=== PATIENT | female | born 1970 | race Caucasian/White ===

== ENCOUNTER 2023-06-21 22:02 | Emergency (ER) | payer BC, SELFPAY ==
--- NOTE | ~2023-06-21 | XR_ITS ---
XR chest 2V 06/21/2023 22:21 Indication: Shortness of breath. Procedure: 2 view chest Comparison: No prior studies for comparison. Findings: Bibasilar atelectasis. No focal pneumonia, edema, pleural effusion or pneumothorax. No acut e osseous abnormality. Impression: 1: Bibasilar atelectasis. Reviewed, dictated and finalized at location A. Impression: 1: Bibasilar atelectasis.
--- NOTE | ~2023-06-21 | CT_ITS ---
EXAMINATION: CT abdomen pelvis w con DATE: 06/22/2023 00:48 INDICATION: Diffuse abdominal pain TECHNIQUE: Computed tomography (CT) of the abdomen and pelvis was performed without intravenous contr ast. The dose-length product was 1362.22 mGy-cm. Automated exposure control and iterative reconstruct ion technique were employed. COMPARISON: None. FINDINGS: Lung bases unremarkable. Heart size normal. There is cirrhosis of the liver. There is ascit es. Status post cholecystectomy. There is a small fluid in fat-containing umbilical hernia containing fluid. The pancreas, adrenal glands and right kidney are unremarkable. There is nonobstructing left nephroli thiasis. No hydronephrosis. Mild diffuse subcutaneous edema. Mild retroperitoneal lymphadenopathy, li courtney reactive. There are multiple collateral vessels in the upper abdomen, consistent with portal hyp ertension, there is splenomegaly. IMPRESSION: 1. Cirrhosis with portal hypertension. 2: Large amount of ascites with diffuse subcutaneous edema. Reviewed, dictated and finalized at location A.
--- NOTE | 2023-06-21 22:03 | ECG_ITS ---
Measurements Intervals [place] Rate: 105 P: 53 MI: 186 QRS: -55 QRSD: 104 T: 58 QT: 383 QTc: 507 Interpretive Statements SINUS TACHYCARDIA LEFT ANTERIOR FASCICULAR BLOCK BASELINE WANDER- V6 ABNORMAL ECG NO PREVIOUS ECG AVAILABLE FOR COMPARISON Electronically Signed On 06-22-2023 7:39:42 CDT by Glen Woodruff D.O.
[2023-06-21 22:04] VITALS: BP 141/86; PULSE 118; RESP 22; TEMP 36.9; O2SAT 95
[2023-06-21 22:16] LABS: Basophils Absolute Auto 0.1 K/mm3 (0.0-0.1); Basophils Percent Auto 0.6 % (0.2-1.2); Eosinophils Absolute Auto 0.2 K/mm3 (0-0.3); Eosinophils Percent Auto 1.6 % (0-4.4); Hematocrit 36.3 % (37.0-47.0); Hemoglobin 11.6 g/dL (12.0-15.0); Immature Granulocyte Absolute 0.09 K/mm3 (0.00-0.031); Immature Granulocyte Percent A 0.7 % (0-0.5); Immature Platelet Fraction Pct 3.1 % (0.9-11.2); Lymphocytes Absolute Auto 1.86 K/mm3 (0.9-3.2); Lymphocytes Percent Auto 13.9 % (18.3-44.2); Mean Corpuscular Hemoglobin 35.7 pg (26-34); Mean Corpuscular Volume 111.7 fl (80-100); Mean Platelet Volume 9.8 fl (7.4-10.4); Monocytes Absolute Auto 2.1 K/mm3 (0.1-0.6); Monocytes Percent Auto 15.6 % (2.6-8.5); Neutrophils Percent Auto 67.6 % (45.5-73.1); Platelet Count Result 97 k/mm3 (150-375); Red Blood Count 3.25 M/mm3 (4.2-5.4); Red Cell Distribution Width 16.5 % (11.5-14.5); White Blood Count 13.4 K/mm3 (4.5-10.0)
[2023-06-21 22:25] LABS: Alanine Aminotransferase 38 U/L (6-35); Albumin Level 3.2 g/dL (3.5-5.1); Alkaline Phosphatase 127 U/L (38-126); Anion Gap 5 mmol/L (8-16); Aspartate Amino Transferase 67 U/L (14-36); Blood Urea Nitrogen 16 mg/dL (7-17); Calcium 8.5 mg/dL (8.4-10.2); Carbon Dioxide 29 mmol/L (22-30); Chloride 101 mmol/L (98-107); Estimated CRCL calculation 120 ml/min; Estimated Glomerular Filt Rate > 60; Glucose 126 mg/dL (65-110); Lipase 172 U/L (23-300); Potassium 3.1 mmol/L (3.4-5.0); Sodium 135 mmol/L (137-145)
[2023-06-21 22:32] LABS: Hypochromasia 1+; Platelet Estimate Decreased (Adequate)
[2023-06-21 22:33] LABS: Anisocytosis 1+; Schistocytes None Seen
[2023-06-21 22:50] LABS: Influenza A QL RT-PCR Negative (Negative); Influenza B QL RT-PCR Negative (Negative); RSV RNA, RT-PCR Negative (Negative); SARS-CoV-2 RNA PCR Negative (Negative)
[2023-06-22] MEDS: MORPHINE SULFATE (*CRX) 4 MG/ML INJ IV PUSH ×2 (00:20→02:27)
[2023-06-22] MEDS: ONDANSETRON INJ 4 MG/2 ML VIAL IV PUSH (00:20)
[2023-06-22 02:36] LABS: Appearance Peritoneal Fluid Clear (Clear); Color Peritoneal Fluid Yellow (Colorless); Nucleated Cells Peritoneal Flu 151 /uL (0-500); Source Peritoneal Fluid Peritoneal Fluid
[2023-06-22 02:37] LABS: RBC Peritoneal Fluid < 2000 /uL (0-100000)
--- NOTE | 2023-06-22 02:51 | ED.ABDPAIN ---
HPI - Abdominal Pain General Chief Complaint: Shortness of Breath/Dyspnea Stated Complaint: SOB, abd pain Time Seen by Provider: 06/21/23 23:42 History of Present Illness HPI narrative: This is a 53-year-old female, with history of BACON cirrhosis, who presents to the emergency department complaining of diffuse burning abdominal pain. The patient states has been going on for the past 2 days and is associated with gradual expansion of her abdomen and difficulty taking a deep breath. The patient denies associated fevers, rash or bleeding. Related Data Allergies Allergy/AdvReac Type Severity Reaction Status Date / Time amoxicillin Allergy Hives Verified 06/21/23 22:07 Review of Systems Review of Systems: CONSTITUTIONAL: Denies fever, chills, or sweats. CARDIOVASCULAR: Denies chest pain, palpitations, or edema. RESPIRATORY: Denies cough or dyspnea. GASTROINTESTINAL: Abdominal pain Denies nausea, vomiting, or diarrhea. GENITOURINARY: Denies dysuria or hematuria. SKIN: Denies rash or itching. MUSCULOSKELETAL: Denies back pain, joint pain, or myalgia. NEUROLOGIC: Denies headache, numbness, dizziness, or weakness. PSYCHIATRIC: Denies anxiety or depression. 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 Mildly jaundiced HEAD: Normocephalic, atraumatic. EYES: PERRLA and EOMI. Scleral icterus CHEST: Clear to auscultation. No respiratory distress. No wheezes rales or rhonchi HEART: Regular rate and rhythm. No murmur heard. Normal peripheral pulses. ABDOMEN: Soft, diffuse mild tenderness to palpation, without rebound or guarding, distended with a fluid wave, normal active bowel sounds. EXTREMITIES: Normal range of motion. No edema. SKIN: Warm, dry, no rash. NEURO: Alert and oriented x3. No focal deficit. Moving all 4 limbs spontaneously PSYCH: Normal mood and affect. Procedures Paracentesis Paracentesis #1: Paracentesis Date: 06/22/23 Paracentesis Time: 02:10 Time Out Performed: Yes Local Anesthetic: lidocaine 1% Amount of anesthesia used (mL): 10 Fluid: clear and sent to lab for analysis Post Procedure Exam: awake, alert and normal BP Patient Tolerated Procedure: well and no complications Complications: none Paracentesis Comment: Ultrasound was used to find a suitable pocket of fluid prior to beginning the procedure. Paracentesis #2: Paracentesis Date: 06/22/23 Paracentesis Time: 06:15 Time Out Performed: Yes Local Anesthetic: lidocaine 2% Amount of anesthesia used (mL): 10 Fluid: clear Post Procedure Exam: awake, alert and normal BP Patient Tolerated Procedure: well and no complications Complications: none Paracentesis Comment: Ultrasound was used to find a suitable pocket of fluid prior to beginning the procedure. Course Course Emergency Course: 06:27 - White blood cell count elevated at 13.4. Hemoglobin 11.6 with an unknown baseline. Platelets 97. Chemistries demonstrate mild hypokalemia with potassium of 3.1 and AST/ALT elevation of 67/38 but otherwise unremarkable. Patient tested negative for influenza, RSV and COVID. A diagnostic paracentesis was performed that was converted to a therapeutic paracentesis. Cell count was not concerning for SBP. Approximately 3700 mL of straw-colored peritoneal fluid were drained from the patient's abdomen with improvement of her symptoms. CT abdomen pelvis by STAT Rad interpretation dem
[2023-06-22 02:54] LABS: Lymphocytes Peritoneal Fluid 42 %; Macrophages Peritoneal Fluid 41 %; Mesothelial Cells Peritoneal Fluid 7 %; Neutrophils Peritoneal Fluid 10 % (0-25)
[2023-06-22 02:57] VITALS: BP 136/66; PULSE 95; RESP 16; O2SAT 93
[2023-06-22] MEDS: MORPHINE SULFATE (*CRX) 2 MG/ML INJ IV PUSH (04:50)
[2023-06-22] MEDS: ALBUMIN HUMAN 25% 12.5 GM/50ML 50 ML IVPB (06:38)
[2023-06-22 06:41] VITALS: BP 122/64; PULSE 78; RESP 15; O2SAT 95
[2023-06-22 07:32] VITALS: BP 142/80; PULSE 88; RESP 16; O2SAT 94
[2023-06-27 17:22] LABS: Lipase Peritoneal Fluid 14 U/L (<10)
[2023-06-29 22:43] LABS: Glucose Peritoneal Fluid 127 mg/dL; Total Protein Peritoneal Fluid <3.0 g/dL
== END 2023-06-22 07:33 | disposition home or self-care (01) ==
PROVIDERS: Emergency Provider Preventive Medicine Aerospace Medicine
DX: R18.8 Other ascites (principal); E87.6 Hypokalemia; R10.84 Generalized abdominal pain; Z20.822 Contact with and (suspected) exposure to COVID-19; K74.60 Unspecified cirrhosis of liver; K75.81 Nonalcoholic steatohepatitis (NASH); F17.200 Nicotine dependence, unspecified, uncomplicated
CPT/HCPCS: 36415; 49083; 71046; 74177; 80053; 82945; 83690; 84157; 85025; 85055; 87040; 87070; 87075; 87205; 87637; 89051; 93005; 96365; 96367; 96375; 96376; 99284; J0696; J2270; J2405; P9047; Q9967

== ENCOUNTER 2023-06-24 12:50 | Emergency (ER) | payer BC, SELFPAY ==
--- NOTE | ~2023-06-24 | CT_ITS ---
EXAMINATION: CT abdomen pelvis w con DATE: 06/24/2023 14:51 INDICATION: Constipation TECHNIQUE: Computed tomography (CT) of the abdomen and pelvis was performed with 100 mL Omnipaque-350 intravenous contrast. Automated exposure control and iterative reconstruction technique were employe d. The dose-length product was 1334.91 mGy-cm. COMPARISON: 06/22/2023 FINDINGS: Dependent atelectasis in the bilateral lower lobes. Heart size is normal. No pericardial or pleural e ffusion. Cholecystectomy clips the gallbladder fossa. There is a nodular liver surface consistent wit h cirrhosis. Splenomegaly along with recanalized umbilical vein and gastrosplenic and paraesophageal varices consistent with secondary portal venous hypertension. Moderate to large amount of ascites sca ttered throughout the abdomen and pelvis. Pancreas, bilateral adrenal glands and right kidney are nor mal. 7 mm nonobstructing stone at the upper pole of the left kidney. Bladder is normal. The uterus is not identified and has likely been surgically resected. Bilateral adnexa are unremarkable. No bowel obstruction. Normal gas-filled appendix. There is edematous wall thickening in the proximal colon whi ch could be due to hepatic colopathy or colitis. No bowel obstruction. Mild lumbar dextrocurvature. M oderate lower thoracic and mild to moderate lumbar spondylosis. A few scattered sclerotic bone island s in the pelvis and proximal femurs. IMPRESSION: 1. Cirrhosis moderate to large amount of likely secondary ascites and with splenomegaly and portosyst emic collaterals consistent with secondary portal venous hypertension. 2. Edematous wall thickening in the proximal colon most likely hepatic colopathy although differentia l includes colitis which could be either infectious, inflammatory or less likely ischemic in etiology . 2. Nonobstructing 7 mm left renal stone. Reviewed, dictated and finalized at location A. IMPRESSION: 1. Cirrhosis moderate to large amount of likely secondary ascites and with sple nomegaly and portosystemic collaterals consistent with secondary portal venous hypertension. 2. Edematous wall thickening in the proximal colon most likely hepatic colopath y although differential includes colitis which could be either infectious, infl ammatory or less likely ischemic in etiology. 2. Nonobstructing 7 mm left renal stone.
[2023-06-24 12:52] VITALS: BP 142/64; PULSE 99; RESP 20; TEMP 36.4; O2SAT 94
--- NOTE | 2023-06-24 12:56 | ED.ABDPAIN ---
HPI - Abdominal Pain General Chief Complaint: Abdominal Pain <Sandra Carlisle PA-C - Last Filed: 06/24/23 18:17> Stated Complaint: abd/back pain <Sandra Carlisle PA-C - Last Filed: 06/24/23 18:17> Time Seen by Provider: 06/24/23 12:50 <Sandra Carlisle PA-C - Last Filed: 06/24/23 18:17> Focused HPI: This is a 53-year-old female that presents to the ER for abdominal pain. Reports lower abdominal discomfort which has been going on for several months. Reports she has been having difficulty urinating and having bowel movements. Also reports she has had worsening swelling in her lower extremities. She does take diuretics for this. Denies chest pain or shortness of breath. GENERAL: Well-appearing, well-nourished, and in no acute distress. HEAD: Normocephalic, atraumatic. CHEST: Clear to auscultation. ?No respiratory distress. HEART: Regular rate and rhythm.? NEURO: ?Alert and oriented x3. EXTREMITIES: 1+ pitting edema to the bilateral lower extremities Patient screened in triage and initial orders placed.? ?Additional care and disposition to be based upon?diagnostic testing and treatment. <Sandra Carlisle PA-C - Last Filed: 06/24/23 18:17> History of Present Illness HPI narrative: 53-year-old female presenting emergency department for evaluation of abdominal pain. <Nelson Lowe MD - Last Filed: 06/24/23 19:23> Related Data Allergies/Adverse Reactions: Allergies Allergy/AdvReac Type Severity Reaction Status Date / Time amoxicillin Allergy Hives Verified 06/24/23 15:41 <Sandra Carlisle PA-C - Last Filed: 06/24/23 18:17> Review of Systems Review of Systems: CONSTITUTIONAL: Denies fever CARDIOVASCULAR: Denies chest pain RESPIRATORY: Denies dyspnea. GASTROINTESTINAL: Reports abdominal pain. Denies nausea, vomiting, or diarrhea. GENITOURINARY: Denies dysuria <Sandra Carlisle PA-C - Last Filed: 06/24/23 18:17> All systems reviewed & are unremarkable except as noted in HPI and below <Sandra Carlisle PA-C - Last Filed: 06/24/23 18:17> 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 HEAD: normocephalic, atraumatic. EYES: PERRLA/EOMI, conjunctivae clear. NOSE: Normal no drainage EARS:TMS clear with good light reflex. THROAT: Pharynx clear, no exudate. NECK: Supple. No adenopathy, no masses. RESPIRATORY: Airway patent, respirations nonlabored. Clear to auscultation bilaterally, no rales, rhonchi, wheezing. CARDIOVASCULAR: Regular rate and rhythm without murmurs rubs or gallops. ABDOMINAL: Soft, Ascites, normal bowel sounds, nontender MUSCULOSKELETAL: Moves all extremities. Strength/ROM intact, No edema, No calf tenderness. NEURO: Alert. Cranial nerves II through XII intact. grossly intact SKIN: Warm, dry. Normal Color <Nelson Lowe MD - Last Filed: 06/24/23 19:23> Course Course Emergency Course: patient was discharged home with antibiotics for treatment for colitis. <Nelson Lowe MD - Last Filed: 06/24/23 19:23> Vital Signs Vital signs: Vital Signs Temperature 97.6 F 06/24/23 12:52 Pulse Rate 99 06/24/23 12:52 Respiratory Rate 20 06/24/23 12:52 Blood Pressure 142/64 H 06/24/23 12:52 Pulse Oximetry 94 06/24/23 12:52 Oxyge
[2023-06-24 13:41] LABS: Alanine Aminotransferase 34 U/L (6-35); Albumin Level 3.2 g/dL (3.5-5.1); Alkaline Phosphatase 125 U/L (38-126); Anion Gap 5 mmol/L (4-12); Aspartate Amino Transferase 64 U/L (14-36); Bilirubin,Total 5.7 mg/dL (0.2-1.3); Blood Urea Nitrogen 11 mg/dL (7-17); Calcium 8.4 mg/dL (8.4-10.2); Carbon Dioxide 27 mmol/L (22-30); Chloride 101 mmol/L (98-107); Estimated CRCL calculation 143 ml/min; Estimated Glomerular Filt Rate > 60; Glucose 145 mg/dL (65-110); Lipase 171 U/L (23-300); Potassium 3.3 mmol/L (3.4-5.0); Sodium 133 mmol/L (137-145)
[2023-06-24 13:50] LABS: NT Pro B Type Natriuretic Pept 252 pg/mL (19.9-100)
[2023-06-24 14:03] LABS: Basophils Absolute Auto 0.1 K/mm3 (0.0-0.1); Basophils Percent Auto 0.8 % (0.2-1.2); Eosinophils Absolute Auto 0.2 K/mm3 (0-0.3); Hematocrit 35.9 % (37.0-47.0); Hemoglobin 11.4 g/dL (12.0-15.0); Immature Granulocyte Absolute 0.05 K/mm3 (0.00-0.031); Immature Granulocyte Percent A 0.5 % (0-0.5); Immature Platelet Fraction Pct 5.8 % (0.9-11.2); Lymphocytes Absolute Auto 1.36 K/mm3 (0.9-3.2); Lymphocytes Percent Auto 13.7 % (18.3-44.2); Mean Corpuscular HGB Conc 31.8 g/dl (32-36); Mean Corpuscular Hemoglobin 35.6 pg (26-34); Mean Corpuscular Volume 112.2 fl (80-100); Mean Platelet Volume 9.9 fl (7.4-10.4); Monocytes Absolute Auto 1.3 K/mm3 (0.1-0.6); Monocytes Percent Auto 13.4 % (2.6-8.5); Neutrophils Absolute Auto 6.9 K/mm3 (1.3-6.7); Neutrophils Percent Auto 69.6 % (45.5-73.1); Platelet Count Result 90 k/mm3 (150-375); Red Cell Distribution Width 16.9 % (11.5-14.5); White Blood Count 9.9 K/mm3 (4.5-10.0)
[2023-06-24 14:16] LABS: INR 1.6; Prothrombin Time 20.4 Seconds (11.1-14.7)
[2023-06-24 14:17] LABS: Partial Thromboplastin Time 38.5 Seconds (22.3-36.8)
[2023-06-24 15:17] LABS: Bacteria Urine Rare /hpf; Mucus Urine Present /lpf; Squamous Epithelial Cell Urine Many /hpf (Few); WBC Urine 0-5 /hpf (0-3)
[2023-06-24 15:20] LABS: Appearance Urine Sl Cloudy (Clear); Color Urine Orange (Yellow); pH Urine 5.5 (5.0-9.0)
[2023-06-24 15:21] LABS: Bilirubin Urine 2+ (Negative); Blood Urine 2+ (Negative); Glucose Urine UA Trace mg/dL (Negative); Ketones Urine Trace mg/dL (Negative); Nitrate Urine Positive (Negative); Protein Urine 1+ mg/dL (Negative); Specific Grav Ur 1.025 (1.001-1.035)
[2023-06-24 15:22] LABS: Add Urine Microscopic? YES; Leukocyte Esterase Ur Negative LEU/UL (Negative)
[2023-06-24] MEDS: HYDROmorphone HCL INJ (*CRX) 1 MG/ML SYR 0.5 MG IV PUSH (15:41)
[2023-06-24] MEDS: CIPROFLOXACIN 500 MG TAB PO (15:42)
[2023-06-24] MEDS: metroNIDAZOLE 500 MG TABLET PO (15:42)
[2023-06-24 16:10] VITALS: BP 128/62; PULSE 87; RESP 18; O2SAT 94
== END 2023-06-24 16:13 | disposition home or self-care (01) ==
LOC: ANHED 15:37
PROVIDERS: Physician Assistant; Emergency Provider Emergency Medicine
DX: R18.8 Other ascites (principal); K52.9 Noninfective gastroenteritis and colitis, unspecified; K74.69 Other cirrhosis of liver
CPT/HCPCS: 36415; 74177; 80053; 81001; 83690; 83880; 85025; 85055; 85610; 85730; 96374; 99284; A9270; J1170; Q9967

== ENCOUNTER 2023-06-26 17:52 | Inpatient (IN) | payer BC, SELFPAY ==
--- NOTE | ~2023-06-26 | US_ITS ---
EXAMINATION: US paracentesis abd w/image DATE: 07/02/2023 14:10 INDICATION: Ascites. TECHNIQUE: The procedure and its risks, benefits, and alternatives were discussed with the patient. P otential risks discussed included bleeding and infection. The skin was prepped and draped in sterile fashion. 1% lidocaine was used for local anesthesia. Under ultrasound guidance, a 5 Fr catheter with trochar was advanced into the ascites in the right lower quadrant. Fluid was aspirated. The catheter was removed, and a dressing was applied. There were no immediate complications. FINDINGS: Ultrasound images demonstrate ascites and the catheter within the fluid. IMPRESSION: 1. Successful ultrasound-guided paracentesis yielding 4650 mL of yellow fluid. Reviewed, dictated and finalized at location A.
--- NOTE | ~2023-06-26 | US_ITS ---
EXAMINATION: US paracentesis abd w/image DATE: 06/27/2023 16:50 INDICATION: Ascites. TECHNIQUE: The procedure and its risks, benefits, and alternatives were discussed with the patient. P otential risks discussed included bleeding and infection. The skin was prepped and draped in sterile fashion. 1% lidocaine was used for local anesthesia. Under ultrasound guidance, a 5 Fr catheter with trochar was advanced into the ascites in the right lower quadrant. Fluid was aspirated. The catheter was removed, and a dressing was applied. There were no immediate complications. FINDINGS: Ultrasound images demonstrate ascites and the catheter within the fluid. IMPRESSION: 1. Successful ultrasound-guided paracentesis yielding 3900 mL of yellow fluid. Reviewed, dictated and finalized at location A.
--- NOTE | ~2023-06-26 | CT_ITS ---
EXAMINATION: CT abdomen pelvis w con DATE: 06/26/2023 20:47 INDICATION: abdominal distention, ascites TECHNIQUE: Computed tomography (CT) of the abdomen and pelvis was performed with 100 mL Omnipaque-350 intravenous contrast. Automated exposure control and iterative reconstruction technique were employe d. The dose-length product was 1430.85 mGy-cm. COMPARISON: 06/24/2023. FINDINGS: Lower thorax: Unremarkable Liver: Nodular liver border. Biliary/Gallbladder: Gallbladder is absent. No bile duct dilation. Pancreas: No mass or duct dilation. Spleen: Enlarged. Adrenals:No mass. Kidneys: No suspicious mass, obstructing stone, or hydronephrosis. 7 mm nonobstructing left upper akash e calcification. GI tract: No small or large bowel dilation. Normal appendix. Diverticulosis without diverticulitis. Mesentery/Peritoneum: Moderate volume simple ascitic fluid. Upper abdominal varices. Retroperitoneum: No mass. Pelvis: Empty urinary bladder. Absent uterus. Normal bilateral ovaries.. Soft Tissues: Body wall edema. Bones: No acute osseous finding. IMPRESSION: Cirrhosis with portal hypertension. Moderate ascites. Interval resolution of the proximal colonic wal l edema. No new acute finding detected. Reviewed, dictated and finalized at location K. IMPRESSION: Cirrhosis with portal hypertension. Moderate ascites. Interval resolution of th e proximal colonic wall edema. No new acute finding detected.
--- NOTE | ~2023-06-26 | CT_ITS ---
EXAMINATION: CTA chest PE protocol DATE: 07/11/2023 09:49 INDICATION: Hypoxia. TECHNIQUE: Computed tomography angiography (CTA) of the chest was performed with 200 mL Omnipaque-350 intravenous contrast timed to evaluate the pulmonary arteries. Coronal maximum intensity projection 3D-reconstructions were created by the technologist. Automated exposure control and iterative reconst ruction technique were employed. The dose-length product was 1544.05 mGy-cm. COMPARISON: CT abdomen and pelvis 07/01/2023 FINDINGS: The lungs demonstrate mild atelectasis. There is smooth septal thickening in the inferior l ungs. There are patchy ground glass opacities in the lower lobes, right middle lobe, and lingula. No pleural effusion. The heart size is normal. No pericardial effusion. There is no pulmonary embolus. T here is mild mediastinal lymphadenopathy. There is a 2.0 cm nodule in left thyroid lobe. The liver de monstrates surface nodularity and hypertrophy of left lateral segment, consistent with cirrhosis. The re are changes of cholecystectomy. Paraesophageal varices are noted. There are is a paraumbilical por tacaval shunt. Ascites is noted. There is mild chronic anterior wedging of multiple thoracic vertebra l bodies. There is moderate thoracic spondylosis. IMPRESSION: 1. No pulmonary embolus. 2. Worsened diffuse lung disease, likely moderate pulmonary edema. Pneumonia cannot be excluded. 3. Cirrhosis of the liver with portal venous hypertension. 4. Ascites. 5. Mild mediastinal lymphadenopathy, likely reactive. 6. Thyroid nodule. Consider thyroid ultrasound for risk stratification. Reviewed, dictated and finalized at location A. IMPRESSION: 1. No pulmonary embolus. 2. Worsened diffuse lung disease, likely moderate pulmonary edema. Pneumonia ca nnot be excluded. 3. Cirrhosis of the liver with portal venous hypertension. 4. Ascites. 5. Mild mediastinal lymphadenopathy, likely reactive. 6. Thyroid nodule. Consider thyroid ultrasound for risk stratification.
--- NOTE | ~2023-06-26 | XR_ITS ---
XR chest 2V 07/10/2023 18:26 Indication: Hypoxia Procedure: PA and lateral views of the chest Comparison: Chest dated 07/05/2023 Findings: Cardiomegaly. Mild interstitial edema. Small pleural effusions. No pneumothorax. Impression: 1: Mild interstitial edema with small pleural effusions. Reviewed, dictated and finalized at location A. Impression: 1: Mild interstitial edema with small pleural effusions.
--- NOTE | ~2023-06-26 | US_ITS ---
EXAMINATION: US venous doppler [facility] DATE: 07/06/2023 12:20 INDICATION: swelling . TECHNIQUE: Grayscale images without and with compression and Doppler images of the bilateral lower ex tremity veins were obtained. COMPARISON: None FINDINGS: The right common femoral vein, profunda (deep) femoral vein, femoral vein, popliteal vein, peroneal v ein, posterior tibial veins, gastrocnemius vein, and greater saphenous vein are patent. Patient unable to tolerate transducer pressure over the left profunda (deep) femoral vein and left fe moral vein, no visible thrombus or abnormality on color Doppler in these vessels. The left common fem oral vein, popliteal vein, peroneal vein, posterior tibial veins, gastrocnemius vein, and greater sap henous vein are patent. IMPRESSION: Limited evaluation of the left profunda femoral and femoral veins. Otherwise patent bilateral lower e xtremity veins. Reviewed, dictated and finalized at location K. IMPRESSION: Limited evaluation of the left profunda femoral and femoral veins. Otherwise pa tent bilateral lower extremity veins.
--- NOTE | ~2023-06-26 | CT_ITS ---
EXAMINATION: CT abdomen pelvis w con DATE: 07/01/2023 13:28 INDICATION: Ascites. TECHNIQUE: Computed tomography (CT) of the abdomen and pelvis was performed with 100 mL Omnipaque 350 intravenous contrast. Automated exposure control and iterative reconstruction technique were employe d. The dose-length product was 1350.00 mGy-cm. COMPARISON: CT abdomen pelvis 06/26/2023 FINDINGS: The visualized portions of the lung bases demonstrate mild atelectasis. There is smooth sep jeanine thickening bilaterally, consistent mild pulmonary edema. No pleural effusion. The heart size is n ormal. No pericardial effusion. Paraesophageal varices are noted. The liver demonstrates hypertrophy of left lateral segment and surface nodularity, consistent with cirrhosis. There is a paraumbilical p ortacaval shunt. The spleen is mildly enlarged. There are changes of cholecystectomy. The pancreas, a drenal glands, and right kidney are normal. There is a parenchymal calcification in left kidney with focal cortical thinning. There are no dilated loops of bowel. The appendix is normal. There is a larg e volume of ascites. There is an umbilical hernia containing ascites. There is mild periportal lympha denopathy, likely reactive. Body wall edema is noted. There is moderate thoracic and lumbar spondylos is. IMPRESSION: 1. Cirrhosis of the liver with portal venous hypertension. 2. Large volume of ascites. 3. Mild pulmonary edema. 4. Umbilical hernia containing ascites. 5. Mild periportal lymphadenopathy, likely reactive. Reviewed, dictated and finalized at location A.
--- NOTE | ~2023-06-26 | XR_ITS ---
EXAMINATION: XR chest 1V portable DATE: 07/13/2023 05:29 INDICATION: Pulmonary edema TECHNIQUE: frontal view of the chest was obtained. COMPARISON: Chest radiograph dated 07/10/2023 FINDINGS: Persistent mild increased interstitial pattern and some peribronchial cuffing in the bilateral mid to lower lung zones consistent with mild pulmonary edema. No pleural effusion or pneumothorax. Heart si ze is normal. IMPRESSION: 1. Mild pulmonary edema versus less likely pneumonia in the bilateral mid and lower lung zones. Reviewed, dictated and finalized at location A. IMPRESSION: 1. Mild pulmonary edema versus less likely pneumonia in the bilateral mid and l ower lung zones.
--- NOTE | ~2023-06-26 | XR_ITS ---
EXAMINATION: XR chest 1V portable Exam Date/Time: 07/05/2023 13:35 CDT HISTORY: Cough fever Comparison: 06/22/2023. RESULT: Lines, tubes, and devices: None. Lungs and pleura: Moderate diffuse reticulonodular opacities. Streaky bibasilar scar/atelectasis. Cardiomediastinal silhouette: Stable. Other: No acute osseous or upper abdominal finding. IMPRESSION: Pulmonary opacities may represent moderate interstitial edema or respiratory bronchiolitis. Reviewed, dictated and finalized at location K. IMPRESSION: Pulmonary opacities may represent moderate interstitial edema or respiratory br onchiolitis.
--- NOTE | ~2023-06-26 | US_ITS ---
EXAMINATION: US paracentesis abd w/image DATE: 07/09/2023 11:29 INDICATION: Ascites. TECHNIQUE: The procedure and its risks, benefits, and alternatives were discussed with the patient. P otential risks discussed included bleeding and infection. The skin was prepped and draped in sterile fashion. 1% lidocaine was used for local anesthesia. Under ultrasound guidance, a 5 Fr catheter with trochar was advanced into the ascites in the left lower quadrant. Fluid was aspirated. The catheter w as removed, and a dressing was applied. There were no immediate complications. FINDINGS: Ultrasound images demonstrate ascites and the catheter within the fluid. IMPRESSION: 1. Successful ultrasound-guided paracentesis yielding 3000 mL of yellow fluid. Reviewed, dictated and finalized at location A.
[2023-06-26 17:57] VITALS: BP 115/60; PULSE 108; RESP 20; TEMP 37.7; O2SAT 95
--- NOTE | 2023-06-26 18:08 | ED.ABDPAIN ---
HPI - Abdominal Pain General Chief Complaint: Abdominal Pain <AISHA Holden Last Filed: 06/26/23 18:09> Stated Complaint: need to have my stomach drained <AISHA Holden Last Filed: 06/26/23 18:09> Time Seen by Provider: 06/26/23 20:05 <AISHA Holden Last Filed: 06/26/23 18:09> Focused HPI: 53-year-old female with reported history of cirrhosis and CKD presents to emergency department for abdominal swelling and distention. States she recently had a paracentesis performed at our hospital within the past week. States since then she has had increasing distention in her abdomen is concerned she needs another paracentesis. She was contacted by her primary care provider advised to come to the ER for further evaluation. She reports swelling in her legs at of increased from her baseline as well as mild exertional dyspnea. she is reporting abdominal tightness back pain which she attributes to the fluid pressing into her back. Denies nausea, vomiting. GENERAL: Well-appearing, well-nourished, and in no acute distress. HEAD: Normocephalic, atraumatic. CHEST: Clear to auscultation. ?No respiratory distress. ABD: Distended abdomen with positive fluid wave. No focal tenderness. No CVA tenderness. HEART: Regular rate and rhythm.? NEURO: ?Alert and oriented x3. Patient screened in triage and initial orders placed.? ?Additional care and disposition to be based upon?diagnostic testing and treatment. <AISHA Holden Last Filed: 06/26/23 18:09> Related Data Home Medications: Home Medications Medication Instructions Recorded Confirmed furosemide 20 mg tablet 20 mg PO DAILY 06/27/23 06/27/23 levothyroxine 200 mcg tablet 200 mcg PO DAILY 06/27/23 06/27/23 <AISHA Holden Last Filed: 06/26/23 18:09> Allergies/Adverse Reactions: Allergies Allergy/AdvReac Type Severity Reaction Status Date / Time amoxicillin Allergy Hives Verified 06/26/23 23:02 Penicillins Allergy Hives Verified 06/26/23 23:02 <AISHA Holden Last Filed: 06/26/23 18:09> Review of Systems Review of Systems: All systems as dictated in HPI <Shmuel Flores PA-C - Last Filed: 06/27/23 02:42> [facility] Past Medical History Medical History: Medical History 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 <Jamee Obrien PA-C - Last Filed: 06/26/23 18:09> Surgical History Surgical History: Surgical History No significant past surgical history <Jamee Obrien PA-C - Last Filed: 06/26/23 18:09> Social History Social History: Social History Years smoked: 15 Smoking status: Current every day smoker Tobacco type: cigarettes Alcohol intake: former Substance use: never Do You Feel Safe in your Home?: Yes Lack of Transportation: No Lack of Food: Sometimes True Current Housing: I Have Housing Concerned About Future Housing: No Difficulty Paying Gas/Electric Bills: No Difficulty Paying for Meds: No Currently Unemployed: No Education: High School Diploma/GED Difficulty w/ Childcare or Family Care: No Spiritual care concerns: No <Jamee Obrien PA-C - Last Filed: 06/26/23 18:09> Exam Narrative: GENERAL: Well-appearing, well-nourished, and in no acute distress. HEAD: Normocephalic, atraumatic. EYES: PERRLA and EOMI. Scleral icterus present ENT: Nares clear, no rhinorrhea or epistaxis. Mucous membranes moist. Oropharynx without tonsillar hypertrophy exudate or other lesions. NECK: Supple. No adenopathy or masses. CHEST: No respiratory distress. Clear to auscultation. No wheezes rales or rhonchi HEART: Regular rate and rhythm. No murmur heard. Normal peripheral pulses. ABDOMEN: Marked abdominal distension noted. No rigidity, guarding or tende
[2023-06-26 20:03] LABS: Basophils Absolute Auto 0.1 K/mm3 (0.0-0.1); Basophils Percent Auto 0.8 % (0.2-1.2); Eosinophils Absolute Auto 0.2 K/mm3 (0-0.3); Eosinophils Percent Auto 1.8 % (0-4.4); Hematocrit 36.8 % (37.0-47.0); Immature Granulocyte Absolute 0.03 K/mm3 (0.00-0.031); Immature Granulocyte Percent A 0.3 % (0-0.5); Immature Platelet Fraction Pct 2.9 % (0.9-11.2); Lymphocytes Absolute Auto 1.44 K/mm3 (0.9-3.2); Lymphocytes Percent Auto 14.7 % (18.3-44.2); Mean Corpuscular HGB Conc 32.6 g/dl (32-36); Mean Corpuscular Hemoglobin 36.3 pg (26-34); Mean Corpuscular Volume 111.2 fl (80-100); Monocytes Absolute Auto 1.1 K/mm3 (0.1-0.6); Neutrophils Percent Auto 71.4 % (45.5-73.1); Platelet Count Result 100 k/mm3 (150-375); Red Blood Count 3.31 M/mm3 (4.2-5.4); White Blood Count 9.8 K/mm3 (4.5-10.0)
[2023-06-26 20:18] LABS: Anisocytosis 1+; Macrocytosis 1+ (NORMAL); Platelet Estimate Decreased (Adequate)
[2023-06-26 20:19] LABS: Ovalocytes 1+; Schistocytes None Seen
[2023-06-26 20:21] LABS: Alanine Aminotransferase 33 U/L (6-35); Albumin Level 3.3 g/dL (3.5-5.1); Alkaline Phosphatase 119 U/L (38-126); Anion Gap 6 mmol/L (4-12); Aspartate Amino Transferase 61 U/L (14-36); Bilirubin,Total 5.5 mg/dL (0.2-1.3); Blood Urea Nitrogen 11 mg/dL (7-17); Calcium 8.6 mg/dL (8.4-10.2); Carbon Dioxide 27 mmol/L (22-30); Chloride 103 mmol/L (98-107); Estimated CRCL calculation 120 ml/min; Estimated Glomerular Filt Rate > 60; Glucose 107 mg/dL (65-110); Lipase 197 U/L (23-300); Sodium 136 mmol/L (137-145)
[2023-06-26 21:08] VITALS: BP 130/72; PULSE 95; RESP 18; O2SAT 95
[2023-06-26 21:20] LABS: Appearance Urine Cloudy (Clear); Bacteria Urine None Seen /hpf; Bilirubin Urine 2+ (Negative); Blood Urine 2+ (Negative); Glucose Urine UA Negative (Negative); Ketones Urine Negative (Negative); Leukocyte Esterase Ur 2+ LEU/UL (Negative); Nitrate Urine Positive (Negative); Non Pathogenic Casts 0-2; Protein Urine 1+ mg/dL (Negative); Squamous Epithelial Cell Urine Few /hpf (Few)
[2023-06-26 21:21] LABS: Need Manual Microscopic Reviewed
[2023-06-26 21:23] LABS: Color Urine Amber (Yellow); Specific Grav Ur 1.034 (1.001-1.035)
[2023-06-26 21:43] LABS: Add Urine Microscopic? YES
--- NOTE | 2023-06-26 22:46 | PC.NURSE ---
Patient requesting pain medication. Provider aware.
[2023-06-26] MEDS: KETOROLAC 15 MG/ML VIAL (*BKC) IV PUSH (23:01)
[2023-06-26] MEDS: POTASSIUM CHLORIDE 20 MEQ ER TABLET 40 MEQ PO (23:01)
[2023-06-26 23:53] LABS: INR 1.5; Partial Thromboplastin Time 38.3 Seconds (22.3-36.8); Prothrombin Time 19.1 Seconds (11.1-14.7)
[2023-06-27 00:36] VITALS: BMI 39.8
[2023-06-27 00:41] VITALS: BP 121/67; PULSE 95; RESP 20; TEMP 36.7; O2SAT 96
[2023-06-27 00:42] VITALS: BMI 39.8
--- NOTE | 2023-06-27 00:42 | PC.NURSE ---
This patient, Nasreen Orozco, was admitted to [facility] Room 314-02. Patient/family oriented to hospital policies and general routines including ID bracelet, bed and alarms, visiting hours, pain management, procedures, bathroom and other care routines, personal items, smoking policy, room service/diet, and visiting hours. Information on how to activate the Rapid Response Team has been discussed. Patient/Family are encouraged to report perceived risks to care and to ask questions if they do not understand what they are told or what they should do.
[2023-06-27] MEDS: ACETAMINOPHEN 325 MG TABLET 650 MG PO ×2 (01:13→21:10)
[2023-06-27 04:56] VITALS: BP 109/58; PULSE 90; RESP 18; TEMP 36.7; O2SAT 94
[2023-06-27] MEDS: POTASSIUM CHLORIDE INJ 40 MEQ in SODIUM CHLORIDE 0.9% IV 500 ML 130 MEQ IVPB (11:29)
[2023-06-27 14:00] VITALS: BP 112/63; PULSE 87; RESP 16; TEMP 36.2; O2SAT 93
[2023-06-27] MEDS: HYDROmorphone HCL INJ (*CRX) 1 MG/ML SYR 0.5 MG IV PUSH (14:15)
--- NOTE | 2023-06-27 15:30 | PM.IMHP ---
H&P: HPI History of Present Illness Date/Time: 06/27/23 09:51 Chief Complaint: Patient came to the ER for drainage of worsening ascites Narrative: 53 years old obese female with cirrhosis of liver, portal hypertension and recurrent ascites came to the ER yesterday complaining of abdominal swelling and distention. She recently had paracenteses done in our hospital. She is complaining of swelling in the legs as well as abdominal tightness and back pain which she attributes to the fluid pressing into her back. She contacted her PCP who advised her to come to the ER for evaluation. Workup was done in the ER which showed ascites as well as UTI and hypokalemia. She is being admitted for ultrasound guided paracentesis, IV antibiotics for UTI and potassium replacement. Review of Systems Review of Systems: She denies any palpitations, fever rigor chills, nausea vomiting, dizziness, headaches or loss of conscious All systems reviewed & are unremarkable except as noted in HPI and below PMFSH Past Medical History Medical History (Updated 06/27/23 @ 15:53 by Tex Barnes MD) 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 Nicotine dependence, cigarettes, with other nicotine-induced disorders Surgical History Surgical History No significant past surgical history Social History Social History Years smoked: 15 Smoking status: Current every day smoker Tobacco type: cigarettes Alcohol intake: former Substance use: never Do You Feel Safe in your Home?: Yes Lack of Transportation: No Lack of Food: Sometimes True Current Housing: I Have Housing Concerned About Future Housing: No Difficulty Paying Gas/Electric Bills: No Difficulty Paying for Meds: No Currently Unemployed: No Education: High School Diploma/GED Difficulty w/ Childcare or Family Care: No Spiritual care concerns: No Meds Home Medications and Allergies Home Medications Medication Instructions Recorded Confirmed Type ciprofloxacin HCl 500 mg tablet 500 mg PO Q12H #14 tabs 06/24/23 06/27/23 Rx (Cipro) metronidazole 500 mg tablet 500 mg PO Q12H 7 days #14 tabs 06/24/23 06/27/23 Rx furosemide 20 mg tablet 20 mg PO DAILY 06/27/23 06/27/23 History levothyroxine 200 mcg tablet 200 mcg PO DAILY 06/27/23 06/27/23 History Allergies Allergy/AdvReac Type Severity Reaction Status Date / Time amoxicillin Allergy Hives Verified 06/26/23 23:02 Penicillins Allergy Hives Verified 06/26/23 23:02 Vital Signs Vital Signs - 24 hr 06/26/23 17:57 06/26/23 21:08 06/27/23 00:41 Temperature 37.7 C H 36.7 C Pulse Rate 108 H 95 95 Respiratory Rate 20 18 20 Blood Pressure 115/60 130/72 121/67 Pulse Oximetry 95 95 96 Oxygen Delivery Room Air 06/27/23 02:34 06/27/23 04:56 06/27/23 08:00 Temperature 36.7 C Pulse Rate 90 Respiratory Rate 18 Blood Pressure 109/58 L Pulse Oximetry 94 Oxygen Delivery Room Air Room Air 06/27/23 14:00 Temperature 36.2 C L Pulse Rate 87 Respiratory Rate 16 Blood Pressure 112/63 Pulse Oximetry 93 Oxygen Delivery Exam Narrative: PHYSICAL EXAMINATION: Vital signs: Please see the chart General physical exam: Obese female, lying in bed, uncooperative with exam, awaiting call for paracenteses Head/eyes: Atraumatic, EOMI, PERRLA ENT: Moist mucous membranes, nasal passages clear Neck: Supple, full range of motion, trachea midline CVS: S1 + S2, regular rate and rhythm, no murmurs Respiratory: Bilaterally decreased air entry in both lung stark, mild B/L crackles, symmetric chest expansion, no distress Abdomen: Soft, ++ distended, non-tender, bowel sounds +ve, no organomegaly Extremities: No clubbing, no cyanosis, +1 bilateral pitting edema, no calf tenderness Musculoskeletal: Moves all, adequate range of motion, no muscle spasms Skin: Warm, dry, no jaundice, no cyanosis Neurological: Awake, alert
[2023-06-27 20:53] LABS: Potassium 3.2 mmol/L (3.4-5.0)
[2023-06-27 21:43] VITALS: BP 113/52; PULSE 92; RESP 18; TEMP 36.4; O2SAT 95
[2023-06-28 05:08] VITALS: BP 107/66; PULSE 87; RESP 18; TEMP 36.3; O2SAT 92
[2023-06-28] MEDS: LEVOTHYROXINE SODIUM 100 MCG TABLET 200 MCG PO (05:45)
[2023-06-28 07:10] LABS: Basophils Absolute Auto 0.1 K/mm3 (0.0-0.1); Basophils Percent Auto 1.1 % (0.2-1.2); Eosinophils Absolute Auto 0.3 K/mm3 (0-0.3); Eosinophils Percent Auto 3.7 % (0-4.4); Hematocrit 31.9 % (37.0-47.0); Hemoglobin 10.1 g/dL (12.0-15.0); Immature Granulocyte Absolute 0.04 K/mm3 (0.00-0.031); Immature Granulocyte Percent A 0.5 % (0-0.5); Immature Platelet Fraction Pct 2.4 % (0.9-11.2); Lymphocytes Absolute Auto 1.76 K/mm3 (0.9-3.2); Lymphocytes Percent Auto 21.7 % (18.3-44.2); Mean Corpuscular HGB Conc 31.7 g/dl (32-36); Mean Corpuscular Hemoglobin 35.3 pg (26-34); Mean Corpuscular Volume 111.5 fl (80-100); Mean Platelet Volume 9.9 fl (7.4-10.4); Neutrophils Absolute Auto 4.9 K/mm3 (1.3-6.7); Platelet Count Result 91 k/mm3 (150-375); Red Blood Count 2.86 M/mm3 (4.2-5.4); Red Cell Distribution Width 16.7 % (11.5-14.5); White Blood Count 8.1 K/mm3 (4.5-10.0)
[2023-06-28 07:12] LABS: Anion Gap 2 mmol/L (4-12); Blood Urea Nitrogen 12 mg/dL (7-17); Calcium 7.8 mg/dL (8.4-10.2); Carbon Dioxide 26 mmol/L (22-30); Chloride 104 mmol/L (98-107); Estimated CRCL calculation 142 ml/min; Estimated Glomerular Filt Rate > 60; Glucose 102 mg/dL (65-110); Phosphorus 3.3 mg/dL (2.5-4.5); Potassium 3.1 mmol/L (3.4-5.0); Sodium 132 mmol/L (137-145)
[2023-06-28 08:35] LABS: Anisocytosis 1+; Macrocytosis 1+ (NORMAL); Platelet Estimate Slightly Decreased (Adequate)
[2023-06-28 08:36] LABS: Schistocytes None Seen
[2023-06-28] MEDS: FUROSEMIDE 20 MG TABLET PO (09:53)
[2023-06-28 10:38] VITALS: O2SAT 90
--- NOTE | 2023-06-28 13:56 | PM.IMPN ---
Progress Note: A&P Assessment and Plan (1) Cirrhosis of liver: Code(s): K74.60 - Unspecified cirrhosis of liver Status: Acute Assessment and Plan: Stable, had a paracentesis done. Will start spironolactone Monitor closely (2) Hypokalemia: Code(s): E87.6 - Hypokalemia Status: Inactive Assessment and Plan: Replace and monitor (3) Obesity: Code(s): E66.9 - Obesity, unspecified Status: Acute Assessment and Plan: Diet and exercise instructions given to patient (4) Tobacco abuse counseling: Code(s): Z71.6 - Tobacco abuse counseling Status: Acute Assessment and Plan: Counseling and advised to quit smoking Plan Patient had paracentesis done yesterday. Will monitor closely. Start spironolactone. Replace potassium and monitor closely. Code status full DVT prophylaxis ordered. Subjective Date/time seen: 06/28/23 13:56 Interval history: Patient was seen during the morning rounds today. Patient had paracentesis done. Feeling slightly better. Decreased shortness of breath. , no chest Pain. No abdominal pain, nausea, no vomiting. Mood stable Review of Systems Review of Systems: She denies any palpitations, fever rigor chills, nausea vomiting, dizziness, headaches or loss of conscious All systems reviewed & are unremarkable except as noted in HPI and below Exam Narrative: PHYSICAL EXAMINATION: Vital signs: Please see the chart General physical exam: Obese female, lying in bed, uncooperative with exam, awaiting call for paracenteses Head/eyes: Atraumatic, EOMI, PERRLA ENT: Moist mucous membranes, nasal passages clear Neck: Supple, full range of motion, trachea midline CVS: S1 + S2, regular rate and rhythm, no murmurs Respiratory: Bilaterally decreased air entry in both lung stark, mild B/L crackles, symmetric chest expansion, no distress Abdomen: Soft, ++ distended, non-tender, bowel sounds +ve, no organomegaly Extremities: No clubbing, no cyanosis, +1 bilateral pitting edema, no calf tenderness Musculoskeletal: Moves all, adequate range of motion, no muscle spasms Skin: Warm, dry, no jaundice, no cyanosis Neurological: Awake, alert, oriented x 3, cranial nerves II-XII intact, no focal neurological deficits Psychiatric: Normal mood, non suicidal Objective Data Vital Signs Vital Signs: Vital Signs - 24 hr 06/27/23 14:00 06/27/23 21:43 06/27/23 20:00 Temperature 36.2 C L 36.4 C L Pulse Rate 87 92 Respiratory Rate 16 18 Blood Pressure 112/63 113/52 L Pulse Oximetry 93 95 Oxygen Delivery Room Air 06/28/23 05:08 06/28/23 09:00 06/28/23 10:38 Temperature 36.3 C L Pulse Rate 87 Respiratory Rate 18 Blood Pressure 107/66 Pulse Oximetry 92 90 Oxygen Delivery Room Air Room Air Intake/Output Intake/Output: Intake & Output 06/25/23 06/26/23 06/27/23 06/28/23 23:59 23:59 23:59 23:59 Intake Total 50 2226 880 Output Total 4000 100 Balance 50 -1424 780 Meds/Results Medications: Active Medications Generic Name Dose Route Start Last Admin Trade Name Freq PRN Reason Stop Dose Admin Acetaminophen 650 mg 06/26/23 22:57 06/27/23 21:10 Acetaminophen 325 Mg Tablet PO 650 mg Q4H PRN Administration Mild Pain (1-3) or Fever Al Hydrox/Mg Hydrox/Simethicone 30 ml 06/27/23 15:48 Mag Hydrox/Al Hydrox/Simeth 30 Ml Udc PO QID PRN Dyspepsia Enoxaparin Sodium 40 mg 06/28/23 09:00 06/28/23 09:54 Enoxaparin 40 Mg/0.4 Ml Syringe SUB-Q Not Given DAILY LENNY Ceftriaxone Sodium 1 gm in 50 mls @ 100 mls/hr 06/27/23 16:00 06/27/23 16:45 Rocephin 1 Gm/Ns 50 Ml IVPB 07/02/23 16:29 Infused Q24H LENNY Infusion Levothyroxine Sodium 200 mcg 06/28/23 06:30 06/28/23 05:45 Levothyroxine Sodium 100 Mcg Tablet PO 200 mcg DAILY@0630 LENNY Administration Ondansetron HCl 4 mg 06/26/23 22:57 Ondansetron Inj 4 Mg/2 Ml Vial IV PUSH Q4H PRN Nausea P
[2023-06-28 14:35] VITALS: BP 113/51; PULSE 86; RESP 17; TEMP 36.9; O2SAT 98
[2023-06-28] MEDS: POTASSIUM CHLORIDE 20 MEQ ER TABLET 40 MEQ PO (17:46)
[2023-06-28] MEDS: SPIRONOLACTONE 50 MG TABLET PO (17:47)
[2023-06-28 17:57] VITALS: TEMP 37.1
[2023-06-28 21:18] VITALS: BP 115/60; PULSE 87; RESP 20; TEMP 37.1; O2SAT 95
[2023-06-29] MEDS: LEVOTHYROXINE SODIUM 100 MCG TABLET 200 MCG PO (06:25)
[2023-06-29 06:37] VITALS: BP 124/56; PULSE 85; RESP 20; TEMP 36.4; O2SAT 94
[2023-06-29 07:12] LABS: Basophils Absolute Auto 0.1 K/mm3 (0.0-0.1); Basophils Percent Auto 1.2 % (0.2-1.2); Eosinophils Absolute Auto 0.3 K/mm3 (0-0.3); Eosinophils Percent Auto 3.7 % (0-4.4); Hematocrit 31.3 % (37.0-47.0); Hemoglobin 10.1 g/dL (12.0-15.0); Immature Granulocyte Absolute 0.04 K/mm3 (0.00-0.031); Immature Granulocyte Percent A 0.5 % (0-0.5); Immature Platelet Fraction Pct 2.3 % (0.9-11.2); Lymphocytes Absolute Auto 1.78 K/mm3 (0.9-3.2); Lymphocytes Percent Auto 22.8 % (18.3-44.2); Mean Corpuscular HGB Conc 32.3 g/dl (32-36); Mean Corpuscular Hemoglobin 35.8 pg (26-34); Mean Platelet Volume 10.2 fl (7.4-10.4); Monocytes Absolute Auto 0.9 K/mm3 (0.1-0.6); Monocytes Percent Auto 11.9 % (2.6-8.5); Neutrophils Absolute Auto 4.7 K/mm3 (1.3-6.7); Neutrophils Percent Auto 59.9 % (45.5-73.1); Platelet Count Result 92 k/mm3 (150-375); Red Blood Count 2.82 M/mm3 (4.2-5.4); Red Cell Distribution Width 16.7 % (11.5-14.5); White Blood Count 7.8 K/mm3 (4.5-10.0)
[2023-06-29 07:19] LABS: Alanine Aminotransferase 24 U/L (6-35); Albumin Level 2.4 g/dL (3.5-5.1); Alkaline Phosphatase 104 U/L (38-126); Anion Gap 3 mmol/L (4-12); Aspartate Amino Transferase 44 U/L (14-36); Bilirubin,Total 4.3 mg/dL (0.2-1.3); Blood Urea Nitrogen 9 mg/dL (7-17); Calcium 7.6 mg/dL (8.4-10.2); Carbon Dioxide 24 mmol/L (22-30); Chloride 105 mmol/L (98-107); Estimated CRCL calculation 121 ml/min; Estimated Glomerular Filt Rate > 60; Glucose 89 mg/dL (65-110); Potassium 3.5 mmol/L (3.4-5.0); Sodium 132 mmol/L (137-145)
[2023-06-29 08:40] LABS: Platelet Estimate Slightly Decreased (Adequate); Smudge Cells PRESENT
[2023-06-29 08:44] LABS: Anisocytosis 1+; Schistocytes None Seen
[2023-06-29] MEDS: SPIRONOLACTONE 50 MG TABLET PO (09:14)
--- NOTE | 2023-06-29 12:40 | PM.IMPN ---
Progress Note: A&P Assessment and Plan (1) Cirrhosis of liver: Code(s): K74.60 - Unspecified cirrhosis of liver Status: Acute Assessment and Plan: Stable, had a paracentesis done. Will start spironolactone Monitor closely (2) Hypokalemia: Code(s): E87.6 - Hypokalemia Status: Inactive Assessment and Plan: Resolved. (3) Obesity: Code(s): E66.9 - Obesity, unspecified Status: Acute Assessment and Plan: Diet and exercise instructions given to patient (4) Tobacco abuse counseling: Code(s): Z71.6 - Tobacco abuse counseling Status: Acute Assessment and Plan: Counseling and advised to quit smoking Plan Patient had paracentesis done yesterday. Will monitor closely. Start spironolactone. Replace potassium and monitor closely. Code status full DVT prophylaxis ordered. Subjective Date/time seen: 06/29/23 12:40 Interval history: Patient was seen during the morning rounds today. Patient had paracentesis done. No new overnight events. Feeling slightly better. Decreased shortness of breath. , no chest Pain. No abdominal pain, nausea, no vomiting. Mood stable Review of Systems Review of Systems: She denies any palpitations, fever rigor chills, nausea vomiting, dizziness, headaches or loss of conscious All systems reviewed & are unremarkable except as noted in HPI and below Exam Narrative: PHYSICAL EXAMINATION: Vital signs: Please see the chart General physical exam: Obese female, lying in bed, uncooperative with exam, awaiting call for paracenteses Head/eyes: Atraumatic, EOMI, PERRLA ENT: Moist mucous membranes, nasal passages clear Neck: Supple, full range of motion, trachea midline CVS: S1 + S2, regular rate and rhythm, no murmurs Respiratory: Bilaterally decreased air entry in both lung stark, mild B/L crackles, symmetric chest expansion, no distress Abdomen: Soft, ++ distended, non-tender, bowel sounds +ve, no organomegaly Extremities: No clubbing, no cyanosis, +1 bilateral pitting edema, no calf tenderness Musculoskeletal: Moves all, adequate range of motion, no muscle spasms Skin: Warm, dry, no jaundice, no cyanosis Neurological: Awake, alert, oriented x 3, cranial nerves II-XII intact, no focal neurological deficits Psychiatric: Normal mood, non suicidal Objective Data Vital Signs Vital Signs: Vital Signs - 24 hr 06/28/23 14:35 06/28/23 17:57 06/28/23 20:00 Temperature 36.9 C 37.1 C Pulse Rate 86 Respiratory Rate 17 Blood Pressure 113/51 L Pulse Oximetry 98 Oxygen Delivery Room Air 06/28/23 21:18 06/29/23 06:37 Temperature 37.1 C 36.4 C L Pulse Rate 87 85 Respiratory Rate 20 20 Blood Pressure 115/60 124/56 L Pulse Oximetry 95 94 Oxygen Delivery Intake/Output Intake/Output: Intake & Output 06/26/23 06/27/23 06/28/23 06/29/23 23:59 23:59 23:59 23:59 Intake Total 50 2226 2150 684 Output Total 4000 200 Balance 50 -1774 1950 684 Meds/Results Medications: Active Medications Generic Name Dose Route Start Last Admin Trade Name Freq PRN Reason Stop Dose Admin Acetaminophen 650 mg 06/26/23 22:57 06/27/23 21:10 Acetaminophen 325 Mg Tablet PO 650 mg Q4H PRN Administration Mild Pain (1-3) or Fever Al Hydrox/Mg Hydrox/Simethicone 30 ml 06/27/23 15:48 Mag Hydrox/Al Hydrox/Simeth 30 Ml Udc PO QID PRN Dyspepsia Enoxaparin Sodium 40 mg 06/28/23 09:00 06/29/23 09:19 Enoxaparin 40 Mg/0.4 Ml Syringe SUB-Q Not Given DAILY [facility] Levothyroxine Sodium 200 mcg 06/28/23 06:30 06/29/23 06:25 Levothyroxine Sodium 100 Mcg Tablet PO 200 mcg DAILY@0630 LENNY Administration Ondansetron HCl 4 mg 06/26/23 22:57 Ondansetron Inj 4 Mg/2 Ml Vial IV PUSH Q4H PRN Nausea Spironolactone 50 mg 06/28/23 17:00 06/29/23 09:14 Spironolactone 50 Mg Tablet PO 50 mg BID LENNY Administration Radiology Results: ITS Impressions Ab
[2023-06-29 14:09] VITALS: BP 104/55; PULSE 88; RESP 17; TEMP 36.8; O2SAT 97
[2023-06-29] MEDS: diphenhydrAMINE HCl CAP 25 MG CAPSULE 50 MG PO (14:23)
[2023-06-30] MEDS: traMADol HCL (*CRX) 25 MG TABLET PO (00:44)
[2023-06-30] MEDS: LEVOTHYROXINE SODIUM 100 MCG TABLET 200 MCG PO (06:53)
[2023-06-30 07:25] LABS: Basophils Absolute Auto 0.1 K/mm3 (0.0-0.1); Basophils Percent Auto 1.1 % (0.2-1.2); Eosinophils Absolute Auto 0.3 K/mm3 (0-0.3); Eosinophils Percent Auto 3.9 % (0-4.4); Hematocrit 30.9 % (37.0-47.0); Immature Granulocyte Absolute 0.03 K/mm3 (0.00-0.031); Immature Granulocyte Percent A 0.4 % (0-0.5); Lymphocytes Absolute Auto 2.14 K/mm3 (0.9-3.2); Lymphocytes Percent Auto 26.1 % (18.3-44.2); Mean Corpuscular HGB Conc 32.4 g/dl (32-36); Mean Corpuscular Hemoglobin 35.7 pg (26-34); Mean Corpuscular Volume 110.4 fl (80-100); Mean Platelet Volume 9.8 fl (7.4-10.4); Monocytes Absolute Auto 1.1 K/mm3 (0.1-0.6); Monocytes Percent Auto 13.4 % (2.6-8.5); Neutrophils Absolute Auto 4.5 K/mm3 (1.3-6.7); Neutrophils Percent Auto 55.1 % (45.5-73.1); Platelet Count Result 82 k/mm3 (150-375); Red Cell Distribution Width 16.9 % (11.5-14.5); White Blood Count 8.2 K/mm3 (4.5-10.0)
[2023-06-30 08:00] VITALS: PULSE 88; RESP 17; O2SAT 97
[2023-06-30 08:19] LABS: Anion Gap 3 mmol/L (4-12); Blood Urea Nitrogen 9 mg/dL (7-17); Calcium 7.6 mg/dL (8.4-10.2); Carbon Dioxide 24 mmol/L (22-30); Chloride 104 mmol/L (98-107); Estimated CRCL calculation 142 ml/min; Estimated Glomerular Filt Rate > 60; Glucose 88 mg/dL (65-110); Potassium 3.5 mmol/L (3.4-5.0); Sodium 131 mmol/L (137-145)
--- NOTE | 2023-06-30 11:40 | PM.DS ---
DS: Admitting Diagnosis Discharge Date 06/30/23 Admitting Diagnosis Hypokalemia Obesity Cirrhosis of the liver Tobacco abuse counseling Nicotine dependence DS: Summary Hospital Course Reason for hospitalization: Hypokalemia Obesity Cirrhosis of the liver Tobacco abuse counseling Nicotine dependence Hospital Course: This is a 53-year-old female with a significant past medical history of cirrhosis due to BACON who presented with abdominal swelling and distention. Workup the hospital included abdomen pelvis CT on 06/21 showing cirrhosis with portal hypertension, large amount of ascites with diffuse subcutaneous edema. Chest x-ray showing bibasilar atelectasis. Patient had a paracentesis with 3900 mL of yellow fluid removed. Urine culture was obtained and was negative. Blood cultures were obtained and also negative. Peritoneal fluid was sent down for a robotic and anaerobic culture which were negative. Initial labs shown a white blood cell count of 13.4, hemoglobin 11.6, platelet count 97, sodium 135, potassium 3.1, AST 67, ALT 38, total bili 5.0, albumin 3.2. UA was obtained showing 1+ protein, 2+ urine blood, positive nitrate, 2+ bili, 2+ leukocytes, 3 urine RBCs, 11-20 urine wbc's. Respiratory panel was also obtained and negative for influenza a and B, RSV, COVID. Examination today patient. Patient denies. Patient endorses. Labs today revealed white blood cell count down to 8.2, hemoglobin 10.0, platelet 82, sodium 131, calcium 7. Final diagnosis: Ascites, end-stage cirrhosis of the liver due to BACON, hypokalemia Status at Discharge Cognitive/behavioral status at discharge: Alert and oriented x4 Functional status at discharge: independent ambulation Overall status at discharge: patient is progressing back to baseline Time Spent with Patient Time attestation: Total time spent providing and/or coordinating discharge services: Time spent: Greater than 30 minutes Exam Narrative: General: In no acute distress, well nourished Head: atraumatic, no encephalopathy Eyes: EOMI, PERRLA, slcera clear ENT: moist mucous membranes, nasal passages clear Neck: supple, no JVD, no adenopathy, trachea midline Cardiac: Normal S1 and S2. No murmur, gallops or friction rubs, peripheral pulses intact. Respiratory: Lungs clear to auscultation, no adventitious lung sounds Gastrointestinal: soft, non-distended, non-tender, normoactive bowel sounds. : voiding without difficulty. Extremities: moves all extremities well, no edema, good ROM, strength 5/5 Skin: clean, dry, intact. No wounds or lesions. Neuro: Alert and oriented x4, cranial nerves intact, no neuro deficits. Psych: normal mood, normal affect, interactive DS: Data Data Completed and Pending Completed studies during hospitalization: Paracentesis ultrasound Abdomen/pelvis CT x3 Chest x-ray Pending studies at discharge: None Labs on day of discharge: Labs from last 24 hours 06/30/23 06:34 WBC 8.2 RBC 2.80 L Hgb 10.0 L Hct 30.9 L MCV 110.4 H MCH 35.7 H MCHC 32.4 RDW 16.9 H Plt Count 82 L MPV 9.8 Immature Gran % (Auto) 0.4 Neut % (Auto) 55.1 Lymph % (Auto) 26.1 Hubbard % (Auto) 13.4 H Eos % (Auto) 3.9 Baso % (Auto) 1.1 Lymph # (Auto) 2.14 Hubbard # (Auto) 1.1 H Eos # (Auto) 0.3 Baso # (Auto) 0.1 Abs Immat Gran (auto) 0.03 Absolute Neuts (auto) 4.5 Absolute Nucleated RBC 0.000 Nucleated RBC % 0.0 Sodium 131 L Potassium 3.5 Chloride 104 Carbon Dioxide 24 Anion Gap 3 L BUN 9 Creatinine 0.50 L Estim Creat Clear Calc 142 Estimated GFR > 60 Glucose 88 Calcium 7.6 L Procedures/Treatments: Paracentesis with 3900 ml fluid removal Imaging Radiologist's impression: EXAMINATION: US paracentesis abd w/image DATE: 06/27/2023 16:50 INDICATION: Ascites. TECHNIQUE: The procedure and its risks, benefits, and alternatives were discussed with the patient. Potential risks discussed included bleeding and infection.
[2023-06-30 13:34] VITALS: BP 101/52; PULSE 95; RESP 17; TEMP 36.7; O2SAT 94
--- NOTE | 2023-06-30 14:59 | PM.IMPN ---
Progress Note: A&P Assessment and Plan (1) Cirrhosis of liver: Code(s): K74.60 - Unspecified cirrhosis of liver Status: Acute Assessment and Plan: : Stable, had a paracentesis done. 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 Would appreciate their input. Paracentesis done this admission with 3900 mL fluid removal Culture peritoneal fluid was negative Blood cultures were negative as well May need another paracentesis before discharge Will DC Tylenol and start ibuprofen as needed for pain and/or fever (2) Obesity: Code(s): E66.9 - Obesity, unspecified Status: Acute Assessment and Plan: 06/30/23: Diet and exercise instructions given to patient BMI 39.8, 115.4 kilos (3) Tobacco abuse counseling: Code(s): Z71.6 - Tobacco abuse counseling Status: Acute Assessment and Plan: 06/29/23: Counseling and advised to quit smoking 06/30/23: No change Time Spent With Patient Time with patient: Greater than 35 minutes Subjective Date/time seen: 06/30/23 14:59 Interval history: This is a 53-year-old female with a significant past medical history of cirrhosis due to BACON who presented with abdominal swelling and distention.? Workup the hospital included abdomen pelvis CT on 06/21 showing cirrhosis with portal hypertension, large amount of ascites with diffuse subcutaneous edema.? Chest x-ray showing bibasilar atelectasis.? Patient had a paracentesis with 3900 mL of yellow fluid removed.? Urine culture was obtained and was negative.? Blood cultures were obtained and also negative.? Peritoneal fluid was sent down for a robotic and anaerobic culture which were negative.? Initial labs shown a white blood cell count of 13.4, hemoglobin 11.6, platelet count 97, sodium 135, potassium 3.1, AST 67, ALT 38, total bili 5.0, albumin 3.2.? UA was obtained showing 1+ protein, 2+ urine blood, positive nitrate, 2+ bili, 2+ leukocytes, 3 urine RBCs, 11-20 urine wbc's.? Respiratory panel was also obtained and negative for influenza a and B, RSV, COVID. Examination today patient is alert and oriented x3, lying in the bed.? Patient denies any fever, chills, nausea, vomiting, diarrhea, abdominal pain, chest pain, shortness a breath.? Patient endorses bilateral lower extremity edema, anasarca, ascites.? Patient states that her symptoms started in May of this year and she has had a few paracentesis since then. She states that she has been managed by her primary care physician thus far. We will go ahead and get GI involved at this point for further recommendation of her cirrhosis. Labs today revealed white blood cell count down to 8.2, hemoglobin 10.0, platelet 82, sodium 131, calcium 7.? Review of Systems Review of Systems: All systems reviewed & are unremarkable except as noted in HPI and below Constitutional: Constitutional: Reports as per HPI and Reports no additional constitutional complaints Eyes: Eyes: Reports as per HPI and Reports no additional eye complaints ENT: Reports system reviewed and no additional complaints, except as documented and Reports as per HPI Cardiovascular: Cardiovascular: Reports as per HPI and Reports no additional cardiovascular complaints Respiratory: Respiratory: Reports as per HPI and Reports no additional respiratory complaints Gastrointestinal: Gastrointestinal: Reports as per HPI and Reports no additional gastrointestinal complaints Genitourinary: Genitourinary: Reports no additional female genitourinary complaints and Reports as per HPI Musculoskeletal: Musculoskeletal: Reports no additional musculoskele
[2023-06-30 20:48] VITALS: BP 119/55; PULSE 89; RESP 24; TEMP 36.8; O2SAT 95
[2023-07-01 04:40] VITALS: BP 130/65; PULSE 93; RESP 20; TEMP 36.8; O2SAT 93
[2023-07-01] MEDS: LEVOTHYROXINE SODIUM 100 MCG TABLET 200 MCG PO (06:01)
[2023-07-01 08:00] VITALS: PULSE 87; RESP 16; O2SAT 94
--- NOTE | 2023-07-01 09:18 | PM.IMPN ---
Progress Note: A&P Assessment and Plan (1) Cirrhosis of liver: Code(s): K74.60 - Unspecified cirrhosis of liver Status: Acute Assessment and Plan: : Stable, had a paracentesis done. 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 Would appreciate their input. Paracentesis done this admission with 3900 mL fluid removal Culture peritoneal fluid was negative Blood cultures were negative as well May need another paracentesis before discharge Will DC Tylenol and start ibuprofen as needed for pain and/or fever 07/01/23: Will get CT of the abdomen and pelvis today to assess the ascites May need another paracentesis tomorrow pending these results GI consulted and will see patient today. (2) Obesity: Code(s): E66.9 - Obesity, unspecified Status: Acute Assessment and Plan: 06/30/23: Diet and exercise instructions given to patient BMI 39.8, 115.4 kilos 07/01/23: no change (3) Tobacco abuse counseling: Code(s): Z71.6 - Tobacco abuse counseling Status: Acute Assessment and Plan: 06/29/23: Counseling and advised to quit smoking 06/30/23: No change Time Spent With Patient Time with patient: 25 - 35 minutes Subjective Date/time seen: 07/01/23 09:18 Interval history: 06/30/23: This is a 53-year-old female with a significant past medical history of cirrhosis due to BACON who presented with abdominal swelling and distention.? Workup the hospital included abdomen pelvis CT on 06/21 showing cirrhosis with portal hypertension, large amount of ascites with diffuse subcutaneous edema.? Chest x-ray showing bibasilar atelectasis.? Patient had a paracentesis with 3900 mL of yellow fluid removed.? Urine culture was obtained and was negative.? Blood cultures were obtained and also negative.? Peritoneal fluid was sent down for a robotic and anaerobic culture which were negative.? Initial labs shown a white blood cell count of 13.4, hemoglobin 11.6, platelet count 97, sodium 135, potassium 3.1, AST 67, ALT 38, total bili 5.0, albumin 3.2.? UA was obtained showing 1+ protein, 2+ urine blood, positive nitrate, 2+ bili, 2+ leukocytes, 3 urine RBCs, 11-20 urine wbc's.? Respiratory panel was also obtained and negative for influenza a and B, RSV, COVID. Examination today patient is alert and oriented x3, lying in the bed.? Patient denies any fever, chills, nausea, vomiting, diarrhea, abdominal pain, chest pain, shortness a breath.? Patient endorses bilateral lower extremity edema, anasarca, ascites.? Patient states that her symptoms started in May of this year and she has had a few paracentesis since then. She states that she has been managed by her primary care physician thus far. We will go ahead and get GI involved at this point for further recommendation of her cirrhosis. Labs today revealed white blood cell count down to 8.2, hemoglobin 10.0, platelet 82, sodium 131, calcium 7.? 07/01/23: Patient denies any new complaints today. Labs today reveal hemoglobin of 10.0, sodium 131 calcium 7.6. Will get another CT of the abdomen pelvis today to check her ascites. She may require another paracentesis before she leaves. GI is consulted and following. Review of Systems Review of Systems: She denies any palpitations, fever rigor chills, nausea vomiting, dizziness, headaches or loss of conscious All systems reviewed & are unremarkable except as noted in HPI and below Constitutional: Constitutional: Reports as per HPI and Reports no additional constitutional complaints Eyes: Eyes: Reports as per HPI and Reports no additional eye complaints
[2023-07-01] MEDS: TOLNAFTATE 1% POWDER 45 GM BTL 1 APPLIC TOPICAL (10:47)
[2023-07-01] MEDS: ENOXAPARIN 40 MG/0.4 ML SYRINGE SUB-Q (10:47)
[2023-07-01] MEDS: VITAMIN E 400 UNIT CAPSULE 800 UNIT PO (10:47)
[2023-07-01 14:00] VITALS: BP 110/60; PULSE 87; RESP 16; TEMP 36.8; O2SAT 94
--- NOTE | 2023-07-01 14:40 | WPDGICN ---
Assessment and Plan Assessment and plan (1) Decompensation of cirrhosis of liver: Code(s): K72.90 - Hepatic failure, unspecified without coma; K74.60 - Unspecified cirrhosis of liver Status: Acute Assessment and Plan: with recurrent ascites will complete work of chronic liver conditions ( ? KLINE/etoh)- several members with fatty liver will need 2g na diet, also diuretics (apparently itching after aldactone), will give lasix EGD in am to assess if varices, probably will benefit from TIPS evaluation, also referral to hepatology as outpatient she has end stage liver disease (2) Abdominal ascites: Code(s): R18.8 - Other ascites Status: Acute Assessment and Plan: no sbp may need more paracentesis (3) Alcohol use: Code(s): Z78.9 - Other specified health status Status: Acute Assessment and Plan: she quit about 1 month ago thiamine and nutrition support (4) Elevated liver enzymes: Code(s): R74.8 - Abnormal levels of other serum enzymes Status: Acute Assessment and Plan: from liver disease (5) Thrombocytopenia: Code(s): D69.6 - Thrombocytopenia, unspecified Status: Acute (6) Portal hypertension: Code(s): K76.6 - Portal hypertension Status: Acute GI Consult Note Consult date/time: 07/01/23 14:40 Reason for consult: cirrhosis, ascites HPI: Nasreen Orozco is a 53 year old female with history of kline/alcoholic cirrhosis (she was diagnosed with fatty liver years ago but also was drinking 5-6 shots a week, last month she quit). Diagnosed with cirrhosis May 2023 since had required 3 paracentesis. She is here with more leg edema, she says that when was started on aldactone last time developed some itching. She has had her third paracentesis this hospitalization, fluid negative for SBP. Never had scopes. Denies overt gib. Review of Systems Constitutional: Constitutional: Denies chills Eyes: Eyes: Denies blurry vision ENT: Reports Normal hearing present Cardiovascular: Cardiovascular: Denies chest pain Respiratory: Respiratory: Denies cough Gastrointestinal: Gastrointestinal: Reports bloating Genitourinary: Genitourinary: Denies urinary urgency Musculoskeletal: Musculoskeletal: Denies neck pain Integumentary/Breasts: Skin/Breast: Reports dry skin Neurologic: Denies confusion Psychiatric: Psychiatric: Denies behavioral changes PMFSH Past Medical History Medical History (Updated 07/01/23 @ 14:45 by Uziel Lloyd MD) Alcohol use Decompensation of cirrhosis of liver Elevated liver enzymes Liver cirrhosis secondary to KLINE Nicotine dependence, cigarettes, with other nicotine-induced disorders Portal hypertension Thrombocytopenia Surgical History Surgical History No significant past surgical history Social History Social History Years smoked: 15 Smoking status: Current every day smoker Tobacco type: cigarettes Alcohol intake: former Substance use: never Do You Feel Safe in your Home?: Yes Lack of Transportation: No Lack of Food: Sometimes True Current Housing: I Have Housing Concerned About Future Housing: No Difficulty Paying Gas/Electric Bills: No Difficulty Paying for Meds: No Currently Unemployed: No Education: High School Diploma/GED Difficulty w/ Childcare or Family Care: No Spiritual care concerns: No Meds Home Medications and Allergies Home Medications Medication Instructions Recorded Confirmed Type ciprofloxacin HCl 500 mg tablet 500 mg PO Q12H #14 tabs 06/24/23 06/27/23 Rx (Cipro) metronidazole 500 mg tablet 500 mg PO Q12H 7 days #14 tabs 06/24/23 06/27/23 Rx furosemide 20 mg tablet 20 mg PO DAILY 06/27/23 06/27/23 History levothyroxine 200 mcg tablet 200 mcg PO DAILY 06/27/23 06/27/23 History Allergies Allergy/AdvReac Type Nicole
[2023-07-01 20:01] VITALS: BP 135/69; PULSE 92; RESP 20; TEMP 36.7; O2SAT 98
[2023-07-01] MEDS: MIRTAZAPINE 7.5 MG TABLET PO (20:37)
[2023-07-02] VITALS (7 sets, daily range): BP systolic 88–155; BP diastolic 47–72; PULSE 81–97; RESP 15–22; TEMP 36.3–37.3; O2SAT 95–100
[2023-07-02] MEDS: LEVOTHYROXINE SODIUM 100 MCG TABLET 200 MCG PO (06:39)
[2023-07-02 07:34] LABS: Hepatitis B Surface Antigen Negative (Negative)
[2023-07-02 07:39] LABS: HAV RESULT Negative (Negative); Hepatitis B Core IgM Result Negative (Negative)
[2023-07-02 07:51] LABS: Hepatitis C Virus Antibody Negative (Negative)
[2023-07-02] MEDS: FUROSEMIDE 40 MG TABLET PO (08:42)
[2023-07-02] MEDS: VITAMIN E 400 UNIT CAPSULE 800 UNIT PO (08:42)
[2023-07-02] MEDS: LACTATED RINGERS 1,000 ML 150 ML IV CONT (09:48)
--- NOTE | 2023-07-02 09:55 | WPDANESEPPF ---
Anes - Initial Pre Proc Eval Procedure: Operation Date: 07/02/23 16:30 Proposed Procedures p Esophagogastroduodenoscopy - Uziel Llody MD Date/Time: 07/02/23 09:55 Surgeon: Tex Barnes MD Pre Op Diagnosis: Abdominal Ascites,Cirrhosis Patient Data Age: 53 Gender: F Height: 1.7 m Weight: 117.4 kg Last Vital Signs Temp 98.2 F 07/02/23 09:46 Pulse 93 07/02/23 09:46 Resp 16 07/02/23 09:46 BP 114/62 07/02/23 09:46 Pulse Ox 98 07/02/23 09:46 O2 Del Method Room Air 07/02/23 09:46 Allergies Allergy/AdvReac Type Severity Reaction Status Date / Time spironolactone Allergy Intermediate Hives Verified 06/30/23 15:10 amoxicillin Allergy Hives Verified 06/26/23 23:02 Penicillins Allergy Hives Verified 06/26/23 23:02 Home Medications Medication Instructions Recorded Confirmed Type ciprofloxacin HCl 500 mg tablet 500 mg PO Q12H #14 tabs 06/24/23 06/27/23 Rx (Cipro) metronidazole 500 mg tablet 500 mg PO Q12H 7 days #14 tabs 06/24/23 06/27/23 Rx furosemide 20 mg tablet 20 mg PO DAILY 06/27/23 06/27/23 History levothyroxine 200 mcg tablet 200 mcg PO DAILY 06/27/23 06/27/23 History Laboratory Tests 07/02/23 06:28 Iron Pending TIBC Pending % Saturation Pending Ferritin Pending Alpha-1-AT Phenotype Pending Ceruloplasmin Pending TAB Screen Pending Mitochondria M2 IgG Ab Pending Hepatitis A IgM Ab Negative (Negative) Hep Bs Antigen Negative (Negative) Hep B Core IgM Ab Negative (Negative) Hepatitis C Ab Screen Negative (Negative) Patient hx anesthesia problems: none Family hx anesthesia problems: none Results Review: All pre-operative results and documents have been reviewed as part of the pre-operative evaluation. COUNT INCLUDES [facility] Past Medical History Medical History (Updated 07/01/23 @ 14:45 by Uziel Lloyd MD) Alcohol use Decompensation of cirrhosis of liver Elevated liver enzymes 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 Nicotine dependence, cigarettes, with other nicotine-induced disorders Portal hypertension Thrombocytopenia Surgical History Surgical History No significant past surgical history Social History Social History Years smoked: 15 Smoking status: Current every day smoker Tobacco type: cigarettes Alcohol intake: former Substance use: never Do You Feel Safe in your Home?: Yes Lack of Transportation: No Lack of Food: Sometimes True Current Housing: I Have Housing Concerned About Future Housing: No Difficulty Paying Gas/Electric Bills: No Difficulty Paying for Meds: No Currently Unemployed: No Education: High School Diploma/GED Difficulty w/ Childcare or Family Care: No Spiritual care concerns: No Anes - Eval Final PreProcedure Day of Procedure 07/02/23 09:55 Patient weight: morbidly obese Heart: regular rate and rhythm Lungs: clear to auscultation Airway: Mallampati scale class III Neurological: alert and oriented Last oral intake: >/= 8 hours ASA classification: III Emergent: no Anesthetic plan: proceed Anesthesia type and monitoring: general GIVS and standard monitoring Results Review: All pre-operative results and documents have been reviewed as part of the pre-operative evaluation. Informed Consent: The patient's anesthetic plan and its attendant risks and benefits were discussed with the patient/family/POA. Questions were solicited and answers provided to the satisfaction of the patient/family/POA.
--- NOTE | 2023-07-02 10:32 | PM.IMPN ---
Progress Note: A&P Assessment and Plan (1) Cirrhosis of liver: Code(s): K74.60 - Unspecified cirrhosis of liver Status: Acute Assessment and Plan: : Stable, had a paracentesis done. 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 Would appreciate their input. Paracentesis done this admission with 3900 mL fluid removal Culture peritoneal fluid was negative Blood cultures were negative as well May need another paracentesis before discharge Will DC Tylenol and start ibuprofen as needed for pain and/or fever 07/01/23: Will get CT of the abdomen and pelvis today to assess the ascites May need another paracentesis tomorrow pending these results GI consulted and will see patient today. 07/02/23: Plan for paracentesis today GI following EGD done today showing grade 1 varices and mild esophagitis Will diuresis with Lasix per GI recommendations (2) Obesity: Code(s): E66.9 - Obesity, unspecified Status: Acute Assessment and Plan: 06/30/23: Diet and exercise instructions given to patient BMI 39.8, 115.4 kilos 07/01/23: no change (3) Tobacco abuse counseling: Code(s): Z71.6 - Tobacco abuse counseling Status: Acute Assessment and Plan: 06/29/23: Counseling and advised to quit smoking 06/30/23: No change Time Spent With Patient Time with patient: 25 - 35 minutes Subjective Date/time seen: 07/02/23 10:32 Interval history: 06/30/23: This is a 53-year-old female with a significant past medical history of cirrhosis due to BACON who presented with abdominal swelling and distention.? Workup the hospital included abdomen pelvis CT on 06/21 showing cirrhosis with portal hypertension, large amount of ascites with diffuse subcutaneous edema.? Chest x-ray showing bibasilar atelectasis.? Patient had a paracentesis with 3900 mL of yellow fluid removed.? Urine culture was obtained and was negative.? Blood cultures were obtained and also negative.? Peritoneal fluid was sent down for a robotic and anaerobic culture which were negative.? Initial labs shown a white blood cell count of 13.4, hemoglobin 11.6, platelet count 97, sodium 135, potassium 3.1, AST 67, ALT 38, total bili 5.0, albumin 3.2.? UA was obtained showing 1+ protein, 2+ urine blood, positive nitrate, 2+ bili, 2+ leukocytes, 3 urine RBCs, 11-20 urine wbc's.? Respiratory panel was also obtained and negative for influenza a and B, RSV, COVID. Examination today patient is alert and oriented x3, lying in the bed.? Patient denies any fever, chills, nausea, vomiting, diarrhea, abdominal pain, chest pain, shortness a breath.? Patient endorses bilateral lower extremity edema, anasarca, ascites.? Patient states that her symptoms started in May of this year and she has had a few paracentesis since then. She states that she has been managed by her primary care physician thus far. We will go ahead and get GI involved at this point for further recommendation of her cirrhosis. Labs today revealed white blood cell count down to 8.2, hemoglobin 10.0, platelet 82, sodium 131, calcium 7.? 07/01/23: Patient denies any new complaints today. Labs today reveal hemoglobin of 10.0, sodium 131 calcium 7.6. Will get another CT of the abdomen pelvis today to check her ascites. She may require another paracentesis before she leaves. GI is consulted and following. 07/02/23: Patient denies any complaints today. She had an EGD done today which showed small grade 1 varices that were not actively bleeding and mild gastritis. Plan for paracentesis today. GI following Review of Systems Review of Sys
[2023-07-02 13:04] LABS: Basophils Absolute Auto 0.1 K/mm3 (0.0-0.1); Basophils Percent Auto 1.2 % (0.2-1.2); Eosinophils Absolute Auto 0.3 K/mm3 (0-0.3); Eosinophils Percent Auto 4.8 % (0-4.4); Hematocrit 32.8 % (37.0-47.0); Hemoglobin 10.3 g/dL (12.0-15.0); Immature Granulocyte Absolute 0.03 K/mm3 (0.00-0.031); Immature Granulocyte Percent A 0.5 % (0-0.5); Immature Platelet Fraction Pct 3.2 % (0.9-11.2); Lymphocytes Absolute Auto 1.87 K/mm3 (0.9-3.2); Lymphocytes Percent Auto 28.1 % (18.3-44.2); Mean Corpuscular HGB Conc 31.4 g/dl (32-36); Mean Corpuscular Hemoglobin 35.6 pg (26-34); Mean Corpuscular Volume 113.5 fl (80-100); Mean Platelet Volume 10.5 fl (7.4-10.4); Neutrophils Absolute Auto 3.4 K/mm3 (1.3-6.7); Neutrophils Percent Auto 50.4 % (45.5-73.1); Platelet Count Result 86 k/mm3 (150-375); Red Blood Count 2.89 M/mm3 (4.2-5.4); Red Cell Distribution Width 17.1 % (11.5-14.5); White Blood Count 6.7 K/mm3 (4.5-10.0)
[2023-07-02 13:23] LABS: Alanine Aminotransferase 25 U/L (6-35); Albumin Level 2.4 g/dL (3.5-5.1); Alkaline Phosphatase 103 U/L (38-126); Anion Gap -1 mmol/L (4-12); Aspartate Amino Transferase 59 U/L (14-36); Bilirubin,Total 4.6 mg/dL (0.2-1.3); Blood Urea Nitrogen 8 mg/dL (7-17); Calcium 7.7 mg/dL (8.4-10.2); Carbon Dioxide 26 mmol/L (22-30); Chloride 105 mmol/L (98-107); Estimated CRCL calculation 144 ml/min; Estimated Glomerular Filt Rate > 60; Glucose 86 mg/dL (65-110); Potassium 3.7 mmol/L (3.4-5.0); Sodium 130 mmol/L (137-145)
[2023-07-02 13:34] LABS: Platelet Estimate Decreased (Adequate); Polychromasia 1+
[2023-07-02 13:35] LABS: Anisocytosis 1+; Burr Cells 1+; Schistocytes Rare
[2023-07-02] MEDS: MIRTAZAPINE 7.5 MG TABLET PO (22:02)
[2023-07-03 00:14] LABS: Iron 90 ug/dL (37-170)
[2023-07-03 00:30] LABS: Percent Iron Saturation 36 % (20-50)
[2023-07-03 06:00] VITALS: BP 116/54; PULSE 94; RESP 16; TEMP 36.9; O2SAT 92
[2023-07-03] MEDS: LEVOTHYROXINE SODIUM 100 MCG TABLET 200 MCG PO (06:25)
[2023-07-03 06:36] LABS: Basophils Absolute Auto 0.1 K/mm3 (0.0-0.1); Basophils Percent Auto 0.9 % (0.2-1.2); Eosinophils Absolute Auto 0.2 K/mm3 (0-0.3); Eosinophils Percent Auto 3.4 % (0-4.4); Hematocrit 30.9 % (37.0-47.0); Immature Granulocyte Absolute 0.03 K/mm3 (0.00-0.031); Immature Granulocyte Percent A 0.4 % (0-0.5); Immature Platelet Fraction Pct 1.7 % (0.9-11.2); Lymphocytes Absolute Auto 1.96 K/mm3 (0.9-3.2); Mean Corpuscular HGB Conc 32.4 g/dl (32-36); Mean Corpuscular Hemoglobin 35.8 pg (26-34); Mean Corpuscular Volume 110.8 fl (80-100); Mean Platelet Volume 9.7 fl (7.4-10.4); Monocytes Percent Auto 14.3 % (2.6-8.5); Neutrophils Absolute Auto 3.7 K/mm3 (1.3-6.7); Platelet Count Result 90 k/mm3 (150-375); Red Blood Count 2.79 M/mm3 (4.2-5.4)
[2023-07-03 06:47] LABS: Alanine Aminotransferase 22 U/L (6-35); Albumin Level 2.2 g/dL (3.5-5.1); Alkaline Phosphatase 81 U/L (38-126); Anion Gap 1 mmol/L (4-12); Aspartate Amino Transferase 49 U/L (14-36); Bilirubin,Total 4.1 mg/dL (0.2-1.3); Blood Urea Nitrogen 11 mg/dL (7-17); Calcium 7.6 mg/dL (8.4-10.2); Carbon Dioxide 26 mmol/L (22-30); Chloride 105 mmol/L (98-107); Estimated CRCL calculation 122 ml/min; Estimated Glomerular Filt Rate > 60; Glucose 118 mg/dL (65-110); Potassium 3.4 mmol/L (3.4-5.0); Sodium 132 mmol/L (137-145)
[2023-07-03 07:04] LABS: Anisocytosis 1+; Platelet Estimate Decreased (Adequate); Schistocytes None Seen
--- NOTE | 2023-07-03 08:25 | P.PNAN_ITS ---
Anes - Prog Note Post-Op Date/Time: 07/03/23 08:25 Vital Signs: Last Vital Signs Temp 36.9 C 07/03/23 06:00 Pulse 94 07/03/23 06:00 Resp 16 07/03/23 06:00 BP 116/54 L 07/03/23 06:00 Pulse Ox 92 07/03/23 06:00 O2 Del Method Room Air 07/02/23 10:54 Pain Score (VAS): 0 I/O: Intake & Output 07/02/23 07/03/23 07/03/23 23:59 07:59 15:59 Intake Total 1212 250 Output Total 400 Balance 812 250 Laboratory Tests 07/03/23 06:22 07/03/23 06:22 07/02/23 07/02/23 07/03/23 06:26 06:28 06:22 WBC 6.7 7.0 RBC 2.89 L 2.79 L Hgb 10.3 L 10.0 L Hct 32.8 L 30.9 L MCV 113.5 H 110.8 H MCH 35.6 H 35.8 H MCHC 31.4 L 32.4 RDW 17.1 H 17.0 H Plt Count 86 L 90 L MPV 10.5 H 9.7 Immature Gran % (Auto) 0.5 0.4 Neut % (Auto) 50.4 53.0 Lymph % (Auto) 28.1 28.0 [place] % (Auto) 15.0 H 14.3 H Eos % (Auto) 4.8 H 3.4 Baso % (Auto) 1.2 0.9 Lymph # (Auto) 1.87 1.96 [place] # (Auto) 1.0 H 1.0 H Eos # (Auto) 0.3 0.2 Baso # (Auto) 0.1 0.1 Abs Immat Gran (auto) 0.03 0.03 Absolute Neuts (auto) 3.4 3.7 Absolute Nucleated RBC 0.000 0.000 Nucleated RBC % 0.0 0.0 Platelet Estimate Decreased Decreased % Immature Plt Fraction 3.2 1.7 Polychromasia 1+ Anisocytosis 1+ 1+ [place] Cells 1+ Schistocytes Rare None seen Sodium 130 L 132 L Potassium 3.7 3.4 Chloride 105 105 Carbon Dioxide 26 26 Anion Gap -1 L 1 L BUN 8 11 Creatinine 0.50 L 0.60 L Estim Creat Clear Calc 144 122 Estimated GFR > 60 > 60 Glucose 86 118 H Calcium 7.7 L 7.6 L Iron 90 TIBC 247 L % Saturation 36 Ferritin 34.80 Total Bilirubin 4.6 H 4.1 H AST 59 H 49 H ALT 25 22 Alkaline Phosphatase 103 81 Total Protein 7.0 6.0 L Albumin 2.4 L 2.2 L Patient Feedback: Patient satisfied with anesthetic care.
[2023-07-03] MEDS: VITAMIN E 400 UNIT CAPSULE 800 UNIT PO (09:10)
[2023-07-03] MEDS: FUROSEMIDE 40 MG TABLET PO ×2 (09:10→17:21)
--- NOTE | 2023-07-03 09:10 | PM.IMPN ---
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 Workup the hospital included abdomen pelvis CT on 06/21 showing cirrhosis with portal hypertension, large amount of ascites with diffuse subcutaneous edema.? Chest x-ray showing bibasilar atelectasis.? Patient had a paracentesis with 3900 mL of yellow fluid removed.? Urine culture was obtained and was negative.? Blood cultures were obtained and also negative.? Peritoneal fluid was sent down for aerobic and anaerobic culture which were negative.? Initial labs shown a white blood cell count of 13.4, hemoglobin 11.6, platelet count 97, sodium 135, potassium 3.1, AST 67, ALT 38, total bili 5.0, albumin 3.2.? UA was obtained showing 1+ protein, 2+ urine blood, positive nitrate, 2+ bili, 2+ leukocytes, 3 urine RBCs, 11-20 urine wbc's.? Respiratory panel was also obtained and negative for influenza a and B, RSV, COVID. Patient state that her symptoms started since May of this year and had few paracentesis since then. 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 GI has been consulted. Status post paracentesis x2 this admission 1 on 06/27/2023 and another on 07/02/2023. Status post EGD which showed small grade 1 versus that were not actively bleeding and mild gastritis. Also 1 antitrypsin ceruloplasmin TAB AMA pending. Hepatitis profile negative. On Lasix 40 mg daily. Allergic to spironolactone. Add albumin. Increase Lasix to b.i.d. 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 DVT prophylaxis Lovenox Subjective Date/time seen: 07/03/23 09:10 Interval history: This is a 53-year-old female with a significant past medical history of cirrhosis due to BACON who presented with abdominal swelling and distention.? Workup the hospital included abdomen pelvis CT on 06/21 showing cirrhosis with portal hypertension, large amount of ascites with diffuse subcutaneous edema.? Chest x-ray showing bibasilar atelectasis.? Patient had a paracentesis with 3900 mL of yellow fluid removed.? Urine culture was obtained and was negative.? Blood cultures were obtained and also negative.? Peritoneal fluid was sent down for aerobic and anaerobic culture which were negative.? Initial labs shown a white blood cell count of 13.4, hemoglobin 11.6, platelet count 97, sodium 135, potassium 3.1, AST 67, ALT 38, total bili 5.0, albumin 3.2.? UA was obtained showing 1+ protein, 2+ urine blood, positive nitrate, 2+ bili, 2+ leukocytes, 3 urine RBCs, 11-20 urine wbc's.? Respiratory panel was also obtained and negative for influenza a and B, RSV, COVID. Patient state that her symptoms started since May of this year and had few paracentesis since then. 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 GI has been consulted. Status post paracentesis x2 this admission 1 on 06/27/2023 and another on 07/02/2023. Status post EGD which showed small grade 1 versus that were not actively bleeding and mild gastritis. Also 1 antitrypsin ceruloplasmin TAB AMA pending. Hepatitis profile negative. On Lasix 40 mg daily. Allergic to spironolactone. Add albumin. Increase Lasix to b.i.d. 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 DVT prophylaxis Lovenox Review of Systems Review of Systems: All systems reviewed & are unremarkable except as noted in HPI and below Exam Narrative: General: In no acute distress, well nourished Head: atraumatic, no encephalopathy Eyes: EOMI, PERRLA, sclera jaundi
[2023-07-03] MEDS: ENOXAPARIN 40 MG/0.4 ML SYRINGE SUB-Q (09:11)
[2023-07-03] MEDS: THIAMINE HCL 100 MG TABLET PO (09:11)
[2023-07-03] MEDS: ALBUMIN HUMAN 25% 25 GM/100 ML 100 ML IVPB ×2 (12:04→17:21)
[2023-07-03 14:00] VITALS: BP 108/56; PULSE 89; RESP 16; TEMP 37.3; O2SAT 93
--- NOTE | 2023-07-03 18:12 | WPDGIPROGNO ---
Progress Note: A&P Assessment and Plan (1) Decompensation of cirrhosis of liver: Code(s): K72.90 - Hepatic failure, unspecified without coma; K74.60 - Unspecified cirrhosis of liver Status: Acute Assessment and Plan: will refer to hepatology as outpatient- ? TIPS- requiring paracentesis, also small size EV she has decompensated cirrhosis with ascites, she claims that had allergic response to aldactone, now only on lasix (2) Abdominal ascites: Code(s): R18.8 - Other ascites Status: Acute Assessment and Plan: s/p paracentesis probably will need to set up as outpatient as needed basis 2g na diet (3) Alcohol use: Code(s): Z78.9 - Other specified health status Status: Acute (4) Elevated liver enzymes: Code(s): R74.8 - Abnormal levels of other serum enzymes Status: Acute (5) Thrombocytopenia: Code(s): D69.6 - Thrombocytopenia, unspecified Status: Acute Assessment and Plan: from liver disease (6) Portal hypertension: Code(s): K76.6 - Portal hypertension Status: Acute Subjective Date/time seen: 07/03/23 18:12 Interval history: feeling bloated egd yesterday with changes of portal HTN, small size EV, no signs of bleeding Review of Systems Review of Systems: All systems reviewed & are unremarkable except as noted in HPI and below Exam Const: General: comfortable HENMT: Face/Nose/Sinus: Normal nares present Eyes: Sclera: scleral abnormality (icteric sclerae) Neck: Neck: supple Chest: Other: + spider angioma Resp: Effort & Inspection: normal respiratory effort Cardio: Rate: regular rate GI: Inspection: distended GI Palp: Yes Soft to palpation, No Tenderness to palpation present (GI) and Yes Hernia present umbilical Auscultation: normal bowel sounds Other: + fluid wave Skin: General skin exam: normal color Neuro: Speech: normal speech Motor exam (neuro): 5/5 motor strength present throughout Extrem: General: edema bilateral Psych: Mental Status: mental status grossly normal Objective Data Vital Signs Vital Signs: Vital Signs - 24 hr 07/02/23 22:00 07/03/23 06:00 07/03/23 14:00 Temperature 99.1 F 98.4 F 99.2 F Pulse Rate 97 94 89 Respiratory Rate 22 H 16 16 Blood Pressure 138/72 116/54 L 108/56 L Pulse Oximetry 95 92 93 Intake/Output Intake/Output: Intake & Output 06/30/23 07/01/23 07/02/23 07/03/23 23:59 23:59 23:59 23:59 Intake Total 2192 630 1834.0 944 Output Total 5050 Balance 2192 630 -3216.0 944 Meds/Results Medications: Active Medications Generic Name Dose Route Start Last Admin Trade Name Freq PRN Reason Stop Dose Admin Al Hydrox/Mg Hydrox/Simethicone 30 ml 06/27/23 15:48 Mag Hydrox/Al Hydrox/Simeth 30 Ml Udc PO QID PRN Dyspepsia Diphenhydramine HCl 50 mg 06/29/23 13:48 06/29/23 14:23 Diphenhydramine Hcl Cap 25 Mg Capsule PO 50 mg Q6H PRN Administration Itching Enoxaparin Sodium 40 mg 06/28/23 09:00 07/03/23 09:11 Enoxaparin 40 Mg/0.4 Ml Syringe SUB-Q 40 mg DAILY LENNY Administration Furosemide 40 mg 07/03/23 17:00 07/03/23 17:21 Furosemide 40 Mg Tablet PO 40 mg BID LENNY Administration Albumin Human 100 mls @ 60 mls/hr 07/03/23 12:00 07/03/23 17:21 Albutein IVPB 60 mls/hr Q6HR LENNY Administration Levothyroxine Sodium 200 mcg 06/28/23 06:30 07/03/23 06:25 Levothyroxine Sodium 100 Mcg Tablet PO 200 mcg DAILY@0630 LENNY Administration Mirtazapine 7.5 mg 07/01/23 21:00 07/02/23 22:02 Mirtazapine 7.5 Mg Tablet PO 7.5 mg HS LENNY Administration Ondansetron HCl 4 mg 06/26/23 22:57 Ondansetron Inj 4 Mg/2 Ml Vial IV PUSH Q4H PRN Nausea Thiamine HCl 100 mg 07/03/23 09:00 07/03/23 09:11 Thiamine Hcl 100 Mg Tablet PO 100 mg QAM LENNY Administration Tolnaftate 1 applic 06/29/23 21:00 07/03/23 09:11 Tolnaftate 1% Powder 45 Gm Btl TOPICAL
[2023-07-03 21:15] VITALS: BP 106/54; PULSE 96; RESP 16; TEMP 37.8; O2SAT 94
[2023-07-03 21:30] VITALS: TEMP 37.5
[2023-07-04] MEDS: ALBUMIN HUMAN 25% 25 GM/100 ML 100 ML IVPB ×5 (00:17→23:47)
[2023-07-04 05:08] VITALS: BP 103/46; PULSE 94; RESP 18; TEMP 38.1; O2SAT 97
[2023-07-04 05:46] VITALS: TEMP 38.1
[2023-07-04] MEDS: IBUPROFEN 600 MG TABLET PO (05:46)
[2023-07-04] MEDS: LEVOTHYROXINE SODIUM 100 MCG TABLET 200 MCG PO (05:46)
[2023-07-04 06:00] VITALS: BP 105/46; PULSE 94; RESP 18; TEMP 37.7; O2SAT 98
[2023-07-04 06:46] VITALS: TEMP 37.4
[2023-07-04 07:43] LABS: Basophils Absolute Auto 0.1 K/mm3 (0.0-0.1); Eosinophils Absolute Auto 0.3 K/mm3 (0-0.3); Eosinophils Percent Auto 5.6 % (0-4.4); Hematocrit 29.1 % (37.0-47.0); Hemoglobin 9.2 g/dL (12.0-15.0); Immature Granulocyte Absolute 0.02 K/mm3 (0.00-0.031); Immature Granulocyte Percent A 0.4 % (0-0.5); Immature Platelet Fraction Pct 2.6 % (0.9-11.2); Lymphocytes Absolute Auto 1.48 K/mm3 (0.9-3.2); Lymphocytes Percent Auto 29.8 % (18.3-44.2); Mean Corpuscular HGB Conc 31.6 g/dl (32-36); Mean Corpuscular Hemoglobin 35.4 pg (26-34); Mean Corpuscular Volume 111.9 fl (80-100); Mean Platelet Volume 9.8 fl (7.4-10.4); Monocytes Absolute Auto 0.9 K/mm3 (0.1-0.6); Monocytes Percent Auto 17.5 % (2.6-8.5); Neutrophils Absolute Auto 2.3 K/mm3 (1.3-6.7); Neutrophils Percent Auto 45.7 % (45.5-73.1); Platelet Count Result 84 k/mm3 (150-375)
[2023-07-04 08:15] LABS: Alanine Aminotransferase 18 U/L (6-35); Albumin Level 2.8 g/dL (3.5-5.1); Alkaline Phosphatase 81 U/L (38-126); Aspartate Amino Transferase 41 U/L (14-36); Bilirubin,Total 4.4 mg/dL (0.2-1.3); Blood Urea Nitrogen 12 mg/dL (7-17); Calcium 8.2 mg/dL (8.4-10.2); Carbon Dioxide 24 mmol/L (22-30); Estimated CRCL calculation 122 ml/min; Estimated Glomerular Filt Rate > 60; Glucose 114 mg/dL (65-110)
[2023-07-04 08:30] LABS: Anion Gap 6 mmol/L (4-12); Chloride 105 mmol/L (98-107); Potassium 3.2 mmol/L (3.4-5.0); Sodium 135 mmol/L (137-145)
[2023-07-04] MEDS: VITAMIN E 400 UNIT CAPSULE 800 UNIT PO (09:08)
[2023-07-04] MEDS: THIAMINE HCL 100 MG TABLET PO (09:08)
[2023-07-04] MEDS: FUROSEMIDE 40 MG TABLET PO ×2 (09:08→17:04)
[2023-07-04] MEDS: POTASSIUM CHLORIDE 20 MEQ ER TABLET 40 MEQ PO (09:08)
--- NOTE | 2023-07-04 11:35 | PCNWS ---
Weekly nutritional screen. Patient is tolerating current 2gm Na diet with adequate intake at 75-100%. No weight loss reported. No nutritional recommendations at this time.
--- NOTE | 2023-07-04 12:48 | PM.IMPN ---
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 Workup the hospital included abdomen pelvis CT on 06/21 showing cirrhosis with portal hypertension, large amount of ascites with diffuse subcutaneous edema.? Chest x-ray showing bibasilar atelectasis.? Patient had a paracentesis with 3900 mL of yellow fluid removed.? Urine culture was obtained and was negative.? Blood cultures were obtained and also negative.? Peritoneal fluid was sent down for aerobic and anaerobic culture which were negative.? Initial labs shown a white blood cell count of 13.4, hemoglobin 11.6, platelet count 97, sodium 135, potassium 3.1, AST 67, ALT 38, total bili 5.0, albumin 3.2.? UA was obtained showing 1+ protein, 2+ urine blood, positive nitrate, 2+ bili, 2+ leukocytes, 3 urine RBCs, 11-20 urine wbc's.? Respiratory panel was also obtained and negative for influenza a and B, RSV, COVID. Patient state that her symptoms started since May of this year and had few paracentesis since then. She has not followed up with any clinical trials systems administrator. GI has been consulted. Status post paracentesis x2 this admission 1 on 06/27/2023 and another on 07/02/2023. Status post EGD which showed small grade 1 versus that were not actively bleeding and mild gastritis. Also 1 antitrypsin ceruloplasmin TAB AMA pending. Hepatitis profile negative. On Lasix 40 mg daily. Allergic to spironolactone. Add albumin. Increase Lasix to b.i.d. 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 Continue to monitor off antibiotic Mild chronic anemia Mild thrombocytopenia which is chronic. DVT prophylaxis Lovenox Subjective Date/time seen: 07/04/23 12:48 Interval history: Mild fever overnight. No signs of infection. No cough no urinary symptoms. Review of Systems Review of Systems: All systems reviewed & are unremarkable except as noted in HPI and below Exam Narrative: General: In no acute distress, well nourished Head: atraumatic, no encephalopathy Eyes: EOMI, PERRLA, sclera jaundice ENT: moist mucous membranes, nasal passages clear Neck: supple, no JVD, no adenopathy, trachea midline Cardiac: Normal S1 and S2.? RRR,? No murmur, gallops or friction rubs, peripheral pulses intact. Respiratory: Lungs clear to auscultation, no adventitious lung sounds, currently on room air Gastrointestinal: soft, distended, ascites present, anasarca, non-tender, normoactive bowel sounds. : voiding without difficulty. Extremities: moves all extremities well, 3 to 4+ pitting edema bilateral lower extremities, good ROM Skin:? Clean dry and intact Neuro: Alert and oriented x4, cranial nerves intact, no neuro deficits. Psych: normal mood, normal affect, interactive Objective Data Vital Signs Vital Signs: Vital Signs - 24 hr 07/03/23 14:00 07/03/23 21:15 07/03/23 21:30 Temperature 99.2 F 100.1 F H 99.5 F Pulse Rate 89 96 Respiratory Rate 16 16 Blood Pressure 108/56 L 106/54 L Pulse Oximetry 93 94 Oxygen Delivery 07/04/23 05:08 07/04/23 05:46 07/04/23 06:00 Temperature 100.5 F H 100.5 F H 100 F H Pulse Rate 94 94 Respiratory Rate 18 18 Blood Pressure 103/46 L 105/46 L Pulse Oximetry 97 98 Oxygen Delivery 07/04/23 06:46 07/04/23 09:15 Temperature 99.4 F Pulse Rate Respiratory Rate Blood Pressure Pulse Oximetry Oxygen Delivery Room Air Intake/Output Intake/Output: Intake & Output 07/01/23 07/02/23 07/03/23 07/04/23 23:59 23:59 23:59 23:59 Intake Total 630 1834.0 1
[2023-07-04 14:00] VITALS: BP 115/60; PULSE 93; RESP 18; TEMP 36.8; O2SAT 93
--- NOTE | 2023-07-04 16:48 | WPDGIPROGNO ---
Progress Note: A&P Assessment and Plan (1) Decompensation of cirrhosis of liver: Code(s): K72.90 - Hepatic failure, unspecified without coma; K74.60 - Unspecified cirrhosis of liver Status: Acute Assessment and Plan: hepatology as outpatient- ? TIPS- requiring paracentesis, also small size EV she has decompensated cirrhosis with ascites, she claims that had allergic response to aldactone, now only on lasix (2) Abdominal ascites: Code(s): R18.8 - Other ascites Status: Acute Assessment and Plan: s/p paracentesis probably will need to set up as outpatient as needed basis 2g na diet only lasix, ? allergic to aldactone (3) Alcohol use: Code(s): Z78.9 - Other specified health status Status: Acute (4) Elevated liver enzymes: Code(s): R74.8 - Abnormal levels of other serum enzymes Status: Acute Assessment and Plan: bili stable 4 (5) Thrombocytopenia: Code(s): D69.6 - Thrombocytopenia, unspecified Status: Acute Assessment and Plan: from liver disease (6) Portal hypertension: Code(s): K76.6 - Portal hypertension Status: Acute (7) Colon cancer screening: Code(s): Z12.11 - Encounter for screening for malignant neoplasm of colon Status: Acute Assessment and Plan: never had one she is willing to have one as outpatient, will set up Subjective Date/time seen: 07/04/23 16:48 Interval history: no changes, less abdominal discomfort Review of Systems Review of Systems: All systems reviewed & are unremarkable except as noted in HPI and below Exam Const: General: comfortable HENMT: Face/Nose/Sinus: Normal nares present Eyes: Sclera: scleral abnormality (icteric sclerae) Neck: Neck: supple Chest: Other: + spider angioma Resp: Effort & Inspection: normal respiratory effort Cardio: Rate: regular rate GI: Inspection: distended GI Palp: Yes Soft to palpation, No Tenderness to palpation present (GI) and Yes Hernia present umbilical Auscultation: normal bowel sounds Other: + fluid wave Skin: General skin exam: normal color Neuro: Speech: normal speech Motor exam (neuro): 5/5 motor strength present throughout Extrem: General: edema bilateral Psych: Mental Status: mental status grossly normal Objective Data Vital Signs Vital Signs: Vital Signs - 24 hr 07/03/23 21:15 07/03/23 21:30 07/04/23 05:08 Temperature 100.1 F H 99.5 F 100.5 F H Pulse Rate 96 94 Respiratory Rate 16 18 Blood Pressure 106/54 L 103/46 L Pulse Oximetry 94 97 Oxygen Delivery 07/04/23 05:46 07/04/23 06:00 07/04/23 06:46 Temperature 100.5 F H 100 F H 99.4 F Pulse Rate 94 Respiratory Rate 18 Blood Pressure 105/46 L Pulse Oximetry 98 Oxygen Delivery 07/04/23 09:15 07/04/23 14:00 Temperature 98.3 F Pulse Rate 93 Respiratory Rate 18 Blood Pressure 115/60 Pulse Oximetry 93 Oxygen Delivery Room Air Intake/Output Intake/Output: Intake & Output 07/01/23 07/02/23 07/03/23 07/04/23 23:59 23:59 23:59 23:59 Intake Total 630 1834.0 1284 1202 Output Total 5050 Balance 630 -3216.0 1284 1202 Meds/Results Medications: Active Medications Generic Name Dose Route Start Last Admin Trade Name Freq PRN Reason Stop Dose Admin Al Hydrox/Mg Hydrox/Simethicone 30 ml 06/27/23 15:48 Mag Hydrox/Al Hydrox/Simeth 30 Ml Udc PO QID PRN Dyspepsia Diphenhydramine HCl 50 mg 06/29/23 13:48 06/29/23 14:23 Diphenhydramine Hcl Cap 25 Mg Capsule PO 50 mg Q6H PRN Administration Itching Enoxaparin Sodium 40 mg 06/28/23 09:00 07/04/23 09:06 Enoxaparin 40 Mg/0.4 Ml Syringe SUB-Q Not Given DAILY LENNY Furosemide 40 mg 07/03/23 17:00 07/04/23 09:08 Furosemide 40 Mg Tablet PO 40 mg BID LENNY Administration Albumin Human 100 mls @ 60 mls/hr 07/03/23 12:00 07/04/23 12:49 Albutein IVPB 60 mls/hr Q6HR LENNY Administrati
[2023-07-04] MEDS: TOLNAFTATE 1% POWDER 45 GM BTL 1 APPLIC TOPICAL (20:56)
[2023-07-04] MEDS: MIRTAZAPINE 7.5 MG TABLET PO (20:56)
[2023-07-04 21:08] LABS: Mitochondrial (M2) Ab (IgG) <=20.0 U (<=20.0)
[2023-07-04 21:15] VITALS: BP 127/66; PULSE 94; RESP 18; TEMP 36.8; O2SAT 93
[2023-07-05] MEDS: ALBUMIN HUMAN 25% 25 GM/100 ML 100 ML IVPB ×4 (05:09→23:38)
[2023-07-05] MEDS: LEVOTHYROXINE SODIUM 100 MCG TABLET 200 MCG PO (05:09)
[2023-07-05 05:10] VITALS: BP 110/54; PULSE 99; RESP 20; TEMP 37.9; O2SAT 91
[2023-07-05 05:39] LABS: Basophils Percent Auto 0.6 % (0.2-1.2); Eosinophils Absolute Auto 0.3 K/mm3 (0-0.3); Eosinophils Percent Auto 4.4 % (0-4.4); Hematocrit 30.9 % (37.0-47.0); Hemoglobin 9.7 g/dL (12.0-15.0); Immature Granulocyte Absolute 0.02 K/mm3 (0.00-0.031); Immature Granulocyte Percent A 0.3 % (0-0.5); Immature Platelet Fraction Pct 2.2 % (0.9-11.2); Lymphocytes Percent Auto 29.1 % (18.3-44.2); Mean Corpuscular HGB Conc 31.4 g/dl (32-36); Mean Corpuscular Hemoglobin 35.1 pg (26-34); Mean Platelet Volume 9.9 fl (7.4-10.4); Monocytes Absolute Auto 0.9 K/mm3 (0.1-0.6); Monocytes Percent Auto 14.4 % (2.6-8.5); Neutrophils Absolute Auto 3.2 K/mm3 (1.3-6.7); Neutrophils Percent Auto 51.2 % (45.5-73.1); Platelet Count Result 91 k/mm3 (150-375); Red Blood Count 2.76 M/mm3 (4.2-5.4); White Blood Count 6.2 K/mm3 (4.5-10.0)
[2023-07-05 05:51] LABS: Alanine Aminotransferase 17 U/L (6-35); Albumin Level 3.2 g/dL (3.5-5.1); Alkaline Phosphatase 100 U/L (38-126); Anion Gap 4 mmol/L (4-12); Aspartate Amino Transferase 40 U/L (14-36); Bilirubin,Total 4.2 mg/dL (0.2-1.3); Blood Urea Nitrogen 12 mg/dL (7-17); Calcium 8.4 mg/dL (8.4-10.2); Carbon Dioxide 25 mmol/L (22-30); Chloride 107 mmol/L (98-107); Estimated CRCL calculation 122 ml/min; Estimated Glomerular Filt Rate > 60; Glucose 90 mg/dL (65-110); Magnesium 1.9 mg/dL (1.6-2.3); Potassium 3.8 mmol/L (3.4-5.0); Sodium 136 mmol/L (137-145)
[2023-07-05 08:50] LABS: Ceruloplasmin 18 mg/dL (18-53)
[2023-07-05] MEDS: VITAMIN E 400 UNIT CAPSULE 800 UNIT PO (09:05)
[2023-07-05] MEDS: FUROSEMIDE 40 MG TABLET PO ×2 (09:05→16:09)
[2023-07-05] MEDS: THIAMINE HCL 100 MG TABLET PO (09:05)
--- NOTE | 2023-07-05 12:43 | WPDGIPROGNO ---
Progress Note: A&P Assessment and Plan (1) Decompensation of cirrhosis of liver: Code(s): K72.90 - Hepatic failure, unspecified without coma; K74.60 - Unspecified cirrhosis of liver Status: Acute Assessment and Plan: referred to hepatology as outpatient- ? TIPS- requiring paracentesis, also small size EV she has decompensated cirrhosis with ascites, she claims that had allergic response to aldactone, now only on lasix had low grade fever, normal wbc will get another paracentesis (recent fluid study without sbp) (2) Abdominal ascites: Code(s): R18.8 - Other ascites Status: Acute Assessment and Plan: s/p paracentesis will repeat another one since had low grade fever probably will need to set up as outpatient as needed basis 2g na diet only lasix, ? allergic to aldactone (3) Alcohol use: Code(s): Z78.9 - Other specified health status Status: Acute (4) Elevated liver enzymes: Code(s): R74.8 - Abnormal levels of other serum enzymes Status: Acute Assessment and Plan: bili stable 4 (5) Thrombocytopenia: Code(s): D69.6 - Thrombocytopenia, unspecified Status: Acute Assessment and Plan: from liver disease (6) Portal hypertension: Code(s): K76.6 - Portal hypertension Status: Acute (7) Colon cancer screening: Code(s): Z12.11 - Encounter for screening for malignant neoplasm of colon Status: Acute Assessment and Plan: never had one she is willing to have one as outpatient, will set up Subjective Date/time seen: 07/05/23 12:43 Interval history: no feeling much better, T 100.2 F Review of Systems Review of Systems: All systems reviewed & are unremarkable except as noted in HPI and below Exam Const: General: comfortable HENMT: Face/Nose/Sinus: Normal nares present Eyes: Sclera: scleral abnormality (icteric sclerae) Neck: Neck: supple Chest: Other: + spider angioma Resp: Effort & Inspection: normal respiratory effort Cardio: Rate: regular rate GI: Inspection: distended GI Palp: Yes Soft to palpation, No Tenderness to palpation present (GI) and Yes Hernia present umbilical Auscultation: normal bowel sounds Other: + fluid wave Skin: General skin exam: normal color Neuro: Speech: normal speech Motor exam (neuro): 5/5 motor strength present throughout Extrem: General: edema bilateral Psych: Mental Status: mental status grossly normal Objective Data Vital Signs Vital Signs: Vital Signs - 24 hr 07/04/23 14:00 07/04/23 20:00 07/04/23 21:15 Temperature 98.3 F 98.3 F Pulse Rate 93 94 Respiratory Rate 18 18 Blood Pressure 115/60 127/66 Pulse Oximetry 93 93 Oxygen Delivery Room Air 07/05/23 05:10 07/05/23 09:00 Temperature 100.2 F H Pulse Rate 99 Respiratory Rate 20 Blood Pressure 110/54 L Pulse Oximetry 91 Oxygen Delivery Room Air Intake/Output Intake/Output: Intake & Output 07/02/23 07/03/23 07/04/23 07/05/23 23:59 23:59 23:59 23:59 Intake Total 1834.0 1284 2262 442 Output Total 5050 Balance -3216.0 1284 2262 442 Meds/Results Medications: Active Medications Generic Name Dose Route Start Last Admin Trade Name Freq PRN Reason Stop Dose Admin Acetaminophen 650 mg 07/05/23 09:08 Acetaminophen 325 Mg Tablet PO Q6H PRN Mild Pain (1-3) or Fever Al Hydrox/Mg Hydrox/Simethicone 30 ml 06/27/23 15:48 Mag Hydrox/Al Hydrox/Simeth 30 Ml Udc PO QID PRN Dyspepsia Diphenhydramine HCl 50 mg 06/29/23 13:48 06/29/23 14:23 Diphenhydramine Hcl Cap 25 Mg Capsule PO 50 mg Q6H PRN Administration Itching Enoxaparin Sodium 40 mg 06/28/23 09:00 07/05/23 09:04 Enoxaparin 40 Mg/0.4 Ml Syringe SUB-Q Not Given DAILY LENNY Furosemide 40 mg 07/03/23 17:00 07/05/23 09:05 Furosemide 40 Mg Tablet PO 40 mg BID LENNY Administration Albumin Human 100 mls @ 60 mls/hr 07/03/23 1
--- NOTE | 2023-07-05 13:17 | PM.IMPN ---
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 Workup the hospital included abdomen pelvis CT on 06/21 showing cirrhosis with portal hypertension, large amount of ascites with diffuse subcutaneous edema.? Chest x-ray showing bibasilar atelectasis.? Patient had a paracentesis with 3900 mL of yellow fluid removed.? Urine culture was obtained and was negative.? Blood cultures were obtained and also negative.? Peritoneal fluid was sent down for aerobic and anaerobic culture which were negative.? Initial labs shown a white blood cell count of 13.4, hemoglobin 11.6, platelet count 97, sodium 135, potassium 3.1, AST 67, ALT 38, total bili 5.0, albumin 3.2.? UA was obtained showing 1+ protein, 2+ urine blood, positive nitrate, 2+ bili, 2+ leukocytes, 3 urine RBCs, 11-20 urine wbc's.? Respiratory panel was also obtained and negative for influenza a and B, RSV, COVID. Patient state that her symptoms started since May of this year and had few paracentesis since then. She has not followed up with any park police. GI has been consulted. Status post paracentesis x2 this admission 1 on 06/27/2023 and another on 07/02/2023. Status post EGD which showed small grade 1 versus that were not actively bleeding and mild gastritis. Also 1 antitrypsin ceruloplasmin TAB pending AMA negative. Hepatitis profile negative. On Lasix 40 mg daily. Allergic to spironolactone. Add albumin. Increase Lasix to b.i.d. 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 Continue to monitor off antibiotic. Get cultures done. UA chest x-ray. WBC count within normal limit Mild chronic anemia Mild thrombocytopenia which is chronic. DVT prophylaxis Lovenox Subjective Date/time seen: 07/05/23 13:17 Interval history: Intermittent fever persist. Abdomen feels About the same. Leg swelling may be improving. Review of Systems Review of Systems: All systems reviewed & are unremarkable except as noted in HPI and below Exam Narrative: General: In no acute distress, well nourished Head: atraumatic, no encephalopathy Eyes: EOMI, PERRLA, sclera jaundice ENT: moist mucous membranes, nasal passages clear Neck: supple, no JVD, no adenopathy, trachea midline Cardiac: Normal S1 and S2.? RRR,? No murmur, gallops or friction rubs, peripheral pulses intact. Respiratory: Lungs clear to auscultation, no adventitious lung sounds, currently on room air Gastrointestinal: soft, distended, ascites present, anasarca, non-tender, normoactive bowel sounds. : voiding without difficulty. Extremities: moves all extremities well, 3 to 4+ pitting edema bilateral lower extremities, good ROM Skin:? Clean dry and intact Neuro: Alert and oriented x4, cranial nerves intact, no neuro deficits. Psych: normal mood, normal affect, interactive Objective Data Vital Signs Vital Signs: Vital Signs - 24 hr 07/04/23 14:00 07/04/23 20:00 07/04/23 21:15 Temperature 98.3 F 98.3 F Pulse Rate 93 94 Respiratory Rate 18 18 Blood Pressure 115/60 127/66 Pulse Oximetry 93 93 Oxygen Delivery Room Air 07/05/23 05:10 07/05/23 09:00 Temperature 100.2 F H Pulse Rate 99 Respiratory Rate 20 Blood Pressure 110/54 L Pulse Oximetry 91 Oxygen Delivery Room Air Intake/Output Intake/Output: Intake & Output 07/02/23 07/03/23 07/04/23 07/05/23 23:59 23:59 23:59 23:59 Intake Total 1834.0 1284 2262 442 Output Total 5050 Balance -3216.0 1284 2262 442 Meds/Results Medications: Active Medications Generic Name Dose Route
[2023-07-05 13:50] VITALS: BP 134/65; PULSE 97; RESP 18; TEMP 37.2; O2SAT 95
[2023-07-05] MEDS: DOXYCYCLINE 100 MG/NS 100 ML 100 MG/100 ML BAG IVPB (19:01)
[2023-07-05 19:51] LABS: Appearance Urine Cloudy (Clear); Bacteria Urine 1+ /hpf; Bilirubin Urine 1+ (Negative); Blood Urine 2+ (Negative); Color Urine Dark Yellow (Yellow); Glucose Urine UA Negative (Negative); Ketones Urine Negative (Negative); Leukocyte Esterase Ur Trace LEU/UL (Negative); Nitrate Urine Negative (Negative); Non Pathogenic Casts 0-2; Protein Urine Negative (Negative); Specific Grav Ur 1.025 (1.001-1.035); Squamous Epithelial Cell Urine Moderate /hpf (Few); WBC Urine 0-5 /hpf (0-3); pH Urine 5.5 (5.0-9.0)
[2023-07-05 19:55] LABS: Add Urine Microscopic? YES
[2023-07-05 20:15] VITALS: TEMP 38.2
[2023-07-05] MEDS: MIRTAZAPINE 7.5 MG TABLET PO (20:20)
[2023-07-05] MEDS: traMADol HCL (*CRX) 25 MG TABLET PO (21:02)
[2023-07-05 21:05] VITALS: BP 112/66; PULSE 95; RESP 18; TEMP 38.2; O2SAT 95
[2023-07-06 05:25] VITALS: BP 97/56; PULSE 99; RESP 20; TEMP 36.5; O2SAT 92
[2023-07-06] MEDS: ALBUMIN HUMAN 25% 25 GM/100 ML 100 ML IVPB ×4 (05:25→23:38)
[2023-07-06] MEDS: DOXYCYCLINE 100 MG/NS 100 ML 100 MG/100 ML BAG IVPB ×2 (05:25→17:28)
[2023-07-06] MEDS: LEVOTHYROXINE SODIUM 100 MCG TABLET 200 MCG PO (05:26)
[2023-07-06 06:12] LABS: Basophils Absolute Auto 0.1 K/mm3 (0.0-0.1); Basophils Percent Auto 0.9 % (0.2-1.2); Eosinophils Absolute Auto 0.3 K/mm3 (0-0.3); Eosinophils Percent Auto 4.8 % (0-4.4); Hematocrit 31.6 % (37.0-47.0); Immature Granulocyte Absolute 0.02 K/mm3 (0.00-0.031); Immature Granulocyte Percent A 0.3 % (0-0.5); Immature Platelet Fraction Pct 2.3 % (0.9-11.2); Lymphocytes Absolute Auto 2.07 K/mm3 (0.9-3.2); Lymphocytes Percent Auto 35.8 % (18.3-44.2); Mean Corpuscular HGB Conc 31.6 g/dl (32-36); Mean Corpuscular Hemoglobin 35.7 pg (26-34); Mean Corpuscular Volume 112.9 fl (80-100); Mean Platelet Volume 10.1 fl (7.4-10.4); Monocytes Absolute Auto 0.9 K/mm3 (0.1-0.6); Monocytes Percent Auto 14.7 % (2.6-8.5); Neutrophils Absolute Auto 2.5 K/mm3 (1.3-6.7); Neutrophils Percent Auto 43.5 % (45.5-73.1); Platelet Count Result 92 k/mm3 (150-375); Red Cell Distribution Width 16.8 % (11.5-14.5); White Blood Count 5.8 K/mm3 (4.5-10.0)
[2023-07-06 06:19] LABS: Alanine Aminotransferase 17 U/L (6-35); Albumin Level 3.6 g/dL (3.5-5.1); Alkaline Phosphatase 83 U/L (38-126); Anion Gap 5 mmol/L (4-12); Aspartate Amino Transferase 40 U/L (14-36); Bilirubin,Total 5.3 mg/dL (0.2-1.3); Blood Urea Nitrogen 9 mg/dL (7-17); Calcium 8.7 mg/dL (8.4-10.2); Carbon Dioxide 25 mmol/L (22-30); Chloride 107 mmol/L (98-107); Estimated CRCL calculation 144 ml/min; Estimated Glomerular Filt Rate > 60; Glucose 84 mg/dL (65-110); Potassium 3.6 mmol/L (3.4-5.0); Sodium 137 mmol/L (137-145)
[2023-07-06 06:58] LABS: Anisocytosis 1+; Platelet Estimate Decreased (Adequate); Schistocytes None Seen
[2023-07-06] MEDS: TOLNAFTATE 1% POWDER 45 GM BTL 1 APPLIC TOPICAL ×2 (08:31→20:17)
[2023-07-06] MEDS: THIAMINE HCL 100 MG TABLET PO (08:31)
[2023-07-06] MEDS: VITAMIN E 400 UNIT CAPSULE 800 UNIT PO (08:31)
[2023-07-06] MEDS: FUROSEMIDE 40 MG TABLET PO ×2 (08:31→17:28)
[2023-07-06 14:00] VITALS: BP 133/66; PULSE 91; RESP 22; TEMP 36.9; O2SAT 93
--- NOTE | 2023-07-06 14:27 | PM.IMPN ---
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 Workup the hospital included abdomen pelvis CT on 06/21 showing cirrhosis with portal hypertension, large amount of ascites with diffuse subcutaneous edema.? Chest x-ray showing bibasilar atelectasis.? Patient had a paracentesis with 3900 mL of yellow fluid removed.? Urine culture was obtained and was negative.? Blood cultures were obtained and also negative.? Peritoneal fluid was sent down for aerobic and anaerobic culture which were negative.? Initial labs shown a white blood cell count of 13.4, hemoglobin 11.6, platelet count 97, sodium 135, potassium 3.1, AST 67, ALT 38, total bili 5.0, albumin 3.2.? UA was obtained showing 1+ protein, 2+ urine blood, positive nitrate, 2+ bili, 2+ leukocytes, 3 urine RBCs, 11-20 urine wbc's.? Respiratory panel was also obtained and negative for influenza a and B, RSV, COVID. Patient state that her symptoms started since May of this year and had few paracentesis since then. She has not followed up with any brim presser. GI has been consulted. Status post paracentesis x2 this admission 1 on 06/27/2023 and another on 07/02/2023. Status post EGD which showed small grade 1 versus that were not actively bleeding and mild gastritis. Also 1 antitrypsin ceruloplasmin TAB pending AMA negative. Hepatitis profile negative. On Lasix 40 mg daily. Allergic to spironolactone. Add albumin. Increase Lasix to b.i.d. 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 Continue to monitor off antibiotic. Get cultures done. UA chest x-ray. WBC count within normal limit. Blood culture to date negative chest x-ray had pulmonary opacities started on doxycycline Mild chronic anemia Mild thrombocytopenia which is chronic. DVT prophylaxis Lovenox Subjective Date/time seen: 07/06/23 14:27 Interval history: Patient remains febrile. Complains of diffuse pain. Venous duplex caused her to hurt so much did not wanted to do paracentesis today. Review of Systems Review of Systems: All systems reviewed & are unremarkable except as noted in HPI and below Exam Narrative: General: In no acute distress, well nourished Head: atraumatic, no encephalopathy Eyes: EOMI, PERRLA, sclera jaundice ENT: moist mucous membranes, nasal passages clear Neck: supple, no JVD, no adenopathy, trachea midline Cardiac: Normal S1 and S2.? RRR,? No murmur, gallops or friction rubs, peripheral pulses intact. Respiratory: Lungs clear to auscultation, no adventitious lung sounds, currently on room air Gastrointestinal: soft, distended, ascites present, anasarca, non-tender, normoactive bowel sounds. : voiding without difficulty. Extremities: moves all extremities well, 3 to 4+ pitting edema bilateral lower extremities, good ROM Skin:? Clean dry and intact Neuro: Alert and oriented x4, cranial nerves intact, no neuro deficits. Psych: normal mood, normal affect, interactive Objective Data Vital Signs Vital Signs: Vital Signs - 24 hr 07/05/23 20:00 07/05/23 20:15 07/05/23 21:05 Temperature 100.7 F H 100.7 F H Pulse Rate 95 Respiratory Rate 18 Blood Pressure 112/66 Pulse Oximetry 95 Oxygen Delivery Room Air 07/06/23 05:25 07/06/23 08:31 07/06/23 14:00 Temperature 97.7 F 98.5 F Pulse Rate 99 91 Respiratory Rate 20 22 H Blood Pressure 97/56 L 133/66 Pulse Oximetry 92 93 Oxygen Delivery Room Air Inta
--- NOTE | 2023-07-06 17:32 | WPDGIPROGNO ---
Progress Note: A&P Assessment and Plan (1) Decompensation of cirrhosis of liver: Code(s): K72.90 - Hepatic failure, unspecified without coma; K74.60 - Unspecified cirrhosis of liver Status: Acute Assessment and Plan: referred to hepatology as outpatient- ? TIPS- requiring paracentesis, also small size EV she has decompensated cirrhosis with ascites, she claims that had allergic response to aldactone, now only on lasix had low grade fever, normal wbc will get another paracentesis (recent fluid study without sbp) (2) Abdominal ascites: Code(s): R18.8 - Other ascites Status: Acute Assessment and Plan: s/p paracentesis she did not feel today like having another paracentesis probably tomorrow noted low grade fever, started empirically on doxycycline because atelectasis in lungs, normal wbc 2g na diet only lasix, ? allergic to aldactone (3) Alcohol use: Code(s): Z78.9 - Other specified health status Status: Acute (4) Elevated liver enzymes: Code(s): R74.8 - Abnormal levels of other serum enzymes Status: Acute Assessment and Plan: bili 4-5 (5) Thrombocytopenia: Code(s): D69.6 - Thrombocytopenia, unspecified Status: Acute Assessment and Plan: from liver disease (6) Portal hypertension: Code(s): K76.6 - Portal hypertension Status: Acute (7) Colon cancer screening: Code(s): Z12.11 - Encounter for screening for malignant neoplasm of colon Status: Acute Assessment and Plan: never had one she is willing to have one as outpatient, will set up Subjective Date/time seen: 07/06/23 17:32 Interval history: yesterday low grade fever, normal temperature today no changes, just generalized weakness Review of Systems Review of Systems: All systems reviewed & are unremarkable except as noted in HPI and below Exam Const: General: comfortable HENMT: Face/Nose/Sinus: Normal nares present Eyes: Sclera: scleral abnormality (icteric sclerae) Neck: Neck: supple Chest: Other: + spider angioma Resp: Effort & Inspection: normal respiratory effort Cardio: Rate: regular rate GI: Inspection: distended GI Palp: Yes Soft to palpation, No Tenderness to palpation present (GI) and Yes Hernia present umbilical Auscultation: normal bowel sounds Other: + fluid wave Skin: General skin exam: normal color Neuro: Speech: normal speech Motor exam (neuro): 5/5 motor strength present throughout Extrem: General: edema bilateral Psych: Mental Status: mental status grossly normal Objective Data Vital Signs Vital Signs: Vital Signs - 24 hr 07/05/23 20:00 07/05/23 20:15 07/05/23 21:05 Temperature 100.7 F H 100.7 F H Pulse Rate 95 Respiratory Rate 18 Blood Pressure 112/66 Pulse Oximetry 95 Oxygen Delivery Room Air 07/06/23 05:25 07/06/23 08:31 07/06/23 14:00 Temperature 97.7 F 98.5 F Pulse Rate 99 91 Respiratory Rate 20 22 H Blood Pressure 97/56 L 133/66 Pulse Oximetry 92 93 Oxygen Delivery Room Air Intake/Output Intake/Output: Intake & Output 07/03/23 07/04/23 07/05/23 07/06/23 23:59 23:59 23:59 23:59 Intake Total 1284 2262 1182 1902 Balance 1284 2262 1182 1902 Meds/Results Medications: Active Medications Generic Name Dose Route Start Last Admin Trade Name Freq PRN Reason Stop Dose Admin Acetaminophen 650 mg 07/05/23 09:08 Acetaminophen 325 Mg Tablet PO Q6H PRN Mild Pain (1-3) or Fever Al Hydrox/Mg Hydrox/Simethicone 30 ml 06/27/23 15:48 Mag Hydrox/Al Hydrox/Simeth 30 Ml Udc PO QID PRN Dyspepsia Diphenhydramine HCl 50 mg 06/29/23 13:48 06/29/23 14:23 Diphenhydramine Hcl Cap 25 Mg Capsule PO 50 mg Q6H PRN Administration Itching Enoxaparin Sodium 40 mg 06/28/23 09:00 07/06/23 08:20 Enoxaparin 40 Mg/0.4 Ml Syringe SUB-Q Not Given DAILY LENNY Furosemide 40 mg 07/03/23 17:00 07/06/23
[2023-07-06] MEDS: ACETAMINOPHEN 325 MG TABLET 650 MG PO (18:45)
[2023-07-06] MEDS: MIRTAZAPINE 7.5 MG TABLET PO (20:16)
[2023-07-06 22:00] VITALS: BP 96/39; PULSE 107; RESP 17; TEMP 37.3; O2SAT 90
[2023-07-07] MEDS: ALBUMIN HUMAN 25% 25 GM/100 ML 100 ML IVPB ×3 (05:15→18:12)
[2023-07-07] MEDS: LEVOTHYROXINE SODIUM 100 MCG TABLET 200 MCG PO (05:16)
[2023-07-07] MEDS: DOXYCYCLINE 100 MG/NS 100 ML 100 MG/100 ML BAG IVPB ×2 (05:16→17:08)
[2023-07-07 06:00] VITALS: BP 117/59; PULSE 100; RESP 17; TEMP 36.9; O2SAT 92
[2023-07-07 06:24] LABS: Basophils Absolute Auto 0.1 K/mm3 (0.0-0.1); Basophils Percent Auto 1.2 % (0.2-1.2); Eosinophils Absolute Auto 0.2 K/mm3 (0-0.3); Eosinophils Percent Auto 3.3 % (0-4.4); Hematocrit 29.3 % (37.0-47.0); Hemoglobin 9.4 g/dL (12.0-15.0); Immature Granulocyte Absolute 0.02 K/mm3 (0.00-0.031); Immature Granulocyte Percent A 0.4 % (0-0.5); Immature Platelet Fraction Pct 2.1 % (0.9-11.2); Lymphocytes Absolute Auto 1.41 K/mm3 (0.9-3.2); Lymphocytes Percent Auto 28.9 % (18.3-44.2); Mean Corpuscular HGB Conc 32.1 g/dl (32-36); Mean Corpuscular Hemoglobin 35.6 pg (26-34); Mean Platelet Volume 10.2 fl (7.4-10.4); Monocytes Absolute Auto 0.7 K/mm3 (0.1-0.6); Monocytes Percent Auto 15.2 % (2.6-8.5); Neutrophils Absolute Auto 2.5 K/mm3 (1.3-6.7); Platelet Count Result 76 k/mm3 (150-375); Red Blood Count 2.64 M/mm3 (4.2-5.4); Red Cell Distribution Width 17.1 % (11.5-14.5); White Blood Count 4.9 K/mm3 (4.5-10.0)
[2023-07-07 06:35] LABS: Alanine Aminotransferase 15 U/L (6-35); Albumin Level 3.8 g/dL (3.5-5.1); Alkaline Phosphatase 56 U/L (38-126); Anion Gap 6 mmol/L (4-12); Aspartate Amino Transferase 34 U/L (14-36); Blood Urea Nitrogen 10 mg/dL (7-17); Calcium 9.1 mg/dL (8.4-10.2); Carbon Dioxide 23 mmol/L (22-30); Chloride 107 mmol/L (98-107); Estimated CRCL calculation 122 ml/min; Estimated Glomerular Filt Rate > 60; Glucose 91 mg/dL (65-110); Magnesium 1.9 mg/dL (1.6-2.3); Potassium 3.4 mmol/L (3.4-5.0); Sodium 136 mmol/L (137-145)
[2023-07-07] MEDS: VITAMIN E 400 UNIT CAPSULE 800 UNIT PO (10:31)
[2023-07-07] MEDS: THIAMINE HCL 100 MG TABLET PO (10:31)
[2023-07-07] MEDS: FUROSEMIDE 40 MG TABLET PO ×2 (10:31→16:45)
[2023-07-07 14:00] VITALS: BP 115/46; PULSE 104; RESP 20; TEMP 37.6; O2SAT 90
[2023-07-07] MEDS: HYDROcodone/acetaminophen (*CRX) 5-325 MG TABLET 1 TAB PO (14:19)
--- NOTE | 2023-07-07 14:52 | PM.IMPN ---
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 Workup the hospital included abdomen pelvis CT on 06/21 showing cirrhosis with portal hypertension, large amount of ascites with diffuse subcutaneous edema.? Chest x-ray showing bibasilar atelectasis.? Patient had a paracentesis with 3900 mL of yellow fluid removed.? Urine culture was obtained and was negative.? Blood cultures were obtained and also negative.? Peritoneal fluid was sent down for aerobic and anaerobic culture which were negative.? Initial labs shown a white blood cell count of 13.4, hemoglobin 11.6, platelet count 97, sodium 135, potassium 3.1, AST 67, ALT 38, total bili 5.0, albumin 3.2.? UA was obtained showing 1+ protein, 2+ urine blood, positive nitrate, 2+ bili, 2+ leukocytes, 3 urine RBCs, 11-20 urine wbc's.? Respiratory panel was also obtained and negative for influenza a and B, RSV, COVID. Patient state that her symptoms started since May of this year and had few paracentesis since then. She has not followed up with any field education director. GI has been consulted. Status post paracentesis x2 this admission 1 on 06/27/2023 and another on 07/02/2023. Status post EGD which showed small grade 1 versus that were not actively bleeding and mild gastritis. Also 1 antitrypsin ceruloplasmin TAB pending AMA negative. Hepatitis profile negative. On Lasix 40 mg daily. Allergic to spironolactone. Add albumin. Increase Lasix to b.i.d. 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 Limited evaluation of the left when femoral veins. Otherwise patent bilateral lower extremity veins Fever mild monitor no signs of infection. Continue to monitor off antibiotic. Get cultures done. UA chest x-ray. WBC count within normal limit. Blood culture to date negative chest x-ray had pulmonary opacities started on doxycycline. Discussed getting paracentesis to rule out SBP. Mild chronic anemia Mild thrombocytopenia which is chronic. DVT prophylaxis Lovenox Subjective Date/time seen: 07/07/23 14:52 Interval history: Feels ill. Remained afebrile. She leg pain is improved. Some headache ongoing. Review of Systems Review of Systems: All systems reviewed & are unremarkable except as noted in HPI and below Exam Narrative: General: In no acute distress, well nourished Head: atraumatic, no encephalopathy Eyes: EOMI, PERRLA, sclera jaundice ENT: moist mucous membranes, nasal passages clear Neck: supple, no JVD, no adenopathy, trachea midline Cardiac: Normal S1 and S2.? RRR,? No murmur, gallops or friction rubs, peripheral pulses intact. Respiratory: Lungs clear to auscultation, no adventitious lung sounds, currently on room air Gastrointestinal: soft, distended, ascites present, anasarca, non-tender, normoactive bowel sounds. : voiding without difficulty. Extremities: moves all extremities well, 3 to 4+ pitting edema bilateral lower extremities, good ROM Skin:? Clean dry and intact Neuro: Alert and oriented x4, cranial nerves intact, no neuro deficits. Psych: normal mood, normal affect, interactive Objective Data Vital Signs Vital Signs: Vital Signs - 24 hr 07/06/23 20:00 07/06/23 22:00 07/07/23 06:00 Temperature 99.2 F 98.4 F Pulse Rate 107 H 100 Respiratory Rate 17 17 Blood Pressure 96/39 L 117/59 L Pulse Oximetry 90 92 Oxygen Delivery Room Air 07/07/23 14:00 Temperature 99.7 F H Pulse Rate 104 H Respiratory Rate 20 Blood Pressure 115/46 L Pulse Oximetry 9
[2023-07-07 15:22] VITALS: TEMP 37.6
--- NOTE | 2023-07-07 16:10 | WPDGIPROGNO ---
Progress Note: A&P Assessment and Plan (1) Decompensation of cirrhosis of liver: Code(s): K72.90 - Hepatic failure, unspecified without coma; K74.60 - Unspecified cirrhosis of liver Status: Acute Assessment and Plan: referred to hepatology as outpatient- ? TIPS- requiring paracentesis, also small size EV she has decompensated cirrhosis with ascites, she claims that had allergic response to aldactone, now only on lasix no more fever but started on abx because atelectasis, normal wbc will get another paracentesis (recent fluid study without sbp) (2) Abdominal ascites: Code(s): R18.8 - Other ascites Status: Acute Assessment and Plan: s/p paracentesis on admission, will try to get another one if possible 2g na diet only lasix, ? allergic to aldactone (3) Alcohol use: Code(s): Z78.9 - Other specified health status Status: Acute (4) Elevated liver enzymes: Code(s): R74.8 - Abnormal levels of other serum enzymes Status: Acute (5) Thrombocytopenia: Code(s): D69.6 - Thrombocytopenia, unspecified Status: Acute Assessment and Plan: from liver disease (6) Portal hypertension: Code(s): K76.6 - Portal hypertension Status: Acute (7) Colon cancer screening: Code(s): Z12.11 - Encounter for screening for malignant neoplasm of colon Status: Acute Assessment and Plan: never had one she is willing to have one as outpatient, will set up Subjective Date/time seen: 07/07/23 16:10 Interval history: she has been complaining of headache for last 2-3 days, still generalized weakness. Review of Systems Review of Systems: All systems reviewed & are unremarkable except as noted in HPI and below Exam Const: General: comfortable HENMT: Face/Nose/Sinus: Normal nares present Eyes: Sclera: scleral abnormality (icteric sclerae) Neck: Neck: supple Chest: Other: + spider angioma Resp: Effort & Inspection: normal respiratory effort Cardio: Rate: regular rate GI: Inspection: distended GI Palp: Yes Soft to palpation, No Tenderness to palpation present (GI) and Yes Hernia present umbilical Auscultation: normal bowel sounds Other: + fluid wave Skin: General skin exam: normal color Neuro: Speech: normal speech Motor exam (neuro): 5/5 motor strength present throughout Extrem: General: edema bilateral Psych: Mental Status: mental status grossly normal Objective Data Vital Signs Vital Signs: Vital Signs - 24 hr 07/06/23 20:00 07/06/23 22:00 07/07/23 06:00 Temperature 99.2 F 98.4 F Pulse Rate 107 H 100 Respiratory Rate 17 17 Blood Pressure 96/39 L 117/59 L Pulse Oximetry 90 92 Oxygen Delivery Room Air 07/07/23 14:00 07/07/23 15:22 Temperature 99.7 F H 99.7 F H Pulse Rate 104 H Respiratory Rate 20 Blood Pressure 115/46 L Pulse Oximetry 90 Oxygen Delivery Intake/Output Intake/Output: Intake & Output 07/04/23 07/05/23 07/06/23 07/07/23 23:59 23:59 23:59 23:59 Intake Total 2262 1182 2324 1059 Balance 2262 1182 2324 1059 Meds/Results Medications: Active Medications Generic Name Dose Route Start Last Admin Trade Name Freq PRN Reason Stop Dose Admin Acetaminophen 650 mg 07/05/23 09:08 07/06/23 18:45 Acetaminophen 325 Mg Tablet PO 650 mg Q6H PRN Administration Mild Pain (1-3) or Fever Hydrocodone Bitart/Acetaminophen 1 tab 07/07/23 14:11 07/07/23 14:19 Hydrocodone/Acetaminophen (*Crx) 5-325 Mg Tablet PO 1 tab Q6H PRN Administration Pain Rated 4-6 Al Hydrox/Mg Hydrox/Simethicone 30 ml 06/27/23 15:48 Mag Hydrox/Al Hydrox/Simeth 30 Ml Udc PO QID PRN Dyspepsia Diphenhydramine HCl 50 mg 06/29/23 13:48 06/29/23 14:23 Diphenhydramine Hcl Cap 25 Mg Capsule PO 50 mg Q6H PRN Administration Itching Enoxaparin Sodium 40 mg 06/28/23 09:00 07/07/23 08:16 Enoxaparin 40 Mg/0.4 Ml Syringe SUB-Q Not
[2023-07-07 17:15] VITALS: TEMP 37.9
[2023-07-07] MEDS: ACETAMINOPHEN 325 MG TABLET 650 MG PO (17:15)
[2023-07-07 18:13] VITALS: TEMP 37.6
[2023-07-07 21:10] VITALS: BP 115/61; PULSE 102; RESP 20; TEMP 37; O2SAT 92
[2023-07-07] MEDS: MIRTAZAPINE 7.5 MG TABLET PO (21:11)
[2023-07-08] VITALS (7 sets, daily range): BP systolic 110–141; BP diastolic 57–61; PULSE 90–108; RESP 15–20; TEMP 36.7–37.3; O2SAT 84–95
[2023-07-08] MEDS: ALBUMIN HUMAN 25% 25 GM/100 ML 100 ML IVPB ×3 (01:39→12:47)
[2023-07-08] MEDS: DOXYCYCLINE 100 MG/NS 100 ML 100 MG/100 ML BAG IVPB (04:45)
[2023-07-08] MEDS: LEVOTHYROXINE SODIUM 100 MCG TABLET 200 MCG PO (04:46)
[2023-07-08 06:31] LABS: Basophils Absolute Auto 0.1 K/mm3 (0.0-0.1); Basophils Percent Auto 1.2 % (0.2-1.2); Eosinophils Absolute Auto 0.2 K/mm3 (0-0.3); Hematocrit 29.5 % (37.0-47.0); Hemoglobin 9.2 g/dL (12.0-15.0); Immature Granulocyte Absolute 0.02 K/mm3 (0.00-0.031); Immature Granulocyte Percent A 0.3 % (0-0.5); Lymphocytes Absolute Auto 1.47 K/mm3 (0.9-3.2); Lymphocytes Percent Auto 24.6 % (18.3-44.2); Mean Corpuscular HGB Conc 31.2 g/dl (32-36); Mean Corpuscular Hemoglobin 35.1 pg (26-34); Mean Corpuscular Volume 112.6 fl (80-100); Mean Platelet Volume 10.2 fl (7.4-10.4); Monocytes Percent Auto 16.2 % (2.6-8.5); Neutrophils Absolute Auto 3.3 K/mm3 (1.3-6.7); Neutrophils Percent Auto 54.7 % (45.5-73.1); Platelet Count Result 79 k/mm3 (150-375); Red Blood Count 2.62 M/mm3 (4.2-5.4)
[2023-07-08 06:42] LABS: Alanine Aminotransferase 15 U/L (6-35); Albumin Level 4.3 g/dL (3.5-5.1); Alkaline Phosphatase 52 U/L (38-126); Anion Gap 9 mmol/L (4-12); Aspartate Amino Transferase 34 U/L (14-36); Bilirubin,Total 8.2 mg/dL (0.2-1.3); Blood Urea Nitrogen 11 mg/dL (7-17); Carbon Dioxide 22 mmol/L (22-30); Chloride 106 mmol/L (98-107); Estimated CRCL calculation 144 ml/min; Estimated Glomerular Filt Rate > 60; Glucose 86 mg/dL (65-110); Magnesium 1.9 mg/dL (1.6-2.3); Potassium 3.5 mmol/L (3.4-5.0); Sodium 137 mmol/L (137-145)
[2023-07-08 07:13] LABS: Calcium 9.1 mg/dL (8.4-10.2)
[2023-07-08] MEDS: THIAMINE HCL 100 MG TABLET PO (09:40)
[2023-07-08] MEDS: FUROSEMIDE 40 MG TABLET PO ×2 (09:40→16:25)
[2023-07-08] MEDS: HYDROcodone/acetaminophen (*CRX) 5-325 MG TABLET 1 TAB PO ×2 (09:41→16:25)
[2023-07-08] MEDS: VITAMIN E 400 UNIT CAPSULE 800 UNIT PO ×2 (09:41→12:23)
[2023-07-08 12:10] LABS: ANA Pattern Nuclear, Speckled; Anti Nuclear Antibody Pattern Nuclear, Nucleolar; Anti Nuclear Antibody Titer >=1:1280 (Negative)
--- NOTE | 2023-07-08 14:31 | PM.IMPN ---
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 Workup the hospital included abdomen pelvis CT on 06/21 showing cirrhosis with portal hypertension, large amount of ascites with diffuse subcutaneous edema.? Chest x-ray showing bibasilar atelectasis.? Patient had a paracentesis with 3900 mL of yellow fluid removed.? Urine culture was obtained and was negative.? Blood cultures were obtained and also negative.? Peritoneal fluid was sent down for aerobic and anaerobic culture which were negative.? Initial labs shown a white blood cell count of 13.4, hemoglobin 11.6, platelet count 97, sodium 135, potassium 3.1, AST 67, ALT 38, total bili 5.0, albumin 3.2.? UA was obtained showing 1+ protein, 2+ urine blood, positive nitrate, 2+ bili, 2+ leukocytes, 3 urine RBCs, 11-20 urine wbc's.? Respiratory panel was also obtained and negative for influenza a and B, RSV, COVID. Patient state that her symptoms started since May of this year and had few paracentesis since then. She has not followed up with any concrete stone finisher. GI has been consulted. Status post paracentesis x2 this admission 1 on 06/27/2023 and another on 07/02/2023. Status post EGD which showed small grade 1 versus that were not actively bleeding and mild gastritis. Also 1 antitrypsin ceruloplasmin TAB highly positive will get double-stranded DNA anti Talavera antibody SSA/SSB centromere/ribosomal. She could have autoimmune hepatitis. GI has started her on prednisone do a. AMA negative. Hepatitis profile negative. On Lasix 40 mg daily. Allergic to spironolactone. Add albumin. Increase Lasix to b.i.d. 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 Limited evaluation of the left when femoral veins. Otherwise patent bilateral lower extremity veins Fever mild monitor no signs of infection. Continue to monitor off antibiotic. Get cultures done. UA chest x-ray. WBC count within normal limit. Blood culture to date negative chest x-ray had pulmonary opacities started on doxycycline. Discussed getting paracentesis to rule out SBP. Will order 1 again today Mild chronic anemia Mild thrombocytopenia which is chronic. DVT prophylaxis Lovenox been on hold due to thrombocytopenia Subjective Date/time seen: 07/08/23 14:31 Interval history: Frontal headache feels super tired. Leg swelling about the same. Review of Systems Review of Systems: All systems reviewed & are unremarkable except as noted in HPI and below Exam Narrative: General: In no acute distress, well nourished Head: atraumatic, no encephalopathy Eyes: EOMI, PERRLA, sclera jaundice ENT: moist mucous membranes, nasal passages clear Neck: supple, no JVD, no adenopathy, trachea midline Cardiac: Normal S1 and S2.? RRR,? No murmur, gallops or friction rubs, peripheral pulses intact. Respiratory: Lungs clear to auscultation, no adventitious lung sounds, currently on room air Gastrointestinal: soft, distended, ascites present, anasarca, non-tender, normoactive bowel sounds. : voiding without difficulty. Extremities: moves all extremities well, 2+ pitting edema bilateral lower extremities, good ROM Skin:? Clean dry and intact Neuro: Alert and oriented x4, cranial nerves intact, no neuro deficits. Psych: normal mood, normal affect, interactive Objective Data Vital Signs Vital Signs: Vital Signs - 24 hr 07/07/23 15:22 07/07/23 17:15 07/07/23 18:13 Temperature 99.7 F H 100.2 F H 99.7 F H Pulse Rate Respiratory Rate
--- NOTE | 2023-07-08 15:17 | WPDGIPROGNO ---
Progress Note: A&P Assessment and Plan (1) TAB positive: Code(s): R76.8 - Other specified abnormal immunological findings in serum Status: Acute Assessment and Plan: TAB highly positive wonder if she could have autoimmune hepatitis, AMA negative will check also igg and igm start on prednisone 30 mg daily, also will order TPMT activity (see if she could be a candidate to use imuran later on)- will need follow with hepatology (2) Decompensation of cirrhosis of liver: Code(s): K72.90 - Hepatic failure, unspecified without coma; K74.60 - Unspecified cirrhosis of liver Status: Acute Assessment and Plan: referred to hepatology as outpatient- s/p paracentesis, also small size EV she has decompensated cirrhosis with ascites, she claims that had allergic response to aldactone, now only on lasix (3) Abdominal ascites: Code(s): R18.8 - Other ascites Status: Acute Assessment and Plan: s/p paracentesis on admission 2g na diet only lasix, ? allergic to aldactone (4) Alcohol use: Code(s): Z78.9 - Other specified health status Status: Acute (5) Elevated liver enzymes: Code(s): R74.8 - Abnormal levels of other serum enzymes Status: Acute Assessment and Plan: also noted + TAB ? AIH (6) Thrombocytopenia: Code(s): D69.6 - Thrombocytopenia, unspecified Status: Acute Assessment and Plan: from liver disease (7) Portal hypertension: Code(s): K76.6 - Portal hypertension Status: Acute (8) Colon cancer screening: Code(s): Z12.11 - Encounter for screening for malignant neoplasm of colon Status: Acute Assessment and Plan: never had one she is willing to have one as outpatient, will set up Subjective Date/time seen: 07/08/23 15:17 Interval history: no changes, still generalized weakness Review of Systems Review of Systems: All systems reviewed & are unremarkable except as noted in HPI and below Exam Const: General: comfortable HENMT: Face/Nose/Sinus: Normal nares present Eyes: Sclera: scleral abnormality (icteric sclerae) Neck: Neck: supple Chest: Other: + spider angioma Resp: Effort & Inspection: normal respiratory effort Cardio: Rate: regular rate GI: Inspection: distended GI Palp: Yes Soft to palpation, No Tenderness to palpation present (GI) and Yes Hernia present umbilical Auscultation: normal bowel sounds Other: + fluid wave Skin: General skin exam: normal color Other: similar scaly rash in face Neuro: Speech: normal speech Motor exam (neuro): 5/5 motor strength present throughout Extrem: General: edema bilateral Psych: Mental Status: mental status grossly normal Objective Data Vital Signs Vital Signs: Vital Signs - 24 hr 07/07/23 15:22 07/07/23 17:15 07/07/23 18:13 Temperature 99.7 F H 100.2 F H 99.7 F H Pulse Rate Respiratory Rate Blood Pressure Pulse Oximetry Oxygen Delivery 07/07/23 21:10 07/07/23 20:00 07/08/23 05:42 Temperature 98.6 F 99.2 F Pulse Rate 102 H 108 H Respiratory Rate 20 20 Blood Pressure 115/61 110/61 Pulse Oximetry 92 92 Oxygen Delivery Room Air 07/08/23 14:00 07/08/23 08:00 Temperature 98.0 F Pulse Rate 97 97 Respiratory Rate 18 18 Blood Pressure 120/57 L Pulse Oximetry 92 92 Oxygen Delivery Room Air Intake/Output Intake/Output: Intake & Output 07/05/23 07/06/23 07/07/23 07/08/23 23:59 23:59 23:59 23:59 Intake Total 1182 2324 1499 300 Balance 1182 2324 1499 300 Meds/Results Medications: Active Medications Generic Name Dose Route Start Last Admin Trade Name Freq PRN Reason Stop Dose Admin Acetaminophen 650 mg 07/05/23 09:08 07/07/23 17:15 Acetaminophen 325 Mg Tablet PO 650 mg Q6H PRN Administration Mild Pain (1-3) or Fever Hydrocodone Bitart/Acetaminophen 1 tab 07/07/23 14:11 07/08/23 09:41 Hydrocodone/Acetaminophen (*Crx)
[2023-07-08] MEDS: DOXYCYCLINE HYCLATE 100 MG TABLET PO (18:16)
[2023-07-08] MEDS: MIRTAZAPINE 7.5 MG TABLET PO (20:59)
[2023-07-09 03:40] VITALS: O2SAT 89
[2023-07-09 03:44] VITALS: PULSE 113; O2SAT 92
[2023-07-09 05:36] VITALS: BP 132/50; PULSE 96; RESP 14; TEMP 37.8; O2SAT 91
[2023-07-09 06:10] LABS: Basophils Absolute Auto 0.1 K/mm3 (0.0-0.1); Eosinophils Absolute Auto 0.2 K/mm3 (0-0.3); Eosinophils Percent Auto 2.4 % (0-4.4); Hematocrit 28.3 % (37.0-47.0); Immature Granulocyte Absolute 0.04 K/mm3 (0.00-0.031); Immature Granulocyte Percent A 0.6 % (0-0.5); Immature Platelet Fraction Pct 3.1 % (0.9-11.2); Lymphocytes Absolute Auto 1.64 K/mm3 (0.9-3.2); Lymphocytes Percent Auto 26.3 % (18.3-44.2); Mean Corpuscular HGB Conc 31.8 g/dl (32-36); Mean Corpuscular Hemoglobin 35.6 pg (26-34); Mean Corpuscular Volume 111.9 fl (80-100); Mean Platelet Volume 10.1 fl (7.4-10.4); Monocytes Absolute Auto 1.1 K/mm3 (0.1-0.6); Monocytes Percent Auto 17.3 % (2.6-8.5); Neutrophils Absolute Auto 3.3 K/mm3 (1.3-6.7); Neutrophils Percent Auto 52.4 % (45.5-73.1); Platelet Count Result 74 k/mm3 (150-375); Red Blood Count 2.53 M/mm3 (4.2-5.4); Red Cell Distribution Width 16.9 % (11.5-14.5); White Blood Count 6.2 K/mm3 (4.5-10.0)
[2023-07-09 06:21] LABS: Alanine Aminotransferase 14 U/L (6-35); Albumin Level 4.1 g/dL (3.5-5.1); Alkaline Phosphatase 49 U/L (38-126); Anion Gap 7 mmol/L (4-12); Aspartate Amino Transferase 31 U/L (14-36); Bilirubin,Total 8.3 mg/dL (0.2-1.3); Blood Urea Nitrogen 12 mg/dL (7-17); Calcium 9.1 mg/dL (8.4-10.2); Carbon Dioxide 23 mmol/L (22-30); Chloride 107 mmol/L (98-107); Estimated CRCL calculation 144 ml/min; Estimated Glomerular Filt Rate > 60; Glucose 87 mg/dL (65-110); Immunoglobulin G 1611 mg/dL (700-1600); Immunoglobulin M 162 mg/dL (40-230); Magnesium 1.9 mg/dL (1.6-2.3); Potassium 3.4 mmol/L (3.4-5.0); Sodium 137 mmol/L (137-145)
[2023-07-09 08:01] LABS: Hypochromasia 1+; Macrocytosis 1+ (NORMAL); Platelet Estimate Decreased (Adequate); Schistocytes None Seen
[2023-07-09] MEDS: HYDROcodone/acetaminophen (*CRX) 5-325 MG TABLET 1 TAB PO (08:42)
[2023-07-09] MEDS: ACETAMINOPHEN 325 MG TABLET 650 MG PO (08:43)
[2023-07-09] MEDS: predniSONE 20 MG, predniSONE 10 MG 30 MG PO (08:44)
[2023-07-09 10:35] LABS: Folic Acid 6.7 ng/mL (2.76->20)
[2023-07-09 14:00] VITALS: BP 114/60; PULSE 92; RESP 20; TEMP 36.5; O2SAT 94
[2023-07-09] MEDS: VITAMIN E 400 UNIT CAPSULE 800 UNIT PO (14:00)
[2023-07-09] MEDS: DOXYCYCLINE HYCLATE 100 MG TABLET PO (14:01)
[2023-07-09] MEDS: FUROSEMIDE 40 MG TABLET PO ×2 (14:01→17:14)
[2023-07-09] MEDS: THIAMINE HCL 100 MG TABLET PO (14:01)
[2023-07-09] MEDS: FLUTICASONE PROPIONATE 0.05% NA SPR 16 GM BTL (*BKC) 1 SPRAY NASAL (14:09)
[2023-07-09 14:11] LABS: Appearance Peritoneal Fluid Clear (Clear); Color Peritoneal Fluid Yellow (Colorless); Source Peritoneal Fluid Peritoneal Fluid
[2023-07-09 14:12] LABS: Nucleated Cells Peritoneal Flu 505 /uL (0-500)
[2023-07-09 14:13] LABS: RBC Peritoneal Fluid < 2000 /uL (0-100000)
[2023-07-09 14:20] LABS: Lymphocytes Peritoneal Fluid 44 %; Macrophages Peritoneal Fluid 2 %
[2023-07-09 14:21] LABS: Mesothelial Cells Peritoneal Fluid 54 %
--- NOTE | 2023-07-09 16:07 | WPDGIPROGNO ---
Progress Note: A&P Assessment and Plan (1) SBP (spontaneous bacterial peritonitis): Code(s): K65.2 - Spontaneous bacterial peritonitis Status: Acute Assessment and Plan: she has been empirically on doxycycline because atelectasis but paracentesis today with high nucleated cells, concerning for SBP she can no get rocephin (h/o allergies)- will given iv ciprofloxacin she already received albumin iv (2) TAB positive: Code(s): R76.8 - Other specified abnormal immunological findings in serum Status: Acute Assessment and Plan: TAB highly positive wonder if she could have autoimmune hepatitis, AMA negative will check also igg and igm started on prednisone 30 mg daily, pending TPMT activity (see if she could be a candidate to use imuran later on)- will need follow with hepatology (3) Decompensation of cirrhosis of liver: Code(s): K72.90 - Hepatic failure, unspecified without coma; K74.60 - Unspecified cirrhosis of liver Status: Acute Assessment and Plan: referred to hepatology as outpatient- s/p paracentesis, also small size EV she has decompensated cirrhosis with ascites, she claims that had allergic response to aldactone, now only on lasix (4) Abdominal ascites: Code(s): R18.8 - Other ascites Status: Acute Assessment and Plan: s/p paracentesis again given low grade fever and high nucleated cell 2g na diet only lasix, ? allergic to aldactone (5) Alcohol use: Code(s): Z78.9 - Other specified health status Status: Acute (6) Elevated liver enzymes: Code(s): R74.8 - Abnormal levels of other serum enzymes Status: Acute Assessment and Plan: also noted + TAB ? AIH (7) Thrombocytopenia: Code(s): D69.6 - Thrombocytopenia, unspecified Status: Acute Assessment and Plan: from liver disease (8) Portal hypertension: Code(s): K76.6 - Portal hypertension Status: Acute (9) Colon cancer screening: Code(s): Z12.11 - Encounter for screening for malignant neoplasm of colon Status: Acute Assessment and Plan: never had one she is willing to have one as outpatient, will set up Subjective Date/time seen: 07/09/23 16:07 Interval history: s/p paracentesis and noted elevated nucleated cells 505 in fluid some abdominal pain had low grade fever again Review of Systems Review of Systems: All systems reviewed & are unremarkable except as noted in HPI and below Exam Const: General: comfortable HENMT: Face/Nose/Sinus: Normal nares present Eyes: Sclera: scleral abnormality (icteric sclerae) Neck: Neck: supple Chest: Other: + spider angioma Resp: Effort & Inspection: normal respiratory effort Cardio: Rate: regular rate GI: GI Palp: Yes Soft to palpation, Yes Tenderness to palpation present (GI) (mild ttp from recent paracentesis) and Yes Hernia present umbilical Auscultation: normal bowel sounds Other: + fluid wave Skin: General skin exam: normal color Other: similar scaly rash in face Neuro: Speech: normal speech Motor exam (neuro): 5/5 motor strength present throughout Extrem: General: edema bilateral Psych: Mental Status: mental status grossly normal Objective Data Vital Signs Vital Signs: Vital Signs - 24 hr 07/08/23 20:56 07/08/23 21:19 07/08/23 19:30 Temperature 98.7 F Pulse Rate 90 106 H Respiratory Rate 15 Blood Pressure 141/59 H Pulse Oximetry 93 95 84 L Oxygen Delivery Nasal Cannula Room Air Oxygen Flow Rate 5 07/08/23 20:00 07/09/23 03:44 07/09/23 03:40 Temperature Pulse Rate 113 H Respiratory Rate Blood Pressure Pulse Oximetry 90 92 89 L Oxygen Delivery Nasal Cannula Nasal Cannula Room Air Oxygen Flow Rate 5 4 07/09/23 05:36 07/09/23 08:00 07/09/23 14:00 Temperature 100.0 F H 97.7 F Pulse Rate 96 92 Respiratory Rate 14 20 Blood Pressure 132/50 L 114/60 Pulse Oximetry 91 94
[2023-07-09] MEDS: CIPROFLOXACIN 400 MG/D5W 200ML 200 ML 200 MG IVPB (17:13)
[2023-07-09] MEDS: POTASSIUM CHLORIDE 20 MEQ PACKET (FOR LIQUID) 40 MEQ PO (17:14)
--- NOTE | 2023-07-09 19:05 | PM.IMPN ---
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 Workup the hospital included abdomen pelvis CT on 06/21 showing cirrhosis with portal hypertension, large amount of ascites with diffuse subcutaneous edema.? Chest x-ray showing bibasilar atelectasis.? Patient had a paracentesis with 3900 mL of yellow fluid removed.? Urine culture was obtained and was negative.? Blood cultures were obtained and also negative.? Peritoneal fluid was sent down for aerobic and anaerobic culture which were negative.? Initial labs shown a white blood cell count of 13.4, hemoglobin 11.6, platelet count 97, sodium 135, potassium 3.1, AST 67, ALT 38, total bili 5.0, albumin 3.2.? UA was obtained showing 1+ protein, 2+ urine blood, positive nitrate, 2+ bili, 2+ leukocytes, 3 urine RBCs, 11-20 urine wbc's.? Respiratory panel was also obtained and negative for influenza a and B, RSV, COVID. Patient state that her symptoms started since May of this year and had few paracentesis since then. 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 GI has been consulted. Status post paracentesis x2 this admission 1 on 06/27/2023 and another on 07/02/2023. Status post EGD which showed small grade 1 versus that were not actively bleeding and mild gastritis. Also 1 antitrypsin ceruloplasmin TAB highly positive will get double-stranded DNA anti Talavera antibody SSA/SSB centromere/ribosomal. She could have autoimmune hepatitis. GI has started her on prednisone do a. AMA negative. Hepatitis profile negative. On Lasix 40 mg daily. Allergic to spironolactone. Add albumin. Increase Lasix to b.i.d. 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 Limited evaluation of the left when femoral veins. Otherwise patent bilateral lower extremity veins Fever mild monitor no signs of infection. Continue to monitor off antibiotic. Get cultures done. UA chest x-ray. WBC count within normal limit. Blood culture to date negative chest x-ray had pulmonary opacities started on doxycycline. Discussed getting paracentesis to rule out SBP. Will order 1 again today Mild chronic anemia Mild thrombocytopenia which is chronic. Assuming care. Chart reviewed. Patient had a paracentesis done today. This is ordered to rule out SBP. She has 500 nucleated cells with half of them being mesothelial cells and the other half being lymphocytes. No neutrophils documented. Fluid was sent for culture and pathology. GI following and appreciate their input. Doxycycline stopped and Cipro started. Prednisone started for possible autoimmune hepatitis. Other testing added. Consider liver biopsy if not previously performed. DVT prophylaxis Lovenox been on hold due to thrombocytopenia Subjective Date/time seen: 07/09/23 19:05 Interval history: 53yo female with cirrhosis here for worsening ascites. Assuming care. Chart reviewed. She has been having low grade fevers. Eating okay. No n/v. Abdomen is diffusely tender. Had a frontal headache last night and found to be hypoxic. Exam Narrative: Tm 100.0 97.7 114/60 902 20 94% ra Gen - NARD Chest - bibasilar crackles. nml RR CV - RRR S1/S2 Abd - Soft, diffusely tender with guarding, +BS Ext - 1-2+ pedal edema Neuro - Alert and oriented. Nonfocal exam. Psych - Nml mood and affect Skin - Warm and dry. jaundiced Objective Data Vital Signs Vital Signs: Vital
[2023-07-09] MEDS: MIRTAZAPINE 7.5 MG TABLET PO (20:55)
[2023-07-09 22:00] VITALS: BP 118/58; PULSE 88; RESP 16; TEMP 36.5; O2SAT 95
[2023-07-10 06:00] VITALS: BP 101/41; PULSE 96; RESP 16; TEMP 36.8; O2SAT 90
[2023-07-10] MEDS: LEVOTHYROXINE SODIUM 100 MCG TABLET 200 MCG PO (06:03)
[2023-07-10 07:28] LABS: Basophils Absolute Auto 0.1 K/mm3 (0.0-0.1); Basophils Percent Auto 0.8 % (0.2-1.2); Eosinophils Absolute Auto 0.1 K/mm3 (0-0.3); Eosinophils Percent Auto 1.9 % (0-4.4); Hematocrit 28.1 % (37.0-47.0); Hemoglobin 8.9 g/dL (12.0-15.0); Immature Granulocyte Absolute 0.03 K/mm3 (0.00-0.031); Immature Granulocyte Percent A 0.4 % (0-0.5); Immature Platelet Fraction Pct 3.9 % (0.9-11.2); Lymphocytes Percent Auto 24.3 % (18.3-44.2); Mean Corpuscular HGB Conc 31.7 g/dl (32-36); Mean Corpuscular Hemoglobin 35.7 pg (26-34); Mean Corpuscular Volume 112.9 fl (80-100); Mean Platelet Volume 10.6 fl (7.4-10.4); Monocytes Percent Auto 13.4 % (2.6-8.5); Neutrophils Absolute Auto 4.4 K/mm3 (1.3-6.7); Neutrophils Percent Auto 59.2 % (45.5-73.1); Platelet Count Result 77 k/mm3 (150-375); Red Blood Count 2.49 M/mm3 (4.2-5.4); Red Cell Distribution Width 16.9 % (11.5-14.5); White Blood Count 7.4 K/mm3 (4.5-10.0)
[2023-07-10 07:52] LABS: Alanine Aminotransferase 14 U/L (6-35); Alkaline Phosphatase 64 U/L (38-126); Anion Gap 8 mmol/L (4-12); Aspartate Amino Transferase 31 U/L (14-36); Bilirubin,Total 7.2 mg/dL (0.2-1.3); Blood Urea Nitrogen 16 mg/dL (7-17); Calcium 9.2 mg/dL (8.4-10.2); Carbon Dioxide 22 mmol/L (22-30); Chloride 109 mmol/L (98-107); Estimated CRCL calculation 123 ml/min; Estimated Glomerular Filt Rate > 60; Glucose 96 mg/dL (65-110); Potassium 3.4 mmol/L (3.4-5.0); Sodium 139 mmol/L (137-145)
[2023-07-10 08:00] VITALS: O2SAT 94
[2023-07-10 08:25] LABS: Macrocytosis 1+ (NORMAL); Platelet Estimate Decreased (Adequate); Schistocytes None Seen
[2023-07-10 08:29] LABS: Hypochromasia 1+
[2023-07-10] MEDS: predniSONE 20 MG, predniSONE 10 MG 30 MG PO (09:36)
[2023-07-10] MEDS: FUROSEMIDE 40 MG TABLET PO ×2 (09:36→17:00)
[2023-07-10] MEDS: VITAMIN E 400 UNIT CAPSULE 800 UNIT PO (09:36)
[2023-07-10] MEDS: THIAMINE HCL 100 MG TABLET PO (09:37)
[2023-07-10] MEDS: FLUTICASONE PROPIONATE 0.05% NA SPR 16 GM BTL (*BKC) 1 SPRAY NASAL ×2 (09:43→20:29)
[2023-07-10 14:00] VITALS: BP 113/56; PULSE 88; RESP 16; TEMP 36.8; O2SAT 94
--- NOTE | 2023-07-10 15:02 | WPDGIPROGNO ---
Progress Note: A&P Assessment and Plan (1) SBP (spontaneous bacterial peritonitis): Code(s): K65.2 - Spontaneous bacterial peritonitis Status: Acute Assessment and Plan: repeat paracentesis with high nucleated cells (no neutrophils though) still concerning for SBP since she was already on abx- switched to cipro (allergy to pcn) she already received albumin iv (2) TAB positive: Code(s): R76.8 - Other specified abnormal immunological findings in serum Status: Acute Assessment and Plan: TAB highly positive, also + IgG, pending actin IgG and LKM Ab wonder if she could have autoimmune hepatitis, AMA negative started on prednisone 30 mg daily, pending TPMT activity (see if she could be a candidate to use imuran later on)- will need follow with hepatology (3) Decompensation of cirrhosis of liver: Code(s): K72.90 - Hepatic failure, unspecified without coma; K74.60 - Unspecified cirrhosis of liver Status: Acute Assessment and Plan: referred to hepatology as outpatient- s/p paracentesis, also small size EV she has decompensated cirrhosis with ascites, she claims that had allergic response to aldactone, now only on lasix (4) Abdominal ascites: Code(s): R18.8 - Other ascites Status: Acute Assessment and Plan: s/p paracentesis again given low grade fever and high nucleated cell but no neutrophils ? SBP 2g na diet only lasix, ? allergic to aldactone (5) Alcohol use: Code(s): Z78.9 - Other specified health status Status: Acute (6) Elevated liver enzymes: Code(s): R74.8 - Abnormal levels of other serum enzymes Status: Acute Assessment and Plan: also noted + TAB ? AIH (7) Thrombocytopenia: Code(s): D69.6 - Thrombocytopenia, unspecified Status: Acute Assessment and Plan: from liver disease (8) Portal hypertension: Code(s): K76.6 - Portal hypertension Status: Acute (9) Colon cancer screening: Code(s): Z12.11 - Encounter for screening for malignant neoplasm of colon Status: Acute Assessment and Plan: never had one she is willing to have one as outpatient, will set up Subjective Date/time seen: 07/10/23 15:02 Interval history: using oxygen, no major changes Review of Systems Review of Systems: All systems reviewed & are unremarkable except as noted in HPI and below Exam Const: General: comfortable HENMT: Face/Nose/Sinus: Normal nares present Eyes: Sclera: scleral abnormality (icteric sclerae) Neck: Neck: supple Chest: Other: + spider angioma Resp: Auscultation: diminished lung sounds Cardio: Rate: regular rate GI: GI Palp: Yes Soft to palpation, Yes Tenderness to palpation present (GI) (less tender) and Yes Hernia present umbilical Auscultation: normal bowel sounds Other: less fluid wave Skin: General skin exam: normal color Other: similar scaly rash in face Neuro: Speech: normal speech Motor exam (neuro): 5/5 motor strength present throughout Extrem: General: edema bilateral Psych: Mental Status: mental status grossly normal Objective Data Vital Signs Vital Signs: Vital Signs - 24 hr 07/09/23 22:00 07/10/23 06:00 07/10/23 08:00 Temperature 97.7 F 98.3 F Pulse Rate 88 96 Respiratory Rate 16 16 Blood Pressure 118/58 L 101/41 L Pulse Oximetry 95 90 94 Oxygen Delivery Nasal Cannula Oxygen Flow Rate 3.5 Intake/Output Intake/Output: Intake & Output 07/07/23 07/08/23 07/09/23 07/10/23 23:59 23:59 23:59 23:59 Intake Total 8865 257 8939 1472 Output Total 3000 Balance 1495 540 -1906 1472 Meds/Results Medications: Active Medications Generic Name Dose Route Start Last Admin Trade Name Freq PRN Reason Stop Dose Admin Acetaminophen 650 mg 07/05/23 09:08 07/09/23 08:43 Acetaminophen 325 Mg Tablet PO 650 mg Q6H PRN Administration Mild Pain (1-3) or Fever Hydrocodone Magda
--- NOTE | 2023-07-10 18:03 | PM.IMPN ---
Progress Note: A&P Assessment and Plan (1) Cirrhosis of liver: Code(s): K74.60 - Unspecified cirrhosis of liver Status: Acute (2) SBP (spontaneous bacterial peritonitis): Code(s): K65.2 - Spontaneous bacterial peritonitis Status: Acute (3) Hypoxia: Code(s): R09.02 - Hypoxemia Status: Acute (4) Obesity: Code(s): E66.9 - Obesity, unspecified Status: Acute (5) Thrombocytopenia: Code(s): D69.6 - Thrombocytopenia, unspecified Status: Acute (6) Tobacco abuse counseling: Code(s): Z71.6 - Tobacco abuse counseling Status: Acute (7) Hypothyroidism: Code(s): E03.9 - Hypothyroidism, unspecified Status: Acute Plan This is a 53-year-old female with a significant past medical history of cirrhosis due to BACON who presented with abdominal swelling and distention.? Workup the hospital included abdomen pelvis CT on 06/21 showing cirrhosis with portal hypertension, large amount of ascites with diffuse subcutaneous edema.? Chest x-ray showing bibasilar atelectasis.? Patient had a paracentesis with 3900 mL of yellow fluid removed.? Urine culture was obtained and was negative.? Blood cultures were obtained and also negative.? Peritoneal fluid was sent down for aerobic and anaerobic culture which were negative.? Initial labs shown a white blood cell count of 13.4, hemoglobin 11.6, platelet count 97, sodium 135, potassium 3.1, AST 67, ALT 38, total bili 5.0, albumin 3.2.? UA was obtained showing 1+ protein, 2+ urine blood, positive nitrate, 2+ bili, 2+ leukocytes, 3 urine RBCs, 11-20 urine wbc's.? Respiratory panel was also obtained and negative for influenza a and B, RSV, COVID. Patient state that her symptoms started since May of this year and had few paracentesis since then. She has not followed up with any network development coordinator. GI has been consulted. Status post paracentesis x2 this admission 1 on 06/27/2023 and another on 07/02/2023. Status post EGD which showed small grade 1 versus that were not actively bleeding and mild gastritis. Also 1 antitrypsin ceruloplasmin TAB highly positive will get double-stranded DNA anti Talavera antibody SSA/SSB centromere/ribosomal. She could have autoimmune hepatitis. GI has started her on prednisone do a. AMA negative. Hepatitis profile negative. On Lasix 40 mg daily. Allergic to spironolactone. Add albumin. Increase Lasix to b.i.d. 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 Limited evaluation of the left when femoral veins. Otherwise patent bilateral lower extremity veins Fever mild monitor no signs of infection. Continue to monitor off antibiotic. Get cultures done. UA chest x-ray. WBC count within normal limit. Blood culture to date negative chest x-ray had pulmonary opacities started on doxycycline. Discussed getting paracentesis to rule out SBP. Will order 1 again today Mild chronic anemia Mild thrombocytopenia which is chronic. Assuming care. Chart reviewed. Patient had a paracentesis done today. This is ordered to rule out SBP. She has 500 nucleated cells with half of them being mesothelial cells and the other half being lymphocytes. No neutrophils documented. Fluid was sent for culture and pathology. GI following and appreciate their input. Doxycycline stopped and Cipro started. Prednisone started for possible autoimmune hepatitis. Other testing added. Consider liver biopsy if not previously performed. Patient still hypoxic which is new. Will check CXR and consider CTA. Cipro started but only given one dose. Cipro not resumed given the long QTc on her admission EKG. Will repeat EKG and if QTC is better, will resume Cipro. TBili slightly better. Continue Prednisone. Peritoneal cx remains negative. Recent doppler (07/05) was negative for DVT. Increase activity as tolerated. Wean O2 as tolerated. DVT prophylaxis - Lovenox held du
[2023-07-10] MEDS: MIRTAZAPINE 7.5 MG TABLET PO (20:27)
[2023-07-10] MEDS: HYDROcodone/acetaminophen (*CRX) 5-325 MG TABLET 1 TAB PO (20:27)
[2023-07-10] MEDS: diphenhydrAMINE HCl CAP 25 MG CAPSULE 50 MG PO (20:27)
[2023-07-10 21:09] VITALS: BP 118/57; PULSE 88; RESP 13; TEMP 36.9; O2SAT 96
--- NOTE | 2023-07-11 | ECG_ITS ---
SEE SCANNED COPY FOR CONFIRMED REPORT MTDD
[2023-07-11 05:39] VITALS: BP 106/58; PULSE 76; RESP 14; TEMP 36.7; O2SAT 94
[2023-07-11] MEDS: HYDROcodone/acetaminophen (*CRX) 5-325 MG TABLET 1 TAB PO ×2 (05:55→21:07)
[2023-07-11] MEDS: LEVOTHYROXINE SODIUM 100 MCG TABLET 200 MCG PO (05:55)
[2023-07-11] MEDS: diphenhydrAMINE HCl CAP 25 MG CAPSULE 50 MG PO ×2 (05:55→21:06)
[2023-07-11 06:38] LABS: Hematocrit 26.6 % (37.0-47.0); Hemoglobin 8.5 g/dL (12.0-15.0); Immature Platelet Fraction Pct 4.1 % (0.9-11.2); Mean Corpuscular Hemoglobin 35.6 pg (26-34); Mean Corpuscular Volume 111.3 fl (80-100); Mean Platelet Volume 10.6 fl (7.4-10.4); Platelet Count Result 75 k/mm3 (150-375); Red Blood Count 2.39 M/mm3 (4.2-5.4); Red Cell Distribution Width 17.1 % (11.5-14.5)
[2023-07-11 06:50] LABS: Alanine Aminotransferase 15 U/L (6-35); Albumin Level 3.7 g/dL (3.5-5.1); Alkaline Phosphatase 67 U/L (38-126); Anion Gap 6 mmol/L (4-12); Aspartate Amino Transferase 34 U/L (14-36); Bilirubin,Total 5.7 mg/dL (0.2-1.3); Blood Urea Nitrogen 14 mg/dL (7-17); Calcium 8.9 mg/dL (8.4-10.2); Carbon Dioxide 25 mmol/L (22-30); Chloride 107 mmol/L (98-107); Estimated CRCL calculation 146 ml/min; Estimated Glomerular Filt Rate > 60; Glucose 83 mg/dL (65-110); Potassium 3.3 mmol/L (3.4-5.0); Sodium 138 mmol/L (137-145)
[2023-07-11 08:00] VITALS: O2SAT 92
[2023-07-11] MEDS: predniSONE 20 MG, predniSONE 10 MG 30 MG PO (09:00)
[2023-07-11] MEDS: FUROSEMIDE INJ 40 MG/4 ML VIAL IV PUSH ×2 (09:00→15:58)
[2023-07-11] MEDS: THIAMINE HCL 100 MG TABLET PO (09:00)
[2023-07-11] MEDS: VITAMIN E 400 UNIT CAPSULE 800 UNIT PO (09:00)
[2023-07-11] MEDS: POTASSIUM CHLORIDE 20 MEQ PACKET (FOR LIQUID) 40 MEQ PO (09:07)
--- NOTE | 2023-07-11 12:26 | P.PNIM_ITS ---
Progress Note: A&P Assessment and Plan (1) Cirrhosis of liver: Code(s): K74.60 - Unspecified cirrhosis of liver Status: Acute (2) SBP (spontaneous bacterial peritonitis): Code(s): K65.2 - Spontaneous bacterial peritonitis Status: Acute (3) Hypoxia: Code(s): R09.02 - Hypoxemia Status: Acute (4) Obesity: Code(s): E66.9 - Obesity, unspecified Status: Acute (5) Thrombocytopenia: Code(s): D69.6 - Thrombocytopenia, unspecified Status: Acute (6) Tobacco abuse counseling: Code(s): Z71.6 - Tobacco abuse counseling Status: Acute (7) Hypothyroidism: Code(s): E03.9 - Hypothyroidism, unspecified Status: Acute Plan This is a 53-year-old female with a significant past medical history of cirrhosis due to BACON who presented with abdominal swelling and distention.? Workup the hospital included abdomen pelvis CT on 06/21 showing cirrhosis with portal hypertension, large amount of ascites with diffuse subcutaneous edema.? C hest x-ray showing bibasilar atelectasis.? Patient had a paracentesis with 3900 mL of yellow fluid removed.? Urine culture was obtained and was negative.? Blood cultures were obtained and also negative.? Peritoneal fluid was sent down for aerobic and anaerobic culture which were negative.? Initial labs shown a white blood cell count of 13.4, hemoglobin 11.6, platelet count 97, sodium 135, potassium 3.1, AST 67, ALT 38, total bili 5.0, albumin 3.2.? UA was obtained showing 1+ protein, 2+ urine blood, positive nitrate, 2+ bili, 2+ leukocytes, 3 urine RBCs, 11-20 urine wbc's.? Respiratory panel was also obtained and negative for influenza a and B, RSV, COVID. Patient state that her symptoms started since May of this year and had few paracentesis since then. 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 GI has been consulted. Status post paracentesis x2 this admission 1 on 06/27/2023 and another on 07/02/2023. Status post EGD which showed small grade 1 versus that were not actively bleeding and mild gastritis. Also 1 antitrypsin ceruloplasmin TAB highly positive will get double-stranded DNA anti Talavera antibody SSA/SSB centromere/ribosomal. She could have autoimmune hepatitis. GI has started her on prednisone do a. AMA negative. Hepatitis profile negative. On Lasix 40 mg daily. Allergic to spironolactone. Add albumin. Increase Lasix to b.i.d. 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 Limited evaluation of the left when femoral veins. Otherwise patent bilateral lower extremity veins Fever mild monitor no signs of infection. Continue to monitor off antibiotic. Get cultures done. UA chest x-ray. WBC count within normal limit. Blood culture to date negative chest x-ray had pulmonary opacities started on doxycycline. Discussed getting paracentesis to rule out SBP. Will order 1 again today Mild chronic anemia Mild thrombocytopenia which is chronic. Assuming care. Chart reviewed. Patient had a paracentesis done today. This is ordered to rule out SBP. She has 500 nucleated cells with half of them being mesothelial cells and the other half being lymphocytes. No neutrophils documented. Fluid was sent for culture and pathology. GI following and appreciate their input. Doxycycline stopped and Cipro started. Prednisone started for possible autoimmune hepatitis. Other testing added. Consider liver biopsy if not previously performed. Patient still hypoxic which is new. Will check CXR and consider CTA. Cipro started but only given one dose. Cipro not resumed given the long QTc on her admi
[2023-07-11 14:00] VITALS: BP 95/48; PULSE 89; RESP 15; TEMP 36.6; O2SAT 98
[2023-07-11] MEDS: levoFLOXacin 750 MG/D5W 150 ML 750 MG/150 ML BAG 100 MG IVPB (15:58)
[2023-07-11] MEDS: FLUTICASONE PROPIONATE 0.05% NA SPR 16 GM BTL (*BKC) 1 SPRAY NASAL ×2 (16:00→21:07)
--- NOTE | 2023-07-11 16:03 | WPDGIPROGNO ---
Progress Note: A&P Assessment and Plan (1) SBP (spontaneous bacterial peritonitis): Code(s): K65.2 - Spontaneous bacterial peritonitis Status: Acute Assessment and Plan: repeat paracentesis with high nucleated cells (no neutrophils though) still concerning for SBP since she was already on abx- switched to cipro (allergy to pcn) she already received albumin iv ok to switch to levaquin instead of cipro to cover possible pneumonia (2) TAB positive: Code(s): R76.8 - Other specified abnormal immunological findings in serum Status: Acute Assessment and Plan: TAB highly positive, also + IgG, pending actin IgG and LKM Ab wonder if she could have autoimmune hepatitis, AMA negative started on prednisone 30 mg daily, pending TPMT activity (see if she could be a candidate to use imuran later on)- will need follow with hepatology (3) Decompensation of cirrhosis of liver: Code(s): K72.90 - Hepatic failure, unspecified without coma; K74.60 - Unspecified cirrhosis of liver Status: Acute Assessment and Plan: referred to hepatology as outpatient- s/p paracentesis, also small size EV she has decompensated cirrhosis with ascites, she claims that had allergic response to aldactone, now only on lasix (4) Pulmonary edema: Code(s): J81.1 - Chronic pulmonary edema Status: Acute (5) Abdominal ascites: Code(s): R18.8 - Other ascites Status: Acute Assessment and Plan: s/p paracentesis again given low grade fever and high nucleated cell but no neutrophils ? SBP 2g na diet only lasix- changed to IV and better, ? allergic to aldactone (6) Alcohol use: Code(s): Z78.9 - Other specified health status Status: Acute (7) Elevated liver enzymes: Code(s): R74.8 - Abnormal levels of other serum enzymes Status: Acute Assessment and Plan: also noted + TAB ? AIH bili down to 5 (8) Thrombocytopenia: Code(s): D69.6 - Thrombocytopenia, unspecified Status: Acute Assessment and Plan: from liver disease (9) Portal hypertension: Code(s): K76.6 - Portal hypertension Status: Acute Subjective Date/time seen: 07/11/23 16:03 Interval history: using oxygen, CTA showed more pulmonary edema, can not rule out pneumonia, no PE. She received iv lasix and this helped more, less leg edema Review of Systems Review of Systems: All systems reviewed & are unremarkable except as noted in HPI and below Exam Const: General: comfortable HENMT: Face/Nose/Sinus: Normal nares present Eyes: Sclera: scleral abnormality (icteric sclerae) Neck: Neck: supple Chest: Other: + spider angioma Resp: Auscultation: diminished lung sounds Other: few rales Cardio: Rate: regular rate GI: GI Palp: Yes Soft to palpation, Yes Tenderness to palpation present (GI) (less tender) and Yes Hernia present umbilical Auscultation: normal bowel sounds Other: less fluid wave Skin: General skin exam: normal color Other: similar scaly rash in face Neuro: Speech: normal speech Motor exam (neuro): 5/5 motor strength present throughout Extrem: General: edema bilateral Psych: Mental Status: mental status grossly normal Objective Data Vital Signs Vital Signs: Vital Signs - 24 hr 07/10/23 21:09 07/11/23 05:39 07/11/23 08:00 Temperature 98.5 F 98.1 F Pulse Rate 88 76 Respiratory Rate 13 14 Blood Pressure 118/57 L 106/58 L Pulse Oximetry 96 94 92 Oxygen Delivery Nasal Cannula Oxygen Flow Rate 3 07/11/23 14:00 Temperature 97.8 F Pulse Rate 89 Respiratory Rate 15 Blood Pressure 95/48 L Pulse Oximetry 98 Oxygen Delivery Oxygen Flow Rate Intake/Output Intake/Output: Intake & Output 07/08/23 07/09/23 07/10/23 07/11/23 23:59 23:59 23:59 23:59 Intake Total 540 1294 1832 2874 Output Total 3000 Balance 540 -1706 1832 2874 Meds/Results Medications: Active Medications
[2023-07-11 17:59] LABS: MRSA (PCR) NOT DETECTED (NOT DETECTE)
[2023-07-11 20:00] VITALS: PULSE 93
[2023-07-11 20:45] VITALS: BP 116/61; PULSE 90; RESP 18; TEMP 36.7; O2SAT 96
[2023-07-11] MEDS: MIRTAZAPINE 7.5 MG TABLET PO (21:07)
[2023-07-11 21:44] LABS: Anti Centromere B Antibody <1.0
[2023-07-11 21:59] LABS: Ribosomal P Antibody <1.0
[2023-07-11 22:00] LABS: SS-A <1.0; SS-B <1.0
[2023-07-12] VITALS (8 sets, daily range): BP systolic 105–117; BP diastolic 49–55; PULSE 73–101; RESP 16; TEMP 36.7–37.3; O2SAT 92–93
[2023-07-12] MEDS: LEVOTHYROXINE SODIUM 100 MCG TABLET 200 MCG PO (05:53)
[2023-07-12 06:45] LABS: Hematocrit 27.4 % (37.0-47.0); Hemoglobin 8.6 g/dL (12.0-15.0); Immature Platelet Fraction Pct 4.1 % (0.9-11.2); Mean Corpuscular HGB Conc 31.4 g/dl (32-36); Mean Corpuscular Hemoglobin 35.8 pg (26-34); Mean Corpuscular Volume 114.2 fl (80-100); Mean Platelet Volume 10.6 fl (7.4-10.4); Platelet Count Result 79 k/mm3 (150-375); Red Cell Distribution Width 17.2 % (11.5-14.5)
[2023-07-12 06:52] LABS: Alanine Aminotransferase 20 U/L (6-35); Albumin Level 3.7 g/dL (3.5-5.1); Alkaline Phosphatase 101 U/L (38-126); Anion Gap 6 mmol/L (4-12); Aspartate Amino Transferase 43 U/L (14-36); Bilirubin,Total 4.7 mg/dL (0.2-1.3); Blood Urea Nitrogen 13 mg/dL (7-17); Carbon Dioxide 27 mmol/L (22-30); Chloride 105 mmol/L (98-107); Estimated CRCL calculation 144 ml/min; Estimated Glomerular Filt Rate > 60; Glucose 85 mg/dL (65-110); Magnesium 1.9 mg/dL (1.6-2.3); Potassium 3.1 mmol/L (3.4-5.0); Sodium 138 mmol/L (137-145)
--- NOTE | 2023-07-12 08:00 | ECG_ITS ---
SEE SCANNED COPY FOR CONFIRMED REPORT. MTDD
[2023-07-12] MEDS: MAGNESIUM SULF 2 GM/WATER 50ML 2 GM/50 ML BAG IVPB (08:59)
[2023-07-12] MEDS: POTASSIUM CHLORIDE 20 MEQ PACKET (FOR LIQUID) 40 MEQ PO (09:00)
[2023-07-12] MEDS: THIAMINE HCL 100 MG TABLET PO (09:01)
[2023-07-12] MEDS: FLUTICASONE PROPIONATE 0.05% NA SPR 16 GM BTL (*BKC) 1 SPRAY NASAL ×2 (09:01→20:36)
[2023-07-12] MEDS: predniSONE 20 MG, predniSONE 10 MG 30 MG PO (09:01)
[2023-07-12 09:31] LABS: Alveolar/Arterial O2 Gradient 42.9 mmHg; Base Excess ABG 0.9 mEq/l (+/-2.0); Fractional Inspired Oxygen 32 %; HCO3 ABG 23.3 mEq/l (22.0-26.0); Oxygen Content ABG 14.2 %vol (16.0-22.0); Oxygen Saturation ABG 99.2 % (95.0-100.0); Oxyhemoglobin 97.6 % THb (90.0-100.0); PCO2 ABG 29.2 mmHg (35.0-45.0); PO2 ABG 151.1 mmHg (80.0-100.0); PO2 FiO2 Ratio Arterial Blood 4.72 %; Total Hemoglobin 10.1 g/dL (12.0-18.0)
[2023-07-12 09:33] LABS: Device NASAL CANNULA; Modified Allen's Test Pass; Site Drawn RIGHT RADIAL; pH ABG 7.519 (7.350-7.450)
--- NOTE | 2023-07-12 09:45 | PC.NURSE ---
07/12/23 Critical result of 7.519 pH ABG received 07/12/23 at [address] Sargent 07/12/23 at 0945.
--- NOTE | 2023-07-12 11:53 | WPDGIPROGNO ---
Progress Note: A&P Assessment and Plan (1) SBP (spontaneous bacterial peritonitis): Code(s): K65.2 - Spontaneous bacterial peritonitis Status: Acute Assessment and Plan: repeat paracentesis with high nucleated cells (no neutrophils though) still concerning for SBP since she was already on abx- switched to cipro (allergy to pcn) now on levaquin (also to cover possible pneumonia) (2) TAB positive: Code(s): R76.8 - Other specified abnormal immunological findings in serum Status: Acute Assessment and Plan: TAB highly positive, also + IgG, pending actin IgG and LKM Ab wonder if she could have autoimmune hepatitis, AMA negative prednisone 30 mg daily, pending TPMT activity (see if she could be a candidate to use imuran later on)- will need follow with hepatology bili is coming down (3) Decompensation of cirrhosis of liver: Code(s): K72.90 - Hepatic failure, unspecified without coma; K74.60 - Unspecified cirrhosis of liver Status: Acute Assessment and Plan: referred to hepatology as outpatient- s/p paracentesis, also small size EV she has decompensated cirrhosis with ascites, she claims that had allergic response to aldactone, now only on lasix- switched to iv lasix and helping better (4) Pulmonary edema: Code(s): J81.1 - Chronic pulmonary edema Status: Acute Assessment and Plan: better with iv lasix (5) Abdominal ascites: Code(s): R18.8 - Other ascites Status: Acute Assessment and Plan: s/p paracentesis again given low grade fever and high nucleated cell but no neutrophils ? SBP 2g na diet iv lasix for now (6) Alcohol use: Code(s): Z78.9 - Other specified health status Status: Acute (7) Elevated liver enzymes: Code(s): R74.8 - Abnormal levels of other serum enzymes Status: Acute Assessment and Plan: also noted + TAB ? AIH bili down to 4 (8) Thrombocytopenia: Code(s): D69.6 - Thrombocytopenia, unspecified Status: Acute Assessment and Plan: from liver disease Subjective Date/time seen: 07/12/23 11:53 Interval history: breathing better Review of Systems Review of Systems: All systems reviewed & are unremarkable except as noted in HPI and below Exam Const: General: comfortable HENMT: Face/Nose/Sinus: Normal nares present Eyes: Sclera: scleral abnormality (icteric sclerae) Neck: Neck: supple Chest: Other: + spider angioma Resp: Auscultation: diminished lung sounds Other: few rales Cardio: Rate: regular rate GI: GI Palp: Yes Soft to palpation, Yes Tenderness to palpation present (GI) (less tender) and Yes Hernia present umbilical Auscultation: normal bowel sounds Other: less fluid wave Skin: General skin exam: normal color Other: similar scaly rash in face Neuro: Speech: normal speech Motor exam (neuro): 5/5 motor strength present throughout Extrem: General: edema bilateral Psych: Mental Status: mental status grossly normal Objective Data Vital Signs Vital Signs: Vital Signs - 24 hr 07/11/23 14:00 07/11/23 20:45 07/11/23 20:00 Temperature 97.8 F 98.0 F Pulse Rate 89 90 93 Respiratory Rate 15 18 Blood Pressure 95/48 L 116/61 Pulse Oximetry 98 96 07/12/23 00:00 07/12/23 00:00 07/12/23 04:00 Temperature 98.3 F 98.1 F Pulse Rate 95 90 77 Respiratory Rate 16 16 Blood Pressure 107/51 L 117/55 L Pulse Oximetry 93 93 07/12/23 04:00 07/12/23 09:53 Temperature Pulse Rate 73 Respiratory Rate Blood Pressure 105/55 L Pulse Oximetry Intake/Output Intake/Output: Intake & Output 07/09/23 07/10/23 07/11/23 07/12/23 23:59 23:59 23:59 23:59 Intake Total 1294 1832 4534 600 Output Total 3000 Balance -1706 1832 4534 600 Meds/Results Medications: Active Medications Generic Name Dose Route Start Last Admin Trade Name Freq PRN Reason Stop Dose Admin Acetaminophen 650 m
[2023-07-12] MEDS: levoFLOXacin 750 MG/D5W 150 ML 750 MG/150 ML BAG 100 MG IVPB (12:03)
--- NOTE | 2023-07-12 12:21 | PM.IMPN ---
Progress Note: A&P Assessment and Plan (1) Cirrhosis of liver: Code(s): K74.60 - Unspecified cirrhosis of liver Status: Acute (2) SBP (spontaneous bacterial peritonitis): Code(s): K65.2 - Spontaneous bacterial peritonitis Status: Acute (3) Hypoxia: Code(s): R09.02 - Hypoxemia Status: Acute (4) Obesity: Code(s): E66.9 - Obesity, unspecified Status: Acute (5) Thrombocytopenia: Code(s): D69.6 - Thrombocytopenia, unspecified Status: Acute (6) Tobacco abuse counseling: Code(s): Z71.6 - Tobacco abuse counseling Status: Acute (7) Hypothyroidism: Code(s): E03.9 - Hypothyroidism, unspecified Status: Acute (8) Pulmonary edema: Code(s): J81.1 - Chronic pulmonary edema Status: Acute (9) Thyroid nodule: Code(s): E04.1 - Nontoxic single thyroid nodule Status: Acute Plan This is a 53-year-old female with a significant past medical history of cirrhosis due to BACON who presented with abdominal swelling and distention.? Workup the hospital included abdomen pelvis CT on 06/21 showing cirrhosis with portal hypertension, large amount of ascites with diffuse subcutaneous edema.? Chest x-ray showing bibasilar atelectasis.? Patient had a paracentesis with 3900 mL of yellow fluid removed.? Urine culture was obtained and was negative.? Blood cultures were obtained and also negative.? Peritoneal fluid was sent down for aerobic and anaerobic culture which were negative.? Initial labs shown a white blood cell count of 13.4, hemoglobin 11.6, platelet count 97, sodium 135, potassium 3.1, AST 67, ALT 38, total bili 5.0, albumin 3.2.? UA was obtained showing 1+ protein, 2+ urine blood, positive nitrate, 2+ bili, 2+ leukocytes, 3 urine RBCs, 11-20 urine wbc's.? Respiratory panel was also obtained and negative for influenza a and B, RSV, COVID. Patient state that her symptoms started since May of this year and had few paracentesis since then. She has not followed up with any tours hostess. GI has been consulted. Status post paracentesis x2 this admission 1 on 06/27/2023 and another on 07/02/2023. Status post EGD which showed small grade 1 versus that were not actively bleeding and mild gastritis. Also 1 antitrypsin ceruloplasmin TAB highly positive will get double-stranded DNA anti Talavera antibody SSA/SSB centromere/ribosomal. She could have autoimmune hepatitis. GI has started her on prednisone do a. AMA negative. Hepatitis profile negative. On Lasix 40 mg daily. Allergic to spironolactone. Add albumin. Increase Lasix to b.i.d. 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 Limited evaluation of the left when femoral veins. Otherwise patent bilateral lower extremity veins Fever mild monitor no signs of infection. Continue to monitor off antibiotic. Get cultures done. UA chest x-ray. WBC count within normal limit. Blood culture to date negative chest x-ray had pulmonary opacities started on doxycycline. Discussed getting paracentesis to rule out SBP. Will order 1 again today Mild chronic anemia Mild thrombocytopenia which is chronic. Assuming care. Chart reviewed. Patient had a paracentesis done today. This is ordered to rule out SBP. She has 500 nucleated cells with half of them being mesothelial cells and the other half being lymphocytes. No neutrophils documented. Fluid was sent for culture and pathology. GI following and appreciate their input. Doxycycline stopped and Cipro started. Prednisone started for possible autoimmune hepatitis. Other testing added. Consider liver biopsy if not previously performed. Patient still hypoxic which is new. Will check CXR and consider CTA. Cipro started but only given one dose. Cipro not resumed given the long QTc on her admission EKG. Will repeat EKG and if QTC is better, will resume Cipro. TBili slightly better.
--- NOTE | 2023-07-12 16:33 | PC.NURSE ---
On 07/12/23, the TOP TRIMMER, Silva, provided care and [facility] [facility]. I have reviewed the TOP TRIMMER's documentation and agree with the findings.
[2023-07-12] MEDS: diphenhydrAMINE HCl CAP 25 MG CAPSULE 50 MG PO (20:33)
[2023-07-12] MEDS: HYDROcodone/acetaminophen (*CRX) 5-325 MG TABLET 1 TAB PO (20:34)
[2023-07-12] MEDS: MIRTAZAPINE 7.5 MG TABLET PO (20:35)
[2023-07-12] MEDS: FUROSEMIDE INJ 40 MG/4 ML VIAL IV PUSH (20:50)
[2023-07-13] VITALS (8 sets, daily range): BP systolic 103–112; BP diastolic 48–65; PULSE 69–93; RESP 14–20; TEMP 35.9–37.3; O2SAT 93–96
[2023-07-13] MEDS: HYDROcodone/acetaminophen (*CRX) 5-325 MG TABLET 1 TAB PO ×2 (02:08→20:33)
[2023-07-13 05:54] LABS: Hematocrit 28.9 % (37.0-47.0); Hemoglobin 9.1 g/dL (12.0-15.0); Immature Platelet Fraction Pct 3.8 % (0.9-11.2); Mean Corpuscular HGB Conc 31.5 g/dl (32-36); Mean Corpuscular Hemoglobin 35.8 pg (26-34); Mean Corpuscular Volume 113.8 fl (80-100); Mean Platelet Volume 10.5 fl (7.4-10.4); Platelet Count Result 78 k/mm3 (150-375); Red Blood Count 2.54 M/mm3 (4.2-5.4); White Blood Count 7.2 K/mm3 (4.5-10.0)
[2023-07-13] MEDS: LEVOTHYROXINE SODIUM 100 MCG TABLET 200 MCG PO (06:12)
[2023-07-13 06:21] LABS: Alanine Aminotransferase 24 U/L (6-35); Albumin Level 3.8 g/dL (3.5-5.1); Alkaline Phosphatase 112 U/L (38-126); Anion Gap 7 mmol/L (4-12); Aspartate Amino Transferase 53 U/L (14-36); Bilirubin,Total 4.2 mg/dL (0.2-1.3); Blood Urea Nitrogen 15 mg/dL (7-17); Calcium 9.4 mg/dL (8.4-10.2); Carbon Dioxide 27 mmol/L (22-30); Chloride 107 mmol/L (98-107); Estimated CRCL calculation 123 ml/min; Estimated Glomerular Filt Rate > 60; Glucose 99 mg/dL (65-110); Magnesium 2.1 mg/dL (1.6-2.3); Potassium 3.3 mmol/L (3.4-5.0); Sodium 141 mmol/L (137-145)
[2023-07-13] MEDS: predniSONE 20 MG, predniSONE 10 MG 30 MG PO (08:51)
[2023-07-13] MEDS: THIAMINE HCL 100 MG TABLET PO (08:51)
[2023-07-13] MEDS: FUROSEMIDE INJ 40 MG/4 ML VIAL IV PUSH ×2 (08:51→17:09)
[2023-07-13] MEDS: VITAMIN E 400 UNIT CAPSULE 800 UNIT PO (08:51)
[2023-07-13] MEDS: levoFLOXacin 750 MG/D5W 150 ML 750 MG/150 ML BAG 100 MG IVPB (08:52)
[2023-07-13] MEDS: FLUTICASONE PROPIONATE 0.05% NA SPR 16 GM BTL (*BKC) 1 SPRAY NASAL ×2 (08:52→20:34)
[2023-07-13] MEDS: POTASSIUM CHLORIDE 20 MEQ PACKET (FOR LIQUID) 40 MEQ PO (08:54)
[2023-07-13] MEDS: metOLazone 2.5 MG TABLET PO (08:55)
--- NOTE | 2023-07-13 14:47 | WPDGIPROGNO ---
Progress Note: A&P Assessment and Plan (1) SBP (spontaneous bacterial peritonitis): Code(s): K65.2 - Spontaneous bacterial peritonitis Status: Acute Assessment and Plan: repeat paracentesis with high nucleated cells (no neutrophils though) still concerning for SBP since she was already on abx now on levaquin (also to cover possible pneumonia) (2) TAB positive: Code(s): R76.8 - Other specified abnormal immunological findings in serum Status: Acute Assessment and Plan: TAB highly positive, also elevated IgG, pending actin IgG and LKM Ab wonder if she could have autoimmune hepatitis, AMA negative bilirubin has been trending down since started on prednisone, pending TPMT activity (see if she could be a candidate to use imuran later on)- will need follow with hepatology (3) Decompensation of cirrhosis of liver: Code(s): K72.90 - Hepatic failure, unspecified without coma; K74.60 - Unspecified cirrhosis of liver Status: Acute Assessment and Plan: referred to hepatology as outpatient- s/p paracentesis, also small size EV she has decompensated cirrhosis with ascites, she claims that had allergic response to aldactone, now only on lasix- switched to iv lasix and helping better ? autoimmune hepatitis (4) Pulmonary edema: Code(s): J81.1 - Chronic pulmonary edema Status: Acute Assessment and Plan: better with iv lasix, treated also for possible pneumonia feeling better and weaning oxgyen hopefully home soon (5) Abdominal ascites: Code(s): R18.8 - Other ascites Status: Acute Assessment and Plan: s/p paracentesis again given low grade fever and high nucleated cell but no neutrophils ? SBP 2g na diet iv lasix for now (6) Alcohol use: Code(s): Z78.9 - Other specified health status Status: Acute (7) Elevated liver enzymes: Code(s): R74.8 - Abnormal levels of other serum enzymes Status: Acute Assessment and Plan: also noted + TAB ? AIH bili down to 4 (8) Thrombocytopenia: Code(s): D69.6 - Thrombocytopenia, unspecified Status: Acute Assessment and Plan: from liver disease Subjective Date/time seen: 07/13/23 14:47 Interval history: clinically better, diuresing with iv lasix and trying to wean oxygen she is hoping to go home soon Review of Systems Review of Systems: All systems reviewed & are unremarkable except as noted in HPI and below Exam Const: General: comfortable HENMT: Face/Nose/Sinus: Normal nares present Eyes: Sclera: scleral abnormality (icteric sclerae) Neck: Neck: supple Chest: Other: + spider angioma Resp: Auscultation: diminished lung sounds Other: few rales Cardio: Rate: regular rate GI: GI Palp: Yes Soft to palpation, Yes Tenderness to palpation present (GI) (less tender) and Yes Hernia present umbilical Auscultation: normal bowel sounds Other: less fluid wave Skin: General skin exam: normal color Other: similar scaly rash in face Neuro: Speech: normal speech Motor exam (neuro): 5/5 motor strength present throughout Extrem: General: edema bilateral Psych: Mental Status: mental status grossly normal Objective Data Vital Signs Vital Signs: Vital Signs - 24 hr 07/12/23 16:00 07/12/23 16:00 07/12/23 20:00 Temperature 99.2 F 98.7 F Pulse Rate 90 91 95 Respiratory Rate 16 16 Blood Pressure 114/51 L 112/49 L Pulse Oximetry 93 92 Oxygen Delivery Oxygen Flow Rate 07/13/23 00:00 07/12/23 20:00 07/13/23 00:00 Temperature 96.7 F L Pulse Rate 75 91 74 Respiratory Rate 18 Blood Pressure 103/56 L Pulse Oximetry 95 Oxygen Delivery Oxygen Flow Rate 07/13/23 04:00 07/13/23 04:00 07/13/23 07:40 Temperature 98.2 F 97.9 F Pulse Rate 72 69 81 Respiratory Rate 16 20 Blood Pressure 112/65 110/59 L Pulse Oximetry 96 95 Oxygen Delivery Oxygen Flow Rate 07/13/23 08:00 04
--- NOTE | 2023-07-13 15:58 | PM.IMPN ---
Progress Note: A&P Assessment and Plan (1) Cirrhosis of liver: Code(s): K74.60 - Unspecified cirrhosis of liver Status: Acute (2) SBP (spontaneous bacterial peritonitis): Code(s): K65.2 - Spontaneous bacterial peritonitis Status: Acute (3) Hypoxia: Code(s): R09.02 - Hypoxemia Status: Acute (4) Obesity: Code(s): E66.9 - Obesity, unspecified Status: Acute (5) Thrombocytopenia: Code(s): D69.6 - Thrombocytopenia, unspecified Status: Acute (6) Tobacco abuse counseling: Code(s): Z71.6 - Tobacco abuse counseling Status: Acute (7) Hypothyroidism: Code(s): E03.9 - Hypothyroidism, unspecified Status: Acute (8) Pulmonary edema: Code(s): J81.1 - Chronic pulmonary edema Status: Acute (9) Thyroid nodule: Code(s): E04.1 - Nontoxic single thyroid nodule Status: Acute Plan Prior to admission, patient had CT abdomen pelvis on 06/21 showing cirrhosis with portal HTN, large amount of ascites with diffuse subcutaneous edema.? Chest x-ray showing bibasilar atelectasis.? Patient had a paracentesis in ED with 3700 mL of yellow fluid removed.? Urine culture was negative.? Blood cultures were negative.? Peritoneal fluid WBC was 151 and the aerobic and anaerobic cultures were negative.? Patient presented to ED on 06/25 with abdominal swelling and distention.?Initial labs shown a WBC 13.4, platelet count 97, AST 67, ALT 38, total bili 5.0, albumin 3.2.? Rocephin started (received 2 doses). Influenza, RSV and COVID PCR negative. UCx negative. CT A/P 06/23 showing cirrhosis, splenomegaly with evidence of portal HTN, moderate-large ascites and possible colitis (colitis resolved on repeat imaging). GI was consulted and appreciate their input. Status post paracentesis x3 this admission on 06/26 (3900mL), 07/01 (4650mL) and 07/08 (3000mL). EGD 07/01which showed small grade 1 versus that were not actively bleeding in the distal esophagus and mild gastritis. Hepatitis panel negative. Fevers developed 4/ and cultures obtained. CXR showing pulmonary opacities edema vs bronchiolitis so Doxycycline started. BCx negative. LE venous dopplers negative on 07/05. On 07/08, WBC 500 but mostly mesothelial and lymphocytes but patient was on abx. She was having abd pain so felt she had partially treated SBP. Doxycycline stopped and Ciprofloxacin started. TAB positive 1:1280 with a nucleolar pattern. Other autoimmune markers have been negative. She was started on prednisone on 07/09/2023. Patient started on Lasix. She is allergic to spironolactone. She has persistent thrombocytopenia related to the cirrhosis and splenomegaly. Patient with anemia with iron studies showing probably anemia chronic disease. Bilirubin peaked at 8.3. Since starting steroids, bilirubin level has trended downward. Patient developed hypoxia. CTA of the chest showed no PE but showed worsening diffuse lung disease consistent with pulmonary edema versus pneumonia. Antibiotics were switched from ciprofloxacin to Levaquin. Initial EKG showed QT prolongation but repeat EKG showed improvement in this. She was switched to IV Lasix. 07/08: Assuming care. Chart reviewed. Patient had a paracentesis done today. This is ordered to rule out SBP. She has 500 nucleated cells with half of them being mesothelial cells and the other half being lymphocytes. No neutrophils documented. Fluid was sent for culture and pathology. GI following and appreciate their input. Doxycycline stopped and Cipro started. Prednisone started for possible autoimmune hepatitis. Other testing added. Consider liver biopsy if not previously performed. 07/09: Patient still hypoxic which is new. Will check CXR and consider CTA. Cipro started but only given one dose. Cipro not resumed given the long QTc on her admission EKG. Will repeat EKG and if QTC is better, will resume Cipro. TBili slightly better. Continue Prednisone. Peritoneal cx remains negat
[2023-07-13] MEDS: PANTOPRAZOLE 40 MG TABLET PO ×2 (17:09→20:33)
[2023-07-13] MEDS: MIRTAZAPINE 7.5 MG TABLET PO (20:33)
[2023-07-14] VITALS (7 sets, daily range): BP systolic 97–118; BP diastolic 43–58; PULSE 73–106; RESP 12–16; TEMP 36.4–37; O2SAT 90–92
[2023-07-14] MEDS: HYDROcodone/acetaminophen (*CRX) 5-325 MG TABLET 1 TAB PO (02:39)
[2023-07-14] MEDS: LEVOTHYROXINE SODIUM 100 MCG TABLET 200 MCG PO (05:30)
[2023-07-14 05:57] LABS: Basophils Absolute Auto 0.1 K/mm3 (0.0-0.1); Basophils Percent Auto 0.8 % (0.2-1.2); Eosinophils Absolute Auto 0.2 K/mm3 (0-0.3); Eosinophils Percent Auto 2.2 % (0-4.4); Hematocrit 29.6 % (37.0-47.0); Hemoglobin 9.3 g/dL (12.0-15.0); Immature Granulocyte Absolute 0.04 K/mm3 (0.00-0.031); Immature Granulocyte Percent A 0.5 % (0-0.5); Immature Platelet Fraction Pct 3.3 % (0.9-11.2); Lymphocytes Absolute Auto 2.12 K/mm3 (0.9-3.2); Lymphocytes Percent Auto 27.3 % (18.3-44.2); Mean Corpuscular HGB Conc 31.4 g/dl (32-36); Mean Corpuscular Volume 111.3 fl (80-100); Monocytes Absolute Auto 1.1 K/mm3 (0.1-0.6); Monocytes Percent Auto 14.7 % (2.6-8.5); Neutrophils Absolute Auto 4.2 K/mm3 (1.3-6.7); Neutrophils Percent Auto 54.5 % (45.5-73.1); Platelet Count Result 79 k/mm3 (150-375); Red Blood Count 2.66 M/mm3 (4.2-5.4); White Blood Count 7.8 K/mm3 (4.5-10.0)
[2023-07-14 06:15] LABS: Alanine Aminotransferase 26 U/L (6-35); Albumin Level 3.6 g/dL (3.5-5.1); Alkaline Phosphatase 114 U/L (38-126); Anion Gap 6 mmol/L (4-12); Aspartate Amino Transferase 53 U/L (14-36); Blood Urea Nitrogen 14 mg/dL (7-17); Calcium 9.2 mg/dL (8.4-10.2); Carbon Dioxide 31 mmol/L (22-30); Chloride 100 mmol/L (98-107); Estimated CRCL calculation 123 ml/min; Estimated Glomerular Filt Rate > 60; Glucose 97 mg/dL (65-110); Potassium 2.8 mmol/L (3.4-5.0); Sodium 137 mmol/L (137-145)
[2023-07-14] MEDS: POTASSIUM CHLORIDE 20 MEQ PACKET (FOR LIQUID) 80 MEQ PO (06:43)
[2023-07-14 06:58] LABS: Anisocytosis 1+; Macrocytosis 1+ (NORMAL); Platelet Estimate Decreased (Adequate)
[2023-07-14 06:59] LABS: Schistocytes None Seen
[2023-07-14 07:10] LABS: Thyroid Stimulating Hormone Reflex 0.938 uIU/mL (0.465-4.68)
[2023-07-14] MEDS: VITAMIN E 400 UNIT CAPSULE 800 UNIT PO (09:02)
[2023-07-14] MEDS: THIAMINE HCL 100 MG TABLET PO (09:03)
[2023-07-14] MEDS: predniSONE 20 MG, predniSONE 10 MG 30 MG PO (09:04)
[2023-07-14] MEDS: PANTOPRAZOLE 40 MG TABLET PO (09:04)
[2023-07-14] MEDS: levoFLOXacin 750 MG TABLET PO (09:07)
[2023-07-14] MEDS: metOLazone 2.5 MG TABLET PO (09:08)
[2023-07-14] MEDS: POTASSIUM CHLORIDE 20 MEQ PACKET (FOR LIQUID) 40 MEQ PO (09:09)
[2023-07-14] MEDS: polyethylene glycoL 3350 17 GM POWD.PACK PO (09:09)
[2023-07-14] MEDS: FUROSEMIDE INJ 40 MG/4 ML VIAL IV PUSH (10:00)
[2023-07-14] MEDS: FLUTICASONE PROPIONATE 0.05% NA SPR 16 GM BTL (*BKC) 1 SPRAY NASAL (10:01)
--- NOTE | 2023-07-14 10:21 | PCNWS ---
Weekly nutritional screen. Patient is tolerating current 2g Na diet with adequate intake at 100%. No weight loss reported. No nutritional needs at this time.
--- NOTE | 2023-07-14 10:26 | HOMEO2EVAL ---
Evaluation was performed at [facility] Home Oxygen Evaluation RC: Home Oxygen (O2) Evaluation Start: 07/14/23 07:21 Freq: ONCE Status: Active Protocol: RPE Activity Type Activity Date Activity User E-sign Co-sign Detail Recorded Client Recorded Date Recorded By Document 07/14/23 10:09 KRM [email or web address] 07/14/23 10:26 KRM Document 07/14/23 10:11 KRM [email or web address] 07/14/23 10: KRM Document 07/14/23 10:13 KRM [email or web address] 07/14/23 10:26 KRM 07/14/23 07/14/23 07/14/23 10:09 10:11 10:13 Home O2 Evaluation [Oxygen] -Test Phase Resting Exercise Exercise -Oxygen Delivery Room Air Room Air Room Air [Pulse Oximetry] -Pulse Oximetry (90-100 %) 92 90 91 [Pulse Rate] -Pulse Rate (60-100 beats/min) 88 106 H 98 [Evaluation] -Activity Tolerance Good Good [Exercise] -Ambulation Distance (feet) 200 -Ambulation Distance (meters) 60.95 [Charges] -Evaluation Charges O2 Evaluation by Pulmonary
[2023-07-14 12:22] LABS: Magnesium 1.9 mg/dL (1.6-2.3); Potassium 3.4 mmol/L (3.4-5.0)
--- NOTE | 2023-07-14 14:45 | PM.DS ---
DS: Admitting Diagnosis Discharge Date 07/14/23 Admitting Diagnosis Worsening ascites DS: Discharge Diagnosis Discharge Diagnosis (1) Cirrhosis of liver: Code(s): K74.60 - Unspecified cirrhosis of liver Status: Acute (2) SBP (spontaneous bacterial peritonitis): Code(s): K65.2 - Spontaneous bacterial peritonitis Status: Acute (3) Hypoxia: Code(s): R09.02 - Hypoxemia Status: Acute (4) Obesity: Code(s): E66.9 - Obesity, unspecified Status: Acute (5) Thrombocytopenia: Code(s): D69.6 - Thrombocytopenia, unspecified Status: Acute (6) Tobacco abuse counseling: Code(s): Z71.6 - Tobacco abuse counseling Status: Acute (7) Hypothyroidism: Code(s): E03.9 - Hypothyroidism, unspecified Status: Acute (8) Pulmonary edema: Code(s): J81.1 - Chronic pulmonary edema Status: Acute (9) Thyroid nodule: Code(s): E04.1 - Nontoxic single thyroid nodule Status: Acute DS: Summary Hospital Course Reason for hospitalization: 53yo female with cirrhosis here for worsening ascites. Please see H&P for dertails. Hospital Course: Prior to admission, patient was seen in the ED and had CT abdomen pelvis on 06/21 showing cirrhosis with portal HTN, large amount of ascites with diffuse subcutaneous edema.? Chest x-ray showing bibasilar atelectasis.? Patient had a paracentesis in ED with 3700 mL of yellow fluid removed.? Urine culture was negative.? Blood cultures were negative.? Peritoneal fluid WBC was 151 and the aerobic and anaerobic cultures were negative.? Patient presented back to ED on 06/25 with abdominal swelling and distention.?Initial labs shown a WBC 13.4, platelet count 97, AST 67, ALT 38, total bili 5.0, albumin 3.2.? Rocephin started (received 2 doses). Influenza, RSV and COVID PCR negative. UCx negative. CT A/P 06/25 showing cirrhosis, splenomegaly with evidence of portal HTN, moderate ascites and resolution of colonic wall edema that was seen prior imaging. GI was consulted and appreciate their input. Status post paracentesis x3 this admission on 06/26 (3900mL), 07/01 (4650mL) and 07/08 (3000mL). EGD 07/01 which showed small grade 1 versus that were not actively bleeding in the distal esophagus and mild gastritis. Hepatitis panel negative. Fevers developed 07/03 and cultures obtained. CXR showing pulmonary opacities edema vs bronchiolitis so Doxycycline started. BCx negative. LE venous dopplers negative on 07/05. On 07/08, paracentesis performed showing WBC 500 but mostly mesothelial and lymphocytes but patient was on abx. She was having abd pain so felt she had partially treated SBP. Doxycycline stopped and Ciprofloxacin started. TAB positive 1:1280 with a nucleolar pattern. Other autoimmune markers have been negative. She was started on prednisone on 07/09/2023. Patient started on Lasix. She is allergic to spironolactone. She has persistent thrombocytopenia related to the cirrhosis and splenomegaly. Patient with anemia with iron studies showing probably anemia chronic disease. Bilirubin peaked at 8.3. Since starting steroids, bilirubin level has trended downward. Patient developed hypoxia. CTA of the chest showed no PE but showed worsening diffuse lung disease consistent with pulmonary edema versus pneumonia. Antibiotics were switched from ciprofloxacin to Levaquin. Initial EKG showed QT prolongation but repeat EKG showed improvement in this. She was switched to IV Lasix and metolazone added. Lung exam improved and able to wean off O2. Home O2 evaluation showing she dies not need oxygen at discharge. She had clinical improvement. She was able to be discharged home on 07/14/23. Status at Discharge Cognitive/behavioral status at discharge: stable Time Spent with Patient Time attestation: Total time spent providing and/or coordinating discharge services: 40 minues Time spent: Greater than 30 minutes Specific discharge activi
[2023-07-17 22:19] LABS: Legionella pneumophila Ag Ur NOT DETECTED
[2023-07-18 12:43] LABS: Actin Antibody (IgG) <20 U (<20)
[2023-07-18 17:14] LABS: Pneumococcal Antigen Urine NOT DETECTED
[2023-07-21 11:43] LABS: LKM 1 Antibody <=20.0 U (<=20.0)
[2023-07-25 14:44] LABS: TPMT Activity 22
--- NOTE | 2023-08-11 00:13 | PC.NURSE ---
07/14/23 0615 am Patient had a critical potassium result. Dr Glasgow was notified at 0620. She order 80 MeQ KCL orally one time stat and a recheck of the potassium level at 07/14/23 at 1300.
== END 2023-07-14 15:38 | disposition home or self-care (01) | DRG 372 ==
LOC: ANHED 22:57 → ANH3MEDSUR 06-27 00:12
PROVIDERS: Emergency Medicine; Family Medicine; Internal Medicine; Internal Medicine Gastroenterology; Nurse Practitioner Acute Care; Admitting Provider Internal Medicine; Emergency Provider Physician Assistant; Visit Provider Internal Medicine
PROC: 0DJ08ZZ Inspection of Upper Intestinal Tract, Via Natural or Artificial Opening Endoscopic (ICD-10-PCS; CPT 43235; principal; 2023-07-02 16:30)
DX: K65.2 Spontaneous bacterial peritonitis (principal); I85.00 Esophageal varices without bleeding; K76.6 Portal hypertension; N39.0 Urinary tract infection, site not specified; R18.8 Other ascites; J81.1 Chronic pulmonary edema; K75.81 Nonalcoholic steatohepatitis (NASH); K72.10 Chronic hepatic failure without coma; K74.60 Unspecified cirrhosis of liver; D63.8 Anemia in other chronic diseases classified elsewhere; D69.6 Thrombocytopenia, unspecified; E87.6 Hypokalemia; E06.3 Autoimmune thyroiditis; E66.9 Obesity, unspecified; R76.8 Other specified abnormal immunological findings in serum; F17.210 Nicotine dependence, cigarettes, uncomplicated; F10.90 Alcohol use, unspecified, uncomplicated; I27.20 Pulmonary hypertension, unspecified; K29.70 Gastritis, unspecified, without bleeding; E04.1 Nontoxic single thyroid nodule; Z88.0 Allergy status to penicillin
CPT/HCPCS: 36415; 36600; 49083; 71045; 71046; 71275; 74177; 80048; 80053; 80074; 81001; 82104; 82390; 82607; 82657; 82728; 82746; 82784; 82805; 83520; 83540; 83550; 83690; 83735; 83880; 84100; 84132; 84443; 85025; 85027; 85055; 85610; 85730; 86038; 86039; 86225; 86235; 86364; 86376; 87040; 87070; 87075; 87086; 87205; 87449; 87641; 87899; 88108; 88305; 89051; 93005; 93970; 94618; 96365; 96366; 96367; 96374; 96375; 99284; 99285; A9270; G0378; J0696; J0744; J1170; J1650; J1885; J1940; J1956; J2704; J3475; J3480; J7040; J7120; J7512; P9047; Q9967

== ENCOUNTER 2023-09-03 17:14 | Emergency (ER) | payer BC, SELFPAY ==
[2023-09-03] VITALS (11 sets, daily range): BP systolic 117–140; BP diastolic 69–72; PULSE 85–105; RESP 18–22; TEMP 37–37.1; O2SAT 95–98
--- NOTE | ~2023-09-03 | CT_ITS ---
CT abdomen pelvis w con Ordering provider: Shmuel Flores PA-C History: . abd distention . Comparison: July 01, 2023 Technique: CT abdomen with IV and without oral contrast. Radiation reduction technique utilized. Findings: VISUALIZED LOWER CHEST: Normal. Minimal dependent atelectatic changes. UPPER ABDOMINAL ORGANS: Liver: Liver cirrhosis is noted with lobulation of the outline. Portacaval shunt is seen around the u mbilicus. Gallbladder: Status post cholecystectomy. Spleen: Normal. Stomach/duodenum: Normal. Pancreas: Normal. Adrenals: Normal. Kidneys: Calcifications in the left kidney upper pole unchanged from previous examination. VISUALIZED BOWEL AND MESENTERY: No evidence of obstruction. No evidence of appendicitis. The bowel is otherwise normal. Gross ascites is noted. No mesenteric lymphadenopathy. Fat stranding is seen in th e mesentery anteriorly RETROPERITONEUM: Normal aorta. . No retroperitoneal lymphadenopathy. MUSCULOSKELETAL: Edema in the subcutaneous tissues is seen otherwise, The superficial soft tissues ar e normal. Age appropriate degenerative changes of the spine. And bilateral iliac is noted. IMPRESSION: Liver cirrhosis with portacaval shunt seen around the umbilicus. Gross ascites. Calcifications in the left upper pole of the kidney unchanged. Reviewed, dictated and finalized at location A.
[2023-09-03 17:38] LABS: Basophils Absolute Auto 0.1 K/mm3 (0.0-0.1); Eosinophils Absolute Auto 0.2 K/mm3 (0-0.3); Eosinophils Percent Auto 3.9 % (0-4.4); Hematocrit 32.7 % (37.0-47.0); Hemoglobin 10.3 g/dL (12.0-15.0); Immature Granulocyte Absolute 0.01 K/mm3 (0.00-0.031); Immature Granulocyte Percent A 0.2 % (0-0.5); Immature Platelet Fraction Pct 2.2 % (0.9-11.2); Lymphocytes Percent Auto 24.7 % (18.3-44.2); Mean Corpuscular HGB Conc 31.5 g/dl (32-36); Mean Corpuscular Hemoglobin 34.3 pg (26-34); Mean Platelet Volume 10.1 fl (7.4-10.4); Monocytes Absolute Auto 0.8 K/mm3 (0.1-0.6); Monocytes Percent Auto 15.9 % (2.6-8.5); Neutrophils Absolute Auto 2.6 K/mm3 (1.3-6.7); Neutrophils Percent Auto 54.3 % (45.5-73.1); Platelet Count Result 99 k/mm3 (150-375); Red Cell Distribution Width 17.1 % (11.5-14.5); White Blood Count 4.9 K/mm3 (4.5-10.0)
--- NOTE | 2023-09-03 17:45 | ED.ABDPAIN ---
HPI - Abdominal Pain General Chief Complaint: Abdominal Pain <AISHA Todd Last Filed: 09/04/23 02:26> Stated Complaint: abd pressure, shortness of breath <AISHA Todd Last Filed: 09/04/23 02:26> Time Seen by Provider: 09/03/23 17:22 <AISHA Todd Last Filed: 09/04/23 02:26> Source: patient <AISHA Todd Last Filed: 09/04/23 02:26> Mode of arrival: ambulatory <AISHA Todd Last Filed: 09/04/23 02:26> Limitations: no limitations <AISHA Todd Last Filed: 09/04/23 02:26> History of Present Illness HPI narrative: this is a 53-year-old female with PMH of liver cirrhosis secondary to BACON, portal hypertension, recurrent ascites who presents to the ED with chief complaint abdominal distension and shortness of breath for the past couple of days. Reports that she has been admitted both here and another hospital and then over the past couple of months. Both time she had her abdomen tapped. The last tap was 3 weeks ago. States that she has been given referrals to GI specialist but has not gotten any calls back for appointments. Today she states that the the abdomen is so distended it is causing difficulties breathing with any exertion. It is more uncomfortable than painful. Denies fevers, chills, nausea, vomiting <AISHA Todd Last Filed: 09/04/23 02:26> Related Data Home Medications: Home Medications Medication Instructions Recorded Confirmed furosemide 20 mg tablet 20 mg PO DAILY 06/27/23 06/27/23 levothyroxine 200 mcg tablet 200 mcg PO DAILY 06/27/23 06/27/23 <AISHA Todd Last Filed: 09/04/23 02:26> Allergies/Adverse Reactions: Allergies Allergy/AdvReac Type Severity Reaction Status Date / Time spironolactone Allergy Intermediate Hives Verified 09/03/23 17:27 amoxicillin Allergy Hives Verified 09/03/23 17:27 Penicillins Allergy Hives Verified 09/03/23 17:27 <Shmuel Flores PA-C - Last Filed: 09/04/23 02:26> Review of Systems Review of Systems: All systems as dictated in HPI <Shmuel Flores PA-C - Last Filed: 09/04/23 02:26> PMFSH Past Medical History Medical History: Medical History (Updated 09/04/23 @ 01:49 by Shmuel Flores PA-C) Alcohol use TAB positive Colon cancer screening Decompensation of cirrhosis of liver Elevated liver enzymes Hypothyroidism 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 Nicotine dependence, cigarettes, with other nicotine-induced disorders Portal hypertension Pulmonary edema SBP (spontaneous bacterial peritonitis) Thrombocytopenia <Shmuel Flores PA-C - Last Filed: 09/04/23 02:26> Surgical History Surgical History: Surgical History No significant past surgical history <Shmuel Flores PA-C - Last Filed: 09/04/23 02:26> Social History Social History: Social History Years smoked: 15 Smoking status: Current every day smoker Tobacco type: cigarettes Alcohol intake: former Substance use: never Do You Feel Safe in your Home?: Yes Lack of Transportation: No Lack of Food: Sometimes True Current Housing: I Have Housing Concerned About Future Housing: No Difficulty Paying Gas/Electric Bills: No Difficulty Paying for Meds: No Currently Unemployed: No Education: High School Diploma/GED Difficulty w/ Childcare or Family Care: No Spiritual care concerns: No <Shmuel Flores PA-C - Last Filed: 09/04/23 02:26> Exam Narrative: GENERAL: Well-appearing, well-nourished, and in no acute distress. HEAD: Normocephalic, atraumatic. EYES: PERRLA and EOMI. ENT: Nares clear, no rhinorrhea or epistaxis. Mucous membranes moist. Oropharynx without tonsillar hypertrophy exudate or other lesions. NECK: Supple. No adenopathy or masses. CHEST: No respiratory distress. Clear to auscultation. No wheezes rales or rhonc
[2023-09-03 17:48] LABS: Alanine Aminotransferase 17 U/L (6-35); Albumin Level 3.5 g/dL (3.5-5.1); Alkaline Phosphatase 116 U/L (38-126); Anion Gap 9 mmol/L (4-12); Aspartate Amino Transferase 44 U/L (14-36); Bilirubin,Total 6.1 mg/dL (0.2-1.3); Blood Urea Nitrogen 11 mg/dL (7-17); Calcium 8.2 mg/dL (8.4-10.2); Carbon Dioxide 19 mmol/L (22-30); Chloride 108 mmol/L (98-107); Estimated CRCL calculation 140 ml/min; Estimated Glomerular Filt Rate > 60; Glucose 109 mg/dL (65-110); Lipase 194 U/L (23-300); Potassium 3.5 mmol/L (3.4-5.0); Sodium 136 mmol/L (137-145)
[2023-09-03 17:54] LABS: INR 1.9; Prothrombin Time 22.2 Seconds (11.1-14.7)
[2023-09-03 18:29] LABS: Anisocytosis 1+; Macrocytosis 1+ (NORMAL); Ovalocytes 1+; Platelet Estimate Decreased (Adequate); Schistocytes None Seen; Tear Drop Cells 1+
[2023-09-03 20:29] LABS: Appearance Urine Clear (Clear); Bacteria Urine Rare /hpf; Bilirubin Urine 2+ (Negative); Blood Urine 1+ (Negative); Color Urine Dark Yellow (Yellow); Glucose Urine UA Negative (Negative); Ketones Urine Trace mg/dL (Negative); Leukocyte Esterase Ur Negative LEU/UL (Negative); Need Manual Microscopic Reviewed; Nitrate Urine Negative (Negative); Non Pathogenic Casts 0-2; Protein Urine Trace mg/dL (Negative); Squamous Epithelial Cell Urine Few /hpf (Few); WBC Urine 0-5 /hpf (0-3)
[2023-09-03 20:31] LABS: Specific Grav Ur 1.095 (1.001-1.035)
[2023-09-03 20:32] LABS: Add Urine Microscopic? YES
[2023-09-04] VITALS (10 sets, daily range): BP systolic 113–130; BP diastolic 62–84; PULSE 88–100; RESP 14–19; TEMP 36.6–36.7; O2SAT 92–100
[2023-09-04] MEDS: MORPHINE SULFATE (*CRX) 4 MG/ML INJ IV PUSH (02:45)
[2023-09-04] MEDS: ONDANSETRON INJ 4 MG/2 ML VIAL IV PUSH (02:45)
[2023-09-04] MEDS: FUROSEMIDE INJ 40 MG/4 ML VIAL IV PUSH (02:46)
[2023-09-04] MEDS: fentaNYL CITRATE INJ (*CRX) 100 MCG/2 ML VIAL 25 MCG IV PUSH (06:43)
--- NOTE | 2023-09-04 07:18 | PC.NURSE ---
Bedside report recieved from Jesusita RN, pt is alert and aware of POC. Pt has an accepting doctor for transfer, Dr Saab, awaiting bed at this time. Pt is in hospital bed, and has no questions or concerns at this time. VSS.
--- NOTE | 2023-09-04 07:20 | PC.NURSE ---
This RN ordered a breakfast tray for the patient as requested at this time, per Jesusita RN during bedside report, pt is awaiting a bed at [facility] and not currently NPO.
--- NOTE | 2023-09-04 08:59 | PC.NURSE ---
[address] [facility] - remains on waitlist @ [facility] no beds available
[2023-09-04] MEDS: fentaNYL CITRATE INJ (*CRX) 100 MCG/2 ML VIAL 50 MCG IV PUSH (14:10)
--- NOTE | 2023-09-04 14:41 | PC.NURSE ---
[facility] called and states [facility] is still at capacity and states they will call back when they get a bed. States to update them if there is a significant change in pt condition and they need to expedite the process.
--- NOTE | 2023-09-04 15:44 | PC.NURSE ---
received bed at [address] [place] [address]
== END 2023-09-04 17:05 | disposition short-term general hospital (02) ==
PROVIDERS: Emergency Provider Physician Assistant
DX: K74.60 Unspecified cirrhosis of liver (principal); R18.8 Other ascites; E03.9 Hypothyroidism, unspecified; F17.210 Nicotine dependence, cigarettes, uncomplicated
CPT/HCPCS: 36415; 74177; 80053; 81001; 83690; 85025; 85055; 85610; 96374; 96375; 96376; 99285; J1940; J2270; J2405; J3010; Q9967

== ENCOUNTER 2023-10-21 18:54 | Observation (INO) | payer BC, SELFPAY ==
--- NOTE | ~2023-10-21 | CT_ITS ---
EXAMINATION: CT abdomen pelvis w con DATE: 10/22/2023 01:43 INDICATION: Diffuse abdominal pain. Suspect spontaneous bacterial peritonitis. TECHNIQUE: Computed tomography (CT) of the abdomen and pelvis was performed with 100 mL Omnipaque-350 intravenous contrast. Automated exposure control and iterative reconstruction technique were employe d. The dose-length product was 1463.24 mGy-cm. COMPARISON: 09/03/2023 FINDINGS: Mild discoid atelectasis/scarring at the lingula. Heart size is normal. No pericardial or pleural eff usion. Cirrhosis with nodular liver surface. Secondary portal venous hypertension with splenomegaly m easuring 15.9 cm and multiple portosystemic collaterals including recanalized umbilical vein with a c aput medusae at the umbilicus, splenorenal collaterals and gastrosplenic collaterals with paraesophag eal varices. Cholecystectomy clips at the gallbladder fossa. Pancreas, right kidney and bilateral adr enal glands are normal. 9 mm nonobstructing stone versus parenchymal calcific lesion at the site of f ocal cortical scarring at the upper pole of the left kidney. Large volume of ascites throughout the a bdomen and pelvis as well as into a small umbilical hernia. No evident peritoneal enhancement to elev ate suspicion for bacterial peritonitis but would correlate with paracentesis. No abscess or free int raperitoneal gas. Bladder is decompressed. The uterus is not identified and has likely been surgicall y resected. No bowel obstruction. Normal appendix. No bowel obstruction. There is edematous wall thic kening at the ascending colon which could be due to colitis or more likely hepatic colopathy. Likely reactive mild periportal and portacaval lymphadenopathy. Diffuse body wall edema. IMPRESSION: 1. Cirrhosis with large volume of ascites and multiple stigmata of portal venous hypertension includi ng splenomegaly and multiple portosystemic collaterals including paraesophageal varices. 2. Wall thickening in the ascending colon consistent with colitis versus hepatic colopathy. 3. Mild portacaval and periportal lymphadenopathy most likely reactive related to cirrhosis. Reviewed, dictated and finalized at location A. IMPRESSION: 1. Cirrhosis with large volume of ascites and multiple stigmata of portal venou s hypertension including splenomegaly and multiple portosystemic collaterals in cluding paraesophageal varices. 2. Wall thickening in the ascending colon consistent with colitis versus hepati c colopathy. 3. Mild portacaval and periportal lymphadenopathy most likely reactive related to cirrhosis.
--- NOTE | ~2023-10-21 | XR_ITS ---
EXAMINATION: XR chest 2V Exam Date/Time: 10/21/2023 19:22 CDT HISTORY: chest pain Comparison: 07/13/2023. RESULT: Lines, tubes, and devices: None. Lungs and pleura: Mild diffuse reticulonodular opacities with cuffing. Cardiomediastinal silhouette: Stable. Other: No acute osseous or upper abdominal finding. IMPRESSION: Mild interstitial edema versus respiratory bronchiolitis. Reviewed, dictated and finalized at location K.
--- NOTE | ~2023-10-21 | US_ITS ---
EXAMINATION: US paracentesis abd w/image DATE: 10/22/2023 11:17 INDICATION: Assess for spontaneous bacterial peritonitis TECHNIQUE: The procedure and its risks and benefits were discussed with the patient. Potential risks discussed included bleeding and infection. The skin was prepped and draped in sterile fashion. 1% lid ocaine was used for local anesthesia. Under ultrasound guidance, a 5 Fr catheter with trochar was adv anced into the ascites in the left lower quadrant. Fluid was aspirated into vacuum bottles. The haley ter was removed, and a dressing was applied. There were no immediate complications. FINDINGS: Ultrasound images demonstrate ascites and the catheter within the fluid. IMPRESSION: 1. Successful ultrasound-guided paracentesis yielding 5000 mL of fidencio-colored fluid. Reviewed, dictated and finalized at location A.
[2023-10-21 19:08] VITALS: BP 123/64; PULSE 101; RESP 18; TEMP 36.6; O2SAT 93
--- NOTE | 2023-10-21 19:12 | ECG_ITS ---
Test Date: 2023-10-21 19:57:06 Measurements Intervals [place] Rate: 89 P: 28 [place]: 181 QRS: -55 QRSD: 110 T: 55 QT: 424 QTc: 516 Interpretive Statements SINUS RHYTHM LEFT ANTERIOR FASCICULAR BLOCK BASELINE ARTIFACT- V6 ABNORMAL ECG No previous ECG available for comparison Electronically Signed On 10-22-2023 06:31:52 CDT by Glen Woodruff D.O.
[2023-10-21 20:27] LABS: INR 1.5; Prothrombin Time 18.8 Seconds (11.1-14.7)
[2023-10-21 20:38] LABS: Alanine Aminotransferase 22 U/L (6-35); Albumin Level 3.1 g/dL (3.5-5.1); Alkaline Phosphatase 142 U/L (38-126); Anion Gap 7 mmol/L (4-12); Aspartate Amino Transferase 65 U/L (14-36); Bilirubin,Total 5.7 mg/dL (0.2-1.3); Blood Urea Nitrogen 13 mg/dL (7-17); Calcium 8.1 mg/dL (8.4-10.2); Carbon Dioxide 24 mmol/L (22-30); Chloride 101 mmol/L (98-107); Estimated CRCL calculation 113 ml/min; Estimated Glomerular Filt Rate > 60; Glucose 103 mg/dL (65-110); Lipase 158 U/L (23-300); Potassium 3.5 mmol/L (3.4-5.0); Sodium 132 mmol/L (137-145)
[2023-10-21 21:02] LABS: Troponin I < 0.012 ng/mL (0.000-0.034)
--- NOTE | 2023-10-21 21:36 | ECG_ITS ---
Test Date: 2023-10-21 21:37:24 Measurements Intervals [place] Rate: 80 P: 27 IL: 185 QRS: -47 QRSD: 113 T: 26 QT: 427 QTc: 494 Interpretive Statements SINUS RHYTHM LEFT ANTERIOR FASCICULAR BLOCK ABNORMAL ECG Compared to ECG 10/21/2023 19:57:06 NO SIGNIFICANT CHANGE Electronically Signed On 10-22-2023 06:33:27 CDT by Glen Woodruff D.O.
[2023-10-21 21:49] LABS: Basophils Absolute Auto 0.1 K/mm3 (0.0-0.1); Eosinophils Absolute Auto 0.2 K/mm3 (0-0.3); Eosinophils Percent Auto 3.7 % (0-4.4); Hematocrit 30.9 % (37.0-47.0); Immature Granulocyte Absolute 0.02 K/mm3 (0.00-0.031); Immature Granulocyte Percent A 0.3 % (0-0.5); Immature Platelet Fraction Pct 2.1 % (0.9-11.2); Lymphocytes Absolute Auto 1.21 K/mm3 (0.9-3.2); Lymphocytes Percent Auto 21.1 % (18.3-44.2); Mean Corpuscular HGB Conc 32.4 g/dl (32-36); Mean Corpuscular Volume 105.1 fl (80-100); Mean Platelet Volume 9.9 fl (7.4-10.4); Monocytes Absolute Auto 0.8 K/mm3 (0.1-0.6); Monocytes Percent Auto 14.1 % (2.6-8.5); Neutrophils Absolute Auto 3.4 K/mm3 (1.3-6.7); Neutrophils Percent Auto 59.8 % (45.5-73.1); Platelet Count Result 98 k/mm3 (150-375); Red Blood Count 2.94 M/mm3 (4.2-5.4); Red Cell Distribution Width 19.7 % (11.5-14.5); White Blood Count 5.7 K/mm3 (4.5-10.0)
[2023-10-21 22:07] LABS: Anisocytosis 1+; Macrocytosis 1+ (NORMAL); Platelet Estimate Decreased (Adequate); Schistocytes None Seen
[2023-10-21 22:08] LABS: Troponin I < 0.012 ng/mL (0.000-0.034)
[2023-10-21 22:33] VITALS: BP 123/66; PULSE 82; PULSE 89; RESP 17; O2SAT 95; O2SAT 96
--- NOTE | 2023-10-21 23:54 | ED.GENADULT ---
HPI - General Adult General Chief complaint: Shortness of Breath/Dyspnea Stated complaint: Abdominal pain and swelling Time Seen by Provider: 10/21/23 22:27 History of Present Illness HPI narrative: This is a 53-year-old female with history of liver cirrhosis presenting with abdominal pain. Patient has ascites from liver failure. Last paracentesis 6 days ago Leonidesbethany Tonio. Patient has now developed diffuse abdominal pain for the last 2 days. No fevers. She does note some shortness of breath but is not respiratory distress. No other symptoms. Related Data Home Medications Medication Instructions Recorded Confirmed furosemide 20 mg tablet 20 mg PO DAILY 06/27/23 06/27/23 levothyroxine 200 mcg tablet 200 mcg PO DAILY 06/27/23 06/27/23 Allergies Allergy/AdvReac Type Severity Reaction Status Date / Time spironolactone Allergy Intermediate Hives Verified 10/21/23 22:36 amoxicillin Allergy Hives Verified 10/21/23 22:36 latex Allergy Rash Verified 10/21/23 22:36 Penicillins Allergy Hives Verified 10/21/23 22:36 [facility] Past Medical History Medical History Alcohol use TAB positive Colon cancer screening Decompensation of cirrhosis of liver Elevated liver enzymes Hypothyroidism 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 Nicotine dependence, cigarettes, with other nicotine-induced disorders Portal hypertension Pulmonary edema SBP (spontaneous bacterial peritonitis) Thrombocytopenia Surgical History Surgical History No significant past surgical history Social History Social History Years smoked: 15 Smoking status: Current every day smoker Tobacco type: cigarettes Alcohol intake: former Substance use: never Do You Feel Safe in your Home?: Yes Lack of Transportation: No Lack of Food: Sometimes True Current Housing: I Have Housing Concerned About Future Housing: No Difficulty Paying Gas/Electric Bills: No Difficulty Paying for Meds: No Currently Unemployed: No Education: High School Diploma/GED Difficulty w/ Childcare or Family Care: No Spiritual care concerns: No Exam Narrative: APPEARANCE: No apparent distress. Head: atraumatic. EYES: EOMI, NOSE: Atraumatic NECK: Trachea midline RESPIRATORY: No increased rate of breathing CARDIOVASCULAR: RRR, ABDOMINAL: Abdomen is diffusely tender, fluid wave MUSCULOSKELETAl: No obvious deformities NEURO: Alert. Moving 4/4 extremities SKIN:: Warm, dry. Normal color PSYCHIATRIC: Normal affect Course Vital Signs Vital signs: Vital Signs Temperature 98 F 10/21/23 19:08 Pulse Rate 101 H 10/21/23 19:08 Respiratory Rate 18 10/21/23 19:08 Blood Pressure 123/64 10/21/23 19:08 Pulse Oximetry 93 10/21/23 19:08 Oxygen Delivery Room Air 10/21/23 19:08 Temperature 98 F 10/21/23 19:08 Pulse Rate 79 10/22/23 02:00 Respiratory Rate 17 10/22/23 02:00 Blood Pressure 128/67 10/22/23 02:00 Pulse Oximetry 96 10/22/23 02:00 Oxygen Delivery Room Air 10/21/23 22:33 Medical Decision Making MDM Narrative Medical decision making narrative: -Course: 53-year-old female with ascites presenting with abdominal pain. Presentation concerning for SBP. Patient will be started on ceftriaxone and admitted for diagnostic and therapeutic paracentesis. Patient noted some difficulty breathing but has no objective signs of dyspnea with normal respiratory rate and oxygen levels. Chest x-ray showed some mild interstitial edema. -DDX includes but is not limited to: Spontaneous bacterial peritonitis. Fluid overload liver cirrhosis, -Co-morbidities complicating care: Liver cirrhosis -Independent interpretation of studies: CBC reviewed. Metabolic panel showed hyponatremia 132. Elevations in bilirubin AST and alk phos. BUN 3.1. Chest x-ray showed mild interstitial
[2023-10-22] VITALS (8 sets, daily range): BP systolic 93–137; BP diastolic 49–67; PULSE 78–89; RESP 15–20; TEMP 36.2–36.9; O2SAT 94–97; BMI 38.5
--- NOTE | 2023-10-22 01:19 | ECG_ITS ---
Test Date: 2023-10-22 01:19:10 Measurements Intervals [place] Rate: 78 P: 35 VT: 184 QRS: -53 QRSD: 112 T: 48 QT: 464 QTc: 529 Interpretive Statements SINUS RHYTHM LEFT ANTERIOR FASCICULAR BLOCK ABNORMAL ECG Compared to ECG 10/21/2023 21:37:24 NO SIGNIFICANT CHANGE Electronically Signed On 10-22-2023 14:02:58 CDT by Glen Woodruff D.O.
[2023-10-22 02:04] LABS: Troponin I < 0.012 ng/mL (0.000-0.034)
[2023-10-22] MEDS: cefTRIAXone 2 GM/NS 100 ML 2 GM/100 ML BAG IVPB (02:20)
[2023-10-22] MEDS: HYDROmorphone HCL INJ (*CRX) 1 MG/ML SYR 0.5 MG IV PUSH (02:20)
--- NOTE | 2023-10-22 05:34 | ADMGEN ---
This patient, Nasreen Orozco, was admitted to [facility] Surg Room 325-02. Patient/family oriented to hospital policies and general routines including ID bracelet, bed and alarms, visiting hours, pain management, procedures, bathroom and other care routines, personal items, smoking policy, room service/diet, and visiting hours. Information on how to activate the Rapid Response Team has been discussed. Patient/Family are encouraged to report perceived risks to care and to ask questions if they do not understand what they are told or what they should do.
[2023-10-22 09:49] LABS: Basophils Absolute Auto 0.1 K/mm3 (0.0-0.1); Basophils Percent Auto 1.4 % (0.2-1.2); Eosinophils Absolute Auto 0.3 K/mm3 (0-0.3); Hematocrit 28.6 % (37.0-47.0); Hemoglobin 9.1 g/dL (12.0-15.0); Immature Granulocyte Absolute 0.02 K/mm3 (0.00-0.031); Immature Granulocyte Percent A 0.4 % (0-0.5); Immature Platelet Fraction Pct 1.6 % (0.9-11.2); Lymphocytes Absolute Auto 1.03 K/mm3 (0.9-3.2); Lymphocytes Percent Auto 20.4 % (18.3-44.2); Mean Corpuscular HGB Conc 31.8 g/dl (32-36); Mean Corpuscular Hemoglobin 34.2 pg (26-34); Mean Corpuscular Volume 107.5 fl (80-100); Monocytes Absolute Auto 0.8 K/mm3 (0.1-0.6); Monocytes Percent Auto 15.6 % (2.6-8.5); Neutrophils Absolute Auto 2.9 K/mm3 (1.3-6.7); Neutrophils Percent Auto 57.2 % (45.5-73.1); Platelet Count Result 86 k/mm3 (150-375); Red Blood Count 2.66 M/mm3 (4.2-5.4); Red Cell Distribution Width 19.4 % (11.5-14.5); White Blood Count 5.1 K/mm3 (4.5-10.0)
[2023-10-22 09:55] LABS: Alanine Aminotransferase 19 U/L (6-35); Albumin Level 2.7 g/dL (3.5-5.1); Alkaline Phosphatase 88 U/L (38-126); Anion Gap 7 mmol/L (4-12); Aspartate Amino Transferase 47 U/L (14-36); Bilirubin,Total 5.3 mg/dL (0.2-1.3); Blood Urea Nitrogen 13 mg/dL (7-17); Calcium 7.8 mg/dL (8.4-10.2); Carbon Dioxide 26 mmol/L (22-30); Chloride 101 mmol/L (98-107); Estimated CRCL calculation 119 ml/min; Estimated Glomerular Filt Rate > 60; Glucose 106 mg/dL (65-110); Potassium 3.1 mmol/L (3.4-5.0); Sodium 134 mmol/L (137-145)
[2023-10-22] MEDS: MORPHINE SULFATE (*CRX) 2 MG/ML INJ IV PUSH (10:21)
[2023-10-22 10:29] LABS: Anisocytosis 1+; Microcytosis 1+ (NORMAL); Platelet Estimate Decreased (Adequate); Schistocytes None Seen
[2023-10-22] MEDS: FUROSEMIDE 40 MG TABLET PO (11:54)
[2023-10-22] MEDS: LEVOTHYROXINE SODIUM 100 MCG TABLET 200 MCG PO (11:55)
[2023-10-22] MEDS: POTASSIUM CHLORIDE 20 MEQ PACKET (FOR LIQUID) 40 MEQ PO (11:55)
[2023-10-22] MEDS: PANTOPRAZOLE 40 MG TABLET PO (11:55)
[2023-10-22] MEDS: ENOXAPARIN 40 MG/0.4 ML SYRINGE SUB-Q (11:58)
[2023-10-22] MEDS: HYDROcodone/acetaminophen (*CRX) 5-325 MG TABLET 1 TAB PO ×2 (12:00→19:59)
--- NOTE | 2023-10-22 15:05 | PM.SD2 ---
Same Day Admit/Disch: HPI History of Present Illness Chief complaint: R/O SBP Narrative: Nasreen Orozco is a 53 year old female who presented the ED with complaints of shortness of breath with abdominal pain. Patient was recently at [facility] and just discharged about 7 days ago. At that time she did have a paracentesis done as well. She did state that when her ascites gets really bad that it pushes up to her chest and it is hard for breathe and causes her to have chest pain. He she also states that it really does help when she lays on her side. She has also been eating differently and having nausea. She said all this started yesterday and also stated that she was not able to do anything at home to help herself. She does have an appointment coming up with a liver specialist at [facility]. She is also concerned about her renal function states she never really goes the bathroom. Labs and vital signs appear stable at this time. Patient did have a thoracentesis done here which did take off 5 L. currently she denies any vomiting, diarrhea, fevers, sweats, chills, lightheadedness, dizziness. She did state she was having little chest pain little shortness of breath. Currently patient is being admitted to the hospitalist service under observation. Patient will require less than 2 midnights for workup, treatment and recovery. [facility] Past Medical History Medical History Alcohol use TAB positive Colon cancer screening Decompensation of cirrhosis of liver Elevated liver enzymes Hypothyroidism 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 Nicotine dependence, cigarettes, with other nicotine-induced disorders Portal hypertension Pulmonary edema SBP (spontaneous bacterial peritonitis) Thrombocytopenia Surgical History Surgical History No significant past surgical history Family History Family History (Updated 10/22/23 @ 15:13 by JAVIER Walters) Sibling Alcohol abuse Brother Social History Social History (Updated 10/22/23 @ 15:16 by JAVIER Walters) Social History: Patient currently lives between friends in her dad. She has 1 child at the daughter and she states that the daughter had recently moved. She is trying to move in with her dad. She also states she did have her primary however primary recently left. She does wish to be a full code. All code status is were reviewed with the patient including DNR, DNI current pressors, BiPAP and CPAP. Patient wishes to be a full code at that time. She also likes her friend Franko to be her surrogate. Smoking packs per day: 0.5 Smoking cigarettes per day: 10.0 Years smoked: 15 Smoking pack-years: 7.50 Smoking status: Former smoker Tobacco type: cigarettes Smoking end date: 10/01/23 Alcohol intake: current Drinks per week: 2 Substance use: never Do You Feel Safe in your Home?: Yes Lack of Transportation: No Lack of Food: Never True Current Housing: I Have Housing Concerned About Future Housing: No Difficulty Paying Gas/Electric Bills: No Difficulty Paying for Meds: No Currently Unemployed: No Education: Associate Degree Difficulty w/ Childcare or Family Care: No Living arrangements: with family Occupation/Education: other Additional occupation/education comments: disability Gender identity (if verbalized by the patient): Female Sexual Orientation (if Verbalized by the Patient): Straight or Heterosexual Spiritual care concerns: No Agree to blood products: Yes Same Day Admit/Disch: Med Pre-admit Medications Home Medications Medication Instructions Recorded Confirmed Type metronidazole 500 mg tablet 500 mg PO Q12H 7 days #14 tabs 06/24/23 10/22/23 Rx levothyroxine 200 mcg tablet 200 mcg PO DAILY 06/27/23 10/22/23 History furosemide 40 mg tablet 40 mg PO BID #60 tabs 07/14/23 10/22/23 Rx levofloxacin 750 mg tablet 750 mg P
[2023-10-22] MEDS: ALBUMIN HUMAN 25% 25 GM/100 ML 100 ML IVPB ×2 (15:09→19:50)
[2023-10-22] MEDS: POTASSIUM CHLORIDE 20 MEQ ER TABLET 40 MEQ PO (16:19)
--- NOTE | 2023-10-22 18:09 | PC.NURSE ---
Patient c/o dizziness while walking around in the room. Bp 97/50. Holland Ibarra NP notified.
[2023-10-23] VITALS: PULSE 77
[2023-10-23 04:00] VITALS: BP 100/55; PULSE 80; PULSE 90; RESP 18; TEMP 37.1; O2SAT 95
[2023-10-23] MEDS: LEVOTHYROXINE SODIUM 100 MCG TABLET 200 MCG PO (05:13)
[2023-10-23] MEDS: HYDROcodone/acetaminophen (*CRX) 5-325 MG TABLET 1 TAB PO (05:28)
--- NOTE | 2023-10-23 07:05 | PM.IMHP ---
H&P: HPI History of Present Illness Date/Time: 10/22/23 09:05 Chief Complaint: Abdominal pain Narrative: Nasreen Orozco is a 53 year old female who presented the ED with complaints of shortness of breath with abdominal pain. Patient was recently at [facility] and just discharged about 7 days ago. At that time she did have a paracentesis done as well. She did state that when her ascites gets really bad that it pushes up to her chest and it is hard for breathe and causes her to have chest pain. He she also states that it really does help when she lays on her side. She has also been eating differently and having nausea. She said all this started yesterday and also stated that she was not able to do anything at home to help herself. She does have an appointment coming up with a liver specialist at [facility]. She is also concerned about her renal function states she never really goes the bathroom. Labs and vital signs appear stable at this time. Patient did have a thoracentesis done here which did take off 5 L. currently she denies any vomiting, diarrhea, fevers, sweats, chills, lightheadedness, dizziness. She did state she was having little chest pain little shortness of breath. Currently patient is being admitted to the hospitalist service under observation. Patient will require less than 2 midnights for workup, treatment and recovery. 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 She has 1 child at the daughter and she states that the daughter had recently moved. She is trying to move in with her dad. She also states she did have her primary however primary recently left. She does wish to be a full code. All code status is were reviewed with the patient including DNR, DNI current pressors, BiPAP and CPAP. Patient wishes to be a full code at that time. She also likes her friend Franko to be her surrogate. Smoking packs per day: 0.5 Smoking cigarettes per day: 10.0 Years smoked: 15 Smoking pack-years: 7.50 Smoking status: Former smoker Tobacco type: cigarettes Smoking end date: 10/01/23 Alcohol intake: current Drinks per week: 2 Substance use: never Do You Feel Safe in your Home?: Yes Lack of Transportation: No Lack of Food: Never True Current Housing: I Have Housing Concerned About Future Housing: No Difficulty Paying Gas/Electric Bills: No Difficulty Paying for Meds: No Currently Unemployed: No Education: Associate Degree Difficulty w/ Childcare or Family Care: No Living arrangements: with family Occupation/Education: other Additional occupation/education comments: disability Gender identity (if verbalized by the patient): Female Sexual Orientation (if Verbalized by the Patient): Straight or Heterosexual Spiritual care concerns: No Agree to blood products: Yes Meds Home Medications and Allergies Home Medications Medication Instructions Recorded Confirmed Type levothyroxine 200 mcg tablet 200 mcg PO DAILY 06/27/23 10/22/23 History
--- NOTE | 2023-10-23 07:32 | PM.DS ---
DS: Admitting Diagnosis Discharge Date 10/23/2023 0730 Admitting Diagnosis Acute abdominal ascities DS: Discharge Diagnosis Discharge Diagnosis (1) Alcohol use: Code(s): Z78.9 - Other specified health status Status: Acute Assessment and Plan: Patient is a drinking she states she is drinking 1 drink a week Cessation education given patient did verbalize understanding Has an upcoming appointment with GI liver specialist (2) Cirrhosis of liver: Code(s): K74.60 - Unspecified cirrhosis of liver Status: Acute Assessment and Plan: Labs appear to be stable Severe abdominal ascites noted per CT Paracentesis ordered Labs stable Continue Henriette for pain control Liver specialist appointment made (3) Abdominal ascites: Code(s): R18.8 - Other ascites Status: Acute Assessment and Plan: Paracentesis is performed 5 L taken off 100 mL of albumin given (4) Acute hypotension: Code(s): I95.9 - Hypotension, unspecified Status: Acute Assessment and Plan: Post procedure BP was noted to be low at 93/50 Albumin 100 ml given x 2 BP uptrending 101/49 Continue to trend BP Most likely related to the paracentesis DS: Summary Hospital Course Hospital Course: Nasreen Orozco is a 53 year old female who presented the ED with complaints of shortness of breath with abdominal pain. Patient was recently at [facility] and just discharged about 7 days ago. At that time she did have a paracentesis done as well. She did state that when her ascites gets really bad that it pushes up to her chest and it is hard for breathe and causes her to have chest pain. He she also states that it really does help when she lays on her side. She has also been eating differently and having nausea. She said all this started yesterday and also stated that she was not able to do anything at home to help herself. She does have an appointment coming up with a liver specialist at [facility]. She is also concerned about her renal function states she never really goes the bathroom. Labs and vital signs appear stable at this time. Patient did have a thoracentesis done here which did take off 5 L. currently she denies any vomiting, diarrhea, fevers, sweats, chills, lightheadedness, dizziness. She did state she was having little chest pain little shortness of breath. Patient underwent a paracentesis and the patient did okay. Patient has 5 L drained off. Patient was having some dizziness along with hypotension. Currently patient is doing well and was given albumin for fluid resuscitation. Patient stable for discharge for labs and vital signs. Status at Discharge Functional status at discharge: independent ambulation Overall status at discharge: patient is progressing back to baseline Time Spent with Patient Time attestation: Total time spent providing and/or coordinating discharge services: 42 minutes Time spent: Greater than 30 minutes Specific discharge activities: Diagnostic testing, chart review, developing a treatment plan, education, care coordination documentation, physical exam, result review Exam Narrative: General: well-nourished, well-appearing 53-year-old female, sitting up in bed, comfortable, NARD Neuro: awake, alert and oriented x4, speech clear, no focal neuro deficits noted HEENMT: normocephalic, atraumatic, EOMI, sclerae anicteric, moist oral mucosa Respiratory: Clear to auscultation bilaterally without crackles, rhonchi or wheezes, nonlabored breathing Cardio: regular rate, regular rhythm with S1-S2 Abdomen: moderately distended, normoactive bowel sounds, soft, nontender to palpation Extremities: no edema, erythema, or tenderness to palpation, DP pulses 2+ bilaterally Skin: no rashes or lesions, warm and dry Psych: appropriate mood and affect, judgment and insight intact DS: Data Data Completed and Pending Labs on day of dis
[2023-10-23 08:00] VITALS: PULSE 83
[2023-10-23 08:26] VITALS: BP 108/58; PULSE 90; RESP 18; TEMP 36.6; O2SAT 92
[2023-10-23] MEDS: PANTOPRAZOLE 40 MG TABLET PO (09:06)
[2023-10-23] MEDS: polyethylene glycoL 3350 17 GM POWD.PACK PO (09:06)
[2023-10-23] MEDS: ALBUMIN HUMAN 25% 25 GM/100 ML 100 ML IVPB (09:06)
[2023-10-23] MEDS: FUROSEMIDE 40 MG TABLET PO (09:06)
[2023-10-23] MEDS: ENOXAPARIN 40 MG/0.4 ML SYRINGE SUB-Q (09:07)
[2023-10-23 11:37] VITALS: BP 110/58
[2023-10-23 12:00] VITALS: PULSE 88
== END 2023-10-23 14:15 | disposition home or self-care (01) ==
LOC: ANHED 10-22 04:23 → ANH3MEDSUR 10-22 15:26
PROVIDERS: Nurse Practitioner; Student in an Organized Health Care Education/Training Program; Admitting Provider Internal Medicine; Emergency Provider Emergency Medicine; Visit Provider Internal Medicine
DX: R18.8 Other ascites (principal); K74.60 Unspecified cirrhosis of liver; K75.81 Nonalcoholic steatohepatitis (NASH); I95.9 Hypotension, unspecified; K76.6 Portal hypertension; E03.9 Hypothyroidism, unspecified; F17.210 Nicotine dependence, cigarettes, uncomplicated; F10.90 Alcohol use, unspecified, uncomplicated
CPT/HCPCS: 36415; 49083; 71046; 74177; 80053; 83690; 84484; 85025; 85055; 85610; 85730; 93005; 96365; 96372; 96375; 96376; 99285; A9270; G0378; J0696; J1170; J1650; J2270; P9047; Q9967

== ENCOUNTER 2023-12-04 23:48 | Emergency (ER) | payer BC, SELFPAY ==
--- NOTE | ~2023-12-04 | XR_ITS ---
Clinical Indication: Dizziness, weakness PA and lateral views of the chest: Comparison: 10/21/2023 Findings: The lungs are clear, without evidence of focal consolidation or pleural effusion. Cardiome diastinal silhouette is within normal limits. Bones and soft tissues are unremarkable. Impression: Normal chest. Reviewed, dictated and finalized at [facility]. Impression: Normal chest.
[2023-12-04 23:52] VITALS: BP 128/61; PULSE 84; RESP 17; TEMP 36.8; O2SAT 94
--- NOTE | 2023-12-05 00:03 | ECG_ITS ---
Test Date: 2023-12-05 00:09:26 Measurements Intervals [place] Rate: 81 P: 28 [place]: 165 QRS: -50 QRSD: 109 T: 46 QT: 395 QTc: 459 Interpretive Statements SINUS RHYTHM INCOMPLETE RIGHT BUNDLE BRANCH BLOCK LEFT ANTERIOR FASCICULAR BLOCK VOLTAGE CRITERIA FOR LVH MINIMAL Q WAVES- HIGH LATERAL LEADS ABNORMAL ECG Compared to ECG 10/22/2023 01:19:10 Incomplete right bundle-branch block now present Electronically Signed On 12-05-2023 06:51:31 CDT by Glen Woodruff D.O.
[2023-12-05 00:34] LABS: Basophils Percent Auto 0.6 % (0.2-1.2); Eosinophils Absolute Auto 0.3 K/mm3 (0-0.3); Eosinophils Percent Auto 4.8 % (0-4.4); Hemoglobin 9.7 g/dL (12.0-15.0); Immature Granulocyte Absolute 0.02 K/mm3 (0.00-0.031); Immature Granulocyte Percent A 0.3 % (0-0.5); Lymphocytes Absolute Auto 1.85 K/mm3 (0.9-3.2); Lymphocytes Percent Auto 29.9 % (18.3-44.2); Mean Corpuscular HGB Conc 31.3 g/dl (32-36); Mean Corpuscular Hemoglobin 32.3 pg (26-34); Mean Corpuscular Volume 103.3 fl (80-100); Mean Platelet Volume 9.9 fl (7.4-10.4); Monocytes Percent Auto 15.8 % (2.6-8.5); Neutrophils Percent Auto 48.6 % (45.5-73.1); Platelet Count Result 102 k/mm3 (150-375); Red Cell Distribution Width 23.9 % (11.5-14.5); White Blood Count 6.2 K/mm3 (4.5-10.0)
[2023-12-05 00:45] LABS: Alanine Aminotransferase 21 U/L (6-35); Albumin Level 3.3 g/dL (3.5-5.1); Alkaline Phosphatase 102 U/L (38-126); Anion Gap 12 mmol/L (4-12); Aspartate Amino Transferase 43 U/L (14-36); Bilirubin,Total 8.1 mg/dL (0.2-1.3); Blood Urea Nitrogen 14 mg/dL (7-17); Calcium 8.9 mg/dL (8.4-10.2); Carbon Dioxide 21 mmol/L (22-30); Chloride 102 mmol/L (98-107); Estimated CRCL calculation 106 ml/min; Estimated Glomerular Filt Rate > 60; Glucose 112 mg/dL (65-110); Potassium 3.8 mmol/L (3.4-5.0); Sodium 135 mmol/L (137-145)
[2023-12-05 00:53] LABS: Anisocytosis 1+; Platelet Estimate Decreased (Adequate); Schistocytes None Seen
--- NOTE | 2023-12-05 01:31 | ED.GENADULT ---
HPI - General Adult General Chief complaint: Dizziness Stated complaint: dizzy and warm Time Seen by Provider: 12/05/23 01:11 History of Present Illness HPI narrative: 53-year-old female with history of cirrhosis presents emergency department for evaluation for increased dizziness today. Patient denies any chest pain or shortness of breath. Patient denies any associated nausea vomiting or diarrhea. Patient states he has been eating and drinking well. Patient does have follow-up with her liver specialist at [facility]. Patient states she did recently have her ascites drained denies any abdominal distension. Related Data Home Medications Medication Instructions Recorded Confirmed levothyroxine 200 mcg tablet 200 mcg PO DAILY 06/27/23 10/22/23 Allergies Allergy/AdvReac Type Severity Reaction Status Date / Time spironolactone Allergy Intermediate Hives Verified 12/11/23 19:06 amoxicillin Allergy Hives Verified 12/11/23 19:06 latex Allergy Rash Verified 12/11/23 19:06 Penicillins Allergy Hives Verified 12/11/23 19:06 Review of Systems Review of Systems: All systems reviewed & are unremarkable except as noted in HPI and below PMFSH Past Medical History Medical History Alcohol use TAB positive Colon cancer screening Decompensation of cirrhosis of liver Elevated liver enzymes Hypothyroidism 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 She has 1 child at the daughter and she states that the daughter had recently moved. She is trying to move in with her dad. She also states she did have her primary however primary recently left. She does wish to be a full code. All code status is were reviewed with the patient including DNR, DNI current pressors, BiPAP and CPAP. Patient wishes to be a full code at that time. She also likes her friend Franko to be her surrogate. Smoking packs per day: 0.5 Smoking cigarettes per day: 10.0 Years smoked: 15 Smoking pack-years: 7.50 Smoking status: Former smoker Tobacco type: cigarettes Smoking end date: 10/01/23 Alcohol intake: current Drinks per week: 2 Substance use: never Do You Feel Safe in your Home?: Yes Lack of Transportation: No Lack of Food: Never True Current Housing: I Have Housing Concerned About Future Housing: No Difficulty Paying Gas/Electric Bills: No Difficulty Paying for Meds: No Currently Unemployed: No Education: Associate Degree Difficulty w/ Childcare or Family Care: No Living arrangements: with family Occupation/Education: other Additional occupation/education comments: disability Gender identity (if verbalized by the patient): Female Sexual Orientation (if Verbalized by the Patient): Straight or Heterosexual Spiritual care concerns: No Agree to blood products: Yes Exam Narrative: APPEARANCE: Well appearing, no pain, no distress, well-nourished. HEAD: normocephalic, atraumatic. EYES: PERRLA/EOMI, conjunctivae clear. NOSE: Normal no drainage EARS:TMS clear with good light reflex. THROAT: Pharynx clear, no exudate. NECK: Supple. No adenopathy, no masses. RESPIRATORY: Airway patent, respirations nonlabored. Clear to auscultation bilaterally, no rales, rhonchi, wheezing. CARDIOVASCULAR: Regular rate and rhythm without murmurs rubs or gallops. ABDOMINAL: Soft, nontender, nondi
[2023-12-05] MEDS: SODIUM CHLORIDE 0.9% IV 500 ML 999 ML IV CONT (01:36)
[2023-12-05 02:00] VITALS: BP 130/87; PULSE 79; RESP 17; O2SAT 96
[2023-12-05 02:52] LABS: Bacteria Urine Rare /hpf; Budding Yeast Urine Present /hpf; Hyaline Casts Urine Present /lpf; Need Manual Microscopic Reviewed; Squamous Epithelial Cell Urine Many /hpf (Few); WBC Urine >100 /hpf (0-3)
[2023-12-05 02:53] LABS: Add Urine Microscopic? YES; Appearance Urine Cloudy (Clear); Bilirubin Urine 2+ (Negative); Blood Urine 2+ (Negative); Color Urine Orange (Yellow); Glucose Urine UA Negative (Negative); Ketones Urine Negative (Negative); Leukocyte Esterase Ur 3+ LEU/UL (Negative); Nitrate Urine Positive (Negative); Protein Urine 1+ mg/dL (Negative); Specific Grav Ur 1.033 (1.001-1.035); pH Urine 5.5 (5.0-9.0)
[2023-12-05] MEDS: levoFLOXacin 750 MG/D5W 150 ML 750 MG/150 ML BAG 100 MG IVPB (03:06)
[2023-12-05 04:44] VITALS: BP 119/62; PULSE 80; RESP 17; TEMP 36.7; O2SAT 95
== END 2023-12-05 04:46 | disposition home or self-care (01) ==
PROVIDERS: Emergency Provider Emergency Medicine; PCP Family Medicine
DX: N39.0 Urinary tract infection, site not specified (principal); E03.9 Hypothyroidism, unspecified; K74.60 Unspecified cirrhosis of liver; K75.81 Nonalcoholic steatohepatitis (NASH); D69.6 Thrombocytopenia, unspecified; Z87.891 Personal history of nicotine dependence; I45.2 Bifascicular block
CPT/HCPCS: 36415; 71046; 80053; 81001; 85025; 87077; 87086; 87088; 87181; 93005; 96361; 96365; 96366; 99284; J1956; J7040

== ENCOUNTER 2023-12-07 22:15 | Emergency (ER) | payer BC, SELFPAY ==
--- NOTE | ~2023-12-07 | XR_ITS ---
Portable chest x-ray Comparison: 12/05/2023 Clinical History: Dyspnea Findings: Possible minimal bibasilar haziness. No pleural effusion or pneumothorax. Cardiomediastin al silhouette is stable. Bones and soft tissues are unremarkable. Impression: Questionable minimal developing bibasilar pulmonary edema or infection. Reviewed, dictated and finalized at [facility]. Impression: Questionable minimal developing bibasilar pulmonary edema or infection.
[2023-12-07 22:18] VITALS: BP 134/62; PULSE 97; RESP 23; TEMP 36.1; O2SAT 97
--- NOTE | 2023-12-07 22:57 | ECG_ITS ---
Test Date: 2023-12-07 23:15:20 Measurements Intervals [place] Rate: 88 P: 54 [place]: 166 QRS: -52 QRSD: 122 T: 61 QT: 407 QTc: 493 Interpretive Statements SINUS RHYTHM LEFT ANTERIOR FASCICULAR BLOCK ABNORMAL ECG Compared to ECG 12/05/2023 00:09:26 NO SIGNIFICANT CHANGE Electronically Signed On 12-08-2023 06:28:42 CDT by Glen Woodruff D.O.
[2023-12-07] MEDS: FUROSEMIDE INJ 40 MG/4 ML VIAL IV PUSH (23:09)
[2023-12-07 23:26] LABS: Basophils Percent Auto 0.8 % (0.2-1.2); Eosinophils Absolute Auto 0.2 K/mm3 (0-0.3); Eosinophils Percent Auto 3.2 % (0-4.4); Hematocrit 28.8 % (37.0-47.0); Hemoglobin 9.1 g/dL (12.0-15.0); Immature Granulocyte Absolute 0.02 K/mm3 (0.00-0.031); Immature Granulocyte Percent A 0.4 % (0-0.5); Lymphocytes Absolute Auto 1.14 K/mm3 (0.9-3.2); Lymphocytes Percent Auto 22.7 % (18.3-44.2); Mean Corpuscular HGB Conc 31.6 g/dl (32-36); Mean Corpuscular Volume 104.3 fl (80-100); Mean Platelet Volume 10.2 fl (7.4-10.4); Monocytes Absolute Auto 0.9 K/mm3 (0.1-0.6); Monocytes Percent Auto 17.3 % (2.6-8.5); Neutrophils Absolute Auto 2.8 K/mm3 (1.3-6.7); Neutrophils Percent Auto 55.6 % (45.5-73.1); Platelet Count Result 95 k/mm3 (150-375); Red Blood Count 2.76 M/mm3 (4.2-5.4); Red Cell Distribution Width 23.9 % (11.5-14.5)
[2023-12-07 23:28] LABS: Alanine Aminotransferase 20 U/L (6-35); Alkaline Phosphatase 140 U/L (38-126); Anion Gap 9 mmol/L (4-12); Aspartate Amino Transferase 37 U/L (14-36); Bilirubin,Total 7.4 mg/dL (0.2-1.3); Blood Urea Nitrogen 9 mg/dL (7-17); Calcium 8.5 mg/dL (8.4-10.2); Carbon Dioxide 20 mmol/L (22-30); Chloride 103 mmol/L (98-107); Estimated CRCL calculation 92 ml/min; Estimated Glomerular Filt Rate > 60; Glucose 120 mg/dL (65-110); Magnesium 1.7 mg/dL (1.6-2.3); Potassium 3.8 mmol/L (3.4-5.0); Sodium 132 mmol/L (137-145)
[2023-12-07 23:36] LABS: NT Pro B Type Natriuretic Pept 140 pg/mL (19.9-100)
--- NOTE | 2023-12-07 23:41 | ED.GENADULT ---
HPI - General Adult General Chief complaint: Shortness of Breath/Dyspnea Stated complaint: ankle swelling, SOB Time Seen by Provider: 12/07/23 22:56 History of Present Illness HPI narrative: Patient presents with SOB, increased ankle swelling, under last week, she has tried to go to the pharmacy to slat [place] prescriptions that she was given from her recent admission here however she states that they weren't there. States she has not had alcohol in a while. Related Data Home Medications Medication Instructions Recorded Confirmed levothyroxine 200 mcg tablet 200 mcg PO DAILY 06/27/23 10/22/23 Allergies Allergy/AdvReac Type Severity Reaction Status Date / Time spironolactone Allergy Intermediate Hives Verified 12/07/23 22:20 amoxicillin Allergy Hives Verified 12/07/23 22:20 latex Allergy Rash Verified 12/07/23 22:20 Penicillins Allergy Hives Verified 12/07/23 22:20 [facility] Past Medical History Medical History Alcohol use TAB positive Colon cancer screening Decompensation of cirrhosis of liver Elevated liver enzymes Hypothyroidism 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 She has 1 child at the daughter and she states that the daughter had recently moved. She is trying to move in with her dad. She also states she did have her primary however primary recently left. She does wish to be a full code. All code status is were reviewed with the patient including DNR, DNI current pressors, BiPAP and CPAP. Patient wishes to be a full code at that time. She also likes her friend Franko to be her surrogate. Smoking packs per day: 0.5 Smoking cigarettes per day: 10.0 Years smoked: 15 Smoking pack-years: 7.50 Smoking status: Former smoker Tobacco type: cigarettes Smoking end date: 10/01/23 Alcohol intake: current Drinks per week: 2 Substance use: never Do You Feel Safe in your Home?: Yes Lack of Transportation: No Lack of Food: Never True Current Housing: I Have Housing Concerned About Future Housing: No Difficulty Paying Gas/Electric Bills: No Difficulty Paying for Meds: No Currently Unemployed: No Education: Associate Degree Difficulty w/ Childcare or Family Care: No Living arrangements: with family Occupation/Education: other Additional occupation/education comments: disability Gender identity (if verbalized by the patient): Female Sexual Orientation (if Verbalized by the Patient): Straight or Heterosexual Spiritual care concerns: No Agree to blood products: Yes Exam Narrative: EXAMINATION OF ORGAN SYSTEMS/BODY AREAS: Constitutional: Vital signs per nursing GENERAL:[No acute distress, non-toxic appearing.] HEAD: Normal with no signs of head trauma. EYES: Scleral icterus ENT: Hearing grossly intact LUNGS: Nonlabored breathing. HEART: [Regular rate and rhythm] ABD: Abdominal ascites without tenderness EXT: Normal range of motion, bilateral lower extremity edema SKIN: excoriated rash to face NEURO: [Alert and oriented x 3. No gross focal sensory or strength deficits.] PSYCH: Normal affect Course Vital Signs Vital signs: Vital Signs Temperature 97.0 F L 12/07/23 22:18 Pulse Rate 97 12/07/23 22:18 Respiratory Rate 23 H 12/07/23 22:18 Blood Pressure 134/62 12/07/23 22:18 Pulse Oximetry 97 12/07/23 22:18 Oxygen Delivery Ro
[2023-12-07 23:50] LABS: Anisocytosis 1+; Burr Cells 1+; Large Platelets Present; Microcytosis 1+ (NORMAL); Platelet Estimate Decreased (Adequate); Schistocytes Rare
[2023-12-08 01:30] VITALS: BP 121/65; PULSE 94; RESP 20; O2SAT 96
== END 2023-12-08 01:49 | disposition home or self-care (01) ==
PROVIDERS: Emergency Provider Emergency Medicine
DX: K74.60 Unspecified cirrhosis of liver (principal); E87.70 Fluid overload, unspecified; E03.9 Hypothyroidism, unspecified; Z87.891 Personal history of nicotine dependence
CPT/HCPCS: 36415; 71045; 80053; 83735; 83880; 85025; 85055; 93005; 96374; 99284; J1940

== ENCOUNTER 2023-12-11 19:00 | Emergency (ER) | payer BC, SELFPAY ==
--- NOTE | ~2023-12-11 | CT_ITS ---
Non-contrast Head CT History: Dizziness Technique: Axial non-contrast imaging of the brain was performed. Dose reduction technique was used on this scan by utilizing automated exposure control and iterative reconstruction technique. The dose -length product (DLP) was 681.00 mGy-cm. Findings: There is no evidence of intracranial hemorrhage, mass lesion, or acute infarct. Brain par enchyma appears normal. The ventricles and subarachnoid spaces are normal in size. The calvarium ap pears normal. The visualized paranasal sinuses and mastoid air cells are clear. Impression: No significant abnormality seen. Reviewed, dictated and finalized at location . Impression: No significant abnormality seen.
[2023-12-11 19:02] VITALS: BP 122/64; PULSE 100; RESP 15; TEMP 36.7; O2SAT 96
--- NOTE | 2023-12-12 03:27 | ECG_ITS ---
Test Date: 2023-12-12 04:28:22 Measurements Intervals [place] Rate: 75 P: 37 [place]: 185 QRS: -51 QRSD: 118 T: 53 QT: 457 QTc: 513 Interpretive Statements SINUS RHYTHM WITH SINUS ARRHYTHMIA LEFT ANTERIOR FASCICULAR BLOCK ABNORMAL ECG Compared to ECG 12/07/2023 23:15:20 NO SIGNIFICANT CHANGE Electronically Signed On 12-12-2023 06:49:55 CDT by Glen Woodruff D.O.
[2023-12-12 04:28] LABS: Basophils Absolute Auto 0.1 K/mm3 (0.0-0.1); Eosinophils Absolute Auto 0.1 K/mm3 (0-0.3); Eosinophils Percent Auto 2.6 % (0-4.4); Hematocrit 29.9 % (37.0-47.0); Hemoglobin 9.4 g/dL (12.0-15.0); Immature Granulocyte Absolute 0.02 K/mm3 (0.00-0.031); Immature Granulocyte Percent A 0.4 % (0-0.5); Immature Platelet Fraction Pct 1.5 % (0.9-11.2); Lymphocytes Absolute Auto 1.47 K/mm3 (0.9-3.2); Lymphocytes Percent Auto 28.9 % (18.3-44.2); Mean Corpuscular HGB Conc 31.4 g/dl (32-36); Mean Corpuscular Hemoglobin 32.5 pg (26-34); Mean Corpuscular Volume 103.5 fl (80-100); Mean Platelet Volume 9.6 fl (7.4-10.4); Monocytes Absolute Auto 0.7 K/mm3 (0.1-0.6); Monocytes Percent Auto 13.9 % (2.6-8.5); Neutrophils Absolute Auto 2.7 K/mm3 (1.3-6.7); Neutrophils Percent Auto 53.2 % (45.5-73.1); Platelet Count Result 95 k/mm3 (150-375); Red Blood Count 2.89 M/mm3 (4.2-5.4); White Blood Count 5.1 K/mm3 (4.5-10.0)
[2023-12-12 04:36] LABS: Ammonia < 9 umol/L (9-30)
[2023-12-12 04:37] LABS: Alanine Aminotransferase 19 U/L (6-35); Albumin Level 2.9 g/dL (3.5-5.1); Alkaline Phosphatase 135 U/L (38-126); Anion Gap 10 mmol/L (4-12); Aspartate Amino Transferase 38 U/L (14-36); Bilirubin,Total 8.1 mg/dL (0.2-1.3); Blood Urea Nitrogen 11 mg/dL (7-17); Calcium 8.4 mg/dL (8.4-10.2); Carbon Dioxide 21 mmol/L (22-30); Chloride 102 mmol/L (98-107); Estimated CRCL calculation 110 ml/min; Estimated Glomerular Filt Rate > 60; Glucose 93 mg/dL (65-110); Lipase 187 U/L (23-300); Magnesium 1.8 mg/dL (1.6-2.3); Potassium 3.4 mmol/L (3.4-5.0); Sodium 133 mmol/L (137-145)
[2023-12-12 04:38] LABS: INR 1.9; Lactic Acid Reflex 1.9 mmol/L (0.7-2.0); Prothrombin Time 22.5 Seconds (11.1-14.7)
[2023-12-12 04:39] LABS: Partial Thromboplastin Time 39.1 Seconds (22.3-36.8)
[2023-12-12 04:48] LABS: Troponin I < 0.012 ng/mL (0.000-0.034)
[2023-12-12 05:01] LABS: Anisocytosis 1+; Ovalocytes 1+; Platelet Estimate Decreased (Adequate)
[2023-12-12 05:02] LABS: Poikilocytosis 1+; Schistocytes None Seen
--- NOTE | 2023-12-12 05:35 | ED.GENADULT ---
HPI - General Adult General Chief complaint: Dizziness Stated complaint: dizzy, fever Time Seen by Provider: 12/12/23 03:18 History of Present Illness HPI narrative: patient is a 53-year-old female who presents emergency department with chief complaint of dizziness patient reports that she has been diagnosed with cirrhosis and reports that she has had feeling of dizziness the patient also reports that she has had a fever at home patient reports that she has yellowing of her eyes that she thinks is a little bit worse than what it has been patient is not followed up yet with hepatology Related Data Home Medications Medication Instructions Recorded Confirmed levothyroxine 200 mcg tablet 200 mcg PO DAILY 06/27/23 10/22/23 Allergies Allergy/AdvReac Type Severity Reaction Status Date / Time spironolactone Allergy Intermediate Hives Verified 12/11/23 19:06 amoxicillin Allergy Hives Verified 12/11/23 19:06 latex Allergy Rash Verified 12/11/23 19:06 Penicillins Allergy Hives Verified 12/11/23 19:06 Review of Systems Review of Systems: A 10 system review of systems was completed on the patient and is negative except for what is stated in the HPI. Nursing and ancillary documentation was reviewed. 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 She has 1 child at the daughter and she states that the daughter had recently moved. She is trying to move in with her dad. She also states she did have her primary however primary recently left. She does wish to be a full code. All code status is were reviewed with the patient including DNR, DNI current pressors, BiPAP and CPAP. Patient wishes to be a full code at that time. She also likes her friend Franko to be her surrogate. Smoking packs per day: 0.5 Smoking cigarettes per day: 10.0 Years smoked: 15 Smoking pack-years: 7.50 Smoking status: Former smoker Tobacco type: cigarettes Smoking end date: 10/01/23 Alcohol intake: current Drinks per week: 2 Substance use: never Do You Feel Safe in your Home?: Yes Lack of Transportation: No Lack of Food: Never True Current Housing: I Have Housing Concerned About Future Housing: No Difficulty Paying Gas/Electric Bills: No Difficulty Paying for Meds: No Currently Unemployed: No Education: Associate Degree Difficulty w/ Childcare or Family Care: No Living arrangements: with family Occupation/Education: other Additional occupation/education comments: disability Gender identity (if verbalized by the patient): Female Sexual Orientation (if Verbalized by the Patient): Straight or Heterosexual Spiritual care concerns: No Agree to blood products: Yes Exam Narrative: GENERAL: Well-appearing, well-nourished, and in no acute distress. HEAD: Normocephalic, atraumatic. EYES: PERRLA and EOMI. scleral icterus present ENT: Nares clear, no rhinorrhea or epistaxis. Mucous membranes moist. NECK: Supple. CHEST: Clear to auscultation. No respiratory distress. HEART: Regular rate and rhythm. No murmur heard. Normal peripheral pulses. ABDOMEN: Soft, nontender, nondistended, normal active kenia
[2023-12-12 05:41] VITALS: BP 110/58; PULSE 76; RESP 15; O2SAT 96
[2023-12-12 06:51] VITALS: BP 122/84; PULSE 77; RESP 16; O2SAT 97
== END 2023-12-12 06:52 | disposition home or self-care (01) ==
PROVIDERS: Emergency Provider Emergency Medicine; PCP Internal Medicine
DX: K74.60 Unspecified cirrhosis of liver (principal); E03.9 Hypothyroidism, unspecified; Z87.891 Personal history of nicotine dependence
CPT/HCPCS: 36415; 70450; 80053; 82140; 83605; 83690; 83735; 84484; 85025; 85055; 85610; 85730; 93005; 99284

== ENCOUNTER 2023-12-17 19:01 | Emergency (ER) | payer BC, SELFPAY ==
--- NOTE | ~2023-12-17 | XR_ITS ---
XR chest 2V Ordering provider: Nelson Lowe MD History: 53 years Female with . SOB . Comparison: December 08, 2023 FINDINGS: MEDIASTINUM: The cardiac silhouette is not enlarged. LUNGS: No infiltrates, effusions or pneumothorax. OTHER: No free air under the diaphragm. Degenerative changes of the spine. IMPRESSION: No acute cardiopulmonary pathology. Reviewed, dictated and finalized at location A.
--- NOTE | ~2023-12-17 | CT_ITS ---
CTA chest PE protocol Ordering provider: Nelson Lowe MD History: 53 years Female with . ddimer, SOB . Comparison: None. Technique: CT angiogram chest was performed following timed intravenous injection of contrast. Thin s lice axial images and reformatted coronal images were obtained. Three dimensional reformatted images of the chest were also obtained using a [employer] workstation. . Automated exposure control and iterati ve reconstruction technique were employed. The dose-length product was 438.63 mGy-cm. 100 mL Omnipaqu e 350 was given IV. Findings: PULMONARY ARTERIES: No pulmonary embolus. VISUALIZED THORACIC INLET: Normal. MEDIASTINUM: Aorta/coronary arteries: The thoracic aorta is normal. Heart/other: The heart is not enlarged. Lymph nodes: No mediastinal or hilar adenopathy. LUNGS: No pulmonary nodules or masses. No infiltrates or effusions. No pneumothorax. VISUALIZED UPPER ABDOMEN: Gross ascites with liver cirrhosis. Splenomegaly. Otherwise, the visualized upper abdomen is normal. MUSCULOSKELETAL: Soft tissues: The superficial soft tissues are normal. Bones: Age appropriate degenerative changes of the spine. IMPRESSION: 1. No pulmonary embolism. 2. No acute cardiopulmonary pathology. 3. Gross ascites. 4. Liver cirrhosis with splenomegaly. Reviewed, dictated and finalized at location A.
[2023-12-17 19:05] VITALS: BP 112/70; PULSE 103; RESP 18; TEMP 36.8; O2SAT 92
--- NOTE | 2023-12-17 19:11 | ECG_ITS ---
Test Date: 2023-12-17 19:17:01 Measurements Intervals [place] Rate: 96 P: 29 OR: 175 QRS: -53 QRSD: 115 T: 60 QT: 368 QTc: 465 Interpretive Statements SINUS RHYTHM LEFT ANTERIOR FASCICULAR BLOCK BASELINE ARTIFACT- I, II, AVR, AVL, AVF ABNORMAL ECG Compared to ECG 12/12/2023 04:28:22 NO SIGNIFICANT CHANGE Electronically Signed On 12-18-2023 05:44:25 CDT by Glen Woodruff D.O.
--- NOTE | 2023-12-17 19:26 | ED.GENADULT ---
HPI - General Adult General Chief complaint: Shortness of Breath/Dyspnea Stated complaint: DYSPNEA Time Seen by Provider: 12/17/23 19:12 History of Present Illness HPI narrative: 53-year-old female presenting to the emergency department for evaluation for dizziness and shortness of breath. Patient does have history end-stage liver disease and does have frequent paracentesis. Patient reports she had paracentesis yesterday and since then has had increased lightheaded and dizziness. Patient states she has also had some intermittent shortness of breath. Current chest pain. Patient denies any associated nausea vomiting or diarrhea. Patient is well-appearing at time of evaluation. Related Data Home Medications Medication Instructions Recorded Confirmed levothyroxine 200 mcg tablet 200 mcg PO DAILY 06/27/23 10/22/23 Allergies Allergy/AdvReac Type Severity Reaction Status Date / Time spironolactone Allergy Intermediate Hives Verified 12/11/23 19:06 amoxicillin Allergy Hives Verified 12/11/23 19:06 latex Allergy Rash Verified 12/11/23 19:06 Penicillins Allergy Hives Verified 12/11/23 19:06 Review of Systems Review of Systems: All systems reviewed & are unremarkable except as noted in HPI and below PMFSH Past Medical History Medical History Alcohol use TAB positive Colon cancer screening Decompensation of cirrhosis of liver Elevated liver enzymes Hypothyroidism 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 She has 1 child at the daughter and she states that the daughter had recently moved. She is trying to move in with her dad. She also states she did have her primary however primary recently left. She does wish to be a full code. All code status is were reviewed with the patient including DNR, DNI current pressors, BiPAP and CPAP. Patient wishes to be a full code at that time. She also likes her friend Franko to be her surrogate. Smoking packs per day: 0.5 Smoking cigarettes per day: 10.0 Years smoked: 15 Smoking pack-years: 7.50 Smoking status: Former smoker Tobacco type: cigarettes Smoking end date: 10/01/23 Alcohol intake: current Drinks per week: 2 Substance use: never Do You Feel Safe in your Home?: Yes Lack of Transportation: No Lack of Food: Never True Current Housing: I Have Housing Concerned About Future Housing: No Difficulty Paying Gas/Electric Bills: No Difficulty Paying for Meds: No Currently Unemployed: No Education: Associate Degree Difficulty w/ Childcare or Family Care: No Living arrangements: with family Occupation/Education: other Additional occupation/education comments: disability Gender identity (if verbalized by the patient): Female Sexual Orientation (if Verbalized by the Patient): Straight or Heterosexual Spiritual care concerns: No Agree to blood products: Yes Exam Narrative: APPEARANCE: Well appearing, no pain, no distress, well-nourished. HEAD: normocephalic, atraumatic. EYES: PERRLA/EOMI, conjunctivae clear. NOSE: Normal no drainage EARS:TMS clear with good light reflex. THROAT: Pharynx clear, no exudate. NECK: Supple. No adenopathy, no masses. RESPIRATORY: Airway patent, respirations nonlabored. Clear to auscultation bilaterally, no rales, rhonchi, wheezing. CARDIOVASCULAR: Regular rate
[2023-12-17 19:29] LABS: Basophils Absolute Auto 0.1 K/mm3 (0.0-0.1); Basophils Percent Auto 1.2 % (0.2-1.2); Eosinophils Absolute Auto 0.2 K/mm3 (0-0.3); Eosinophils Percent Auto 2.7 % (0-4.4); Hematocrit 30.4 % (37.0-47.0); Hemoglobin 9.5 g/dL (12.0-15.0); Immature Granulocyte Absolute 0.02 K/mm3 (0.00-0.031); Immature Granulocyte Percent A 0.3 % (0-0.5); Lymphocytes Absolute Auto 1.27 K/mm3 (0.9-3.2); Lymphocytes Percent Auto 21.7 % (18.3-44.2); Mean Corpuscular HGB Conc 31.3 g/dl (32-36); Mean Corpuscular Hemoglobin 32.9 pg (26-34); Mean Corpuscular Volume 105.2 fl (80-100); Mean Platelet Volume 10.3 fl (7.4-10.4); Monocytes Absolute Auto 0.7 K/mm3 (0.1-0.6); Monocytes Percent Auto 11.1 % (2.6-8.5); Neutrophils Absolute Auto 3.7 K/mm3 (1.3-6.7); Platelet Count Result 99 k/mm3 (150-375); Red Blood Count 2.89 M/mm3 (4.2-5.4); Red Cell Distribution Width 21.9 % (11.5-14.5); White Blood Count 5.8 K/mm3 (4.5-10.0)
[2023-12-17 19:48] LABS: Alanine Aminotransferase 19 U/L (6-35); Albumin Level 3.1 g/dL (3.5-5.1); Alkaline Phosphatase 162 U/L (38-126); Anion Gap 13 mmol/L (4-12); Aspartate Amino Transferase 41 U/L (14-36); Bilirubin,Total 6.4 mg/dL (0.2-1.3); Blood Urea Nitrogen 10 mg/dL (7-17); Calcium 8.3 mg/dL (8.4-10.2); Carbon Dioxide 19 mmol/L (22-30); Chloride 97 mmol/L (98-107); Estimated CRCL calculation 94 ml/min; Estimated Glomerular Filt Rate > 60; Glucose 126 mg/dL (65-110); Hypochromasia 1+; Platelet Estimate Decreased (Adequate); Poikilocytosis 1+; Potassium 3.7 mmol/L (3.4-5.0); Sodium 129 mmol/L (137-145)
[2023-12-17 19:49] LABS: Ovalocytes 1+; Schistocytes None Seen
[2023-12-17 19:55] LABS: D Dimer 3.96 ug/mL (<0.48)
[2023-12-17 22:48] VITALS: BP 118/52; PULSE 88; RESP 16; O2SAT 96
[2023-12-17 23:00] VITALS: BP 122/78; PULSE 84; RESP 15; O2SAT 97
== END 2023-12-17 23:02 | disposition home or self-care (01) ==
PROVIDERS: Emergency Provider Emergency Medicine; PCP Internal Medicine
DX: R06.02 Shortness of breath (principal); K72.10 Chronic hepatic failure without coma; E03.9 Hypothyroidism, unspecified; K76.6 Portal hypertension; Z87.891 Personal history of nicotine dependence; F10.90 Alcohol use, unspecified, uncomplicated
CPT/HCPCS: 36415; 71046; 71275; 80053; 85025; 85055; 85380; 93005; 99284; Q9967

== ENCOUNTER 2023-12-29 14:38 | Inpatient (IN) | payer BC, SELFPAY ==
[2023-12-29] VITALS (9 sets, daily range): BP systolic 116–133; BP diastolic 52–78; PULSE 75–92; RESP 15–20; TEMP 36.7; O2SAT 93–98
--- NOTE | ~2023-12-29 | US_ITS ---
EXAMINATION: US paracentesis abd w/image DATE: 12/30/2023 13:38 INDICATION: Ascites. TECHNIQUE: The procedure and its risks and benefits were discussed with the patient. Potential risks discussed included bleeding and infection. The skin was prepped and draped in sterile fashion. 1% lid ocaine was used for local anesthesia. Under ultrasound guidance, a 5 Fr catheter with trochar was adv anced into the ascites in the right lower quadrant. Fluid was aspirated into vacuum bottles. The cath eter was removed, and a dressing was applied. There were no immediate complications. FINDINGS: Ultrasound images demonstrate ascites and the catheter within the fluid. IMPRESSION: 1. Successful ultrasound-guided paracentesis yielding 5000 mL of yellowish fluid. Reviewed, dictated and finalized at location A. IMPRESSION: 1. Successful ultrasound-guided paracentesis yielding 5000 mL of yellowish flu id.
--- NOTE | ~2023-12-29 | XR_ITS ---
EXAMINATION: XR chest 2V DATE: 12/29/2023 16:35 INDICATION: Shortness of breath. TECHNIQUE: Frontal and lateral views of the chest were obtained. COMPARISON: Chest 2 views 12/17/2023 FINDINGS: There is mild atelectasis at left lung base. No pleural effusion or pneumothorax. The heart size is normal. Surgical clips in the right upper quadrant are likely from cholecystectomy. IMPRESSION: 1. Mild atelectasis at left lung base. Reviewed, dictated and finalized at location A.
--- NOTE | ~2023-12-29 | US_ITS ---
EXAMINATION: US paracentesis abd w/image DATE: 01/01/2024 16:24 INDICATION: Ascites. TECHNIQUE: The procedure and its risks and benefits were discussed with the patient. Potential risks discussed included bleeding and infection. The skin was prepped and draped in sterile fashion. 1% lid ocaine was used for local anesthesia. Under ultrasound guidance, a 5 Fr catheter with trochar was adv anced into the ascites in the right lower quadrant. Fluid was aspirated into vacuum bottles. The cath eter was removed, and a dressing was applied. There were no immediate complications. FINDINGS: Ultrasound images demonstrate ascites and the catheter within the fluid. IMPRESSION: 1. Successful ultrasound-guided paracentesis yielding 4100 mL of fidencio-colored fluid. Reviewed, dictated and finalized at location A.
--- NOTE | ~2023-12-29 | CT_ITS ---
EXAMINATION: CT abdomen pelvis w con DATE: 12/29/2023 21:24 INDICATION: abdominal pain TECHNIQUE: Computed tomography (CT) of the abdomen and pelvis was performed with 100 mL Omnipaque-350 intravenous contrast. Automated exposure control and iterative reconstruction technique were employe d. The dose-length product was 1258.95 mGy-cm. COMPARISON: 10/22/2023. FINDINGS: Lower thorax: Unremarkable Liver: Nodular liver border. Heterogeneous liver parenchyma. Biliary/Gallbladder: Gallbladder is absent. Prominent common bile duct likely secondary to cholecyste ctomy. Pancreas: No mass or duct dilation. Spleen: Enlarged. Adrenals:No mass. Kidneys: No suspicious mass, obstructing stone, or hydronephrosis. 10 mm nonobstructing left upper po le calcification GI tract: No small or large bowel dilation. Normal appendix. Mesentery/Peritoneum: No mass or free air. Abdominal varices. Large volume ascites. Retroperitoneum: No mass. Pelvis: Normal urinary bladder. Absent uterus. Bilateral ovaries not confidently visualized.. Soft Tissues: Moderate body wall edema. Fat and fluid containing umbilical hernia Bones: No acute osseous finding. IMPRESSION: Cirrhosis with portal hypertension. Large volume ascites. Moderate body wall edema. Reviewed, dictated and finalized at location K.
--- NOTE | 2023-12-29 15:46 | ECG_ITS ---
Test Date: 2023-12-29 20:20:40 Measurements Intervals [place] Rate: 77 P: 33 [place]: 182 QRS: 108 QRSD: 121 T: 14 QT: 452 QTc: 514 Interpretive Statements SINUS RHYTHM RIGHT AXIS DEVIATION INTRAVENTRICULAR CONDUCTION DELAY POOR R WAVE PROGRESSION CONSIDER INFERIOR INFARCT, AGE INDETERMINATE ABNORMAL ECG Compared to ECG 12/17/2023 19:17:01 Electronically Signed On 12-29-2023 20:36:21 CDT by Glen Woodruff D.O.
--- NOTE | 2023-12-29 15:46 | ED.ABDPAIN ---
HPI - Abdominal Pain General Chief Complaint: Abdominal Pain <Sandra Carlisle PA-C - Last Filed: 12/30/23 09:43> Stated Complaint: SOB, acities, fall <Sandra Carlisle PA-C - Last Filed: 12/30/23 09:43> Time Seen by Provider: 12/29/23 15:46 <Sandra Carlisle PA-C - Last Filed: 12/30/23 09:43> Focused HPI: This is a 53 year old female that presents to the ER for shortness of breath. Reports history of liver failure. She feels like she needs her abdomen drained. She had this done one week ago in the ER at an outside hospital. She does not currently have a liver specialist. Reports fever, nausea, abdominal pain. Denies vomiting, or diarrhea. GENERAL: Well-appearing, well-nourished, and in no acute distress. HEAD: Normocephalic, atraumatic. CHEST: Clear to auscultation. ?No respiratory distress. HEART: Regular rate and rhythm.? NEURO: ?Alert and oriented x3. Patient screened in triage and initial orders placed.? ?Additional care and disposition to be based upon?diagnostic testing and treatment. <Sandra Carlisle PA-C - Last Filed: 12/30/23 09:43> History of Present Illness HPI narrative: Agree with HPI Patient states she does not have a GI physician, liver specialist or even a primary care physician. Patient has been going. Emergency department is to have her ascites drained. <Nelson Lowe MD - Last Filed: 12/29/23 22:41> Related Data Home Medications: Home Medications Medication Instructions Recorded Confirmed levothyroxine 200 mcg tablet 200 mcg PO DAILY 06/27/23 12/29/23 nadolol 20 mg tablet 20 mg PO DAILY 12/29/23 12/29/23 spironolactone 50 mg tablet 50 mg PO DAILY 12/29/23 12/29/23 <Sandra Carlisle PA-C - Last Filed: 12/30/23 09:43> Allergies/Adverse Reactions: Allergies Allergy/AdvReac Type Severity Reaction Status Date / Time spironolactone Allergy Intermediate Hives Verified 12/11/23 19:06 amoxicillin Allergy Hives Verified 12/11/23 19:06 latex Allergy Rash Verified 12/11/23 19:06 Penicillins Allergy Hives Verified 12/11/23 19:06 <Sadnra Carlisle PA-C - Last Filed: 12/30/23 09:43> Review of Systems Review of Systems: All systems reviewed & are unremarkable except as noted in HPI and below <Nelson Lowe MD - Last Filed: 12/29/23 22:41> [facility] Past Medical History Medical History: Medical History Alcohol use TAB positive Colon cancer screening Decompensation of cirrhosis of liver Elevated liver enzymes Hypothyroidism 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 Nicotine dependence, cigarettes, with other nicotine-induced disorders Portal hypertension Pulmonary edema SBP (spontaneous bacterial peritonitis) Thrombocytopenia <Sandra Carlisle PA-C - Last Filed: 12/30/23 09:43> Surgical History Surgical History: Surgical History No significant past surgical history <Sandra Carlisle PA-C - Last Filed: 12/30/23 09:43> Family History Family History: Family History (Updated 12/29/23 @ 23:08 by Linda De La Torre RN) Sibling Alcohol abuse Brother Mother FH: kidney cancer <Sandra Carlisle PA-C - Last Filed: 12/30/23 09:43> Social History Social History: Social History Social History: Patient currently lives between friends in her dad. She has 1 child at the daughter and she states that the daughter had recently moved. She is trying to move in with her dad. She also states she did have her primary however primary recently left. She does wish to be a full code. All code status is were reviewed with the patient including DNR, DNI current pressors, BiPAP and CPAP. Patient wishes to be a full code at that time. She also likes her friend Franko to be her surrogate. Smoking packs per day: 0.5 Smoking cigarettes per day: 10.0 Years smoked:
[2023-12-29 20:44] LABS: Basophils Absolute Auto 0.1 K/mm3 (0.0-0.1); Basophils Percent Auto 1.3 % (0.2-1.2); Eosinophils Absolute Auto 0.2 K/mm3 (0-0.3); Eosinophils Percent Auto 5.3 % (0-4.4); Hematocrit 30.1 % (37.0-47.0); Hemoglobin 9.5 g/dL (12.0-15.0); Immature Granulocyte Absolute 0.02 K/mm3 (0.00-0.031); Immature Granulocyte Percent A 0.4 % (0-0.5); Lymphocytes Percent Auto 26.5 % (18.3-44.2); Mean Corpuscular HGB Conc 31.6 g/dl (32-36); Mean Corpuscular Hemoglobin 32.8 pg (26-34); Mean Corpuscular Volume 103.8 fl (80-100); Mean Platelet Volume 10.3 fl (7.4-10.4); Monocytes Absolute Auto 0.6 K/mm3 (0.1-0.6); Monocytes Percent Auto 13.9 % (2.6-8.5); Neutrophils Absolute Auto 2.4 K/mm3 (1.3-6.7); Neutrophils Percent Auto 52.6 % (45.5-73.1); Platelet Count Result 85 k/mm3 (150-375); Red Cell Distribution Width 19.9 % (11.5-14.5); White Blood Count 4.5 K/mm3 (4.5-10.0)
[2023-12-29 20:58] LABS: Alanine Aminotransferase 18 U/L (6-35); Albumin Level 3.1 g/dL (3.5-5.1); Alkaline Phosphatase 108 U/L (38-126); Anion Gap 8 mmol/L (4-12); Anisocytosis 1+; Aspartate Amino Transferase 41 U/L (14-36); Bilirubin,Total 8.3 mg/dL (0.2-1.3); Blood Urea Nitrogen 12 mg/dL (7-17); Calcium 8.3 mg/dL (8.4-10.2); Carbon Dioxide 21 mmol/L (22-30); Chloride 106 mmol/L (98-107); Estimated CRCL calculation 112 ml/min; Estimated Glomerular Filt Rate > 60; Glucose 91 mg/dL (65-110); Lipase 136 U/L (23-300); Ovalocytes 1+; Platelet Estimate Decreased (Adequate); Potassium 3.3 mmol/L (3.4-5.0); Schistocytes None Seen; Sodium 135 mmol/L (137-145)
[2023-12-29 20:59] LABS: INR 1.8; Prothrombin Time 21.6 Seconds (11.1-14.7)
[2023-12-29 21:00] LABS: Partial Thromboplastin Time 37.9 Seconds (22.3-36.8)
[2023-12-29 21:02] LABS: CRP < 0.5 mg/dL (<1.0)
[2023-12-29 21:13] LABS: Erythrocyte Sedimentation Rate 27 mm/hr (0-20)
[2023-12-29] MEDS: POTASSIUM CHLORIDE 20 MEQ ER TABLET 40 MEQ PO (22:59)
[2023-12-29] MEDS: MORPHINE SULFATE (*CRX) 2 MG/ML INJ IV PUSH (23:00)
[2023-12-30 01:00] VITALS: BMI 35.7
[2023-12-30 01:01] VITALS: BP 136/62; PULSE 78; RESP 18; TEMP 36.2; O2SAT 96
[2023-12-30 06:00] VITALS: BP 119/55; PULSE 90; RESP 16; TEMP 36.4; O2SAT 94
--- NOTE | 2023-12-30 07:03 | PM.IMHP ---
H&P: HPI History of Present Illness Date/Time: 12/30/23 07:03 Chief Complaint: Abdominal fullness and shortness of breath Narrative: 53 year old female with known liver cirrhosis and ascites not currently taking prescriptions presents to the hospital for shortness of breath and abdominal fullness. Patient states that she was going to take out the trash when she fell due to shortness of breath, so she came to the ED. She states that she has been to emergency room before and had a paracentesis with resolution symptoms at that time. Patient states that she now has lower extremity edema which she normally does not have. Patient denies fevers, chills, nausea, or vomiting. Of note in June of 2023 the patient was treated for SBP. Patient states that she was hospitalized in October of 2023 at [facility] for any upper GI bleed where she had an EGD EUS esophageal bleed was repaired. Patient states that for hospitalization she was given large bag of medications, and did not understand medications were for so she did not take them. She states that the medications are still on the back at home. Review of Systems Constitutional: Constitutional: Reports fatigue Eyes: Eyes: Reports no additional eye complaints ENT: Reports system reviewed and no additional complaints, except as documented Cardiovascular: Cardiovascular: Reports pedal edema and Reports leg edema Respiratory: Respiratory: Reports dyspnea and Reports dyspnea on exertion Gastrointestinal: Gastrointestinal: Reports bloating Genitourinary: Genitourinary: Reports no additional female genitourinary complaints Musculoskeletal: Musculoskeletal: Reports no additional musculoskeletal complaints Integumentary/Breasts: Skin/Breast: Reports system reviewed and no additional complaints, except as docu Neurologic: Reports system reviewed and no additional complaints, except as documented Psychiatric: Psychiatric: Reports no additional psychiatric complaints Hematologic/Lymphatic: Hematologic/Lymphatic: Reports easy bleeding Allergic/Immunologic: Allergic/Immunologic: Reports urticaria PMFSH Past Medical History Medical History (Updated 12/30/23 @ 13:40 by Loretta Parish APRN) Alcohol use TAB positive Colon cancer screening Decompensation of cirrhosis of liver Elevated liver enzymes Esophageal varices with bleeding Hypothyroidism 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 Nicotine dependence, cigarettes, with other nicotine-induced disorders Portal hypertension Pulmonary edema SBP (spontaneous bacterial peritonitis) Thrombocytopenia Surgical History Surgical History (Updated 12/30/23 @ 10:43 by Loretta Parish APRN) Abnormal findings on esophagogastroduodenoscopy (EGD) (~10/2023) with banding Family History Family History (Updated 12/29/23 @ 23:08 by Linda De La Torre RN) Sibling Alcohol abuse Brother Mother FH: kidney cancer Social History Social History (Updated 12/30/23 @ 10:29 by Loretta Parish APRN) Social History: Patient currently lives with her dad. She has 1 child at the daughter and she states that the daughter had recently moved. She also states she did have her primary however primary recently left. She does wish to be a full code. All code status is were reviewed with the patient including DNR, DNI current pressors, BiPAP and CPAP. Patient wishes to be a full code at that time. She also likes her friend Franko to be her surrogate. Smoking packs per day: 0.5 Smoking cigarettes per day: 10.0 Years smoked: 15 Smoking pack-years: 7.50 Smoking status: Former smoker Tobacco type: cigarettes Smoking end date: 10/01/23 Alcohol intake: former Substance use: never Substance use type: does not use Do You Feel Safe in your Home?: Yes Lack of Transportation: No Lack of Food: Never True Current Housing: I Have Housing Concerned About Future Housing: No Difficulty Paying Gas/Electric Bills: No Difficulty Paying fo
--- NOTE | 2023-12-30 08:25 | P.CONGI_ITS ---
I, Uziel Lloyd MD, have provided a substantive portion of the care of this patient and discussed the patient with my Nurse Practitioner. I have reviewed any new relevant radiographic and laboratory results including medications. I agree with her documentation as noted below.?I personally performed the medical decision making and much of the history and exam for this encounter. briefly, she has known decompensated cirrhosis with non compliance, she still has not established with dye weigher despite recommendation. She is here with recurrent ascites (she has not been using diuretics and claims that is allergic to aldactone), had previous hospitalization for confusion and gib at another institution but not using lactulose at home. Here with more ascites and underwent more paracentesis, also noted bili 8, CT scan no liver lesions, + ascites. Plan is to start lasix, lactulose, paracentesis as needed, also refer to dye weigher. Previous work up showed high regis 1:1260 with normal ama, actin igm and lkm- ? autoimmune component- last time started on prednisode but she did not use as outpatient. Assessment and Plan Assessment and plan (1) Decompensation of cirrhosis of liver: Code(s): K72.90 - Hepatic failure, unspecified without coma; K74.60 - Unspecified cirrhosis of liver Status: Acute (2) Portal hypertension: Code(s): K76.6 - Portal hypertension Status: Acute (3) Thrombocytopenia: Code(s): D69.6 - Thrombocytopenia, unspecified Status: Acute (4) Ascites: Qualifiers: Ascites type: other type Qualified Code(s): R18.8 - Other ascites Code(s): R18.8 - Other ascites Status: Acute (5) Elevated liver enzymes: Code(s): R74.8 - Abnormal levels of other serum enzymes Status: Acute (6) REGIS positive: Code(s): R76.8 - Other specified abnormal immunological findings in serum Status: Acute (7) Hyponatremia: Code(s): E87.1 - Hypo-osmolality and hyponatremia Status: Acute (8) Hypokalemia: Code(s): E87.6 - Hypokalemia Status: Inactive (9) Macrocytic anemia: Code(s): D53.9 - Nutritional anemia, unspecified Status: Acute Plan 1. Cirrhosis with ascites/esophageal varices/ portal hypertension/thrombocytopenia/history of SBP/autoimmune hepatitis?/elevated LFT's/hyponatremia/hypokalemia: MELD NA score 22. Decompensated. Patient was previously referred to hepatology at [facility] or [facility] for consideration of TIPS procedure and further management but patient denies seeing another dye weigher. Given her current MELD score she is likely not a can didate for TIPS at this time. she denies any alcohol use since October and prior to that time she states she was only drinking 1 to 2 times a week but denies excessive alcohol use. Labs this admission showed total bilirubin 8.3, AST 81, ALT 18, alkaline phosphatase 108, albumin 3.1. INR 1.8, platelets 85, lipase 136. Prior liver workup questionable for autoimmune hepatitis and she was previously treated with steroids during her hospitalization in June at [facility]. REGIS significantly elevated >1:1280 - Variceal screening: Last EGD on record here was 07/02/2023 Which showed very small esophageal varices and gastritis. Per patient in October she was hospitalized at [facility] at which time she had an EGD for bleeding varices but these records not available at visit. Beta derrek: Nadolol 20 mg daily - Last paracentesis: Per patient a paracentesis was done in October. Paracentesis 10/22/2023 with 5000 ml removed. - Current diuretics:Per patient she is n
--- NOTE | 2023-12-30 08:25 | WPDGICN ---
Assessment and Plan Assessment and plan (1) Decompensation of cirrhosis of liver: Code(s): K72.90 - Hepatic failure, unspecified without coma; K74.60 - Unspecified cirrhosis of liver Status: Acute (2) Portal hypertension: Code(s): K76.6 - Portal hypertension Status: Acute (3) Thrombocytopenia: Code(s): D69.6 - Thrombocytopenia, unspecified Status: Acute (4) Ascites: Qualifiers: Ascites type: other type Qualified Code(s): R18.8 - Other ascites Code(s): R18.8 - Other ascites Status: Acute (5) Elevated liver enzymes: Code(s): R74.8 - Abnormal levels of other serum enzymes Status: Acute (6) TAB positive: Code(s): R76.8 - Other specified abnormal immunological findings in serum Status: Acute (7) Hyponatremia: Code(s): E87.1 - Hypo-osmolality and hyponatremia Status: Acute (8) Hypokalemia: Code(s): E87.6 - Hypokalemia Status: Inactive (9) Macrocytic anemia: Code(s): D53.9 - Nutritional anemia, unspecified Status: Acute Plan 1. Cirrhosis with ascites/esophageal varices/ portal hypertension/thrombocytopenia/history of SBP/autoimmune hepatitis?/elevated LFT's/hyponatremia/hypokalemia: MELD NA score 22. Decompensated. Patient was previously referred to hepatology at [facility] or [facility] for consideration of TIPS procedure and further management but patient denies seeing another chute man. Given her current MELD score she is likely not a candidate for TIPS at this time. she denies any alcohol use since October and prior to that time she states she was only drinking 1 to 2 times a week but denies excessive alcohol use. Labs this admission showed total bilirubin 8.3, AST 81, ALT 18, alkaline phosphatase 108, albumin 3.1. INR 1.8, platelets 85, lipase 136. Prior liver workup questionable for autoimmune hepatitis and she was previously treated with steroids during her hospitalization in June at [place]. TAB significantly elevated >1:1280 - Variceal screening: Last EGD on record here was 07/02/2023 Which showed very small esophageal varices and gastritis. Per patient in October she was hospitalized at [facility] at which time she had an EGD for bleeding varices but these records not available at visit. Beta derrek: Nadolol 20 mg daily - Last paracentesis: Per patient a paracentesis was done in October. Paracentesis 10/22/2023 with 5000 ml removed. - Current diuretics:Per patient she is not taking diuretics outpatient and has never been on them . Per prior records she was on lasix and aldactone and per patient she is allergic to aldactone, reaction unknown. - Diet: 2 gram sodium diet which patient states she has been following - History of HE: Per patient is sounds as if she may have been encephalopathic during her hospitalization in October. Ammonia this admission <9 - HCC screening: Last imaging 12/29/2023 no liver lesion or mass. AFP was ordered. Patient will require repeat imaging and labs every 6 months - Paracentesis with fluid analysis pending - start Lasix 40 mg daily and will increase to 80 mg if tolerated as sodium currently at 135 and potassium 3.3. Unable to start Aldactone due to possible allergy, but this could not be confirmed - Primary care team to monitor electrolytes closely and correct 2. Macrocytic anemia: Labs this admission show HGB 10, HCT 30, MCV 104, platelets 85. Iron panel in June showed iron 90, TIBC 287, iron saturation 36, ferritin 34.8 and B12 and folate were normal No signs of active GI bleed. Primary care team to continue monitoring H/H and transfuse as needed to keep Hgb >7 Thank you very much for allowing me to share in the care of this very nice patient. This report may have been done utilizing a voice recognition system. Attempts have been made to correct errors. However, there may be uncorrected grammatical, spelling, and recognition errors present.
[2023-12-30 09:00] VITALS: O2SAT 95
[2023-12-30 11:58] VITALS: BMI 35.7
[2023-12-30 13:08] LABS: Add Urine Microscopic? YES; Appearance Urine Clear (Clear); Bacteria Urine 1+ /hpf; Bilirubin Urine 2+ (Negative); Blood Urine Negative (Negative); Color Urine Dark Yellow (Yellow); Glucose Urine UA Negative (Negative); Ketones Urine Trace mg/dL (Negative); Leukocyte Esterase Ur Trace LEU/UL (Negative); Need Manual Microscopic Reviewed; Nitrate Urine Positive (Negative); Non Pathogenic Casts 0-2; Protein Urine 1+ mg/dL (Negative); Specific Grav Ur > 1.045 (1.001-1.035); Squamous Epithelial Cell Urine Many /hpf (Few); WBC Urine 0-5 /hpf (0-3)
[2023-12-30 13:56] LABS: Appearance Peritoneal Fluid Clear (Clear); Color Peritoneal Fluid Yellow (Colorless); Nucleated Cells Peritoneal Flu 129 /uL (0-500); Source Peritoneal Fluid Peritoneal Fluid
[2023-12-30 13:57] VITALS: BP 105/62; PULSE 83; RESP 16; TEMP 36.6; O2SAT 96
[2023-12-30 13:57] LABS: RBC Peritoneal Fluid < 2000 /uL (0-10000)
[2023-12-30 14:00] LABS: Eosinophils Peritoneal Fluid 1 %; Lymphocytes Peritoneal Fluid 66 %; Macrophages Peritoneal Fluid 16 %; Mesothelial Cells Peritoneal Fluid 2 %; Monocytes Peritoneal Fluid 14 %; Neutrophils Peritoneal Fluid 1 % (0-25)
[2023-12-30] MEDS: PANTOPRAZOLE 40 MG TABLET PO (14:22)
[2023-12-30] MEDS: FUROSEMIDE 40 MG TABLET PO (14:22)
[2023-12-30 17:06] LABS: Ammonia 63 umol/L (9-30)
[2023-12-30 17:08] LABS: INR 1.9; Partial Thromboplastin Time 39.9 Seconds (22.3-36.8); Prothrombin Time 22.5 Seconds (11.1-14.7)
[2023-12-30] MEDS: LACTULOSE 20 GM/30 ML UDC PO (17:46)
[2023-12-30 20:55] VITALS: BP 114/63; PULSE 89; RESP 16; TEMP 36.9; O2SAT 96
[2023-12-31] MEDS: LEVOTHYROXINE SODIUM 100 MCG TABLET 200 MCG PO (05:19)
[2023-12-31 05:20] VITALS: BP 99/76; PULSE 100; RESP 18; TEMP 36.9; O2SAT 92
--- NOTE | 2023-12-31 08:08 | PM.IMPN ---
Progress Note: A&P Assessment and Plan (1) Decompensation of cirrhosis of liver: Code(s): K72.90 - Hepatic failure, unspecified without coma; K74.60 - Unspecified cirrhosis of liver Status: Acute Assessment and Plan: GI consulted MELD NA score 22 Patient was previously referred to hepatology at [facility] or [facility] for consideration of TIPS procedure and further management but patient denies seeing another director smb sales. 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 Patient has been noncompliant with medications or followups with a director smb sales. Time Spent With Patient Time: 35 minutes Subjective Date/time seen: 12/31/23 08:08 Interval history: 53 year old female with known liver cirrhosis and ascites not currently taking prescriptions presents to the hospital for shortness of breath and abdominal fullness due to decompensation of cirrhosis of liver with ascites. Last 24 hours: paracentesis on 12/29 had 5L removed. Patient tolerated the procedure well. Abd pain after the procedure but fluid studies not consistent with SBP. No acute events overnight. INR 1.9 Review of Systems Constitutional: Constitutional: Reports fatigue Eyes: Eyes: Reports no additional eye complaints ENT: Reports system reviewed and no additional complaints, except as documented Cardiovascular: Cardiovascular: Reports pedal edema, Reports leg edema, Reports dyspnea and Reports dyspnea on exertion Respiratory: Respiratory: Reports dyspnea and Reports dyspnea on exertion Gastrointestinal: Gastrointestinal: Reports bloating Genitourinary: Genitourinary: Reports no additional female genitourinary complaints Musculoskeletal: Musculoskeletal: Reports no additional musculoskeletal complaints Integumentary/Breasts: Skin/Breast: Reports system reviewed and no additional complaints, except as docu Neurologic: Reports system reviewed and no additional complaints, except as documented Psychiatric: Psychiatric: Reports no additional psychiatric complaints Endocrine: Endocrine: Reports fatigue Hematologic/Lymphatic: Hematologic/Lymphatic: Reports easy bleeding Allergic/Immunologic: Allergic/Immunologic: Reports urticaria Exam Const: General: comfortable and no acute distress Eyes: Sclera: scleral abnormality (Icterus) bilateral Pupils: Equal, round and reactive pupils present EOM: EOMs intact bilaterally Neck: Neck: supple Resp: Effort & Inspection: normal respiratory effort Auscultation: clear to auscultation bilaterally Cardio: Rate: regular rate Rhythm: regular rhythm GI: Inspection: distended Auscultation: normal bowel sounds Other: Hernia sounds, no tenderness to palpation, easily reducible Skin: Other: Jaundice Neuro: Cranial nerves: Yes Equal, round and reactive pupils present Speech: normal speech Motor exam (neuro): Normal motor muscle tone present throughout Extrem: General: normal to inspection Right lower extremity: lower leg Details: pitting edema Details: 2+ Left lower extremity: lower leg Details: pitting edema Details: 2+
[2023-12-31 09:02] LABS: Hematocrit 28.4 % (37.0-47.0); Hemoglobin 8.6 g/dL (12.0-15.0); Immature Platelet Fraction Pct 2.5 % (0.9-11.2); Mean Corpuscular HGB Conc 30.3 g/dl (32-36); Mean Corpuscular Hemoglobin 32.1 pg (26-34); Platelet Count Result 92 k/mm3 (150-375); Red Blood Count 2.68 M/mm3 (4.2-5.4); Red Cell Distribution Width 19.9 % (11.5-14.5)
[2023-12-31 09:14] LABS: Alanine Aminotransferase 16 U/L (6-35); Albumin Level 2.6 g/dL (3.5-5.1); Alkaline Phosphatase 110 U/L (38-126); Anion Gap 6 mmol/L (4-12); Aspartate Amino Transferase 37 U/L (14-36); Bilirubin,Total 5.5 mg/dL (0.2-1.3); Blood Urea Nitrogen 11 mg/dL (7-17); Calcium 7.9 mg/dL (8.4-10.2); Carbon Dioxide 21 mmol/L (22-30); Chloride 106 mmol/L (98-107); Estimated CRCL calculation 114 ml/min; Estimated Glomerular Filt Rate > 60; Glucose 88 mg/dL (65-110); Potassium 4.2 mmol/L (3.4-5.0); Sodium 133 mmol/L (137-145)
[2023-12-31] MEDS: LACTULOSE 20 GM/30 ML UDC PO ×3 (09:56→17:10)
[2023-12-31] MEDS: FUROSEMIDE 40 MG TABLET PO (09:56)
[2023-12-31] MEDS: PANTOPRAZOLE 40 MG TABLET PO (09:56)
[2023-12-31 13:52] VITALS: BP 106/56; PULSE 74; RESP 16; TEMP 36.7; O2SAT 98
--- NOTE | 2023-12-31 15:29 | WPDGIPROGNO ---
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: Code(s): K75.81 - Nonalcoholic steatohepatitis (BACON); K74.60 - Unspecified cirrhosis of liver Status: Acute Assessment and Plan: supportive care meld score on admission 22, will need follow-up with hepatology- send referral 2g na diet, nutrition support ? home tomorrow (2) Ascites: Qualifiers: Ascites type: other type Qualified Code(s): R18.8 - Other ascites Code(s): R18.8 - Other ascites Status: Acute Assessment and Plan: s/p paracentesis no sbp lasix, ? allergic to aldactone (3) Macrocytic anemia: Code(s): D53.9 - Nutritional anemia, unspecified Status: Acute (4) Thrombocytopenia: Code(s): D69.6 - Thrombocytopenia, unspecified Status: Acute Subjective Date/time seen: 12/31/23 15:29 Interval history: no major changes, she is eating Review of Systems Review of Systems: All systems reviewed & are unremarkable except as noted in HPI and below Exam Const: General: comfortable and no acute distress Other: chronically ill HENMT: Face/Nose/Sinus: Normal nares present Eyes: General: appearance normal, both eyes and all related structures Neck: Neck: supple Resp: Auscultation: clear to auscultation bilaterally Cardio: Rate: regular rate Rhythm: regular rhythm GI: Inspection: non-distended GI Palp: Yes Soft to palpation and No Tenderness to palpation present (GI) Other: less ascites Skin: General skin exam: no rashes or lesions noted Neuro: Speech: normal speech Motor exam (neuro): 5/5 motor strength present throughout Extrem: General: normal to inspection Psych: Mental Status: mental status grossly normal Objective Data Vital Signs Vital Signs: Vital Signs - 24 hr 12/30/23 20:55 12/30/23 20:00 12/31/23 05:20 Temperature 98.5 F 98.4 F Pulse Rate 89 100 Respiratory Rate 16 18 Blood Pressure 114/63 99/76 L Pulse Oximetry 96 92 Oxygen Delivery Room Air 12/31/23 13:52 12/31/23 10:00 Temperature 98.0 F Pulse Rate 74 Respiratory Rate 16 Blood Pressure 106/56 L Pulse Oximetry 98 Oxygen Delivery Room Air Intake/Output Intake/Output: Intake & Output 12/28/23 12/29/23 12/30/23 12/31/23 23:59 23:59 23:59 23:59 Intake Total 1594 1062 Output Total 5300 Balance -3706 1062 Meds/Results Medications: Active Medications Generic Name Dose Route Start Last Admin Trade Name Freq PRN Reason Stop Dose Admin Furosemide 40 mg 12/31/23 09:00 12/31/23 09:56 Furosemide 40 Mg Tablet PO 40 mg DAILY LENNY Administration Lactulose 20 gm 12/30/23 17:00 12/31/23 13:10 Lactulose 20 Gm/30 Ml Udc PO 20 gm TID LENNY Administration Levothyroxine Sodium 200 mcg 12/31/23 06:30 12/31/23 05:19 Levothyroxine Sodium 100 Mcg Tablet PO 200 mcg DAILY@0630 LENNY Administration Oxycodone HCl 5 mg 12/30/23 15:58 Oxycodone Hcl (*Crx) 5 Mg Tab Ir PO Q4H PRN Pain Rated 5 or more Pantoprazole Sodium 40 mg 12/30/23 13:45 12/31/23 09:56 Pantoprazole 40 Mg Tablet PO 40 mg DAILY LENNY Administration Radiology Results: ITS Impressions Chest X-Ray 12/29/23 16:35 IMPRESSION: 1. Mild atelectasis at left lung base. Abdomen/Pelvis CT 12/29/23 21:30 IMPRESSION: Cirrhosis with portal hypertension. Large volume ascites. Moderate body wall edema. Paracentesis Ultrasound 12/30/23 13:50 IMPRESSION: 1. Successful ultrasound-guided paracentesis yielding 5000 mL of yellowish fluid. Labs Labs: Laboratory Results - last 24 hr 12/30/23 12/31/23 16:50 08:31 WBC 5.0 RBC 2.68 L Hgb 8.6 L Hct 28.4 L MCV 106.0 H MCH 32.1 MCHC 30.3 L RDW 19.9 H Plt Count 92 L MPV 10.0 % Immature Plt Fraction 2.5 PT 22.5 H INR 1.9 APTT 39.9 H Sodium 133 L Potassium 4.2 Chloride 106 Carbon Dioxide 21 L A
[2023-12-31 20:30] VITALS: BP 110/63; PULSE 87; RESP 18; TEMP 36.9; O2SAT 94
[2023-12-31] MEDS: ONDANSETRON HCL ODT 4 MG TABLET PO (21:16)
[2024-01-01 04:42] VITALS: BP 120/75; PULSE 98; RESP 18; TEMP 36.7; O2SAT 94
[2024-01-01] MEDS: LEVOTHYROXINE SODIUM 100 MCG TABLET 200 MCG PO (05:34)
[2024-01-01] MEDS: FUROSEMIDE 40 MG TABLET PO (08:16)
[2024-01-01] MEDS: PANTOPRAZOLE 40 MG TABLET PO (08:16)
[2024-01-01] MEDS: LACTULOSE 20 GM/30 ML UDC PO ×3 (08:16→17:16)
[2024-01-01 08:23] LABS: Alanine Aminotransferase 16 U/L (6-35); Albumin Level 2.5 g/dL (3.5-5.1); Alkaline Phosphatase 122 U/L (38-126); Anion Gap 4 mmol/L (4-12); Aspartate Amino Transferase 36 U/L (14-36); Bilirubin,Total 4.3 mg/dL (0.2-1.3); Blood Urea Nitrogen 10 mg/dL (7-17); Calcium 7.7 mg/dL (8.4-10.2); Carbon Dioxide 21 mmol/L (22-30); Chloride 107 mmol/L (98-107); Estimated CRCL calculation 99 ml/min; Estimated Glomerular Filt Rate > 60; Glucose 92 mg/dL (65-110); Sodium 132 mmol/L (137-145)
[2024-01-01 08:26] LABS: Hematocrit 28.7 % (37.0-47.0); Immature Platelet Fraction Pct 1.8 % (0.9-11.2); Mean Corpuscular HGB Conc 31.4 g/dl (32-36); Mean Corpuscular Hemoglobin 33.1 pg (26-34); Mean Corpuscular Volume 105.5 fl (80-100); Mean Platelet Volume 9.9 fl (7.4-10.4); Platelet Count Result 91 k/mm3 (150-375); Red Blood Count 2.72 M/mm3 (4.2-5.4); White Blood Count 5.3 K/mm3 (4.5-10.0)
[2024-01-01 09:55] LABS: Lymphocytes Absolute Manual 0.84 K/mm3 (1.1-4.5); Lymphocytes Percent Manual 16 % (18-44); Neutrophils Percent Manual 73 % (46-73); Total Cells Counted 100
[2024-01-01 09:56] LABS: Anisocytosis 2+; Basophilic Stippling 1+; Eosinophils Absolute Manual 0.26 K/mm3 (0.02-0.50); Eosinophils Percent Manual 5 % (0-4); Giant Platelets Present; Hypochromasia 1+; Monocytes Absolute Manual 0.31 K/mm3 (0.1-0.90); Monocytes Percent Manual 6 % (3-9); Platelet Estimate Decreased (Adequate); Polychromasia 1+
[2024-01-01 09:57] LABS: Schistocytes None Seen
[2024-01-01 14:22] VITALS: BP 110/60; PULSE 89; RESP 20; TEMP 37; O2SAT 93
--- NOTE | 2024-01-01 14:34 | WPDGIPROGNO ---
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: Code(s): K75.81 - Nonalcoholic steatohepatitis (BACON); K74.60 - Unspecified cirrhosis of liver Status: Acute Assessment and Plan: supportive care meld score on admission 22, will need follow-up with hepatology- send referral to either [facility] or [facility], eventually may need liver transplant evaluation 2g na diet, nutrition support will ask radiologist if can get another paracentesis (2) Ascites: Qualifiers: Ascites type: other type Qualified Code(s): R18.8 - Other ascites Code(s): R18.8 - Other ascites Status: Acute Assessment and Plan: s/p paracentesis no sbp lasix, ? allergic to aldactone 2g na diet (3) Macrocytic anemia: Code(s): D53.9 - Nutritional anemia, unspecified Status: Acute (4) Thrombocytopenia: Code(s): D69.6 - Thrombocytopenia, unspecified Status: Acute Subjective Date/time seen: 01/01/24 14:34 Interval history: feeling tired, wonder if could have another paracentesis because abdominal fullness Review of Systems Review of Systems: All systems reviewed & are unremarkable except as noted in HPI and below Exam Const: General: comfortable and no acute distress Other: chronically ill HENMT: Face/Nose/Sinus: Normal nares present Eyes: General: appearance normal, both eyes and all related structures Sclera: scleral abnormality (icteric) Neck: Neck: supple Resp: Auscultation: clear to auscultation bilaterally Cardio: Rate: regular rate Rhythm: regular rhythm GI: Inspection: non-distended GI Palp: Yes Soft to palpation and No Tenderness to palpation present (GI) Other: + ascites Skin: General skin exam: no rashes or lesions noted Neuro: Speech: normal speech Motor exam (neuro): 5/5 motor strength present throughout Extrem: General: pedal edema Psych: Mental Status: mental status grossly normal Objective Data Vital Signs Vital Signs: Vital Signs - 24 hr 12/31/23 20:30 01/01/24 04:42 01/01/24 08:00 Temperature 98.5 F 98.1 F Pulse Rate 87 98 Respiratory Rate 18 18 Blood Pressure 110/63 120/75 Pulse Oximetry 94 94 Oxygen Delivery Room Air 01/01/24 14:22 Temperature 98.6 F Pulse Rate 89 Respiratory Rate 20 Blood Pressure 110/60 Pulse Oximetry 93 Oxygen Delivery Intake/Output Intake/Output: Intake & Output 12/29/23 12/30/23 12/31/23 01/01/24 23:59 23:59 23:59 23:59 Intake Total 1594 1284 1098 Output Total 5300 Balance -3706 1284 1098 Meds/Results Medications: Active Medications Generic Name Dose Route Start Last Admin Trade Name Freq PRN Reason Stop Dose Admin Furosemide 40 mg 12/31/23 09:00 01/01/24 08:16 Furosemide 40 Mg Tablet PO 40 mg DAILY LENNY Administration Lactulose 20 gm 12/30/23 17:00 01/01/24 12:50 Lactulose 20 Gm/30 Ml Udc PO 20 gm TID LENNY Administration Levothyroxine Sodium 200 mcg 12/31/23 06:30 01/01/24 05:34 Levothyroxine Sodium 100 Mcg Tablet PO 200 mcg DAILY@0630 LENNY Administration Ondansetron HCl 4 mg 12/31/23 21:05 12/31/23 21:16 Ondansetron Hcl Odt 4 Mg Tablet PO 4 mg Q6H PRN Administration Nausea And Vomiting Oxycodone HCl 5 mg 12/30/23 15:58 Oxycodone Hcl (*Crx) 5 Mg Tab Ir PO Q4H PRN Pain Rated 5 or more Pantoprazole Sodium 40 mg 12/30/23 13:45 01/01/24 08:16 Pantoprazole 40 Mg Tablet PO 40 mg DAILY LENNY Administration Radiology Results: ITS Impressions Chest X-Ray 12/29/23 16:35 IMPRESSION: 1. Mild atelectasis at left lung base. Abdomen/Pelvis CT 12/29/23 21:30 IMPRESSION: Cirrhosis with portal hypertension. Large volume ascites. Moderate body wall edema. Paracentesis Ultrasound 12/30/23 13:50 IMPRESSION: 1. Successful ultrasound-guided paracentesis yielding 5000 mL of yellowish fluid. Labs Labs: Laboratory Results - last
--- NOTE | 2024-01-01 15:41 | PM.IMPN ---
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 Decompensated. Per chart review patient was previously referred to [place] and/or [facility] for livestock nutritionist, however she did not follow up Per patient she has not been compliant with any of her medications - Abdomen/pelvis CT: Cirrhosis with portal hypertension. Large volume ascites. Moderate body wall edema. - tot bili 8.3, AST 41, ALT 18, alk phos 108 on admission. Now tot bili 4.3 and LFTs WNL. - Monitor vital signs and electrolyses - GI consulted S/p paracentesis on 12/29 with 5L removed. Diagnostics pending. No signs of spontaneous bacterial peritonitis. Patient to have another paracentesis, ordered. Lasix 40 mg daily, may be able to increase to 80 mg if tolerated well Restarted on lactulose 20 gm TID given patients reported history of hepatic encephalopathy Diet: 2 gram sodium diet which patient states she has been following (2) Ascites: Qualifiers: Ascites type: other type Qualified Code(s): R18.8 - Other ascites Code(s): R18.8 - Other ascites Status: Acute Assessment and Plan: - see plan above #1 (3) Macrocytic anemia: Code(s): D53.9 - Nutritional anemia, unspecified Status: Acute Assessment and Plan: H/H 9.5/30.1 with MCV 103.8 on admission. Appears at baseline. - Iron panel - B12 and folate - Monitor (4) Hypertension: Code(s): I10 - Essential (primary) hypertension Status: Acute Assessment and Plan: Chronic, holding home nadolol given that she remains well controlled after starting the lasix. 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 - synthroid 200 mcg daily - monitor Time Spent With Patient Time with patient: 25 - 35 minutes Subjective Date/time seen: 01/01/24 15:41 Interval history: 53 year old female with known liver cirrhosis and ascites not currently taking prescriptions presents to the hospital for shortness of breath and abdominal fullness. Patient is pleasant lying in her bed. She continues to endorse mild shortness of breath and abdominal fullness. She denies chest pain, palpitations, abdominal pain and nausea/vomiting. She was seen by GI and will attempt another paracentesis. Review of Systems Review of Systems: All systems reviewed & are unremarkable except as noted in HPI and below Exam Narrative: AF HR 89 RR 20 SpO2 93 BP 110/60 General: female in no acute respiratory distress who is nontoxic appearing, lying semi recumbent in bed. HEENT: Normocephalic. Atraumatic. Extraocular movement intact. Sclera clear and icteric. No facial asymmetry. Chest: Lungs are clear to auscultation bilaterally. No wheezes or crackles. CV: Heart was regular rate and rhythm. S1-S2. No murmurs, gallops, or rubs. Abd: Abdomen was soft. Nontender. Ascites. Positive bowel sounds. Ext: No clubbing, cyanosis, or edema. 2+ DP pulses bilaterally. Neuro: Patient is alert. Cranial nerves 2-12 are intact. Speech is clear. Objective Data Vital Signs Vital Signs: Vital Signs - 24 hr 12/31/23 20:30 01/01/24 04:42 01/01/24 08:00 Temperature 98.5 F 98.1 F Pulse Rate 87 98 Respiratory Rate 18 18 Blood Pressure 110/63 120/75 Pulse Oximetry 94 94 Oxygen Delivery Room Air 01/01/24 14:22 Temperature 98.6 F Pulse Rate 89 Respiratory Rate 20 Blood Pressure 110/60 Pulse Oximetry 93 Oxygen Delivery Intake/Output Intake/Output: Intake & Output 12/29/23 12/30/23 12/31/23 01/01/24 23:59 23:59 23:59 23:59 Intake Total 1594 1284 1098 Output Total 5300 Balance -3706 1284 1098 M
[2024-01-01 21:32] VITALS: O2SAT 96
[2024-01-01 21:35] VITALS: BP 117/60; PULSE 74; RESP 16; TEMP 36.3; O2SAT 96
[2024-01-02] MEDS: LEVOTHYROXINE SODIUM 100 MCG TABLET 200 MCG PO (05:47)
[2024-01-02 06:00] VITALS: BP 99/57; PULSE 91; RESP 22; TEMP 36.9; O2SAT 94
[2024-01-02 07:52] LABS: Iron 38 ug/dL (37-170)
[2024-01-02 08:01] LABS: Percent Iron Saturation 18 % (20-50)
[2024-01-02 08:12] LABS: Basophils Absolute Auto 0.1 K/mm3 (0.0-0.1); Basophils Percent Auto 1.1 % (0.2-1.2); Eosinophils Absolute Auto 0.2 K/mm3 (0-0.3); Eosinophils Percent Auto 3.8 % (0-4.4); Hematocrit 26.7 % (37.0-47.0); Hemoglobin 8.4 g/dL (12.0-15.0); Immature Granulocyte Absolute 0.01 K/mm3 (0.00-0.031); Immature Granulocyte Percent A 0.2 % (0-0.5); Immature Platelet Fraction Pct 2.1 % (0.9-11.2); Lymphocytes Absolute Auto 1.01 K/mm3 (0.9-3.2); Lymphocytes Percent Auto 21.3 % (18.3-44.2); Mean Corpuscular HGB Conc 31.5 g/dl (32-36); Mean Corpuscular Hemoglobin 33.2 pg (26-34); Mean Corpuscular Volume 105.5 fl (80-100); Mean Platelet Volume 10.8 fl (7.4-10.4); Monocytes Absolute Auto 0.6 K/mm3 (0.1-0.6); Monocytes Percent Auto 13.5 % (2.6-8.5); Neutrophils Absolute Auto 2.9 K/mm3 (1.3-6.7); Neutrophils Percent Auto 60.1 % (45.5-73.1); Platelet Count Result 82 k/mm3 (150-375); Red Blood Count 2.53 M/mm3 (4.2-5.4); Red Cell Distribution Width 20.1 % (11.5-14.5); White Blood Count 4.8 K/mm3 (4.5-10.0)
[2024-01-02 08:21] LABS: Alanine Aminotransferase 16 U/L (6-35); Albumin Level 2.3 g/dL (3.5-5.1); Alkaline Phosphatase 98 U/L (38-126); Anion Gap 4 mmol/L (4-12); Aspartate Amino Transferase 38 U/L (14-36); Bilirubin,Total 4.1 mg/dL (0.2-1.3); Blood Urea Nitrogen 9 mg/dL (7-17); Calcium 7.6 mg/dL (8.4-10.2); Carbon Dioxide 21 mmol/L (22-30); Chloride 106 mmol/L (98-107); Estimated CRCL calculation 111 ml/min; Estimated Glomerular Filt Rate > 60; Glucose 162 mg/dL (65-110); Potassium 3.5 mmol/L (3.4-5.0); Sodium 131 mmol/L (137-145)
[2024-01-02 08:28] LABS: Folic Acid 7.7 ng/mL (2.76->20)
[2024-01-02 09:00] VITALS: BP 107/55
[2024-01-02 09:01] LABS: Anisocytosis 2+; Large Platelets Present; Macrocytosis 1+ (NORMAL); Platelet Estimate Decreased (Adequate); Schistocytes None Seen
[2024-01-02] MEDS: FERROUS SULFATE 325 MG TABLET DR PO (09:03)
[2024-01-02] MEDS: PANTOPRAZOLE 40 MG TABLET PO (09:03)
[2024-01-02] MEDS: FUROSEMIDE 40 MG TABLET PO (09:05)
--- NOTE | 2024-01-02 10:59 | PCNFU ---
Nutrition Follow-Up Complete: Unintended weight loss as related to SOB and abdominal fullness as evidenced by 30 ibs weight loss in 2 months. Goal: Adequate Intake of at least 75% of meals/supplements Patient is meeting goal. No new goal. Pt current nutrition is Heart Healthy with Ensure Compact BID. Last recorded weight is 98.6 kg, down from 103.5 kg on admit. Patient has had 2 paracentesis this admit. Bowel Motility: +BM reported 01/01 Labs Reviewed: Glu 162, NA 131, Alb 2.3,Cr 0.6 Meds Noted: Lasix, Protonix Skin: WNL Additional Notes: Patient remains on a heart healthy diet. Oral Intake has been good > 75% of meals. She is consuming diet supplements of Ensure Compact providing an additional 220 kcal and 9 gm protein. Paracentesis performed on 12/29 and 12/31. Agree with diet orders. Will monitor weight, labs, skin, oral intake, meds every 5 days.
--- NOTE | 2024-01-02 12:58 | PCOTNOTE ---
Per PT, pt is I with ADLs/functional mobility and has no further therapy needs. Will d/c OT orders.
[2024-01-02 14:00] VITALS: BP 101/57; PULSE 90; RESP 16; TEMP 36.6; O2SAT 93
--- NOTE | 2024-01-02 14:31 | PM.DS ---
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: Code(s): K75.81 - Nonalcoholic steatohepatitis (BACON); K74.60 - Unspecified cirrhosis of liver Status: Acute (2) Ascites: Qualifiers: Ascites type: other type Qualified Code(s): R18.8 - Other ascites Code(s): R18.8 - Other ascites Status: Acute (3) Macrocytic anemia: Code(s): D53.9 - Nutritional anemia, unspecified Status: Acute (4) Hypertension: Code(s): I10 - Essential (primary) hypertension Status: Acute (5) 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 Patient has been noncompliant with medications prior to admission. on admission patient's lab showed macrocytic anemia. Iron panel was obtained and showed iron deficiency anemia and patient started on iron supplementation. Labs also showed thrombocytopenia likely secondary to patient's liver disease. There is no signs of active bleeding. patient also had elevated liver enzymes with a tot bili 8.3, AST 41, ALT 18, alk phos 108 on admission. Now tot bili 4.1 and LFTs WNL. An abdominal pelvis CT was obtained and showed cirrhosis with portal hypertension, large volume ascites, moderate body wall edema. GI was consulted. MELD NA score 22. Decompensated. Patient underwent a paracentesis on 12/29 with 5 L removed. Diagnostics are pending. Per GI there is no signs of spontaneous bacterial peritonitis. Patient was started on Lasix 40 mg daily and had her lactulose 20 g t.i.d. and protonix 40 mg daily resumed. Patient's blood pressure remained stable on the Lasix and her nadolol was discontinued. ON 12/30 patient continued to endorse abdominal fullness and underwent another paracentesis removing 4.1 L. Following the procedure patient was no longer having abdominal fullness and denied shortness of breath. Patient was able to work with physical therapy who stated patient had no needs. Prior discharge patient denied chest pain, shortness a breath, nausea/vomiting, and abdominal pain. Discuss in depth patient that she needs to follow up with agriculture extension specialist given her current liver function and she states understanding. Care coordination is given her agriculture extension specialist in the area. patient discharged home in stable condition. She is to follow-up with a agriculture extension specialist. referrals should be sent to [facility] or [facility]. She is to follow up with her primary care provider. Status at Discharge Functional status at discharge: independent ambulation Time Spent with Patient Time attestation: Total time spent providing and/or coordinating discharge services: Time spent: Greater than 30 minutes Exam Narrative: AF HR 90 RR 16 SpO2 93 BP 101/57 General: female in no acute respiratory distress who is nontoxic appearing, lying semi recumbent in bed. HEENT: Normocephalic. Atraumatic. Extraocular movement intact. Sclera clear and icteric. No facial asymmetry. Chest: Lungs are clear to auscultation bilaterally. No wheezes or crackles. CV: Heart was regular rate and rhythm. S1-S2. No murmurs, gallops, or rubs. Abd: Abdomen was soft. Nontender. Less distended. Positive bowel sounds. Ext: No clubbing, cyanosis. Slight edema. 2+ DP pulses bilaterally. Neuro: Patient is alert. Cranial nerves 2-12 are intact. Speech is clear. DS: Data Data Completed and Pending Completed studies during hospitalization:
--- NOTE | 2024-01-02 14:52 | WPDGIPROGNO ---
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: Code(s): K75.81 - Nonalcoholic steatohepatitis (BACON); K74.60 - Unspecified cirrhosis of liver Status: Acute Assessment and Plan: supportive care meld score on admission 22, will need follow-up with hepatology- send referral to either [facility] or [facility], eventually may need liver transplant evaluation 2g na diet, nutrition support previous work up with elevated TAB but negative actin IgG, LKM and ama (2) Ascites: Qualifiers: Ascites type: other type Qualified Code(s): R18.8 - Other ascites Code(s): R18.8 - Other ascites Status: Acute Assessment and Plan: s/p paracentesis no sbp lasix, ? allergic to aldactone 2g na diet better after more fluid was removed (3) Macrocytic anemia: Code(s): D53.9 - Nutritional anemia, unspecified Status: Acute (4) Thrombocytopenia: Code(s): D69.6 - Thrombocytopenia, unspecified Status: Acute Subjective Date/time seen: 01/02/24 14:52 Interval history: she had another paracentesis and 4 L removed, feeling better today and she is going home today Review of Systems Review of Systems: All systems reviewed & are unremarkable except as noted in HPI and below Exam Const: General: comfortable and no acute distress Other: chronically ill HENMT: Face/Nose/Sinus: Normal nares present Eyes: General: appearance normal, both eyes and all related structures Sclera: scleral abnormality (icteric) Neck: Neck: supple Resp: Auscultation: clear to auscultation bilaterally Cardio: Rate: regular rate Rhythm: regular rhythm GI: Inspection: non-distended GI Palp: Yes Soft to palpation and No Tenderness to palpation present (GI) Other: + ascites Skin: General skin exam: no rashes or lesions noted Neuro: Speech: normal speech Motor exam (neuro): 5/5 motor strength present throughout Extrem: General: pedal edema Psych: Mental Status: mental status grossly normal Objective Data Vital Signs Vital Signs: Vital Signs - 24 hr 01/01/24 20:52 01/01/24 21:35 01/01/24 21:32 Temperature 97.3 F L Pulse Rate 74 Respiratory Rate 16 Blood Pressure 117/60 Pulse Oximetry 96 96 Oxygen Delivery Room Air Room Air 01/02/24 06:00 01/02/24 09:00 01/02/24 11:42 Temperature 98.4 F Pulse Rate 91 Respiratory Rate 22 H Blood Pressure 99/57 L 107/55 L Pulse Oximetry 94 Oxygen Delivery Room Air 01/02/24 09:03 01/02/24 14:00 Temperature 97.9 F Pulse Rate 90 Respiratory Rate 16 Blood Pressure 101/57 L Pulse Oximetry 93 Oxygen Delivery Room Air Intake/Output Intake/Output: Intake & Output 12/30/23 12/31/23 01/01/24 01/02/24 23:59 23:59 23:59 23:59 Intake Total 1594 1284 1818 940 Output Total 5300 4100 Balance -3706 1284 -2282 940 Meds/Results Medications: Active Medications Generic Name Dose Route Start Last Admin Trade Name Freq PRN Reason Stop Dose Admin Ferrous Sulfate 325 mg 01/02/24 08:00 01/02/24 09:03 Ferrous Sulfate [address] PO 325 mg BIDWM LENNY Administration Furosemide 40 mg 12/31/23 09:00 01/02/24 09:05 Furosemide 40 Mg Tablet PO 40 mg DAILY LENNY Administration Lactulose 20 gm 12/30/23 17:00 01/02/24 13:05 Lactulose 20 Gm/30 Ml Udc PO Not Given TID LENNY Levothyroxine Sodium 200 mcg 12/31/23 06:30 01/02/24 05:47 Levothyroxine Sodium 100 Mcg Tablet PO 200 mcg DAILY@0630 LENNY Administration Ondansetron HCl 4 mg 12/31/23 21:05 12/31/23 21:16 Ondansetron Hcl Odt 4 Mg Tablet PO 4 mg Q6H PRN Administration Nausea And Vomiting Oxycodone HCl 5 mg 12/30/23 15:58 Oxycodone Hcl (*Crx) 5 Mg Tab Ir PO Q4H PRN Pain Rated 5 or more Pantoprazole Sodium 40 mg 12/30/23 13:45 01/02/24 09:03 Pantoprazole 40 Mg Tablet PO 40 mg DAILY LENNY Administration Radiology Results: ITS Impressions
[2024-01-02 18:59] LABS: Albumin Peritoneal Fluid 0.7 g/dL
[2024-01-03 05:08] LABS: Total Protein Peritoneal Fluid <3.0 g/dL
[2024-01-12 14:14] LABS: Alpha Fetoprotein Tumor Marker 3.4 ng/mL
== END 2024-01-02 15:05 | disposition home or self-care (01) | DRG 442 ==
LOC: ANHED 22:41 → ANH3MED 22:59
PROVIDERS: Nurse Practitioner Family; Nurse Practitioner Gerontology; Physician Assistant; Admitting Provider Internal Medicine; Emergency Provider Emergency Medicine; PCP Internal Medicine; Visit Provider Student in an Organized Health Care Education/Training Program
DX: K75.81 Nonalcoholic steatohepatitis (NASH) (principal); E87.1 Hypo-osmolality and hyponatremia; K76.6 Portal hypertension; R18.8 Other ascites; K72.90 Hepatic failure, unspecified without coma; K74.60 Unspecified cirrhosis of liver; D69.6 Thrombocytopenia, unspecified; D53.9 Nutritional anemia, unspecified; E87.6 Hypokalemia; E06.3 Autoimmune thyroiditis; F10.90 Alcohol use, unspecified, uncomplicated; Z87.891 Personal history of nicotine dependence; Z91.199 Patient's noncompliance with other medical treatment and regimen due to unspecified reason
CPT/HCPCS: 36415; 49083; 71046; 74177; 80053; 81001; 82042; 82105; 82140; 82607; 82746; 83540; 83550; 83690; 84157; 85025; 85027; 85055; 85610; 85652; 85730; 86140; 87070; 87075; 87086; 87088; 87205; 88108; 88305; 89051; 93005; 96374; 97161; 99285; A9270; G0378; J2270; Q9967

== ENCOUNTER 2024-01-04 18:44 | Inpatient (IN) | payer BC, SELFPAY ==
[2024-01-04] VITALS (10 sets, daily range): BP systolic 97–128; BP diastolic 61–79; PULSE 93–115; RESP 11–19; TEMP 37.3; O2SAT 93–98
--- NOTE | ~2024-01-04 | US_ITS ---
EXAMINATION: US paracentesis abd w/image DATE: 01/05/2024 10:33 INDICATION: Ascites. TECHNIQUE: The procedure and its risks, benefits, and alternatives were discussed with the patient. P otential risks discussed included bleeding and infection. The skin was prepped and draped in sterile fashion. 1% lidocaine was used for local anesthesia. Under ultrasound guidance, a 5 Fr catheter with trochar was advanced into the ascites in the left lower quadrant. Fluid was aspirated. The catheter w as removed, and a dressing was applied. There were no immediate complications. FINDINGS: Ultrasound images demonstrate ascites and the catheter within the fluid. IMPRESSION: 1. Successful ultrasound-guided paracentesis yielding 3800 mL of yellow fluid. Reviewed, dictated and finalized at location A.
--- NOTE | ~2024-01-04 | XR_ITS ---
EXAMINATION: XR chest 2V Exam Date/Time: 01/04/2024 19:50 CDT HISTORY: dyspnea Comparison: None. RESULT: Lines, tubes, and devices: Cholecystectomy clips. Lungs and pleura: Mild bilateral peripheral lower lung reticular opacities. Cardiomediastinal silhouette: Stable. Other: No acute osseous or upper abdominal finding. IMPRESSION: Mild interstitial edema. Reviewed, dictated and finalized at location K. IMPRESSION: Mild interstitial edema.
--- NOTE | ~2024-01-04 | CT_ITS ---
Non-contrast CT scan of the Abdomen and Pelvis Clinical indication: Abdominal pain, fever Technique: 2.5 mm axial scans were obtained through the abdomen and pelvis without intravenous or or al contrast. Dose reduction technique was used on this scan by utilizing automated exposure control a nd iterative reconstruction technique. The dose-length product (DLP) was 1230.17 mGy-cm. COMPARISON: 12/29/2023 Findings: Images through the lung bases reveal no abnormalities. Liver small, with micronodular contour. Spleen is enlarged, measuring 14.6 cm in length. Cholecystect nicole clips are present. The right kidney, pancreas, and adrenals appear normal. 11 mm nonobstructing l eft renal stone present. There is no aortic aneurysm. There is no evidence of bowel obstruction. Extensive infiltrative change in the mesentery probably re presents mesenteric edema. Images through the pelvis were performed. Urinary bladder unremarkable. No pelvic mass seen. Large am ount of abdominopelvic ascites present. Impression: Cirrhotic liver with associated splenomegaly and large amount of abdominopelvic ascites. Probable inf iltrative mesenteric edema rather than peritoneal carcinomatosis, although the latter is difficult to completely exclude radiographically. 11 mm nonobstructing left renal stone. Reviewed, dictated and finalized at location . Impression: Cirrhotic liver with associated splenomegaly and large amount of abdominopelvic ascites. Probable infiltrative mesenteric edema rather than peritoneal carcino matosis, although the latter is difficult to completely exclude radiographicall y. 11 mm nonobstructing left renal stone.
--- NOTE | 2024-01-04 18:58 | ECG_ITS ---
Test Date: 2024-01-04 20:23:10 Measurements Intervals [place] Rate: 94 P: 35 GA: 169 QRS: -51 QRSD: 113 T: 62 QT: 402 QTc: 505 Interpretive Statements SINUS RHYTHM PATTERN CONSISTENT WITH PULMONARY DISEASE LEFT ANTERIOR FASCICULAR BLOCK [QRS AXIS <= -45, QR IN I, RS IN II] Poor R wave progression Compared to ECG 12/29/2023 20:20:40 Left anterior fascicular block now present Right-axis deviation no longer present Electronically Signed On 01-04-2024 21:15:31 CDT by Davis Benson M.D.
--- NOTE | 2024-01-04 19:00 | ED.SOB ---
HPI - SOB/Dyspnea General Chief Complaint: Shortness of Breath/Dyspnea <Jamee Obrien PA-C - Last Filed: 01/05/24 02:10> Stated Complaint: dyspnea <Jamee Obrien PA-C - Last Filed: 01/05/24 02:10> Time Seen by Provider: 01/04/24 20:39 <Jamee Obrien PA-C - Last Filed: 01/05/24 02:10> Focused HPI: 53-year-old female with history of cirrhosis secondary to BACON, hypothyroidism, esophageal varices presents to emergency department for shortness of breath, lightheadedness and frequent falls. Patient was discharged from our hospital on 01/02/2024 after admission for shortness of breath and abdominal fullness. She underwent a paracentesis which drained 4.1 L. she states she noticed some abdominal fullness today and believes this is causing her shortness of breath. She denies fever, abdominal pain. she does not have a leasing professional. She has not hit her head or lost consciousness. GENERAL: Well-appearing, well-nourished, and in no acute distress. HEAD: Normocephalic, atraumatic. CHEST: Clear to auscultation. ?No respiratory distress. HEART: Regular rate and rhythm.? NEURO: ?Alert and oriented x3. Patient screened in triage and initial orders placed.? ?Additional care and disposition to be based upon?diagnostic testing and treatment. <Jamee Obrien PA-C - Last Filed: 01/05/24 02:10> History of Present Illness HPI Narrative: Patient is a 53-year-old female who presents emergency department with chief complaint of abdominal pain fever. Patient reports history of cirrhosis reports she had a paracentesis done in the hospital several days ago the patient states that today she had a fever and reports she has had discomfort in her abdomen. <Gilbert Demarco MD - Last Filed: 01/05/24 02:39> Related Data Home Medications: Home Medications Medication Instructions Recorded Confirmed levothyroxine 200 mcg tablet 200 mcg PO DAILY 06/27/23 12/29/23 <AISHA Holden Last Filed: 01/05/24 02:10> Allergies/Adverse Reactions: Allergies Allergy/AdvReac Type Severity Reaction Status Date / Time spironolactone Allergy Intermediate Hives Verified 12/11/23 19:06 amoxicillin Allergy Hives Verified 12/11/23 19:06 latex Allergy Rash Verified 12/11/23 19:06 Penicillins Allergy Hives Verified 12/11/23 19:06 <Jamee Obrien PA-C - Last Filed: 01/05/24 02:10> Review of Systems Review of Systems: A 10 system review of systems was completed on the patient and is negative except for what is stated in the HPI. Nursing and ancillary documentation was reviewed. 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 Nicotine dependence, cigarettes, with other nicotine-induced disorders Portal hypertension Pulmonary edema SBP (spontaneous bacterial peritonitis) Thrombocytopenia <Jamee Obrien PA-C - Last Filed: 01/05/24 02:10> Surgical History Surgical History: Surgical History Abnormal findings on esophagogastroduodenoscopy (EGD) (~10/2023) with banding <Jamee Obrien PA-C - Last Filed: 01/05/24 02:10> Family History Family History: Family History Sibling Alcohol abuse Brother Mother FH: kidney cancer <Jamee Obrien PA-C - Last Filed: 01/05/24 02:10> Social History Social History: Social History Social History: Patient currently lives with her dad. She has 1 child at the daughter and she states that the daughter wilcox
[2024-01-04 21:21] LABS: Basophils Absolute Auto 0.1 K/mm3 (0.0-0.1); Basophils Percent Auto 1.4 % (0.2-1.2); Eosinophils Absolute Auto 0.2 K/mm3 (0-0.3); Eosinophils Percent Auto 2.8 % (0-4.4); Hematocrit 31.3 % (37.0-47.0); Hemoglobin 9.9 g/dL (12.0-15.0); Immature Granulocyte Absolute 0.01 K/mm3 (0.00-0.031); Immature Granulocyte Percent A 0.2 % (0-0.5); Lymphocytes Percent Auto 22.6 % (18.3-44.2); Mean Corpuscular HGB Conc 31.6 g/dl (32-36); Mean Corpuscular Hemoglobin 32.5 pg (26-34); Mean Corpuscular Volume 102.6 fl (80-100); Mean Platelet Volume 10.5 fl (7.4-10.4); Monocytes Absolute Auto 0.8 K/mm3 (0.1-0.6); Monocytes Percent Auto 14.1 % (2.6-8.5); Neutrophils Absolute Auto 3.4 K/mm3 (1.3-6.7); Neutrophils Percent Auto 58.9 % (45.5-73.1); Platelet Count Result 111 k/mm3 (150-375); Red Blood Count 3.05 M/mm3 (4.2-5.4); Red Cell Distribution Width 19.9 % (11.5-14.5); White Blood Count 5.8 K/mm3 (4.5-10.0)
[2024-01-04 21:24] LABS: Ammonia 53 umol/L (9-30)
[2024-01-04 21:32] LABS: Alanine Aminotransferase 22 U/L (6-35); Albumin Level 2.9 g/dL (3.5-5.1); Alkaline Phosphatase 179 U/L (38-126); Anion Gap 7 mmol/L (4-12); Aspartate Amino Transferase 50 U/L (14-36); Bilirubin,Total 3.8 mg/dL (0.2-1.3); Blood Urea Nitrogen 13 mg/dL (7-17); Calcium 7.9 mg/dL (8.4-10.2); Carbon Dioxide 22 mmol/L (22-30); Chloride 104 mmol/L (98-107); Estimated Glomerular Filt Rate > 60; Glucose 107 mg/dL (65-110); INR 1.8; Lactic Acid Reflex 1.9 mmol/L (0.7-2.0); Lipase 157 U/L (23-300); Magnesium 1.9 mg/dL (1.6-2.3); Potassium 3.9 mmol/L (3.4-5.0); Prothrombin Time 21.2 Seconds (11.1-14.7); Sodium 133 mmol/L (137-145)
[2024-01-04 21:33] LABS: Partial Thromboplastin Time 37.8 Seconds (22.3-36.8)
[2024-01-04 21:43] LABS: NT Pro B Type Natriuretic Pept 204 pg/mL (19.9-100); Troponin I < 0.012 ng/mL (0.000-0.034)
--- NOTE | 2024-01-04 22:30 | PC.NURSE ---
mulitple attempts have been made to initiate iv access.
--- NOTE | 2024-01-04 23:20 | PM.IMHP ---
H&P: HPI History of Present Illness Date/Time: 01/04/24 23:20 Chief Complaint: ABDOMINAL PAIN Narrative: THIS IS A 53-YEAR-OLD FEMALE WITH PAST MEDICAL HISTORY SIGNIFICANT FOR HEPATIC CIRRHOSIS. PATIENT WAS JUST RECENTLY DISCHARGED AFTER PARACENTESES WITH EXTRACTION OF 4 L. COMES BACK TODAY TO THE EMERGENCY ROOM DUE TO A TEMPERATURE OF 99? F AND ABDOMINAL PAIN. PRELIMINARY WORKUP HAS BEEN ESSENTIALLY NONREVEALING. PATIENT HAS BEEN PLACED IN OBSERVATION FOR FURTHER EVALUATION MANAGEMENT AND TREATMENT. EXAMINATION: XR chest 2V Exam Date/Time: 01/04/2024 19:50 CDT HISTORY: dyspnea Comparison: None. RESULT: Lines, tubes, and devices: Cholecystectomy clips. Lungs and pleura: Mild bilateral peripheral lower lung reticular opacities. Cardiomediastinal silhouette: Stable. Other: No acute osseous or upper abdominal finding. IMPRESSION: Mild interstitial edema. 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 She has 1 child at the daughter and she states that the daughter had recently moved. She also states she did have her primary however primary recently left. She does wish to be a full code. All code status is were reviewed with the patient including DNR, DNI current pressors, BiPAP and CPAP. Patient wishes to be a full code at that time. She also likes her friend Franko to be her surrogate. Smoking packs per day: 0.5 Smoking cigarettes per day: 10.0 Years smoked: 15 Smoking pack-years: 7.50 Smoking status: Former smoker Tobacco type: cigarettes Smoking end date: 10/01/23 Alcohol intake: former Substance use: never Substance use type: does not use Do You Feel Safe in your Home?: Yes Lack of Transportation: No Lack of Food: Never True Current Housing: I Have Housing Concerned About Future Housing: No Difficulty Paying Gas/Electric Bills: No Difficulty Paying for Meds: No Currently Unemployed: No Education: Associate Degree Difficulty w/ Childcare or Family Care: No Living arrangements: with family Occupation/Education: other Additional occupation/education comments: disability Gender identity (if verbalized by the patient): Female Sexual Orientation (if Verbalized by the Patient): Straight or Heterosexual Spiritual care concerns: No Agree to blood products: Yes Meds Home Medications and Allergies Home Medications Medication Instructions Recorded Confirmed Type levothyroxine 200 mcg tablet 200 mcg PO DAILY 06/27/23 01/05/24 History pantoprazole 40 mg tablet,delayed 40 mg PO DAILY #30 tabs 07/14/23 01/05/24 Rx release furosemide 40 mg tablet (Lasix) 40 mg PO DAILY 1 month #30 tabs 12/08/23 01/05/24 Rx ferrous sulfate 325 mg (65 mg 325 mg PO BIDWM #60 tabs 01/02/24 01/05/24 Rx iron) tablet,delayed release lactulose 10 gram/15 mL oral 10 g PO QID 01/05/24 01/05/24 History solution (Constulose) Allergies Allergy/AdvReac Type Severity Reaction Status Date / Time
[2024-01-05] VITALS (8 sets, daily range): BP systolic 108–133; BP diastolic 46–77; PULSE 65–87; RESP 12–22; TEMP 36.1–36.9; O2SAT 92–99; BMI 33.5
[2024-01-05] MEDS: ONDANSETRON INJ 4 MG/2 ML VIAL IV PUSH ×2 (00:38→04:35)
--- NOTE | 2024-01-05 01:44 | P.PCNBED_ITS ---
Procedures Central Line Placement Right Femoral: Central Line Date: 01/04/24 Central Line Time: 10:00 Consent: I have discussed with the patient and/or surrogate, the non-emergent placement of a central venous catheter, including its clinical necessity/indication and associated potential risks and complications. The patient and/or surrogate understand(s) and acknowledge(s) the need to proceed with central venous catheter insertion as an important element of the patient's clinical management. Time Out Performed: Yes Patient Position: supine Patient placed on monitor/pulse ox: Yes Provider Prep: mask, sterile gown, sterile gloves, Max. sterile barrier precautions, cap and hand hygiene with conventional soap/water or alcohol based hand rub Central line prep: 2% Chlorhexidine scrub Sterile US Technique with sterile gel/sterile probe covers: Yes Central line lumen inserted: triple [place]: 16 Length (cm): 16 Depth of Insertion (cm): 16 Post Procedure: sutured in place, good blood return, all ports aspirated, flushed, capped, transparent dressing and aseptic technique maintained throughout procedure Patient tolerated procedure: well Complications: none
--- NOTE | 2024-01-05 02:56 | PC.NURSE ---
pt states if you're going to need urine good luck, it's not gonna happen.
--- NOTE | 2024-01-05 03:17 | PC.NURSE ---
Assumed care of pt after receiving report from JAYESH Mccoy. @ [phone]
[2024-01-05] MEDS: LEVOTHYROXINE SODIUM 100 MCG TABLET 200 MCG PO (04:41)
--- NOTE | 2024-01-05 08:06 | PM.IMPN ---
Progress Note: A&P Assessment and Plan (1) SBP (spontaneous bacterial peritonitis): Code(s): K65.2 - Spontaneous bacterial peritonitis Status: Acute Assessment and Plan: - Recent paracentesis, now having chills and report of fever. - Currently on rocephin which will continue. - Paracentesis pending. - Blood cx pending. - Procal in the am. (2) Abdominal pain: Code(s): R10.9 - Unspecified abdominal pain Status: Acute Assessment and Plan: - Pain stable, not worsening. Mildly ttp diffusely. 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 - Recently started on lasix and lactulose and has been taking per the patient. - Will need to have hepatology f/u as an outpatient, information recently given. - 2gm Na diet (4) Thrombocytopenia: Code(s): D69.6 - Thrombocytopenia, unspecified Status: Acute Assessment and Plan: - Likely related to liver disease. Stable hgb. (5) Portal hypertension: Code(s): K76.6 - Portal hypertension Status: Acute Assessment and Plan: - Stable. (6) Nicotine dependence, cigarettes, with other nicotine-induced disorders: Code(s): F17.218 - Nicotine dependence, cigarettes, with other nicotine-induced disorders Status: Acute Assessment and Plan: - NRT with patch prn. (7) Anemia: Code(s): D64.9 - Anemia, unspecified Status: Acute Assessment and Plan: - Cont. oral iron. Plan Nasreen feels abdominal fullness and mild shortness of breath this morning. She is pending a paracentesis this am - blood cx are pending. Pending fluid analysis and culture results, if doing well possible discharge tomorrow. Time Spent With Patient Time with patient: Greater than 35 minutes Subjective Date/time seen: 01/05/24 08:06 Interval history: Nasreen states her symptoms are about the same. Has not felt feverish. Has had some chills in the last few days. Review of Systems Review of Systems: Patient denies objective fevers, is a good historian. + chills. + mild diffuse abdominal pain. + stable/mild shortness of breath. All systems reviewed & are unremarkable except as noted in HPI and below ROS unobtainable: Yes other Exam Narrative: GENERAL APPEARANCE: Appears to be in no acute distress. HEAD: normocephalic atraumatic EYES: PERRL, EOMI. Vision grossly intact. ENT: Hearing grossly intact, no nasal discharge NECK: Neck supple, trachea midline. CARDIAC: Normal S1/S2. Rhythm is regular. No murmurs, rubs, or gallops. No cyanosis or pallor. Extremities are warm and well perfused. LUNGS: Clear to auscultation without rales, rhonchi, wheezing or diminished breath sounds. Respirations even and unlabored. ABDOMEN: BS positive x 4 quadrants. Soft, mild distension, ttp diffusely, reports mild pain. No guarding or rebound. MSK: No joint tenderness/swelling, fair strength in all extremities. PERIPHERAL VASCULAR: Peripheral pulses palpable. Normal perfusion, cap refill <2 seconds. 1+ blle edema. NEURO: Follows commands. No focal deficits. No asterixis. Fully oriented. SKIN: [place] without lesions or eruptions. PSYCH: Stable, no paranoia or delusional thinking. Objective Data Vital Signs Vital Signs: Vital Signs - 24 hr 01/04/24 18:56 01/04/24 23:30 01/04/24 20:18 Temperature 99.2 F Pulse Rate 115 H 93 Respiratory Rate 19 11 L Blood Pressure 106/61 Pulse Oximetry 93 93 Oxygen Delivery Room Air 01/04/24 20:19 01/04/24 20:30 01/04/24 20:31 Temperature Pulse Rate 99 97 101 H Respiratory Rate 15 12 15 Blood Pressure 107/70 97/66 L Pulse Oximetry 93 93 94 Oxygen Delivery 01/04/24 20:45 01/04/24 20:46 01/04/24 21:00 [place]
[2024-01-05] MEDS: FERROUS SULFATE 325 MG TABLET DR PO ×2 (08:45→16:36)
[2024-01-05] MEDS: FUROSEMIDE 40 MG TABLET PO (08:46)
[2024-01-05] MEDS: PANTOPRAZOLE 40 MG TABLET PO (08:47)
[2024-01-05] MEDS: LACTULOSE 20 GM/30 ML UDC 10 GM PO ×4 (08:48→21:37)
[2024-01-05] MEDS: cefTRIAXone 2 GM/NS 100 ML 2 GM/100 ML BAG IVPB (10:46)
--- NOTE | 2024-01-05 11:57 | PC.NURSE ---
On 01/05/24, the student, [Umesh Ram ], provided care and completed [facility] documentation on this patient. I have reviewed the student's documentation and agree with the findings.
--- NOTE | 2024-01-05 11:58 | PC.NURSE ---
On 01/05/24, the student, [Umesh Serrano ], provided care and completed [facility] documentation on this patient. I have reviewed the student's documentation and agree with the findings.
[2024-01-05] MEDS: VANCOMYCIN 1,250 MG/NS 250 ML 1,250 MG/250 ML BAG 166.67 MG IVPB ×2 (12:10→14:19)
[2024-01-05 16:50] LABS: Appearance Urine Clear (Clear); Blood Urine Negative (Negative); Color Urine Yellow (Yellow); Glucose Urine UA Negative (Negative); Ketones Urine Negative (Negative); Nitrate Urine Negative (Negative); Protein Urine Negative (Negative); pH Urine 5.5 (5.0-9.0)
[2024-01-05 16:51] LABS: Add Urine Microscopic? NO; Bilirubin Urine Negative (Negative); Leukocyte Esterase Ur Negative LEU/UL (Negative)
[2024-01-05] MEDS: VANCOMYCIN 1,500 MG/NS 500 ML 1,500 MG/500 ML BAG 250 MG IVPB (23:22)
[2024-01-06] MEDS: LEVOTHYROXINE SODIUM 100 MCG TABLET 200 MCG PO (05:45)
[2024-01-06 05:57] VITALS: BP 95/47; PULSE 84; RESP 16; TEMP 36.4; O2SAT 90
[2024-01-06 08:17] LABS: Alanine Aminotransferase 20 U/L (6-35); Albumin Level 2.5 g/dL (3.5-5.1); Alkaline Phosphatase 99 U/L (38-126); Anion Gap 10 mmol/L (4-12); Aspartate Amino Transferase 43 U/L (14-36); Blood Urea Nitrogen 13 mg/dL (7-17); Calcium 7.8 mg/dL (8.4-10.2); Carbon Dioxide 19 mmol/L (22-30); Chloride 105 mmol/L (98-107); Estimated CRCL calculation 96 ml/min; Estimated Glomerular Filt Rate > 60; Glucose 129 mg/dL (65-110); Potassium 3.3 mmol/L (3.4-5.0); Sodium 134 mmol/L (137-145)
[2024-01-06 08:29] LABS: Hematocrit 29.1 % (37.0-47.0); Hemoglobin 8.8 g/dL (12.0-15.0); Immature Platelet Fraction Pct 2.2 % (0.9-11.2); Mean Corpuscular HGB Conc 30.2 g/dl (32-36); Mean Corpuscular Hemoglobin 32.1 pg (26-34); Mean Corpuscular Volume 106.2 fl (80-100); Mean Platelet Volume 10.3 fl (7.4-10.4); Platelet Count Result 88 k/mm3 (150-375); Red Blood Count 2.74 M/mm3 (4.2-5.4); Red Cell Distribution Width 19.1 % (11.5-14.5); White Blood Count 4.1 K/mm3 (4.5-10.0)
[2024-01-06 08:30] LABS: Procalcitonin 0.1 ng/mL
[2024-01-06] MEDS: FERROUS SULFATE 325 MG TABLET DR PO ×2 (08:41→17:32)
[2024-01-06] MEDS: FUROSEMIDE 40 MG TABLET PO (08:41)
[2024-01-06] MEDS: PANTOPRAZOLE 40 MG TABLET PO (08:42)
[2024-01-06] MEDS: LACTULOSE 20 GM/30 ML UDC 10 GM PO ×2 (08:42→12:47)
--- NOTE | 2024-01-06 09:33 | PM.IMPN ---
Progress Note: A&P Assessment and Plan (1) SBP (spontaneous bacterial peritonitis): Code(s): K65.2 - Spontaneous bacterial peritonitis Status: Acute Assessment and Plan: - Recent paracentesis, now having chills and report of fever. - Currently on Rocephin which will continue. - Paracentesis 01/05 removed 3.8 L. - T-bili elevated today 5.0, blood pressures on the lower side, will give albumin 25% x 2 doses. - start midodrine 10 mg TID - No cultures were sent from paracentesis unfortunately. I called the lab to see if any fluid was left over. 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 - Recently started on Lasix and lactulose and has been taking per the patient. - she reports no bowel movement in a few days. Increased her lactulose dose to 20 gram QID to titrate for 3-5 bowel movements a day. - would benefit from spironolactone but supposedly has an allergy. Patient does not remember this being an allergy. She only thinks she is allergic to antibiotics. She is willing to try this medication. Allergy reaction was reported as hives. - starting spironolactone to help with ascites - Midodrine TID will help with her low blood pressures - If blood pressure is stable with addition of spironolactone she would benefit from nadolol for portal htn - Will need to have hepatology f/u as an outpatient, information recently given. - 2gm Na diet (3) Abdominal pain: Code(s): R10.9 - Unspecified abdominal pain Status: Acute Assessment and Plan: - Pain stable, not worsening. Mildly ttp diffusely. (4) Thrombocytopenia: Code(s): D69.6 - Thrombocytopenia, unspecified Status: Acute Assessment and Plan: - Likely related to liver disease. Stable hgb. (5) Portal hypertension: Code(s): K76.6 - Portal hypertension Status: Acute Assessment and Plan: - Stable. (6) Nicotine dependence, cigarettes, with other nicotine-induced disorders: Code(s): F17.218 - Nicotine dependence, cigarettes, with other nicotine-induced disorders Status: Acute Assessment and Plan: - NRT with patch prn. (7) Anemia: Code(s): D64.9 - Anemia, unspecified Status: Acute Assessment and Plan: - Cont. oral iron. Subjective Date/time seen: 01/06/24 09:33 Interval history: No acute events overnight. Patient is resting in bed and states she feels weak, tired, and has persistent abdominal pain. She has not had a bowel movement in a couple of days. Plan to increse her lactulose for drowsiness. Review of Systems Review of Systems: All systems reviewed & are unremarkable except as noted in HPI and below Exam Narrative: General: appears comfortable, in no acute distress Respiratory: breathing is unlabored with even chest rise/fall, lungs are clear without wheezing, rhonchi, and crackles Cardiovascular: Rate and rhythm regular, normal s1s2, no murmur Abdomen: Soft, round, distended, active bowel sounds, umbilical hernia Extremities: No cyanosis, + to pitting edema bilateral lower extremities, clubbing. Pulses 2/2. Neuro: A&O x 4, delayed responses but appropriate Skin: Warm, dry, intact, Jaundice with abdominal striae Objective Data Vital Signs Vital Signs: Vital Signs - 24 hr 01/05/24 10:45 01/05/24 11:45 01/05/24 14:00 Temperature 97.0 F L 97.2 F L Pulse Rate 65 67 Respiratory Rate 18 18 Blood Pressure 121/50 L 108/46 L Pulse Oximetry 99 96 Oxygen Delivery Room Air 01/05/24 21:06 01/06/24 05:57 Temperature 98.5 F 97.6 F Pulse Rate 87 84 Respiratory Rate 18 16 Blood Pressure 110/52 L 95/47 L Pulse Oximetry 98 90 Oxygen Delivery Intake/Output In
[2024-01-06] MEDS: ALBUMIN HUMAN 25% 25 GM/100 ML 100 ML IVPB ×2 (12:48→17:32)
[2024-01-06] MEDS: POTASSIUM CHLORIDE 20 MEQ ER TABLET 40 MEQ PO (12:59)
[2024-01-06 14:00] VITALS: BP 112/48; PULSE 88; RESP 22; TEMP 36.4; O2SAT 97
[2024-01-06] MEDS: cefTRIAXone 2 GM/NS 100 ML 2 GM/100 ML BAG IVPB (14:32)
[2024-01-06 15:57] LABS: MRSA (PCR) NOT DETECTED (NOT DETECTE)
[2024-01-06] MEDS: MIDODRINE HCL 10 MG TABLET PO (17:32)
[2024-01-06] MEDS: LACTULOSE 20 GM/30 ML UDC PO ×2 (17:32→20:01)
[2024-01-06] MEDS: ONDANSETRON INJ 4 MG/2 ML VIAL IV PUSH (19:55)
[2024-01-06 21:52] VITALS: BP 109/53; PULSE 87; RESP 18; TEMP 37.3; O2SAT 96
[2024-01-07] MEDS: LEVOTHYROXINE SODIUM 100 MCG TABLET 200 MCG PO (05:18)
[2024-01-07 06:00] VITALS: BP 101/57; PULSE 85; RESP 18; TEMP 36.7; O2SAT 97
[2024-01-07 08:56] LABS: Basophils Absolute Auto 0.1 K/mm3 (0.0-0.1); Basophils Percent Auto 1.6 % (0.2-1.2); Eosinophils Absolute Auto 0.4 K/mm3 (0-0.3); Eosinophils Percent Auto 7.3 % (0-4.4); Hemoglobin 8.2 g/dL (12.0-15.0); Immature Granulocyte Absolute 0.02 K/mm3 (0.00-0.031); Immature Granulocyte Percent A 0.4 % (0-0.5); Immature Platelet Fraction Pct 1.8 % (0.9-11.2); Lymphocytes Absolute Auto 1.03 K/mm3 (0.9-3.2); Lymphocytes Percent Auto 20.9 % (18.3-44.2); Mean Corpuscular HGB Conc 31.5 g/dl (32-36); Mean Corpuscular Hemoglobin 32.8 pg (26-34); Mean Platelet Volume 10.1 fl (7.4-10.4); Neutrophils Absolute Auto 2.5 K/mm3 (1.3-6.7); Neutrophils Percent Auto 49.8 % (45.5-73.1); Platelet Count Result 92 k/mm3 (150-375); Red Cell Distribution Width 19.1 % (11.5-14.5); White Blood Count 4.9 K/mm3 (4.5-10.0)
[2024-01-07 09:13] LABS: Alanine Aminotransferase 17 U/L (6-35); Albumin Level 2.6 g/dL (3.5-5.1); Alkaline Phosphatase 86 U/L (38-126); Anion Gap 6 mmol/L (4-12); Aspartate Amino Transferase 36 U/L (14-36); Bilirubin,Total 4.1 mg/dL (0.2-1.3); Blood Urea Nitrogen 12 mg/dL (7-17); Calcium 7.9 mg/dL (8.4-10.2); Carbon Dioxide 22 mmol/L (22-30); Chloride 105 mmol/L (98-107); Estimated CRCL calculation 96 ml/min; Estimated Glomerular Filt Rate > 60; Glucose 92 mg/dL (65-110); Magnesium 1.9 mg/dL (1.6-2.3); Potassium 3.3 mmol/L (3.4-5.0); Sodium 133 mmol/L (137-145)
[2024-01-07] MEDS: SPIRONOLACTONE 25 MG TABLET PO (09:18)
[2024-01-07] MEDS: MIDODRINE HCL 10 MG TABLET PO ×2 (09:18→13:22)
[2024-01-07] MEDS: FUROSEMIDE 40 MG TABLET PO (09:18)
[2024-01-07] MEDS: FERROUS SULFATE 325 MG TABLET DR PO (09:18)
[2024-01-07] MEDS: PANTOPRAZOLE 40 MG TABLET PO (09:18)
[2024-01-07] MEDS: LACTULOSE 20 GM/30 ML UDC PO ×2 (09:19→13:21)
--- NOTE | 2024-01-07 12:15 | PM.IMPN ---
Progress Note: A&P Assessment and Plan (1) SBP (spontaneous bacterial peritonitis): Code(s): K65.2 - Spontaneous bacterial peritonitis Status: Acute Assessment and Plan: - Recent paracentesis, now having chills and report of fever. - Currently on Rocephin which will continue. - Paracentesis 01/05 removed 3.8 L. - T-bili elevated today 4.1. Blood pressures on the lower side, received albumin 25% x 2 doses yesterday. - start midodrine 10 mg TID - No cultures were sent from paracentesis unfortunately. I called the lab to see if any fluid was left over. 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 - Recently started on Lasix and lactulose and has been taking per the patient. - she reports no bowel movement in a few days. Increased her lactulose dose to 20 gram QID to titrate for 3-5 bowel movements a day. - would benefit from spironolactone but supposedly has an allergy. Patient does not remember this being an allergy. She only thinks she is allergic to antibiotics. She is willing to try this medication. Allergy reaction was reported as hives. - starting spironolactone to help with ascites - Midodrine TID will help with her low blood pressures, blood pressure 101/57 this morning. - If blood pressure is stable with addition of spironolactone she would benefit from nadolol for portal htn - Will need to have hepatology f/u as an outpatient, information recently given. - 2gm Na diet (3) Abdominal pain: Code(s): R10.9 - Unspecified abdominal pain Status: Acute Assessment and Plan: - Pain stable, not worsening. Mildly ttp diffusely. (4) Thrombocytopenia: Code(s): D69.6 - Thrombocytopenia, unspecified Status: Acute Assessment and Plan: - Likely related to liver disease. Stable hgb. (5) Portal hypertension: Code(s): K76.6 - Portal hypertension Status: Acute Assessment and Plan: - Stable. (6) Nicotine dependence, cigarettes, with other nicotine-induced disorders: Code(s): F17.218 - Nicotine dependence, cigarettes, with other nicotine-induced disorders Status: Acute Assessment and Plan: - NRT with patch prn. (7) Anemia: Code(s): D64.9 - Anemia, unspecified Status: Acute Assessment and Plan: - Cont. oral iron. Subjective Date/time seen: 01/07/24 12:15 Interval history: Patient reports that she had a fever yesterday. Denies chest pain, palpitations, or shortness of breath. Patient reports that her abdomen is starting to feel a little jackson. Review of Systems Review of Systems: All systems reviewed & are unremarkable except as noted in HPI and below Exam Const: General: no acute distress Resp: Effort & Inspection: normal respiratory effort Auscultation: clear to auscultation bilaterally Cardio: Rate: regular rate Rhythm: regular rhythm GI: Inspection: distended GI Palp: Yes Soft to palpation Auscultation: normal bowel sounds Skin: General skin exam: no rashes or lesions noted Neuro: Other: A&O x4. Psych: Affect: normal affect Objective Data Vital Signs Vital Signs: Vital Signs - 24 hr 01/06/24 14:00 01/06/24 21:52 01/07/24 06:00 Temperature 97.5 F L 99.1 F 98.1 F Pulse Rate 88 87 85 Respiratory Rate 22 H 18 18 Blood Pressure 112/48 L 109/53 L 101/57 L Pulse Oximetry 97 96 97 Oxygen Delivery 01/07/24 08:00 Temperature Pulse Rate Respiratory Rate Blood Pressure Pulse Oximetry Oxygen Delivery Room Air Intake/Output Intake/Output: Intake & Output 01/04/24 01/05/24 01/06/24 01/07/24 23:59 23:59 23:59 23:59 Intake Total 600 672 340 Output Total 4200 Balance -0310 672 34
[2024-01-07] MEDS: cefTRIAXone 2 GM/NS 100 ML 2 GM/100 ML BAG IVPB (13:23)
[2024-01-07] MEDS: POTASSIUM CHLORIDE 20 MEQ ER TABLET 40 MEQ PO (13:24)
[2024-01-07 14:00] VITALS: BP 106/43; PULSE 75; RESP 18; TEMP 36.8; O2SAT 95
--- NOTE | 2024-01-07 19:57 | PC.NURSE ---
this RN and Geovanna RN talked to this patient who is wanting to leave AMA. patient is speaking rationally and states she wants to leave because we don't have a liver specialist here. Patient states she drove herself here, and wishes she had taken herself to a hospital in [place], but that she didn't want to drive that far at the time. RNs provided education and asked patient if she would be willing to stay until tomorrow to speak with the doctors about her plan of care and possibly to initiate a transfer. Patient was not interested in this and said she has already thought about it. Patient stated she would still like AMA forms.
--- NOTE | 2024-01-08 12:25 | PM.DS ---
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 Probable infiltrative mesenteric edema rather than peritoneal carcinomatosis, although the latter is difficult to completely exclude radiographically. 11 mm nonobstructing left renal stone. Chest X-ray: Mild interstitial edema. Paracentesis on 01/05 removed 3.8 liters. Total bilirubin was elevated at 5.0 and decreased to 4.1 prior to leaving AMA. Received Albumin 25% x 2 doses. Blood cultures no growth to date. Status at Discharge Overall status at discharge: patient is progressing back to baseline Time Spent with Patient Time attestation: Total time spent providing and/or coordinating discharge services: Exam Narrative: Patient left AMA in the evening around 8 pm. I had seen patient earlier in the day- see note. DS: Data Data Completed and Pending Labs on day of discharge: Preliminary micro results at discharge 01/05/24 09:29 Blood Culture - Preliminary Blood 01/05/24 09:21 Blood Culture - Preliminary Blood Discharge Plan Discharge Attending physician on discharge: Gilbert Sargent Consulting providers: Diana Gardner; Davis Benson; Luis M Kirby; Jamee Obrien; Kulwant Short V.; Lul Paez; Jamshid Shafer Discharging Clinician: Nisha Irby Anticipated Discharge Date/Time: 01/07/24 20:00 Patient Disposition: Left Against Medical Advice Patient Instructions: Pain Management (DC) Discharge Medications: No Action lactulose [Constulose] 10 gram/15 mL solution 10 g PO QID levothyroxine 200 mcg tablet 200 mcg PO DAILY pantoprazole 40 mg Tablet,Delayed Release (Dr/Ec) 40 mg PO DAILY Qty: 30 1RF furosemide [Lasix] 40 mg tablet 40 mg PO DAILY 30 Days Qty: 30 0RF ferrous sulfate 325 mg (65 mg iron) Tablet,Delayed Release (Dr/Ec) 325 mg PO BIDWM Qty: 60 0RF Date of admission: 01/07/24 15:03 Primary Care Provider: Bret Curran Admitting Provider: Fiorella Owens V. Attending physician on admission: Nisha Irby Condition: Improved Hospitalist MIPS Heart Failure (Exclusion) Patient has history of Heart Transplant or Left Ventricular Assistive Device?: No IF YES, STOP HERE Heart Failure (Qualifier) Patient has current or prior documentation of LVEF less than or equal to 40%, or mod/servere depressed LVSF?: No IF NO, STOP HERE
== END 2024-01-07 20:01 | disposition left against medical advice (07) | DRG 372 ==
LOC: ANHED 01-05 02:10 → ANH3MEDSUR 01-05 03:26
PROVIDERS: Nurse Practitioner Acute Care; Nurse Practitioner Family; Physician Assistant; Admitting Provider Internal Medicine; Emergency Provider Emergency Medicine; PCP Internal Medicine; Visit Provider Nurse Practitioner Family
DX: K65.2 Spontaneous bacterial peritonitis (principal); I85.10 Secondary esophageal varices without bleeding; K76.6 Portal hypertension; K75.81 Nonalcoholic steatohepatitis (NASH); K74.60 Unspecified cirrhosis of liver; D69.6 Thrombocytopenia, unspecified; D53.9 Nutritional anemia, unspecified; E06.3 Autoimmune thyroiditis; F10.90 Alcohol use, unspecified, uncomplicated; F17.210 Nicotine dependence, cigarettes, uncomplicated
CPT/HCPCS: 36415; 49083; 71046; 74176; 80053; 81003; 82140; 83605; 83690; 83735; 83880; 84145; 84484; 85025; 85027; 85055; 85610; 85730; 87040; 87641; 93005; 96365; 96366; 96367; 96375; 96376; 99285; A9270; G0378; J0696; J2405; J3370; P9047

== ENCOUNTER 2024-02-07 19:00 | Inpatient (IN) | payer BC, MEDICAID, SELFPAY ==
--- NOTE | ~2024-02-07 | XR_ITS ---
EXAMINATION: XR chest 2V Exam Date/Time: 02/07/2024 20:01 VESSEL LINER HISTORY: SOB Comparison: 01/04/2024. RESULT: Lines, tubes, and devices: Cholecystectomy clips. Lungs and pleura: Low volumes in the frontal view, with crowding. Mild diffuse reticular opacities. Cardiomediastinal silhouette: Stable. Other: No acute osseous or upper abdominal finding. IMPRESSION: Mild interstitial edema. Reviewed, dictated and finalized at location K. EL LINER IMPRESSION: Mild interstitial edema.
--- NOTE | ~2024-02-07 | US_ITS ---
EXAMINATION: US paracentesis abd w/image DATE: 02/09/2024 11:20 INDICATION: Ascites. TECHNIQUE: The procedure and its risks, benefits, and alternatives were discussed with the patient. P otential risks discussed included bleeding and infection. The skin was prepped and draped in sterile fashion. 1% lidocaine was used for local anesthesia. Under ultrasound guidance, a 5 Fr catheter with trochar was advanced into the ascites in the left lower quadrant. Fluid was aspirated. The catheter w as removed, and a dressing was applied. There were no immediate complications. FINDINGS: Ultrasound images demonstrate ascites and the catheter within the fluid. IMPRESSION: 1. Successful ultrasound-guided paracentesis yielding 4500 mL of dark yellow fluid. Reviewed, dictated and finalized at location A. POINTER IMPRESSION: 1. Successful ultrasound-guided paracentesis yielding 4500 mL of dark yellow f luid.
--- NOTE | ~2024-02-07 | CT_ITS ---
CT of the Abdomen and Pelvis: Indication: Abdominal pain Technique: 2.5 mm axial scans were obtained through the abdomen and pelvis following intravenous adm inistration of 100 cc of Omnipaque 350. Dose reduction technique was used on this scan by utilizing a utomated exposure control and iterative reconstruction technique. The dose-length product (DLP) was 1 590.78 mGy-cm. COMPARISON: 01/05/2024 Findings: Scans through the lung bases are unremarkable. Liver is somewhat small, with diffuse nodular contour, compatible with cirrhosis. No definite focal h epatic mass seen. Cholecystectomy clips are present. Spleen is enlarged, measuring 15.1 cm in length. There are probable esophageal and splenorenal varices. The pancreas, adrenals and right kidney are w ithin normal limits. 9 mm left renal stone present. No evidence of aortic aneurysm. No lymphadenopat hy. No bowel obstruction. Images through the pelvis were performed. There is a large amount of abdominopelvic ascites, with ass ociated mesenteric edema. There is a small to moderate fat-containing umbilical hernia with fluid in the hernia sac as well. Urinary bladder unremarkable. No adnexal mass evident. Impression: Cirrhosis of the liver with associated splenomegaly and large amount of abdominopelvic ascites, as we ll as probable esophageal and splenorenal varices. Small to moderate umbilical hernia containing fat and ascitic fluid. 9 mm nonobstructing left renal stone. Reviewed, dictated and finalized at [facility]. TER [employer] SPRAY Impression: Cirrhosis of the liver with associated splenomegaly and large amount of abdomin opelvic ascites, as well as probable esophageal and splenorenal varices. Small to moderate umbilical hernia containing fat and ascitic fluid. 9 mm nonobstructing left renal stone.
--- NOTE | ~2024-02-07 | US_ITS ---
EXAMINATION: US paracentesis abd w/image DATE: 02/12/2024 15:37 INDICATION: Ascites. TECHNIQUE: The procedure and its risks, benefits, and alternatives were discussed with the patient. P otential risks discussed included bleeding and infection. The skin was prepped and draped in sterile fashion. 1% lidocaine was used for local anesthesia. Under ultrasound guidance, a 5 Fr catheter with trochar was advanced into the ascites in the left lower quadrant. Fluid was aspirated. The catheter w as removed, and a dressing was applied. There were no immediate complications. FINDINGS: Ultrasound images demonstrate ascites and the catheter within the fluid. IMPRESSION: 1. Successful ultrasound-guided paracentesis yielding 3800 mL of yellow fluid. Reviewed, dictated and finalized at location A. ED [employer]
--- NOTE | 2024-02-07 19:14 | ECG_ITS ---
Test Date: 2024-02-07 19:21:48 Measurements Intervals [place] Rate: 95 P: 1 KS: 150 QRS: -47 QRSD: 116 T: 51 QT: 405 QTc: 509 Interpretive Statements SINUS RHYTHM LOW QRS VOLTAGE IN PRECORDIAL LEADS LEFT ANTERIOR FASCICULAR BLOCK ABNORMAL ECG Compared to ECG 01/04/2024 20:23:10 NO SIGNIFICANT CHANGE Electronically Signed On 02-08-2024 06:55:53 SALVAGE INSPECTOR by Glen Woodruff D.O.
[2024-02-07 19:18] VITALS: BP 126/74; PULSE 94; RESP 16; TEMP 37.1; O2SAT 97
[2024-02-07 19:39] LABS: Basophils Absolute Auto 0.1 K/mm3 (0.0-0.1); Basophils Percent Auto 1.7 % (0.2-1.2); Eosinophils Absolute Auto 0.2 K/mm3 (0-0.3); Eosinophils Percent Auto 5.7 % (0-4.4); Hematocrit 28.4 % (37.0-47.0); Hemoglobin 8.7 g/dL (12.0-15.0); Immature Granulocyte Absolute 0.02 K/mm3 (0.00-0.031); Immature Granulocyte Percent A 0.5 % (0-0.5); Lymphocytes Absolute Auto 0.97 K/mm3 (0.9-3.2); Lymphocytes Percent Auto 24.1 % (18.3-44.2); Mean Corpuscular HGB Conc 30.6 g/dl (32-36); Mean Corpuscular Hemoglobin 30.3 pg (26-34); Mean Platelet Volume 10.1 fl (7.4-10.4); Monocytes Absolute Auto 0.7 K/mm3 (0.1-0.6); Monocytes Percent Auto 16.7 % (2.6-8.5); Neutrophils Absolute Auto 2.1 K/mm3 (1.3-6.7); Neutrophils Percent Auto 51.3 % (45.5-73.1); Platelet Count Result 104 k/mm3 (150-375); Red Blood Count 2.87 M/mm3 (4.2-5.4); Red Cell Distribution Width 18.3 % (11.5-14.5)
[2024-02-07 19:52] LABS: Alanine Aminotransferase 20 U/L (6-35); Albumin Level 2.8 g/dL (3.5-5.1); Alkaline Phosphatase 132 U/L (38-126); Anion Gap 10 mmol/L (4-12); Aspartate Amino Transferase 47 U/L (14-36); Bilirubin,Total 4.4 mg/dL (0.2-1.3); Blood Urea Nitrogen 12 mg/dL (7-17); Calcium 7.9 mg/dL (8.4-10.2); Carbon Dioxide 21 mmol/L (22-30); Chloride 101 mmol/L (98-107); Estimated CRCL calculation 107 ml/min; Estimated Glomerular Filt Rate > 60; Glucose 119 mg/dL (65-110); Potassium 3.2 mmol/L (3.4-5.0); Sodium 132 mmol/L (137-145)
--- NOTE | 2024-02-07 20:45 | ED.SOB ---
HPI - SOB/Dyspnea General Chief Complaint: Shortness of Breath/Dyspnea <Sandra Carlisle PA-C - Last Filed: 02/08/24 01:00> Stated Complaint: SOB <AISHA Brantley Last Filed: 02/08/24 01:00> Time Seen by Provider: 02/07/24 20:00 <AISHA Brantley Last Filed: 02/08/24 01:00> Source: patient <AISHA Brantley Last Filed: 02/08/24 01:00> Mode of arrival: ambulatory <AISHA Brantley Last Filed: 02/08/24 01:00> Limitations: no limitations <AISHA Brantley Last Filed: 02/08/24 01:00> History of Present Illness HPI Narrative: This is a 53 year old female that presents to the ER for shortness of breath. Patient has history of cirrhosis. This has been an ongoing issue for her the last several months. Has not seen a GI specialist yet. Reports she had a paracentesis about a week ago at another hospital and has been having fevers and upper abdominal pain since. Reports shortness of breath and diffuse lower extremity edema. <Sandra Carlisle PA-C - Last Filed: 02/08/24 01:00> Related Data Home Medications: Home Medications Medication Instructions Recorded Confirmed levothyroxine 200 mcg tablet 200 mcg PO DAILY 06/27/23 02/08/24 calcium 600 mg (as carbonate)-vit 1 tablet PO DAILY 02/08/24 02/08/24 D3 10 mcg (400 unit)-minerals tablet mecobalamin (vitamin B12) 1,000 1,000 mcg PO DAILY 02/08/24 02/08/24 mcg chewable tablet (B12 Active) <AISHA Brantley Last Filed: 02/08/24 01:00> Allergies/Adverse Reactions: Allergies Allergy/AdvReac Type Severity Reaction Status Date / Time amoxicillin Allergy Hives Verified 02/08/24 01:28 latex Allergy Rash Verified 02/08/24 01:28 Penicillins Allergy Hives Verified 02/08/24 01:28 hydromorphone [From Dilaudid] AdvReac Itching Verified 02/08/24 03:42 <Sandra Carlisle PA-C - Last Filed: 02/08/24 01:00> Review of Systems Review of Systems: CONSTITUTIONAL: Reports fever GASTROINTESTINAL: Reports abdominal pain, nausea <Sandra Carlisle PA-C - Last Filed: 02/08/24 01:00> All systems reviewed & are unremarkable except as noted in HPI and below <Sandra Carlisle PA-C - Last Filed: 02/08/24 01:00> [facility] Past Medical History Medical History: Medical History Alcohol use TAB positive Colon cancer screening Decompensation of cirrhosis of liver Elevated liver enzymes Esophageal varices with bleeding Hypothyroidism 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 Nicotine dependence, cigarettes, with other nicotine-induced disorders Portal hypertension Pulmonary edema SBP (spontaneous bacterial peritonitis) Thrombocytopenia <Sandra Carlisle PA-C - Last Filed: 02/08/24 01:00> Surgical History Surgical History: Surgical History Abnormal findings on esophagogastroduodenoscopy (EGD) (~10/2023) with banding <Sandra Carlisle PA-C - Last Filed: 02/08/24 01:00> Family History Family History: Family History (Updated 02/08/24 @ 02:25 by Osorio Roman RN) Sibling Alcohol abuse Brother Mother FH: kidney cancer Cerebrovascular accident <Sandra Carlisle PA-C - Last Filed: 02/08/24 01:00> Social History Social History: Social History Social History: Patient currently lives with her dad. She has 1 child at the daughter and she states that the daughter had recently moved. She also states she did have her primary however primary recently left. She does wish to be a full code. All code status is were reviewed with the patient including DNR, DNI current pressors, BiPAP and CPAP. Patient wishes to be a full code at that time. She also likes her friend Franko to be her surrogate. Smoking packs per day: 0.25 Smoking cigarettes per day: 5.0 Years smoked: 15 Smoking pack-years: 3.75 Smoking status: Former smoker Tobacco type: cigarettes Smoking end date: 11/26/23 Alcohol intake: former Drinks per week: 4 Substance use: never Substance use type: does not use Do You Feel Safe in your Home?: Yes Lack of Transportation: No Lack of Food: Never True Current Housing: I Have Housing Concerned About Future Housing: No Difficulty Paying Gas/Electric Bills: No Difficulty Paying for Meds: No Currently Unemployed: No Education: Associate Degree Difficulty w/ Childcare or Family Care: No Living arrangements: with family Occupation/Education: other Additional occupation/education comments: disability Gender identity (if verbalized by the patient): Female Sexual Orientation (if Verbalized by the Patient): Straight or Heterosexual Spiritual care concerns: No Agree to blood products: Yes <Sandra Carlisle PA-C - Last Filed: 02/08/24 01:00> Exam Narrative: GENERAL: Chronically ill-appearing, in no acute distress. HEAD: Normocephalic, atraumatic. EYES: PERRLA and EOMI. scleral icterus ENT: Nares clear, no rhinorrhea or epistaxis. Mucous membranes moist. Oropharynx without tonsillar hypertrophy exudate or other lesions. Bilateral TMs pearly castillo non-bulging NECK: Supple. No adenopathy or masses. RESPIRATORY: Clear to auscultation. No wheezes, rales or rhonchi HEART: Regular rate and rhythm. No murmur heard. Normal peripheral pulses. ABDOMEN: Distended, normal active bowel sounds. EXTREMITIES: Normal range of motion. Bilateral 2+ pitting edema to the lower extremities SKIN: Warm, dry, no rash. NEURO: No focal deficits. Alert and oriented x3. PSYCH: Normal mood and affect <Sandra Carlisle PA-C - Last Filed: 02/08/24 01:00> Course Course Emergency Course: patient updated on workup and recommendation for admission <Sandra Carlisle PA-C - Last Filed: 02/08/24 01:00> NARCOTICS AND VICE DETECTIVE/PA Physician Supervision CASSANDRA discussed patient briefly with me and I heard CASSANDRA discuss patient with hospitalist for admission. I was available in the emergency department for consultation but did not personally examine this patient and was not otherwise involved in their direct care. <Yaneli Brown MD - Last Filed: 02/08/24 17:54> Consultations Consultation #1: spoke with hospitalist about patient and workup who accepts admission <Sandra Carlisle PA-C - Last Filed: 02/08/24 01:00> Date: 02/08/24 <Sandra Carlisle PA-C - Last Filed: 02/08/24 01:00> Vital Signs Vital signs: Vital Signs Temperature 98.7 F 02/07/24 19:18 Pulse Rate 94 02/07/24 19:18 Respiratory Rate 16 02/07/24 19:18 Blood Pressure 126/74 02/07/24 19:18 Pulse Oximetry 97 02/07/24 19:18 Oxygen Delivery Room Air 02/07/24 19:18 Temperature 98.7 F 02/08/24 16:00 Pulse Rate 86 02/08/24 16:00 Respiratory Rate 14 02/08/24 16:00 Blood Pressure 123/74 02/08/24 16:00 Pulse Oximetry 96 02/08/24 16:00 Oxygen Delivery Nasal Cannula 02/08/24 08:00 Oxygen Flow Rate 2 02/08/24 08:00 <Sandra Carlisle PA-C - Last Filed: 02/08/24 01:00> Vital Signs Temperature 98.7 F 02/07/24 19:18 Pulse Rate 94 02/07/24 19:18 Respiratory Rate 16 02/07/24 19:18 Blood Pressure 126/74 02/07/24 19:18 Pulse Oximetry 97 02/07/24 19:18 Oxygen Delivery Room Air 02/07/24 19:18 Temperature 98.7 F 02/08/24 16:00 Pulse Rate 86 02/08/24 16:00 Respiratory Rate 14 02/08/24 16:00 Blood Pressure 123/74 02/08/24 16:00 Pulse Oximetry 96 02/08/24 16:00 Oxygen Delivery Nasal Cannula 02/08/24 08:00 Oxygen Flow Rate 2 02/08/24 08:00 <Yaneli Brown MD - Last Filed: 02/08/24 17:54> MDM - SOB/Dyspnea MDM Narrative Medical decision making narrative: patient presents to the emergency department for abdominal pain, shortness of breath. History of cirrhosis. A paracentesis 1 week ago, has been worsening since. Reporting fevers. She is afebrile here. Oxygen saturation is normal on room air. Cbc appears stable. Metabolic panel with mild hypokalemia, evidence of patient's cirrhosis influenza, RSV and COVID screens are negative. Initial lactic acid elevated, this normalized. CT abdomen pelvis shows large amount of ascites. patient updated on workup and recommendation for admission. spoke with hospitalist about patient and workup who accepts admission. Ultrasound-guided paracentesis ordered <Sandra Carlisle PA-C - Last Filed: 02/08/24 01:00> Differential Diagnosis Differential diagnosis: Likely other (cirrhosis, ascites, anasarca, SBP) <Sandra Carlisle PA-C - Last Filed: 02/08/24 01:00> Lab Data Attestation: I reviewed the patient's lab results. <Sandra Carlisle PA-C - Last Filed: 02/08/24 01:00> Result diagrams: 02/08/24 16:00 02/08/24 16:00 <Sandra Carlisle PA-C - Last Filed: 02/08/24 01:00> Labs: Lab Results 02/07/24 02/07/24 02/07/24 Range/Units 19:32 20:49 21:16 WBC 4.0 L (4.5-10.0) K/mm3 RBC 2.87 L (4.2-5.4) M/mm3 Hgb 8.7 L (12.0-15.0) g/dL Hct 28.4 L (37.0-47.0) % MCV 99.0 (80-100) fl MCH 30.3 (26-34) pg MCHC 30.6 L (32-36) g/dl RDW 18.3 H (11.5-14.5) % Plt Count 104 L (150-375) k/mm3 MPV 10.1 (7.4-10.4) fl Immature Gran % (Auto) 0.5 (0-0.5) % Neut % (Auto) 51.3 (45.5-73.1) % Lymph % (Auto) 24.1 (18.3-44.2) % Storey % (Auto) 16.7 H (2.6-8.5) % Eos % (Auto) 5.7 H (0-4.4) % Baso % (Auto) 1.7 H (0.2-1.2) % Lymph # (Auto) 0.97 (0.9-3.2) K/mm3 Storey # (Auto) 0.7 H (0.1-0.6) K/mm3 Eos # (Auto) 0.2 (0-0.3) K/mm3 Baso # (Auto) 0.1 (0.0-0.1) K/mm3 Abs Immat Gran (auto) 0.02 (0.00-0.031) K/mm3 Absolute Neuts (auto) 2.1 (1.3-6.7) K/mm3 Absolute Nucleated RBC 0.000 (0.0-0.012) K/mm3 Nucleated RBC % 0.0 (0.0-0.2) % ESR 42 H (0-20) mm/hr PT 20.3 H (11.1-14.7) Seconds INR 1.7 APTT 30.8 (22.3-36.8) Seconds Sodium 132 L (137-145) mmol/L Potassium 3.2 L (3.4-5.0) mmol/L Chloride 101 (98-107) mmol/L Carbon Dioxide 21 L (22-30) mmol/L Anion Gap 10 (4-12) mmol/L BUN 12 (7-17) mg/dL Creatinine 0.70 (0.7-1.0) mg/dL Estim Creat Clear Calc 107 ml/min Estimated GFR > 60 (59 - ) Glucose 119 H (65-110) mg/dL Lactic Acid 2.8 H (0.7-2.0) mmol/L Calcium 7.9 L (8.4-10.2) mg/dL Total Bilirubin 4.4 H (0.2-1.3) mg/dL AST 47 H (14-36) U/L ALT 20 (6-35) U/L Alkaline Phosphatase 132 H (38-126) U/L Troponin I < 0.012 (0.000-0.034) ng/mL C-Reactive Protein 1.0 (<1.0) mg/dL Total Protein 7.0 (6.3-8.2) g/dL Albumin 2.8 L (3.5-5.1) g/dL Influenza A (RT-PCR) Negative (Negative) Influenza B (RT-PCR) Negative (Negative) RSV (RT-PCR) Negative (Negative) SARS-CoV-2 RNA (RT-PCR) Negative (Negative) 02/08/24 Range/Units 00:06 WBC (4.5-10.0) K/mm3 RBC (4.2-5.4) M/mm3 Hgb (12.0-15.0) g/dL Hct (37.0-47.0) % MCV (80-100) fl MCH (26-34) pg MCHC (32-36) g/dl RDW (11.5-14.5) % Plt Count (150-375) k/mm3 MPV (7.4-10.4) fl Immature Gran % (Auto) (0-0.5) % Neut % (Auto) (45.5-73.1) % Lymph % (Auto) (18.3-44.2) % Storey % (Auto) (2.6-8.5) % Eos % (Auto) (0-4.4) % Baso % (Auto) (0.2-1.2) % Lymph # (Auto) (0.9-3.2) K/mm3 Storey # (Auto) (0.1-0.6) K/mm3 Eos # (Auto) (0-0.3) K/mm3 Baso # (Auto) (0.0-0.1) K/mm3 Abs Immat Gran (auto) (0.00-0.031) K/mm3 Absolute Neuts (auto) (1.3-6.7) K/mm3 Absolute Nucleated RBC (0.0-0.012) K/mm3 Nucleated RBC % (0.0-0.2) % ESR (0-20) mm/hr PT (11.1-14.7) Seconds INR APTT (22.3-36.8) Seconds Sodium (137-145) mmol/L Potassium (3.4-5.0) mmol/L Chloride (98-107) mmol/L Carbon Dioxide (22-30) mmol/L Anion Gap (4-12) mmol/L BUN (7-17) mg/dL Creatinine (0.7-1.0) mg/dL Estim Creat Clear Calc ml/min Estimated GFR (59 - ) Glucose (65-110) mg/dL Lactic Acid 1.5 (0.7-2.0) mmol/L Calcium (8.4-10.2) mg/dL Total Bilirubin (0.2-1.3) mg/dL AST (14-36) U/L ALT (6-35) U/L Alkaline Phosphatase (38-126) U/L Troponin I (0.000-0.034) ng/mL C-Reactive Protein (<1.0) mg/dL Total Protein (6.3-8.2) g/dL Albumin (3.5-5.1) g/dL Influenza A (RT-PCR) (Negative) Influenza B (RT-PCR) (Negative) RSV (RT-PCR) (Negative) SARS-CoV-2 RNA (RT-PCR) (Negative) <Sandra Carlisle PA-C - Last Filed: 02/08/24 01:00> Lab Results 02/07/24 02/07/24 02/07/24 Range/Units 19:32 20:49 21:16 WBC 4.0 L (4.5-10.0) K/mm3 RBC 2.87 L (4.2-5.4) M/mm3 Hgb 8.7 L (12.0-15.0) g/dL Hct 28.4 L (37.0-47.0) % MCV 99.0 (80-100) fl MCH 30.3 (26-34) pg MCHC 30.6 L (32-36) g/dl RDW 18.3 H (11.5-14.5) % Plt Count 104 L (150-375) k/mm3 MPV 10.1 (7.4-10.4) fl Immature Gran % (Auto) 0.5 (0-0.5) % Neut % (Auto) 51.3 (45.5-73.1) % Lymph % (Auto) 24.1 (18.3-44.2) % Storey % (Auto) 16.7 H (2.6-8.5) % Eos % (Auto) 5.7 H (0-4.4) % Baso % (Auto) 1.7 H (0.2-1.2) % Lymph # (Auto) 0.97 (0.9-3.2) K/mm3 Storey # (Auto) 0.7 H (0.1-0.6) K/mm3 Eos # (Auto) 0.2 (0-0.3) K/mm3 Baso # (Auto) 0.1 (0.0-0.1) K/mm3 Abs Immat Gran (auto) 0.02 (0.00-0.031) K/mm3 Absolute Neuts (auto) 2.1 (1.3-6.7) K/mm3 Absolute Nucleated RBC 0.000 (0.0-0.012) K/mm3 Nucleated RBC % 0.0 (0.0-0.2) % ESR 42 H (0-20) mm/hr PT 20.3 H (11.1-14.7) Seconds INR 1.7 APTT 30.8 (22.3-36.8) Seconds Sodium 132 L (137-145) mmol/L Potassium 3.2 L (3.4-5.0) mmol/L Chloride 101 (98-107) mmol/L Carbon Dioxide 21 L (22-30) mmol/L Anion Gap 10 (4-12) mmol/L BUN 12 (7-17) mg/dL Creatinine 0.70 (0.7-1.0) mg/dL Estim Creat Clear Calc 107 ml/min Estimated GFR > 60 (59 - ) Glucose 119 H (65-110) mg/dL Lactic Acid 2.8 H (0.7-2.0) mmol/L Calcium 7.9 L (8.4-10.2) mg/dL Total Bilirubin 4.4 H (0.2-1.3) mg/dL AST 47 H (14-36) U/L ALT 20 (6-35) U/L Alkaline Phosphatase 132 H (38-126) U/L Troponin I < 0.012 (0.000-0.034) ng/mL C-Reactive Protein 1.0 (<1.0) mg/dL Total Protein 7.0 (6.3-8.2) g/dL Albumin 2.8 L (3.5-5.1) g/dL Influenza A (RT-PCR) Negative (Negative) Influenza B (RT-PCR) Negative (Negative) RSV (RT-PCR) Negative (Negative) SARS-CoV-2 RNA (RT-PCR) Negative (Negative) 02/08/24 Range/Units 00:06 WBC (4.5-10.0) K/mm3 RBC (4.2-5.4) M/mm3 Hgb (12.0-15.0) g/dL Hct (37.0-47.0) % MCV (80-100) fl MCH (26-34) pg MCHC (32-36) g/dl RDW (11.5-14.5) % Plt Count (150-375) k/mm3 MPV (7.4-10.4) fl Immature Gran % (Auto) (0-0.5) % Neut % (Auto) (45.5-73.1) % Lymph % (Auto) (18.3-44.2) % Storey % (Auto) (2.6-8.5) % Eos % (Auto) (0-4.4) % Baso % (Auto) (0.2-1.2) % Lymph # (Auto) (0.9-3.2) K/mm3 Storey # (Auto) (0.1-0.6) K/mm3 Eos # (Auto) (0-0.3) K/mm3 Baso # (Auto) (0.0-0.1) K/mm3 Abs Immat Gran (auto) (0.00-0.031) K/mm3 Absolute Neuts (auto) (1.3-6.7) K/mm3 Absolute Nucleated RBC (0.0-0.012) K/mm3 Nucleated RBC % (0.0-0.2) % ESR (0-20) mm/hr PT (11.1-14.7) Seconds INR APTT (22.3-36.8) Seconds Sodium (137-145) mmol/L Potassium (3.4-5.0) mmol/L Chloride (98-107) mmol/L Carbon Dioxide (22-30) mmol/L Anion Gap (4-12) mmol/L BUN (7-17) mg/dL Creatinine (0.7-1.0) mg/dL Estim Creat Clear Calc ml/min Estimated GFR (59 - ) Glucose (65-110) mg/dL Lactic Acid 1.5 (0.7-2.0) mmol/L Calcium (8.4-10.2) mg/dL Total Bilirubin (0.2-1.3) mg/dL AST (14-36) U/L ALT (6-35) U/L Alkaline Phosphatase (38-126) U/L Troponin I (0.000-0.034) ng/mL C-Reactive Protein (<1.0) mg/dL Total Protein (6.3-8.2) g/dL Albumin (3.5-5.1) g/dL Influenza A (RT-PCR) (Negative) Influenza B (RT-PCR) (Negative) RSV (RT-PCR) (Negative) SARS-CoV-2 RNA (RT-PCR) (Negative) <Yaneli Brown MD - Last Filed: 02/08/24 17:54> Imaging Data Radiologist's impression: CT abdomen and pelvis: Large amount of ascites throughout the abdomen measuring up to 6 cm thick adjacent to the right liver lobe, increased since previous. Small liver with dilated portal vein measuring 16 mm, gastric and esophageal varices, as well as recanalization of the paraumbilical veins characteristic of cirrhosis/ portal venous hypertension. bowel loops are nondilated. No acute inflammatory changes are seen involving the bowel previous cholecystectomy. No biliary duct dilation is seen <Sandra Carlisle PA-C - Last Filed: 02/08/24 01:00> ECG Data EKG #1: ECG completion date: 02/07/24 <Sandra Carlisle PA-C - Last Filed: 02/08/24 01:00> EKG Interpretation: normal rate, sinus rhythm, no ST changes, prolonged QT and no acute changes (compared to EKG 01/21) <Sandra Carlisle PA-C - Last Filed: 02/08/24 01:00> Critical Care Time Critical Care Time Critical Care Time: No <Sandra Carlisle PA-C - Last Filed: 02/08/24 01:00> Discharge Plan Discharge Clinical Impression: Ascites Qualifiers: Ascites type: other type Qualified Code(s): R18.8 - Other ascites Cirrhosis Qualifiers: Hepatic cirrhosis type: unspecified hepatic cirrhosis Ascites presence: with ascites Qualified Code(s): K74.60 - Unspecified cirrhosis of liver <Sandra Carlisle PA-C - Last Filed: 02/08/24 01:00> Patient Disposition: Still a Patient <Sandra Carlisle PA-C - Last Filed: 02/08/24 01:00> Condition: Stable <Sandra Carlisle PA-C - Last Filed: 02/08/24 01:00>
[2024-02-07 21:15] LABS: Lactic Acid Reflex 2.8 mmol/L (0.7-2.0)
[2024-02-07 21:28] LABS: Troponin I < 0.012 ng/mL (0.000-0.034)
[2024-02-07 21:32] LABS: Influenza A QL RT-PCR Negative (Negative); Influenza B QL RT-PCR Negative (Negative); RSV RNA, RT-PCR Negative (Negative); SARS-CoV-2 RNA PCR Negative (Negative)
[2024-02-07 21:32] LABS: INR 1.7; Partial Thromboplastin Time 30.8 Seconds (22.3-36.8); Prothrombin Time 20.3 Seconds (11.1-14.7)
[2024-02-07] MEDS: MORPHINE SULFATE (*CRX) 4 MG/ML INJ IV PUSH (21:52)
[2024-02-07 23:23] LABS: Erythrocyte Sedimentation Rate 42 mm/hr (0-20)
[2024-02-07 23:32] VITALS: BP 128/76; PULSE 86; RESP 15; O2SAT 95
[2024-02-07 23:53] LABS: Reflex Lactic Acid Yes or No Add Lactic
[2024-02-08] VITALS (9 sets, daily range): BP systolic 119–130; BP diastolic 63–90; PULSE 82–96; RESP 14–20; TEMP 36–37.4; O2SAT 93–96
[2024-02-08] MEDS: POTASSIUM CHLORIDE 20 MEQ PACKET (FOR LIQUID) 40 MEQ PO (00:24)
[2024-02-08 00:25] LABS: Lactic Acid 1.5 mmol/L (0.7-2.0)
--- NOTE | 2024-02-08 00:42 | PM.IMHP ---
H&P: HPI History of Present Illness Date/Time: 02/08/24 00:42 Chief Complaint: sob Narrative: This is a 53-year-old female with past medical history significant for hepatic cirrhosis, patient comes in due to abdominal distention and worsening bilateral lower extremity edema, shortness of breath, fevers. Patient gets paracentesis frequently. Denies hematemesis, coffee-ground emesis, bright red blood per rectum. EXAMINATION: CT cervical spine wo con DATE: 02/07/2024 21:43 INDICATION: fall, head injury TECHNIQUE: Computed tomography (CT) of the cervical spine was performed without intravenous contrast. Automated exposure control and iterative reconstruction technique were employed. The dose-length product was 337.57 mGy-cm. COMPARISON: None. FINDINGS: Vertebral Body Alignment: Intact. Craniocervical and atlantoaxial alignment: No significant degenerative change. Alignment intact. Osseous structures/fracture: No evidence of a lytic or blastic process in the visualized spine. No evidence of acute fracture. Cervical soft tissues: The paraspinal soft tissues planes are maintained. Degenerative changes: No significant degenerative changes. IMPRESSION: No acute fracture or traumatic malalignment in the cervical spine. Review of Systems Review of Systems: Abdominal distension, worsening bilateral lower extremity edema Constitutional: Constitutional: Reports fever(s) PMFSH Past Medical History Medical History Alcohol use TAB positive Colon cancer screening Decompensation of cirrhosis of liver Elevated liver enzymes Esophageal varices with bleeding Hypothyroidism 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 Nicotine dependence, cigarettes, with other nicotine-induced disorders Portal hypertension Pulmonary edema SBP (spontaneous bacterial peritonitis) Thrombocytopenia Surgical History Surgical History Abnormal findings on esophagogastroduodenoscopy (EGD) (~10/2023) with banding Family History Family History Sibling Alcohol abuse Brother Mother FH: kidney cancer Social History Social History Social History: Patient currently lives with her dad. She has 1 child at the daughter and she states that the daughter had recently moved. She also states she did have her primary however primary recently left. She does wish to be a full code. All code status is were reviewed with the patient including DNR, DNI current pressors, BiPAP and CPAP. Patient wishes to be a full code at that time. She also likes her friend Franko to be her surrogate. Smoking packs per day: 0.5 Smoking cigarettes per day: 10.0 Years smoked: 15 Smoking pack-years: 7.50 Smoking status: Former smoker Tobacco type: cigarettes Smoking end date: 10/01/23 Alcohol intake: former Substance use: never Substance use type: does not use Do You Feel Safe in your Home?: Yes Lack of Transportation: No Lack of Food: Never True Current Housing: I Have Housing Concerned About Future Housing: No Difficulty Paying Gas/Electric Bills: No Difficulty Paying for Meds: No Currently Unemployed: No Education: Associate Degree Difficulty w/ Childcare or Family Care: No Living arrangements: with family Occupation/Education: other Additional occupation/education comments: disability Gender identity (if verbalized by the patient): Female Sexual Orientation (if Verbalized by the Patient): Straight or Heterosexual Spiritual care concerns: No Agree to blood products: Yes Meds Home Medications and Allergies Home Medications Medication Instructions Recorded Confirmed Type levothyroxine 200 mcg tablet 200 mcg PO DAILY 06/27/23 01/05/24 History pantoprazole 40 mg tablet,delayed 40 mg PO DAILY #30 tabs 07/14/23 01/05/24 Rx release furosemide 40 mg tablet (Lasix) 40 mg PO DAILY 1 month #30 tabs 12/08/23 01/05/24 Rx ferrous sulfate 325 mg (65 mg 325 mg PO BIDWM #60 tabs 01/02/24 01/05/24 Rx iron) tablet,delayed release lactulose 10 gram/15 mL oral 10 g PO QID 01/05/24 01/05/24 History solution (Constulose) Allergies Allergy/AdvReac Type Severity Reaction Status Date / Time amoxicillin Allergy Hives Verified 01/05/24 03:08 latex Allergy Rash Verified 01/05/24 03:08 Penicillins Allergy Hives Verified 01/05/24 03:08 Vital Signs Vital Signs - 24 hr 02/07/24 19:18 02/07/24 19:36 02/07/24 23:32 Temperature 98.7 F Pulse Rate 94 86 Respiratory Rate 16 15 Blood Pressure 126/74 128/76 Pulse Oximetry 97 95 Oxygen Delivery Room Air Room Air 02/08/24 00:26 Temperature Pulse Rate 89 Respiratory Rate 19 Blood Pressure 130/84 Pulse Oximetry 94 Oxygen Delivery Exam Narrative: laying in a stretcher Const: General: comfortable, no acute distress, well developed, alert, awake, ill appearing chronically, edematous and other ( jaundice) Nutritional Appearance: edematous Orientation/consciousness: patient oriented x3 HENMT: Head: normal to inspection, normocephalic and atraumatic Ears: hearing grossly normal bilaterally Face/Nose/Sinus: normal facial exam Face and sinus: normal facial exam Other: Eyes: General: appearance normal, both eyes and all related structures Sclera: scleral abnormality bilateral other ( icterus) Pupils: Equal, round and reactive pupils present EOM: EOMs intact bilaterally Neck: Neck: full ROM, no lymphadenopathy and no JVD Thyroid: thyroid normal Lymphatic: no lymphadenopathy noted Resp: Effort & Inspection: normal respiratory effort and able to speak in complete sentences Auscultation: clear to auscultation bilaterally Cardio: Jugular venous distension: no JVD Rate: regular rate Rhythm: regular rhythm Heart sounds: S1 normal heart sound present and S2 normal heart sound present GI: GI Palp: Yes Soft to palpation and Yes No hepatosplenomegaly present : General: Yes deferred Skin: Rashes: no rashes Wounds: no wounds Other: jaundiced Neuro: General: patient oriented x3 and CN's II-XI intact bilaterally Cranial nerves: Yes CN's II-XII intact bilaterally and Yes Equal, round and reactive pupils present Cognition (Neuro): normal cognition Speech: normal speech Gait exam (Neuro): Unable to assess gait Motor exam (neuro): 5/5 motor strength present throughout Extrem: General: normal to inspection, full ROM, no joint enlargement and no pedal edema Other: 4+ bilateral lower extremity edema H&P: Results Labs Labs: Short CBC 02/07/24 Range/Units 19:32 WBC 4.0 L (4.5-10.0) K/mm3 Hgb 8.7 L (12.0-15.0) g/dL Hct 28.4 L (37.0-47.0) % Plt Count 104 L (150-375) k/mm3 [facility] 02/07/24 19:32 Sodium 132 L Potassium 3.2 L Chloride 101 Carbon Dioxide 21 L BUN 12 Creatinine 0.70 Glucose 119 H Calcium 7.9 L Cardiac Enzymes 02/07/24 Range/Units 19:32 Troponin I < 0.012 (0.000-0.034) ng/mL Liver Function 02/07/24 Range/Units 19:32 Total Bilirubin 4.4 H (0.2-1.3) mg/dL AST 47 H (14-36) U/L ALT 20 (6-35) U/L Alkaline Phosphatase 132 H (38-126) U/L Albumin 2.8 L (3.5-5.1) g/dL Assessment and Plan Assessment and plan (1) Ascites: Qualifiers: Ascites type: other type Qualified Code(s): R18.8 - Other ascites Code(s): R18.8 - Other ascites Status: Acute Assessment and Plan: admit to med surg aggressive diuresis ultrasound-guided paracentesis fluid restriction (2) 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: Code(s): K75.81 - Nonalcoholic steatohepatitis (BACON); K74.60 - Unspecified cirrhosis of liver Status: Acute Assessment and Plan: follow-up in outpatient setting (3) SBP (spontaneous bacterial peritonitis): Code(s): K65.2 - Spontaneous bacterial peritonitis Status: Acute Assessment and Plan: will start on aztreonam patient states allergy to penicillin (4) Portal hypertension: Code(s): K76.6 - Portal hypertension Status: Acute Assessment and Plan: unchanged (5) Nicotine dependence, cigarettes, with other nicotine-induced disorders: Code(s): F17.218 - Nicotine dependence, cigarettes, with other nicotine-induced disorders Status: Acute Assessment and Plan: nicotine patches as needed Hospitalist MIPS Advance Care Plan I have confirmed that the patient's Advanced Care Plan is present, code status is documented, or surrogate decision maker is listed in patient medical record.: Yes Medication Reconciliation I have utilized all available resources to obtain, update and review the patients current medications (includes all prescriptions, OTC, herbals, cannabis, and nutritional supplements).: Yes
[2024-02-08] MEDS: MORPHINE SULFATE (*CRX) 4 MG/ML INJ IV PUSH ×2 (00:44→17:32)
[2024-02-08] MEDS: HYDROmorphone HCL INJ (*CRX) 1 MG/ML SYR IV PUSH (02:02)
[2024-02-08 02:56] LABS: Free T4 Free Thyroxine Reflex 1.14 ng/dL (0.78-2.19)
[2024-02-08] MEDS: diphenhydrAMINE HCl INJ 50 MG/ML VIAL IV PUSH (03:33)
[2024-02-08 03:53] LABS: Total Triiodothyronine (T3) 0.64 NG/ML (0.97-1.69)
[2024-02-08] MEDS: FUROSEMIDE INJ 40 MG/4 ML VIAL IV PUSH ×2 (08:30→17:32)
--- NOTE | 2024-02-08 15:31 | P.PNIM_ITS ---
Progress Note: A&P Assessment and Plan (1) Ascites: Qualifiers: Ascites type: other type Qualified Code(s): R18.8 - Other ascites Code(s): R18.8 - Other ascites Status: Acute Assessment and Plan: Patient has chronic cirrhosis of the liver requiring paracentesis at least once a week according to the patient. Patient has been noncompliant with medications at home and currently does not have a primary care physician and has not followed up with hepatobiliary team in [place] as recommended her last few admissions. Her most recent paracentesis was last week with at least 4-4.5L removed. She was thought to have spontaneous bacterial peritonitis in the past verses autoimmune hepatitis. Presents today with large amount of ascites and anasarca. * Continue diuresis with Lasix 40 mg IV b.i.d. * Will add spironolactone 100 mg daily starting now * Will give albumin 25% as well * Plan for ultrasound-guided paracentesis tomorrow * Continue to watch blood pressure after paracentesis tomorrow due to low blood pressure readings in the past requiring midodrine * GI consulted * ? Transfer to tertiary care for hepatobiliary services * CT of abdomen/pelvis showed cirrhosis of the liver with associated splenomegaly and large amount of abdominal pelvic ascites, small to moderate umbilical hernia containing fat and ascites fluid, 9 mm nonobstructing left renal stone * NPO after midnight * Will place Prajapati catheter * Continue fluid restriction * Continue cardiac monitoring * Peritoneal fluid from previous cultures on 12/30/2023 were negative for any bacteria (2) Portal hypertension: Code(s): K76.6 - Portal hypertension Status: Acute Assessment and Plan: * Continue spironolactone 100 mg daily (3) TAB positive: Code(s): R76.8 - Other specified abnormal immunological findings in serum Status: Acute Assessment and Plan: * TAB screen positive with a TAB titer greater than 1 : 1280A, TAB titer 2 1:160A back in June of this year * ? Autoimmune hepatitis in the past * All other immunology labs were negative (4) Pancytopenia: Code(s): D61.818 - Other pancytopenia Status: Acute Assessment and Plan: * Likely secondary to decompensated cirrhosis * Continue to trend (5) Hypothyroidism: Code(s): E03.9 - Hypothyroidism, unspecified Status: Acute Assessment and Plan: * Continue Synthroid * TSH 68.600, free T4 1.14, total T3 0.64 * Patient has been noncompliant with her medications at home and we will hold off on increasing her Synthroid at this time Time Spent With Patient Time: Extra time was spent going through EMR and long discussion with patient about compliance with follow up appointments and medication compliance. Time with patient: Greater than 35 minutes Subjective Date/time seen: 02/08/24 15:31 Interval history: Interval history: This is a 53 year old female with a significant past medical history of hepatic cirrhosis who presented with ascites and shortness of breath. 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 Initial labs shown WBC 4.0, RBC 2.87, Hgb 8.7, Plt 104, ESR 42, Na+ 132, potassium 3.2, bicarb 21, Lactic acid 2.8>1.5, total bilirubin 4.4, AST 47, Alk phos 132, troponin negative, Albumin 2.8, TSH 68.600, T3 0.64. Respiratory panel was ob tained and was negative for influenza A and B, RSV, and COVID. Subjective: Patient is well known to our service and has been going from hospital to hospital getting weekly paracentesis. Her last session was last week and she had over 4L fluid removed. She is noncompliant with home medications and has not seen her primary care doctor for any refills. She was told back in June of this year that she needs to get in with Hepatology for further care as she has decompensated cirrhosis of the liver however she has not made the appointment. She states that her insurance is BC/BS and that 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 She was on lasix however she can't remember the last time she took that as she has been out for quite some time. Past work up was concerning for autoimmune hepatitis considering TAB and IgG were positive versus SBP. She reports SOB, ascites, anasarca with difficulty moving around. Review of Systems Review of Systems: Abdominal distension, worsening bilateral lower extremity edema All systems reviewed & are unremarkable except as noted in HPI and below Constitutional: Constitutional: Reports as per HPI and Reports no additional constitutional complaints Eyes: Eyes: Reports as per HPI and Reports no additional eye complaints ENT: Reports system reviewed and no additional complaints, except as documented and Reports as per HPI Cardiovascular: Cardiovascular: Reports as per HPI and Reports no additional cardiovascular complaints Respiratory: Respiratory: Reports as per HPI and Reports no additional respiratory complaints Gastrointestinal: Gastrointestinal: Reports as per HPI and Reports no additional gastrointestinal complaints Genitourinary: Genitourinary: Reports no additional female genitourinary complaints and Reports as per HPI Musculoskeletal: Musculoskeletal: Reports no additional musculoskeletal complaints and Reports as per HPI Integumentary/Breasts: Skin/Breast: Reports system reviewed and no additional complaints, except as docu and Reports as per HPI Neurologic: Reports system reviewed and no additional complaints, except as documented and Reports as per HPI Psychiatric: Psychiatric: Reports no additional psychiatric complaints and Reports as per HPI Exam Narrative: General: In no acute distress, well nourished Head: atraumatic, no encephalopathy Eyes: EOMI, PERRLA, sclera jaundiced, bulged ENT: moist mucous membranes, nasal passages clear Neck: supple, no JVD, no adenopathy, trachea midline Cardiac: Normal S1 and S2. No murmur, gallops or friction rubs, peripheral pulses intact. Respiratory:Crackles noted in bases, no adventitious lung sounds,currently on room air Gastrointestinal:Large, taunt with umbilical herniation, Bowel sounds positive, ascites : voiding minimal amount Extremities: moves all extremities, anasarca present, BLE pitting edema Skin: clean, dry, intact. No wounds or lesions. Neuro: Alert and oriented x4, cranial nerves intact, no neuro deficits. Psych: normal mood, normal affect, interactive Objective Data Vital Signs Vital Signs: Vital Signs - 24 hr 02/07/24 19:18 02/07/24 19:36 02/07/24 23:32 Temperature 98.7 F Pulse Rate 94 86 Respiratory Rate 16 15 Blood Pressure 126/74 128/76 Pulse Oximetry 97 95 Oxygen Delivery Room Air Room Air Oxygen Flow Rate 02/08/24 00:26 02/08/24 00:59 02/08/24 01:41 Temperature 98.7 F Pulse Rate 89 84 82 Respiratory Rate 19 15 16 Blood Pressure 130/84 130/80 130/64 Pulse Oximetry 94 95 94 Oxygen Delivery Oxygen Flow Rate 02/08/24 03:04 02/08/24 05:05 02/08/24 08:00 Temperature 99.3 F 98.9 F Pulse Rate 95 96 Respiratory Rate 20 18 Blood Pressure 126/86 126/90 Pulse Oximetry 94 96 Oxygen Delivery Room Air Oxygen Flow Rate 02/08/24 12:00 02/08/24 07:32 02/08/24 08:00 Temperature 98.4 F Pulse Rate 92 Respiratory Rate 18 Blood Pressure 130/69 Pulse Oximetry 94 96 94 Oxygen Delivery Room Air Nasal Cannula Oxygen Flow Rate 2 Intake/Output Intake/Output: Intake & Output 02/05/24 02/06/24 02/07/24 02/08/24 23:59 23:59 23:59 23:59 Intake Total 668 Balance 668 Meds/Results Medications: Active Medications Generic Name Dose Route Start Last Admin Trade Name Freq PRN Reason Stop Dose Admin Al Hydrox/Mg Hydrox/Simethicone 30 ml 02/08/24 01:11 Mag Hydrox/Al Hydrox/Simeth 30 Ml Udc PO Q6H PRN Indigestion Furosemide 40 mg 02/08/24 09:00 02/08/24 08:30 Furosemide Inj 40 Mg/4 Ml Vial IV PUSH 40 mg BID LENNY Administration Albumin Human 200 mls @ 60 mls/hr 02/08/24 15:27 Albutein IVPB 02/08/24 18:46 ONCE ONE Levothyroxine Sodium 200 mcg 02/09/24 06:30 Levothyroxine Sodium 100 Mcg Tablet PO DAILY@0630 LENNY Morphine Sulfate 4 mg 02/08/24 03:24 Morphine Sulfate (*Crx) 4 Mg/Ml Inj IV PUSH Q6H PRN Pain Rated 7-10 Polyethylene Glycol 17 gm 02/08/24 01:11 Polyethylene Glycol 3350 17 Gm Powd.Pack PO QAM PRN Constipation Radiology Results: ITS Impressions Chest X-Ray 02/07/24 20:06 IMPRESSION: Mild interstitial edema. 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 Small to moderate umbilical hernia containing fat and ascitic fluid. 9 mm nonobstructing left renal stone. Labs Labs: Laboratory Results - last 24 hr 02/07/24 02/07/24 02/07/24 19:32 20:49 21:16 WBC 4.0 L RBC 2.87 L Hgb 8.7 L Hct 28.4 L MCV 99.0 MCH 30.3 MCHC 30.6 L RDW 18.3 H Plt Count 104 L MPV 10.1 Immature Gran % (Auto) 0.5 Neut % (Auto) 51.3 Lymph % (Auto) 24.1 [place] % (Auto) 16.7 H Eos % (Auto) 5.7 H Baso % (Auto) 1.7 H Lymph # (Auto) 0.97 [place] # (Auto) 0.7 H Eos # (Auto) 0.2 Baso # (Auto) 0.1 Abs Immat Gran (auto) 0.02 Absolute Neuts (auto) 2.1 Absolute Nucleated RBC 0.000 Nucleated RBC % 0.0 ESR 42 H PT 20.3 H INR 1.7 APTT 30.8 Sodium 132 L Potassium 3.2 L Chloride 101 Carbon Dioxide 21 L Anion Gap 10 BUN 12 Creatinine 0.70 Estim Creat Clear Calc 107 Estimated GFR > 60 Glucose 119 H Lactic Acid 2.8 H Calcium 7.9 L Total Bilirubin 4.4 H AST 47 H ALT 20 Alkaline Phosphatase 132 H Troponin I < 0.012 C-Reactive Protein 1.0 Total Protein 7.0 Albumin 2.8 L TSH (Reflex) Free T4 Total T3 Influenza A (RT-PCR) Negative Influenza B (RT-PCR) Negative RSV (RT-PCR) Negative SARS-CoV-2 RNA (RT-PCR) Negative 02/08/24 02/08/24 00:06 00:46 WBC RBC Hgb Hct MCV MCH MCHC RDW Plt Count MPV Immature Gran % (Auto) Neut % (Auto) Lymph % (Auto) [place] % (Auto) Eos % (Auto) Baso % (Auto) Lymph # (Auto) [place] # (Auto) Eos # (Auto) Baso # (Auto) Abs Immat Gran (auto) Absolute Neuts (auto) Absolute Nucleated RBC Nucleated RBC % ESR PT INR APTT Sodium Potassium Chloride Carbon Dioxide Anion Gap BUN Creatinine Estim Creat Clear Calc Estimated GFR Glucose Lactic Acid 1.5 Calcium Total Bilirubin AST ALT Alkaline Phosphatase Troponin I C-Reactive Protein Total Protein Albumin TSH (Reflex) 68.600 H Free T4 1.14 Total T3 0.64 L Influenza A (RT-PCR) Influenza B (RT-PCR) RSV (RT-PCR) SARS-CoV-2 RNA (RT-PCR) Quality VTE Prophylaxis VTE prophylaxis: mechanical ordered
[2024-02-08 16:11] LABS: Basophils Absolute Auto 0.1 K/mm3 (0.0-0.1); Basophils Percent Auto 1.6 % (0.2-1.2); Eosinophils Absolute Auto 0.2 K/mm3 (0-0.3); Eosinophils Percent Auto 5.3 % (0-4.4); Hematocrit 27.5 % (37.0-47.0); Hemoglobin 8.3 g/dL (12.0-15.0); Immature Granulocyte Absolute 0.01 K/mm3 (0.00-0.031); Immature Granulocyte Percent A 0.2 % (0-0.5); Lymphocytes Absolute Auto 0.76 K/mm3 (0.9-3.2); Lymphocytes Percent Auto 17.4 % (18.3-44.2); Mean Corpuscular HGB Conc 30.2 g/dl (32-36); Mean Corpuscular Hemoglobin 30.9 pg (26-34); Mean Corpuscular Volume 102.2 fl (80-100); Mean Platelet Volume 10.4 fl (7.4-10.4); Monocytes Absolute Auto 0.8 K/mm3 (0.1-0.6); Monocytes Percent Auto 17.4 % (2.6-8.5); Neutrophils Absolute Auto 2.5 K/mm3 (1.3-6.7); Neutrophils Percent Auto 58.1 % (45.5-73.1); Platelet Count Result 103 k/mm3 (150-375); Red Blood Count 2.69 M/mm3 (4.2-5.4); Red Cell Distribution Width 18.4 % (11.5-14.5); White Blood Count 4.4 K/mm3 (4.5-10.0)
[2024-02-08 16:28] LABS: Alanine Aminotransferase 19 U/L (6-35); Albumin Level 2.7 g/dL (3.5-5.1); Alkaline Phosphatase 120 U/L (38-126); Anion Gap 8 mmol/L (4-12); Aspartate Amino Transferase 51 U/L (14-36); Bilirubin,Total 4.2 mg/dL (0.2-1.3); Blood Urea Nitrogen 14 mg/dL (7-17); Carbon Dioxide 22 mmol/L (22-30); Chloride 103 mmol/L (98-107); Estimated CRCL calculation 95 ml/min; Estimated Glomerular Filt Rate > 60; Glucose 87 mg/dL (65-110); Potassium 3.8 mmol/L (3.4-5.0); Sodium 133 mmol/L (137-145)
[2024-02-08] MEDS: ALBUMIN HUMAN 25% 25 GM/100 ML 200 ML IVPB (17:31)
[2024-02-08] MEDS: SPIRONOLACTONE 50 MG TABLET 100 MG PO (17:32)
[2024-02-08 17:40] LABS: Magnesium 2.1 mg/dL (1.6-2.3)
[2024-02-09] VITALS (7 sets, daily range): BP systolic 107–131; BP diastolic 57–85; PULSE 83–88; RESP 16–20; TEMP 35.9–37.1; O2SAT 90–96
[2024-02-09 06:12] LABS: Basophils Absolute Auto 0.1 K/mm3 (0.0-0.1); Basophils Percent Auto 1.2 % (0.2-1.2); Eosinophils Absolute Auto 0.2 K/mm3 (0-0.3); Eosinophils Percent Auto 5.1 % (0-4.4); Hematocrit 28.9 % (37.0-47.0); Hemoglobin 8.2 g/dL (12.0-15.0); Immature Granulocyte Absolute 0.01 K/mm3 (0.00-0.031); Immature Granulocyte Percent A 0.2 % (0-0.5); Immature Platelet Fraction Pct 1.8 % (0.9-11.2); Lymphocytes Absolute Auto 0.99 K/mm3 (0.9-3.2); Lymphocytes Percent Auto 24.3 % (18.3-44.2); Mean Corpuscular HGB Conc 28.4 g/dl (32-36); Mean Corpuscular Hemoglobin 30.7 pg (26-34); Mean Corpuscular Volume 108.2 fl (80-100); Mean Platelet Volume 10.6 fl (7.4-10.4); Monocytes Absolute Auto 0.7 K/mm3 (0.1-0.6); Monocytes Percent Auto 16.7 % (2.6-8.5); Neutrophils Absolute Auto 2.1 K/mm3 (1.3-6.7); Neutrophils Percent Auto 52.5 % (45.5-73.1); Platelet Count Result 102 k/mm3 (150-375); Red Blood Count 2.67 M/mm3 (4.2-5.4); Red Cell Distribution Width 18.4 % (11.5-14.5); White Blood Count 4.1 K/mm3 (4.5-10.0)
[2024-02-09 06:32] LABS: Alanine Aminotransferase 17 U/L (6-35); Albumin Level 3.1 g/dL (3.5-5.1); Alkaline Phosphatase 109 U/L (38-126); Anion Gap 9 mmol/L (4-12); Aspartate Amino Transferase 55 U/L (14-36); Bilirubin,Total 5.1 mg/dL (0.2-1.3); Blood Urea Nitrogen 15 mg/dL (7-17); Calcium 8.2 mg/dL (8.4-10.2); Carbon Dioxide 19 mmol/L (22-30); Chloride 103 mmol/L (98-107); Estimated CRCL calculation 123 ml/min; Estimated Glomerular Filt Rate > 60; Glucose 79 mg/dL (65-110); Potassium 3.8 mmol/L (3.4-5.0); Sodium 131 mmol/L (137-145)
[2024-02-09 07:13] LABS: Macrocytosis 1+ (NORMAL); Platelet Estimate Adequate (Adequate); Tear Drop Cells 1+
[2024-02-09 07:14] LABS: Burr Cells 1+; Ovalocytes 1+; Schistocytes None Seen
[2024-02-09] MEDS: FUROSEMIDE INJ 40 MG/4 ML VIAL IV PUSH ×2 (08:00→17:40)
--- NOTE | 2024-02-09 08:47 | P.PNIM_ITS ---
Progress Note: A&P Assessment and Plan (1) Cirrhosis: Qualifiers: Ascites presence: with ascites Hepatic cirrhosis type: unspecified hepatic cirrhosis Qualified Code(s): K74.60 - Unspecified cirrhosis of liver; R18.8 - Other ascites Code(s): K74.60 - Unspecified cirrhosis of liver Status: Acute Assessment and Plan: * Decompensated cirrhosis requiring frequent paracentesis * Autoimmune cirrhosis was being worked up in the past * She does have history of alcohol abuse in the past, unsure if this is primary cause considering in her history she was noted to have BACON * MELD score 23 * She needs to go to hepatobiliary doctor for further workup of underlying cause however has not been set up an appointment. * GI following (2) Ascites: Qualifiers: Ascites type: other type Qualified Code(s): R18.8 - Other ascites Code(s): R18.8 - Other ascites Status: Acute Assessment and Plan: Patient has chronic cirrhosis of the liver requiring paracentesis at least once a week according to the patient. Patient has been noncompliant with medications at home and currently does not have a primary care physician and has not followed up with hepatobiliary team in [place] as recommended her last few admissions. Her most recent paracentesis was last week with at least 4-4.5L removed. She was thought to have spontaneous bacterial peritonitis in the past verses autoimmune hepatitis. Presents today with large amount of ascites and anasarca. * Continue diuresis with Lasix 40 mg IV b.i.d. * Continue Spironolactone * Will give albumin 25% post paracentesis * Continue to watch blood pressure after paracentesis tomorrow due to low blood pressure readings in the past requiring midodrine * GI consulted * ? Transfer to tertiary care for hepatobiliary services awaiting patient decision * CT of abdomen/pelvis showed cirrhosis of the liver with associated splenomegaly and large amount of abdominal pelvic ascites, small to moderate umbilical hernia containing fat and ascites fluid, 9 mm nonobstructing left renal stone * Will place Prajapati catheter * Continue fluid restriction * Continue cardiac monitoring * Peritoneal fluid from previous cultures on 12/30/2023 were negative for any bacteria * Paracentesis today with 4500ml fluid removal. (3) Portal hypertension: Code(s): K76.6 - Portal hypertension Status: Acute Assessment and Plan: * Continue spironolactone 100 mg daily (4) TAB positive: Code(s): R76.8 - Other specified abnormal immunological findings in serum Status: Acute Assessment and Plan: * TAB screen positive with a TAB titer greater than 1 : 1280A, TAB titer 2 1:160A back in June of this year * ? Autoimmune hepatitis in the past * All other immunology labs were negative (5) Eosinophilia: Code(s): D72.10 - Eosinophilia, unspecified Status: Acute Assessment and Plan: * Eos 7.3>5.7>5.3>5.1 * consider Eosinophilic cirrhosis, however this is less likely as it is rare?? (6) Pancytopenia: Code(s): D61.818 - Other pancytopenia Status: Acute Assessment and Plan: * Likely secondary to decompensated cirrhosis * Continue to trend (7) Hypothyroidism: Code(s): E03.9 - Hypothyroidism, unspecified Status: Acute Assessment and Plan: * Continue Synthroid * TSH 68.600, free T4 1.14, total T3 0.64 * Patient has been noncompliant with her medications at home and we will hold off on increasing her Synthroid at this time Time Spent With Patient Time with patient: Greater than 35 minutes Subjective Date/time seen: 02/09/24 08:47 Interval history: Interval history: This is a 53 year old female with a significant past medical history of hepatic cirrhosis who presented with ascites and shortness of breath. 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 Initial labs shown WBC 4.0, RBC 2.87, Hgb 8.7, Plt 104, ESR 42, Na+ 132, potassium 3.2, bicarb 21, Lactic acid 2.8>1.5, total bilirubin 4.4, AST 47, Alk phos 132, troponin negative, Albumin 2.8, TSH 68.600, T3 0.64. Respiratory panel was obtained and was negative for influenza A and B, RSV, and COVID. Subjective: 02/08/24: Patient is well known to our service and has been going from hospital to hospital getting weekly paracentesis. Her last session was last week and she had over 4L fluid removed. She is noncompliant with home medications and has not seen her primary care doctor for any refills. She was told back in June of this year that she needs to get in with Hepatology for further care as she has decompensated cirrhosis of the liver however she has not made the appointment. 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 She was on lasix however she can't remember the last time she took that as she has been out for quite some time. Past work up was concerning for autoimmune hepatitis consideri ng TAB and IgG were positive versus SBP. She reports SOB, ascites, anasarca with difficulty moving around. 02/09/24: Patient reports feeling much better after paracentesis. She had a total of 4.5L removed. I discussed the option of transferring [facility] to [facility] for hepat[facility] work up as well as immunology for her cirrhosis. She needs to check with friends to see if they are willing to come get her vehicle from here and would be able to pick her up at discharge. She would like a day to think about this option considering she has been needing to schedule an appointment or get established with hepatology at [facility]. We will revisit conversation again tomorrow. Labs reviewed. Review of Systems Review of Systems: Abdominal distension, worsening bilateral lower extremity edema All systems reviewed & are unremarkable except as noted in HPI and below Constitutional: Constitutional: Reports as per HPI, Reports no additional constitutional complaints and Reports fever(s) Eyes: Eyes: Reports as per HPI and Reports no additional eye complaints ENT: Reports system reviewed and no additional complaints, except as documented and Reports as per HPI Cardiovascular: Cardiovascular: Reports as per HPI and Reports no additional cardiovascular complaints Respiratory: Respiratory: Reports as per HPI and Reports no additional respiratory complaints Gastrointestinal: Gastrointestinal: Reports as per HPI and Reports no additional gastrointestinal complaints Genitourinary: Genitourinary: Reports no additional female genitourinary complaints and Reports as per HPI Musculoskeletal: Musculoskeletal: Reports no additional musculoskeletal complaints and Reports as per HPI Integumentary/Breasts: Skin/Breast: Reports system reviewed and no additional complaints, except as docu and Reports as per HPI Neurologic: Reports system reviewed and no additional complaints, except as documented and Reports as per HPI Psychiatric: Psychiatric: Reports no additional psychiatric complaints and Reports as per HPI Exam Narrative: General: In no acute distress, well nourished Eyes: EOMI, PERRLA, sclera jaundiced, bulged Cardiac: Normal S1 and S2. No murmur, gallops or friction rubs, peripheral pulses intact. Respiratory:Crackles noted in bases, no adventitious lung sounds,currently on room air Gastrointestinal:Large,soft with umbilical herniation, Bowel sounds positive, ascites improved post paracentesis : voiding minimal amount Extremities: moves all extremities, anasarca present, BLE pitting edema Skin:Jaundiced Neuro: Alert and oriented x4 Objective Data Vital Signs Vital Signs: Vital Signs - 24 hr 02/08/24 12:00 02/08/24 16:00 02/08/24 20:00 Temperature 98.4 F 98.7 F Pulse Rate 92 86 Respiratory Rate 18 14 Blood Pressure 130/69 123/74 Pulse Oximetry 94 96 Oxygen Delivery Room Air 02/08/24 20:40 02/09/24 00:55 02/09/24 05:35 Temperature 96.8 F L 96.6 F L 97.2 F L Pulse Rate 88 83 85 Respiratory Rate 20 16 20 Blood Pressure 119/63 116/69 113/72 Pulse Oximetry 93 90 92 Oxygen Delivery 02/09/24 07:52 Temperature 98.5 F Pulse Rate 85 Respiratory Rate 18 Blood Pressure 131/85 Pulse Oximetry 96 Oxygen Delivery Intake/Output Intake/Output: Intake & Output 02/06/24 02/07/24 02/08/24 02/09/24 23:59 23:59 23:59 23:59 Intake Total 1303 237 Output Total 625 Balance 1303 -388 Meds/Results Medications: Active Medications Generic Name Dose Route Start Last Admin Trade Name Freq PRN Reason Stop Dose Admin Al Hydrox/Mg Hydrox/Simethicone 30 ml 02/08/24 01:11 Mag Hydrox/Al Hydrox/Simeth 30 Ml Udc PO Q6H PRN Indigestion Furosemide 40 mg 02/08/24 09:00 02/08/24 17:32 Furosemide Inj 40 Mg/4 Ml Vial IV PUSH 40 mg BID LENNY Administration Levothyroxine Sodium 200 mcg 02/09/24 06:30 02/09/24 05:08 Levothyroxine Sodium 100 Mcg Tablet PO Not Given DAILY@0630 LENNY Morphine Sulfate 4 mg 02/08/24 03:24 02/08/24 17:32 Morphine Sulfate (*Crx) 4 Mg/Ml Inj IV PUSH 4 mg Q6H PRN Administration Pain Rated 7-10 Pantoprazole Sodium 40 mg 02/09/24 09:00 Pantoprazole 40 Mg Tablet PO QAM [facility] Polyethylene Glycol 17 gm 02/08/24 01:11 Polyethylene Glycol 3350 17 Gm Powd.Pack PO QAM PRN Constipation Spironolactone 100 mg 02/08/24 16:25 02/08/24 17:32 Spironolactone 50 Mg Tablet PO 100 mg QAM LENNY Administration Radiology Results: ITS Impressions Chest X-Ray 02/07/24 20:06 IMPRESSION: Mild interstitial edema. 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 Small to moderate umbilical hernia containing fat and ascitic fluid. 9 mm nonobstructing left renal stone. Labs Labs: Laboratory Results - last 24 hr 02/08/24 02/08/24 02/09/24 15:57 16:00 05:45 WBC 4.4 L 4.1 L RBC 2.69 L 2.67 L Hgb 8.3 L 8.2 L Hct 27.5 L 28.9 L MCV 102.2 H 108.2 H D MCH 30.9 30.7 MCHC 30.2 L 28.4 L RDW 18.4 H 18.4 H Plt Count 103 L 102 L MPV 10.4 10.6 H Immature Gran % (Auto) 0.2 0.2 Neut % (Auto) 58.1 52.5 Lymph % (Auto) 17.4 L 24.3 [place] % (Auto) 17.4 H 16.7 H Eos % (Auto) 5.3 H 5.1 H Baso % (Auto) 1.6 H 1.2 Lymph # (Auto) 0.76 L 0.99 [place] # (Auto) 0.8 H 0.7 H Eos # (Auto) 0.2 0.2 Baso # (Auto) 0.1 0.1 Abs Immat Gran (auto) 0.01 0.01 Absolute Neuts (auto) 2.5 2.1 Absolute Nucleated RBC 0.000 0.000 Nucleated RBC % 0.0 0.0 Platelet Estimate Adequate % Immature Plt Fraction 1.8 Macrocytosis 1+ Tear Drop Cells 1+ Ovalocytes 1+ Bridget Cells 1+ Schistocytes None seen Sodium 133 L 131 L Potassium 3.8 3.8 Chloride 103 103 Carbon Dioxide 22 19 L Anion Gap 8 9 BUN 14 15 Creatinine 0.80 0.60 L Estim Creat Clear Calc 95 123 Estimated GFR > 60 > 60 Glucose 87 79 Calcium 8.0 L 8.2 L Magnesium 2.1 Total Bilirubin 4.2 H 5.1 H AST 51 H 55 H ALT 19 17 Alkaline Phosphatase 120 109 Total Protein 7.0 7.0 Albumin 2.7 L 3.1 L Imaging Radiologist's impression: EXAMINATION: US paracentesis abd w/image DATE: 02/09/2024 11:20 INDICATION: Ascites. TECHNIQUE: The procedure and its risks, benefits, and alternatives were discussed with the patient. Potential risks discussed included bleeding and infection. The skin was prepped and draped in sterile fashion. 1% lidocaine was used for local anesthesia. Under ultrasound guidance, a 5 Fr catheter with trochar was advanced into the ascites in the left lower quadrant. Fluid was aspirated. The catheter was removed, and a dressing was applied. There were no immediate complications. FINDINGS: Ultrasound images demonstrate ascites and the catheter within the fluid. IMPRESSION: 1. Successful ultrasound-guided paracentesis yielding 4500 mL of dark yellow fluid. Reviewed, dictated and finalized at location [facility] Quality VTE Prophylaxis VTE prophylaxis: mechanical ordered
[2024-02-09 09:15] LABS: INR 1.8; Prothrombin Time 21.4 Seconds (11.1-14.7)
[2024-02-09 09:16] LABS: Partial Thromboplastin Time 35.2 Seconds (22.3-36.8)
--- NOTE | 2024-02-09 10:22 | P.CONGI_ITS ---
I, Uziel Lloyd MD, have provided a substantive portion of the care of this patient and discussed the patient with my Nurse Practitioner. I have reviewed any new relevant radiographic and laboratory results including medications. I agree with her documentation as noted below.?I personally performed the medical decision making and much of the history and exam for this encounter. briefly, she has known decompensated cirrhosis with non compliance (previous work up showed high regis 1:1260 with normal ama, actin igm and lkm- ? 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 She is here with recurrent ascites, her last paracentesis was last week at another hospital. She says that lately has been requiring more paracentesis. She underwent paracentesis again, no SBP. Continue with lasix and aldactone (will increase dose if renal function allows), her MELD score is high therefore TIPS right now is not best option. She needs to get established with hepatology and start liver transplant evaluation. Continue with supportive care, 2g na diet, diuretics, nutrition. Assessment and Plan Assessment and plan (1) Decompensation of cirrhosis of liver: Code(s): K72.90 - Hepatic failure, unspecified without coma; K74.60 - Unspecified cirrhosis of liver Status: Acute (2) Portal hypertension: Code(s): K76.6 - Portal hypertension Status: Acute (3) Thrombocytopenia: Code(s): D69.6 - Thrombocytopenia, unspecified Status: Acute (4) Ascites: Qualifiers: Ascites type: other type Qualified Code(s): R18.8 - Other ascites Code(s): R18.8 - Other ascites Status: Acute (5) Elevated liver enzymes: Code(s): R74.8 - Abnormal levels of other serum enzymes Status: Acute (6) REGIS positive: Code(s): R76.8 - Other specified abnormal immunological findings in serum Status: Acute (7) Hyponatremia: Code(s): E87.1 - Hypo-osmolality and hyponatremia Status: Acute (8) Macrocytic anemia: Code(s): D53.9 - Nutritional anemia, unspecified Status: Acute Plan 1. Cirrhosis with ascites/esophageal varices/ portal hypertension/ pancytopenia/history of SBP/autoimmune hepatitis?/elevated LFT's/hyponatremia: MELD 3.0 score 23. Decompensated. Patient was previously referred to hepatology at [facility] or [facility] for consideration of TIPS procedure and further management but patient denies seeing another computing architect. Per patient she had an appointment to see a computing architect at [facility] last week but had a fever and did not make this appointment. However; given MELD score of 23 and elevated bilirubin at 5.1, she is likely not a candidate for TIPS at this time but could be considered for TIPS of liver transplant in the future depending on clinical progression. She denies any alcohol use since October and prior to that time she states she was only drinking 1 to 2 times a week but denies excessive alcohol use. Prior liver workup questionable for autoimmune hepatitis and she was previously treated with steroids during her hospitalization in June at [place]. REGIS significantly elevated >1:1280. Patient has been hospitalized at multiple hospitals over the past few months making record keeping difficult. Patient was admitted at [facility] in October at which time she had an EGD for bleeding varices but these records not available at visit. Patient states that she was recently admitted in [facility] and was on observation at which time she had a paracentesis with 40 ml removed? Unclear if patient is complaint with medications at home. She is on lactulose but is unable to say how often she is t aking it but states that she is having 2-3 loose to formed BM's per day. She states that she is taking Lasix daily but it doesn't do anything . Per patient she is unable to take aldactone at home due to an allergy but has been getting Aldactone during her hospitalizations without any issues. Labs today show sodium 131, potassium 3.8, BUN 15, creatinine 0.60, GFR > 60. WBC is 4, HGB 8, HCT 29, MCV 108, platelets 102, INR 1.3. Total bilirubin 5.1, AST 55, ALT 17, alkaline phosphatase 109, albumin 3.1. * Variceal screening: Last EGD on record here was 07/02/2023 Which showed very small esophageal varices and gastritis. Per patient in October she was hospitalized at [facility] at which time she had an EGD for bleeding varices but these records not available at visit. CT this admission showed esophageal and splenorenal varices. Beta derrek: Patient was previously on Nadolol 20 mg daily, but this is no longer noted on home medications * Last paracentesis: Per patient a paracentesis was done in October. Paracentesis 01/05/2024 with 3800 ml removed. Per patient last paracentesis was done last week while at [facility] but only a small amount was removed (40 ml, likely for a diagnostic tap) * Current diuretics: Currently on Aldactone 100 mg daily and Lasix 40 mg BID. More aggressive diuresis will likely be needed * Diet: 2 gram sodium diet which patient states she has been following * History of HE: Per patient is sounds as if she may have been encephalopathic during her hospitalization in October. Ammonia this admission 53 * HCC screening: Last imaging with CT 02/07/2024 no liver lesion or mass. AFP 3.4. Patient will require repeat imaging and labs every 6 months * Paracentesis ordered along with fluid analysis. Large volume paracentesis needed and albumin ordered for patient to receive 25% 25 g per 4 liters removed * Patient needs to receive future care at a tertiary center for higher level of care. * Consider palliative care management or terminal operations manager abdominal drain as she is requiring frequent paracentesis. In December that patient had 3 paracentesis within a week as only 5000 ml or less were removed during each procedures * Primary care team to monitor electrolytes closely and correct * Avoid NSAID's, LANRE, ARB's to help preserve renal function 2. Macrocytic anemia: Labs this admission show WBCs 4, HGB 8, HCT 29, MCV 108, platelets 102, INR 1.3. No signs of active GI bleeding to include hematemesis, hematochezia, or melena. B12 and folate on 01/02/2024 were normal. Iron panel 01/02/2024 showed total iron 38, TIBC 211, iron saturation 18%. Anemia likely multifactorial including known cirrhosis * Primary care team to continue monitoring H/H and transfuse as needed to keep Hgb >7 Thank you very much for allowing me to share in the care of this very nice patient. This report may have been done utilizing a voice recognition system. Attempts have been made to correct errors. However, there may be uncorrected grammatical, spelling, and recognition errors present. GI Consult Note Consult date/time: 02/09/24 10:22 Reason for consult: Cirrhosis and ascites HPI: This is a pleasant 53 year old female with a past medical surgical history of cirrhosis with ascites, esophageal varices, gastritis, hypothyroidism, pulmonary hypertension, pulmonary edema, alcohol use, thrombocytopenia, and history of SBP she presented to the ER room 02/07/2024 with complaints of shortness of breath that started a few days ago. GI consulted for cirrhosis and ascites. Patient reports feeling pressure and sharp pain in her rib cage that started days ago. She denies nausea, vomiting, swallowing difficulty, or heartburn. Her appetite has been hit or miss. She has been gaining weight with the belly swelling. Bowel movements are twice a day, sometimes 3 times a day, soft to formed. Once in a while, there's a tiny bit of blood in the stool. She has been taking lactulose daily. She had an appointment scheduled with hepatology on but missed it due to a 102 fever. She has been taking Lasix at home but reports it doesn't do squat . She has had more swelling than usual in the legs, with dizziness. On examination, her legs are puffy, with swelling up to the knees and now involving the thighs, causing pain with walking. Her last paracentesis was last week at [facility] where they only removed 40 ml ??, which is the least amount she has ever had removed . Patient states that she was at [place] for observation for less than 24 hours. Denies Nausea, vomiting, odynophagia, dysphagia, reflux, regurgitation, early satiety, weight loss, appetite loss. She states that she is taking lactulose daily but is unable to say how many times a day she uses it but is still having 2-3 soft to formed bowel movements daily and denies any diarrhea. Admits to occasional trace intermittent rectal bleeding after bowel movements but denies melena. Admits to scleral icterus that has been occurring for the past few days, jaundice, fever last week, shortness of breath with activity. Denies confusion, dark urine, itching or hematuria. ENDOSCOPY HISTORY: EGD: 07/02/[address] oLpez for cirrhosis Findings: Small grade 1 varices not actively bleeding. No esophagitis The Z-line was located at 41 cm from the incisors Mild gastritis seen in the stomach. The gastritis had erythematous and portal hypertensive changes. The gastritis had moderate portal hypertensive changes. There was no mucosal bleeding The bulb and 2nd portion of the duodenum was normal with no ulcers or masses COLONOSCOPY: None LABS AND STOOL STUDIES: Labs 02/09/2024 showed sodium 131, potassium 3.8, BUN 15, creatinine 0.60, GFR > 60. WBC is 4, HGB 8, HCT 29, MCV 108, platelets 102 INR 1.3. Total bilirubin 5.1, AST 55, ALT 17, alkaline phosphatase 109, albumin 3.1, calcium 8.2. Labs 12/29/2023 showed sodium 135, potassium 3.3, BUN 12, creatinine 0.80, GFR > 60. WBC is 5, HGB 10, HCT 30, MCV 104, platelets 85. INR 1.8. Total bilirubin 8.3, AST 41, ALT 18, alkaline phosphatase 108, calcium 8.3, CRP < 0.5, albumin 3.1, lipase 136. Previous liver workup showed alpha-1 antitrypsin phenotype PI*MM, ceruloplasmin 18, REGIS >1:1280 with nuclear speckled pattern, mitochondrial antibody < 20, hepatitis panel negative, actin IgG < 20. Labs 07/02/2023 showed iron 90, TIBC 247, iron saturation 36%, ferritin 34.8 IMAGING: CT abd/pelvis w/contrast 02/07/2024 Impression: Cirrhosis of the liver with associated splenomegaly and large amount of abdominopelvic ascites, as well as probable esophageal and splenorenal varices. Small to moderate umbilical hernia containing fat and ascitic fluid. 9 mm nonobstructing left renal stone. Paracentesis 01/05/2024 IMPRESSION: 1. Successful ultrasound-guided paracentesis yielding 3800 mL of yellow fluid. Paracentesis 01/01/2024 IMPRESSION: 1. Successful ultrasound-guided paracentesis yielding 4100 mL of am ashwini-colored fluid. Paracentesis 12/30/2023 IMPRESSION: 1. Successful ultrasound-guided paracentesis yielding 5000 mL of yellowish fluid. CT abd/pelvis w/contrast 12/29/2023 IMPRESSION: Cirrhosis with portal hypertension. Large volume ascites. Moderate body wall edema. Paracentesis 10/22/2023 IMPRESSION: 1. Successful ultrasound-guided paracentesis yielding 5000 mL of fidencio-colored fluid. Paracentesis 07/09/2023 IMPRESSION: 1. Successful ultrasound-guided paracentesis yielding 3000 mL of yellow fluid. Review of Systems Constitutional: Constitutional: Reports as per HPI and Reports fatigue ENT: Reports as per HPI Cardiovascular: Cardiovascular: Reports as per HPI, Denies chest pain, Reports pedal edema, Reports leg edema and Reports dyspnea (with activity) Respiratory: Respiratory: Denies cough and Reports dyspnea on exertion Gastrointestinal: Gastrointestinal: Reports as per HPI Musculoskeletal: Musculoskeletal: Reports as per HPI Integumentary/Breasts: Skin/Breast: Reports as per HPI Psychiatric: Psychiatric: Reports as per HPI Endocrine: Endocrine: Reports no additional endocrine complaints Hematologic/Lymphatic: Hematologic/Lymphatic: Reports no additional hematologic/lymphatic complaints [facility] Past Medical History Medical History Alcohol use REGIS positive Colon cancer screening Decompensation of cirrhosis of liver Elevated liver enzymes Esophageal varices with bleeding Hypothyroidism 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 Nicotine dependence, cigarettes, with other nicotine-induced disorders Portal hypertension Pulmonary edema SBP (spontaneous bacterial peritonitis) Thrombocytopenia Surgical History Surgical History Abnormal findings on esophagogastroduodenoscopy (EGD) (~10/2023) with banding Family History Family History (Updated 02/08/24 @ 02:25 by Osorio Roman RN) Sibling Alcohol abuse Brother Mother FH: kidney cancer Cerebrovascular accident Social History Social History Social History: Patient currently lives with her dad. She has 1 child at the daughter and she states that the daughter had recently moved. She also states she did have her primary however primary recently left. She does wish to be a full code. All code status is were reviewed with the patient including DNR, DNI current pressors, BiPAP and CPAP. Patient wishes to be a full code at that time. She also likes her friend Franko to be her surrogate. Smoking packs per day: 0.25 Smoking cigarettes per day: 5.0 Years smoked: 15 Smoking pack-years: 3.75 Smoking status: Former smoker Tobacco type: cigarettes Smoking end date: 11/26/23 Alcohol intake: former Drinks per week: 4 Substance use: never Substance use type: does not use Do You Feel Safe in your Home?: Yes Lack of Transportation: No Lack of Food: Never True Current Housing: I Have Housing Concerned About Future Housing: No Difficulty Paying Gas/Electric Bills: No Difficulty Paying for Meds: No Currently Unemployed: No Education: Associate Degree Difficulty w/ Childcare or Family Care: No Living arrangements: with family Occupation/Education: other Additional occupation/education comments: disability Gender identity (if verbalized by the patient): Female Sexual Orientation (if Verbalized by the Patient): Straight or Heterosexual Spiritual care concerns: No Agree to blood products: Yes Meds Home Medications and Allergies Home Medications Medication Instructions Recorded Confirmed Type levothyroxine 200 mcg tablet 200 mcg PO DAILY 06/27/23 02/08/24 History calcium 600 mg (as carbonate)-vit 1 tablet PO DAILY 02/08/24 02/08/24 History D3 10 mcg (400 unit)-minerals tablet mecobalamin (vitamin B12) 1,000 1,000 mcg PO DAILY 02/08/24 02/08/24 History mcg chewable tablet (B12 Active) Allergies Allergy/AdvReac Type Severity Reaction Status Date / Time amoxicillin Allergy Hives Verified 02/08/24 01:28 latex Allergy Rash Verified 02/08/24 01:28 Penicillins Allergy Hives Verified 02/08/24 01:28 hydromorphone [From Dilaudid] AdvReac Itching Verified 02/08/24 03:42 Vital Signs Vital Signs - 24 hr 02/08/24 12:00 02/08/24 16:00 02/08/24 20:00 Temperature 98.4 F 98.7 F Pulse Rate 92 86 Respiratory Rate 18 14 Blood Pressure 130/69 123/74 Pulse Oximetry 94 96 Oxygen Delivery Room Air 02/08/24 20:40 02/09/24 00:55 02/09/24 05:35 Temperature 96.8 F L 96.6 F L 97.2 F L Pulse Rate 88 83 85 Respiratory Rate 20 16 20 Blood Pressure 119/63 116/69 113/72 Pulse Oximetry 93 90 92 Oxygen Delivery 02/09/24 07:52 Temperature 98.5 F Pulse Rate 85 Respiratory Rate 18 Blood Pressure 131/85 Pulse Oximetry 96 Oxygen Delivery Exam Const: General: cooperative, comfortable, no acute distress and well developed Orientation/consciousness: oriented to person, oriented to place, oriented to time and patient oriented x3 HENMT: Head: normal to inspection, normocephalic and atraumatic Mouth: Yes Normal oral and palatal mucosa present and Yes moist mucous membranes Eyes: General: appearance normal, both eyes and all related structures Conjunctivae: conjunctivae normal Sclera: scleral abnormality (icterus) bilateral Pupils: Equal, round and reactive pupils present Neck: Neck: normal visual inspection Chest: Chest palpation & inspection: normal inspection of the chest Resp: Effort & Inspection: normal respiratory effort and able to speak in complete sentences Auscultation: clear to auscultation bilaterally Cardio: Jugular venous distension: no JVD Rate: regular rate Rhythm: regular rhythm Heart sounds: S1 normal heart sound present and S2 normal heart sound present GI: Inspection: normal to inspection GI Palp: Yes Soft to palpation, Yes Firmness to palpation present (GI), No Tenderness to palpation present (GI), No Guarding due to palpation present (GI) and No No hepatosplenomegaly present (unable to assess due to ascites) Auscultation: normal bowel sounds Rectal Exam: deferred Skin: General skin exam: normal color and no rashes or lesions noted Lesions: lesion noted Neuro: General: oriented to person, oriented to place, oriented to time and patient oriented x3 Cranial nerves: Yes Equal, round and reactive pupils present Speech: normal speech Extrem: General: edema and pedal edema Other: 3+ edema to bilateral lower extremities Psych: Appearance: grossly normal and well kempt Affect: normal affect Results Labs 02/09/24 05:45 02/09/24 05:45 Labs: Short CBC 02/08/24 02/09/24 Range/Units 16:00 05:45 WBC 4.4 L 4.1 L (4.5-10.0) K/mm3 Hgb 8.3 L 8.2 L (12.0-15.0) g/dL Hct 27.5 L 28.9 L (37.0-47.0) % Plt Count 103 L 102 L (150-375) k/mm3 [facility] 02/08/24 02/09/24 16:00 05:45 Sodium 133 L 131 L Potassium 3.8 3.8 Chloride 103 103 Carbon Dioxide 22 19 L BUN 14 15 Creatinine 0.80 0.60 L Glucose 87 79 Calcium 8.0 L 8.2 L Liver Function 02/08/24 02/09/24 Range/Units 16:00 05:45 Total Bilirubin 4.2 H 5.1 H (0.2-1.3) mg/dL AST 51 H 55 H (14-36) U/L ALT 19 17 (6-35) U/L Alkaline Phosphatase 120 109 (38-126) U/L Albumin 2.7 L 3.1 L (3.5-5.1) g/dL
[2024-02-09 12:08] LABS: Appearance Peritoneal Fluid Clear (Clear); Color Peritoneal Fluid Yellow (Colorless); Source Peritoneal Fluid Peritoneal Fluid
[2024-02-09 12:09] LABS: Lymphocytes Peritoneal Fluid 56 %; Macrophages Peritoneal Fluid 16 %; Monocytes Peritoneal Fluid 27 %; Neutrophils Peritoneal Fluid 1 % (0-25); Nucleated Cells Peritoneal Flu 84 /uL (0-500); RBC Peritoneal Fluid < 2000 /uL (0-10000)
[2024-02-09] MEDS: SPIRONOLACTONE 50 MG TABLET 100 MG PO (12:43)
[2024-02-09] MEDS: PANTOPRAZOLE 40 MG TABLET PO (12:43)
[2024-02-09] MEDS: ALBUMIN HUMAN 25% 25 GM/100 ML 100 ML IVPB (13:11)
[2024-02-09] MEDS: MORPHINE SULFATE (*CRX) 4 MG/ML INJ IV PUSH (17:45)
[2024-02-10] MEDS: MORPHINE SULFATE (*CRX) 4 MG/ML INJ IV PUSH ×2 (01:16→09:26)
[2024-02-10 04:40] VITALS: BP 111/59; PULSE 83; RESP 16; TEMP 36.8; O2SAT 92
[2024-02-10] MEDS: LEVOTHYROXINE SODIUM 100 MCG TABLET 200 MCG PO (05:45)
[2024-02-10 06:51] LABS: Basophils Absolute Auto 0.1 K/mm3 (0.0-0.1); Basophils Percent Auto 1.2 % (0.2-1.2); Eosinophils Absolute Auto 0.2 K/mm3 (0-0.3); Eosinophils Percent Auto 4.3 % (0-4.4); Hematocrit 26.1 % (37.0-47.0); Hemoglobin 7.8 g/dL (12.0-15.0); Immature Granulocyte Absolute 0.01 K/mm3 (0.00-0.031); Immature Granulocyte Percent A 0.2 % (0-0.5); Immature Platelet Fraction Pct 1.9 % (0.9-11.2); Lymphocytes Percent Auto 26.5 % (18.3-44.2); Mean Corpuscular HGB Conc 29.9 g/dl (32-36); Mean Corpuscular Volume 100.4 fl (80-100); Mean Platelet Volume 10.2 fl (7.4-10.4); Monocytes Absolute Auto 0.6 K/mm3 (0.1-0.6); Monocytes Percent Auto 15.2 % (2.6-8.5); Neutrophils Absolute Auto 2.2 K/mm3 (1.3-6.7); Neutrophils Percent Auto 52.6 % (45.5-73.1); Platelet Count Result 99 k/mm3 (150-375); Red Cell Distribution Width 18.4 % (11.5-14.5); White Blood Count 4.2 K/mm3 (4.5-10.0)
[2024-02-10 07:00] LABS: Alanine Aminotransferase 17 U/L (6-35); Albumin Level 2.7 g/dL (3.5-5.1); Alkaline Phosphatase 98 U/L (38-126); Anion Gap 4 mmol/L (4-12); Aspartate Amino Transferase 46 U/L (14-36); Bilirubin,Total 4.5 mg/dL (0.2-1.3); Blood Urea Nitrogen 15 mg/dL (7-17); Calcium 7.8 mg/dL (8.4-10.2); Carbon Dioxide 26 mmol/L (22-30); Chloride 104 mmol/L (98-107); Estimated CRCL calculation 107 ml/min; Estimated Glomerular Filt Rate > 60; Glucose 91 mg/dL (65-110); Potassium 3.3 mmol/L (3.4-5.0); Sodium 134 mmol/L (137-145)
[2024-02-10 07:56] LABS: Hypochromasia 1+; Platelet Estimate Slightly Decreased (Adequate)
[2024-02-10 07:57] LABS: Schistocytes None Seen
[2024-02-10 08:00] VITALS: BP 104/54; PULSE 85; RESP 16; TEMP 36.7; O2SAT 97
[2024-02-10] MEDS: SPIRONOLACTONE 50 MG TABLET 100 MG PO (09:14)
[2024-02-10] MEDS: FUROSEMIDE INJ 40 MG/4 ML VIAL IV PUSH ×2 (09:14→18:18)
[2024-02-10] MEDS: PANTOPRAZOLE 40 MG TABLET PO (09:15)
[2024-02-10 12:00] VITALS: BP 110/62; PULSE 82; RESP 17; TEMP 36.9; O2SAT 95
--- NOTE | 2024-02-10 15:23 | P.PNIM_ITS ---
Progress Note: A&P Assessment and Plan (1) Cirrhosis: Qualifiers: Ascites presence: with ascites Hepatic cirrhosis type: unspecified hepatic cirrhosis Qualified Code(s): K74.60 - Unspecified cirrhosis of liver; R18.8 - Other ascites Code(s): K74.60 - Unspecified cirrhosis of liver Status: Acute Assessment and Plan: * Decompensated cirrhosis requiring frequent paracentesis * Autoimmune cirrhosis was being worked up in the past * She does have history of alcohol abuse in the past, unsure if this is primary cause considering in her history she was noted to have BACON * She needs to go to hepatobiliary doctor for further workup of underlying cause however has not been set up an appointment. * GI following * Patient agreeable to transfer to [facility] for additional workup. [facility] called, awaiting call back. (2) Ascites: Qualifiers: Ascites type: other type Qualified Code(s): R18.8 - Other ascites Code(s): R18.8 - Other ascites Status: Acute Assessment and Plan: Patient has chronic cirrhosis of the liver requiring paracentesis at least once a week according to the patient. Patient has been noncompliant with medications at home and currently does not have a primary care physician and has not followed up with hepatobiliary team in [place] as recommended her last few admissions. Her most recent paracentesis was last week with at least 4-4.5L removed. She was thought to have spontaneous bacterial peritonitis in the past verses autoimmune hepatitis. Presents today with large amount of ascites and anasarca. * Continue diuresis with Lasix 40 mg IV b.i.d. * Continue Spironolactone * Continue to watch blood pressure after paracentesis tomorrow due to low blood pressure readings in the past requiring midodrine * GI consulted * Patient agreeable to transfer to [facility], Call placed to [facility] for Hepatob[facility] services. * CT of abdomen/pelvis showed cirrhosis of the liver with associated splenomegaly and large amount of abdominal pelvic ascites, small to moderate umbilical hernia containing fat and ascites fluid, 9 mm nonobstructing left renal stone * judd catheter in place * Continue fluid restriction * Continue cardiac monitoring * Peritoneal fluid from previous cultures on 12/30/2023 were negative for any bacteria * Paracentesis yesterday with 4500ml fluid removal. (3) Portal hypertension: Code(s): K76.6 - Portal hypertension Status: Acute Assessment and Plan: * Continue spironolactone 100 mg daily (4) TAB positive: Code(s): R76.8 - Other specified abnormal immunological findings in serum Status: Acute Assessment and Plan: * TAB screen positive with a TAB titer greater than 1 : 1280A, TAB titer 2 1:160A back in June of this year * ? Autoimmune hepatitis in the past * All other immunology labs were negative (5) Eosinophilia: Code(s): D72.10 - Eosinophilia, unspecified Status: Acute Assessment and Plan: * Eos 7.3>5.7>5.3>5.1 * consider Eosinophilic cirrhosis, however this is less likely as it is rare?? (6) Pancytopenia: Code(s): D61.818 - Other pancytopenia Status: Acute Assessment and Plan: * Likely secondary to decompensated cirrhosis * Continue to trend (7) Hypothyroidism: Code(s): E03.9 - Hypothyroidism, unspecified Status: Acute Assessment and Plan: * Continue Synthroid * TSH 68.600, free T4 1.14, total T3 0.64 * Patient has been noncompliant with her medications at home and we will hold off on increasing her Synthroid at this time Time Spent With Patient Time: Extra time spent with patient and coordinating transfer to [facility] for further work up of her condition. >90minutes of time Time with patient: Greater than 35 minutes Subjective Date/time seen: 02/10/24 15:23 Interval history: Interval history: This is a 53 year old female with a significant past medical history of hepatic cirrhosis who presented with ascites and shortness of breath. 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 Initial labs shown WBC 4.0, RBC 2.87, Hgb 8.7, Plt 104, ESR 42, Na+ 132, potassium 3.2, bicarb 21, Lactic acid 2.8>1.5, total bilirubin 4.4, AST 47, Alk phos 132, troponin negative, Albumin 2.8, TSH 68.600, T3 0.64. Respiratory panel was obtained and was negative for influenza A and B, RSV, and COVID. Subjective: 02/08/24: Patient is well known to our service and has been going from hospital to hospital getting weekly paracentesis. Her last session was last week and she had over 4L fluid removed. She is noncompliant with home medications and has not seen her primary care doctor for any refills. She was told back in June of this year that she needs to get in with Hepatology for further care as she has decompensated cirrhosis of the liver however she has not made the appointment. She states that her insurance is BC/BS and that [facility] no longer accepts that insurance and she has to go to [facility] facility for travel pt. She was on lasix however she can't remember the last time she took that as she has been out for quite some time. Past work up was concerning for autoimmune hepatitis considering TAB and IgG were positive versus SBP. She reports SOB, ascites, anasarca with difficulty moving around. 02/09/24: Patient reports feeling much better after paracentesis. She had a total of 4.5L removed. I discussed the option of transferring [facility] to [facility] for hepat[facility] work up as well as immunology for her cirrhosis. She needs to check with friends to see if they are willing to come get her vehicle from here and would be able to pick her up at discharge. She would like a day to think about this option considering she has been needing to schedule an appointment or get established with hepatology at [facility]. We will revisit conversation again tomorrow. Labs reviewed. 02/10/24: Labs reviewed. Patient is receptive to transfer to [facility]. Call placed to [facility] for acceptance. Awaiting call back. Review of Systems Review of Systems: All systems reviewed & are unremarkable except as noted in HPI and below Constitutional: Constitutional: Reports as per HPI, Reports no additional constitutional complaints and Reports fever(s) Eyes: Eyes: Reports as per HPI and Reports no additional eye complaints ENT: Reports system reviewed and no additional complaints, except as documented and Reports as per HPI Cardiovascular: Cardiovascular: Reports as per HPI and Reports no additional cardiovascular complaints Respiratory: Respiratory: Reports as per HPI and Reports no additional respiratory complaints Gastrointestinal: Gastrointestinal: Reports as per HPI and Reports no additional gastrointestinal complaints Genitourinary: Genitourinary: Reports no additional female genitourinary complaints and Reports as per HPI Musculoskeletal: Musculoskeletal: Reports no additional musculoskeletal complaints and Reports as per HPI Integumentary/Breasts: Skin/Breast: Reports system reviewed and no additional complaints, except as docu and Reports as per HPI Neurologic: Reports system reviewed and no additional complaints, except as documented and Reports as per HPI Psychiatric: Psychiatric: Reports no additional psychiatric complaints and Reports as per HPI Exam Narrative: General: In no acute distress, well nourished Eyes: EOMI, PERRLA, sclera jaundiced, bulged Cardiac: Normal S1 and S2. No murmur, gallops or friction rubs, peripheral pulses intact. Respiratory:mild Crackles noted in bases, no adventitious lung sounds,currently on room air Gastrointestinal:Large,soft with umbilical herniation, Bowel sounds positive : voiding minimal amount Extremities: moves all extremities, anasarca present, BLE pitting edema Skin:Jaundiced Neuro: Alert and oriented x4 Objective Data Vital Signs Vital Signs: Vital Signs - 24 hr 02/09/24 16:00 02/09/24 20:05 02/09/24 23:40 Temperature 98 F 98.7 F 98.7 F Pulse Rate 84 87 85 Respiratory Rate 18 16 16 Blood Pressure 123/68 123/57 L 107/62 Pulse Oximetry 95 95 95 Oxygen Delivery 02/10/24 04:40 02/10/24 08:00 02/10/24 08:00 Temperature 98.2 F 98.1 F Pulse Rate 83 85 Respiratory Rate 16 16 Blood Pressure 111/59 L 104/54 L Pulse Oximetry 92 97 Oxygen Delivery Room Air 02/10/24 12:00 Temperature 98.4 F Pulse Rate 82 Respiratory Rate 17 Blood Pressure 110/62 Pulse Oximetry 95 Oxygen Delivery Intake/Output Intake/Output: Intake & Output 02/07/24 02/08/24 02/09/24 02/10/24 23:59 23:59 23:59 23:59 Intake Total 7725 570 880 Output Total 6344 900 Balance 1303 -6298 -20 Meds/Results Medications: Active Medications Generic Name Dose Route Start Last Admin Trade Name Freq PRN Reason Stop Dose Admin Al Hydrox/Mg Hydrox/Simethicone 30 ml 02/08/24 01:11 Mag Hydrox/Al Hydrox/Simeth 30 Ml Udc PO Q6H PRN Indigestion Furosemide 40 mg 02/08/24 09:00 02/10/24 09:14 Furosemide Inj 40 Mg/4 Ml Vial IV PUSH 40 mg BID LENNY Administration Levothyroxine Sodium 200 mcg 02/09/24 06:30 02/10/24 05:45 Levothyroxine Sodium 100 Mcg Tablet PO 200 mcg DAILY@0630 LENNY Administration Morphine Sulfate 4 mg 02/08/24 03:24 02/10/24 09:26 Morphine Sulfate (*Crx) 4 Mg/Ml Inj IV PUSH 4 mg Q6H PRN Administration Pain Rated 7-10 Pantoprazole Sodium 40 mg 02/09/24 09:00 02/10/24 09:15 Pantoprazole 40 Mg Tablet PO 40 mg QAM LENNY Administration Polyethylene Glycol 17 gm 02/08/24 01:11 Polyethylene Glycol 3350 17 Gm Powd.Pack PO QAM PRN Constipation Spironolactone 100 mg 02/08/24 16:25 02/10/24 09:14 Spironolactone 50 Mg Tablet PO 100 mg QAM LENNY Administration Radiology Results: ITS Impressions Chest X-Ray 02/07/24 20:06 IMPRESSION: Mild interstitial edema. 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 Small to moderate umbilical hernia containing fat and ascitic fluid. 9 mm nonobstructing left renal stone. Paracentesis Ultrasound 02/09/24 11:24 IMPRESSION: 1. Successful ultrasound-guided paracentesis yielding 4500 mL of dark yellow fluid. Labs Labs: Laboratory Results - last 24 hr 02/10/24 06:01 WBC 4.2 L RBC 2.60 L Hgb 7.8 L Hct 26.1 L MCV 100.4 H D MCH 30.0 MCHC 29.9 L RDW 18.4 H Plt Count 99 L MPV 10.2 Immature Gran % (Auto) 0.2 Neut % (Auto) 52.6 Lymph % (Auto) 26.5 [place] % (Auto) 15.2 H Eos % (Auto) 4.3 Baso % (Auto) 1.2 Lymph # (Auto) 1.10 [place] # (Auto) 0.6 Eos # (Auto) 0.2 Baso # (Auto) 0.1 Abs Immat Gran (auto) 0.01 Absolute Neuts (auto) 2.2 Absolute Nucleated RBC 0.000 Nucleated RBC % 0.0 Platelet Estimate Slightly decreased % Immature Plt Fraction 1.9 Hypochromasia 1+ Schistocytes None seen Sodium 134 L Potassium 3.3 L Chloride 104 Carbon Dioxide 26 Anion Gap 4 BUN 15 Creatinine 0.70 Estim Creat Clear Calc 107 Estimated GFR > 60 Glucose 91 Calcium 7.8 L Total Bilirubin 4.5 H AST 46 H ALT 17 Alkaline Phosphatase 98 Total Protein 7.0 Albumin 2.7 L Quality VTE Prophylaxis VTE prophylaxis: mechanical ordered
[2024-02-10 16:00] VITALS: BP 102/58; PULSE 78; RESP 17; TEMP 36.6; O2SAT 98
--- NOTE | 2024-02-10 17:49 | P.PNGI_ITS ---
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- pending transfer to tertiary center and eventually may need liver transplant evaluation 2g na diet, nutrition support previous work up with elevated TAB but negative actin IgG, LKM and ama (2) Ascites: Qualifiers: Ascites type: other type Qualified Code(s): R18.8 - Other ascites Code(s): R18.8 - Other ascites Status: Acute Assessment and Plan: s/p paracentesis no sbp on lasix, will increase aldactone- normal renal function and lytes 2g na diet better after more fluid was removed (3) Macrocytic anemia: Code(s): D53.9 - Nutritional anemia, unspecified Status: Acute (4) Thrombocytopenia: Code(s): D69.6 - Thrombocytopenia, unspecified Status: Acute Subjective Date/time seen: 02/10/24 17:49 Interval history: no major changes, she is eating Review of Systems Review of Systems: All systems reviewed & are unremarkable except as noted in HPI and below Exam Const: General: comfortable and no acute distress Other: chronically ill HENMT: Face/Nose/Sinus: Normal nares present Eyes: General: appearance normal, both eyes and all related structures Sclera: scleral abnormality (icteric) Neck: Neck: supple Resp: Auscultation: clear to auscultation bilaterally Cardio: Rate: regular rate Rhythm: regular rhythm GI: Inspection: non-distended GI Palp: Yes Soft to palpation and No Tenderness to palpation present (GI) Other: + ascites Skin: General skin exam: no rashes or lesions noted Neuro: Speech: normal speech Motor exam (neuro): 5/5 motor strength present throughout Extrem: General: pedal edema Psych: Mental Status: mental status grossly normal Objective Data Vital Signs Vital Signs: Vital Signs - 24 hr 02/09/24 20:05 02/09/24 23:40 02/10/24 04:40 Temperature 98.7 F 98.7 F 98.2 F Pulse Rate 87 85 83 Respiratory Rate 16 16 16 Blood Pressure 123/57 L 107/62 111/59 L Pulse Oximetry 95 95 92 Oxygen Delivery 02/10/24 08:00 02/10/24 08:00 02/10/24 12:00 Temperature 98.1 F 98.4 F Pulse Rate 85 82 Respiratory Rate 16 17 Blood Pressure 104/54 L 110/62 Pulse Oximetry 97 95 Oxygen Delivery Room Air 02/10/24 16:00 Temperature 98 F Pulse Rate 78 Respiratory Rate 17 Blood Pressure 102/58 L Pulse Oximetry 98 Oxygen Delivery Intake/Output Intake/Output: Intake & Output 02/07/24 02/08/24 02/09/24 02/10/24 23:59 23:59 23:59 23:59 Intake Total 1301 576 880 Output Total 4419 8560 Balance 9880 -0836 -6796 Meds/Results Medications: Active Medications Generic Name Dose Route Start Last Admin Trade Name Freq PRN Reason Stop Dose Admin Al Hydrox/Mg Hydrox/Simethicone 30 ml 02/08/24 01:11 Mag Hydrox/Al Hydrox/Simeth 30 Ml Udc PO Q6H PRN Indigestion Furosemide 40 mg 02/08/24 09:00 02/10/24 09:14 Furosemide Inj 40 Mg/4 Ml Vial IV PUSH 40 mg BID LENNY Administration Levothyroxine Sodium 200 mcg 02/09/24 06:30 02/10/24 05:45 Levothyroxine Sodium 100 Mcg Tablet PO 200 mcg DAILY@0630 LENNY Administration Morphine Sulfate 4 mg 02/08/24 03:24 02/10/24 09:26 Morphine Sulfate (*Crx) 4 Mg/Ml Inj IV PUSH 4 mg Q6H PRN Administration Pain Rated 7-10 Pantoprazole Sodium 40 mg 02/09/24 09:00 02/10/24 09:15 Pantoprazole 40 Mg Tablet PO 40 mg QAM LENNY Administration Polyethylene Glycol 17 gm 02/08/24 01:11 Polyethylene Glycol 3350 17 Gm Powd.Pack PO QAM PRN Constipation Spironolactone 150 mg 02/11/24 09:00 Spironolactone 50 Mg Tablet PO QAM LENNY Radiology Results: ITS Impressions Chest X-Ray 02/07/24 20:06 IMPRESSION: Mild interstitial edema. 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 Small to moderate umbilical hernia containing fat and ascitic fluid. 9 mm nonobstructing left renal stone. Paracentesis Ultrasound 02/09/24 11:24 IMPRESSION: 1. Successful ultrasound-guided paracentesis yielding 4500 mL of dark yellow fluid. Labs Labs: Laboratory Results - last 24 hr 02/10/24 06:01 WBC 4.2 L RBC 2.60 L Hgb 7.8 L Hct 26.1 L MCV 100.4 H D MCH 30.0 MCHC 29.9 L RDW 18.4 H Plt Count 99 L MPV 10.2 Immature Gran % (Auto) 0.2 Neut % (Auto) 52.6 Lymph % (Auto) 26.5 [place] % (Auto) 15.2 H Eos % (Auto) 4.3 Baso % (Auto) 1.2 Lymph # (Auto) 1.10 [place] # (Auto) 0.6 Eos # (Auto) 0.2 Baso # (Auto) 0.1 Abs Immat Gran (auto) 0.01 Absolute Neuts (auto) 2.2 Absolute Nucleated RBC 0.000 Nucleated RBC % 0.0 Platelet Estimate Slightly decreased % Immature Plt Fraction 1.9 Hypochromasia 1+ Schistocytes None seen Sodium 134 L Potassium 3.3 L Chloride 104 Carbon Dioxide 26 Anion Gap 4 BUN 15 Creatinine 0.70 Estim Creat Clear Calc 107 Estimated GFR > 60 Glucose 91 Calcium 7.8 L Total Bilirubin 4.5 H AST 46 H ALT 17 Alkaline Phosphatase 98 Total Protein 7.0 Albumin 2.7 L
[2024-02-10 21:15] VITALS: BP 136/65; PULSE 79; RESP 20; TEMP 36.5; O2SAT 96
[2024-02-11 00:40] VITALS: BP 119/70; PULSE 80; RESP 16; TEMP 36.8; O2SAT 92
[2024-02-11 04:35] VITALS: BP 109/58; PULSE 80; RESP 16; TEMP 36.5; O2SAT 94
[2024-02-11] MEDS: LEVOTHYROXINE SODIUM 100 MCG TABLET 200 MCG PO (05:31)
[2024-02-11 06:43] LABS: Alanine Aminotransferase 18 U/L (6-35); Alkaline Phosphatase 108 U/L (38-126); Anion Gap 6 mmol/L (4-12); Aspartate Amino Transferase 55 U/L (14-36); Bilirubin,Total 4.6 mg/dL (0.2-1.3); Blood Urea Nitrogen 15 mg/dL (7-17); Calcium 7.8 mg/dL (8.4-10.2); Carbon Dioxide 23 mmol/L (22-30); Chloride 104 mmol/L (98-107); Estimated CRCL calculation 107 ml/min; Estimated Glomerular Filt Rate > 60; Glucose 96 mg/dL (65-110); Potassium 3.4 mmol/L (3.4-5.0); Sodium 133 mmol/L (137-145)
[2024-02-11 08:00] VITALS: BP 114/63; PULSE 85; RESP 18; TEMP 36.4; O2SAT 93
[2024-02-11 08:05] LABS: Basophils Percent Auto 1.1 % (0.2-1.2); Eosinophils Absolute Auto 0.1 K/mm3 (0-0.3); Eosinophils Percent Auto 3.9 % (0-4.4); Hematocrit 26.7 % (37.0-47.0); Hemoglobin 8.3 g/dL (12.0-15.0); Immature Granulocyte Absolute 0.02 K/mm3 (0.00-0.031); Immature Granulocyte Percent A 0.6 % (0-0.5); Immature Platelet Fraction Pct 1.4 % (0.9-11.2); Lymphocytes Absolute Auto 0.91 K/mm3 (0.9-3.2); Lymphocytes Percent Auto 25.2 % (18.3-44.2); Mean Corpuscular HGB Conc 31.1 g/dl (32-36); Mean Corpuscular Hemoglobin 30.9 pg (26-34); Mean Corpuscular Volume 99.3 fl (80-100); Mean Platelet Volume 9.6 fl (7.4-10.4); Monocytes Absolute Auto 0.7 K/mm3 (0.1-0.6); Monocytes Percent Auto 18.3 % (2.6-8.5); Neutrophils Absolute Auto 1.8 K/mm3 (1.3-6.7); Neutrophils Percent Auto 50.9 % (45.5-73.1); Red Blood Count 2.69 M/mm3 (4.2-5.4); Red Cell Distribution Width 18.2 % (11.5-14.5); White Blood Count 3.6 K/mm3 (4.5-10.0)
[2024-02-11 08:40] LABS: Platelet Count Result 97 k/mm3 (150-375)
[2024-02-11] MEDS: SPIRONOLACTONE 50 MG TABLET 150 MG PO (09:42)
[2024-02-11] MEDS: PANTOPRAZOLE 40 MG TABLET PO (09:43)
[2024-02-11] MEDS: FUROSEMIDE INJ 40 MG/4 ML VIAL IV PUSH ×2 (09:43→18:17)
[2024-02-11] MEDS: MORPHINE SULFATE (*CRX) 4 MG/ML INJ IV PUSH (09:54)
--- NOTE | 2024-02-11 11:10 | P.PNIM_ITS ---
Progress Note: A&P Assessment and Plan (1) Cirrhosis: Qualifiers: Ascites presence: with ascites Hepatic cirrhosis type: unspecified hepatic cirrhosis Qualified Code(s): K74.60 - Unspecified cirrhosis of liver; R18.8 - Other ascites Code(s): K74.60 - Unspecified cirrhosis of liver Status: Acute Assessment and Plan: * Decompensated cirrhosis requiring frequent paracentesis * Autoimmune cirrhosis was being worked up in the past * She does have history of alcohol abuse in the past, unsure if this is primary cause considering in her history she was noted to have BACON * She needs to go to hepatobiliary doctor for further workup of underlying cause however has not been set up an appointment. * GI following and increased her spironolactone to 150 mg daily * will give albumin today * Accepted at [facility] by [facility] medicine Dr. Velarde with Dr. Stover Imaging Technologist accepting consult for further workup. Currently waiting on a bed at [facility]. (2) Ascites: Qualifiers: Ascites type: other type Qualified Code(s): R18.8 - Other ascites Code(s): R18.8 - Other ascites Status: Acute Assessment and Plan: Patient has chronic cirrhosis of the liver requiring paracentesis at least once a week according to the patient. Patient has been noncompliant with medications at home and currently does not have a primary care physician and has not followed up with hepatobiliary team in [place] as recommended her last few admissions. Her most recent paracentesis was last week with at least 4-4.5L removed. She was thought to have spontaneous bacterial peritonitis in the past verses autoimmune hepatitis. Presents today with large amount of ascites and anasarca. * Continue diuresis with Lasix 40 mg IV b.i.d. * Continue Spironolactone at 150 mg daily * Continue to watch blood pressure after paracentesis tomorrow due to low blood pressure readings in the past requiring midodrine * GI following * Patient agreeable to transfer to [facility], Call placed to [facility] for Hepatobiliary services and was accepted by [facility] medicine Dr. Velarde with Dr. Stover Imaging Technologist accepting consult for further workup. * CT of abdomen/pelvis showed cirrhosis of the liver with associated splenomegaly and large amount of abdominal pelvic ascites, small to moderate umbilical hernia containing fat and ascites fluid, 9 mm nonobstructing left renal stone * judd catheter in place * Continue fluid restriction * Continue cardiac monitoring * Peritoneal fluid from previous cultures on 12/30/2023 were negative for any bacteria * Paracentesis yesterday with 4500ml fluid removal. * abdomen appears distended and taunt again today we will go ahead and make her NPO for another ultrasound-guided paracentesis tomorrow (3) Portal hypertension: Code(s): K76.6 - Portal hypertension Status: Acute Assessment and Plan: * Continue spironolactone 100 mg daily (4) TAB positive: Code(s): R76.8 - Other specified abnormal immunological findings in serum Status: Acute Assessment and Plan: * TAB screen positive with a TAB titer greater than 1 : 1280A, TAB titer 2 1:160A back in June of this year * ? Autoimmune hepatitis in the past * All other immunology labs were negative (5) Eosinophilia: Code(s): D72.10 - Eosinophilia, unspecified Status: Acute Assessment and Plan: * Eos 7.3>5.7>5.3>5.1 * consider Eosinophilic cirrhosis, however this is less likely as it is rare?? (6) Pancytopenia: Code(s): D61.818 - Other pancytopenia Status: Acute Assessment and Plan: * Likely secondary to decompensated cirrhosis * Continue to trend (7) Hypothyroidism: Code(s): E03.9 - Hypothyroidism, unspecified Status: Acute Assessment and Plan: * Continue Synthroid * TSH 68.600, free T4 1.14, total T3 0.64 * Patient has been noncompliant with her medications at home and we will hold off on increasing her Synthroid at this time Plan Disposition: Accepted at [facility] by hospital medicine Dr. Velarde with Dr. Stover Imaging Technologist accepting consult for further workup. Currently waiting on a bed at [facility]. Time Spent With Patient Time with patient: Greater than 35 minutes Subjective Date/time seen: 02/11/24 11:10 Interval history: Patient reports pain up under her ribcage if she rates 8 out of 10. her abdomen is distended again and taunt. labs and imaging reviewed Review of Systems Review of Systems: All systems reviewed & are unremarkable except as noted in HPI and below Constitutional: Constitutional: Reports as per HPI, Reports no additional constitutional complaints and Reports fever(s) Eyes: Eyes: Reports as per HPI and Reports no additional eye complaints ENT: Reports system reviewed and no additional complaints, except as documented and Reports as per HPI Cardiovascular: Cardiovascular: Reports as per HPI and Reports no additional cardiovascular complaints Respiratory: Respiratory: Reports as per HPI and Reports no additional respiratory complaints Gastrointestinal: Gastrointestinal: Reports as per HPI and Reports no additional gastrointestinal complaints Genitourinary: Genitourinary: Reports no additional female genitourinary complaints and Reports as per HPI Musculoskeletal: Musculoskeletal: Reports no additional musculoskeletal complaints and Reports as per HPI Integumentary/Breasts: Skin/Breast: Reports system reviewed and no additional complaints, except as docu and Reports as per HPI Neurologic: Reports system reviewed and no additional complaints, except as documented and Reports as per HPI Psychiatric: Psychiatric: Reports no additional psychiatric complaints and Reports as per HPI Exam Narrative: General: In no acute distress, well nourished Eyes: EOMI, PERRLA, sclera jaundiced, bulged Cardiac: Normal S1 and S2. No murmur, gallops or friction rubs, peripheral pulses intact. Respiratory:mild Crackles noted in bases, no adventitious lung sounds,currently on room air Gastrointestinal:Large distended, taunt umbilical hernia the treating : Judd catheter in place, dark yellow urine noted Extremities: moves all extremities, anasarca present, BLE pitting edema- unchanged Skin:Jaundiced Neuro: Alert and oriented x4 Objective Data Vital Signs Vital Signs: Vital Signs - 24 hr 02/10/24 12:00 02/10/24 16:00 02/10/24 21:15 Temperature 98.4 F 98 F 97.7 F Pulse Rate 82 78 79 Respiratory Rate 17 17 20 Blood Pressure 110/62 102/58 L 136/65 Pulse Oximetry 95 98 96 02/11/24 00:40 02/11/24 04:35 02/11/24 08:00 Temperature 98.2 F 97.7 F 97.6 F Pulse Rate 80 80 85 Respiratory Rate 16 16 18 Blood Pressure 119/70 109/58 L 114/63 Pulse Oximetry 92 94 93 Intake/Output Intake/Output: Intake & Output 02/08/24 02/09/24 02/10/24 02/11/24 23:59 23:59 23:59 23:59 Intake Total 6685 103 9376 400 Output Total 6014 0403 1370 Balance 1303 -6298 -1030 -975 Meds/Results Medications: Active Medications Generic Name Dose Route Start Last Admin Trade Name Freq PRN Reason Stop Dose Admin Al Hydrox/Mg Hydrox/Simethicone 30 ml 02/08/24 01:11 Mag Hydrox/Al Hydrox/Simeth 30 Ml Udc PO Q6H PRN Indigestion Furosemide 40 mg 02/08/24 09:00 02/11/24 09:43 Furosemide Inj 40 Mg/4 Ml Vial IV PUSH 40 mg BID LENNY Administration Levothyroxine Sodium 200 mcg 02/09/24 06:30 02/11/24 05:31 Levothyroxine Sodium 100 Mcg Tablet PO 200 mcg DAILY@0630 LENNY Administration Morphine Sulfate 4 mg 02/08/24 03:24 02/11/24 09:54 Morphine Sulfate (*Crx) 4 Mg/Ml Inj IV PUSH 4 mg Q6H PRN Administration Pain Rated 7-10 Pantoprazole Sodium 40 mg 02/09/24 09:00 02/11/24 09:43 Pantoprazole 40 Mg Tablet PO 40 mg QAM LENNY Administration Polyethylene Glycol 17 gm 02/08/24 01:11 Polyethylene Glycol 3350 17 Gm Powd.Pack PO QAM PRN Constipation Spironolactone 150 mg 02/11/24 09:00 02/11/24 09:42 Spironolactone 50 Mg Tablet PO 150 mg QAM LENNY Administration Radiology Results: ITS Impressions Chest X-Ray 02/07/24 20:06 IMPRESSION: Mild interstitial edema. 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 Small to moderate umbilical hernia containing fat and ascitic fluid. 9 mm nonobstructing left renal stone. Paracentesis Ultrasound 02/09/24 11:24 IMPRESSION: 1. Successful ultrasound-guided paracentesis yielding 4500 mL of dark yellow fluid. Labs Labs: Laboratory Results - last 24 hr 02/11/24 02/11/24 06:28 07:58 WBC 3.6 L RBC 2.69 L Hgb 8.3 L Hct 26.7 L MCV 99.3 MCH 30.9 MCHC 31.1 L RDW 18.2 H Plt Count 97 L MPV 9.6 Immature Gran % (Auto) 0.6 H Neut % (Auto) 50.9 Lymph % (Auto) 25.2 [place] % (Auto) 18.3 H Eos % (Auto) 3.9 Baso % (Auto) 1.1 Lymph # (Auto) 0.91 [place] # (Auto) 0.7 H Eos # (Auto) 0.1 Baso # (Auto) 0.0 Abs Immat Gran (auto) 0.02 Absolute Neuts (auto) 1.8 Absolute Nucleated RBC 0.000 Nucleated RBC % 0.0 % Immature Plt Fraction 1.4 Sodium 133 L Potassium 3.4 Chloride 104 Carbon Dioxide 23 Anion Gap 6 BUN 15 Creatinine 0.70 Estim Creat Clear Calc 107 Estimated GFR > 60 Glucose 96 Calcium 7.8 L Total Bilirubin 4.6 H AST 55 H ALT 18 Alkaline Phosphatase 108 Total Protein 7.0 Albumin 3.0 L Quality VTE Prophylaxis VTE prophylaxis: mechanical ordered
[2024-02-11 12:00] VITALS: BP 114/60; PULSE 87; RESP 18; TEMP 36.4; O2SAT 93
[2024-02-11] MEDS: ALBUMIN HUMAN 25% 25 GM/100 ML 100 ML IVPB (15:30)
[2024-02-11] MEDS: oxyCODONE HCL (*CRX) 5 MG TAB IR PO (15:32)
--- NOTE | 2024-02-11 17:19 | PC.NURSE ---
[facility] transfer JAYESH bobo called to check on pt and to inform RN that there isn't a bed available at this time and to get an update on how the pt is doing
--- NOTE | 2024-02-11 17:46 | P.PNGI_ITS ---
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 (2) Ascites: Qualifiers: Ascites type: other type Qualified Code(s): R18.8 - Other ascites Code(s): R18.8 - Other ascites Status: Acute Assessment and Plan: s/p paracentesis- will attempt more tomorrow no sbp on lasix, aldactone was increased- normal renal function and lytes 2g na diet (3) Macrocytic anemia: Code(s): D53.9 - Nutritional anemia, unspecified Status: Acute (4) Thrombocytopenia: Code(s): D69.6 - Thrombocytopenia, unspecified Status: Acute Subjective Date/time seen: 02/11/24 17:46 Interval history: no changes, eating will get another paracentesis tomorrow Review of Systems Review of Systems: All systems reviewed & are unremarkable except as noted in HPI and below Exam Const: General: comfortable and no acute distress Other: chronically ill HENMT: Face/Nose/Sinus: Normal nares present Eyes: General: appearance normal, both eyes and all related structures Sclera: scleral abnormality (icteric) Neck: Neck: supple Resp: Auscultation: clear to auscultation bilaterally Cardio: Rate: regular rate Rhythm: regular rhythm GI: Inspection: non-distended GI Palp: Yes Soft to palpation and No Tenderness to palpation present (GI) Other: + ascites Skin: General skin exam: no rashes or lesions noted Neuro: Speech: normal speech Motor exam (neuro): 5/5 motor strength present throughout Extrem: General: pedal edema Psych: Mental Status: mental status grossly normal Objective Data Vital Signs Vital Signs: Vital Signs - 24 hr 02/10/24 21:15 02/11/24 00:40 02/11/24 04:35 Temperature 97.7 F 98.2 F 97.7 F Pulse Rate 79 80 80 Respiratory Rate 20 16 16 Blood Pressure 136/65 119/70 109/58 L Pulse Oximetry 96 92 94 02/11/24 08:00 02/11/24 12:00 Temperature 97.6 F 97.5 F L Pulse Rate 85 87 Respiratory Rate 18 18 Blood Pressure 114/63 114/60 Pulse Oximetry 93 93 Intake/Output Intake/Output: Intake & Output 02/08/24 02/09/24 02/10/24 02/11/24 23:59 23:59 23:59 23:59 Intake Total 5648 755 7148 400 Output Total 8898 1732 1375 Balance 1303 -6298 -1030 -975 Meds/Results Medications: Active Medications Generic Name Dose Route Start Last Admin Trade Name Freq PRN Reason Stop Dose Admin Al Hydrox/Mg Hydrox/Simethicone 30 ml 02/08/24 01:11 Mag Hydrox/Al Hydrox/Simeth 30 Ml Udc PO Q6H PRN Indigestion Furosemide 40 mg 02/08/24 09:00 02/11/24 09:43 Furosemide Inj 40 Mg/4 Ml Vial IV PUSH 40 mg BID LENNY Administration Levothyroxine Sodium 200 mcg 02/09/24 06:30 02/11/24 05:31 Levothyroxine Sodium 100 Mcg Tablet PO 200 mcg DAILY@0630 [facility] Administration Morphine Sulfate 4 mg 02/08/24 03:24 02/11/24 09:54 Morphine Sulfate (*Crx) 4 Mg/Ml Inj IV PUSH 4 mg Q6H PRN Administration Pain Rated 7-10 Oxycodone HCl 5 mg 02/11/24 14:49 02/11/24 15:32 Oxycodone Hcl (*Crx) 5 Mg Tab Ir PO 5 mg Q4H PRN Administration Pain Rated 7-10 Pantoprazole Sodium 40 mg 02/09/24 09:00 02/11/24 09:43 Pantoprazole 40 Mg Tablet PO 40 mg QAM LENNY Administration Polyethylene Glycol 17 gm 02/08/24 01:11 Polyethylene Glycol 3350 17 Gm Powd.Pack PO QAM PRN Constipation Spironolactone 150 mg 02/11/24 09:00 02/11/24 09:42 Spironolactone 50 Mg Tablet PO 150 mg QAM LENNY Administration Radiology Results: ITS Impressions Chest X-Ray 02/07/24 20:06 IMPRESSION: Mild interstitial edema. 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 Small to moderate umbilical hernia containing fat and ascitic fluid. 9 mm nonobstructing left renal stone. Paracentesis Ultrasound 02/09/24 11:24 IMPRESSION: 1. Successful ultrasound-guided paracentesis yielding 4500 mL of dark yellow fluid. Labs Labs: Laboratory Results - last 24 hr 02/11/24 02/11/24 06:28 07:58 WBC 3.6 L RBC 2.69 L Hgb 8.3 L Hct 26.7 L MCV 99.3 MCH 30.9 MCHC 31.1 L RDW 18.2 H Plt Count 97 L MPV 9.6 Immature Gran % (Auto) 0.6 H Neut % (Auto) 50.9 Lymph % (Auto) 25.2 [place] % (Auto) 18.3 H Eos % (Auto) 3.9 Baso % (Auto) 1.1 Lymph # (Auto) 0.91 [place] # (Auto) 0.7 H Eos # (Auto) 0.1 Baso # (Auto) 0.0 Abs Immat Gran (auto) 0.02 Absolute Neuts (auto) 1.8 Absolute Nucleated RBC 0.000 Nucleated RBC % 0.0 % Immature Plt Fraction 1.4 Sodium 133 L Potassium 3.4 Chloride 104 Carbon Dioxide 23 Anion Gap 6 BUN 15 Creatinine 0.70 Estim Creat Clear Calc 107 Estimated GFR > 60 Glucose 96 Calcium 7.8 L Total Bilirubin 4.6 H AST 55 H ALT 18 Alkaline Phosphatase 108 Total Protein 7.0 Albumin 3.0 L
[2024-02-11 19:55] VITALS: BP 138/75; PULSE 88; RESP 16; TEMP 36.2; O2SAT 94
[2024-02-11 23:35] VITALS: BP 106/63; PULSE 93; RESP 18; TEMP 36.6; O2SAT 97
[2024-02-12 04:00] VITALS: BP 113/60; PULSE 91; RESP 18; TEMP 36.8; O2SAT 98
[2024-02-12 07:41] LABS: Immature Platelet Fraction Pct 1.4 % (0.9-11.2); Mean Corpuscular HGB Conc 30.8 g/dl (32-36); Mean Corpuscular Hemoglobin 30.7 pg (26-34); Mean Corpuscular Volume 99.6 fl (80-100); Mean Platelet Volume 10.1 fl (7.4-10.4); Platelet Count Result 88 k/mm3 (150-375); Red Blood Count 2.61 M/mm3 (4.2-5.4); Red Cell Distribution Width 18.6 % (11.5-14.5); White Blood Count 3.2 K/mm3 (4.5-10.0)
--- NOTE | 2024-02-12 07:45 | PC.NURSE ---
RN did not administer medication to pt because she has a paracenthesis schd at 2:30pm
[2024-02-12 07:47] VITALS: BP 122/64; PULSE 78; RESP 18; TEMP 36.6; O2SAT 95
[2024-02-12 08:00] LABS: Alanine Aminotransferase 18 U/L (6-35); Albumin Level 2.9 g/dL (3.5-5.1); Alkaline Phosphatase 111 U/L (38-126); Anion Gap 6 mmol/L (4-12); Aspartate Amino Transferase 45 U/L (14-36); Bilirubin,Total 4.5 mg/dL (0.2-1.3); Blood Urea Nitrogen 15 mg/dL (7-17); Calcium 8.2 mg/dL (8.4-10.2); Carbon Dioxide 27 mmol/L (22-30); Chloride 102 mmol/L (98-107); Estimated CRCL calculation 107 ml/min; Estimated Glomerular Filt Rate > 60; Glucose 84 mg/dL (65-110); Potassium 3.3 mmol/L (3.4-5.0); Sodium 135 mmol/L (137-145)
[2024-02-12 08:36] LABS: Lymphocytes Absolute Manual 0.51 K/mm3 (1.1-4.5); Lymphocytes Percent Manual 16 % (18-44); Monocytes Absolute Manual 0.22 K/mm3 (0.1-0.90); Monocytes Percent Manual 7 % (3-9); Neutrophils Percent Manual 71 % (46-73); Platelet Estimate Decreased (Adequate); Total Cells Counted 100
[2024-02-12 08:41] LABS: Anisocytosis 1+; Hypochromasia 1+; Ovalocytes 1+; Schistocytes None Seen; Tear Drop Cells 1+
[2024-02-12 08:55] LABS: Basophils Absolute Manual 0.12 K/mm3 (0.0-0.1); Basophils Percent Manual 4 % (0-1); Eosinophils Absolute Manual 0.12 K/mm3 (0.02-0.50); Eosinophils Percent Manual 4 % (0-4)
[2024-02-12 12:00] VITALS: BP 103/60; PULSE 78; RESP 16; TEMP 36.7; O2SAT 94
--- NOTE | 2024-02-12 13:03 | P.PNIM_ITS ---
Progress Note: A&P Assessment and Plan (1) Cirrhosis: Qualifiers: Ascites presence: with ascites Hepatic cirrhosis type: unspecified hepatic cirrhosis Qualified Code(s): K74.60 - Unspecified cirrhosis of liver; R18.8 - Other ascites Code(s): K74.60 - Unspecified cirrhosis of liver Status: Acute Assessment and Plan: * Decompensated cirrhosis requiring frequent paracentesis * Autoimmune cirrhosis was being worked up in the past * She does have history of alcohol abuse in the past, unsure if this is primary cause considering in her history she was noted to have BACON * She needs to go to hepatobiliary doctor for further workup of underlying cause however has not been set up an appointment. * GI following and increased her spironolactone to 150 mg daily * Plan for US guided paracentesis today * Accepted at [facility] by [facility] medicine Dr. Velarde with Dr. Stover Hepatol ogist accepting consult for further workup. Currently waiting on a bed at [facility]. (2) Ascites: Qualifiers: Ascites type: other type Qualified Code(s): R18.8 - Other ascites Code(s): R18.8 - Other ascites Status: Acute Assessment and Plan: Patient has chronic cirrhosis of the liver requiring paracentesis at least once a week according to the patient. Patient has been noncompliant with medications at home and currently does not have a primary care physician and has not followed up with hepatobiliary team in [place] as recommended her last few admissions. Her most recent paracentesis was last week with at least 4-4.5L removed. She was thought to have spontaneous bacterial peritonitis in the past verses autoimmune hepatitis. Presents today with large amount of ascites and anasarca. * Continue diuresis with Lasix 40 mg IV b.i.d. * Continue Spironolactone at 150 mg daily * Continue to watch blood pressure after paracentesis tomorrow due to low blood pressure readings in the past requiring midodrine * GI following * [facility] agreeable to [facility], [facility] placed to [facility] for [facility] services and was accepted by [facility] medicine Dr. Velarde with Dr. Stover String Laster accepting consult for further workup. * CT of abdomen/pelvis showed cirrhosis of the liver with associated splenomegaly and large amount of abdominal pelvic ascites, small to moderate umbilical hernia containing fat and ascites fluid, 9 mm nonobstructing left renal stone * judd catheter in place * Continue fluid restriction * Continue cardiac monitoring * Peritoneal fluid from previous cultures on 12/30/2023 were negative for any bacteria * Paracentesis yesterday with 4500ml fluid removal. * ultrasound-guided paracentesis ordered for today (3) Portal hypertension: Code(s): K76.6 - Portal hypertension Status: Acute Assessment and Plan: * Continue spironolactone 150 mg daily per GI recommendation (4) TAB positive: Code(s): R76.8 - Other specified abnormal immunological findings in serum Status: Acute Assessment and Plan: * TAB screen positive with a TAB titer greater than 1 : 1280A, TAB titer 2 1:160A back in June of this year * ? Autoimmune hepatitis in the past * All other immunology labs were negative (5) Eosinophilia: Code(s): D72.10 - Eosinophilia, unspecified Status: Acute Assessment and Plan: * Eos 7.3>5.7>5.3>5.1 * consider Eosinophilic cirrhosis, however this is less likely as it is rare?? (6) Pancytopenia: Code(s): D61.818 - Other pancytopenia Status: Acute Assessment and Plan: * Likely secondary to decompensated cirrhosis * Continue to trend (7) Hypothyroidism: Code(s): E03.9 - Hypothyroidism, unspecified Status: Acute Assessment and Plan: * Continue Synthroid * TSH 68.600, free T4 1.14, total T3 0.64 * Patient has been noncompliant with her medications at home and we will hold off on increasing her Synthroid at this time Plan Disposition: Accepted at [facility] by hospital medicine Dr. Velarde with Dr. Stover String Laster accepting consult for further workup. Currently waiting on a bed at [facility]. Time Spent With Patient Time with patient: 25 - 35 minutes Subjective Date/time seen: 02/12/24 13:03 Interval history: Patient denies any new complaints today. Awaiting paracentesis today and transfer to [facility] once bed is available. Labs reviewed. Review of Systems Review of Systems: All systems reviewed & are unremarkable except as noted in HPI and below Constitutional: Constitutional: Reports as per HPI, Reports no additional constitutional complaints and Reports fever(s) Eyes: Eyes: Reports as per HPI and Reports no additional eye complaints ENT: Reports system reviewed and no additional complaints, except as documented and Reports as per HPI Cardiovascular: Cardiovascular: Reports as per HPI and Reports no additional cardiovascular complaints Respiratory: Respiratory: Reports as per HPI and Reports no additional respiratory complaints Gastrointestinal: Gastrointestinal: Reports as per HPI and Reports no additional gastrointestinal complaints Genitourinary: Genitourinary: Reports no additional female genitourinary complaints and Reports as per HPI Musculoskeletal: Musculoskeletal: Reports no additional musculoskeletal complaints and Reports as per HPI Integumentary/Breasts: Skin/Breast: Reports system reviewed and no additional complaints, except as docu and Reports as per HPI Neurologic: Reports system reviewed and no additional complaints, except as documented and Reports as per HPI Psychiatric: Psychiatric: Reports no additional psychiatric complaints and Reports as per HPI Exam Narrative: General: In no acute distress, well nourished Eyes:PERRLA, sclera jaundiced, bulged Cardiac: Normal S1 and S2. No murmur, gallops or friction rubs, peripheral pulses intact. Respiratory: diminished in the bases, no adventitious lung sounds,currently on room air Gastrointestinal:Large distended, taunt umbilical hernia the treating, BS positive : Judd catheter in place, dark yellow urine noted Extremities: moves all extremities, anasarca present, BLE pitting edema- unchanged Skin:Jaundiced Neuro: Alert and oriented x4 Objective Data Vital Signs Vital Signs: Vital Signs - 24 hr 02/11/24 19:55 02/11/24 23:35 02/12/24 04:00 Temperature 97.1 F L 97.9 F 98.2 F Pulse Rate 88 93 91 Respiratory Rate 16 18 18 Blood Pressure 138/75 106/63 113/60 Pulse Oximetry 94 97 98 02/12/24 07:47 02/12/24 12:00 Temperature 97.9 F 98.1 F Pulse Rate 78 78 Respiratory Rate 18 16 Blood Pressure 122/64 103/60 Pulse Oximetry 95 94 Intake/Output Intake/Output: Intake & Output 02/09/24 02/10/24 02/11/24 02/12/24 23:59 23:59 23:59 23:59 Intake Total 577 1120 740 520 Output Total [phone] 166 [facility] -[phone] Meds/Results Medications: Active Medications Generic Name Dose Route Start Last Admin Trade Name Freq PRN Reason Stop Dose Admin Al Hydrox/Mg Hydrox/Simethicone 30 ml 02/08/24 01:11 Mag Hydrox/Al Hydrox/Simeth 30 Ml Udc PO Q6H PRN Indigestion Furosemide 40 mg 02/08/24 09:00 02/11/24 18:17 Furosemide Inj 40 Mg/4 Ml Vial IV PUSH 40 mg BID LENNY Administration Levothyroxine Sodium 200 mcg 02/09/24 06:30 02/12/24 05:40 Levothyroxine Sodium 100 Mcg Tablet PO Not Given DAILY@0630 [facility] Morphine Sulfate 4 mg 02/08/24 03:24 02/11/24 09:54 Morphine Sulfate (*Crx) 4 Mg/Ml Inj IV PUSH 4 mg Q6H PRN Administration Pain Rated 7-10 Oxycodone HCl 5 mg 02/11/24 14:49 02/11/24 15:32 Oxycodone Hcl (*Crx) 5 Mg Tab Ir PO 5 mg Q4H PRN Administration Pain Rated 7-10 Pantoprazole Sodium 40 mg 02/09/24 09:00 02/11/24 09:43 Pantoprazole 40 Mg Tablet PO 40 mg QAM LENNY Administration Polyethylene Glycol 17 gm 02/08/24 01:11 Polyethylene Glycol 3350 17 Gm Powd.Pack PO QAM PRN Constipation Spironolactone 150 mg 02/11/24 09:00 02/11/24 09:42 Spironolactone 50 Mg Tablet PO 150 mg QAM LENNY Administration Radiology Results: ITS Impressions Chest X-Ray 02/07/24 20:06 IMPRESSION: Mild interstitial edema. 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 Small to moderate umbilical hernia containing fat and ascitic fluid. 9 mm nonobstructing left renal stone. Paracentesis Ultrasound 02/09/24 11:24 IMPRESSION: 1. Successful ultrasound-guided paracentesis yielding 4500 mL of dark yellow fluid. Labs Labs: Laboratory Results - last 24 hr 02/12/24 07:21 WBC 3.2 L RBC 2.61 L Hgb 8.0 L Hct 26.0 L MCV 99.6 MCH 30.7 MCHC 30.8 L RDW 18.6 H Plt Count 88 L MPV 10.1 Immature Gran % (Auto) Not Reportable Neut % (Auto) Not Reportable Lymph % (Auto) Not Reportable [place] % (Auto) Not Reportable Eos % (Auto) Not Reportable Baso % (Auto) Not Reportable Lymph # (Auto) Not Reportable [place] # (Auto) Not Reportable Eos # (Auto) Not Reportable Baso # (Auto) Not Reportable Abs Immat Gran (auto) Not Reportable Absolute Neuts (auto) Not Reportable Absolute Nucleated RBC Not Reportable Total Counted 100 Neutrophils % (Manual) 71 Lymphocytes % (Manual) 16 L Monocytes % (Manual) 7 Eosinophils % (Manual) 4 Basophils % (Manual) 4 H Nucleated RBC % Not Reportable Abs Lymphs (Manual) 0.51 L Abs Monocytes (Manual) 0.22 Absolute Eos (Manual) 0.12 Abs Basophils (Manual) 0.12 H Platelet Estimate Decreased % Immature Plt Fraction 1.4 Hypochromasia 1+ Anisocytosis 1+ Tear Drop Cells 1+ Ovalocytes 1+ Schistocytes None seen Sodium 135 L Potassium 3.3 L Chloride 102 Carbon Dioxide 27 Anion Gap 6 BUN 15 Creatinine 0.70 Estim Creat Clear Calc 107 Estimated GFR > 60 Glucose 84 Calcium 8.2 L Total Bilirubin 4.5 H AST 45 H ALT 18 Alkaline Phosphatase 111 Total Protein 7.0 Albumin 2.9 L Quality VTE Prophylaxis VTE prophylaxis: mechanical ordered
--- NOTE | 2024-02-12 15:29 | WPDGIPROGNO ---
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8 - Other ascites Status: Acute Assessment and Plan: s/p paracentesis- only removed 5 liters on admission, will get more today (give albumin if remove more) no sbp on lasix and aldactone dose was increased- normal renal function and lytes 2g na diet (3) Macrocytic anemia: Code(s): D53.9 - Nutritional anemia, unspecified Status: Acute (4) Thrombocytopenia: Code(s): D69.6 - Thrombocytopenia, unspecified Status: Acute Subjective Date/time seen: 02/12/24 15:29 Interval history: no major changes, still bloated Review of Systems Review of Systems: All systems reviewed & are unremarkable except as noted in HPI and below Exam Const: General: comfortable and no acute distress Other: chronically ill HENMT: Face/Nose/Sinus: Normal nares present Eyes: General: appearance normal, both eyes and all related structures Sclera: scleral abnormality (icteric) Neck: Neck: supple Resp: Auscultation: clear to auscultation bilaterally Cardio: Rate: regular rate Rhythm: regular rhythm GI: Inspection: non-distended GI Palp: Yes Soft to palpation and No Tenderness to palpation present (GI) Other: + ascites Skin: General skin exam: no rashes or lesions noted Neuro: Speech: normal speech Motor exam (neuro): 5/5 motor strength present throughout Extrem: General: pedal edema Psych: Mental Status: mental status grossly normal Objective Data Vital Signs Vital Signs: Vital Signs - 24 hr 02/11/24 19:55 02/11/24 23:35 02/12/24 04:00 Temperature 97.1 F L 97.9 F 98.2 F Pulse Rate 88 93 91 Respiratory Rate 16 18 18 Blood Pressure 138/75 106/63 113/60 Pulse Oximetry 94 97 98 02/12/24 07:47 02/12/24 12:00 Temperature 97.9 F 98.1 F Pulse Rate 78 78 Respiratory Rate 18 16 Blood Pressure 122/64 103/60 Pulse Oximetry 95 94 Intake/Output Intake/Output: Intake & Output 02/09/24 02/10/24 02/11/24 02/12/24 23:59 23:59 23:59 23:59 Intake Total 577 1120 740 520 Output Total 6800 2150 1375 700 [facility] -[phone] Meds/Results Medications: Active Medications Generic Name Dose Route Start Last Admin Trade Name Freq PRN Reason Stop Dose Admin Al Hydrox/Mg Hydrox/Simethicone 30 ml 02/08/24 01:11 Mag Hydrox/Al Hydrox/Simeth 30 Ml Udc PO Q6H PRN Indigestion Furosemide 40 mg 02/08/24 09:00 02/11/24 18:17 Furosemide Inj 40 Mg/4 Ml Vial IV PUSH 40 mg BID LENNY Administration Levothyroxine Sodium 200 mcg 02/09/24 06:30 02/12/24 05:40 Levothyroxine Sodium 100 Mcg Tablet PO Not Given DAILY@0630 [facility] Morphine Sulfate 4 mg 02/08/24 03:24 02/11/24 09:54 Morphine Sulfate (*Crx) 4 Mg/Ml Inj IV PUSH 4 mg Q6H PRN Administration Pain Rated 7-10 Oxycodone HCl 5 mg 02/11/24 14:49 02/11/24 15:32 Oxycodone Hcl (*Crx) 5 Mg Tab Ir PO 5 mg Q4H PRN Administration Pain Rated 7-10 Pantoprazole Sodium 40 mg 02/09/24 09:00 02/11/24 09:43 Pantoprazole 40 Mg Tablet PO 40 mg QAM LENNY Administration Polyethylene Glycol 17 gm 02/08/24 01:11 Polyethylene Glycol 3350 17 Gm Powd.Pack PO QAM PRN Constipation Spironolactone 150 mg 02/11/24 09:00 02/11/24 09:42 Spironolactone 50 Mg Tablet PO 150 mg QAM LENNY Administration Radiology Results: ITS Impressions Chest X-Ray 02/07/24 20:06 IMPRESSION: Mild interstitial edema. 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 Small to moderate umbilical hernia containing fat and ascitic fluid. 9 mm nonobstructing left renal stone. Labs Labs: Laboratory Results - last 24 hr 02/12/24 07:21 WBC 3.2 L RBC 2.61 L Hgb 8.0 L Hct 26.0 L MCV 99.6 MCH 30.7 MCHC 30.8 L RDW 18.6 H Plt Count 88 L MPV 10.1 Immature Gran % (Auto) Not Reportable Neut % (Auto) Not Reportable Lymph % (Auto) Not Reportable [place] % (Auto) Not Reportable Eos % (Auto) Not Reportable Baso % (Auto) Not Reportable Lymph # (Auto) Not Reportable [place] # (Auto) Not Reportable Eos # (Auto) Not Reportable Baso # (Auto) Not Reportable Abs Immat Gran (auto) Not Reportable Absolute Neuts (auto) Not Reportable Absolute Nucleated RBC Not Reportable Total Counted 100 Neutrophils % (Manual) 71 Lymphocytes % (Manual) 16 L Monocytes % (Manual) 7 Eosinophils % (Manual) 4 Basophils % (Manual) 4 H Nucleated RBC % Not Reportable Abs Lymphs (Manual) 0.51 L Abs Monocytes (Manual) 0.22 Absolute Eos (Manual) 0.12 Abs Basophils (Manual) 0.12 H Platelet Estimate Decreased % Immature Plt Fraction 1.4 Hypochromasia 1+ Anisocytosis 1+ Tear Drop Cells 1+ Ovalocytes 1+ Schistocytes None seen Sodium 135 L Potassium 3.3 L Chloride 102 Carbon Dioxide 27 Anion Gap 6 BUN 15 Creatinine 0.70 Estim Creat Clear Calc 107 Estimated GFR > 60 Glucose 84 Calcium 8.2 L Total Bilirubin 4.5 H AST 45 H ALT 18 Alkaline Phosphatase 111 Total Protein 7.0 Albumin 2.9 L
[2024-02-12 16:00] VITALS: BP 101/54; PULSE 77; RESP 16; TEMP 36.2; O2SAT 95
[2024-02-12] MEDS: FUROSEMIDE INJ 40 MG/4 ML VIAL IV PUSH (17:26)
[2024-02-12 22:37] VITALS: BP 106/55; PULSE 89; RESP 16; TEMP 36.6; O2SAT 93
[2024-02-13 06:03] VITALS: BP 111/50; PULSE 83; RESP 16; TEMP 36.7; O2SAT 95
[2024-02-13] MEDS: LEVOTHYROXINE SODIUM 100 MCG TABLET 200 MCG PO (06:35)
[2024-02-13 06:39] LABS: Basophils Absolute Auto 0.1 K/mm3 (0.0-0.1); Basophils Percent Auto 1.5 % (0.2-1.2); Eosinophils Absolute Auto 0.1 K/mm3 (0-0.3); Eosinophils Percent Auto 3.2 % (0-4.4); Hematocrit 28.2 % (37.0-47.0); Hemoglobin 8.4 g/dL (12.0-15.0); Immature Granulocyte Absolute 0.01 K/mm3 (0.00-0.031); Immature Granulocyte Percent A 0.2 % (0-0.5); Immature Platelet Fraction Pct 1.9 % (0.9-11.2); Lymphocytes Absolute Auto 0.82 K/mm3 (0.9-3.2); Mean Corpuscular HGB Conc 29.8 g/dl (32-36); Mean Corpuscular Hemoglobin 29.7 pg (26-34); Mean Corpuscular Volume 99.6 fl (80-100); Mean Platelet Volume 9.7 fl (7.4-10.4); Monocytes Absolute Auto 0.6 K/mm3 (0.1-0.6); Monocytes Percent Auto 14.4 % (2.6-8.5); Neutrophils Absolute Auto 2.5 K/mm3 (1.3-6.7); Neutrophils Percent Auto 60.7 % (45.5-73.1); Platelet Count Result 92 k/mm3 (150-375); Red Blood Count 2.83 M/mm3 (4.2-5.4); Red Cell Distribution Width 18.5 % (11.5-14.5); White Blood Count 4.1 K/mm3 (4.5-10.0)
[2024-02-13 06:48] LABS: Alanine Aminotransferase 16 U/L (6-35); Albumin Level 2.6 g/dL (3.5-5.1); Alkaline Phosphatase 79 U/L (38-126); Anion Gap 5 mmol/L (4-12); Aspartate Amino Transferase 41 U/L (14-36); Blood Urea Nitrogen 17 mg/dL (7-17); Calcium 8.1 mg/dL (8.4-10.2); Carbon Dioxide 27 mmol/L (22-30); Chloride 104 mmol/L (98-107); Estimated CRCL calculation 107 ml/min; Estimated Glomerular Filt Rate > 60; Glucose 113 mg/dL (65-110); Potassium 3.4 mmol/L (3.4-5.0); Sodium 136 mmol/L (137-145)
[2024-02-13 07:22] LABS: Platelet Estimate Decreased (Adequate)
[2024-02-13 07:23] LABS: Anisocytosis 1+; Hypochromasia 1+; Schistocytes None Seen
[2024-02-13 07:56] VITALS: BP 104/60; PULSE 80; RESP 14; TEMP 36.8; O2SAT 95
[2024-02-13 09:16] VITALS: BP 101/49
[2024-02-13] MEDS: PANTOPRAZOLE 40 MG TABLET PO (09:24)
--- NOTE | 2024-02-13 10:30 | P.PNIM_ITS ---
Progress Note: A&P Assessment and Plan (1) Cirrhosis: Qualifiers: Ascites presence: with ascites Hepatic cirrhosis type: unspecified hepatic cirrhosis Qualified Code(s): K74.60 - Unspecified cirrhosis of liver; R18.8 - Other ascites Code(s): K74.60 - Unspecified cirrhosis of liver Status: Acute Assessment and Plan: * Decompensated cirrhosis requiring frequent paracentesis * Autoimmune cirrhosis was being worked up in the past * She does have history of alcohol abuse in the past, unsure if this is primary cause considering in her history she was noted to have BACON * She needs to go to hepatobiliary doctor for further workup of underlying cause however has not been set up an appointment. * GI following and increased her spironolactone to 150 mg daily * Paracentesis yesterday yielded 3.8L fluid removal * Accepted at [facility] by [facility] medicine Dr. Velarde with Dr. Stover Bird Raiser accepting consult for further workup. Currently waiting on a bed at [facility]. (2) Ascites: Qualifiers: Ascites type: other type Qualified Code(s): R18.8 - Other ascites Code(s): R18.8 - Other ascites Status: Acute Assessment and Plan: Patient has chronic cirrhosis of the liver requiring paracentesis at least once a week according to the patient. Patient has been noncompliant with medications at home and currently does not have a primary care physician and has not followed up with hepatobiliary team in [place] as recommended her last few admissions. Her most recent paracentesis was last week with at least 4-4.5L removed. She was thought to have spontaneous bacterial peritonitis in the past verses autoimmune hepatitis. Presents today with large amount of ascites and anasarca. * Continue diuresis with Lasix 40 mg IV b.i.d. * Continue Spironolactone at 150 mg daily * Continue to watch blood pressure after paracentesis tomorrow due to low blood pressure readings in the past requiring midodrine * GI following * Patient agreeable to transfer to [facility], Call placed to [facility] for Hepatobiliary services and was accepted by [facility] medicine Dr. Velarde with Dr. Stover Bird Raiser accepting consult for further workup. * CT of abdomen/pelvis showed cirrhosis of the liver with associated splenomegaly and large amount of abdominal pelvic ascites, small to moderate umbilical hernia containing fat and ascites fluid, 9 mm nonobstructing left renal stone * judd catheter in place * Continue fluid restriction * Continue cardiac monitoring * Peritoneal fluid from previous cultures on 12/30/2023 were negative for any bacteria * Paracentesis yesterday with 3.8L ml fluid removal. (3) Portal hypertension: Code(s): K76.6 - Portal hypertension Status: Acute Assessment and Plan: * Continue spironolactone 150 mg daily per GI recommendation (4) TAB positive: Code(s): R76.8 - Other specified abnormal immunological findings in serum Status: Acute Assessment and Plan: * TAB screen positive with a TAB titer greater than 1 : 1280A, TAB titer 2 1:160A back in June of this year * ? Autoimmune hepatitis in the past * All other immunology labs were negative (5) Eosinophilia: Code(s): D72.10 - Eosinophilia, unspecified Status: Acute Assessment and Plan: * Eos 7.3>5.7>5.3>5.1 * consider Eosinophilic cirrhosis, however this is less likely as it is rare?? (6) Pancytopenia: Code(s): D61.818 - Other pancytopenia Status: Acute Assessment and Plan: * Likely secondary to decompensated cirrhosis * Continue to trend (7) Hypothyroidism: Code(s): E03.9 - Hypothyroidism, unspecified Status: Acute Assessment and Plan: * Continue Synthroid * TSH 68.600, free T4 1.14, total T3 0.64 * Patient has been noncompliant with her medications at home and we will hold off on increasing her Synthroid at this time Plan Disposition: Accepted at [facility] by hospital medicine Dr. Velarde with Dr. Stover Bird Raiser accepting consult for further workup. Currently waiting on a bed at [facility]. Subjective Date/time seen: 02/13/24 10:30 Interval history: Patient denies any new complaints today. She had paracentesis yesterday with 3.8L fluid removal which helped her pain under her rib cage improve. Call placed to [facility] They are currently at capacity and on discharges. They estimate wait time 5-7 days. Review of Systems Review of Systems: Abdominal distension, worsening bilateral lower extremity edema All systems reviewed & are unremarkable except as noted in HPI and below Constitutional: Constitutional: Reports as per HPI, Reports no additional constitutional complaints and Reports fever(s) Eyes: Eyes: Reports as per HPI and Reports no additional eye complaints ENT: Reports system reviewed and no additional complaints, except as documented and Reports as per HPI Cardiovascular: Cardiovascular: Reports as per HPI and Reports no additional cardiovascular complaints Respiratory: Respiratory: Reports as per HPI and Reports no additional respiratory complaints Gastrointestinal: Gastrointestinal: Reports as per HPI and Reports no additional gastrointestinal complaints Genitourinary: Genitourinary: Reports no additional female genitourinary complaints and Reports as per HPI Musculoskeletal: Musculoskeletal: Reports no additional musculoskeletal complaints and Reports as per HPI Integumentary/Breasts: Skin/Breast: Reports system reviewed and no additional complaints, except as docu and Reports as per HPI Neurologic: Reports system reviewed and no additional complaints, except as documented and Reports as per HPI Psychiatric: Psychiatric: Reports no additional psychiatric complaints and Reports as per HPI Exam Narrative: General: In no acute distress, well nourished Eyes:PERRLA, sclera jaundiced, bulged Cardiac: Normal S1 and S2. No murmur, gallops or friction rubs, peripheral pulses intact. Respiratory: diminished in the bases, no adventitious lung sounds,currently on room air Gastrointestinal:Large distended, taunt umbilical hernia the treating, BS positive : Judd catheter in place, dark yellow urine noted Extremities: moves all extremities, anasarca present, BLE pitting edema- unchanged Skin:Jaundiced Neuro: Alert and oriented x4 Objective Data Vital Signs Vital Signs: Vital Signs - 24 hr 02/12/24 12:00 02/12/24 16:00 02/12/24 22:37 Temperature 98.1 F 97.2 F L 97.9 F Pulse Rate 78 77 89 Respiratory Rate 16 16 16 Blood Pressure 103/60 101/54 L 106/55 L Pulse Oximetry 94 95 93 02/13/24 07:56 02/13/24 06:03 02/13/24 09:16 Temperature 98.2 F 98.1 F Pulse Rate 80 83 Respiratory Rate 14 16 Blood Pressure 104/60 111/50 L 101/49 L Pulse Oximetry 95 95 Intake/Output Intake/Output: Intake & Output 02/10/24 02/11/24 02/12/24 02/13/24 23:59 23:59 23:59 23:59 Intake Total 1120 740 970 750 Output Total 2150 1375 4850 600 Balance -1030 -635 -3880 150 Meds/Results Medications: Active Medications Generic Name Dose Route Start Last Admin Trade Name Freq PRN Reason Stop Dose Admin Al Hydrox/Mg Hydrox/Simethicone 30 ml 02/08/24 01:11 Mag Hydrox/Al Hydrox/Simeth 30 Ml Udc PO Q6H PRN Indigestion Furosemide 40 mg 02/08/24 09:00 02/13/24 09:17 Furosemide Inj 40 Mg/4 Ml Vial IV PUSH Not Given BID LENNY Levothyroxine Sodium 200 mcg 02/09/24 06:30 02/13/24 06:35 Levothyroxine Sodium 100 Mcg Tablet PO 200 mcg DAILY@0630 LENNY Administration Morphine Sulfate 4 mg 02/08/24 03:24 02/11/24 09:54 Morphine Sulfate (*Crx) 4 Mg/Ml Inj IV PUSH 4 mg Q6H PRN Administration Pain Rated 7-10 Oxycodone HCl 5 mg 02/11/24 14:49 02/11/24 15:32 Oxycodone Hcl (*Crx) 5 Mg Tab Ir PO 5 mg Q4H PRN Administration Pain Rated 7-10 Pantoprazole Sodium 40 mg 02/09/24 09:00 02/13/24 09:24 Pantoprazole 40 Mg Tablet PO 40 mg QAM LENNY Administration Polyethylene Glycol 17 gm 02/08/24 01:11 Polyethylene Glycol 3350 17 Gm Powd.Pack PO QAM PRN Constipation Spironolactone 150 mg 02/11/24 09:00 02/13/24 09:17 Spironolactone 50 Mg Tablet PO Not Given QAM [facility] Radiology Results: ITS Impressions Chest X-Ray 02/07/24 20:06 IMPRESSION: Mild interstitial edema. 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 Small to moderate umbilical hernia containing fat and ascitic fluid. 9 mm nonobstructing left renal stone. Paracentesis Ultrasound 02/12/24 15:38 IMPRESSION: 1. Successful ultrasound-guided paracentesis yielding 3800 mL of yellow fluid. Labs Labs: Laboratory Results - last 24 hr 02/13/24 06:06 WBC 4.1 L RBC 2.83 L Hgb 8.4 L Hct 28.2 L MCV 99.6 MCH 29.7 MCHC 29.8 L RDW 18.5 H Plt Count 92 L MPV 9.7 Immature Gran % (Auto) 0.2 Neut % (Auto) 60.7 Lymph % (Auto) 20.0 Page % (Auto) 14.4 H Eos % (Auto) 3.2 Baso % (Auto) 1.5 H Lymph # (Auto) 0.82 L Page # (Auto) 0.6 Eos # (Auto) 0.1 Baso # (Auto) 0.1 Abs Immat Gran (auto) 0.01 Absolute Neuts (auto) 2.5 Absolute Nucleated RBC 0.000 Nucleated RBC % 0.0 Platelet Estimate Decreased % Immature Plt Fraction 1.9 Hypochromasia 1+ Anisocytosis 1+ Schistocytes None seen Sodium 136 L Potassium 3.4 Chloride 104 Carbon Dioxide 27 Anion Gap 5 BUN 17 Creatinine 0.70 Estim Creat Clear Calc 107 Estimated GFR > 60 Glucose 113 H Calcium 8.1 L Total Bilirubin 4.0 H AST 41 H ALT 16 Alkaline Phosphatase 79 Total Protein 6.0 L Albumin 2.6 L Quality VTE Prophylaxis VTE prophylaxis: mechanical ordered
[2024-02-13 12:00] VITALS: BP 109/60; PULSE 88; RESP 14; TEMP 36.6; O2SAT 93
--- NOTE | 2024-02-13 13:52 | PC.NURSE ---
RN gave update to [facility] transfer center on patient. No avaliable beds at this time.
--- NOTE | 2024-02-13 15:22 | WPDGIPROGNO ---
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 (2) Ascites: Qualifiers: Ascites type: other type Qualified Code(s): R18.8 - Other ascites Code(s): R18.8 - Other ascites Status: Acute Assessment and Plan: s/p paracentesis- 5 liters first time then 3.8 L (received albumin, no SBP) continue with lasix and aldactone 2g na diet (3) Macrocytic anemia: Code(s): D53.9 - Nutritional anemia, unspecified Status: Acute (4) Thrombocytopenia: Code(s): D69.6 - Thrombocytopenia, unspecified Status: Acute Subjective Date/time seen: 02/13/24 15:22 Interval history: had another paracentesis yesterday 3.8 L removed no new changes Review of Systems Review of Systems: All systems reviewed & are unremarkable except as noted in HPI and below Exam Const: General: comfortable and no acute distress Other: chronically ill HENMT: Face/Nose/Sinus: Normal nares present Eyes: General: appearance normal, both eyes and all related structures Sclera: scleral abnormality (icteric) Neck: Neck: supple Resp: Auscultation: clear to auscultation bilaterally Cardio: Rate: regular rate Rhythm: regular rhythm GI: Inspection: non-distended GI Palp: Yes Soft to palpation, No Tenderness to palpation present (GI), No Guarding due to palpation present (GI) and Yes Hernia present umbilical Other: + ascites Skin: General skin exam: no rashes or lesions noted Neuro: Speech: normal speech Motor exam (neuro): 5/5 motor strength present throughout Extrem: General: pedal edema Psych: Mental Status: mental status grossly normal Objective Data Vital Signs Vital Signs: Vital Signs - 24 hr 02/12/24 16:00 02/12/24 22:37 02/13/24 07:56 Temperature 97.2 F L 97.9 F 98.2 F Pulse Rate 77 89 80 Respiratory Rate 16 16 14 Blood Pressure 101/54 L 106/55 L 104/60 Pulse Oximetry 95 93 95 Oxygen Delivery 02/13/24 06:03 02/13/24 09:16 02/13/24 09:24 Temperature 98.1 F Pulse Rate 83 Respiratory Rate 16 Blood Pressure 111/50 L 101/49 L Pulse Oximetry 95 Oxygen Delivery Room Air 02/13/24 12:00 Temperature 97.9 F Pulse Rate 88 Respiratory Rate 14 Blood Pressure 109/60 Pulse Oximetry 93 Oxygen Delivery Intake/Output Intake/Output: Intake & Output 02/10/24 02/11/24 02/12/24 02/13/24 23:59 23:59 23:59 23:59 Intake Total 1120 633 099 5707 Output Total 2150 1375 4850 600 Balance -1030 -635 -3880 400 Meds/Results Medications: Active Medications Generic Name Dose Route Start Last Admin Trade Name Freq PRN Reason Stop Dose Admin Al Hydrox/Mg Hydrox/Simethicone 30 ml 02/08/24 01:11 Mag Hydrox/Al Hydrox/Simeth 30 Ml Udc PO Q6H PRN Indigestion Furosemide 60 mg 02/14/24 09:00 Furosemide 20 Mg Tablet PO DAILY LENNY Levothyroxine Sodium 200 mcg 02/09/24 06:30 02/13/24 06:35 Levothyroxine Sodium 100 Mcg Tablet PO 200 mcg DAILY@0630 LENNY Administration Morphine Sulfate 4 mg 02/08/24 03:24 02/11/24 09:54 Morphine Sulfate (*Crx) 4 Mg/Ml Inj IV PUSH 4 mg Q6H PRN Administration Pain Rated 7-10 Oxycodone HCl 5 mg 02/11/24 14:49 02/11/24 15:32 Oxycodone Hcl (*Crx) 5 Mg Tab Ir PO 5 mg Q4H PRN Administration Pain Rated 7-10 Pantoprazole Sodium 40 mg 02/09/24 09:00 02/13/24 09:24 Pantoprazole 40 Mg Tablet PO 40 mg QAM LENNY Administration Polyethylene Glycol 17 gm 02/08/24 01:11 Polyethylene Glycol 3350 17 Gm Powd.Pack PO QAM PRN Constipation Spironolactone 150 mg 02/11/24 09:00 02/13/24 09:17 Spironolactone 50 Mg Tablet PO Not Given QAM [facility] Radiology Results: ITS Impressions Chest X-Ray 02/07/24 20:06 IMPRESSION: Mild interstitial edema. 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 Small to moderate umbilical hernia containing fat and ascitic fluid. 9 mm nonobstructing left renal stone. Paracentesis Ultrasound 02/12/24 15:38 IMPRESSION: 1. Successful ultrasound-guided paracentesis yielding 3800 mL of yellow fluid. Labs Labs: Laboratory Results - last 24 hr 02/13/24 06:06 WBC 4.1 L RBC 2.83 L Hgb 8.4 L Hct 28.2 L MCV 99.6 MCH 29.7 MCHC 29.8 L RDW 18.5 H Plt Count 92 L MPV 9.7 Immature Gran % (Auto) 0.2 Neut % (Auto) 60.7 Lymph % (Auto) 20.0 Bland % (Auto) 14.4 H Eos % (Auto) 3.2 Baso % (Auto) 1.5 H Lymph # (Auto) 0.82 L Bland # (Auto) 0.6 Eos # (Auto) 0.1 Baso # (Auto) 0.1 Abs Immat Gran (auto) 0.01 Absolute Neuts (auto) 2.5 Absolute Nucleated RBC 0.000 Nucleated RBC % 0.0 Platelet Estimate Decreased % Immature Plt Fraction 1.9 Hypochromasia 1+ Anisocytosis 1+ Schistocytes None seen Sodium 136 L Potassium 3.4 Chloride 104 Carbon Dioxide 27 Anion Gap 5 BUN 17 Creatinine 0.70 Estim Creat Clear Calc 107 Estimated GFR > 60 Glucose 113 H Calcium 8.1 L Total Bilirubin 4.0 H AST 41 H ALT 16 Alkaline Phosphatase 79 Total Protein 6.0 L Albumin 2.6 L
[2024-02-13 16:00] VITALS: BP 116/61; PULSE 88; RESP 16; TEMP 36.6; O2SAT 94
[2024-02-13 19:54] VITALS: BP 114/65; PULSE 85; RESP 16; TEMP 36.8; O2SAT 93
[2024-02-13] MEDS: oxyCODONE HCL (*CRX) 5 MG TAB IR PO (23:54)
[2024-02-14 05:42] VITALS: BP 110/61; PULSE 86; RESP 14; TEMP 36.7; O2SAT 95
[2024-02-14 06:16] LABS: Eosinophils Absolute Auto 0.2 K/mm3 (0-0.3); Eosinophils Percent Auto 3.8 % (0-4.4); Hematocrit 28.2 % (37.0-47.0); Hemoglobin 8.5 g/dL (12.0-15.0); Immature Granulocyte Absolute 0.01 K/mm3 (0.00-0.031); Immature Granulocyte Percent A 0.3 % (0-0.5); Immature Platelet Fraction Pct 1.3 % (0.9-11.2); Lymphocytes Absolute Auto 0.97 K/mm3 (0.9-3.2); Lymphocytes Percent Auto 24.5 % (18.3-44.2); Mean Corpuscular HGB Conc 30.1 g/dl (32-36); Mean Corpuscular Volume 99.6 fl (80-100); Mean Platelet Volume 9.4 fl (7.4-10.4); Monocytes Absolute Auto 0.7 K/mm3 (0.1-0.6); Monocytes Percent Auto 17.9 % (2.6-8.5); Neutrophils Absolute Auto 2.1 K/mm3 (1.3-6.7); Neutrophils Percent Auto 52.5 % (45.5-73.1); Platelet Count Result 89 k/mm3 (150-375); Red Blood Count 2.83 M/mm3 (4.2-5.4); Red Cell Distribution Width 18.6 % (11.5-14.5)
[2024-02-14] MEDS: LEVOTHYROXINE SODIUM 100 MCG TABLET 200 MCG PO (06:19)
[2024-02-14 06:31] LABS: Alanine Aminotransferase 16 U/L (6-35); Albumin Level 2.7 g/dL (3.5-5.1); Alkaline Phosphatase 99 U/L (38-126); Anion Gap 6 mmol/L (4-12); Aspartate Amino Transferase 42 U/L (14-36); Bilirubin,Total 3.9 mg/dL (0.2-1.3); Blood Urea Nitrogen 16 mg/dL (7-17); Calcium 8.2 mg/dL (8.4-10.2); Carbon Dioxide 26 mmol/L (22-30); Chloride 105 mmol/L (98-107); Estimated CRCL calculation 107 ml/min; Estimated Glomerular Filt Rate > 60; Glucose 116 mg/dL (65-110); Potassium 3.3 mmol/L (3.4-5.0); Sodium 137 mmol/L (137-145)
[2024-02-14 07:46] LABS: Anisocytosis 1+; Hypochromasia 1+; Platelet Estimate Decreased (Adequate); Schistocytes None Seen
[2024-02-14] MEDS: POTASSIUM CHLORIDE 20 MEQ ER TABLET 40 MEQ PO (08:38)
[2024-02-14] MEDS: PANTOPRAZOLE 40 MG TABLET PO (08:38)
[2024-02-14] MEDS: POTASSIUM CHLORIDE 20 MEQ ER TABLET PO (08:38)
[2024-02-14] MEDS: SPIRONOLACTONE 50 MG TABLET 150 MG PO (08:38)
[2024-02-14] MEDS: FUROSEMIDE 20 MG TABLET 60 MG PO (08:38)
--- NOTE | 2024-02-14 12:34 | P.CONGI_ITS ---
Assessment and Plan Assessment and plan (1) Ascites: Qualifiers: Ascites type: other type Qualified Code(s): R18.8 - Other ascites Code(s): R18.8 - Other ascites Status: Acute Assessment and Plan: Patient with advanced cirrhosis, having ascites as her main problem. With the recent increase of diuretic dose, will keep watching kidney function and electrolytes as well as fluid balance. We will try to contact [facility] hepatology Department on Friday for possible transfer and pre transplant evaluation. (2) Cirrhosis: Qualifiers: Ascites presence: with ascites Hepatic cirrhosis type: unspecified hepatic cirrhosis Qualified Code(s): K74.60 - Unspecified cirrhosis of liver; R18.8 - Other ascites Code(s): K74.60 - Unspecified cirrhosis of liver Status: Acute GI Consult Note Consult date/time: 02/14/24 12:34 HPI: Nasreen Orozco is a 53 year old female who was been admitted to the hospital for the 3rd time recently. She has advanced cirrhosis, and is currenly admitted for difficult to control ascites. She has had several paracentesis and her diuretic dose has recently been increased to Aldactone 150 mg q.d. plus Lasix 60 mg q.d. , her kidney function has remained stable.. She is on a low-sodium diet. 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 She was started on prednisone 6 months ago but did not continue. The rest of the workup, including alpha-1 antitrypsin level, ceruloplasmin and viral hepatitis-B and C were negative. The patient does not have a history of alcohol abuse. She states her brother 10 years ago from cirrhosis of unknown cause. 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 She has 1 child at the daughter and she states that the daughter had recently moved. She also states she did have her primary however primary recently left. She does wish to be a full code. All code status is were reviewed with the patient including DNR, DNI current pressors, BiPAP and CPAP. Patient wishes to be a full code at that time. She also likes her friend Franko to be her surrogate. Smoking packs per day: 0.25 Smoking cigarettes per day: 5.0 Years smoked: 15 Smoking pack-years: 3.75 Smoking status: Former smoker Tobacco type: cigarettes Smoking end date: 11/26/23 Alcohol intake: former Drinks per week: 4 Substance use: never Substance use type: does not use Do You Feel Safe in your Home?: Yes Lack of Transportation: No Lack of Food: Never True Current Housing: I Have Housing Concerned About Future Housing: No Difficulty Paying Gas/Electric Bills: No Difficulty Paying for Meds: No Currently Unemployed: No Education: Associate Degree Difficulty w/ Childcare or Family Care: No Living arrangements: with family Occupation/Education: other Additional occupation/education comments: disability Gender identity (if verbalized by the patient): Female Sexual Orientation (if Verbalized by the Patient): Straight or Heterosexual Spiritual care concerns: No Agree to blood products: Yes Meds Home Medications and Allergies Home Medications Medication Instructions Recorded Confirmed Type levothyroxine 200 mcg tablet 200 mcg PO DAILY 06/27/23 02/08/24 History calcium 600 mg (as carbonate)-vit 1 tablet PO DAILY 02/08/24 02/08/24 History D3 10 mcg (400 unit)-minerals tablet mecobalamin (vitamin B12) 1,000 1,000 mcg PO DAILY 02/08/24 02/08/24 History mcg chewable tablet (B12 Active) Allergies Allergy/AdvReac Type Severity Reaction Status Date / Time amoxicillin Allergy Hives Verified 02/08/24 01:28 latex Allergy Rash Verified 02/08/24 01:28 Penicillins Allergy Hives Verified 02/08/24 01:28 hydromorphone [From Dilaudid] AdvReac Itching Verified 02/08/24 03:42 Vital Signs Vital Signs - 24 hr 02/13/24 16:00 02/13/24 19:54 02/13/24 20:00 Temperature 97.9 F 98.2 F Pulse Rate 88 85 Respiratory Rate 16 16 Blood Pressure 116/61 114/65 Pulse Oximetry 94 93 Oxygen Delivery Room Air 02/14/24 05:42 02/14/24 08:40 Temperature 98.0 F Pulse Rate 86 Respiratory Rate 14 Blood Pressure 110/61 Pulse Oximetry 95 Oxygen Delivery Room Air Results Labs 02/14/24 05:57 02/14/24 05:57 Labs: Short CBC 02/14/24 Range/Units 05:57 WBC 4.0 L (4.5-10.0) K/mm3 Hgb 8.5 L (12.0-15.0) g/dL Hct 28.2 L (37.0-47.0) % Plt Count 89 L (150-375) k/mm3 BMP 02/14/24 05:57 Sodium 137 Potassium 3.3 L Chloride 105 Carbon Dioxide 26 BUN 16 Creatinine 0.70 Glucose 116 H Calcium 8.2 L Liver Function 02/14/24 Range/Units 05:57 Total Bilirubin 3.9 H (0.2-1.3) mg/dL AST 42 H (14-36) U/L ALT 16 (6-35) U/L Alkaline Phosphatase 99 (38-126) U/L Albumin 2.7 L (3.5-5.1) g/dL
--- NOTE | 2024-02-14 13:07 | P.PNIM_ITS ---
Progress Note: A&P Assessment and Plan (1) Cirrhosis: Qualifiers: Ascites presence: with ascites Hepatic cirrhosis type: unspecified hepatic cirrhosis Qualified Code(s): K74.60 - Unspecified cirrhosis of liver; R18.8 - Other ascites Code(s): K74.60 - Unspecified cirrhosis of liver Status: Acute Assessment and Plan: * Decompensated cirrhosis requiring frequent paracentesis * Autoimmune cirrhosis was being worked up in the past * She does have history of alcohol abuse in the past, unsure if this is primary cause considering in her history she was noted to have BACON * She needs to go to hepatobiliary doctor for further workup of underlying cause however has not been set up an appointment. * GI following and increased her spironolactone to 150 mg daily * Paracentesis yesterday yielded 3.8L fluid removal * Accepted at [facility] by [facility] medicine Dr. Velarde with Dr. Stover Poultry Feed Supervisor accepting consult for further workup. Currently waiting on a bed at [facility]. (2) Ascites: Qualifiers: Ascites type: other type Qualified Code(s): R18.8 - Other ascites Code(s): R18.8 - Other ascites Status: Acute Assessment and Plan: Patient has chronic cirrhosis of the liver requiring paracentesis at least once a week according to the patient. Patient has been noncompliant with medications at home and currently does not have a primary care physician and has not followed up with hepatobiliary team in [place] as recommended her last few admissions. Her most recent paracentesis was last week with at least 4-4.5L removed. She was thought to have spontaneous bacterial peritonitis in the past verses autoimmune hepatitis. Presents today with large amount of ascites and anasarca. * Continue diuresis with Lasix 40 mg IV b.i.d. * Continue Spironolactone at 150 mg daily * Continue to watch blood pressure after paracentesis tomorrow due to low blood pressure readings in the past requiring midodrine * GI following * Patient agreeable to transfer to [facility], Call placed to [facility] for Hepatobiliary services and was accepted by [facility] medicine Dr. Velarde with Dr. Stover Poultry Feed Supervisor accepting consult for further workup. * CT of abdomen/pelvis showed cirrhosis of the liver with associated splenomegaly and large amount of abdominal pelvic ascites, small to moderate umbilical hernia containing fat and ascites fluid, 9 mm nonobstructing left renal stone * judd catheter in place * Continue fluid restriction * Continue cardiac monitoring * Peritoneal fluid from previous cultures on 12/30/2023 were negative for any bacteria * Paracentesis yesterday with 3.8L ml fluid removal. (3) Portal hypertension: Code(s): K76.6 - Portal hypertension Status: Acute Assessment and Plan: * Continue spironolactone 150 mg daily per GI recommendation (4) TAB positive: Code(s): R76.8 - Other specified abnormal immunological findings in serum Status: Acute Assessment and Plan: * TAB screen positive with a TAB titer greater than 1 : 1280A, TAB titer 2 1:160A back in June of this year * ? Autoimmune hepatitis in the past * All other immunology labs were negative (5) Eosinophilia: Code(s): D72.10 - Eosinophilia, unspecified Status: Acute Assessment and Plan: * Eos 7.3>5.7>5.3>5.1 * consider Eosinophilic cirrhosis, however this is less likely as it is rare?? (6) Pancytopenia: Code(s): D61.818 - Other pancytopenia Status: Acute Assessment and Plan: * Likely secondary to decompensated cirrhosis * Continue to trend (7) Hypothyroidism: Code(s): E03.9 - Hypothyroidism, unspecified Status: Acute Assessment and Plan: * Continue Synthroid * TSH 68.600, free T4 1.14, total T3 0.64 * Patient has been noncompliant with her medications at home and we will hold off on increasing her Synthroid at this time Plan Disposition: Accepted at [facility] by hospital medicine Dr. Velarde with Dr. Stover Poultry Feed Supervisor accepting consult for further workup. Currently waiting on a bed at [facility]. Time Spent With Patient Time with patient: 15 - 25 minutes Subjective Date/time seen: 02/14/24 13:07 Interval history: Patient denies any new complaints today. Still awaiting bed at [facility]. Review of Systems Review of Systems: All systems reviewed & are unremarkable except as noted in HPI and below Constitutional: Constitutional: Reports as per HPI, Reports no additional constitutional complaints and Reports fever(s) Eyes: Eyes: Reports as per HPI and Reports no additional eye complaints ENT: Reports system reviewed and no additional complaints, except as documented and Reports as per HPI Cardiovascular: Cardiovascular: Reports as per HPI and Reports no additional cardiovascular complaints Respiratory: Respiratory: Reports as per HPI and Reports no additional respiratory complaints Gastrointestinal: Gastrointestinal: Reports as per HPI and Reports no additional gastrointestinal complaints Genitourinary: Genitourinary: Reports no additional female genitourinary complaints and Reports as per HPI Musculoskeletal: Musculoskeletal: Reports no additional musculoskeletal complaints and Reports as per HPI Integumentary/Breasts: Skin/Breast: Reports system reviewed and no additional complaints, except as docu and Reports as per HPI Neurologic: Reports system reviewed and no additional complaints, except as documented and Reports as per HPI Psychiatric: Psychiatric: Reports no additional psychiatric complaints and Reports as per HPI Exam Narrative: General: In no acute distress, well nourished Eyes:PERRLA, sclera jaundiced, bulged Cardiac: Normal S1 and S2. No murmur, gallops or friction rubs, peripheral pulses intact. Respiratory: diminished in the bases, no adventitious lung sounds,currently on room air Gastrointestinal:Large distended, taunt umbilical hernia the treating, BS positive : Judd catheter in place, dark yellow urine noted Extremities: moves all extremities, anasarca present, BLE pitting edema- unchanged Skin:Jaundiced Neuro: Alert and oriented x4 Objective Data Vital Signs Vital Signs: Vital Signs - 24 hr 02/13/24 16:00 02/13/24 19:54 02/13/24 20:00 Temperature 97.9 F 98.2 F Pulse Rate 88 85 Respiratory Rate 16 16 Blood Pressure 116/61 114/65 Pulse Oximetry 94 93 Oxygen Delivery Room Air 02/14/24 05:42 02/14/24 08:40 Temperature 98.0 F Pulse Rate 86 Respiratory Rate 14 Blood Pressure 110/61 Pulse Oximetry 95 Oxygen Delivery Room Air Intake/Output Intake/Output: Intake & Output 02/11/24 02/12/24 02/13/24 02/14/24 23:59 23:59 23:59 23:59 Intake Total 594 089 9565 610 Output Total 4085 9280 950 225 Balance -645 -7839 300 385 Meds/Results Medications: Active Medications Generic Name Dose Route Start Last Admin Trade Name Freq PRN Reason Stop Dose Admin Al Hydrox/Mg Hydrox/Simethicone 30 ml 02/08/24 01:11 Mag Hydrox/Al Hydrox/Simeth 30 Ml Udc PO Q6H PRN Indigestion Furosemide 60 mg 02/14/24 09:00 02/14/24 08:38 Furosemide 20 Mg Tablet PO 60 mg DAILY LENNY Administration Levothyroxine Sodium 200 mcg 02/09/24 06:30 02/14/24 06:19 Levothyroxine Sodium 100 Mcg Tablet PO 200 mcg DAILY@0630 LENNY Administration Morphine Sulfate 4 mg 02/08/24 03:24 02/11/24 09:54 Morphine Sulfate (*Crx) 4 Mg/Ml Inj IV PUSH 4 mg Q6H PRN Administration Pain Rated 7-10 Oxycodone HCl 5 mg 02/11/24 14:49 02/13/24 23:54 Oxycodone Hcl (*Crx) 5 Mg Tab Ir PO 5 mg Q4H PRN Administration Pain Rated 7-10 Pantoprazole Sodium 40 mg 02/09/24 09:00 02/14/24 08:38 Pantoprazole 40 Mg Tablet PO 40 mg QAM LENNY Administration Polyethylene Glycol 17 gm 02/08/24 01:11 Polyethylene Glycol 3350 17 Gm Powd.Pack PO QAM PRN Constipation Potassium Chloride 20 meq 02/14/24 09:00 02/14/24 08:38 Potassium Chloride 20 Meq Er Tablet PO 20 meq DAILY LENNY Administration Spironolactone 150 mg 02/11/24 09:00 02/14/24 08:38 Spironolactone 50 Mg Tablet PO 150 mg QAM LENNY Administration Radiology Results: ITS Impressions Chest X-Ray 02/07/24 20:06 IMPRESSION: Mild interstitial edema. 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 Small to moderate umbilical hernia containing fat and ascitic fluid. 9 mm nonobstructing left renal stone. Paracentesis Ultrasound 02/12/24 15:38 IMPRESSION: 1. Successful ultrasound-guided paracentesis yielding 3800 mL of yellow fluid. Labs Labs: Laboratory Results - last 24 hr 02/14/24 05:57 WBC 4.0 L RBC 2.83 L Hgb 8.5 L Hct 28.2 L MCV 99.6 MCH 30.0 MCHC 30.1 L RDW 18.6 H Plt Count 89 L MPV 9.4 Immature Gran % (Auto) 0.3 Neut % (Auto) 52.5 Lymph % (Auto) 24.5 Walker % (Auto) 17.9 H Eos % (Auto) 3.8 Baso % (Auto) 1.0 Lymph # (Auto) 0.97 [place] # (Auto) 0.7 H Eos # (Auto) 0.2 Baso # (Auto) 0.0 Abs Immat Gran (auto) 0.01 Absolute Neuts (auto) 2.1 Absolute Nucleated RBC 0.000 Nucleated RBC % 0.0 Platelet Estimate Decreased % Immature Plt Fraction 1.3 Hypochromasia 1+ Anisocytosis 1+ Schistocytes None seen Sodium 137 Potassium 3.3 L Chloride 105 Carbon Dioxide 26 Anion Gap 6 BUN 16 Creatinine 0.70 Estim Creat Clear Calc 107 Estimated GFR > 60 Glucose 116 H Calcium 8.2 L Total Bilirubin 3.9 H AST 42 H ALT 16 Alkaline Phosphatase 99 Total Protein 7.0 Albumin 2.7 L Quality VTE Prophylaxis VTE prophylaxis: mechanical ordered
[2024-02-14 14:00] VITALS: BP 113/65; PULSE 84; RESP 16; TEMP 36.4; O2SAT 94
--- NOTE | 2024-02-14 17:12 | P.TS_ITS ---
Transfer Discharge Sum: Prov Provider Date of admission: 02/09/24 10:16 Primary care physician: CLERK CASHIER PHYSICIAN Admitting clinician: Fiorella Owens MD Consults: 02/08/24 Consult to Physician Routine Comment: Spoke to 02/07 [id number] ([facility]) Consulting Provider: Uziel Lloyd order caller/MD group to consult: GI Reason for consultation: chronic paracentesis, poorly controlled at home Has provider been notified: Yes Attending physician on discharge: Shanice Monge Discharging clinician: Honey Kenny Anticipated date of transfer: 02/14/24 Receiving physician/facility: [facility] DS: Admitting Diagnosis Discharge Date 02/14/24 Admitting Diagnosis decompensation of cirrhosis of liver ascites 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 DS: Discharge Diagnosis Discharge Diagnosis (1) Cirrhosis: Qualifiers: Ascites presence: with ascites Hepatic cirrhosis type: unspecified hepatic cirrhosis Qualified Code(s): K74.60 - Unspecified cirrhosis of liver; R18.8 - Other ascites Code(s): K74.60 - Unspecified cirrhosis of liver Status: Acute Assessment and Plan: * Decompensated cirrhosis requiring frequent paracentesis * Autoimmune cirrhosis was being worked up in the past * She does have history of alcohol abuse in the past, unsure if this is primary cause considering in her history she was noted to have BACON * She needs to go to hepatobiliary doctor for further workup of underlying cause however has not been set up an appointment. * GI following and increased her spironolactone to 150 mg daily * Paracentesis yesterday yielded 3.8L fluid removal * Accepted at [facility] by hospital medicine Dr. Velarde with Dr. Stover Roundhouse Worker accepting consult for further workup. Currently waiting on a bed at [facility]. (2) Ascites: Qualifiers: Ascites type: other type Qualified Code(s): R18.8 - Other ascites Code(s): R18.8 - Other ascites Status: Acute Assessment and Plan: Patient has chronic cirrhosis of the liver requiring paracentesis at least once a week according to the patient. Patient has been noncompliant with medications at home and currently does not have a primary care physician and has not followed up with hepatobiliary team in [place] as recommended her last few admissions. Her most recent paracentesis was last week with at least 4-4.5L removed. She was thought to have spontaneous bacterial peritonitis in the past verses autoimmune hepatitis. Presents today with large amount of ascites and anasarca. * Continue diuresis with Lasix 40 mg IV b.i.d. * Continue Spironolactone at 150 mg daily * Continue to watch blood pressure after paracentesis tomorrow due to low blood pressure readings in the past requiring midodrine * GI following * Patient agree[facility], [facility] Velarde with Dr. Stover Roundhouse Worker accepting consult for further workup. * CT of abdomen/pelvis showed cirrhosis of the liver with associated splenomegaly and large amount of abdominal pelvic ascites, small to moderate umbilical hernia containing fat and ascites fluid, 9 mm nonobstructing left renal stone * judd catheter in place * Continue fluid restriction * Continue cardiac monitoring * Peritoneal fluid from previous cultures on 12/30/2023 were negative for any ba cteria * Paracentesis yesterday with 3.8L ml fluid removal. (3) Portal hypertension: Code(s): K76.6 - Portal hypertension Status: Acute Assessment and Plan: * Continue spironolactone 150 mg daily per GI recommendation (4) TAB positive: Code(s): R76.8 - Other specified abnormal immunological findings in serum Status: Acute Assessment and Plan: * TAB screen positive with a TAB titer greater than 1 : 1280A, TAB titer 2 1:160A back in June of this year * ? Autoimmune hepatitis in the past * All other immunology labs were negative (5) Eosinophilia: Code(s): D72.10 - Eosinophilia, unspecified Status: Acute Assessment and Plan: * Eos 7.3>5.7>5.3>5.1 * consider Eosinophilic cirrhosis, however this is less likely as it is rare?? (6) Pancytopenia: Code(s): D61.818 - Other pancytopenia Status: Acute Assessment and Plan: * Likely secondary to decompensated cirrhosis * Continue to trend (7) Hypothyroidism: Code(s): E03.9 - Hypothyroidism, unspecified Status: Acute Assessment and Plan: * Continue Synthroid * TSH 68.600, free T4 1.14, total T3 0.64 * Patient has been noncompliant with her medications at home and we will hold off on increasing her Synthroid at this time Transfer Discharge Sum: Med Medications Active and Home Medications: Home Medications levothyroxine 200 mcg tablet 200 mcg PO DAILY 06/27/23 [History Confirmed 02/08/24] calcium 600 mg (as carbonate)-vit D3 10 mcg (400 unit)-minerals tablet 1 tablet PO DAILY 02/08/24 [History Confirmed 02/08/24] mecobalamin (vitamin B12) 1,000 mcg chewable tablet (B12 Active) 1,000 mcg PO DAILY 02/08/24 [History Confirmed 02/08/24] Active Medications Al Hydrox/Mg Hydrox/Simethicone (Mag Hydrox/Al Hydrox/Simeth 30 Ml Udc) 30 ml PO Q6H PRN PRN Reason: Indigestion Furosemide (Furosemide 20 Mg Tablet) 60 mg PO DAILY [facility] Last Admin: 02/14/24 08:38 Dose: 60 mg Levothyroxine Sodium (Levothyroxine Sodium 100 Mcg Tablet) 200 mcg PO DAILY@0630 [facility] Last Admin: 02/14/24 06:19 Dose: 200 mcg Morphine Sulfate (Morphine Sulfate (*Crx) 4 Mg/Ml Inj) 4 mg IV PUSH Q6H PRN PRN Reason: Pain Rated 7-10 Last Admin: 02/11/24 09:54 Dose: 4 mg Oxycodone HCl (Oxycodone Hcl (*Crx) 5 Mg Tab Ir) 5 mg PO Q4H PRN PRN Reason: Pain Rated 7-10 Last Admin: 02/13/24 23:54 Dose: 5 mg Pantoprazole Sodium (Pantoprazole 40 Mg Tablet) 40 mg PO QAM [facility] Last Admin: 02/14/24 08:38 Dose: 40 mg Polyethylene Glycol (Polyethylene Glycol 3350 17 Gm Powd.Pack) 17 gm PO QAM PRN PRN Reason: Constipation Potassium Chloride (Potassium Chloride 20 Meq Er Tablet) 20 meq PO DAILY [facility] Last Admin: 02/14/24 08:38 Dose: 20 meq Spironolactone (Spironolactone 50 Mg Tablet) 150 mg PO QAM [facility] Last Admin: 02/14/24 08:38 Dose: 150 mg Transfer Discharge Sum: Hosp Hospital Course Hospital course: Nasreen Orozco is a 53 year old female with significant past medical history decompensated liver disease with ascites who presented to the hospital on 02/08/24 for evaluation shortness of breath and abdominal fullness. Workup in the hospital include a chest x-ray which showed mild interstitial edema. 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 Initial labs shown a white blood cell count of 4.4, RBC 2.69, hemoglobin 8.3, platelet count 103 INR 1.8 sodium 133 creatinine 0.80 total bili 4.2, AST 51, ALT 19, albumin 2.7. Patient was sent for a paracentesis on 02/09/2024 and had 4500 mL of dark yellow fluid. Labs were essentially normal on the ascites fluid. Patient is agreeable to transfer to a tertiary level of care for hepatology Services considering her advanced decompensated liver disease. [facility] was called and patient was accepted by [facility] Medicine Dr. Velarde with Dr. Stover sub assembly team worker accepting consult. while waiting for a [facility] bed, patient had another paracentesis yielding 3800 mL of yellow fluid. Of note past workup of her decompensated liver failure was showing possible autoimmune hepatitis Due to positive TAB versus BACON however she has had drinks socially on occasion. patient states her last alcoholic beverage was about 2 months ago when she was at a alliance party. Patient finally transferred on 02/14/2024 over to [facility] for further workup in stable condition. final diagnosis: decompensation of cirrhosis of liver, ascites Condition: Stable Time Spent with Patient Time attestation: Total time spent providing and/or coordinating transfer services: Exam Narrative: General: In no acute distress, well nourished Eyes:PERRLA, sclera jaundiced, bulged Cardiac: Normal S1 and S2. No murmur, gallops or friction rubs, peripheral pulses intact. Respiratory: diminished in the bases, no adventitious lung sounds,currently on room air Gastrointestinal:Large distended, taunt umbilical hernia the treating, BS positive : Judd catheter in place, dark yellow urine noted Extremities: moves all extremities, anasarca present, BLE pitting edema- unchanged Skin:Jaundiced Neuro: Alert and oriented x4 DS: Data Data Completed and Pending Completed studies during hospitalization: abdomen pelvis CT chest x-ray Pending studies at discharge: 02/09/24 10:44 Cytology [PTH] Routine Labs on day of discharge: Labs from last 24 hours 02/14/24 05:57 WBC 4.0 L RBC 2.83 L Hgb 8.5 L Hct 28.2 L MCV 99.6 MCH 30.0 MCHC 30.1 L RDW 18.6 H Plt Count 89 L MPV 9.4 Immature Gran % (Auto) 0.3 Neut % (Auto) 52.5 Lymph % (Auto) 24.5 [place] % (Auto) 17.9 H Eos % (Auto) 3.8 Baso % (Auto) 1.0 Lymph # (Auto) 0.97 [place] # (Auto) 0.7 H Eos # (Auto) 0.2 Baso # (Auto) 0.0 Abs Immat Gran (auto) 0.01 Absolute Neuts (auto) 2.1 Absolute Nucleated RBC 0.000 Nucleated RBC % 0.0 Platelet Estimate Decreased % Immature Plt Fraction 1.3 Hypochromasia 1+ Anisocytosis 1+ Schistocytes None seen Sodium 137 Potassium 3.3 L Chloride 105 Carbon Dioxide 26 Anion Gap 6 BUN 16 Creatinine 0.70 Estim Creat Clear Calc 107 Estimated GFR > 60 Glucose 116 H Calcium 8.2 L Total Bilirubin 3.9 H AST 42 H ALT 16 Alkaline Phosphatase 99 Total Protein 7.0 Albumin 2.7 L Preliminary micro results at discharge 02/09/24 10:54 Anaerobic Culture - Preliminary Abdominal Fluid Procedures/Treatments: ultrasound-guided paracentesis x2 Imaging Radiologist's impression: [address] [place] [address] CT Scan Report Signed Patient: Nasreen Orozco : 1970 MR#: [id number] Age: 53 Acct:[id number] Loc: [id number] ADM Date: 02/08/24Attending Dr: Fiorella Owens M.D. Ordering Physician: Sandra Carlisle PA-C Date of Service: 02/07/24 Procedure(s): CT abdomen pelvis w con Accession Number(s): [id number] cc: Fiorella Owens MD; Sandra Carlisle PA-C; CLERK CASHIER PHYSICIAN~ CT of the Abdomen and Pelvis: Indication: Abdominal pain Technique: 2.5 mm axial scans were obtained through the abdomen and pelvis following intravenous administration of 100 cc of Omnipaque 350. Dose reduction technique was used on this scan by utilizing automated exposure control and iterative reconstruction technique. The dose-length product (DLP) was 1590.78 mGy-cm. COMPARISON: 01/05/2024 Findings: Scans through the lung bases are unremarkable. Liver is somewhat small, with diffuse nodular contour, compatible with cirrhosis. No definite focal hepatic mass seen. Cholecystectomy clips are present. Spleen is enlarged, measuring 15.1 cm in length. There are probable esophageal and splenorenal varices. The pancreas, adrenals and right kidney are within normal limits. 9 mm left renal stone present. No evidence of aortic aneurysm. No lymphadenopathy. No bowel obstruction. Images through the pelvis were performed. There is a large amount of abdominopelvic ascites, with associated mesenteric edema. There is a small to moderate fat-containing umbilical hernia with fluid in the hernia sac as well. Urinary bladder unremarkable. No adnexal mass evident. 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 Small to moderate umbilical hernia containing fat and ascitic fluid. 9 mm nonobstructing left renal stone. Reviewed, dictated and finalized at [facility]. ELAIN TECHNICIAN EXAMINATION: XR chest 2V Exam Date/Time: 02/07/2024 20:01 PORCELAIN TECHNICIAN HISTORY: SOB Comparison: 01/04/2024. RESULT: Lines, tubes, and devices: Cholecystectomy clips. Lungs and pleura: Low volumes in the frontal view, with crowding. Mild diffuse reticular opacities. Cardiomediastinal silhouette: Stable. Other: No acute osseous or upper abdominal finding. IMPRESSION: Mild interstitial edema. Reviewed, dictated and finalized at location K. ELAIN TECHNICIAN
[2024-02-14] MEDS: oxyCODONE HCL (*CRX) 5 MG TAB IR PO (20:24)
[2024-02-14 21:06] VITALS: BP 120/70; PULSE 94; RESP 16; TEMP 36.5; O2SAT 100
== END 2024-02-14 21:00 | disposition short-term general hospital (02) | DRG 442 ==
LOC: ANHED 20:23 → ANH3MEDSUR 02-08 00:55
PROVIDERS: Nurse Practitioner Family; Student in an Organized Health Care Education/Training Program; Admitting Provider Internal Medicine; Emergency Provider Physician Assistant; Visit Provider Nurse Practitioner Acute Care
DX: K75.81 Nonalcoholic steatohepatitis (NASH) (principal); D61.818 Other pancytopenia; I85.10 Secondary esophageal varices without bleeding; K76.6 Portal hypertension; R18.8 Other ascites; K74.60 Unspecified cirrhosis of liver; E03.9 Hypothyroidism, unspecified; D53.9 Nutritional anemia, unspecified; R76.8 Other specified abnormal immunological findings in serum; F10.90 Alcohol use, unspecified, uncomplicated; Z20.822 Contact with and (suspected) exposure to COVID-19; Z87.891 Personal history of nicotine dependence; Z91.148 Patient's other noncompliance with medication regimen for other reason
CPT/HCPCS: 36415; 49083; 71046; 74177; 80053; 82042; 82150; 82945; 83605; 83615; 83735; 84157; 84439; 84443; 84478; 84480; 84484; 85025; 85055; 85610; 85652; 85730; 86140; 87070; 87075; 87205; 87637; 88108; 88305; 89051; 93005; 96365; 96366; 96374; 96375; 96376; 99285; A9270; G0378; J1171; J1200; J1940; J2270; P9047; Q9967

== ENCOUNTER 2024-03-08 17:46 | Emergency (ER) | payer BC, MEDICAID, SELFPAY ==
--- NOTE | ~2024-03-08 | XR_ITS ---
EXAMINATION: XR chest 2V Exam Date/Time: 03/08/2024 20:01 AIR CONDITIONING INSULATION INSTALLER HISTORY: sob Comparison: 02/07/2024. RESULT: Lines, tubes, and devices: None. Lungs and pleura: Senescent changes, otherwise clear. Cardiomediastinal silhouette: Stable. Other: No acute osseous or upper abdominal finding. IMPRESSION: No acute cardiopulmonary process. Reviewed, dictated and finalized at location K. CONDITIONING INSULATION INSTALLER
--- NOTE | ~2024-03-08 | US_ITS ---
EXAMINATION: US paracentesis abd w/image DATE: 03/09/2024 10:48 INDICATION: Ascites. TECHNIQUE: The procedure and its risks and benefits were discussed with the patient. Potential risks discussed included bleeding and infection. The skin was prepped and draped in sterile fashion. 1% lid ocaine was used for local anesthesia. Under ultrasound guidance, a 5 Fr catheter with trochar was adv anced into the ascites in the left lower quadrant. Fluid was aspirated into vacuum bottles. The haley ter was removed, and a dressing was applied. There were no immediate complications. FINDINGS: Ultrasound images demonstrate ascites and the catheter within the fluid. IMPRESSION: 1. Successful ultrasound-guided paracentesis yielding 5000 mL of yellow fluid. Reviewed, dictated and finalized at location A. UM ARCHIVIST
[2024-03-08 17:51] VITALS: BP 130/50; PULSE 95; RESP 20; TEMP 36.4; O2SAT 98
--- NOTE | 2024-03-08 19:49 | ECG_ITS ---
Test Date: 2024-03-09 02:37:36 Measurements Intervals [place] Rate: 71 P: 36 FL: 192 QRS: -45 QRSD: 123 T: 57 QT: 465 QTc: 509 Interpretive Statements SINUS RHYTHM LEFT ANTERIOR FASCICULAR BLOCK [QRS AXIS <= -45, QR IN I, RS IN II] POSSIBLE SEPTAL INFARCT Compared to ECG 02/07/2024 19:21:48 NO SIGNIFICANT CHANGES Electronically Signed On 03-09-2024 14:54:58 MORTGAGE PROCESSING CLERK by Sulma Prado M.D.
--- NOTE | 2024-03-08 20:30 | PC.NURSE ---
unable to obtain straight stick labs, us usually required per pt.
[2024-03-08 23:22] VITALS: BP 99/49; PULSE 77; RESP 16; TEMP 36.5; O2SAT 96
[2024-03-09] VITALS (7 sets, daily range): BP systolic 100–122; BP diastolic 51–66; PULSE 74–99; RESP 13–25; TEMP 36.6–36.7; O2SAT 92–96
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
[2024-03-09 07:23] LABS: Basophils Percent Auto 1.2 % (0.2-1.2); Eosinophils Absolute Auto 0.2 K/mm3 (0-0.3); Eosinophils Percent Auto 4.7 % (0-4.4); Hematocrit 31.8 % (37.0-47.0); Hemoglobin 9.7 g/dL (12.0-15.0); Immature Granulocyte Absolute 0.02 K/mm3 (0.00-0.031); Immature Granulocyte Percent A 0.6 % (0-0.5); Lymphocytes Absolute Auto 0.97 K/mm3 (0.9-3.2); Lymphocytes Percent Auto 28.4 % (18.3-44.2); Mean Corpuscular HGB Conc 30.5 g/dl (32-36); Mean Corpuscular Volume 98.5 fl (80-100); Mean Platelet Volume 10.4 fl (7.4-10.4); Monocytes Absolute Auto 0.4 K/mm3 (0.1-0.6); Monocytes Percent Auto 11.7 % (2.6-8.5); Neutrophils Absolute Auto 1.8 K/mm3 (1.3-6.7); Neutrophils Percent Auto 53.4 % (45.5-73.1); Platelet Count Result 79 k/mm3 (150-375); Red Blood Count 3.23 M/mm3 (4.2-5.4); White Blood Count 3.4 K/mm3 (4.5-10.0)
[2024-03-09] MEDS: ACETAMINOPHEN 500 MG TABLET 1000 MG PO (07:38)
--- NOTE | 2024-03-09 07:46 | PC.NURSE ---
pt received 40 meq tablets of Potassium at 0420 this am.
[2024-03-09 08:30] LABS: INR 2.5; Prothrombin Time 26.9 Seconds (11.1-14.7)
[2024-03-09 09:10] LABS: Bilirubin Direct 0.4 mg/dL (0-0.3); Bilirubin Indirect 5.3 mg/dL (0-1.1); Magnesium 2.1 mg/dL (1.6-2.3)
--- NOTE | 2024-03-09 09:12 | PC.NURSE ---
ultrasound called and states they will be taking patient for paracentesis around 0930 this morning.
[2024-03-09 09:43] LABS: Anion Gap 5 mmol/L (4-12); Bilirubin,Total 8.2 mg/dL (0.2-1.3); Blood Urea Nitrogen 11 mg/dL (7-17); Calcium 8.6 mg/dL (8.4-10.2); Carbon Dioxide 23 mmol/L (22-30); Chloride 108 mmol/L (98-107); Estimated CRCL calculation 102 ml/min; Estimated Glomerular Filt Rate > 60; Glucose 86 mg/dL (65-110); Potassium 3.2 mmol/L (3.4-5.0); Sodium 136 mmol/L (137-145)
[2024-03-09 09:44] LABS: Alanine Aminotransferase 18 U/L (6-35); Albumin Level 3.3 g/dL (3.5-5.1); Alkaline Phosphatase 113 U/L (38-126); Aspartate Amino Transferase 51 U/L (14-36); Total Protein 7.9 g/dL (6.3-8.2)
[2024-03-09 10:33] LABS: Troponin I < 0.012 ng/mL (0.000-0.034)
[2024-03-09] MEDS: ALBUMIN HUMAN 25% 25 GM/100 ML 200 ML IVPB (11:00)
[2024-03-09 11:23] LABS: NT Pro B Type Natriuretic Pept 237 pg/mL (19.9-100)
--- NOTE | 2024-03-09 12:18 | PC.NURSE ---
Patient called out to nursing station and advised her IV was hurting. IV was assessed and rate of medication slowed down to 50mL/hr.
--- NOTE | 2024-03-09 15:33 | PC.NURSE ---
Nursing staff attempted to discharge patient. Patient states that she does not feel safe to be discharged. Care coordination notified.
--- NOTE | 2024-03-09 15:41 | PCCCNOTE ---
1541-Called to the pt's room for housing resources. [facility] contact information.-christopher.
[2024-03-11 01:43] LABS: Triiodothyronine T3 Free 1.6 pg/mL (2.3-4.2)
== END 2024-03-09 15:52 | disposition home or self-care (01) ==
PROVIDERS: Physician Assistant; Emergency Provider Student in an Organized Health Care Education/Training Program
DX: H92.02 Otalgia, left ear (principal); K74.60 Unspecified cirrhosis of liver; R18.8 Other ascites; E80.6 Other disorders of bilirubin metabolism; E87.6 Hypokalemia; D61.818 Other pancytopenia; K75.81 Nonalcoholic steatohepatitis (NASH); K76.6 Portal hypertension; E03.9 Hypothyroidism, unspecified; Z87.891 Personal history of nicotine dependence; Z79.899 Other long term (current) drug therapy
CPT/HCPCS: 36415; 49083; 71046; 80053; 82248; 83735; 83880; 84439; 84443; 84481; 84484; 85025; 85610; 85730; 93005; 96365; 96366; 99284; A9270; P9047

== ENCOUNTER 2024-12-24 13:11 | Inpatient (IN) | payer BC, MEDICAID, SELFPAY ==
[2024-12-24] VITALS (13 sets, daily range): BP systolic 91–121; BP diastolic 54–105; PULSE 73–81; RESP 12–20; TEMP 36.3–36.8; O2SAT 85–100; BMI 31.7
--- NOTE | ~2024-12-24 | XR_ITS ---
EXAMINATION: XR chest 1V portable COMPARISON: No comparisons available. HISTORY: SOA FINDINGS: There are scattered small airspace opacities No pneumothorax. Heart is normal size. Mediastinal and hilar contours are within normal limits. Bony thorax no acute abnormality. Miscellaneous: None Impression: Early bilateral pneumonia Reviewed, dictated and finalized at location P. Impression: Early bilateral pneumonia
--- NOTE | ~2024-12-24 | US_ITS ---
EXAMINATION: US paracentesis abd w/image DATE: 12/27/2024 14:23 INDICATION: Ascites. TECHNIQUE: The procedure and its risks and benefits were discussed with the patient. Potential risks discussed included bleeding and infection. The skin was prepped and draped in sterile fashion. 1% lidocaine was used for local anesthesia. Under ultrasound guidance, a 5 Fr catheter with trochar was advanced into the ascites in the left lower quadrant. Fluid was aspirated into vacuum bottles. The catheter was removed, and a dressing was applied. There were no immediate complications. FINDINGS: Ultrasound images demonstrate ascites and the catheter within the fluid. IMPRESSION: 1. Successful ultrasound-guided paracentesis yielding 5000 mL of clear straw- colored fluid. Reviewed, dictated and finalized at location A. IMPRESSION: 1. Successful ultrasound-guided paracentesis yielding 5000 mL of clear straw-c olored fluid.
--- NOTE | ~2024-12-24 | XR_ITS ---
EXAMINATION: XR chest 1V portable COMPARISON: No comparisons available. HISTORY: SOB FINDINGS: Small basilar infiltrates No pneumothorax. Heart is normal size. Mediastinal and hilar contours are within normal limits. Bony thorax no acute abnormality. Miscellaneous: None Impression: Early basilar pneumonia Reviewed, dictated and finalized at location P. Impression: Early basilar pneumonia
--- OUTSIDE RECORDS SUMMARY | 2024-12-24 13:14 | XMS_ITS | Encounter Summary ---
Author Organization [employer] [facility] Address [address] [place] [address] Care Team Providers Care Glass Bead Maker Name Role Phone Jhonny, Tri Shirley DO Primary Care Provider [phone] Encounter Details Date Type Department Care Team (Late st Contact Info) Description 04/25/1998 Outpatient Historical [facility] Hugh Gimenez [address] [place] [address] Unspecified hypothyroidism (Primary Dx) Social History Tobacco Use Types Packs/Day Years Used Date Smoking Tobacco: Never Assessed Comments Unknown Sex and Gender Information Value Date Recorded Sex Assigned at Not on file Legal Sex Female 6:00 PM TERRITORY SUPERVISOR Gender Identity Not on file Sexual Orientation Not on file documented as of this encounter Plan of Treatment Not on file documented as of this encounter Visit Diagnoses Diagnosis Unspecified hypothyroidism- Primary documented in this encounter Additional Health Concerns Infection Onset Date Last Indicated Resolved Time R/O C. diff 10/06/2023 10/06/2023 10/07/2023 4:03 PM CDT R/O C. diff 10/30/2023 10/30/2023 10/30/2023 7:24 PM CDT R/O C. diff 11/10/2023 11/10/2023 11/10/2023 4:16 PM CDT R/O Respiratory 11/12/2023 11/12/2023 11/12/2023 3 :16 PM CDT R/O C. diff 11/29/2023 11/29/2023 11/30/2023 2:30 PM CDT R/O C. diff 12/23/2023 12/23/2023 12/23/2023 5:59 PM CDT R/O COVID-19 05/20/2024 05/20/2024 05/20/2024 12:4 3 PM TERRITORY SUPERVISOR documented as of this encounter Care Teams Glass Bead Maker Relationship Specialty Start Date End Date Tri Barry DO PCP - General Family Practice 02/09/21 12/24/22 documented as of this encounter
--- OUTSIDE RECORDS SUMMARY | 2024-12-24 13:14 | XMS_ITS | Encounter Summary ---
Author Organization [facility] Address [address] [place] [address] Care Team Providers Care Kiln Puller Name Role Phone Tri Barry DO Primary Care Provider [phone] Encounter Details Date Type Department Care Team (Late st Contact Info) Description 07/25/1998 Outpatient Historical [facility] Medicine [address] [place] [address] Adelaide Saldivar Social History Tobacco Use Types Packs/Day Years Used Date Smoking Tobacco: Never Assessed Comments Unknown Sex and Gender Information Value Date Recorded Sex Assigned at Not on file Legal Sex Female 6:00 PM NAILER MACHINE Gender Identity Not on file Sexual Orientation Not on file documented as of this encounter Plan of Treatment Not on file documented as of this encounter Visit Diagnoses Not on filedocumented in this encounter Additional Health Concerns Infection [...] COVID-19 05/20/2024 05/20/2024 05/20/2024 12:4 3 PM NAILER MACHINE documented as of this encounter Care Teams Kiln Puller Relationship Specialty Start Date End Date Tri Barry DO PCP - General Family Practice 02/09/21 12/24/22 documented as of this encounter
--- OUTSIDE RECORDS SUMMARY | 2024-12-24 13:14 | XMS_ITS | Encounter Summary ---
Author Organization [facility] Address [address] [place] [address] Care Team Providers Care Materials Management Supervisor Name Role Phone Unavailable Primary Care Provider Unavailabl e Reason for Visit * Reason Onset Date Comments Liver failure - alcohol abuse 10/06/2023 [facility] CHAT @ DR LUIS E MEDEROS Encounter Details Date Type Department Care Team (Late st Contact Info) Description 10/06/2023 Telephone [facility] Admitting [address] [place] [address] Chantale Mello PA-C [address] [address] Liver failure - alcohol abuse ([facility] @ DR LUIS E MEDEROS) Social History Tobacco Use Types Packs/Day Years Used Date Smoking Tobacco: Every Day Cigarettes 0.3 15 Smokeless Tobacco: Never Comments:started at age 26 Alcohol Use Standard Drinks/Week Comments Yes 0 (1 standard drink = 0.6 oz pur e alcohol) weekly-occ Feeling Safe Answer Date Recorded Are you in a relationship wi th someone who hurts you emotionally and/or physically? 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
--- OUTSIDE RECORDS SUMMARY | 2024-12-24 13:14 | XMS_ITS | Encounter Summary ---
Author Organization [facility] Address [address] [place] [address] Care Team Providers Care Printing Bindery Assistant Name Role Phone Jhonny, Tri Shirley DO Primary Care Provider [phone] Encounter Details Date Type Department Care Team (Late st Contact Info) Description 12/14/2003 Outpatient Historical [facility] Medical [place] [facility] [address] [address] [address] Carly Armijo MD Social History Tobacco Use Types Packs/Day Years Used Date Smoking Tobacco: Never Assessed Comments Unknown Sex and Gender Information Value Date Recorded Sex Assigned at Not on file Legal Sex Female 6:00 PM DIAGNOSTIC TECHNOLOGIST Gender Identity Not on file Sexual Orientation [...] COVID-19 05/20/2024 05/20/2024 05/20/2024 12:4 3 PM DIAGNOSTIC TECHNOLOGIST documented as of this encounter Care Teams Printing Bindery Assistant Relationship Specialty Start Date End Date Tri Barry DO PCP - General Family Practice 02/09/21 12/24/22 documented as of this encounter
--- OUTSIDE RECORDS SUMMARY | 2024-12-24 13:14 | XMS_ITS | Clinical Summary ---
Author Organization [facility] Address [address] & [place] [address] Care Team Providers Care Material Planner Name Role Phone Unavailable Primary Care Provider Unavailabl e Allergies Active Allergy Reactions Criticality Noted Date Comments Amoxicillin Hives High 10/05/2023 Latex Rash Low 02/11/2012 Prednisone Hives High 08/15/2023 Other Reaction(s): Hives / Skin Rash Medications cyanocobalamin 1,000 mcg Tablet Take 1,000 mcg by mouth daily. Active albuterol sulfate HFA 90 mcg/actuation aerosol inhaler Take 2 Puffs by inhalation every 6 hours as needed for Wheezing. 8.5 Gram 4 Active thiamine (VITAMIN B-1) 100 mg tablet Take 1 Tablet (100 mg) by mouth daily. 30 Tablet 4 Active pantoprazole (PROTONIX) 40 mg Tablet, Delayed Release (E.C.) Take 1 Tablet (40 mg) by mouth two times daily, before breakfast and bedtime. 60 Tablet 12/15/2023 5:10 PM CDT 4 Active selenium sulfide (SELSUN) 2.5 % Lotion Starting 12/25/23, Shake well and apply to scalp and face twice weekly. 118 mL 1 4 Active bumetanide (BUMEX) 0.5 mg tablet Take 2 mg by mouth daily. 5 Active carvediloL (COREG) 3.125 mg tablet Take 1 tablet by mouth 2 (two) times a day with Breakfast and Dinner. 4 Active spironolactone (ALDACTONE) 50 mg tablet Take 150 mg by mouth daily. Active folic acid (FOLVITE) 1 mg tablet Take 1 mg by mouth daily. Active ergocalciferol (VITAMIN D2) 50,000 unit capsule Take 50,000 Units by mouth every 7 days. Active cholecalciferol 1,250 mcg (50,000 unit) Capsule Take 1 Capsule by mouth every 7 days. Active rifAXIMin (XIFAXAN) 550 mg Tablet Take 550 mg by mouth 2 times daily. Active levothyroxine 200 mcg tabletIndications: Acquired hypothyroidism Take 0.5 Tablets (100 mcg) by mouth daily in the morning. Active lactulose (ENULOSE) 10 gram/15 mL oral solution Take 30 mL by mouth 3 times daily. Active Active Problems Problem Noted Date Diagnosed Date Coagulopathy 12/14/2023 Non compliance w medication regimen 12/13/2023 QT prolongation 12/13/2023 Hypotension 12/02/2023 Cytopenia 12/02/2023 Generalized abdominal pain 11/28/2023 Chronic anemia 11/28/2023 Thrombocytopenia 11/28/2023 Decompensated hepatic cirrhosis 11/28/2023 Generalized muscle weakness 11/28/2023 Shortness of breath 11/28/2023 Debility 11/27/2023 Hyponatremia 11/27/2023 Thrombocytopenia concurrent with and due to alco holism 11/20/2023 Esophageal varices in alcoholic cirrhosis 2023 At risk for malnutrition 11/20/2023 (HFpEF) heart failure with preserved ejection fr action 11/20/2023 Hypokalemia 11/20/2023 Encephalopathy 11/17/2023 Acute hypoxic respiratory failure 11/16/2023 Acute metabolic encephalopathy 11/12/2023 Hemorrhagic shock 11/10/2023 GI bleed 11/09/2023 Acute blood loss anemia 11/09/2023 Hematemesis with nausea 11/09/2023 Alcohol abuse 10/30/2023 Abdominal wall hematoma 10/11/2023 Anemia 10/11/2023 Decompensation of cirrhosis of liver 10/06/2023 Hyperbilirubinemia 10/06/2023 Elevated liver enzymes 10/06/2023 Ascites due to alcoholic cirrhosis 10/06/2023 Macrocytic anemia 10/06/2023 Hypothyroidism 10/06/2023 Alcoholic cirrhosis 10/06/2023 Thrombocytopenia affecting 10/06/2023 Acquired hypothyroidism 02/14/2018 Cigarette nicotine dependence 02/14/2018 Vitamin D deficiency 02/14/2018 History of non anemic vitamin B12 deficiency Exposure to heavy metals 02/14/2018 Vitamin B12 deficiency 12/18/2010 Overview (02/09/2021): 12-18-2010; Level: 220. Get B12 1000mcg and take daily. Mass of neck 09/14/2010 Overview (02/09/2021): Labs normal, lft stable, elevated in the past. US of neck done today. 09-19-2010 US of neck shows probable lymph node, to Dr. Dominguez/Miriam. Resolved Problems Problem Noted Date Diagnosed Date Resolved Date Hypoxia 12/02/2023 12/13/2023 DDD (degenerative disc disease), lumbosacral 9 02/09/2021 Left shoulder pain 04/13/2018 Overview (10/02/2018): Left rotator cuff tear Occupational exposure in workplace 02/14/2018 02/09/2021 DUB (dysfunctional uterine bleeding) 02/17/2012 01/07/2019 Encounters Date Type Department Care Team Description 12/21/2024 External Device Data [facility] Provider, Abstract 12/07/2024 External Device Data [facility] Provider, Abstract 11/24/2024 External Device Data [facility] Provider, Abstract 11/23/2024 External Device Data [facility] Provider, Abstract 11/23/2024 External Device Data [facility] Provider, Abstract 11/21/2024 10:30 AM CDT - 11/21/2024 11:59 PM CDT Hospital Encounter [facility] [address] [address] Luis Sage MD Ambulance, [facility] Discharge Disposition: Intermediate Care Facility 11/20/2024 Travel 11/19/2024 4:26 PM CDT - 11/21/2024 5:40 PM CDT Hospital Encounter [facility] [address] [place] [address] Fifi Adler MD Caffrey, MD Raheel Cruz, DO Natty Mosley Laura Jean, MD Baig, Luis Shirley MD Decompensated hepatic cirrhosis (CMS/HCC) Discharge Disposition: Intermediate Care Facility 11/03/2024 External Device Data [facility] Provider, Abstract 11/02/2024 External Device Data [facility] Provider, Abstract from Last 3 Months Immunizations Immunization Administration Dates Next Due (ADACEL/BOOSTRIX)(10 YR UP) TDAP VACCINE, 0.5ML, IM 09/29/2009 (VARIVAX)(12 MOS UP)VARICELL A VIRUS VACCINE (PF) 0.5 ML, SUB CUT 12/11/2011 Family History Medical History Relation Name Comments Healthy Father Leukemia Maternal Grandfather Unknown Maternal Grandmother Stroke Mother CVA x 3 Thyroid Disease Mother Unknown Paternal Grandfather Lung Cancer Paternal Grandmother Lung ca ncer with mets Thyroid Disease Sister Colon Cancer Neg Hx Esophageal Cancer Neg Hx Gastric Cancer Neg Hx Liver Cancer Neg Hx Pancreatic Cancer Neg Hx Relation Name Status Comments Brother Liver disease s econdary to anthrax immunization Father Alive Maternal Grandfather Maternal Grandmother Mother Alive Paternal Grandfather Paternal Grandmother Sister Alive Social History Tobacco Use Types Packs/Day Years Used Date Smoking Tobacco: Former Cigarettes 0.3 15 Smokeless Tobacco: Never Tobacco Cessation:Counseling Given: Not Answered Comments:started at age 26 Alcohol Use Standard Drinks/Week Comments Not Currently 0 (1 standard drink = 0.6 oz pur e alcohol) quit in October of 2023 Feeling Safe Answer Date Recorded Are you in a relationship wi th someone who hurts you emotionally and/or physically? 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 Not on file Not on file Not on file Not on file Not on file Not on file Last Filed Vital Signs Vital Sign Reading Time Taken Comments Blood Pressure 98/56 11/21/2024 6:41 AM CDT Pulse 71 11/21/2024 6:41 AM CDT Temperature 36.8 C (98.3 F) 11/21/2024 9:40 AM CDT Respiratory Rate 12 11/21/2024 6:41 AM CDT Oxygen Saturation 97% 11/21/2024 6:41 AM CDT Inhaled Oxygen Concentration - - Weight 92.5 kg (203 lb 14.4 oz) 11/20/2024 3:55 AM CDT Height 170.2 cm (5' 7) 11/20/2024 3:55 AM CDT Body Mass Index 31.94 11/20/2024 3:55 AM CDT Plan of Treatment Health Maintenance Due Date Last Done Comments Pre-Diabetes and Diabetes Screening 1970 HEPATITIS B VACCINES (1 of 3 - 19+ 3-dose series) 01/30 BREAST CANCER SCREENING 06/21/2014 06/21/2013 COLORECTAL SCREENING 2015 Colorectal Cancer Screening 2015 FIT-DNA Q 3 years 2015 FIT/FOBT Q 1 year 2015 Flex Sig/CT Colonography Q 5 years 2015 DTAP/TDAP/TD VACCINES (2 - Td or Tdap) 09/30/2019 ZOSTER VACCINE (1 of 2) 02/22/2020 INFLUENZA VACCINE (#1) 2024 Medical Devices Implanted Type Area Hog Scraper Device Identifier Shelf Expiration Date Model / Serial / Lot Ligator Band 2 Super 7 [id number] - [id number] Implanted:Qty: 2 on 11/10/2023 by Montserrat Lyman MD at [facility] [id number] 11/29/2023 [id number] / / [id number] Procedures Procedure Name Priority Date/Time Associated Diagnosis Comments TELEMETRY REPORT 11/25/2024 3:20 PM CDT BASIC METABOLIC PANEL Routine 11/21/2024 1:39 AM CDT CBC WITH DIFFERENTIAL Routine 11/21/2024 1:39 AM CDT CELL COUNT WITH DIFFERENTIAL, BODY FLUID Routine 11/20/2024 1:13 PM CDT ANAEROBIC/AEROBIC CULTURE W GRAM STAIN Routine 11/20/2024 1:13 PM CDT TROPONIN 2 HR, 5TH GEN Timed Study 11/20/2024 12:44 AM CDT AMMONIA LEVEL Stat 11/19/2024 9:45 PM CDT TROPONIN BASELINE, 5TH GEN Stat 11/19/2024 9:45 PM CDT COMPREHENSIVE METABOLIC PANEL Stat 11/19/2024 9:45 PM CDT CBC WITH DIFFERENTIAL Stat 11/19/2024 9:45 PM CDT XR CHEST PA OR AP 1 VW Stat 11/19/2024 4:50 PM CDT EKG 12-LEAD Stat 11/19/2024 4:02 PM CDT MAMMO SCREEN BILAT W OR WO CAD Routine 06/21/2013 12:04 PM CDT Routine gynecological examination from Last 3 Months or Most Recently Relevant to Health Maintenance Results * TELEMETRY REPORT (11/25/2024 3:20 PM CDT) us Provider Scanning ECG ORDERABLES Final Result * (ABNORMAL) CBC WITH DIFFERENTIAL (11/21/2024 1:39 AM CDT) Only the most recent of2 resultswithin the time period is included. WBC 4.9 4.0 - 9.8 K/uL 11/21/2024 2:10 AM [facility] - [facility] RBC 2.44(L) 3.90 - 4.90 M/uL 11/21/2024 2:10 AM [email or web address] - [facility] HEMOGLOBIN 8.0(L) 11.8 - 14.8 g/dL 11/21/2024 2:10 AM [facility] [facility] - [facility] HEMATOCRIT 24.3(L) 35.5 - 44.0 % 11/21/2024 2:10 AM CDT [facility] [facility] [facility] - [facility] MCV 99.6(H) 82.0 - 99.0 fL 11/21/2024 2:10 AM [facility] [employer] [facility] - [facility] MCH 32.8(H) 27.2 - 32.6 pg 11/21/2024 2:10 AM [facility] - [facility] MCHC 32.9 31.5 - 35.5 g/dL 11/21/2024 2:10 AM [facility] RDW 16.8(H) 11.5 - 14.5 % 11/21/2024 2:10 AM [facility] RDW-STDEV 61.6(H) 37.1 - 48.7 fL 11/21/2024 2:10 AM [facility] PLATELETS 71(L) 140 - 350 K/uL 11/21/2024 2:10 AM [facility] Comment:Persistent abnormal result. MPV 10.5 9.3 - 12.4 fL 11/21/2024 2:10 AM [facility] NEUTROPHILS 55 % 11/21/2024 2:10 AM [facility]T [facility] [facility] - [facility] LYMPHOCYTES 20 % 11/21/2024 2:10 AM [email or web address] MONOCYTES 22 % 11/21/2024 2:10 AM CDT [facility] [facility] [facility] - [facility] EOSINOPHILS 2 % 11/21/2024 2:10 AM [email or web address] - [facility] BASOPHILS 1 % 11/21/2024 2:10 AM [email or web address] - [facility] IMMATURE GRANULOCYTES 0 % 11/21/2024 2:10 AM CDT [facility] - [facility] [place] NEUTROPHIL ABSOLUTE 2.69 1.90 - 7.00 K/uL 11/21/2024 2:10 AM CDT [facility] LYMPHOCYTE ABSOLUTE 0.96 0.70 - 4.50 K/uL 11/21/2024 2:10 AM CDT [facility] MONOCYTE ABSOLUTE 1.07 0.10 - 1.30 K/uL 11/21/2024 2:10 AM CDT [facility] EOSINOPHIL ABSOLUTE 0.10 0.00 - 0.70 K/uL 11/21/2024 2:10 AM [facility] - [facility] BASOPHILS ABSOLUTE 0.04 0.00 - 0.20 K/uL 11/21/2024 2:10 AM [facility] - . [facility] IMMATURE GRANULOCYTES ABSOLUTE 0.01 0.00 - 0.03 K/uL 11/21/2024 2:10 AM CDT [facility] - [facility] Blood Venipuncture / Unknown 11/21/2024 1:39 AM CDT 11/21/2024 1:50 AM CDT us Luis Sage MD HEMATOLOGY ORDERABLES Final Res ult [facility]# [id number] [address] [place] [id number] * (ABNORMAL) BASIC METABOLIC PANEL (11/21/2024 1:39 AM CDT) SODIUM 133(L) 136 - 145 mmol/L 11/21/2024 2:21 AM CDT [facility] POTASSIUM 4.0 3.5 - 5.0 mmol/L 11/21/2024 2:21 AM CDT [facility] CHLORIDE 102 98 - 107 mmol/L 11/21/2024 2:21 AM CDT [facility] CO2 23 22 - 29 mmol/L 11/21/2024 2:[facility] 8.3(L) 8.6 - 10.2 mg/dL 11/21/2024 2:21 AM [facility] BUN 27(H) 6 - 20 mg/dL 11/21/2024 2:21 AM [facility] CREATININE 1.02(H) 0.51 - 0.95 mg/dL 11/21/2024 2:21 AM [facility] GLUCOSE 88 74 - 99 mg/dL 11/21/2024 2:21 AM [facility] GFR >60 >=60 mL/min/1.7 3 sq meter 11/21/2024 2:21 AM [facility] Comment:eGFR calculated with 2020 CKD-EPI equation. Vegetarian diet, extremely high or low muscle mass, and may affect results. Cystatin C with Glomerular Filtration Rate is a suitable alternative for these patients. ANION GAP 8 8 - 16 mmol/L 11/21/2024 2:21 AM [facility] Blood Venipuncture / Unknown 11/21/2024 1:39 AM CDT 11/21/2024 1:49 AM CDT Luis Sage MD CHEMISTRY ORDERABLES Final Resu lt [facility]# [id number] [address] [place] [id number] * ANAEROBIC/AEROBIC CULTURE W GRAM STAIN (11/20/2024 1:13 PM CDT) CULTURE No aerobic or anaerobic growth 11/25/2024 2:42 PM T [facility] GRAM STAIN No organisms observed 11/25/2024 2:42 PM [facility] GRAM STAIN 2+ (Few) Polymorphonuclear WBC 11/25/2024 2:42 PM T [facility] Body fluid ENTIRE SEROUS MEMBRANE OF PERITONEUM / Unknown Collection / Unknown 11/20/2024 1:13 PM CDT 11/20/2024 1:50 PM CDT Luis Sage MD MICROBIOLOGY - GENERAL ORDERABL ES Final Result [facility] - [facility] CLIA# [id number] [address] [place] [address] * CELL COUNT WITH DIFFERENTIAL, BODY FLUID (11/20/2024 1:13 PM CDT) APPEARANCE, BODY FLUID Clear 11/20/2024 3:51 PM CDT [facility] - [facility] COLOR, FLD Yellow 11/20/2024 3:51 PM CDT [facility] - [facility] TOTAL NUCLEATED CELLS, FLD (AUTO) 152 No Ref Range Estab /ul 11/20/2024 3:51 PM CDT [facility] - [facility] TOTAL RBC'S, FLD (AUTO) <1,000 No Ref Range Estab /ul 11/20/2024 3:51 PM CDT [facility] - [facility] NEUTROPHILS, FLD 2 No Ref Range Estab % 11/20/2024 3:51 PM CDT [facility] SERVICES - . [facility] LYMPHOCYTE, FLD 30 No Ref Range Estab % 11/20/2024 3:51 PM CDT [facility] - [facility] MONOCYTE/MACRO PHAGE, FLD 67 No Ref Range Estab % 11/20/2024 3:51 PM CDT [facility] - [facility] Body fluid ENTIRE SEROUS MEMBRANE OF PERITONEUM / Unknown Collection / Unknown 11/20/2024 1:13 PM CDT 11/20/2024 1:50 PM CDT us Luis Sage MD BODY FLUIDS AND STOOLS Final Re sult [facility] - [facility] CLIA# [id number] [address] [place] [address] * (ABNORMAL) TROPONIN 2 HR, 5TH GEN (11/20/2024 12:44 AM CDT) TROPONIN T, 2 HR 5TH GEN 27(H) <=10 ng/L 11/20/2024 1:30 AM CDT [facility] DELTA 2HR TROPONIN T 7 See Interp. 11/20/2024 1:30 AM CDT [facility] Blood Venipuncture / Unknown 11/20/2024 12:44 AM CDT 11/20/2024 12:47 AM CDT [facility] - 11/20/2024 1:30 AM CDT Troponin elevated. Delta indeterminate. Delay in collection of timed specimen beyond recommended collection interval. Results must be interpreted in clinical context. Fifi Adler MD CHEMISTRY ORDERABLES Final R esult Performing Organization Address [facility]/ZIP Co de Phone Number [facility]# [id number] [address] [place] [address] * (ABNORMAL) TROPONIN BASELINE, 5TH GEN (11/19/2024 9:45 PM CDT) [facility] TROPONIN T, BASELINE 5TH GEN 20(H) <=10 ng/L 11/19/2024 10:31 PM CDT [facility] Blood Venipuncture / Unknown 11/19/2024 9:45 PM CDT 11/19/2024 9:52 PM CDT [facility] - 11/19/2024 10:31 PM CDT Troponin elevated. Fifi Adler MD CHEMISTRY ORDERABLES Final R esult [facility]# [id number] [address] [place] [address] * (ABNORMAL) AMMONIA LEVEL (11/19/2024 9:45 PM CDT) Pathologist [facility] AMMONIA 71.3(H) 11.0 - 51.0 umol/L 11/19/2024 10:19 PM CDT [facility] Blood, venous Venipuncture / Unknown 11/19/2024 9:45 PM CDT 11/19/2024 9:52 PM CDT Ashish Perez MD CHEMISTRY ORDERABLES Final Result [facility] SERVICES [facility] CLIA# [id number] [address] [place] [address] * (ABNORMAL) COMPREHENSIVE METABOLIC PANEL (11/19/2024 9:45 PM CDT) SODIUM 131(L) 136 - 145 mmol/L 11/19/2024 10:31 PM CDT [facility] [facility] LAB[facility]ORY SERVICES - . [facility] POTASSIUM 4.2 3.5 - 5.0 mmol/L 11/19/2024 10:31 PM T [facility] - . [facility] CHLORIDE 100 98 - 107 mmol/L 11/19/2024 10:31 PM CDT [facility] - [facility] CO2 21(L) 22 - 29 mmol/L 11/19/2024 10:31 PM CDT [facility] SERVICES - . [facility] CALCIUM 8.5(L) 8.6 - 10.2 mg/dL 11/19/2024 10:31 PM T [facility] [facility] - [facility] BUN 22(H) 6 - 20 mg/dL 11/19/2024 10:31 PM T [facility] - [facility] [place] CREATININE 0.99(H) 0.51 - 0.95 mg/dL 11/19/2024 10:31 PM CDT [facility] [employer] [facility] - [facility] GLUCOSE 93 74 - 99 mg/dL 11/19/2024 10:31 PM T [facility] SERVICES - . [facility] TOTAL PROTEIN 6.1(L) 6.7 - 8.6 g/dL 11/19/2024 10:31 PM CDT [facility] [facility] - . [facility] ALBUMIN 3.0(L) 3.5 - 5.2 g/dL 11/19/2024 10:31 PM CDT [facility] BILIRUBIN TOTAL 2.7(H) 0.0 - 1.2 mg/dL 11/19/2024 10:31 PM CDT [facility] ALKALINE PHOSPHATASE 129(H) 35 - 104 U/L 11/19/2024 10:31 PM CDT [facility] AST 39(H) <33 U/L 11/19/2024 10:31 PM T [facility] Comment:Hemolysis present. R esult may be falsely elevated. ALT 13 <34 U/L 11/19/2024 10:31 PM T [facility] GFR >60 >=60 mL/min/1.7 3 sq meter 11/19/2024 10:31 PM T [facility] Comment:eGFR calculated with 2020 CKD-EPI equation. Vegetarian diet, extremely high or low muscle mass, and may affect results. Cystatin C with Glomerular Filtration Rate is a suitable alternative for these patients. ANION GAP 10 8 - 16 mmol/L 11/19/2024 10:31 PM CDT [facility] Blood Venipuncture / Unknown 11/19/2024 9:45 PM CDT 11/19/2024 9:52 PM CDT Narrative [facility] - 11/19/2024 10:31 PM CDT Samples containing indocyanine green cause interferences on Total and/or Direct Bilirubin and must not be measured. us Fifi Adler MD CHEMISTRY ORDERABLES Final R esult [facility]# [id number] [address] [place], [place] [address] * XR CHEST PA OR AP 1 VW (11/19/2024 4:50 PM CDT) Anatomical Region Laterality Modality Chest Computed Radiogr aphy 11/19/2024 4:51 PM CDT Impressions 11/19/2024 4:59 PM CDT IMPRESSION: 1. No acute cardiopulmonary findings. Dictation location: Location 4 Narrative 11/19/2024 4:59 PM CDT XR CHEST PA OR AP 1 VW DATE: 11/19/2024 4:50 PM CLINICAL INDICATION: Chest Pain. COMPARISON: May 20, 2024. TECHNIQUE: A single frontal view of the chest is provided. FINDINGS: The cardiac silhouette is not enlarged. No pleural effusion, airspace opacities, pneumothorax, midline shift, or acute displaced rib fracture is identified. Procedure Note Chente Aguirre MD - 11/19/2024 XR CHEST PA OR AP 1 VW DATE: 11/19/2024 4:50 PM CLINICAL INDICATION: Chest Pain. COMPARISON: May 20, 2024. TECHNIQUE: A single frontal view of the chest is provided. FINDINGS: The cardiac silhouette is not enlarged. No pleural effusion, airspace opacities, pneumothorax, midline shift, or acute displaced rib fracture is identified. IMPRESSION: 1. No acute cardiopulmonary findings. 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1970 Requested By: Order Number: [id number] Reading MD: Domenico Barrientos Measurements Intervals [place] Rate: 70 P: 42 NV: 170 QRS: -46 QRSD: 123 T: 24 QT: 463 QTc: 500 Interpretive Statements Sinus rhythm Nonspecific IVCD with LAD Left ventricular hypertrophy Anterior Q waves, possibly due to LVH Electronically Signed On 11-19-2024 17:24:21 CDT by Domenico Barrientos Procedure Note Domenico Barrientos MD - 08/22/2025 [facility] [address] , [place] [address] Test Date: 2024-11-19 Pat Name: VALE MAGUIRE Department: 38 Room: Gender: Female 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1970 Requested By: Order Number: [id number] Reading MD: Domenico Barrientos Measurements Intervals [place] Rate: 70 P: 42 NV: 170 QRS: -46 QRSD: 123 T: 24 QT: 463 QTc: 500 Interpretive Statements Sinus rhythm Nonspecific IVCD with LAD Left ventricular hypertrophy Anterior Q waves, possibly due to LVH Electronically Signed On 11-19-2024 17:24:21 CDT by Domenico Barrientos us Fifi Adler MD ECG ORDERABLES Final Result INTERFACE SYSTEM Refer to clinic/hospital department * MAMMO DIGITAL SCREEN BILAT (06/21/2013 12:04 PM CDT) Anatomical Region Laterality Modality Breast Bilateral Mammography 06/21/2013 12:0 4 PM CDT Narrative 06/23/2013 1:34 PM CDT DIGITAL SCREENING MAMMOGRAM WITH COMPUTER-ASSISTED DIAGNOSIS 06/21/13 HISTORY: Annual screening study. FINDINGS: This is the patient's baseline mammogram. The breasts were imaged with digital mammographic technique. The breasts are almost entirely fat. No significant mass, malignant calcification or architectural distortion is noted. The CAD system does not highlight any suspicious areas. SUMMARY: No mammographic evidence of malignancy. RECOMMENDATIONS: Bilateral yearly screening mammogram is recommended. BI-RADS 1 - Negative. Dictated from [facility] Procedure Note Kadi Eller MD - 06/23/2013 DIGITAL SCREENING MAMMOGRAM WITH COMPUTER-ASSISTED DIAGNOSIS 06/21/13 HISTORY: Annual screening study. FINDINGS: This is the patient's baseline mammogram. The breasts were imaged with digital mammographic technique. The breasts are almost entirely fat. No significant mass, malignant calcification or architectural distortion is noted. The CAD system does not highlight any suspicious areas. SUMMARY: No mammographic evidence of malignancy. RECOMMENDATIONS: Bilateral yearly screening mammogram is recommended. BI-RADS 1 - Negative. Dictated from [facility] us Dante Patrick MD MAMMO ORDERABLES Final Resu lt from Last 3 Months or Most Recently Relevant to Health Maintenance Insurance [facility] EXCHANGE MEDICAID [place] [facility] Commercial RX [employer] (INTERNAL) [facility] Internal [facility] RX INFO[employer]OSSING Medicaid Advance Directives For more information, please contact: [phone] * Full Code (Latest Code Status on File) Date Activated Date Inactivated Comments 11/20/2024 5:30 AM 11/21/2024 7:45 PM * Full Code Date Activated Date Inactivated Comments 12/23/2023 7:38 AM 12/24/2023 4:40 PM * Full Code Date Activated Date Inactivated Comments 12/13/2023 11:01 PM 12/15/2023 6:59 PM * Full Code Date Activated Date Inactivated Comments 11/27/2023 8:26 AM 12/03/2023 8:25 PM * Full Code Date Activated Date Inactivated Comments 11/10/2023 1:07 AM 11/25/2023 6:49 PM
--- OUTSIDE RECORDS SUMMARY | 2024-12-24 13:15 | XMS_ITS | Encounter Summary ---
Author Organization [facility] Address [address] [place] [address] Care Team Providers Care Railroad Dispatcher Name Role Phone Jhonny, Tri Shirley DO Primary Care Provider [phone] Encounter Details Date Type Department Care Team (Latest Contact Info) Description 04/06/2004 Outpatient Historical HIS [facility] Felicita Dailey MD [address] [address] HYPOTHYROIDISM NOS (Primary Dx) Social History Tobacco Use Types Packs/Day Years Used Date Smoking Tobacco: Never Assessed Comments Unknown Sex and Gender Information Value Date Recorded Sex Assigned at Not on file Legal Sex Female 6:00 PM REHABILITATION CASEWORKER Gender Identity Not on file Sexual Orientation Not on file documented as of this encounter Plan of Treatment Not on file documented as of this encounter Procedures Procedure Name Priority Date/Time Associated Diagnosis Comments THYROID PEROXIDASE ANTIBODY Routine 04/06/2004 11:26 AM REHABILITATION CASEWORKER T3 FREE Routine 04/06/2004 11:26 AM REHABILITATION CASEWORKER TSH Routine 04/06/2004 11:26 AM REHABILITATION CASEWORKER T4 FREE Routine 04/06/2004 11:26 AM REHABILITATION CASEWORKER documented in this encounter Results * (ABNORMAL) THYROID PEROXIDASE ANTIBODY (04/06/2004 11:26 AM REHABILITATION CASEWORKER) THYROID PEROXIDASE AB >70(H) <2 IU/mL INTERFACE SYSTEM Comment: [facility] test performed [facility]: [facility] [id number] [place] [address] DALY MOY MD 04/06/2004 11:2 6 AM REHABILITATION CASEWORKER us Felicita Plascencia MD CHEMISTRY ORDERABLES Final Result Performing Organization Address City/[facility] Co de Phone Number INTERFACE SYSTEM Refer to clinic/hospital department * TSH (04/06/2004 11:26 AM REHABILITATION CASEWORKER) TSH 3.83 0.27 - 4.20 uU/mL INTERFACE SYSTEM 04/06/2004 11:2 6 AM REHABILITATION CASEWORKER us Felicita Plascencia MD CHEMISTRY ORDERABLES Final Result Performing Organization Address [facility] Phone Number INTERFACE SYSTEM Refer to clinic/hospital department * T3 FREE (04/06/2004 11:26 AM REHABILITATION CASEWORKER) T3 FREE 3.3 2.5 - 4.4 pg/mL INTERFACE SYSTEM 04/06/2004 11:2 6 AM REHABILITATION CASEWORKER us Felicita Plascencia MD CHEMISTRY ORDERABLES Final Result Performing Organization Address [facility] Phone Number INTERFACE SYSTEM Refer to clinic/hospital department * T4 FREE (04/06/2004 11:26 AM REHABILITATION CASEWORKER) T4 FREE 1.6 0.9 - 1.7 ng/dL INTERFACE SYSTEM 04/06/2004 11:2 6 AM REHABILITATION CASEWORKER us Felicita Plascencia MD CHEMISTRY ORDERABLES Final Result Performing Organization Address City/[facility] de Phone Number INTERFACE SYSTEM Refer to clinic/hospital department documented in this encounter Visit Diagnoses Diagnosis Unspecified hypothyroidism- [...] COVID-19 05/20/2024 05/20/2024 05/20/2024 12:4 3 PM REHABILITATION CASEWORKER documented as of this encounter Care Teams Railroad Dispatcher Relationship Specialty Start Date End Date Tri Barry DO PCP - General Family Practice 02/09/21 12/24/22 documented as of this encounter
--- OUTSIDE RECORDS SUMMARY | 2024-12-24 13:15 | XMS_ITS | Encounter Summary ---
Author Organization [facility] Health Address [address] [place] [address] Care Team Providers Care Managing Broker Name Role Phone Unavailable Primary Care Provider Unavailabl e Prior Encounters Date Type Department Care Team Description 04/19/2019 Converted CPS Chart Documents [facility] [id number] [place] [phone] <No scans attached> 04/19/2019 Converted 13x Documents [facility] [address], [place] [address] <No scans attached> Plan of Treatment Not on file Procedures Procedure Name Priority Date/Time Associated Diagnosis Comments 4 CORE BUILDUP, INCLUDING ANY PINS WHEN REQUIRED Routine 11/26/2019 2:00 AM CDT 4 CEMENT CROWN Routine 11/26/2019 2:00 AM CDT 4 ENDODONTIC THERAPY, PREMOLAR TOOTH (EXCLUDING FINAL SPIRITISM) Routine 11/26/2019 2:00 AM CDT 4 CERECFIRED CROWNPOST Routine 0 2:00 AM CDT NC X-RAY Routine 11/26/2019 2:00 AM CDT 4 LIMITED ORAL EVALUATION - PROBLEM FOCUSED Routine 11/15/2019 2:00 AM CDT PANORAMIC RADIOGRAPHIC IMAGE Routine 11/15/2019 2:00 AM CDT BITEWINGS - TWO RADIOGRAPHIC IMAGES Routine 11/15/2019 2:00 AM CDT Visit Diagnoses Not on file
--- OUTSIDE RECORDS SUMMARY | 2024-12-24 13:15 | XMS_ITS | Encounter Summary ---
Author Organization [facility] Address [address] [facility] [place] [address] Care Team Providers Care Assistant Manager Bilingual Name Role Phone Jhonny, Tri Shirley DO Primary Care Provider [phone] Encounter Details Date Type Department Care Team (Latest Contact Info) Description 12/22/2003 Outpatient Historical HIS [facility] Carly Arreguin MD OTHER MALAISE AND FATIGUE (Primary Dx) Social History Tobacco Use Types Packs/Day Years Used Date Smoking Tobacco: Never Assessed Comments Unknown Sex and Gender Information Value Date Recorded Sex Assigned at Not on file Legal Sex Female 6:[address] JUDGE Gender Identity Not on file Sexual Orientation Not on file documented as of this encounter Plan of Treatment Not on file documented as of this encounter Visit Diagnoses Diagnosis Other malaise and fatigue- Primary documented in this encounter Additional Health [...] COVID-19 05/20/2024 05/20/2024 05/20/2024 12:[address] JUDGE documented as of this encounter Care Teams Assistant Manager Bilingual Relationship Specialty Start Date End Date Tri Barry DO PCP - General Family Practice 02/09/21 12/24/22 documented as of this encounter
--- OUTSIDE RECORDS SUMMARY | 2024-12-24 13:15 | XMS_ITS | Clinical Summary ---
Author Organization [facility] Address [address] [place] [address] Care Team Providers Care Manager Case Name Role Phone Arcelia Whitney MIKAYLA-UNEMPLOYMENT CLAIMS ADJUDICATOR Unavailable [phone] Adelaide Tse MD Primary Care Provider Cameron hilton Source Comments [facility],non-owned Affiliates and Associated Physician Practices is amultiple site organization consisting of ambulatory clinics and hospital sitesin [place], [place], [place] and [place]. This disclosure is being madepursuant to the Care Everywhere program and may not contain all information available regarding this patient. Last updated 17.[facility] Allergies Active Allergy Reactions Criticality Noted Date Comments Amoxicillin Urticaria,Rash Medium 06/11/2023 exofin [Other] Rash,Itching Medium Latex Rash Medium 02/11/2012 Medications * Be aware that medications may not be up to date on this document. Alwaysverify current medications with the patient. folic acid (Folvite) 1 MG tablet Take 1 (one) tablet by mouth once daily 025 Active thiamine (Vitamin B-1) 100 MG tablet Take 1 (one) tablet by mouth once daily 025 Active Oxygen Oxygen continuous at 3 L/min via nasal cannula - Estimate length of need (number of months): Lifetime 1 Each 025 Active vitamin D3 (Cholecalciferol) 25 MCG (1000 UNITS) tablet Take 1 (one) tablet by mouth once daily Active lactulose (Chronulac) 10 GM/15ML solutionIndicatio ns:Hepatic Encephalopathy Take 45 mL by mouth 4 times daily Reasons: Impaired Brain Function due to Liver Disease 025 Active rifAXIMin (Xifaxan) 550 MG tablet Take 1 (one) tablet by mouth 2 times daily Active carvedilol (Coreg) 3.125 MG tablet Take 1 (one) tablet by mouth 2 times daily with morning and evening meal Active potassium chloride ER (Klor-Con M) 20 MEQ tablet Take 1 (one) tablet by mouth once 025 Active ondansetron (Zofran) 4 MG tablet Take 1 (one) tablet by mouth every 6 hours as needed for Nausea/Vomiti ng 025 Active spironolactone (Aldactone) 100 MG tablet Take 1.5 (one and one-half) tablets by mouth once daily 45 tablet 025 Active ketoconazole (Nizoral) 2 % cream Apply to affected area 2 times daily 60 g 5 3:39 PM CDT 025 Active ketoconazole (Nizoral) 2 % shampoo Apply to affected area every 3 days 120 mL 5 3:39 PM CDT 025 Active mupirocin (Bactroban) 2 % ointment Apply to affected area 3 times daily 30 g 5 3:39 PM CDT 025 Active tacrolimus (Protopic) 0.1 % ointment Apply to affected area 2 times daily 30 g 5 3:39 PM CDT 025 Active oxyCODONE, immediate release, (Roxicodone) 5 MG tablet Take 1 (one) tablet by mouth every 6 hours as needed for Pain 025 Active bumetanide (Bumex) 2 MG tablet Take 1 (one) tablet by mouth once daily Active levothyroxine (Synthroid) 200 MCG tablet Take 1 (one) tablet by mouth daily before breakfast Active omeprazole (PriLOSEC) 20 MG capsule Take 1 (one) capsule by mouth 2 times daily, before breakfast and supper for 60 days 025 2024 Active omeprazole (PriLOSEC) 20 MG capsule Take 1 (one) capsule by mouth 2 times daily, before breakfast and supper for 60 days 120 capsule 025 2024 Discontinued levothyroxine (Synthroid) 125 MCG tablet Take 1 (one) tablet by mouth once daily 025 2024 Discontinued(L ist Clean-Up) bumetanide (Bumex) 1 MG tabletIndications :Heart Failure Take 1 (one) tablet by mouth once daily Reasons: Cardiac Failure 025 2024 Discontinued(L ist Clean-Up) bumetanide (Bumex) 2 MG tabletIndications :Heart Failure Take 2 (two) tablets by mouth once daily for 30 days Reasons: Cardiac Failure 60 tablet 3:39 PM CDT 025 2024 Discontinued(L ist Clean-Up) Active Problems Problem Noted Date Diagnosed Date Decompensated cirrhosis 12/15/2024 Assessment & Plan (12/16/2024 2:26 PM CDT): MELD 3.0 was 23 at 12/15/2024 5:25 AM MELD-Na was 22 at 12/15/2024 5:25 AM MELD was 18 at 12/15/2024 5:25 AM Age at listing (hypothetical): 54 years Sex: Female - Etiology: alcohol + MASLD - Primary Rn Dialysis: Dr Richmond - HE: known history, on Lactulose 10g QID and Rifaximin 550mg BID - EV: bleed in 10/2023 s/p 6 bands. On carvedilol - Ascites: weekly paracentesis on ; on Spironolactone 100mg + Bumex 4mg QD - SBP: no history per chart review - HCC screening: abdominal US done in 08/17/2024 without HCC; repeat scheduled for January - Transplant: does not have adequate social support, lives at [facility] currently PLAN: - holding home diuretics, coreg 2/2 ALIREZA - plan for LVP today - continue home lactulose, rifaximin Assessment & Plan (12/15/2024 1:23 PM CDT): MELD 3.0 was 23 at 12/15/2024 5:25 AM MELD-Na was 22 at 12/15/2024 5:25 AM MELD was 18 at 12/15/2024 5:25 AM Age at listing (hypothetical): 54 years Sex: Female - Etiology: alcohol + MASLD - Primary Rn Dialysis: Dr Richmond - [facility]: known history, on Lactulose 10g QID and Rifaximin 550mg BID - EV: bleed in 10/2023 s/p 6 bands. On carvedilol - Ascites: weekly paracentesis on ; on Spironolactone 100mg + Bumex 4mg QD - SBP: no history per chart review - HCC screening: abdominal US done in 08/17/2024 without HCC; repeat scheduled for January - Transplant: does not have adequate social support, lives at SNF currently PLAN: - holding home diuretics, coreg 2/2 ALIREZA - plan for LVP today - continue home lactulose, rifaximin Assessment & Plan (12/15/2024 1:17 PM CDT): MELD 3.0 was 22 at 12/13/2024 1:11 PM MELD-Na was 21 at 12/13/2024 1:11 PM MELD was 17 at 12/13/2024 1:11 PM Age at listing (hypothetical): 54 years Sex: Female - Etiology: alcohol + MASLD - Primary Rn Dialysis: Dr Richmond - [facility]: known history, on Lactulose 10g QID and Rifaximin 550mg BID - EV: bleed in 10/2023 s/p 6 bands. On carvedilol - Ascites: weekly paracentesis on ; on Spironolactone 100mg + Bumex 4mg QD - SBP: no history per chart review - HCC screening: abdominal US done in 08/17/2024 without HCC; repeat scheduled for January - Transplant: does not have adequate social support, lives at SNF currently PLAN: - holding home diuretics, coreg 2/2 ALIREZA - plan for LVP in AM - continue home lactulose, rifaximin Asymptomatic bacteriuria 12/15/2024 Assessment & Plan (12/16/2024 7:03 AM CDT): U/A on admission w/ 500 LE, 21-50 WBC Ucx growing Klebsiella Patient asymptomatic, denying dysuria, frequency, hesitancy PLAN: - Holding tx for now - Tx if complaining sx Assessment & Plan (12/15/2024 1:23 PM CDT): U/A on admission w/ 500 LE, 21-50 WBC Ucx growing Klebsiella Patient asymptomatic, denying dysuria, frequency, hesitancy PLAN: - Holding tx for now - Tx if complaining sx SOB (shortness of breath) 12/13/2024 Assessment & Plan (12/16/2024 7:03 AM CDT): Patient on 2 L NC at baseline; CXR w/o large effusion or significant pulmonary edema; no focal consolidations SOB likely 2/2 HPS and exacerbated by recurrent ascites, patient last tapped 12/02 PLAN: - LVP this afternoon - Continue supportive tx w/ oxygen, continuous pulse ox Assessment & Plan (12/15/2024 1:23 PM CDT): Patient on 2 L NC at baseline; CXR w/o large effusion or significant pulmonary edema; no focal consolidations SOB likely 2/2 HPS and exacerbated by recurrent ascites, patient last tapped 12/02 PLAN: - LVP this afternoon - Continue supportive tx w/ oxygen, continuous pulse ox Assessment & Plan (12/14/2024 2:50 PM CDT): Patient on 2 L NC at baseline; CXR w/o large effusion or significant pulmonary edema; no focal consolidations SOB likely 2/2 HPS and exacerbated by recurrent ascites, patient last tapped 12/02 PLAN: - LVP in morning - Continue supportive tx w/ oxygen, continuous pulse ox Assessment & Plan (12/13/2024 5:33 PM CDT): Patient on 2 L NC at baseline; CXR w/o large effusion or significant pulmonary edema; no focal consolidations SOB likely 2/2 HPS and exacerbated by recurrent ascites, patient last tapped 12/02 PLAN: - LVP in morning - Continue supportive tx w/ oxygen, continuous pulse ox Chest pain, unspecified type 12/13/2024 Assessment & Plan (12/16/2024 7:03 AM CDT): Trops negative, EKG NSR CTM Assessment & Plan (12/15/2024 7:49 AM CDT): Trops negative, EKG NSR CTM Assessment & Plan (12/14/2024 2:50 PM CDT): Trops negative, EKG NSR CTM Assessment & Plan (12/13/2024 5:33 PM CDT): Trops negative, EKG NSR CTM Other cirrhosis of liver 12/13/2024 Hepatic encephalopathy 08/06/2024 Mitral valve insufficiency 06/07/2024 Abnormal echocardiogram 06/07/2024 Coagulopathy 06/01/2024 Thrombocytopenia 06/01/2024 Palliative care by specialist 04/01/2024 Macrocytic anemia 03/30/2024 MetALD 02/19/2024 Esophageal varices determined by endoscopy 02/13 TAB positive 02/10/2024 History of alcohol use 08/03/2023 Hepatopulmonary syndrome 08/03/2023 Assessment & Plan (12/14/2024 2:50 PM CDT): Patient on 2 L NC at baseline; CXR w/o large effusion or significant pulmonary edema; no focal consolidations SOB likely 2/2 HPS and exacerbated by recurrent ascites, patient last tapped 12/02 PLAN: - LVP in morning - Continue supportive tx w/ oxygen, continuous pulse ox Assessment & Plan (12/13/2024 5:33 PM CDT): Patient on 2 L NC at baseline; CXR w/o large effusion or significant pulmonary edema; no focal consolidations SOB likely 2/2 HPS and exacerbated by recurrent ascites, patient last tapped 12/02 PLAN: - LVP in morning - Continue supportive tx w/ oxygen, continuous pulse ox Assessment & Plan (11/30/2024 11:41 AM CDT): >>ASSESSMENT AND PLAN FOR HEPATOPULMONARY SYNDROME (HCC) WRITTEN ON 11/30/2024 11:40 AM BY CAIO RICHMOND MD >>ASSESSMENT AND PLAN FOR SHORTNESS OF BREATH WRITTEN ON 10/20/2024 10:19 PM BY LUL YOUNG PA-C MELD 3.0: 20 at 10/20/2024 5:17 PM MELD-Na: 19 at 10/20/2024 5:17 PM Calculated from: Serum Creatinine: 1.11 mg/dL at 10/20/2024 5:17 PM Serum Sodium: 131 mmol/L at 10/20/2024 5:17 PM Total Bilirubin: 1.9 mg/dL at 10/20/2024 5:17 PM Serum Albumin: 2.8 g/dL at 10/20/2024 5:17 PM INR(ratio): 1.5 at 10/20/2024 5:17 PM Age at listing (hypothetical): 54 years Sex: Female at 10/20/2024 5:17 PM - Etiology: alcohol + MASLD - Primary Rn Dialysis: Dr Richmond - HE: known history, on Lactulose 10g QID and Rifaximin 550mg BID - EV: bleed in 10/2023 s/p 6 bands. On carvedilol - Ascites: weekly paracentesis on ; on Spironolactone 25mg + Bumex 4mg QD, was also receiving Lasix 20mg BID at rehab. Diagnostic paracentesis performed in ED, fluid analysis not c/w SBP - SBP: no history per chart review - HCC screening: abdominal US done in 08/17/2024 without HCC - Transplant: does not have adequate social support -home meds: Bumex 1mg QD, Aldactone 100mg QD, Coreg 3.125mg BID, lactulose, rifaximin PLAN: -GI consulted in ED, recs pending -underwent diagnostic paracentesis in ED on 10/20, results pending -f/u fluid cultures from diagnostic paracentesis -will likely need LVP this admission, consult procedure team in morning -will increase Bumex 2mg QD -continue Aldactone 100mg QD, Coreg 3.125mg BID, lactulose, rifaximin -start Protonix 40mg QD >>ASSESSMENT AND PLAN FOR CHRONIC RESPIRATORY FAILURE (HCC) WRITTEN ON 10/20/2024 10:13 PM BY LUL YOUNG PA-C -possibly related to cirrhosis -currently satting on 3.5 L NC (baseline 3L) -no hx of COPD/Asthma PLAN: -continue supplemental oxygen Hypothyroidism, unspecified type 06/11/2023 Assessment & Plan (12/14/2024 2:50 PM CDT): Continue home synthroid 125 mcg Assessment & Plan (12/13/2024 5:33 PM CDT): Continue home synthroid 125 mcg Indirect hyperbilirubinemia 06/11/2023 Cirrhosis of liver with asci shireen, unspecified hepatic cirrhosis type 06/11/2023 Assessment & Plan (11/30/2024 11:00 AM CDT): >>ASSESSMENT AND PLAN FOR CIRRHOSIS OF LIVER WITH ASCITES, UNSPECIFIED HEPATIC CIRRHOSIS TYPE (HCC) WRITTEN ON 11/30/2024 10:58 AM BY CAIO RICHMOND MD >>ASSESSMENT AND PLAN FOR DECOMPENSATED HEPATIC CIRRHOSIS (HCC) WRITTEN ON 10/20/2024 10:19 PM BY LUL YOUNG PA-C MELD 3.0: 20 at 10/20/2024 5:17 PM MELD-Na: 19 at 10/20/2024 5:17 PM Calculated from: Serum Creatinine: 1.11 mg/dL at 10/20/2024 5:17 PM Serum Sodium: 131 mmol/L at 10/20/2024 5:17 PM Total Bilirubin: 1.9 mg/dL at 10/20/2024 5:17 PM Serum Albumin: 2.8 g/dL at 10/20/2024 5:17 PM INR(ratio): 1.5 at 10/20/2024 5:17 PM Age at listing (hypothetical): 54 years Sex: Female at 10/20/2024 5:17 PM - Etiology: alcohol + MASLD - Primary Rn Dialysis: Dr Richmond - [facility]: known history, on Lactulose 10g QID and Rifaximin 550mg BID - EV: bleed in 10/2023 s/p 6 bands. On carvedilol - Ascites: weekly paracentesis on ; on Spironolactone 25mg + Bumex 4mg QD, was also receiving Lasix 20mg BID at rehab. Diagnostic paracentesis performed in ED, fluid analysis not c/w SBP - SBP: no history per chart review - HCC screening: abdominal US done in 08/17/2024 without HCC - Transplant: does not have adequate social support -home meds: Bumex 1mg QD, Aldactone 100mg QD, Coreg 3.125mg BID, lactulose, rifaximin PLAN: -GI consulted in ED, recs pending -underwent diagnostic paracentesis in ED on 10/20, results pending -f/u fluid cultures from diagnostic paracentesis -will likely need LVP this admission, consult procedure team in morning -will increase Bumex 2mg QD -continue Aldactone 100mg QD, Coreg 3.125mg BID, lactulose, rifaximin -start Protonix 40mg QD >>ASSESSMENT AND PLAN FOR ASCITES DUE TO ALCOHOLIC CIRRHOSIS (HCC) WRITTEN ON 10/20/2024 10:19 PM BY LUL YOUNG PA-C MELD 3.0: 20 at 10/20/2024 5:17 PM MELD-Na: 19 at 10/20/2024 5:17 PM Calculated from: Serum Creatinine: 1.11 mg/dL at 10/20/2024 5:17 PM Serum Sodium: 131 mmol/L at 10/20/2024 5:17 PM Total Bilirubin: 1.9 mg/dL at 10/20/2024 5:17 PM Serum Albumin: 2.8 g/dL at 10/20/2024 5:17 PM INR(ratio): 1.5 at 10/20/2024 5:17 PM Age at listing (hypothetical): 54 years Sex: Female at 10/20/2024 5:17 PM - Etiology: alcohol + MASLD - Primary Rn Dialysis: Dr Richmond - [facility]: known history, on Lactulose 10g QID and Rifaximin 550mg BID - EV: bleed in 10/2023 s/p 6 bands. On carvedilol - Ascites: weekly paracentesis on ; on Spironolactone 25mg + Bumex 4mg QD, was also receiving Lasix 20mg BID at rehab. Diagnostic paracentesis performed in ED, fluid analysis not c/w SBP - SBP: no history per chart review - HCC screening: abdominal US done in 08/17/2024 without HCC - Transplant: does not have adequate social support -home meds: Bumex 1mg QD, Aldactone 100mg QD, Coreg 3.125mg BID, lactulose, rifaximin PLAN: -GI consulted in ED, recs pending -underwent diagnostic paracentesis in ED on 10/20, results pending -f/u fluid cultures from diagnostic paracentesis -will likely need LVP this admission, consult procedure team in morning -will increase Bumex 2mg QD -continue Aldactone 100mg QD, Coreg 3.125mg BID, lactulose, rifaximin -start Protonix 40mg QD Vitamin D deficiency 12/18/2010 Overview (12/18/2010): 12-18-2010; Level: 22.2 start ergocalciferol 50,000 IU for 4 weeks then vitamin D 800 IU daily, otc. Assessment & Plan (10/20/2024 10:13 PM CDT): -continue Vit D Depression 11/23/2010 Hypothyroidism 10/20/2009 Overview (09/18/2010): 09-14-2010 TSH, free T4. Normal. Assessment & Plan (10/20/2024 10:13 PM CDT): -continue home levothyroxine 125mcg QD Myalgia 10/20/2009 DDD (degenerative disc disease), lumbosacral Resolved Problems Problem Noted Date Diagnosed Date Resolved Date Dry lips 10/21/2024 11/30/2024 Assessment & Plan (10/21/2024 12:35 AM CDT): -patient reports onset during last admission (10/07-10/14/2024), see media tab -etiology unclear, possible due medications however timeframe does not match (most recently started on rifampin in 07/2024) PLAN: -order topical Vaseline PRN -consider Dermatology consult Facial rash 10/21/2024 11/30/2024 Assessment & Plan (10/21/2024 12:35 AM CDT): -patient reports onset during last admission (10/07-10/14/2024), see media tab -etiology unclear, possible due medications however timeframe does not match (most recently started on rifampin in 07/2024) PLAN: -order topical Vaseline PRN -consider Dermatology consult Other disorders of electroly te and fluid balance, not elsewhere classified 09/21/20242024 Leg edema, left 09/17/2024 11/30/2024 Altered mental status, unspe cified altered mental status type 08/06/2024 11/30/2024 Hypokalemia 03/30/2024 11/30/2024 Normocytic anemia 02/15/2024 11/30/2024 Hyponatremia 02/14/2024 11/30/2024 Cellulitis, unspecified cellulitis site 01/23/2024 11/30/2024 Fluid retention 01/23/2024 11/30/2024 Acute respiratory failure with hypoxia 01/09/2024 11/30/2024 Liver failure without hepati c coma, unspecified chronicity 09/03/2023 11/30/2024 Shortness of breath 08/18/2023 02/19/20 24 Anasarca 08/18/2023 11/30/2024 Abdominal pain, generalized 08/03/2023 11/30/2024 Lower extremity edema 08/03/20232024 Ascites due to alcoholic hepatitis 08/03/2023 11/30/2024 Swelling 06/11/2023 11/30/2024 Left shoulder pain 04/13/2018 Edema 09/07/2012 11/30/2024 Overview (09/10/2012): 09-07-2012: labs are stable. No infection, bnp is normal, lft stable, cmp normal. 09-10-2012: echo: normal. Thumb pain 12/11/2011 11/30/2024 Overview (12/12/2011): 12-12-2011; Right thumb xray: small well corticated accessory ossicle at the interphalangeal joint of the thumb the joint spaces in the thumb are preserved with no spur formation. Normal variant. To Dr. Mahoney if nsaids do not help. ([facility], put in for scanning). Vitamin B12 deficiency 12/18/201011/30 Overview (12/18/2010): 12-18-2010; Level: 220. Get B12 1000mcg and take daily. Mass of neck 09/14/2010 11/30/2024 Overview (09/19/2010): Labs normal, lft stable, elevated in the past. US of neck done today. 09-19-2010 US of neck shows probable lymph node, to Dr. Dominguez/Miriam. Abdominal pain 10/20/2009 11/30/2024 Hypothyroid 08/20/2010 Encounters Date Type Department Care Team Description 12/13/2024 11:51 AM CDT - 12/15/2024 5:33 PM CDT Hospital Encounter [facility] 7[facility] ACUTE [address] [place] [address] Kadi Ruiz MD Yogendran, Rajiv L, MD Agbim, Uchenna A, MD Gastroenterology Discharge Disposition: [facility] or Supportive Care 12/13/2024 11:00 AM CDT - 12/13/2024 11:15 AM CDT Surgery [facility] ENDOSCOPY [address] [place] [address] Eden Caro PA-C PARACENTESIS ABDOMEN (PERCUTANEOUS) 12/13/2024 10:54 AM CDT - 12/13/2024 11:25 AM CDT Hospital Encounter [facility] ENDOSCOPY [address] [place] [address] Eden Caro PA-C Surgery General Discharge Disposition: Still a Patient 12/12/2024 6:42 PM CDT - 12/12/2024 8:37 PM CDT Emergency ER at [address] [address] Chantale Flores DO Chest pain, unspecified type Discharge Disposition: Home or Self Care 12/12/2024 Travel 12/06/2024 1:30 PM CDT Office Visit [facility] - Pulmonology [address] [place] [address] Jake Grijalva MD Hepatopulmonary syndrome (HCC) (Primary Dx); Decompensated hepatic cirrhosis (HCC); MetALD; Ascites due to alcoholic cirrhosis (HCC); Esophageal varices determined by endoscopy (HCC); [place]UMBO (dyspnea on exertion); Hypoxia; Chronic respiratory failure with hypoxia (HCC) 12/06/2024 Travel 12/02/2024 10:23 AM CDT - 12/02/2024 12:36 PM CDT Hospital Encounter [facility] [address] [place] [address] Eden Caro PA-C Surgery General Discharge Disposition: Home or Self Care 12/02/2024 8:25 AM CDT - 12/02/2024 8:40 AM CDT Surgery [facility] ENDOSCOPY [address] [place] [address] Eden Caro PA-C PARACENTESIS ABDOMEN (PERCUTANEOUS) 12/02/2024 Travel 11/30/2024 10:30 AM CDT Office Visit [facility] - GI [address] [facility] [place] [address] Caio Richmond MD Cirrhosis of liver with ascites, unspecified hepatic cirrhosis type (HCC) (Primary Dx); Other ascites; Secondary esophageal varices without bleeding (HCC); Encounter for screening for other viral diseases; Hepatopulmonary syndrome (HCC) 11/30/2024 Travel 11/25/2024 11:00 AM CDT - 11/25/2024 11:15 AM CDT Surgery [facility] ENDOSCOPY [address] [place] [address] Eden Caro PA-C PARACENTESIS ABDOMEN (PERCUTANEOUS) 11/25/2024 10:46 AM CDT - 11/25/2024 1:30 PM CDT Hospital Encounter [facility] [address] [place] [address] Eden Caro PA-C Surgery General Discharge Disposition: Half-Way Facility 11/25/2024 Travel 11/11/2024 11:00 AM CDT - 11/11/2024 11:15 AM CDT Surgery [facility] ENDOSCOPY [address] [place] [address] Eden Caro PA-C PARACENTESIS ABDOMEN (PERCUTANEOUS) 11/11/2024 10:06 AM CDT - 11/11/2024 1:31 PM CDT Hospital Encounter [facility] [address] [place] [address] Eden Caro PA-C Surgery General Discharge Disposition: Half-Way Facility 11/11/2024 Travel 11/05/2024 11:53 AM CDT Anesthesia Event [facility] ENDOSCOPY [address] [place] [phone] Jamie Méndez MD Dobbs, Kristin L, [employer] SALES [employer]OCIATE-[employer]IAISON 11/05/2024 10:30 AM CDT - 11/05/2024 11:00 AM CDT Surgery [facility] ENDOSCOPY [address] [place] [phone] Caio Richmond MD EGD w/ sandra 11/05/2024 9:02 AM CDT - 11/05/2024 1:31 PM CDT Hospital Encounter [facility] [address] [place] [phone] Caio Richmond MD Surgery General Discharge Disposition: Home or Self Care 11/04/2024 8:58 AM CDT - 11/04/2024 11:28 AM CDT Hospital Encounter [facility] [address] [place] [phone] Eden Caro PA-C Surgery General Discharge Disposition: Home or Self Care 11/04/2024 8:10 AM CDT - 11/04/2024 8:25 AM CDT Surgery [facility] ENDOSCOPY [address] [place] [phone] Eden Caro PA-C PARACENTESIS ABDOMEN (PERCUTANEOUS) 11/04/2024 Telephone [facility] - GI [address] [facility] [place] [address] Dori Price, RN General 11/04/2024 Patient Outreach [facility] ENDOSCOPY [address] [place] [phone] Lorri Luu, JAYESH Pre-op Instructions 11/04/2024 Travel 10/28/2024 8:18 AM CDT - 10/28/2024 10:49 AM CDT Hospital Encounter [facility] [address] [place] [phone] Eden Caro PA-C Surgery General Discharge Disposition: Home or Self Care 10/28/2024 7:55 AM CDT - 10/28/2024 8:10 AM CDT Surgery [facility] ENDOSCOPY [address] [place] [phone] Luis Lopez MD PARACENTESIS ABDOMEN (PERCUTANEOUS) 10/28/2024 Travel 10/21/2024 Patient Outreach [facility] ENDOSCOPY [address] [place] [phone] Glenys Cain RN 10/20/2024 4:37 PM CDT - 10/22/2024 8:00 PM CDT Hospital Encounter [facility] [address] [place] [address] Faisal Rodriguez MD Schrader, MD Serg Connors Aman, MD Hospitalist Discharge Disposition: [facility] or Supportive Care 10/20/2024 Travel 10/20/2024 Patient Outreach [facility] ENDOSCOPY [address] [place] [phone] Dina Powers, JAYESH 10/07/2024 9:08 PM CDT - 10/14/2024 6:46 PM CDT Hospital Encounter [facility] [address] ACUTE [address] [place] [phone] Sandra Camarillo MD SynIngrid MD Agbim, Uchenna A, MD Gastroenterology Discharge Disposition: Half-Way Facility 10/07/2024 Travel 09/30/2024 11:00 AM CDT - 09/30/2024 11:15 AM CDT Surgery [facility] ENDOSCOPY [address] [place] [address] Eden Caro PA-C PARACENTESIS ABDOMEN (PERCUTANEOUS) 09/30/2024 10:54 AM CDT - 09/30/2024 2:09 PM CDT Hospital Encounter [facility] [address] [place] [address] Eden Caro PA-C Surgery General Discharge Disposition: Half-Way Facility 09/30/2024 Travel 09/17/2024 7:50 PM CDT - 09/24/2024 6:45 PM CDT Hospital Encounter [facility] - Med Surg/Oncology [address] [place] [address] Bandar Baltazar DO Nnonyelu, Chibueze E, MD Cagle, Jonathan S, MD Haider, Taimoor, MD Berihun, Eyob, MD Hospitalist Discharge Disposition: Nursing Facility:Medicaid from Last 3 Months Immunizations Immunization Administration Dates Next Due TDAP (7yrs+) 09/29/2009 [facility] 12/11/2011 Family History Medical History Relation Name Comments Cirrhosis Brother Other Brother anthrax Thyroid Disease Brother Thyroid Disease Maternal Aunt hypothyroid ism Thyroid Disease Maternal Grandmother Cancer Mother kidney cancer Cirrhosis Mother Thyroid Disease Mother Other Sister Graves Disease Relation Name Status Comments Brother Father Alive Maternal Aunt Alive Maternal Grandmother Mother Sister Alive Social History Tobacco Use Types Packs/Day Years Used Date Smoking Tobacco: Former Cigarettes 0.5 27.5 0 04/30/1996 - 11/05/2023 Smokeless Tobacco: Never Alcohol Use Standard Drinks/Week Comments Not Currently 0 (1 standard drink = 0.6 oz pur e alcohol) last drink October 2023 OASIS D0700: Social Isolation Answer Da te Recorded Frequency of experiencing loneliness or isolatio n Never 06/29/2024 OASIS A1250: Transportation Answer Date Recorded Lack of Transportation (Medical) No 06/29/2024 Lack of Transportation (Non-Medical) No 06/29/2024 Patient Unable or Declines to Respond No 06/29/2024 OASIS B1300: Health Literacy Answer Dale e Recorded Frequency of needing help to read materials from doctor or pharmacy Sometimes 06/29/2024 AUDIT-C Answer Date Recorded Q1: How often do you have a drink containing alcohol? Never 12/14/2024 Q2: How many drinks containi ng alcohol do you have on a typical day when you are drinking? Patient does not drink Q3: How often do you have si x or more drinks on one occasion? Never 12/14/2024 Overall Financial Resource Strain (CARDIA) Answe r Date Recorded How hard is it for you to pa y for the very basics like food, housing, medical care, and heating? Not hard at all 12/14/2024 PHQ-2 Answer Date Recorded Patient Health Questionnaire-2 Score 0 07/02/2024 [facility] - Occupational Stress Questionnaire Answer Date Recorded Do you feel stress - tense, restless, nervous, or anxious, or unable to sleep at night because your mind is troubled all the time - these days? Only a little 12/14/2024 Hunger Vital Sign Answer Date Recorded Within the past 12 months, y ou worried that your food would run out before you got the money to buy more. Never true 12/15/19 25 Within the past 12 months, t he food you bought just didn't last and you didn't have money to get more. Never true 12/14/2024 PRAPARE - Transportation Answer Date Re corded In the past 12 months, has l ack of transportation kept you from medical appointments or from getting medications? No 11/29 In the past 12 months, has l ack of transportation kept you from meetings, work, or from getting things needed for daily living? No 12/14/2024 Housing Stability Vital Sign Answer Dale e Recorded In the last 12 months, was t here a time when you were not able to pay the mortgage or rent on time? Yes 01/08/2024 In the last 12 months, how many places have you lived? 2 01/08/2024 In the last 12 months, was t here a time when you did not have a steady place to sleep or slept in a residential (including now)? No 01/08/2024 Housing Stability Vital Sign Answer Dale e Recorded In the last 12 months, was t here a time when you were not able to pay the mortgage or rent on time? No 12/14/2024 In the past 12 months, how m any times have you moved where you were living? 0 12/14/2024 At any time in the past 12 m [facility], were you homeless or living in a residential (including now)? No 12/14/2024 Comments No Sex and Gender Information Value Date Recorded Sex Assigned at Not on file Legal Sex Female 5:09 AM CLIMBING GUIDE Gender Identity Not on file Sexual Orientation Not on file Last Filed Vital Signs Vital Sign Reading Time Taken Comments Blood Pressure 122/63 12/15/2024 3:38 PM CDT Pulse 97 12/15/2024 3:38 PM CDT Temperature 36.9 C (98.5 F) 12/15/2024 3:38 PM CDT Respiratory Rate 19 12/15/2024 11:44 AM CDT Oxygen Saturation 95% 12/15/2024 3:38 PM CDT Inhaled Oxygen Concentration - - Weight 92.5 kg (204 lb) 12/15/2024 6:02 AM CDT Height 170.2 cm (5' 7) 12/14/2024 6:00 PM CDT Body Mass Index 31.95 12/14/2024 6:00 PM CDT Plan of Treatment Upcoming Encounters Date Type Department Care Team (Late st Contact Info) Description 01/11/2025 9:50 AM CDT Office Visit [facility] - Dermatology [address] [place] [address], [place] [address] Jarrell Ulrich MD [address] [place] [address] OF [facility] [address] Peter Dominguez MD [facility] [place] [phone] 02/03/2025 12:40 PM CLIMBING GUIDE Appointment [facility] [place] [phone] Caio Richmond MD [address] [place] [phone] 03/28/2025 3:00 PM CLIMBING GUIDE Office Visit [facility] - Pulmonology [address] [facility], [place] [phone] Jake Grijalva MD [address] [place] [address] [address] DIV OF [facility] [address] 05/31/2025 10:30 AM CLIMBING GUIDE Office Visit [facility] - GI [address] [place] [address], [place] [phone] Caio Richmond MD [address] [place] [phone] Health Maintenance Due Date Last Done Comments COLOGUARD (AGES 45-75) - COLON CA SCREENING 1970 COLON MONITORING 1970 COLONOSCOPY - COLON CA SCREENING 1970 CT COLONOGRAPHY - COLON CA SCREENING 1970 FLEX SIG - COLON CA SCREENING 1970 HEPATITIS B VACCINE (1 of 3 - 19+ 3-dose series) 1989 PNEUMOCOCCAL VACCINE 50+ (1 of 2 - PCV) 1989 PAP with HPV 02/22/2000 DIABETES-STATIN 2010 DIABETES RETINOPATHY SCREENING 12/11/2011 DIABETES-FOOT EXAM WITH MONOFILAMENT 12/11/2011 MAMMOGRAM 06/22/2015 06/21/2013 Colorectal Cancer Screening 12/08/2015 FIT - COLON CA SCREENING 12/08/2015 12/07/2014 DTAP/TDAP/TD VACCINES (2 - Td or Tdap) 09/30/2019 09/29/2009 ZOSTER VACCINE (1 of 2) 02/22/2020 DIABETES - URINE PROTEIN SCREENING 03/31/2024 DIABETES-HGB A1C 11/14/2024 05/17/2024, , 05/01/2009 COVID-19 VACCINE (1 - season) 2024 INFLUENZA VACCINE (#1) 2024 DIABETES-SERUM CREATININE 12/15/20252024, 12/14/2024, 12/13/2024, Additional history exists HIV SCREENING Completed 06/19/2021 HEPATITIS C SCREENING Completed 06/11/2023, 010 DEPRESSION SCREENING Completed 05/17/2024 HIB VACCINE Aged Out No longer eligi ble based on patient's age to complete this topic HPV VACCINE Aged Out No longer eligi ble based on patient's age to complete this topic MENINGOCOCCAL (Group B) VACCINE SHARED DECISION-MAKING Aged Out No longer eligible based on patient's age to complete this topic MENINGOCOCCAL GROUPS A/C/Y/W VACCINE Aged Out No longer eligible based on patient's age to complete this topic Goals Goal Patient Goal Type Associated Problems Recent Progress Patient-Stated? Author Medication Management General On track( 10:51 AM CDT) No Sherry Schwartz, RN Note: Expected end date: ongoing Interventions: Take all medications as prescribed Let your doctor know right away about any changes in your medications Make sure to request a refill of your medication at least one week prior to your last dose Safety General On track( 10:51 AM CDT) No Geovanna Ocampo, RN Note: Expected end date: ongoing Interventions: Your nurse will assess your risk for falls/injury each visit Use appropriate and safe transfer methods Make sure appropriate safety devices are available and within reach Review the fall prevention instruction sheet given to you during your visit Be aware of medications that could predispose you to falling Wear non-skid/rubber sole footwear Wear glasses/hearing aid Keep personal items within easy reach Use some light at night in your room Keep walking paths clutter free and clear Maintain an unobstructed path to the bathroom Procedures Procedure Name Priority Date/Time Associated Diagnosis Comments CULTURE FLUID+GRAM STAIN STAT 12/15/2024 2:49 PM CDT Decompensated cirrhosis (HCC) CULTURE ANAEROBE STAT 12/15/2024 2:45 PM CDT Decompensated cirrhosis (HCC) DIFFERENTIAL MANUAL FLUID STAT 12/15/2024 2:44 PM CDT Decompensated cirrhosis (HCC) CELL COUNT W DIFFERENTIAL FLUID STAT 12/15/2024 2:44 PM CDT Decompensated cirrhosis (HCC) PT-INR AM Draw 12/15/2024 5:25 AM CDT Other cirrhosis of liver (HCC) COMPREHENSIVE METABOLIC PANEL Routine 12/15/2024 5:25 AM CDT Other cirrhosis of liver (HCC) CBC W AUTO DIFFERENTIAL AM Draw 12/15/2024 5:25 AM CDT Other cirrhosis of liver (HCC) PHOSPHORUS BLOOD Routine 12/15/2024 5:25 AM CDT Other cirrhosis of liver (HCC) MAGNESIUM BLOOD Routine 12/15/2024 5:25 AM CDT Other cirrhosis of liver (HCC) CARDIAC EKG ORDER 12/14/2024 3:1 7 PM CDT CARDIAC EKG ORDER 12/14/2024 2:2 0 PM CDT PT-INR STAT 12/14/2024 11:12 AM CDT Other cirrhosis of liver (HCC) COMPREHENSIVE METABOLIC PANEL STAT 12/14/2024 11:12 AM CDT Other cirrhosis of liver (HCC) CBC W AUTO DIFFERENTIAL STAT 12/14/2024 11:12 AM CDT Other cirrhosis of liver (HCC) ND ABD PARACENTESIS W/IMAGING 12/13/2024 7:00 PM CDT Other ascites URINALYSIS REFLEX MICROSCOPIC REFLEX CULTURE STAT 12/13/2024 6:38 PM CDT Acute kidney injury CREATININE URINE RANDOM STAT 12/13/2024 6:38 PM CDT Acute kidney injury UREA NITROGEN URINE RANDOM STAT 12/13/2024 6:38 PM CDT Acute kidney injury LYTES (NA K CL) URINE RANDOM PANEL STAT 12/13/2024 6:38 PM CDT Acute kidney injury CULTURE URINE STAT 12/13/2024 6:38 PM CDT Acute kidney injury CT ANGIO CHEST PULM EMBOLISM STAT 12/13/2024 5:32 PM CDT SOB (shortness of breath) VAS LEFT VENOUS DUPLEX LE STAT 12/13/2024 3:23 PM CDT SOB (shortness of breath) TROPONIN-I HIGH SENSITIVE REFLEX 1HOUR Timed 12/13/2024 2:21 PM CDT PT-INR STAT 12/13/2024 1:11 PM CDT TROPONIN-I HIGH SENSITIVE BASELINE + 1HR STAT 12/13/2024 1:11 PM CDT MAGNESIUM BLOOD STAT 12/13/2024 1:11 PM CDT COMPREHENSIVE METABOLIC PANEL STAT 12/13/2024 1:11 PM CDT CBC W AUTO DIFFERENTIAL STAT 12/13/2024 1:11 PM CDT XR CHEST 2VW STAT 12/13/2024 12:52 PM CDT Chest pain, unspecified type SOB (shortness of breath) EKG 12-LEAD STAT 12/13/2024 12:44 PM CDT Chest pain, unspecified type SOB (shortness of breath) XR CHEST 1VW PORTABLE STAT 12/12/2024 7:00 PM CDT Chest pain, unspecified type B-TYPE NATRIURETIC PEPTIDE STAT 12/12/2024 6:51 PM CDT CBC W AUTO DIFFERENTIAL STAT 12/12/2024 6:51 PM CDT COMPREHENSIVE METABOLIC PANEL STAT 12/12/2024 6:51 PM CDT TROPONIN-I HIGH SENSITIVE BASELINE + 1HR STAT 12/12/2024 6:51 PM CDT EKG 12-LEAD STAT 12/12/2024 6:45 PM CDT Chest pain, unspecified type LARGE VOLUME PARACENTESIS Routine 12/02/2024 2:13 PM CDT Other ascites Portal hypertension (HCC) Cirrhosis of liver with ascites, unspecified hepatic cirrhosis type (HCC) HEPATITIS A ANTIBODY Routine 12/02/2024 11:32 AM CDT Other ascites Portal hypertension (HCC) Cirrhosis of liver with ascites, unspecified hepatic cirrhosis type (HCC) PROBRAIN NATRIURETIC PEPTIDE N TERMINAL Routine 12/02/2024 11:32 AM CDT Other ascites Portal hypertension (HCC) Cirrhosis of liver with ascites, unspecified hepatic cirrhosis type (HCC) PT-INR Routine 12/02/2024 11:32 AM CDT Other ascites Portal hypertension (HCC) Cirrhosis of liver with ascites, unspecified hepatic cirrhosis type (HCC) CBC W AUTO DIFFERENTIAL STAT 12/02/2024 11:32 AM CDT Other ascites Portal hypertension (HCC) Cirrhosis of liver with ascites, unspecified hepatic cirrhosis type (HCC) BASIC METABOLIC PANEL (CALCIUM TOTAL) STAT 12/02/2024 11:32 AM CDT Other ascites Portal hypertension (HCC) Cirrhosis of liver with ascites, unspecified hepatic cirrhosis type (HCC) HEPATIC FUNCTION PANEL STAT 12/02/2024 11:32 AM CDT Other ascites Portal hypertension (HCC) Cirrhosis of liver with ascites, unspecified hepatic cirrhosis type (HCC) DIFFERENTIAL MANUAL FLUID STAT 12/02/2024 11:07 AM CDT Other ascites Portal hypertension (HCC) Cirrhosis of liver with ascites, unspecified hepatic cirrhosis type (HCC) ALBUMIN BODY FLUID Routine 12/02/2024 11:07 AM CDT Other ascites Portal hypertension (HCC) Cirrhosis of liver with ascites, unspecified hepatic cirrhosis type (HCC) PROTEIN BODY FLUID Routine 12/02/2024 11:07 AM CDT Other ascites Portal hypertension (HCC) Cirrhosis of liver with ascites, unspecified hepatic cirrhosis type (HCC) CELL COUNT W DIFFERENTIAL FLUID STAT 12/02/2024 11:07 AM CDT Other ascites Portal hypertension (HCC) Cirrhosis of liver with ascites, unspecified hepatic cirrhosis type (HCC) CULTURE FLUID+GRAM STAIN STAT 12/02/2024 11:06 AM CDT Other ascites Portal hypertension (HCC) Cirrhosis of liver with ascites, unspecified hepatic cirrhosis type (HCC) ND ABD PARACENTESIS W/IMAGING 12/02/2024 10:55 AM CDT Other ascites Special Needs Message Received: Today Fish Sidhu, JAYESH Cain, Glenys Tam RN She would like to come back next Dec 02 in the 8 oclock hour. Thank you! Received Date Received Time Nov 25, 2024 1:09 PM LARGE VOLUME PARACENTESIS Routine 11/25/2024 1:34 PM CDT Other ascites Portal hypertension (HCC) Cirrhosis of liver with ascites, unspecified hepatic cirrhosis type (HCC) DIFFERENTIAL MANUAL FLUID STAT 11/25/2024 11:41 AM CDT Other ascites Portal hypertension (HCC) Cirrhosis of liver with ascites, unspecified hepatic cirrhosis type (HCC) CELL COUNT W DIFFERENTIAL FLUID STAT 11/25/2024 11:41 AM CDT Other ascites Portal hypertension (HCC) Cirrhosis of liver with ascites, unspecified hepatic cirrhosis type (HCC) CULTURE FLUID+GRAM STAIN STAT 11/25/2024 11:41 AM CDT Other ascites Portal hypertension (HCC) Cirrhosis of liver with ascites, unspecified hepatic cirrhosis type (HCC) ND ABD PARACENTESIS W/IMAGING 11/25/2024 10:58 AM CDT Other ascites LARGE VOLUME PARACENTESIS Routine 11/11/2024 12:43 PM CDT Other ascites Portal hypertension (HCC) Cirrhosis of liver with ascites, unspecified hepatic cirrhosis type (HCC) DIFFERENTIAL MANUAL FLUID STAT 11/11/2024 11:54 AM CDT Other ascites Portal hypertension (HCC) Cirrhosis of liver with ascites, unspecified hepatic cirrhosis type (HCC) CELL COUNT W DIFFERENTIAL FLUID STAT 11/11/2024 11:54 AM CDT Other ascites Portal hypertension (HCC) Cirrhosis of liver with ascites, unspecified hepatic cirrhosis type (HCC) CULTURE FLUID+GRAM STAIN STAT 11/11/2024 11:54 AM CDT Other ascites Portal hypertension (HCC) Cirrhosis of liver with ascites, unspecified hepatic cirrhosis type (HCC) ND ABD PARACENTESIS W/IMAGING 11/11/2024 11:31 AM CDT Other ascites EGD Routine 11/05/2024 11:51 AM CDT ND ED EGD FLEX TRANSORAL DX 11/05/2024 11:48 AM CDT Esophageal varices without bleeding, unspecified esophageal varices type (HCC) Special Needs Message Received: Today Caio Richmond MD P [facility] Sched[facility]ers - Endoscopy Pool Please set up this patient for EGD with me in 2-3 months. Received Date Received Time Jul 02, 2024 12:39 PM LARGE VOLUME PARACENTESIS Routine 11/04/2024 1:14 PM CDT Other ascites Portal hypertension (HCC) Other cirrhosis of liver (HCC) DIFFERENTIAL MANUAL FLUID STAT 11/04/2024 10:22 AM CDT Other ascites Portal hypertension (HCC) Other cirrhosis of liver (HCC) CELL COUNT W DIFFERENTIAL FLUID STAT 11/04/2024 10:22 AM CDT Other ascites Portal hypertension (HCC) Other cirrhosis of liver (HCC) CULTURE FLUID+GRAM STAIN STAT 11/04/2024 10:22 AM CDT Other ascites Portal hypertension (HCC) Other cirrhosis of liver (HCC) PT-INR Routine 11/04/2024 9:55 AM CDT Other ascites Portal hypertension (HCC) Other cirrhosis of liver (HCC) CBC W AUTO DIFFERENTIAL STAT 11/04/2024 9:55 AM CDT Other ascites Portal hypertension (HCC) Other cirrhosis of liver (HCC) COMPREHENSIVE METABOLIC PANEL STAT 11/04/2024 9:55 AM CDT Other ascites Portal hypertension (HCC) Other cirrhosis of liver (HCC) ND ABD PARACENTESIS W/IMAGING 11/04/2024 9:11 AM CDT Other ascites LARGE VOLUME PARACENTESIS Routine 10/28/2024 9:42 AM CDT DIFFERENTIAL MANUAL FLUID Routine 10/28/2024 9:36 AM CDT Other cirrhosis of liver (HCC) CELL COUNT W DIFFERENTIAL FLUID Routine 10/28/2024 9:36 AM CDT Other cirrhosis of liver (HCC) CULTURE FLUID+GRAM STAIN STAT 10/28/2024 9:36 AM CDT Other cirrhosis of liver (HCC) ND ABD PARACENTESIS W/IMAGING 10/28/2024 8:40 AM CDT Other ascites BASIC METABOLIC PANEL (CALCIUM TOTAL) STAT 10/22/2024 8:36 AM CDT Hypokalemia ZINC BLOOD Routine 10/21/2024 5:19 PM CDT Lip ulcer VITAMIN B6 Routine 10/21/2024 5:19 PM CDT Lip ulcer NIACIN (VITAMIN B3) Routine 10/21/2024 5 :19 PM CDT Lip ulcer FOLATE Routine 10/21/2024 5:19 PM CDT Lip ulcer VITAMIN C Routine 10/21/2024 5:19 PM CDT Lip ulcer VITAMIN B12 Routine 10/21/2024 5:19 PM CDT Lip ulcer VITAMIN B1 Routine 10/21/2024 5:19 PM CDT Lip ulcer IRON + TRANSFERRIN PANEL Routine 10/21/2024 5:19 PM CDT Lip ulcer HERPES SIMPLEX 1+2 PCR LESION Routine 10/21/2024 11:12 AM CDT Facial rash CULTURE FUNGUS OTHER+FUNGUS SMEAR Routine 10/21/2024 11:12 AM CDT Facial rash CULTURE WOUND+GRAM STAIN Routine 10/21/2024 11:12 AM CDT Facial rash PHOSPHORUS BLOOD Routine 10/21/2024 6:34 AM CDT Ascites due to alcoholic cirrhosis (HCC) CBC W/O DIFFERENTIAL AM Draw 10/21/2024 6:34 AM CDT Ascites due to alcoholic cirrhosis (HCC) MAGNESIUM BLOOD Routine 10/21/2024 6:34 AM CDT Ascites due to alcoholic cirrhosis (HCC) COMPREHENSIVE METABOLIC PANEL AM Draw 10/21/2024 6:34 AM CDT Ascites due to alcoholic cirrhosis (HCC) CULTURE FLUID+GRAM STAIN STAT 10/20/2024 10:08 PM CDT Ascites due to alcoholic cirrhosis (HCC) DIFFERENTIAL MANUAL FLUID STAT 10/20/2024 10:07 PM CDT Ascites due to alcoholic cirrhosis (HCC) CELL COUNT W DIFFERENTIAL FLUID STAT 10/20/2024 10:07 PM CDT Ascites due to alcoholic cirrhosis (HCC) ED PARACENTESIS Routine 10/20/2024 9:20 PM CDT TROPONIN-I HIGH SENSITIVE STAT 10/20/2024 7:04 PM CDT XR CHEST 1VW PORTABLE STAT 10/20/2024 6:16 PM CDT SOB (shortness of breath) PTT STAT 10/20/2024 5:17 PM CDT PT-INR STAT 10/20/2024 5:17 PM CDT COMPREHENSIVE METABOLIC PANEL STAT 10/20/2024 5:17 PM CDT CBC W AUTO DIFFERENTIAL STAT 10/20/2024 5:17 PM CDT EKG 12-LEAD STAT 10/20/2024 4:55 PM CDT SOB (shortness of breath) PH BODY FLUID ([facility] ONLY) Routine 10/14/2024 3:42 PM CDT LDH BODY FLUID Routine 10/14/2024 3:42 PM CDT BILIRUBIN BODY FLUID Routine 10/14/2024 3:42 PM CDT PROTEIN BODY FLUID Routine 10/14/2024 3: 42 PM CDT ALBUMIN BODY FLUID Routine 10/14/2024 3: 42 PM CDT DIFFERENTIAL MANUAL FLUID Routine 10/14/2024 11:43 AM CDT CELL COUNT W DIFFERENTIAL FLUID Routine 10/14/2024 11:43 AM CDT CULTURE FLUID+GRAM STAIN Routine 10/14/2024 11:43 AM CDT PT-INR AM Draw 10/14/2024 2:53 AM CDT Other ascites Abdominal pain, generalized COMPREHENSIVE METABOLIC PANEL AM Draw 10/14/2024 2:53 AM CDT Other ascites Abdominal pain, generalized CBC W AUTO DIFFERENTIAL AM Draw 10/14/2024 2:53 AM CDT Other ascites Abdominal pain, generalized MAGNESIUM BLOOD AM Draw 10/14/2024 2:53 AM CDT Other ascites Abdominal pain, generalized PHOSPHORUS BLOOD AM Draw 10/14/2024 2:53 AM CDT Other ascites Abdominal pain, generalized PT-INR AM Draw 10/13/2024 2:11 AM CDT Other ascites Abdominal pain, generalized COMPREHENSIVE METABOLIC PANEL AM Draw 10/13/2024 2:11 AM CDT Other ascites Abdominal pain, generalized CBC W AUTO DIFFERENTIAL AM Draw 10/13/2024 2:11 AM CDT Other ascites Abdominal pain, generalized MAGNESIUM BLOOD AM Draw 10/13/2024 2:11 AM CDT Other ascites Abdominal pain, generalized PHOSPHORUS BLOOD AM Draw 10/13/2024 2:11 AM CDT Other ascites Abdominal pain, generalized PT-INR AM Draw 10/12/2024 3:51 AM CDT Other ascites Abdominal pain, generalized COMPREHENSIVE METABOLIC PANEL AM Draw 10/12/2024 3:51 AM CDT Other ascites Abdominal pain, generalized CBC W AUTO DIFFERENTIAL AM Draw 10/12/2024 3:51 AM CDT Other ascites Abdominal pain, generalized MAGNESIUM BLOOD AM Draw 10/12/2024 3:51 AM CDT Other ascites Abdominal pain, generalized PHOSPHORUS BLOOD AM Draw 10/12/2024 3:51 AM CDT Other ascites Abdominal pain, generalized PT-INR AM Draw 10/11/2024 3:11 AM CDT Other ascites Abdominal pain, generalized COMPREHENSIVE METABOLIC PANEL AM Draw 10/11/2024 3:11 AM CDT Other ascites Abdominal pain, generalized CBC W AUTO DIFFERENTIAL AM Draw 10/11/2024 3:11 AM CDT Other ascites Abdominal pain, generalized MAGNESIUM BLOOD AM Draw 10/11/2024 3:11 AM CDT Other ascites Abdominal pain, generalized PHOSPHORUS BLOOD AM Draw 10/11/2024 3:11 AM CDT Other ascites Abdominal pain, generalized BLOOD GASES JACKSON + COOX PANEL Routine 10/10/2024 10:19 AM CDT PT-INR AM Draw 10/10/2024 2:35 AM CDT Other ascites Abdominal pain, generalized COMPREHENSIVE METABOLIC PANEL AM Draw 10/10/2024 2:35 AM CDT Other ascites Abdominal pain, generalized CBC W AUTO DIFFERENTIAL AM Draw 10/10/2024 2:35 AM CDT Other ascites Abdominal pain, generalized MAGNESIUM BLOOD AM Draw 10/10/2024 2:35 AM CDT Other ascites Abdominal pain, generalized PHOSPHORUS BLOOD AM Draw 10/10/2024 2:35 AM CDT Other ascites Abdominal pain, generalized PT-INR AM Draw 10/09/2024 2:52 AM CDT Other ascites Abdominal pain, generalized COMPREHENSIVE METABOLIC PANEL AM Draw 10/09/2024 2:52 AM CDT Other ascites Abdominal pain, generalized CBC W AUTO DIFFERENTIAL AM Draw 10/09/2024 2:52 AM CDT Other ascites Abdominal pain, generalized MAGNESIUM BLOOD AM Draw 10/09/2024 2:52 AM CDT Other ascites Abdominal pain, generalized PHOSPHORUS BLOOD AM Draw 10/09/2024 2:52 AM CDT Other ascites Abdominal pain, generalized CARDIAC EKG ORDER 10/08/2024 12:55 PM CDT CULTURE ANAEROBE STAT 10/08/2024 3:15 AM CDT CULTURE FLUID+GRAM STAIN STAT 10/08/2024 3:15 AM CDT DIFFERENTIAL MANUAL FLUID STAT 10/08/2024 3:14 AM CDT CELL COUNT W DIFFERENTIAL FLUID STAT 10/08/2024 3:14 AM CDT TSH REFLEX FREE T4 STAT 10/08/2024 2: 36 AM CDT TROPONIN-I HIGH SENSITIVE REFLEX 1HOUR Timed 10/07/2024 8:14 PM CDT TROPONIN-I HIGH SENSITIVE BASELINE + 1HR STAT 10/07/2024 5:56 PM CDT PT-INR STAT 10/07/2024 5:56 PM CDT MAGNESIUM BLOOD STAT 10/07/2024 5:56 PM CDT PHOSPHORUS BLOOD STAT 10/07/2024 5:56 PM CDT COMPREHENSIVE METABOLIC PANEL STAT 10/07/2024 5:56 PM CDT CBC W AUTO DIFFERENTIAL STAT 10/07/2024 5:56 PM CDT EKG 12-LEAD STAT 10/07/2024 5:03 PM CDT SOB (shortness of breath) XR CHEST 2VW STAT 10/07/2024 4:58 PM CDT SOB (shortness of breath) LARGE VOLUME PARACENTESIS Routine 09/30/2024 3:34 PM CDT Other ascites Portal hypertension (HCC) Other cirrhosis of liver (HCC) DIFFERENTIAL MANUAL FLUID STAT 09/30/2024 12:37 PM CDT Other ascites Portal hypertension (HCC) Other cirrhosis of liver (HCC) CELL COUNT W DIFFERENTIAL FLUID STAT 09/30/2024 12:37 PM CDT Other ascites Portal hypertension (HCC) Other cirrhosis of liver (HCC) CULTURE FLUID+GRAM STAIN STAT 09/30/2024 12:37 PM CDT Other ascites Portal hypertension (HCC) Other cirrhosis of liver (HCC) ND ABD PARACENTESIS W/IMAGING 09/30/2024 11:48 AM CDT S/P abdominal paracentesis VAS LEFT VENOUS DUPLEX LE Routine 09/24/2024 10:46 AM CDT Leg edema, left US PARACENTESIS Routine 09/23/2024 3:53 PM CDT Ascites due to alcoholic cirrhosis (HCC) COMPREHENSIVE METABOLIC PANEL AM Draw 09/23/2024 5:43 AM CDT CBC W/O DIFFERENTIAL AM Draw 09/23/2024 5:43 AM CDT HEMOGLOBIN A1C Routine 05/17/2024 12:29 PM CLIMBING GUIDE Hospital discharge follow-up HEPATITIS SCREEN ACUTE STAT 06/11/2023 11:38 PM CDT Jaundice HIV-1 HIV-2 ANTIBODY + HIV P24 AG PANEL STAT 06/19/2021 4:27 PM CDT from Last 3 Months or Most Recently Relevant to Health Maintenance Results * CULTURE FLUID+GRAM STAIN (12/15/2024 2:49 PM CDT) Only the most recent of10 resultswithin the time period is included. Culture No growth ARIANA 12/21/2024 2:08 PM CDT [facility] Gram Stain Rare Polymorphonuclear cells 12/21/2024 2:08 PM CDT [facility] [facility] Gram Stain No organisms seen 025 2:08 PM CDT [facility] Other PERITONEAL FLUID / Unknown Collection / Unknown 12/15/2024 2:49 PM CDT 12/15/2024 2:53 PM CDT Caio Richmond MD LAB - MICROBIOLOGY ORDERABLES Final Result Performing Organization Address City/[facility]/ZIP Co de Phone Number [facility] MICROBIOLOGY [address] [place] [address], [facility] [phone] * CULTURE ANAEROBE (12/15/2024 2:45 PM CDT) Only the most recent of2 resultswithin the time period is included. Culture No anaerobic organisms isolated ARIANA 12/20/2024 8:34 AM CDT [facility] MICROBIOLOGY Microbiology PERITONEAL FLUID / Unknown Collection / Unknown 12/15/2024 2:45 PM CDT 12/15/2024 2:53 PM CDT Caio Richmond MD LAB - MICROBIOLOGY ORDERABLES Final Result Performing Organization Address [facility] Phone Number [facility] [address] [facility] [place] [address], [facility] [phone] * DIFFERENTIAL MANUAL FLUID (12/15/2024 2:44 PM CDT) Only the most recent of10 resultswithin the time period is included. Fluid Source Peritoneal 12/15/2024 3:37 PM CDT [facility] Body Fluid Total Cell Count 200 x10E6/L 12/15/2024 3:37 PM CDT [facility] Neutrophils Fluid Percent 2 % 12/15/2024 3:37 PM CDT [facility] Lymphocytes Fluid Percent 62 % 12/15/2024 3:37 PM CDT [facility] Macrophages Fluid Percent 35 % 12/15/2024 3:37 PM CDT [facility] Mesothelial Cells Fluid Percent 1 % 12/15/2024 3:37 PM CDT [facility] Fluid PERITONEAL FLUID / Unknown Collection / Unknown 12/15/2024 2:44 PM CDT 12/15/2024 2:53 PM CDT Narrative [facility] - 12/15/2024 3:37 PM CDT No reference ranges established for body fluid differential cell counts. The test results must be integrated into the clinical context for interpretation. Caio Richmond MD LAB - BODY FLUID ORDERABLES F inal Result Performing Organization Address [facility] Co de Phone Number [address] [address], [facility] [phone] * CELL COUNT W DIFFERENTIAL FLUID (12/15/2024 2:44 PM CDT) Only the most recent of10 resultswithin the time period is included. Fluid Source Peritoneal 12/15/2024 3:38 PM CDT [facility] Fluid Appearance CLEAR 12/15/2024 3:38 PM CDT [facility] Fluid Color YELLOW 12/15/2024 3:38 PM CDT [facility] Total Nucleated Cells Fluid 79 Reference Range Not Established x10E6/L 12/15/2024 3:38 PM CDT [facility] RBC Count Fluid <2,000 Reference Range Not Established x10E6/L 12/15/2024 3:38 PM CDT [facility] Fluid PERITONEAL FLUID / Unknown Collection / Unknown 12/15/2024 2:44 PM CDT 12/15/2024 2:53 PM CDT Narrative [facility] - 12/15/2024 3:38 PM CDT No reference ranges established for body fluid cell counts. Any reference ranges provided are derived from published literature. The test results must be integrated into the clinical context for interpretation. Caio Richmond MD LAB - BODY FLUID ORDERABLES F inal Result Performing Organization Address [facility] Co de Phone Number [address] [address], [facility] [phone] * (ABNORMAL) PT-INR (12/15/2024 5:25 AM CDT) Only the most recent of13 resultswithin the time period is included. PT 17.5(H) 12.1 - 14.8 Seconds 12/15/2024 6:00 AM CDT [facility] INR 1.5 See Comment 12/15/2024 6:00 AM [facility] Comment:The suggested therap eutic range for standard coumadin (warfarin) therapy is an INR of 2.0-3.0. For high-risk patients (Mechanical Mitral Valve Prosthesis, etc.), the suggested prophylactic therapeutic range is an INR of 2.5-3.5. Blood BLOOD SPECIMEN / Unknown Lab Venipuncture / Unknown 12/15/2024 5:25 AM CDT 12/15/2024 5:34 AM CDT us Caio Richmond MD LAB - COAGULATION ORDERABLES Final Result [facility] [address] [place] [address], [facility] [phone] * (ABNORMAL) CBC W AUTO DIFFERENTIAL (12/15/2024 5:25 AM CDT) Only the most recent of14 resultswithin the time period is included. WBC 4.7 4.0 - 10.7 x10E9/L 12/15/2024 5:40 AM [facility] RBC Count 3.14(L) 3.90 - 5.20 x10E12/L 12/15/2024 5:40 AM [facility] Hemoglobin 10.2(L) 11.9 - 15.8 g/dL 12/15/2024 5:40 AM [facility] Hematocrit 31.2(L) 34.8 - 46.1 % 12/15/2024 5:40 AM [facility] MCV 99.4(H) 80.0 - 98.0 fL 12/15/2024 5:40 AM [facility] MCH 32.5 26.7 - 33.6 pg 12/15/2024 5:40 AM [facility] MCHC 32.7 31.7 - 36.3 g/dL 12/15/2024 5:40 AM [facility] RDW-CV 16.6(H) 11.3 - 14.8 % 12/15/2024 5:40 AM [facility] Platelet Count 80(L) 150 - 420 x10E9/L 12/15/2024 5:40 AM [facility] MPV 10.3 7.8 - 11.4 fL 12/15/2024 5:40 AM [facility] Neutrophil % 56.9 41.0 - 74.0 % 12/15/2024 5:40 AM [facility] Lymphocyte % 23.9 17.0 - 47.0 % 12/15/2024 5:40 AM [facility] Monocyte % 13.8(H) 3.0 - 11.0 % 12/15/2024 5:40 AM [facility] Eosinophil % 3.9 0.0 - 7.0 % 12/15/2024 5:40 AM [facility] Basophil % 1.1 0.0 - 1.6 % 12/15/2024 5:40 AM [facility] Immature Granulocytes % 0.4 0.0 - 1.0 % 12/15/2024 5:40 AM [facility] Neutrophil Absolute 2.65 1.60 - 7.50 x10E9/L 12/15/2024 5:40 AM [facility] Lymphocyte Absolute 1.11 1.00 - 4.40 x10E9/L 12/15/2024 5:40 AM [facility] Monocyte Absolute 0.64 0.15 - 1.00 x10E9/L 12/15/2024 5:40 AM [facility] Eosinophil Absolute 0.18 0.00 - 0.60 x10E9/L 12/15/2024 5:40 AM [facility] Basophil Absolute 0.05 0.00 - 0.13 x10E9/L 12/15/2024 5:40 AM [facility] Blood BLOOD SPECIMEN / Unknown Lab Venipuncture / Unknown 12/15/2024 5:25 AM CDT 12/15/2024 5:34 AM T us Caio Richmond MD LAB - HEMATOLOGY ORDERABLES F inal Result [facility] [address] [place] [address] [phone] * (ABNORMAL) COMPREHENSIVE METABOLIC PANEL (12/15/2024 5:25 AM [facility]) Only the most recent of15 resultswithin the time period is included. BUN 22 7 - 26 mg/dL 12/15/2024 6:04 AM [facility] Creatinine 1.18(H) 0.56 - 0.96 mg/dL 12/15/2024 6:04 AM [facility] Sodium 132(L) 136 - 145 mmol/L 12/15/2024 6:04 AM [facility] Potassium 4.2 3.5 - 4.5 mmol/L 12/15/2024 6:04 AM [facility] Chloride 104 98 - 107 mmol/L 12/15/2024 6:04 AM [facility] CO2 22 22 - 29 mmol/L 12/15/2024 6:04 AM [facility] Glucose 102(H) 70 - 99 mg/dL 12/15/2024 6:04 AM [facility] Calcium 8.4 8.4 - 10.2 mg/dL 12/15/2024 6:04 AM [facility] Protein Total 6.0 6.0 - 8.3 g/dL 12/15/2024 6:04 AM [facility] Albumin 2.7(L) 3.4 - 5.0 g/dL 12/15/2024 6:04 AM [facility] Bilirubin Total 3.8(H) 0.2 - 1.2 mg/dL 12/15/2024 6:04 AM [facility] Alkaline Phosphatase 106 40 - 150 U/L 12/15/2024 6:04 AM [facility] ALT 19 5 - 55 U/L 12/15/2024 6:04 AM [facility] AST 32 5 - 34 U/L 12/15/2024 6:04 AM [facility] Anion Gap 6 6 - 16 12/15/2024 6:04 AM [facility] BUN/Creatinine Ratio 19 7 - 23 12/15/2024 6:04 AM [facility] Osmolality Calculated 278 275 - 295 mOsm/kg 12/15/2024 6:04 AM T [facility] Albumin/Globulin Ratio 0.8(L) 1.1 - 2.3 12/15/2024 6:04 AM T [facility] eGFR by CKD-EPI 55(L) >=90 mL/min/1.7 3 m2 12/15/2024 6:04 AM T [facility] Comment:Estimated Glomerular Filtration Rate (eGFR) calculated using the CKD-EPI Creatinine Equation (2020), per the National Kidney Foundation and [place] [employer] recommendations. Blood BLOOD SPECIMEN / Unknown Lab Venipuncture / Unknown 12/15/2024 5:25 AM CDT 12/15/2024 5:34 AM CDT Caio Richmond MD LAB - CHEMISTRY ORDERABLES Fi nal Result Performing Organization Address City/[facility]/ZIP Co de Phone Number [address] [address], [facility] [phone] * PHOSPHORUS BLOOD (12/15/2024 5:25 AM CDT) Only the most recent of9 resultswithin the time period is included. Phosphorus 3.4 2.9 - 5.1 mg/dL 12/15/2024 6:04 AM T [facility] Blood BLOOD SPECIMEN / Unknown Lab Venipuncture / Unknown 12/15/2024 5:25 AM CDT 12/15/2024 5:34 AM CDT Caio Richmond MD LAB - CHEMISTRY ORDERABLES Fi nal Result [address] [address], [facility] [phone] * MAGNESIUM BLOOD (12/15/2024 5:25 AM CDT) Only the most recent of10 resultswithin the time period is included. Magnesium 2.3 1.6 - 2.6 mg/dL 12/15/2024 6:04 AM T [facility] Blood BLOOD SPECIMEN / Unknown Lab Venipuncture / Unknown 12/15/2024 5:25 AM CDT 12/15/2024 5:34 AM CDT us Caio Richmond MD LAB - CHEMISTRY ORDERABLES Fi nal Result [facility] [address] [place] [address], [facility] [phone] * CARDIAC EKG ORDER (12/14/2024 3:17 PM CDT) Only the most recent of3 resultswithin the time period is included. Narrative 12/14/2024 3:17 PM CDT Ordered by an unspecified provider. us Scanned Document CARDIAC SERVICES ORDERABLES Fin al Result * (ABNORMAL) URINALYSIS REFLEX MICROSCOPIC REFLEX CULTURE (12/13/2024 6:38 PM CDT) Color UA Yellow Yellow, Straw 12/13/2024 7:00 PM [facility] Clarity UA Clear Clear 12/13/2024 7:00 PM [facility] Glucose UA Normal Normal 12/13/2024 7:00 PM [facility] Bilirubin UA Negative Negative 12/13/2024 7:00 PM [facility] Ketone UA Negative Negative 12/13/2024 7:00 PM [facility] Specific [place] UA 1.024 1.005 - 1.030 12/13/2024 7:00 PM [facility] Blood UA Negative Negative 12/13/2024 7:00 PM [facility] pH UA 6.5 5.0 - 8.0 12/13/2024 7:00 PM [facility] Protein UA Negative Negative 12/13/2024 7:00 PM [facility] Urobilinogen UA Normal Normal mg/dL 12/13/2024 7:00 PM [facility] Nitrite UA Negative Negative 12/13/2024 7:00 PM [facility] Leukocyte Esterase UA 500 ELODIA/uL(A) Negative 12/13/2024 7:00 PM [facility] RBC UA 0-2 0 - 5 # /hpf 12/13/2024 7:00 PM CDT [facility] WBC UA 21-50(A) 0 - 5 # /hpf 12/13/2024 7:00 PM CDT [facility] Bacteria UA None Seen None Seen 12/13/2024 7:00 PM CDT [facility] Squamous Epithelial Cells 0-2 0 - 5 /hpf 12/13/2024 7:00 PM CDT [facility] Reflex Status Culture to follow 12/13/2024 7:00 PM CDT [facility] Urine URINE SPECIMEN OBTAINED BY CLEAN CATCH PROCEDURE / Unknown Collection / Unknown 12/13/2024 6:38 PM CDT 12/13/2024 6:41 PM CDT Kadi Ruiz MD LAB - URINALYSIS ORDERABLES Fi nal Result [address] [address], [facility] [phone] * (ABNORMAL) CULTURE URINE (12/13/2024 6:38 PM CDT) Culture Urine >100,000 CFU/mL Klebsiella pneumoniae extended-spect rum beta-lactamase (ESBL)(A) ARIANA 12/16/2024 12:18 AM CDT [facility] MICROBIOLOGY Comment:Isolate is multi brady g resistant organism (MDRO). Urine URINE SPECIMEN OBTAINED BY CLEAN CATCH PROCEDURE / Unknown Collection / Unknown 12/13/2024 6:38 PM CDT 12/13/2024 6:41 PM CDT Narrative [facility] MICROBIOLOG[facility] - 12/16/2024 12:18 AM CDT Contact Precautions Required. This isolate is a multidrug resistant organism (MDRO). MDROs are resistant to 3 or more classes of antibiotics. Contact Precautions required. Infectious Diseases consult recommended. Organism Antibiotic Method Susceptibility Klebsiella pneumoniae extended-spectrum beta-lactamase (ESBL) Amikacin ARIANA <=2 ug/mL: Susceptible Klebsiella pneumoniae extended-spectrum beta-lactamase (ESBL) Ampicillin-sulbactam ARIANA >=32 ug/mL: Resistant Klebsiella pneumoniae extended-spectrum beta-lactamase (ESBL) Cefazolin ARIANA >=64 ug/mL: Resistant Klebsiella pneumoniae extended-spectrum beta-lactamase (ESBL) Cefazolin-Urine (uncomplicated infections ONLY) ARIANA >=64 ug/mL: Resistant Klebsiella pneumoniae extended-spectrum beta-lactamase (ESBL) Cefepime ARIANA <=1 ug/mL: Susceptible Klebsiella pneumoniae extended-spectrum beta-lactamase (ESBL) Ceftriaxone ARIANA >=64 ug/mL: Resistant Klebsiella pneumoniae extended-spectrum beta-lactamase (ESBL) Ciprofloxacin ARIANA >=4 ug/mL: Resistant Klebsiella pneumoniae extended-spectrum beta-lactamase (ESBL) Extended-Spectrum Beta-Lactamase ARIANA POS ug/mL: Pos Klebsiella pneumoniae extended-spectrum beta-lactamase (ESBL) Gentamicin ARIANA <=1 ug/mL: Susceptible Klebsiella pneumoniae extended-spectrum beta-lactamase (ESBL) Meropenem ARIANA <=0.25 ug/mL: Susceptible Klebsiella pneumoniae extended-spectrum beta-lactamase (ESBL) Nitrofurantoin ARIANA 128 ug/mL: Resistant Klebsiella pneumoniae extended-spectrum beta-lactamase (ESBL) Piperacillin-tazobactam ARIANA <=4 ug/mL: Susceptible Klebsiella pneumoniae extended-spectrum beta-lactamase (ESBL) Tobramycin ARIANA 8 ug/mL: Resistant Klebsiella pneumoniae extended-spectrum beta-lactamase (ESBL) Trimethoprim-sulfamethoxaz ole ARIANA >=320 ug/mL: Resistant Comment: Extended-spectrum beta-lactamase (ESBL) producing organism. Beta-lactam/beta-lactamase inhibitor combinations may not be effective for treatment of bloodstream infections and other severe infections regardless of in vitro susceptibility testing results. Infectious Disease consult recommended. Contact precautions required. Urine breakpoints for cefazolin should only be used when treating uncomplicated UTIs including men and women without urologic abnormality, kidney stones, stents, nephrostomy tubes, signs/symptoms of systemic illness, or pelvic/perineal pain in men. Cefazolin results can be used to predict susceptibility to oral cephalosporins - cephalexin, cefprozil, cefaclor, cefuroxime, cefdinir, and cefpodoxime. For complicated UTIs, use alternative cefazolin susceptibility result above. Kadi Ruiz MD LAB - MICROBIOLOGY ORDERABLES Final Result [facility] [address] [place] [address], [facility] [phone] * UREA NITROGEN URINE RANDOM (12/13/2024 6:38 PM CDT) Urea Nitrogen Random Urine 253 Not Established mg/dL 12/13/2024 7:08 PM CDT [facility] Urine URINE SPECIMEN OBTAINED BY CLEAN CATCH PROCEDURE / Unknown Collection / Unknown 12/13/2024 6:38 PM CDT 12/13/2024 6:41 PM CDT Kadi Ruiz MD LAB - URINE CHEMISTRY ORDERABL ES Final Result [address] [address], [place] [phone] * LYTES (NA K CL) URINE RANDOM PANEL (12/13/2024 6:38 PM CDT) Sodium Urine 60 Not Established mmol/L 12/13/2024 7:08 PM CDT [facility] Potassium Urine 48.9 Not Established mmol/L 12/13/2024 7:08 PM CDT [facility] Chloride Random Urine 82 Not Established mmol/L 12/13/2024 7:08 PM CDT [facility] Urine URINE SPECIMEN OBTAINED BY CLEAN CATCH PROCEDURE / Unknown Collection / Unknown 12/13/2024 6:38 PM CDT 12/13/2024 6:41 PM CDT Kadi Ruiz MD LAB - URINE CHEMISTRY ORDERABL ES Final Result [address] [address], [place] [phone] * CREATININE URINE RANDOM (12/13/2024 6:38 PM CDT) Creatinine Urine 33.12 Not Established mg/dL 12/13/2024 7:08 PM CDT [facility] Urine URINE SPECIMEN OBTAINED BY CLEAN CATCH PROCEDURE / Unknown Collection / Unknown 12/13/2024 6:38 PM CDT 12/13/2024 6:41 PM CDT us Kadi Ruiz MD LAB - URINE CHEMISTRY ORDERABL ES Final Result [facility] [address] [place] [address], [facility] [phone] * CT Angio Chest Pulm Embolism (12/13/2024 5:32 PM CDT) Anatomical Region Laterality Modality Chest Computed Tomogra phy 12/13/2024 5:55 PM CDT Impressions 12/13/2024 9:05 PM CDT Impression: 1.No evidence of acute pulmonary embolism. 2.Hepatic cirrhosis with sequela of portal hypertension including moderate volume ascites. > Dictated by Brii Su MD > Dictated by Brii Su MD 12/13/2024 5:55 PM > Dictated by [facility] Registered Nurse IKike MD have personally reviewed and interpreted this examination/study. > Interpreting Provider: Kike Eduardo MD on 12/13/2024 9:05 PM Narrative 12/13/2024 9:05 PM CDT PROCEDURE: CT ANGIO CHEST PULM EMBOLISM, DATE/TIME OF EXAM: 12/13/2024 5:32 PM, LOCATION [facility] INDICATION: R06.02: SOB (shortness of breath) ADDITIONAL CLINICAL INFORMATION: Ordering Provider Reason For Exam: r/o PE Technologist Note: Additional: COMPARISON: CT chest pulmonary embolism protocol from 09/17/2024 TECHNIQUE: CT of the chest was performed following the uneventful administration of 75 mL of Isovue 370 intravenous contrast according to a pulmonary embolism protocol. Multiplanar reconstructions were created. Findings: Study Quality This examination for the diagnosis of pulmonary embolism is adequate. Pulmonary Arteries: No evidence of acute pulmonary embolism. Thoracic Vasculature: No vascular abnormality is present. Lower Neck and Axillae: Normal. Lungs: Atelectasis along the right upper lobe fissure and in the dependent portions of the lungs. Scarring/atelectasis within the right lung apex. No suspicious pulmonary nodules are identified. No pleural fluid or pneumothorax is present. Heart and Pericardium: The cardiac chambers are normal in size. No pericardial fluid or thickening is present. Mediastinum and Kalli: No enlarged lymph nodes are present. Bones and Chest Wall: Bone windows demonstrate no suspicious lytic or blastic lesions. The visible osseous structures are intact. Degenerative changes are seen in the spine. Upper Abdomen: Small hiatal hernia. Gallbladder is surgically absent. Nodular liver surface consistent with a hepatic cirrhosis. Partially imaged moderate volume ascites. Left superior pole renal milk of calcium cyst. Procedure Note Mariposa Eduardo MD - 12/13/2024 PROCEDURE: CT ANGIO CHEST PULM EMBOLISM, DATE/TIME OF EXAM: 12/13/2024 5:32 PM, LOCATION [facility] INDICATION: R06.02: SOB (shortness of breath) ADDITIONAL CLINICAL INFORMATION: Ordering Provider Reason For Exam: r/o PE Technologist Note: Additional: COMPARISON: CT chest pulmonary embolism protocol from 09/17/2024 TECHNIQUE: CT of the chest was performed following the uneventful administration of 75 mL of Isovue 370 intravenous contrast according toa pulmonary embolism protocol. Multiplanar reconstructions were created. Findings: Study Quality This examination for the diagnosis of pulmonary embolism is adequate. Pulmonary Arteries: No evidence of acute pulmonary embolism. Thoracic Vasculature: No vascular abnormality is present. Lower Neck and Axillae: Normal. Lungs: Atelectasis along the right upper lobe fissure and in the dependent portions of the lungs. Scarring/atelectasis within the right lung apex.No suspicious pulmonary nodules are identified. No pleural fluid or pneumothorax is present. Heart and Pericardium: The cardiac chambers are normal in size. No pericardial fluid orthickening is present. Mediastinum and Kalli: No enlarged lymph nodes are present. Bones and Chest Wall: Bone windows demonstrate no suspicious lytic or blastic lesions. The visible osseous structures are intact. Degenerative changes are seen inthe spine. Upper Abdomen: Small hiatal hernia. Gallbladder is surgically absent. Nodular liver surface consistent with a hepatic cirrhosis. Partially imaged moderate volume ascites. Left superior pole renal milk of calcium cyst. Impression: 1.No evidence of acute pulmonary embolism. 2.Hepatic cirrhosis with sequela of portal hypertension includingmoderate volume ascites. > Dictated by Brii Su MD > Dictated by Brii Su MD 12/13/2024 5:55 PM > Dictated by [facility] Registered Nurse IKike MD have personally reviewed and interpreted this examination/study. > Interpreting Provider: Kike Eduardo MD on 12/13/2024 9:05 [address] Ruiz MD [address] ORDERABLES Final Result * VAS Left Venous Duplex Le (12/13/2024 3:23 PM CDT) Only the most recent of2 resultswithin the time period is included. Anatomical Region Laterality Modality Lower Extremity, Upper Extremity Ultrasound 12/13/2024 1:58 PM CDT Narrative Procedure Note Dominguez Hoffman MD - 12/14/2024 Kadi Ruiz MD VASCULAR LAB ORDERABLES Edited Result - Final * TROPONIN-I HIGH SENSITIVE REFLEX 1HOUR (12/13/2024 2:21 PM CDT) Only the most recent of2 resultswithin the time period is included. Troponin I High Sensitive <3 <=14 ng/L 12/13/2024 3:08 PM CDT [facility] Delta Troponin I HS 12/13/2024 3:08 PM CDT [facility] Comment:Result exceeds linea rity range. A delta value is unable to be calculated. Blood BLOOD SPECIMEN / Unknown Venipuncture / Unknown 12/13/2024 2:21 PM CDT 12/13/2024 2:36 PM CDT Mendy Harmon PA-C LAB - CHEMISTRY ORDERABLES Patricia l Result Performing Organization Address City/State/[facility] Co de Phone Number [facility] [address] [place] [address], [facility] [phone] * TROPONIN-I HIGH SENSITIVE BASELINE + 1HR (12/13/2024 1:11 PM CDT) Only the most recent of3 resultswithin the time period is included. Troponin I High Sensitive <3 <=14 ng/L 12/13/2024 1:50 PM CDT [facility] Blood BLOOD SPECIMEN / Unknown Venipuncture / Unknown 12/13/2024 1:11 PM CDT 12/13/2024 1:17 PM CDT Mendy Harmon PA-C LAB - CHEMISTRY ORDERABLES Patricia l Result [facility] [address] [place] [address], [facility] [phone] * XR CHEST 2VW (12/13/2024 12:52 PM CDT) Only the most recent of2 resultswithin the time period is included. Anatomical Region Laterality Modality Chest Digital Radiogra phy 12/13/2024 2:01 PM CDT Impressions 12/13/2024 2:05 PM CDT IMPRESSION: No acute pulmonary process. > Interpreting Provider: Rosalie Boles MD on 12/13/2024 2:05 PM Narrative 12/13/2024 2:05 PM CDT PROCEDURE: XR CHEST 2VW DATE/TIME OF EXAM: 12/13/2024 12:52 PM CLINICAL INFORMATION: Indication: R07.9: Chest pain, unspecified type R06.02: SOB (shortness of breath) Additional History: Rule out effusion and cardiomegaly COMPARISON: Portable chest 10/20/2024 and 12/12/2024. FINDINGS: There is no pulmonary consolidation, pleural effusion, or pneumothorax. The heart size and mediastinal contours are normal. There is no acute osseous abnormality. Procedure Note Rosalie Boles MD - 12/13/2024 PROCEDURE: XR CHEST 2VW DATE/TIME OF EXAM: 12/13/2024 12:52 PM CLINICAL INFORMATION: Indication: R07.9: Chest pain, unspecified type R06.02: SOB (shortness of breath) Additional History: Rule out effusion and cardiomegaly COMPARISON: Portable chest 10/20/2024 and 12/12/2024. FINDINGS: There is no pulmonary consolidation, pleural effusion, or pneumothorax.The heart size and mediastinal contours are normal. There is no acuteosseous abnormality. IMPRESSION: No acute pulmonary process. > Interpreting Provider: Rosalie Boles MD on 12/13/2024 2:05 PM Mendy Harmon PA-C DIAGNOSTIC IMAGING ORDERABLES F inal Result * EKG 12-LEAD (12/13/2024 12:44 PM CDT) Only the most recent of4 resultswithin the time period is included. Ventricular Rate 74 BPM [facility] Atrial Rate 74 BPM [facility] P-R Interval 194 ms [facility] QRS Duration ms 118 ms [facility] Q-T Interval ms 420 ms [facility] QTC Calculation (Bezet) 466 ms [facility] Calculated P [place] 54 degrees [facility] Calculated R [place] -53 degrees [facility] MUSE Calculated T [place] 61 degrees [facility] MUSE Interpretation EKG NORMAL SINUS RHYTHM LEFT ANTERIOR FASCICULAR BLOCK MINIMAL VOLTAGE CRITERIA FOR LVH, MAY BE NORMAL VARIANT ( [place] product ) ABNORMAL ECG WHEN COMPARED WITH ECG OF 20-OCT-2024 16:55, NO SIGNIFICANT CHANGE WAS FOUND Confirmed by LENIN HUERTA, COBY ([id number]) on 12/14/2024 8:22:25 AM [facility] MUSE 12/13/2024 12:4 4 PM CDT 12/14/2024 8:22 AM CDT Mendy Harmon PA-C ECG ORDERABLES Edited Result - Final [facility] MUSE * XR Chest 1Vw Portable (12/12/2024 7:00 PM CDT) Only the most recent of2 resultswithin the time period is included. Anatomical Region Laterality Modality Chest Radiographic Louise ging 12/12/2024 8:42 PM CDT Impressions 12/12/2024 8:43 PM CDT IMPRESSION: No acute cardiopulmonary abnormalities. > Interpreting Provider: Mayte Prieto MD on 12/12/2024 8:43 PM Narrative 12/12/2024 8:43 PM CDT PROCEDURE: XR CHEST 1VW PORTABLE DATE/TIME OF EXAM: 12/12/2024 7:00 PM CLINICAL INFORMATION: None relevant/not provided if blank. Indication: R07.9: Chest pain, unspecified type Additional History: COMPARISON: 10/20/2024 FINDINGS: Single frontal view of the chest demonstrates unchanged size and contour of the cardiomediastinal silhouette. No focal consolidation, pleural effusion or pneumothorax. No acute osseous abnormalities. Procedure Note Mayte Prieto MD - 12/12/2024 PROCEDURE: XR CHEST 1VW PORTABLE DATE/TIME OF EXAM: 12/12/2024 7:00 PM CLINICAL INFORMATION: None relevant/not provided if blank. Indication: R07.9: Chest pain, unspecified type Additional History: COMPARISON: 10/20/2024 FINDINGS: Single frontal view of the chest demonstrates unchanged size and contourof the cardiomediastinal silhouette. No focal consolidation, pleuraleffusion or pneumothorax. No acute osseous abnormalities. IMPRESSION: No acute cardiopulmonary abnormalities. > Interpreting Provider: Mayte Prieto MD on 12/12/2024 8:43 PM Chantale Flores DO DIAGNOSTIC IMAGING ORDERA BLES Final Result * B-TYPE NATRIURETIC PEPTIDE (12/12/2024 6:51 PM CDT) Pathologist [facility] BNP 38 <=100 pg/mL 12/12/2024 7:40 PM CDT [facility] Blood BLOOD SPECIMEN / Unknown 12/12/2024 6:51 PM CDT 12/12/2024 7:16 PM CDT Chantale Flores DO LAB - CHEMISTRY ORDERABLE S Final Result [facility] [address] [place], [place] [id number] * Large Volume Paracentesis (12/02/2024 2:13 PM CDT) Pathologist [facility] Report Endoscopy POC Endoscopy Department Report _ Patient Name: Nasreen Maguire Procedure Date: 12/02/2024 2:13 PM Date of : 1970 Classification: Outpatient Gender: Female Ethnicity: Not or Race: White _ Providers: Eden Caro PA-C, Yousif Paz Referring MD: Procedure: Paracentesis (Repeat) Indications: Ascites, Ascites shown on ultrasound, Diagnostic to rule out peritonitis, Cirrhosis, Cirrhosis (Alcoholic), Portal hypertension Medications: 1% Lidocaine 10 mL SubQ Description of Procedure: After obtaining informed consent, the procedure was performed. Throughout the procedure, the patient's blood pressure, pulse, and oxygen saturations were monitored continuously. The paracentesis was accomplished without difficulty. The patient tolerated the procedure well. Findings: Prior to the procedure, the abdomen was examined and demonstrated moderate distention with ascites and a fluid wave to be present. With the patient in a supine with head elevated position, the procedure site was sterilely prepped using chloroprep and draped in the usual fashion. 10 mL of 1% lidocaine was infiltrated into the skin and subcutaneous tissues. Using a left lower quadrant approach, a small stab incision was made with a disposable blade and a 5 inch 12 gauge paracentesis needle and cannula system was inserted into the peritoneal cavity under ultrasound guidance. Aspiration demonstrated no blood and good return of peritoneal fluid. One pass was made. The trocar was then removed leaving the catheter in place. 4.3 liters of clear, yellow fluid was withdrawn using a vacuum bottle. Fluid was sent for cell count and differential and culture and sensitivities. The incision site was closed with exofin and tegaderm. Estimated Blood Loss: Estimated blood loss: none. Complications: No immediate complications. Impression: - Paracentesis successfully performed. - Test results pending. Recommendation: - Discharge patient to home (via wheelchair). - Return to liver clinic as previously scheduled. - Repeat paracentesis PRN for therapeutic purposes. Attending Participation: I was present for the kirkpatrick portions of this procedure and either I or my colleague was immediately available for all non-kirkpatrick portions of the procedure. Procedure Code(s): --- Professional --- 06964, Abdominal paracentesis (diagnostic or therapeutic); with imaging guidance Diagnosis Code(s): --- Professional --- K70.31, Alcoholic cirrhosis of liver with ascites R18.8, Other ascites K74.60, Unspecified cirrhosis of liver K76.6, Portal hypertension CPT copyright 2021 [place]. All rights reserved. The codes documented in this report are preliminary and upon avian keeper review may be revised to meet current compliance requirements. Eden Caro PA-C 12/02/2024 2:36:43 PM This report has been signed electronically. Yousif Paz, Note Initiated On: 12/02/2024 2:13 PM Number of Addenda: [id number] [place] [address] [employer] 12/02/2024 2:13 PM CDT Eden Caro PA-C GI PROCEDURE ORDERABLES Edited Result - Final [facility] [employer] * PROBRAIN NATRIURETIC PEPTIDE N TERMINAL (12/02/2024 11:32 AM CDT) NT-proBNP 98 0 - 124 pg/mL 12/05/2024 10:04 AM CDT [employer] ([facility]) Comment: REFERENCE INTERVAL: NT-Probnp Natriuretic Peptide Access complete set of age- and/or gender-specific reference intervals for this test in the [employer] [facility] Test Directory ([employer]). Performed By: [facility] [address] [place] [id number] [employer] Supervisor: Kulwant Coker MD, PhD CLIA Number: [id number] Blood BLOOD SPECIMEN / Unknown Venipuncture / Unknown 12/02/2024 11:32 AM CDT 12/02/2024 11:40 AM CDT us Eden Caro PA-C LAB - CHEMISTRY ORDERAB LES Final Result [facility] ([facility]) [address] [place] [id number], [facility] * (ABNORMAL) BASIC METABOLIC PANEL (CALCIUM TOTAL) (12/02/2024 11:32 AM CDT) Only the most recent of2 resultswithin the time period is included. BUN 23 7 - 26 mg/dL 12/02/2024 12:15 PM [facility] Creatinine 1.18(H) 0.56 - 0.96 mg/dL 12/02/2024 12:15 PM [facility] Sodium 129(L) 136 - 145 mmol/L 12/02/2024 12:15 PM [facility] Potassium 4.0 3.5 - 4.5 mmol/L 12/02/2024 12:15 PM [facility] Chloride 104 98 - 107 mmol/L 12/02/2024 12:15 PM [facility] CO2 19(L) 22 - 29 mmol/L 12/02/2024 12:15 PM [facility] Glucose 89 70 - 99 mg/dL 12/02/2024 12:15 PM [facility] Calcium 8.6 8.4 - 10.2 mg/dL 12/02/2024 12:15 PM [facility] Anion Gap 6 6 - 16 12/02/2024 12:15 PM [facility] BUN/Creatinine Ratio 19 7 - 23 12/02/2024 12:15 PM [facility] Osmolality Calculated 271(L) 275 - 295 mOsm/kg 12/02/2024 12:15 PM [facility] eGFR by CKD-EPI 55(L) >=90 mL/min/1.7 3 m2 12/02/2024 12:15 PM [facility] Comment:Estimated Glomerular Filtration Rate (eGFR) calculated using the CKD-EPI Creatinine Equation (2020), per the National Kidney Foundation and [place] [employer] recommendations. Blood BLOOD SPECIMEN / Unknown Venipuncture / Unknown 12/02/2024 11:32 AM CDT 12/02/2024 11:44 AM CDT us Eden Caro PA-C LAB - CHEMISTRY ORDERAB LES Final Result [facility] [address] [place] [phone], [facility] [phone] * (ABNORMAL) HEPATIC FUNCTION PANEL (12/02/2024 11:32 AM CDT) Protein Total 6.5 6.0 - 8.3 g/dL 025 12:15 PM [facility] Albumin 3.1(L) 3.4 - 5.0 g/dL 12/02/2024 12:15 PM [facility] Bilirubin Total 3.1(H) 0.2 - 1.2 mg/dL 06/2024 12:15 PM [facility] Bilirubin Conjugated 0.8(H) 0.1 - 0.5 mg/dL 12/02/2024 12:15 PM [facility] Bilirubin Unconjugated 2.3 Unconjugated Bilirubin is a calculated value: Reference ranges have not been established. mg/dL 12/02/2024 12:15 PM [facility] Alkaline Phosphatase 148 40 - 150 U/L 12/02/2024 12:15 PM [facility] ALT 15 5 - 55 U/L 12/02/2024 12:15 PM [facility] AST 31 5 - 34 U/L 12/02/2024 12:15 PM [facility] Albumin/Globulin Ratio 0.9(L) 1.1 - 2.3 12/02/2024 12:15 PM [facility] Blood BLOOD SPECIMEN / Unknown Venipuncture / Unknown 12/02/2024 11:32 AM CDT 12/02/2024 11:44 AM CDT us Harmon M Gordo LEONARD LAB - CHEMISTRY ORDERAB LES Final Result [facility] [address] [place] [phone], [facility] [phone] * (ABNORMAL) HEPATITIS A ANTIBODY (12/02/2024 11:32 AM CDT) Hepatitis A Virus Antibody Total Positive( A) Negative 12/04/2024 9:05 AM CDT [facility] ([facility]) Comment: The positive anti-HAV is consistent with recent or remote Hepatitis A infection or antibody response to HAV vaccination. False positive anti-HAV can occur. Performed By: [facility] [address] [place] [address] [employer] Supervisor: Kulwant Coker MD, PhD CLIA Number: [id number] Blood BLOOD SPECIMEN / Unknown Venipuncture / Unknown 12/02/2024 11:32 AM CDT 12/02/2024 11:40 AM CDT Eden Crao PA-C LAB - CHEMISTRY ORDERAB LES Final Result Performing Organization Address City/[facility]/ZIP Co de Phone Number [facility]) [address] [place] [address] * PROTEIN BODY FLUID (12/02/2024 11:07 AM CDT) Only the most recent of2 resultswithin the time period is included. Protein Fluid 1.6 Not Established For Fluids g/dL 12/02/2024 11:51 AM CDT [facility]ORATORY [facility] Fluid Type Peritoneal Fluid 12/02/2024 11:51 AM CDT [facility]OR[facility]ORY [facility] Fluid PERITONEAL FLUID / Unknown Collection / Unknown 12/02/2024 11:07 AM CDT 12/02/2024 11:26 AM CDT Narrative [facility] - 12/02/2024 11:51 AM CDT The analytical performance of this test has been independently validated by the laboratory. A reference range has not been established for this fluid. Comparison of this result with the concentration in blood, serum or plasma is recommended. Eden Caro PA-C LAB - BODY FLUID ORDERA BLES Final Result Performing Organization Address [facility] Co de Phone Number [address] [phone], [facility] [phone] * ALBUMIN BODY FLUID (12/02/2024 11:07 AM CDT) Only the most recent of2 resultswithin the time period is included. Albumin Fluid 0.8 g/dL 12/02/2024 11:51 AM CDT [facility] Fluid Type Peritoneal Fluid 12/02/2024 11:51 AM CDT [facility] Fluid PERITONEAL FLUID / Unknown Collection / Unknown 12/02/2024 11:07 AM CDT 12/02/2024 11:26 AM CDT Narrative [facility] - 12/02/2024 11:51 AM CDT The analytical performance of this test has been independently validated by the laboratory. A reference range has not been established for this fluid. Comparison of this result with the concentration in blood, serum or plasma is recommended. Eden Yadav JeannettePepe PA-C LAB - BODY FLUID ORDERA BLES Final Result Performing Organization Address [facility] de Phone Number [address] [phone], [facility] [phone] * Large Volume Paracentesis (11/25/2024 1:34 PM CDT) Report Endoscopy POC Endoscopy Department Report __ _ Patient Name: Nasreen Maguire Procedure Date: 11/25/2024 1:34 PM Date of : 1970 Classification: Outpatient Gender: Female Ethnicity: Not or Race: White __ _ Providers: Eden Caro PA-C, Saad Villafuerte MD Referring MD: Procedure: Paracentesis (Repeat) Indications: Ascites, Ascites shown on ultrasound, Diagnostic to rule out peritonitis, Cirrhosis, Cirrhosis (Alcoholic), Portal hypertension Medications: 1% Lidocaine 10 mL SubQ Description of Procedure: After obtaining informed consent, the procedure was performed. Throughout the procedure, the patient's blood pressure, pulse, and oxygen saturations were monitored continuously. The paracentesis was accomplished without difficulty. The patient tolerated the procedure well. Findings: Prior to the procedure, the abdomen was examined and demonstrated moderate distention with ascites and a fluid wave to be present. With the patient in a supine with head elevated position, the procedure site was sterilely prepped using chloraprep and draped in the usual fashion. 10 mL of 1% lidocaine was infiltrated into the skin and subcutaneous tissues. Using a left lower quadrant approach, a small stab incision was made with a disposable blade and a 5 inch 12 gauge paracentesis needle and cannula system was inserted into the peritoneal cavity under ultrasound guidance. Aspiration demonstrated no blood and good return of peritoneal fluid. One pass was made. The trocar was then removed leaving the catheter in place. 5.5 liters of clear, yellow fluid was withdrawn using a vacuum bottle. Fluid was sent for cell count and differential and culture and sensitivities. The incision site was closed with exofin and tegaderm. 150 mL of 25% Albumin was administered during the course of the procedure to treat the patient prophylactically for potential hypotension. Estimated Blood Loss: Estimated blood loss: none. Complications: No immediate complications. Impression: - Paracentesis successfully performed. - Test results pending. Recommendation: - Discharge patient to home (ambulatory). - Return to liver clinic as previously scheduled. - Repeat paracentesis as previously scheduled for therapeutic purposes. Attending Participation: I was present for the kirkpatrick portions of this procedure and either I or my colleague was immediately available for all non-kirkpatrick portions of the procedure. Procedure Code(s): --- Professional --- 41684, Abdominal paracentesis (diagnostic or therapeutic); with imaging guidance Diagnosis Code(s): --- Professional --- K70.31, Alcoholic cirrhosis of liver with ascites R18.8, Other ascites K74.60, Unspecified cirrhosis of liver K76.6, Portal hypertension CPT copyright 2021 [place] [employer]. All rights reserved. The codes documented in this report are preliminary and upon avian keeper review may be revised to meet current compliance requirements. Eden Caro PA-C 11/25/2024 1:40:14 PM This report has been signed electronically. Saad Villafuerte MD Note Initiated On: 11/25/2024 1:34 PM Number of Addenda: [address] [employer]ATION 11/25/2024 1:34 PM CDT Eden Caro PA-C GI PROCEDURE ORDERABLES Edited Result - Final [facility] [employer]ATION * Large Volume Paracentesis (11/11/2024 12:43 PM CDT) Report Endoscopy POC Endoscopy Department Report _ Patient Name: Nasreen Maguire Procedure Date: 11/11/2024 12:43 PM Date of : 1970 Classification: Outpatient Gender: Female Ethnicity: Not or Race: White _ Providers: Eden Caro PA-C, Luis Garcia MD: Procedure: Paracentesis (Repeat) Indications: Ascites, Ascites shown on ultrasound, Diagnostic to rule out peritonitis, Cirrhosis, Cirrhosis (Alcoholic), Portal hypertension Medications: 1% Lidocaine 10 mL SubQ Description of Procedure: After obtaining informed consent, the procedure was performed. Throughout the procedure, the patient's blood pressure, pulse, and oxygen saturations were monitored continuously. The paracentesis was accomplished without difficulty. The patient tolerated the procedure well. Findings: Prior to the procedure, the abdomen was examined and demonstrated moderate distention with ascites and a fluid wave to be present. With the patient in a supine with head elevated position, the procedure site was sterilely prepped using chlorapre and draped in the usual fashion. 10 mL of 1% lidocaine was infiltrated into the skin and subcutaneous tissues. Using a left lower quadrant approach, a small stab incision was made with a disposable blade and a 5 inch 12 gauge paracentesis needle and cannula system was inserted into the peritoneal cavity under ultrasound guidance. Aspiration demonstrated no blood and good return of peritoneal fluid. One pass was made. The trocar was then removed leaving the catheter in place. 3.5 liters of clear, yellow fluid was withdrawn using a vacuum bottle. Fluid was sent for cell count and differential and culture and sensitivities. The incision site was closed with exofin and tegaderm. Estimated Blood Loss: Estimated blood loss: none. Complications: No immediate complications. Impression: - Paracentesis successfully performed. - Test results pending. Recommendation: - Discharge patient to home (via wheelchair). - Return to liver clinic as previously scheduled. - Repeat paracentesis PRN for therapeutic purposes. Attending Participation: I was present for the kirkpatrick portions of this procedure and either I or my colleague was immediately available for all non-kirkpatrick portions of the procedure. Procedure Code(s): --- Professional --- 93239, Abdominal paracentesis (diagnostic or therapeutic); with imaging guidance Diagnosis Code(s): --- Professional --- K70.31, Alcoholic cirrhosis of liver with ascites R18.8, Other ascites K74.60, Unspecified cirrhosis of liver K76.6, Portal hypertension CPT copyright 2021 [place] [employer]. All rights reserved. The codes documented in this report are preliminary and upon avian keeper review may be revised to meet current compliance requirements. Eden Caro PA-C 11/11/2024 12:46:07 PM This report has been signed electronically. Luis Lopez, Note Initiated On: 11/11/2024 12:43 PM Number of Addenda: [id number] [place] [address] [employer] 11/11/2024 12:4 3 PM CDT us Eden Caro PA-C GI PROCEDURE ORDERABLES Edited Result - Final [facility] [employer] * EGD (11/05/2024 11:51 AM CDT) Report Endoscopy POC Endoscopy Department Report _ Patient Name: Nasreen Magurie Procedure Date: 11/05/2024 11:51 AM Date of : 1970 Classification: Outpatient Gender: Female Ethnicity: Not or Race: White _ Providers: Nasrin Donohue MD (Fellow) Referring MD: Adonis Delatorre (Referring MD) Procedure: Upper GI endoscopy Indications: Variceal screening (no known varices or prior bleeding) Medications: Monitored Anesthesia Care Comorbidities See the other procedure note for documentation of comorbidities Patient Profile: Refer to note in patient chart for documentation of history and physical. Description of Procedure: Pre-Anesthesia Assessment: - Prior to the procedure, a History and Physical was performed, and patient medications and allergies were reviewed. The patient's tolerance of previous anesthesia was also reviewed. The risks and benefits of the procedure and the sedation options and risks were discussed with the patient. All questions were answered, and informed consent was obtained. Prior Anticoagulants: The patient has taken no anticoagulant or antiplatelet agents. ASA Grade Assessment: III - A patient with severe systemic disease. After reviewing the risks and benefits, the patient was deemed in satisfactory condition to undergo the procedure. After obtaining informed consent, the endoscope was passed under direct vision. Throughout the procedure, the patient's blood pressure, pulse, and oxygen saturations were monitored continuously. The Endoscope was introduced through the mouth, and advanced to the second part of duodenum. The upper GI endoscopy was accomplished without difficulty. The patient tolerated the procedure well. Findings: Grade II varices were found in the lower third of the esophagus. They were medium in size. Three bands were successfully placed with complete eradication, resulting in deflation of varices. There was no bleeding during and at the end of the procedure. Moderate portal hypertensive gastropathy was found in the entire examined stomach. The duodenal bulb, first portion of the duodenum and second portion of the duodenum were normal. Estimated Blood Loss: Estimated blood loss: none. Complications: No immediate complications. Estimated blood loss: None. Impression: - Grade II esophageal varices. Completely eradicated. Banded. - Portal hypertensive gastropathy. - Normal duodenal bulb, first portion of the duodenum and second portion of the duodenum. - No specimens collected. Recommendation: - Discharge patient to home. - Full liquid diet for 1 day, then advance as tolerated to resume low-salt diet. - Continue present medications. - Patient has a contact number available for emergencies. The signs and symptoms of potential delayed complications were discussed with the patient. Return to normal activities tomorrow. Written discharge instructions were provided to the patient. - Return to liver clinic as previously scheduled. Attending Participation: I was present and participated during the entire procedure, including non-kirkpatrick portions. Procedure Code(s): --- Professional --- 49851, Esophagogastroduo denoscopy, flexible, transoral; with band ligation of esophageal/gastri c varices Diagnosis Code(s): --- Professional --- I85.00, Esophageal varices without bleeding K76.6, Portal hypertension K31.89, Other diseases of stomach and duodenum Z13.810, Encounter for screening for upper gastrointestinal disorder CPT copyright 2021 [place] [employer]. All rights reserved. The codes documented in this report are preliminary and upon avian keeper review may be revised to meet current compliance requirements. Caio Richmond, 11/05/2024 12:25:36 PM Note Initiated On: 11/05/2024 11:51 AM Number of Addenda: [phone] [place] [address] [employer] 11/05/2024 11:5 1 AM CDT Caio Richmond MD GI PROCEDURE ORDERABLES Edite d Result - Final [facility] [employer] * Large Volume Paracentesis (11/04/2024 1:14 PM CDT) Report Endoscopy POC Endoscopy Department Report _ Patient Name: Nasreen Maguire Procedure Date: 11/04/2024 1:14 PM Date of : 1970 Classification: Outpatient Gender: Female Ethnicity: Not or Race: White _ Providers: Eden Caro PA-C, Saad Villafuerte MD Referring MD: Procedure: Paracentesis (Repeat) Indications: Ascites, Ascites shown on ultrasound, Diagnostic to rule out peritonitis, Cirrhosis, Cirrhosis (Alcoholic), Portal hypertension Medications: 1% Lidocaine 10 mL SubQ Description of Procedure: After obtaining informed consent, the procedure was performed. Throughout the procedure, the patient's blood pressure, pulse, and oxygen saturations were monitored continuously. The paracentesis was accomplished without difficulty. The patient tolerated the procedure well. Findings: Prior to the procedure, the abdomen was examined and demonstrated moderate distention with ascites and a fluid wave to be present. With the patient in a supine with head elevated position, the procedure site was sterilely prepped using chloraprep and draped in the usual fashion. 10 mL of 1% lidocaine was infiltrated into the skin and subcutaneous tissues. Using a left lower quadrant approach, a small stab incision was made with a disposable blade and a 5 inch 12 gauge paracentesis needle and cannula system was inserted into the peritoneal cavity under ultrasound guidance. Aspiration demonstrated no blood and good return of peritoneal fluid. One pass was made. The trocar was then removed leaving the catheter in place. 3 liters of yellow fluid was withdrawn using a vacuum bottle. Fluid was sent for cell count and differential and culture and sensitivities. The incision site was closed with a single stitch. 100 mL of 25% Albumin was administered after the procedure to treat the patient for dehydration. Estimated Blood Loss: Estimated blood loss: none. Complications: No immediate complications. Impression: - Paracentesis successfully performed. - Test results pending. Recommendation: - Discharge patient to home (via wheelchair). - Return to liver clinic as previously scheduled. - Repeat paracentesis PRN for therapeutic purposes. Attending Participation: I was present for the kirkpatrick portions of this procedure and either I or my colleague was immediately available for all non-kirkpatrick portions of the procedure. Procedure Code(s): --- Professional --- 12551, Abdominal paracentesis (diagnostic or therapeutic); with imaging guidance Diagnosis Code(s): --- Professional --- K70.31, Alcoholic cirrhosis of liver with ascites R18.8, Other ascites K74.60, Unspecified cirrhosis of liver K76.6, Portal hypertension CPT copyright 2021 [employer]. All rights reserved. The codes documented in this report are preliminary and upon avian keeper review may be revised to meet current compliance requirements. Eden Caro PA-C 11/04/2024 1:17:44 PM This report has been signed electronically. __ Saad Villafuerte MD Note Initiated On: 11/04/2024 1:14 PM Number of Addenda: [address] [employer] 11/04/2024 1:14 PM CDT us Eden Caro PA-C GI PROCEDURE ORDERABLES Edited Result - Final [facility] [employer] * Large Volume Paracentesis (10/28/2024 9:42 AM CDT) Report Endoscopy POC Endoscopy Department Report _ Patient Name: Nasreen Maguire Procedure Date: 10/28/2024 9:42 AM Date of : 1970 Classification: Outpatient Gender: Female Ethnicity: Not or Race: White _ Providers: Edwin Pringle (Fellow) Referring MD: Procedure: Paracentesis (Repeat) Indications: Ascites Medications: 1% Lidocaine 8 mL SubQ Description of Procedure: After obtaining informed consent, the procedure was performed. Throughout the procedure, the patient's blood pressure, pulse, and oxygen saturations were monitored continuously.The patient tolerated the procedure well. Findings: With the patient in a supine with head elevated position, the procedure site was sterilely prepped using betadine and draped in the usual fashion. 8 mL of 1% lidocaine with epinephrine was infiltrated into the skin and subcutaneous tissues. Using a left periumbilical approach, a small stab incision was made with a disposable blade and a paracentesis needle with overlying catheter was inserted into the peritoneal cavity under ultrasound guidance. Aspiration demonstrated no blood and good return of peritoneal fluid. One pass was made. 5 liters of clear fluid was withdrawn using a high volume pump. Estimated Blood Loss: Estimated blood loss: none. Complications: No immediate complications. Impression: - Paracentesis successfully performed. - Test results pending. Recommendation: - Discharge patient to home. - Resume previous diet. Attending Participation: I was available for the kirkpatrick portions of this procedure and immediately available for all non-kirkpatrick portions of the procedure. Procedure Code(s): --- Professional --- 12460, Abdominal paracentesis (diagnostic or therapeutic); with imaging guidance Diagnosis Code(s): --- Professional --- R18.8, Other ascites CPT copyright 2021 [employer]. All rights reserved. The codes documented in this report are preliminary and upon avian keeper review may be revised to meet current compliance requirements. Luis Lopez, 10/28/2024 12:36:23 PM Note Initiated On: 10/28/2024 9:42 AM Number of Addenda: [address] [employer] 10/28/2024 9:42 AM CDT us Eden Caro PA-C GI PROCEDURE ORDERABLES Edited Result - Final [facility] [employer] * NIACIN (VITAMIN B3) (10/21/2024 5:19 PM CDT) Nicotinic Acid None Det ng/mL 10/28/2024 7:11 AM CDT [employer] ([facility]) Comment: Serum or Plasma Reporting Limit: 10 ng/mL Synonym(s): Niacor(R); Niaspan(R); Slo-Niacin(R); Vitamin B3 Nicotinic acid occurs naturally in plants and animals and is also added to many foods as a vitamin supplement. Due to the large variability in the metabolism of nicotinic acid, the dosing preparation used (immediate-release vs. extended-release), and the mg doses used, the serum concentrations may range from less than 10 ng/mL to about 08588 ng/mL. After oral administration of an immediate-release tablet, peak plasma concentrations are achieved in 30 to 60 min; after oral administration of an extended-release capsule, peak plasma concentrations occur in 4 to 5 hours. The plasma half-life of nicotinic acid is about 1 hour. In one study, fasting plasma concentrations were reported to be approximately 10 ng/mL. In another study it was reported that the administration of a single 1000 mg extended-release tablet resulted in mean nicotinic acid concentrations of less than 50 ng/mL. The administration of multiple oral doses of nicotinic acid (for a total of 2000 mg) resulted in the following mean peak nicotinic acid plasma concentrations: 25 mg every 10 min. for 80 doses (over 13 hours): 1100 ng/mL 50 mg every 10 min. for 40 doses (over 6.5 hours): 5400 ng/mL 100 mg every 10 min. for 20 doses (over 3 hours): 16651 ng/mL This test should be considered as a therapeutic drug monitoring/toxicological test associated with niacin (Vitamin B3) supplementation. Care should be taken in the use of this test for basal Vitamin B3 determination. The supplied reference comment does not reflect normal, endogenous Vitamin B3 concentrations. Analysis by High Performance Liquid Chromatography/ Tandem Mass Spectrometry (LC-MS/MS) Nicotinamide 19 ng/mL 10/28/2024 7:11 AM [facility] ([facility]) Comment: Serum or Plasma Reporting Limit: 10 ng/mL Synonym(s): Niacinamide; Vitamin B3; Niacin(R) Nicotinamide is a metabolite of nicotinic acid, is the common form of niacin included in vitamin preparations and is also added to many foods as a vitamin supplement. Due to the large variability in the metabolism of nicotinic acid, plasma concentrations of this metabolite also are variable. In one study, fasting plasma concentrations were reported to be approximately 40 ng/mL. In another study it was reported that the administration of a single 1000 mg extended-release tablet of nicotinic acid resulted in a mean peak Nicotinamide concentration of 400 ng/mL between 5 and 10 hours post dose, decreasing to about 100 ng/mL by 16 hours post dose. The administration of multiple oral doses of nicotinic acid (for a total of 2000 mg) resulted in the following mean peak Nicotinamide plasma concentrations: 25 mg every 10 min. for 80 doses (over 13 hours): 1300 ng/mL 50 mg every 10 min. for 40 doses (over 6.5 hours): 2300 ng/mL 100 mg every 10 min. for 20 doses (over 3 hours): 2000 ng/mL This test should be considered as a therapeutic drug monitoring/toxicological test associated with niacin (Vitamin B3) supplementation. Care should be taken in the use of this test for basal Vitamin B3 determination. The supplied reference comment does not reflect normal, endogenous Vitamin B3 concentrations. Analysis by High Performance Liquid Chromatography/ Tandem Mass Spectrometry (LC-MS/MS) Nicotinuric Acid None Det ng/mL 10/29/19 7:11 AM [facility] ([facility]) Comment: Serum or Plasma Reporting Limit: 10 ng/mL Synonym(s): Niacin Metabolite Nicotinuric acid is a metabolite of nicotinic acid and nicotinamide. Due to the large variability in the metabolism of nicotinic acid and nicotinamide, plasma concentrations of this metabolite also are variable. In one study it was reported that the administration of a single 1000 mg extended-release tablet of nicotinic acid resulted in a mean peak nicotinuric acid concentration of over 1000 ng/mL within 2 hours post dose, decreasing to less than 200 ng/mL by 6 hours and less than 50 ng/mL by 12 hours post dose. The administration of multiple oral doses of nicotinic acid (for a total of 2000 mg) resulted in the following mean peak nicotinuric acid plasma concentrations: 25 mg every 10 min. for 80 doses (over 13 hours): 950 ng/mL 50 mg every 10 min. for 40 doses (over 6.5 hours): 2300 ng/mL 100 mg every 10 min. for 20 doses (over 3 hours): 5100 ng/mL This test should be considered as a therapeutic drug monitoring/toxicological test associated with niacin (Vitamin B3) supplementation. Care should be taken in the use of this test for basal Vitamin B3 determination. The supplied reference comment does not reflect normal, endogenous Vitamin B3 concentrations. Analysis by High Performance Liquid Chromatography/ Tandem Mass Spectrometry (LC-MS/MS) This test was developed and its performance characteristics determined by [employer]. It has not been cleared or approved by the [place] Food and Drug Administration. Digital data review may have taken place remotely by qualified [facility] staff utilizing a secure VPN connection for some or all of the reported results. This is in accordance with and follows CLIA regulations. Testing performed at [facility] [address] [place] [phone] Lorenzo Tanner, PhD, -[facility], [facility]-, Research Greenhouse Supervisor [facility] [id number] Blood BLOOD SPECIMEN / Unknown Lab Venipuncture / Unknown 10/21/2024 5:19 PM CDT 10/21/2024 6:27 PM CDT Jarrell Ulrich MD LAB - CHEMISTRY ORDERABLES Final Result [facility] [employer] [facility]) [address] * (ABNORMAL) ZINC BLOOD (10/21/2024 5:19 PM CDT) [facility] Zinc 44.1(L) 60.0 - 120.0 ug/dL 10/24/2024 2:09 AM CDT [facility] [employer] ([facility]) Comment: INTERPRETIVE INFORMATION: Zinc, Serum or Plasma Elevated results may be due to skin or collection-related contamination, including the use of a noncertified metal-free collection/transport tube. If contamination concerns exist due to elevated levels of serum/plasma zinc, confirmation with a second specimen collected in a certified metal-free tube is recommended. Circulating zinc concentrations are dependent on albumin status and are depressed with malnutrition. Zinc may also be lowered with infection, inflammation, stress, oral contraceptives, and . Zinc may be elevated with zinc supplementation or fasting. Elevated zinc concentrations may interfere with copper absorption. This test was developed and its performance characteristics determined by [employer]. It has not been cleared or approved by the [place] Food and Drug Administration. This test was performed in a CLIA certified laboratory and is intended for clinical purposes. Performed By: [facility] [address] [place] [address] Research Greenhouse Supervisor: Kulwant Coker MD, PhD CLIA Number: [id number] Blood BLOOD SPECIMEN / Unknown Lab Venipuncture / Unknown 10/21/2024 5:19 PM CDT 10/21/2024 6:26 PM CDT Jarrell Ulrich MD LAB - CHEMISTRY ORDERABLES Final Result [facility] [employer] ([facility]) [address] [place] [address] * VITAMIN B1 (10/21/2024 5:19 PM CDT) [facility] Vitamin B1 Whole Blood 176 70 - 180 nmol/L 10/25/2024 10:[address] [facility] ([facility]) Comment: INTERPRETIVE INFORMATION: Vitamin B1, Whole Blood This assay measures the concentration of thiamine diphosphate (TDP), the primary active form of vitamin B1. Approximately 90 percent of vitamin B1 present in whole blood is TDP. Thiamine and thiamine monophosphate, which comprise the remaining 10 percent, are not measured. This test was developed and its performance characteristics determined by [employer]. It has not been cleared or approved by the US Food and Drug Administration. This test was performed in a CLIA certified laboratory and is intended for clinical purposes. Performed By: [facility] [address] [place] [address] [employer] Green[employer] Supervisor: Kulwant Coker MD, PhD CLIA Number: [id number] Blood BLOOD SPECIMEN / Unknown Lab Venipuncture / Unknown 10/21/2024 5:19 PM CDT 10/21/2024 6:27 PM CDT Jarrell Ulrich MD LAB - CHEMISTRY ORDERABLES Final Result Performing Organization Address [facility] de Phone Number [facility]) [address] [place] [address] * VITAMIN B6 (10/21/2024 5:19 PM CDT) Vitamin B6 29.1 20.0 - 125.0 nmol/L 10/26/2024 10:[address] [facility] ([facility]) Comment: INTERPRETIVE INFORMATION: Vitamin B6 (Pyridoxal 5-Phosphate) Pyridoxal 5'-phosphate measured in a specimen collected following an 8-hour or overnight fast accurately indicates vitamin B6 nutritional status. Non-fasting specimen concentration reflects recent vitamin intake. This test was developed and its performance characteristics determined by [employer]. It has not been cleared or approved by the US Food and Drug Administration. This test was performed in a CLIA certified laboratory and is intended for clinical purposes. Performed By: [facility] [address] [place] [address] Research Green[employer] Supervisor: Kulwant Coker MD, PhD CLIA Number: [id number] Blood BLOOD SPECIMEN / Unknown Lab Venipuncture / Unknown 10/21/2024 5:19 PM CDT 10/21/2024 6:26 PM CDT Jarrell Ulrich MD LAB - CHEMISTRY ORDERABLES Final Result Performing Organization Address [facility] de Phone Number [facility]) [address] [place] [address] * VITAMIN C (10/21/2024 5:19 PM CDT) Vitamin C 38 23 - 114 umol/L 10/27/2024 1:02 AM CDT [facility] [employer] ([facility]) Comment: Vitamin C concentrations lower than 11 umol/L indicate deficiency. Concentrations between 11 and 23 umol/L are consistent with a moderate risk of deficiency due to inadequate tissue stores. Vitamin C concentration is reported as micromoles per liter (umol/L). To convert concentration to milligrams per deciliter (mg/dL), multiply the result by 0.0176. This test was developed and its performance characteristics determined by [employer]. It has not been cleared or approved by the US Food and Drug Administration. This test was performed in a CLIA certified laboratory and is intended for clinical purposes. Performed By: [facility] [address] [place], [place] [id number] [employer] Supervisor: Kulwant Coker MD, PhD CLIA Number: [id number] Blood BLOOD SPECIMEN / Unknown Lab Venipuncture / Unknown 10/21/2024 5:19 PM CDT 10/21/2024 6:27 PM CDT Jarrell Ulrich MD LAB - CHEMISTRY ORDERABLES Final Result Performing Organization Address City/[facility] de Phone Number [facility] ([facility]) [address] [place], [place] [id number] * FOLATE (10/21/2024 5:19 PM CDT) Folate 16.4 7.0 - 31.4 ng/mL 10/21/2024 11:22 PM CDT [facility] Blood BLOOD SPECIMEN / Unknown Lab Venipuncture / Unknown 10/21/2024 5:19 PM CDT 10/21/2024 6:38 PM CDT Jarrell Ulrich MD LAB - CHEMISTRY ORDERABLES Final Result Performing Organization Address [facility] Co de Phone Number [address] [address], [facility] [phone] * VITAMIN B12 (10/21/2024 5:19 PM CDT) Vitamin B12 808 213 - 816 pg/mL 10/21/2024 7:32 PM CDT [facility] Blood BLOOD SPECIMEN / Unknown Lab Venipuncture / Unknown 10/21/2024 5:19 PM CDT 10/21/2024 6:38 PM CDT Jarrell Ulrich MD LAB - CHEMISTRY ORDERABLES Final Result Performing Organization Address City/[facility]/ZIP Co de Phone Number [address] [address], [facility] [phone] * (ABNORMAL) IRON + TRANSFERRIN PANEL (10/21/2024 5:19 PM CDT) Iron 161(H) 40 - 150 ug/dL 10/21/2024 10:47 PM CDT [facility] Transferrin 165(L) 174 - 382 mg/dL 10/21/2024 10:47 PM CDT [facility] Transferrin Saturation % 78(H) 16 - 50 % 10/21/2024 10:47 PM CDT [facility] TIBC Calculated 206(L) 240 - 450 ug/dL 10/21/2024 10:47 PM CDT [facility] Blood BLOOD SPECIMEN / Unknown Lab Venipuncture / Unknown 10/21/2024 5:19 PM CDT 10/21/2024 6:26 PM CDT Jarrell Ulrich MD LAB - CHEMISTRY ORDERABLES Final Result Performing Organization Address City/[facility]/ZIP Co de Phone Number [address] [address], [facility] [phone] * (ABNORMAL) CULTURE FUNGUS OTHER+FUNGUS SMEAR (10/21/2024 11:12 AM CDT) Pathologist [facility] Culture Rare Katerine albicans(A) 11/15/2024 10:53 AM CDT [facility] Fungus Stain No yeast or hyphae seen 11/15/2024 10:53 AM CDT [facility] Microbiology SPECIMEN FROM SKIN OBTAINED BY SCRAPING / Unknown Collection / Unknown 10/21/2024 11:12 AM CDT 10/21/2024 11:24 AM CDT Tarik Daigle MD LAB - MICROBIOLOGY ORD ERABLES Final Result [facility] [address] [place] [address], [facility] [phone] * HERPES SIMPLEX 1+2 PCR LESION (10/21/2024 11:12 AM CDT) Pathologist [facility] Herpes Simplex Virus 1 PCR Lesion Not detected Not detected 10/21/2024 4:33 PM CDT [facility] Herpes Simplex Virus 2 PCR Lesion Not detected Not detected 10/21/2024 4:33 PM CDT [facility] Microbiology TISSUE SPECIMEN FROM SKIN / Unknown Collection / Unknown 10/21/2024 11:12 AM CDT 10/21/2024 11:23 AM CDT Tarik Daigle MD LAB - MICROBIOLOGY ORD ERABLES Final Result Performing Organization Address City/[facility]/ZIP Co de Phone Number [facility] [address] [place] [address], [facility] [phone] * CULTURE WOUND+GRAM STAIN (10/21/2024 11:12 AM CDT) Pathologist [facility] Culture Moderate normal skin pat 10/24/2024 3:11 AM CDT [facility] Gram Stain Rare Polymorphonuclear cells 10/24/2024 3:11 AM CDT [facility] Gram Stain No organisms seen 025 3:11 AM CDT [facility] Microbiology TISSUE SPECIMEN FROM SKIN / Unknown Collection / Unknown 10/21/2024 11:12 AM CDT 10/21/2024 11:24 AM CDT Tarik Daigle MD LAB - MICROBIOLOGY ORD ERABLES Final Result Performing Organization Address City/[facility] Co de Phone Number [facility] [address] [place] [address], [facility] [phone] * (ABNORMAL) CBC W/O DIFFERENTIAL (10/21/2024 6:34 AM CDT) Only the most recent of2 resultswithin the time period is included. Pathologist [facility] WBC 4.8 4.0 - 10.7 x10E9/L 10/21/2024 8:42 AM CDT [facility] RBC Count 2.86(L) 3.90 - 5.20 x10E12/L 10/21/2024 8:42 AM [facility] Hemoglobin 9.4(L) 11.9 - 15.8 g/dL 10/21/2024 8:42 AM [facility] Hematocrit 27.9(L) 34.8 - 46.1 % 10/21/2024 8:42 AM [facility] MCV 97.6 80.0 - 98.0 fL 10/21/2024 8:42 AM [facility] MCH 32.9 26.7 - 33.6 pg 10/21/2024 8:42 AM [facility] MCHC 33.7 31.7 - 36.3 g/dL 10/21/2024 8:42 AM [facility] RDW-CV 15.8(H) 11.3 - 14.8 % 10/21/2024 8:42 AM [facility] Platelet Count 85(L) 150 - 420 x10E9/L 10/21/2024 8:42 AM [facility] MPV 10.9 7.8 - 11.4 fL 10/21/2024 8:42 AM [facility] Blood BLOOD SPECIMEN / Unknown Lab Venipuncture / Unknown 10/21/2024 6:34 AM CDT 10/21/2024 7:34 AM CDT us Lul Young PA-C LAB - HEMATOLOGY ORDERABL ES Final Result Performing Organization Address [facility] Co de Phone Number [address] [address], [facility] [phone] * Paracentesis (10/20/2024 9:20 PM CDT) Narrative Faisal Rodriguez MD - 10/20/2024 9:20 PM CDT Faisal Rodriguez MD 11/02/2024 9:58 AM Paracentesis Date/Time: 10/20/2024 9:20 PM Performed by: Freddie Prado MD Authorized by: Faisal Rodriguez MD Consent: Consent obtained: Written Consent given by: Patient Risks, benefits, and alternatives were discussed: yes Risks discussed: Bleeding, bowel perforation, infection and pain Alternatives discussed: No treatment [place] protocol: Procedure explained and questions answered to patient or proxy's satisfaction: yes Relevant documents present and verified: yes Test results available: yes Imaging studies available: yes Required blood products, implants, devices, and special equipment available: yes Site/side marked: yes Immediately prior to procedure, a time out was called: yes Patient identity confirmed: Verbally with patient Pre-procedure details: Procedure purpose: Diagnostic Preparation: Patient was prepped and draped in usual sterile fashion Anesthesia: Anesthesia method: Local infiltration Local anesthetic: Lidocaine 1% w/o epi Procedure details: Needle gauge: 20 Ultrasound guidance: no Puncture site: R lower quadrant Fluid removed amount: 30cc Fluid appearance: Yellow and clear Dressing: Adhesive bandage Post-procedure details: Procedure completion: Tolerated Faisal Rodriguez MD PROCEDURE/MINOR SURGICAL ORDER HUSSEIN Final Result * TROPONIN-I HIGH SENSITIVE (10/20/2024 7:04 PM CDT) Troponin I High Sensitive <3 <=14 ng/L 10/20/2024 7:52 PM CDT [facility] Blood BLOOD SPECIMEN / Unknown Venipuncture / Unknown 10/20/2024 7:04 PM CDT 10/20/2024 7:07 PM CDT Faisal Rodriguez MD LAB - CHEMISTRY ORDERABLES Fin al Result [facility] [address] [place] [phone], [facility] [phone] * PTT (10/20/2024 5:17 PM CDT) APTT 36.2 23.0 - 38.4 Seconds 10/20/2024 6:14 PM CDT [facility] Comment:Suggested therapeuti c range for full dose I.V. unfractionated heparin therapy for venous thromboembolism is 71 to 109 seconds. Blood BLOOD SPECIMEN / Unknown Venipuncture / Unknown 10/20/2024 5:17 PM CDT 10/20/2024 5:27 PM CDT Faisal Rodriguez MD LAB - COAGULATION ORDERABLES F inal Result Performing Organization Address City/[facility]/ZIP Co de Phone Number [address] [address], [place] [phone] * BILIRUBIN BODY FLUID (10/14/2024 3:42 PM CDT) Bilirubin Fluid 0.7 Not Established For Fluids mg/dL 10/14/2024 5:10 PM CDT [facility] Comment:The analytical perfo rmance of this test has been independently validated by [facility]. A reference range has not been established. Comparison of this result with the concentration in blood, serum or plasma is recommended. Fluid PERITONEAL FLUID / Unknown Collection / Unknown 10/14/2024 3:42 PM CDT 10/14/2024 3:47 PM CDT us Caio Richmond MD LAB - BODY FLUID ORDERABLES F inal Result Performing Organization Address [facility] Co de Phone Number [address] [address], [place] [phone] * PH BODY FLUID ([facility] ONLY) (10/14/2024 3:42 PM CDT) pH Fluid 7.82 Not Established for Fluids pH 10/14/2024 4:00 PM CDT [facility] Body Fluid Type Peritoneal Fluid 10/14/2024 4:00 PM CDT [facility] Fluid PERITONEAL FLUID / Unknown Collection / Unknown 10/14/2024 3:42 PM CDT 10/14/2024 3:47 PM CDT us Caio Richmond MD LAB - BODY FLUID ORDERABLES F inal Result Performing Organization Address City/[facility]/ZIP Co de Phone Number [address] [address], [place] [phone] * [facility] BODY FLUID (10/14/2024 3:42 PM CDT) LD Fluid 63 Not Established For Fluids Units/L 10/14/2024 5:12 PM [facility] Fluid Type Peritoneal Fluid 10/14/2024 5:12 PM [facility] Fluid PERITONEAL FLUID / Unknown Collection / Unknown 10/14/2024 3:42 PM CDT 10/14/2024 3:47 PM CDT Narrative [facility] - 10/14/2024 5:12 PM CDT The analytical performance of this test has been independently validated by the laboratory. A reference range has not been established for this fluid. Comparison of this result with the concentration in blood, serum or plasma is recommended. us Caio Richmond MD LAB - BODY FLUID ORDERABLES F inal Result [facility] [address] [place] [address], [facility] [phone] * (ABNORMAL) BLOOD GASES JACKSON + COOX PANEL (10/10/2024 10:19 AM T) pH Venous 7.37 7.32 - 7.42 pH 10/10/2024 10:27 AM [facility] pO2 Venous 63(H) 35 - 40 mmHg 10/10/2024 10:27 AM [facility] pCO2 Venous 36(L) 40 - 50 mmHg 10/10/2024 10:27 AM [facility] HCO3 Venous 20.8 20 - 30 mmol/L 10/10/2024 10:27 AM [facility] Base Excess Venous -4.0(L) -2.0 - 2.0 mmol/L 10/10/2024 10:27 AM [facility] Oxyhemoglobin Venous 90.5 % 09/28 10:27 AM [facility] Deoxyhemoglobin (HHB) Venous % 6.8 % 10/10/2024 10:27 AM [facility] Methemoglobin <0.8 0.0 - 2.0 % 10/10/2024 10:27 AM [facility] Carboxyhemoglobin 2.1(H) 0.0 - 2.0 % 2024 10:27 AM CDT [facility] O2 Content Venous 12.1 Interpret within clinical context ml/dL 10/10/2024 10:27 AM CDT [facility] Hemoglobin by COOX 9.5(L) 12.0 - 15.6 g/dL 10/10/2024 10:27 AM CDT [facility] O2 Saturation Venous 93 >=70 % 09/28 10:27 AM CDT [facility] FI O2 Mixed Venous 32.0 % 2024 10:27 AM CDT [facility] Blood BLOOD SPECIMEN / Unknown Venipuncture / Unknown 10/10/2024 10:19 AM CDT 10/10/2024 10:25 AM CDT Narrative [facility] - 10/10/2024 10:27 AM CDT Carboxyhemoglobin Normal Concentration: Non-smokers: 0-2%; Smokers: 0-9%; Toxic: >20% us Ingrid Sanford MD LAB - BLOOD GASES ORDERABLES Fin al Result Performing Organization Address City/[facility]/ZIP Co de Phone Number [address] [address], [facility] [phone] * TSH REFLEX FREE T4 (10/08/2024 2:36 AM CDT) Pathologist [facility] TSH 2.268 0.350 - 4.940 uIU/mL 10/08/2024 3:43 AM CDT [facility] Blood BLOOD SPECIMEN / Unknown Venipuncture / Unknown 10/08/2024 2:36 AM CDT 10/08/2024 2:42 AM CDT us Sandra Camarillo MD LAB - CHEMISTRY ORDERABLES Final Result [address] [address], [facility] [phone] * Large Volume Paracentesis (09/30/2024 3:34 PM CDT) Report Endoscopy POC Endoscopy Department Report __ _ Patient Name: Nasreen Maguire Procedure Date: 09/30/2024 3:34 PM Date of : 1970 Classification: Outpatient Gender: Female Ethnicity: Not or Race: White __ _ Providers: Eden Caro PA-C, Luis Garcia MD: Procedure: Paracentesis (Repeat) Indications: Ascites, Ascites shown on ultrasound, Diagnostic to rule out peritonitis, Cirrhosis, Cirrhosis (Alcoholic), Portal hypertension, MASH Medications: 1% Lidocaine 10 mL SubQ Description of Procedure: After obtaining informed consent, the procedure was performed. Throughout the procedure, the patient's blood pressure, pulse, and oxygen saturations were monitored continuously. The paracentesis was accomplished without difficulty. The patient tolerated the procedure well. Findings: Prior to the procedure, the abdomen was examined and demonstrated significant distention with ascites and a fluid wave to be present. With the patient in a supine with head elevated position, the procedure site was sterilely prepped using chloroprep and draped in the usual fashion. 10 mL of 1% lidocaine was infiltrated into the skin and subcutaneous tissues. Using a left lower quadrant approach, a small stab incision was made with a disposable blade and a 5 inch 12 gauge paracentesis needle and cannula system was inserted into the peritoneal cavity under ultrasound guidance. Aspiration demonstrated no blood and good return of peritoneal fluid. One pass was made. The trocar was then removed leaving the catheter in place. 8 liters of yellow fluid was withdrawn using a vacuum bottle. Fluid was sent for cell count and differential and culture and sensitivities. The incision site was closed with pressure dressing and bandaid. 200 mL of 25% Albumin was administered after the procedure to treat the patient prophylactically for potential hypotension. Estimated Blood Loss: Estimated blood loss: none. Complications: No immediate complications. Impression: - Paracentesis successfully performed. - Test results pending. Recommendation: - Discharge patient to home (ambulatory). - Return to liver clinic as previously scheduled. - Repeat paracentesis PRN for therapeutic purposes. Attending Participation: I was present for the kirkpatrick portions of this procedure and either I or my colleague was immediately available for all non-kirkpatrick portions of the procedure. Procedure Code(s): --- Professional --- 89760, Abdominal paracentesis (diagnostic or therapeutic); with imaging guidance Diagnosis Code(s): --- Professional --- K70.31, Alcoholic cirrhosis of liver with ascites R18.8, Other ascites K74.60, Unspecified cirrhosis of liver K76.6, Portal hypertension K75.81, Nonalcoholic steatohepatitis (BACON) CPT copyright 2021 [employer]. All rights reserved. The codes documented in this report are preliminary and upon avian keeper review may be revised to meet current compliance requirements. Eden Caro PA-C 09/30/2024 3:51:40 PM This report has been signed electronically. Luis Lopez, Note Initiated On: 09/30/2024 3:34 PM Number of Addenda: [address] PROVATION 09/30/2024 3:34 PM CDT us Eden Caro PA-C GI PROCEDURE ORDERABLES Edited Result - Final [facility] PROVATION * US Paracentesis (09/23/2024 3:53 PM CDT) Anatomical Region Laterality Modality Abdomen Ultrasound 09/24/2024 9:50 AM CDT Impressions 09/24/2024 9:50 AM CDT IMPRESSION: Successful ultrasound-guided paracentesis. > Interpreting Provider: Wilmer Phelps MD on 09/24/2024 9:50 AM Narrative 09/24/2024 9:50 AM CDT PROCEDURE: US PARACENTESIS DATE/TIME OF EXAM: 09/23/2024 4:21 PM CLINICAL INFORMATION: None relevant/not provided if blank. Indication: K70.31: Ascites due to alcoholic cirrhosis (HCC) Additional History: COMPARISON: None. PROCEDURE: The risks, benefits, and alternatives of the procedure were discussed with the patient, who agreed to proceed and signed informed consent. The patient was placed in the supine position. An appropriate skin entry site was chosen over the right lower abdomen. A sonographic image was obtained for the patient permanent medical record. The skin was prepped and draped in standard sterile fashion. Standard timeout was performed and [place] Protocol Policy steps were completed for the documented procedure. 1% lidocaine was utilized to anesthetize the skin and subcutaneous tissues at the proposed needle entry site. A tiny dermatotomy was made. A standard SSM stocked small bore needle catheter device was inserted into the peritoneal cavity. Appropriate needle placement was confirmed with return of fluid. The catheter was fed off the needle and the needle was withdrawn. The catheter was attached to vacuum drainage. A total of 3.3 liters of serous fluid was aspirated. Fluid was sent to laboratory for analysis if indicated with orders. The patient tolerated the procedure well. There were no immediate complications. COMPLICATIONS: None immediate. Procedure Note Wilmer Phelps MD - 09/24/2024 PROCEDURE: US PARACENTESIS DATE/TIME OF EXAM: 09/23/2024 4:21 PM CLINICAL INFORMATION: None relevant/not provided if blank. Indication: K70.31: Ascites due to alcoholic cirrhosis (HCC) Additional History: COMPARISON: None. PROCEDURE: The risks, benefits, and alternatives of the procedure were discussedwith the patient, who agreed to proceed and signed informed consent. Thepatient was placed in the supine position. An appropriate skin entry site was chosen over the right lower abdomen. A sonographic image was obtainedfor the patient permanent medical record. The skin was prepped and draped in standard sterile fashion. Standard timeout was performed and [place] Protocol Policy steps were completed for the documented procedure. 1% lidocaine was utilized to anesthetize the skin and subcutaneoustissues at the proposed needle entry site. A tiny dermatotomy was made. Astandard SSM stocked small bore needle catheter device was inserted into the peritoneal cavity. Appropriate needle placement was confirmed withreturn of fluid. The catheter was fed off the needle and the needle waswithdrawn. The catheter was attached to vacuum drainage. A total of 3.3 liters of serous fluid was aspirated. Fluid was sent to laboratory for analysis if indicated with orders. The patient tolerated the procedure well. There were no immediate complications. COMPLICATIONS: None immediate. IMPRESSION: Successful ultrasound-guided paracentesis. > Interpreting Provider: Wilmer Phelps MD on 09/24/2024 9:50 AM us Daryl Hutchinson MD ORDERABLES Final Result * (ABNORMAL) HEMOGLOBIN A1C (HgbA1C) (05/17/2024 12:29 PM CLIMBING GUIDE) [facility] Hemoglobin A1c <4.2(L) 4.8 - 5.6 % [facility] ACCOUNT BILL Comment: Verified by repeat analysis Prediabetes: 5.7 - 6.4 Diabetes: >6.4 Glycemic control for adults with diabetes: <7.0 Blood BLOOD SPECIMEN / Unknown 05/17/2024 12:29 PM CLIMBING GUIDE 05/17/2024 Narrative [facility] ACCOUNT BILL - 05/18/2024 11:10 AM CLIMBING GUIDE Performed at: - [address] [id number] Motor Vehicle Technician: Bubba Noel PhD, Phone: [phone] us Arcelia Whitney FITNESS SALES ASSOCIATE-UNEMPLOYMENT CLAIMS ADJUDICATOR LAB - CHEMISTRY ORDE GAL Final Result [facility] ACCOUNT BILL [address] [place] [address] * HEPATITIS SCREEN ACUTE (06/11/2023 11:38 PM CDT) [facility] HAV Antibody IgM Non Reactive Non Reactive 06/12/2023 10:53 AM CDT [facility] HBsAg Non Reactive Non Reactive 06/12/2023 10:53 AM CDT [facility] HBc Antibody IgM Non Reactive Non Reactive 06/12/2023 10:53 AM CDT [facility] HCV Antibody Screen Non Reactive Non Reactive 06/12/2023 10:53 AM CDT [facility] Blood BLOOD SPECIMEN / Unknown Lab Venipuncture / Unknown 06/11/2023 11:38 PM CDT 06/11/2023 11:54 PM CDT Narrative [facility] - 06/12/2023 10:53 AM CDT Non Reactive - Antibodies to Hepatitis C virus (HCV) were not detected, result does not exclude early acute HCV infection. Deb Winn DO LAB - CHEMISTRY ORDER HUSSEIN Final Result Performing Organization Address [facility] Co de Phone Number [facility] [address] [place] [address] [phone] * HIV-1 HIV-2 ANTIBODY + HIV P24 AG PANEL (06/19/2021 4:27 PM CDT) HIV1/2 Ab + P24 Ag Non Reactive Non Reactive 06/19/2021 10:15 PM CDT [facility] Blood BLOOD SPECIMEN / Unknown Venipuncture / Unknown 06/19/2021 4:27 PM CDT 06/19/2021 4:39 PM CDT Narrative [facility] - 06/19/2021 10:15 PM CDT No Laboratory evidence of HIV infection. 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 - 08/26/24 08/26/2024 09/20/2024 ESBL GNR 12/13/2024 12/13/2024 MDRO 12/13/2024 12/13/2024 Insurance MEDICAID [facility] ANTHEM ANTHEM * Guarantor: NASREEN DALE Account Type Relation to Patient Date of Phone Billing Address Personal/Family 1970 [address] [facility] [place] [place] [address] Advance Directives * Full Code (Latest Code Status on File) Date Activated Date Inactivated Comments 12/13/2024 4:07 PM 12/15/2024 6:34 PM * Full Code Date Activated Date Inactivated Comments 10/20/2024 8:50 PM 10/22/2024 9:28 PM * Full Code Date Activated Date Inactivated Comments 10/08/2024 4:54 AM 10/14/2024 7:51 PM * Full Code Date Activated Date Inactivated Comments 09/17/2024 11:42 PM 09/24/2024 8:31 PM * Full Code Date Activated Date Inactivated Comments 08/21/2024 9:59 PM 08/27/2024 12:51 PM Care Teams Manager Case Relationship Specialty [place] [address] [address] PCP - General 10/07/24 Arcelia Whitney, FITNESS SALES ASSOCIATE-UNEMPLOYMENT CLAIMS ADJUDICATOR [address] [phone] Nurse Practitioner Family Medicine 06/21/24
--- OUTSIDE RECORDS SUMMARY | 2024-12-24 13:15 | XMS_ITS | Encounter Summary ---
Author Organization [facility] Address [address] [place] [address] Care Team Providers Care Manager Center Name Role Phone Jhonny, Tri Shirley DO Primary Care Provider [phone] Encounter Details Date Type Department Care Team (Late st Contact Info) Description 12/22/2003 Outpatient Historical [facility] Internal Medicine Medical [place] [facility] [address] [facility] [address] [phone] Carly Armijo MD Social History Tobacco Use Types Packs/Day Years Used Date Smoking Tobacco: Never Assessed Comments Unknown Sex and Gender Information Value Date Recorded Sex Assigned at Not on file Legal Sex Female 6:00 PM HAND STRIPPER Gender Identity Not on file Sexual Orientation [...] COVID-19 05/20/2024 05/20/2024 05/20/2024 12:4 3 PM HAND STRIPPER documented as of this encounter Care Teams Manager Center Relationship Specialty Start Date End Date Tri Barry DO PCP - General Family Practice 02/09/21 12/24/22 documented as of this encounter
--- OUTSIDE RECORDS SUMMARY | 2024-12-24 13:15 | XMS_ITS | Encounter Summary ---
Author Organization [facility] Address [address] [place] [address] Care Team Providers Care Crop Grain Or Livestock Farm Manager Name Role Phone Jhonny, Tri Shirley DO Primary Care Provider [phone] Encounter Details Date Type Department Care Team (Late st Contact Info) Description 01/06/2004 Outpatient Historical [facility] Carly Armijo MD NONTOX MULTINODUL GOITER (Primary Dx) Social History Tobacco Use Types Packs/Day Years Used Date Smoking Tobacco: Never Assessed Comments Unknown Sex and Gender Information Value Date Recorded Sex Assigned at Not on file Legal Sex Female 6:00 PM BODY JOINER Gender Identity Not on file Sexual Orientation Not on file documented as of this encounter Plan of Treatment Not on file documented as of this encounter Visit Diagnoses Diagnosis Nontoxic multinodular goiter- Primary documented in this encounter Additional Health [...] COVID-19 05/20/2024 05/20/2024 05/20/2024 12:4 3 PM BODY JOINER documented as of this encounter Care Teams Crop Grain Or Livestock Farm Manager Relationship Specialty Start Date End Date Tri Barry DO PCP - General Family Practice 02/09/21 12/24/22 documented as of this encounter
--- OUTSIDE RECORDS SUMMARY | 2024-12-24 13:15 | XMS_ITS | Encounter Summary ---
Author Organization [facility] Address [address] [place] [address] Care Team Providers Care Mexican Food Maker Name Role Phone Jhonny, Tritrinidad Shirley DO Primary Care Provider [phone] Encounter Details Date Type Department Care Team (Latest Contact Info) Description 12/19/2003 Outpatient Historical [facility] Carly Arreguin MD BENIGN NEOPLASM THYROID (Primary Dx) Social History Tobacco Use Types Packs/Day Years Used Date Smoking Tobacco: Never Assessed Comments Unknown Sex and Gender Information Value Date Recorded Sex Assigned at Not on file Legal Sex Female 6:00 PM COMMUNITY LIAISON Gender Identity Not on file Sexual Orientation Not on file documented as of this encounter Plan of Treatment Not on file documented as of this encounter Visit Diagnoses Diagnosis Benign neoplasm of thyroid glands- Primary documented in this encounter Additional Health [...] COVID-19 05/20/2024 05/20/2024 05/20/2024 12:4 3 PM COMMUNITY LIAISON documented as of this encounter Care Teams Mexican Food Maker Relationship Specialty Start Date End Date Tri Barry DO PCP - General Family Practice 02/09/21 12/24/22 documented as of this encounter
--- OUTSIDE RECORDS SUMMARY | 2024-12-24 13:15 | XMS_ITS | Encounter Summary ---
Author Organization [facility] Address [address] [place] [address] Care Team Providers Care Protection Engineer Name Role Phone Jhonny, Tri Fern FONSECA Primary Care Provider [phone] Encounter Details Date Type Department Care Team (Latest Contact Info) Description 11/23/2008 Outpatient Historical [facility] Prasanth Shukla MD [address] [address] Calculus of Kidney Social History Tobacco Use Types Packs/Day Years Used Date Smoking Tobacco: Never Assessed Comments Unknown Sex and Gender Information Value Date Recorded Sex Assigned at Not on file Legal Sex Female 6:00 PM SCRAP BALER Gender Identity Not on file Sexual Orientation Not on file documented as of this encounter Plan of Treatment Not on file documented as of this encounter Procedures Procedure Name Priority Date/Time Associated Diagnosis Comments XR ABDOMEN 1 VW Routine 11/23/2008 8:53 AM CDT documented in this encounter Results * XR ABDOMEN 1 VW (11/23/2008 8:53 AM CDT) Anatomical Region Laterality Modality Abdomen Other 11/23/2008 8:53 AM CDT Narrative 11/23/2008 2:29 PM CDT [facility] [place], [place] [address] [place], [place] [address] Admit Date: 11/23/2008 VALE DALE Sex: F Admit Prov: PRASANTH SHUKLA Date: 1970 Primary Care Prov: PCP, UNKNOWN; LUCRETIA CMRN: [id number] EM Burris N: [id number] Room: [facility] Ordering Prov: N/A Accession Number: [id number] Interpretation Exam: ABDOMEN AP (KUB) . Nov 23, 2008 8:53:07 AM History: stone . There is stool and gas throughout the abdomen in an unremarkable pattern. No abnormal soft tissue densities or organomegaly are evident. The approximately 1 cm calcific density in the parenchyma of the upper pole left kidney is again noted. No other calcific densities suggestive of urinary stones are seen. The bony structures are unremarkable. IMPRESSION: Left parenchymal calcification not appreciably changed from CT scan of 11/11/2008. . Dictated by: DENNYS ASENCIO 11/23/2008 14:23 Electronically signed by: DENNYS ASENCIO 11/23/2008 14:27 Procedure Note Dennys Asencio MD - 11/23/2008 [facility] [place] [place] [address] [place], [place] [address] Admit Date: 11/23/2008 VALE DALE Sex: F Admit Prov: PRASANTH SHUKLA Date:1970 Primary Care Prov: PCP, UNKNOWN; LUCRETIA KELSIN: [id number] EM Burris N: [id number] Room: [facility] Ordering Prov: N/A Interpretation Exam: ABDOMEN AP (KUB) . Nov 23, 2008 8:53:07 AM History: stone . There is stool and gas throughout the abdomen in an unremarkablepattern. No abnormal soft tissue densities or organomegaly are evident. The approximately 1 cm calcific density in the parenchyma of the upperpole left kidney is again noted. No other calcific densities suggestiveof urinary stones are seen. The bony structures are unremarkable. IMPRESSION: Left parenchymal calcification not appreciably changedfrom CT scan of 11/11/2008. . Dictated by: DENNYS ASENCIO 11/23/2008 14:23 Electronically signed by: DENNYS ASENCIO 11/23/2008 14:27 us Prasanth Shukla MD DIAGNOSTIC IMAGING ORDERABL ES Final Result documented in this encounter Visit Diagnoses Diagnosis Calculus of kidney documented in this encounter Additional Health Concerns [...] COVID-19 05/20/2024 05/20/2024 05/20/2024 12:4 3 PM SCRAP BALER documented as of this encounter Care Teams Protection Engineer Relationship Specialty Start Date End Date Tri Barry DO PCP - General Family Practice 02/09/21 12/24/22 documented as of this encounter
--- OUTSIDE RECORDS SUMMARY | 2024-12-24 13:15 | XMS_ITS | Encounter Summary ---
Author Organization [facility] Address [address] [place] [address] Care Team Providers Care Rugby League Footballer Name Role Phone Jhonny, Tri Shirley DO Primary Care Provider [phone] Encounter Details Date Type Department Care Team (Late st Contact Info) Description 05/26/2006 Outpatient Historical [facility] Internal Medicine [address] [place] [address] Bret Trotter MD [address] [place] [phone] Social History Tobacco Use Types Packs/Day Years Used Date Smoking Tobacco: Never Assessed Comments Unknown Sex and Gender Information Value Date Recorded Sex Assigned at Not on file Legal Sex Female 6:00 PM ESTIMATE CLERK Gender Identity Not on file Sexual Orientation [...] COVID-19 05/20/2024 05/20/2024 05/20/2024 12:4 3 PM ESTIMATE CLERK documented as of this encounter Care Teams Rugby League Footballer Relationship Specialty Start Date End Date Tri Barry DO PCP - General Family Practice 02/09/21 12/24/22 documented as of this encounter
--- OUTSIDE RECORDS SUMMARY | 2024-12-24 13:15 | XMS_ITS | Encounter Summary ---
Author Organization [facility] Address [address] [place] [address] Care Team Providers Care Medical Assistant Dermatology Name Role Phone Jhonny, Tritrinidad Shirley DO Primary Care Provider [phone] Encounter Details Date Type Department Care Team (Latest Contact Info) Description 08/03/2004 Outpatient Historical HIS [facility] T[facility]ER[facility] Plascencia, Felicita Burris MD [address] [address] HYPOTHYROIDISM NOS (Primary Dx) Social History Tobacco Use Types Packs/Day Years Used Date Smoking Tobacco: Never Assessed Comments Unknown Sex and Gender Information Value Date Recorded Sex Assigned at Not on file Legal Sex Female 6:00 PM COILED COIL INSPECTOR Gender Identity Not on file Sexual Orientation Not on file documented as of this encounter Plan of Treatment Not on file documented as of this encounter Procedures Procedure Name Priority Date/Time Associated Diagnosis Comments T3 FREE Routine 08/03/2004 2:16 PM CDT TSH Routine 08/03/2004 2:16 PM CDT T4 FREE Routine 08/03/2004 2:16 PM CDT documented in this encounter Results * T3 FREE (08/03/2004 2:16 PM CDT) T3 FREE 2.9 2.5 - 4.4 pg/mL INTERFACE SYSTEM 08/03/2004 2:16 PM CDT Felicita Plascencia MD CHEMISTRY ORDERABLES Final Result Performing Organization Address City/[facility] [[email or web address]] Co de Phone Number INTERFACE SYSTEM Refer to clinic/hospital department * TSH (08/03/2004 2:16 PM CDT) TSH 3.50 0.27 - 4.20 uU/mL INTERFACE SYSTEM 08/03/2004 2:16 PM CDT Felicita Plascencia MD CHEMISTRY ORDERABLES Final Result Performing Organization Address City/[facility] Phone Number INTERFACE SYSTEM Refer to clinic/hospital department * T4 FREE (08/03/2004 2:16 PM CDT) T4 FREE 1.2 0.9 - 1.7 ng/dL INTERFACE SYSTEM 08/03/2004 2:16 PM CDT Felicita Plascencia MD CHEMISTRY ORDERABLES Final Result Performing Organization Address [facility] Phone Number INTERFACE SYSTEM Refer to [...] COVID-19 05/20/2024 05/20/2024 05/20/2024 12:4 3 PM COILED COIL INSPECTOR documented as of this encounter Care Teams Medical Assistant Dermatology Relationship Specialty Start Date End Date Tri Barry DO PCP - General Family Practice 02/09/21 12/24/22 documented as of this encounter
--- OUTSIDE RECORDS SUMMARY | 2024-12-24 13:15 | XMS_ITS | Encounter Summary ---
Author Organization [facility] Address [address] [place] [address] Care Team Providers Care Butcher Head Name Role Phone Unavailable Primary Care Provider Unavailabl e Reason for Visit * Reason Onset Date Comments HEPATORENAL 11/11/2023 SPOKE Daina /[email or web address]@ [email or web address] Encounter Details Date Type Department Care Team (Late st Contact Info) Description 11/11/2023 Telephone Count Includes [facility] Admitting [address] [place] [address] [place] [address] [place] [address] HEPATORENAL (SPOKE Daina /[email or web address]@ [email or web address]) Social History Tobacco Use Types Packs/Day Years Used Date Smoking Tobacco: Every Day Cigarettes 0.3 15 Smokeless Tobacco: Never Comments:started at age 26 Alcohol Use Standard Drinks/Week Comments Yes 0 (1 standard drink = 0.6 oz pur e alcohol) weekly-occ Feeling Safe Answer Date Recorded Are you in a relationship wi th someone who hurts you emotionally and/or physically? 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 diff 11/29/2023 11/29/2023 11/30/2023 2:30 PM CDT R/O C. diff 12/23/2023 12/23/2023 12/23/2023 5:59 PM CDT R/O COVID-19 05/20/2024 05/20/2024 05/20/2024 12:4 3 PM LEASE OUT MAN documented as of this encounter
--- OUTSIDE RECORDS SUMMARY | 2024-12-24 13:15 | XMS_ITS | Encounter Summary ---
Author Organization [facility] Health Address [address] [place] [address] Care Team Providers Care Ap Processor Name Role Phone Jazmyne Jordan MD Primary Care Provider [phone] Berta Marquez RN Unavailable [phone] Arcelia Whitney MOLDING UTILITY WORKER-PSYCHOPAEDIC NURSE Unavailable [phone] Adelaide Tse MD Primary Care Provider Unava ilable Encounter Details Date Type Department Care Team (Late st Contact Info) Description 02/10/2024 Telephone [facility] PHYS INTERNAL MED [address] [place] [phone] Trish Velarde MD [facility] [place] [address] Social History Tobacco Use Types Packs/Day Years Used Date Smoking Tobacco: Former Cigarettes 0.5 28.7 S tarted: 04/30/1996 Smokeless Tobacco: Never Alcohol Use Standard Drinks/Week Comments Not Currently 0 (1 standard drink = 0.6 oz pur e alcohol) occasionally AUDIT-C Answer Date Recorded Q1: How often do you have a drink containing alc ohol? Monthly or less 02/14/2024 Q2: How many drinks containi ng alcohol do you have on a typical day when you are drinking? 1 or 2 02/14/2024 Q3: How often do you have si x or more drinks on one occasion? Never 02/14/2024 Overall Financial Resource Strain (CARDIA) Meagan r Date Recorded How hard is it for you to pa y for the very basics like food, housing, medical care, and heating? Somewhat hard 02/14/2024 [facility] Occupat ional Health - Occupational Stress Questionnaire Answer Date Recorded Do you feel stress - tense, restless, nervous, or anxious, or unable to sleep at night because your mind is troubled all the time - these days? Not at all 02/14/2024 Hunger Vital Sign Answer Date Recorded Within the past 12 months, y ou worried that your food would run out before you got the money to buy more. Never true 02/14/20 24 Within the past 12 months, t he food you bought just didn't last and you didn't have money to get more. Never true 02/14/2024 PRAPARE - Transportation Answer Date Re corded In the past 12 months, has l ack of transportation kept you from medical appointments or from getting medications? No 01/29 In the past 12 months, has l ack of transportation kept you from meetings, work, or from getting things needed for daily living? No 02/14/2024 Housing Stability Vital Sign Answer Dale e [...] the mortgage or rent on time? No 02/14/2024 In the past 12 months, how m any times have you moved where you were living? 1 02/14/2024 At any time in the past 12 m onths, were you homeless or living in a residential (including now)? No 02/14/2024 Comments No Sex and Gender Information Value Date Recorded Sex Assigned at Not on file Legal Sex Female 5:09 AM CHANNEL WORKER Gender Identity Not on file Sexual Orientation Not on file documented as of this encounter Functional Status * Is person deaf or have serious hearing difficulty? Answer Date of Assessment Author No 01/08/2024 8:53 PM Nasreen Franks RN * Is person blind or have serious difficulty seeing? Answer Date of Assessment Author No 01/08/2024 8:53 PM CDT Nasreen Salinas RN * Does person have serious difficulty walking/climbing stairs? Answer Date of Assessment Author No 01/08/2024 8:53 PM CDT Nasreen Salinas RN * Does person have difficulty dressing/bathing? Answer Date of Assessment Author No 01/08/2024 8:53 PM PRADEEPT Nasreen Salinas RN * Does person have difficulty doing errands alone? Answer Date of Assessment Author No 01/08/2024 8:53 PM PRADEEPT Nasreen Salinas RN documented as of this encounter Mental Status * Does person have difficulty concentrating/remembering/making decisions? Answer Entry Date Author No 01/08/2024 8:53 PM Nasreen Franks RN documented in this encounter Miscellaneous Notes * Telephone Encounter - Trish Velarde MD - 02/10/2024 5:03 PM CST [facility] Transfer Call Documentation Date:02/10/2024 Time:5:04 PM Patient: Nasreen Orozco : 1970 Referring Facility Name:[facility] Reason for Transfer: Autoimmune hepatitis with cirrhosis. Has pancytopenia. Brief Description (including applicable labs, imaging, consultations): 53yo female with known h/o hypothyroidism, liver cirrhosis and ascites, h/o EtOH use, ?auto-immune heaptitis (only TAB positive), presented with decompensated liver cirrhosis. Her condition getting worse and needs once a week paracentesis. Needs to be transferred to [facility] forlong-term solution for her hepatic failure such as TIPS. [facility] liver team following pt. [facility] hepatology accepted pt as an consult. Patient needs on arrival to [facility]: Medicine admissions resident (ask glass lathe operator for Medicine Admission) to be notified of arrival. Consultation to (N/A if blank): [facility] hepatology I have accepted this patient for transfer to [facility]. If patient awaiting bed for >24hours, an update on patient's clinical condition is requested. Signed:Trish Velarde MD 02/10/2024 NEL WORKER documented in this encounter Plan of Treatment Upcoming Encounters Date Type Department Care Team (Late st Contact Info) Description 01/11/2025 9:50 AM CDT Office Visit [facility] - Dermatology [address] [place] [phone] Jarrell Ulrich MD [address] [place] [address] DIV OF [facility] [place] [address] Peter Dominguez MD [address] [place] [address] [place] [address] 02/03/2025 12:40 PM CHANNEL WORKER Appointment [facility] CAT SCAN [address] [place] [phone] Caio Rogers MD [address] [place] [phone] 03/28/2025 3:00 PM CHANNEL WORKER Office Visit [facility] - Pulmonology [address] [place] [phone] Jake Grijalva MD [address] [place] [address] OF [facility] [place] [address] 05/31/2025 10:30 AM CHANNEL WORKER Office Visit [facility] - GI [address] [place] [phone] Caio Rogers MD [address] [place] [phone] documented as of this encounter Visit Diagnoses Not on filedocumented in this encounter Additional Health Concerns Infection Onset Date Last Indicated Resolved Time COVID-19 Under Investigation 03/29/2024 03/29/2024 03/30/2024 12:11 AM CHANNEL WORKER VRE 08/26/2024 08/26/2024 09/20/2024 10:1 2 AM CDT VRE Hx Comment:Urine culture - 08/26/24 08/26/202409/20/2024 ESBL GNR 12/13/2024 12/13/2024 MDRO 12/13/2024 12/13/2024 documented as of this encounter Care Teams Ap Processor Relationship Specialty Start Date End Date Jazmyne Jordan MD [address] [place] [phone] PCP - General Family Medicine 05/17/24 10/06/24 [place] [address] [address] [facility] [address] [address] PCP - General 10/07/24 Berta Marquez RN Art TracerSewing Trimmer 05/27/24 06/23/24 Arcelia Whitney APRN-PSYCHOPAEDIC NURSE [address] [place] [phone] Nurse Practitioner Family Medicine 06/21/24 documented as of this encounter
--- OUTSIDE RECORDS SUMMARY | 2024-12-24 13:15 | XMS_ITS | Clinical Summary ---
Author Organization [facility] Address [address] [place] [address] Care Team Providers Care Business Analytics Director Name Role Phone Unavailable Primary Care Provider Unavailabl e Allergies Active Allergy Reactions Criticality Noted Date Comments Amoxicillin Hives,Rash,Swelling High 06/11/2023 Clavulanic Acid Swelling 06/11/2023 Latex Rash Medium 02/11/2012 Prednisone 08/15/2023 Other Reaction(s): Hives / Skin Rash Medications bumetanide (BUMEX) 0.5 MG tablet Take 3 tablets (1.5 mg total) by mouth in the morning. 90 tablet 5 Active carvedilol (COREG) 3.125 MG tablet Take 1 tablet (3.125 mg total) by mouth 2 (two) times a day with Breakfast and Dinner. 60 tablet 5 Active cholecalciferol (VITAMIN D3) 1.25 MG (13220 UT) capsule Take 1 capsule (50,000 Units total) by mouth once a week. 4 capsule 5 Active folic acid (FOLVITE) 1 MG tablet Take 1 tablet (1 mg total) by mouth in the morning. 5 Active lactulose 10 GM/15ML solution Take 30 mL (20 g total) by mouth every 6 (six) hours. Hepatic encephalopathy , Goals is 3 BM per day 3600 mL 5 Active levothyroxine (SYNTHROID) 200 MCG tablet Take 1 tablet (200 mcg total) by mouth Daily at 6am. 30 tablet 5 Active midodrine (PROAMATINE) 10 MG tablet Take 1 tablet (10 mg total) by mouth 4 (four) times a day. 120 tablet 5 Active spironolactone (ALDACTONE) 50 MG tablet Take 1 tablet (50 mg total) by mouth in the morning. 30 tablet 5 Active thiamine 100 MG tablet Take 1 tablet (100 mg total) by mouth in the morning. 5 Active Active Problems Problem Noted Date Diagnosed Date Hepatic encephalopathy 04/20/2024 Social History Tobacco Use Types Packs/Day Years Used Date Smoking Tobacco: Former Cigarettes Smokeless Tobacco: Never Tobacco Cessation:Counseling Given: Not Answered [facility] Utilities Answer Date Recorded In the past 12 months has I Do Venues, gas, oil, or water [employer] threatened to shut off services in your home? No 04/21/2024 Social Connection and Isolation Panel [NHANES] A nswer Date Recorded In a typical week, how many times do you talk on the phone with family, friends, or neighbors? Patient declined 04/21/2024 How often do you get togethe r with friends or relatives? Patient declined 04/21/2024 How often do you attend hindu or orthodox serv ices? Patient declined 04/21/2024 Do you belong to any clubs o r organizations such as hindu groups, unions, fraternal or athletic groups, or school groups? Patient declined 04/21/2024 How often do you attend meet ings of the clubs or organizations you belong to? Patient declined 04/21/2024 Are you , , di vorced, , never , or living with a partner? Never 04/21/2024 Overall Financial Resource Strain (CARDIA) Answe r Date Recorded How hard is it for you to pa y for the very basics like food, housing, medical care, and heating? Somewhat hard 04/21/2024 [facility] of Occupat ional Health - Occupational Stress Questionnaire Answer Date Recorded Do you feel stress - tense, restless, nervous, or anxious, or unable to sleep at night because your mind is troubled all the time - these days? Not at all 05/04/2024 Hunger Vital Sign Answer Date Recorded Within the past 12 months, y ou worried that your food would run out before you got the money to buy more. Patient declined Within the past 12 months, t he food you bought just didn't last and you didn't have money to get more. Patient declined Housing Stability Vital Sign Answer Dale e Recorded In the last 12 months, was t here a time when you were not able to pay the mortgage or rent on time? Patient declined 04/21/19 25 In the past 12 months, how m any times have you moved where you were living? 0 04/21/2024 At any time in the past 12 m [facility], were you homeless or living in a [place] [facility] facility (including now)? No 04/21/2024 Domestic Abuse Assessment Answer Date R ecorded Do you feel safe in your relationships at home? Yes 04/20/2024 Physical Abuse Denies 04/20/2024 HRSN Domestic Abuse - Type of Abuse Not on file 04/20/2024 HRSN Domestic Abuse - Time Frame Not on file 04/20/2024 HRSN Domestic Abuse - Signs and Symptoms Not on file 04/20/2024 Verbal Abuse Denies 04/20/2024 HRSN Domestic Abuse - Reported To Not on file 04/20/2024 SM SDOH Transportation Source Answer Da te Recorded Has lack of transportation k ept you from medical appointments or from getting medications? No 05/03/2024 Has lack of transportation k ept you from meetings, work, or from getting things needed for daily living? No 05/03/2024 HRSN Depression PHQ-2 Answer Date Recor ded Feeling down, depressed, or hopeless 0 05/04/2024 Little interest or pleasure in doing things 0 05/04/2024 Comments Unknown Sex and Gender Information Value Date Recorded Sex Assigned at Not on file Legal Sex Female 12:22 PM EST Gender Identity Not on file Sexual Orientation Not on file Last Filed Vital Signs Vital Sign Reading Time Taken Comments Blood Pressure 96/51 05/04/2024 6:42 AM AUTOMATION OPERATOR Pulse 72 05/04/2024 9:44 AM AUTOMATION OPERATOR Temperature 36.6 C (97.8 F) 05/04/2024 6:42 AM AUTOMATION OPERATOR Respiratory Rate 19 05/04/2024 6:42 AM AUTOMATION OPERATOR Oxygen Saturation 92% 05/04/2024 9:44 AM AUTOMATION OPERATOR Inhaled Oxygen Concentration - - Weight 83.5 kg (184 lb) 05/04/2024 4:00 AM AUTOMATION OPERATOR Height 170.2 cm (5' 7) 05/04/2024 4:00 AM AUTOMATION OPERATOR Body Mass Index 28.82 05/04/2024 4:00 AM AUTOMATION OPERATOR Plan of Treatment Health Maintenance Due Date Last Done Comments CT Colonography 1970 Colonoscopy 1970 Colorectal Cancer Screening 1970 FIT-DNA (Cologuard) 1970 FIT 1970 FOBT 1970 HPV/PAP 1970 Sigmoidoscopy 1970 Annual Visit Topic 1971 MMR Vaccines (1 of 1 - Stand balwinder series) 1971 Hepatitis C Screening 02/22/1988 Hepatitis B Vaccines (1 of 3 - 19+ 3-dose series) 1989 Pap Smear 1991 Cervical Cancer Screening 02/22/2000 HPV/Cotest 02/22/2000 HPV 02/22/2000 Mammogram 2010 DTaP/Tdap/Td Vaccines (2 - T d or Tdap) 09/30/2019 09/29/2009 HIB Vaccines Aged Out No longer eligi ble based on patient's age to complete this topic HPV Vaccines Aged Out No longer eligi ble based on patient's age to complete this topic Hepatitis A Vaccines Aged Out No long er eligible based on patient's age to complete this topic IPV Vaccines Aged Out No longer eligi ble based on patient's age to complete this topic Meningococcal Vaccine Aged Out No claudette bryon eligible based on patient's age to complete this topic Pneumococcal Vaccine: Pediat rics (0 to 5 years) and At-Risk Patients (6 to 64 Years) Aged Out No longer eligi ble based on patient's age to complete this topic Advance Directives * Full Resuscitation (Latest Code Status on File) Date Activated Date Inactivated Comments 04/20/2024 10:11 PM 05/04/2024 5:21 PM Question Answer Comments I have discussed this order with the patient or his/her surrogate and have received informed consent. Yes
--- OUTSIDE RECORDS SUMMARY | 2024-12-24 13:15 | XMS_ITS | Clinical Summary ---
Author Organization [facility] Health Address [address] [place] [address] Care Team Providers Care Harmonic Analyst Name Role Phone Unavailable Primary Care Provider Unavailabl e Social History Tobacco Use Types Packs/Day Years Used Date Smoking Tobacco: Never Assessed Comments Unknown Sex and Gender Information Value Date Recorded Sex Assigned at Not on file Legal Sex Female 9:05 PM PDT Gender Identity Not on file Sexual Orientation Not on file Plan of Treatment Not on file
--- OUTSIDE RECORDS SUMMARY | 2024-12-24 13:15 | XMS_ITS | Encounter Summary ---
Author Organization [facility] Address [address] [place] [address] Care Team Providers Care Teacher Instrumental Name Role Phone Indu Bryant DO Primary Care Provider [phone] Jazmyne Jordan MD Primary Care Provider [phone] Berta Marquez RN Unavailable [phone] Arcelia Whitney PAINTER HAND-SCRAP CRANE OPERATOR Unavailable [phone]- [phone] Adelaide Tse MD Primary Care Provider Unava ilable Reason for Visit * Reason Onset Date Comments Hospital Admission 08/18/2023 Encounter Details Date Type Department Care Team (Late st Contact Info) Description 08/18/2023 Telephone Transitional Care at [facility] [place] [id number] [place] [address] Horacio Levine MD [address] [address] Hospital Admission Social History Tobacco Use Types Packs/Day Years Used Date Smoking Tobacco: Former Cigarettes 0.5 28.7 S tarted: 04/30/1996 Smokeless Tobacco: Never Comments:Smokes 1 cigarette daily Alcohol Use Standard Drinks/Week Comments Yes 10 (1 standard drink = 0.6 oz pure alcohol) last drink was 3/8. Pt drinks a small bottle of wine every other day AUDIT-C Answer Date Recorded Q1: How often do you have a drink containing alc ohol? Monthly or less 08/18/2023 Q2: How many drinks containi ng alcohol do you have on a typical day when you are drinking? 1 or 2 08/18/2023 Q3: How often do you have si x or more drinks on one occasion? Monthly 08/18/2023 Overall Financial Resource Strain (CARDIA) Answe r Date Recorded How hard is it for you to pa y for the very basics like food, housing, medical care, and heating? Hard 08/19/2023 [facility] [place] [facility] - Occupational Stress Questionnaire Answer Date Recorded Do you feel stress - tense, restless, nervous, or anxious, or unable to sleep at night because your mind is troubled all the time - these days? To some extent 08/18/2023 Hunger Vital Sign Answer Date Recorded Within the past 12 months, y ou worried that your food would run out before you got the money to buy more. Sometimes true Within the past 12 months, t he food you bought just didn't last and you didn't have money to get more. Sometimes true PRAPARE - Transportation Answer Date Re corded In the past 12 months, has l ack of transportation kept you from medical appointments or from getting medications? No 07/30 In the past 12 months, has l ack of transportation kept you from meetings, work, or from getting things needed for daily living? No 08/18/2023 Housing Stability Vital Sign Answer Dale e Recorded In the last 12 months, was t here a time when you were not able to pay the mortgage or rent on time? No 08/18/2023 In the last 12 months, how many places have you lived? 1 08/18/2023 In the last 12 months, was t here a time when you did not have a steady place to sleep or slept in a fci (including now)? No 08/18/2023 Comments No Sex and Gender Information Value Date Recorded Sex Assigned at Not on file Legal Sex Female 5:09 AM BILINGUAL LEGAL ASSISTANT Gender Identity Not on file Sexual Orientation Not on file documented as of this encounter Functional Status * Question Answer Date of Assessment Author Q1: How often do you have a drink containing alcohol? Monthly or less 08/18/2023 4:00 PM CDT Elena Ramos RN Q2: How many drinks containing alcohol do you have on a typical day when you are drinking? 1 or 2 08/18/2023 4:00 PM CDT Mariluz Ramos sa, RN Q3: How often do you have six or more drinks on one occasion? Monthly 08/18/2023 4:00 PM CDT Elena Ramos RN * Audit-C Score Answer Date of Assessment Author 3 08/18/2023 4:00 PM CDT Elena Ramos RN * Is person deaf or have serious hearing difficulty? Answer Date of Assessment Author No 08/18/2023 5:00 PM CDT Elena Ramos RN * Is person blind or have serious difficulty seeing? Answer Date of Assessment Author No 08/18/2023 5:00 PM PRADEEPT Elena Ramos RN * Does person have serious difficulty walking/climbing stairs? Answer Date of Assessment Author No 08/18/2023 5:00 PM Elena Barr RN * Does person have difficulty dressing/bathing? Answer Date of Assessment Author No 08/18/2023 5:00 PM Elena Barr RN * Does person have difficulty doing errands alone? Answer Date of Assessment Author No 08/18/2023 5:00 PM Elena Barr RN documented as of this encounter Mental Status * Does person have difficulty concentrating/remembering/making decisions? Answer Entry Date Author No 08/18/2023 5:00 PM Elena Barr RN documented in this encounter Plan of Treatment Upcoming Encounters Date Type Department Care Team (Late st Contact Info) Description 01/11/2025 9:50 AM CDT Office Visit [facility] - Dermatology [address] [facility], [place] [phone] Jarrell Ulrich MD [facility] [facility] [place] [place] [address] Peter Dominguez MD [address] [facility] [place] [phone] 02/03/2025 12:40 PM BILINGUAL LEGAL ASSISTANT Appointment [facility] [address] [place] [address] Caio Rogers MD [address] [place] [phone] 03/28/2025 3:00 PM BILINGUAL LEGAL ASSISTANT Office Visit [facility] - Pulmonology [address] [place] [address], [place] [address] Jake Grijalva MD [address] [place] [address] OF [facility] [place] [address] 05/31/2025 10:30 AM BILINGUAL LEGAL ASSISTANT Office Visit [facility] - GI [address] [place] [address], [place] [phone] Caio Rogers MD [address] [place] [phone] documented as of this encounter Visit Diagnoses Not on filedocumented in this encounter Additional Health Concerns Infection Onset Date Last Indicated Resolved Time COVID-19 Under Investigation 08/18/2023 08/18/2023 08/18/2023 2:46 PM CDT COVID-19 Under Investigation 01/11/2024 01/11/2024 01/11/2024 7:44 PM CDT COVID-19 Under Investigation 03/29/2024 03/29/2024 03/30/2024 12:11 AM BILINGUAL LEGAL ASSISTANT VRE 08/26/2024 08/26/2024 09/20/2024 10:1 2 AM CDT VRE Hx Comment:Urine culture - 08/26/24 08/26/2024 09/20/2024 ESBL GNR 12/13/2024 12/13/2024 MDRO 12/13/2024 12/13/2024 documented as of this encounter Care Teams Teacher Instrumental Relationship Specialty Start Date End Date Indu Bryant DO [address] [facility] [address] [id number] PCP - General Family Medicine 08/18/23 01/07/24 Jazmyne Jordan MD [address] [address] PCP - General Family Medicine 05/17/24 10/06/24 [place] [address] [address] PCP - General 10/07/24 Berta Marquez RN [employer] ExecutiveEngineering Operations Leader 05/27/24 06/23/24 Arcelia Whitney, PAINTER HAND-SCRAP CRANE OPERATOR [address] [place] [address] Nurse Practitioner Family Medicine 06/21/24 documented as of this encounter
--- OUTSIDE RECORDS SUMMARY | 2024-12-24 13:15 | XMS_ITS | Encounter Summary ---
Author Organization [facility] Address [address] [facility] [address] Care Team Providers Care Cleaning Maid Name Role Phone Jhonny, Tri Shirley DO Primary Care Provider Encounter Details Date Type Department Care Team (Latest Contact Info) Description 12/14/2003 Outpatient Historical [facility] Carly Arreguin MD OTHER MALAISE AND FATIGUE (Primary Dx) Social History Tobacco Use Types Packs/Day Years Used Date Smoking Tobacco: Never Assessed Comments Unknown Sex and Gender Information Value Date Recorded Sex Assigned at Not on file Legal Sex Female 6:00 PM REAL ESTATE SALES SUPERVISOR Gender Identity Not on file Sexual [...] COVID-19 05/20/2024 05/20/2024 05/20/2024 12:4 3 PM REAL ESTATE SALES SUPERVISOR documented as of this encounter Care Teams Cleaning Maid Relationship Specialty Start Date End Date Tri Barry DO PCP - General Family Practice 02/09/21 12/24/22 documented as of this encounter
--- OUTSIDE RECORDS SUMMARY | 2024-12-24 13:15 | XMS_ITS | Encounter Summary ---
Author Organization [facility] Address [address] [place] [address] Care Team Providers Care Care Professional Name Role Phone Jhonny, Tri Shirley DO Primary Care Provider [phone] Encounter Details Date Type Department Care Team (Late st Contact Info) Description 11/11/2008 Outpatient Historical [facility] [address] [place] [address] Social History Tobacco Use Types Packs/Day Years Used Date Smoking Tobacco: Never Assessed Comments Unknown Sex and Gender Information Value Date Recorded Sex Assigned at Not on file Legal Sex Female 6:00 PM TENT WORKER Gender Identity Not on file Sexual Orientation Not on file documented as of this encounter Plan of Treatment Not on file documented as of this encounter Procedures Procedure Name Priority Date/Time Associated Diagnosis Comments CT ABDOMEN PELVIS W WO CONTRAST Routine 11/11/2008 1:17 PM CDT documented in this encounter Results * CT ABDOMEN PELVIS W WO CONTRAST (11/11/2008 1:17 PM CDT) Anatomical Region Laterality Modality Abdomen Other 11/11/2008 1:17 PM CDT Narrative 11/14/2008 7:26 AM CDT [facility] [address] [place] [place], [place] [address] Admit Date: 11/11/2008 VALE DALE Sex: F Admit Prov: JAIMEE PATRICK Date: 1970 Primary Care Prov: PCP, UNKNOWN; LUCRETIA CMRN: [id number] EM Burris N: [id number] Room: [facility] Ordering Prov: N/A Accession Number: [id number] Interpretation CT ABDOMEN AND PELVIS WITH AND WITHOUT IV CONTRAST, 11/11/2008 CLINICAL HISTORY: Left flank pain. CT imaging of the abdomen and pelvis was performed using helical technique and 5 mm collimation pre and post IV administration of 125 cc of Optiray- 320 contrast. No oral contrast was given. FINDINGS: The pleural and subdiaphragmatic spaces are clear. The liver is normal in size, outline and density without defect. The spleen, pancreas and adrenal glands appear normal. There is an 8 mm stone in the upper pole of the left kidney with a small adjacent hypodensity measuring less than a centimeter either representing a tiny cyst or possibly some minimal focal caliectasis. Other stones are not detected, and there is no evidence of generalized collecting system dilatation and no evidence of ureteral dilatation. There is no evidence of ureteral stone. There is surgical absence of the gallbladder. The abdominal retroperitoneal space is clear. The adrenal glands appear normal. The mesenteric and intraperitoneal contents appear normal, and there is no evidence of mass, inflammatory infiltrate or inappropriate fluid. IMPRESSION: Nonobstructing 8 mm stone upper pole left kidney with either an associated focal upper pole caliectasis or a small cyst measuring less than a centimeter. Otherwise negative kidney findings. No evidence of ureteral stone or obstruction. Surgically absent gallbladder. Otherwise negative CT abdominal and pelvic findings. . Dictated by: TOM LAU 11/11/2008 13:51 Electronically signed by: TOM LAU 11/14/2008 07:24 Transcribed: 11/11/2008 18:16 LE Procedure Note Tom Lau MD - 11/14/2008 [facility] [address] [place], [place] [address] Admit Date: 11/11/2008 VALE DALE Sex: F Admit Prov: JAIMEE PATRICK Date:1970 Primary Care Prov: PCP, UNKNOWN; LUCRETIA, CMRN: [id number] EM Burris SSN: [id number] Room: [facility] Ordering Prov: N/A Interpretation CT ABDOMEN AND PELVIS WITH AND WITHOUT IV CONTRAST, 11/11/2008 CLINICAL HISTORY: Left flank pain. CT imaging of the abdomen and pelvis was performed using helicaltechnique and 5 mm collimation pre and post IV administration of 125 cc ofOptiray- 320 contrast. No oral contrast was given. FINDINGS: The pleural and subdiaphragmatic spaces are clear. Theliver is normal in size, outline and density without defect. The spleen,pancreas and adrenal glands appear normal. There is an 8 mm stone in the upperpole of the left kidney with a small adjacent hypodensity measuring lessthan a centimeter either representing a tiny cyst or possibly some minimalfocal caliectasis. Other stones are not detected, and there is no evidenceof generalized collecting system dilatation and no evidence ofureteral dilatation. There is no evidence of ureteral stone. There issurgical absence of the gallbladder. The abdominal retroperitoneal space isclear. The adrenal glands appear normal. The mesenteric andintraperitoneal contents appear normal, and there is no evidence of mass,inflammatory infiltrate or inappropriate fluid. IMPRESSION: Nonobstructing 8 mm stone upper pole left kidney with either anassociated focal upper pole caliectasis or a small cyst measuring less than a centimeter. Otherwise negative kidney findings. No evidence ofureteral stone or obstruction. Surgically absent gallbladder. Otherwisenegative CT abdominal and pelvic findings. . Dictated by: TOM LAU 11/11/2008 13:51 Electronically signed by: TOM LAU 11/14/2008 07:24 Transcribed: 11/11/2008 18:16 LE us Jaimee Patrick MD CT ORDERABLES Final Resul t documented in this encounter Visit Diagnoses Not on filedocumented [...] COVID-19 05/20/2024 05/20/2024 05/20/2024 12:4 3 PM TENT WORKER documented as of this encounter Care Teams Care Professional Relationship Specialty Start Date End Date Tri Barry DO PCP - General Family Practice 02/09/21 12/24/22 documented as of this encounter
--- NOTE | 2024-12-24 14:28 | ED.SOB ---
HPI - SOB/Dyspnea General Chief Complaint: Shortness of Breath/Dyspnea Stated Complaint: Shortness, abdominal distention Time Seen by Provider: 12/24/24 13:39 History of Present Illness HPI Narrative: Patient is a 54-year-old female who presents ER with shortness of breath. Patient checked herself out of her rehab today against recommendations of the staff. When she left she was not provided any supplemental oxygen because she did not have a prescription for home she also was not provided any of her home medications. She reports her friend was driving her home and said her lips were turning blue and so they stopped here for further evaluation. She has no fevers or chills or sweats. No chest pain or abdominal pain. She is a liver patient at [facility] but she is unsure who her physician is. Patient typically wears 3 L of oxygen at all times. Patient reports that she gets weekly paracentesis on at [facility] but did not get it yesterday because they did not have a record of her needing a paracentesis. Related Data Home Medications ?Medication ?Instructions ?Recorded ?Confirmed ?Last Taken ?Type levothyroxine 200 mcg tablet 200 mcg PO DAILY 06/27/23 02/08/24 02/06/24 06:00 History calcium 600 mg (as carbonate)-vit 1 tablet PO DAILY 02/08/24 02/08/24 Unknown History D3 10 mcg (400 unit)-minerals tablet mecobalamin (vitamin B12) 1,000 1,000 mcg PO DAILY 02/08/24 02/08/24 Unknown History mcg chewable tablet (B12 Active) lactulose 10 gram/15 mL oral 30 ml PO Q6H liver failure 12/24/24 12/24/24 12/24/24 History solution levothyroxine 175 mcg tablet 175 mcg PO .daily 12/24/24 12/24/24 History Allergies Allergy/AdvReac Type Severity Reaction Status Date / Time amoxicillin Allergy Hives Verified 02/08/24 01:28 latex Allergy Rash Verified 02/08/24 01:28 Penicillins Allergy Hives Verified 02/08/24 01:28 hydromorphone (From Dilaudid) AdvReac Itching Verified 02/08/24 03:42 Review of Systems Review of Systems: All systems reviewed & are unremarkable except as noted in HPI and below Constitutional: Constitutional: Reports no additional constitutional complaints ENT: Reports system reviewed and no additional complaints, except as documented Cardiovascular: Cardiovascular: Reports no additional cardiovascular complaints Respiratory: Respiratory: Reports no additional respiratory complaints Gastrointestinal: Gastrointestinal: Reports no additional gastrointestinal complaints [facility] Past Medical History Medical History Otitis media when 10 yrs old Esophageal varices with bleeding Pulmonary edema Hypothyroidism SBP (spontaneous bacterial peritonitis) TAB positive Colon cancer screening Portal hypertension Thrombocytopenia Elevated liver enzymes Alcohol use Decompensation of cirrhosis of liver Nicotine dependence, cigarettes, with other nicotine-induced disorders 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 She has 1 child at the daughter and she states that the daughter had recently moved. She also states she did have her primary however primary recently left. She does wish to be a full code. All code status is were reviewed with the patient including DNR, DNI current pressors, BiPAP and CPAP. Patient wishes to be a full code at that time. She also likes her friend Franko to be her surrogate. Smoking packs per day: 0.5 Smoking cigarettes per day: 10.0 Years smoked: 5 Smoking pack-years: 2.50 Smoking status: Former smoker Tobacco type: cigarettes Smoking end date: 11/26/23 Alcohol intake: former Drinks per week: 4 Substance use: never Substance use type: does not use Do You Feel Safe in your Home?: Yes Lack of Transportation: YES Lack of Food: Often True Current Housing: I Have Housing Concerned About Future Housing: No Difficulty Paying Gas/Electric Bills: No Difficulty Paying for Meds: No Currently Unemployed: No Education: High School Diploma/GED Difficulty w/ Childcare or Family Care: No Living arrangements: with family Occupation/Education: other Additional occupation/education comments: disability Gender identity (if verbalized by the patient): Female Sexual Orientation (if Verbalized by the Patient): Straight or Heterosexual Spiritual care concerns: No Agree to blood products: Yes Exam Narrative: GENERAL: Well-appearing, well-nourished, and in no acute distress. HEAD: Normocephalic, atraumatic. EYES: PERRL and EOMI. ENT: Mucous membranes moist. CHEST: Clear to auscultation. No respiratory distress. HEART: Regular rate and rhythm. Normal peripheral pulses. ABDOMEN: Soft, nontender, nondistended. EXTREMITIES: Normal range of motion. No edema. SKIN: Warm, dry, no rash. NEURO: Alert and oriented x3. PSYCH: Normal mood and affect. Course Course Emergency Course: Patient quickly hypoxic with any sort of exertion at the bedside. Admit to hospitalist service. X-ray with pneumonia. Antibiotics ordered. Care coordination is involved in patient care. Vital Signs Vital signs: Vital Signs Temperature 98.2 F 12/24/24 13:18 Pulse Rate 81 12/24/24 13:18 Respiratory Rate 16 12/24/24 13:18 Blood Pressure 99/64 L 12/24/24 13:18 Pulse Oximetry 85 L 12/24/24 13:18 Temperature 97.8 F 12/24/24 20:00 Pulse Rate 77 12/24/24 20:52 Respiratory Rate 18 12/24/24 20:52 Blood Pressure 108/62 12/24/24 20:00 Pulse Oximetry 95 12/24/24 20:46 Oxygen Delivery Nasal Cannula 12/24/24 20:46 Oxygen Flow Rate 3 12/24/24 20:46 MDM - SOB/Dyspnea Lab Data 12/24/24 15:23 12/24/24 15:23 Labs: Lab Results 12/24/24 Range/Units 15:23 WBC 5.3 (4.5-10.0) K/mm3 RBC 3.17 L (4.2-5.4) M/mm3 Hgb 10.1 L (12.0-15.0) g/dL Hct 31.3 L (37.0-47.0) % MCV 98.7 (80-100) fl MCH 31.9 (26-34) pg MCHC 32.3 (32-36) g/dl RDW 16.5 H (11.5-14.5) % Plt Count 107 L (150-375) k/mm3 MPV 9.3 (7.4-10.4) fl Immature Gran % (Auto) 0.6 H (0-0.5) % Neut % (Auto) 58.9 (45.5-73.1) % Lymph % (Auto) 19.6 (18.3-44.2) % [place] % (Auto) 15.8 H (2.6-8.5) % Eos % (Auto) 3.8 (0-4.4) % Baso % (Auto) 1.3 H (0.2-1.2) % Lymph # (Auto) 1.03 (0.9-3.2) K/mm3 [place] # (Auto) 0.8 H (0.1-0.6) K/mm3 Eos # (Auto) 0.2 (0-0.3) K/mm3 Baso # (Auto) 0.1 (0.0-0.1) K/mm3 Abs Immat Gran (auto) 0.03 (0.00-0.031) K/mm3 Absolute Neuts (auto) 3.1 (1.3-6.7) K/mm3 Absolute Nucleated RBC 0.000 (0.0-0.012) K/mm3 Nucleated RBC % 0.0 (0.0-0.2) % % Immature Plt Fraction 2.2 (0.9-11.2) % PT 13.2 (11.1-14.7) Seconds INR 1.0 APTT 26.2 (22.3-36.8) Seconds Sodium 129 L (137-145) mmol/L Potassium 3.9 (3.4-5.0) mmol/L Chloride 102 (98-107) mmol/L Carbon Dioxide 20 L (22-30) mmol/L Anion Gap 7 (4-12) mmol/L BUN 22 H D (7-17) mg/dL Creatinine 1.11 H (0.7-1.0) mg/dL Estim Creat Clear Calc Not Reportable Estimated GFR 51 L (59 - ) Glucose 90 (65-110) mg/dL Calcium 8.4 (8.4-10.2) mg/dL Total Bilirubin 3.3 H (0.2-1.3) mg/dL AST 38 H (14-36) U/L ALT 19 (6-35) U/L Alkaline Phosphatase 186 H (38-126) U/L Ammonia 18 (9-30) umol/L Total Protein 7.0 (6.3-8.2) g/dL Albumin 3.3 L (3.5-5.1) g/dL Ethyl Alcohol < 10 (<10) mg/dL Imaging Data Radiologist's impression: ITS Impressions Chest X-Ray 12/24/24 14:34 Impression: Early bilateral pneumonia Discharge Plan Discharge Clinical Impression: Pneumonia Patient Disposition: Still a Patient Condition: Stable
--- NOTE | 2024-12-24 14:53 | PCCCNOTE ---
Called to the ED to speak with pt. regarding her medications and oxygen needs. Respiratory called to do a home evaluation. Pt was satting 80% on 6L after standing up at the bedside. Dr. Bashir notified. [facility] in [place] is where pt. was residing until she signed out AMA this morning. I called them to get a copy of her medication list. They will fax this to the ED. Their phone number is [phone]. I spoke with pt regarding her plans at discharge. She said she was going to live with her father in [place], but was unsure of a ride. She will need oxygen at home, due to her requiring 3L at her baseline.
[2024-12-24 15:35] LABS: Hematocrit 31.3 % (37.0-47.0); Hemoglobin 10.1 g/dL (12.0-15.0); Immature Granulocyte Percent A 0.6 % (0-0.5); Immature Platelet Fraction Pct 2.2 % (0.9-11.2); Lymphocytes Absolute Auto 1.03 K/mm3 (0.9-3.2); Mean Corpuscular HGB Conc 32.3 g/dl (32-36); Mean Corpuscular Hemoglobin 31.9 pg (26-34); Mean Corpuscular Volume 98.7 fl (80-100); Nucleated Red Blood Cells Absolute Auto 0.000 K/mm3 (0.0-0.012); Nucleated Red Blood Cells Perc 0.0 % (0.0-0.2); Platelet Count Result 107 k/mm3 (150-375); Red Blood Count 3.17 M/mm3 (4.2-5.4); White Blood Count 5.3 K/mm3 (4.5-10.0)
[2024-12-24 15:47] LABS: Alanine Aminotransferase 19 U/L (6-35); Albumin Level 3.3 g/dL (3.5-5.1); Alkaline Phosphatase 186 U/L (38-126); Ammonia 18 umol/L (9-30); Anion Gap 7 mmol/L (4-12); Aspartate Amino Transferase 38 U/L (14-36); Bilirubin,Total 3.3 mg/dL (0.2-1.3); Blood Urea Nitrogen 22 mg/dL (7-17); Calcium 8.4 mg/dL (8.4-10.2); Carbon Dioxide 20 mmol/L (22-30); Chloride 102 mmol/L (98-107); Estimated Glomerular Filt Rate 51; Glucose 90 mg/dL (65-110); Potassium 3.9 mmol/L (3.4-5.0); Sodium 129 mmol/L (137-145); Total Protein 7.0 g/dL (6.3-8.2)
[2024-12-24 16:49] LABS: INR 1.0; Partial Thromboplastin Time 26.2 Seconds (22.3-36.8); Prothrombin Time 13.2 Seconds (11.1-14.7)
--- NOTE | 2024-12-24 16:49 | P.HP_ITS ---
H&P: HPI History of Present Illness Date/Time: 12/24/24 16:49 Chief Complaint: Shortness of breath Narrative: 50-year-old female past medical history of BACON, ascites, hypothyroidism, portal hypertension, thrombocytopenia, who left AMA from a rehab facility today without oxygen complains of shortness of breath. Patient has been at rehab since May states about 2 weeks ago they stopped during therapy so she left today. Patient had been on 3 L nasal oxygen while at rehab due to liver issues. Patient states that on the car ride home her lips started turning blue so her friend prior to the emergency room for further evaluation. Patient states that she was complaining at rehab over frequent coughing increased shortness of breath. She states that they told her she needed to sleep with more pillows. Patient states that she is on heart meds and diuretics however she does not know which ones they are. Denies fever and chills nausea vomiting. Hemoglobin of 10.1, sodium of 129, carbon dioxide 28, BUN of 22, creatinine of 1.11 with baseline being about 0.7, GFR 51, total bili 3.3, AST 38, alkaline phos 186, ethanol level negative. Chest x-ray shows early pneumonia. Patient was started on azithromycin and Rocephin in the ED. she was given 20 mg IV Lasix for her ascites. Review of Systems Review of Systems: 12 systems were reviewed and are negativ e except for as per HPI. 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 She has 1 child at the daughter and she states that the daughter had recently moved. She also states she did have her primary however primary recently left. She does wish to be a full code. All code status is were reviewed with the patient including DNR, DNI current pressors, BiPAP and CPAP. Patient wishes to be a full code at that time. She also likes her friend Franko to be her surrogate. Smoking packs per day: 0.5 Smoking cigarettes per day: 10.0 Years smoked: 5 Smoking pack-years: 2.50 Smoking status: Former smoker Tobacco type: cigarettes Smoking end date: 11/26/23 Alcohol intake: former Drinks per week: 4 Substance use: never Substance use type: does not use Do You Feel Safe in your Home?: Yes Lack of Transportation: YES Lack of Food: Often True Current Housing: I Have Housing Concerned About Future Housing: No Difficulty Paying Gas/Electric Bills: No Difficulty Paying for Meds: No Currently Unemployed: No Education: High School Diploma/GED Difficulty w/ Childcare or Family Care: No Living arrangements: with family Occupation/Education: other Additional occupation/education comments: disability Gender identity (if verbalized by the patient): Female Sexual Orientation (if Verbalized by the Patient): Straight or Heterosexual Spiritual care concerns: No Agree to blood products: Yes Meds Home Medications and Allergies Home Medications ?Medication ?Instructions ?Recorded ?Confirmed ?Type levothyroxine 200 mcg tablet 200 mcg PO DAILY 06/27/23 02/08/24 History calcium 600 mg (as carbonate)-vit 1 tablet PO DAILY 02/08/24 History D3 10 mcg (400 unit)-minerals tablet mecobalamin (vitamin B12) 1,000 1,000 mcg PO DAILY 01/2102/08/24 History mcg chewable tablet (B12 Active) acetaminophen 500 mg capsule 1,000 mg (2 x 500 mg) PO Q6H PRN 03/09/24 12/24/24 Rx pain #30 caps ibuprofen 600 mg tablet 600 mg PO TID PRN pain #30 t abs 03/09/24 Rx lactulose 10 gram/15 mL oral 30 ml PO Q6H liver failur e 12/24/24 12/24/24 History solution levothyroxine 175 mcg tablet 175 mcg PO .daily 5 History Allergies Allergy/AdvReac Type Severity Reaction Status Date / Time amoxicillin Allergy Hives Verified 02/08/24 01:28 latex Allergy Rash Verified 02/08/24 01:28 Penicillins Allergy Hives Verified 02/08/24 01:28 hydromorphone (From Dilaudid) AdvReac Itching Verified 02/08/24 03:42 Vital Signs Vital Signs - 24 hr 12/24/24 13:18 12/24/24 14:18 12/24/24 14:23 Temperature 98.2 F Pulse Rate 81 74 Respiratory Rate 16 Blood Pressure 99/64 L Pulse Oximetry 85 L 93 Oxygen Delivery Nasal Cannula Oxygen Flow Rate 3 Exam Narrative: General: Chronically ill-appearing HEENT: normocephalic, atraumatic. Mucous membranes moist. EOMI, PERRLA, bilateral sclera anicteric, no conjunctival injection. Neck supple without JVD, lymphadenopathy, or bruit. Respiratory: Diminished to ascultation bilaterally. No rales/rhonic/wheezes. Cardiovascular: Regular rate and rhythm, normal S1-S2 upon ascultation. No murmurs, rubs, or clicks. PMI is nondisplaced, capillary refill less than 3 second. Abdomen: Distended semi firm, positive fluid wave. No rebound, no guarding., no hepatosplenomegaly. Bowel sounds present to all four quadrants. No high pitch or tinkling sounds, resonant to percussion. Extremities: No cyanosis, clubbing, . Pulses are palpable 2/2. Active ROM to all four extremities. Neuro: Alert and orientated x 4. PERRLA. Cranial nerves 2-12 intact without focal deficit. Skin: Warm, dry, and intact, without rash, erythema, or lesion. Psych: pleasant, cooperative, normal speech, normal affect, no hallucinations, no dysarthia H&P: Results Labs Labs: Short CBC 12/24/24 Range/Units 15:23 WBC 5.3 (4.5-10.0) K/mm3 Hgb 10.1 L (12.0-15.0) g/dL Hct 31.3 L (37.0-47.0) % Plt Count 107 L (150-375) k/mm3 BMP 12/24/24 15:23 Sodium 129 L Potassium 3.9 Chloride 102 Carbon Dioxide 20 L BUN 22 H D Creatinine 1.11 H Glucose 90 Calcium 8.4 Liver Function 12/24/24 Range/Units 15:23 Total Bilirubin 3.3 H (0.2-1.3) mg/dL AST 38 H (14-36) U/L ALT 19 (6-35) U/L Alkaline Phosphatase 186 H (38-126) U/L Albumin 3.3 L (3.5-5.1) g/dL Assessment and Plan Assessment and plan (1) Pneumonia: Code(s): J18.9 - Pneumonia, unspecified organism Status: Acute Assessment and Plan: IV Rocephin and azithromycin DuoNebs Guaifenesin Incentive spirometry (2) Hypoxia: Code(s): R09.02 - Hypoxemia Status: Acute Assessment and Plan: Wean oxygen as able (3) Hyponatremia: Code(s): E87.1 - Hypo-osmolality and hyponatremia Status: Acute Assessment and Plan: Patient given Lasix Repeat CMP in the morning (4) Abdominal ascites: Code(s): R18.8 - Other ascites Status: Acute Assessment and Plan: Patient was supposed to have a tap however she left AMA No need for paracentesis over the weekend Lasix Patient states that she is on diuretics but does not know which ones they were will do Lasix until we get updated med list (5) ALIREZA (acute kidney injury): Code(s): N17.9 - Acute kidney failure, unspecified Status: Acute Assessment and Plan: Avoiding IVF due to patient being fluid overloaded BMP in the morning to monitor Avoid nephrotoxic medications (6) 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: Code(s): K75.81 - Nonalcoholic steatohepatitis (BACON); K74.60 - Unspecified cirrhosis of liver Status: Acute Assessment and Plan: Trend CMP Continue lactulose (7) 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
[2024-12-24] MEDS: cefTRIAXone 1 GM in SODIUM CHLORIDE 0.9% IV 50 ML 100 ML IVPB (17:16)
[2024-12-24] MEDS: AZITHROMYCIN IV 500 MG in SODIUM CHLORIDE 0.9% IV 250 ML IVPB (17:18)
[2024-12-24] MEDS: FUROSEMIDE INJ 40 MG/4 ML VIAL 20 MG IV PUSH (17:20)
--- NOTE | 2024-12-24 18:52 | PC.NURSE ---
Patient is a poor historian for medications. The patient left her facility this morning because she didn't feel they were taking adequate care of her. As a result, she is unsure which medications she takes or why she takes them. She was a resident at [facility]. RN has called the facility but was unable to reach staff for communicating a med list at 18:57 on 12/24/24.
[2024-12-24] MEDS: guaiFENesin 12 HR 600 MG TABCR 1200 MG PO (20:21)
[2024-12-24] MEDS: IPRATROPIUM 0.5 MG/ALBUTEROL SULFATE 2.5 MG AMPUL.NEB 3 ML INHALATION (20:42)
[2024-12-25] VITALS (17 sets, daily range): BP systolic 108–120; BP diastolic 53–68; PULSE 77–100; RESP 15–22; TEMP 36.3–36.8; O2SAT 90–98
[2024-12-25] MEDS: IPRATROPIUM 0.5 MG/ALBUTEROL SULFATE 2.5 MG AMPUL.NEB 3 ML INHALATION ×4 (02:19→20:50)
[2024-12-25] MEDS: LACTULOSE 20 GM/30 ML UDC PO ×3 (04:49→16:55)
[2024-12-25 05:37] LABS: Hematocrit 27.0 % (37.0-47.0); Hemoglobin 8.5 g/dL (12.0-15.0); Immature Granulocyte Percent A 0.5 % (0-0.5); Immature Platelet Fraction Pct 2.1 % (0.9-11.2); Lymphocytes Absolute Auto 0.77 K/mm3 (0.9-3.2); Mean Corpuscular HGB Conc 31.5 g/dl (32-36); Mean Corpuscular Hemoglobin 32.1 pg (26-34); Mean Corpuscular Volume 101.9 fl (80-100); Nucleated Red Blood Cells Absolute Auto 0.000 K/mm3 (0.0-0.012); Nucleated Red Blood Cells Perc 0.0 % (0.0-0.2); Platelet Count Result 84 k/mm3 (150-375); Red Blood Count 2.65 M/mm3 (4.2-5.4); White Blood Count 4.3 K/mm3 (4.5-10.0)
[2024-12-25 05:57] LABS: Alanine Aminotransferase 13 U/L (6-35); Albumin Level 2.5 g/dL (3.5-5.1); Alkaline Phosphatase 118 U/L (38-126); Anion Gap 6 mmol/L (4-12); Aspartate Amino Transferase 31 U/L (14-36); Bilirubin,Total 3.1 mg/dL (0.2-1.3); Blood Urea Nitrogen 21 mg/dL (7-17); Calcium 8.0 mg/dL (8.4-10.2); Carbon Dioxide 18 mmol/L (22-30); Chloride 105 mmol/L (98-107); Estimated CRCL calculation 67 ml/min; Estimated Glomerular Filt Rate 58; Glucose 75 mg/dL (65-110); Potassium 3.5 mmol/L (3.4-5.0); Sodium 129 mmol/L (137-145); Total Protein 5.6 g/dL (6.3-8.2)
--- NOTE | 2024-12-25 09:43 | P.PNIM_ITS ---
Progress Note: A&P Assessment and Plan (1) Pneumonia: Code(s): J18.9 - Pneumonia, unspecified organism Status: Acute Assessment and Plan: IV Rocephin and azithromycin DuoNebs Guaifenesin Incentive spirometry Encourage ambulation (2) Hypoxia: Code(s): R09.02 - Hypoxemia Status: Acute Assessment and Plan: At baseline of 3 L (3) Hyponatremia: Code(s): E87.1 - Hypo-osmolality and hyponatremia Status: Acute Assessment and Plan: Patient given Lasix Repeat CMP in the morning BUN elevated and remains hyponatremic Repeat lasix (4) Abdominal ascites: Qualifiers: Ascites type: other type Qualified Code(s): R18.8 - Other ascites Code(s): R18.8 - Other ascites Status: Acute Assessment and Plan: Patient was supposed to have a tap however she left AMA No need for paracentesis over the weekend Lasix given in ED resume home bumex (5) ALIREZA (acute kidney injury): Code(s): N17.9 - Acute kidney failure, unspecified Status: Acute Assessment and Plan: Avoiding IVF due to patient being fluid overloaded Avoid nephrotoxic medications creatinine back at baseline (6) 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: Code(s): K75.81 - Nonalcoholic steatohepatitis (BACON); K74.60 - Unspecified cirrhosis of liver Status: Acute Assessment and Plan: Trend CMP Continue lactulose (7) 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 Patient has been at rehab since May about 2 weeks ago they stopped during therapy so she left today. Patient had been on 3 L nasal oxygen while at rehab due to liver issues. Patient states that on the car ride home her lips started turning blue so her friend brought her to the emergency room for further evaluation. Patient states that she was complaining at rehab over frequent coughing increased shortness of breath for the past 2 weeks. She states that they told her she needed to sleep with more pillows. Patient states that she is on heart meds and diuretics however she does not know which ones they are. Jason es fever and chills nausea vomiting. In the ED, Hgb 10.1, Na 129, carbon dioxide 28, BUN of 22, creatinine of 1.11 with baseline being about 0.7, GFR 51, total bili 3.3, AST 38, alkaline phos 186, ethanol level negative. Chest x-ray shows early pneumonia. Patient was started on azithromycin and Rocephin in the ED. she was given 20 mg IV Lasix for her ascites. Patient states she feels better today. Explains she left [facility] at ?the request of her liver doctor.? She is unable to tell me the name of her dog or animal sitter but tells me she is located at [facility]. She further tells me she is being worked up to hopefully get placed on the liver transplant list. Review of Systems Review of Systems: negative except for as per HPI. Exam Narrative: General: Chronically ill-appearing HEENT: normocephalic, atraumatic. Mucous membranes moist. PERRLA, bilateral sclera anicteric, no conjunctival injection. Neck supple without JVD, Respiratory: Diminished to ascultation bilaterally. No rales/rhonic/wheezes. Cardiovascular: RRR, S1-S2. No murmurs, rubs, or clicks. capillary refill less than 3 second. Abdomen: Distended semi firm, positive fluid wave. No rebound, no guarding., no hepatosplenomegaly. Bowel sounds present to all four quadrants. No high pitch or tinkling sounds, resonant to percussion. Reducible umbilical hernia present Extremities: No cyanosis, clubbing, . Pulses are palpable 2/2. Active ROM to all four extremities. Plus two pitting edema to bilateral lower extremities Neuro: Alert and orientated x 4. PERRLA. Cranial nerves 2-12 intact without focal deficit. Skin: Warm, dry, and intact, without rash, erythema, or lesion. Psych: pleasant, cooperative, normal speech, normal affect, no hallucinations, no dysarthia Objective Data Vital Signs Vital Signs: Vital Signs - 24 hr 12/24/24 13:18 12/24/24 14:18 12/24/24 14:23 Temperature 98.2 F Pulse Rate 81 74 Respiratory Rate 16 Blood Pressure 99/64 L Pulse Oximetry 85 L 93 Oxygen Delivery Nasal Cannula Oxygen Flow Rate 3 12/24/24 15:35 12/24/24 15:45 12/24/24 16:30 Temperature Pulse Rate 73 77 75 Respiratory Rate 12 13 14 Blood Pressure 115/73 121/105 H 91/74 L Pulse Oximetry 98 96 99 Oxygen Delivery Oxygen Flow Rate 12/24/24 17:15 12/24/24 18:03 12/24/24 20:00 Temperature 97.8 F Pulse Rate 73 77 Respiratory Rate 17 20 Blood Pressure 103/69 108/62 Pulse Oximetry 98 96 100 Oxygen Delivery Nasal Cannula Oxygen Flow Rate 3 12/24/24 20:00 12/24/24 20:42 12/24/24 20:46 Temperature Pulse Rate 79 Respiratory Rate 18 Blood Pressure Pulse Oximetry 100 95 Oxygen Delivery Nasal Cannula Nasal Cannula Oxygen Flow Rate 3 3 12/24/24 20:52 12/24/24 23:36 12/25/24 02:20 Temperature 97.4 F L Pulse Rate 77 78 80 Respiratory Rate 18 16 18 Blood Pressure 93/54 L Pulse Oximetry 95 Oxygen Delivery Oxygen Flow Rate 12/25/24 02:29 12/25/24 04:00 12/25/24 08:00 Temperature 97.3 F L 98.2 F Pulse Rate 79 93 80 Respiratory Rate 18 18 16 Blood Pressure 109/66 112/53 L Pulse Oximetry 90 93 Oxygen Delivery Oxygen Flow Rate 12/25/24 08:06 12/25/24 08:06 12/25/24 08:11 Temperature Pulse Rate 79 84 Respiratory Rate 16 15 Blood Pressure Pulse Oximetry 94 Oxygen Delivery Nasal Cannula Oxygen Flow Rate 3 Intake/Output Intake/Output: Intake & Output 12/22/24 12/23/24 12/24/24 12/25/24 23:59 23:59 23:59 23:59 Intake Total 50 540 Balance 50 540 Meds/Results Medications: Active Medications Generic Name Dose Route Start Last Admin Trade Name Freq PRN Reason Stop Dose Admin Albuterol/Ipratropium 3 ml 12/24/24 20:00 12/25/24 08:04 Ipratropium 0.5 Mg/Albuterol Sulfate 2.5 Mg Ampul.Neb 3 Ml INHALATION 3 ml Q6HRT LENNY Administration Docusate Sodium 100 mg 12/24/24 17:01 Docusate Sodium 100 Mg Capsule PO BID PRN Constipation Guaifenesin 1,200 mg 12/24/24 21:00 12/24/24 20:21 Guaifenesin 12 Hr 600 Mg Tabcr PO 1,200 mg Q12HR LENNY Administration Ceftriaxone Sodium 1 gm/ 50 mls @ 100 mls/hr 12/25/24 17:00 Sodium Chloride IVPB Q24H LENNY Azithromycin 500 mg/ Sodium 250 mls @ 250 mls/hr 12/25/24 18:00 Chloride IVPB 12/28/24 18:59 Q24H LENNY Lactulose 20 gm 12/24/24 21:00 12/25/24 04:49 Lactulose 20 Gm/30 Ml Udc PO 20 gm Q6H LENNY Administration Promethazine HCl 12.5 mg 12/24/24 16:06 Promethazine Hcl 25 Mg/Ml Ampul IV PUSH Q6H PRN Nausea Radiology Results: ITS Impressions Chest X-Ray 12/24/24 14:34 Impression: Early bilateral pneumonia Labs Labs: Laboratory Results - last 24 hr 12/24/24 12/25/24 15:23 04:36 WBC 5.3 4.3 L RBC 3.17 L 2.65 L Hgb 10.1 L 8.5 L Hct 31.3 L 27.0 L MCV 98.7 101.9 H MCH 31.9 32.1 MCHC 32.3 31.5 L RDW 16.5 H 16.6 H Plt Count 107 L 84 L MPV 9.3 9.7 Immature Gran % (Auto) 0.6 H 0.5 Neut % (Auto) 58.9 56.9 Lymph % (Auto) 19.6 18.1 L [place] % (Auto) 15.8 H 18.6 H Eos % (Auto) 3.8 4.7 H Baso % (Auto) 1.3 H 1.2 Lymph # (Auto) 1.03 0.77 L [place] # (Auto) 0.8 H 0.8 H Eos # (Auto) 0.2 0.2 Baso # (Auto) 0.1 0.1 Abs Immat Gran (auto) 0.03 0.02 Absolute Neuts (auto) 3.1 2.4 Absolute Nucleated RBC 0.000 0.000 Nucleated RBC % 0.0 0.0 % Immature Plt Fraction 2.2 2.1 PT 13.2 INR 1.0 APTT 26.2 Sodium 129 L 129 L Potassium 3.9 3.5 Chloride 102 105 Carbon Dioxide 20 L 18 L Anion Gap 7 6 BUN 22 H D 21 H Creatinine 1.11 H 0.99 Estim Creat Clear Calc Not Reportable 67 Estimated GFR 51 L 58 L Glucose 90 75 Calcium 8.4 8.0 L Total Bilirubin 3.3 H 3.1 H AST 38 H 31 ALT 19 13 Alkaline Phosphatase 186 H 118 Ammonia 18 Total Protein 7.0 5.6 L Albumin 3.3 L 2.5 L Ethyl Alcohol < 10 Quality VTE Prophylaxis VTE prophylaxis: mechanical ordered
[2024-12-25] MEDS: guaiFENesin 12 HR 600 MG TABCR 1200 MG PO ×2 (10:54→20:27)
[2024-12-25] MEDS: BUMETANIDE 1 MG TABLET 2 MG PO (12:44)
[2024-12-25] MEDS: FUROSEMIDE INJ 40 MG/4 ML VIAL 20 MG IV PUSH (12:44)
[2024-12-25] MEDS: oxyCODONE HCL (*CRX) 5 MG TAB IR PO ×2 (12:53→20:28)
[2024-12-25] MEDS: cefTRIAXone 1 GM in SODIUM CHLORIDE 0.9% IV 50 ML 100 ML IVPB (17:46)
[2024-12-25] MEDS: AZITHROMYCIN IV 500 MG in SODIUM CHLORIDE 0.9% IV 250 ML IVPB (18:20)
[2024-12-25] MEDS: PANTOPRAZOLE 40 MG TABLET PO (20:28)
[2024-12-26] VITALS (15 sets, daily range): BP systolic 100–109; BP diastolic 48–63; PULSE 75–93; RESP 16–86; TEMP 36.5–36.8; O2SAT 92–94
[2024-12-26] MEDS: IPRATROPIUM 0.5 MG/ALBUTEROL SULFATE 2.5 MG AMPUL.NEB 3 ML INHALATION ×4 (02:25→19:41)
[2024-12-26] MEDS: LACTULOSE 20 GM/30 ML UDC PO ×4 (03:55→21:14)
[2024-12-26] MEDS: LEVOTHYROXINE SODIUM 125 MCG TABLET PO (05:50)
--- NOTE | 2024-12-26 08:06 | P.PNIM_ITS ---
Progress Note: A&P Assessment and Plan (1) Pneumonia: Code(s): J18.9 - Pneumonia, unspecified organism Status: Acute Assessment and Plan: IV Rocephin and azithromycin DuoNebs Guaifenesin Incentive spirometry Encourage ambulation on azithro/rocephin- will continue (2) Hypoxia: Code(s): R09.02 - Hypoxemia Status: Acute Assessment and Plan: At baseline of 3 L (3) Hyponatremia: Code(s): E87.1 - Hypo-osmolality and hyponatremia Status: Acute Assessment and Plan: Patient given Lasix Repeat CMP in the morning BUN elevated and remains hyponatremic Repeat lasix will order labs this am to re eval electrolytes (4) Abdominal ascites: Qualifiers: Ascites type: other type Qualified Code(s): R18.8 - Other ascites Code(s): R18.8 - Other ascites Status: Acute Assessment and Plan: Patient was supposed to have a tap however she left AMA No need for paracentesis over the weekend Lasix given in ED resume home bumex paracentesis ordered-unsure if can be done today, if not-friday in tx (5) ALIREZA (acute kidney injury): Code(s): N17.9 - Acute kidney failure, unspecified Status: Acute Assessment and Plan: Avoiding IVF due to patient being fluid overloaded Avoid nephrotoxic medications creatinine back at baseline labs ordered this am (6) 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: Code(s): K75.81 - Nonalcoholic steatohepatitis (BACON); K74.60 - Unspecified cirrhosis of liver Status: Acute Assessment and Plan: Trend CMP Continue lactulose (7) 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: Code(s): E06.3 - Autoimmune thyroiditis Status: Acute Assessment and Plan: -home levothyroxine (8) Thrombocytopenia: Code(s): D69.6 - Thrombocytopenia, unspecified Status: Acute Assessment and Plan: Chronic No signs of acute bleeding at this time Time Spent With Patient Time with patient: 25 - 35 minutes Subjective Date/time seen: 12/26/24 08:06 Interval history: 50-year-old female past medical history of BACON, ascites, hypothyroidism, portal hypertension, thrombocytopenia, who left AMA from a rehab facility ([facility]) today without oxygen complains of shortness of breath. Patient has been at rehab since May about 2 weeks ago they stopped during therapy so she left today. Patient had been on 3 L nasal oxygen while at rehab due to liver issues. Patient states that on the car ride home her lips started turning blue so her friend brought her to the emergency room for further evaluation. Patient states that she was complaining at rehab over frequent coughing increased shortness of breath for the past 2 weeks. She states that they told her she needed to sleep with more pillows. Patient states that she is on heart meds and diuretics however she does not know which ones they are. Denies fever and chills nausea vomiting. In the ED, Hgb 10.1, Na 129, carbon dioxide 28, BUN of 22, creatinine of 1.11 with baseline being about 0.7, GFR 51, total bili 3.3, AST 38, alkaline phos 186, ethanol level negative. Chest x-ray shows early pneumonia. Patient was started on azithromycin and Rocephin in the ED. she was given 20 mg IV Lasix for her ascites. Patient states she feels better today. Explains she left [facility] at ?the request of her liver doctor.? She is unable to tell me the name of her gis coordinator but tells me she is located at [facility]. She further tells me she is being worked up to hopefully get placed on the liver transplant list. Assuming care. PT is seen and examined. She is resting in bed, reports sob and feels taht she is full, she missed her paracentesis hannah. She denies any other issues- no chest pain, no n/v/d. Review of Systems Review of Systems: negative except for as per HPI. Exam Narrative: General: Chronically ill-appearing, calm, in no distress. HEENT: normocephalic, atraumatic. Mucous membranes moist. PERRLA, bilateral sclera anicteric, no conjunctival injection. Neck supple without JVD, Respiratory: Diminished to ascultation bilaterally. No rales/rhonic/wheezes. Cardiovascular: RRR, S1-S2. No murmurs, rubs, or clicks. capillary refill less than 3 second. Abdomen: Distended semi firm, positive fluid wave. No rebound, no guarding., no hepatosplenomegaly. Bowel sounds present to all four quadrants. No high pitch or tinkling sounds, resonant to percussion. Reducible umbilical hernia present Extremities: No cyanosis, clubbing, . Pulses are palpable 2/2. Active ROM to all four extremities. Plus two pitting edema to bilateral lower extremities Neuro: Alert and orientated x 4. PERRLA. Cranial nerves 2-12 intact without focal deficit. Skin: Warm, dry, and intact, without rash, erythema, or lesion. Psych: pleasant, cooperative, normal speech, normal affect, no hallucinations, no dysarthia Const: General: comfortable Objective Data Vital Signs Vital Signs: Vital Signs - 24 hr 12/25/24 08:11 12/25/24 10:55 12/25/24 12:00 Temperature 97.9 F Pulse Rate 84 77 Respiratory Rate 15 20 Blood Pressure 120/68 Pulse Oximetry 95 98 Oxygen Delivery Nasal Cannula Oxygen Flow Rate 3 12/25/24 13:42 12/25/24 13:47 12/25/24 16:00 Temperature 98.1 F Pulse Rate 79 79 85 Respiratory Rate 16 16 22 H Blood Pressure 114/60 Pulse Oximetry 96 Oxygen Delivery Oxygen Flow Rate 12/25/24 17:46 12/25/24 20:00 12/25/24 20:50 Temperature Pulse Rate 85 100 77 Respiratory Rate 16 16 Blood Pressure Pulse Oximetry 93 Oxygen Delivery Nasal Cannula Oxygen Flow Rate 2 12/25/24 20:59 12/25/24 21:00 12/25/24 22:19 Temperature 98.2 F Pulse Rate 80 100 Respiratory Rate 16 16 Blood Pressure 108/53 L Pulse Oximetry 95 93 Oxygen Delivery Nasal Cannula Oxygen Flow Rate 3 12/26/24 01:00 12/26/24 02:25 12/26/24 02:35 Temperature 97.7 F Pulse Rate 91 76 77 Respiratory Rate 18 16 16 Blood Pressure 104/60 Pulse Oximetry 94 Oxygen Delivery Oxygen Flow Rate 12/26/24 03:53 Temperature 97.9 F Pulse Rate 90 Respiratory Rate 16 Blood Pressure 106/59 L Pulse Oximetry 94 Oxygen Delivery Oxygen Flow Rate Intake/Output Intake/Output: Intake & Output 12/23/24 12/24/24 12/25/24 12/26/24 23:59 23:59 23:59 23:59 Intake Total 50 3560 550 Balance 50 3560 550 Meds/Results Medications: Active Medications Generic Name Dose Route Start Last Admin Trade Name Freq PRN Reason Stop Dose Admin Albuterol/Ipratropium 3 ml 12/24/24 20:00 12/26/24 02:25 Ipratropium 0.5 Mg/Albuterol Sulfate 2.5 Mg Ampul.Neb 3 Ml INHALATION 3 ml Q6HRT LENNY Administration Bumetanide 2 mg 12/25/24 11:25 12/25/24 12:44 Bumetanide 1 Mg Tablet PO 2 mg DAILY LENNY Administration Carvedilol 3.125 mg 12/25/24 17:00 12/25/24 17:46 Carvedilol 3.125 Mg Tablet PO 3.125 mg BID LENNY Administration Docusate Sodium 100 mg 12/24/24 17:01 Docusate Sodium 100 Mg Capsule PO BID PRN Constipation Folic Acid 1 mg 12/26/24 09:00 Folic Acid 1 Mg Tablet PO DAILY LENNY Guaifenesin 1,200 mg 12/24/24 21:00 12/25/24 20:27 Guaifenesin 12 Hr 600 Mg Tabcr PO 1,200 mg Q12HR LENNY Administration Ceftriaxone Sodium 1 gm/ 50 mls @ 100 mls/hr 12/25/24 17:00 12/25/24 18:16 Sodium Chloride IVPB Infused Q24H LENNY Infusion Azithromycin 500 mg/ Sodium 250 mls @ 250 mls/hr 12/25/24 18:00 12/25/24 19:20 Chloride IVPB 12/28/24 18:59 Infused Q24H LENNY Infusion Lactulose 20 gm 12/24/24 21:00 12/26/24 03:55 Lactulose 20 Gm/30 Ml Udc PO 20 gm Q6H LENNY Administration Levothyroxine Sodium 125 mcg 12/26/24 06:30 12/26/24 05:50 Levothyroxine Sodium 125 Mcg Tablet PO 125 mcg DAILY@0630 [facility] Administration Oxycodone HCl 5 mg 12/25/24 11:13 12/25/24 20:28 Oxycodone Hcl (*Crx) 5 Mg Tab Ir PO 5 mg Q6H PRN Administration moderate to severe pain Pantoprazole Sodium 40 mg 12/25/24 21:00 12/25/24 20:28 Pantoprazole 40 Mg Tablet PO 40 mg Q12HR [facility] Administration Potassium Chloride 20 meq 12/26/24 09:00 Potassium Chloride 10 Meq Er Tablet PO 01/25/25 08:59 DAILY [facility] Promethazine HCl 12.5 mg 12/24/24 16:06 Promethazine Hcl 25 Mg/Ml Ampul IV PUSH Q6H PRN Nausea Rifaximin 550 mg 12/25/24 17:00 12/25/24 17:46 Rifaximin 550 Mg Tablet PO 550 mg BID [facility] Administration Vitamin D 25 mcg 12/26/24 09:00 Cholecalciferol (Vitamin D3) 25 Mcg (1,000 Units) Tablet PO DAILY [facility] Radiology Results: ITS Impressions Chest X-Ray 12/24/24 14:34 Impression: Early bilateral pneumonia Quality VTE Prophylaxis VTE prophylaxis: mechanical ordered
[2024-12-26 08:33] LABS: Hematocrit 29.3 % (37.0-47.0); Hemoglobin 9.5 g/dL (12.0-15.0); Immature Platelet Fraction Pct 1.8 % (0.9-11.2); Mean Corpuscular HGB Conc 32.4 g/dl (32-36); Mean Corpuscular Hemoglobin 32.1 pg (26-34); Mean Corpuscular Volume 99.0 fl (80-100); Platelet Count Result 103 k/mm3 (150-375); Red Blood Count 2.96 M/mm3 (4.2-5.4); White Blood Count 4.8 K/mm3 (4.5-10.0)
[2024-12-26 08:53] LABS: Anion Gap 6 mmol/L (4-12); Blood Urea Nitrogen 20 mg/dL (7-17); Calcium 8.4 mg/dL (8.4-10.2); Carbon Dioxide 20 mmol/L (22-30); Chloride 104 mmol/L (98-107); Estimated CRCL calculation 63 ml/min; Estimated Glomerular Filt Rate 55; Glucose 86 mg/dL (65-110); Potassium 3.5 mmol/L (3.4-5.0); Sodium 130 mmol/L (137-145)
[2024-12-26] MEDS: BUMETANIDE 1 MG TABLET 2 MG PO (10:36)
[2024-12-26] MEDS: CHOLECALCIFEROL (VITAMIN D3) 25 MCG (1,000 UNITS) TABLET PO (10:37)
[2024-12-26] MEDS: FOLIC ACID 1 MG TABLET PO (10:37)
[2024-12-26] MEDS: PANTOPRAZOLE 40 MG TABLET PO ×2 (10:37→21:14)
[2024-12-26] MEDS: guaiFENesin 12 HR 600 MG TABCR 1200 MG PO ×2 (10:37→21:13)
[2024-12-26] MEDS: POTASSIUM CHLORIDE 10 MEQ ER TABLET 20 MEQ PO (10:37)
[2024-12-26] MEDS: cefTRIAXone 1 GM in SODIUM CHLORIDE 0.9% IV 50 ML 100 ML IVPB (17:42)
[2024-12-26] MEDS: AZITHROMYCIN IV 500 MG in SODIUM CHLORIDE 0.9% IV 250 ML 125 ML IVPB (18:22)
[2024-12-27] VITALS (12 sets, daily range): BP systolic 94–111; BP diastolic 48–52; PULSE 80–90; RESP 16–20; TEMP 36.6–37.1; O2SAT 92–96
--- NOTE | 2024-12-27 02:59 | PCRCNOTE ---
Window of time for administration has passed. See next scheduled administration.
[2024-12-27] MEDS: LEVOTHYROXINE SODIUM 125 MCG TABLET PO (05:58)
[2024-12-27] MEDS: IPRATROPIUM 0.5 MG/ALBUTEROL SULFATE 2.5 MG AMPUL.NEB 3 ML INHALATION ×2 (07:59→19:55)
--- NOTE | 2024-12-27 12:42 | PM.DS ---
DS: Admitting Diagnosis Discharge Date 12/27/24 Admitting Diagnosis ALIREZA DS: Summary Hospital Course Hospital Course: 50-year-old female past medical history of BACON, ascites, hypothyroidism, portal hypertension, thrombocytopenia, who left AMA from a rehab facility ([facility]) today without oxygen complains of shortness of breath. Patient has been at rehab since May states about 2 weeks ago they stopped during therapy so she left today. Patient had been on 3 L nasal oxygen while at rehab due to liver issues. Patient states that on the car ride home her lips started turning blue so her friend brought her to the emergency room for further evaluation. Patient states that she was complaining at rehab over frequent coughing increased shortness of breath for the past 2 weeks. She states that they told her she needed to sleep with more pillows. Patient states that she is on heart meds and diuretics however she does not know which ones they are. Denies fever and chills nausea vomiting. In the ED, Hgb 10.1, Na 129, carbon dioxide 28, BUN of 22, creatinine of 1.11 with baseline being about 0.7, GFR 51, total bili 3.3, AST 38, alkaline phos 186, ethanol level negative. Chest x-ray shows early pneumonia. Patient was started on azithromycin and Rocephin in the ED. she was given 20 mg IV Lasix for her ascites. Patient states she feels better today. Explains she left [facility] at ?the request of her liver doctor.? She is unable to tell me the name of her reference test clerk but tells me she is located at [facility]. She further tells me she is being worked up to hopefully get placed on the liver transplant list. Paracentesis today with 5 L removed. Time Spent with Patient Time attestation: Total time spent providing and/or coordinating discharge services: Time spent: Greater than 30 minutes Exam Narrative: General: Chronically ill-appearing, calm, in no distress. HEENT: normocephalic, atraumatic. Mucous membranes moist. PERRLA, bilateral sclera anicteric, no conjunctival injection. Neck supple without JVD, Respiratory: Diminished to ascultation bilaterally. No rales/rhonic/wheezes. Cardiovascular: RRR, S1-S2. No murmurs, rubs, or clicks. capillary refill less than 3 second. Abdomen: Distended semi firm, positive fluid wave. No rebound, no guarding., no hepatosplenomegaly. Bowel sounds present to all four quadrants. No high pitch or tinkling sounds, resonant to percussion. Reducible umbilical hernia present Extremities: No cyanosis, clubbing, . Pulses are palpable 2/2. Active ROM to all four extremities. Plus two pitting edema to bilateral lower extremities Neuro: Alert and orientated x 4. PERRLA. Cranial nerves 2-12 intact without focal deficit. Skin: Warm, dry, and intact, without rash, erythema, or lesion. Psych: pleasant, cooperative, normal speech, normal affect, no hallucinations, no dysarthia Const: General: comfortable Discharge Plan Discharge Attending physician on discharge: Gilbert Sargent Consulting providers: Corey Díaz Discharging Clinician: Louann Carranza Patient Disposition: Home Activity: july shower Diet: as tolerated Discharge Instructions: You were see for shortness of breath with pneumonia. Your home medications as well as antibiotics were sent to your pharmacy. Please make sure that you take all of your antibiotics. Patient Instructions: Antibiotic Form Patient Language: Tunisian Stand Alone Forms: General Discharge Information Follow-up/Referrals: Sue,MD Caio [Primary Care Provider, Unknown] Referral Note: Please call to make an appointment Discharge Medications: New oxycodone 5 mg capsule 5 mg PO Q6H PRN (Reason: pain) Qty: 6 0RF docusate sodium 100 mg Capsule 100 mg PO BID PRN (Reason: Constipation) Qty: 0 0RF lactulose 10 gram/15 mL Solution 20 g PO Q6H 30 Days Qty: 0 0RF carvedilol [Coreg] 3.125 mg Tablet 3.125 mg PO BID Qty: 0 0RF folic acid 1 mg Tablet 1 mg PO DAILY Qty: 0 0RF pantoprazole 40 mg Tablet,Delayed Release (Dr/Ec) 40 mg PO Q12HR Qty: 0 0RF bumetanide 1 mg Tablet 2 mg PO DAILY Qty: 0 0RF azithromycin 500 mg Tablet 500 mg PO QHS 2 Days Qty: 0 0RF cefdinir 300 mg Capsule 300 mg PO Q12HR Qty: 0 0RF levothyroxine [Synthroid] 125 mcg Tablet 125 mcg PO DAILY@0630 Qty: 0 0RF Xifaxan 550 mg Tablet 550 mg PO BID Qty: 0 0RF Continued bumetanide 2 mg tablet 2 mg PO DAILY carvedilol 3.125 mg tablet 3.125 mg PO BID Rx Instructions: must administer with a meal/food potassium chloride 10 mEq capsule, extended release 20 meq PO DAILY Discontinued acetaminophen 500 mg capsule 1,000 mg PO Q6H PRN (Reason: pain) Qty: 30 0RF levothyroxine 200 mcg tablet 200 mcg PO DAILY lactulose 10 gram/15 mL solution 30 ml PO Q6H levothyroxine 175 mcg tablet 175 mcg PO .daily cholecalciferol (vitamin D3) 25 mcg (1,000 unit) capsule 1,000 unit PO DAILY clotrimazole 1 % ointment 1 applic topical BID Patient Comments: applied to lips lactulose [Enulose] 10 gram/15 mL solution 10 g PO QID Patient Comments: give 45 mL by mouth 4 times a day for constipation folic acid 1 mg tablet 1 mg PO DAILY levothyroxine 125 mcg capsule 125 mcg PO DAILY mupirocin [Centany] 2 % ointment 1 applic topical TID omeprazole 20 mg capsule,delayed release(DR/EC) 20 mg PO BID oxycodone 5 mg tablet 5 mg PO Q6H PRN (Reason: moderate to severe pain) ketoconazole 2 % shampoo 1 applic topical 2XW Rx Instructions: apply to scalp topically every day shift every . and Fri. ketoconazole 2 % cream 1 applic topical BID Rx Instructions: apply to affected reddened areas topically rifaximin 550 mg tablet 550 mg PO BID Date of admission: 12/24/24 16:06 Primary Care Provider: Sue,Caio Admitting Provider: George Marquez Attending physician on admission: George Marquez Condition: Stable Quality VTE Prophylaxis VTE prophylaxis: mechanical ordered Hospitalist MIPS Heart Failure (Exclusion) Patient has history of Heart Transplant or Left Ventricular Assistive Device?: No IF YES, STOP HERE Heart Failure (Qualifier) Patient has current or prior documentation of LVEF less than or equal to 40%, or mod/servere depressed LVSF?: No IF NO, STOP HERE
--- NOTE | 2024-12-27 15:05 | P.PNIM_ITS ---
Progress Note: A&P Assessment and Plan (1) Pneumonia: Code(s): J18.9 - Pneumonia, unspecified organism Status: Acute Assessment and Plan: IV Rocephin and azithromycin DuoNebs Guaifenesin Incentive spirometry Encourage ambulation on azithro/rocephin- transition to PO (2) Hypoxia: Code(s): R09.02 - Hypoxemia Status: Acute Assessment and Plan: At baseline of 3 L O2 eval: Patient requiring 3 L at rest and 6 L with activity No discharge today d/t high O2 requirement with activity. PT ordered Up to chair with all meals Continue to encourage IS use (3) Hyponatremia: Code(s): E87.1 - Hypo-osmolality and hyponatremia Status: Acute Assessment and Plan: Patient given Lasix Repeat CMP in the morning BUN elevated and remains hyponatremic Repeat lasix will order labs this am to re eval electrolytes (4) Abdominal ascites: Qualifiers: Ascites type: other type Qualified Code(s): R18.8 - Other ascites Code(s): R18.8 - Other ascites Status: Acute Assessment and Plan: Patient was supposed to have a tap however she left AMA No need for paracentesis over the weekend Lasix given in ED resume home bumex paracentesis ordered-unsure if can be done today, if not-friday in tx Paracentesis compleated with 5L removed (5) ALIREZA (acute kidney injury): Code(s): N17.9 - Acute kidney failure, unspecified Status: Acute Assessment and Plan: Avoiding IVF due to patient being fluid overloaded Avoid nephrotoxic medications creatinine back at baseline labs ordered this am Trend CMP (6) 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: Code(s): K75.81 - Nonalcoholic steatohepatitis (BACON); K74.60 - Unspecified cirrhosis of liver Status: Acute Assessment and Plan: Trend CMP Continue lactulose (7) 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: Code(s): E06.3 - Autoimmune thyroiditis Status: Acute Assessment and Plan: -home levothyroxine (8) Thrombocytopenia: Code(s): D69.6 - Thrombocytopenia, unspecified Status: Acute Assessment and Plan: Chronic No signs of acute bleeding at this time Time Spent With Patient Time with patient: 25 - 35 minutes Subjective Date/time seen: 12/27/24 15:05 Interval history: 50-year-old female past medical history of BACON, ascites, hypothyroidism, portal hypertension, thrombocytopenia, who left [facility] from a rehab facility ([facility]) today without oxygen complains of shortness of breath. Patient has been at rehab since May about 2 weeks ago they stopped during therapy so she left today. Patient had been on 3 L nasal oxygen while at rehab due to liver issues. Patient states that on the car ride home her lips started turning blue so her friend brought her to the emergency room for further evaluation. Patient states that she was complaining at rehab over frequent coughing increased shortness of breath for the past 2 weeks. She states that they told her she needed to sleep with more pillows. Patient states that she is on heart meds and diuretics however she does not know which ones they are. Denies fever and chills nausea vomiting. In the ED, Hgb 10.1, Na 129, carbon dioxide 28, BUN of 22, creatinine of 1.11 with baseline being about 0.7, GFR 51, total bili 3.3, AST 38, alkaline phos 186, ethanol level negative. Chest x-ray shows early pneumonia. Patient was started on azithromycin and Rocephin in the ED. she was given 20 mg IV Lasix for her ascites. Patient states she feels better today. Explains she left [facility] at ?the request of her liver doctor.? She is unable to tell me the name of her inside sales lead but tells me she is located at [facility]. She further tells me she is being worked up to hopefully get placed on the liver transplant list. Assuming care. PT is seen and examined. She is resting in bed, reports sob and feels taht she is full, she missed her paracentesis hannah. She denies any other issues- no chest pain, no n/v/d. 12/27: No new complaints. Resting comfortably in bed. Is ambulating in room but feels short of breath with activity. Review of Systems Review of Systems: negative except for as per HPI. Exam Narrative: General: Chronically ill-appearing, calm, in no distress. HEENT: normocephalic, atraumatic. Mucous membranes moist. PERRLA, bilateral sclera anicteric, no conjunctival injection. Neck supple without JVD, Respiratory: Diminished to ascultation bilaterally. No rales/rhonic/wheezes. Cardiovascular: RRR, S1-S2. No murmurs, rubs, or clicks. capillary refill less than 3 second. Abdomen: Distended semi firm, positive fluid wave. No rebound, no guarding., no hepatosplenomegaly. Bowel sounds present to all four quadrants. No high pitch or tinkling sounds, resonant to percussion. Reducible umbilical hernia present Extremities: No cyanosis, clubbing, . Pulses are palpable 2/2. Active ROM to all four extremities. Plus two pitting edema to bilateral lower extremities Neuro: Alert and orientated x 4. PERRLA. Cranial nerves 2-12 intact without focal deficit. Skin: Warm, dry, and intact, without rash, erythema, or lesion. Psych: pleasant, cooperative, normal speech, normal affect, no hallucinations, no dysarthia Const: General: comfortable Objective Data Vital Signs Vital Signs: Vital Signs - 24 hr 12/26/24 15:21 12/26/24 15:29 12/26/24 16:00 Temperature 98.2 F Pulse Rate 84 80 87 Respiratory Rate 18 18 20 Blood Pressure 106/59 L Pulse Oximetry 93 Oxygen Delivery Oxygen Flow Rate 12/26/24 17:41 12/26/24 19:41 12/26/24 19:50 Temperature Pulse Rate 87 75 75 Respiratory Rate 16 16 Blood Pressure Pulse Oximetry Oxygen Delivery Oxygen Flow Rate 12/26/24 20:00 12/26/24 20:00 12/26/24 23:42 Temperature 98.2 F 98.2 F Pulse Rate 90 89 Respiratory Rate 17 17 Blood Pressure 100/54 L 109/48 L Pulse Oximetry 93 93 93 Oxygen Delivery Nasal Cannula Oxygen Flow Rate 3 12/27/24 03:40 12/27/24 08:00 12/27/24 08:00 Temperature 97.9 F 98.4 F Pulse Rate 86 89 89 Respiratory Rate 18 16 18 Blood Pressure 100/48 L 111/52 L Pulse Oximetry 94 92 Oxygen Delivery Oxygen Flow Rate 12/27/24 08:06 12/27/24 08:07 12/27/24 09:40 Temperature Pulse Rate 89 90 Respiratory Rate 18 16 Blood Pressure Pulse Oximetry 92 92 Oxygen Delivery Nasal Cannula Nasal Cannula Oxygen Flow Rate 3 3 12/27/24 12:13 Temperature 98.7 F Pulse Rate 81 Respiratory Rate 18 Blood Pressure 94/52 L Pulse Oximetry 93 Oxygen Delivery Oxygen Flow Rate Intake/Output Intake/Output: Intake & Output 12/24/24 12/25/24 12/26/24 12/27/24 23:59 23:59 23:59 23:59 Intake Total 50 3560 4610 Output Total 5000 Balance 50 3560 4610 -5000 Meds/Results Medications: Active Medications Generic Name Dose Route Start Last Admin Trade Name Freq PRN Reason Stop Dose Admin Albuterol/Ipratropium 3 ml 12/24/24 20:00 12/27/24 07:59 Ipratropium 0.5 Mg/Albuterol Sulfate 2.5 Mg Ampul.Neb 3 Ml INHALATION 3 ml Q6HRT [facility] Administration Azithromycin 500 mg 12/27/24 21:00 Azithromycin 500 Mg Tablet PO 12/28/24 21:01 QHS LENNY Bumetanide 2 mg 12/25/24 11:25 12/27/24 14:43 Bumetanide 1 Mg Tablet PO Not Given DAILY [facility] Carvedilol 3.125 mg 12/25/24 17:00 12/27/24 14:42 Carvedilol 3.125 Mg Tablet PO Not Given BID [facility] Cefdinir 300 mg 12/27/24 21:00 Cefdinir 300 Mg Capsule PO 12/29/24 09:01 Q12HR LENNY Docusate Sodium 100 mg 12/24/24 17:01 Docusate Sodium 100 Mg Capsule PO BID PRN Constipation Folic Acid 1 mg 12/26/24 09:00 12/27/24 14:43 Folic Acid 1 Mg Tablet PO Not Given DAILY [facility] Guaifenesin 1,200 mg 12/24/24 21:00 12/27/24 14:43 Guaifenesin 12 Hr 600 Mg Tabcr PO Not Given Q12HR [facility]ENNY Lactulose 20 gm 12/24/24 21:00 12/27/24 14:43 Lactulose 20 Gm/30 Ml Udc PO Not Given Q6H [facility] Levothyroxine Sodium 125 mcg 12/26/24 06:30 12/27/24 05:58 Levothyroxine Sodium 125 Mcg Tablet PO 125 mcg DAILY@0630 [facility] Administration Oxycodone HCl 5 mg 12/25/24 11:13 12/25/24 20:28 Oxycodone Hcl (*Crx) 5 Mg Tab Ir PO 5 mg Q6H PRN Administration moderate to severe pain Pantoprazole Sodium 40 mg 12/25/24 21:00 12/27/24 14:43 Pantoprazole 40 Mg Tablet PO Not Given Q12HR [facility] Potassium Chloride 20 meq 12/26/24 09:00 12/27/24 14:43 Potassium Chloride 10 Meq Er Tablet PO 01/25/25 08:59 Not Given DAILY [facility] Promethazine HCl 12.5 mg 12/24/24 16:06 Promethazine Hcl 25 Mg/Ml Ampul IV PUSH Q6H PRN Nausea Rifaximin 550 mg 12/25/24 17:00 12/27/24 14:43 Rifaximin 550 Mg Tablet PO Not Given BID [facility] Vitamin D 25 mcg 12/26/24 09:00 12/27/24 14:43 Cholecalciferol (Vitamin D3) 25 Mcg (1,000 Units) Tablet PO Not Given DAILY [facility] Radiology Results: ITS Impressions Chest X-Ray 12/24/24 14:34 Impression: Early bilateral pneumonia Paracentesis Ultrasound 12/27/24 14:33 IMPRESSION: 1. Successful ultrasound-guided paracentesis yielding 5000 mL of clear straw- colored fluid. Quality VTE Prophylaxis VTE prophylaxis: mechanical ordered
--- NOTE | 2024-12-27 15:28 | PCRCNOTE ---
Home O2 eval done, pt sats on 3 liters resting 98%, on 6 liters with exertion, sats dropped into low-mid 80s, unable to keep oxygenated with exertion on 6 liter nasal canula. Louann Carranza APRN and RN notified, will recheck her tommorrow.
[2024-12-27] MEDS: CEFDINIR 300 MG CAPSULE PO (21:02)
[2024-12-27] MEDS: AZITHROMYCIN 500 MG TABLET PO (21:02)
[2024-12-27] MEDS: LACTULOSE 20 GM/30 ML UDC PO (21:03)
[2024-12-27] MEDS: guaiFENesin 12 HR 600 MG TABCR 1200 MG PO (21:03)
[2024-12-27] MEDS: PANTOPRAZOLE 40 MG TABLET PO (21:03)
[2024-12-27] MEDS: oxyCODONE HCL (*CRX) 5 MG TAB IR PO (22:15)
[2024-12-28] VITALS (17 sets, daily range): BP systolic 103–110; BP diastolic 45–60; PULSE 73–92; RESP 16–22; TEMP 36.4–36.8; O2SAT 91–94
--- NOTE | 2024-12-28 | ECHO_ITS ---
Patient Info Name: Nasreen Orozco Age: 54 years : 1970 Gender: Female Ht: 67 in Wt: 202 lbs BSA: 2.11 m2 HR: 85 bpm BP: 110 / 60 mmHg Technical Quality: Good Exam Date: 12/28/2024 2:43 PM Patient Status: O Admit Date: 12/24/2024 Exam Type: CA echo doppler color flow Complete two-dimensional, color flow and Doppler transthoracic echocardiogram is performed. Staff Referring Physician: Louann Carranza Drop Crew Laborer: Vincenzo Walton III Attending Provider: George Marquez Summary 1. Complete two-dimensional, color flow and Doppler transthoracic echocardiogram is performed. 2. Left ventricular systolic function is normal, estimated at 50-55. 3. Left ventricular chamber dimension is mildly enlarged. 4. The left ventricular diastolic function is indeterminate. Left Ventricle Left ventricular chamber dimension is mildly enlarged. Left ventricular systolic function is normal, estimated at 50-55. There is no increased left ventricular wall thickness. Left ventricular septal wall motion is normal. The left ventricular diastolic function is indeterminate. Right Ventricle Right ventricular chamber dimension is normal. Right ventricular systolic function is normal. Left Atria Left atrial chamber dimension is normal. Right Atria Right atrial chamber dimension is normal. Aortic Valve The aortic valve is trileaflet. There is no aortic valve sclerosis. There is no aortic valve stenosis. There is no aortic valve regurgitation. Pulmonic Valve The pulmonic valve is normal. There is no pulmonic valve stenosis. There is no pulmonic regurgitation. Mitral Valve The mitral valve has normal leaflets. There is no mitral valve stenosis. There is no mitral valve regurgitation. Tricuspid Valve The tricuspid valve leaflets are normal. There is no significant tricuspid valve stenosis. There is no tricuspid valve regurgitation. Pericardium/Pleural The pericardium appears normal. There is no pericardial effusion. Inferior Vena Cava Normal inferior vena cava with >50% collapse upon inspiration consistent with normal right atrial pressure, 5 mmHg. Aorta The aortic root size at the sinus of Valsalva is normal. The prox ascending aorta size is normal. Left Ventricular Outflow Tract Name Value Normal LVOT 2D LVOT Diameter 2.3 cm LVOT Doppler LVOT Peak Velocity 123 cm/s LVOT Peak Gradient 6 mmHg LVOT Mean Gradient 3 mmHg LVOT VTI 25 cm LVOT VTI/AV VTI Ratio 0.9 LVOT Stroke Volume 106 ml LVOT CO 7.9 l/min LVOT CI 3.7 l/min/m2 Pulmonic Valve Name Value Normal PV Doppler PV Peak Velocity 85 cm/s PV Peak Gradient 3 mmHg PV Mean Gradient 2 mmHg Mitral Valve Name Value Normal MV Doppler MV Peak Gradient 3 mmHg MV Mean Gradient 2 mmHg MV Area (Cont Eq VTI) 5.0 cm2 MV Regurgitation Doppler MR Peak Gradient 84 mmHg MV Diastolic Function MV E Peak Velocity 76 cm/s MV A Peak Velocity 64 cm/s MV E/A 1.2 MV Decel Time (PW) 218 ms MV Annular TDI MV E/e' (Septal) 6.8 MV E/e' (Lateral) 5.2 MV E/e' (Average) 6.0 Tricuspid Valve Name Value Normal Estimated PAP/RSVP RA Pressure 5 mmHg <=5 TV Annular TDI TV Lateral Kay s' Velocity 19.0 cm/s >=9.5 Aortic Valve Name Value Normal AV Doppler AV Peak Velocity 131 cm/s AV Peak Gradient 7 mmHg AV Mean Gradient 4 mmHg AV VTI 26 cm AV Area (Cont Eq VTI) 4.0 cm2 >=3.0 AV Area (Cont Eq [place]) 4.0 cm2 AV DI ([place]) 0.93 AV Regurgitation 2D LVOT Area 4.3 cm2 Ventricles Name Value Normal LV Dimensions 2D/MM IVS Diastolic Thickness (2D) 1.0 cm 0.6-1.0 LVID Diastole (2D) 5.1 cm 3.8-5.2 LVIW Diastolic Thickness (2D) 1.0 cm 0.6-0.9 LVID Systole (2D) 3.5 cm 2.2-3.5 LVOT Diameter 2.3 cm LV Mass (2D Cubed) 189.52 g 67.00-162.00 LV Mass Index (2D Cubed) 90 g/m2 43-95 Relative Wall Thickness (2D) 0.40 <=0.42 LV Fractional Shortening/Ejection Fraction 2D/MM LV Fractional Shortening (2D) 31 % 27-45 LV EF (2D Teichholz) 58 % LV Diastolic Volume (4C MOD) 119 ml LV EF (4C MOD) 58 % LV Diastolic Volume (2C MOD) 127 ml LV EF (2C MOD) 53 % LV Diastolic Volume (BP MOD) 128 ml 46-106 LV Diastolic Volume Index (BP MOD) 60 ml/m2 29-61 LV Systolic Volume (BP MOD) 56 ml 14-42 LV Systolic Volume Index (BP MOD) 26 ml/m2 8-24 LV EF (BP MOD) 56 % 54-74 LV Diastolic Length (4C) 8.0 cm LV Systolic Length (4C) 6.9 cm LV Stroke Volume (4C MOD) 69 ml Atria Name Value Normal LA Dimensions LA Volume (4C A-L) 45 ml LA Volume (BP A-L) 64 ml RA Dimensions RA Systolic Major [place] Length (4C) 4.0 cm 2.2-2.8 RA Area (4C) 15.4 cm2 <=18.0 Report Signatures
[2024-12-28] MEDS: IPRATROPIUM 0.5 MG/ALBUTEROL SULFATE 2.5 MG AMPUL.NEB 3 ML INHALATION ×4 (01:36→20:42)
[2024-12-28] MEDS: LACTULOSE 20 GM/30 ML UDC PO ×3 (03:50→21:58)
[2024-12-28] MEDS: LEVOTHYROXINE SODIUM 125 MCG TABLET PO (05:39)
[2024-12-28] MEDS: ONDANSETRON INJ 4 MG/2 ML VIAL IV PUSH (09:39)
[2024-12-28] MEDS: PANTOPRAZOLE 40 MG TABLET PO ×2 (09:44→21:58)
[2024-12-28] MEDS: guaiFENesin 12 HR 600 MG TABCR 1200 MG PO ×2 (09:44→21:57)
[2024-12-28] MEDS: BUMETANIDE 1 MG TABLET 2 MG PO (09:44)
[2024-12-28] MEDS: POTASSIUM CHLORIDE 10 MEQ ER TABLET 20 MEQ PO (09:44)
[2024-12-28] MEDS: FOLIC ACID 1 MG TABLET PO (09:45)
[2024-12-28] MEDS: CEFDINIR 300 MG CAPSULE PO ×2 (09:45→21:58)
[2024-12-28] MEDS: CHOLECALCIFEROL (VITAMIN D3) 25 MCG (1,000 UNITS) TABLET PO (09:45)
--- NOTE | 2024-12-28 09:59 | P.PNIM_ITS ---
Progress Note: A&P Assessment and Plan (1) Pneumonia: Code(s): J18.9 - Pneumonia, unspecified organism Status: Acute Assessment and Plan: IV Rocephin and azithromycin DuoNebs Guaifenesin Incentive spirometry Encourage ambulation on azithro/rocephin- transition to PO Follow up CXR 12/28/24 shows early basilar pneumonia (2) Hypoxia: Code(s): R09.02 - Hypoxemia Status: Acute Assessment and Plan: At baseline of 3 L O2 eval: Patient requiring 3 L at rest and 6 L with activity No discharge today d/t high O2 requirement with activity. PT ordered Up to chair with all meals Continue to encourage IS use Follow-up CXR ordered ECHO ordered (3) Hyponatremia: Code(s): E87.1 - Hypo-osmolality and hyponatremia Status: Acute Assessment and Plan: Patient given Lasix Repeat CMP in the morning BUN elevated and remains hyponatremic Repeat lasix will order labs this am to re eval electrolytes (4) Abdominal ascites: Qualifiers: Ascites type: other type Qualified Code(s): R18.8 - Other ascites Code(s): R18.8 - Other ascites Status: Acute Assessment and Plan: Patient was supposed to have a tap however she left AMA No need for paracentesis over the weekend Lasix given in ED resume home bumex paracentesis ordered-unsure if can be done today, if not-friday in co Paracentesis compleated 12/27 with 5L removed (5) ALIREZA (acute kidney injury): Code(s): N17.9 - Acute kidney failure, unspecified Status: Acute Assessment and Plan: Avoiding IVF due to patient being fluid overloaded Avoid nephrotoxic medications creatinine back at baseline labs ordered this am Trend CMP (6) 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: Code(s): K75.81 - Nonalcoholic steatohepatitis (BACON); K74.60 - Unspecified cirrhosis of liver Status: Chronic Assessment and Plan: Trend CMP Continue lactulose (7) 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 Patient has been at rehab since May about 2 weeks ago they stopped during therapy so she left today. Patient had been on 3 L nasal oxygen while at rehab due to liver issues. Patient states that on the car ride home her lips started turning blue so her friend brought her to the emergency room for further evaluation. Patient states that she was complaining at rehab over frequent coughing increased shortness of breath for the past 2 weeks. She states that they told her she needed to sleep with more pillows. Patient states that she is on heart meds and diuretics however she does not know which ones they are. Denies fever and chills nausea vomiting. In the ED, Hgb 10.1, Na 129, carbon dioxide 28, BUN of 22, creatinine of 1.11 with baseline being about 0.7, GFR 51, total bili 3.3, AST 38, alkaline phos 186, ethanol level negative. Chest x-ray shows early pneumonia. Patient was started on azithromycin and Rocephin in the ED. she was given 20 mg IV Lasix for her ascites. Patient states she feels better today. Explains she left [facility] at ?the request of her liver doctor.? She is unable to tell me the name of her deputy program manager but tells me she is located at [facility]. She further tells me she is being worked up to hopefully get placed on the liver transplant list. Assuming care. PT is seen and examined. She is resting in bed, reports sob and feels taht she is full, she missed her paracentesis hannah. She denies any other issues- no chest pain, no n/v/d. 12/27: No new complaints. Resting comfortably in bed. Is ambulating in room but feels short of breath with activity. 12/28: Feels more dyspneic today. States she was barely able to complete PT eval. Had some nausea this morning. No complaints of pain. Review of Systems Review of Systems: negative except for as per HPI. Exam Narrative: General: Chronically ill-appearing HEENT: normocephalic, atraumatic. Mucous membranes moist. PERRLA, bilateral sclera anicteric, no conjunctival injection. Neck supple without JVD, Respiratory: Diminished to ascultation bilaterally. No rales/rhonic/wheezes. Cardiovascular: RRR, S1-S2. No murmurs, rubs, or clicks. capillary refill less than 3 second. Abdomen: Distended and soft, positive fluid wave. No rebound, no guarding., no hepatosplenomegaly. Bowel sounds present to all four quadrants. No high pitch or tinkling sounds, resonant to percussion. Reducible umbilical hernia present Extremities: No cyanosis, clubbing, . Pulses are palpable 2/2. Active ROM to all four extremities. +1 pitting edema to bilateral lower extremities Neuro: Alert and orientated x 4. PERRLA. Cranial nerves 2-12 intact without focal deficit. Skin: Warm, dry, and intact, without rash, erythema, or lesion. Psych: pleasant, cooperative, normal speech, normal affect, no hallucinations, no dysarthia Const: General: comfortable Objective Data Vital Signs Vital Signs: Vital Signs - 24 hr 12/27/24 12:13 12/27/24 17:37 12/27/24 19:43 Temperature 98.7 F 98.4 F Pulse Rate 81 81 81 Respiratory Rate 18 17 Blood Pressure 94/52 L 104/51 L Pulse Oximetry 93 96 Oxygen Delivery Oxygen Flow Rate 12/27/24 19:55 12/27/24 19:55 12/27/24 20:00 Temperature Pulse Rate 80 80 Respiratory Rate 20 20 Blood Pressure Pulse Oximetry 95 94 Oxygen Delivery Nasal Cannula Nasal Cannula Oxygen Flow Rate 3 4 12/27/24 20:10 12/27/24 23:49 12/28/24 01:36 Temperature 98.1 F Pulse Rate 84 84 88 Respiratory Rate 20 17 22 H Blood Pressure 103/51 L Pulse Oximetry 95 Oxygen Delivery Oxygen Flow Rate 12/28/24 01:36 12/28/24 01:55 12/28/24 03:40 Temperature 98.3 F Pulse Rate 88 90 85 Respiratory Rate 22 H 20 16 Blood Pressure 104/49 L Pulse Oximetry 93 94 Oxygen Delivery Nasal Cannula Oxygen Flow Rate 4 12/28/24 07:35 12/28/24 07:35 12/28/24 08:00 Temperature 98.3 F Pulse Rate 92 85 Respiratory Rate 20 16 Blood Pressure 110/60 Pulse Oximetry 94 92 Oxygen Delivery Nasal Cannula Oxygen Flow Rate 3 12/28/24 09:20 12/28/24 09:44 Temperature Pulse Rate 85 Respiratory Rate Blood Pressure Pulse Oximetry Oxygen Delivery Nasal Cannula Oxygen Flow Rate 3 Intake/Output Intake/Output: Intake & Output 12/25/24 12/26/24 12/27/24 12/28/24 23:59 23:59 23:59 23:59 Intake Total 3560 4610 1190 120 Output Total 5000 Balance 3560 4610 -3810 120 Meds/Results Medications: Active Medications Generic Name Dose Route Start Last Admin Trade Name Freq PRN Reason Stop Dose Admin Albuterol/Ipratropium 3 ml 12/24/24 20:00 12/28/24 07:34 Ipratropium 0.5 Mg/Albuterol Sulfate 2.5 Mg Ampul.Neb 3 Ml INHALATION 3 ml Q6HRT LENNY Administration Azithromycin 500 mg 12/27/24 21:00 12/27/24 21:02 Azithromycin 500 Mg Tablet PO 12/28/24 21:01 500 mg QHS LENNY Administration Bumetanide 2 mg 12/25/24 11:25 12/28/24 09:44 Bumetanide 1 Mg Tablet PO 2 mg DAILY LENNY Administration Carvedilol 3.125 mg 12/25/24 17:00 12/28/24 09:44 Carvedilol 3.125 Mg Tablet PO 3.125 mg BID ELNNY Administration Cefdinir 300 mg 12/27/24 21:00 12/28/24 09:45 Cefdinir 300 Mg Capsule PO 12/29/24 09:01 300 mg Q12HR LENNY Administration Docusate Sodium 100 mg 12/24/24 17:01 Docusate Sodium 100 Mg Capsule PO BID PRN Constipation Folic Acid 1 mg 12/26/24 09:00 12/28/24 09:45 Folic Acid 1 Mg Tablet PO 1 mg DAILY LENNY Administration Guaifenesin 1,200 mg 12/24/24 21:00 12/28/24 09:44 Guaifenesin 12 Hr 600 Mg Tabcr PO 1,200 mg Q12HR LENNY Administration Lactulose 20 gm 12/24/24 21:00 12/28/24 09:45 Lactulose 20 Gm/30 Ml Udc PO 20 gm Q6H [facility] Administration Levothyroxine Sodium 125 mcg 12/26/24 06:30 12/28/24 05:39 Levothyroxine Sodium 125 Mcg Tablet PO 125 mcg DAILY@0630 [facility] Administration Ondansetron HCl 4 mg 12/28/24 09:26 12/28/24 09:39 Ondansetron Inj 4 Mg/2 Ml Vial IV PUSH 4 mg Q4H PRN Administration Nausea And Vomiting Oxycodone HCl 5 mg 12/25/24 11:13 12/27/24 22:15 Oxycodone Hcl (*Crx) 5 Mg Tab Ir PO 5 mg Q6H PRN Administration moderate to severe pain Pantoprazole Sodium 40 mg 12/25/24 21:00 12/28/24 09:44 Pantoprazole 40 Mg Tablet PO 40 mg Q12HR LENNY Administration Perflutren Lipid Microsphere 0 ml 12/28/24 09:54 Perflutren Lipid Microspheres 1.5 Ml Vial Diluted To 10 Ml Total Volume IV PUSH 12/31/24 09:57 ONCE PRN adequate visualization Protocol Potassium Chloride 20 meq 12/26/24 09:00 12/28/24 09:44 Potassium Chloride 10 Meq Er Tablet PO 01/25/25 08:59 20 meq DAILY LENNY Administration Promethazine HCl 12.5 mg 12/24/24 16:06 Promethazine Hcl 25 Mg/Ml Ampul IV PUSH Q6H PRN Nausea Rifaximin 550 mg 12/25/24 17:00 12/28/24 09:45 Rifaximin 550 Mg Tablet PO 550 mg BID LENNY Administration Vitamin D 25 mcg 12/26/24 09:00 12/28/24 09:45 Cholecalciferol (Vitamin D3) 25 Mcg (1,000 Units) Tablet PO 25 mcg DAILY LENNY Administration Radiology Results: ITS Impressions Chest X-Ray 12/24/24 14:34 Impression: Early bilateral pneumonia Paracentesis Ultrasound 12/27/24 14:33 IMPRESSION: 1. Successful ultrasound-guided paracentesis yielding 5000 mL of clear straw- colored fluid. Quality VTE Prophylaxis VTE prophylaxis: mechanical ordered
[2024-12-28 10:35] LABS: Hematocrit 29.2 % (37.0-47.0); Hemoglobin 9.2 g/dL (12.0-15.0); Immature Granulocyte Percent A 0.2 % (0-0.5); Immature Platelet Fraction Pct 1.8 % (0.9-11.2); Lymphocytes Absolute Auto 0.85 K/mm3 (0.9-3.2); Mean Corpuscular HGB Conc 31.5 g/dl (32-36); Mean Corpuscular Hemoglobin 31.7 pg (26-34); Mean Corpuscular Volume 100.7 fl (80-100); Nucleated Red Blood Cells Absolute Auto 0.000 K/mm3 (0.0-0.012); Nucleated Red Blood Cells Perc 0.0 % (0.0-0.2); Platelet Count Result 98 k/mm3 (150-375); Red Blood Count 2.90 M/mm3 (4.2-5.4); White Blood Count 4.5 K/mm3 (4.5-10.0)
[2024-12-28 10:44] LABS: Alanine Aminotransferase 15 U/L (6-35); Albumin Level 2.6 g/dL (3.5-5.1); Alkaline Phosphatase 88 U/L (38-126); Anion Gap 5 mmol/L (4-12); Aspartate Amino Transferase 28 U/L (14-36); Bilirubin,Total 3.0 mg/dL (0.2-1.3); Blood Urea Nitrogen 16 mg/dL (7-17); Calcium 8.3 mg/dL (8.4-10.2); Carbon Dioxide 20 mmol/L (22-30); Chloride 104 mmol/L (98-107); Estimated CRCL calculation 72 ml/min; Estimated Glomerular Filt Rate > 60; Glucose 97 mg/dL (65-110); Potassium 3.4 mmol/L (3.4-5.0); Sodium 129 mmol/L (137-145); Total Protein 5.8 g/dL (6.3-8.2)
[2024-12-28 10:51] LABS: NT Pro B Type Natriuretic Pept 186 pg/mL (19.9-100)
[2024-12-28] MEDS: FLUCONAZOLE 150 MG TABLET PO (18:06)
[2024-12-28] MEDS: AZITHROMYCIN 500 MG TABLET PO (21:58)
[2024-12-29] VITALS (15 sets, daily range): BP systolic 98–108; BP diastolic 46–60; PULSE 77–85; RESP 16–20; TEMP 36.8–36.9; O2SAT 92–96
[2024-12-29] MEDS: IPRATROPIUM 0.5 MG/ALBUTEROL SULFATE 2.5 MG AMPUL.NEB 3 ML INHALATION ×4 (02:10→20:42)
[2024-12-29] MEDS: LACTULOSE 20 GM/30 ML UDC PO ×4 (03:42→21:32)
[2024-12-29 05:07] LABS: Hematocrit 26.1 % (37.0-47.0); Hemoglobin 8.3 g/dL (12.0-15.0); Immature Granulocyte Percent A 0.4 % (0-0.5); Immature Platelet Fraction Pct 1.9 % (0.9-11.2); Lymphocytes Absolute Auto 1.01 K/mm3 (0.9-3.2); Mean Corpuscular HGB Conc 31.8 g/dl (32-36); Mean Corpuscular Hemoglobin 31.7 pg (26-34); Mean Corpuscular Volume 99.6 fl (80-100); Nucleated Red Blood Cells Absolute Auto 0.000 K/mm3 (0.0-0.012); Nucleated Red Blood Cells Perc 0.0 % (0.0-0.2); Platelet Count Result 94 k/mm3 (150-375); Red Blood Count 2.62 M/mm3 (4.2-5.4); White Blood Count 4.9 K/mm3 (4.5-10.0)
[2024-12-29 05:17] LABS: Alanine Aminotransferase 12 U/L (6-35); Albumin Level 2.2 g/dL (3.5-5.1); Alkaline Phosphatase 92 U/L (38-126); Anion Gap 5 mmol/L (4-12); Aspartate Amino Transferase 23 U/L (14-36); Bilirubin,Total 2.3 mg/dL (0.2-1.3); Blood Urea Nitrogen 17 mg/dL (7-17); Calcium 7.9 mg/dL (8.4-10.2); Carbon Dioxide 20 mmol/L (22-30); Chloride 104 mmol/L (98-107); Estimated CRCL calculation 69 ml/min; Estimated Glomerular Filt Rate > 60; Glucose 86 mg/dL (65-110); Potassium 3.4 mmol/L (3.4-5.0); Sodium 129 mmol/L (137-145); Total Protein 5.0 g/dL (6.3-8.2)
[2024-12-29] MEDS: LEVOTHYROXINE SODIUM 125 MCG TABLET PO (06:30)
[2024-12-29] MEDS: CEFDINIR 300 MG CAPSULE PO ×2 (08:22→21:31)
[2024-12-29] MEDS: POTASSIUM CHLORIDE 10 MEQ ER TABLET 20 MEQ PO (08:22)
[2024-12-29] MEDS: CHOLECALCIFEROL (VITAMIN D3) 25 MCG (1,000 UNITS) TABLET PO (08:22)
[2024-12-29] MEDS: PANTOPRAZOLE 40 MG TABLET PO ×2 (08:22→21:32)
[2024-12-29] MEDS: FOLIC ACID 1 MG TABLET PO (08:22)
[2024-12-29] MEDS: guaiFENesin 12 HR 600 MG TABCR 1200 MG PO ×2 (08:23→21:31)
--- NOTE | 2024-12-29 09:14 | P.PNIM_ITS ---
Progress Note: A&P Assessment and Plan (1) Pneumonia: Code(s): J18.9 - Pneumonia, unspecified organism Status: Acute Assessment and Plan: Cefdinir complete DuoNebs Guaifenesin Incentive spirometry Encourage ambulation Feeling OK today, states that she is still feeling SOB and fatigued with exertion -->Titrated down to 3L, remained 95% Follow up CXR 12/28/24 shows early basilar pneumonia x2 more days of azithro for adequate coverage (2) Hypoxia: Code(s): R09.02 - Hypoxemia Status: Acute Assessment and Plan: O2 eval: Patient requiring 3 L at rest and 6 L with activity 12/29: 3L NC 95% Will make sure pt with no needs of additional O2 overnight, potential D/C tomorrow PT ordered with recs for SNF, continue to work with while await potential placement Up to chair with all meals Continue to encourage IS use Follow-up CXR 12/28: Yielding same results as 12/24, Early basilar pneumonia ECHO: 1. Complete two-dimensional, color flow and Doppler transthoracic echocardiogram is performed. 2. Left ventricular systolic function is normal, estimated at 50-55. 3. Left ventricular chamber dimension is mildly enlarged. 4. The left ventricular diastolic function is indeterminate. (3) Hyponatremia: Code(s): E87.1 - Hypo-osmolality and hyponatremia Status: Acute Assessment and Plan: Patient given Lasix Repeat CMP in the AMs BUN elevated and remains hyponatremic Repeat lasix will order labs this am to re eval electrolytes 12/29: Na: 129 BUN: 17 WDL, back to baseline -Low NA potentially due to multiple comorbidities -Ordered urine Na (WDL) & urine osmol, mag pending for 12/30. --RN also updated me that when she collected the urine on the pt today, it was dark and cloudy. Will re-send UA to evaluate -Avoiding IVF due to patient being fluid overloaded (4) Abdominal ascites: Qualifiers: Ascites type: other type Qualified Code(s): R18.8 - Other ascites Code(s): R18.8 - Other ascites Status: Acute Assessment and Plan: Patient was supposed to have a tap however she left AMA No need for paracentesis over the weekend Lasix given in ED resume home bumex paracentesis ordered-unsure if can be done today, if not-fr[place] in [place] Paracentesis compleated 12/27 with 5L removed (5) ALIREZA (acute kidney injury): Code(s): N17.9 - Acute kidney failure, unspecified Status: Acute Assessment and Plan: Avoiding IVF due to patient being fluid overloaded Avoid nephrotoxic medications creatinine back at baseline labs ordered this am Trend CMP (6) 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: Code(s): K75.81 - Nonalcoholic steatohepatitis (BACON); K74.60 - Unspecified cirrhosis of liver Status: Chronic Assessment and Plan: Trend CMP Continue lactulose (7) 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: Code(s): E06.3 - Autoimmune thyroiditis Status: Chronic Assessment and Plan: -home levothyroxine (8) Thrombocytopenia: Code(s): D69.6 - Thrombocytopenia, unspecified Status: Chronic Assessment and Plan: Chronic No signs of acute bleeding at this time Continue daily CBC (9) Acute hypotension: Code(s): I95.9 - Hypotension, unspecified Status: Acute Assessment and Plan: Baseline low, 100/50's -RN alerted today 98/52, held AM Bumex and coreg, asymptomatic -VS Q4 hrs, continue to monitor (10) Dysuria: Code(s): R30.0 - Dysuria Status: Acute Assessment and Plan: Pt reporting mild dysuria today as well as a hx of yeast infection with abx use. Pt reports that she feels as if she has a yeast infection. -UA w/reflex ordered -Second Fluconazole dose ordered today, will continue to monitor Plan Daily labs, O2 eval, SOB intervention PRN, monitor dysuria sx, potential D/C Subjective Date/time seen: 12/29/24 1327 Interval history: 50-year-old female past medical history of BACON, ascites, hypothyroidism, portal hypertension, thrombocytopenia, who left AMA from a rehab facility ([facility]) today without oxygen complains of shortness of breath. Patient has been at rehab since May about 2 weeks ago they stopped during therapy so she left today. Patient had been on 3 L nasal oxygen while at rehab due to liver issues. Patient states that on the car ride home her lips started turning blue so her friend brought her to the emergency room for further evaluation. Patient states that she was complaining at rehab over frequent coughing increased shortness of breath for the past 2 weeks. She states that they told her she needed to sleep with more pillows. Patient states that she is on heart meds and diuretics however she does not know which ones they are. Denies fever and chills nausea vomiting. In the ED, Hgb 10.1, Na 129, carbon dioxide 28, BUN of 22, creatinine of 1.11 with baseline being about 0.7, GFR 51, total bili 3.3, AST 38, alkaline phos 186, ethanol level negative. Chest x-ray shows early pneumonia. Patient was started on azithromycin and Rocephin in the ED. she was given 20 mg IV Lasix for her ascites. Patient states she feels better today. Explains she left [facility] at ?the request of her liver doctor.? She is unable to tell me the name of her senior security architect but tells me she is located at [facility]. She further tells me she is being worked up to hopefully get placed on the liver transplant list. Assuming care. PT is seen and examined. She is resting in bed, reports sob and feels taht she is full, she missed her paracentesis hannah. She denies any other issues- no chest pain, no n/v/d. 12/27: No new complaints. Resting comfortably in bed. Is ambulating in room but feels short of breath with activity. 12/28: Feels more dyspneic today. States she was barely able to complete PT eval. Had some nausea this morning. No complaints of pain. 12/29: Pt reports that she is still feeling SOB today, more than her baseline. Titrated down to 3L (pts baseline) and pt maintained a 95% PulseOx. Pt also reports still requiring 6L with exertion. Pt sat up in bed and states that she was fatigued performing that activity. Review of Systems 2 Review of Systems: negative except for as per HPI. Exam Const: General: comfortable Other: Chronically ill-appearing HENMT: Face/Nose/Sinus: Normal nares present Other: tachy mucous membranes Eyes: General: appearance normal, both eyes and all related structures Sclera: sclerae normal Neck: Neck: supple Carotids: no bruits Resp: Auscultation: diminished lung sounds (throughout) Cardio: Other: No edema GI: Inspection: distended Other: Soft, positive fluid wave. Reducible umbilical hernia present Neuro: Motor exam (neuro): 5/5 motor strength present throughout and Normal motor muscle tone present throughout Sensory Exam: normal sensation Extrem: General: normal to inspection Psych: Mental Status: mental status grossly normal Affect: normal affect Objective Data Vital Signs Vital Signs: Vital Signs - 24 hr 12/28/24 09:20 12/28/24 09:44 12/28/24 09:45 Temperature Pulse Rate 85 Respiratory Rate Blood Pressure Pulse Oximetry 92 Oxygen Delivery Nasal Cannula Nasal Cannula Oxygen Flow Rate 3 3 Fraction of Inspired Oxygen 12/28/24 12:00 12/28/24 13:18 12/28/24 16:00 Temperature 97.8 F 97.5 F L Pulse Rate 73 90 92 Respiratory Rate 16 18 18 Blood Pressure 107/57 L 110/54 L Pulse Oximetry 91 94 Oxygen Delivery Oxygen Flow Rate Fraction of Inspired Oxygen 12/28/24 18:06 12/28/24 19:56 12/28/24 19:57 Temperature 98.2 F 98.2 F Pulse Rate 92 74 74 Respiratory Rate 18 18 Blood Pressure 105/45 L 105/45 L Pulse Oximetry 92 92 Oxygen Delivery Oxygen Flow Rate Fraction of Inspired Oxygen 12/28/24 20:00 12/28/24 20:43 12/28/24 20:44 Temperature Pulse Rate 92 81 Respiratory Rate 20 20 Blood Pressure Pulse Oximetry 94 Oxygen Delivery Nasal Cannula Nasal Cannula Oxygen Flow Rate 3 3 Fraction of Inspired Oxygen 32 12/28/24 20:59 12/28/24 23:39 12/29/24 02:10 Temperature 97.5 F L Pulse Rate 90 76 82 Respiratory Rate 20 16 20 Blood Pressure 103/45 L Pulse Oximetry 94 Oxygen Delivery Oxygen Flow Rate Fraction of Inspired Oxygen 12/29/24 02:20 12/29/24 03:58 12/29/24 08:00 Temperature 98.5 F 98.2 F Pulse Rate 85 77 81 Respiratory Rate 20 17 18 Blood Pressure 102/46 L 98/52 L Pulse Oximetry 92 95 Oxygen Delivery Oxygen Flow Rate Fraction of Inspired Oxygen 12/29/24 08:21 12/29/24 09:00 12/29/24 09:02 Temperature Pulse Rate 81 80 Respiratory Rate 20 Blood Pressure Pulse Oximetry 93 Oxygen Delivery Nasal Cannula Oxygen Flow Rate 4 Fraction of Inspired Oxygen 12/29/24 09:06 Temperature Pulse Rate 84 Respiratory Rate 20 Blood Pressure Pulse Oximetry Oxygen Delivery Oxygen Flow Rate Fraction of Inspired Oxygen Intake/Output Intake/Output: Intake & Output 12/26/24 12/27/24 12/28/24 12/29/24 23:59 23:59 23:59 23:59 Intake Total 4610 1190 1300 500 Output Total 5000 Balance 4610 -3810 1300 500 Meds/Results Medications: Active Medications Generic Name Dose Route Start Last Admin Trade Name Freq PRN Reason Stop Dose Admin Albuterol/Ipratropium 3 ml 12/24/24 20:00 12/29/24 09:08 Ipratropium 0.5 Mg/Albuterol Sulfate 2.5 Mg Ampul.Neb 3 Ml INHALATION Not Given Q6HRT [facility] Bumetanide 2 mg 12/25/24 11:25 12/29/24 08:21 Bumetanide 1 Mg Tablet PO Not Given DAILY [facility] Carvedilol 3.125 mg 12/25/24 17:00 12/29/24 08:21 Carvedilol 3.125 Mg Tablet PO Not Given BID [facility]ENNY Docusate Sodium 100 mg 12/24/24 17:01 Docusate Sodium 100 Mg Capsule PO BID PRN Constipation Folic Acid 1 mg 12/26/24 09:00 12/29/24 08:22 Folic Acid 1 Mg Tablet PO 1 mg DAILY LENNY Administration Guaifenesin 1,200 mg 12/24/24 21:00 12/29/24 08:23 Guaifenesin 12 Hr 600 Mg Tabcr PO 1,200 mg Q12HR LENNY Administration Lactulose 20 gm 12/24/24 21:00 12/29/24 08:22 Lactulose 20 Gm/30 Ml Udc PO 20 gm Q6H LENNY Administration Levothyroxine Sodium 125 mcg 12/26/24 06:30 12/29/24 06:30 Levothyroxine Sodium 125 Mcg Tablet PO 125 mcg DAILY@0630 LENNY Administration Ondansetron HCl 4 mg 12/28/24 09:26 12/28/24 09:39 Ondansetron Inj 4 Mg/2 Ml Vial IV PUSH 4 mg Q4H PRN Administration Nausea And Vomiting Oxycodone HCl 5 mg 12/25/24 11:13 12/27/24 22:15 Oxycodone Hcl (*Crx) 5 Mg Tab Ir PO 5 mg Q6H PRN Administration moderate to severe pain Pantoprazole Sodium 40 mg 12/25/24 21:00 12/29/24 08:22 Pantoprazole 40 Mg Tablet PO 40 mg Q12HR LENNY Administration Perflutren Lipid Microsphere 0 ml 12/28/24 09:54 Perflutren Lipid Microspheres 1.5 Ml Vial Diluted To 10 Ml Total Volume IV PUSH 12/31/24 09:57 ONCE PRN adequate visualization Protocol Potassium Chloride 20 meq 12/26/24 09:00 12/29/24 08:22 Potassium Chloride 10 Meq Er Tablet PO 01/25/25 08:59 20 meq DAILY LENNY Administration Promethazine HCl 12.5 mg 12/24/24 16:06 Promethazine Hcl 25 Mg/Ml Ampul IV PUSH Q6H PRN Nausea Rifaximin 550 mg 12/25/24 17:00 12/29/24 08:23 Rifaximin 550 Mg Tablet PO 550 mg BID LENNY Administration Vitamin D 25 mcg 12/26/24 09:00 12/29/24 08:22 Cholecalciferol (Vitamin D3) 25 Mcg (1,000 Units) Tablet PO 25 mcg DAILY LENNY Administration Radiology Results: ITS Impressions Paracentesis Ultrasound 12/27/24 14:33 IMPRESSION: 1. Successful ultrasound-guided paracentesis yielding 5000 mL of clear straw- colored fluid. Chest X-Ray 12/28/24 10:48 Impression: Early basilar pneumonia Labs Labs: Laboratory Results - last 24 hr 12/28/24 12/29/24 10:25 04:24 WBC 4.5 4.9 RBC 2.90 L 2.62 L Hgb 9.2 L 8.3 L Hct 29.2 L 26.1 L MCV 100.7 H 99.6 MCH 31.7 31.7 MCHC 31.5 L 31.8 L RDW 16.4 H 16.4 H Plt Count 98 L 94 L MPV 9.5 9.7 Immature Gran % (Auto) 0.2 0.4 Neut % (Auto) 58.9 57.4 Lymph % (Auto) 18.8 20.7 Bracken % (Auto) 16.8 H 15.0 H Eos % (Auto) 4.2 5.3 H Baso % (Auto) 1.1 1.2 Lymph # (Auto) 0.85 L 1.01 Bracken # (Auto) 0.8 H 0.7 H Eos # (Auto) 0.2 0.3 Baso # (Auto) 0.1 0.1 Abs Immat Gran (auto) 0.01 0.02 Absolute Neuts (auto) 2.7 2.8 Absolute Nucleated RBC 0.000 0.000 Nucleated RBC % 0.0 0.0 % Immature Plt Fraction 1.8 1.9 Sodium 129 L 129 L Potassium 3.4 3.4 Chloride 104 104 Carbon Dioxide 20 L 20 L Anion Gap 5 5 BUN 16 17 Creatinine 0.92 0.95 Estim Creat Clear Calc 72 69 Estimated GFR > 60 > 60 Glucose 97 86 Calcium 8.3 L 7.9 L Total Bilirubin 3.0 H 2.3 H AST 28 23 ALT 15 12 Alkaline Phosphatase 88 92 NT-Pro-B Natriuret Pep 186 H Total Protein 5.8 L 5.0 L Albumin 2.6 L 2.2 L Quality VTE Prophylaxis VTE prophylaxis: mechanical ordered
[2024-12-29 14:14] LABS: Add Urine Microscopic? YES; Appearance Urine Clear (Clear); Glucose Urine UA Negative (Negative); Leukocyte Esterase Ur 2+ LEU/UL (Negative); Nitrate Urine Negative (Negative); Specific Grav Ur 1.020 (1.001-1.035)
--- NOTE | 2024-12-29 15:54 | PC.NURSE ---
Held morning Carvedilol and bumex due to decreased blood pressure at 0800. Okayed per Hospitalist Diana. Held 1700 dose of carvedilol again per Diana due to decreased BP
[2024-12-29] MEDS: FLUCONAZOLE 150 MG TABLET PO (17:09)
[2024-12-30] VITALS (20 sets, daily range): BP systolic 95–105; BP diastolic 45–65; PULSE 75–106; RESP 14–18; TEMP 36.7–37.1; O2SAT 84–92
[2024-12-30] MEDS: IPRATROPIUM 0.5 MG/ALBUTEROL SULFATE 2.5 MG AMPUL.NEB 3 ML INHALATION ×3 (02:00→13:39)
[2024-12-30] MEDS: LACTULOSE 20 GM/30 ML UDC PO ×2 (02:26→08:28)
[2024-12-30 05:19] LABS: Hematocrit 26.6 % (37.0-47.0); Hemoglobin 8.6 g/dL (12.0-15.0); Immature Platelet Fraction Pct 2.0 % (0.9-11.2); Mean Corpuscular HGB Conc 32.3 g/dl (32-36); Mean Corpuscular Hemoglobin 32.5 pg (26-34); Mean Corpuscular Volume 100.4 fl (80-100); Platelet Count Result 100 k/mm3 (150-375); Red Blood Count 2.65 M/mm3 (4.2-5.4); White Blood Count 5.1 K/mm3 (4.5-10.0)
[2024-12-30 05:36] LABS: Alanine Aminotransferase 11 U/L (6-35); Albumin Level 2.3 g/dL (3.5-5.1); Alkaline Phosphatase 100 U/L (38-126); Anion Gap 3 mmol/L (4-12); Aspartate Amino Transferase 29 U/L (14-36); Bilirubin,Total 2.1 mg/dL (0.2-1.3); Blood Urea Nitrogen 16 mg/dL (7-17); Calcium 7.8 mg/dL (8.4-10.2); Carbon Dioxide 20 mmol/L (22-30); Chloride 105 mmol/L (98-107); Estimated CRCL calculation 78 ml/min; Estimated Glomerular Filt Rate > 60; Glucose 94 mg/dL (65-110); Magnesium 2.0 mg/dL (1.6-2.3); Potassium 3.5 mmol/L (3.4-5.0); Sodium 128 mmol/L (137-145); Total Protein 5.3 g/dL (6.3-8.2)
[2024-12-30] MEDS: LEVOTHYROXINE SODIUM 125 MCG TABLET PO (06:07)
[2024-12-30] MEDS: guaiFENesin 12 HR 600 MG TABCR 1200 MG PO (08:26)
[2024-12-30] MEDS: CEFDINIR 300 MG CAPSULE PO (08:27)
[2024-12-30] MEDS: PANTOPRAZOLE 40 MG TABLET PO (08:27)
[2024-12-30] MEDS: POTASSIUM CHLORIDE 10 MEQ ER TABLET 20 MEQ PO (08:27)
[2024-12-30] MEDS: BUMETANIDE 1 MG TABLET 2 MG PO (08:27)
[2024-12-30] MEDS: FOLIC ACID 1 MG TABLET PO (08:27)
[2024-12-30] MEDS: CHOLECALCIFEROL (VITAMIN D3) 25 MCG (1,000 UNITS) TABLET PO (08:28)
--- NOTE | 2024-12-30 11:22 | P.DS_ITS ---
DS: Admitting Diagnosis Discharge Date 03/01/2025 Admitting Diagnosis PNA, SOB, ascites DS: Discharge Diagnosis Discharge Diagnosis (1) Pneumonia: Code(s): J18.9 - Pneumonia, unspecified organism Status: Acute Assessment and Plan: Cefdinir complete DuoNebs Guaifenesin Incentive spirometry Encourage ambulation 12/29: Feeling OK today, states that she is still feeling SOB and fatigued with exertion -->Titrated down to 3L, remained 95% Follow up CXR 12/28/24 shows early basilar pneumonia x2 more days of azithro for adequate coverage 12/30: Feeling more baseline today on her 3L NC, lungs sounding better today, no need for additional O2 needs overnight. Will continue oral abx course at home. (2) Hypoxia: Code(s): R09.02 - Hypoxemia Status: Acute Assessment and Plan: O2 eval: Patient requiring 3 L at rest and 6 L with activity 12/29: 3L NC 95% Will make sure pt with no needs of additional O2 overnight, potential D/C tomorrow PT ordered with recs for SNF, continue to work with while await potential placement Up to chair with all meals Continue to encourage IS use Follow-up CXR 12/28: Yielding same results as 12/24, Early basilar pneumonia ECHO: 1. Complete two-dimensional, color flow and Doppler transthoracic echocardiogram is performed. 2. Left ventricular systolic function is normal, estimated at 50-55. 3. Left ventricular chamber dimension is mildly enlarged. 4. The left ventricular diastolic function is indeterminate. 12/30: Pt in need of new O2 set up at home. Ordered home O2 eval to be performed today prior to discharge. Pt not set up at home because going to live at her fathers now which was not the case at admission. -No new O2 needs overnight, will continue with her 3L NC continuous and 6L NC with exertion (3) Hyponatremia: Code(s): E87.1 - Hypo-osmolality and hyponatremia Status: Acute Assessment and Plan: Patient given Lasix Repeat CMP in the AMs BUN elevated and remains hyponatremic Repeat lasix will order labs this am to re eval electrolytes 12/29: Na: 129 BUN: 17 WDL, back to baseline -Low NA potentially due to multiple comorbidities -Ordered urine Na (WDL) & urine osmol, mag pending for 12/30. --RN also updated me that when she collected the urine on the pt today, it was dark and cloudy. Will re-send UA to evaluate -Avoiding IVF due to patient being fluid overloaded 12/30: Mag WDL, still pending Urine osmal but since urine Na WDL, comfortable sending home with f/u with PCP (new). -Pt with hx of cirrhosis (4) Abdominal ascites: Qualifiers: Ascites type: other type Qualified Code(s): R18.8 - Other ascites Code(s): R18.8 - Other ascites Status: Acute Assessment and Plan: Patient was supposed to have a tap however she left AMA No need for paracentesis over the weekend Lasix given in ED resume home bumex paracentesis ordered-unsure if can be done today, if not-[place] Paracentesis complected 12/27 with 5L removed 12/30: Pt with established liver team at [facility] but wanting to have future paracentesis' done at [place] due to accessibility. Updated her to speak to her established team and/or new PCP due to [facility] not having a hepatobiliary team. Stable upon discharge today. (5) ALIREZA (acute kidney injury): Code(s): N17.9 - Acute kidney failure, unspecified Status: Acute Assessment and Plan: Avoiding IVF due to patient being fluid overloaded Avoid nephrotoxic medications creatinine back at baseline labs ordered this am Trend CMP 12/30: Resolved. 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 f/u with PCP (9) Acute hypotension: Code(s): I95.9 - Hypotension, unspecified Status: Acute Assessment and Plan: Baseline low, 100/50's 12/29: -RN alerted today 98/52, held AM Bumex and coreg, asymptomatic -VS Q4 hrs, continue to monitor 12/30: Has been soft, stable, and at baseline. (10) Dysuria: Code(s): R30.0 - Dysuria Status: Acute Assessment and Plan: 12/29: Pt reporting mild dysuria today as well as a hx of yeast infection with abx use. Pt reports that she feels as if she has a yeast infection. -UA w/reflex ordered -Second Fluconazole dose ordered today, will continue to monitor 12/30: Reports some dysuria relief today, but still having active burning when urinates. UA yielded 2+leuks as well. Spoke with ID pharm, will send home with oral abx to cover this (vanco res enterococcus faecium UC x1 year ago) as well as one more dose of fluconazole. Plan F/u with new PCP and liver specialist. DS: Summary Hospital Course Reason for hospitalization: SOB, PNA, ascites Hospital Course: ED: Patient is a 54-year-old female who presents ER with shortness of breath. Patient checked herself out of her rehab today against recommendations of the staff. When she left she was not provided any supplemental oxygen because she did not have a prescription for home she also was not provided any of her home medications. She reports her friend was driving her home and said her lips were turning blue and so they stopped here for further evaluation. She has no fevers or chills or sweats. No chest pain or abdominal pain. She is a liver patient at [facility] but she is unsure who her physician is. Patient typically wears 3 L of oxygen at all times. Patient reports that she gets weekly paracentesis on at [facility] but did not get it yesterday because they did not have a record of her needing a paracentesis. Admitting provider: 50-year-old female past medical history of BACON, ascites, hypothyroidism, portal hypertension, thrombocytopenia, who left AMA from a rehab facility today without oxygen complains of shortness of breath. Patient has been at rehab since May about 2 weeks ago they stopped during therapy so she left today. Patient had been on 3 L nasal oxygen while at rehab due to liver issues. Patient states that on the car ride home her lips started turning blue so her friend prior to the emergency room for further evaluation. Patient states that she was complaining at rehab over frequent coughing increased shortness of breath. She states that they told her she needed to sleep with more pillows. Patient states that she is on heart meds and diuretics however she does not know which ones they are. Denies fever and chills nausea vomiting. Pt now at baseline O2 of 3L resting and 6L with activity, lungs sound clear, ALIREZA resolved, and is stable for discharge. Outpt meds refilled today as well as a referral for a PCP to continue management of these with her liver team at [facility]. Pt reports that she feels back at baseline now however she is experiencing some dysuria, pt thinks that this is potentially due to abx use as she has had yeast infections in the past. Pt given fluconazole x2 doses as well as being d/c with linezolid to cover any UTI due to sx and leuks 2+. Pt also given a third dose of fluconazole to go home with if abx do not work for dysuria sx. CXR from 12/28 showing early PNA, but pt reports breathing better, will finish abx course outpt. Pt to f/u with new PCP with lab work and paracentesis planning if not with her liver team, pt agreeable with this plan. Status at Discharge Cognitive/behavioral status at discharge: Stable. Time Spent with Patient Time attestation: Total time spent providing and/or coordinating discharge services: 45 minutes Exam Const: General: comfortable Other: Chronically ill-appearing HENMT: Face/Nose/Sinus: Normal nares present Other: tachy mucous membranes Eyes: General: appearance normal, both eyes and all related structures Sclera: sclerae normal Neck: Neck: supple Carotids: no bruits Resp: Auscultation: diminished lung sounds (throughout) Cardio: Other: No edema GI: Inspection: distended Other: Soft, positive fluid wave. Reducible umbilical hernia present : Other: No vaginal discharge Skin: General skin exam: normal color and no rashes or lesions noted Neuro: Motor exam (neuro): 5/5 motor strength present throughout and Normal motor muscle tone present throughout Sensory Exam: normal sensation Extrem: General: normal to inspection Psych: Mental Status: mental status grossly normal Affect: normal affect DS: Data Data Completed and Pending Completed studies during hospitalization: CXR Pending studies at discharge: Urine osmolality Labs on day of discharge: Labs from last 24 hours 12/30/24 12/29/24 04:39 12:41 WBC 5.1 RBC 2.65 L Hgb 8.6 L Hct 26.6 L MCV 100.4 H MCH 32.5 MCHC 32.3 RDW 16.4 H Plt Count 100 L MPV 9.7 % Immature Plt Fraction 2.0 Sodium 128 L Potassium 3.5 Chloride 105 Carbon Dioxide 20 L Anion Gap 3 L BUN 16 Creatinine 0.84 Estim Creat Clear Calc 78 Estimated GFR > 60 Glucose 94 Calcium 7.8 L Magnesium 2.0 Total Bilirubin 2.1 H AST 29 ALT 11 Alkaline Phosphatase 100 Total Protein 5.3 L Albumin 2.3 L Urine Color Dark yellow Urine Appearance Clear Urine pH 5.5 Ur Specific [place] 1.020 Urine Protein Negative Urine Glucose (UA) Negative Urine Ketones Trace H Ur Blood (Man) Negative Urine Nitrate Negative Urine Bilirubin 1+ H Urine Urobilinogen 0.2 Ur Leukocyte Esterase 2+ H Urine RBC 0-2 Urine WBC 6-10 H Ur Squamous Epith Cells Few Urine Bacteria None seen Urine Casts 3-5 Urine Osmolality Pending Ur Random Sodium < 5 Procedures/Treatments: Paracentesis Discharge Plan Discharge Attending physician on discharge: Gilbert Sargent Consulting providers: Corey Díaz; Diana Singh Discharging Clinician: Diana Singh Anticipated Discharge Date/Time: 12/30/24 14:00 Patient Disposition: Home Activity: may shower Diet: as tolerated Discharge Instructions: 1. You were see for shortness of breath with pneumonia and a potential UTI. Your home medications as well as antibiotics were sent to your pharmacy. Please make sure that you take all of your antibiotics. 2. I am also sending you home with one more anti fungal dose for a possible yeast infection. If the antibiotics are not helping your painful urination, you can take this dose one more time. 3. We unfortunately we do not have liver specialists here at [place]. You will need to speak to your liver team at [facility] to see if they can coordinate your weekly paracentesis procedures for closer to your father's house, if that is still your plan. 4. I have attached a referral for a primary care provider as well, they can also help get you scheduled for a paracentesis, but, it just may take longer, but it is worth a try if it is getting close to the time you need to be tapped. 5. I have refilled all of your home medications and sent these to the [facility] in [facility] to check your blood pressure and blood sugar at home if applicable. Keep your scheduled appts with your primary care provider and any specialist that you may see. Return to the emergency department if you develop sudden shortness of breath, chest pain, a fever of greater than 101.5, or nausea, vomiting, abd pain, or diarrhea that does not go away. Follow-up with your primary care provider within 1-2 weeks, they will want to be updated on your inpatient stay in the hospital. Thank you for choosing [facility] for your healthcare needs. Patient Instructions: Antibiotic Form, Yeast Infection (ED), Community Acquired Pneumonia (DC), Ascites (DC), Dysuria (ED) Patient Language: Lithuanian Stand Alone Forms: General Discharge Information Follow-up/Referrals: Sue,MD Caio [Primary Care Provider, Unknown] Referral Note: Please call to make an appointment Discharge Medications: New carvedilol [Coreg] 3.125 mg Tablet 3.125 mg PO BID 90 Days Qty: 180 0RF bumetanide 1 mg Tablet 2 mg PO DAILY 90 Days Qty: 180 0RF docusate sodium 100 mg Capsule 100 mg PO BID PRN (Reason: Constipation) 90 Days Qty: 90 0RF folic acid 1 mg Tablet 1 mg PO DAILY 90 Days Qty: 90 0RF lactulose 10 gram/15 mL Solution 20 g PO Q6H 30 Days Qty: 3600 0RF levothyroxine 125 mcg Tablet 125 mcg PO DAILY@0630 90 Days Qty: 90 0RF pantoprazole 40 mg Tablet,Delayed Release (Dr/Ec) 40 mg PO Q12HR 90 Days Qty: 180 0RF oxycodone 5 mg capsule 5 mg PO Q6H PRN (Reason: pain) Qty: 6 0RF linezolid 600 mg Tablet 600 mg PO Q12HR Qty: 11 0RF cholecalciferol (vitamin D3) 25 mcg (1,000 unit) Tablet 25 mcg PO DAILY 90 Days Qty: 90 0RF azithromycin 500 mg Tablet 500 mg PO QHS 2 Days Qty: 0 0RF cefdinir 300 mg Capsule 300 mg PO Q12HR Qty: 2 0RF Xifaxan 550 mg Tablet 550 mg PO BID 90 Days Qty: 180 0RF Continued bumetanide 2 mg tablet 2 mg PO DAILY carvedilol 3.125 mg tablet 3.125 mg PO BID Rx Instructions: must administer with a meal/food potassium chloride 10 mEq capsule, extended release 20 meq PO DAILY 90 Days Qty: 180 0RF Discontinued acetaminophen 500 mg capsule 1,000 mg PO Q6H PRN (Reason: pain) Qty: 30 0RF levothyroxine 200 mcg tablet 200 mcg PO DAILY lactulose 10 gram/15 mL solution 30 ml PO Q6H levothyroxine 175 mcg tablet 175 mcg PO .daily cholecalciferol (vitamin D3) 25 mcg (1,000 unit) capsule 1,000 unit PO DAILY clotrimazole 1 % ointment 1 applic topical BID Patient Comments: applied to lips lactulose [Enulose] 10 gram/15 mL solution 10 g PO QID Patient Comments: give 45 mL by mouth 4 times a day for constipation folic acid 1 mg tablet 1 mg PO DAILY levothyroxine 125 mcg capsule 125 mcg PO DAILY mupirocin [Centany] 2 % ointment 1 applic topical TID omeprazole 20 mg capsule,delayed release(DR/EC) 20 mg PO BID oxycodone 5 mg tablet 5 mg PO Q6H PRN (Reason: moderate to severe pain) ketoconazole 2 % shampoo 1 applic topical 2XW Rx Instructions: apply to scalp topically every day shift every . and Fri. ketoconazole 2 % cream 1 applic topical BID Rx Instructions: apply to affected reddened areas topically rifaximin 550 mg tablet 550 mg PO BID Date of admission: 12/29/24 16:26 Primary Care Provider: Sue,Caio Admitting Provider: George Marquez Attending physician on admission: George Marquez Condition: Stable Quality VTE Prophylaxis VTE prophylaxis: mechanical ordered Hospitalist MIPS Heart Failure (Exclusion) Patient has history of Heart Transplant or Left Ventricular Assistive Device?: No IF YES, STOP HERE Heart Failure (Qualifier) Patient has current or prior documentation of LVEF less than or equal to 40%, or mod/servere depressed LVSF?: No IF NO, STOP HERE
--- NOTE | 2024-12-30 11:41 | HOMEO2EVAL ---
Evaluation was performed at [facility] Home Oxygen Evaluation RC: Home Oxygen (O2) Evaluation Start: 12/27/24 09:13 Freq: ONCE Status: Active Protocol: RPE Activity Type Activity Date Activity User E-sign Co-sign Detail Recorded Client Recorded Date Recorded By Document 12/30/24 10:30 [email or web address] [email or web address] 12/30/24 11:40 DJO Document 12/30/24 10:35 [email or web address] 12/30/24 11:40 DJO Document 12/30/24 10:40 [email or web address] 12/30/24 11:40 DJO Document 12/30/24 10:45 [email or web address] 12/30/24 11:40 DJO Document 12/30/24 10:50 [email or web address] 12/30/24 11:40 DJO Document 12/30/24 10:55 [email or web address] 12/30/24 11:40 DJO Document 12/30/24 11:00 [email or web address] 12/30/24 11:40 DJO Document 12/30/24 11:05 [email or web address] 12/30/24 11:40 DJO Document 12/30/24 11:20 [email or web address] 12/30/24 11:40 DJO 12/30/24 12/30/24 12/30/24 10:30 10:35 10:40 Home O2 Evaluation [Oxygen] -Test Phase Resting Resting Resting -Oxygen Delivery Room Air Nasal Cannula Nasal Cannula -Oxygen Flow Rate (L/min) 1 2 [Pulse Oximetry] -Pulse Oximetry (90-100 %) 84 L 86 L 88 L [Pulse Rate] -Pulse Rate (60-100 beats/min) 90 92 85 [Evaluation] -Activity Tolerance 12/30/24 12/30/24 12/30/24 10:45 10:50 10:55 Home O2 Evaluation [Oxygen] -Test Phase Resting Exercise Exercise -Oxygen Delivery Nasal Cannula Nasal Cannula Nasal Cannula -Oxygen Flow Rate (L/min) 3 3 4 [Pulse Oximetry] -Pulse Oximetry (90-100 %) 91 85 L 86 L [Pulse Rate] -Pulse Rate (60-100 beats/min) 83 99 102 H [Evaluation] -Activity Tolerance 12/30/24 12/30/24 12/30/24 11:00 11:05 11:20 Home O2 Evaluation [Oxygen] -Test Phase Exercise Exercise Resting -Oxygen Delivery Nasal Cannula Nasal Cannula Nasal Cannula -Oxygen Flow Rate (L/min) 5 6 3 [Pulse Oximetry] -Pulse Oximetry (90-100 %) 88 L 91 91 [Pulse Rate] -Pulse Rate (60-100 beats/min) 104 H 106 H 86 [Evaluation] -Activity Tolerance Fair
[2024-12-30] MEDS: LINEZOLID 600 MG TABLET PO (13:28)
[2025-01-03 04:06] LABS: Osmolality, Urine 499 mOsmol/kg (.)
== END 2024-12-30 15:05 | disposition home or self-care (01) | DRG 194 ==
LOC: ANHED 13:43 → ANH2MED 16:41
PROVIDERS: Nurse Practitioner; Nurse Practitioner Adult Health; Nurse Practitioner Gerontology; Admitting Provider General Practice; Emergency Provider Emergency Medicine; PCP Internal Medicine Gastroenterology
DX: J18.9 Pneumonia, unspecified organism (principal); E87.1 Hypo-osmolality and hyponatremia; N17.9 Acute kidney failure, unspecified; R18.8 Other ascites; K76.6 Portal hypertension; K75.81 Nonalcoholic steatohepatitis (NASH); K74.69 Other cirrhosis of liver; E06.3 Autoimmune thyroiditis; D69.6 Thrombocytopenia, unspecified; E87.70 Fluid overload, unspecified; K42.9 Umbilical hernia without obstruction or gangrene; R11.0 Nausea; I95.9 Hypotension, unspecified; R30.0 Dysuria; F10.91 Alcohol use, unspecified, in remission; Z87.891 Personal history of nicotine dependence; Z91.148 Patient's other noncompliance with medication regimen for other reason; Z99.81 Dependence on supplemental oxygen; Z87.42 Personal history of other diseases of the female genital tract; Z87.19 Personal history of other diseases of the digestive system
CPT/HCPCS: 36415; 49083; 71045; 80048; 80053; 81001; 82077; 82140; 83735; 83880; 83935; 84300; 85025; 85027; 85055; 85610; 85730; 93306; 94640; 96365; 96366; 96375; 96376; 97110; 97161; 97530; 99285; A9270; G0378; J0456; J0696; J1938; J2405; J7050

== ENCOUNTER 2025-01-04 18:43 | Inpatient (IN) | payer MEDICAID, SELFPAY ==
[2025-01-04] VITALS (16 sets, daily range): BP systolic 102–128; BP diastolic 57–86; PULSE 82–98; RESP 12–18; TEMP 37; O2SAT 92–98
--- NOTE | ~2025-01-04 | XR_ITS ---
EXAMINATION: XR abdomen/kub 1V, 01/08/2025 13:05 CDT HISTORY: abdominal pain COMPARISON: No comparisons available. Technique: 3 view. Findings: Bowel gas pattern unremarkable. No obstruction. No free air. No abnormal calcifications No acute osseous abnormality. Impression: 1. No acute abnormality. Reviewed, dictated and finalized at location P. Impression: 1. No acute abnormality.
--- NOTE | ~2025-01-04 | US_ITS ---
EXAMINATION: US paracentesis abd w/image DATE: 01/13/2025 15:52 INDICATION: Ascites. TECHNIQUE: The procedure and its risks and benefits were discussed with the patient. Potential risks discussed included bleeding and infection. The skin was prepped and draped in sterile fashion. 1% lidocaine was used for local anesthesia. Under ultrasound guidance, a 5 Fr catheter with trochar was advanced into the ascites in the left lower quadrant. Fluid was aspirated into vacuum bottles. The catheter was removed, and a dressing was applied. There were no immediate complications. FINDINGS: Ultrasound images demonstrate ascites and the catheter within the fluid. IMPRESSION: 1. Successful ultrasound-guided paracentesis yielding 3300 mL of dark fidencio- colored fluid. Reviewed, dictated and finalized at location A. IMPRESSION: 1. Successful ultrasound-guided paracentesis yielding 3300 mL of dark fidencio-co lored fluid.
--- NOTE | ~2025-01-04 | CT_ITS ---
EXAMINATION: CTA chest PE abdomen pel DATE: 01/04/2025 22:20 INDICATION: Chest pain. Abdominal pain. Shortness of breath. TECHNIQUE: Computed tomography angiography (CTA) of the chest was performed with 100 mL Omnipaque-350 intravenous contrast timed to evaluate the pulmonary arteries. Coronal maximum intensity projection 3D-reconstructions were created by the technologist. Computed tomography (CT) of the abdomen and pelvis was performed with intravenous contrast. Automated exposure control and iterative reconstruction technique were employed. The dose-length product was 1652.35 mGy-cm. COMPARISON: CT abdomen and pelvis 02/07/2024 FINDINGS: CTA chest: The lungs demonstrate mild atelectasis. No pleural effusion. The heart size is normal. No pericardial effusion. The pulmonary arteries are poorly opacified due to the phase of contrast enhancement. There is mild chronic anterior wedging of multiple vertebral bodies. There is moderate thoracic spondylosis. CT abdomen and pelvis: The liver demonstrates a nodular surface contour, consistent with cirrhosis. There is mild splenomegaly. There is a periumbilical portacaval shunt. Paraesophageal varices are noted. There are changes of cholecystectomy. The pancreas, adrenal glands, and right kidney are normal. T here is a 3 mm stone in left kidney. There is a 1.4 cm cyst in left kidney with dependent milk of calcium. There are no dilated loops of bowel. The appendix is normal. There is a large volume of ascites. There are no pathologically enlarged lymph nodes. There is an umbilical hernia containing fat and ascites. There is mild lumbar spondylosis. IMPRESSION: 1. Cirrhosis of the liver with portal venous hypertension. 2. Large volume of ascites. 3. Nondiagnostic evaluation of the pulmonary arteries. Reviewed, dictated and finalized at location E.
--- NOTE | ~2025-01-04 | XR_ITS ---
Examination: XR chest 1V portable Clinical History: cp Comparison: 12/28/2024 Technique: Portable AP Findings: Heart size normal. Lungs clear. No acute bony abnormality. IMPRESSION: 1. No acute cardiopulmonary findings given portable technique. Reviewed, dictated and finalized at location R.
--- NOTE | ~2025-01-04 | US_ITS ---
EXAMINATION: US paracentesis abd w/image DATE: 01/05/2025 14:58 INDICATION: Ascites. TECHNIQUE: The procedure and its risks and benefits were discussed with the patient. Potential risks discussed included bleeding and infection. The skin was prepped and draped in sterile fashion. 1% lidocaine was used for local anesthesia. Under ultrasound guidance, a 5 Fr catheter with trochar was advanced into the ascites in the left lower quadrant. Fluid was aspirated into vacuum bottles. The catheter was removed, and a dressing was applied. There were no immediate complications. FINDINGS: Ultrasound images demonstrate ascites and the catheter within the fluid. IMPRESSION: 1. Successful ultrasound-guided paracentesis yielding 6000 mL of dark fidencio- colored fluid. Reviewed, dictated and finalized at location A. IMPRESSION: 1. Successful ultrasound-guided paracentesis yielding 6000 mL of dark fidencio-co lored fluid.
--- NOTE | ~2025-01-04 | CT_ITS ---
EXAMINATION: CTA chest PE protocol, 01/05/2025 1:26 CDT HISTORY: cp, back pain, elevated dimer COMPARISON: No comparisons available. TECHNIQUE: CTA examination is obtained with contrast CTA examination technique is performed with arterial phase of contrast-enhancement. 3-D reconstruction with thin MIP axial and MPR coronal imaging is provided Isovue 300, 92cc injected IV. One or more of the following dose reduction techniques were used: automated exposure control, adjustment of the mA and/or kV according to patient size, use of iterative reconstruction technique. FINDINGS: No significant coronary calcification is present ([id number]) LUNGS: The contrast bolus is adequate, there is no pulmonary embolism identified. No tracheomalacia. No bronchiectasis. Mild emphysematous changes. Mild pulmonary fibrotic changes. No honeycombing or areas of bullous formation. Apical scarring noted bilaterally. Nonspecific elevation of the right hemid iaphragm. There are scattered subcentimeter micronodules. HEART AND PERICARDIUM: Within normal limits. AORTA: Normal caliber aorta.. PULMONARY ARTERIES: No pulmonary embolism ADENOPATHY/MEDIASTINUM: None. LIMITED VIEWS OF THE ABDOMEN: Cirrhotic changes noted of the liver with a large amount of ascites throughout the visualized abdomen. Multiple esophageal varices are noted with gastric varices also evident. There is gastric content within the stomach, distinction from bleeding is limited without noncontrast exam. OSSEOUS STRUCTURES: No sclerotic or lytic lesions. No acute fractures are identified. OVERLYING SOFT TISSUES: Soft tissues demonstrate mild probable anasarca. THYROID: The thyroid is unremarkable. IMPRESSION: 1. Negative for pulmonary embolism. No acute process in the visualized chest. Incidental findings above Reviewed, dictated and finalized at location P. IMPRESSION: 1. Negative for pulmonary embolism. No acute process in the visualized chest. I ncidental findings above
--- NOTE | ~2025-01-04 | US_ITS ---
EXAMINATION: US paracentesis abd w/image DATE: 01/10/2025 11:35 INDICATION: Abdominal pain and distention. Ascites. TECHNIQUE: The procedure and its risks and benefits were discussed with the patient. Potential risks discussed included bleeding and infection. The skin was prepped and draped in sterile fashion. 1% lidocaine was used for local anesthesia. Under ultrasound guidance, a 5 Fr catheter with trochar was advanced into the ascites in the left lower quadrant. Fluid was aspirated into vacuum bottles. The catheter was removed, and a dressing was applied. There were no immediate complications. FINDINGS: Ultrasound images demonstrate ascites and the catheter within the fluid. IMPRESSION: 1. Successful ultrasound-guided paracentesis yielding 5200 mL of fidencio-colored fluid. Reviewed, dictated and finalized at location A.
--- NOTE | ~2025-01-04 | XR_ITS ---
XR abdomen/kub 1V INDICATION: abdominal pain, constipation REFERENCE: NONE FINDINGS: A supine view of the abdomen is submitted.Nonspecific gaseous distention of the bowel loops are noted. There is moderate stool retention in the colon. No free air is identified. Osseous structures are intact. IMPRESSION: Constipation. Reviewed, dictated and finalized at location S. IMPRESSION: Constipation.
--- NOTE | 2025-01-04 18:56 | ECG_ITS ---
Test Date: 2025-01-04 18:50:52 Measurements Intervals Carter Rate: 86 P: 22 WA: 192 QRS: -55 QRSD: 126 T: 55 QT: 389 QTc: 466 Interpretive Statements SINUS RHYTHM LEFT ANTERIOR FASCICULAR BLOCK BASELINE ARTIFACT- I, II, AVR, AVL ABNORMAL ECG Compared to ECG 03/09/2024 02:37:36 No significant changes Electronically Signed On 01-05-2025 06:13:20 CDT by Glen Woodruff D.O.
--- NOTE | 2025-01-04 19:04 | ED.CHESTPAIN ---
HPI - Chest Pain General Chief Complaint: Chest Pain Stated Complaint: CP/Back pain Time Seen by Provider: 01/04/25 18:55 Source: patient Mode of arrival: EMS Limitations: no limitations History of Present Illness HPI narrative: This is a 54 year old female that presents to the ER for shortness of breath. Reports her home oxygen concentrator was not working. Oxygen saturation in the 80s when EMS found her. She usually wears 3L NC. Reports she has had chest pain and back pain since this morning. Denies fever, vomiting, diarrhea. Related Data Home Medications ?Medication ?Instructions ?Recorded ?Confirmed ?Last Taken ?Type bumetanide 2 mg tablet 2 mg PO DAILY 12/25/24 12/25/24 Unknown History carvedilol 3.125 mg tablet 3.125 mg PO BID 12/25/24 12/25/24 Unknown History Allergies Allergy/AdvReac Type Severity Reaction Status Date / Time amoxicillin Allergy Hives Verified 01/04/25 18:59 latex Allergy Rash Verified 01/04/25 18:59 Penicillins Allergy Hives Verified 01/04/25 18:59 hydromorphone (From Dilaudid) AdvReac Itching Verified 01/04/25 18:59 Review of Systems Review of Systems: All systems reviewed & are unremarkable except as noted in HPI and below PMFSH Past Medical History Medical History Otitis media when 10 yrs old Esophageal varices with bleeding Pulmonary edema Hypothyroidism SBP (spontaneous bacterial peritonitis) TAB positive Colon cancer screening Portal hypertension Thrombocytopenia Elevated liver enzymes Alcohol use Decompensation of cirrhosis of liver Nicotine dependence, cigarettes, with other nicotine-induced disorders 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 She has 1 child at the daughter and she states that the daughter had recently moved. She also states she did have her primary however primary recently left. She does wish to be a full code. All code status is were reviewed with the patient including DNR, DNI current pressors, BiPAP and CPAP. Patient wishes to be a full code at that time. She also likes her friend Franko to be her surrogate. Smoking packs per day: 0.5 Smoking cigarettes per day: 10.0 Years smoked: 5 Smoking pack-years: 2.50 Smoking status: Former smoker Tobacco type: cigarettes Smoking end date: 11/26/23 Alcohol intake: former Drinks per week: 4 Substance use: never Substance use type: does not use Do You Feel Safe in your Home?: Yes Lack of Transportation: YES Lack of Food: Often True Current Housing: I Have Housing Concerned About Future Housing: No Difficulty Paying Gas/Electric Bills: No Difficulty Paying for Meds: No Currently Unemployed: No Education: High School Diploma/GED Difficulty w/ Childcare or Family Care: No Living arrangements: with family Occupation/Education: other Additional occupation/education comments: disability Gender identity (if verbalized by the patient): Female Sexual Orientation (if Verbalized by the Patient): Straight or Heterosexual Spiritual care concerns: No Agree to blood products: Yes Exam Narrative: GENERAL: Chronically ill-appearing, well-nourished, and in no acute distress. HEAD: Normocephalic, atraumatic. EYES: EOMI. ENT: Nares clear, no rhinorrhea or epistaxis. Mucous membranes moist. Oropharynx without tonsillar hypertrophy exudate or other lesions. NECK: Supple. No adenopathy or masses. CHEST: Clear to auscultation. No respiratory distress. No wheezes rales or rhonchi HEART: Regular rate and rhythm. No murmur heard. Normal peripheral pulses. ABDOMEN: Distended, nontender, normal active bowel sounds. EXTREMITIES: Normal range of motion. No edema. SKIN: Warm, dry, no rash. NEURO: No focal deficits. Alert and oriented x3. PSYCH: Normal mood and affect Course Consultations Consultation #1: spoke with hospitalist about patient and workup who accepts admission Date: 01/05/25 Vital Signs Vital signs: Vital Signs Temperature 98.6 F 01/04/25 18:44 Pulse Rate 89 01/04/25 18:44 Respiratory Rate 12 01/04/25 18:44 Blood Pressure 128/78 01/04/25 18:44 Pulse Oximetry 95 01/04/25 18:44 Oxygen Delivery Nasal Cannula 01/04/25 18:44 Oxygen Flow Rate 3 01/04/25 18:44 Temperature 98.6 F 01/04/25 18:44 Pulse Rate 93 01/05/25 01:00 Respiratory Rate 12 01/05/25 01:00 Blood Pressure 119/66 01/05/25 00:31 Pulse Oximetry 90 01/05/25 01:00 Oxygen Delivery Nasal Cannula 01/04/25 18:57 Oxygen Flow Rate 3 01/04/25 18:57 MDM - Chest Pain MDM Narrative Medical decision making narrative: Patient presents the emergency department for hypoxia. Her home oxygen concentrator was not working. Upon EMS arrival patient in the 80s. Placed back on her 3L nasal cannula that she wears chronically with improvement. Patient reporting chest pain, back pain. She is afebrile nontoxic appearing. Her vitals are stable. Cbc without leukocytosis. Metabolic panel with mild hypokalemia, this was replaced. Magnesium is normal. EKG without acute ST changes, baseline and 3 hour troponin are negative. CTA chest PE with abdomen and pelvis obtained for further evaluation. No aortic dissection or aneurysm. Recommend repeat scan for assessment of PE due to contrast bolus timing. Massive ascites, otherwise no acute intra-abdominal findings. Repeat CTA does not show any PE. Patient will be admitted for further management Differential Diagnosis Differential diagnosis: Likely stable angina, atypical chest pain, costochondritis, chest pain and other (PE, ascites, pneumonia, dissection) Lab Data Attestation: I reviewed the patient's lab results. 01/04/25 20:17 01/04/25 20:17 Labs: Lab Results 01/04/25 01/04/25 Range/Units 20:17 23:08 WBC 5.6 (4.5-10.0) K/mm3 RBC 3.30 L (4.2-5.4) M/mm3 Hgb 10.5 L (12.0-15.0) g/dL Hct 32.6 L (37.0-47.0) % MCV 98.8 (80-100) fl MCH 31.8 (26-34) pg MCHC 32.2 (32-36) g/dl RDW 16.8 H (11.5-14.5) % Plt Count 103 L (150-375) k/mm3 MPV 9.7 (7.4-10.4) fl Immature Gran % (Auto) 0.2 (0-0.5) % Neut % (Auto) 63.8 (45.5-73.1) % Lymph % (Auto) 16.6 L (18.3-44.2) % [place] % (Auto) 14.8 H (2.6-8.5) % Eos % (Auto) 3.2 (0-4.4) % Baso % (Auto) 1.4 H (0.2-1.2) % Lymph # (Auto) 0.93 (0.9-3.2) K/mm3 [place] # (Auto) 0.8 H (0.1-0.6) K/mm3 Eos # (Auto) 0.2 (0-0.3) K/mm3 Baso # (Auto) 0.1 (0.0-0.1) K/mm3 Abs Immat Gran (auto) 0.01 (0.00-0.031) K/mm3 Absolute Neuts (auto) 3.6 (1.3-6.7) K/mm3 Absolute Nucleated RBC 0.000 (0.0-0.012) K/mm3 Nucleated RBC % 0.0 (0.0-0.2) % PT 16.7 H (11.1-14.7) Seconds INR 1.4 APTT 36.4 (22.3-36.8) Seconds D-Dimer 2.84 H (<0.48) ug/mL Sodium 132 L (137-145) mmol/L Potassium 3.3 L (3.4-5.0) mmol/L Chloride 106 (98-107) mmol/L Carbon Dioxide 20 L (22-30) mmol/L Anion Gap 6 (4-12) mmol/L BUN 17 (7-17) mg/dL Creatinine 0.93 (0.7-1.0) mg/dL Estim Creat Clear Calc 72 ml/min Estimated GFR > 60 (59 - ) Glucose 96 (65-110) mg/dL Calcium 8.4 (8.4-10.2) mg/dL Magnesium 2.2 (1.6-2.3) mg/dL Total Bilirubin 3.0 H (0.2-1.3) mg/dL AST 39 H (14-36) U/L ALT 17 (6-35) U/L Alkaline Phosphatase 139 H (38-126) U/L Troponin I < 0.012 < 0.012 (0.000-0.034) ng/mL Total Protein 6.4 (6.3-8.2) g/dL Albumin 2.9 L (3.5-5.1) g/dL Lipase 188 (23-300) U/L Imaging Data Radiologist's impression: CTA chest PE with abdomen pelvis: No aortic dissection or aneurysm. Recommend repeat evaluation for pulmonary embolism, nondiagnostic due to miss pulmonary artery contrast bolus. Cirrhosis and splenomegaly. Volume overload with massive ascites. Repeat CTA: No large or main pulmonary embolism ECG Data EKG #1: ECG completion date: 01/04/25 EKG Interpretation: normal rate, sinus rhythm, no ST changes and normal QT Critical Care Time Critical Care Time Critical Care Time: No Discharge Plan Discharge Clinical Impression: Chronic respiratory failure with hypoxia, on home O2 therapy Ascites Qualifiers: Ascites type: other type Qualified Code(s): R18.8 - Other ascites Patient Disposition: Still a Patient Condition: Stable Patient Language: Spanish Prescriptions: No Action bumetanide 2 mg tablet 2 mg PO DAILY carvedilol 3.125 mg tablet 3.125 mg PO BID Rx Instructions: must administer with a meal/food carvedilol [Coreg] 3.125 mg Tablet 3.125 mg PO BID 90 Days Qty: 180 0RF bumetanide 1 mg Tablet 2 mg PO DAILY 90 Days Qty: 180 0RF cefdinir 300 mg Capsule 300 mg PO Q12HR Qty: 2 0RF docusate sodium 100 mg Capsule 100 mg PO BID PRN (Reason: Constipation) 90 Days Qty: 90 0RF folic acid 1 mg Tablet 1 mg PO DAILY 90 Days Qty: 90 0RF lactulose 10 gram/15 mL Solution 20 g PO Q6H 30 Days Qty: 3600 0RF levothyroxine 125 mcg Tablet 125 mcg PO DAILY@0630 90 Days Qty: 90 0RF pantoprazole 40 mg Tablet,Delayed Release (Dr/Ec) 40 mg PO Q12HR 90 Days Qty: 180 0RF Xifaxan 550 mg Tablet 550 mg PO BID 90 Days Qty: 180 0RF linezolid 600 mg Tablet 600 mg PO Q12HR Qty: 11 0RF cholecalciferol (vitamin D3) 25 mcg (1,000 unit) Tablet 25 mcg PO DAILY 90 Days Qty: 90 0RF potassium chloride 10 mEq capsule, extended release 20 meq PO DAILY 90 Days Qty: 180 0RF cefdinir 300 mg Capsule 300 mg PO Q12HR Qty: 2 0RF fluconazole 150 mg tablet 150 mg PO ONCE Qty: 1 0RF Rx Instructions: as a single dose Follow-up/Referrals: Sue,MD Caio [Primary Care Provider, Unknown]
[2025-01-04 20:22] LABS: Hematocrit 32.6 % (37.0-47.0); Hemoglobin 10.5 g/dL (12.0-15.0); Immature Granulocyte Percent A 0.2 % (0-0.5); Lymphocytes Absolute Auto 0.93 K/mm3 (0.9-3.2); Mean Corpuscular HGB Conc 32.2 g/dl (32-36); Mean Corpuscular Hemoglobin 31.8 pg (26-34); Mean Corpuscular Volume 98.8 fl (80-100); Nucleated Red Blood Cells Absolute Auto 0.000 K/mm3 (0.0-0.012); Nucleated Red Blood Cells Perc 0.0 % (0.0-0.2); Platelet Count Result 103 k/mm3 (150-375); Red Blood Count 3.30 M/mm3 (4.2-5.4); White Blood Count 5.6 K/mm3 (4.5-10.0)
[2025-01-04] MEDS: MORPHINE SULFATE (*CRX) 4 MG/ML INJ IV PUSH (20:27)
[2025-01-04] MEDS: ONDANSETRON INJ 4 MG/2 ML VIAL IV PUSH (20:27)
[2025-01-04 20:36] LABS: Alanine Aminotransferase 17 U/L (6-35); Albumin Level 2.9 g/dL (3.5-5.1); Alkaline Phosphatase 139 U/L (38-126); Anion Gap 6 mmol/L (4-12); Aspartate Amino Transferase 39 U/L (14-36); Bilirubin,Total 3.0 mg/dL (0.2-1.3); Blood Urea Nitrogen 17 mg/dL (7-17); Calcium 8.4 mg/dL (8.4-10.2); Carbon Dioxide 20 mmol/L (22-30); Chloride 106 mmol/L (98-107); Estimated CRCL calculation 72 ml/min; Estimated Glomerular Filt Rate > 60; Glucose 96 mg/dL (65-110); Lipase 188 U/L (23-300); Potassium 3.3 mmol/L (3.4-5.0); Sodium 132 mmol/L (137-145); Total Protein 6.4 g/dL (6.3-8.2)
[2025-01-04 20:37] LABS: INR 1.4; Prothrombin Time 16.7 Seconds (11.1-14.7)
[2025-01-04 20:38] LABS: Partial Thromboplastin Time 36.4 Seconds (22.3-36.8)
[2025-01-04 20:46] LABS: Troponin I < 0.012 ng/mL (0.000-0.034)
[2025-01-04 20:51] LABS: Magnesium 2.2 mg/dL (1.6-2.3)
[2025-01-04] MEDS: POTASSIUM CHLORIDE 20 MEQ ER TABLET 40 MEQ PO (21:53)
[2025-01-04 23:34] LABS: Troponin I < 0.012 ng/mL (0.000-0.034)
[2025-01-05] VITALS (28 sets, daily range): BP systolic 90–144; BP diastolic 51–85; PULSE 60–95; RESP 9–22; TEMP 36–37.3; O2SAT 90–98; BMI 33.3
--- NOTE | 2025-01-05 00:08 | ECG_ITS ---
Test Date: 2025-01-05 00:08:09 Measurements Intervals [place] Rate: 86 P: 46 NC: 208 QRS: -54 QRSD: 126 T: 59 QT: 408 QTc: 488 Interpretive Statements SINUS RHYTHM LEFT ANTERIOR FASCICULAR BLOCK CANNOT R/O SEPTAL INFARCT, AGE INDETERMINATE BASELINE ARTIFACT- I, III, AVR, AVL, AVF ABNORMAL ECG Compared to ECG 01/04/2025 18:50:52 NO SIGNIFICANT CHANGE Electronically Signed On 01-05-2025 08:16:19 CDT by Glen Woodruff D.O.
[2025-01-05] MEDS: MORPHINE SULFATE (*CRX) 4 MG/ML INJ IV PUSH (00:40)
--- NOTE | 2025-01-05 04:04 | ADMGEN ---
This patient, Nasreen Orozco, was admitted to 2 Medical Room 257-. Patient/family oriented to hospital policies and general routines including ID bracelet, bed and alarms, visiting hours, pain management, procedures, bathroom and other care routines, personal items, smoking policy, room service/diet, and visiting hours. Information on how to activate the Rapid Response Team has been discussed. Patient/Family are encouraged to report perceived risks to care and to ask questions if they do not understand what they are told or what they should do.
[2025-01-05 05:01] LABS: Hematocrit 34.5 % (37.0-47.0); Hemoglobin 10.4 g/dL (12.0-15.0); Immature Granulocyte Percent A 0.4 % (0-0.5); Immature Platelet Fraction Pct 1.4 % (0.9-11.2); Lymphocytes Absolute Auto 1.02 K/mm3 (0.9-3.2); Mean Corpuscular HGB Conc 30.1 g/dl (32-36); Mean Corpuscular Hemoglobin 31.0 pg (26-34); Mean Corpuscular Volume 102.7 fl (80-100); Nucleated Red Blood Cells Absolute Auto 0.000 K/mm3 (0.0-0.012); Nucleated Red Blood Cells Perc 0.0 % (0.0-0.2); Platelet Count Result 107 k/mm3 (150-375); Red Blood Count 3.36 M/mm3 (4.2-5.4); White Blood Count 5.2 K/mm3 (4.5-10.0)
[2025-01-05 05:09] LABS: Alanine Aminotransferase 18 U/L (6-35); Albumin Level 3.0 g/dL (3.5-5.1); Alkaline Phosphatase 129 U/L (38-126); Anion Gap 9 mmol/L (4-12); Aspartate Amino Transferase 39 U/L (14-36); Bilirubin,Total 3.1 mg/dL (0.2-1.3); Blood Urea Nitrogen 17 mg/dL (7-17); Calcium 8.4 mg/dL (8.4-10.2); Carbon Dioxide 14 mmol/L (22-30); Chloride 108 mmol/L (98-107); Estimated CRCL calculation 73 ml/min; Estimated Glomerular Filt Rate > 60; Glucose 89 mg/dL (65-110); Magnesium 2.3 mg/dL (1.6-2.3); Potassium 3.9 mmol/L (3.4-5.0); Sodium 131 mmol/L (137-145); Total Protein 6.6 g/dL (6.3-8.2)
[2025-01-05 05:30] LABS: Free T4 Free Thyroxine 1.25 ng/dL (0.78-2.19)
--- NOTE | 2025-01-05 05:36 | PM.IMHP ---
H&P: HPI History of Present Illness Date/Time: 01/05/25 05:36 Chief Complaint: Shortness of breath Narrative: 54-year-old female with PMH hypothyroidism, cirrhosis follows at [facility], ascites requiring paracentesis approximately weekly, chronic respiratory failure on 3 L nasal cannula, recently discharged from [facility] on 12/30/2024 with pneumonia, presents again on 01/04/2025 with shortness of breath. Her oxygen concentrator/tank at home is not working. EMS found patient to be saturating 80%. Patient reports she has chest pain and back pain which is her usual when she needs paracentesis, she believes her legs are more swollen and she has a lot of ascites. Patient was placed on 3 L, her shortness of breath resolved. Saturating adequately. Patient had mild hypokalemia, replaced. EKG without acute ST changes. Troponin negative. CTA chest PE with abdomen pelvis obtained, no PE. Massive ascites. Review of Systems Review of Systems: All systems reviewed & are unremarkable except as noted in HPI and below (Subjective) PMFSH Past Medical History Medical History Otitis media when 10 yrs old Esophageal varices with bleeding Pulmonary edema Hypothyroidism SBP (spontaneous bacterial peritonitis) TAB positive Colon cancer screening Portal hypertension Thrombocytopenia Elevated liver enzymes Alcohol use Decompensation of cirrhosis of liver Nicotine dependence, cigarettes, with other nicotine-induced disorders 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 She has 1 child at the daughter and she states that the daughter had recently moved. She also states she did have her primary however primary recently left. She does wish to be a full code. All code status is were reviewed with the patient including DNR, DNI current pressors, BiPAP and CPAP. Patient wishes to be a full code at that time. She also likes her friend Franko to be her surrogate. Smoking packs per day: 0.5 Smoking cigarettes per day: 10.0 Years smoked: 5 Smoking pack-years: 2.50 Smoking status: Former smoker Tobacco type: cigarettes Smoking end date: 11/26/23 Alcohol intake: former Drinks per week: 4 Substance use: never Substance use type: does not use Do You Feel Safe in your Home?: Yes Lack of Transportation: No Lack of Food: Never True Current Housing: I Have Housing Concerned About Future Housing: No Difficulty Paying Gas/Electric Bills: No Difficulty Paying for Meds: No Currently Unemployed: No Education: Associate Degree Difficulty w/ Childcare or Family Care: No Living arrangements: with family Occupation/Education: other Additional occupation/education comments: disability Gender identity (if verbalized by the patient): Female Sexual Orientation (if Verbalized by the Patient): Straight or Heterosexual Spiritual care concerns: No Agree to blood products: Yes Meds Home Medications and Allergies Home Medications ?Medication ?Instructions ?Recorded ?Confirmed ?Type carvedilol 3.125 mg tablet 3.125 mg PO BID 12/25/24 01/05/25 History bumetanide 1 mg tablet 2 mg (2 x 1 mg) PO DAILY 90 days 12/27/24 01/05/25 Rx #180 tabs docusate sodium 100 mg capsule 100 mg PO BID PRN Constipation 90 12/27/24 01/05/25 Rx days #90 caps folic acid 1 mg tablet 1 mg PO DAILY 90 days #90 tabs 12/27/24 01/05/25 Rx lactulose 10 gram/15 mL oral 20 g (30 mL) PO Q6H 30 days #3,600 12/27/24 01/05/25 Rx solution mL levothyroxine 125 mcg tablet 125 mcg PO DAILY@0630 90 days #90 12/27/24 01/05/25 Rx tabs pantoprazole 40 mg tablet,delayed 40 mg PO Q12HR 90 days #180 tabs 12/27/24 01/05/25 Rx release rifaximin 550 mg tablet (Xifaxan) 550 mg PO BID 90 days #180 tabs 12/27/24 01/05/25 Rx cholecalciferol (vitamin D3) 25 25 mcg PO DAILY 90 days #90 tabs 12/30/24 01/05/25 Rx mcg (1,000 unit) tablet linezolid 600 mg tablet 600 mg PO Q12HR #11 tabs 12/30/24 01/05/25 Rx potassium chloride 10 mEq 20 meq (2 x 10 mEq) PO DAILY 90 12/30/24 01/05/25 Rx capsule,extended release days #180 caps Allergies Allergy/AdvReac Type Severity Reaction Status Date / Time amoxicillin Allergy Hives Verified 01/04/25 18:59 latex Allergy Rash Verified 01/04/25 18:59 Penicillins Allergy Hives Verified 01/04/25 18:59 hydromorphone (From Dilaudid) AdvReac Itching Verified 01/04/25 18:59 Vital Signs Vital Signs - 24 hr 01/04/25 18:44 01/04/25 18:56 01/04/25 18:57 Temperature 98.6 F Pulse Rate 89 82 Respiratory Rate 12 13 Blood Pressure 128/78 128/78 Pulse Oximetry 95 92 96 Oxygen Delivery Nasal Cannula Nasal Cannula Oxygen Flow Rate 3 3 01/04/25 18:58 01/04/25 19:00 01/04/25 19:01 Temperature Pulse Rate 90 85 98 Respiratory Rate 15 18 Blood Pressure 128/78 117/73 Pulse Oximetry 97 94 Oxygen Delivery Oxygen Flow Rate 01/04/25 19:28 01/04/25 19:31 01/04/25 20:45 Temperature Pulse Rate 87 84 85 Respiratory Rate 13 14 17 Blood Pressure 119/61 120/82 Pulse Oximetry 95 96 98 Oxygen Delivery Oxygen Flow Rate 01/04/25 21:01 01/04/25 21:52 01/04/25 22:01 Temperature Pulse Rate 86 91 89 Respiratory Rate 14 14 14 Blood Pressure 102/57 L 118/76 106/59 L Pulse Oximetry 97 98 97 Oxygen Delivery Oxygen Flow Rate 01/04/25 22:25 01/04/25 22:31 01/04/25 23:33 Temperature Pulse Rate 90 93 88 Respiratory Rate 14 12 13 Blood Pressure 116/84 119/86 Pulse Oximetry 98 97 96 Oxygen Delivery Oxygen Flow Rate 01/04/25 23:52 01/05/25 00:00 01/05/25 00:01 Temperature Pulse Rate 96 89 91 Respiratory Rate 14 14 13 Blood Pressure 121/72 Pulse Oximetry 94 94 95 Oxygen Delivery Oxygen Flow Rate 01/05/25 00:15 01/05/25 00:30 01/05/25 00:31 Temperature Pulse Rate 88 87 88 Respiratory Rate 16 12 12 Blood Pressure 119/66 Pulse Oximetry 96 95 96 Oxygen Delivery Oxygen Flow Rate 01/05/25 00:45 01/05/25 01:00 01/05/25 01:46 Temperature Pulse Rate 93 93 92 Respiratory Rate 14 12 13 Blood Pressure Pulse Oximetry 93 90 95 Oxygen Delivery Oxygen Flow Rate 01/05/25 02:00 01/05/25 02:01 01/05/25 02:15 Temperature Pulse Rate 89 89 88 Respiratory Rate 11 L 11 L 10 L Blood Pressure 112/75 Pulse Oximetry 93 94 93 Oxygen Delivery Oxygen Flow Rate 01/05/25 02:30 01/05/25 02:31 01/05/25 02:45 Temperature Pulse Rate 87 89 91 Respiratory Rate 10 L 10 L 12 Blood Pressure 124/59 L Pulse Oximetry 95 95 95 Oxygen Delivery Oxygen Flow Rate 01/05/25 03:00 01/05/25 03:30 01/05/25 03:31 Temperature Pulse Rate 86 89 83 Respiratory Rate 11 L 15 9 L Blood Pressure 109/84 Pulse Oximetry 96 96 98 Oxygen Delivery Oxygen Flow Rate 01/05/25 03:32 01/05/25 03:45 01/05/25 04:12 Temperature 96.8 F L Pulse Rate 83 88 95 Respiratory Rate 9 L 9 L 22 H Blood Pressure 144/85 H Pulse Oximetry 97 95 Oxygen Delivery Oxygen Flow Rate Exam Const: General: comfortable and no acute distress Other: A&O x3 HENMT: Mouth: Yes moist mucous membranes Eyes: Pupils: Equal, round and reactive pupils present Neck: Neck: supple Resp: Effort & Inspection: normal respiratory effort Auscultation: clear to auscultation bilaterally Cardio: Rate: regular rate Rhythm: regular rhythm Heart sounds: no murmurs GI: Inspection: distended GI Palp: Yes Firmness to palpation present (GI), No Tenderness to palpation present (GI) and No Guarding due to palpation present (GI) Neuro: Motor exam (neuro): 5/5 motor strength present throughout Extrem: General: edema H&P: Results Labs Labs: Short CBC 01/04/25 01/05/25 Range/Units 20:17 04:52 WBC 5.6 5.2 (4.5-10.0) K/mm3 Hgb 10.5 L 10.4 L (12.0-15.0) g/dL Hct 32.6 L 34.5 L (37.0-47.0) % Plt Count 103 L 107 L (150-375) k/mm3 BMP 01/04/25 01/05/25 20:17 04:52 Sodium 132 L 131 L Potassium 3.3 L 3.9 Chloride 106 108 H Carbon Dioxide 20 L 14 L BUN 17 17 Creatinine 0.93 0.93 Glucose 96 89 Calcium 8.4 8.4 Cardiac Enzymes 01/04/25 01/04/25 Range/Units 20:17 23:08 Troponin I < 0.012 < 0.012 (0.000-0.034) ng/mL Liver Function 01/04/25 01/05/25 Range/Units 20:17 04:52 Total Bilirubin 3.0 H 3.1 H (0.2-1.3) mg/dL AST 39 H 39 H (14-36) U/L ALT 17 18 (6-35) U/L Alkaline Phosphatase 139 H 129 H (38-126) U/L Albumin 2.9 L 3.0 L (3.5-5.1) g/dL Assessment and Plan Assessment and plan (1) Cirrhosis of liver: Code(s): K74.60 - Unspecified cirrhosis of liver Status: Acute (2) Ascites: Qualifiers: Ascites type: other type Qualified Code(s): R18.8 - Other ascites Code(s): R18.8 - Other ascites Status: Acute (3) Chronic respiratory failure with hypoxia, on home O2 therapy: Code(s): J96.11 - Chronic respiratory failure with hypoxia; Z99.81 - Dependence on supplemental oxygen Status: Acute Plan Patient is stable. She requests to have her thyroid function tests retested. Paracentesis ordered. Restart [employer] Coreg, bumetanide, rifaximin. Breathing well on her 3 L. care coordination consult to help arrange home O2 again. Patient wishes to be full code. SCDs. Saline lock IV. Hospitalist MIPS Advance Care Plan I have confirmed that the patient's Advanced Care Plan is present, code status is documented, or surrogate decision maker is listed in patient medical record.: Yes Medication Reconciliation I have utilized all available resources to obtain, update and review the patients current medications (includes all prescriptions, OTC, herbals, cannabis, and nutritional supplements).: Yes
[2025-01-05 05:45] LABS: Thyroid Stimulating Hormone 24.500 uIU/mL (0.465-4.680)
[2025-01-05] MEDS: LACTULOSE 20 GM/30 ML UDC PO ×2 (06:35→12:10)
[2025-01-05] MEDS: LEVOTHYROXINE SODIUM 125 MCG TABLET PO (06:36)
[2025-01-05] MEDS: POTASSIUM CHLORIDE 20 MEQ ER TABLET PO (09:24)
[2025-01-05] MEDS: PANTOPRAZOLE 40 MG TABLET PO ×2 (09:24→20:48)
[2025-01-05] MEDS: CHOLECALCIFEROL (VITAMIN D3) 25 MCG (1,000 UNITS) TABLET PO (09:24)
[2025-01-05] MEDS: FOLIC ACID 1 MG TABLET PO (09:24)
[2025-01-05] MEDS: BUMETANIDE 1 MG TABLET 2 MG PO (09:24)
--- NOTE | 2025-01-05 09:34 | P.PNIM_ITS ---
Progress Note: A&P Assessment and Plan (1) Cirrhosis of liver: Code(s): K74.60 - Unspecified cirrhosis of liver Status: Acute (2) Ascites: Qualifiers: Ascites type: other type Qualified Code(s): R18.8 - Other ascites Code(s): R18.8 - Other ascites Status: Acute (3) Chronic respiratory failure with hypoxia, on home O2 therapy: Code(s): J96.11 - Chronic respiratory failure with hypoxia; Z99.81 - Dependence on supplemental oxygen Status: Acute Plan Cirrhosis Ascites Not sure of her Bumex dose, likely 2mg per prior discharge summary. Not on spironolactone --Continue Bumex 2mg daiy --Add spironolactone 25mg daily & increase as tolerated --Paracentesis ordered. Continuing home Coreg, bumetanide, rifaximin. --Pain with ascites--low dose tylenol, oxycodone, morphine prn Elevated TSH TSH >24. Increase synthroid from 125<150 daily. She reports taking regularly Recheck in 6 weeks. Acute respiratory failure Breathing well on 3 L. Has had gradually increasing shortness of breath and ascites in the last week. Reporting her oxygen tank is not functioning --care coordination consult to help arrange home O2 again. FULL CODE SCDs, Start heparin for DVT prophylaxis, Saline lock IV. Time Spent With Patient Time: 56 minutes Subjective Date/time seen: 01/05/25 09:34 Interval history: US guided paracentesis ordered Reporting abdominal pain from ascites Concerned about stool incontinence after lactulose this morning VSS, On 3L NC. Reporting a problem with her oxygen tank at home. Not functioning. Company came to fix it but still not working. Not sure of her Bumex dose at home. Doesn't have a PCP. Goes to hepatology at [facility] but hasn't gone recent. Was on spironolactone at one point but now off of it and isn't sure why. Review of Systems Review of Systems: All systems reviewed & are unremarkable except as noted in HPI and below (Subjective) Exam Narrative: General - Awake and alert. No acute distress Eyes - PERRLA, EOM intact ENT - No thrush, No erythema Neck - No noticeable or palpable swelling Lymph Nodes - No lymphadenopathy Cardiovascular - RRR no m/r/g, no JVD Lungs: No wheezing, no use of accessory muscles, no crackles. Decreased in the bases Skin - Skin warm and dry, no wounds or rashes Abdomen - Normal bowel sounds, abdomen tight and nontender, distended/large volume ascites Extremities - Pitting LE edema, no cyanosis or clubbing Musculoskeletal - 5/5 strength, normal range of motion, no swollen or erythematous joints. Neurological ? Alert and oriented x 3, CN 2-12 grossly intact. Psych: Normal mood and affect Objective Data Vital Signs Vital Signs: Vital Signs - 24 hr 01/04/25 18:44 01/04/25 18:56 01/04/25 18:57 Temperature 98.6 F Pulse Rate 89 82 Respiratory Rate 12 13 Blood Pressure 128/78 128/78 Pulse Oximetry 95 92 96 Oxygen Delivery Nasal Cannula Nasal Cannula Oxygen Flow Rate 3 3 01/04/25 18:58 01/04/25 19:00 01/04/25 19:01 Temperature Pulse Rate 90 85 98 Respiratory Rate 15 18 Blood Pressure 128/78 117/73 Pulse Oximetry 97 94 Oxygen Delivery Oxygen Flow Rate 01/04/25 19:28 01/04/25 19:31 01/04/25 20:45 Temperature Pulse Rate 87 84 85 Respiratory Rate 13 14 17 Blood Pressure 119/61 120/82 Pulse Oximetry 95 96 98 Oxygen Delivery Oxygen Flow Rate 01/04/25 21:01 01/04/25 21:52 01/04/25 22:01 Temperature Pulse Rate 86 91 89 Respiratory Rate 14 14 14 Blood Pressure 102/57 L 118/76 106/59 L Pulse Oximetry 97 98 97 Oxygen Delivery Oxygen Flow Rate 01/04/25 22:25 01/04/25 22:31 01/04/25 23:33 Temperature Pulse Rate 90 93 88 Respiratory Rate 14 12 13 Blood Pressure 116/84 119/86 Pulse Oximetry 98 97 96 Oxygen Delivery Oxygen Flow Rate 01/04/25 23:52 01/05/25 00:00 01/05/25 00:01 Temperature Pulse Rate 96 89 91 Respiratory Rate 14 14 13 Blood Pressure 121/72 Pulse Oximetry 94 94 95 Oxygen Delivery Oxygen Flow Rate 01/05/25 00:15 01/05/25 00:30 01/05/25 00:31 Temperature Pulse Rate 88 87 88 Respiratory Rate 16 12 12 Blood Pressure 119/66 Pulse Oximetry 96 95 96 Oxygen Delivery Oxygen Flow Rate 01/05/25 00:45 01/05/25 01:00 01/05/25 01:46 Temperature Pulse Rate 93 93 92 Respiratory Rate 14 12 13 Blood Pressure Pulse Oximetry 93 90 95 Oxygen Delivery Oxygen Flow Rate 01/05/25 02:00 01/05/25 02:01 01/05/25 02:15 Temperature Pulse Rate 89 89 88 Respiratory Rate 11 L 11 L 10 L Blood Pressure 112/75 Pulse Oximetry 93 94 93 Oxygen Delivery Oxygen Flow Rate 01/05/25 02:30 01/05/25 02:31 01/05/25 02:45 Temperature Pulse Rate 87 89 91 Respiratory Rate 10 L 10 L 12 Blood Pressure 124/59 L Pulse Oximetry 95 95 95 Oxygen Delivery Oxygen Flow Rate 01/05/25 03:00 01/05/25 03:30 01/05/25 03:31 Temperature Pulse Rate 86 89 83 Respiratory Rate 11 L 15 9 L Blood Pressure 109/84 Pulse Oximetry 96 96 98 Oxygen Delivery Oxygen Flow Rate 01/05/25 03:32 01/05/25 03:45 01/05/25 04:03 Temperature Pulse Rate 83 88 Respiratory Rate 9 L 9 L Blood Pressure Pulse Oximetry 97 97 Oxygen Delivery Nasal Cannula Oxygen Flow Rate 3 01/05/25 04:12 01/05/25 07:41 01/05/25 09:24 Temperature 96.8 F L Pulse Rate 95 95 Respiratory Rate 22 H Blood Pressure 144/85 H Pulse Oximetry 95 90 Oxygen Delivery Nasal Cannula Oxygen Flow Rate 3 Intake/Output Intake/Output: Intake & Output 01/02/25 01/03/25 01/04/25 01/05/25 23:59 23:59 23:59 23:59 Intake Total 0 Balance 0 Meds/Results Medications: Active Medications Generic Name Dose Route Start Last Admin Trade Name Freq PRN Reason Stop Dose Admin Bumetanide 2 mg 01/05/25 09:00 01/05/25 09:24 Bumetanide 1 Mg Tablet PO 2 mg DAILY LENNY Administration Carvedilol 3.125 mg 01/05/25 09:00 01/05/25 09:24 Carvedilol 3.125 Mg Tablet PO 3.125 mg Q12HR LENNY Administration Docusate Sodium 100 mg 01/05/25 05:55 Docusate Sodium 100 Mg Capsule PO Q12H PRN Constipation Folic Acid 1 mg 01/05/25 09:00 01/05/25 09:24 Folic Acid 1 Mg Tablet PO 1 mg DAILY LENNY Administration Lactulose 20 gm 01/05/25 06:00 01/05/25 06:35 Lactulose 20 Gm/30 Ml Udc PO 20 gm Q6HR LENNY Administration Levothyroxine Sodium 125 mcg 01/05/25 06:30 01/05/25 06:36 Levothyroxine Sodium 125 Mcg Tablet PO 125 mcg DAILY@0630 LENNY Administration Pantoprazole Sodium 40 mg 01/05/25 09:00 01/05/25 09:24 Pantoprazole 40 Mg Tablet PO 40 mg Q12HR LENNY Administration Potassium Chloride 20 meq 01/05/25 09:00 01/05/25 09:24 Potassium Chloride 20 Meq Er Tablet PO 20 meq DAILY LENNY Administration Rifaximin 550 mg 01/05/25 09:00 01/05/25 09:24 Rifaximin 550 Mg Tablet PO 550 mg Q12HR LENNY Administration Vitamin D 25 mcg 01/05/25 09:00 01/05/25 09:24 Cholecalciferol (Vitamin D3) 25 Mcg (1,000 Units) Tablet PO 25 mcg DAILY LENNY Administration Radiology Results: ITS Impressions Chest X-Ray 01/04/25 19:20 IMPRESSION: 1. No acute cardiopulmonary findings given portable technique. Chest/Abdomen/Pelvis CTA 01/05/25 08:09 IMPRESSION: 1. Cirrhosis of the liver with portal venous hypertension. 2. Large volume of ascites. 3. Nondiagnostic evaluation of the pulmonary arteries. Chest CTA 01/05/25 08:31 IMPRESSION: 1. Negative for pulmonary embolism. No acute process in the visualized chest. Incidental findings above Labs Labs: Laboratory Results - last 24 hr 01/04/25 01/04/25 01/05/25 20:17 23:08 04:52 WBC 5.6 5.2 RBC 3.30 L 3.36 L Hgb 10.5 L 10.4 L Hct 32.6 L 34.5 L MCV 98.8 102.7 H MCH 31.8 31.0 MCHC 32.2 30.1 L RDW 16.8 H 17.0 H Plt Count 103 L 107 L MPV 9.7 9.6 Immature Gran % (Auto) 0.2 0.4 Neut % (Auto) 63.8 55.5 Lymph % (Auto) 16.6 L 19.6 [place] % (Auto) 14.8 H 18.4 H Eos % (Auto) 3.2 4.4 Baso % (Auto) 1.4 H 1.7 H Lymph # (Auto) 0.93 1.02 [place] # (Auto) 0.8 H 1.0 H Eos # (Auto) 0.2 0.2 Baso # (Auto) 0.1 0.1 Abs Immat Gran (auto) 0.01 0.02 Absolute Neuts (auto) 3.6 2.9 Absolute Nucleated RBC 0.000 0.000 Nucleated RBC % 0.0 0.0 % Immature Plt Fraction 1.4 PT 16.7 H INR 1.4 APTT 36.4 D-Dimer 2.84 H Sodium 132 L 131 L Potassium 3.3 L 3.9 Chloride 106 108 H Carbon Dioxide 20 L 14 L Anion Gap 6 9 BUN 17 17 Creatinine 0.93 0.93 Estim Creat Clear Calc 72 73 Estimated GFR > 60 > 60 Glucose 96 89 Calcium 8.4 8.4 Magnesium 2.2 2.3 Total Bilirubin 3.0 H 3.1 H AST 39 H 39 H ALT 17 18 Alkaline Phosphatase 139 H 129 H Troponin I < 0.012 < 0.012 Total Protein 6.4 6.6 Albumin 2.9 L 3.0 L Lipase 188 TSH 24.500 H Free T4 1.25 Quality VTE Prophylaxis VTE prophylaxis: mechanical ordered and pharmacologic ordered Hospitalist MIPS Advance Care Plan I have confirmed that the patient's Advanced Care Plan is present, code status is documented, or surrogate decision maker is listed in patient medical record.: Yes Medication Reconciliation I have utilized all available resources to obtain, update and review the patients current medications (includes all prescriptions, OTC, herbals, cannabis, and nutritional supplements).: Yes
[2025-01-05] MEDS: oxyCODONE HCL (*CRX) 5 MG TAB IR PO ×2 (12:10→17:49)
[2025-01-05] MEDS: SPIRONOLACTONE 25 MG TABLET PO (12:13)
[2025-01-05] MEDS: oxyCODONE HCL (*CRX) 2.5 MG TAB IR PO (20:47)
[2025-01-06] VITALS (7 sets, daily range): BP systolic 86–96; BP diastolic 50–51; PULSE 66–79; RESP 18–20; TEMP 36.3–36.6; O2SAT 93–96
[2025-01-06] MEDS: LEVOTHYROXINE SODIUM 150 MCG TABLET PO (05:09)
[2025-01-06] MEDS: PANTOPRAZOLE 40 MG TABLET PO ×2 (08:47→20:42)
[2025-01-06] MEDS: BUMETANIDE 1 MG TABLET 2 MG PO (08:47)
[2025-01-06] MEDS: CHOLECALCIFEROL (VITAMIN D3) 25 MCG (1,000 UNITS) TABLET PO (08:48)
[2025-01-06] MEDS: POTASSIUM CHLORIDE 20 MEQ ER TABLET PO (08:48)
[2025-01-06] MEDS: oxyCODONE HCL (*CRX) 5 MG TAB IR PO ×2 (08:48→17:17)
[2025-01-06] MEDS: FOLIC ACID 1 MG TABLET PO (08:48)
[2025-01-06] MEDS: SPIRONOLACTONE 25 MG TABLET PO (08:48)
--- NOTE | 2025-01-06 09:21 | P.PNIM_ITS ---
Progress Note: A&P Assessment and Plan (1) Cirrhosis of liver: Code(s): K74.60 - Unspecified cirrhosis of liver Status: Acute (2) Ascites: Qualifiers: Ascites type: other type Qualified Code(s): R18.8 - Other ascites Code(s): R18.8 - Other ascites Status: Acute (3) Chronic respiratory failure with hypoxia, on home O2 therapy: Code(s): J96.11 - Chronic respiratory failure with hypoxia; Z99.81 - Dependence on supplemental oxygen Status: Acute Plan Cirrhosis Ascites Not sure of her Bumex dose, likely 2mg per prior discharge summary. Not on spironolactone --Continue Bumex 2mg daiy --Add spironolactone 25mg daily & increase as tolerated --Paracentesis ordered. Continuing home Coreg, bumetanide, rifaximin. --Pain with ascites--low dose tylenol, oxycodone, morphine prn --Doesn't have a PCP. Goes to hepatology at [facility] but hasn't gone recent. Resumed spironolactone Elevated TSH TSH >24. Increase synthroid from 125<150 daily. She reports taking regularly Recheck in 6 weeks. Acute respiratory failure Breathing well on 3 L. Has had gradually increasing shortness of breath and ascites in the last week. Reporting her oxygen tank is not functioning --care coordination consult to help arrange home O2 again. FULL CODE SCDs, Start heparin for DVT prophylaxis, Saline lock IV Time Spent With Patient Time: 54 minutes Subjective Date/time seen: 01/06/25 11:35 Interval history: s/p paracentesis yesterday, 6 liters off, 2 doses of albumin Creatinine slightly higher, 0.93<1.18, sodium trending down to 129. Bilirubin improved slightly Blood pressure soft. Hasn't been out of bed yet today Review of Systems Review of Systems: All systems reviewed & are unremarkable except as noted in HPI and below (Subjective) Exam Narrative: General - Awake and alert. No acute distress Eyes - PERRLA, EOM intact ENT - No thrush, No erythema Neck - No noticeable or palpable swelling Lymph Nodes - No lymphadenopathy Cardiovascular - RRR no m/r/g, no JVD Lungs: No wheezing, no use of accessory muscles, no crackles. Decreased in the bases Skin - Skin warm and dry, no wounds or rashes Abdomen - Normal bowel sounds, abdomen tight and nontender, improved distention Extremities - Pitting LE edema, no cyanosis or clubbing Musculoskeletal - 5/5 strength, normal range of motion, no swollen or erythematous joints. Neurological ? Alert and oriented x 3, CN 2-12 grossly intact. Psych: Normal mood and affect Objective Data Vital Signs Vital Signs: Vital Signs - 24 hr 01/05/25 09:24 01/05/25 09:25 01/05/25 14:00 Temperature 99.2 F Pulse Rate 95 80 Respiratory Rate 14 Blood Pressure 117/74 Pulse Oximetry 94 93 Oxygen Delivery Nasal Cannula Oxygen Flow Rate 3 01/05/25 20:00 01/05/25 20:35 01/05/25 20:51 Temperature 97.0 F L Pulse Rate 60 61 60 Respiratory Rate 18 18 Blood Pressure 90/51 L Pulse Oximetry 95 95 Oxygen Delivery Nasal Cannula Oxygen Flow Rate 3 01/06/25 04:30 01/06/25 08:45 01/06/25 08:47 Temperature 97.7 F Pulse Rate 79 79 Respiratory Rate 18 Blood Pressure 95/51 L Pulse Oximetry 95 95 Oxygen Delivery Nasal Cannula Oxygen Flow Rate 3 Intake/Output Intake/Output: Intake & Output 01/03/25 01/04/25 01/05/25 01/06/25 23:59 23:59 23:59 23:59 Intake Total 1390 710 Output Total 5300 300 Balance -3910 410 Meds/Results Medications: Active Medications Generic Name Dose Route Start Last Admin Trade Name Freq PRN Reason Stop Dose Admin Acetaminophen 325 mg 01/05/25 11:33 Acetaminophen 325 Mg Tablet PO Q6H PRN Mild Pain (1-3) or Fever Bumetanide 2 mg 01/05/25 09:00 01/06/25 08:47 Bumetanide 1 Mg Tablet PO 2 mg DAILY LENNY Administration Carvedilol 3.125 mg 01/05/25 09:00 01/06/25 08:47 Carvedilol 3.125 Mg Tablet PO 3.125 mg Q12HR LENNY Administration Docusate Sodium 100 mg 01/05/25 05:55 Docusate Sodium 100 Mg Capsule PO Q12H PRN Constipation Folic Acid 1 mg 01/05/25 09:00 01/06/25 08:48 Folic Acid 1 Mg Tablet PO 1 mg DAILY LENNY Administration Heparin Sodium (Porcine) 5,000 units 01/05/25 22:00 01/06/25 05:09 Heparin Sodium 5,000 Units/Ml Vial SUB-Q 5,000 units Q8HR LENNY Administration Lactulose 20 gm 01/05/25 06:00 01/06/25 05:09 Lactulose 20 Gm/30 Ml Udc PO Not Given Q6HR [facility] Levothyroxine Sodium 150 mcg 01/06/25 06:30 01/06/25 05:09 Levothyroxine Sodium 150 Mcg Tablet PO 150 mcg DAILY@0630 LENNY Administration Morphine Sulfate 2 mg 01/05/25 11:32 Morphine Sulfate (*Crx) 4 Mg/Ml Inj IV PUSH Q4H PRN Breakthrough Pain Oxycodone HCl 2.5 mg 01/05/25 11:32 01/05/25 20:47 Oxycodone Hcl (*Crx) 2.5 Mg Tab Ir PO 2.5 mg Q4H PRN Administration Pain Rated 4-6 Oxycodone HCl 5 mg 01/05/25 11:32 01/06/25 08:48 Oxycodone Hcl (*Crx) 5 Mg Tab Ir PO 5 mg Q4H PRN Administration Pain Rated 7-10 Pantoprazole Sodium 40 mg 01/05/25 09:00 01/06/25 08:47 Pantoprazole 40 Mg Tablet PO 40 mg Q12HR LENNY Administration Potassium Chloride 20 meq 01/05/25 09:00 01/06/25 08:48 Potassium Chloride 20 Meq Er Tablet PO 20 meq DAILY LENNY Administration Rifaximin 550 mg 01/05/25 09:00 01/06/25 08:47 Rifaximin 550 Mg Tablet PO 550 mg Q12HR LENNY Administration Spironolactone 25 mg 01/05/25 14:00 01/06/25 08:48 Spironolactone 25 Mg Tablet PO 25 mg DAILY LENNY Administration Vitamin D 25 mcg 01/05/25 09:00 01/06/25 08:48 Cholecalciferol (Vitamin D3) 25 Mcg (1,000 Units) Tablet PO 25 mcg DAILY LENNY Administration Radiology Results: ITS Impressions Chest X-Ray 01/04/25 19:20 IMPRESSION: 1. No acute cardiopulmonary findings given portable technique. Chest/Abdomen/Pelvis CTA 01/05/25 08:09 IMPRESSION: 1. Cirrhosis of the liver with portal venous hypertension. 2. Large volume of ascites. 3. Nondiagnostic evaluation of the pulmonary arteries. Chest CTA 01/05/25 08:31 IMPRESSION: 1. Negative for pulmonary embolism. No acute process in the visualized chest. Incidental findings above Paracentesis Ultrasound 01/05/25 15:12 IMPRESSION: 1. Successful ultrasound-guided paracentesis yielding 6000 mL of dark fidencio- colored fluid. Quality VTE Prophylaxis VTE prophylaxis: mechanical ordered and pharmacologic ordered Hospitalist MIPS Advance Care Plan I have confirmed that the patient's Advanced Care Plan is present, code status is documented, or surrogate decision maker is listed in patient medical record.: Yes Medication Reconciliation I have utilized all available resources to obtain, update and review the patients current medications (includes all prescriptions, OTC, herbals, cannabis, and nutritional supplements).: Yes
[2025-01-06 09:45] LABS: Hematocrit 26.9 % (37.0-47.0); Hemoglobin 8.7 g/dL (12.0-15.0); Immature Granulocyte Percent A 0.2 % (0-0.5); Immature Platelet Fraction Pct 1.5 % (0.9-11.2); Lymphocytes Absolute Auto 1.05 K/mm3 (0.9-3.2); Mean Corpuscular HGB Conc 32.3 g/dl (32-36); Mean Corpuscular Hemoglobin 32.0 pg (26-34); Mean Corpuscular Volume 98.9 fl (80-100); Nucleated Red Blood Cells Absolute Auto 0.000 K/mm3 (0.0-0.012); Nucleated Red Blood Cells Perc 0.0 % (0.0-0.2); Platelet Count Result 93 k/mm3 (150-375); Red Blood Count 2.72 M/mm3 (4.2-5.4); White Blood Count 5.1 K/mm3 (4.5-10.0)
[2025-01-06 09:55] LABS: INR 1.4; Prothrombin Time 17.0 Seconds (11.1-14.7)
[2025-01-06 10:33] LABS: Alanine Aminotransferase 14 U/L (6-35); Albumin Level 2.3 g/dL (3.5-5.1); Alkaline Phosphatase 77 U/L (38-126); Anion Gap 4 mmol/L (4-12); Aspartate Amino Transferase 32 U/L (14-36); Bilirubin,Total 2.6 mg/dL (0.2-1.3); Blood Urea Nitrogen 20 mg/dL (7-17); Calcium 8.1 mg/dL (8.4-10.2); Carbon Dioxide 19 mmol/L (22-30); Chloride 106 mmol/L (98-107); Estimated CRCL calculation 58 ml/min; Estimated Glomerular Filt Rate 48; Glucose 100 mg/dL (65-110); Potassium 3.7 mmol/L (3.4-5.0); Sodium 129 mmol/L (137-145); Total Protein 5.5 g/dL (6.3-8.2)
[2025-01-06] MEDS: ALBUMIN HUMAN 25% 25 GM/100 ML 100 ML IVPB ×2 (11:48→17:17)
[2025-01-06] MEDS: LACTULOSE 20 GM/30 ML UDC PO (17:18)
[2025-01-06 19:36] LABS: Hematocrit 24.4 % (37.0-47.0); Hemoglobin 7.8 g/dL (12.0-15.0); Immature Granulocyte Percent A 0.2 % (0-0.5); Immature Platelet Fraction Pct 1.8 % (0.9-11.2); Lymphocytes Absolute Auto 0.89 K/mm3 (0.9-3.2); Mean Corpuscular HGB Conc 32.0 g/dl (32-36); Mean Corpuscular Hemoglobin 32.0 pg (26-34); Mean Corpuscular Volume 100.0 fl (80-100); Nucleated Red Blood Cells Absolute Auto 0.000 K/mm3 (0.0-0.012); Nucleated Red Blood Cells Perc 0.0 % (0.0-0.2); Red Blood Count 2.44 M/mm3 (4.2-5.4); White Blood Count 4.4 K/mm3 (4.5-10.0)
[2025-01-06 19:37] LABS: Anion Gap 7 mmol/L (4-12); Blood Urea Nitrogen 22 mg/dL (7-17); Calcium 8.0 mg/dL (8.4-10.2); Carbon Dioxide 18 mmol/L (22-30); Chloride 105 mmol/L (98-107); Estimated CRCL calculation 50 ml/min; Estimated Glomerular Filt Rate 40; Glucose 112 mg/dL (65-110); Potassium 3.9 mmol/L (3.4-5.0); Sodium 130 mmol/L (137-145)
[2025-01-06 19:57] LABS: Platelet Count Result 79 k/mm3 (150-375)
[2025-01-06] MEDS: oxyCODONE HCL (*CRX) 2.5 MG TAB IR PO (20:41)
[2025-01-07] VITALS (9 sets, daily range): BP systolic 92–108; BP diastolic 41–69; PULSE 72–81; RESP 14–18; TEMP 36.4–36.6; O2SAT 93–98
[2025-01-07] MEDS: LACTULOSE 20 GM/30 ML UDC PO ×3 (00:46→17:46)
[2025-01-07 05:49] LABS: Hematocrit 25.8 % (37.0-47.0); Hemoglobin 8.1 g/dL (12.0-15.0); Immature Granulocyte Percent A 0.2 % (0-0.5); Immature Platelet Fraction Pct 1.6 % (0.9-11.2); Lymphocytes Absolute Auto 1.03 K/mm3 (0.9-3.2); Mean Corpuscular HGB Conc 31.4 g/dl (32-36); Mean Corpuscular Hemoglobin 31.4 pg (26-34); Mean Corpuscular Volume 100.0 fl (80-100); Nucleated Red Blood Cells Absolute Auto 0.000 K/mm3 (0.0-0.012); Nucleated Red Blood Cells Perc 0.0 % (0.0-0.2); Platelet Count Result 86 k/mm3 (150-375); Red Blood Count 2.58 M/mm3 (4.2-5.4); White Blood Count 4.7 K/mm3 (4.5-10.0)
[2025-01-07] MEDS: LEVOTHYROXINE SODIUM 150 MCG TABLET PO (05:55)
[2025-01-07] MEDS: oxyCODONE HCL (*CRX) 5 MG TAB IR PO ×2 (05:59→20:35)
[2025-01-07 06:12] LABS: Alanine Aminotransferase 12 U/L (6-35); Albumin Level 2.6 g/dL (3.5-5.1); Alkaline Phosphatase 82 U/L (38-126); Anion Gap 7 mmol/L (4-12); Aspartate Amino Transferase 28 U/L (14-36); Bilirubin,Total 2.3 mg/dL (0.2-1.3); Blood Urea Nitrogen 23 mg/dL (7-17); Calcium 8.2 mg/dL (8.4-10.2); Carbon Dioxide 18 mmol/L (22-30); Chloride 105 mmol/L (98-107); Estimated CRCL calculation 53 ml/min; Estimated Glomerular Filt Rate 43; Glucose 95 mg/dL (65-110); Potassium 4.1 mmol/L (3.4-5.0); Sodium 130 mmol/L (137-145); Total Protein 5.4 g/dL (6.3-8.2)
[2025-01-07] MEDS: BUMETANIDE 1 MG TABLET 2 MG PO (08:30)
[2025-01-07] MEDS: PANTOPRAZOLE 40 MG TABLET PO ×2 (08:31→20:34)
[2025-01-07] MEDS: FOLIC ACID 1 MG TABLET PO (08:31)
[2025-01-07] MEDS: CHOLECALCIFEROL (VITAMIN D3) 25 MCG (1,000 UNITS) TABLET PO (08:31)
[2025-01-07] MEDS: POTASSIUM CHLORIDE 20 MEQ ER TABLET PO (08:32)
--- NOTE | 2025-01-07 09:04 | PM.IMPN ---
Progress Note: A&P Assessment and Plan (1) Cirrhosis of liver: Code(s): K74.60 - Unspecified cirrhosis of liver Status: Acute (2) Ascites: Qualifiers: Ascites type: other type Qualified Code(s): R18.8 - Other ascites Code(s): R18.8 - Other ascites Status: Acute (3) Chronic respiratory failure with hypoxia, on home O2 therapy: Code(s): J96.11 - Chronic respiratory failure with hypoxia; Z99.81 - Dependence on supplemental oxygen Status: Acute Plan Cirrhosis Ascites Not sure of her Bumex dose, likely 2mg per prior discharge summary. Not on spironolactone --Continue Bumex 2mg, increase to 2mg IV BID, albumin overnight to prevent hypotension --Add spironolactone 25mg daily & increase as tolerated --Paracentesis ordered. Continuing home Coreg, bumetanide, rifaximin. --Pain with ascites--low dose tylenol, oxycodone, morphine prn --Doesn't have a PCP. Goes to hepatology at [facility] but hasn't gone recent. Resumed spironolactone Hypotension BP low yesterday, afebrile. BP improved today Follow temps, WBC, procalcitonin, CRP Abdominal pain Second to ascites/distention above If worsening will need a dx para to rule out SBP Elevated TSH TSH >24. Increase synthroid from 125<150 daily. She reports taking regularly Recheck in 6 weeks. Acute respiratory failure Breathing well on 3 L. Has had gradually increasing shortness of breath and ascites in the last week. Reporting her oxygen tank is not functioning --care coordination consult to help arrange home O2 again. FULL CODE SCDs, heparin for DVT prophylaxis, Saline lock IV Time Spent With Patient Time: 57 minutes Subjective Date/time seen: 01/07/25 09:04 Interval history: Abdomen tender, distended. Feels worse today. Hypotensive last night. BP improved this morning Creatinine 1.37>1.3 Review of Systems Review of Systems: All systems reviewed & are unremarkable except as noted in HPI and below (Subjective) Exam Narrative: General - Awake and alert. No acute distress Eyes - PERRLA, EOM intact ENT - No thrush, No erythema Neck - No noticeable or palpable swelling Lymph Nodes - No lymphadenopathy Cardiovascular - RRR no m/r/g, no JVD Lungs: No wheezing, no use of accessory muscles, no crackles. Decreased in the bases Skin - Skin warm and dry, no wounds or rashes Abdomen - Normal bowel sounds, abdomen tight and nontender, improved distention Extremities - Pitting LE edema, no cyanosis or clubbing Musculoskeletal - 5/5 strength, normal range of motion, no swollen or erythematous joints. Neurological ? Alert and oriented x 3, CN 2-12 grossly intact. Psych: Normal mood and affect Objective Data Vital Signs Vital Signs: Vital Signs - 24 hr 01/06/25 14:00 01/06/25 20:00 01/06/25 20:39 Temperature 97.3 F L 97.9 F Pulse Rate 66 77 Respiratory Rate 18 20 Blood Pressure 86/50 L 96/50 L Pulse Oximetry 96 93 93 Oxygen Delivery Nasal Cannula Oxygen Flow Rate 3 01/06/25 20:42 01/07/25 00:00 01/07/25 04:00 Temperature 97.7 F 97.7 F Pulse Rate 77 72 76 Respiratory Rate 18 18 Blood Pressure 93/41 L 92/51 L Pulse Oximetry 94 93 Oxygen Delivery Oxygen Flow Rate 01/07/25 08:36 Temperature 97.8 F Pulse Rate 77 Respiratory Rate 16 Blood Pressure 100/56 L Pulse Oximetry 95 Oxygen Delivery Oxygen Flow Rate Intake/Output Intake/Output: Intake & Output 01/04/25 01/05/25 01/06/25 01/07/25 23:59 23:59 23:59 23:59 Intake Total 1390 1290 660 Output Total 5300 600 300 Balance -3910 690 360 Meds/Results Medications: Active Medications Generic Name Dose Route Start Last Admin Trade Name Freq PRN Reason Stop Dose Admin Acetaminophen 325 mg 01/05/25 11:33 Acetaminophen 325 Mg Tablet PO Q6H PRN Mild Pain (1-3) or Fever Bumetanide 2 mg 01/05/25 09:00 01/07/25 08:30 Bumetanide 1 Mg Tablet PO 2 mg DAILY LENNY Administration Carvedilol 3.125 mg 01/05/25 09:00 01/07/25 08:33 Carvedilol 3.125 Mg Tablet PO Not Given Q12HR LENNY Docusate Sodium 100 mg 01/05/25 05:55 Docusate Sodium 100 Mg Capsule PO Q12H PRN Constipation Folic Acid 1 mg 01/05/25 09:00 01/07/25 08:31 Folic Acid 1 Mg Tablet PO 1 mg DAILY LENNY Administration Heparin Sodium (Porcine) 5,000 units 01/05/25 22:00 01/07/25 08:32 Heparin Sodium 5,000 Units/Ml Vial SUB-Q 5,000 units Q8HR LENNY Administration Lactulose 20 gm 01/05/25 06:00 01/07/25 08:32 Lactulose 20 Gm/30 Ml Udc PO 20 gm Q6HR LENNY Administration Levothyroxine Sodium 150 mcg 01/06/25 06:30 01/07/25 05:55 Levothyroxine Sodium 150 Mcg Tablet PO 150 mcg DAILY@0630 LENNY Administration Morphine Sulfate 2 mg 01/05/25 11:32 Morphine Sulfate (*Crx) 4 Mg/Ml Inj IV PUSH Q4H PRN Breakthrough Pain Oxycodone HCl 2.5 mg 01/05/25 11:32 01/06/25 20:41 Oxycodone Hcl (*Crx) 2.5 Mg Tab Ir PO 2.5 mg Q4H PRN Administration Pain Rated 4-6 Oxycodone HCl 5 mg 01/05/25 11:32 01/07/25 05:59 Oxycodone Hcl (*Crx) 5 Mg Tab Ir PO 5 mg Q4H PRN Administration Pain Rated 7-10 Pantoprazole Sodium 40 mg 01/05/25 09:00 01/07/25 08:31 Pantoprazole 40 Mg Tablet PO 40 mg Q12HR LENNY Administration Potassium Chloride 20 meq 01/05/25 09:00 01/07/25 08:32 Potassium Chloride 20 Meq Er Tablet PO 20 meq DAILY LENNY Administration Rifaximin 550 mg 01/05/25 09:00 01/07/25 08:31 Rifaximin 550 Mg Tablet PO 550 mg Q12HR LENNY Administration Spironolactone 25 mg 01/05/25 14:00 01/07/25 08:33 Spironolactone 25 Mg Tablet PO Not Given DAILY [facility] Vitamin D 25 mcg 01/05/25 09:00 01/07/25 08:31 Cholecalciferol (Vitamin D3) 25 Mcg (1,000 Units) Tablet PO 25 mcg DAILY LENNY Administration Radiology Results: ITS Impressions Chest X-Ray 01/04/25 19:20 IMPRESSION: 1. No acute cardiopulmonary findings given portable technique. Chest/Abdomen/Pelvis CTA 01/05/25 08:09 IMPRESSION: 1. Cirrhosis of the liver with portal venous hypertension. 2. Large volume of ascites. 3. Nondiagnostic evaluation of the pulmonary arteries. Chest CTA 01/05/25 08:31 IMPRESSION: 1. Negative for pulmonary embolism. No acute process in the visualized chest. Incidental findings above Paracentesis Ultrasound 01/05/25 15:12 IMPRESSION: 1. Successful ultrasound-guided paracentesis yielding 6000 mL of dark fidencio-colored fluid. Labs Labs: Laboratory Results - last 24 hr 01/06/25 01/06/25 01/07/25 09:36 19:19 05:33 WBC 5.1 4.4 L 4.7 RBC 2.72 L 2.44 L 2.58 L Hgb 8.7 L 7.8 L 8.1 L Hct 26.9 L 24.4 L 25.8 L MCV 98.9 100.0 100.0 MCH 32.0 32.0 31.4 MCHC 32.3 32.0 31.4 L RDW 17.2 H 17.2 H 17.1 H Plt Count 93 L 79 L 86 L MPV 9.5 9.5 9.3 Immature Gran % (Auto) 0.2 0.2 0.2 Neut % (Auto) 56.6 59.3 53.6 Lymph % (Auto) 20.8 20.0 22.0 [place] % (Auto) 16.0 H 15.1 H 18.6 H Eos % (Auto) 5.0 H 4.3 4.5 H Baso % (Auto) 1.4 H 1.1 1.1 Lymph # (Auto) 1.05 0.89 L 1.03 [place] # (Auto) 0.8 H 0.7 H 0.9 H Eos # (Auto) 0.3 0.2 0.2 Baso # (Auto) 0.1 0.1 0.1 Abs Immat Gran (auto) 0.01 0.01 0.01 Absolute Neuts (auto) 2.9 2.6 2.5 Absolute Nucleated RBC 0.000 0.000 0.000 Nucleated RBC % 0.0 0.0 0.0 % Immature Plt Fraction 1.5 1.8 1.6 PT 17.0 H INR 1.4 Sodium 129 L 130 L 130 L Potassium 3.7 3.9 4.1 Chloride 106 105 105 Carbon Dioxide 19 L 18 L 18 L Anion Gap 4 7 7 BUN 20 H 22 H 23 H Creatinine 1.18 H 1.37 H 1.30 H Estim Creat Clear Calc 58 50 53 Estimated GFR 48 L 40 L 43 L Glucose 100 112 H 95 Lactic Acid 1.2 Calcium 8.1 L 8.0 L 8.2 L Total Bilirubin 2.6 H 2.3 H Direct Bilirubin 0.0 0.0 AST 32 28 ALT 14 12 Alkaline Phosphatase 77 82 Total Protein 5.5 L 5.4 L Albumin 2.3 L 2.6 L Quality VTE Prophylaxis VTE prophylaxis: mechanical ordered and pharmacologic ordered Hospitalist MIPS Advance Care Plan I have confirmed that the patient's Advanced Care Plan is present, code status is documented, or surrogate decision maker is listed in patient medical record.: Yes Medication Reconciliation I have utilized all available resources to obtain, update and review the patients current medications (includes all prescriptions, OTC, herbals, cannabis, and nutritional supplements).: Yes
[2025-01-07] MEDS: ALBUMIN HUMAN 25% 25 GM/100 ML 100 ML IVPB (17:46)
[2025-01-07] MEDS: BUMETANIDE INJ 1 MG/4 ML VIAL 2 MG IV PUSH (17:46)
[2025-01-07] MEDS: MORPHINE SULFATE (*CRX) 4 MG/ML INJ 2 MG IV PUSH (23:16)
[2025-01-08] VITALS (8 sets, daily range): BP systolic 111–125; BP diastolic 51–68; PULSE 78–93; RESP 16–20; TEMP 36.4–36.7; O2SAT 92–99
[2025-01-08] MEDS: MORPHINE SULFATE (*CRX) 4 MG/ML INJ 2 MG IV PUSH ×2 (03:29→21:30)
[2025-01-08 05:14] LABS: Hematocrit 28.0 % (37.0-47.0); Hemoglobin 9.0 g/dL (12.0-15.0); Immature Granulocyte Percent A 0.4 % (0-0.5); Immature Platelet Fraction Pct 2.1 % (0.9-11.2); Lymphocytes Absolute Auto 0.96 K/mm3 (0.9-3.2); Mean Corpuscular HGB Conc 32.1 g/dl (32-36); Mean Corpuscular Hemoglobin 32.1 pg (26-34); Mean Corpuscular Volume 100.0 fl (80-100); Nucleated Red Blood Cells Absolute Auto 0.000 K/mm3 (0.0-0.012); Nucleated Red Blood Cells Perc 0.0 % (0.0-0.2); Platelet Count Result 91 k/mm3 (150-375); Red Blood Count 2.80 M/mm3 (4.2-5.4); White Blood Count 5.5 K/mm3 (4.5-10.0)
[2025-01-08 05:35] LABS: Alanine Aminotransferase 12 U/L (6-35); Albumin Level 3.0 g/dL (3.5-5.1); Alkaline Phosphatase 105 U/L (38-126); Anion Gap 7 mmol/L (4-12); Aspartate Amino Transferase 32 U/L (14-36); Bilirubin,Total 2.3 mg/dL (0.2-1.3); Blood Urea Nitrogen 21 mg/dL (7-17); Calcium 8.5 mg/dL (8.4-10.2); Carbon Dioxide 18 mmol/L (22-30); Chloride 108 mmol/L (98-107); Estimated CRCL calculation 56 ml/min; Estimated Glomerular Filt Rate 46; Glucose 84 mg/dL (65-110); Potassium 3.7 mmol/L (3.4-5.0); Sodium 133 mmol/L (137-145); Total Protein 5.9 g/dL (6.3-8.2)
[2025-01-08] MEDS: LEVOTHYROXINE SODIUM 150 MCG TABLET PO (05:40)
[2025-01-08] MEDS: LACTULOSE 20 GM/30 ML UDC PO ×3 (05:40→17:19)
[2025-01-08] MEDS: ALBUMIN HUMAN 25% 25 GM/100 ML 100 ML IVPB (08:30)
[2025-01-08] MEDS: SPIRONOLACTONE 25 MG TABLET 100 MG PO (08:31)
[2025-01-08] MEDS: PANTOPRAZOLE 40 MG TABLET PO ×2 (08:31→21:28)
[2025-01-08] MEDS: FOLIC ACID 1 MG TABLET PO (08:31)
[2025-01-08] MEDS: CHOLECALCIFEROL (VITAMIN D3) 25 MCG (1,000 UNITS) TABLET PO (08:31)
[2025-01-08] MEDS: BUMETANIDE INJ 1 MG/4 ML VIAL 2 MG IV PUSH (08:31)
[2025-01-08] MEDS: oxyCODONE HCL (*CRX) 5 MG TAB IR PO ×2 (08:31→12:58)
[2025-01-08] MEDS: POTASSIUM CHLORIDE 20 MEQ ER TABLET PO (08:31)
--- NOTE | 2025-01-08 11:07 | PM.IMPN ---
Progress Note: A&P Assessment and Plan (1) Cirrhosis of liver: Code(s): K74.60 - Unspecified cirrhosis of liver Status: Acute (2) Ascites: Qualifiers: Ascites type: other type Qualified Code(s): R18.8 - Other ascites Code(s): R18.8 - Other ascites Status: Acute (3) Chronic respiratory failure with hypoxia, on home O2 therapy: Code(s): J96.11 - Chronic respiratory failure with hypoxia; Z99.81 - Dependence on supplemental oxygen Status: Acute Plan Decompensated Cirrhosis Ascites Not sure of her Bumex dose at home, likely 2mg per prior discharge summary. Not on spironolactone, started S/p Paracentesis with 6 liters off 01/05, albumin post procedure. Bilirubin improved/stable 3.1>2.3 Creatinine slightly more elevated post procedure --Continue Bumex 2mg, increased to 2mg IV BID 01/07 with albumin overnight to prevent hypotension since increased distention/pain & BP stable Continuing home Coreg, bumetanide, rifaximin. --Pain with ascites--low dose tylenol, oxycodone, morphine prn --Doesn't have a PCP. Goes to hepatology at [facility] but hasn't gone recently. --Consult GI for decompensated cirrhosis Abdominal pain Abdomen more distended and painful despite diuretics. Repeat Paracentesis--diagnostic and therapeutic Start empiric Ceftriaxone 2G daily until able to rule out SBP Consider CT abd/pelvis if abdominal pain not resolving. Portable KUB today Hypotension BP low yesterday, afebrile. BP improved today Follow temps, WBC, procalcitonin, CRP Abdominal pain Second to ascites/distention above If worsening will need a dx para to rule out SBP Elevated TSH TSH >24. Increase synthroid from 125<150 daily. She reports taking regularly Recheck in 6 weeks. Acute respiratory failure Breathing well on 3 L. Has had gradually increasing shortness of breath and ascites in the last week. Reporting her oxygen tank is not functioning. Care coordination discussed with respiratory and unclear to me what the problem is. Patient says machine continously beeps and she can't sleep with the noise. Company has reportedly come out more than once an there are no problems. Discuss with respiratory prior to discahrge . FULL CODE SCDs, heparin for DVT prophylaxis, Saline lock IV Time Spent With Patient Time: 57 minutes Subjective Date/time seen: 01/08/25 11:07 Interval history: Abdomen more tender and distended. Feels worse today despite diuretics. WBC normal and culture was negative but starting empiric ceftriaxone while ruling out SBP since pain worsening Doesn't feel she's voiding much with diuretics. May need to increase. Strict I&O BP improved this morning Creatinine 1.37>1.3>1.23 Review of Systems Review of Systems: All systems reviewed & are unremarkable except as noted in HPI and below (Subjective) Exam Narrative: General - Awake and alert. No acute distress Eyes - PERRLA, EOM intact ENT - No thrush, No erythema Neck - No noticeable or palpable swelling Lymph Nodes - No lymphadenopathy Cardiovascular - RRR no m/r/g, no JVD Lungs: No wheezing, no use of accessory muscles, no crackles. Decreased in the bases Skin - Skin warm and dry, no wounds or rashes Abdomen - Normal bowel sounds, abdomen tight and nontender, improved distention Extremities - Pitting LE edema, no cyanosis or clubbing Musculoskeletal - 5/5 strength, normal range of motion, no swollen or erythematous joints. Neurological ? Alert and oriented x 3, CN 2-12 grossly intact. Psych: Normal mood and affect Objective Data Vital Signs Vital Signs: Vital Signs - 24 hr 01/07/25 12:00 01/07/25 15:47 01/07/25 19:54 Temperature 97.9 F 97.5 F L 97.8 F Pulse Rate 72 72 81 Respiratory Rate 14 18 18 Blood Pressure 108/69 105/60 103/62 Pulse Oximetry 95 97 98 Oxygen Delivery Oxygen Flow Rate 01/07/25 20:00 01/07/25 21:33 01/08/25 00:00 Temperature 97.8 F Pulse Rate 80 79 Respiratory Rate 18 20 Blood Pressure 118/51 L Pulse Oximetry 98 97 98 Oxygen Delivery Nasal Cannula Nasal Cannula Oxygen Flow Rate 3 3 01/08/25 04:00 01/08/25 08:30 01/08/25 08:40 Temperature 97.6 F 97.6 F Pulse Rate 93 85 Respiratory Rate 20 16 Blood Pressure 119/60 111/59 L Pulse Oximetry 92 96 96 Oxygen Delivery Nasal Cannula Oxygen Flow Rate 3 Intake/Output Intake/Output: Intake & Output 01/05/25 01/06/25 01/07/2511/25 23:59 23:59 23:59 23:59 Intake Total 1390 1390 1790 360 Output Total 5300 600 300 Balance -3910 790 1490 360 Meds/Results Medications: Active Medications Generic Name Dose Route Start Last Admin Trade Name Freq PRN Reason Stop Dose Admin Acetaminophen 325 mg 01/05/25 11:33 Acetaminophen 325 Mg Tablet PO Q6H PRN Mild Pain (1-3) or Fever Bumetanide 2 mg 01/08/25 17:00 Bumetanide 1 Mg Tablet PO BID [facility] Carvedilol 3.125 mg 01/05/25 09:00 01/07/25 08:33 Carvedilol 3.125 Mg Tablet PO Not Given On Hold: 01/07/25 09:08 Q12HR LENNY Docusate Sodium 100 mg 01/05/25 05:55 Docusate Sodium 100 Mg Capsule PO Q12H PRN Constipation Folic Acid 1 mg 01/05/25 09:00 01/08/25 08:31 Folic Acid 1 Mg Tablet PO 1 mg DAILY LENNY Administration Heparin Sodium (Porcine) 5,000 units 01/05/25 22:00 01/08/25 05:40 Heparin Sodium 5,000 Units/Ml Vial SUB-Q 5,000 units Q8HR LENNY Administration Lactulose 20 gm 01/05/25 06:00 01/08/25 05:40 Lactulose 20 Gm/30 Ml Udc PO 20 gm Q6HR LENNY Administration Levothyroxine Sodium 150 mcg 01/06/25 06:30 01/08/25 05:40 Levothyroxine Sodium 150 Mcg Tablet PO 150 mcg DAILY@0630 LENNY Administration Morphine Sulfate 2 mg 01/05/25 11:32 01/08/25 03:29 Morphine Sulfate (*Crx) 4 Mg/Ml Inj IV PUSH 2 mg Q4H PRN Administration Breakthrough Pain Oxycodone HCl 2.5 mg 01/05/25 11:32 01/06/25 20:41 Oxycodone Hcl (*Crx) 2.5 Mg Tab Ir PO 2.5 mg Q4H PRN Administration Pain Rated 4-6 Oxycodone HCl 5 mg 01/05/25 11:32 01/08/25 08:31 Oxycodone Hcl (*Crx) 5 Mg Tab Ir PO 5 mg Q4H PRN Administration Pain Rated 7-10 Pantoprazole Sodium 40 mg 01/05/25 09:00 01/08/25 08:31 Pantoprazole 40 Mg Tablet PO 40 mg Q12HR LENNY Administration Potassium Chloride 20 meq 01/05/25 09:00 01/08/25 08:31 Potassium Chloride 20 Meq Er Tablet PO 20 meq DAILY LENNY Administration Rifaximin 550 mg 01/05/25 09:00 01/08/25 08:31 Rifaximin 550 Mg Tablet PO 550 mg Q12HR LENNY Administration Spironolactone 100 mg 01/08/25 09:00 01/08/25 08:31 Spironolactone 25 Mg Tablet PO 100 mg DAILY LENNY Administration Vitamin D 25 mcg 01/05/25 09:00 01/08/25 08:31 Cholecalciferol (Vitamin D3) 25 Mcg (1,000 Units) Tablet PO 25 mcg DAILY LENNY Administration Radiology Results: ITS Impressions Chest X-Ray 01/04/25 19:20 IMPRESSION: 1. No acute cardiopulmonary findings given portable technique. Chest/Abdomen/Pelvis CTA 01/05/25 08:09 IMPRESSION: 1. Cirrhosis of the liver with portal venous hypertension. 2. Large volume of ascites. 3. Nondiagnostic evaluation of the pulmonary arteries. Chest CTA 01/05/25 08:31 IMPRESSION: 1. Negative for pulmonary embolism. No acute process in the visualized chest. Incidental findings above Paracentesis Ultrasound 01/05/25 15:12 IMPRESSION: 1. Successful ultrasound-guided paracentesis yielding 6000 mL of dark fidencio-colored fluid. Labs Labs: Laboratory Results - last 24 hr 01/08/25 04:32 WBC 5.5 RBC 2.80 L Hgb 9.0 L Hct 28.0 L MCV 100.0 MCH 32.1 MCHC 32.1 RDW 17.2 H Plt Count 91 L MPV 9.7 Immature Gran % (Auto) 0.4 Neut % (Auto) 65.3 Lymph % (Auto) 17.5 L [place] % (Auto) 11.7 H Eos % (Auto) 3.8 Baso % (Auto) 1.3 H Lymph # (Auto) 0.96 [place] # (Auto) 0.6 Eos # (Auto) 0.2 Baso # (Auto) 0.1 Abs Immat Gran (auto) 0.02 Absolute Neuts (auto) 3.6 Absolute Nucleated RBC 0.000 Nucleated RBC % 0.0 % Immature Plt Fraction 2.1 Sodium 133 L Potassium 3.7 Chloride 108 H Carbon Dioxide 18 L Anion Gap 7 BUN 21 H Creatinine 1.23 H Estim Creat Clear Calc 56 Estimated GFR 46 L Glucose 84 Calcium 8.5 Total Bilirubin 2.3 H Direct Bilirubin 0.0 AST 32 ALT 12 Alkaline Phosphatase 105 Total Protein 5.9 L Albumin 3.0 L Quality VTE Prophylaxis VTE prophylaxis: mechanical ordered and pharmacologic ordered Hospitalist [facility] Advance Care Plan I have confirmed that the patient's Advanced Care Plan is present, code status is documented, or surrogate decision maker is listed in patient medical record.: Yes Medication Reconciliation I have utilized all available resources to obtain, update and review the patients current medications (includes all prescriptions, OTC, herbals, cannabis, and nutritional supplements).: Yes
[2025-01-08] MEDS: cefTRIAXone 2 GM in SODIUM CHLORIDE 0.9% IV 100 ML 200 ML IVPB (12:58)
[2025-01-08 15:32] LABS: Add Urine Microscopic? YES; Appearance Urine Clear (Clear); Glucose Urine UA Negative (Negative); Leukocyte Esterase Ur Trace LEU/UL (Negative); Need Manual Microscopic Reviewed; Nitrate Urine Positive (Negative); Specific Grav Ur 1.013 (1.001-1.035); Urea Random Urine 399 MG/DL
--- NOTE | 2025-01-08 17:14 | WPDGICN ---
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: Code(s): K75.81 - Nonalcoholic steatohepatitis (BACON); K74.60 - Unspecified cirrhosis of liver Status: Chronic (3) Ascites: Qualifiers: Ascites type: other type Qualified Code(s): R18.8 - Other ascites Code(s): R18.8 - Other ascites Status: Acute Assessment and Plan: will get more paracentesis, assess if sbp (4) ALIREZA (acute kidney injury): Code(s): N17.9 - Acute kidney failure, unspecified Status: Acute Assessment and Plan: monitor GI Consult Note Consult date/time: 01/08/25 17:14 Reason for consult: cirrhosis, ascites HPI: Nasreen Orozco is a 54 year old female PMH hypothyroidism, cirrhosis follows at [facility], ascites requiring paracentesis approximately weekly, chronic respiratory failure on 3 L nasal cannula, recently discharged from [facility] on 12/30/2024 with pneumonia, presents again on 01/04/2025 with shortness of breath. Also noted more ascites and just had paracentesis but abdomen still distended. ER evaluation with mild hypokalemia, replaced. Troponin negative. CTA chest PE with abdomen pelvis obtained, no PE. Massive ascites. Still with abdominal discomfort. 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 Review of Systems Constitutional: Constitutional: Denies chills Eyes: Eyes: Denies blurry vision ENT: Reports Normal hearing present Cardiovascular: Cardiovascular: Denies chest pain Respiratory: Respiratory: Denies cough Gastrointestinal: Gastrointestinal: Reports bloating Genitourinary: Genitourinary: Denies urinary urgency Musculoskeletal: Musculoskeletal: Denies neck pain Integumentary/Breasts: Skin/Breast: Reports dry skin Neurologic: Denies confusion Psychiatric: Psychiatric: Denies behavioral changes PMFSH Past Medical History Medical History Otitis media when 10 yrs old Esophageal varices with bleeding Pulmonary edema Hypothyroidism SBP (spontaneous bacterial peritonitis) TAB positive Colon cancer screening Portal hypertension Thrombocytopenia Elevated liver enzymes Alcohol use Decompensation of cirrhosis of liver Nicotine dependence, cigarettes, with other nicotine-induced disorders 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 She has 1 child at the daughter and she states that the daughter had recently moved. She also states she did have her primary however primary recently left. She does wish to be a full code. All code status is were reviewed with the patient including DNR, DNI current pressors, BiPAP and CPAP. Patient wishes to be a full code at that time. She also likes her friend Franko to be her surrogate. Smoking packs per day: 0.5 Smoking cigarettes per day: 10.0 Years smoked: 5 Smoking pack-years: 2.50 Smoking status: Former smoker Tobacco type: cigarettes Smoking end date: 11/26/23 Alcohol intake: former Drinks per week: 4 Substance use: never Substance use type: does not use Do You Feel Safe in your Home?: Yes Lack of Transportation: No Lack of Food: Never True Current Housing: I Have Housing Concerned About Future Housing: No Difficulty Paying Gas/Electric Bills: No Difficulty Paying for Meds: No Currently Unemployed: No Education: Associate Degree Difficulty w/ Childcare or Family Care: No Living arrangements: with family Occupation/Education: other Additional occupation/education comments: disability Gender identity (if verbalized by the patient): Female Sexual Orientation (if Verbalized by the Patient): Straight or Heterosexual Spiritual care concerns: No Agree to blood products: Yes Meds Home Medications and Allergies Home Medications ?Medication ?Instructions ?Recorded ?Confirmed ?Type carvedilol 3.125 mg tablet 3.125 mg PO BID 12/25/24 01/05/25 History bumetanide 1 mg tablet 2 mg (2 x 1 mg) PO DAILY 90 days 12/27/24 01/05/25 Rx #180 tabs docusate sodium 100 mg capsule 100 mg PO BID PRN Constipation 90 12/27/24 01/05/25 Rx days #90 caps folic acid 1 mg tablet 1 mg PO DAILY 90 days #90 tabs 12/27/24 01/05/25 Rx lactulose 10 gram/15 mL oral 20 g (30 mL) PO Q6H 30 days #3,600 12/27/24 01/05/25 Rx solution mL levothyroxine 125 mcg tablet 125 mcg PO DAILY@0630 90 days #90 12/27/24 01/05/25 Rx tabs pantoprazole 40 mg tablet,delayed 40 mg PO Q12HR 90 days #180 tabs 12/27/24 01/05/25 Rx release rifaximin 550 mg tablet (Xifaxan) 550 mg PO BID 90 days #180 tabs 12/27/24 01/05/25 Rx cholecalciferol (vitamin D3) 25 25 mcg PO DAILY 90 days #90 tabs 12/30/24 01/05/25 Rx mcg (1,000 unit) tablet linezolid 600 mg tablet 600 mg PO Q12HR #11 tabs 12/30/24 01/05/25 Rx potassium chloride 10 mEq 20 meq (2 x 10 mEq) PO DAILY 90 12/30/24 01/05/25 Rx capsule,extended release days #180 caps Allergies Allergy/AdvReac Type Severity Reaction Status Date / Time amoxicillin Allergy Hives Verified 01/04/25 18:59 latex Allergy Rash Verified 01/04/25 18:59 Penicillins Allergy Hives Verified 01/04/25 18:59 hydromorphone (From Dilaudid) AdvReac Itching Verified 01/04/25 18:59 Vital Signs Vital Signs - 24 hr 01/07/25 19:54 01/07/25 20:00 01/07/25 21:33 Temperature 97.8 F Pulse Rate 81 80 Respiratory Rate 18 18 Blood Pressure 103/62 Pulse Oximetry 98 98 97 Oxygen Delivery Nasal Cannula Nasal Cannula Oxygen Flow Rate 3 3 01/08/25 00:00 01/08/25 04:00 01/08/25 08:30 Temperature 97.8 F 97.6 F Pulse Rate 79 93 Respiratory Rate 20 20 Blood Pressure 118/51 L 119/60 Pulse Oximetry 98 92 96 Oxygen Delivery Nasal Cannula Oxygen Flow Rate 3 01/08/25 08:40 01/08/25 12:00 Temperature 97.6 F 97.7 F Pulse Rate 85 82 Respiratory Rate 16 16 Blood Pressure 111/59 L 111/59 L Pulse Oximetry 96 97 Oxygen Delivery Oxygen Flow Rate Exam Const: General: comfortable and no acute distress Other: A&O x3 HENMT: Mouth: Yes moist mucous membranes Eyes: Pupils: Equal, round and reactive pupils present Neck: Neck: supple Resp: Effort & Inspection: normal respiratory effort Auscultation: clear to auscultation bilaterally Cardio: Rate: regular rate Rhythm: regular rhythm Heart sounds: no murmurs GI: Inspection: distended GI Palp: Yes Firmness to palpation present (GI), No Tenderness to palpation present (GI), No Guarding due to palpation present (GI) and Yes Hernia present umbilical Other: + fluid wave c/w ascites Skin: General skin exam: normal color Neuro: Speech: normal speech Motor exam (neuro): 5/5 motor strength present throughout Extrem: General: edema Psych: Mental Status: mental status grossly normal Results Labs 01/08/25 04:32 01/08/25 04:32 Labs: Short CBC 01/08/25 Range/Units 04:32 WBC 5.5 (4.5-10.0) K/mm3 Hgb 9.0 L (12.0-15.0) g/dL Hct 28.0 L (37.0-47.0) % Plt Count 91 L (150-375) k/mm3 [facility] 01/08/25 04:32 Sodium 133 L Potassium 3.7 Chloride 108 H Carbon Dioxide 18 L BUN 21 H Creatinine 1.23 H Glucose 84 Calcium 8.5 Liver Function 01/08/25 Range/Units 04:32 Total Bilirubin 2.3 H (0.2-1.3) mg/dL Direct Bilirubin 0.0 (0-0.3) mg/dL AST 32 (14-36) U/L ALT 12 (6-35) U/L Alkaline Phosphatase 105 (38-126) U/L Albumin 3.0 L (3.5-5.1) g/dL Urine 01/08/25 Range/Units 15:09 Urine Color Yellow (Yellow) Urine Appearance Clear (Clear) Urine pH 5.5 (5.0-9.0) Ur Specific [place] 1.013 (1.001-1.035) Urine Protein Negative (Negative) mg/dL Urine Glucose (UA) Negative (Negative) mg/dL
[2025-01-08] MEDS: BUMETANIDE 1 MG TABLET 2 MG PO (17:19)
[2025-01-09] VITALS (8 sets, daily range): BP systolic 103–113; BP diastolic 57–71; PULSE 78–92; RESP 14–20; TEMP 36.4–36.6; O2SAT 92–96
[2025-01-09] MEDS: LACTULOSE 20 GM/30 ML UDC PO ×3 (00:24→23:41)
[2025-01-09 05:31] LABS: Hematocrit 26.6 % (37.0-47.0); Hemoglobin 8.3 g/dL (12.0-15.0); Immature Granulocyte Percent A 0.2 % (0-0.5); Immature Platelet Fraction Pct 1.9 % (0.9-11.2); Lymphocytes Absolute Auto 0.81 K/mm3 (0.9-3.2); Mean Corpuscular HGB Conc 31.2 g/dl (32-36); Mean Corpuscular Hemoglobin 31.8 pg (26-34); Mean Corpuscular Volume 101.9 fl (80-100); Nucleated Red Blood Cells Absolute Auto 0.000 K/mm3 (0.0-0.012); Nucleated Red Blood Cells Perc 0.0 % (0.0-0.2); Red Blood Count 2.61 M/mm3 (4.2-5.4); White Blood Count 4.7 K/mm3 (4.5-10.0)
[2025-01-09 05:50] LABS: Alanine Aminotransferase 12 U/L (6-35); Albumin Level 2.8 g/dL (3.5-5.1); Alkaline Phosphatase 92 U/L (38-126); Anion Gap 7 mmol/L (4-12); Aspartate Amino Transferase 31 U/L (14-36); Bilirubin,Total 2.4 mg/dL (0.2-1.3); Blood Urea Nitrogen 19 mg/dL (7-17); Calcium 8.0 mg/dL (8.4-10.2); Carbon Dioxide 18 mmol/L (22-30); Chloride 107 mmol/L (98-107); Estimated CRCL calculation 60 ml/min; Estimated Glomerular Filt Rate 50; Glucose 83 mg/dL (65-110); Potassium 3.6 mmol/L (3.4-5.0); Sodium 132 mmol/L (137-145); Total Protein 5.6 g/dL (6.3-8.2)
[2025-01-09] MEDS: LEVOTHYROXINE SODIUM 150 MCG TABLET PO (05:52)
[2025-01-09 05:56] LABS: Platelet Count Result 78 k/mm3 (150-375)
[2025-01-09 05:57] LABS: Anisocytosis 1+
[2025-01-09 05:58] LABS: Ovalocytes Occasional; Schistocytes None Seen
[2025-01-09] MEDS: BUMETANIDE 1 MG TABLET 2 MG PO ×2 (09:14→16:33)
[2025-01-09] MEDS: PANTOPRAZOLE 40 MG TABLET PO ×2 (09:15→20:12)
[2025-01-09] MEDS: FOLIC ACID 1 MG TABLET PO (09:15)
[2025-01-09] MEDS: CHOLECALCIFEROL (VITAMIN D3) 25 MCG (1,000 UNITS) TABLET PO (09:15)
[2025-01-09] MEDS: SPIRONOLACTONE 25 MG TABLET 100 MG PO (09:15)
[2025-01-09] MEDS: POTASSIUM CHLORIDE 20 MEQ ER TABLET PO (09:15)
[2025-01-09] MEDS: oxyCODONE HCL (*CRX) 5 MG TAB IR PO (09:15)
[2025-01-09] MEDS: MORPHINE SULFATE (*CRX) 4 MG/ML INJ 2 MG IV PUSH ×3 (11:15→23:45)
[2025-01-09] MEDS: cefTRIAXone 2 GM in SODIUM CHLORIDE 0.9% IV 100 ML 200 ML IVPB (14:14)
--- NOTE | 2025-01-09 17:50 | P.PNGI_ITS ---
Progress Note: A&P Assessment and Plan (1) Decompensation of cirrhosis of liver: Code(s): K72.90 - Hepatic failure, unspecified without coma; K74.60 - Unspecified cirrhosis of liver Status: Acute Assessment and Plan: ? etiology MASH but in past had elevated regis tomorrow more paracentesis and check for sbp- had previously episode, empirically on abx also remote h/o EV currently on coreg, h/o PSE on xifaxan and lactulose- she is not confused now low salt diet then will need to follow-up with allopathic doctor in [facility] for liver transplant evaluation (2) Ascites: Qualifiers: Ascites type: other type Qualified Code(s): R18.8 - Other ascites Code(s): R18.8 - Other ascites Status: Acute (3) Abdominal pain: Code(s): R10.9 - Unspecified abdominal pain Status: Acute (4) Thrombocytopenia: Code(s): D69.6 - Thrombocytopenia, unspecified Status: Chronic Assessment and Plan: from cirrhosis Subjective Date/time seen: 01/09/25 17:50 Interval history: still abdominal distension Review of Systems Review of Systems: All systems reviewed & are unremarkable except as noted in HPI and below Exam Const: General: comfortable and no acute distress Other: A&O x3 HENMT: Mouth: Yes moist mucous membranes Eyes: Pupils: Equal, round and reactive pupils present Neck: Neck: supple Resp: Effort & Inspection: normal respiratory effort Auscultation: clear to auscultation bilaterally Cardio: Rate: regular rate Rhythm: regular rhythm Heart sounds: no murmurs GI: Inspection: distended GI Palp: Yes Firmness to palpation present (GI), No Tenderness to palpation present (GI), No Guarding due to palpation present (GI) and Yes Hernia present umbilical Other: + fluid wave c/w ascites Skin: General skin exam: normal color Neuro: Speech: normal speech Motor exam (neuro): 5/5 motor strength present throughout Extrem: General: edema Psych: Mental Status: mental status grossly normal Objective Data Vital Signs Vital Signs: Vital Signs - 24 hr 01/08/25 20:00 01/08/25 20:00 01/09/25 00:00 Temperature 98.1 F 97.9 F Pulse Rate 92 90 Respiratory Rate 18 18 Blood Pressure 115/68 103/71 Pulse Oximetry 96 95 96 Oxygen Delivery Nasal Cannula Oxygen Flow Rate 3 Fraction of Inspired Oxygen 01/09/25 04:00 01/09/25 08:00 01/09/25 08:00 Temperature 97.9 F 97.8 F Pulse Rate 83 80 80 Respiratory Rate 14 15 Blood Pressure 112/64 110/68 Pulse Oximetry 95 94 94 Oxygen Delivery Nasal Cannula Oxygen Flow Rate 3 Fraction of Inspired Oxygen 01/09/25 09:00 01/09/25 12:00 Temperature 97.7 F Pulse Rate 82 83 Respiratory Rate 20 15 Blood Pressure 103/66 Pulse Oximetry 92 94 Oxygen Delivery Nasal Cannula Oxygen Flow Rate 3 Fraction of Inspired Oxygen 32 Intake/Output Intake/Output: Intake & Output 01/06/25 01/07/25 01/08/25 01/09/25 23:59 23:59 23:59 23:59 Intake Total 1390 1790 1904 1012 Output Total 600 300 700 950 Balance 790 1490 1204 62 Meds/Results Medications: Active Medications Generic Name Dose Route Start Last Admin Trade Name Freq PRN Reason Stop Dose Admin Acetaminophen 325 mg 01/05/25 11:33 Acetaminophen 325 Mg Tablet PO Q6H PRN Mild Pain (1-3) or Fever Bumetanide 2 mg 01/08/25 17:00 01/09/25 16:33 Bumetanide 1 Mg Tablet PO 2 mg BID LENNY Administration Carvedilol 3.125 mg 01/05/25 09:00 01/07/25 08:33 Carvedilol 3.125 Mg Tablet PO Not Given On Hold: 01/07/25 09:08 Q12HR LENNY Docusate Sodium 100 mg 01/05/25 05:55 Docusate Sodium 100 Mg Capsule PO Q12H PRN Constipation Folic Acid 1 mg 01/05/25 09:00 01/09/25 09:15 Folic Acid 1 Mg Tablet PO 1 mg DAILY LENNY Administration Heparin Sodium (Porcine) 5,000 units 01/05/25 22:00 01/09/25 14:14 Heparin Sodium 5,000 Units/Ml Vial SUB-Q 5,000 units Q8HR LENNY Administration Ceftriaxone Sodium 2 gm/ 100 mls @ 200 mls/hr 01/08/25 13:00 01/09/25 14:14 Sodium Chloride IVPB 200 mls/hr Q24H LENNY Administration Lactulose 20 gm 01/05/25 06:00 01/09/25 16:27 Lactulose 20 Gm/30 Ml Udc PO Not Given Q6HR [facility] Levothyroxine Sodium 150 mcg 01/06/25 06:30 01/09/25 05:52 Levothyroxine Sodium 150 Mcg Tablet PO 150 mcg DAILY@0630 LENNY Administration Morphine Sulfate 2 mg 01/05/25 11:32 01/09/25 11:15 Morphine Sulfate (*Crx) 4 Mg/Ml Inj IV PUSH 2 mg Q4H PRN Administration Breakthrough Pain Oxycodone HCl 2.5 mg 01/05/25 11:32 01/06/25 20:41 Oxycodone Hcl (*Crx) 2.5 Mg Tab Ir PO 2.5 mg Q4H PRN Administration Pain Rated 4-6 Oxycodone HCl 5 mg 01/05/25 11:32 01/09/25 09:15 Oxycodone Hcl (*Crx) 5 Mg Tab Ir PO 5 mg Q4H PRN Administration Pain Rated 7-10 Pantoprazole Sodium 40 mg 01/05/25 09:00 01/09/25 09:15 Pantoprazole 40 Mg Tablet PO 40 mg Q12HR LENNY Administration Potassium Chloride 20 meq 01/05/25 09:00 01/09/25 09:15 Potassium Chloride 20 Meq Er Tablet PO 20 meq DAILY LENNY Administration Rifaximin 550 mg 01/05/25 09:00 01/09/25 09:15 Rifaximin 550 Mg Tablet PO 550 mg Q12HR LENNY Administration Spironolactone 100 mg 01/08/25 09:00 01/09/25 09:15 Spironolactone 25 Mg Tablet PO 100 mg DAILY LENNY Administration Vitamin D 25 mcg 01/05/25 09:00 01/09/25 09:15 Cholecalciferol (Vitamin D3) 25 Mcg (1,000 Units) Tablet PO 25 mcg DAILY LENNY Administration Radiology Results: ITS Impressions Chest X-Ray 01/04/25 19:20 IMPRESSION: 1. No acute cardiopulmonary findings given portable technique. Chest/Abdomen/Pelvis CTA 01/05/25 08:09 IMPRESSION: 1. Cirrhosis of the liver with portal venous hypertension. 2. Large volume of ascites. 3. Nondiagnostic evaluation of the pulmonary arteries. Chest CTA 01/05/25 08:31 IMPRESSION: 1. Negative for pulmonary embolism. No acute process in the visualized chest. Incidental findings above Paracentesis Ultrasound 01/05/25 15:12 IMPRESSION: 1. Successful ultrasound-guided paracentesis yielding 6000 mL of dark fidencio- colored fluid. Abdomen X-Ray 01/09/25 17:06 Impression: 1. No acute abnormality. Labs Labs: Laboratory Results - last 24 hr 01/09/25 05:10 WBC 4.7 RBC 2.61 L Hgb 8.3 L Hct 26.6 L MCV 101.9 H MCH 31.8 MCHC 31.2 L RDW 18.0 H Plt Count 78 L MPV 9.8 Immature Gran % (Auto) 0.2 Neut % (Auto) 59.8 Lymph % (Auto) 17.4 L [place] % (Auto) 17.4 H Eos % (Auto) 4.1 Baso % (Auto) 1.1 Lymph # (Auto) 0.81 L [place] # (Auto) 0.8 H Eos # (Auto) 0.2 Baso # (Auto) 0.1 Abs Immat Gran (auto) 0.01 Absolute Neuts (auto) 2.8 Absolute Nucleated RBC 0.000 Band Neutrophils % Not Reportable Nucleated RBC % 0.0 Platelet Estimate Slightly decreased % Immature Plt Fraction 1.9 Anisocytosis 1+ Ovalocytes Occasional Schistocytes None seen Sodium 132 L Potassium 3.6 Chloride 107 Carbon Dioxide 18 L Anion Gap 7 BUN 19 H Creatinine 1.13 H Estim Creat Clear Calc 60 Estimated GFR 50 L Glucose 83 Calcium 8.0 L Total Bilirubin 2.4 H Direct Bilirubin 0.0 AST 31 ALT 12 Alkaline Phosphatase 92 Total Protein 5.6 L Albumin 2.8 L
--- NOTE | 2025-01-09 18:38 | PM.IMPN ---
Progress Note: A&P Assessment and Plan (1) Cirrhosis of liver: Code(s): K74.60 - Unspecified cirrhosis of liver Status: Acute (2) Ascites: Qualifiers: Ascites type: other type Qualified Code(s): R18.8 - Other ascites Code(s): R18.8 - Other ascites Status: Acute (3) Chronic respiratory failure with hypoxia, on home O2 therapy: Code(s): J96.11 - Chronic respiratory failure with hypoxia; Z99.81 - Dependence on supplemental oxygen Status: Acute Plan Decompensated Cirrhosis Ascites Not sure of her Bumex dose at home, likely 2mg per prior discharge summary. Not on spironolactone, started S/p Paracentesis with 6 liters off 01/05, albumin post procedure. Bilirubin improved/stable 3.1>2.3<2.4 Creatinine slightly more elevated post procedure --Continue Bumex 2mg, increased to 2mg IV BID 01/07 with albumin overnight to prevent hypotension since increased distention/pain & BP stable Continuing home Coreg, bumetanide, rifaximin. --Pain with ascites--low dose tylenol, oxycodone, morphine prn --Doesn't have a PCP. Goes to hepatology at [facility] but hasn't gone recently. --Consulted GI for decompensated cirrhosis --paracentesis in a.m. will need albumin postprocedure, NPO post midnight --started Ceftriaxone 2 g daily IV pending evaluation of SBP given continued pain. Abdominal pain Abdomen more distended and painful despite diuretics 01/08, about the same overnight 01/09 Repeat Paracentesis--diagnostic and therapeutic Started empiric Ceftriaxone 2G daily until able to rule out SBP 01/09 KUB no acute findings. Can consider CT if continued pain, would avoid contrast if possible due to risk for ALIREZA Hypotension BP low yesterday, afebrile. BP improved today Follow temps, WBC, procalcitonin, CRP Abdominal pain Second to ascites/distention above If worsening will need a dx para to rule out SBP Elevated TSH TSH >24. Increase synthroid from 125<150 daily. She reports taking regularly Recheck in 6 weeks. Acute respiratory failure Breathing well on 3 L. Has had gradually increasing shortness of breath and ascites in the last week. Reporting her oxygen tank is not functioning. Care coordination discussed with respiratory and unclear to me what the problem is. Patient says machine continously beeps and she can't sleep with the noise. Company has reportedly come out more than once an there are no problems. Discuss with respiratory prior to discharge FULL CODE SCDs, heparin for DVT prophylaxis, Saline lock IV Time Spent With Patient Time: 57 minutes Subjective Date/time seen: 01/09/25 14:55 Interval history: Still having pain and abdominal distension. Not improving much with diuresis Creatinine stable. Reordered paracentesis for tomorrow Review of Systems Review of Systems: All systems reviewed & are unremarkable except as noted in HPI and below (Subjective) Exam Narrative: General - Awake and alert. No acute distress Eyes - PERRLA, EOM intact ENT - No thrush, No erythema Neck - No noticeable or palpable swelling Lymph Nodes - No lymphadenopathy Cardiovascular - RRR no m/r/g, no JVD Lungs: No wheezing, no use of accessory muscles, no crackles. Decreased in the bases Skin - Skin warm and dry, no wounds or rashes Abdomen - Normal bowel sounds, abdomen tight and nontender, improved distention Extremities - Pitting LE edema, no cyanosis or clubbing Musculoskeletal - 5/5 strength, normal range of motion, no swollen or erythematous joints. Neurological ? Alert and oriented x 3, CN 2-12 grossly intact. Psych: Normal mood and affect Objective Data Vital Signs Vital Signs: Vital Signs - 24 hr 01/08/25 20:00 01/08/25 20:00 01/09/25 00:00 Temperature 98.1 F 97.9 F Pulse Rate 92 90 Respiratory Rate 18 18 Blood Pressure 115/68 103/71 Pulse Oximetry 96 95 96 Oxygen Delivery Nasal Cannula Oxygen Flow Rate 3 Fraction of Inspired Oxygen 01/09/25 04:00 01/09/25 08:00 01/09/25 08:00 Temperature 97.9 F 97.8 F Pulse Rate 83 80 80 Respiratory Rate 14 15 Blood Pressure 112/64 110/68 Pulse Oximetry 95 94 94 Oxygen Delivery Nasal Cannula Oxygen Flow Rate 3 Fraction of Inspired Oxygen 01/09/25 09:00 01/09/25 12:00 01/09/25 16:00 Temperature 97.7 F 97.7 F Pulse Rate 82 83 78 Respiratory Rate 20 15 16 Blood Pressure 103/66 108/66 Pulse Oximetry 92 94 95 Oxygen Delivery Nasal Cannula Oxygen Flow Rate 3 Fraction of Inspired Oxygen 32 Intake/Output Intake/Output: Intake & Output 01/06/25 01/07/25 01/08/25 01/09/25 23:59 23:59 23:59 23:59 Intake Total 1390 1790 1904 1234 Output Total 600 300 700 950 Balance 790 1490 1204 284 Meds/Results Medications: Active Medications Generic Name Dose Route Start Last Admin Trade Name Freq PRN Reason Stop Dose Admin Acetaminophen 325 mg 01/05/25 11:33 Acetaminophen 325 Mg Tablet PO Q6H PRN Mild Pain (1-3) or Fever Bumetanide 2 mg 01/08/25 17:00 01/09/25 16:33 Bumetanide 1 Mg Tablet PO 2 mg BID LENNY Administration Carvedilol 3.125 mg 01/05/25 09:00 01/07/25 08:33 Carvedilol 3.125 Mg Tablet PO Not Given On Hold: 01/07/25 09:08 Q12HR LENNY Docusate Sodium 100 mg 01/05/25 05:55 Docusate Sodium 100 Mg Capsule PO Q12H PRN Constipation Folic Acid 1 mg 01/05/25 09:00 01/09/25 09:15 Folic Acid 1 Mg Tablet PO 1 mg DAILY LENNY Administration Heparin Sodium (Porcine) 5,000 units 01/05/25 22:00 01/09/25 14:14 Heparin Sodium 5,000 Units/Ml Vial SUB-Q 5,000 units Q8HR LENNY Administration Ceftriaxone Sodium 2 gm/ 100 mls @ 200 mls/hr 01/08/25 13:00 01/09/25 14:14 Sodium Chloride IVPB 200 mls/hr Q24H LENNY Administration Lactulose 20 gm 01/05/25 06:00 01/09/25 16:27 Lactulose 20 Gm/30 Ml Udc PO Not Given Q6HR LENNY Levothyroxine Sodium 150 mcg 01/06/25 06:30 01/09/25 05:52 Levothyroxine Sodium 150 Mcg Tablet PO 150 mcg DAILY@0630 LENNY Administration Morphine Sulfate 2 mg 01/05/25 11:32 01/09/25 11:15 Morphine Sulfate (*Crx) 4 Mg/Ml Inj IV PUSH 2 mg Q4H PRN Administration Breakthrough Pain Oxycodone HCl 2.5 mg 01/05/25 11:32 01/06/25 20:41 Oxycodone Hcl (*Crx) 2.5 Mg Tab Ir PO 2.5 mg Q4H PRN Administration Pain Rated 4-6 Oxycodone HCl 5 mg 01/05/25 11:32 01/09/25 09:15 Oxycodone Hcl (*Crx) 5 Mg Tab Ir PO 5 mg Q4H PRN Administration Pain Rated 7-10 Pantoprazole Sodium 40 mg 01/05/25 09:00 01/09/25 09:15 Pantoprazole 40 Mg Tablet PO 40 mg Q12HR LENNY Administration Potassium Chloride 20 meq 01/05/25 09:00 01/09/25 09:15 Potassium Chloride 20 Meq Er Tablet PO 20 meq DAILY LENNY Administration Rifaximin 550 mg 01/05/25 09:00 01/09/25 09:15 Rifaximin 550 Mg Tablet PO 550 mg Q12HR LENNY Administration Spironolactone 100 mg 01/08/25 09:00 01/09/25 09:15 Spironolactone 25 Mg Tablet PO 100 mg DAILY LENNY Administration Vitamin D 25 mcg 01/05/25 09:00 01/09/25 09:15 Cholecalciferol (Vitamin D3) 25 Mcg (1,000 Units) Tablet PO 25 mcg DAILY LENNY Administration Radiology Results: ITS Impressions Chest X-Ray 01/04/25 19:20 IMPRESSION: 1. No acute cardiopulmonary findings given portable technique. Chest/Abdomen/Pelvis CTA 01/05/25 08:09 IMPRESSION: 1. Cirrhosis of the liver with portal venous hypertension. 2. Large volume of ascites. 3. Nondiagnostic evaluation of the pulmonary arteries. Chest CTA 01/05/25 08:31 IMPRESSION: 1. Negative for pulmonary embolism. No acute process in the visualized chest. Incidental findings above Paracentesis Ultrasound 01/05/25 15:12 IMPRESSION: 1. Successful ultrasound-guided paracentesis yielding 6000 mL of dark fidencio-colored fluid. Abdomen X-Ray 01/09/25 17:06 Impression: 1. No acute abnormality. Labs Labs: Laboratory Results - last 24 hr 01/09/25 05:10 WBC 4.7 RBC 2.61 L Hgb 8.3 L Hct 26.6 L MCV 101.9 H MCH 31.8 MCHC 31.2 L RDW 18.0 H Plt Count 78 L MPV 9.8 Immature Gran % (Auto) 0.2 Neut % (Auto) 59.8 Lymph % (Auto) 17.4 L [place] % (Auto) 17.4 H Eos % (Auto) 4.1 Baso % (Auto) 1.1 Lymph # (Auto) 0.81 L [place] # (Auto) 0.8 H Eos # (Auto) 0.2 Baso # (Auto) 0.1 Abs Immat Gran (auto) 0.01 Absolute Neuts (auto) 2.8 Absolute Nucleated RBC 0.000 Band Neutrophils % Not Reportable Nucleated RBC % 0.0 Platelet Estimate Slightly decreased % Immature Plt Fraction 1.9 Anisocytosis 1+ Ovalocytes Occasional Schistocytes None seen Sodium 132 L Potassium 3.6 Chloride 107 Carbon Dioxide 18 L Anion Gap 7 BUN 19 H Creatinine 1.13 H Estim Creat Clear Calc 60 Estimated GFR 50 L Glucose 83 Calcium 8.0 L Total Bilirubin 2.4 H Direct Bilirubin 0.0 AST 31 ALT 12 Alkaline Phosphatase 92 Total Protein 5.6 L Albumin 2.8 L Quality VTE Prophylaxis VTE prophylaxis: mechanical ordered and pharmacologic ordered Hospitalist MIPS Advance Care Plan I have confirmed that the patient's Advanced Care Plan is present, code status is documented, or surrogate decision maker is listed in patient medical record.: Yes Medication Reconciliation I have utilized all available resources to obtain, update and review the patients current medications (includes all prescriptions, OTC, herbals, cannabis, and nutritional supplements).: Yes
[2025-01-10 04:00] VITALS: BP 114/57; PULSE 85; RESP 20; TEMP 36.5; O2SAT 92
[2025-01-10] MEDS: LEVOTHYROXINE SODIUM 150 MCG TABLET PO (05:22)
[2025-01-10] MEDS: MORPHINE SULFATE (*CRX) 4 MG/ML INJ 2 MG IV PUSH ×2 (05:22→23:12)
[2025-01-10 05:43] LABS: Hematocrit 27.6 % (37.0-47.0); Hemoglobin 8.6 g/dL (12.0-15.0); Immature Granulocyte Percent A 0.5 % (0-0.5); Immature Platelet Fraction Pct 1.9 % (0.9-11.2); Lymphocytes Absolute Auto 0.64 K/mm3 (0.9-3.2); Mean Corpuscular HGB Conc 31.2 g/dl (32-36); Mean Corpuscular Hemoglobin 31.7 pg (26-34); Mean Corpuscular Volume 101.8 fl (80-100); Nucleated Red Blood Cells Absolute Auto 0.000 K/mm3 (0.0-0.012); Nucleated Red Blood Cells Perc 0.0 % (0.0-0.2); Platelet Count Result 76 k/mm3 (150-375); Red Blood Count 2.71 M/mm3 (4.2-5.4); White Blood Count 5.5 K/mm3 (4.5-10.0)
[2025-01-10 05:48] LABS: INR 1.5; Prothrombin Time 18.1 Seconds (11.1-14.7)
[2025-01-10 05:57] LABS: Alanine Aminotransferase 12 U/L (6-35); Albumin Level 2.7 g/dL (3.5-5.1); Alkaline Phosphatase 88 U/L (38-126); Anion Gap 6 mmol/L (4-12); Aspartate Amino Transferase 29 U/L (14-36); Bilirubin,Total 2.2 mg/dL (0.2-1.3); Blood Urea Nitrogen 18 mg/dL (7-17); Calcium 8.3 mg/dL (8.4-10.2); Carbon Dioxide 20 mmol/L (22-30); Chloride 106 mmol/L (98-107); Estimated CRCL calculation 61 ml/min; Estimated Glomerular Filt Rate 50; Glucose 106 mg/dL (65-110); Potassium 3.5 mmol/L (3.4-5.0); Sodium 132 mmol/L (137-145); Total Protein 5.6 g/dL (6.3-8.2)
[2025-01-10 08:00] VITALS: BP 108/52; PULSE 80; RESP 18; TEMP 36.2; O2SAT 93; O2SAT 94
[2025-01-10 12:00] VITALS: BP 101/55; PULSE 84; RESP 16; TEMP 36.4; O2SAT 98
[2025-01-10] MEDS: cefTRIAXone 2 GM in SODIUM CHLORIDE 0.9% IV 100 ML 200 ML IVPB (12:28)
[2025-01-10] MEDS: LACTULOSE 20 GM/30 ML UDC PO ×3 (12:28→23:11)
[2025-01-10] MEDS: oxyCODONE HCL (*CRX) 5 MG TAB IR PO ×2 (12:30→20:51)
[2025-01-10 12:48] LABS: Appearance Peritoneal Fluid Hazy (Clear); Color Peritoneal Fluid Yellow (Colorless); Lymphocytes Peritoneal Fluid 67 %; Macrophages Peritoneal Fluid 14 %; Mesothelial Cells Peritoneal Fluid 3 %; Monocytes Peritoneal Fluid 6 %; Neutrophils Peritoneal Fluid 10 % (0-25); Nucleated Cells Peritoneal Flu 178 /uL (0-500); Source Peritoneal Fluid Peritoneal Fluid
--- NOTE | 2025-01-10 14:07 | PM.IMPN ---
Progress Note: A&P Assessment and Plan (1) Cirrhosis of liver: Code(s): K74.60 - Unspecified cirrhosis of liver Status: Acute (2) Ascites: Qualifiers: Ascites type: other type Qualified Code(s): R18.8 - Other ascites Code(s): R18.8 - Other ascites Status: Acute (3) Chronic respiratory failure with hypoxia, on home O2 therapy: Code(s): J96.11 - Chronic respiratory failure with hypoxia; Z99.81 - Dependence on supplemental oxygen Status: Acute Plan Decompensated Cirrhosis Ascites Not sure of her Bumex dose at home, likely 2mg per prior discharge summary. Not on spironolactone, started S/p Paracentesis with 6 liters off 01/05, albumin post procedure. Bilirubin improved/stable. Creatinine slightly more elevated post procedure --Continue Bumex 2mg, increased to 2mg IV BID 01/07 with albumin overnight to prevent hypotension since increased distention/pain & BP stable Continuing home Coreg, bumetanide, rifaximin. --Pain with ascites--low dose Tylenol, oxycodone, morphine prn --Doesn't have a PCP. Goes to hepatology at [facility] but hasn't gone recently. --Consulted GI for decompensated cirrhosis --started Ceftriaxone 2 g daily IV pending evaluation of SBP given continued pain. --paracentesis on 01/10 yielding 5200 mL will need albumin postprocedure. Abdominal pain Abdomen more distended and painful despite diuretics 01/08, about the same overnight 01/09 Repeat Paracentesis--diagnostic and therapeutic Started empiric Ceftriaxone 2G daily until able to rule out SBP 01/09 KUB no acute findings. Hypotension BP low yesterday, afebrile. BP improved today Follow temps, WBC, procalcitonin, CRP Abdominal pain Second to ascites/distention above If worsening will need a dx para to rule out SBP Elevated TSH TSH >24. Increase Synthroid from 125<150 daily. She reports taking regularly Recheck in 6 weeks. Acute respiratory failure Breathing well on 3 L. Has had gradually increasing shortness of breath and ascites in the last week. Reporting her oxygen tank is not functioning. Care coordination discussed with respiratory and unclear to me what the problem is. Patient says machine continously beeps and she can't sleep with the noise. Company has reportedly come out more than once an there are no problems. Discuss with respiratory prior to discharge FULL CODE SCDs, heparin for DVT prophylaxis, Saline lock IV Subjective Date/time seen: 01/10/25 14:07 Interval history: Patient having abdominal pain when I saw her this morning. She got a paracentesis that yielded 5200 mL of fluid in the late morning. Peritoneal fluid results pending. Exam Narrative: GENERAL: Comfortable, no acute distress HENMT: moist mucous membranes EYES: EOM intact b/l RESPIRATORY: clear to auscultation, no increased respiratory effort CARDIO: Regular rate and rhythm GI: Distended, hard, tender, umbilical hernia SKIN/EXTREMITIES: no rashes, no edema, no redness or tenderness Objective Data Vital Signs Vital Signs: Vital Signs - 24 hr 01/09/25 16:00 01/09/25 20:00 01/09/25 20:00 Temperature 97.7 F 97.5 F L Pulse Rate 78 86 Respiratory Rate 16 18 Blood Pressure 108/66 113/57 L Pulse Oximetry 95 96 96 Oxygen Delivery Nasal Cannula Oxygen Flow Rate 3 01/09/25 23:55 01/10/25 04:00 01/10/25 08:00 Temperature 97.7 F 97.7 F 97.2 F L Pulse Rate 92 85 80 Respiratory Rate 17 20 18 Blood Pressure 104/68 114/57 L 108/52 L Pulse Oximetry 95 92 93 Oxygen Delivery Oxygen Flow Rate 01/10/25 08:00 01/10/25 12:00 Temperature 97.5 F L Pulse Rate 84 Respiratory Rate 16 Blood Pressure 101/55 L Pulse Oximetry 94 98 Oxygen Delivery Nasal Cannula Oxygen Flow Rate 3 Intake/Output Intake/Output: Intake & Output 01/07/25 01/08/25 01/09/25 01/10/25 23:59 23:59 23:59 23:59 Intake Total 1790 1904 1334 440 Output Total 300 275 117 5832 Balance 1490 1626 899 -8364 Meds/Results Medications: Active Medications Generic Name Dose Route Start Last Admin Trade Name Freq PRN Reason Stop Dose Admin Acetaminophen 325 mg 01/05/25 11:33 Acetaminophen 325 Mg Tablet PO Q6H PRN Mild Pain (1-3) or Fever Bumetanide 2 mg 01/08/25 17:00 01/10/25 08:20 Bumetanide 1 Mg Tablet PO Not Given BID [facility] Carvedilol 3.125 mg 01/05/25 09:00 01/07/25 08:33 Carvedilol 3.125 Mg Tablet PO Not Given On Hold: 01/07/25 09:08 Q12HR [facility] Docusate Sodium 100 mg 01/05/25 05:55 Docusate Sodium 100 Mg Capsule PO Q12H PRN Constipation Folic Acid 1 mg 01/05/25 09:00 01/10/25 08:20 Folic Acid 1 Mg Tablet PO Not Given DAILY [facility] Heparin Sodium (Porcine) 5,000 units 01/05/25 22:00 01/09/25 14:14 Heparin Sodium 5,000 Units/Ml Vial SUB-Q 5,000 units On Hold: 01/09/25 18:43 Q8HR [facility] Administration Ceftriaxone Sodium 2 gm/ 100 mls @ 200 mls/hr 01/08/25 13:00 01/10/25 13:13 Sodium Chloride IVPB Infused Q24H [facility] Infusion Lactulose 20 gm 01/05/25 06:00 01/10/25 12:28 Lactulose 20 Gm/30 Ml Udc PO 20 gm Q6HR [facility] Administration Levothyroxine Sodium 150 mcg 01/06/25 06:30 01/10/25 05:22 Levothyroxine Sodium 150 Mcg Tablet PO 150 mcg DAILY@0630 [facility] Administration Morphine Sulfate 2 mg 01/05/25 11:32 01/10/25 05:22 Morphine Sulfate (*Crx) 4 Mg/Ml Inj IV PUSH 2 mg Q4H PRN Administration Breakthrough Pain Oxycodone HCl 2.5 mg 01/05/25 11:32 01/06/25 20:41 Oxycodone Hcl (*Crx) 2.5 Mg Tab Ir PO 2.5 mg Q4H PRN Administration Pain Rated 4-6 Oxycodone HCl 5 mg 01/05/25 11:32 01/10/25 12:30 Oxycodone Hcl (*Crx) 5 Mg Tab Ir PO 5 mg Q4H PRN Administration Pain Rated 7-10 Pantoprazole Sodium 40 mg 01/05/25 09:00 01/10/25 08:20 Pantoprazole 40 Mg Tablet PO Not Given Q12HR [facility] Potassium Chloride 20 meq 01/05/25 09:00 01/10/25 08:20 Potassium Chloride 20 Meq Er Tablet PO Not Given DAILY [facility] Rifaximin 550 mg 01/05/25 09:00 01/10/25 08:20 Rifaximin 550 Mg Tablet PO Not Given Q12HR [facility] Spironolactone 100 mg 01/08/25 09:00 01/10/25 08:20 Spironolactone 25 Mg Tablet PO Not Given DAILY [facility] Vitamin D 25 mcg 01/05/25 09:00 01/10/25 08:20 Cholecalciferol (Vitamin D3) 25 Mcg (1,000 Units) Tablet PO Not Given DAILY [facility] Radiology Results: ITS Impressions Chest X-Ray 01/04/25 19:20 IMPRESSION: 1. No acute cardiopulmonary findings given portable technique. Chest/Abdomen/Pelvis CTA 01/05/25 08:09 IMPRESSION: 1. Cirrhosis of the liver with portal venous hypertension. 2. Large volume of ascites. 3. Nondiagnostic evaluation of the pulmonary arteries. Chest CTA 01/05/25 08:31 IMPRESSION: 1. Negative for pulmonary embolism. No acute process in the visualized chest. Incidental findings above Abdomen X-Ray 01/09/25 17:06 Impression: 1. No acute abnormality. Paracentesis Ultrasound 01/10/25 12:38 IMPRESSION: 1. Successful ultrasound-guided paracentesis yielding 5200 mL of fidencio-colored fluid. Labs Labs: Laboratory Results - last 24 hr 01/10/25 01/10/25 05:19 10:24 WBC 5.5 RBC 2.71 L Hgb 8.6 L Hct 27.6 L MCV 101.8 H MCH 31.7 MCHC 31.2 L RDW 18.0 H Plt Count 76 L MPV 10.1 Immature Gran % (Auto) 0.5 Neut % (Auto) 65.3 Lymph % (Auto) 11.7 L [place] % (Auto) 17.0 H Eos % (Auto) 4.6 H Baso % (Auto) 0.9 Lymph # (Auto) 0.64 L [place] # (Auto) 0.9 H Eos # (Auto) 0.3 Baso # (Auto) 0.1 Abs Immat Gran (auto) 0.03 Absolute Neuts (auto) 3.6 Absolute Nucleated RBC 0.000 Nucleated RBC % 0.0 % Immature Plt Fraction 1.9 PT 18.1 H INR 1.5 Sodium 132 L Potassium 3.5 Chloride 106 Carbon Dioxide 20 L Anion Gap 6 BUN 18 H Creatinine 1.13 H Estim Creat Clear Calc 61 Estimated GFR 50 L Glucose 106 Calcium 8.3 L Total Bilirubin 2.2 H Direct Bilirubin 0.0 AST 29 ALT 12 Alkaline Phosphatase 88 Total Protein 5.6 L Albumin 2.7 L Peritoneal Source Peritoneal fluid Peritoneal Color Yellow Peritoneal Appearance Hazy A Peritoneal RBC 3000 Periton Nuc Cells 178 Periton Neutrophils 10 Periton Lymphocytes 67 Peritoneal Monocytes 6 Periton Mesothelial 3 Periton Macrophages 14
[2025-01-10 16:00] VITALS: BP 105/61; PULSE 90; RESP 18; TEMP 36.5; O2SAT 97
--- NOTE | 2025-01-10 16:47 | WPDGIPROGNO ---
Progress Note: A&P Assessment and Plan (1) Decompensation of cirrhosis of liver: Code(s): K72.90 - Hepatic failure, unspecified without coma; K74.60 - Unspecified cirrhosis of liver Status: Acute Assessment and Plan: ? 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 then will need to follow-up with analytical strategist in [facility] for liver transplant evaluation (2) Ascites: Qualifiers: Ascites type: other type Qualified Code(s): R18.8 - Other ascites Code(s): R18.8 - Other ascites Status: Acute Assessment and Plan: s/p paracentesis no sbp ok to discontinue antibiotic most likely will need to continue to get paracentesis as outpatient as needed (3) Abdominal pain: Code(s): R10.9 - Unspecified abdominal pain Status: Acute (4) Thrombocytopenia: Code(s): D69.6 - Thrombocytopenia, unspecified Status: Chronic Assessment and Plan: from cirrhosis Subjective Date/time seen: 01/10/25 16:47 Interval history: more comfortable after 5 liters removed today Review of Systems Review of Systems: All systems reviewed & are unremarkable except as noted in HPI and below Exam Const: General: comfortable and no acute distress Other: A&O x3 HENMT: Mouth: Yes moist mucous membranes Eyes: Pupils: Equal, round and reactive pupils present Neck: Neck: supple Resp: Effort & Inspection: normal respiratory effort Auscultation: clear to auscultation bilaterally Cardio: Rate: regular rate Rhythm: regular rhythm Heart sounds: no murmurs GI: Inspection: distended GI Palp: No Tenderness to palpation present (GI), No Guarding due to palpation present (GI) and Yes Hernia present umbilical Other: + fluid wave c/w ascites Skin: General skin exam: normal color Neuro: Speech: normal speech Motor exam (neuro): 5/5 motor strength present throughout Extrem: General: edema Psych: Mental Status: mental status grossly normal Objective Data Vital Signs Vital Signs: Vital Signs - 24 hr 01/09/25 20:00 01/09/25 20:00 01/09/25 23:55 Temperature 97.5 F L 97.7 F Pulse Rate 86 92 Respiratory Rate 18 17 Blood Pressure 113/57 L 104/68 Pulse Oximetry 96 96 95 Oxygen Delivery Nasal Cannula Oxygen Flow Rate 3 01/10/25 04:00 01/10/25 08:00 01/10/25 08:00 Temperature 97.7 F 97.2 F L Pulse Rate 85 80 Respiratory Rate 20 18 Blood Pressure 114/57 L 108/52 L Pulse Oximetry 92 93 94 Oxygen Delivery Nasal Cannula Oxygen Flow Rate 3 01/10/25 12:00 Temperature 97.5 F L Pulse Rate 84 Respiratory Rate 16 Blood Pressure 101/55 L Pulse Oximetry 98 Oxygen Delivery Oxygen Flow Rate Intake/Output Intake/Output: Intake & Output 01/07/25 01/08/25 01/09/25 01/10/25 23:59 23:59 23:59 23:59 Intake Total 1790 1904 1334 440 Output Total 300 589 634 5366 Balance 1490 1203 143 -6960 Meds/Results Medications: Active Medications Generic Name Dose Route Start Last Admin Trade Name Freq PRN Reason Stop Dose Admin Acetaminophen 325 mg 01/05/25 11:33 Acetaminophen 325 Mg Tablet PO Q6H PRN Mild Pain (1-3) or Fever Bumetanide 2 mg 01/08/25 17:00 01/10/25 08:20 Bumetanide 1 Mg Tablet PO Not Given BID [facility] Carvedilol 3.125 mg 01/05/25 09:00 01/07/25 08:33 Carvedilol 3.125 Mg Tablet PO Not Given On Hold: 01/07/25 09:08 Q12HR [facility] Docusate Sodium 100 mg 01/05/25 05:55 Docusate Sodium 100 Mg Capsule PO Q12H PRN Constipation Folic Acid 1 mg 01/05/25 09:00 01/10/25 08:20 Folic Acid 1 Mg Tablet PO Not Given DAILY [facility] Heparin Sodium (Porcine) 5,000 units 01/05/25 22:00 01/09/25 14:14 Heparin Sodium 5,000 Units/Ml Vial SUB-Q 5,000 units On Hold: 01/09/25 18:43 Q8HR [facility] Administration Ceftriaxone Sodium 2 gm/ 100 mls @ 200 mls/hr 01/08/25 13:00 01/10/25 13:13 Sodium Chloride IVPB Infused Q24H [facility] Infusion Lactulose 20 gm 01/05/25 06:00 01/10/25 12:28 Lactulose 20 Gm/30 Ml Udc PO 20 gm Q6HR [facility] Administration Levothyroxine Sodium 150 mcg 01/06/25 06:30 01/10/25 05:22 Levothyroxine Sodium 150 Mcg Tablet PO 150 mcg DAILY@0630 [facility] Administration Morphine Sulfate 2 mg 01/05/25 11:32 01/10/25 05:22 Morphine Sulfate (*Crx) 4 Mg/Ml Inj IV PUSH 2 mg Q4H PRN Administration Breakthrough Pain Oxycodone HCl 2.5 mg 01/05/25 11:32 01/06/25 20:41 Oxycodone Hcl (*Crx) 2.5 Mg Tab Ir PO 2.5 mg Q4H PRN Administration Pain Rated 4-6 Oxycodone HCl 5 mg 01/05/25 11:32 01/10/25 12:30 Oxycodone Hcl (*Crx) 5 Mg Tab Ir PO 5 mg Q4H PRN Administration Pain Rated 7-10 Pantoprazole Sodium 40 mg 01/05/25 09:00 01/10/25 08:20 Pantoprazole 40 Mg Tablet PO Not Given Q12HR [facility] Potassium Chloride 20 meq 01/05/25 09:00 01/10/25 08:20 Potassium Chloride 20 Meq Er Tablet PO Not Given DAILY [facility] Rifaximin 550 mg 01/05/25 09:00 01/10/25 08:20 Rifaximin 550 Mg Tablet PO Not Given Q12HR [facility] Spironolactone 100 mg 01/08/25 09:00 01/10/25 08:20 Spironolactone 25 Mg Tablet PO Not Given DAILY [facility] Vitamin D 25 mcg 01/05/25 09:00 01/10/25 08:20 Cholecalciferol (Vitamin D3) 25 Mcg (1,000 Units) Tablet PO Not Given DAILY [facility] Radiology Results: ITS Impressions Chest X-Ray 01/04/25 19:20 IMPRESSION: 1. No acute cardiopulmonary findings given portable technique. Chest/Abdomen/Pelvis CTA 01/05/25 08:09 IMPRESSION: 1. Cirrhosis of the liver with portal venous hypertension. 2. Large volume of ascites. 3. Nondiagnostic evaluation of the pulmonary arteries. Chest CTA 01/05/25 08:31 IMPRESSION: 1. Negative for pulmonary embolism. No acute process in the visualized chest. Incidental findings above Abdomen X-Ray 01/09/25 17:06 Impression: 1. No acute abnormality. Paracentesis Ultrasound 01/10/25 12:38 IMPRESSION: 1. Successful ultrasound-guided paracentesis yielding 5200 mL of fidencio-colored fluid. Labs Labs: Laboratory Results - last 24 hr 01/10/25 01/10/25 05:19 10:24 WBC 5.5 RBC 2.71 L Hgb 8.6 L Hct 27.6 L MCV 101.8 H MCH 31.7 MCHC 31.2 L RDW 18.0 H Plt Count 76 L MPV 10.1 Immature Gran % (Auto) 0.5 Neut % (Auto) 65.3 Lymph % (Auto) 11.7 L [place] % (Auto) 17.0 H Eos % (Auto) 4.6 H Baso % (Auto) 0.9 Lymph # (Auto) 0.64 L [place] # (Auto) 0.9 H Eos # (Auto) 0.3 Baso # (Auto) 0.1 Abs Immat Gran (auto) 0.03 Absolute Neuts (auto) 3.6 Absolute Nucleated RBC 0.000 Nucleated RBC % 0.0 % Immature Plt Fraction 1.9 PT 18.1 H INR 1.5 Sodium 132 L Potassium 3.5 Chloride 106 Carbon Dioxide 20 L Anion Gap 6 BUN 18 H Creatinine 1.13 H Estim Creat Clear Calc 61 Estimated GFR 50 L Glucose 106 Calcium 8.3 L Total Bilirubin 2.2 H Direct Bilirubin 0.0 AST 29 ALT 12 Alkaline Phosphatase 88 Total Protein 5.6 L Albumin 2.7 L Peritoneal Source Peritoneal fluid Peritoneal Color Yellow Peritoneal Appearance Hazy A Peritoneal RBC 3000 Periton Nuc Cells 178 Periton Neutrophils 10 Periton Lymphocytes 67 Peritoneal Monocytes 6 Periton Mesothelial 3 Periton Macrophages 14
[2025-01-10] MEDS: BUMETANIDE 1 MG TABLET 2 MG PO (16:50)
[2025-01-10 20:00] VITALS: BP 98/55; PULSE 85; RESP 18; TEMP 36.4; O2SAT 94
[2025-01-10] MEDS: PANTOPRAZOLE 40 MG TABLET PO (20:51)
[2025-01-11] VITALS (8 sets, daily range): BP systolic 90–101; BP diastolic 44–53; PULSE 80–102; RESP 18; TEMP 36.3–36.6; O2SAT 95–98
[2025-01-11] MEDS: oxyCODONE HCL (*CRX) 5 MG TAB IR PO ×3 (01:18→21:18)
[2025-01-11 05:34] LABS: Hematocrit 28.4 % (37.0-47.0); Hemoglobin 9.0 g/dL (12.0-15.0); Immature Granulocyte Percent A 0.4 % (0-0.5); Immature Platelet Fraction Pct 2.0 % (0.9-11.2); Lymphocytes Absolute Auto 0.94 K/mm3 (0.9-3.2); Mean Corpuscular HGB Conc 31.7 g/dl (32-36); Mean Corpuscular Hemoglobin 32.3 pg (26-34); Mean Corpuscular Volume 101.8 fl (80-100); Nucleated Red Blood Cells Absolute Auto 0.000 K/mm3 (0.0-0.012); Nucleated Red Blood Cells Perc 0.0 % (0.0-0.2); Platelet Count Result 80 k/mm3 (150-375); Red Blood Count 2.79 M/mm3 (4.2-5.4); White Blood Count 5.5 K/mm3 (4.5-10.0)
[2025-01-11 05:43] LABS: Alanine Aminotransferase 13 U/L (6-35); Albumin Level 2.8 g/dL (3.5-5.1); Alkaline Phosphatase 84 U/L (38-126); Anion Gap 6 mmol/L (4-12); Aspartate Amino Transferase 29 U/L (14-36); Bilirubin,Total 2.0 mg/dL (0.2-1.3); Blood Urea Nitrogen 17 mg/dL (7-17); Calcium 8.1 mg/dL (8.4-10.2); Carbon Dioxide 22 mmol/L (22-30); Chloride 104 mmol/L (98-107); Estimated CRCL calculation 66 ml/min; Estimated Glomerular Filt Rate 57; Glucose 92 mg/dL (65-110); Potassium 3.3 mmol/L (3.4-5.0); Sodium 132 mmol/L (137-145); Total Protein 5.7 g/dL (6.3-8.2)
[2025-01-11] MEDS: LACTULOSE 20 GM/30 ML UDC PO ×2 (05:45→11:58)
[2025-01-11] MEDS: LEVOTHYROXINE SODIUM 150 MCG TABLET PO (05:45)
[2025-01-11] MEDS: oxyCODONE HCL (*CRX) 2.5 MG TAB IR PO (05:49)
[2025-01-11 06:04] LABS: Anisocytosis 1+; Macrocytosis 1+ (NORMAL); Ovalocytes 1+; Schistocytes None Seen
--- NOTE | 2025-01-11 08:05 | PM.IMPN ---
Progress Note: A&P Assessment and Plan (1) Cirrhosis of liver: Code(s): K74.60 - Unspecified cirrhosis of liver Status: Acute (2) Ascites: Qualifiers: Ascites type: other type Qualified Code(s): R18.8 - Other ascites Code(s): R18.8 - Other ascites Status: Acute (3) Chronic respiratory failure with hypoxia, on home O2 therapy: Code(s): J96.11 - Chronic respiratory failure with hypoxia; Z99.81 - Dependence on supplemental oxygen Status: Acute Plan Decompensated Cirrhosis Ascites Not sure of her Bumex dose at home, likely 2mg per prior discharge summary. Not on spironolactone, started S/p Paracentesis with 6 liters off 01/05, albumin post procedure. Bilirubin improved/stable. Creatinine slightly more elevated post procedure --Continue Bumex 2mg, increased to 2mg IV BID 01/07 with albumin overnight to prevent hypotension since increased distention/pain & BP stable Continuing home Coreg, bumetanide, rifaximin. --Pain with ascites--low dose Tylenol, oxycodone, morphine prn --Doesn't have a PCP. Goes to hepatology at [facility] but hasn't gone recently. --Consulted GI for decompensated cirrhosis --started Ceftriaxone 2 g daily IV pending evaluation of SBP given continued pain. --paracentesis on 01/10 yielding 5200 mL Albumin infusion today Hold diuresis due to low blood pressure Abdominal pain Abdomen more distended and painful despite diuretics 01/08, about the same overnight 01/09 Repeat Paracentesis--diagnostic and therapeutic Started empiric Ceftriaxone 2G daily until able to rule out SBP 01/09 KUB no acute findings. Hypotension BP low yesterday, afebrile. BP improved today Follow temps, WBC, procalcitonin, CRP Will add albumin infusion Abdominal pain Second to ascites/distention above If worsening will need a dx para to rule out SBP Paracentesis and ascitic fluid analysis negative for SBP Will stop antibiotics. Elevated TSH TSH >24. Increase Synthroid from 125<150 daily. She reports taking regularly Recheck in 6 weeks. Acute respiratory failure Breathing well on 3 L. Has had gradually increasing shortness of breath and ascites in the last week. Reporting her oxygen tank is not functioning. Care coordination discussed with respiratory and unclear to me what the problem is. Patient says machine continously beeps and she can't sleep with the noise. Company has reportedly come out more than once an there are no problems. Discuss with respiratory prior to discharge Chronic anemia baseline around 8-10. FULL CODE SCDs, heparin for DVT prophylaxis, Saline lock IV Subjective Date/time seen: 01/11/25 08:05 Interval history: No overnight events. Chart reviewed. No new complaints. Pain is better. Review of Systems Review of Systems: All systems reviewed & are unremarkable except as noted in HPI and below (Subjective) Exam Narrative: GENERAL: Comfortable, no acute distress HENMT: moist mucous membranes EYES: EOM intact b/l RESPIRATORY: clear to auscultation, no increased respiratory effort CARDIO: Regular rate and rhythm GI: Distended, hard, tender, umbilical hernia SKIN/EXTREMITIES: no rashes, no edema, no redness or tenderness Objective Data Vital Signs Vital Signs: Vital Signs - 24 hr 01/10/25 12:00 01/10/25 16:00 01/10/25 20:00 Temperature 97.5 F L 97.7 F 97.6 F Pulse Rate 84 90 85 Respiratory Rate 16 18 18 Blood Pressure 101/55 L 105/61 98/55 L Pulse Oximetry 98 97 94 Oxygen Delivery Oxygen Flow Rate Fraction of Inspired Oxygen 01/10/25 20:00 01/11/25 00:00 01/11/25 04:02 Temperature 97.4 F L Pulse Rate 85 88 Respiratory Rate 18 18 Blood Pressure 90/51 L 94/48 L Pulse Oximetry 94 98 Oxygen Delivery Nasal Cannula Oxygen Flow Rate 3 Fraction of Inspired Oxygen 32 Intake/Output Intake/Output: Intake & Output 01/08/25 01/09/25 01/10/25 01/11/25 23:59 23:59 23:59 23:59 Intake Total 1904 1334 1230 590 Output Total 019 285 5450 Balance 1207 002 -8288 364 Meds/Results Medications: Active Medications Generic Name Dose Route Start Last Admin Trade Name Freq PRN Reason Stop Dose Admin Acetaminophen 325 mg 01/05/25 11:33 Acetaminophen 325 Mg Tablet PO Q6H PRN Mild Pain (1-3) or Fever Bumetanide 2 mg 01/08/25 17:00 01/10/25 16:50 Bumetanide 1 Mg Tablet PO 2 mg BID [facility] Administration Carvedilol 3.125 mg 10/08/25 09:00 01/07/25 08:33 Carvedilol 3.125 Mg Tablet PO Not Given On Hold: 01/07/25 09:08 Q12HR [facility] Docusate Sodium 100 mg 01/05/25 05:55 Docusate Sodium 100 Mg Capsule PO Q12H PRN Constipation Folic Acid 1 mg 01/05/25 09:00 01/10/25 08:20 Folic Acid 1 Mg Tablet PO Not Given DAILY [facility] Heparin Sodium (Porcine) 5,000 units 01/05/25 22:00 01/09/25 14:14 Heparin Sodium 5,000 Units/Ml Vial SUB-Q 5,000 units On Hold: 01/09/25 18:43 Q8HR [facility] Administration Ceftriaxone Sodium 2 gm/ 100 mls @ 200 mls/hr 01/08/25 13:00 01/10/25 13:13 Sodium Chloride IVPB Infused Q24H [facility] Infusion Lactulose 20 gm 01/05/25 06:00 01/11/25 05:45 Lactulose 20 Gm/30 Ml Udc PO 20 gm Q6HR [facility] Administration Levothyroxine Sodium 150 mcg 01/06/25 06:30 01/11/25 05:45 Levothyroxine Sodium 150 Mcg Tablet PO 150 mcg DAILY@0630 [facility] Administration Morphine Sulfate 2 mg 01/05/25 11:32 01/10/25 23:12 Morphine Sulfate (*Crx) 4 Mg/Ml Inj IV PUSH 2 mg Q4H PRN Administration Breakthrough Pain Oxycodone HCl 2.5 mg 01/05/25 11:32 01/11/25 05:49 Oxycodone Hcl (*Crx) 2.5 Mg Tab Ir PO 2.5 mg Q4H PRN Administration Pain Rated 4-6 Oxycodone HCl 5 mg 01/05/25 11:32 01/11/25 01:18 Oxycodone Hcl (*Crx) 5 Mg Tab Ir PO 5 mg Q4H PRN Administration Pain Rated 7-10 Pantoprazole Sodium 40 mg 01/05/25 09:00 01/10/25 20:51 Pantoprazole 40 Mg Tablet PO 40 mg Q12HR [facility] Administration Potassium Chloride 20 meq 01/05/25 09:00 01/10/25 08:20 Potassium Chloride 20 Meq Er Tablet PO Not Given DAILY [facility] Rifaximin 550 mg 10/08/25 09:00 01/10/25 20:51 Rifaximin 550 Mg Tablet PO 550 mg Q12HR [facility] Administration Spironolactone 100 mg 01/08/25 09:00 01/10/25 08:20 Spironolactone 25 Mg Tablet PO Not Given DAILY [facility] Vitamin D 25 mcg 01/05/25 09:00 01/10/25 08:20 Cholecalciferol (Vitamin D3) 25 Mcg (1,000 Units) Tablet PO Not Given DAILY [facility] Radiology Results: ITS Impressions Chest X-Ray 01/04/25 19:20 IMPRESSION: 1. No acute cardiopulmonary findings given portable technique. Chest/Abdomen/Pelvis CTA 01/05/25 08:09 IMPRESSION: 1. Cirrhosis of the liver with portal venous hypertension. 2. Large volume of ascites. 3. Nondiagnostic evaluation of the pulmonary arteries. Chest CTA 01/05/25 08:31 IMPRESSION: 1. Negative for pulmonary embolism. No acute process in the visualized chest. Incidental findings above Abdomen X-Ray 01/09/25 17:06 Impression: 1. No acute abnormality. Paracentesis Ultrasound 01/10/25 12:38 IMPRESSION: 1. Successful ultrasound-guided paracentesis yielding 5200 mL of fidencio-colored fluid. Labs Labs: Laboratory Results - last 24 hr 01/10/25 01/10/25 01/11/25 10:24 23:30 04:45 WBC 5.5 RBC 2.79 L Hgb 9.0 L Hct 28.4 L MCV 101.8 H MCH 32.3 MCHC 31.7 L RDW 18.4 H Plt Count 80 L MPV 10.2 Immature Gran % (Auto) 0.4 Neut % (Auto) 58.6 Lymph % (Auto) 17.0 L [place] % (Auto) 18.6 H Eos % (Auto) 4.5 H Baso % (Auto) 0.9 Lymph # (Auto) 0.94 [place] # (Auto) 1.0 H Eos # (Auto) 0.3 Baso # (Auto) 0.1 Abs Immat Gran (auto) 0.02 Absolute Neuts (auto) 3.2 Absolute Nucleated RBC 0.000 Band Neutrophils % Not Reportable Nucleated RBC % 0.0 Platelet Estimate Decreased % Immature Plt Fraction 2.0 Anisocytosis 1+ Macrocytosis 1+ Ovalocytes 1+ Schistocytes None seen Sodium 132 L Potassium 3.3 L Chloride 104 Carbon Dioxide 22 Anion Gap 6 BUN 17 Creatinine 1.01 H Estim Creat Clear Calc 66 Estimated GFR 57 L Glucose 92 Calcium 8.1 L Total Bilirubin 2.0 H Direct Bilirubin 0.0 AST 29 ALT 13 Alkaline Phosphatase 84 Total Protein 5.7 L Albumin 2.8 L Ur Random Sodium 46 Ur Random Potassium 41.1 Peritoneal Source Peritoneal fluid Peritoneal Color Yellow Peritoneal Appearance Hazy A Peritoneal RBC 3000 Periton Nuc Cells 178 Periton Neutrophils 10 Periton Lymphocytes 67 Peritoneal Monocytes 6 Periton Mesothelial 3 Periton Macrophages 14
[2025-01-11] MEDS: FOLIC ACID 1 MG TABLET PO (08:48)
[2025-01-11] MEDS: POTASSIUM CHLORIDE 20 MEQ ER TABLET 40 MEQ PO (08:48)
[2025-01-11] MEDS: PANTOPRAZOLE 40 MG TABLET PO ×2 (08:50→21:18)
[2025-01-11] MEDS: CHOLECALCIFEROL (VITAMIN D3) 25 MCG (1,000 UNITS) TABLET PO (08:50)
[2025-01-11] MEDS: POTASSIUM CHLORIDE 20 MEQ ER TABLET PO (08:50)
[2025-01-11] MEDS: ACETAMINOPHEN 325 MG TABLET PO (08:51)
--- NOTE | 2025-01-11 11:21 | PCNWS ---
Weekly nutritional screen. Patient is tolerating current diet with adequate intake. No weight loss reported. No nutritional needs at this time.
[2025-01-11] MEDS: ALBUMIN HUMAN 25% 25 GM/100 ML 100 ML IVPB ×2 (11:59→17:01)
--- NOTE | 2025-01-11 16:43 | WPDGIPROGNO ---
Progress Note: A&P Assessment and Plan (1) Decompensation of cirrhosis of liver: Code(s): K72.90 - Hepatic failure, unspecified without coma; K74.60 - Unspecified cirrhosis of liver Status: Acute Assessment and Plan: ? 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 but no signs of gib h/o PSE on xifaxan and lactulose- she is not confused now 2g na salt diet today Na/K urine ratio >1 which indicates adequate natriuresis, continue with same diuretic dosing but also will continue to get paracentesis as needed will need to follow-up with communications marketing intern in [facility] for liver transplant evaluation, no objections to discharge tomorrow if more comfortable will follow as needed (2) Ascites: Qualifiers: Ascites type: other type Qualified Code(s): R18.8 - Other ascites Code(s): R18.8 - Other ascites Status: Acute Assessment and Plan: s/p paracentesis no sbp ok to discontinue antibiotic most likely will need to continue to get paracentesis as outpatient as needed and continued with diuretics (3) Abdominal pain: Code(s): R10.9 - Unspecified abdominal pain Status: Acute (4) Thrombocytopenia: Code(s): D69.6 - Thrombocytopenia, unspecified Status: Chronic Assessment and Plan: from cirrhosis Subjective Date/time seen: 01/11/25 16:43 Interval history: no major changes Review of Systems Review of Systems: All systems reviewed & are unremarkable except as noted in HPI and below Exam Const: General: comfortable and no acute distress Other: A&O x3 HENMT: Mouth: Yes moist mucous membranes Eyes: Pupils: Equal, round and reactive pupils present Neck: Neck: supple Resp: Effort & Inspection: normal respiratory effort Auscultation: clear to auscultation bilaterally Cardio: Rate: regular rate Rhythm: regular rhythm Heart sounds: no murmurs GI: Inspection: distended GI Palp: No Guarding due to palpation present (GI) and Yes Hernia present umbilical Other: + fluid wave c/w ascites mild pain, no rebound- unchanged Skin: General skin exam: normal color Neuro: Speech: normal speech Motor exam (neuro): 5/5 motor strength present throughout Extrem: General: edema Psych: Mental Status: mental status grossly normal Objective Data Vital Signs Vital Signs: Vital Signs - 24 hr 01/10/25 20:00 01/10/25 20:00 01/11/25 00:00 Temperature 97.6 F Pulse Rate 85 85 Respiratory Rate 18 18 Blood Pressure 98/55 L 90/51 L Pulse Oximetry 94 94 Oxygen Delivery Nasal Cannula Oxygen Flow Rate 3 Fraction of Inspired Oxygen 32 01/11/25 04:02 01/11/25 08:14 01/11/25 08:50 Temperature 97.4 F L 98 F Pulse Rate 88 80 Respiratory Rate 18 18 Blood Pressure 94/48 L 97/44 L Pulse Oximetry 98 95 96 Oxygen Delivery Nasal Cannula Oxygen Flow Rate 3 Fraction of Inspired Oxygen 01/11/25 12:25 01/11/25 16:31 Temperature 97.4 F L 97.5 F L Pulse Rate 90 93 Respiratory Rate 18 18 Blood Pressure 97/47 L 96/48 L Pulse Oximetry 96 95 Oxygen Delivery Oxygen Flow Rate Fraction of Inspired Oxygen Intake/Output Intake/Output: Intake & Output 01/08/25 01/09/25 01/10/25 01/11/25 23:59 23:59 23:59 23:59 Intake Total 1904 1334 1230 1170 Output Total 082 257 5124 350 Balance 1208 846 -8568 820 Meds/Results Medications: Active Medications Generic Name Dose Route Start Last Admin Trade Name Freq PRN Reason Stop Dose Admin Acetaminophen 325 mg 01/05/25 11:33 01/11/25 08:51 Acetaminophen 325 Mg Tablet PO 325 mg Q6H PRN Administration Mild Pain (1-3) or Fever Bumetanide 2 mg 01/08/25 17:00 01/11/25 08:46 Bumetanide 1 Mg Tablet PO Not Given BID LENNY Carvedilol 3.125 mg 01/05/25 09:00 01/07/25 08:33 Carvedilol 3.125 Mg Tablet PO Not Given On Hold: 01/07/25 09:08 Q12HR LENNY Docusate Sodium 100 mg 01/05/25 05:55 Docusate Sodium 100 Mg Capsule PO Q12H PRN Constipation Folic Acid 1 mg 01/05/25 09:00 01/11/25 08:48 Folic Acid 1 Mg Tablet PO 1 mg DAILY LENNY Administration Heparin Sodium (Porcine) 5,000 units 01/05/25 22:00 01/09/25 14:14 Heparin Sodium 5,000 Units/Ml Vial SUB-Q 5,000 units On Hold: 01/09/25 18:43 Q8HR LENNY Administration Albumin Human 100 mls @ 60 mls/hr 01/11/25 12:00 01/11/25 13:50 Albutein IVPB Infused Q6HR LENNY Infusion Lactulose 20 gm 01/05/25 06:00 01/11/25 11:58 Lactulose 20 Gm/30 Ml Udc PO 20 gm Q6HR LENNY Administration Levothyroxine Sodium 150 mcg 01/06/25 06:30 01/11/25 05:45 Levothyroxine Sodium 150 Mcg Tablet PO 150 mcg DAILY@0630 LENNY Administration Morphine Sulfate 2 mg 01/05/25 11:32 01/10/25 23:12 Morphine Sulfate (*Crx) 4 Mg/Ml Inj IV PUSH 2 mg Q4H PRN Administration Breakthrough Pain Oxycodone HCl 2.5 mg 01/05/25 11:32 01/11/25 05:49 Oxycodone Hcl (*Crx) 2.5 Mg Tab Ir PO 2.5 mg Q4H PRN Administration Pain Rated 4-6 Oxycodone HCl 5 mg 01/05/25 11:32 01/11/25 13:49 Oxycodone Hcl (*Crx) 5 Mg Tab Ir PO 5 mg Q4H PRN Administration Pain Rated 7-10 Pantoprazole Sodium 40 mg 01/05/25 09:00 01/11/25 08:50 Pantoprazole 40 Mg Tablet PO 40 mg Q12HR LENNY Administration Potassium Chloride 20 meq 01/05/25 09:00 01/11/25 08:50 Potassium Chloride 20 Meq Er Tablet PO 20 meq DAILY LENNY Administration Rifaximin 550 mg 01/05/25 09:00 01/11/25 08:48 Rifaximin 550 Mg Tablet PO 550 mg Q12HR LENNY Administration Spironolactone 100 mg 01/08/25 09:00 01/11/25 08:46 Spironolactone 25 Mg Tablet PO Not Given DAILY LENNY Vitamin D 25 mcg 01/05/25 09:00 01/11/25 08:50 Cholecalciferol (Vitamin D3) 25 Mcg (1,000 Units) Tablet PO 25 mcg DAILY LENNY Administration Radiology Results: ITS Impressions Chest X-Ray 01/04/25 19:20 IMPRESSION: 1. No acute cardiopulmonary findings given portable technique. Chest/Abdomen/Pelvis CTA 01/05/25 08:09 IMPRESSION: 1. Cirrhosis of the liver with portal venous hypertension. 2. Large volume of ascites. 3. Nondiagnostic evaluation of the pulmonary arteries. Chest CTA 01/05/25 08:31 IMPRESSION: 1. Negative for pulmonary embolism. No acute process in the visualized chest. Incidental findings above Abdomen X-Ray 01/09/25 17:06 Impression: 1. No acute abnormality. Paracentesis Ultrasound 01/10/25 12:38 IMPRESSION: 1. Successful ultrasound-guided paracentesis yielding 5200 mL of fidencio-colored fluid. Labs Labs: Laboratory Results - last 24 hr 01/10/25 01/11/25 23:30 04:45 WBC 5.5 RBC 2.79 L Hgb 9.0 L Hct 28.4 L MCV 101.8 H MCH 32.3 MCHC 31.7 L RDW 18.4 H Plt Count 80 L MPV 10.2 Immature Gran % (Auto) 0.4 Neut % (Auto) 58.6 Lymph % (Auto) 17.0 L [place] % (Auto) 18.6 H Eos % (Auto) 4.5 H Baso % (Auto) 0.9 Lymph # (Auto) 0.94 [place] # (Auto) 1.0 H Eos # (Auto) 0.3 Baso # (Auto) 0.1 Abs Immat Gran (auto) 0.02 Absolute Neuts (auto) 3.2 Absolute Nucleated RBC 0.000 Band Neutrophils % Not Reportable Nucleated RBC % 0.0 Platelet Estimate Decreased % Immature Plt Fraction 2.0 Anisocytosis 1+ Macrocytosis 1+ Ovalocytes 1+ Schistocytes None seen Sodium 132 L Potassium 3.3 L Chloride 104 Carbon Dioxide 22 Anion Gap 6 BUN 17 Creatinine 1.01 H Estim Creat Clear Calc 66 Estimated GFR 57 L Glucose 92 Calcium 8.1 L Total Bilirubin 2.0 H Direct Bilirubin 0.0 AST 29 ALT 13 Alkaline Phosphatase 84 Total Protein 5.7 L Albumin 2.8 L Ur Random Sodium 46 Ur Random Potassium 41.1
[2025-01-12] VITALS (7 sets, daily range): BP systolic 97–120; BP diastolic 52–72; PULSE 90–102; RESP 17–18; TEMP 36.4–36.9; O2SAT 95–99
[2025-01-12] MEDS: ALBUMIN HUMAN 25% 25 GM/100 ML 100 ML IVPB ×3 (00:11→11:38)
[2025-01-12] MEDS: LACTULOSE 20 GM/30 ML UDC PO ×4 (00:11→17:48)
[2025-01-12] MEDS: oxyCODONE HCL (*CRX) 5 MG TAB IR PO (03:10)
[2025-01-12 05:19] LABS: Hematocrit 24.4 % (37.0-47.0); Hemoglobin 7.6 g/dL (12.0-15.0); Immature Granulocyte Percent A 0.4 % (0-0.5); Immature Platelet Fraction Pct 2.0 % (0.9-11.2); Lymphocytes Absolute Auto 0.70 K/mm3 (0.9-3.2); Mean Corpuscular HGB Conc 31.1 g/dl (32-36); Mean Corpuscular Hemoglobin 31.8 pg (26-34); Mean Corpuscular Volume 102.1 fl (80-100); Nucleated Red Blood Cells Absolute Auto 0.000 K/mm3 (0.0-0.012); Nucleated Red Blood Cells Perc 0.0 % (0.0-0.2); Platelet Count Result 66 k/mm3 (150-375); Red Blood Count 2.39 M/mm3 (4.2-5.4); White Blood Count 4.5 K/mm3 (4.5-10.0)
[2025-01-12 05:26] LABS: Alanine Aminotransferase 9 U/L (6-35); Albumin Level 2.9 g/dL (3.5-5.1); Alkaline Phosphatase 89 U/L (38-126); Anion Gap 7 mmol/L (4-12); Aspartate Amino Transferase 24 U/L (14-36); Bilirubin,Total 2.0 mg/dL (0.2-1.3); Blood Urea Nitrogen 17 mg/dL (7-17); Calcium 8.3 mg/dL (8.4-10.2); Carbon Dioxide 19 mmol/L (22-30); Chloride 105 mmol/L (98-107); Estimated CRCL calculation 69 ml/min; Estimated Glomerular Filt Rate 59; Glucose 105 mg/dL (65-110); Magnesium 2.0 mg/dL (1.6-2.3); Potassium 3.9 mmol/L (3.4-5.0); Sodium 131 mmol/L (137-145); Total Protein 5.4 g/dL (6.3-8.2)
[2025-01-12] MEDS: LEVOTHYROXINE SODIUM 150 MCG TABLET PO (05:54)
[2025-01-12 05:55] LABS: Anisocytosis 1+
[2025-01-12 05:56] LABS: Burr Cells 1+; Schistocytes None Seen
[2025-01-12] MEDS: POTASSIUM CHLORIDE 20 MEQ ER TABLET PO (08:30)
[2025-01-12] MEDS: FOLIC ACID 1 MG TABLET PO (08:33)
[2025-01-12] MEDS: CHOLECALCIFEROL (VITAMIN D3) 25 MCG (1,000 UNITS) TABLET PO (08:33)
[2025-01-12] MEDS: PANTOPRAZOLE 40 MG TABLET PO ×2 (08:33→21:43)
[2025-01-12] MEDS: SPIRONOLACTONE 25 MG TABLET 100 MG PO (08:34)
[2025-01-12] MEDS: BUMETANIDE 1 MG TABLET 2 MG PO ×2 (08:34→17:48)
--- NOTE | 2025-01-12 09:59 | ECG_ITS ---
Test Date: 2025-01-12 10:16:54 Measurements Intervals [place] Rate: 92 P: 122 TX: 208 QRS: -46 QRSD: 127 T: 61 QT: 386 QTc: 479 Interpretive Statements SINUS RHYTHM LEFT ANTERIOR FASCICULAR BLOCK BASELINE ARTIFACT- II, III, V1, V4-V6 ABNORMAL ECG Compared to ECG 01/05/2025 00:08:09 No significant changes Electronically Signed On 01-12-2025 10:48:04 CDT by Glen Woorduff D.O.
[2025-01-12 11:42] LABS: Hematocrit 25.9 % (37.0-47.0); Hemoglobin 8.3 g/dL (12.0-15.0); Mean Corpuscular HGB Conc 32.0 g/dl (32-36); Mean Corpuscular Hemoglobin 32.0 pg (26-34); Mean Corpuscular Volume 100.0 fl (80-100); Platelet Count Result 73 k/mm3 (150-375); Red Blood Count 2.59 M/mm3 (4.2-5.4); White Blood Count 4.8 K/mm3 (4.5-10.0)
--- NOTE | 2025-01-12 14:09 | P.PNIM_ITS ---
Progress Note: A&P Assessment and Plan (1) Cirrhosis of liver: Code(s): K74.60 - Unspecified cirrhosis of liver Status: Acute Assessment and Plan: Decompensated Cirrhosis w/ ascites -Not sure of her Bumex dose at home, likely 2mg per prior discharge summary. Not on spironolactone, which was started during this admission. -S/p Paracentesis with 6 liters off 01/05, paracentesis on 01/10 yielding 5200 mL. Recieved albumin post-procedure. Bilirubin improved/stable. Cultures negative, Rocephin stopped -Continue Bumex 2mg BID, Aldactone 100 mg daily - Continuing home rifaximin and lactulose - Coreg on hold due to hypotension. OK to hold on discharge per Dr. Lopez. -Pain with ascites--low dose Tylenol, oxycodone, morphine prn -Doesn't have a PCP. Goes to hepatology at [facility] but hasn't gone recently. -GI following (2) Chronic respiratory failure with hypoxia, on home O2 therapy: Code(s): J96.11 - Chronic respiratory failure with hypoxia; Z99.81 - Dependence on supplemental oxygen Status: Acute Assessment and Plan: -stable on baseline 3 L. Has had gradually increasing shortness of breath and ascites in the last week. Reporting her oxygen tank is not functioning. Care coordination confirmed with patient's father who lives with her that concentrator is functioning. (3) Abdominal pain: Code(s): R10.9 - Unspecified abdominal pain Status: Acute Assessment and Plan: -Secondary to ascites/distention above - paracentesis x2 without concerns for SBP. Stopped Rocephin. - recheck KUB (4) Hypothyroidism: Code(s): E03.9 - Hypothyroidism, unspecified Status: Acute Assessment and Plan: - TSH >24. Increase Synthroid from 125<150 daily. She reports taking regularly Recheck in 6 weeks. Plan DVT prophylaxis: heparin subQ Code status: full code Disposition: discharge tomorrow if BP and Hgb stable Subjective Date/time seen: 01/12/25 14:09 Interval history: Patient seen and examined at bedside. Overall feeling somewhat better, but still having some abdominal pain. Reports she hasn't had a BM in 2 days. Denies chest pain, SOB. Review of Systems Review of Systems: All systems reviewed & are unremarkable except as noted in HPI and below Exam Narrative: General: NAD Eyes: EOMI ENT: neck supple Cardiovascular: Regular rate and rhythm Respiratory: Clear to auscultation, respirations even and unlabored on 3L NC Gastrointestinal: Soft, non tender Genitourinary: mild distention, nontender, umbilical hernia reducible with visible ascites Musculoskeletal: No edema Skin: warm, dry Neuro: Alert. Psych: Mood appropriate Objective Data Vital Signs Vital Signs: Vital Signs - 24 hr 01/11/25 16:31 01/11/25 19:50 01/11/25 20:00 Temperature 97.5 F L 97.9 F Pulse Rate 93 84 102 H Respiratory Rate 18 18 18 Blood Pressure 96/48 L 101/53 L Pulse Oximetry 95 96 95 Oxygen Delivery Nasal Cannula Oxygen Flow Rate 3 Fraction of Inspired Oxygen 32 01/12/25 00:21 01/12/25 03:50 01/12/25 08:35 Temperature 97.9 F Pulse Rate 102 H Respiratory Rate 18 Blood Pressure 97/52 L 114/59 L Pulse Oximetry 95 95 Oxygen Delivery Nasal Cannula Oxygen Flow Rate 3 Fraction of Inspired Oxygen 01/12/25 09:56 Temperature Pulse Rate Respiratory Rate Blood Pressure Pulse Oximetry 95 Oxygen Delivery Nasal Cannula Oxygen Flow Rate 3 Fraction of Inspired Oxygen Intake/Output Intake/Output: Intake & Output 01/09/25 01/10/25 01/11/25 01/12/25 23:59 23:59 23:59 23:59 Intake Total 1334 1230 2060 1250 Output Total 950 5850 350 Balance 384 -1315 1710 1250 Meds/Results Medications: Active Medications Generic Name Dose Route Start Last Admin Trade Name Freq PRN Reason Stop Dose Admin Acetaminophen 325 mg 01/05/25 11:33 01/11/25 08:51 Acetaminophen 325 Mg Tablet PO 325 mg Q6H PRN Administration Mild Pain (1-3) or Fever Bumetanide 2 mg 01/08/25 17:00 01/12/25 08:34 Bumetanide 1 Mg Tablet PO 2 mg BID LENNY Administration Carvedilol 3.125 mg 01/05/25 09:00 01/07/25 08:33 Carvedilol 3.125 Mg Tablet PO Not Given On Hold: 01/07/25 09:08 Q12HR LENNY Docusate Sodium 100 mg 01/05/25 05:55 Docusate Sodium 100 Mg Capsule PO Q12H PRN Constipation Folic Acid 1 mg 01/05/25 09:00 01/12/25 08:33 Folic Acid 1 Mg Tablet PO 1 mg DAILY LENNY Administration Heparin Sodium (Porcine) 5,000 units 01/05/25 22:00 01/09/25 14:14 Heparin Sodium 5,000 Units/Ml Vial SUB-Q 5,000 units On Hold: 01/09/25 18:43 Q8HR LENNY Administration Albumin Human 100 mls @ 60 mls/hr 01/11/25 12:00 01/12/25 13:29 Albutein IVPB Infused Q6HR LENNY Infusion Lactulose 20 gm 01/05/25 06:00 01/12/25 11:39 Lactulose 20 Gm/30 Ml Udc PO 20 gm Q6HR LENNY Administration Levothyroxine Sodium 150 mcg 01/06/25 06:30 01/12/25 05:54 Levothyroxine Sodium 150 Mcg Tablet PO 150 mcg DAILY@0630 LENNY Administration Morphine Sulfate 2 mg 01/05/25 11:32 01/10/25 23:12 Morphine Sulfate (*Crx) 4 Mg/Ml Inj IV PUSH 2 mg Q4H PRN Administration Breakthrough Pain Oxycodone HCl 2.5 mg 01/05/25 11:32 01/11/25 05:49 Oxycodone Hcl (*Crx) 2.5 Mg Tab Ir PO 2.5 mg Q4H PRN Administration Pain Rated 4-6 Oxycodone HCl 5 mg 01/05/25 11:32 01/12/25 03:10 Oxycodone Hcl (*Crx) 5 Mg Tab Ir PO 5 mg Q4H PRN Administration Pain Rated 7-10 Pantoprazole Sodium 40 mg 01/05/25 09:00 01/12/25 08:33 Pantoprazole 40 Mg Tablet PO 40 mg Q12HR LENNY Administration Potassium Chloride 20 meq 01/05/25 09:00 01/12/25 08:30 Potassium Chloride 20 Meq Er Tablet PO 20 meq DAILY LENNY Administration Rifaximin 550 mg 01/05/25 09:00 01/12/25 08:33 Rifaximin 550 Mg Tablet PO 550 mg Q12HR LENNY Administration Spironolactone 100 mg 01/08/25 09:00 01/12/25 08:34 Spironolactone 25 Mg Tablet PO 100 mg DAILY LENNY Administration Vitamin D 25 mcg 01/05/25 09:00 01/12/25 08:33 Cholecalciferol (Vitamin D3) 25 Mcg (1,000 Units) Tablet PO 25 mcg DAILY LENNY Administration Radiology Results: ITS Impressions Chest X-Ray 01/04/25 19:20 IMPRESSION: 1. No acute cardiopulmonary findings given portable technique. Chest/Abdomen/Pelvis CTA 01/05/25 08:09 IMPRESSION: 1. Cirrhosis of the liver with portal venous hypertension. 2. Large volume of ascites. 3. Nondiagnostic evaluation of the pulmonary arteries. Chest CTA 01/05/25 08:31 IMPRESSION: 1. Negative for pulmonary embolism. No acute process in the visualized chest. Incidental findings above Abdomen X-Ray 01/09/25 17:06 Impression: 1. No acute abnormality. Paracentesis Ultrasound 01/10/25 12:38 IMPRESSION: 1. Successful ultrasound-guided paracentesis yielding 5200 mL of fidencio-colored fluid. Labs Labs: Laboratory Results - last 24 hr 01/12/25 01/12/25 04:36 11:32 WBC 4.5 4.8 RBC 2.39 L 2.59 L Hgb 7.6 L 8.3 L Hct 24.4 L 25.9 L MCV 102.1 H 100.0 MCH 31.8 32.0 MCHC 31.1 L 32.0 RDW 18.3 H 18.4 H Plt Count 66 L 73 L MPV 9.9 9.8 Immature Gran % (Auto) 0.4 Neut % (Auto) 59.9 Lymph % (Auto) 15.5 L [place] % (Auto) 20.0 H Eos % (Auto) 3.5 Baso % (Auto) 0.7 Lymph # (Auto) 0.70 L [place] # (Auto) 0.9 H Eos # (Auto) 0.2 Baso # (Auto) 0.0 Abs Immat Gran (auto) 0.02 Absolute Neuts (auto) 2.7 Absolute Nucleated RBC 0.000 Band Neutrophils % Not Reportable Nucleated RBC % 0.0 Platelet Estimate Decreased % Immature Plt Fraction 2.0 Anisocytosis 1+ Bridget Cells 1+ Schistocytes None seen Sodium 131 L Potassium 3.9 Chloride 105 Carbon Dioxide 19 L Anion Gap 7 BUN 17 Creatinine 0.98 Estim Creat Clear Calc 69 Estimated GFR 59 Glucose 105 Calcium 8.3 L Magnesium 2.0 Total Bilirubin 2.0 H Direct Bilirubin 0.0 AST 24 ALT 9 Alkaline Phosphatase 89 Total Protein 5.4 L Albumin 2.9 L Quality VTE Prophylaxis VTE prophylaxis: mechanical ordered and pharmacologic ordered
--- NOTE | 2025-01-12 15:40 | P.PNGI_ITS ---
Progress Note: A&P Assessment and Plan (1) Decompensation of cirrhosis of liver: Code(s): K72.90 - Hepatic failure, unspecified without coma; K74.60 - Unspecified cirrhosis of liver Status: Acute Assessment and Plan: ? 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 but no signs of gib- b-derrek on hold, BP was running in low side h/o PSE on xifaxan and lactulose- she is not confused now 2g na salt diet most recent Na/K urine ratio >1 which indicates adequate natriuresis, continue with same diuretic dosing but also will continue to get paracentesis as needed (already set up at [facility] every 1-2 weeks as needed per patient) will need to follow-up with station worker in [facility] for liver transplant evaluation,hopefully discharge soon if more comfortable will follow as needed (2) Ascites: Qualifiers: Ascites type: other type Qualified Code(s): R18.8 - Other ascites Code(s): R18.8 - Other ascites Status: Acute Assessment and Plan: s/p paracentesis no sbp antibiotic already discontinued, also ok to dc albumin most likely will need to continue to get paracentesis as outpatient as needed and continue with diuretics (3) Abdominal pain: Code(s): R10.9 - Unspecified abdominal pain Status: Acute (4) Thrombocytopenia: Code(s): D69.6 - Thrombocytopenia, unspecified Status: Chronic Assessment and Plan: from cirrhosis Subjective Date/time seen: 01/12/25 15:40 Interval history: better today, eating still some abdominal discomfort Review of Systems Review of Systems: All systems reviewed & are unremarkable except as noted in HPI and below Exam Const: General: comfortable and no acute distress Other: A&O x3 HENMT: Mouth: Yes moist mucous membranes Eyes: Pupils: Equal, round and reactive pupils present Neck: Neck: supple Resp: Effort & Inspection: normal respiratory effort Auscultation: clear to auscultation bilaterally Cardio: Rate: regular rate Rhythm: regular rhythm Heart sounds: no murmurs GI: Inspection: distended GI Palp: No Guarding due to palpation present (GI) and Yes Hernia present umbilical Other: + fluid wave c/w ascites mild pain, no rebound- unchanged Skin: General skin exam: normal color Neuro: Speech: normal speech Motor exam (neuro): 5/5 motor strength present throughout Extrem: General: edema Psych: Mental Status: mental status grossly normal Objective Data Vital Signs Vital Signs: Vital Signs - 24 hr 01/11/25 16:31 01/11/25 19:50 01/11/25 20:00 Temperature 97.5 F L 97.9 F Pulse Rate 93 84 102 H Respiratory Rate 18 18 18 Blood Pressure 96/48 L 101/53 L Pulse Oximetry 95 96 95 Oxygen Delivery Nasal Cannula Oxygen Flow Rate 3 Fraction of Inspired Oxygen 32 01/12/25 00:21 01/12/25 03:50 01/12/25 08:35 Temperature 97.9 F Pulse Rate 102 H Respiratory Rate 18 Blood Pressure 97/52 L 114/59 L Pulse Oximetry 95 95 Oxygen Delivery Nasal Cannula Oxygen Flow Rate 3 Fraction of Inspired Oxygen 01/12/25 09:56 Temperature Pulse Rate Respiratory Rate Blood Pressure Pulse Oximetry 95 Oxygen Delivery Nasal Cannula Oxygen Flow Rate 3 Fraction of Inspired Oxygen Intake/Output Intake/Output: Intake & Output 01/09/25 01/10/25 01/11/25 01/12/25 23:59 23:59 23:59 23:59 Intake Total 1334 1230 2060 1250 Output Total 950 5850 350 Balance 384 4615 1710 1250 Meds/Results Medications: Active Medications Generic Name Dose Route Start Last Admin Trade Name Freq PRN Reason Stop Dose Admin Acetaminophen 325 mg 01/05/25 11:33 01/11/25 08:51 Acetaminophen 325 Mg Tablet PO 325 mg Q6H PRN Administration Mild Pain (1-3) or Fever Bumetanide 2 mg 01/08/25 17:00 01/12/25 08:34 Bumetanide 1 Mg Tablet PO 2 mg BID LENNY Administration Carvedilol 3.125 mg 01/05/25 09:00 01/07/25 08:33 Carvedilol 3.125 Mg Tablet PO Not Given On Hold: 01/07/25 09:08 Q12HR LENNY Docusate Sodium 100 mg 01/05/25 05:55 Docusate Sodium 100 Mg Capsule PO Q12H PRN Constipation Folic Acid 1 mg 01/05/25 09:00 01/12/25 08:33 Folic Acid 1 Mg Tablet PO 1 mg DAILY LENNY Administration Heparin Sodium (Porcine) 5,000 units 01/05/25 22:00 01/09/25 14:14 Heparin Sodium 5,000 Units/Ml Vial SUB-Q 5,000 units On Hold: 01/09/25 18:43 Q8HR LENNY Administration Lactulose 20 gm 01/05/25 06:00 01/12/25 11:39 Lactulose 20 Gm/30 Ml Udc PO 20 gm Q6HR LENNY Administration Levothyroxine Sodium 150 mcg 01/06/25 06:30 01/12/25 05:54 Levothyroxine Sodium 150 Mcg Tablet PO 150 mcg DAILY@0630 LENNY Administration Oxycodone HCl 2.5 mg 01/05/25 11:32 01/11/25 05:49 Oxycodone Hcl (*Crx) 2.5 Mg Tab Ir PO 2.5 mg Q4H PRN Administration Pain Rated 4-6 Oxycodone HCl 5 mg 01/05/25 11:32 01/12/25 03:10 Oxycodone Hcl (*Crx) 5 Mg Tab Ir PO 5 mg Q4H PRN Administration Pain Rated 7-10 Pantoprazole Sodium 40 mg 01/05/25 09:00 01/12/25 08:33 Pantoprazole 40 Mg Tablet PO 40 mg Q12HR LENNY Administration Potassium Chloride 20 meq 01/05/25 09:00 01/12/25 08:30 Potassium Chloride 20 Meq Er Tablet PO 20 meq DAILY LENNY Administration Rifaximin 550 mg 01/05/25 09:00 01/12/25 08:33 Rifaximin 550 Mg Tablet PO 550 mg Q12HR LENNY Administration Spironolactone 100 mg 01/08/25 09:00 01/12/25 08:34 Spironolactone 25 Mg Tablet PO 100 mg DAILY LENNY Administration Vitamin D 25 mcg 01/05/25 09:00 01/12/25 08:33 Cholecalciferol (Vitamin D3) 25 Mcg (1,000 Units) Tablet PO 25 mcg DAILY LENNY Administration Radiology Results: ITS Impressions Chest X-Ray 01/04/25 19:20 IMPRESSION: 1. No acute cardiopulmonary findings given portable technique. Chest/Abdomen/Pelvis CTA 01/05/25 08:09 IMPRESSION: 1. Cirrhosis of the liver with portal venous hypertension. 2. Large volume of ascites. 3. Nondiagnostic evaluation of the pulmonary arteries. Chest CTA 01/05/25 08:31 IMPRESSION: 1. Negative for pulmonary embolism. No acute process in the visualized chest. Incidental findings above Paracentesis Ultrasound 01/10/25 12:38 IMPRESSION: 1. Successful ultrasound-guided paracentesis yielding 5200 mL of fidencio-colored fluid. Abdomen X-Ray 01/12/25 15:33 IMPRESSION: Constipation. Labs Labs: Laboratory Results - last 24 hr 01/12/25 01/12/25 04:36 11:32 WBC 4.5 4.8 RBC 2.39 L 2.59 L Hgb 7.6 L 8.3 L Hct 24.4 L 25.9 L MCV 102.1 H 100.0 MCH 31.8 32.0 MCHC 31.1 L 32.0 RDW 18.3 H 18.4 H Plt Count 66 L 73 L MPV 9.9 9.8 Immature Gran % (Auto) 0.4 Neut % (Auto) 59.9 Lymph % (Auto) 15.5 L [place] % (Auto) 20.0 H Eos % (Auto) 3.5 Baso % (Auto) 0.7 Lymph # (Auto) 0.70 L [place] # (Auto) 0.9 H Eos # (Auto) 0.2 Baso # (Auto) 0.0 Abs Immat Gran (auto) 0.02 Absolute Neuts (auto) 2.7 Absolute Nucleated RBC 0.000 Band Neutrophils % Not Reportable Nucleated RBC % 0.0 Platelet Estimate Decreased % Immature Plt Fraction 2.0 Anisocytosis 1+ Bridget Cells 1+ Schistocytes None seen Sodium 131 L Potassium 3.9 Chloride 105 Carbon Dioxide 19 L Anion Gap 7 BUN 17 Creatinine 0.98 Estim Creat Clear Calc 69 Estimated GFR 59 Glucose 105 Calcium 8.3 L Magnesium 2.0 Total Bilirubin 2.0 H Direct Bilirubin 0.0 AST 24 ALT 9 Alkaline Phosphatase 89 Total Protein 5.4 L Albumin 2.9 L
[2025-01-13] VITALS (9 sets, daily range): BP systolic 99–140; BP diastolic 46–76; PULSE 90–96; RESP 14–20; TEMP 36.5–36.8; O2SAT 95–98
[2025-01-13] MEDS: LACTULOSE 20 GM/30 ML UDC PO ×3 (00:56→17:08)
[2025-01-13] MEDS: oxyCODONE HCL (*CRX) 5 MG TAB IR PO ×3 (00:56→21:40)
[2025-01-13 04:21] LABS: Hematocrit 24.6 % (37.0-47.0); Hemoglobin 7.9 g/dL (12.0-15.0); Immature Granulocyte Percent A 0.4 % (0-0.5); Immature Platelet Fraction Pct 2.0 % (0.9-11.2); Lymphocytes Absolute Auto 0.69 K/mm3 (0.9-3.2); Mean Corpuscular HGB Conc 32.1 g/dl (32-36); Mean Corpuscular Hemoglobin 32.1 pg (26-34); Mean Corpuscular Volume 100.0 fl (80-100); Nucleated Red Blood Cells Absolute Auto 0.000 K/mm3 (0.0-0.012); Nucleated Red Blood Cells Perc 0.0 % (0.0-0.2); Platelet Count Result 72 k/mm3 (150-375); Red Blood Count 2.46 M/mm3 (4.2-5.4); White Blood Count 5.0 K/mm3 (4.5-10.0)
[2025-01-13 04:46] LABS: Hypochromasia 1+; Ovalocytes 1+; Schistocytes None Seen
[2025-01-13 04:59] LABS: Alanine Aminotransferase 11 U/L (6-35); Albumin Level 3.1 g/dL (3.5-5.1); Alkaline Phosphatase 78 U/L (38-126); Anion Gap 6 mmol/L (4-12); Aspartate Amino Transferase 23 U/L (14-36); Bilirubin,Total 2.9 mg/dL (0.2-1.3); Blood Urea Nitrogen 13 mg/dL (7-17); Calcium 8.2 mg/dL (8.4-10.2); Carbon Dioxide 22 mmol/L (22-30); Chloride 101 mmol/L (98-107); Estimated CRCL calculation 77 ml/min; Estimated Glomerular Filt Rate > 60; Glucose 80 mg/dL (65-110); Potassium 3.5 mmol/L (3.4-5.0); Sodium 129 mmol/L (137-145); Total Protein 5.6 g/dL (6.3-8.2)
[2025-01-13] MEDS: LEVOTHYROXINE SODIUM 150 MCG TABLET PO (05:54)
[2025-01-13] MEDS: DOCUSATE SODIUM 100 MG CAPSULE PO (09:18)
[2025-01-13] MEDS: PANTOPRAZOLE 40 MG TABLET PO ×2 (09:18→20:14)
[2025-01-13] MEDS: FOLIC ACID 1 MG TABLET PO (09:18)
[2025-01-13] MEDS: BUMETANIDE 1 MG TABLET 2 MG PO (09:18)
[2025-01-13] MEDS: POTASSIUM CHLORIDE 20 MEQ ER TABLET PO (09:18)
[2025-01-13] MEDS: CHOLECALCIFEROL (VITAMIN D3) 25 MCG (1,000 UNITS) TABLET PO (09:18)
[2025-01-13] MEDS: SPIRONOLACTONE 25 MG TABLET 100 MG PO (09:18)
--- NOTE | 2025-01-13 13:43 | P.PNIM_ITS ---
Progress Note: A&P Assessment and Plan (1) Cirrhosis of liver: Code(s): K74.60 - Unspecified cirrhosis of liver Status: Acute Assessment and Plan: Decompensated Cirrhosis w/ ascites -Not sure of her Bumex dose at home, likely 2mg per prior discharge summary. Not on spironolactone, which was started during this admission. -S/p Paracentesis with 6 liters off 01/05, paracentesis on 01/10 yielding 5200 mL. Received albumin post-procedure. Bilirubin improved/stable. Cultures negative, Rocephin stopped -Continue Bumex 2mg BID, Aldactone 100 mg daily - Continuing home rifaximin and lactulose - Coreg on hold due to hypotension. OK to hold on discharge per Dr. Lopez. -Pain with ascites--low dose Tylenol, oxycodone, morphine prn -Doesn't have a PCP. Goes to hepatology at [facility] but hasn't gone recently. -GI following. Recommended repeat therapeutic paracentesis. Did not recommend transfer at this time. (2) Chronic respiratory failure with hypoxia, on home O2 therapy: Code(s): J96.11 - Chronic respiratory failure with hypoxia; Z99.81 - Dependence on supplemental oxygen Status: Acute Assessment and Plan: -stable on baseline 3 L. Has had gradually increasing shortness of breath and ascites in the last week. Reporting her oxygen tank is not functioning. Care coordination confirmed with patient's father who lives with her that concentrator is functioning. (3) Abdominal pain: Code(s): R10.9 - Unspecified abdominal pain Status: Acute Assessment and Plan: -Secondary to ascites/distention above - paracentesis x2 without concerns for SBP. Stopped Rocephin. (4) Hypothyroidism: Code(s): E03.9 - Hypothyroidism, unspecified Status: Acute Assessment and Plan: - TSH >24. Increase Synthroid from 125<150 daily. She reports taking regularly Recheck in 6 weeks. Plan DVT prophylaxis: heparin subQ Code status: full code Disposition: discharge tomorrow if BP and Hgb stable Subjective Date/time seen: 01/13/25 13:43 Interval history: Patient seen and examined at bedside. Having abdominal distention and shortness of breath. Denied urinary symptoms. Review of Systems Review of Systems: All systems reviewed & are unremarkable except as noted in HPI and below Exam Narrative: General: NAD Eyes: EOMI ENT: neck supple Cardiovascular: Regular rate and rhythm Respiratory: faint expiratory wheeze, respirations even and unlabored on 3L NC Gastrointestinal: Soft, non tender Genitourinary: moderate distention, nontender, umbilical hernia reducible with visible ascites Musculoskeletal: No edema Skin: warm, dry Neuro: Alert. Psych: Mood appropriate Objective Data Vital Signs Vital Signs: Vital Signs - 24 hr 01/12/25 14:00 01/12/25 20:00 01/12/25 22:00 Temperature 97.6 F 98.4 F Pulse Rate 92 90 90 Respiratory Rate 17 18 18 Blood Pressure 116/72 120/58 L Pulse Oximetry 99 96 96 Oxygen Delivery Nasal Cannula Oxygen Flow Rate 3 Fraction of Inspired Oxygen 32 01/13/25 06:00 01/13/25 09:15 Temperature 98.1 F Pulse Rate 93 Respiratory Rate 18 Blood Pressure 140/76 Pulse Oximetry 95 95 Oxygen Delivery Nasal Cannula Oxygen Flow Rate 3 Fraction of Inspired Oxygen Intake/Output Intake/Output: Intake & Output 01/10/25 01/11/25 01/12/25 01/13/25 23:59 23:59 23:59 23:59 Intake Total 1230 2060 1472 444 Output Total 5850 350 2 Balance -4620 1710 1472 442 Meds/Results Medications: Active Medications Generic Name Dose Route Start Last Admin Trade Name Freq PRN Reason Stop Dose Admin Acetaminophen 325 mg 01/05/25 11:33 01/11/25 08:51 Acetaminophen 325 Mg Tablet PO 325 mg Q6H PRN Administration Mild Pain (1-3) or Fever Albuterol/Ipratropium 3 ml 01/13/25 14:00 Ipratropium 0.5 Mg/Albuterol Sulfate 2.5 Mg (Base) Ampul.Neb 3 Ml INHALATION Q6HRT [facility] Bumetanide 2 mg 01/08/25 17:00 01/13/25 09:18 Bumetanide 1 Mg Tablet PO 2 mg BID [facility] Administration Carvedilol 3.125 mg 01/05/25 09:00 01/07/25 08:33 Carvedilol 3.125 Mg Tablet PO Not Given On Hold: 01/07/25 09:08 Q12HR [facility] Docusate Sodium 100 mg 01/05/25 05:55 01/13/25 09:18 Docusate Sodium 100 Mg Capsule PO 100 mg Q12H PRN Administration Constipation Folic Acid 1 mg 01/05/25 09:00 01/13/25 09:18 Folic Acid 1 Mg Tablet PO 1 mg DAILY [facility] Administration Heparin Sodium (Porcine) 5,000 units 01/05/25 22:00 01/09/25 14:14 Heparin Sodium 5,000 Units/Ml Vial SUB-Q 5,000 units On Hold: 01/09/25 18:43 Q8HR [facility] Administration Lactulose 20 gm 01/05/25 06:00 01/13/25 12:16 Lactulose 20 Gm/30 Ml Udc PO Not Given Q6HR [facility] Levothyroxine Sodium 150 mcg 01/06/25 06:30 01/13/25 05:54 Levothyroxine Sodium 150 Mcg Tablet PO 150 mcg DAILY@0630 [facility] Administration Oxycodone HCl 2.5 mg 01/05/25 11:32 01/11/25 05:49 Oxycodone Hcl (*Crx) 2.5 Mg Tab Ir PO 2.5 mg Q4H PRN Administration Pain Rated 4-6 Oxycodone HCl 5 mg 01/05/25 11:32 01/13/25 00:56 Oxycodone Hcl (*Crx) 5 Mg Tab Ir PO 5 mg Q4H PRN Administration Pain Rated 7-10 Pantoprazole Sodium 40 mg 01/05/25 09:00 01/13/25 09:18 Pantoprazole 40 Mg Tablet PO 40 mg Q12HR [facility] Administration Potassium Chloride 20 meq 01/05/25 09:00 01/13/25 09:18 Potassium Chloride 20 Meq Er Tablet PO 20 meq DAILY [facility] Administration Rifaximin 550 mg 01/05/25 09:00 01/13/25 09:18 Rifaximin 550 Mg Tablet PO 550 mg Q12HR [facility] Administration Spironolactone 100 mg 01/08/25 09:00 01/13/25 09:18 Spironolactone 25 Mg Tablet PO 100 mg DAILY [facility] Administration Vitamin D 25 mcg 01/05/25 09:00 01/13/25 09:18 Cholecalciferol (Vitamin D3) 25 Mcg (1,000 Units) Tablet PO 25 mcg DAILY [facility] Administration Radiology Results: ITS Impressions Chest X-Ray 01/04/25 19:20 IMPRESSION: 1. No acute cardiopulmonary findings given portable technique. Chest/Abdomen/Pelvis CTA 01/05/25 08:09 IMPRESSION: 1. Cirrhosis of the liver with portal venous hypertension. 2. Large volume of ascites. 3. Nondiagnostic evaluation of the pulmonary arteries. Chest CTA 01/05/25 08:31 IMPRESSION: 1. Negative for pulmonary embolism. No acute process in the visualized chest. Incidental findings above Paracentesis Ultrasound 01/10/25 12:38 IMPRESSION: 1. Successful ultrasound-guided paracentesis yielding 5200 mL of fidencio-colored fluid. Abdomen X-Ray 01/12/25 15:33 IMPRESSION: Constipation. Labs Labs: Laboratory Results - last 24 hr 01/13/25 03:38 WBC 5.0 RBC 2.46 L Hgb 7.9 L Hct 24.6 L MCV 100.0 MCH 32.1 MCHC 32.1 RDW 18.6 H Plt Count 72 L MPV 10.0 Immature Gran % (Auto) 0.4 Neut % (Auto) 58.2 Lymph % (Auto) 13.8 L [place] % (Auto) 24.2 H Eos % (Auto) 2.4 Baso % (Auto) 1.0 Lymph # (Auto) 0.69 L [place] # (Auto) 1.2 H Eos # (Auto) 0.1 Baso # (Auto) 0.1 Abs Immat Gran (auto) 0.02 Absolute Neuts (auto) 2.9 Absolute Nucleated RBC 0.000 Band Neutrophils % Not Reportable Nucleated RBC % 0.0 Platelet Estimate Decreased % Immature Plt Fraction 2.0 Hypochromasia 1+ Ovalocytes 1+ Schistocytes None seen Sodium 129 L Potassium 3.5 Chloride 101 Carbon Dioxide 22 Anion Gap 6 BUN 13 Creatinine 0.87 Estim Creat Clear Calc 77 Estimated GFR > 60 Glucose 80 Calcium 8.2 L Total Bilirubin 2.9 H Direct Bilirubin 0.0 AST 23 ALT 11 Alkaline Phosphatase 78 Total Protein 5.6 L Albumin 3.1 L Quality VTE Prophylaxis VTE prophylaxis: mechanical ordered and pharmacologic ordered
[2025-01-13] MEDS: IPRATROPIUM 0.5 MG/ALBUTEROL SULFATE 2.5 MG (BASE) AMPUL.NEB 3 ML INHALATION ×2 (14:46→21:27)
[2025-01-14] VITALS (10 sets, daily range): BP systolic 97–109; BP diastolic 49–58; PULSE 91–104; RESP 16–18; TEMP 36.9–37.1; O2SAT 90–94
[2025-01-14] MEDS: LACTULOSE 20 GM/30 ML UDC PO ×2 (00:11→05:26)
[2025-01-14] MEDS: IPRATROPIUM 0.5 MG/ALBUTEROL SULFATE 2.5 MG (BASE) AMPUL.NEB 3 ML INHALATION ×3 (02:10→14:00)
[2025-01-14] MEDS: LEVOTHYROXINE SODIUM 150 MCG TABLET PO (05:26)
[2025-01-14 05:28] LABS: Hematocrit 24.1 % (37.0-47.0); Hemoglobin 7.7 g/dL (12.0-15.0); Immature Granulocyte Percent A 0.6 % (0-0.5); Lymphocytes Absolute Auto 0.82 K/mm3 (0.9-3.2); Mean Corpuscular HGB Conc 32.0 g/dl (32-36); Mean Corpuscular Hemoglobin 32.4 pg (26-34); Mean Corpuscular Volume 101.3 fl (80-100); Nucleated Red Blood Cells Absolute Auto 0.000 K/mm3 (0.0-0.012); Nucleated Red Blood Cells Perc 0.0 % (0.0-0.2); Platelet Count Result 65 k/mm3 (150-375); Red Blood Count 2.38 M/mm3 (4.2-5.4); White Blood Count 5.1 K/mm3 (4.5-10.0)
[2025-01-14] MEDS: oxyCODONE HCL (*CRX) 5 MG TAB IR PO (05:28)
[2025-01-14 05:36] LABS: Alanine Aminotransferase 11 U/L (6-35); Albumin Level 2.8 g/dL (3.5-5.1); Alkaline Phosphatase 70 U/L (38-126); Anion Gap 6 mmol/L (4-12); Aspartate Amino Transferase 24 U/L (14-36); Bilirubin,Total 2.8 mg/dL (0.2-1.3); Blood Urea Nitrogen 14 mg/dL (7-17); Calcium 8.0 mg/dL (8.4-10.2); Carbon Dioxide 22 mmol/L (22-30); Chloride 100 mmol/L (98-107); Estimated CRCL calculation 75 ml/min; Estimated Glomerular Filt Rate > 60; Glucose 95 mg/dL (65-110); Potassium 3.5 mmol/L (3.4-5.0); Sodium 128 mmol/L (137-145); Total Protein 5.2 g/dL (6.3-8.2)
[2025-01-14 05:55] LABS: Anisocytosis 1+; Burr Cells 1+; Hypochromasia 1+; Ovalocytes 1+
[2025-01-14] MEDS: CHOLECALCIFEROL (VITAMIN D3) 25 MCG (1,000 UNITS) TABLET PO (08:39)
[2025-01-14] MEDS: DOCUSATE SODIUM 100 MG CAPSULE PO (08:40)
[2025-01-14] MEDS: SPIRONOLACTONE 25 MG TABLET 100 MG PO (08:40)
[2025-01-14] MEDS: FOLIC ACID 1 MG TABLET PO (08:40)
[2025-01-14] MEDS: BUMETANIDE 1 MG TABLET 2 MG PO (08:40)
[2025-01-14] MEDS: PANTOPRAZOLE 40 MG TABLET PO (08:40)
[2025-01-14] MEDS: POTASSIUM CHLORIDE 20 MEQ ER TABLET PO (08:40)
--- NOTE | 2025-01-14 11:46 | PM.DS ---
DS: Admitting Diagnosis Discharge Date 01/14/25 Admitting Diagnosis - decompensated cirrhosis with ascites - chronic respiratory failure with hypoxia - abdominal pain - hypothyroidism DS: Discharge Diagnosis Discharge Diagnosis (1) Cirrhosis of liver: Code(s): K74.60 - Unspecified cirrhosis of liver Status: Acute (2) Chronic respiratory failure with hypoxia, on home O2 therapy: Code(s): J96.11 - Chronic respiratory failure with hypoxia; Z99.81 - Dependence on supplemental oxygen Status: Acute (3) Abdominal pain: Code(s): R10.9 - Unspecified abdominal pain Status: Acute (4) Hypothyroidism: Code(s): E03.9 - Hypothyroidism, unspecified Status: Acute DS: Summary Hospital Course Reason for hospitalization: - decompensated cirrhosis with ascites - chronic respiratory failure with hypoxia - abdominal pain - hypothyroidism Hospital Course: 54-year-old female with PMH hypothyroidism, cirrhosis follows at [facility], ascites requiring paracentesis approximately weekly, chronic respiratory failure on 3 L nasal cannula, recently discharged from [facility] on 12/30/2024 with pneumonia, presents again on 01/04/2025 with shortness of breath. In ED, patient found to be hypoxic to 80% on RA. CTA chest PE with abdomen pelvis obtained, no PE. Massive ascites. Patient was admitted for further evaluation and management. 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 She has previously followed at [facility], but has had poor compliance with follow-up. On admission, GI was consulted. Patient was placed on IV Rocephin for SBP prophylaxis. She subsequently underwent paracentesis x3 while admitted (01/05 (6000cc), 01/10 (5200 cc), 01/13 (3300 cc). Recieved albumin post-procedure 01/05 and 01/10. No concern for SBP per fluid analysis and no urinary symptoms so IV Rocephin was stopped. Case was discussed extensively with the GI team who continues to recommend that patient follow-up with her forepart rasper at [facility] as an outpatient. Per documentation, patient does have a standing order for outpatient paracentesis every 1-2 weeks at [facility], but has trouble with transportation. Patient has been given resources for arranging transportation with her insurance. While admitted, patient's diuretics were titrated and patient was given scripts on discharge for lactulose, Xifaxin and Bumex/aldactone. GI also recommended to stop carvedilol for now due to hypotension. In regards to patient's chronic respiratory failure with hypoxia, patient reports that her oxygen concentrator was not working when she was admitted. Care coordination contacted patient's father he lives with the patient and he was able to confirm the patient's oxygen concentrator is functioning at home. She was discharged on her baseline 3 L nasal cannula. On admission, TSH >24. Patient did report compliance with her Synthroid. Increased Synthroid to 150mcg and encouraged repeat TSH in 6 weeks. Patient needs to establish with a new PCP. On day of discharge, patient ambulating independently, abdominal distension improved. Patient had documented bowel movement on day of discharge. Patient remains high-risk for readmission due to compliance issues. Should patient re-present to the ER, may consider transfer to [facility] for better continuity of care. Patient discharged home in stable condition. Status at Discharge Functional status at discharge: independent ambulation Overall status at discharge: patient is progressing back to baseline Time Spent with Patient Time attestation: Total time spent providing and/or coordinating discharge services: Time spent: Greater than 30 minutes Exam Narrative: General: NAD Eyes: EOMI ENT: neck supple Cardiovascular: Regular rate and rhythm Respiratory: CTA bilaterally, respirations even and unlabored on 3L NC Gastrointestinal: Soft, non tender Genitourinary: mild distention, nontender, umbilical hernia reducible with visible ascites Musculoskeletal: No edema Skin: warm, dry Neuro: Alert. Psych: Mood appropriate DS: Data Data Completed and Pending Completed studies during hospitalization: ITS Impressions Chest X-Ray 01/04/25 19:20 IMPRESSION: 1. No acute cardiopulmonary findings given portable technique. Chest/Abdomen/Pelvis CTA 01/05/25 08:09 IMPRESSION: 1. Cirrhosis of the liver with portal venous hypertension. 2. Large volume of ascites. 3. Nondiagnostic evaluation of the pulmonary arteries. Chest CTA 01/05/25 08:31 IMPRESSION: 1. Negative for pulmonary embolism. No acute process in the visualized chest. Incidental findings above Paracentesis Ultrasound 01/05/25 15:12 IMPRESSION: 1. Successful ultrasound-guided paracentesis yielding 6000 mL of dark fidencio-colored fluid. Abdomen X-Ray 01/09/25 17:06 Impression: 1. No acute abnormality. Paracentesis Ultrasound 01/10/25 12:38 IMPRESSION: 1. Successful ultrasound-guided paracentesis yielding 5200 mL of fidencio-colored fluid. Abdomen X-Ray 01/12/25 15:33 IMPRESSION: Constipation. Paracentesis Ultrasound 01/13/25 15:59 IMPRESSION: 1. Successful ultrasound-guided paracentesis yielding 3300 mL of dark fidencio-colored fluid. Labs on day of discharge: Labs from last 24 hours 01/14/25 04:43 WBC 5.1 RBC 2.38 L Hgb 7.7 L Hct 24.1 L MCV 101.3 H MCH 32.4 MCHC 32.0 RDW 18.6 H Plt Count 65 L MPV 10.6 H Immature Gran % (Auto) 0.6 H Neut % (Auto) 56.3 Lymph % (Auto) 16.2 L [place] % (Auto) 22.7 H Eos % (Auto) 3.0 Baso % (Auto) 1.2 Lymph # (Auto) 0.82 L [place] # (Auto) 1.2 H Eos # (Auto) 0.2 Baso # (Auto) 0.1 Abs Immat Gran (auto) 0.03 Absolute Neuts (auto) 2.9 Absolute Nucleated RBC 0.000 Band Neutrophils % Not Reportable Nucleated RBC % 0.0 Platelet Estimate Decreased Hypochromasia 1+ Anisocytosis 1+ Ovalocytes 1+ [place] Cells 1+ Schistocytes Not Reportable Sodium 128 L Potassium 3.5 Chloride 100 Carbon Dioxide 22 Anion Gap 6 BUN 14 Creatinine 0.88 Estim Creat Clear Calc 75 Estimated GFR > 60 Glucose 95 Calcium 8.0 L Total Bilirubin 2.8 H AST 24 ALT 11 Alkaline Phosphatase 70 Total Protein 5.2 L Albumin 2.8 L Preliminary micro results at discharge 01/10/25 10:24 Anaerobic Culture Extend Incubation - Preliminary Peritoneal Fluid Sterile Body Fluid Culture - Preliminary Discharge Plan Discharge Attending physician on discharge: Shanice Monge Consulting providers: Juli Loya; Veronica Castaneda Discharging Clinician: Veronica Castaneda Anticipated Discharge Date/Time: 01/14/25 11:33 Patient Disposition: Home Activity: as tolerated Diet: regular and low sodium Discharge Instructions: You will need to call your 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 They can help you set up to have fluid drawn off your abdomen as needed as an outpatient. Take all medications as prescribed. Please note changes to your diuretics and lactulose. Please note your carvedilol has been stopped due to low blood pressures. Your thyroid medication has been increased. Please have your thyroid labs rechecked in 6 weeks with your primary care provider. Follow-up with your primary care provider in one week. Return to the emergency department if you develop chest pain, shortness of breath, persistent fever >100.4, confusion, loss of consciousness. Patient Instructions: Antibiotic Form Patient Language: Canadian Stand Alone Forms: General Discharge Information Follow-up/Referrals: Sue,MD Caio [Primary Care Provider, Unknown] Referral Note: follow-up in 5-7 days Uziel Lloyd MD [Physician, Gastroenterology] Discharge Medications: New spironolactone [Aldactone] 100 mg tablet 100 mg PO DAILY 30 Days Qty: 30 0RF oxycodone 5 mg tablet 5 mg PO Q6H PRN (Reason: pain) Qty: 12 0RF levothyroxine [Synthroid] 150 mcg tablet 150 mcg PO DAILY Qty: 30 0RF Continued docusate sodium 100 mg Capsule 100 mg PO BID PRN (Reason: Constipation) 90 Days Qty: 90 0RF folic acid 1 mg Tablet 1 mg PO DAILY 90 Days Qty: 90 0RF pantoprazole 40 mg Tablet,Delayed Release (Dr/Ec) 40 mg PO Q12HR 90 Days Qty: 180 0RF cholecalciferol (vitamin D3) 25 mcg (1,000 unit) Tablet 25 mcg PO DAILY 90 Days Qty: 90 0RF potassium chloride 10 mEq capsule, extended release 20 meq PO DAILY 90 Days Qty: 180 0RF Xifaxan 550 mg Tablet 550 mg PO BID 90 Days Qty: 180 0RF Changed bumetanide 1 mg Tablet 2 mg PO BID 90 Days Qty: 180 0RF lactulose 10 gram/15 mL Solution 30 g PO Q6H 30 Days Qty: 3600 0RF Patient Comments: did not receive a script but was on her dc list Discontinued carvedilol 3.125 mg tablet 3.125 mg PO BID Rx Instructions: must administer with a meal/food levothyroxine 125 mcg Tablet 125 mcg PO DAILY@0630 90 Days Qty: 90 0RF linezolid 600 mg Tablet 600 mg PO Q12HR Qty: 11 0RF Patient Comments: did not receive script at dc but it was on her dc medication list Other Ambulatory Orders: Thyroid Stimulating Hormone (Routine) Timeframe: 6 Weeks Location: Determined by Patient Ordered By: Veronica Castaneda Thyroid Stimulating Hormone (Routine) Timeframe: 6 Weeks Location: Determined by Patient Ordered By: Veronica Castaneda Date of admission: 01/08/25 11:39 Primary Care Provider: Sue,Caio Admitting Provider: Mariana Lamb Attending physician on admission: Mariana Lamb Condition: Stable
[2025-01-14] MEDS: LACTULOSE 20 GM/30 ML UDC 30 GM PO (12:50)
== END 2025-01-14 16:00 | disposition home or self-care (01) ==
LOC: ANHED 23:52 → ANH2MED 01-05 03:40
PROVIDERS: Internal Medicine Gastroenterology; Nurse Practitioner Acute Care; Admitting Provider General Practice; Emergency Provider Physician Assistant; PCP Internal Medicine Gastroenterology; Visit Provider Physician Assistant
DX: K74.60 Unspecified cirrhosis of liver (principal); R18.8 Other ascites; K75.81 Nonalcoholic steatohepatitis (NASH); J96.21 Acute and chronic respiratory failure with hypoxia; K72.90 Hepatic failure, unspecified without coma; N17.9 Acute kidney failure, unspecified; I95.9 Hypotension, unspecified; E03.9 Hypothyroidism, unspecified; E87.6 Hypokalemia; R07.89 Other chest pain; M54.89 Other dorsalgia; D69.6 Thrombocytopenia, unspecified; K42.9 Umbilical hernia without obstruction or gangrene; D64.89 Other specified anemias; F10.90 Alcohol use, unspecified, uncomplicated; Z99.81 Dependence on supplemental oxygen; Z87.891 Personal history of nicotine dependence; Z91.148 Patient's other noncompliance with medication regimen for other reason
CPT/HCPCS: 36415; 49083; 71045; 71275; 74018; 74177; 80048; 80053; 80076; 81001; 82570; 83605; 83690; 83735; 84133; 84300; 84439; 84443; 84484; 84540; 85025; 85027; 85055; 85380; 85610; 85730; 87086; 87186; 87205; 89051; 93005; 94640; 96374; 96375; 99285; A9270; J0696; J1644; J1939; J2270; J2405; P9047; Q9967

== ENCOUNTER 2025-01-27 11:35 | Inpatient (IN) | payer BC, MEDICAID, SELFPAY ==
[2025-01-27] VITALS (7 sets, daily range): BP systolic 98–121; BP diastolic 53–84; PULSE 74–85; RESP 14–20; TEMP 36.5–36.7; O2SAT 97–99; BMI 36.8
--- NOTE | ~2025-01-27 | US_ITS ---
EXAMINATION: US venous doppler LE RT, 01/28/2025 9:20 CDT HISTORY: EDEMA Comparison: None Technique: Nguyen-scale and color Doppler images were attempted of the lower saphenofemoral junction, common femoral vein,superficial femoral vein, proximal deep femoral vein, proximal deep femoral vein, popliteal vein and posterior tibial veins. Findings: Deep Venous System:Normal flow, augmentation and compressibility. No echogenic thrombus identified. The contralateral saphenofemoral junction appears unremarkable. Superficial Venous SystemNo superficial thrombophlebitis. Soft tissues: Soft tissues are unremarkable. Impression: Negative for DVT. Reviewed, dictated and finalized at location P. Impression: Negative for DVT.
--- NOTE | ~2025-01-27 | US_ITS ---
EXAMINATION: US paracentesis abd w/image DATE: 01/27/2025 15:13 INDICATION: Ascites. TECHNIQUE: The procedure and its risks and benefits were discussed with the patient. Potential risks discussed included bleeding and infection. The skin was prepped and draped in sterile fashion. 1% lidocaine was used for local anesthesia. Under ultrasound guidance, a 5 Fr catheter with trochar was advanced into the ascites in the left lower quadrant. Fluid was aspirated into vacuum bottles. The catheter was removed, and a dressing was applied. There were no immediate complications. FINDINGS: Ultrasound images demonstrate ascites and the catheter within the fluid. IMPRESSION: 1. Successful ultrasound-guided paracentesis yielding 6000 mL of clear straw- colored fluid. Reviewed, dictated and finalized at location A. IMPRESSION: 1. Successful ultrasound-guided paracentesis yielding 6000 mL of clear straw-c olored fluid.
--- NOTE | ~2025-01-27 | XR_ITS ---
Examination: XR chest 1V portable Clinical History: SOB Comparison: Chest x-ray 01/04/2025 Technique: Portable AP Findings: Heart size normal. Minimally increased interstitial markings. No acute bony abnormality. IMPRESSION: 1. Suspect mild interstitial pulmonary edema and/or pneumonitis. Reviewed, dictated and finalized at location R.
--- NOTE | ~2025-01-27 | US_ITS ---
EXAMINATION: US paracentesis abd w/image DATE: 01/31/2025 11:22 INDICATION: Ascites. TECHNIQUE: The procedure and its risks and benefits were discussed with the patient. Potential risks discussed included bleeding and infection. The skin was prepped and draped in sterile fashion. 1% lidocaine was used for local anesthesia. Under ultrasound guidance, a 5 Fr catheter with trochar was advanced into the ascites in the left lower quadrant. Fluid was aspirated into vacuum bottles. The catheter was removed, and a dressing was applied. There were no immediate complications. FINDINGS: Ultrasound images demonstrate ascites and the catheter within the fluid. IMPRESSION: 1. Successful ultrasound-guided paracentesis yielding 6200 mL of fidencio-colored fluid. Reviewed, dictated and finalized at location A. 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
--- NOTE | 2025-01-27 11:42 | ECG_ITS ---
Test Date: 2025-01-27 11:44:13 Measurements Intervals [place] Rate: 81 P: 30 KS: 196 QRS: -48 QRSD: 120 T: 48 QT: 413 QTc: 482 Interpretive Statements SINUS RHYTHM LEFT ANTERIOR FASCICULAR BLOCK ABNORMAL ECG Compared to ECG 01/12/2025 10:16:54 NO SIGNIFICANT CHANGE Electronically Signed On 01-27-2025 11:50:13 CDT by Glen Woodruff D.O.
[2025-01-27] MEDS: ONDANSETRON INJ 4 MG/2 ML VIAL (12:04)
[2025-01-27 12:05] LABS: Hematocrit 31.4 % (37.0-47.0); Hemoglobin 10.0 g/dL (12.0-15.0); Immature Granulocyte Percent A 0.2 % (0-0.5); Lymphocytes Absolute Auto 0.91 K/mm3 (0.9-3.2); Mean Corpuscular HGB Conc 31.8 g/dl (32-36); Mean Corpuscular Hemoglobin 31.5 pg (26-34); Mean Corpuscular Volume 99.1 fl (80-100); Nucleated Red Blood Cells Absolute Auto 0.000 K/mm3 (0.0-0.012); Nucleated Red Blood Cells Perc 0.0 % (0.0-0.2); Platelet Count Result 113 k/mm3 (150-375); Red Blood Count 3.17 M/mm3 (4.2-5.4); White Blood Count 5.2 K/mm3 (4.5-10.0)
[2025-01-27 12:23] LABS: INR 1.4; Prothrombin Time 16.5 Seconds (11.1-14.7)
[2025-01-27 12:24] LABS: Partial Thromboplastin Time 37.6 Seconds (22.3-36.8)
[2025-01-27 12:27] LABS: Alanine Aminotransferase 17 U/L (6-35); Albumin Level 3.3 g/dL (3.5-5.1); Alkaline Phosphatase 170 U/L (38-126); Anion Gap 7 mmol/L (4-12); Aspartate Amino Transferase 38 U/L (14-36); Bilirubin,Total 3.3 mg/dL (0.2-1.3); Blood Urea Nitrogen 16 mg/dL (7-17); Calcium 8.5 mg/dL (8.4-10.2); Carbon Dioxide 20 mmol/L (22-30); Chloride 102 mmol/L (98-107); Estimated CRCL calculation 87 ml/min; Estimated Glomerular Filt Rate > 60; Glucose 94 mg/dL (65-110); Lipase 139 U/L (23-300); Potassium 4.0 mmol/L (3.4-5.0); Sodium 129 mmol/L (137-145); Total Protein 6.6 g/dL (6.3-8.2)
--- NOTE | 2025-01-27 12:31 | ED_ITS ---
HPI - Abdominal Pain General Chief Complaint: Abdominal Pain Stated Complaint: abd pain Time Seen by Provider: 01/27/25 12:30 Source: patient and EMS Mode of arrival: EMS History of Present Illness HPI narrative: 54 years old white female history of liver cirrhosis with ascites came to the ED today by ambulance from home requesting to drain her abdomen because been having abdominal pain. 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 Patient is telling me that she does to abdominal centesis once a week. She denies any fever, chills, nausea vomiting, diarrhea, constipation. History of hypothyroidism, Jaspreet's disease, cholecystectomy and hysterectomy Related Data Allergies Allergy/AdvReac Type Severity Reaction Status Date / Time amoxicillin Allergy Hives Verified 01/27/25 11:43 latex Allergy Rash Verified 01/27/25 11:43 Penicillins Allergy Hives Verified 01/27/25 11:43 hydromorphone (From Dilaudid) AdvReac Itching Verified 01/27/25 11:43 Review of Systems 2 Review of Systems: All systems reviewed & are unremarkable except as noted in HPI and below PMFSH Past Medical History Medical History Otitis media when 10 yrs old Esophageal varices with bleeding Pulmonary edema Hypothyroidism SBP (spontaneous bacterial peritonitis) TAB positive Colon cancer screening Portal hypertension Thrombocytopenia Elevated liver enzymes Alcohol use Decompensation of cirrhosis of liver Nicotine dependence, cigarettes, with other nicotine-induced disorders 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 She has 1 child at the daughter and she states that the daughter had recently moved. She also states she did have her primary however primary recently left. She does wish to be a full code. All code status is were reviewed with the patient including DNR, DNI current pressors, BiPAP and CPAP. Patient wishes to be a full code at that time. She also likes her friend Franko to be her surrogate. Smoking packs per day: 0.5 Smoking cigarettes per day: 10.0 Years smoked: 5 Smoking pack-years: 2.50 Smoking status: Former smoker Tobacco type: cigarettes Smoking end date: 11/26/23 Alcohol intake: former Drinks per week: 4 Substance use: never Substance use type: does not use Do You Feel Safe in your Home?: Yes Lack of Transportation: No Lack of Food: Never True Current Housing: I Have Housing Concerned About Future Housing: No Difficulty Paying Gas/Electric Bills: No Difficulty Paying for Meds: No Currently Unemployed: No Education: Associate Degree Difficulty w/ Childcare or Family Care: No Living arrangements: with family Occupation/Education: other Additional occupation/education comments: disability Gender identity (if verbalized by the patient): Female Sexual Orientation (if Verbalized by the Patient): Straight or Heterosexual Spiritual care concerns: No Agree to blood products: Yes Exam 2 Narrative: General appearance: Well-developed, well-nourished Skin: Normal color 3+ edema right lower extremities, 2+ edema left lower extremity. INR Head: Normocephalic, nontraumatic Eyes: Clear conjunctiva ENT: Oropharynx normal, ears normal, nose normal Neck: Supple, nontender Chest and respiratory: Airway patent, no respiratory distress, no accessory muscle use Heart: Regular rate/rhythm Abdomen: Diffuse tenderness, large tense ascites Vascular: Normal peripheral pulses, normal capillary refill. Musculoskeletal: Normal range of motion, nontender back Neurologic: Alert and oriented ?3, TRIMMER SORTER is normal as tested, no gross motor deficit Course Consultations Consultation #1: Dr. Lopez Admit hospitalist observation Date: 01/27/25 Consultation #2: DR RAMIREZ, AIRFIELD MANAGER AT [facility] RECOMMENDS TO CONTINUE DIURETICS, HOLD DIETS OLD, DRAINED ABDOMEN, PATIENT IS SCHEDULED TO FOLLOW UP WITH HIM FEBRUARY 2025. Date: 01/27/25 Time: 13:31 Vital Signs Vital signs: Vital Signs Temperature 36.7 C 01/27/25 11:36 Pulse Rate 85 01/27/25 11:36 Respiratory Rate 14 01/27/25 11:36 Pulse Oximetry 97 01/27/25 11:36 Oxygen Delivery Nasal Cannula 01/27/25 11:36 Oxygen Flow Rate 3 01/27/25 11:36 Temperature 36.7 C 01/27/25 11:36 Pulse Rate 85 01/27/25 11:36 Respiratory Rate 14 01/27/25 11:36 Blood Pressure 119/69 01/27/25 13:24 Pulse Oximetry 97 01/27/25 11:36 Oxygen Delivery Nasal Cannula 01/27/25 11:36 Oxygen Flow Rate 3 01/27/25 11:36 MDM - Abdominal Pain MDM Narrative Medical decision making narrative: History of liver cirrhosis with ascites, came to the ED to drain her ascites Vital signs STABLE PHYSICAL EXAMINATION SHOWING LARGE TENSE ASCITES DIFFERENTIAL DIAGNOSIS INCLUDE LIVER CIRRHOSIS WITH ASCITES, IN NEED ABDOMINAL CENTESIS BLOOD WORKUP TODAY SHOWED NO SIGNIFICANT ABNORMALITIES COMPARED TO THE PREVIOUS READING. ADMIT TO HOSPITALIST, DISCUSSED WITH DR. LOPEZ AND PATIENT AIRFIELD MANAGER AT [facility] Differential Diagnosis Differential diagnosis: Likely abdominal pain, constipation, diverticulitis and pancreatitis Medical Records Attestation: I reviewed the patient's medical records. Lab Data Attestation: I reviewed the patient's lab results. 01/27/25 11:58 01/27/25 11:58 Labs: Lab Results 01/27/25 Range/Units 11:58 WBC 5.2 (4.5-10.0) K/mm3 RBC 3.17 L (4.2-5.4) M/mm3 Hgb 10.0 L (12.0-15.0) g/dL Hct 31.4 L (37.0-47.0) % MCV 99.1 (80-100) fl MCH 31.5 (26-34) pg MCHC 31.8 L (32-36) g/dl RDW 17.6 H (11.5-14.5) % Plt Count 113 L D (150-375) k/mm3 MPV 10.8 H (7.4-10.4) fl Immature Gran % (Auto) 0.2 (0-0.5) % Neut % (Auto) 61.3 (45.5-73.1) % Lymph % (Auto) 17.4 L (18.3-44.2) % [place] % (Auto) 14.2 H (2.6-8.5) % Eos % (Auto) 5.4 H (0-4.4) % Baso % (Auto) 1.5 H (0.2-1.2) % Lymph # (Auto) 0.91 (0.9-3.2) K/mm3 [place] # (Auto) 0.7 H (0.1-0.6) K/mm3 Eos # (Auto) 0.3 (0-0.3) K/mm3 Baso # (Auto) 0.1 (0.0-0.1) K/mm3 Abs Immat Gran (auto) 0.01 (0.00-0.031) K/mm3 Absolute Neuts (auto) 3.2 (1.3-6.7) K/mm3 Absolute Nucleated RBC 0.000 (0.0-0.012) K/mm3 Nucleated RBC % 0.0 (0.0-0.2) % PT 16.5 H (11.1-14.7) Seconds INR 1.4 APTT 37.6 H (22.3-36.8) Seconds Sodium 129 L (137-145) mmol/L Potassium 4.0 (3.4-5.0) mmol/L Chloride 102 (98-107) mmol/L Carbon Dioxide 20 L (22-30) mmol/L Anion Gap 7 (4-12) mmol/L BUN 16 (7-17) mg/dL Creatinine 0.81 (0.7-1.0) mg/dL Estim Creat Clear Calc 87 ml/min Estimated GFR > 60 (59 - ) Glucose 94 (65-110) mg/dL Calcium 8.5 (8.4-10.2) mg/dL Total Bilirubin 3.3 H (0.2-1.3) mg/dL AST 38 H (14-36) U/L ALT 17 (6-35) U/L Alkaline Phosphatase 170 H (38-126) U/L NT-Pro-B Natriuret Pep 76 (19.9-100) pg/mL Total Protein 6.6 (6.3-8.2) g/dL Albumin 3.3 L (3.5-5.1) g/dL Lipase 139 (23-300) U/L Imaging Data Radiologist's impression: ITS Impressions Chest X-Ray 01/27/25 13:00 IMPRESSION: 1. Suspect mild interstitial pulmonary edema and/or pneumonitis. Critical Care Time Critical Care Time Critical Care Time: No Discharge Plan Discharge Clinical Impression: Cirrhosis of liver with ascites Clinical Impression: (Ruled Out): UTI (urinary tract infection) Patient Disposition: Still a Patient Condition: Stable Patient Language: Malian Prescriptions: No Action docusate sodium 100 mg Capsule 100 mg PO BID PRN (Reason: Constipation) 90 Days Qty: 90 0RF folic acid 1 mg Tablet 1 mg PO DAILY 90 Days Qty: 90 0RF pantoprazole 40 mg Tablet,Delayed Release (Dr/Ec) 40 mg PO Q12HR 90 Days Qty: 180 0RF cholecalciferol (vitamin D3) 25 mcg (1,000 unit) Tablet 25 mcg PO DAILY 90 Days Qty: 90 0RF potassium chloride 10 mEq capsule, extended release 20 meq PO DAILY 90 Days Qty: 180 0RF spironolactone [Aldactone] 100 mg tablet 100 mg PO DAILY 30 Days Qty: 30 0RF oxycodone 5 mg tablet 5 mg PO Q6H PRN (Reason: pain) Qty: 12 0RF levothyroxine [Synthroid] 150 mcg tablet 150 mcg PO DAILY Qty: 30 0RF bumetanide 1 mg Tablet 2 mg PO BID 90 Days Qty: 180 0RF lactulose 10 gram/15 mL Solution 30 g PO Q6H 30 Days Qty: 3600 0RF Patient Comments: did not receive a script but was on her dc list Xifaxan 550 mg Tablet 550 mg PO BID 90 Days Qty: 180 0RF Follow-up/Referrals: Sue,MD Caio [Primary Care Provider, Unknown]
[2025-01-27 13:29] LABS: NT Pro B Type Natriuretic Pept 76 pg/mL (19.9-100)
--- OUTSIDE RECORDS SUMMARY | 2025-01-27 13:53 | XMS_ITS | Encounter Summary ---
Author Organization [facility] Address [address] [place] [address] Care Team Providers Care Distillery Miller Helper Name Role Phone Jhonny, Tri Fern FONSECA Primary Care Provider [phone] Encounter Details Date Type Department Care Team (Latest Contact Info) Description 11/23/2008 Outpatient Historical [facility] Prasanth Shukla MD [address] [address] Calculus of Kidney Social History Tobacco Use Types Packs/Day Years Used Date Smoking Tobacco: Never Assessed Comments Unknown Sex and Gender Information Value Date Recorded Sex Assigned at Not on file Legal Sex Female 6:00 PM ALGEBRA TEACHER Gender Identity Not on file Sexual Orientation [...] AM CDT Narrative 11/23/2008 2:29 PM CDT [facility] [address] [place], [place] [address] Admit Date: 11/23/2008 VALE DALE Sex: F Admit Prov: PRASANTH SHUKLA Date: 1970 Primary Care Prov: PCP, UNKNOWN; LUCRETIA CMRN: [id number] EM Burris N: [id number] Room: [facility] Ordering Prov: N/A Accession Number: [id number] Interpretation Exam: ABDOMEN AP (KUB) . Nov [...] Procedure Note Dennys Asencio MD - 11/23/2008 [facility] [address] [place], [place] [address] Admit Date: 11/23/2008 VALE DALE Sex: F Admit Prov: PRASANTH SHUKLA Date:1970 Primary Care Prov: PCP, UNKNOWN; LUCRETIA KELSIN: [id number] EM Burris N: [id number] Room: [facility] Ordering Prov: N/A Interpretation Exam: [...] COVID-19 05/20/2024 05/20/2024 05/20/2024 12:4 3 PM ALGEBRA TEACHER documented as of this encounter Care Teams Distillery Miller Helper Relationship Specialty Start Date End Date Tri Barry DO PCP - General Family Practice 02/09/21 12/24/22 documented as of this encounter
--- OUTSIDE RECORDS SUMMARY | 2025-01-27 13:53 | XMS_ITS | Encounter Summary ---
Author Organization [facility] Health Address [address] [place] [address] Care Team Providers Care Dining Room Hostess Name Role Phone Jazmyne Jordan MD Primary Care Provider [phone] Berta Marquez RN Unavailable [phone] Arcelia Whitney AUTO EMISSIONS TECHNICIAN-INPATIENT SERVICES RN Unavailable [phone] Adelaide Tse MD Primary Care Provider Unava ilable Encounter Details Date Type Department Care Team (Late st Contact Info) Description 02/10/2024 Telephone [facility] INTERNAL MED [address] [place] [id number] Trish Velarde MD [address] [place] [id number] Social History Tobacco Use Types Packs/Day Years [...] medical care, and heating? Somewhat hard 02/14/2024 [facility] [place] [facility] Occupat ional Health - Occupational Stress [...] place to sleep or slept in a nursing home (including now)? No 01/08/2024 Housing Stability Vital [...] were you homeless or living in a nursing home (including now)? No 02/14/2024 Comments No Sex and Gender Information Value Date Recorded Sex Assigned at Not on file Legal Sex Female 5:09 AM BILLBOARD POSTER Gender Identity Not on file Sexual Orientation [...] Velarde MD - 02/10/2024 5:03 PM [facility]ST [facility] Transfer Call Documentation Date:02/10/2024 Time:5:04 PM Patient: Nasreen Orozco : 1970 Referring Facility Name:[facility] Reason for Transfer: Autoimmune hepatitis with cirrhosis. Has pancytopenia. Brief Description (including applicable labs, imaging, consultations): 53yo female with known h/o hypothyroidism, liver cirrhosis and ascites, h/o EtOH use, ?auto-immune heaptitis (only TAB positive), presented with decompensated liver cirrhosis. Her condition getting worse and needs once a week paracentesis. Needs to be transferred to [facility] forlong-term solution for her hepatic failure such as TIPS. [facility] liver team following pt. [facility] hepatology accepted pt as an consult. Patient needs on arrival to [facility]: Medicine admissions resident (ask whiteprinting machine operator for Medicine Admission) to be notified of arrival. Consultation to (N/A if blank): [facility] I have accepted this patient for transfer to [facility]. If patient awaiting bed for >24hours, an update on patient's clinical condition is requested. Signed:Trish Velarde MD 02/10/2024 BOARD POSTER documented in this encounter Plan of Treatment Upcoming Encounters Date Type Department Care Team (Late st Contact Info) Description 02/03/2025 12:40 PM BILLBOARD POSTER Appointment [facility] CAT SCAN [address] [place] [phone] Caio Rogers MD [address] [place] [phone] 03/28/2025 3:00 PM BILLBOARD POSTER Office Visit [facility] - Pulmonology [address] [place] [address], [place] [phone] Jake Grijalva MD [address] [place] [address] DIV OF [facility] [place] [address] 05/31/2025 10:30 AM BILLBOARD POSTER Office Visit [facility] - GI [address] [place] [address], [place] [phone] Caio Rogers MD [address] [place] [phone] documented as of this encounter Visit Diagnoses Not on filedocumented in this encounter Additional Health Concerns Infection Onset Date Last Indicated Resolved Time COVID-19 Under Investigation 03/29/2024 03/29/2024 03/30/2024 12:11 AM BILLBOARD POSTER VRE 08/26/2024 08/26/2024 09/20/2024 10:1 2 AM CDT VRE Hx Comment:Urine culture - 08/26/24 08/26/2024 09/20/2024 ESBL GNR 12/13/2024 12/13/2024 MDRO 12/13/2024 12/13/2024 documented as of this encounter Care Teams Dining Room Hostess Relationship Specialty Start Date End Date Jazmyne Jordan MD [address] [place] [address] PCP - General Family Medicine 05/17/24 10/06/24 [place] [address] [address] PCP - General 10/07/24 Berta Marquez RN Mill Control OperatorGas Combustion Engineer 05/27/24 06/23/24 Arcelia Whitney APRN-INPATIENT SERVICES RN [address] [place] [phone] Nurse Practitioner Family Medicine 06/21/24 documented as of this encounter
--- OUTSIDE RECORDS SUMMARY | 2025-01-27 13:53 | XMS_ITS | Encounter Summary ---
Author Organization [facility] Address [address] [place] [address] Care Team Providers Care Fire Investigation Manager Name Role Phone Jhonny, Tri Shirley DO Primary Care Provider [phone] Encounter Details Date Type Department Care Team (Late st Contact Info) Description 01/06/2004 Outpatient Historical [facility] Carly Armijo MD NONTOX MULTINODUL GOITER (Primary Dx) Social History Tobacco Use Types Packs/Day Years Used Date Smoking Tobacco: Never Assessed Comments Unknown Sex and Gender Information Value Date Recorded Sex Assigned at Not on file Legal Sex Female 6:00 PM COMMERCIAL KITCHEN SERVICE TECHNICIAN Gender Identity Not on file Sexual Orientation [...] COVID-19 05/20/2024 05/20/2024 05/20/2024 12:4 3 PM COMMERCIAL KITCHEN SERVICE TECHNICIAN documented as of this encounter Care Teams Fire Investigation Manager Relationship Specialty Start Date End Date Tri Barry DO PCP - General Family Practice 02/09/21 12/24/22 documented as of this encounter
--- OUTSIDE RECORDS SUMMARY | 2025-01-27 13:53 | XMS_ITS | Encounter Summary ---
Author Organization [facility] Address [address] [place] [address] Care Team Providers Care Sash Clamp Operator Name Role Phone Jhonny, Tri Shirley DO Primary Care Provider [phone] Encounter Details Date Type Department Care Team (Late st Contact Info) Description 05/26/2006 Outpatient Historical [facility] Internal Medicine [address] [place] [address] Bret Trotter MD [address] [place] [phone] Social History Tobacco Use Types Packs/Day Years Used Date Smoking Tobacco: Never Assessed Comments Unknown Sex and Gender Information Value Date Recorded Sex Assigned at Not on file Legal Sex Female 6:00 PM CAMPAIGN ANALYST Gender Identity Not on file Sexual Orientation [...] COVID-19 05/20/2024 05/20/2024 05/20/2024 12:4 3 PM CAMPAIGN ANALYST documented as of this encounter Care Teams Sash Clamp Operator Relationship Specialty Start Date End Date Tri Barry DO PCP - General Family Practice 02/09/21 12/24/22 documented as of this encounter
--- OUTSIDE RECORDS SUMMARY | 2025-01-27 13:53 | XMS_ITS | Encounter Summary ---
Author Organization [facility] Address [address] [place] [address] Care Team Providers Care Patient Admitting Clerk Name Role Phone Jhonyn, Tri Shirley DO Primary Care Provider [phone] Encounter Details Date Type Department Care Team (Late st Contact Info) Description 11/11/2008 Outpatient Historical [facility] [address] [place] [address] Social History Tobacco Use Types Packs/Day Years Used Date Smoking Tobacco: Never Assessed Comments Unknown Sex and Gender Information Value Date Recorded Sex Assigned at Not on file Legal Sex Female 6:00 PM METAL SHAPING MACHINE OPERATOR Gender Identity Not on file Sexual Orientation [...] PM CDT Narrative 11/14/2008 7:[address] [facility] [address] [place], [place] [address] Admit Date: 11/11/2008 VALE DALE Sex: F Admit Prov: JAIMEE PATRICK Date: 1970 Primary Care Prov: PCP, UNKNOWN; LUCRETIA CMRN: [id number] EM Burris N: [id number] Room: [facility] Ordering Prov: N/A Accession Number: [id number] Interpretation CT ABDOMEN AND PELVIS WITH AND [...] Procedure Note Tom Lau MD - 11/14/2008 [facility] [address] [place], [place] [address] Admit Date: 11/11/2008 VALE DALE Sex: F Admit Prov: JAIMEE PATRICK Date:1970 Primary Care Prov: PCP, UNKNOWN; LUCRETIA, CMRN: [id number] EM Burris SSN: [id number] Room: [facility] Ordering Prov: N/A Interpretation CT [...] COVID-19 05/20/2024 05/20/2024 05/20/2024 12:4 3 PM METAL SHAPING MACHINE OPERATOR documented as of this encounter Care Teams Patient Admitting Clerk Relationship Specialty Start Date End Date Tri Barry DO PCP - General Family Practice 02/09/21 12/24/22 documented as of this encounter
--- OUTSIDE RECORDS SUMMARY | 2025-01-27 13:53 | XMS_ITS | Encounter Summary ---
Author Organization [facility] Address [address] [place] [address] Care Team Providers Care Edi Programmer Analyst Name Role Phone Jhonny, Tritrinidad Shirley DO Primary Care Provider Encounter Details Date Type Department Care Team (Latest Contact Info) Description 12/19/2003 Outpatient Historical [facility] Carly Arreguin MD BENIGN NEOPLASM THYROID (Primary Dx) Social History Tobacco Use Types Packs/Day Years Used Date Smoking Tobacco: Never Assessed Comments Unknown Sex and Gender Information Value Date Recorded Sex Assigned at Not on file Legal Sex Female 6:00 PM WAVE SOLDER OFFBEARER Gender Identity Not on file Sexual Orientation [...] COVID-19 05/20/2024 05/20/2024 05/20/2024 12:4 3 PM WAVE SOLDER OFFBEARER documented as of this encounter Care Teams Edi Programmer Analyst Relationship Specialty Start Date End Date Tri Barry DO PCP - General Family Practice 02/09/21 12/24/22 documented as of this encounter
--- OUTSIDE RECORDS SUMMARY | 2025-01-27 13:53 | XMS_ITS | Clinical Summary ---
Author Organization [facility] Health Address [address] [place] [address] Care Team Providers Care Lawn Care Professional Name Role Phone Unavailable Primary Care Provider [...]
--- OUTSIDE RECORDS SUMMARY | 2025-01-27 13:53 | XMS_ITS | Encounter Summary ---
Author Organization [facility] Address [address] [place] [address] Care Team Providers Care Sports Centre Manager Name Role Phone Unavailable Primary Care Provider Unavailabl e Reason for Visit * Reason Onset Date Comments HEPATORENAL 11/11/2023 SPOKE Daina /[email or web address] Encounter Details Date Type Department Care Team (Late st Contact Info) Description 11/11/2023 Telephone [facility] Admitting [address] [place] [address] [place] [address] [place] [address] HEPATORENAL (SPOKE Daina /[email or web address]@ [email or web address]. 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
--- OUTSIDE RECORDS SUMMARY | 2025-01-27 13:53 | XMS_ITS | Encounter Summary ---
Author Organization [facility] Address [address] [place] [address] Care Team Providers Care Blade Sharpener Name Role Phone Unavailable Primary Care Provider Unavailabl e Reason for Visit * Reason Onset Date Comments Liver failure - alcohol abuse 10/06/2023 [facility] CHAT @ DR LUIS E MEDEROS Encounter Details Date Type Department Care Team (Late st Contact Info) Description 10/06/2023 Telephone [facility] Admitting [address] [place] [address] Chantale Mello PA-C [address] [address] Liver failure - alcohol abuse [...] on file Legal Sex Female 6:00 PM RN PICU Gender Identity Not on file Sexual Orientation Not on file 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
--- OUTSIDE RECORDS SUMMARY | 2025-01-27 13:53 | XMS_ITS | Encounter Summary ---
Author Organization [facility] Address [address] [place] [address] Care Team Providers Care Python Web Developer Name Role Phone Indu Bryant DO Primary Care Provider [phone] Jazmyne Jordan MD Primary Care Provider [phone] Berta Marquez RN Unavailable [phone] Arcelia Whitney ROBOTIC TECHNICIAN-MANAGER PATHOLOGY Unavailable [phone]- [phone] Adelaide Tse MD Primary Care Provider Unava ilable Reason for Visit * Reason Onset Date Comments Hospital Admission 08/18/2023 Encounter Details Date Type Department Care Team (Late st Contact Info) Description 08/18/2023 Telephone Transitional Care at [place] [address] [place] [address] Horacio Levine MD [address] [address] Hospital Admission Social History Tobacco [...] housing, medical care, and heating? Hard 08/19/2023 [facility] [place] of Occupat ional Health - Occupational Stress [...] place to sleep or slept in a snf (including now)? No 08/18/2023 Comments No Sex and Gender Information Value Date Recorded Sex Assigned at Not on file Legal Sex Female 5:09 AM ELECTRIC MULE OPERATOR Gender Identity Not on file Sexual Orientation Not on file documented as of this encounter Functional Status * Functional and Cognitive Status Question Answer Date of Assessment Author Is person deaf or have phu us hearing difficulty? No 08/18/2023 5:00 PM CDT Elena Ramos, JAYESH Is person blind or have seri ous difficulty seeing? No 08/18/2023 5:00 PM PRADEEPElena Espana RN Does person have serious difficulty walking/climbing stairs? No 08/18/2023 5:00 PM Elena Barr RN Does person have difficulty dressing/bathing? No 08/18/2023 5:00 PM Elena Barr RN Does person have difficulty doing errands alone? No 08/18/2023 5:00 PM Elena Barr RN Does person have difficulty concentrating/remembering/making decisions? No 08/18/2023 5:00 PM Elena Barr RN * Question Answer Date of Assessment Author Q1: How often do you have a drink containing alcohol? Monthly or less 08/18/2023 4:00 PM Elena Barr RN Q2: How many drinks containing alcohol do you have on a typical day when you are drinking? 1 or 2 08/18/2023 4:00 PM Mariluz Barr sa, RN Q3: How often do you have six or more drinks on one occasion? Monthly 08/18/2023 4:00 PM Elena Barr RN * AUDIT-C Score Answer Date of Assessment Author 3 08/18/2023 4:00 PM Elena Barr RN * Is person deaf or have serious hearing difficulty? Answer Date of Assessment Author No 08/18/2023 5:00 PM Elena Barr RN * Is person blind or have serious difficulty seeing? Answer Date of Assessment Author No 08/18/2023 5:00 PM Elena Barr RN * Does person have serious difficulty [...] Entry Date Author No 08/18/2023 5:00 PM CDT Elena Ramos, JAYESH documented in this encounter Plan of Treatment Upcoming Encounters Date Type Department Care Team (Late st Contact Info) Description 02/03/2025 12:40 PM ELECTRIC MULE OPERATOR Appointment [facility] CAT SCAN [address] [place] [phone] Caio Rogers MD [address] [place] [phone] 03/28/2025 3:00 PM ELECTRIC MULE OPERATOR Office Visit [facility] - Pulmonology [address] [place] [address], [place] [phone] Jake Grijalva MD [address] [place] [address] OF [facility] [place] [address] 05/31/2025 10:30 AM ELECTRIC MULE OPERATOR Office Visit [facility] - GI [address] [place] [address], [place] [phone] Caio Rogers MD [address] [place] [phone] documented as of this encounter Visit Diagnoses Not on filedocumented in this encounter Additional Health Concerns Infection Onset Date Last Indicated Resolved Time COVID-19 Under Investigation 08/18/2023 08/18/2023 08/18/2023 2:46 PM CDT COVID-19 Under Investigation 01/11/2024 01/11/2024 01/11/2024 7:44 PM CDT COVID-19 Under Investigation 03/29/2024 03/29/2024 03/30/2024 12:11 AM ELECTRIC MULE OPERATOR VRE 08/26/2024 08/26/2024 09/20/2024 10:1 2 AM CDT VRE Hx Comment:Urine culture - 08/26/24 08/26/2024 09/20/2024 ESBL GNR 12/13/2024 12/13/2024 MDRO 12/13/2024 12/13/2024 documented as of this encounter Care Teams Python Web Developer Relationship Specialty Start Date End Date Indu Bryant DO [address] [facility] [address] [place] [phone] PCP - General Family Medicine 08/18/23 01/07/24 Jazmyne Jordan MD [address] [phone] PCP - General Family Medicine 05/17/24 10/06/24 [place] [address] [place] [address] PCP - General 10/07/24 Berta Marquez, RN Substation ManagerChief Telephone Operator 05/27/24 06/23/24 Arcelia Whitney, ROBOTIC TECHNICIAN-MANAGER PATHOLOGY [address] [place] [phone] Nurse Practitioner Family Medicine 06/21/24 documented as of this encounter
--- OUTSIDE RECORDS SUMMARY | 2025-01-27 13:53 | XMS_ITS | Encounter Summary ---
Author Organization [facility] Address [address] [place] [address] Care Team Providers Care Tile Trimmer Name Role Phone Jhonny, Tritrinidad Shirley DO Primary Care Provider [phone] Encounter Details Date Type Department Care Team (Latest Contact Info) Description 08/03/2004 Outpatient Historical HIS [facility] TAMERA Plascencia, Felicita Burris MD [address] [address] HYPOTHYROIDISM NOS (Primary Dx) Social History Tobacco Use Types Packs/Day Years Used Date Smoking Tobacco: Never Assessed Comments Unknown Sex and Gender Information Value Date Recorded Sex Assigned at Not on file Legal Sex Female 6:00 PM RUBBER GOODS ASSEMBLER Gender Identity Not on file Sexual Orientation [...] CHEMISTRY ORDERABLES Final Result Performing Organization Address City/[facility] Co de Phone Number INTERFACE SYSTEM Refer to clinic/hospital department * TSH (08/03/2004 2:16 PM CDT) TSH 3.50 0.27 - 4.20 uU/mL INTERFACE SYSTEM 08/03/2004 2:16 PM CDT Felicita Plascencia MD CHEMISTRY ORDERABLES Final Result Performing Organization Address City/[facility] de Phone Number INTERFACE SYSTEM Refer to clinic/hospital department * T4 FREE (08/03/2004 2:16 PM CDT) T4 FREE 1.2 0.9 - 1.7 ng/dL INTERFACE SYSTEM 08/03/2004 2:16 PM CDT Felicita Plascencia MD CHEMISTRY ORDERABLES Final Result Performing Organization Address [facility] Phone Number INTERFACE SYSTEM Refer to clinic/hospital [...] COVID-19 05/20/2024 05/20/2024 05/20/2024 12:4 3 PM RUBBER GOODS ASSEMBLER documented as of this encounter Care Teams Tile Trimmer Relationship Specialty Start Date End Date Tri Barry DO PCP - General Family Practice 02/09/21 12/24/22 documented as of this encounter
--- OUTSIDE RECORDS SUMMARY | 2025-01-27 13:53 | XMS_ITS | Clinical Summary ---
Author Organization [facility] Address [address] [facility] [place] [address] Care Team Providers Care Home Therapy Clinician Name Role Phone Unavailable Primary Care Provider [...] - 11/21/2024 11:59 PM CDT Hospital Encounter [facility] Emergency Medical Services [address] [address] Luis Sage MD Ambulance, [facility] Discharge Disposition: Intermediate Care Facility 11/20/2024 Travel 11/19/2024 4:26 PM CDT - 11/21/2024 5:40 PM CDT Hospital Encounter [facility] [address] [place] [address] Fifi Adler MD Caffrey, MD Raheel Cruz, [...] on file Legal Sex Female 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 Gender Identity Not on file Sexual Orientation Not on file 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 Not on file Not [...] (#1) 2024 Medical Devices Implanted Type Area Fibre Composite Technician Device Identifier Shelf Expiration Date Model / Serial / Lot Ligator Band 2 Super 7 [id number] - [id number] Implanted:Qty: 2 on 11/10/2023 by Montserrat Lyman MD at [facility] [id number] 11/29/2023 [id number] / / [id number] Procedures Procedure Name Priority Date/Time Associated Diagnosis [...] 4.0 - 9.8 K/uL 11/21/2024 2:10 AM [facility] RBC 2.44(L) 3.90 - 4.90 M/uL 11/21/2024 2:10 AM [facility] - [facility] HEMOGLOBIN 8.0(L) 11.8 - 14.8 g/dL 11/21/2024 2:10 AM [facility] HEMATOCRIT 24.3(L) 35.5 - 44.0 % 11/21/2024 2:10 AM CDT [facility] MCV 99.6(H) 82.0 - 99.0 fL 11/21/2024 2:10 AM [facility] MCH 32.8(H) 27.2 - 32.6 pg 11/21/2024 2:10 AM [facility] MCHC 32.9 31.5 - 35.5 g/dL 11/21/2024 2:10 AM [facility] RDW 16.8(H) 11.5 - 14.5 % 11/21/2024 2:10 AM [facility] RDW-STDEV 61.6(H) 37.1 - 48.7 fL 11/21/2024 2:10 AM [facility] PLATELETS 71(L) 140 - 350 K/uL 11/21/2024 2:10 AM [facility] Comment:Persistent abnormal result. MPV 10.5 9.3 - 12.4 fL 11/21/2024 2:10 AM [facility] NEUTROPHILS 55 % 11/21/2024 2:10 AM CDT [facility] LYMPHOCYTES 20 % 11/21/2024 2:10 AM [facility] MONOCYTES 22 % 11/21/2024 2:10 AM CDT [facility] EOSINOPHILS 2 % 11/21/2024 2:10 AM [facility] BASOPHILS 1 % 11/21/2024 2:10 AM [facility] IMMATURE GRANULOCYTES 0 % 11/21/2024 2:10 AM CDT [facility] - . [place] NEUTROPHIL ABSOLUTE 2.69 1.90 - 7.00 K/uL 11/21/2024 2:10 AM CDT [facility] - [facility] LYMPHOCYTE ABSOLUTE 0.96 0.70 - 4.50 K/uL 11/21/2024 2:10 AM CDT [facility] - [facility] MONOCYTE ABSOLUTE 1.07 0.10 - 1.30 K/uL 11/21/2024 2:10 AM CDT [facility] - [facility] EOSINOPHIL ABSOLUTE 0.10 0.00 - 0.70 K/uL 11/21/2024 2:10 AM CDT [facility] BASOPHILS ABSOLUTE 0.04 0.00 - 0.20 K/uL 11/21/2024 2:10 AM CDT [facility] - . [facility] IMMATURE GRANULOCYTES ABSOLUTE 0.01 0.00 - 0.03 K/uL 11/21/2024 2:10 AM CDT [facility] Blood Venipuncture / Unknown 11/21/2024 1:39 AM CDT 11/21/2024 1:50 AM CDT us Luis Sage MD HEMATOLOGY ORDERABLES Final Res ult [facility] SERVICES [facility]# [id number] [address] [place] [address] * (ABNORMAL) BASIC METABOLIC PANEL (11/21/2024 1:39 AM CDT) SODIUM 133(L) 136 - 145 mmol/L 11/21/2024 2:21 AM CDT [facility] POTASSIUM 4.0 3.5 - 5.0 mmol/L 11/21/2024 2:21 AM CDT [facility] CHLORIDE 102 98 - 107 mmol/L 11/21/2024 2:21 AM CDT [facility] CO2 23 22 - 29 mmol/L 11/21/2024 2:21 [facility] CALCIUM 8.3(L) 8.6 - 10.2 mg/dL 11/21/2024 2:21 AM [facility] BUN 27(H) 6 - 20 mg/dL 11/21/2024 2:21 AM [facility] CREATININE 1.02(H) 0.51 - 0.95 mg/dL 11/21/2024 2:21 AM [facility] GLUCOSE 88 74 - 99 mg/dL 11/21/2024 2:21 AM [facility] GFR >60 >=60 mL/min/1.7 3 sq meter 11/21/2024 2:21 AM [facility] Comment:eGFR calculated with 2020 CKD-EPI equation. Vegetarian diet, extremely high or low muscle mass, and may affect results. Cystatin C with Glomerular Filtration Rate is a suitable alternative for these patients. ANION GAP 8 8 - 16 mmol/L 11/21/2024 2:21 AM [facility] Blood Venipuncture / Unknown 11/21/2024 1:39 AM CDT 11/21/2024 1:49 AM CDT Luis Sage MD CHEMISTRY ORDERABLES Final Resu lt [facility]# [id number] [address] [place] [address] * ANAEROBIC/AEROBIC CULTURE W GRAM STAIN (11/20/2024 1:13 PM CDT) CULTURE No aerobic or anaerobic growth 11/25/2024 2:42 PM T [facility] GRAM STAIN No organisms observed 11/25/2024 2:42 PM [facility] GRAM STAIN 2+ (Few) Polymorphonuclear WBC 11/25/2024 2:42 PM T [facility] Body fluid ENTIRE SEROUS MEMBRANE OF PERITONEUM / Unknown Collection / Unknown 11/20/2024 1:13 PM CDT 11/20/2024 1:50 PM CDT Luis Sage MD MICROBIOLOGY - GENERAL ORDERABL ES Final Result [facility]ORATORY SERVICES - [facility] CLIA# [id number] [address] [place] [address] * CELL COUNT WITH DIFFERENTIAL, BODY FLUID (11/20/2024 1:13 PM CDT) APPEARANCE, BODY FLUID Clear 11/20/2024 3:51 PM CDT [facility] - [facility] COLOR, FLD Yellow 11/20/2024 3:51 PM CDT [facility] - [facility] TOTAL NUCLEATED CELLS, FLD (AUTO) 152 No Ref Range Estab /ul 11/20/2024 3:51 PM CDT [facility] SERVICES - [facility] TOTAL RBC'S, FLD (AUTO) <1,000 No Ref Range Estab /ul 11/20/2024 3:51 PM CDT [facility] - [facility] NEUTROPHILS, FLD 2 No Ref Range Estab % 11/20/2024 3:51 PM CDT [facility] LABORATORY SERVICES - . [facility] LYMPHOCYTE, FLD 30 No Ref Range Estab % 11/20/2024 3:51 PM CDT [facility] - [facility] MONOCYTE/MACRO PHAGE, FLD 67 No Ref Range Estab % 11/20/2024 3:51 PM CDT [facility] SERVICES - [facility] Body fluid ENTIRE SEROUS MEMBRANE OF PERITONEUM / Unknown Collection / Unknown 11/20/2024 1:13 PM CDT 11/20/2024 1:50 PM CDT us Luis Sage MD BODY FLUIDS AND STOOLS Final Re sult [facility]AT[facility] SERVICES - [facility] CLIA# [id number] [address] [place] [address] * (ABNORMAL) TROPONIN 2 HR, 5TH GEN (11/20/2024 12:44 AM CDT) TROPONIN T, 2 HR 5TH GEN 27(H) <=10 ng/L 11/20/2024 1:30 AM CDT [facility] DELTA 2HR TROPONIN T 7 See Interp. 11/20/2024 1:30 AM CDT [facility] Blood Venipuncture / Unknown 11/20/2024 12:44 AM CDT 11/20/2024 12:47 AM CDT [facility] - 11/20/2024 1:30 AM CDT Troponin elevated. Delta indeterminate. Delay in collection of timed specimen beyond recommended collection interval. Results must be interpreted in clinical context. Fifi Adler MD CHEMISTRY ORDERABLES Final R esult Performing Organization Address [facility]/ZIP Co de Phone Number [facility]# [id number] [address] [place] [address] * (ABNORMAL) TROPONIN BASELINE, 5TH GEN (11/19/2024 9:45 PM CDT) [facility] TROPONIN T, BASELINE 5TH GEN 20(H) <=10 ng/L 11/19/2024 10:31 PM CDT [facility] Blood Venipuncture / Unknown 11/19/2024 9:45 PM CDT 11/19/2024 9:52 PM CDT [facility] - 11/19/2024 10:31 PM CDT Troponin elevated. Fifi Adler MD CHEMISTRY ORDERABLES Final R esult [facility]# [id number] [address] [place] [address] * (ABNORMAL) AMMONIA LEVEL (11/19/2024 9:45 PM CDT) Pathologist [facility] AMMONIA 71.3(H) 11.0 - 51.0 umol/L 11/19/2024 10:19 PM CDT [facility] Blood, venous Venipuncture / Unknown 11/19/2024 9:45 PM CDT 11/19/2024 9:52 PM CDT Ashish Perez MD CHEMISTRY ORDERABLES Final Result [facility]ORATORY SERVICES [facility] CLIA# [id number] [address] [place] [address] * (ABNORMAL) COMPREHENSIVE METABOLIC PANEL (11/19/2024 9:45 PM CDT) SODIUM 131(L) 136 - 145 mmol/L 11/19/2024 10:31 PM CDT [facility] - . [facility] POTASSIUM 4.2 3.5 - 5.0 mmol/L 11/19/2024 10:31 PM T [facility] - [facility] CHLORIDE 100 98 - 107 mmol/L 11/19/2024 10:31 PM CDT [facility] - . [facility] CO2 21(L) 22 - 29 mmol/L 11/19/2024 10:31 PM CDT [facility] LABORATORY SERVICES - . [facility] CALCIUM 8.5(L) 8.6 - 10.2 mg/dL 11/19/2024 10:31 PM T [facility] BUN 22(H) 6 - 20 mg/dL 11/19/2024 10:31 PM T [facility] - [facility] [place] CREATININE 0.99(H) 0.51 - 0.95 mg/dL 11/19/2024 10:31 PM CDT [facility] - [facility] GLUCOSE 93 74 - 99 mg/dL 11/19/2024 10:31 PM T [facility]ORY SERVICES - . [facility] TOTAL PROTEIN 6.1(L) 6.7 - 8.6 g/dL 11/19/2024 10:31 PM CDT [facility] ALBUMIN 3.0(L) 3.5 - 5.2 g/dL 11/19/2024 10:31 PM CDT [facility] BILIRUBIN TOTAL 2.7(H) 0.0 - 1.2 mg/dL 11/19/2024 10:31 PM CDT [facility] ALKALINE PHOSPHATASE 129(H) 35 - 104 U/L 11/19/2024 10:31 PM CDT [facility] AST 39(H) <33 U/L 11/19/2024 10:31 PM T [facility] Comment:Hemolysis present. R esult may be falsely elevated. ALT 13 <34 U/L 11/19/2024 10:31 PM T [facility] GFR >60 >=60 mL/min/1.7 3 sq meter 11/19/2024 10:31 PM T [facility] Comment:eGFR calculated with 2020 CKD-EPI equation. Vegetarian diet, extremely high or low muscle mass, and may affect results. Cystatin C with Glomerular Filtration Rate is a suitable alternative for these patients. ANION GAP 10 8 - 16 mmol/L 11/19/2024 10:31 PM CDT [facility] Blood Venipuncture / Unknown 11/19/2024 9:45 PM CDT 11/19/2024 9:52 PM CDT Narrative [facility] - 11/19/2024 10:31 PM CDT Samples containing indocyanine green cause interferences on Total and/or Direct Bilirubin and must not be measured. us Fifi Adler MD CHEMISTRY ORDERABLES Final R esult [facility]# [id number] [address] [place], [place] [address] * XR CHEST PA OR AP 1 [...] INTERFACE SYSTEM - 11/19/2024 5:24 PM CDT [facility] [address] [place] [address] Test Date: 2024-11-19 Pat Name: VALE MAGUIRE Department: 38 Room: Gender: Female Lead Solutions Architect: [email or web address] : 1970 Requested By: Order Number: [id number] Reading MD: Domenico Barrientos Measurements Intervals [place] Rate: 70 P: 42 MT: 170 QRS: -46 QRSD: 123 T: 24 QT: 463 QTc: 500 Interpretive Statements Sinus rhythm Nonspecific IVCD with LAD Left ventricular hypertrophy Anterior Q waves, possibly due to LVH Electronically Signed On 11-19-2024 17:24:21 CDT by Domenico Barrientos Procedure Note Domenico Barrientos MD - 08/22/2025 [facility] [address] , [place] [address] Test Date: 2024-11-19 Pat Name: VALE MAGUIRE Department: 38 Room: Gender: Female Lead Solutions Architect: [email or web address] : 1970 Requested By: Order Number: [id number] Reading MD: Domenico Barrientos Measurements Intervals [place] Rate: 70 P: 42 MT: 170 QRS: -46 QRSD: 123 T: 24 [...] recommended. BI-RADS 1 - Negative. Dictated from [facility] Procedure Note Kadi Eller MD - 06/23/2013 [...] recommended. BI-RADS 1 - Negative. Dictated from [facility] us Dante Patrick MD MAMMO ORDERABLES Final Resu lt from Last 3 Months or Most Recently Relevant to Health Maintenance Insurance [facility] EXCHANGE MEDICAID [place] RX [facility] Commercial RX [employer] (INTERNAL) [facility] Internal Plans RX INFOCROSSING Medicaid Advance Directives For more information, please contact: [phone] * Full Code (Latest Code Status on [...]
--- OUTSIDE RECORDS SUMMARY | 2025-01-27 13:53 | XMS_ITS | Encounter Summary ---
Author Organization [facility] Address [address] [place] [address] Care Team Providers Care Oxygen Therapy Teacher Name Role Phone Jhonny, Tri Shirley DO Primary Care Provider [phone] Encounter Details Date Type Department Care Team (Latest Contact Info) Description 04/06/2004 Outpatient Historical HIS [facility] Felicita Dailey MD [address] [address] HYPOTHYROIDISM NOS (Primary Dx) Social History Tobacco Use Types Packs/Day Years Used Date Smoking Tobacco: Never Assessed Comments Unknown Sex and Gender Information Value Date Recorded Sex Assigned at Not on file Legal Sex Female 6:00 PM REGISTERED NURSE Gender Identity Not on file Sexual Orientation Not on file documented as of this encounter Plan of Treatment Not on file documented as of this encounter Procedures Procedure Name Priority Date/Time Associated Diagnosis Comments THYROID PEROXIDASE ANTIBODY Routine 04/06/2004 11:26 AM REGISTERED NURSE T3 FREE Routine 04/06/2004 11:26 AM REGISTERED NURSE TSH Routine 04/06/2004 11:26 AM REGISTERED NURSE T4 FREE Routine 04/06/2004 11:26 AM REGISTERED NURSE documented in this encounter Results * (ABNORMAL) THYROID PEROXIDASE ANTIBODY (04/06/2004 11:26 AM REGISTERED NURSE) THYROID PEROXIDASE AB >70(H) <2 IU/mL INTERFACE SYSTEM Comment: [facility] test [facility]: [email or web address] [address] [place] [address] DALY MOY MD 04/06/2004 11:2 6 AM REGISTERED NURSE us Felicita Plascencia MD CHEMISTRY ORDERABLES Final Result Performing Organization Address City/[facility] Co de Phone Number INTERFACE SYSTEM Refer to clinic/hospital department * TSH (04/06/2004 11:26 AM REGISTERED NURSE) TSH 3.83 0.27 - 4.20 uU/mL INTERFACE SYSTEM 04/06/2004 11:2 6 AM REGISTERED NURSE us Felicita Plascencia MD CHEMISTRY ORDERABLES Final Result Performing Organization Address [facility] Phone Number INTERFACE SYSTEM Refer to clinic/hospital department * T3 FREE (04/06/2004 11:26 AM REGISTERED NURSE) T3 FREE 3.3 2.5 - 4.4 pg/mL INTERFACE SYSTEM 04/06/2004 11:2 6 AM REGISTERED NURSE us Felicita Plascencia MD CHEMISTRY ORDERABLES Final Result Performing Organization Address [facility] Phone Number INTERFACE SYSTEM Refer to clinic/hospital department * T4 FREE (04/06/2004 11:26 AM REGISTERED NURSE) T4 FREE 1.6 0.9 - 1.7 ng/dL INTERFACE SYSTEM 04/06/2004 11:2 6 AM REGISTERED NURSE us Felicita Plascencia MD CHEMISTRY ORDERABLES Final Result Performing Organization Address City/[facility] de Phone Number INTERFACE SYSTEM Refer to [...] COVID-19 05/20/2024 05/20/2024 05/20/2024 12:4 3 PM REGISTERED NURSE documented as of this encounter Care Teams Oxygen Therapy Teacher Relationship Specialty Start Date End Date Tri Barry DO PCP - General Family Practice 02/09/21 12/24/22 documented as of this encounter
--- OUTSIDE RECORDS SUMMARY | 2025-01-27 13:53 | XMS_ITS | Encounter Summary ---
Author Organization [facility] Address [address] [facility] [address] Care Team Providers Care Wool Presser Name Role Phone Jhonny, Tritrinidad Shirley DO Primary Care Provider [phone] Encounter Details Date Type Department Care Team (Latest Contact Info) Description 12/14/2003 Outpatient Historical [facility] Carly Arreguin MD OTHER MALAISE AND FATIGUE (Primary Dx) Social History Tobacco Use Types Packs/Day Years Used Date Smoking Tobacco: Never Assessed Comments Unknown Sex and Gender Information Value Date Recorded Sex Assigned at Not on file Legal Sex Female 6:00 PM CROSSING TENDER Gender Identity Not on file Sexual Orientation [...] COVID-19 05/20/2024 05/20/2024 05/20/2024 12:4 3 PM CROSSING TENDER documented as of this encounter Care Teams Wool Presser Relationship Specialty Start Date End Date Tri Barry DO PCP - General Family Practice 02/09/21 12/24/22 documented as of this encounter
--- OUTSIDE RECORDS SUMMARY | 2025-01-27 13:53 | XMS_ITS | Encounter Summary ---
Author Organization [facility] Address [address] [facility] [address] Care Team Providers Care Data Deliverables Manager Name Role Phone Jhonny, Tritrinidad Shirley DO Primary Care Provider [phone] Encounter Details Date Type Department Care Team (Latest Contact Info) Description 12/22/2003 Outpatient Historical HIS [facility] Carly Arreguin MD OTHER MALAISE AND FATIGUE (Primary Dx) Social History Tobacco Use Types Packs/Day Years Used Date Smoking Tobacco: Never Assessed Comments Unknown Sex and Gender Information Value Date Recorded Sex Assigned at Not on file Legal Sex Female 6:00 PM USER SUPPORT ANALYST SUPERVISOR Gender Identity Not on file Sexual [...] COVID-19 05/20/2024 05/20/2024 05/20/2024 12:4 3 PM USER SUPPORT ANALYST SUPERVISOR documented as of this encounter Care Teams Data Deliverables Manager Relationship Specialty Start Date End Date Tri Barry DO PCP - General Family Practice 02/09/21 12/24/22 documented as of this encounter
--- OUTSIDE RECORDS SUMMARY | 2025-01-27 13:53 | XMS_ITS | Encounter Summary ---
Author Organization [facility] Address [address] [place] [address] Care Team Providers Care Biofuels Product Manager Name Role Phone Jhonny, Tri Shirley DO Primary Care Provider [phone] Encounter Details Date Type Department Care Team (Late st Contact Info) Description 04/25/1998 Outpatient Historical HIS [facility] Gimenez [address] [place] [address] Unspecified hypothyroidism (Primary Dx) Social History Tobacco Use Types Packs/Day Years Used Date Smoking Tobacco: Never Assessed Comments Unknown Sex and Gender Information Value Date Recorded Sex Assigned at Not on file Legal Sex Female 6:00 PM PLATE GRAINER APPRENTICE Gender Identity Not on file Sexual Orientation [...] COVID-19 05/20/2024 05/20/2024 05/20/2024 12:4 3 PM PLATE GRAINER APPRENTICE documented as of this encounter Care Teams Biofuels Product Manager Relationship Specialty Start Date End Date Tri Barry DO PCP - General Family Practice 02/09/21 12/24/22 documented as of this encounter
--- OUTSIDE RECORDS SUMMARY | 2025-01-27 13:53 | XMS_ITS | Encounter Summary ---
Author Organization [facility] Address [address] [place] [address] Care Team Providers Care Cemetery Worker Name Role Phone Tri Barry DO Primary Care Provider [phone] Encounter Details Date Type Department Care Team (Late st Contact Info) Description 07/25/1998 Outpatient Historical [facility] Medicine [address] [place] [address] Adelaide Saldivar Social History Tobacco Use Types Packs/Day Years Used Date Smoking Tobacco: Never Assessed Comments Unknown Sex and Gender Information Value Date Recorded Sex Assigned at Not on file Legal Sex Female 6:00 PM PEN MAKER Gender Identity Not on file Sexual Orientation [...] COVID-19 05/20/2024 05/20/2024 05/20/2024 12:4 3 PM PEN MAKER documented as of this encounter Care Teams Cemetery Worker Relationship Specialty Start Date End Date Tri Barry DO PCP - General Family Practice 02/09/21 12/24/22 documented as of this encounter
--- OUTSIDE RECORDS SUMMARY | 2025-01-27 13:53 | XMS_ITS | Clinical Summary ---
Author Organization [facility] Address [address] [place] [address] Care Team Providers Care Tower Attendant Name Role Phone Unavailable Primary Care Provider [...] 5 Active cholecalciferol (VITAMIN D3) 1.25 MG (01610 UT) capsule Take 1 capsule (50,000 Units [...] Tobacco: Never Tobacco Cessation:Counseling Given: Not Answered [facility] Utilities Answer Date Recorded In the past 12 months has mywaves, gas, oil, or water divorce360 threatened to shut off services in your home? No 04/21/2024 Social Connection and Isolation Panel Answer Date Recorded In a typical week, how many times do you talk on the phone with family, friends, or neighbors? Patient declined 04/21/2024 How often do you get togethe r with friends or relatives? Patient declined 04/21/2024 How often do you attend hoahaoism or jew serv ices? Patient declined 04/21/2024 Do you belong to any clubs o r organizations such as hoahaoism groups, unions, fraternal or athletic groups, or [...] medical care, and heating? Somewhat hard 04/21/2024 [facility] [place] of Occupat ional Health - Occupational Stress [...] were you homeless or living in a assisted (including now)? No 04/21/2024 Domestic Abuse Assessment [...] - Reported To Not on file 04/20/2024 SDOH Transportation Source Answer Da te Recorded [...] Comments Blood Pressure 96/51 05/04/2024 6:42 AM COMPENSATION AND HRIS ANALYST Pulse 72 05/04/2024 9:44 AM COMPENSATION AND HRIS ANALYST Temperature 36.6 C (97.8 F) 05/04/2024 6:42 AM COMPENSATION AND HRIS ANALYST Respiratory Rate 19 05/04/2024 6:42 AM COMPENSATION AND HRIS ANALYST Oxygen Saturation 92% 05/04/2024 9:44 AM COMPENSATION AND HRIS ANALYST Inhaled Oxygen Concentration - - Weight 83.5 kg (184 lb) 05/04/2024 4:00 AM COMPENSATION AND HRIS ANALYST Height 170.2 cm (5' 7) 05/04/2024 4:00 AM COMPENSATION AND HRIS ANALYST Body Mass Index 28.82 05/04/2024 4:00 AM COMPENSATION AND HRIS ANALYST Plan of Treatment Health Maintenance Due Date [...]
--- OUTSIDE RECORDS SUMMARY | 2025-01-27 13:53 | XMS_ITS | Encounter Summary ---
Author Organization [facility] Address [address] [place] [address] Care Team Providers Care Cloth Shrinking Machine Operator Helper Name Role Phone Jhonny, Tri Shirley DO Primary Care Provider [phone] Encounter Details Date Type Department Care Team (Late st Contact Info) Description 12/14/2003 Outpatient Historical [facility] Internal Medicine Medical [place] [facility] [address] [id number] Carly Armijo MD Social History Tobacco Use Types Packs/Day Years Used Date Smoking Tobacco: Never Assessed Comments Unknown Sex and Gender Information Value Date Recorded Sex Assigned at Not on file Legal Sex Female 6:00 PM CIVIL CAD TECH Gender Identity Not on file Sexual Orientation [...] COVID-19 05/20/2024 05/20/2024 05/20/2024 12:4 3 PM CIVIL CAD TECH documented as of this encounter Care Teams Cloth Shrinking Machine Operator Helper Relationship Specialty Start Date End Date Tri Barry DO PCP - General Family Practice 02/09/21 12/24/22 documented as of this encounter
--- OUTSIDE RECORDS SUMMARY | 2025-01-27 13:53 | XMS_ITS | Encounter Summary ---
Author Organization [facility] Address [address] [place] [address] Care Team Providers Care Rodding Machine Tender Name Role Phone Jhonny, Tri Shirley DO Primary Care Provider [phone] Encounter Details Date Type Department Care Team (Late st Contact Info) Description 12/22/2003 Outpatient Historical [facility] Internal Medicine Medical [place] [facility] [address] [facility] [facility] [address] [phone] Carly Armijo MD Social History Tobacco Use Types Packs/Day Years Used Date Smoking Tobacco: Never Assessed Comments Unknown Sex and Gender Information Value Date Recorded Sex Assigned at Not on file Legal Sex Female 6:00 PM TECHNICAL PROGRAM MANAGER Gender Identity Not on file Sexual Orientation [...] COVID-19 05/20/2024 05/20/2024 05/20/2024 12:4 3 PM TECHNICAL PROGRAM MANAGER documented as of this encounter Care Teams Rodding Machine Tender Relationship Specialty Start Date End Date Tri Barry DO PCP - General Family Practice 02/09/21 12/24/22 documented as of this encounter
--- OUTSIDE RECORDS SUMMARY | 2025-01-27 13:53 | XMS_ITS | Clinical Summary ---
Author Organization [facility] Address [address] [facility] [place] [address] Care Team Providers Care Food Service Substitute Name Role Phone Arcelia Whitney MIKAYLA-ORTHOPEDIC MECHANIC Unavailable [phone] Adelaide Tse MD Primary Care Provider Cameron hilton Source Comments [facility],non-owned Affiliates and Associated Physician Practices is amultiple site organization consisting of ambulatory clinics and hospital sitesin [place], [place], [place] and [place]. This disclosure is being madepursuant to the Care Everywhere program and may not contain all information available regarding this patient. Last updated 17.[facility] Allergies Active Allergy Reactions Criticality Noted Date Comments Amoxicillin Urticaria,Rash Medium 06/11/2023 exofin [Other] Rash,Itching Medium Latex Rash Medium 02/11/2012 Medications * Be aware that medications may not be up to date on this document. Alwaysverify current medications with the patient. 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 5 Active rifAXIMin (Xifaxan) 550 MG tablet Take 1 (one) tablet by mouth 2 times daily 5 Active carvedilol (Coreg) 3.125 MG tablet Take 1 (one) tablet by mouth 2 times daily with morning and evening meal 5 Active potassium chloride ER (Klor-Con M) 20 MEQ tablet Take 1 (one) tablet by mouth once 5 Active ondansetron (Zofran) 4 MG tablet Take 1 (one) tablet by mouth every 6 hours as needed for Nausea/Vomitin g 5 Active spironolactone (Aldactone) 100 MG tablet Take 1.5 (one and one-half) tablets by mouth once daily 45 tablet 5 Active ketoconazole (Nizoral) 2 % cream Apply to affected area 2 times daily 60 g 10/21/2024 3:39 PM CDT 5 Active ketoconazole (Nizoral) 2 % shampoo Apply to affected area every 3 days 120 mL 10/21/2024 3:39 PM CDT 5 Active mupirocin (Bactroban) 2 % ointment Apply to affected area 3 times daily 30 g 10/21/2024 3:39 PM CDT 5 Active tacrolimus (Protopic) 0.1 % ointment Apply to affected area 2 times daily 30 g 10/21/2024 3:39 PM CDT 5 Active oxyCODONE, immediate release, (Roxicodone) 5 MG tablet Take 1 (one) tablet by mouth every 6 hours as needed for Pain 5 Active bumetanide (Bumex) 2 MG tablet Take 1 (one) tablet by mouth once daily Active levothyroxine (Synthroid) 200 MCG tablet Take 1 (one) tablet by mouth daily before breakfast Active omeprazole (PriLOSEC) 20 MG capsule Take 1 (one) capsule by mouth 2 times daily, before breakfast and supper for 60 days 5 025 Active Active Problems Problem Noted Date Diagnosed Date Decompensated cirrhosis 12/15/2024 Assessment & Plan (12/16/2024 2:26 PM CDT): MELD 3.0 was 23 at 12/15/2024 5:25 AM MELD-Na was 22 at 12/15/2024 5:25 AM MELD was 18 at 12/15/2024 5:25 AM Age at listing (hypothetical): 54 years Sex: Female - Etiology: alcohol + MASLD - Primary Powersaw Supervisor: Dr Richmond - HE: known history, on [...] not have adequate social support, lives at currently PLAN: - holding home diuretics, coreg 2/2 ALIREZA - plan for LVP today - continue home lactulose, rifaximin Assessment & Plan (12/15/2024 1:23 PM CDT): MELD 3.0 was 23 at 12/15/2024 5:25 AM MELD-Na was 22 at 12/15/2024 5:25 AM MELD was 18 at 12/15/2024 5:25 AM Age at listing (hypothetical): 54 years Sex: Female - Etiology: alcohol + MASLD - Primary Powersaw Supervisor: Dr Richmond - HE: known history, on [...] not have adequate social support, lives at currently PLAN: - holding home diuretics, coreg 2/2 ALIREZA - plan for LVP today - continue home lactulose, rifaximin Assessment & Plan (12/15/2024 1:17 PM CDT): MELD 3.0 was 22 at 12/13/2024 1:11 PM MELD-Na was 21 at 12/13/2024 1:11 PM MELD was 17 at 12/13/2024 1:11 PM Age at listing (hypothetical): 54 years Sex: Female - Etiology: alcohol + MASLD - Primary Powersaw Supervisor: Dr Richmond - HE: known history, on [...] not have adequate social support, lives at currently PLAN: - holding home diuretics, coreg [...] (HCC) WRITTEN ON 11/30/2024 11:40 AM BY POPPY RICHMOND MD >>ASSESSMENT AND PLAN FOR SHORTNESS OF BREATH WRITTEN ON 10/20/2024 10:19 PM BY LORI YOUNG PA-C MELD 3.0: 20 at 10/20/2024 [...] - Etiology: alcohol + MASLD - Primary Powersaw Supervisor: Dr Richmond - HE: known history, on [...] (HCC) WRITTEN ON 10/20/2024 10:13 PM BY LORI YOUNG PA-C -possibly related to cirrhosis -currently [...] (HCC) WRITTEN ON 11/30/2024 10:58 AM BY POPPY RICHMOND MD >>ASSESSMENT AND PLAN FOR DECOMPENSATED HEPATIC CIRRHOSIS (HCC) WRITTEN ON 10/20/2024 10:19 PM BY LORI YOUNG PA-C MELD 3.0: 20 at 10/20/2024 [...] - Etiology: alcohol + MASLD - Primary Powersaw Supervisor: Dr Richmond - HE: known history, on [...] (HCC) WRITTEN ON 10/20/2024 10:19 PM BY LORI YOUNG PA-C MELD 3.0: 20 at 10/20/2024 [...] - Etiology: alcohol + MASLD - Primary Powersaw Supervisor: Dr Richmond - HE: known history, on [...] Dr. Mahoney if nsaids do not help. ([employer], put in for scanning). Vitamin B12 deficiency [...] - 12/15/2024 5:33 PM CDT Hospital Encounter [facility] ACUTE [address] [place] [address] Kadi Ruiz MD Yogendran, Rajiv L, MD Agbim, Uchenna A, MD Gastroenterology Discharge Disposition: Prison or Supportive Care 12/13/2024 11:00 AM CDT - 12/13/2024 11:15 AM CDT Surgery [facility] [address] [place] [address] Eden Caro PA-C PARACENTESIS ABDOMEN (PERCUTANEOUS) 12/13/2024 10:54 AM CDT - 12/13/2024 11:25 AM CDT Hospital Encounter [facility] [address] [place] [address] Eden Caro PA-C Surgery General Discharge Disposition: Still a Patient 12/12/2024 6:42 PM CDT - 12/12/2024 8:37 PM CDT Emergency ER at [address] [address] Chantale Flores, Chest pain, unspecified type Discharge Disposition: Home or Self Care 12/12/2024 Travel 12/06/2024 1:30 PM CDT Office Visit [facility] - Pulmonology [address] [facility], [facility] [place] [address] Jake Grijalva MD Hepatopulmonary syndrome (HCC) (Primary Dx); Decompensated hepatic cirrhosis (HCC); MetALD; Ascites due to alcoholic cirrhosis (HCC); Esophageal varices determined by endoscopy (HCC); [place] (dyspnea on exertion); Hypoxia; Chronic respiratory failure with hypoxia (HCC) 12/06/2024 Travel 12/02/2024 10:23 AM CDT - 12/02/2024 12:36 PM CDT Hospital Encounter [facility] [address] [place] [address] Eden Caro PA-C Surgery General Discharge Disposition: Home or Self Care 12/02/2024 8:25 AM CDT - 12/02/2024 8:40 AM CDT Surgery [facility] [address] [place] [address] Eden Caro PA-C PARACENTESIS ABDOMEN (PERCUTANEOUS) 12/02/2024 Travel 11/30/2024 10:30 AM CDT Office Visit [facility] - GI [address] [facility], [place] [address] Poppy Richmond MD Cirrhosis of liver with ascites, unspecified hepatic cirrhosis type (HCC) (Primary Dx); Other ascites; Secondary esophageal varices without bleeding (HCC); Encounter for screening for other viral diseases; Hepatopulmonary syndrome (HCC) 11/30/2024 Travel 11/25/2024 11:00 AM CDT - 11/25/2024 11:15 AM CDT Surgery [facility] [address] [place] [address] Eden Caro PA-C PARACENTESIS ABDOMEN (PERCUTANEOUS) 11/25/2024 10:46 AM CDT - 11/25/2024 1:30 PM CDT Hospital Encounter [facility] [address] [place] [address] Eden Caro PA-C Surgery General Discharge Disposition: Residential Facility 11/25/2024 Travel 11/11/2024 11:00 AM CDT - 11/11/2024 11:15 AM CDT Surgery [facility] [address] [place] [address] Eden Caro PA-C PARACENTESIS ABDOMEN (PERCUTANEOUS) 11/11/2024 10:06 AM CDT - 11/11/2024 1:31 PM CDT Hospital Encounter [facility] [address] [place] [address] Eden Caro PA-C Surgery General Discharge Disposition: Residential Facility 11/11/2024 Travel 11/05/2024 11:53 AM CDT Anesthesia Event [facility] [address] [place] [address] Jamie Méndez MD Dobbs, Connie Negrete, JET BLADE POLISHER-ABRAHAN 11/05/2024 10:30 AM CDT - 11/05/2024 11:00 AM CDT Surgery [facility] [address] [place] [address] Poppy Richmond MD EGD w/ sandra 11/05/2024 9:02 AM CDT - 11/05/2024 1:31 PM CDT Hospital Encounter [facility] [address] [place] [address] Poppy Richmond MD Surgery General Discharge Disposition: Home or Self Care 11/04/2024 8:58 AM CDT - 11/04/2024 11:28 AM CDT Hospital Encounter [facility] [address] [place] [address] Eden Caro PA-C Surgery General Discharge Disposition: Home or Self Care 11/04/2024 8:10 AM CDT - 11/04/2024 8:25 AM CDT Surgery [facility] [address] [place] [address] Eden Caro PA-C PARACENTESIS ABDOMEN (PERCUTANEOUS) 11/04/2024 Telephone [facility] - GI [address] [facility], [facility] [place] [address] Dori Price RN General 11/04/2024 Patient Outreach [facility] [address] [place] [address] Lorri Luu RN Pre-op Instructions 11/04/2024 Travel 10/28/2024 8:18 AM CDT - 10/28/2024 10:49 AM CDT Hospital Encounter [facility] [address] [place] [address] Eden Caro PA-C Surgery General Discharge Disposition: Home or Self Care 10/28/2024 7:55 AM CDT - 10/28/2024 8:10 AM CDT Surgery [facility] [address] [place] [address] Luis Lopez MD PARACENTESIS ABDOMEN (PERCUTANEOUS) 10/28/2024 Travel from Last 3 Months Immunizations Immunization Administration [...] Recorded Patient Health Questionnaire-2 Score 0 07/02/2024 [facility] of Occupat ional Health - Occupational Stress [...] any time in the past 12 m [facility], were you homeless or living in a residential (including now)? No 12/14/2024 Comments No Sex and Gender Information Value Date Recorded Sex Assigned at Not on file Legal Sex Female 5:09 AM BACK WEDGER Gender Identity Not on file Sexual Orientation [...] st Contact Info) Description 02/03/2025 12:40 PM BACK WEDGER Appointment [facility] [address] [place] [address] Poppy Richmond MD [address] [place] [phone] 03/28/2025 3:00 PM BACK WEDGER Office Visit [facility] - Pulmonology [address] [place] [address], [place] [phone] Jake Grijalva MD [address] [place] [address] OF [facility] [place] [address] 05/31/2025 10:30 AM BACK WEDGER Office Visit [facility] - GI [address] [place] [address], [place] [phone] Poppy Richmond MD [address] [place] [phone] Health Maintenance Due Date Last Done Comments COLOGUARD (AGES 45-75) - COLON CA SCREENING 1970 COLON MONITORING 1970 COLONOSCOPY - COLON CA SCREENING 1970 CT COLONOGRAPHY - COLON CA SCREENING 1970 Colorectal Cancer Screening 1970 FIT - COLON CA SCREENING 1970 FLEX SIG - COLON CA SCREENING 1970 HEPATITIS B VACCINE (1 of 3 - 19+ 3-dose series) 1989 PNEUMOCOCCAL VACCINE 50+ (1 of 2 - PCV) 1989 PAP with HPV 02/22/2000 DIABETES-STATIN 2010 DIABETES RETINOPATHY SCREENING 12/11/2011 DIABETES-FOOT EXAM WITH MONOFILAMENT 12/11/2011 MAMMOGRAM 06/22/2015 06/21/2013 DTAP/TDAP/TD VACCINES (2 - Td or Tdap) 09/30/2019 09/29/2009 ZOSTER VACCINE (1 of 2) 02/22/2020 DIABETES - URINE PROTEIN SCREENING 03/31/2024 DIABETES-HGB A1C 11/14/2024 05/17/2024, , 05/01/2009 COVID-19 VACCINE ( season) 2024 INFLUENZA VACCINE (#1) 2024 DIABETES-SERUM [...] Patient-Stated? Author Medication Management General On track( 025 10:51 AM CDT) No Sherry Schwartz, RN Note: Expected end date: ongoing Interventions: Take all medications as prescribed Let your doctor know right away about any changes in your medications Make sure to request a refill of your medication at least one week prior to your last dose Safety General On track( 025 10:51 AM CDT) Geovanna Llanes, RN Note: Expected end date: ongoing Interventions: [...] AM CDT Other cirrhosis of liver (HCC) CA ABD PARACENTESIS W/IMAGING 12/13/2024 7:00 PM CDT [...] with ascites, unspecified hepatic cirrhosis type (HCC) CA ABD PARACENTESIS W/IMAGING 12/02/2024 10:55 AM CDT Other ascites Special Needs Message Received: Today Fish Sidhu, [place]ys [place] RN She would like to come back [...] with ascites, unspecified hepatic cirrhosis type (HCC) CA ABD PARACENTESIS W/IMAGING 11/25/2024 10:58 AM CDT [...] with ascites, unspecified hepatic cirrhosis type (HCC) CA ABD PARACENTESIS W/IMAGING 11/11/2024 11:31 AM CDT Other ascites EGD Routine 11/05/2024 11:51 AM CDT CA ED EGD FLEX TRANSORAL DX 11/05/2024 11:48 AM CDT Esophageal varices without bleeding, unspecified esophageal varices type (HCC) Special Needs Message Received: Today Poppy Richmond MD [facility] Schedulers - Endoscopy Pool Please set up [...] hypertension (HCC) Other cirrhosis of liver (HCC) CA ABD PARACENTESIS W/IMAGING 11/04/2024 9:11 AM CDT Other ascites LARGE VOLUME PARACENTESIS Routine 10/28/2024 9:42 AM CDT DIFFERENTIAL MANUAL FLUID Routine 10/28/2024 9:36 AM CDT Other cirrhosis of liver (HCC) CELL COUNT W DIFFERENTIAL FLUID Routine 10/28/2024 9:36 AM CDT Other cirrhosis of liver (HCC) CULTURE FLUID+GRAM STAIN STAT 10/28/2024 9:36 AM CDT Other cirrhosis of liver (HCC) CA ABD PARACENTESIS W/IMAGING 10/28/2024 8:40 AM CDT Other ascites HEMOGLOBIN A1C Routine 05/17/2024 12:29 PM BACK WEDGER Hospital discharge follow-up HEPATITIS SCREEN ACUTE STAT 06/11/2023 11:38 PM CDT Jaundice HIV-1 HIV-2 ANTIBODY + HIV P24 AG PANEL STAT 06/19/2021 4:27 PM CDT from Last 3 Months or Most Recently Relevant to Health Maintenance Results * CULTURE FLUID+GRAM STAIN (12/15/2024 2:49 PM CDT) Only the most recent of6 resultswithin the time period is included. Culture No growth ARIANA 12/21/2024 2:08 PM CDT [facility] Gram Stain Rare Polymorphonuclear cells 12/21/2024 2:08 PM CDT [facility] Gram Stain No organisms seen 025 2:08 PM CDT [facility] Other PERITONEAL FLUID / Unknown Collection / Unknown 12/15/2024 2:49 PM CDT 12/15/2024 2:53 PM CDT Poppy Richmond MD LAB - MICROBIOLOGY ORDERABLES Final Result Performing Organization Address City/[facility]/ZIP Co de Phone Number [facility] [address] [place] [address], [facility] [phone] * CULTURE ANAEROBE (12/15/2024 2:45 PM CDT) Culture No anaerobic organisms isolated ARIANA 12/20/2024 8:34 AM CDT [facility] Microbiology PERITONEAL FLUID / Unknown Collection / Unknown 12/15/2024 2:45 PM CDT 12/15/2024 2:53 PM CDT Poppy Richmond MD LAB - MICROBIOLOGY ORDERABLES Final Result Performing Organization Address City/[facility]/ZIP Co de Phone Number [facility] [address] [place] [address], [facility] [phone] * DIFFERENTIAL MANUAL FLUID (12/15/2024 2:44 PM CDT) Only the most recent of6 resultswithin the time period is included. Fluid Source Peritoneal 12/15/2024 3:37 PM CDT [facility] Body Fluid Total Cell Count 200 x10E6/L 12/15/2024 3:37 PM CDT [facility] Neutrophils Fluid Percent 2 % 12/15/2024 3:37 PM CDT [facility] Lymphocytes Fluid Percent 62 % 12/15/2024 3:37 PM CDT [facility] Macrophages Fluid Percent 35 % 12/15/2024 3:37 PM CDT [facility] Mesothelial Cells Fluid Percent 1 % 12/15/2024 3:37 PM CDT [facility] Fluid PERITONEAL FLUID / Unknown Collection / Unknown 12/15/2024 2:44 PM CDT 12/15/2024 2:53 PM CDT [facility] - 12/15/2024 3:37 PM CDT No reference ranges established for body fluid differential cell counts. The test results must be integrated into the clinical context for interpretation. us Poppy Richmond MD LAB - BODY FLUID ORDERABLES F inal Result [address] [address], [facility] [phone] * CELL COUNT W DIFFERENTIAL FLUID (12/15/2024 2:44 PM CDT) Only the most recent of6 resultswithin the time period is included. Fluid Source Peritoneal 12/15/2024 3:38 PM CDT [facility] Fluid Appearance CLEAR 12/15/2024 3:38 PM CDT [facility] Fluid Color YELLOW 12/15/2024 3:38 PM T [facility] Total Nucleated Cells Fluid 79 Reference Range Not Established x10E6/L 12/15/2024 3:38 PM T [facility] RBC Count Fluid <2,000 Reference Range Not Established x10E6/L 12/15/2024 3:38 PM CDT [facility] Fluid PERITONEAL FLUID / Unknown Collection / Unknown 12/15/2024 2:44 PM CDT 12/15/2024 2:53 PM CDT [facility] - 12/15/2024 3:38 PM CDT No reference ranges established for body fluid cell counts. Any reference ranges provided are derived from published literature. The test results must be integrated into the clinical context for interpretation. Poppy Richmond MD LAB - BODY FLUID ORDERABLES F inal Result Performing Organization Address [facility]/ZIP Co de Phone Number [address] [address], [facility] [phone] * (ABNORMAL) PT-INR (12/15/2024 5:25 AM CDT) Only the most recent of5 resultswithin the time period is included. PT 17.5(H) 12.1 - 14.8 Seconds 12/15/2024 6:00 AM CDT [facility] INR 1.5 See Comment 12/15/2024 6:00 AM CDT [facility] Comment:The suggested therap eutic range for standard coumadin (warfarin) therapy is an INR of 2.0-3.0. For high-risk patients (Mechanical Mitral Valve Prosthesis, etc.), the suggested prophylactic therapeutic range is an INR of 2.5-3.5. Blood BLOOD SPECIMEN / Unknown Lab Venipuncture / Unknown 12/15/2024 5:25 AM CDT 12/15/2024 5:34 AM CDT Poppy Richmond MD LAB - COAGULATION ORDERABLES Final Result Performing Organization Address [facility] de Phone Number [address] [address], [facility] [phone] * (ABNORMAL) CBC W AUTO DIFFERENTIAL (12/15/2024 5:25 AM CDT) Only the most recent of6 resultswithin the time period is included. WBC 4.7 4.0 - 10.7 x10E9/L 12/15/2024 5:40 AM CDT [facility] RBC Count 3.14(L) 3.90 - 5.20 x10E12/L 12/15/2024 5:40 AM CDT [facility] Hemoglobin 10.2(L) 11.9 - 15.8 g/dL 12/15/2024 5:40 AM CDT [facility] Hematocrit 31.2(L) 34.8 - 46.1 % 12/15/2024 5:40 AM [facility] MCV 99.4(H) 80.0 - 98.0 fL 12/15/2024 5:40 AM [facility] MCH 32.5 26.7 - 33.6 pg 12/15/2024 5:40 AM [facility] MCHC 32.7 31.7 - 36.3 g/dL 12/15/2024 5:40 AM [facility] RDW-CV 16.6(H) 11.3 - 14.8 % 12/15/2024 5:40 AM [facility] Platelet Count 80(L) 150 - 420 x10E9/L 12/15/2024 5:40 AM [facility] MPV 10.3 7.8 - 11.4 fL 12/15/2024 5:40 AM [facility] Neutrophil % 56.9 41.0 - 74.0 % 12/15/2024 5:40 AM [facility] Lymphocyte % 23.9 17.0 - 47.0 % 12/15/2024 5:40 AM [facility] Monocyte % 13.8(H) 3.0 - 11.0 % 12/15/2024 5:40 AM [facility] Eosinophil % 3.9 0.0 - 7.0 % 12/15/2024 5:40 AM [facility] Basophil % 1.1 0.0 - 1.6 % 12/15/2024 5:40 AM [facility] Immature Granulocytes % 0.4 0.0 - 1.0 % 12/15/2024 5:40 AM [facility] Neutrophil Absolute 2.65 1.60 - 7.50 x10E9/L 12/15/2024 5:40 AM [facility] Lymphocyte Absolute 1.11 1.00 - 4.40 x10E9/L 12/15/2024 5:40 AM [facility] Monocyte Absolute 0.64 0.15 - 1.00 x10E9/L 12/15/2024 5:40 AM [facility] Eosinophil Absolute 0.18 0.00 - 0.60 x10E9/L 12/15/2024 5:40 AM [facility] Basophil Absolute 0.05 0.00 - 0.13 x10E9/L 12/15/2024 5:40 AM [facility] Blood BLOOD SPECIMEN / Unknown Lab Venipuncture / Unknown 12/15/2024 5:25 AM CDT 12/15/2024 5:34 AM CDT us Poppy Richmond MD LAB - HEMATOLOGY ORDERABLES F inal Result [facility] [address] [place] [phone], [facility] [phone] * (ABNORMAL) COMPREHENSIVE METABOLIC PANEL (12/15/2024 5:25 AM CDT) Only the most recent of5 resultswithin the time period is included. BUN 22 7 - 26 mg/dL 12/15/2024 6:04 AM [facility] Creatinine 1.18(H) 0.56 - 0.96 mg/dL 12/15/2024 6:04 AM [facility] Sodium 132(L) 136 - 145 mmol/L 12/15/2024 6:04 AM [facility] Potassium 4.2 3.5 - 4.5 mmol/L 12/15/2024 6:04 AM [facility] Chloride 104 98 - 107 mmol/L 12/15/2024 6:04 AM [facility] CO2 22 22 - 29 mmol/L 12/15/2024 6:04 AM [facility] Glucose 102(H) 70 - 99 mg/dL 12/15/2024 6:04 AM [facility] Calcium 8.4 8.4 - 10.2 mg/dL 12/15/2024 6:04 AM [facility] Protein Total 6.0 6.0 - 8.3 g/dL 12/15/2024 6:04 AM [facility] Albumin 2.7(L) 3.4 - 5.0 g/dL 12/15/2024 6:04 AM [facility] Bilirubin Total 3.8(H) 0.2 - 1.2 mg/dL 12/15/2024 6:04 AM [facility] Alkaline Phosphatase 106 40 - 150 U/L 12/15/2024 6:04 AM [facility] ALT 19 5 - 55 U/L 12/15/2024 6:04 AM [facility] AST 32 5 - 34 U/L 12/15/2024 6:04 AM [facility] Anion Gap 6 6 - 16 12/15/2024 6:04 AM [facility] BUN/Creatinine Ratio 19 7 - 23 12/15/2024 6:04 AM [facility] Osmolality Calculated 278 275 - 295 mOsm/kg 12/15/2024 6:04 AM [facility] Albumin/Globulin Ratio 0.8(L) 1.1 - 2.3 12/15/2024 6:04 AM [facility] eGFR by CKD-EPI 55(L) >=90 mL/min/1.7 3 m2 12/15/2024 6:04 AM [facility] Comment:Estimated Glomerular Filtration Rate (eGFR) calculated using the CKD-EPI Creatinine Equation (2020), per the National Kidney Foundation and [place] [employer] recommendations. Blood BLOOD SPECIMEN / Unknown Lab Venipuncture / Unknown 12/15/2024 5:25 AM CDT 12/15/2024 5:34 AM CDT us Poppy Richmond MD LAB - CHEMISTRY ORDERABLES Fi nal Result [facility] [address] [place] [address], [facility] [phone] * PHOSPHORUS BLOOD (12/15/2024 5:25 AM CDT) Phosphorus 3.4 2.9 - 5.1 mg/dL 12/15/2024 6:04 AM [facility] Blood BLOOD SPECIMEN / Unknown Lab Venipuncture / Unknown 12/15/2024 5:25 AM CDT 12/15/2024 5:34 AM CDT us Poppy Richmond MD LAB - CHEMISTRY ORDERABLES Fi nal Result Performing Organization Address City/[facility]/ZIP Co de Phone Number [address] [address], [facility] [phone] * MAGNESIUM BLOOD (12/15/2024 5:25 AM CDT) Only the most recent of2 resultswithin the time period is included. Magnesium 2.3 1.6 - 2.6 mg/dL 12/15/2024 6:04 AM CDT [facility] Blood BLOOD SPECIMEN / Unknown Lab Venipuncture / Unknown 12/15/2024 5:25 AM CDT 12/15/2024 5:34 AM CDT us Poppy Richmond MD LAB - CHEMISTRY ORDERABLES nal Result Performing Organization Address [facility] Co de Phone Number [address] [address], [facility] [phone] * CARDIAC EKG ORDER (12/14/2024 3:17 PM CDT) Only the most recent of2 resultswithin the time period is included. Narrative 12/14/2024 3:17 PM CDT Ordered by an unspecified provider. Scanned Document CARDIAC SERVICES ORDERABLES Fin al Result * (ABNORMAL) URINALYSIS REFLEX MICROSCOPIC REFLEX CULTURE (12/13/2024 6:38 PM CDT) Color UA Yellow Yellow, Straw 12/13/2024 7:00 PM CDT [facility] Clarity UA Clear Clear 12/13/2024 7:00 PM CDT [facility] Glucose UA Normal Normal 12/13/2024 7:00 PM CDT [facility] Bilirubin UA Negative Negative 12/13/2024 7:00 PM CDT [facility] Ketone UA Negative Negative 12/13/2024 7:00 PM CDT [facility] Specific [place] UA 1.024 1.005 - 1.030 12/13/2024 7:00 PM [facility] Blood UA Negative Negative 12/13/2024 7:00 PM [facility] pH UA 6.5 5.0 - 8.0 12/13/2024 7:00 PM [facility] Protein UA Negative Negative 12/13/2024 7:00 PM [facility] Urobilinogen UA Normal Normal mg/dL 12/13/2024 7:00 PM [facility] Nitrite UA Negative Negative 12/13/2024 7:00 PM [facility] Leukocyte Esterase UA 500 ELODIA/uL(A) Negative 12/13/2024 7:00 PM [facility] RBC UA 0-2 0 - 5 # /hpf 12/13/2024 7:00 PM [facility] WBC UA 21-50(A) 0 - 5 # /hpf 12/13/2024 7:00 PM [facility] Bacteria UA None Seen None Seen 12/13/2024 7:00 PM [facility] Squamous Epithelial Cells 0-2 0 - 5 /hpf 12/13/2024 7:00 PM [facility] Reflex Status Culture to follow 12/13/2024 7:00 PM [facility] Urine URINE SPECIMEN OBTAINED BY CLEAN CATCH PROCEDURE / Unknown Collection / Unknown 12/13/2024 6:38 PM CDT 12/13/2024 6:41 PM CDT Kadi Ruiz MD LAB - URINALYSIS ORDERABLES Fi nal Result [address] [address], [facility] [phone] * (ABNORMAL) CULTURE URINE (12/13/2024 6:38 PM CDT) Culture Urine >100,000 CFU/mL Klebsiella pneumoniae extended-spect rum beta-lactamase (ESBL)(A) ARIANA 12/16/2024 12:18 AM CDT [facility] Comment:Isolate is multi brady g resistant organism (MDRO). Urine URINE SPECIMEN OBTAINED BY CLEAN CATCH PROCEDURE / Unknown Collection / Unknown 12/13/2024 6:38 PM CDT 12/13/2024 6:41 PM CDT [facility] MICROBIOLOGY - 12/16/2024 12:18 AM CDT Contact [...] MICROBIOLOGY ORDERABLES Final Result Performing Organization Address City/[facility]/ZIP Co de Phone Number [facility] [address] [place] [address], [facility] [phone] * UREA NITROGEN URINE RANDOM (12/13/2024 6:38 PM CDT) Urea Nitrogen Random Urine 253 Not Established mg/dL 12/13/2024 7:08 PM CDT [facility] Urine URINE SPECIMEN OBTAINED BY CLEAN CATCH PROCEDURE / Unknown Collection / Unknown 12/13/2024 6:38 PM CDT 12/13/2024 6:41 PM CDT Kadi Ruiz MD LAB - URINE CHEMISTRY ORDERABL ES Final Result Performing Organization Address City/[facility] Co de Phone Number [facility] [address] [place] [address], [place] [phone] * LYTES (NA K CL) URINE RANDOM PANEL (12/13/2024 6:38 PM CDT) Sodium Urine 60 Not Established mmol/L 12/13/2024 7:08 PM CDT [facility] Potassium Urine 48.9 Not Established mmol/L 12/13/2024 7:08 PM CDT [facility] Chloride Random Urine 82 Not Established mmol/L 12/13/2024 7:08 PM CDT [facility] Urine URINE SPECIMEN OBTAINED BY CLEAN CATCH PROCEDURE / Unknown Collection / Unknown 12/13/2024 6:38 PM CDT 12/13/2024 6:41 PM CDT Kadi Ruiz MD LAB - URINE CHEMISTRY ORDERABL ES Final Result Performing Organization Address City/[facility]/ZIP Co de Phone Number [address] [address], [place] [phone] * CREATININE URINE RANDOM (12/13/2024 6:38 PM CDT) Creatinine Urine 33.12 Not Established mg/dL 12/13/2024 7:08 PM CDT [facility] Urine URINE SPECIMEN OBTAINED BY CLEAN CATCH PROCEDURE / Unknown Collection / Unknown 12/13/2024 6:38 PM CDT 12/13/2024 6:41 PM CDT us Kadi Ruiz MD LAB - URINE CHEMISTRY ORDERABL ES Final Result Performing Organization Address [facility] Co de Phone Number [address] [address], [place] [phone] * CT Angio Chest Pulm Embolism (12/13/2024 5:32 PM CDT) Anatomical Region Laterality Modality Chest Computed Tomogra phy 12/13/2024 5:55 PM CDT Impressions 12/13/2024 9:05 PM CDT Impression: 1.No evidence of acute pulmonary embolism. 2.Hepatic cirrhosis with sequela of portal hypertension including moderate volume ascites. > Dictated by Brii Su MD > Dictated by Brii Su MD 12/13/2024 5:55 PM > Dictated by Chocolate Molder IKike MD have personally reviewed and interpreted this examination/study. > Interpreting Provider: Kike Eduardo MD on 12/13/2024 9:05 PM Narrative 12/13/2024 9:05 PM CDT PROCEDURE: CT ANGIO CHEST PULM EMBOLISM, DATE/TIME OF EXAM: 12/13/2024 5:32 PM, LOCATION [facility] INDICATION: R06.02: SOB (shortness of breath) [...] DATE/TIME OF EXAM: 12/13/2024 5:32 PM, LOCATION [facility] INDICATION: R06.02: SOB (shortness of breath) [...] MD 12/13/2024 5:55 PM > Dictated by Chocolate Molder IKike MD have personally reviewed and interpreted this examination/study. > Interpreting Provider: Kike Eduardo MD on 12/13/2024 9:[address] Ru[address] MD [address] ORDERABLES Final Result * VAS Left Venous Duplex Le (12/13/2024 3:23 PM CDT) Anatomical Region Laterality Modality Lower Extremity, Upper Extremity Ultrasound 12/13/2024 1:58 PM CDT Narrative Procedure Note Dominguez Hoffman MD - 12/14/2024 Kadi Ruiz MD VASCULAR LAB ORDERABLES Edited Result - Final * TROPONIN-I HIGH SENSITIVE REFLEX 1HOUR (12/13/2024 2:21 PM CDT) Troponin I High Sensitive <3 <=14 ng/L 12/13/2024 3:08 PM CDT [facility] Delta Troponin I HS 12/13/2024 3:08 PM CDT [facility] Comment:Result exceeds linea rity range. A delta value is unable to be calculated. Blood BLOOD SPECIMEN / Unknown Venipuncture / Unknown 12/13/2024 2:21 PM CDT 12/13/2024 2:36 PM CDT Mendy Harmon PA-C LAB - CHEMISTRY ORDERABLES Patricia l Result [facility] [address] [place] [address], [place] [phone] * TROPONIN-I HIGH SENSITIVE BASELINE + 1HR (12/13/2024 1:11 PM CDT) Only the most recent of2 resultswithin the time period is included. Troponin I High Sensitive <3 <=14 ng/L 12/13/2024 1:50 PM CDT [facility] Blood BLOOD SPECIMEN / Unknown Venipuncture / Unknown 12/13/2024 1:11 PM CDT 12/13/2024 1:17 PM CDT us Mendy Harmon PA-C LAB - CHEMISTRY ORDERABLES Patricia negrete Result [facility] [address] [place] [phone], [facility] [phone] * XR CHEST 2VW (12/13/2024 12:52 PM CDT) Anatomical Region Laterality Modality Chest Digital Radiogra [...] 12:44 PM CDT) Only the most recent of2 resultswithin the time period is included. Ventricular Rate 74 BPM [facility]USE Atrial Rate 74 BPM [facility] P-R Interval 194 ms [facility] QRS Duration ms 118 ms [facility] Q-T Interval ms 420 ms [facility] QTC Calculation (Bezet) 466 ms [facility] MUSE Calculated P Darby 54 degrees [facility] MUSE Calculated R Darby -53 degrees [facility] MUSE Calculated T Darby 61 degrees [facility] MUSE Interpretation EKG NORMAL SINUS RHYTHM LEFT ANTERIOR FASCICULAR BLOCK MINIMAL VOLTAGE CRITERIA FOR LVH, MAY BE NORMAL VARIANT ( Amrit product ) ABNORMAL ECG WHEN COMPARED WITH ECG OF 20-OCT-2024 16:55, NO SIGNIFICANT CHANGE WAS FOUND Confirmed by LENIN HUERTA, COBY ([id number]) on 12/14/2024 8:22:25 AM [facility] 12/13/2024 12:4 4 PM CDT 12/14/2024 8:22 AM CDT Mendy Harmon PA-C ECG ORDERABLES Edited Result - Final [facility] * XR Chest 1Vw Portable (12/12/2024 7:00 PM CDT) Anatomical Region Laterality Modality Chest Radiographic Louise [...] NATRIURETIC PEPTIDE (12/12/2024 6:51 PM CDT) Pathologist [facility] BNP 38 <=100 pg/mL 12/12/2024 7:40 PM CDT [facility] Blood BLOOD SPECIMEN / Unknown 12/12/2024 6:51 PM CDT 12/12/2024 7:16 PM CDT Chantale Flores DO LAB - CHEMISTRY ORDERABLE S Final Result [facility] [address] [place] [address] * Large Volume Paracentesis (12/02/2024 2:13 PM CDT) Report Endoscopy POC Endoscopy Department Report _ Patient Name: Vale Maguire Procedure Date: 12/02/2024 2:13 PM Date of : 1970 Classification: Outpatient Gender: Female Ethnicity: Not or Race: White _ Providers: Eden Caro PA-C, Yousif Garcia MD: Procedure: Paracentesis (Repeat) Indications: Ascites, [...] the procedure. Procedure Code(s): --- Professional --- 71643, Abdominal paracentesis (diagnostic or therapeutic); with imaging guidance Diagnosis Code(s): --- Professional --- K70.31, Alcoholic cirrhosis of liver with ascites R18.8, Other ascites K74.60, Unspecified cirrhosis of liver K76.6, Portal hypertension CPT copyright 2021 [employer]. All rights reserved. The codes documented in this report are preliminary and upon assembly stock supervisor review may be revised to meet current compliance requirements. Eden Caro PA-C 12/02/2024 2:36:43 PM This report has been signed electronically. Yousif Paz, Note Initiated On: 12/02/2024 2:13 PM Number of Addenda: [address] [employer]ATION 12/02/2024 2:13 PM CDT us Eden Caro PA-C GI PROCEDURE ORDERABLES Edited Result - Final [facility] * PROBRAIN NATRIURETIC PEPTIDE N TERMINAL (12/02/2024 11:32 AM CDT) NT-proBNP 98 0 - 124 pg/mL 12/05/2024 10:04 AM CDT [employer] ([facility]) Comment: REFERENCE INTERVAL: NT-Probnp Natriuretic Peptide Access complete set of age- and/or gender-specific reference intervals for this test in the [facility] Laboratory Test Directory ([employer]). Performed By: [facility] [employer] [address] [place] [address] Butt Sawyer: Kulwant Coker MD, PhD CLIA Number: [id number] Blood BLOOD SPECIMEN / Unknown Venipuncture / Unknown 12/02/2024 11:32 AM CDT 12/02/2024 11:40 AM CDT Eden Caro PA-C LAB - CHEMISTRY ORDERAB LES Final Result [facility] ([facility]) [address] [place] [address] * (ABNORMAL) BASIC METABOLIC PANEL (CALCIUM TOTAL) (12/02/2024 11:32 AM CDT) BUN 23 7 - 26 mg/dL 12/02/2024 12:15 PM [facility] Creatinine 1.18(H) 0.56 - 0.96 mg/dL 12/02/2024 12:15 PM [facility] Sodium 129(L) 136 - 145 mmol/L 12/02/2024 12:15 PM [facility] Potassium 4.0 3.5 - 4.5 mmol/L 12/02/2024 12:15 PM [facility] Chloride 104 98 - 107 mmol/L 12/02/2024 12:15 PM [facility] CO2 19(L) 22 - 29 mmol/L 12/02/2024 12:15 PM [facility] Glucose 89 70 - 99 mg/dL 12/02/2024 12:15 PM [facility] Calcium 8.6 8.4 - 10.2 mg/dL 12/02/2024 12:15 PM [facility] Anion Gap 6 6 - 16 12/02/2024 12:15 PM [facility] BUN/Creatinine Ratio 19 7 - 23 12/02/2024 12:15 PM [facility] Osmolality Calculated 271(L) 275 - 295 mOsm/kg 12/02/2024 12:15 PM [facility] eGFR by CKD-EPI 55(L) >=90 mL/min/1.7 3 m2 12/02/2024 12:15 PM [facility] Comment:Estimated Glomerular Filtration Rate (eGFR) calculated using the CKD-EPI Creatinine Equation (2020), per the National Kidney Foundation and [place] recommendations. Blood BLOOD SPECIMEN / Unknown Venipuncture / Unknown 12/02/2024 11:32 AM CDT 12/02/2024 11:44 AM CDT us Eden Caro PA-C LAB - CHEMISTRY ORDERAB LES Final Result [facility] [address] [place] [address], [facility] [phone] * (ABNORMAL) HEPATIC FUNCTION PANEL (12/02/2024 11:32 AM T) Protein Total 6.5 6.0 - 8.3 g/dL 025 12:15 PM [facility] Albumin 3.1(L) 3.4 - 5.0 g/dL 12/02/2024 12:15 PM [facility] Bilirubin Total 3.1(H) 0.2 - 1.2 mg/dL 06/2024 12:15 PM [facility] Bilirubin Conjugated 0.8(H) 0.1 - 0.5 mg/dL 12/02/2024 12:15 PM [facility] Bilirubin Unconjugated 2.3 Unconjugated Bilirubin is a calculated value: Reference ranges have not been established. mg/dL 12/02/2024 12:15 PM [facility] Alkaline Phosphatase 148 40 - 150 U/L 12/02/2024 12:15 PM [facility] ALT 15 5 - 55 U/L 12/02/2024 12:15 PM [facility] AST 31 5 - 34 U/L 12/02/2024 12:15 PM [facility] Albumin/Globulin Ratio 0.9(L) 1.1 - 2.3 12/02/2024 12:15 PM CDT [facility] Blood BLOOD SPECIMEN / Unknown Venipuncture / Unknown 12/02/2024 11:32 AM CDT 12/02/2024 11:44 AM CDT Eden Yadav Gordo LEONARD LAB - CHEMISTRY ORDERAB LES Final Result Performing Organization Address City/[facility]/ZIP Co de Phone Number [facility] [address] [place] [address], [facility] [phone] * (ABNORMAL) HEPATITIS A ANTIBODY (12/02/2024 11:32 AM CDT) Hepatitis A Virus Antibody Total Positive( A) Negative 12/04/2024 9:05 AM CDT [employer] ([facility]) Comment: The positive anti-HAV is consistent with recent or remote Hepatitis A infection or antibody response to HAV vaccination. False positive anti-HAV can occur. Performed By: [facility] [address] [place] [address] Butt Sawyer: Kulwant Coker MD, PhD CLIA Number: [id number] Blood BLOOD SPECIMEN / Unknown Venipuncture / Unknown 12/02/2024 11:32 AM CDT 12/02/2024 11:40 AM CDT Eden Yadav Gordo LEONARD LAB - CHEMISTRY ORDERAB LES Final Result Performing Organization Address City/[facility] Co de Phone Number [employer] [facility]) [address] [place] [address] * PROTEIN BODY FLUID (12/02/2024 11:07 AM CDT) Protein Fluid 1.6 Not Established For Fluids g/dL 12/02/2024 11:51 AM CDT [facility] Fluid Type Peritoneal Fluid 12/02/2024 11:51 AM CDT [facility] Fluid PERITONEAL FLUID / Unknown Collection / Unknown 12/02/2024 11:07 AM CDT 12/02/2024 11:26 AM CDT Narrative [facility] - 12/02/2024 11:51 AM CDT The analytical performance of this test has been independently validated by the laboratory. A reference range has not been established for this fluid. Comparison of this result with the concentration in blood, serum or plasma is recommended. Eden Yadav JeannetteeloisaPrince PA-C LAB - BODY FLUID ORDERA BLES Final Result Performing Organization Address [facility]/ZIP Co de Phone Number [address] [address], [facility] [phone] * ALBUMIN BODY FLUID (12/02/2024 11:07 AM CDT) Albumin Fluid 0.8 g/dL 12/02/2024 11:51 AM CDT [facility] Fluid Type Peritoneal Fluid 12/02/2024 11:51 AM CDT [facility] Fluid PERITONEAL FLUID / Unknown Collection / Unknown 12/02/2024 11:07 AM CDT 12/02/2024 11:26 AM CDT Narrative [facility] - 12/02/2024 11:51 AM CDT The analytical performance of this test has been independently validated by the laboratory. A reference range has not been established for this fluid. Comparison of this result with the concentration in blood, serum or plasma is recommended. Eden Patelte PA-C LAB - BODY FLUID ORDERA BLES Final Result Performing Organization Address City/[facility]/ZIP Co de Phone Number [address] [address], [facility] [phone] * Large Volume Paracentesis (11/25/2024 1:34 PM CDT) Report Endoscopy POC Endoscopy Department Report __ _ Patient Name: Vale Maguire Procedure Date: 11/25/2024 1:34 PM Date [...] the procedure. Procedure Code(s): --- Professional --- 33457, Abdominal paracentesis (diagnostic or therapeutic); with imaging guidance Diagnosis Code(s): --- Professional --- K70.31, Alcoholic cirrhosis of liver with ascites R18.8, Other ascites K74.60, Unspecified cirrhosis of liver K76.6, Portal hypertension CPT copyright 2021 [employer]. All rights reserved. The codes documented in this report are preliminary and upon assembly stock supervisor review may be revised to meet current compliance requirements. Eden Caro PA-C 11/25/2024 1:40:14 PM This report has been signed electronically. Saad Villafuerte MD Note Initiated On: 11/25/2024 1:34 PM Number of Addenda: [address] [employer] 11/25/2024 1:34 PM CDT Eden Caro PA-C GI PROCEDURE ORDERABLES Edited Result - Final [facility] * Large Volume Paracentesis (11/11/2024 12:43 PM CDT) Report Endoscopy POC Endoscopy Department Report _ Patient Name: Vale Maguire Procedure Date: 11/11/2024 12:43 PM Date [...] the procedure. Procedure Code(s): --- Professional --- 83553, Abdominal paracentesis (diagnostic or therapeutic); with imaging guidance Diagnosis Code(s): --- Professional --- K70.31, Alcoholic cirrhosis of liver with ascites R18.8, Other ascites K74.60, Unspecified cirrhosis of liver K76.6, Portal hypertension CPT copyright 2021 [employer]. All rights reserved. The codes documented in this report are preliminary and upon assembly stock supervisor review may be revised to meet current compliance requirements. Eden Caro PA-C 11/11/2024 12:46:07 PM This report has been signed electronically. Luis Lopez, Note Initiated On: 11/11/2024 12:43 PM Number of Addenda: [address] [employer] 11/11/2024 12:4 3 PM CDT Eden Caro PA-C GI PROCEDURE ORDERABLES Edited Result - Final [facility] [employer] * EGD (11/05/2024 11:51 AM CDT) Report Endoscopy POC Endoscopy Department Report _ Patient Name: Vale Maguire Procedure Date: 11/05/2024 11:51 AM Date of [...] non-kirkpatrick portions. Procedure Code(s): --- Professional --- 00942, Esophagogastroduo denoscopy, flexible, transoral; with band ligation of esophageal/gastri c varices Diagnosis Code(s): --- Professional --- I85.00, Esophageal varices without bleeding K76.6, Portal hypertension K31.89, Other diseases of stomach and duodenum Z13.810, Encounter for screening for upper gastrointestinal disorder CPT copyright 2021 [employer]. All rights reserved. The codes documented in this report are preliminary and upon assembly stock supervisor review may be revised to meet current compliance requirements. Poppy Richmond, 11/05/2024 12:25:36 PM Note Initiated On: 11/05/2024 11:51 AM Number of Addenda: [id number] [place] [address] [employer] 11/05/2024 11:5 1 AM CDT Poppy Richmond MD GI PROCEDURE ORDERABLES Edite d Result - Final [facility] * Large Volume Paracentesis (11/04/2024 1:14 PM CDT) Report Endoscopy POC Endoscopy Department Report _ Patient Name: Vale Maguire Procedure Date: 11/04/2024 1:14 PM Date [...] the procedure. Procedure Code(s): --- Professional --- 14479, Abdominal paracentesis (diagnostic or therapeutic); with imaging guidance Diagnosis Code(s): --- Professional --- K70.31, Alcoholic cirrhosis of liver with ascites R18.8, Other ascites K74.60, Unspecified cirrhosis of liver K76.6, Portal hypertension CPT copyright 2021 [employer]. All rights reserved. The codes documented in this report are preliminary and upon assembly stock supervisor review may be revised to meet current compliance requirements. Eden Caro PA-C 11/04/2024 1:17:44 PM This report has been signed electronically. __ Saad Villafuerte MD Note Initiated On: 11/04/2024 1:14 PM Number of Addenda: [address] [employer] 11/04/2024 1:14 PM CDT Eden Caro PA-C GI PROCEDURE ORDERABLES Edited Result - Final [facility] * Large Volume Paracentesis (10/28/2024 9:42 AM CDT) Report Endoscopy POC Endoscopy Department Report _ Patient Name: Vale Maguire Procedure Date: 10/28/2024 9:42 AM Date [...] the procedure. Procedure Code(s): --- Professional --- 91084, Abdominal paracentesis (diagnostic or therapeutic); with imaging guidance Diagnosis Code(s): --- Professional --- R18.8, Other ascites CPT copyright 2021 [employer]. All rights reserved. The codes documented in this report are preliminary and upon assembly stock supervisor review may be revised to meet current compliance requirements. Luis Lopez, 10/28/2024 12:36:23 PM Note Initiated On: 10/28/2024 9:42 AM Number of Addenda: [phone] [place] [address] [employer]ATION 10/28/2024 9:42 AM CDT us Eden Caro PA-C GI PROCEDURE ORDERABLES Edited Result - Final [facility] * (ABNORMAL) HEMOGLOBIN A1C (HgbA1C) (05/17/2024 12:29 PM BACK [facility]EDGER) Hemoglobin A1c <4.2(L) 4.8 - 5.6 % [facility] ACCOUNT BILL Comment: Verified by repeat analysis Prediabetes: 5.7 - 6.4 Diabetes: >6.4 Glycemic control for adults with diabetes: <7.0 Blood BLOOD SPECIMEN / Unknown 05/17/2024 12:29 PM BACK [facility]GER 05/17/2024 Narrative [facility] ACCOUNT BILL - 05/18/2024 11:10 AM BACK WEDGER Performed at: [address] [id number] Stenotypist: Bubba Noel PhD, Phone: [phone] us Arcelia Whitney [employer]CH[employer] LAB - CHEMISTRY ORDE RABLES Final Result Performing Organization Address City/[facility]/ZIP Co de Phone Number [facility] ACCOUNT BILL [address] [place] [address] * HEPATITIS SCREEN ACUTE (06/11/2023 11:38 PM CDT) HAV Antibody IgM Non Reactive Non Reactive 06/12/2023 10:53 AM CDT [facility] HBsAg Non Reactive Non Reactive 06/12/2023 10:53 AM CDT [facility] HBc Antibody IgM Non Reactive Non Reactive 06/12/2023 10:53 AM CDT [facility] HCV Antibody Screen Non Reactive Non Reactive 06/12/2023 10:53 AM CDT [facility] Blood BLOOD SPECIMEN / Unknown Lab Venipuncture / Unknown 06/11/2023 11:38 PM CDT 06/11/2023 11:54 PM CDT Narrative [facility] - 06/12/2023 10:53 AM CDT Non Reactive - Antibodies to Hepatitis C virus (HCV) were not detected, result does not exclude early acute HCV infection. Deb Winn DO LAB - CHEMISTRY ORDER HUSSEIN Final Result Performing Organization Address [facility] Co de Phone Number [facility] [address] [place], [place] [id number] * HIV-1 HIV-2 ANTIBODY + HIV P24 AG PANEL (06/19/2021 4:27 PM CDT) [facility] HIV1/2 Ab + P24 Ag Non Reactive Non Reactive 06/19/2021 10:15 PM CDT [facility] Blood BLOOD SPECIMEN / Unknown Venipuncture / Unknown 06/19/2021 4:27 PM CDT 06/19/2021 4:39 PM CDT Narrative [facility] - 06/19/2021 10:15 PM CDT No Laboratory evidence of HIV infection. 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 [facility] [address] [place] [address] PCP - General 10/07/24 Arcelia Whitney, JET BLADE POLISHER-ORTHOPEDIC MECHANIC [facility] [address] [place] [address] Nurse Practitioner Family Medicine 06/21/24
--- OUTSIDE RECORDS SUMMARY | 2025-01-27 13:53 | XMS_ITS | Encounter Summary ---
Author Organization [facility] Health Address [address] [place] [address] Care Team Providers Care Trading Analyst Name Role Phone Unavailable Primary Care Provider Unavailabl e Prior Encounters Date Type Department Care Team Description 04/19/2019 Converted CPS Chart Documents [facility] [id number] [address] [address] [phone] <No scans attached> 04/19/2019 Converted 13x Documents [facility] [address], [place] [phone] <No scans attached> Plan of Treatment Not on file Procedures Procedure Name Priority Date/Time Associated Diagnosis Comments 4 CORE BUILDUP, INCLUDING ANY PINS WHEN REQUIRED Routine 11/26/2019 2:00 AM CDT 4 CEMENT CROWN Routine 11/26/2019 2:00 AM CDT 4 ENDODONTIC THERAPY, PREMOLAR TOOTH (EXCLUDING FINAL SYNAGOGUE) Routine 11/26/2019 2:00 AM CDT 4 CERECFIRED CROWNPOST Routine 0 2:00 AM CDT NC X-RAY Routine 11/26/2019 2:00 AM CDT 4 LIMITED ORAL EVALUATION - PROBLEM FOCUSED Routine 11/15/2019 2:00 AM CDT PANORAMIC RADIOGRAPHIC IMAGE Routine 11/15/2019 2:00 AM CDT BITEWINGS - TWO RADIOGRAPHIC IMAGES Routine 11/15/2019 2:00 AM CDT Visit Diagnoses Not on file
--- NOTE | 2025-01-27 15:20 | ADMGEN ---
This patient, Nasreen Orozco, was admitted to 3 [facility] Surg Room 302-01. Patient/family oriented to hospital policies and general routines including ID bracelet, bed and alarms, visiting hours, pain management, procedures, bathroom and other care routines, personal items, smoking policy, room service/diet, and visiting hours. Report called from Nereyda. Information on how to activate the Rapid Response Team has been discussed. Patient/Family are encouraged to report perceived risks to care and to ask questions if they do not understand what they are told or what they should do.
--- OUTSIDE RECORDS SUMMARY | 2025-01-27 15:43 | XMS_ITS | Encounter Summary ---
Author Organization [facility] Address [address] [place] [address] Care Team Providers Care Gas Well Pumper Name Role Phone Jhonny, Tri Shirley DO Primary Care Provider [phone] Encounter Details Date Type Department Care Team (Late st Contact Info) Description 12/22/2003 Outpatient Historical [facility] Internal Medicine [facility] [place] [facility] [address] [phone] Carly Armijo MD Social History Tobacco Use Types Packs/Day Years Used Date Smoking Tobacco: Never Assessed Comments Unknown Sex and Gender Information Value Date Recorded Sex Assigned at Not on file Legal Sex Female 6:00 PM 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
--- OUTSIDE RECORDS SUMMARY | 2025-01-27 15:43 | XMS_ITS | Encounter Summary ---
Author Organization [facility] Health Address [address] [place] [address] Care Team Providers Care Molder Foam Rubber Name Role Phone Jazmyne Jordan MD Primary Care Provider [phone] Berta Marquez RN Unavailable [phone] Arcelia Whitney SUPERVISOR PAINT ROLLER COVERS-GENERAL LABOR FORKLIFT OPERATOR Unavailable [phone] Adelaide Tse MD Primary Care Provider Unava ilable Encounter Details Date Type Department Care Team (Late st Contact Info) Description 02/10/2024 Telephone [facility] INTERNAL MED [address] [place] [phone] Trish Velarde MD [address] [place] [address] Social History Tobacco Use Types Packs/Day Years [...] medical care, and heating? Somewhat hard 02/14/2024 [facility] Occupat ional Health - Occupational Stress [...] place to sleep or slept in a fdc (including now)? No 01/08/2024 Housing Stability Vital [...] were you homeless or living in a fdc (including now)? No 02/14/2024 Comments No Sex and Gender Information Value Date Recorded Sex Assigned at Not on file Legal Sex Female 5:09 AM PRIVATE INVESTIGATOR Gender Identity Not on file Sexual Orientation [...] Velarde MD - 02/10/2024 5:03 PM CST [facility] Transfer Call Documentation Date:02/10/2024 Time:5:04 PM Patient: Nasreen Orozco : 1970 Referring Facility Name:[facility] Reason for Transfer: Autoimmune hepatitis with cirrhosis. Has pancytopenia. Brief Description (including applicable labs, imaging, consultations): 53yo female with known h/o hypothyroidism, liver cirrhosis and ascites, h/o EtOH use, ?auto-immune heaptitis (only TAB positive), presented with decompensated liver cirrhosis. Her condition getting worse and needs once a week paracentesis. Needs to be transferred to [facility] forlong-term solution for her hepatic failure such as TIPS. [facility] liver team following pt. [facility] hepatology accepted pt as an consult. Patient needs on arrival to [facility]: Medicine admissions resident (ask pattern generator operator for Medicine Admission) to be notified of arrival. Consultation to (N/A if blank): [facility] hepatology I have accepted this patient for transfer to [facility]. If patient awaiting bed for >24hours, an update on patient's clinical condition is requested. Signed:Trish Velarde MD 02/10/2024 ATE INVESTIGATOR documented in this encounter Plan of Treatment Upcoming Encounters Date Type Department Care Team (Late st Contact Info) Description 02/03/2025 12:40 PM PRIVATE INVESTIGATOR Appointment [facility] [address] [place] [phone] Caio Rogers MD [address] [place] [phone] 03/28/2025 3:00 PM PRIVATE INVESTIGATOR Office Visit [facility] - Pulmonology [address] [place] [address], [place] [phone] Jake Grijalva MD [address] [place] [address] DIV OF [facility] [address] 05/31/2025 10:30 AM PRIVATE INVESTIGATOR Office Visit [facility] - GI [address] [place] [address], [place] [phone] Caio Rogers MD [address] [place] [phone] documented as of this encounter Visit Diagnoses Not on filedocumented in this encounter Additional Health Concerns Infection Onset Date Last Indicated Resolved Time COVID-19 Under Investigation 03/29/2024 03/29/2024 03/30/2024 12:11 AM PRIVATE INVESTIGATOR VRE 08/26/2024 08/26/2024 09/20/2024 10:1 2 AM CDT VRE Hx Comment:Urine culture - 08/26/24 08/26/2024 09/20/2024 ESBL GNR 12/13/2024 12/13/2024 MDRO 12/13/2024 12/13/2024 documented as of this encounter Care Teams Molder Foam Rubber Relationship Specialty Start Date End Date Jazmyne Jordan MD [address] [place] [address] PCP - General Family Medicine 05/17/24 10/06/24 [place] [address] [address] PCP - General 10/07/24 Berta Marquez RN International ManagerDobie Worker 05/27/24 06/23/24 Arcelia Whitney APRN-GENERAL LABOR FORKLIFT OPERATOR [address] [place] [phone] Nurse Practitioner Family Medicine 06/21/24 documented as of this encounter
--- OUTSIDE RECORDS SUMMARY | 2025-01-27 15:43 | XMS_ITS | Encounter Summary ---
Author Organization [facility] Address [address] [place] [address] Care Team Providers Care Patient Financial Services Manager Name Role Phone Jhonny, Tritrinidad Shirley DO Primary Care Provider [phone] Encounter Details Date Type Department Care Team (Latest Contact Info) Description 12/19/2003 Outpatient Historical [facility] Carly Arreguin MD BENIGN NEOPLASM THYROID (Primary Dx) Social History Tobacco Use Types Packs/Day Years Used Date Smoking Tobacco: Never Assessed Comments Unknown Sex and Gender Information Value Date Recorded Sex Assigned at Not on file Legal Sex Female 6:00 PM WATCH LEADER Gender Identity Not on file Sexual Orientation [...] COVID-19 05/20/2024 05/20/2024 05/20/2024 12:4 3 PM WATCH LEADER documented as of this encounter Care Teams Patient Financial Services Manager Relationship Specialty Start Date End Date Tri Barry DO PCP - General Family Practice 02/09/21 12/24/22 documented as of this encounter
--- OUTSIDE RECORDS SUMMARY | 2025-01-27 15:43 | XMS_ITS | Encounter Summary ---
Author Organization [facility] Address [address] [place] [address] Care Team Providers Care Primary Teaching Assistant Name Role Phone Jhonny, Tri Shirley DO Primary Care Provider [phone] Encounter Details Date Type Department Care Team (Late st Contact Info) Description 05/26/2006 Outpatient Historical [facility] Internal Medicine [address] [place] [address] Bret Trotter MD [address] [place] [phone] Social History Tobacco Use Types Packs/Day Years Used Date Smoking Tobacco: Never Assessed Comments Unknown Sex and Gender Information Value Date Recorded Sex Assigned at Not on file Legal Sex Female 6:00 PM RADIO ASSEMBLER Gender Identity Not on file Sexual [...] COVID-19 05/20/2024 05/20/2024 05/20/2024 12:4 3 PM RADIO ASSEMBLER documented as of this encounter Care Teams Primary Teaching Assistant Relationship Specialty Start Date End Date Tri Barry DO PCP - General Family Practice 02/09/21 12/24/22 documented as of this encounter
--- OUTSIDE RECORDS SUMMARY | 2025-01-27 15:43 | XMS_ITS | Encounter Summary ---
Author Organization [facility] Address [address] [place] [address] Care Team Providers Care Gas Jockey Name Role Phone Jhonny, Tritrinidad Shirley DO Primary Care Provider [phone] Encounter Details Date Type Department Care Team (Latest Contact Info) Description 08/03/2004 Outpatient Historical HIS [facility] TAMERA Plascencia, Felicita Burris MD [address] [address] HYPOTHYROIDISM NOS (Primary Dx) Social History Tobacco Use Types Packs/Day Years Used Date Smoking Tobacco: Never Assessed Comments Unknown Sex and Gender Information Value Date Recorded Sex Assigned at Not on file Legal Sex Female 6:00 PM ZIPPER LINING FOLDER Gender Identity Not on file Sexual Orientation [...] CHEMISTRY ORDERABLES Final Result Performing Organization Address City/[facility] Co de Phone Number INTERFACE SYSTEM Refer to clinic/hospital department * TSH (08/03/2004 2:16 PM CDT) TSH 3.50 0.27 - 4.20 uU/mL INTERFACE SYSTEM 08/03/2004 2:16 PM CDT Felicita Plascencia MD CHEMISTRY ORDERABLES Final Result Performing Organization Address City/[facility] de Phone Number INTERFACE SYSTEM Refer to clinic/hospital department * T4 FREE (08/03/2004 2:16 PM CDT) T4 FREE 1.2 0.9 - 1.7 ng/dL INTERFACE SYSTEM 08/03/2004 2:16 PM CDT Felicita Plascencia MD CHEMISTRY ORDERABLES Final Result Performing Organization Address [facility] Phone Number INTERFACE SYSTEM Refer to [...] COVID-19 05/20/2024 05/20/2024 05/20/2024 12:4 3 PM ZIPPER LINING FOLDER documented as of this encounter Care Teams Gas Jockey Relationship Specialty Start Date End Date Tri Barry DO PCP - General Family Practice 02/09/21 12/24/22 documented as of this encounter
--- OUTSIDE RECORDS SUMMARY | 2025-01-27 15:43 | XMS_ITS | Encounter Summary ---
Author Organization [facility] Address [address] [place] [address] Care Team Providers Care Mail Truck Driver Name Role Phone Jhonny, Tri Fern FONSECA Primary Care Provider [phone] Encounter Details Date Type Department Care Team (Latest Contact Info) Description 11/23/2008 Outpatient Historical [facility] Prasanth Shukla MD [address] [address] Calculus of Kidney Social History Tobacco Use Types Packs/Day Years Used Date Smoking Tobacco: Never Assessed Comments Unknown Sex and Gender Information Value Date Recorded Sex Assigned at Not on file Legal Sex Female 6:00 PM BOILER SHOP SUPERVISOR Gender Identity Not on file Sexual [...] AM CDT Narrative 11/23/2008 2:29 PM CDT [facility] [address] [place] [place], [place] [address] Admit Date: 11/23/2008 VALE DALE Sex: F Admit Prov: PRASANTH SHUKLA Date: 1970 Primary Care Prov: PCP, UNKNOWN; LUCRETIA CMRN: [id number] EM Burris N: [id number] Room: [facility] IMAGING SERVICES Ordering Prov: N/A Accession Number: [id number] Interpretation Exam: ABDOMEN AP (KUB) . Nov [...] Procedure Note Dennys Asencio MD - 11/23/2008 [facility] [address] [place], [place] [address] Admit Date: 11/23/2008 VALE DALE Sex: F Admit Prov: PRASANTH SHUKLA Date:1970 Primary Care Prov: PCP, UNKNOWN; LUCRETIA KELSIN: [id number] EM Burris N: [id number] Room: [facility] SERVICES Ordering Prov: N/A Interpretation Exam: [...] COVID-19 05/20/2024 05/20/2024 05/20/2024 12:4 3 PM BOILER SHOP SUPERVISOR documented as of this encounter Care Teams Mail Truck Driver Relationship Specialty Start Date End Date Tri Barry DO PCP - General Family Practice 02/09/21 12/24/22 documented as of this encounter
--- OUTSIDE RECORDS SUMMARY | 2025-01-27 15:43 | XMS_ITS | Clinical Summary ---
Author Organization [facility] Address [address] [place] [address] Care Team Providers Care Dairy Nutritionist Name Role Phone Arcelia Whitney MIKAYLA-DIRECTOR OF WOMEN'S SERVICES Unavailable [phone] Adelaide Tse MD Primary Care Provider Cameron hilton Source Comments [facility],non-owned Affiliates and Associated Physician Practices is amultiple site organization consisting of ambulatory clinics and hospital sitesin [place], [place], [place] and [place]. This disclosure is being madepursuant to the Care Everywhere program and may not contain all information available regarding this patient. Last updated 17.[facility] Allergies Active Allergy Reactions Criticality Noted Date [...] - Etiology: alcohol + MASLD - Primary Nurse Orthopedic: Dr Richmond - HE: known history, on [...] not have adequate social support, lives at [facility] currently PLAN: - holding home diuretics, coreg 2/2 ALIREZA - plan for LVP today - continue home lactulose, rifaximin Assessment & Plan (12/15/2024 1:23 PM CDT): MELD 3.0 was 23 at 12/15/2024 5:25 AM MELD-Na was 22 at 12/15/2024 5:25 AM MELD was 18 at 12/15/2024 5:25 AM Age at listing (hypothetical): 54 years Sex: Female - Etiology: alcohol + MASLD - Primary Nurse Orthopedic: Dr Richmond - HE: known history, on [...] not have adequate social support, lives at [facility] currently PLAN: - holding home diuretics, coreg 2/2 ALIREZA - plan for LVP today - continue home lactulose, rifaximin Assessment & Plan (12/15/2024 1:17 PM CDT): MELD 3.0 was 22 at 12/13/2024 1:11 PM MELD-Na was 21 at 12/13/2024 1:11 PM MELD was 17 at 12/13/2024 1:11 PM Age at listing (hypothetical): 54 years Sex: Female - Etiology: alcohol + MASLD - Primary Nurse Orthopedic: Dr Richmond - HE: known history, on [...] not have adequate social support, lives at [facility] currently PLAN: - holding home diuretics, coreg [...] - Etiology: alcohol + MASLD - Primary Nurse Orthopedic: Dr Richmond - HE: known history, on [...] - Etiology: alcohol + MASLD - Primary Nurse Orthopedic: Dr Richmond - HE: known history, on [...] - Etiology: alcohol + MASLD - Primary Nurse Orthopedic: Dr Richmond - HE: known history, on [...] Dr. Mahoney if nsaids do not help. ([employer], put in for scanning). Vitamin B12 deficiency [...] - 12/15/2024 5:33 PM CDT Hospital Encounter [facility] 7S ACUTE [address] [place] [address] Kadi Ruiz MD Yogendran, Rajiv L, MD Agbim, Uchenna A, MD Gastroenterology Discharge Disposition: Penitentiary or Supportive Care 12/13/2024 11:00 AM CDT - 12/13/2024 11:15 AM CDT Surgery [facility] ENDOSCOPY [address] [place] [address] Eden Caro PA-C PARACENTESIS ABDOMEN (PERCUTANEOUS) 12/13/2024 10:54 AM CDT - 12/13/2024 11:25 AM CDT Hospital Encounter [facility] ENDOSCOPY [address] [place] [address] Eden Caro PA-C Surgery General Discharge Disposition: Still a Patient 12/12/2024 6:42 PM CDT - 12/12/2024 8:37 PM CDT Emergency ER at [address] [address] Chantale Flores, Chest pain, unspecified type Discharge Disposition: Home or Self Care 12/12/2024 Travel 12/06/2024 1:30 PM CDT Office Visit [facility] - Pulmonology [address], [facility] [place] [address] Jake Grijalva MD Hepatopulmonary syndrome (HCC) (Primary Dx); Decompensated hepatic cirrhosis (HCC); MetALD; Ascites due to alcoholic cirrhosis (HCC); Esophageal varices determined by endoscopy (HCC); PALUMBO (dyspnea on exertion); Hypoxia; Chronic respiratory failure with hypoxia (HCC) 12/06/2024 Travel 12/02/2024 10:23 AM CDT - 12/02/2024 12:36 PM CDT Hospital Encounter [facility] [address] [place] [address] Eden Caro PA-C Surgery General Discharge Disposition: Home or Self Care 12/02/2024 8:25 AM CDT - 12/02/2024 8:40 AM CDT Surgery [facility] ENDOSCOPY [address] [place] [address] Eden Caro PA-C PARACENTESIS ABDOMEN (PERCUTANEOUS) 12/02/2024 Travel 11/30/2024 10:30 AM CDT Office Visit [facility] - GI [address], [place] [address] Poppy Richmond MD Cirrhosis of liver with ascites, unspecified hepatic cirrhosis type (HCC) (Primary Dx); Other ascites; Secondary esophageal varices without bleeding (HCC); Encounter for screening for other viral diseases; Hepatopulmonary syndrome (HCC) 11/30/2024 Travel 11/25/2024 11:00 AM CDT - 11/25/2024 11:15 AM CDT Surgery [facility] ENDOSCOPY [address] [place] [address] Eden Caro PA-C PARACENTESIS ABDOMEN (PERCUTANEOUS) 11/25/2024 10:46 AM CDT - 11/25/2024 1:30 PM CDT Hospital Encounter [facility] [address] [place] [address] Eden Caro PA-C Surgery General Discharge Disposition: Long Term Facility 11/25/2024 Travel 11/11/2024 11:00 AM CDT - 11/11/2024 11:15 AM CDT Surgery [facility] ENDOSCOPY [address] [place] [address] Eden Caro PA-C PARACENTESIS ABDOMEN (PERCUTANEOUS) 11/11/2024 10:06 AM CDT - 11/11/2024 1:31 PM CDT Hospital Encounter [facility] [address] [place] [address] Eden Caro PA-C Surgery General Discharge Disposition: Long Term Facility 11/11/2024 Travel 11/05/2024 11:53 AM CDT Anesthesia Event [facility] ENDOSCOPY [address] [place] [address] Jaime Méndez MD Dobbs, Connie Negrete, FASHION CONSULTANT SELLING-ABRAHAN 11/05/2024 10:30 AM CDT - 11/05/2024 11:00 AM CDT Surgery [facility] ENDOSCOPY [address] [place] [address] Poppy Richmond MD EGD w/ sandra 11/05/2024 9:02 AM CDT - 11/05/2024 1:31 PM CDT Hospital Encounter [facility] [address] [place] [address] Poppy Richmond MD Surgery General Discharge Disposition: Home or Self Care 11/04/2024 8:58 AM CDT - 11/04/2024 11:28 AM CDT Hospital Encounter [facility] [address] [place] [address] Eden Caro PA-C Surgery General Discharge Disposition: Home or Self Care 11/04/2024 8:10 AM CDT - 11/04/2024 8:25 AM CDT Surgery [facility] ENDOSCOPY [address] [place] [address] Eden Caro PA-C PARACENTESIS ABDOMEN (PERCUTANEOUS) 11/04/2024 Telephone [facility] - GI [address] [facility], [facility] [place] [address] Dori Price RN General 11/04/2024 Patient Outreach [facility] ENDOSCOPY [address] [place] [address] Lorri Luu RN Pre-op Instructions 11/04/2024 Travel 10/28/2024 8:18 AM CDT - 10/28/2024 10:49 AM CDT Hospital Encounter [facility] [address] [place] [address] Eden Caro PA-C Surgery General Discharge Disposition: Home or Self Care 10/28/2024 7:55 AM CDT - 10/28/2024 8:10 AM CDT Surgery [facility] ENDOSCOPY [address] [place] [address] Luis Lopez MD PARACENTESIS ABDOMEN (PERCUTANEOUS) 10/28/2024 [...] Recorded Patient Health Questionnaire-2 Score 0 07/02/2024 [employer] [place] [facility] Occupat ional Health - Occupational Stress [...] place to sleep or slept in a jail (including now)? No 01/08/2024 Housing Stability Vital Sign Answer Dale e Recorded In the last 12 months, was t here a time when you were not able to pay the mortgage or rent on time? No 12/14/2024 In the past 12 months, how m any times have you moved where you were living? 0 12/14/2024 At any time in the past 12 m [facility], were you homeless or living in a jail (including now)? No 12/14/2024 Comments No Sex and Gender Information Value Date Recorded Sex Assigned at Not on file Legal Sex Female 5:09 AM [facility] Gender Identity Not on file Sexual Orientation [...] st Contact Info) Description 02/03/2025 12:40 PM [facility] Appointment [facility] CAT SCAN [address] [place] [address] Poppy Richmond MD [address] [place] [phone] 03/28/2025 3:00 PM [facility] Office Visit [facility] - Pulmonology [address] [place] [address], [place] [phone] Jake Grijalva MD [address] [place] [address] OF [facility] [place] [address] 05/31/2025 10:30 AM [facility] Office Visit [facility] - GI [address] [place] [address], [place] [phone] Poppy Richmond MD [address] [place] [phone] Health Maintenance Due Date Last Done Comments [...] AM CDT Other cirrhosis of liver (HCC) FL ABD PARACENTESIS W/IMAGING 12/13/2024 7:00 PM CDT [...] with ascites, unspecified hepatic cirrhosis type (HCC) FL ABD PARACENTESIS W/IMAGING 12/02/2024 10:55 AM CDT [...] with ascites, unspecified hepatic cirrhosis type (HCC) FL ABD PARACENTESIS W/IMAGING 11/25/2024 10:58 AM CDT [...] with ascites, unspecified hepatic cirrhosis type (HCC) FL ABD PARACENTESIS W/IMAGING 11/11/2024 11:31 AM CDT Other ascites EGD Routine 11/05/2024 11:51 AM CDT [place] ED EGD FLEX TRANSORAL DX 11/05/2024 11:48 AM CDT Esophageal varices without bleeding, unspecified esophageal varices type (HCC) Special Needs Message Received: Today Poppy Richmond MD P [facility] Schedulers - Endoscopy Pool Please set [...] hypertension (HCC) Other cirrhosis of liver (HCC) FL ABD PARACENTESIS W/IMAGING 11/04/2024 9:11 AM CDT Other ascites LARGE VOLUME PARACENTESIS Routine 10/28/2024 9:42 AM CDT DIFFERENTIAL MANUAL FLUID Routine 10/28/2024 9:36 AM CDT Other cirrhosis of liver (HCC) CELL COUNT W DIFFERENTIAL FLUID Routine 10/28/2024 9:36 AM CDT Other cirrhosis of liver (HCC) CULTURE FLUID+GRAM STAIN STAT 10/28/2024 9:36 AM CDT Other cirrhosis of liver (HCC) FL ABD PARACENTESIS W/IMAGING 10/28/2024 8:40 AM CDT Other ascites HEMOGLOBIN A1C Routine 05/17/2024 12:29 PM [facility] Hospital discharge follow-up HEPATITIS SCREEN ACUTE STAT [...] growth ARIANA 12/21/2024 2:08 PM CDT [facility] Gram Stain Rare Polymorphonuclear cells 12/21/2024 2:08 PM CDT [facility] Gram Stain No organisms seen 025 2:08 PM CDT [facility] Other PERITONEAL FLUID / Unknown Collection / Unknown 12/15/2024 2:49 PM CDT 12/15/2024 2:53 PM CDT Poppy Richmond MD LAB - MICROBIOLOGY ORDERABLES Final Result Performing Organization Address City/[facility]/ZIP Co de Phone Number [facility]CRO[facility] [address] [place] [address], [facility] [phone] * CULTURE ANAEROBE (12/15/2024 2:45 PM CDT) Culture No anaerobic organisms isolated ARIANA 12/20/2024 8:34 AM CDT [facility] Microbiology PERITONEAL FLUID / Unknown Collection / Unknown 12/15/2024 2:45 PM CDT 12/15/2024 2:53 PM CDT Poppy Richmond MD LAB - MICROBIOLOGY ORDERABLES Final Result Performing Organization Address City/[facility]/ZIP Co de Phone Number [facility] [address] [place] [address], [facility] [phone] * DIFFERENTIAL MANUAL FLUID (12/15/2024 2:44 PM CDT) Only the most recent of6 resultswithin the time period is included. Fluid Source Peritoneal 12/15/2024 3:37 PM CDT [facility] Body Fluid Total Cell Count 200 x10E6/L 12/15/2024 3:37 PM CDT [facility] Neutrophils Fluid Percent 2 % 12/15/2024 3:37 PM CDT [facility] Lymphocytes Fluid Percent 62 % 12/15/2024 3:37 PM CDT [facility] Macrophages Fluid Percent 35 % 12/15/2024 3:37 PM CDT [facility] Mesothelial Cells Fluid Percent 1 % 12/15/2024 3:37 PM CDT [facility] Fluid PERITONEAL FLUID / Unknown Collection / Unknown 12/15/2024 2:44 PM CDT 12/15/2024 2:53 PM CDT [facility] - 12/15/2024 3:37 PM CDT No reference ranges established for body fluid differential cell counts. The test results must be integrated into the clinical context for interpretation. us Poppy Richmond MD LAB - BODY FLUID ORDERABLES F inal Result [address] [address], [facility] [phone] * CELL COUNT W DIFFERENTIAL FLUID (12/15/2024 2:44 PM CDT) Only the most recent of6 resultswithin the time period is included. Fluid Source Peritoneal 12/15/2024 3:38 PM CDT [facility] Fluid Appearance CLEAR 12/15/2024 3:38 PM CDT [facility] Fluid Color YELLOW 12/15/2024 3:38 PM T [facility] Total Nucleated Cells Fluid 79 Reference Range Not Established x10E6/L 12/15/2024 3:38 PM T [facility] RBC Count Fluid <2,000 Reference Range Not Established x10E6/L 12/15/2024 3:38 PM CDT [facility] Fluid PERITONEAL FLUID / Unknown Collection / Unknown 12/15/2024 2:44 PM CDT 12/15/2024 2:53 PM CDT [facility] - 12/15/2024 3:38 PM CDT No reference ranges established for body fluid cell counts. Any reference ranges provided are derived from published literature. The test results must be integrated into the clinical context for interpretation. Poppy Richmond MD LAB - BODY FLUID ORDERABLES F inal Result Performing Organization Address [facility]/ZIP Co de Phone Number [address] [address], [facility] [phone] * (ABNORMAL) PT-INR (12/15/2024 5:25 AM CDT) Only the most recent of5 resultswithin the time period is included. PT 17.5(H) 12.1 - 14.8 Seconds 12/15/2024 6:00 AM CDT [facility] INR 1.5 See Comment 12/15/2024 6:00 AM CDT [facility] Comment:The suggested therap eutic range for standard coumadin (warfarin) therapy is an INR of 2.0-3.0. For high-risk patients (Mechanical Mitral Valve Prosthesis, etc.), the suggested prophylactic therapeutic range is an INR of 2.5-3.5. Blood BLOOD SPECIMEN / Unknown Lab Venipuncture / Unknown 12/15/2024 5:25 AM CDT 12/15/2024 5:34 AM CDT Poppy Richmond MD LAB - COAGULATION ORDERABLES Final Result Performing Organization Address [facility] de Phone Number [address] [address], [facility] [phone] * (ABNORMAL) CBC W AUTO DIFFERENTIAL (12/15/2024 5:25 AM CDT) Only the most recent of6 resultswithin the time period is included. WBC 4.7 4.0 - 10.7 x10E9/L 12/15/2024 5:40 AM CDT [facility] RBC Count 3.14(L) 3.90 - 5.20 x10E12/L 12/15/2024 5:40 AM CDT [facility] Hemoglobin 10.2(L) 11.9 - 15.8 g/dL 12/15/2024 5:40 AM CDT [facility] Hematocrit 31.2(L) 34.8 - 46.1 % 12/15/2024 5:40 AM [facility] MCV 99.4(H) 80.0 - 98.0 fL 12/15/2024 5:40 AM [facility] MCH 32.5 26.7 - 33.6 pg 12/15/2024 5:40 AM [facility] MCHC 32.7 31.7 - 36.3 g/dL 12/15/2024 5:40 AM [facility] RDW-CV 16.6(H) 11.3 - 14.8 % 12/15/2024 5:40 AM [facility] Platelet Count 80(L) 150 - 420 x10E9/L 12/15/2024 5:40 AM [facility] MPV 10.3 7.8 - 11.4 fL 12/15/2024 5:40 AM [facility] Neutrophil % 56.9 41.0 - 74.0 % 12/15/2024 5:40 AM [facility] Lymphocyte % 23.9 17.0 - 47.0 % 12/15/2024 5:40 AM [facility] Monocyte % 13.8(H) 3.0 - 11.0 % 12/15/2024 5:40 AM [facility] Eosinophil % 3.9 0.0 - 7.0 % 12/15/2024 5:40 AM [facility] Basophil % 1.1 0.0 - 1.6 % 12/15/2024 5:40 AM [facility] Immature Granulocytes % 0.4 0.0 - 1.0 % 12/15/2024 5:40 AM [facility] Neutrophil Absolute 2.65 1.60 - 7.50 x10E9/L 12/15/2024 5:40 AM [facility] Lymphocyte Absolute 1.11 1.00 - 4.40 x10E9/L 12/15/2024 5:40 AM [facility] Monocyte Absolute 0.64 0.15 - 1.00 x10E9/L 12/15/2024 5:40 AM [facility] Eosinophil Absolute 0.18 0.00 - 0.60 x10E9/L 12/15/2024 5:40 AM [facility] Basophil Absolute 0.05 0.00 - 0.13 x10E9/L 12/15/2024 5:40 AM [facility] Blood BLOOD SPECIMEN / Unknown Lab Venipuncture / Unknown 12/15/2024 5:25 AM CDT 12/15/2024 5:34 AM CDT us Poppy Richmond MD LAB - HEMATOLOGY ORDERABLES F inal Result [facility] [address] [place] [address], [facility] [phone] * (ABNORMAL) COMPREHENSIVE METABOLIC PANEL (12/15/2024 5:25 AM CDT) Only the most recent of5 resultswithin the time period is included. BUN 22 7 - 26 mg/dL 12/15/2024 6:04 AM [facility] Creatinine 1.18(H) 0.56 - 0.96 mg/dL 12/15/2024 6:04 AM [facility] Sodium 132(L) 136 - 145 mmol/L 12/15/2024 6:04 AM [facility] Potassium 4.2 3.5 - 4.5 mmol/L 12/15/2024 6:04 AM [facility] Chloride 104 98 - 107 mmol/L 12/15/2024 6:04 AM [facility] CO2 22 22 - 29 mmol/L 12/15/2024 6:04 AM [facility] Glucose 102(H) 70 - 99 mg/dL 12/15/2024 6:04 AM [facility] Calcium 8.4 8.4 - 10.2 mg/dL 12/15/2024 6:04 AM [facility] Protein Total 6.0 6.0 - 8.3 g/dL 12/15/2024 6:04 AM [facility] Albumin 2.7(L) 3.4 - 5.0 g/dL 12/15/2024 6:04 AM [facility] Bilirubin Total 3.8(H) 0.2 - 1.2 mg/dL 12/15/2024 6:04 AM [facility] Alkaline Phosphatase 106 40 - 150 U/L 12/15/2024 6:04 AM [facility] ALT 19 5 - 55 U/L 12/15/2024 6:04 AM [facility] AST 32 5 - 34 U/L 12/15/2024 6:04 AM [facility] Anion Gap 6 6 - 16 12/15/2024 6:04 AM [facility] BUN/Creatinine Ratio 19 7 - 23 12/15/2024 6:04 AM [facility] Osmolality Calculated 278 275 - 295 mOsm/kg 12/15/2024 6:04 AM [facility] Albumin/Globulin Ratio 0.8(L) 1.1 - 2.3 12/15/2024 6:04 AM [facility] eGFR by CKD-EPI 55(L) >=90 mL/min/1.7 3 m2 12/15/2024 6:04 AM [facility] Comment:Estimated Glomerular Filtration Rate (eGFR) calculated using the CKD-EPI Creatinine Equation (2020), per the National Kidney Foundation and [place] Society [employer] Nephrology recommendations. Blood BLOOD SPECIMEN / Unknown Lab Venipuncture / Unknown 12/15/2024 5:25 AM CDT 12/15/2024 5:34 AM CDT us Poppy Richmond MD LAB - CHEMISTRY ORDERABLES Fi nal Result [facility] [address] [place] [address], [facility] [phone] * PHOSPHORUS BLOOD (12/15/2024 5:25 AM CDT) Phosphorus 3.4 2.9 - 5.1 mg/dL 12/15/2024 6:04 AM [facility] Blood BLOOD SPECIMEN / Unknown Lab Venipuncture / Unknown 12/15/2024 5:25 AM CDT 12/15/2024 5:34 AM CDT us Poppy Richmond MD LAB - CHEMISTRY ORDERABLES Fi nal Result Performing Organization Address City/[facility]/ZIP Co de Phone Number [address] [address], [facility] [phone] * MAGNESIUM BLOOD (12/15/2024 5:25 AM CDT) Only the most recent of2 resultswithin the time period is included. Magnesium 2.3 1.6 - 2.6 mg/dL 12/15/2024 6:04 AM CDT [facility] Blood BLOOD SPECIMEN / Unknown Lab Venipuncture / Unknown 12/15/2024 5:25 AM CDT 12/15/2024 5:34 AM CDT us Poppy Richmond MD LAB - CHEMISTRY ORDERABLES nal Result Performing Organization Address [facility] Co de Phone Number [address] [address], [facility] [phone] * CARDIAC EKG ORDER (12/14/2024 3:17 PM CDT) Only the most recent of2 resultswithin the time period is included. Narrative 12/14/2024 3:17 PM CDT Ordered by an unspecified provider. Scanned Document CARDIAC SERVICES ORDERABLES Fin al Result * (ABNORMAL) URINALYSIS REFLEX MICROSCOPIC REFLEX CULTURE (12/13/2024 6:38 PM CDT) Color UA Yellow Yellow, Straw 12/13/2024 7:00 PM CDT [facility] Clarity UA Clear Clear 12/13/2024 7:00 PM CDT [facility] Glucose UA Normal Normal 12/13/2024 7:00 PM CDT [facility] Bilirubin UA Negative Negative 12/13/2024 7:00 PM CDT [facility] Ketone UA Negative Negative 12/13/2024 7:00 PM CDT [facility] Specific [place] UA 1.024 1.005 - 1.030 12/13/2024 7:00 PM [facility] Blood UA Negative Negative 12/13/2024 7:00 PM [facility] pH UA 6.5 5.0 - 8.0 12/13/2024 7:00 PM [facility] Protein UA Negative Negative 12/13/2024 7:00 PM [facility] Urobilinogen UA Normal Normal mg/dL 12/13/2024 7:00 PM [facility] Nitrite UA Negative Negative 12/13/2024 7:00 PM [facility] Leukocyte Esterase UA 500 ELODIA/uL(A) Negative 12/13/2024 7:00 PM [facility] RBC UA 0-2 0 - 5 # /hpf 12/13/2024 7:00 PM [facility] WBC UA 21-50(A) 0 - 5 # /hpf 12/13/2024 7:00 PM [facility] Bacteria UA None Seen None Seen 12/13/2024 7:00 PM [facility] Squamous Epithelial Cells 0-2 0 - 5 /hpf 12/13/2024 7:00 PM [facility] Reflex Status Culture to follow 12/13/2024 7:00 PM [facility] Urine URINE SPECIMEN OBTAINED BY CLEAN CATCH PROCEDURE / Unknown Collection / Unknown 12/13/2024 6:38 PM CDT 12/13/2024 6:41 PM CDT Kadi Ruiz MD LAB - URINALYSIS ORDERABLES Fi nal Result [address] [address], [facility] [phone] * (ABNORMAL) CULTURE URINE (12/13/2024 6:38 PM CDT) Culture Urine >100,000 CFU/mL Klebsiella pneumoniae extended-spect rum beta-lactamase (ESBL)(A) ARIANA 12/16/2024 12:18 AM CDT [facility] Comment:Isolate is multi brady g resistant organism (MDRO). Urine URINE SPECIMEN OBTAINED BY CLEAN CATCH PROCEDURE / Unknown Collection / Unknown 12/13/2024 6:38 PM CDT 12/13/2024 6:41 PM CDT [facility] MICROBIOLOGY - 12/16/2024 12:18 AM CDT [...] MICROBIOLOGY ORDERABLES Final Result Performing Organization Address City/[facility]/ZIP Co de Phone Number [facility] [address] [place] [address], [facility] [phone] * UREA NITROGEN URINE RANDOM (12/13/2024 6:38 PM CDT) Urea Nitrogen Random Urine 253 Not Established mg/dL 12/13/2024 7:08 PM CDT [facility] Urine URINE SPECIMEN OBTAINED BY CLEAN CATCH PROCEDURE / Unknown Collection / Unknown 12/13/2024 6:38 PM CDT 12/13/2024 6:41 PM CDT Kadi Ruiz MD LAB - URINE CHEMISTRY ORDERABL ES Final Result Performing Organization Address City/[facility] Co de Phone Number [facility] [address] [place] [address], [place] [phone] * LYTES (NA K CL) URINE RANDOM PANEL (12/13/2024 6:38 PM CDT) Sodium Urine 60 Not Established mmol/L 12/13/2024 7:08 PM CDT [facility] Potassium Urine 48.9 Not Established mmol/L 12/13/2024 7:08 PM CDT [facility] Chloride Random Urine 82 Not Established mmol/L 12/13/2024 7:08 PM CDT [facility] Urine URINE SPECIMEN OBTAINED BY CLEAN CATCH PROCEDURE / Unknown Collection / Unknown 12/13/2024 6:38 PM CDT 12/13/2024 6:41 PM CDT Kadi Ruiz MD LAB - URINE CHEMISTRY ORDERABL ES Final Result Performing Organization Address City/[facility]/ZIP Co de Phone Number [address] [address], [place] [phone] * CREATININE URINE RANDOM (12/13/2024 6:38 PM CDT) Creatinine Urine 33.12 Not Established mg/dL 12/13/2024 7:08 PM CDT [facility] Urine URINE SPECIMEN OBTAINED BY CLEAN CATCH PROCEDURE / Unknown Collection / Unknown 12/13/2024 6:38 PM CDT 12/13/2024 6:41 PM CDT us Kadi Ruiz MD LAB - URINE CHEMISTRY ORDERABL ES Final Result Performing Organization Address [facility] [facility] Co de Phone Number [address] [address], [place] [phone] * CT Angio Chest Pulm Embolism (12/13/2024 5:32 PM CDT) Anatomical Region Laterality Modality Chest Computed Tomogra phy 12/13/2024 5:55 PM CDT Impressions 12/13/2024 9:05 PM CDT Impression: 1.No evidence of acute pulmonary embolism. 2.Hepatic cirrhosis with sequela of portal hypertension including moderate volume ascites. > Dictated by Brii Su MD > Dictated by rBii Su MD 12/13/2024 5:55 PM > Dictated by Certified Surgical Tech/First Assistant IKike MD have personally reviewed and interpreted this examination/study. > Interpreting Provider: Kike Eduardo MD on 12/13/2024 9:05 PM Narrative 12/13/2024 9:05 PM CDT PROCEDURE: CT ANGIO CHEST PULM EMBOLISM, DATE/TIME OF EXAM: 12/13/2024 5:32 PM, LOCATION [facility] INDICATION: R06.02: SOB (shortness of breath) ADDITIONAL [...] DATE/TIME OF EXAM: 12/13/2024 5:32 PM, LOCATION [facility] INDICATION: R06.02: SOB (shortness of breath) ADDITIONAL [...] MD 12/13/2024 5:55 PM > Dictated by Certified Surgical Tech/First Assistant IKike MD have personally reviewed and interpreted [...] <3 <=14 ng/L 12/13/2024 3:08 PM CDT [facility] Delta Troponin I HS 12/13/2024 3:08 PM CDT [facility] Comment:Result exceeds linea rity range. A delta value is unable to be calculated. Blood BLOOD SPECIMEN / Unknown Venipuncture / Unknown 12/13/2024 2:21 PM CDT 12/13/2024 2:36 PM CDT Mendy Harmon PA-C LAB - CHEMISTRY ORDERABLES Patricia l Result [facility] [address] [place] [address], [place] [phone] * TROPONIN-I HIGH SENSITIVE BASELINE + 1HR (12/13/2024 1:11 PM CDT) Only the most recent of2 resultswithin the time period is included. Troponin I High Sensitive <3 <=14 ng/L 12/13/2024 1:50 PM CDT [facility] Blood BLOOD SPECIMEN / Unknown Venipuncture / Unknown 12/13/2024 1:11 PM CDT 12/13/2024 1:17 PM CDT us Mendy Harmon PA-C LAB - CHEMISTRY ORDERABLES Patricia negrete Result [facility] [address] [place] [address], [facility] [phone] * XR CHEST 2VW (12/13/2024 12:52 PM [...] (Bezet) 466 ms [facility] MUSE Calculated P Burns 54 degrees [facility] MUSE Calculated R Burns -53 degrees [facility] MUSE Calculated T Burns 61 degrees [facility] MUSE Interpretation EKG NORMAL SINUS RHYTHM LEFT ANTERIOR FASCICULAR BLOCK MINIMAL VOLTAGE CRITERIA FOR LVH, MAY BE NORMAL VARIANT ( Amrit product ) ABNORMAL ECG WHEN COMPARED WITH ECG OF 20-OCT-2024 16:55, NO SIGNIFICANT CHANGE WAS FOUND Confirmed by LENIN HUERTA, COBY ([id number]) on 12/14/2024 8:22:25 AM [facility] M[facility] 12/13/2024 12:4 4 PM CDT 12/14/2024 8:22 AM CDT Mendy Harmon PA-C ECG ORDERABLES Edited Result - Final [facility] * XR Chest 1Vw Portable [...] NATRIURETIC PEPTIDE (12/12/2024 6:51 PM CDT) Pathologist [facility] BNP 38 <=100 pg/mL 12/12/2024 7:40 PM CDT [facility] Blood BLOOD SPECIMEN / Unknown 12/12/2024 6:51 PM CDT 12/12/2024 7:16 PM CDT Chantale Flores DO LAB - CHEMISTRY ORDERABLE S Final Result [facility] [address] [place] [address] * Large Volume Paracentesis (12/02/2024 2:13 PM [...] the procedure. Procedure Code(s): --- Professional --- 71771, Abdominal paracentesis (diagnostic or therapeutic); with imaging guidance Diagnosis Code(s): --- Professional --- K70.31, Alcoholic cirrhosis of liver with ascites R18.8, Other ascites K74.60, Unspecified cirrhosis of liver K76.6, Portal hypertension CPT copyright 2021 [employer]. All rights reserved. The codes documented in this report are preliminary and upon die developer review may be revised to meet current compliance requirements. Eden Caro PA-C 12/02/2024 2:36:43 PM This report has been signed electronically. Yousif Paz, Note Initiated On: 12/02/2024 2:13 PM Number of Addenda: [address] PROVATION 12/02/2024 2:13 PM CDT us Eden Caro PA-C GI PROCEDURE ORDERABLES Edited Result - Final [facility] * PROBRAIN NATRIURETIC PEPTIDE N TERMINAL (12/02/2024 11:32 AM CDT) NT-proBNP 98 0 - 124 pg/mL 12/05/2024 10:04 AM CDT [employer] ([facility]) Comment: REFERENCE INTERVAL: NT-Probnp Natriuretic Peptide Access complete set of age- and/or gender-specific reference intervals for this test in the [facility] Laboratory Test Directory ([employer]). Performed By: [facility] [employer] [address] [place] [address] [place] Worker: Kulwant Coker MD, PhD CLIA Number: [id number] Blood BLOOD SPECIMEN / Unknown Venipuncture / Unknown 12/02/2024 11:32 AM CDT 12/02/2024 11:40 AM CDT Eden Caro PA-C LAB - CHEMISTRY ORDERAB LES Final Result [facility] ([facility]) [address] [place] [address] * (ABNORMAL) BASIC METABOLIC PANEL (CALCIUM TOTAL) (12/02/2024 11:32 AM CDT) BUN 23 7 - 26 mg/dL 12/02/2024 12:15 PM [facility] Creatinine 1.18(H) 0.56 - 0.96 mg/dL 12/02/2024 12:15 PM [facility] Sodium 129(L) 136 - 145 mmol/L 12/02/2024 12:15 PM [facility] Potassium 4.0 3.5 - 4.5 mmol/L 12/02/2024 12:15 PM [facility] Chloride 104 98 - 107 mmol/L 12/02/2024 12:15 PM [facility] CO2 19(L) 22 - 29 mmol/L 12/02/2024 12:15 PM [facility] Glucose 89 70 - 99 mg/dL 12/02/2024 12:15 PM [facility] Calcium 8.6 8.4 - 10.2 mg/dL 12/02/2024 12:15 PM [facility] Anion Gap 6 6 - 16 12/02/2024 12:15 PM [facility] BUN/Creatinine Ratio 19 7 - 23 12/02/2024 12:15 PM [facility] Osmolality Calculated 271(L) 275 - 295 mOsm/kg 12/02/2024 12:15 PM [facility] eGFR by CKD-EPI 55(L) >=90 mL/min/1.7 3 m2 12/02/2024 12:15 PM [facility] Comment:Estimated Glomerular Filtration Rate (eGFR) calculated using the CKD-EPI Creatinine Equation (2020), per the National Kidney Foundation and [place] Society of Nephrology recommendations. Blood BLOOD SPECIMEN / Unknown Venipuncture / Unknown 12/02/2024 11:32 AM CDT 12/02/2024 11:44 AM CDT us Eden Caro PA-C LAB - CHEMISTRY ORDERAB LES Final Result [facility] [address] [place] [address], [facility] [phone] * (ABNORMAL) HEPATIC FUNCTION PANEL (12/02/2024 11:32 AM T) Protein Total 6.5 6.0 - 8.3 g/dL 025 12:15 PM [facility] Albumin 3.1(L) 3.4 - 5.0 g/dL 12/02/2024 12:15 PM [facility] Bilirubin Total 3.1(H) 0.2 - 1.2 mg/dL 06/2024 12:15 PM [facility] Bilirubin Conjugated 0.8(H) 0.1 - 0.5 mg/dL 12/02/2024 12:15 PM [facility] Bilirubin Unconjugated 2.3 Unconjugated Bilirubin is a calculated value: Reference ranges have not been established. mg/dL 12/02/2024 12:15 PM [facility] Alkaline Phosphatase 148 40 - 150 U/L 12/02/2024 12:15 PM [facility] ALT 15 5 - 55 U/L 12/02/2024 12:15 PM [facility] AST 31 5 - 34 U/L 12/02/2024 12:15 PM [facility] Albumin/Globulin Ratio 0.9(L) 1.1 - 2.3 12/02/2024 12:15 PM CDT [facility] Blood BLOOD SPECIMEN / Unknown Venipuncture / Unknown 12/02/2024 11:32 AM CDT 12/02/2024 11:44 AM CDT Eden Yadav Gordo LEONARD LAB - CHEMISTRY ORDERAB LES Final Result Performing Organization Address City/[facility]/ZIP Co de Phone Number [facility] [address] [place] [address], [facility] [phone] * (ABNORMAL) HEPATITIS A ANTIBODY (12/02/2024 11:32 AM CDT) Hepatitis A Virus Antibody Total Positive( A) Negative 12/04/2024 9:05 AM CDT [employer] ([facility]) Comment: The positive anti-HAV is consistent with recent or remote Hepatitis A infection or antibody response to HAV vaccination. False positive anti-HAV can occur. Performed By: [facility] [address] [place] [address] [place] Worker: Kulwant Coker MD, PhD CLIA Number: [id number] Blood BLOOD SPECIMEN / Unknown Venipuncture / Unknown 12/02/2024 11:32 AM CDT 12/02/2024 11:40 AM CDT Eden Yadav Gordo LEONARD LAB - CHEMISTRY ORDERAB LES Final Result Performing Organization Address City/[facility] Co de Phone Number [employer] [facility]) [address] [place] [address] * PROTEIN BODY FLUID (12/02/2024 11:07 AM CDT) Protein Fluid 1.6 Not Established For Fluids g/dL 12/02/2024 11:51 AM CDT [facility] Fluid Type Peritoneal Fluid 12/02/2024 11:51 AM CDT [facility] Fluid PERITONEAL FLUID / Unknown Collection / Unknown 12/02/2024 11:07 AM CDT 12/02/2024 11:26 AM CDT Narrative [facility] - 12/02/2024 11:51 AM CDT The analytical performance of this test has been independently validated by the laboratory. A reference range has not been established for this fluid. Comparison of this result with the concentration in blood, serum or plasma is recommended. Eden Yadav JeannetteeloisaPrince PA-C LAB - BODY FLUID ORDERA BLES Final Result Performing Organization Address [facility]/ZIP Co de Phone Number [address] [address], [facility] [phone] * ALBUMIN BODY FLUID (12/02/2024 11:07 AM CDT) Albumin Fluid 0.8 g/dL 12/02/2024 11:51 AM CDT [facility] Fluid Type Peritoneal Fluid 12/02/2024 11:51 AM CDT [facility] Fluid PERITONEAL FLUID / Unknown Collection / Unknown 12/02/2024 11:07 AM CDT 12/02/2024 11:26 AM CDT Narrative [facility] - 12/02/2024 11:51 AM CDT The analytical performance of this test has been independently validated by the laboratory. A reference range has not been established for this fluid. Comparison of this result with the concentration in blood, serum or plasma is recommended. Eden Patelte PA-C LAB - BODY FLUID ORDERA BLES Final Result Performing Organization Address City/[facility]/ZIP Co de Phone Number [address] [address], [facility] [phone] * Large Volume Paracentesis (11/25/2024 1:34 PM [...] the procedure. Procedure Code(s): --- Professional --- 19396, Abdominal paracentesis (diagnostic or therapeutic); with imaging guidance Diagnosis Code(s): --- Professional --- K70.31, Alcoholic cirrhosis of liver with ascites R18.8, Other ascites K74.60, Unspecified cirrhosis of liver K76.6, Portal hypertension CPT copyright 2021 [employer]. All rights reserved. The codes documented in this report are preliminary and upon die developer review may be revised to meet current compliance requirements. Eden Caro PA-C 11/25/2024 1:40:14 PM This report has been signed electronically. Saad Villafuerte MD Note Initiated On: 11/25/2024 1:34 PM Number of Addenda: [address] [employer]OVATION 11/25/2024 1:34 PM CDT Eden Caro PA-C GI PROCEDURE ORDERABLES Edited Result - Final [facility] * Large Volume Paracentesis (11/11/2024 [...] the procedure. Procedure Code(s): --- Professional --- 37785, Abdominal paracentesis (diagnostic or therapeutic); with imaging guidance Diagnosis Code(s): --- Professional --- K70.31, Alcoholic cirrhosis of liver with ascites R18.8, Other ascites K74.60, Unspecified cirrhosis of liver K76.6, Portal hypertension CPT copyright 2021 [employer]. All rights reserved. The codes documented in this report are preliminary and upon die developer review may be revised to meet current compliance requirements. Eden Caro PA-C 11/11/2024 12:46:07 PM This report has been signed electronically. Luis Lopez, Note Initiated On: 11/11/2024 12:43 PM Number of Addenda: [address] [employer]OVATION 11/11/2024 12:4 3 PM CDT Eden Caro PA-C GI PROCEDURE ORDERABLES Edited Result - Final [facility] * EGD (11/05/2024 11:51 AM [...] non-kirkpatrick portions. Procedure Code(s): --- Professional --- 93910, Esophagogastroduo denoscopy, flexible, transoral; with band ligation of esophageal/gastri c varices Diagnosis Code(s): --- Professional --- I85.00, Esophageal varices without bleeding K76.6, Portal hypertension K31.89, Other diseases of stomach and duodenum Z13.810, Encounter for screening for upper gastrointestinal disorder CPT copyright 2021 [employer]. All rights reserved. The codes documented in this report are preliminary and upon die developer review may be revised to meet current compliance requirements. Poppy Richmond, 11/05/2024 12:25:36 PM Note Initiated On: 11/05/2024 11:51 AM Number of Addenda: [id number] [place] [address] PROVATION 11/05/2024 11:5 1 AM CDT Poppy Richmond MD GI PROCEDURE ORDERABLES Edite d Result - Final [facility] * Large Volume Paracentesis (11/04/2024 [...] the procedure. Procedure Code(s): --- Professional --- 36589, Abdominal paracentesis (diagnostic or therapeutic); with imaging guidance Diagnosis Code(s): --- Professional --- K70.31, Alcoholic cirrhosis of liver with ascites R18.8, Other ascites K74.60, Unspecified cirrhosis of liver K76.6, Portal hypertension CPT copyright 2021 [employer]. All rights reserved. The codes documented in this report are preliminary and upon die developer review may be revised to meet current compliance requirements. Eden Caro PA-C 11/04/2024 1:17:44 PM This report has been signed electronically. __ Saad Villafuerte MD Note Initiated On: 11/04/2024 1:14 PM Number of Addenda: [address] [employer]OVATION 11/04/2024 1:14 PM CDT Eden Caro PA-C GI PROCEDURE ORDERABLES Edited Result - Final [facility] * Large Volume Paracentesis (10/28/2024 [...] the procedure. Procedure Code(s): --- Professional --- 63774, Abdominal paracentesis (diagnostic or therapeutic); with imaging guidance Diagnosis Code(s): --- Professional --- R18.8, Other ascites CPT copyright 2021 [employer]. All rights reserved. The codes documented in this report are preliminary and upon die developer review may be revised to meet current compliance requirements. Luis Lopez, 10/28/2024 12:36:23 PM Note Initiated On: 10/28/2024 9:42 AM Number of Addenda: [id number] [place] [address] PROVATION 10/28/2024 9:42 AM CDT us Eden Caro PA-C GI PROCEDURE ORDERABLES Edited Result - Final [facility] * (ABNORMAL) HEMOGLOBIN A1C (HgbA1C) (05/17/2024 12:29 PM [facility]) Hemoglobin A1c <4.2(L) 4.8 - 5.6 % [facility] ACCOUNT BILL Comment: Verified by repeat analysis Prediabetes: 5.7 - 6.4 Diabetes: >6.4 Glycemic control for adults with diabetes: <7.0 Blood BLOOD SPECIMEN / Unknown 05/17/2024 12:29 PM [facility] 05/17/2024 Narrative [facility] ACCOUNT BILL - 05/18/2024 11:10 AM [facility] Performed at: 01 - [address] [id number] Company Truck Driver: Bubba Noel PhD, Phone: [phone] us Arcelia Whitney FASHION CONSULTANT SELLING-DIRECTOR OF WOMEN'S SERVICES LAB - CHEMISTRY ORDE RABLES Final Result Performing Organization Address City/[facility]/ZIP Co de Phone Number [facility] ACCOUNT BILL [address] [place] [address] * HEPATITIS SCREEN ACUTE (06/11/2023 11:38 PM [...] PM CDT 06/11/2023 11:54 PM CDT Narrative [facility] - 06/12/2023 10:53 AM CDT Non Reactive - Antibodies to Hepatitis C virus (HCV) were not detected, result does not exclude early acute HCV infection. Deb Winn DO LAB - CHEMISTRY ORDER HUSSEIN Final Result Performing Organization Address [facility] Co de Phone Number [facility] [address] [place], [place] [id number] * HIV-1 HIV-2 ANTIBODY + HIV P24 AG PANEL (06/19/2021 4:27 PM CDT) [facility] HIV1/2 Ab + P24 Ag Non Reactive Non Reactive 06/19/2021 10:15 PM CDT [facility] Blood BLOOD SPECIMEN / Unknown Venipuncture / Unknown 06/19/2021 4:27 PM CDT 06/19/2021 4:39 PM CDT Narrative [facility] - 06/19/2021 10:15 PM CDT No Laboratory evidence of HIV infection. 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 [facility] [address] [place] [address] PCP - General 10/07/24 Arcelia Whitney, FASHION CONSULTANT SELLING-DIRECTOR OF WOMEN'S SERVICES [facility] [address] [place] [address] Nurse Practitioner Family Medicine 06/21/24
--- OUTSIDE RECORDS SUMMARY | 2025-01-27 15:43 | XMS_ITS | Encounter Summary ---
Author Organization [facility] Address [address] [place] [address] Care Team Providers Care Land Use Planner Name Role Phone Jhonny, Tri Shirley DO Primary Care Provider [phone] Encounter Details Date Type Department Care Team (Late st Contact Info) Description 12/14/2003 Outpatient Historical [facility] Internal Medicine Medical [place] [facility] [address] [facility] [address] [address] Carly Armijo MD Social History Tobacco Use Types Packs/Day Years Used Date Smoking Tobacco: Never Assessed Comments Unknown Sex and Gender Information Value Date Recorded Sex Assigned at Not on file Legal Sex Female 6:00 PM MACHINE CEMENTER Gender Identity Not on file Sexual Orientation [...] COVID-19 05/20/2024 05/20/2024 05/20/2024 12:4 3 PM MACHINE CEMENTER documented as of this encounter Care Teams Land Use Planner Relationship Specialty Start Date End Date Tri Barry DO PCP - General Family Practice 02/09/21 12/24/22 documented as of this encounter
--- OUTSIDE RECORDS SUMMARY | 2025-01-27 15:43 | XMS_ITS | Encounter Summary ---
Author Organization [facility] Address [address] [place] [address] Care Team Providers Care Shear Tender Name Role Phone Unavailable Primary Care Provider Unavailabl e Prior Encounters Date Type Department Care Team Description 04/19/2019 Converted CPS Chart Documents [facility] [address] [place] [address] <No scans attached> 04/19/2019 Converted 13x Documents [facility] [address], [place] [address] <No scans attached> Plan of Treatment Not on file Procedures Procedure Name Priority Date/Time Associated Diagnosis Comments 4 CORE BUILDUP, INCLUDING ANY PINS WHEN REQUIRED Routine 11/26/2019 2:00 AM CDT 4 CEMENT CROWN Routine 11/26/2019 2:00 AM CDT 4 ENDODONTIC THERAPY, PREMOLAR TOOTH (EXCLUDING FINAL MU-ISM) Routine 11/26/2019 2:00 AM CDT 4 CERECFIRED CROWNPOST Routine 0 2:00 AM CDT NC X-RAY Routine 11/26/2019 2:00 AM CDT 4 LIMITED ORAL EVALUATION - PROBLEM FOCUSED Routine 11/15/2019 2:00 AM CDT PANORAMIC RADIOGRAPHIC IMAGE Routine 11/15/2019 2:00 AM CDT BITEWINGS - TWO RADIOGRAPHIC IMAGES Routine 11/15/2019 2:00 AM CDT Visit Diagnoses Not on file
--- OUTSIDE RECORDS SUMMARY | 2025-01-27 15:43 | XMS_ITS | Encounter Summary ---
Author Organization [facility] Address [address] [place] [address] Care Team Providers Care Shut Off Worker Name Role Phone Indu Bryant DO Primary Care Provider [phone] Jazmyne Jordan MD Primary Care Provider [phone] Berta Marquez RN Unavailable [phone] Arcelia Whitney RESOURCE PROGRAM TEACHER-SYSTEM DESIGNER Unavailable [phone] Adelaide Tse MD Primary Care Provider Unava ilable Reason for Visit * Reason Onset Date Comments Hospital Admission 08/18/2023 Encounter Details Date Type Department Care Team (Late st Contact Info) Description 08/18/2023 Telephone Transitional Care at [place] [address] [place] [address] Horacio Levine MD [address] [address] Hospital Admission Social History Tobacco [...] housing, medical care, and heating? Hard 08/19/2023 [facility] [place] [facility] Occup[facility] - Occupational Stress [...] place to sleep or slept in a care home (including now)? No 08/18/2023 Comments No Sex and Gender Information Value Date Recorded Sex Assigned at Not on file Legal Sex Female 5:09 AM BACTERIOLOGY RESEARCH ASSISTANT Gender Identity Not on file Sexual [...] st Contact Info) Description 02/03/2025 12:40 PM BACTERIOLOGY RESEARCH ASSISTANT Appointment [facility] [address] [place] [phone] Caio Rogers MD [address] [place] [phone] 03/28/2025 3:00 PM BACTERIOLOGY RESEARCH ASSISTANT Office Visit [facility] - Pulmonology [address] [place] [address], [place] [phone] Jake Grijalva MD [address] [place] [address] OF [facility] [place] [address] 05/31/2025 10:30 AM BACTERIOLOGY RESEARCH ASSISTANT Office Visit [facility] - GI [address] [place] [address], [place] [phone] Caio Rogers MD [address] [place] [phone] documented as of this encounter Visit Diagnoses Not on filedocumented in this encounter Additional Health Concerns Infection Onset Date Last Indicated Resolved Time COVID-19 Under Investigation 08/18/2023 08/18/2023 08/18/2023 2:46 PM CDT COVID-19 Under Investigation 01/11/2024 01/11/2024 01/11/2024 7:44 PM CDT COVID-19 Under Investigation 03/29/2024 03/29/2024 03/30/2024 12:11 AM BACTERIOLOGY RESEARCH ASSISTANT VRE 08/26/2024 08/26/2024 09/20/2024 10:1 2 AM CDT VRE Hx Comment:Urine culture - 08/26/24 08/26/2024 09/20/2024 ESBL GNR 12/13/2024 12/13/2024 MDRO 12/13/2024 12/13/2024 documented as of this encounter Care Teams Shut Off Worker Relationship Specialty Start Date End Date Indu Bryant DO [address] [facility] [address] [place] [phone] PCP - General Family Medicine 08/18/23 01/07/24 Jazmyne Jordan MD [address] [place] [address] PCP - General Family Medicine 05/17/24 10/06/24 [place] [address] [place] [address] PCP - General 10/07/24 Berta Marquez, RN Red LeaderAutomotive Airconditioning Mechanic 05/27/24 06/23/24 Arcelia Whitney, RESOURCE PROGRAM TEACHER-SYSTEM DESIGNER [address] [place] [address] Nurse Practitioner Family Medicine 06/21/24 documented as of this encounter
--- OUTSIDE RECORDS SUMMARY | 2025-01-27 15:43 | XMS_ITS | Encounter Summary ---
Author Organization [facility] Address [address] [place] [address] Care Team Providers Care Fiberglass Bonding Machine Tender Name Role Phone Jhonny, Tri Shirley DO Primary Care Provider [phone] Encounter Details Date Type Department Care Team (Latest Contact Info) Description 04/06/2004 Outpatient Historical HIS [facility] Felicita Dailey MD [address] [address] HYPOTHYROIDISM NOS (Primary Dx) Social History Tobacco Use Types Packs/Day Years Used Date Smoking Tobacco: Never Assessed Comments Unknown Sex and Gender Information Value Date Recorded Sex Assigned at Not on file Legal Sex Female 6:00 PM MAIL ORDER BILLER Gender Identity Not on file Sexual Orientation Not on file documented as of this encounter Plan of Treatment Not on file documented as of this encounter Procedures Procedure Name Priority Date/Time Associated Diagnosis Comments THYROID PEROXIDASE ANTIBODY Routine 04/06/2004 11:26 AM MAIL ORDER BILLER T3 FREE Routine 04/06/2004 11:26 AM MAIL ORDER BILLER TSH Routine 04/06/2004 11:26 AM MAIL ORDER BILLER T4 FREE Routine 04/06/2004 11:26 AM MAIL ORDER BILLER documented in this encounter Results * (ABNORMAL) THYROID PEROXIDASE ANTIBODY (04/06/2004 11:26 AM MAIL ORDER BILLER) THYROID PEROXIDASE AB >70(H) <2 IU/mL INTERFACE SYSTEM Comment: Lab test performed by: [facility] [id number] [place] [address] DALY MOY MD 04/06/2004 11:2 6 AM MAIL ORDER BILLER us Felicita Plascencia MD CHEMISTRY ORDERABLES Final Result Performing Organization Address City/[facility] Co de Phone Number INTERFACE SYSTEM Refer to clinic/hospital department * TSH (04/06/2004 11:26 AM MAIL ORDER BILLER) TSH 3.83 0.27 - 4.20 uU/mL INTERFACE SYSTEM 04/06/2004 11:2 6 AM MAIL ORDER BILLER us Felicita Plascencia MD CHEMISTRY ORDERABLES Final Result Performing Organization Address [facility] Phone Number INTERFACE SYSTEM Refer to clinic/hospital department * T3 FREE (04/06/2004 11:26 AM MAIL ORDER BILLER) T3 FREE 3.3 2.5 - 4.4 pg/mL INTERFACE SYSTEM 04/06/2004 11:2 6 AM MAIL ORDER BILLER us Felicita Plascencia MD CHEMISTRY ORDERABLES Final Result Performing Organization Address [facility] Phone Number INTERFACE SYSTEM Refer to clinic/hospital department * T4 FREE (04/06/2004 11:26 AM MAIL ORDER BILLER) T4 FREE 1.6 0.9 - 1.7 ng/dL INTERFACE SYSTEM 04/06/2004 11:2 6 AM MAIL ORDER BILLER us Felicita Plascencia MD CHEMISTRY ORDERABLES Final Result Performing Organization Address [facility] de Phone Number INTERFACE SYSTEM Refer to [...] COVID-19 05/20/2024 05/20/2024 05/20/2024 12:4 3 PM MAIL ORDER BILLER documented as of this encounter Care Teams Fiberglass Bonding Machine Tender Relationship Specialty Start Date End Date Tri Barry DO PCP - General Family Practice 02/09/21 12/24/22 documented as of this encounter
--- OUTSIDE RECORDS SUMMARY | 2025-01-27 15:43 | XMS_ITS | Clinical Summary ---
Author Organization [facility] Address [address] [place] [address] Care Team Providers Care Classroom Instructor Name Role Phone Unavailable Primary Care Provider [...] 5 Active cholecalciferol (VITAMIN D3) 1.25 MG (40542 UT) capsule Take 1 capsule (50,000 Units [...] Tobacco: Never Tobacco Cessation:Counseling Given: Not Answered [facility] Utilities Answer Date Recorded In the past 12 months has [employer], gas, oil, or water [employer] threatened to shut off services in your home? No 04/21/2024 Social Connection and Isolation Panel Answer Date Recorded In a typical week, how many times do you talk on the phone with family, friends, or neighbors? Patient declined 04/21/2024 How often do you get togethe r with friends or relatives? Patient declined 04/21/2024 How often do you attend gnosticist or adventist serv ices? Patient declined 04/21/2024 Do you belong to any clubs o r organizations such as gnosticist groups, unions, fraternal or athletic groups, or [...] medical care, and heating? Somewhat hard 04/21/2024 [facility] Occup[facility] - Occupational Stress [...] any time in the past 12 m [facility], were you homeless or living in a mcc (including now)? No 04/21/2024 Domestic Abuse Assessment [...] Comments Blood Pressure 96/51 05/04/2024 6:42 AM SPLITTER MACHINE Pulse 72 05/04/2024 9:44 AM SPLITTER MACHINE Temperature 36.6 C (97.8 F) 05/04/2024 6:42 AM SPLITTER MACHINE Respiratory Rate 19 05/04/2024 6:42 AM SPLITTER MACHINE Oxygen Saturation 92% 05/04/2024 9:44 AM SPLITTER MACHINE Inhaled Oxygen Concentration - - Weight 83.5 kg (184 lb) 05/04/2024 4:00 AM SPLITTER MACHINE Height 170.2 cm (5' 7) 05/04/2024 4:00 AM SPLITTER MACHINE Body Mass Index 28.82 05/04/2024 4:00 AM SPLITTER MACHINE Plan of Treatment Health Maintenance Due Date [...]
--- OUTSIDE RECORDS SUMMARY | 2025-01-27 15:43 | XMS_ITS | Encounter Summary ---
Author Organization [facility] Address [address] [place] [address] Care Team Providers Care Electronic Typesetting Machine Operator Name Role Phone Unavailable Primary Care Provider Unavailabl e Reason for Visit * Reason Onset Date Comments Liver failure - alcohol abuse 10/06/2023 [facility] CHAT @ DR LUIS E MEDEROS Encounter Details Date Type Department Care Team (Late st Contact Info) Description 10/06/2023 Telephone [facility] Admitting [address] [place] [address] Chantale Mello PA-C [address] [address] Liver failure - alcohol abuse [...] on file Legal Sex Female 6:00 PM ZONING ENGINEER Gender Identity Not on file Sexual Orientation Not on file 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
--- OUTSIDE RECORDS SUMMARY | 2025-01-27 15:43 | XMS_ITS | Encounter Summary ---
Author Organization [facility] Address [address] [place] [address] Care Team Providers Care Security System Administrator Name Role Phone Jhonny, Tri Shirley DO Primary Care Provider [phone] Encounter Details Date Type Department Care Team (Late st Contact Info) Description 01/06/2004 Outpatient Historical HIS [facility] DE[facility] Carly Armijo MD NONTOX MULTINODUL GOITER (Primary Dx) Social History Tobacco Use Types Packs/Day Years Used Date Smoking Tobacco: Never Assessed Comments Unknown Sex and Gender Information Value Date Recorded Sex Assigned at Not on file Legal Sex Female 6:00 PM HOSIERY OPERATOR Gender Identity Not on file Sexual [...] COVID-19 05/20/2024 05/20/2024 05/20/2024 12:4 3 PM HOSIERY OPERATOR documented as of this encounter Care Teams Security System Administrator Relationship Specialty Start Date End Date Tri Barry DO PCP - General Family Practice 02/09/21 12/24/22 documented as of this encounter
--- OUTSIDE RECORDS SUMMARY | 2025-01-27 15:43 | XMS_ITS | Clinical Summary ---
Author Organization [facility] Address [address] & [place] [address] Care Team Providers Care Blade Sharpener Name [...] - 11/21/2024 11:59 PM CDT Hospital Encounter [facility] Emergency Medical Services [address] [address] Luis Sage MD Ambulance, 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 [facility] - [facility] HEMOGLOBIN 8.0(L) 11.8 - 14.8 g/dL 11/21/2024 2:10 AM [employer] [facility] - [facility] HEMATOCRIT 24.3(L) 35.5 - 44.0 % 11/21/2024 2:10 AM CDT [facility] - [facility] MCV 99.6(H) 82.0 - 99.0 fL 11/21/2024 2:10 AM [employer] [facility] - [facility] MCH 32.8(H) 27.2 - 32.6 pg 11/21/2024 2:10 AM [facility] - [facility] MCHC 32.9 31.5 - 35.5 g/dL 11/21/2024 2:10 AM [facility] - [facility] RDW 16.8(H) 11.5 - 14.5 % 11/21/2024 2:10 AM [facility] - [facility] RDW-STDEV 61.6(H) 37.1 - 48.7 fL 11/21/2024 2:10 AM [facility] - [facility] PLATELETS 71(L) 140 - 350 K/uL 11/21/2024 2:10 AM [facility] Comment:Persistent abnormal result. MPV 10.5 9.3 - 12.4 fL 11/21/2024 2:10 AM [facility] NEUTROPHILS 55 % 11/21/2024 2:10 AM [employer]T [facility] LYMPHOCYTES 20 % 11/21/2024 2:10 AM [employer] [facility] MONOCYTES 22 % 11/21/2024 2:10 AM CDT [facility] EOSINOPHILS 2 % 11/21/2024 2:10 AM [employer] [facility] BASOPHILS 1 % 11/21/2024 2:10 AM [employer] [facility] IMMATURE GRANULOCYTES 0 % 11/21/2024 2:10 AM CDT [facility] - [facility] NEUTROPHIL ABSOLUTE 2.69 1.90 - 7.00 K/uL 11/21/2024 2:10 AM CDT [facility] LYMPHOCYTE ABSOLUTE 0.96 0.70 - 4.50 K/uL 11/21/2024 2:10 AM CDT [facility] MONOCYTE ABSOLUTE 1.07 0.10 - 1.30 K/uL 11/21/2024 2:10 AM CDT [facility] EOSINOPHIL ABSOLUTE 0.10 0.00 - 0.70 K/uL 11/21/2024 2:10 AM CDT [employer] [facility] - [facility] BASOPHILS ABSOLUTE 0.04 0.00 - 0.20 K/uL 11/21/2024 2:10 AM CDT [employer] [facility]ORY SERVICES - . [facility] IMMATURE GRANULOCYTES ABSOLUTE 0.01 0.00 - 0.03 K/uL 11/21/2024 2:10 AM CDT [employer] [facility] - [facility] Blood Venipuncture / Unknown 11/21/2024 1:39 AM CDT 11/21/2024 1:50 AM CDT us Luis Sage MD HEMATOLOGY ORDERABLES Final Res ult [facility]# [id number] [address] [place] [address] * (ABNORMAL) BASIC METABOLIC PANEL (11/21/2024 1:39 AM CDT) SODIUM 133(L) 136 - 145 mmol/L 11/21/2024 2:21 AM CDT [employer] [facility] POTASSIUM 4.0 3.5 - 5.0 mmol/L 11/21/2024 2:21 AM CDT [employer] [facility] CHLORIDE 102 98 - 107 mmol/L 11/21/2024 2:21 AM CDT [employer] [facility] CO2 23 22 - 29 mmol/L 11/21/2024 2:21 [facility] CALCIUM 8.3(L) 8.6 - 10.2 mg/dL 11/21/2024 2:[address] [facility] BUN 27(H) 6 - 20 mg/dL 11/21/2024 2:[address] [facility] CREATININE 1.02(H) 0.51 - 0.95 mg/dL 11/21/2024 2:[address] [facility] GLUCOSE 88 74 - 99 mg/dL 11/21/2024 2:[address] [facility] GFR >60 >=60 mL/min/1.7 3 sq meter 11/21/2024 2:[address] [facility] Comment:eGFR calculated with 2020 CKD-EPI equation. Vegetarian diet, extremely high or low muscle mass, and may affect results. Cystatin C with Glomerular Filtration Rate is a suitable alternative for these patients. ANION GAP 8 8 - 16 mmol/L 11/21/2024 2:[address] [facility] Blood Venipuncture / Unknown 11/21/2024 1:39 AM CDT 11/21/2024 1:49 AM CDT Luis Sage MD CHEMISTRY ORDERABLES Final Resu lt [facility]# [id number] [address] [place] [address] * ANAEROBIC/AEROBIC CULTURE W GRAM STAIN (11/20/2024 1:13 PM CDT) CULTURE No aerobic or anaerobic growth 11/25/2024 2:42 PM T [facility] GRAM STAIN No organisms observed 11/25/2024 2:[address] [facility] GRAM STAIN 2+ (Few) Polymorphonuclear WBC 11/25/2024 2:42 PM T [facility] Body fluid ENTIRE SEROUS MEMBRANE OF PERITONEUM / Unknown Collection / Unknown 11/20/2024 1:13 PM CDT 11/20/2024 1:50 PM CDT Luis Sage MD MICROBIOLOGY - GENERAL ORDERABL ES Final Result [facility] - [facility] CLIA# [id number] [address] [place] [address] * CELL COUNT WITH DIFFERENTIAL, BODY FLUID (11/20/2024 1:13 PM CDT) APPEARANCE, BODY FLUID Clear 11/20/2024 3:51 PM CDT [facility] - [facility] COLOR, FLD Yellow 11/20/2024 3:51 PM CDT [facility] - [facility] TOTAL NUCLEATED CELLS, FLD (AUTO) 152 No Ref Range Estab /ul 11/20/2024 3:51 PM CDT [facility] - [facility] TOTAL RBC'S, FLD (AUTO) <1,000 No Ref Range Estab /ul 11/20/2024 3:51 PM CDT [facility] - [facility] NEUTROPHILS, FLD 2 No Ref Range Estab % 11/20/2024 3:51 PM CDT [facility] - . [facility] LYMPHOCYTE, FLD 30 No Ref Range Estab % 11/20/2024 3:51 PM CDT [facility] - [facility] MONOCYTE/MACRO PHAGE, FLD 67 No Ref Range Estab % 11/20/2024 3:51 PM CDT [facility] - [facility] Body fluid ENTIRE SEROUS MEMBRANE OF PERITONEUM / Unknown Collection / Unknown 11/20/2024 1:13 PM CDT 11/20/2024 1:50 PM CDT us Luis Sage MD BODY FLUIDS AND STOOLS Final Re sult [facility] - [facility] CLIA# [id number] [address] [place] [address] * (ABNORMAL) TROPONIN 2 HR, 5TH GEN (11/20/2024 12:44 AM CDT) TROPONIN T, 2 HR 5TH GEN 27(H) <=10 ng/L 11/20/2024 1:30 AM CDT [facility] DELTA 2HR TROPONIN T 7 See Interp. 11/20/2024 1:30 AM CDT [facility] Blood Venipuncture / Unknown 11/20/2024 12:44 AM CDT 11/20/2024 12:47 AM CDT [facility] - 11/20/2024 1:30 AM CDT Troponin elevated. Delta indeterminate. Delay in collection of timed specimen beyond recommended collection interval. Results must be interpreted in clinical context. Fifi Adler MD CHEMISTRY ORDERABLES Final R esult Performing Organization Address [facility]/ZIP Co de Phone Number [facility]# [id number] [address] [place] [address] * (ABNORMAL) TROPONIN BASELINE, 5TH GEN (11/19/2024 9:45 PM CDT) [facility] TROPONIN T, BASELINE 5TH GEN 20(H) <=10 ng/L 11/19/2024 10:31 PM CDT [facility] Blood Venipuncture / Unknown 11/19/2024 9:45 PM CDT 11/19/2024 9:52 PM CDT [facility] - 11/19/2024 10:31 PM CDT Troponin elevated. Fifi Adler MD CHEMISTRY ORDERABLES Final R esult [facility]# [id number] [address] [place] [address] * (ABNORMAL) AMMONIA LEVEL (11/19/2024 9:45 PM CDT) Pathologist [facility] AMMONIA 71.3(H) 11.0 - 51.0 umol/L 11/19/2024 10:19 PM CDT [employer] [facility] Blood, venous Venipuncture / Unknown 11/19/2024 9:45 PM CDT 11/19/2024 9:52 PM CDT Ashish Perez MD CHEMISTRY ORDERABLES Final Result [facility] CLIA# [id number] [address] [place] [address] * (ABNORMAL) COMPREHENSIVE METABOLIC PANEL (11/19/2024 9:45 PM CDT) SODIUM 131(L) 136 - 145 mmol/L 11/19/2024 10:31 PM CDT [facility] - . [facility] POTASSIUM 4.2 3.5 - 5.0 mmol/L 11/19/2024 10:31 PM T [employer] [facility] - [facility] CHLORIDE 100 98 - 107 mmol/L 11/19/2024 10:31 PM CDT [facility] - [facility] CO2 21(L) 22 - 29 mmol/L 11/19/2024 10:31 PM CDT [facility] - . [facility] CALCIUM 8.5(L) 8.6 - 10.2 mg/dL 11/19/2024 10:31 PM T [facility] BUN 22(H) 6 - 20 mg/dL 11/19/2024 10:31 PM T [facility] - [facility] CREATININE 0.99(H) 0.51 - 0.95 mg/dL 11/19/2024 10:31 PM CDT [facility] - [facility] GLUCOSE 93 74 - 99 mg/dL 11/19/2024 10:31 PM T [facility] - . [facility] TOTAL PROTEIN 6.1(L) 6.7 - 8.6 g/dL 11/19/2024 10:31 PM CDT [facility] - [facility] ALBUMIN 3.0(L) 3.5 - 5.2 g/dL 11/19/2024 10:31 PM CDT [facility] BILIRUBIN TOTAL 2.7(H) 0.0 - 1.2 mg/dL 11/19/2024 10:31 PM CDT [facility] ALKALINE PHOSPHATASE 129(H) 35 - 104 U/L 11/19/2024 10:31 PM CDT [facility] AST 39(H) <33 U/L 11/19/2024 10:31 PM T [facility] Comment:Hemolysis present. R esult may be falsely elevated. ALT 13 <34 U/L 11/19/2024 10:31 PM T [facility] GFR >60 >=60 mL/min/1.7 3 sq meter 11/19/2024 10:31 PM T [facility] Comment:eGFR calculated with 2020 CKD-EPI equation. Vegetarian diet, extremely high or low muscle mass, and may affect results. Cystatin C with Glomerular Filtration Rate is a suitable alternative for these patients. ANION GAP 10 8 - 16 mmol/L 11/19/2024 10:31 PM CDT [facility] Blood Venipuncture / Unknown 11/19/2024 9:45 PM CDT 11/19/2024 9:52 PM CDT Narrative [facility] - 11/19/2024 10:31 PM CDT Samples containing indocyanine green cause interferences on Total and/or Direct Bilirubin and must not be measured. 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 : 1970 Requested By: Order Number: [id number] Reading MD: Domenico Barrientos Measurements Intervals [place] Rate: 70 P: 42 MI: 170 QRS: -46 QRSD: 123 T: 24 QT: 463 QTc: 500 Interpretive Statements Sinus rhythm Nonspecific IVCD with LAD Left ventricular hypertrophy Anterior Q waves, possibly due to LVH Electronically Signed On 11-19-2024 17:24:21 CDT by Domenico Barrientos Procedure Note Domenico Barrientos MD - 08/22/2025 [facility] [address] , [place] [address] Test Date: 2024-11-19 Pat Name: VALE MAGUIRE Department: 38 Room: Gender: Female 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 EXCHANGE MEDICAID [place] RX [facility] Commercial RX [employer] (INTERNAL) [facility] Internal Plans RX INFOCROSSING Medicaid Advance Directives For more information, please contact: [phone] * Full Code (Latest Code Status on [...]
--- OUTSIDE RECORDS SUMMARY | 2025-01-27 15:43 | XMS_ITS | Encounter Summary ---
Author Organization [facility] Address [address] [facility] [place] [address] Care Team Providers Care Numerical Control Programmer Name Role Phone Jhonny, Tritrinidad Shirley DO Primary Care Provider [phone] Encounter Details Date Type Department Care Team (Latest Contact Info) Description 12/14/2003 Outpatient Historical HIS [facility] Carly Arreguin MD OTHER MALAISE AND FATIGUE (Primary Dx) Social History Tobacco Use Types Packs/Day Years Used Date Smoking Tobacco: Never Assessed Comments Unknown Sex and Gender Information Value Date Recorded Sex Assigned at Not on file Legal Sex Female 6:00 PM ACCOUNT RECEIVABLE ASSOCIATE Gender Identity Not on file Sexual Orientation [...] COVID-19 05/20/2024 05/20/2024 05/20/2024 12:4 3 PM ACCOUNT RECEIVABLE ASSOCIATE documented as of this encounter Care Teams Numerical Control Programmer Relationship Specialty Start Date End Date Tri Barry DO PCP - General Family Practice 02/09/21 12/24/22 documented as of this encounter
--- OUTSIDE RECORDS SUMMARY | 2025-01-27 15:43 | XMS_ITS | Clinical Summary ---
Author Organization [facility] Address [address] [place] [address] Care Team Providers Care Manufacturing Controls Engineer Name Role Phone Unavailable Primary Care Provider [...]
--- OUTSIDE RECORDS SUMMARY | 2025-01-27 15:43 | XMS_ITS | Encounter Summary ---
Author Organization [facility] Address [address] [place] [address] Care Team Providers Care Brusher Warp Name Role Phone Unavailable Primary Care Provider Unavailabl e Reason for Visit * Reason Onset Date Comments HEPATORENAL 11/11/2023 SPOKE Daina /[email or web address] Encounter Details Date Type Department Care Team (Late st Contact Info) Description 11/11/2023 Telephone [facility] Admitting [address] [place] [address] [place] [address] [place] [address] HEPATORENAL (SPOKE Daina /[email or web address]@ DR. 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
--- OUTSIDE RECORDS SUMMARY | 2025-01-27 15:43 | XMS_ITS | Encounter Summary ---
Author Organization [facility] Address 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
--- OUTSIDE RECORDS SUMMARY | 2025-01-27 15:43 | XMS_ITS | Encounter Summary ---
Author Organization [facility] Address [address] [place] [address] Care Team Providers Care Needle Control Cheniller Name Role Phone Tri Barry DO Primary Care Provider [phone] Encounter Details Date Type Department Care Team (Late st Contact Info) Description 07/25/1998 Outpatient Historical [facility] Medicine [address] [place] [address] Adelaide Saldivar Social History Tobacco Use Types Packs/Day Years Used Date Smoking Tobacco: Never Assessed Comments Unknown Sex and Gender Information Value Date Recorded Sex Assigned at Not on file Legal Sex Female 6:00 PM MECHANICAL ENGINEERING DIRECTOR Gender Identity Not on file Sexual Orientation [...] COVID-19 05/20/2024 05/20/2024 05/20/2024 12:4 3 PM MECHANICAL ENGINEERING DIRECTOR documented as of this encounter Care Teams Needle Control Cheniller Relationship Specialty Start Date End Date Tri Barry DO PCP - General Family Practice 02/09/21 12/24/22 documented as of this encounter
--- OUTSIDE RECORDS SUMMARY | 2025-01-27 15:43 | XMS_ITS | Encounter Summary ---
Author Organization [facility] Address [address] [place] [address] Care Team Providers Care Retort Unloader Name Role Phone Jhonny, Tri Shirley DO Primary Care Provider [phone] Encounter Details Date Type Department Care Team (Late st Contact Info) Description 11/11/2008 Outpatient Historical [facility] [address] [place] [address] Social History Tobacco Use Types Packs/Day Years Used Date Smoking Tobacco: Never Assessed Comments Unknown Sex and Gender Information Value Date Recorded Sex Assigned at Not on file Legal Sex Female 6:00 PM ARTIST MANAGER Gender Identity Not on file Sexual [...] PM CDT Narrative 11/14/2008 7:26 AM CDT [facility] [address] [place], [place] [address] Admit Date: 11/11/2008 VALE DALE Sex: F Admit Prov: JAIMEE PATRICK Date: 1970 Primary Care Prov: PCP, UNKNOWN; LUCRETIA CMRN: [id number] EM Burris N: [id number] Room: [facility] Ordering Prov: N/A Accession Number: [id number] Interpretation CT ABDOMEN AND PELVIS WITH AND [...] Procedure Note Tom Lau MD - 11/14/2008 [facility] [address], [place] [address] Admit Date: 11/11/2008 VALE DALE Sex: F Admit Prov: JAIMEE PATRICK Date:1970 Primary Care Prov: PCP, UNKNOWN; LUCRETIA, CMRN: [id number] EM Burris SSN: [id number] Room: [facility] Ordering Prov: N/A Interpretation CT [...] COVID-19 05/20/2024 05/20/2024 05/20/2024 12:4 3 PM ARTIST MANAGER documented as of this encounter Care Teams Retort Unloader Relationship Specialty Start Date End Date Tri Barry DO PCP - General Family Practice 02/09/21 12/24/22 documented as of this encounter
--- OUTSIDE RECORDS SUMMARY | 2025-01-27 15:43 | XMS_ITS | Encounter Summary ---
Author Organization [facility] Address [address] [facility] [address] Care Team Providers Care Timber Treating Tank Operator Name Role Phone Jhonny, Tritrinidad Shirley DO Primary Care Provider [phone] Encounter Details Date Type Department Care Team (Latest Contact Info) Description 12/22/2003 Outpatient Historical [facility] Carly Arreguin MD OTHER MALAISE AND FATIGUE (Primary Dx) Social History Tobacco Use Types Packs/Day Years Used Date Smoking Tobacco: Never Assessed Comments Unknown Sex and Gender Information Value Date Recorded Sex Assigned at Not on file Legal Sex Female 6:00 PM CIVIL CAD DESIGNER Gender Identity Not on file Sexual Orientation [...] 05/20/2024 05/20/2024 12:4 3 PM CIVIL CAD DESIGNER documented as of this encounter Care Teams Timber Treating Tank Operator Relationship Specialty Start Date End Date Tri Barry DO PCP - General Family Practice 02/09/21 12/24/22 documented as of this encounter
[2025-01-27] MEDS: cefTRIAXone 1 GM in SODIUM CHLORIDE 0.9% IV 50 ML 100 ML IVPB (15:54)
--- NOTE | 2025-01-27 18:38 | P.HP_ITS ---
H&P: HPI History of Present Illness Date/Time: 01/27/25 18:38 Chief Complaint: Abdominal pain Narrative: 54-year-old female with a past medical history of liver cirrhosis with ascites, portal hypertension, hypothyroidism, chronic respiratory failure on 3 L nasal cannula presented to the ED on 01/27/2025 requesting paracentesis due to her abdominal pain. Previously, patient had been discharged from [facility] on 12/30/2024 with pneumonia, and presented again on 01/04/2025 with shortness of breath and discharged on 01/14. Patient follows with hepatology at [facility] but has not followed up due to lack of transportation since she was discharged several admits ago. Patient stated previously that she receives weekly paracentesis for her ascites. It appears she has not had a paracentesis since 01/13 when it was performed here. Patient denies fever, chills, nausea, vomiting, constipation or diarrhea. The patient currently lives with her dad but had been in a rehab facility until November. ED physician spoke with hepatology physician at [facility]. They recommend to continue diuretics and drain abdomen. Patient is scheduled to follow-up with them in February 2025. Initial vital signs 121/84, HR 85, respirations 14, afebrile, 97% on baseline 3 L O2 Labs not significantly different from recent results. Total bilirubin 3.3, AST 38, alk phos 170 Left anterior fascicular block Paracentesis with 6 L of straw-colored fluid removed on 01/27 Review of Systems Review of Systems: ROS unobtainable: Yes unobtainable due to mental status PMFSH Past Medical History Medical History Otitis media when 10 yrs old Esophageal varices with bleeding Pulmonary edema Hypothyroidism SBP (spontaneous bacterial peritonitis) TAB positive Colon cancer screening Portal hypertension Thrombocytopenia Elevated liver enzymes Alcohol use Decompensation of cirrhosis of liver Nicotine dependence, cigarettes, with other nicotine-induced disorders 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 She has 1 child at the daughter and she states that the daughter had recently moved. She also states she did have her primary however primary recently left. She does wish to be a full code. All code status is were reviewed with the patient including DNR, DNI current pressors, BiPAP and CPAP. Patient wishes to be a full code at that time. She also likes her friend Franko to be her surrogate. Smoking packs per day: 0.5 Smoking cigarettes per day: 10.0 Years smoked: 5 Smoking pack-years: 2.50 Smoking status: Former smoker Tobacco type: cigarettes Smoking end date: 10/30/23 Alcohol intake: former Drinks per week: 4 Substance use: never Substance use type: does not use Do You Feel Safe in your Home?: Yes Lack of Transportation: No Lack of Food: Never True Current Housing: I Have Housing Concerned About Future Housing: No Difficulty Paying Gas/Electric Bills: No Difficulty Paying for Meds: No Currently Unemployed: No Education: Associate Degree Difficulty w/ Childcare or Family Care: No Living arrangements: with family Occupation/Education: other Additional occupation/education comments: disability Gender identity (if verbalized by the patient): Female Sexual Orientation (if Verbalized by the Patient): Straight or Heterosexual Spiritual care concerns: No Agree to blood products: Yes Meds Home Medications and Allergies Home Medications ?Medication ?Instructions ?Recorded ?Confirmed ?Type docusate sodium 100 mg capsule 100 mg PO BID PRN Const ipation 90 12/27/24 01/27/25 Rx days #90 caps folic acid 1 mg tablet 1 mg PO DAILY 90 days #90 ta bs 12/27/24 01/27/25 Rx pantoprazole 40 mg tablet,delayed 40 mg PO Q12HR 90 da ys #180 tabs 12/27/24 01/27/25 Rx release cholecalciferol (vitamin D3) 25 25 mcg PO DAILY 90 day s #90 tabs 12/30/24 01/27/25 Rx mcg (1,000 unit) tablet potassium chloride 10 mEq 20 meq (2 x 10 mEq) PO DAILY 90 12/30/24 01/27/25 Rx capsule,extended release days #180 caps bumetanide 1 mg tablet 2 mg (2 x 1 mg) PO BID 90 da ys 01/14/25 01/27/25 Rx #180 tabs lactulose 10 gram/15 mL oral 30 g (45 mL) PO Q6H 30 da ys #3,600 01/14/25 Rx solution mL levothyroxine 150 mcg tablet 150 mcg PO DAILY #30 tabs 01/14/25 01/27/25 Rx (Synthroid) oxycodone 5 mg tablet 5 mg PO Q6H PRN pain #12 tab s 01/14/25 01/27/25 Rx rifaximin 550 mg tablet (Xifaxan) 550 mg PO BID 90 day s #180 tabs 01/14/25 01/27/25 Rx spironolactone 100 mg tablet 100 mg PO DAILY 30 days # 30 tabs 01/14/25 01/27/25 Rx (Aldactone) Allergies Allergy/AdvReac Type Severity Reaction Status Date / Time amoxicillin Allergy Hives Verified 01/27/25 15:25 latex Allergy Rash Verified 01/27/25 15:25 Penicillins Allergy Hives Verified 01/27/25 15:25 hydromorphone (From Dilaudid) AdvReac Itching Verified 01/27/25 15:25 Vital Signs Vital Signs - 24 hr 01/27/25 11:36 01/27/25 12:00 01/27/25 13:24 Temperature 98.1 F Pulse Rate 85 Respiratory Rate 14 Blood Pressure 121/84 119/69 Pulse Oximetry 97 Oxygen Delivery Nasal Cannula Oxygen Flow Rate 3 01/27/25 15:40 Temperature Pulse Rate Respiratory Rate Blood Pressure Pulse Oximetry 99 Oxygen Delivery Nasal Cannula Oxygen Flow Rate 3 Exam Narrative: GENERAL: non-toxic appearing, in no acute distress. HEAD: Normocephalic, atraumatic. EYES: PERRLA. Conjunctivae clear. NOSE: Normal no drainage. THROAT: Pharynx clear, no exudate. NECK: Trachea midline. No adenopathy, no masses. RESPIRATORY: Airway patent, respirations nonlabored. CTA. CARDIOVASCULAR: Regular rate and rhythm BREASTS: Defer GASTROINTESTINAL: Abdomen is soft and round. Mildly tender. Ventral hernia present. No organomegaly. Bowel sounds normal in all quadrants. GENITOURINARY: Defer MUSCULOSKELETAL: Moves all extremities. No gross deformities. No calf tenderness. SKIN: Warm, dry, normal color. 3+ edema right lower extremity, 2+ edema left lower extremity NEURO: A&O X2. Speech clear. Patient appears to be confusing her recent admissions and dates PSYCHIATRIC: Flat affect H&P: Results Labs Labs: Short CBC 01/27/25 Range/Units 11:58 WBC 5.2 (4.5-10.0) K/mm3 Hgb 10.0 L (12.0-15.0) g/dL Hct 31.4 L (37.0-47.0) % Plt Count 113 L D (150-375) k/mm3 BMP 01/27/25 11:58 Sodium 129 L Potassium 4.0 Chloride 102 Carbon Dioxide 20 L BUN 16 Creatinine 0.81 Glucose 94 Calcium 8.5 Liver Function 01/27/25 Range/Units 11:58 Total Bilirubin 3.3 H (0.2-1.3) mg/dL AST 38 H (14-36) U/L ALT 17 (6-35) U/L Alkaline Phosphatase 170 H (38-126) U/L Albumin 3.3 L (3.5-5.1) g/dL Assessment and Plan Assessment and plan (1) Cirrhosis of liver with ascites: Qualifiers: Hepatic cirrhosis type: unspecified hepatic cirrhosis Qualified Code(s): K74.60 - Unspecified cirrhosis of liver; R18.8 - Other ascites Code(s): K74.60 - Unspecified cirrhosis of liver; R18.8 - Other ascites Status: Acute Assessment and Plan: Frequent admits for complications of her cirrhosis. The patient presented today with massive ascites. Had not been drained since 01/13. Patient is not compliant with follow-ups at [facility] or with medications. She used to get weekly paracentesis but recently has not been able to get to her appointments due to lack of transportation. -6 L drained on 01/27 -continue Bumex, lactulose, Xifaxan, spironolactone (2) Chronic respiratory failure with hypoxia, on home O2 therapy: Code(s): J96.11 - Chronic respiratory failure with hypoxia; Z99.81 - Dependence on supplemental oxygen Status: Acute Assessment and Plan: Chest x-ray with suspected mild interstitial pulmonary edema and/or pneumonitis -currently on baseline 3 L O2 -continue above diuretics (3) Ascites: Qualifiers: Ascites type: other type Qualified Code(s): R18.8 - Other ascites Code(s): R18.8 - Other ascites Status: Acute Assessment and Plan: 6 L removed on 01/27 Plan Diet: Heart healthy GI prophylaxis: Pantoprazole DVT prophylaxis: SCDs lines/drains: PIV Fluids: NA Code status: Full Quality VTE Prophylaxis VTE prophylaxis: mechanical ordered
[2025-01-28] MEDS: LACTULOSE 20 GM/30 ML UDC 30 GM PO ×4 (00:10→17:07)
[2025-01-28] MEDS: oxyCODONE HCL (*CRX) 5 MG TAB IR PO ×4 (00:11→21:04)
[2025-01-28 04:04] VITALS: BP 112/60; PULSE 81; RESP 18; TEMP 36.5; O2SAT 95
[2025-01-28 04:42] LABS: Add Urine Microscopic? YES; Appearance Urine Cloudy (Clear); Glucose Urine UA Negative (Negative); Leukocyte Esterase Ur 2+ LEU/UL (Negative); Nitrate Urine Positive (Negative); Non Pathogenic Casts 0-2; Specific Grav Ur 1.020 (1.001-1.035)
[2025-01-28] MEDS: LEVOTHYROXINE SODIUM 150 MCG TABLET PO (05:39)
[2025-01-28 06:18] LABS: Hematocrit 28.6 % (37.0-47.0); Hemoglobin 9.1 g/dL (12.0-15.0); Immature Granulocyte Percent A 0.4 % (0-0.5); Lymphocytes Absolute Auto 0.93 K/mm3 (0.9-3.2); Mean Corpuscular HGB Conc 31.8 g/dl (32-36); Mean Corpuscular Hemoglobin 31.9 pg (26-34); Mean Corpuscular Volume 100.4 fl (80-100); Nucleated Red Blood Cells Absolute Auto 0.000 K/mm3 (0.0-0.012); Nucleated Red Blood Cells Perc 0.0 % (0.0-0.2); Platelet Count Result 100 k/mm3 (150-375); Red Blood Count 2.85 M/mm3 (4.2-5.4); White Blood Count 4.8 K/mm3 (4.5-10.0)
[2025-01-28 06:42] LABS: Alanine Aminotransferase 13 U/L (6-35); Albumin Level 2.6 g/dL (3.5-5.1); Alkaline Phosphatase 93 U/L (38-126); Anion Gap 3 mmol/L (4-12); Aspartate Amino Transferase 32 U/L (14-36); Bilirubin,Total 3.3 mg/dL (0.2-1.3); Blood Urea Nitrogen 14 mg/dL (7-17); Calcium 8.0 mg/dL (8.4-10.2); Carbon Dioxide 23 mmol/L (22-30); Chloride 102 mmol/L (98-107); Estimated CRCL calculation 92 ml/min; Estimated Glomerular Filt Rate > 60; Glucose 92 mg/dL (65-110); Magnesium 2.3 mg/dL (1.6-2.3); Potassium 3.8 mmol/L (3.4-5.0); Sodium 128 mmol/L (137-145); Total Protein 5.6 g/dL (6.3-8.2)
--- NOTE | 2025-01-28 06:58 | PM.IMPN ---
Progress Note: A&P Assessment and Plan (1) Cirrhosis of liver with ascites: Qualifiers: Hepatic cirrhosis type: unspecified hepatic cirrhosis Qualified Code(s): K74.60 - Unspecified cirrhosis of liver; R18.8 - Other ascites Code(s): K74.60 - Unspecified cirrhosis of liver; R18.8 - Other ascites Status: Acute Assessment and Plan: Frequent admits for complications of her cirrhosis, most recent from 01/05-01/14. Etiology MASH vs autoimmune? Presented to the hospital with massive ascites, last drained since 01/13. Patient is not compliant with follow-ups at [facility] or with medications. She used to get weekly paracentesis but recently has not been able to get to her appointments due to lack of transportation. Per chart review ED spoke with [facility] who recommended continue diuretics, drain abdomen and patient has follow up in Feb 2025. - s/p paracentesis with 6 L drained on 01/27 - Continue Bumex 2mg BID, Aldactone 100 mg daily - Continuing home rifaximin and lactulose - Lower extremity edema to the right leg, negative DVT. - GI consulted, appreciate recommendations (2) Chronic respiratory failure with hypoxia, on home O2 therapy: Code(s): J96.11 - Chronic respiratory failure with hypoxia; Z99.81 - Dependence on supplemental oxygen Status: Acute Assessment and Plan: Chest x-ray with suspected mild interstitial pulmonary edema and/or pneumonitis -currently on baseline 3 L O2 -continue above diuretics (3) Hypothyroidism: Code(s): E03.9 - Hypothyroidism, unspecified Status: Acute Assessment and Plan: Chronic, recent increase to Synthroid dose from 125 to 150 mg daily during prior admission. She will need rechecked in the outpatient setting. Continue Synthroid 150 mg daily Time Spent With Patient Time with patient: 25 - 35 minutes Subjective Date/time seen: 01/28/25 06:58 Interval history: 54-year-old female with a past medical history of liver cirrhosis with ascites, portal hypertension, hypothyroidism, chronic respiratory failure on 3 L nasal cannula presented to the hospital requesting paracentesis due to her abdominal pain secondary to chronic cirrhosis. Patient is pleasant lying comfortably in bed. She states that since receiving the paracentesis her abdominal pain and shortness of breath has significantly improved. She states she has a follow up appointment with [facility] hepatology in February but plans to call to ask for a sooner appointment if possible. She has no other complaints denying chest pain, palpitations, nausea/vomiting, dizziness/lightheadedness. Review of Systems Review of Systems: All systems reviewed & are unremarkable except as noted in HPI and below Exam Narrative: AF HR 81 RR 18 SPO2 97 3L NC (baseline) BP 112/60 General: Female in no acute respiratory distress who is nontoxic appearing, lying semi recumbent in bed. HEENT: Normocephalic. Atraumatic. Extraocular movement intact. Sclera clear and anicteric. No facial asymmetry. Chest: Lungs are clear to auscultation bilaterally. No wheezes or crackles. Speaking full sentences. CV: Heart was regular rate and rhythm. Abd: Abdomen was soft. Nontender. Distended. Umbilical hernia that is reducible. Positive bowel sounds. Ext: No clubbing, cyanosis. 2+ pitting edema to right lower extremity. No edema to the left. DP pulses bilaterally. Neuro: Patient is alert. Speech is clear. Objective Data Vital Signs Vital Signs: Vital Signs - 24 hr 01/27/25 11:36 01/27/25 12:00 01/27/25 13:24 Temperature 98.1 F Pulse Rate 85 Respiratory Rate 14 Blood Pressure 121/84 119/69 Pulse Oximetry 97 Oxygen Delivery Nasal Cannula Oxygen Flow Rate 3 01/27/25 15:40 01/27/25 19:39 01/27/25 20:00 Temperature 97.7 F Pulse Rate 74 74 Respiratory Rate 20 20 Blood Pressure 98/53 L Pulse Oximetry 99 98 98 Oxygen Delivery Nasal Cannula Nasal Cannula Oxygen Flow Rate 3 3 01/27/25 23:12 01/28/25 04:04 Temperature 97.7 F Pulse Rate 81 Respiratory Rate 18 Blood Pressure 112/60 Pulse Oximetry 97 95 Oxygen Delivery Nasal Cannula Oxygen Flow Rate 3 Intake/Output Intake/Output: Intake & Output 01/25/25 01/26/25 01/27/25 01/28/25 23:59 23:59 23:59 23:59 Intake Total 390 290 Output Total 6000 Balance -5610 290 Meds/Results Medications: Active Medications Generic Name Dose Route Start Last Admin Trade Name Freq PRN Reason Stop Dose Admin Bumetanide 2 mg 01/28/25 09:00 Bumetanide 1 Mg Tablet PO BID LENNY Docusate Sodium 100 mg 01/27/25 23:48 Docusate Sodium 100 Mg Capsule PO BID PRN Constipation Folic Acid 1 mg 01/28/25 09:00 Folic Acid 1 Mg Tablet PO DAILY [facility] Lactulose 30 gm 01/28/25 00:00 01/28/25 05:38 Lactulose 20 Gm/30 Ml Udc PO 30 gm Q6HR LENNY Administration Levothyroxine Sodium 150 mcg 01/28/25 06:30 01/28/25 05:39 Levothyroxine Sodium 150 Mcg Tablet PO 150 mcg DAILY@0630 [facility] Administration Oxycodone HCl 5 mg 01/27/25 23:48 01/28/25 05:41 Oxycodone Hcl (*Crx) 5 Mg Tab Ir PO 5 mg Q6H PRN Administration Pain Pantoprazole Sodium 40 mg 01/28/25 09:00 Pantoprazole 40 Mg Tablet PO Q12HR [facility] Potassium Chloride 20 meq 01/28/25 08:00 Potassium Chloride 20 Meq Er Tablet PO DAILY@0800 [facility] Rifaximin 550 mg 01/28/25 09:00 Rifaximin 550 Mg Tablet PO Q12HR [facility] Spironolactone 100 mg 01/28/25 09:00 Spironolactone 50 Mg Tablet PO DAILY [facility] Vitamin D 25 mcg 01/28/25 09:00 Cholecalciferol (Vitamin D3) 25 Mcg (1,000 Units) Tablet PO DAILY [facility] Radiology Results: ITS Impressions Chest X-Ray 01/27/25 13:00 IMPRESSION: 1. Suspect mild interstitial pulmonary edema and/or pneumonitis. Paracentesis Ultrasound 01/27/25 16:04 IMPRESSION: 1. Successful ultrasound-guided paracentesis yielding 6000 mL of clear straw-colored fluid. Labs Labs: Laboratory Results - last 24 hr 01/27/25 01/28/25 01/28/25 11:58 04:24 05:18 WBC 5.2 4.8 RBC 3.17 L 2.85 L Hgb 10.0 L 9.1 L Hct 31.4 L 28.6 L MCV 99.1 100.4 H MCH 31.5 31.9 MCHC 31.8 L 31.8 L RDW 17.6 H 17.3 H Plt Count 113 L D 100 L MPV 10.8 H 9.8 Immature Gran % (Auto) 0.2 0.4 Neut % (Auto) 61.3 60.3 Lymph % (Auto) 17.4 L 19.3 [place] % (Auto) 14.2 H 13.5 H Eos % (Auto) 5.4 H 4.8 H Baso % (Auto) 1.5 H 1.7 H Lymph # (Auto) 0.91 0.93 [place] # (Auto) 0.7 H 0.7 H Eos # (Auto) 0.3 0.2 Baso # (Auto) 0.1 0.1 Abs Immat Gran (auto) 0.01 0.02 Absolute Neuts (auto) 3.2 2.9 Absolute Nucleated RBC 0.000 0.000 Nucleated RBC % 0.0 0.0 PT 16.5 H INR 1.4 APTT 37.6 H Sodium 129 L 128 L Potassium 4.0 3.8 Chloride 102 102 Carbon Dioxide 20 L 23 Anion Gap 7 3 L BUN 16 14 Creatinine 0.81 0.76 Estim Creat Clear Calc 87 92 Estimated GFR > 60 > 60 Glucose 94 92 Calcium 8.5 8.0 L Phosphorus 3.3 Magnesium 2.3 Total Bilirubin 3.3 H 3.3 H Direct Bilirubin 0.0 AST 38 H 32 ALT 17 13 Alkaline Phosphatase 170 H 93 NT-Pro-B Natriuret Pep 76 Total Protein 6.6 5.6 L Albumin 3.3 L 2.6 L Lipase 139 Urine Color Dark yellow Urine Appearance Cloudy H Urine pH 6.0 Ur Specific [place] 1.020 Urine Protein Trace Urine Glucose (UA) Negative Urine Ketones Trace H Ur Blood (Man) Trace Urine Nitrate Positive H Urine Bilirubin 1+ H Urine Urobilinogen 0.2 Leukocyte Esterase Rfl 2+ H Urine RBC 3-5 H Urine WBC >100 H Ur Squamous Epith Cells Occasional Urine Bacteria 1+ H Urine Casts 0-2 Quality VTE Prophylaxis VTE prophylaxis: mechanical ordered
[2025-01-28 07:12] LABS: Thyroid Stimulating Hormone Reflex 38.800 uIU/mL (0.465-4.68)
[2025-01-28 08:00] VITALS: O2SAT 97
[2025-01-28] MEDS: CHOLECALCIFEROL (VITAMIN D3) 25 MCG (1,000 UNITS) TABLET PO (08:36)
[2025-01-28] MEDS: BUMETANIDE 1 MG TABLET 2 MG PO ×2 (08:36→17:07)
[2025-01-28] MEDS: POTASSIUM CHLORIDE 20 MEQ ER TABLET PO (08:36)
[2025-01-28] MEDS: SPIRONOLACTONE 50 MG TABLET 100 MG PO (08:36)
[2025-01-28] MEDS: FOLIC ACID 1 MG TABLET PO (08:37)
[2025-01-28] MEDS: PANTOPRAZOLE 40 MG TABLET PO (08:37)
[2025-01-28 09:41] LABS: Free T4 Free Thyroxine Reflex 0.93 ng/dL (0.78-2.19)
--- NOTE | 2025-01-28 12:42 | P.CONGI_ITS ---
Assessment and Plan Assessment and plan (1) Cirrhosis of liver with ascites: Qualifiers: Hepatic cirrhosis type: unspecified hepatic cirrhosis Q ualified Code(s): K74.60 - Unspecified cirrhosis of liver; R18.8 - Other ascites <Katerine Magallon APRN - Last Filed: 01/28/25 16:33> Code(s): K74.60 - Unspecified cirrhosis of liver; R18.8 - Other ascites < Katerine Magallon APRN - Last Filed: 01/28/25 16:33> Status: Acute <Katerine Magallon APRN - Last Filed: 01/28/25 16:33> Assessment and Plan: Frequent admits for complications of her cirrhosis. The patient presented today with massive ascites. Had not been drained since 01/13. Patient is not compliant with follow-ups at [facility] or with medications. She used to get weekly paracentesis but recently has not been able to get to her appointments due to lack of transportation. -6 L drained on 01/27 -continue Bumex, lactulose, Xifaxan, spironolactone <Abdirizak Montejo MD - Last Filed: 01/29/25 14:09> (2) Chronic respiratory failure with hypoxia, on home O2 therapy: Code(s): J96.11 - Chronic respiratory failure with hypoxia; Z99.81 - Dependence on supplemental oxygen <Katerine Magallon APRN - Last Filed: 01/28/25 16:33> Status: Acute <Katerine Magallon APRN - Last Filed: 01/28/25 16:33> Assessment and Plan: Chest x-ray with suspected mild interstitial pulmonary edema and/or pneumonitis -currently on baseline 3 L O2 -continue above diuretics <Abdirizak Montejo MD - Last Filed: 01/29/25 14:09> (3) Ascites: Qualifiers: Ascites type: other type Qualified Code(s): R18.8 - Other ascites <Katerine Magallon APRN - Last Filed: 01/28/25 16:33> Code(s): R18.8 - Other ascites <Katerine Magallon APRN - Last Filed: 01/28/25 16:33> Status: Acute <Katerine Magallon APRN - Last Filed: 01/28/25 16:33> Assessment and Plan: 6 L removed on 01/27 <Abdirizak Montejo MD - Last Filed: 01/29/25 14:09> Assessment and Plan: 1. Cirrhosis-MASH related ? Hx of elevated TAB. Decompensation liver disease with known varices, ascites and history of HE: MELD NA: 22. 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 Decompensated. Patient with multiple hospitalization at [place] over the past month with last discharge on Jan 14. She presented back to the ER yesterday with complaints of abdominal pain requesting a paracentesis and was also having unilateral edema of the right leg. Mild scleral icterus, significant ascites despite paracentesis with 6000 ml removed yesterday. Denies confusion. No asterixis noted on exam. * Variceal screening: Small grade 1 varices noted on EGD done at [place] 07/02/2023. Per patient she had an EGD with variceal banding at [facility] within the past month but this could not be verified. history of varices. * Beta derrek: Patient is not on a beta derrek for unknown reason as she has known portal hypertension and varices that per patient that were previously banded. * Last paracentesis: Paracentesis done yesterday with 6000 ml removed and patient still has significant ascites and tense abdomen, does not appear that patient received Albumin yesterday following her paracentesis. Prior paracentesis this month: Jan 08 3300 ml removed, Jan 05 6000 ml removed. Patient needs to continue treatment at [facility] for her chronic liver disease and to allow for more effective and larger volume paracentesis than can be done her at [place]. Patient is having frequent small volume paracentesis which puts her at a greater risk for complications and infection. * Patient would not be a candidate for TIPS procedure given her Hx of HE and MELD score of 22 * Optimize diuretics, prior to admission patient was on bumetanide 2 mg BID and spironolactone 100 mg daily * Urine sodium and potassium ordered * Diet: 2 gram sodium diet. * History of HE: Patient with Hx of HE and was on Lactulose 30 g Q 6 hrs at home and has Xifaxan 550 BID on her medication list but she was unable to say if she was taking her Xifaxan. Per patient she hasn't had a BM in 2-3 days but states that she was taking her lactulose? Thank you very much for allowing me to share in the care of this very nice patient. This report may have been done utilizing a voice recognition system. Attempts have been made to correct errors. However, there may be uncorrected grammatical, spelling, and recognition errors present. <Katerine Magallon, SECURITY SALES MANAGER - Last Filed: 01/28/25 16:33> 1. Cirrhosis-MASH related ? Hx of elevated TAB. Decompensation liver disease with known varices, ascites and history of HE: MELD NA: 22. 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 Decompensated. Patient with multiple hospitalization at [place] over the past month with last discharge on Jan 14. She presented back to the ER yesterday with complaints of abdominal pain requesting a paracentesis and was also having unilateral edema of the right leg. Mild scleral icterus, significant ascites despite paracentesis with 6000 ml removed yesterday. Denies confusion. No asterixis noted on exam. * Variceal screening: Small grade 1 varices noted on EGD done at [place] 07/02/2023. Per patient she had an EGD with variceal banding at [facility] within the past month but this could not be verified. history of varices. * Beta derrek: Patient is not on a beta derrek for unknown reason as she has known portal hypertension and varices that per patient that were previously banded. * Last paracentesis: Paracentesis done yesterday with 6000 ml removed and patient still has significant ascites and tense abdomen, does not appear that patient received Albumin yesterday following her paracentesis. Prior paracentesis this month: Jan 08 3300 ml removed, Jan 05 6000 ml removed. Patient needs to continue treatment at [facility] for her chronic liver disease and to allow for more effective and larger volume paracentesis than can be done her at [place]. Patient is having frequent small volume paracentesis which puts her at a greater risk for complications and infection. * Patient would not be a candidate for TIPS procedure given her Hx of HE and MELD score of 22 * Optimize diuretics, prior to admission patient was on bumetanide 2 mg BID and spironolactone 100 mg daily * Urine sodium and potassium ordered * Diet: 2 gram sodium diet. * History of HE: Patient with Hx of HE and was on Lactulose 30 g Q 6 hrs at home and has Xifaxan 550 BID on her medication list but she was unable to say if she was taking her Xifaxan. Per patient she hasn't had a BM in 2-3 days but states that she was taking her lactulose? * I have reviewed our nurse practitioner's note, examined the patient and pertinent laboratory data. We have discussed the plan extensively and agreed with was stated in the note. Will place an order for a large volume paracentesis next Friday. We are already communicating with [facility] to check her current status, since the patient has been seen in that institution for possible transplantation. We will not modify her diuretic regimen for the time being, hoping that this time we can achieve a significantly larger amount of fluid removed. * Thank you very much for allowing me to share in the care of this very nice patient. This report may have been done utilizing a voice recognition system. Attempts have been made to correct errors. However, there may be uncorrected grammatical, spelling, and recognition errors present. <Abdirizak Montejo MD - Last Filed: 01/29/25 14:09> GI Consult Note Consult date/time: 01/28/25 12:42 <Katerine Magallon APRN - Last Filed: 01/28/25 16:33> Reason for consult: Cirrhosis with ascites <Katerine Magallon APRN - Last Filed: 01/28/25 16:33> HPI: Nasreen Orozco is a 54 year old female liver cirrhosis with ascites (secondary to MASH but has elevated TAB), portal hypertension, hypothyroidism, chronic respiratory failure on 3 L nasal cannula presented to the ED on 01/27/2025 with complaints of abdominal pain requesting a paracentesis. GI has been consulted for cirrhosis and ascites. Patient with multiple recent hospitalizations at [facility] including 12/30/2024 with pneumonia, and presented again on 01/04/2025 and most recent discharge was on January 14 at which time she was admitted for SOB. Patient follows with hepatology at [facility] but has not followed up due to lack of transportation. Patient states that she was last seen at [facility] 1 month ago but this could not be verified. According to prior documentation the patient has a follow-up at [facility] in February but patient states she has not actually scheduled this appointment. Patient has already had 3 paracentesis this month most recent Jan 27 at which time 6000 mL was removed, Jan 08 3300 mL removed, Jan 05 6000 mL. It does not appear that the patient received albumin with her paracentesis she according to her medication list she was taking Bumetanide 2 mg b.i.d., Aldactone 100 mg daily, lactulose 30 g q.6 hours and Xifaxan 550 mg b.i.d. but patient could not confirm if she has been taking the Xifaxan. Prior to this admission the patient states that she was experiencing unilateral right leg swelling in combination with her abdominal ascites. She complains of abdominal discomfort secondary to abdominal distension. She states she has not had a bowel movement in the last 2-3 days despite taking lactulose. She denies nausea, vomiting, odynophagia, dysphagia, reflux, regurgitation or early satiety, appetite loss, unexplained weight loss, diarrhea that is not induced by lactulose, hematochezia or melena. She denies any NSAID, aspirin, or anticoagulant use prior to admission history cholecystectomy and hysterectomy. ENDOSCOPY HISTORY: EGD: Per patient she had an EGD done within the past 6 months at [facility] and she states that she had varices banded, but endoscopy reports were not available at time of visit EGD: 07/02/[address] Lopez for cirrhosis Findings: Grade 1 varices were present in the distal esophagus. The varices were not actively bleeding. No esophagitis The Z-line was located 41 cm from the incisors Mild gastritis seen in the stomach. The gastritis had erythematous and portal hypertensive changes. The gastritis had a moderate portal hypertensive change. There was no mucosal bleeding The bulb and 2nd portion of the duodenum was normal with no ulcers or masses COLONOSCOPY: Patient denies prior Hx of colonoscopy but is overdue for a screening colonoscopy LABS AND STOOL STUDIES: Labs 01/28/2025: Sodium 128, potassium 3.8, BUN 14, creatinine 0.76, GFR >60, calcium 8.0, magnesium 2.3 WBC 5, Hgb 9, Hct 29, MCV 100, platelets 100, INR 1.4 Total bilirubin 3.3, AST 32, ALT 13, Alkaline Phos 93, albumin 2.6 TSH 38.800 IMAGING: Paracentesis 01/27/2025: 6000 mL removed Abdominal X-ray 01/08/2025: Constipation Paracentesis 01/08/2025: 3300 mL removed CTA chest/abd/pelvis 01/05/2025: IMPRESSION: 1. Cirrhosis of the liver with portal venous hypertension. 2. Large volume of ascites. 3. Nondiagnostic evaluation of the pulmonary arteries. Paracentesis 01/05/2025: 6000 mL removed <Katerine Magallon, MIKAYLA - Last Filed: 01/28/25 16:33> Nasreen Neil Ernesto is a 54 year old female liver cirrhosis with ascites (secondary to MASH but has elevated TAB), portal hypertension, hypothyroidism, chronic respiratory failure on 3 L nasal cannula presented to the ED on 01/27/2025 with complaints of abdominal pain requesting a paracentesis. GI has been consulted for cirrhosis and ascites. Patient with multiple recent hospitalizations at [facility] including 12/30/2024 with pneumonia, and presented again on 01/04/2025 and most recent discharge was on January 14 at which time she was admitted for SOB. Patient follows with hepatology at [facility] but has not followed up due to lack of transportation. Patient states that she was last seen at [facility] 1 month ago but this could not be verified. According to prior documentation the patient has a follow-up at [facility] in February but patient states she has not actually scheduled this appointment. Patient has already had 3 paracentesis this month most recent Jan 27 at which time 6000 mL was removed, Jan 08 3300 mL removed, Jan 05 6000 mL. It does not appear that the patient received albumin with her paracentesis she according to her medication list she was taking Bumetanide 2 mg b.i.d., Aldactone 100 mg daily, lactulose 30 g q.6 hours and Xifaxan 550 mg b.i.d. but patient could not confirm if she has been taking the Xifaxan. Prior to this admission the patient states that she was experiencing unilateral right leg swelling in combination with her abdominal ascites. She complains of abdominal discomfort secondary to abdominal distension. She states she has not had a bowel movement in the last 2-3 days despite taking lactulose. She denies nausea, vomiting, odynophagia, dysphagia, reflux, regurgitation or early satiety, appetite loss, unexplained weight loss, diarrhea that is not induced by lactulose, hematochezia or melena. She denies any NSAID, aspirin, or anticoagulant use prior to admission history cholecystectomy and hysterectomy. I have reviewed our nurse practitioner's note, examined the patient and pertinent laboratory data. We have discussed the plan extensively and agreed with was stated in the note. Will place an order for a large volume paracentesis next Friday. We are already communicating with [facility] to check her current status, since the patient has been seen in that institution for possible transplantation. We will not modify her diuretic regimen for the time being, hoping that this time we can achieve a significantly larger amount of fluid removed. ENDOSCOPY HISTORY: EGD: Per patient she had an EGD done within the past 6 months at [facility] and she states that she had varices banded, but endoscopy reports were not available at time of visit EGD: 07/02/[address] Lopez for cirrhosis Findings: Grade 1 varices were present in the distal esophagus. The varices were not actively bleeding. No esophagitis The Z-line was located 41 cm from the incisors Mild gastritis seen in the stomach. The gastritis had erythematous and portal hypertensive changes. The gastritis had a moderate portal hypertensive change. There was no mucosal bleeding The bulb and 2nd portion of the duodenum was normal with no ulcers or masses COLONOSCOPY: Patient denies prior Hx of colonoscopy but is overdue for a screening colonoscopy LABS AND STOOL STUDIES: Labs 01/28/2025: Sodium 128, potassium 3.8, BUN 14, creatinine 0.76, GFR >60, calcium 8.0, magnesium 2.3 WBC 5, Hgb 9, Hct 29, MCV 100, platelets 100, INR 1.4 Total bilirubin 3.3, AST 32, ALT 13, Alkaline Phos 93, albumin 2.6 TSH 38.800 IMAGING: Paracentesis 01/27/2025: 6000 mL removed Abdominal X-ray 01/08/2025: Constipation Paracentesis 01/08/2025: 3300 mL removed CTA chest/abd/pelvis 01/05/2025: IMPRESSION: 1. Cirrhosis of the liver with portal venous hypertension. 2. Large volume of ascites. 3. Nondiagnostic evaluation of the pulmonary arteries. Paracentesis 01/05/2025: 6000 mL removed <Abdirizak Montejo MD - Last Filed: 01/29/25 14:09> Review of Systems 2 Review of Systems: All systems reviewed & are unremarkable except as noted in HPI and below <Katerine Magallon APRN - Last Filed: 01/28/25 16:33> Constitutional: Constitutional: Denies chills, Denies difficulty sleeping and Denies weakness <Katerinemaral Magallon APRN - Last Filed: 01/28/25 16:33> Eyes: Eyes: Reports no additional eye complaints, Denies blurry vision and Denies photophobia <Katerine Magallon APRN - Last Filed: 01/28/25 16:33> ENT: Reports as per HPI <Katerine Magallon APRN - Last Filed: 01/28/25 16:33> Cardiovascular: Cardiovascular: Reports as per HPI, Denies chest pain, Reports pedal edema and Reports leg edema (right leg ) <Katerine Magallon APRN - Last Filed: 01/28/25 16:33> Respiratory: Respiratory: Reports dyspnea (chronic on 02) and Reports dyspnea on exertion <Katerinemaral Magallon APRN - Last Filed: 01/28/25 16:33> Gastrointestinal: Gastrointestinal: Reports abdominal pain, Denies melena, Reports constipation, Denies nausea, Denies vomiting and Denies hematemesis <Katerine Magallon APRN - Last Filed: 01/28/25 16:33> Genitourinary: Genitourinary: Denies hematuria and Denies urinary frequency <Katerine Magallon APRN - Last Filed: 01/28/25 16:33> Musculoskeletal: Musculoskeletal: Reports no additional musculoskeletal complaints <Katerine Magallon APRN - Last Filed: 01/28/25 16:33> Neurologic: Denies Abnormal speech present, Denies confusion, Denies headache(s) and Denies numbness <Katerine Magallon APRN - Last Filed: 01/28/25 16:33> Psychiatric: Psychiatric: Denies confusion <Katerine Magallon APRN - Last Filed: 01/28/25 16:33> [facility] Past Medical History Medical History: Medical History Otitis media when 10 yrs old Esophageal varices with bleeding Pulmonary edema Hypothyroidism SBP (spontaneous bacterial peritonitis) TAB positive Colon cancer screening Portal hypertension Thrombocytopenia Elevated liver enzymes Alcohol use Decompensation of cirrhosis of liver Nicotine dependence, cigarettes, with other nicotine-induced disorders 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 <Katerinemaral Magallon APRN - Last Filed: 01/28/25 16:33> Surgical History Surgical History: Surgical History Abnormal findings on esophagogastroduodenoscopy (EGD) (~10/2023) with banding <Katerine Magallon APRN - Last Filed: 01/28/25 16:33> Family History Family History: Family History Sibling Alcohol abuse Brother Mother FH: kidney cancer Cerebrovascular accident <Katerine Magallon APRN - Last Filed: 01/28/25 16:33> Social History Social History: Social History Social History: Patient currently lives with her dad. She has 1 child at the daughter and she states that the daughter had recently moved. She also states she did have her primary however primary recently left. She does wish to be a full code. All code status is were reviewed with the patient including DNR, DNI current pressors, BiPAP and CPAP. Patient wishes to be a full code at that time. She also likes her friend Franko to be her surrogate. Smoking packs per day: 0.5 Smoking cigarettes per day: 10.0 Years smoked: 5 Smoking pack-years: 2.50 Smoking status: Former smoker Tobacco type: cigarettes Smoking end date: 10/30/23 Alcohol intake: former Drinks per week: 4 Substance use: never Substance use type: does not use Do You Feel Safe in your Home?: Yes Lack of Transportation: No Lack of Food: Never True Current Housing: I Have Housing Concerned About Future Housing: No Difficulty Paying Gas/Electric Bills: No Difficulty Paying for Meds: No Currently Unemployed: No Education: Associate Degree Difficulty w/ Childcare or Family Care: No Living arrangements: with family Occupation/Education: other Additional occupation/education comments: disability Gender identity (if verbalized by the patient): Female Sexual Orientation (if Verbalized by the Patient): Straight or Heterosexual Spiritual care concerns: No Agree to blood products: Yes <Katerine Magallon, MIKAYLA - Last Filed: 01/28/25 16:33> Meds Home Medications and Allergies Home medications: Home Medications ?Medication ?Instructions ?Recorded ?Confirmed ?Type docusate sodium 100 mg capsule 100 mg PO BID PRN Const ipation 90 12/27/24 01/27/25 Rx days #90 caps folic acid 1 mg tablet 1 mg PO DAILY 90 days #90 ta bs 12/27/24 01/27/25 Rx pantoprazole 40 mg tablet,delayed 40 mg PO Q12HR 90 da ys #180 tabs 12/27/24 01/27/25 Rx release cholecalciferol (vitamin D3) 25 25 mcg PO DAILY 90 day s #90 tabs 12/30/24 01/27/25 Rx mcg (1,000 unit) tablet potassium chloride 10 mEq 20 meq (2 x 10 mEq) PO DAILY 90 12/30/24 01/27/25 Rx capsule,extended release days #180 caps bumetanide 1 mg tablet 2 mg (2 x 1 mg) PO BID 90 da ys 01/14/25 01/27/25 Rx #180 tabs lactulose 10 gram/15 mL oral 30 g (45 mL) PO Q6H 30 da ys #3,600 01/14/25 01/27/25 Rx solution mL levothyroxine 150 mcg tablet 150 mcg PO DAILY #30 tabs 01/14/25 01/27/25 Rx (Synthroid) oxycodone 5 mg tablet 5 mg PO Q6H PRN pain #12 tab s 01/14/25 01/27/25 Rx rifaximin 550 mg tablet (Xifaxan) 550 mg PO BID 90 day s #180 tabs 01/14/25 01/27/25 Rx spironolactone 100 mg tablet 100 mg PO DAILY 30 days # 30 tabs 01/14/25 01/27/25 Rx (Aldactone) <Katerine Magallon APRN - Last Filed: 01/28/25 16:33> Allergies/Adverse reactions: Allergies Allergy/AdvReac Type Severity Reaction Status Date / Time amoxicillin Allergy Hives Verified 01/27/25 15:25 latex Allergy Rash Verified 01/27/25 15:25 Penicillins Allergy Hives Verified 01/27/25 15:25 hydromorphone (From Dilaudid) AdvReac Itching Verified 01/27/25 15:25 <Katerine Magallon APRN - Last Filed: 01/28/25 16:33> Vital Signs Vital Signs - 24 hr 01/27/25 13:24 01/27/25 15:40 01/27/25 19:39 Temperature 97.7 F Pulse Rate 74 Respiratory Rate 20 Blood Pressure 119/69 98/53 L Pulse Oximetry 99 98 Oxygen Delivery Nasal Cannula Oxygen Flow Rate 3 01/27/25 20:00 01/27/25 23:12 01/28/25 04:04 Temperature 97.7 F Pulse Rate 74 81 Respiratory Rate 20 18 Blood Pressure 112/60 Pulse Oximetry 98 97 95 Oxygen Delivery Nasal Cannula Nasal Cannula Oxygen Flow Rate 3 3 01/28/25 08:00 Temperature Pulse Rate Respiratory Rate Blood Pressure Pulse Oximetry 97 Oxygen Delivery Nasal Cannula Oxygen Flow Rate 3 <Katerine Magallon APRN - Last Filed: 01/28/25 16:33> Exam 2 Const: General: comfortable and no acute distress <Katerine Magallon APRN - Last Filed: 01/28/25 16:33> HENMT: Face/Nose/Sinus: Normal nares present <Katerine Magallon APRN - Last Filed: 01/28/25 16:33> Mouth: Yes moist mucous membranes <Katerine Magallon APRN - Last Filed: 01/28/25 16:33> Eyes: Sclera: scleral abnormality (mild scleral icterus) <Katerine ClarkeWang Alkataco SECURITY SALES MANAGER Last Filed: 01/28/25 16:33> Pupils: Equal, round and reactive pupils present <Katerine Ruckertaco SECURITY SALES MANAGER Last Filed: 01/28/25 16:33> Neck: Neck: supple <Katerine ClarkeWang Alkataco SECURITY SALES MANAGER - Last Filed: 01/28/25 16:33> Lymphatic: lymphadenopathy not noted <Katerine ClarkeWang Alkataco SECURITY SALES MANAGER - Last Filed: 01/28/25 16:33> Resp: Auscultation: diminished lung sounds <Katerine ClarkeWang [employer] SECURITY SALES MANAGER Last Filed: 01/28/25 16:33> Other: on 3L 02 per nasal cannula <Katerine ClarkeWang [employer] SECURITY SALES MANAGER - Last Filed: 01/28/25 16:33> Cardio: Rate: regular rate <Katerine ClarkeWang [employer] SECURITY SALES MANAGER - Last Filed: 01/28/25 16:33> Rhythm: regular rhythm <Katerine Ruckertaco SECURITY SALES MANAGER - Last Filed: 01/28/25 16:33> GI: Inspection: distended <Katerine ClarkeWang [employer] SECURITY SALES MANAGER Last Filed: 01/28/25 16:33> GI Palp: Yes Firmness to palpation present (GI), No Tenderness to palpation present (GI) and No Guarding due to palpation present (GI) <Katerine ClarkeWang Magallon SECURITY SALES MANAGER - Last Filed: 01/28/25 16:33> Auscultation: abnormal bowel sounds (hypoactive) <Katerine ClarkeWang [employer] SECURITY SALES MANAGER - Last Filed: 01/28/25 16:33> Skin: General skin exam: normal color <Katerine ClarkeWang Magallon APRN Last Filed: 01/28/25 16:33> Neuro: Speech: normal speech <Katerine ClarkeWang Magallon APRN Last Filed: 01/28/25 16:33> Motor exam (neuro): 5/5 motor strength present throughout <Katerine ClarkeWang Magallon SECURITY SALES MANAGER Last Filed: 01/28/25 16:33> Sensory Exam: normal sensation <Katerine ClarkeWang Magallon APRN - Last Filed: 01/28/25 16:33> Extrem: General: edema and pedal edema <Katerine ClarkeWang Magallon APRN - Last Filed: 01/28/25 16:33> Other: right leg <Katerine Jayjay Magallon APRN - Last Filed: 01/28/25 16:33> Psych: Mental Status: mental status grossly normal <Katerine ClarkeWang Magallon APRN - Last Filed: 01/28/25 16:33> Affect: normal affect <Katerine Jayjay Magallon APR Last Filed: 01/28/25 16:33> Results Labs CBC & Chem 7: 01/29/25 07:50 01/29/25 07:50 <Katerine Jayjay Magallon APRN Last Filed: 01/28/25 16:33> Labs: Short CBC 01/28/25 Range/Units 05:18 WBC 4.8 (4.5-10.0) K/mm3 Hgb 9.1 L (12.0-15.0) g/dL Hct 28.6 L (37.0-47.0) % Plt Count 100 L (150-375) k/mm3 BMP 01/28/25 05:18 Sodium 128 L Potassium 3.8 Chloride 102 Carbon Dioxide 23 BUN 14 Creatinine 0.76 Glucose 92 Calcium 8.0 L Liver Function 01/28/25 Range/Units 05:18 Total Bilirubin 3.3 H (0.2-1.3) mg/dL Direct Bilirubin 0.0 (0-0.3) mg/dL AST 32 (14-36) U/L ALT 13 (6-35) U/L Alkaline Phosphatase 93 (38-126) U/L Albumin 2.6 L (3.5-5.1) g/dL Urine 01/28/25 Range/Units 04:24 Urine Color Dark yellow (Yellow) Urine Appearance Cloudy H (Clear) Urine pH 6.0 (5.0-9.0) Ur Specific [place] 1.020 (1.001-1.035) Urine Protein Trace (Negative) mg/dL Urine Glucose (UA) Negative (Negative) mg/dL <Katerinemaral Magallon APRN - Last Filed: 01/28/25 16:33>
[2025-01-28 13:43] VITALS: BP 95/61; PULSE 84; RESP 18; TEMP 36; O2SAT 97
[2025-01-28 14:19] LABS: Total Triiodothyronine (T3) 0.50 NG/ML (0.82-1.58)
[2025-01-28 20:00] VITALS: PULSE 78; RESP 20; O2SAT 97
[2025-01-28 21:33] VITALS: BP 107/59; PULSE 78; RESP 20; TEMP 36.2; O2SAT 97
[2025-01-29] MEDS: oxyCODONE HCL (*CRX) 5 MG TAB IR PO ×2 (05:34→11:26)
[2025-01-29] MEDS: LEVOTHYROXINE SODIUM 150 MCG TABLET PO (05:34)
[2025-01-29 06:00] VITALS: BP 109/73; PULSE 83; RESP 12; TEMP 35.9; O2SAT 97
--- NOTE | 2025-01-29 07:46 | P.PNIM_ITS ---
Progress Note: A&P Assessment and Plan (1) Cirrhosis of liver with ascites: Qualifiers: Hepatic cirrhosis type: unspecified hepatic cirrhosis Qualified Code(s): K74.60 - Unspecified cirrhosis of liver; R18.8 - Other ascites Code(s): K74.60 - Unspecified cirrhosis of liver; R18.8 - Other ascites Status: Acute Assessment and Plan: Frequent admits for complications of her cirrhosis, most recent from 01/05-01/14. Etiology MASH vs autoimmune? Presented to the hospital with massive ascites, last drained since 01/13. Patient is not compliant with follow-ups at [facility] or with medications. She used to get weekly paracentesis but recently has not been able to get to her appointments due to lack of transportation. Per chart review ED spoke with [facility] who recommended continue diuretics, drain abdomen and patient has follow up in Feb 2025. - s/p paracentesis with 6 L drained on 01/27 - Continue Bumex 2mg BID, Aldactone 100 mg daily - Continuing home rifaximin and lactulose - Patient not on BB for known portal hypertension for previous hypotension during prior hospitalization, plan was to further adjust diuretics at that time - Lower extremity edema to the right leg, negative DVT. - GI consulted, appreciate recommendations plan for a large volume paracentesis on 01/31 GI communicating with [facility] to check her current status, since the patient has been seen in that institution for possible transplantation. No plan to modify her diuretic regimen for the time being (2) Anemia: Code(s): D64.9 - Anemia, unspecified Status: Acute Assessment and Plan: Chronic, appears at baseline. Hgb has ranged from 8-10 since 2023. Denies active bleeding Monitor (3) Chronic respiratory failure with hypoxia, on home O2 therapy: Code(s): J96.11 - Chronic respiratory failure with hypoxia; Z99.81 - Dependence on supplemental oxygen Status: Acute Assessment and Plan: Chest x-ray with suspected mild interstitial pulmonary edema and/or pneumonitis -currently on baseline 3 L O2 -continue above diuretics (4) Hypothyroidism: Code(s): E03.9 - Hypothyroidism, unspecified Status: Acute Assessment and Plan: Chronic, recent increase to Synthroid dose from 125 to 150 mg daily during prior admission. She will need rechecked in the outpatient setting. Continue Synthroid 150 mg daily Time Spent With Patient Time with patient: 25 - 35 minutes Subjective Date/time seen: 01/29/25 07:46 Interval history: 54-year-old female with a past medical history of liver cirrhosis with ascites, portal hypertension, hypothyroidism, chronic respiratory failure on 3 L nasal cannula presented to the hospital requesting paracentesis due to her abdominal pain secondary to chronic cirrhosis. Patient is pleasant sitting up comfortably in bed. She endorses a slight headache but denies any associated vision changes, nausea vomiting. She continues to endorse slight abdominal pain does state that this is admission following the paracentesis. He continues to ambulate throughout the room and denies any associated dizziness / lightheadedness. She has no other complaints denying chest pain, shortness a breath, palpitations. Review of Systems Review of Systems: All systems reviewed & are unremarkable except as noted in HPI and below Exam Narrative: AF HR 74 RR 20 SpO2 96 3L NC baseline BP 109/73 General: Female in no acute respiratory distress who is nontoxic appearing, lying semi recumbent in bed. HEENT: Normocephalic. Atraumatic. Extraocular movement intact. Sclera clear and anicteric. No facial asymmetry. Chest: Lungs are clear to auscultation bilaterally. No wheezes or crackles. Speaking full sentences. CV: Heart was regular rate and rhythm. Abd: Abdomen nontender. Distended. Umbilical hernia that is reducible, appears related to ascites. Positive bowel sounds. Ext: No clubbing, cyanosis. 2+ pitting edema to right lower extremity extending to mid calf, no redness, pain, warmth. No edema to the left. DP pulses bilaterally. Neuro: Patient is alert. Speech is clear. Objective Data Vital Signs Vital Signs: Vital Signs - 24 hr 01/28/25 08:00 01/28/25 13:43 01/28/25 20:00 Temperature 96.8 F L Pulse Rate 84 78 Respiratory Rate 18 20 Blood Pressure 95/61 L Pulse Oximetry 97 97 97 Oxygen Delivery Nasal Cannula Nasal Cannula Oxygen Flow Rate 3 3 01/28/25 21:33 01/29/25 06:00 Temperature 97.1 F L 96.7 F L Pulse Rate 78 83 Respiratory Rate 20 12 Blood Pressure 107/59 L 109/73 Pulse Oximetry 97 97 Oxygen Delivery Oxygen Flow Rate Intake/Output Intake/Output: Intake & Output 01/26/25 01/27/25 01/28/25 01/29/25 23:59 23:59 23:59 23:59 Intake Total 390 1006 1100 Output Total 6000 300 Balance -5610 706 1100 Meds/Results Medications: Active Medications Generic Name Dose Route Start Last Admin Trade Name Freq PRN Reason Stop Dose Admin Bumetanide 2 mg 01/28/25 09:00 01/28/25 17:07 Bumetanide 1 Mg Tablet PO 2 mg BID LENNY Administration Docusate Sodium 100 mg 01/27/25 23:48 Docusate Sodium 100 Mg Capsule PO BID PRN Constipation Folic Acid 1 mg 01/28/25 09:00 01/28/25 08:37 Folic Acid 1 Mg Tablet PO 1 mg DAILY LENNY Administration Lactulose 30 gm 01/28/25 00:00 01/29/25 05:35 Lactulose 20 Gm/30 Ml Udc PO Not Given Q6HR LENNY Levothyroxine Sodium 150 mcg 01/28/25 06:30 01/29/25 05:34 Levothyroxine Sodium 150 Mcg Tablet PO 150 mcg DAILY@0630 LENNY Administration Oxycodone HCl 5 mg 01/27/25 23:48 01/29/25 05:34 Oxycodone Hcl (*Crx) 5 Mg Tab Ir PO 5 mg Q6H PRN Administration Pain Potassium Chloride 20 meq 01/28/25 08:00 01/28/25 08:36 Potassium Chloride 20 Meq Er Tablet PO 20 meq DAILY@0800 LENNY Administration Rifaximin 550 mg 01/28/25 09:00 01/28/25 21:01 Rifaximin 550 Mg Tablet PO 550 mg Q12HR LENNY Administration Spironolactone 100 mg 01/28/25 09:00 01/28/25 08:36 Spironolactone 50 Mg Tablet PO 100 mg DAILY LENNY Administration Vitamin D 25 mcg 01/28/25 09:00 01/28/25 08:36 Cholecalciferol (Vitamin D3) 25 Mcg (1,000 Units) Tablet PO 25 mcg DAILY LENNY Administration Radiology Results: ITS Impressions Chest X-Ray 01/27/25 13:00 IMPRESSION: 1. Suspect mild interstitial pulmonary edema and/or pneumonitis. Paracentesis Ultrasound 01/27/25 16:04 IMPRESSION: 1. Successful ultrasound-guided paracentesis yielding 6000 mL of clear straw-colored fluid. Venous Doppler Study 01/28/25 09:54 Impression: Negative for DVT. Labs Labs: Laboratory Results - last 24 hr 01/28/25 01/28/25 05:18 15:23 Free T4 0.93 Total T3 0.50 L Ur Random Sodium 52 Ur Random Potassium 43.9 Quality VTE Prophylaxis VTE prophylaxis: mechanical ordered
[2025-01-29 07:55] LABS: Hematocrit 29.5 % (37.0-47.0); Hemoglobin 8.8 g/dL (12.0-15.0); Mean Corpuscular HGB Conc 29.8 g/dl (32-36); Mean Corpuscular Hemoglobin 32.0 pg (26-34); Mean Corpuscular Volume 107.3 fl (80-100); Platelet Count Result 102 k/mm3 (150-375); Red Blood Count 2.75 M/mm3 (4.2-5.4); White Blood Count 4.7 K/mm3 (4.5-10.0)
[2025-01-29 08:10] LABS: Alanine Aminotransferase 12 U/L (6-35); Albumin Level 2.3 g/dL (3.5-5.1); Alkaline Phosphatase 90 U/L (38-126); Anion Gap 5 mmol/L (4-12); Aspartate Amino Transferase 31 U/L (14-36); Bilirubin,Total 2.8 mg/dL (0.2-1.3); Blood Urea Nitrogen 13 mg/dL (7-17); Calcium 7.7 mg/dL (8.4-10.2); Carbon Dioxide 23 mmol/L (22-30); Chloride 101 mmol/L (98-107); Estimated CRCL calculation 81 ml/min; Estimated Glomerular Filt Rate > 60; Glucose 95 mg/dL (65-110); Potassium 3.5 mmol/L (3.4-5.0); Sodium 129 mmol/L (137-145); Total Protein 5.0 g/dL (6.3-8.2)
[2025-01-29] MEDS: FOLIC ACID 1 MG TABLET PO (08:21)
[2025-01-29] MEDS: BUMETANIDE 1 MG TABLET 2 MG PO ×2 (08:21→17:18)
[2025-01-29] MEDS: CHOLECALCIFEROL (VITAMIN D3) 25 MCG (1,000 UNITS) TABLET PO (08:21)
[2025-01-29] MEDS: SPIRONOLACTONE 50 MG TABLET 100 MG PO (08:21)
[2025-01-29] MEDS: POTASSIUM CHLORIDE 20 MEQ ER TABLET PO (08:21)
[2025-01-29 09:13] VITALS: PULSE 74; RESP 20; O2SAT 96
[2025-01-29 14:00] VITALS: BP 104/66; PULSE 87; RESP 18; TEMP 36.4; O2SAT 97
--- NOTE | 2025-01-29 14:09 | WPDGIPROGNO ---
Progress Note: A&P Assessment and Plan (1) Ascites: Code(s): R18.8 - Other ascites Status: Acute Assessment and Plan: Patient with advanced chronic liver disease, cirrhosis, admitted for ascites management. Despite paracentesis patient still feels a very tense abdomen. Will order a new therapeutic paracentesis for next Friday, hoping that we can achieve more ascitic fluid drained. Will communicate with [facility] hepatology service and see if she might consider a candidate for TIPS, however given her high MELD Na score (22) this is unlikely, and she would have to continue with periodic paracentesis and diuretics. (2) Ascites: Qualifiers: Ascites type: other type Qualified Code(s): R18.8 - Other ascites Code(s): R18.8 - Other ascites Status: Acute Subjective Date/time seen: 01/29/25 14:09 Interval history: Patient is stable, no changes compared to yesterday's status. Objective Data Vital Signs Vital Signs: Vital Signs - 24 hr 01/28/25 20:00 01/28/25 21:33 01/29/25 06:00 Temperature 97.1 F L 96.7 F L Pulse Rate 78 78 83 Respiratory Rate 20 20 12 Blood Pressure 107/59 L 109/73 Pulse Oximetry 97 97 97 Oxygen Delivery Nasal Cannula Oxygen Flow Rate 3 Fraction of Inspired Oxygen 01/29/25 09:13 Temperature Pulse Rate 74 Respiratory Rate 20 Blood Pressure Pulse Oximetry 96 Oxygen Delivery Nasal Cannula Oxygen Flow Rate 3 Fraction of Inspired Oxygen 32 Intake/Output Intake/Output: Intake & Output 01/26/25 01/27/25 01/28/25 01/29/25 23:59 23:59 23:59 23:59 Intake Total 390 1006 1788 Output Total 6000 300 Balance -5610 706 1788 Meds/Results Medications: Active Medications Generic Name Dose Route Start Last Admin Trade Name Freq PRN Reason Stop Dose Admin Bumetanide 2 mg 01/28/25 09:00 01/29/25 08:21 Bumetanide 1 Mg Tablet PO 2 mg BID LENNY Administration Docusate Sodium 100 mg 01/27/25 23:48 Docusate Sodium 100 Mg Capsule PO BID PRN Constipation Folic Acid 1 mg 01/28/25 09:00 01/29/25 08:21 Folic Acid 1 Mg Tablet PO 1 mg DAILY LENNY Administration Lactulose 30 gm 01/28/25 00:00 01/29/25 11:28 Lactulose 20 Gm/30 Ml Udc PO Not Given Q6HR LENNY Levothyroxine Sodium 150 mcg 01/28/25 06:30 01/29/25 05:34 Levothyroxine Sodium 150 Mcg Tablet PO 150 mcg DAILY@0630 LENNY Administration Oxycodone HCl 5 mg 01/27/25 23:48 01/29/25 11:26 Oxycodone Hcl (*Crx) 5 Mg Tab Ir PO 5 mg Q6H PRN Administration Pain Potassium Chloride 20 meq 01/28/25 08:00 01/29/25 08:21 Potassium Chloride 20 Meq Er Tablet PO 20 meq DAILY@0800 LENNY Administration Rifaximin 550 mg 01/28/25 09:00 01/29/25 08:21 Rifaximin 550 Mg Tablet PO 550 mg Q12HR LENNY Administration Spironolactone 100 mg 01/28/25 09:00 01/29/25 08:21 Spironolactone 50 Mg Tablet PO 100 mg DAILY LENNY Administration Vitamin D 25 mcg 01/28/25 09:00 01/29/25 08:21 Cholecalciferol (Vitamin D3) 25 Mcg (1,000 Units) Tablet PO 25 mcg DAILY LENNY Administration Radiology Results: ITS Impressions Chest X-Ray 01/27/25 13:00 IMPRESSION: 1. Suspect mild interstitial pulmonary edema and/or pneumonitis. Paracentesis Ultrasound 01/27/25 16:04 IMPRESSION: 1. Successful ultrasound-guided paracentesis yielding 6000 mL of clear straw-colored fluid. Venous Doppler Study 01/28/25 09:54 Impression: Negative for DVT. Labs Labs: Laboratory Results - last 24 hr 01/28/25 01/28/25 01/29/25 05:18 15:23 07:50 WBC 4.7 RBC 2.75 L Hgb 8.8 L Hct 29.5 L MCV 107.3 H D MCH 32.0 MCHC 29.8 L RDW 17.7 H Plt Count 102 L MPV 9.5 Sodium 129 L Potassium 3.5 Chloride 101 Carbon Dioxide 23 Anion Gap 5 BUN 13 Creatinine 0.87 Estim Creat Clear Calc 81 Estimated GFR > 60 Glucose 95 Calcium 7.7 L Total Bilirubin 2.8 H AST 31 ALT 12 Alkaline Phosphatase 90 Total Protein 5.0 L Albumin 2.3 L Total T3 0.50 L Ur Random Sodium 52 Ur Random Potassium 43.9
[2025-01-29] MEDS: LACTULOSE 20 GM/30 ML UDC 30 GM PO (17:19)
[2025-01-29 20:00] VITALS: PULSE 80; RESP 14; O2SAT 96
[2025-01-29 20:09] VITALS: BP 115/50; PULSE 80; RESP 14; TEMP 36.4; O2SAT 96
[2025-01-30] MEDS: LACTULOSE 20 GM/30 ML UDC 30 GM PO ×2 (00:19→05:46)
--- NOTE | 2025-01-30 02:35 | PC.NURSE ---
Daylight Savings Time For Daylight Savings Time Ending in the Fall - Clocks are moved back. For Daylight Savings Time Beginning in the Spring - Clocks are moved ahead. For [facility], the time of change occurs at 0200 hrs. Time is taken from the server assistant. This entry on the patient's chart recognizes the change in time reflected during documentation. Example: 2 entries for vital signs may be charted for 0200 hrs.
[2025-01-30 04:35] VITALS: BP 112/65; PULSE 89; RESP 14; TEMP 36.6; O2SAT 97
[2025-01-30] MEDS: LEVOTHYROXINE SODIUM 150 MCG TABLET PO (05:46)
--- NOTE | 2025-01-30 07:59 | PM.IMPN ---
Progress Note: A&P Assessment and Plan (1) Cirrhosis of liver with ascites: Qualifiers: Hepatic cirrhosis type: unspecified hepatic cirrhosis Qualified Code(s): K74.60 - Unspecified cirrhosis of liver; R18.8 - Other ascites Code(s): K74.60 - Unspecified cirrhosis of liver; R18.8 - Other ascites Status: Acute Assessment and Plan: Frequent admits for complications of her cirrhosis, most recent from 01/05-01/14. Etiology MASH vs autoimmune? Presented to the hospital with massive ascites, last drained since 01/13. Patient is not compliant with follow-ups at [facility] or with medications. She used to get weekly paracentesis but recently has not been able to get to her appointments due to lack of transportation. Per chart review ED spoke with [facility] who recommended continue diuretics, drain abdomen and patient has follow up in Feb 2025. - s/p paracentesis with 6 L drained on 01/27 - Continue Bumex 2mg BID, Aldactone 100 mg daily - Continuing home rifaximin and lactulose - Patient not on BB for known portal hypertension for previous hypotension during prior hospitalization, plan was to further adjust diuretics at that time - Lower extremity edema to the right leg, negative DVT. Likely related to cirrhosis and low albumin level. - GI consulted, appreciate recommendations plan for a large volume paracentesis on 01/31 GI communicating with [facility] to check her current status, since the patient has been seen in that institution for possible transplantation. No plan to modify her diuretic regimen for the time being Plan for paracentesis on 01/31. (2) Anemia: Code(s): D64.9 - Anemia, unspecified Status: Acute Assessment and Plan: Chronic, appears at baseline. Hgb has ranged from 8-10 since 2023. Hgb remains stable. Denies active bleeding Monitor (3) Chronic respiratory failure with hypoxia, on home O2 therapy: Code(s): J96.11 - Chronic respiratory failure with hypoxia; Z99.81 - Dependence on supplemental oxygen Status: Acute Assessment and Plan: Chest x-ray with suspected mild interstitial pulmonary edema and/or pneumonitis -currently on baseline 3 L O2 -continue above diuretics (4) Hypothyroidism: Code(s): E03.9 - Hypothyroidism, unspecified Status: Acute Assessment and Plan: Chronic, recent increase to Synthroid dose from 125 to 150 mg daily during prior admission. She will need rechecked in the outpatient setting. Continue Synthroid 150 mg daily Time Spent With Patient Time with patient: 25 - 35 minutes Subjective Date/time seen: 01/30/25 07:59 Interval history: 54-year-old female with a past medical history of liver cirrhosis with ascites, portal hypertension, hypothyroidism, chronic respiratory failure on 3 L nasal cannula presented to the hospital requesting paracentesis due to her abdominal pain secondary to chronic cirrhosis. Patient is pleasant lying comfortably in bed. She states that her abdomen feels more swollen today, endorsing or pressure. She denies any associated nausea /vomiting and continues to tolerate a diet well. She also remains on her home oxygen supplementation and denies any shortness of breath. She has no other complaints denying chest pain, palpitations. Review of Systems Review of Systems: All systems reviewed & are unremarkable except as noted in HPI and below Exam Narrative: AF HR 89 RR 14 SpO2 97 3L NC baseline BP 112/65 General: Female in no acute respiratory distress who is nontoxic appearing, lying semi recumbent in bed. HEENT: Normocephalic. Atraumatic. Extraocular movement intact. Sclera clear and anicteric. No facial asymmetry. Chest: Lungs are clear to auscultation bilaterally. No wheezes or crackles. Speaking full sentences. CV: Heart was regular rate and rhythm. Abd: Abdomen nontender. Distended. Umbilical hernia that is reducible, appears related to ascites. Positive bowel sounds. Ext: No clubbing, cyanosis. 2+ pitting edema to right lower extremity extending to mid calf, no redness, pain, warmth. No edema to the left. DP pulses bilaterally. Neuro: Patient is alert. Speech is clear. Objective Data Vital Signs Vital Signs: Vital Signs - 24 hr 01/29/25 09:13 01/29/25 14:00 01/29/25 20:00 Temperature 97.5 F L Pulse Rate 74 87 80 Respiratory Rate 20 18 14 Blood Pressure 104/66 Pulse Oximetry 96 97 96 Oxygen Delivery Nasal Cannula Nasal Cannula Oxygen Flow Rate 3 3 Fraction of Inspired Oxygen 32 32 01/29/25 20:09 01/30/25 04:35 Temperature 97.6 F 97.9 F Pulse Rate 80 89 Respiratory Rate 14 14 Blood Pressure 115/50 L 112/65 Pulse Oximetry 96 97 Oxygen Delivery Oxygen Flow Rate Fraction of Inspired Oxygen Intake/Output Intake/Output: Intake & Output 01/27/25 01/28/25 01/29/25 01/30/25 23:59 23:59 23:59 22:59 Intake Total 390 1006 2132 450 Output Total 6000 300 300 Balance -5610 706 1832 450 Meds/Results Medications: Active Medications Generic Name Dose Route Start Last Admin Trade Name Freq PRN Reason Stop Dose Admin Bumetanide 2 mg 01/28/25 09:00 01/29/25 17:18 Bumetanide 1 Mg Tablet PO 2 mg BID LENNY Administration Docusate Sodium 100 mg 01/27/25 23:48 Docusate Sodium 100 Mg Capsule PO BID PRN Constipation Folic Acid 1 mg 01/28/25 09:00 01/29/25 08:21 Folic Acid 1 Mg Tablet PO 1 mg DAILY LENNY Administration Lactulose 30 gm 01/28/25 00:00 01/30/25 05:46 Lactulose 20 Gm/30 Ml Udc PO 30 gm Q6HR LENNY Administration Levothyroxine Sodium 150 mcg 01/28/25 06:30 01/30/25 05:46 Levothyroxine Sodium 150 Mcg Tablet PO 150 mcg DAILY@0630 LENNY Administration Oxycodone HCl 5 mg 01/27/25 23:48 01/29/25 11:26 Oxycodone Hcl (*Crx) 5 Mg Tab Ir PO 5 mg Q6H PRN Administration Pain Potassium Chloride 20 meq 01/28/25 08:00 01/29/25 08:21 Potassium Chloride 20 Meq Er Tablet PO 20 meq DAILY@0800 LENNY Administration Rifaximin 550 mg 01/28/25 09:00 01/29/25 20:35 Rifaximin 550 Mg Tablet PO 550 mg Q12HR LENNY Administration Spironolactone 100 mg 01/28/25 09:00 01/29/25 08:21 Spironolactone 50 Mg Tablet PO 100 mg DAILY LENNY Administration Vitamin D 25 mcg 01/28/25 09:00 01/29/25 08:21 Cholecalciferol (Vitamin D3) 25 Mcg (1,000 Units) Tablet PO 25 mcg DAILY LENNY Administration Radiology Results: ITS Impressions Chest X-Ray 01/27/25 13:00 IMPRESSION: 1. Suspect mild interstitial pulmonary edema and/or pneumonitis. Paracentesis Ultrasound 01/27/25 16:04 IMPRESSION: 1. Successful ultrasound-guided paracentesis yielding 6000 mL of clear straw-colored fluid. Venous Doppler Study 01/28/25 09:54 Impression: Negative for DVT. Labs Labs: Laboratory Results - last 24 hr 01/28/25 01/28/25 05:18 15:23 Free T4 0.93 Total T3 0.50 L Ur Random Sodium 52 Ur Random Potassium 43.9 Quality VTE Prophylaxis VTE prophylaxis: mechanical ordered
[2025-01-30 08:24] LABS: Hematocrit 29.7 % (37.0-47.0); Hemoglobin 9.7 g/dL (12.0-15.0); Mean Corpuscular HGB Conc 32.7 g/dl (32-36); Mean Corpuscular Hemoglobin 32.0 pg (26-34); Mean Corpuscular Volume 98.0 fl (80-100); Platelet Count Result 110 k/mm3 (150-375); Red Blood Count 3.03 M/mm3 (4.2-5.4); White Blood Count 5.3 K/mm3 (4.5-10.0)
--- NOTE | 2025-01-30 08:25 | P.PNGI_ITS ---
Progress Note: A&P Assessment and Plan (1) Ascites: Qualifiers: Ascites type: other type Qualified Code(s): R18.8 - Other ascites Code(s): R18.8 - Other ascites Status: Acute Assessment and Plan: Patient significant ascites, awaiting for paracentesis to be performed tomorrow, after which 6-8 g of albumin will be administered. The patient is being evaluated at [facility] for possible transplant and she will resume care after paracentesis is done here. (2) Cirrhosis of liver: Code(s): K74.60 - Unspecified cirrhosis of liver Status: Acute Subjective Date/time seen: 01/30/25 08:25 Objective Data Vital Signs Vital Signs: Vital Signs - 24 hr 01/29/25 14:00 01/29/25 20:00 01/29/25 20:09 Temperature 97.5 F L 97.6 F Pulse Rate 87 80 80 Respiratory Rate 18 14 14 Blood Pressure 104/66 115/50 L Pulse Oximetry 97 96 96 Oxygen Delivery Nasal Cannula Oxygen Flow Rate 3 Fraction of Inspired Oxygen 32 01/30/25 04:35 Temperature 97.9 F Pulse Rate 89 Respiratory Rate 14 Blood Pressure 112/65 Pulse Oximetry 97 Oxygen Delivery Oxygen Flow Rate Fraction of Inspired Oxygen Intake/Output Intake/Output: Intake & Output 01/27/25 01/28/25 01/29/25 01/30/25 23:59 23:59 23:59 22:59 Intake Total 390 1006 2132 450 Output Total 6000 300 300 Balance -5610 706 1832 450 Meds/Results Medications: Active Medications Generic Name Dose Route Start Last Admin Trade Name Freq PRN Reason Stop Dose Admin Bumetanide 2 mg 01/28/25 09:00 01/29/25 17:18 Bumetanide 1 Mg Tablet PO 2 mg BID LENNY Administration Docusate Sodium 100 mg 01/27/25 23:48 Docusate Sodium 100 Mg Capsule PO BID PRN Constipation Folic Acid 1 mg 01/28/25 09:00 01/29/25 08:21 Folic Acid 1 Mg Tablet PO 1 mg DAILY LENNY Administration Lactulose 30 gm 01/28/25 00:00 01/30/25 05:46 Lactulose 20 Gm/30 Ml Udc PO 30 gm Q6HR LENNY Administration Levothyroxine Sodium 150 mcg 01/28/25 06:30 01/30/25 05:46 Levothyroxine Sodium 150 Mcg Tablet PO 150 mcg DAILY@0630 LENNY Administration Oxycodone HCl 5 mg 01/27/25 23:48 01/29/25 11:26 Oxycodone Hcl (*Crx) 5 Mg Tab Ir PO 5 mg Q6H PRN Administration Pain Potassium Chloride 20 meq 01/28/25 08:00 01/29/25 08:21 Potassium Chloride 20 Meq Er Tablet PO 20 meq DAILY@0800 LENNY Administration Rifaximin 550 mg 01/28/25 09:00 01/29/25 20:35 Rifaximin 550 Mg Tablet PO 550 mg Q12HR LENNY Administration Spironolactone 100 mg 01/28/25 09:00 01/29/25 08:21 Spironolactone 50 Mg Tablet PO 100 mg DAILY LENNY Administration Vitamin D 25 mcg 01/28/25 09:00 01/29/25 08:21 Cholecalciferol (Vitamin D3) 25 Mcg (1,000 Units) Tablet PO 25 mcg DAILY LENNY Administration Radiology Results: ITS Impressions Chest X-Ray 01/27/25 13:00 IMPRESSION: 1. Suspect mild interstitial pulmonary edema and/or pneumonitis. Paracentesis Ultrasound 01/27/25 16:04 IMPRESSION: 1. Successful ultrasound-guided paracentesis yielding 6000 mL of clear straw- colored fluid. Venous Doppler Study 01/28/25 09:54 Impression: Negative for DVT.
[2025-01-30 08:37] LABS: Alanine Aminotransferase 14 U/L (6-35); Albumin Level 2.9 g/dL (3.5-5.1); Alkaline Phosphatase 114 U/L (38-126); Anion Gap 8 mmol/L (4-12); Aspartate Amino Transferase 35 U/L (14-36); Bilirubin,Total 3.0 mg/dL (0.2-1.3); Blood Urea Nitrogen 14 mg/dL (7-17); Calcium 8.1 mg/dL (8.4-10.2); Carbon Dioxide 23 mmol/L (22-30); Chloride 99 mmol/L (98-107); Estimated CRCL calculation 74 ml/min; Estimated Glomerular Filt Rate 60; Glucose 94 mg/dL (65-110); Potassium 3.3 mmol/L (3.4-5.0); Sodium 130 mmol/L (137-145); Total Protein 6.1 g/dL (6.3-8.2)
[2025-01-30] MEDS: POTASSIUM CHLORIDE 20 MEQ ER TABLET PO (08:43)
[2025-01-30] MEDS: CHOLECALCIFEROL (VITAMIN D3) 25 MCG (1,000 UNITS) TABLET PO (08:43)
[2025-01-30] MEDS: oxyCODONE HCL (*CRX) 5 MG TAB IR PO ×2 (08:43→15:59)
[2025-01-30] MEDS: BUMETANIDE 1 MG TABLET 2 MG PO ×2 (08:43→15:59)
[2025-01-30] MEDS: SPIRONOLACTONE 50 MG TABLET 100 MG PO (08:44)
[2025-01-30] MEDS: FOLIC ACID 1 MG TABLET PO (08:44)
[2025-01-30 14:00] VITALS: BP 109/67; PULSE 90; RESP 20; TEMP 36.4; O2SAT 95
[2025-01-30 20:00] VITALS: O2SAT 97
[2025-01-30 22:00] VITALS: BP 107/60; PULSE 79; RESP 20; TEMP 36.8; O2SAT 97
[2025-01-31] VITALS (8 sets, daily range): BP systolic 93–106; BP diastolic 50–61; PULSE 75–86; RESP 16–20; TEMP 36.3–36.7; O2SAT 95–98
[2025-01-31 05:59] LABS: Hematocrit 28.0 % (37.0-47.0); Hemoglobin 9.0 g/dL (12.0-15.0); Mean Corpuscular HGB Conc 32.1 g/dl (32-36); Mean Corpuscular Hemoglobin 31.8 pg (26-34); Mean Corpuscular Volume 98.9 fl (80-100); Platelet Count Result 100 k/mm3 (150-375); Red Blood Count 2.83 M/mm3 (4.2-5.4); White Blood Count 4.5 K/mm3 (4.5-10.0)
[2025-01-31 06:24] LABS: Alanine Aminotransferase 14 U/L (6-35); Albumin Level 2.6 g/dL (3.5-5.1); Alkaline Phosphatase 84 U/L (38-126); Anion Gap 5 mmol/L (4-12); Aspartate Amino Transferase 31 U/L (14-36); Bilirubin,Total 3.0 mg/dL (0.2-1.3); Blood Urea Nitrogen 15 mg/dL (7-17); Calcium 7.7 mg/dL (8.4-10.2); Carbon Dioxide 25 mmol/L (22-30); Chloride 98 mmol/L (98-107); Estimated CRCL calculation 77 ml/min; Estimated Glomerular Filt Rate > 60; Glucose 126 mg/dL (65-110); Potassium 3.1 mmol/L (3.4-5.0); Sodium 128 mmol/L (137-145); Total Protein 5.6 g/dL (6.3-8.2)
[2025-01-31] MEDS: LEVOTHYROXINE SODIUM 150 MCG TABLET PO (06:32)
[2025-01-31] MEDS: oxyCODONE HCL (*CRX) 5 MG TAB IR PO ×3 (06:33→18:16)
--- NOTE | 2025-01-31 08:55 | P.PNIM_ITS ---
Progress Note: A&P Assessment and Plan (1) Cirrhosis of liver with ascites: Qualifiers: Hepatic cirrhosis type: unspecified hepatic cirrhosis Qualified Code(s): K74.60 - Unspecified cirrhosis of liver; R18.8 - Other ascites Code(s): K74.60 - Unspecified cirrhosis of liver; R18.8 - Other ascites Status: Acute Assessment and Plan: Frequent admits for complications of her cirrhosis, most recent from 01/05-01/14. Etiology MASH vs autoimmune? Presented to the hospital with massive ascites, last drained since 01/13. Patient is not compliant with follow-ups at [facility] or with medications. She used to get weekly paracentesis but recently has not been able to get to her appointments due to lack of transportation. Per chart review ED spoke with [facility]aptal[facility] who recommended continue diuretics, drain abdomen and patient has follow up in Feb 2025. - s/p paracentesis with 6 L drained on 01/27 - Continue Bumex 2mg BID, Aldactone 100 mg daily - Continuing home rifaximin and lactulose - Patient not on BB for known portal hypertension for previous hypotension during prior hospitalization, plan was to further adjust diuretics at that time - Lower extremity edema to the right leg, negative DVT. Likely related to cirrhosis and low albumin level. - GI consulted, appreciate recommendations GI communicating with [facility] to check her current status, since the patient has been seen in that institution for possible transplantation. No plan to modify her diuretic regimen for the time being Underwent another paracentesis on 01/31 with 6200 ml removed. Albumin ordered per GI. Patient plans to call [facility] to move up future appointment. GI continues to follow. (2) Anemia: Code(s): D64.9 - Anemia, unspecified Status: Acute Assessment and Plan: Chronic, appears at baseline. Hgb has ranged from 8-10 since 2023. Hgb remains stable. Denies active bleeding Monitor (3) Chronic respiratory failure with hypoxia, on home O2 therapy: Code(s): J96.11 - Chronic respiratory failure with hypoxia; Z99.81 - Dependence on supplemental oxygen Status: Acute Assessment and Plan: Chest x-ray with suspected mild interstitial pulmonary edema and/or pneumonitis -currently on baseline 3 L O2 -continue above diuretics (4) Hypothyroidism: Code(s): E03.9 - Hypothyroidism, unspecified Status: Acute Assessment and Plan: Chronic, recent increase to Synthroid dose from 125 to 150 mg daily during prior admission. She will need rechecked in the outpatient setting. Continue Synthroid 150 mg daily Time Spent With Patient Time with patient: 25 - 35 minutes Subjective Date/time seen: 01/31/25 08:55 Interval history: 54-year-old female with a past medical history of liver cirrhosis with ascites, portal hypertension, hypothyroidism, chronic respiratory failure on 3 L nasal cannula presented to the hospital requesting paracentesis due to her abdominal pain secondary to chronic cirrhosis. Patient is pleasant lying comfortably in bed after returning from her paracentesis. She endorses slight injection pain to the abdomen. Has no other complaints denying chest pain, palpitations, shortness of breath, nausea/vomiting. Review of Systems Review of Systems: All systems reviewed & are unremarkable except as noted in HPI and below Exam Narrative: AF HR 75 RR 16 Spo2 98 BP 93/51 General: Female in no acute respiratory distress who is nontoxic appearing, lying semi recumbent in bed. HEENT: Normocephalic. Atraumatic. Extraocular movement intact. Sclera clear and anicteric. No facial asymmetry. Chest: Lungs are clear to auscultation bilaterally. No wheezes or crackles. Speaking full sentences. CV: Heart was regular rate and rhythm. Abd: Abdomen nontender. Soft and less distended follow paracentesis. Umbilical hernia that is reducible, appears related to ascites. Positive bowel sounds. Ext: No clubbing, cyanosis. 2+ pitting edema to right lower extremity extending to mid calf, slightly improved. No redness, pain, warmth. No edema to the left. DP pulses bilaterally. Neuro: Patient is alert. Speech is clear. Objective Data Vital Signs Vital Signs: Vital Signs - 24 hr 01/30/25 14:00 01/30/25 20:00 01/30/25 22:00 Temperature 97.5 F L 98.2 F Pulse Rate 90 79 Respiratory Rate 20 20 Blood Pressure 109/67 107/60 Pulse Oximetry 95 97 97 Oxygen Delivery Nasal Cannula Oxygen Flow Rate 3 01/31/25 06:00 01/31/25 08:00 Temperature 97.9 F Pulse Rate 80 Respiratory Rate 18 Blood Pressure 101/61 Pulse Oximetry 97 97 Oxygen Delivery Nasal Cannula Oxygen Flow Rate 3 Intake/Output Intake/Output: Intake & Output 01/28/25 01/29/25 01/30/25 01/31/25 23:59 23:59 22:59 23:59 Intake Total 1006 2132 2009 400 Output Total 300 300 Balance 706 1832 2009 400 Meds/Results Medications: Active Medications Generic Name Dose Route Start Last Admin Trade Name Freq PRN Reason Stop Dose Admin Bumetanide 2 mg 01/28/25 09:00 01/30/25 15:59 Bumetanide 1 Mg Tablet PO 2 mg BID LENNY Administration Docusate Sodium 100 mg 01/27/25 23:48 Docusate Sodium 100 Mg Capsule PO BID PRN Constipation Folic Acid 1 mg 01/28/25 09:00 01/30/25 08:44 Folic Acid 1 Mg Tablet PO 1 mg DAILY LENNY Administration Lactulose 30 gm 01/28/25 00:00 01/31/25 05:36 Lactulose 20 Gm/30 Ml Udc PO Not Given Q6HR LENNY Levothyroxine Sodium 150 mcg 01/28/25 06:30 01/31/25 06:32 Levothyroxine Sodium 150 Mcg Tablet PO 150 mcg DAILY@0630 LENNY Administration Oxycodone HCl 5 mg 01/27/25 23:48 01/31/25 06:33 Oxycodone Hcl (*Crx) 5 Mg Tab Ir PO 5 mg Q6H PRN Administration Pain Potassium Chloride 20 meq 01/28/25 08:00 01/30/25 08:43 Potassium Chloride 20 Meq Er Tablet PO 20 meq DAILY@0800 LENNY Administration Rifaximin 550 mg 01/28/25 09:00 01/30/25 22:14 Rifaximin 550 Mg Tablet PO 550 mg Q12HR LENNY Administration Spironolactone 100 mg 01/28/25 09:00 01/30/25 08:44 Spironolactone 50 Mg Tablet PO 100 mg DAILY LENNY Administration Vitamin D 25 mcg 01/28/25 09:00 01/30/25 08:43 Cholecalciferol (Vitamin D3) 25 Mcg (1,000 Units) Tablet PO 25 mcg DAILY LENNY Administration Radiology Results: ITS Impressions Chest X-Ray 01/27/25 13:00 IMPRESSION: 1. Suspect mild interstitial pulmonary edema and/or pneumonitis. Paracentesis Ultrasound 01/27/25 16:04 IMPRESSION: 1. Successful ultrasound-guided paracentesis yielding 6000 mL of clear straw- colored fluid. Venous Doppler Study 01/28/25 09:54 Impression: Negative for DVT. Labs Labs: Laboratory Results - last 24 hr 01/31/25 05:51 WBC 4.5 RBC 2.83 L Hgb 9.0 L Hct 28.0 L MCV 98.9 MCH 31.8 MCHC 32.1 RDW 17.2 H Plt Count 100 L MPV 9.3 Sodium 128 L Potassium 3.1 L Chloride 98 Carbon Dioxide 25 Anion Gap 5 BUN 15 Creatinine 0.92 Estim Creat Clear Calc 77 Estimated GFR > 60 Glucose 126 H Calcium 7.7 L Total Bilirubin 3.0 H AST 31 ALT 14 Alkaline Phosphatase 84 Total Protein 5.6 L Albumin 2.6 L Quality VTE Prophylaxis VTE prophylaxis: mechanical ordered
[2025-01-31] MEDS: FOLIC ACID 1 MG TABLET PO (11:17)
[2025-01-31] MEDS: CHOLECALCIFEROL (VITAMIN D3) 25 MCG (1,000 UNITS) TABLET PO (11:17)
[2025-01-31] MEDS: POTASSIUM CHLORIDE 20 MEQ ER TABLET PO (11:17)
[2025-01-31] MEDS: ALBUMIN HUMAN 25% 25 GM/100 ML 100 ML IVPB (11:18)
--- NOTE | 2025-01-31 11:19 | PC.NURSE ---
Ok to give oxycotin prn early after paracenteses. Hold am bumex and give spironolactone later this afternoon Per Evelin CUMMINS
--- NOTE | 2025-01-31 14:49 | PC.NURSE ---
Patient refused 1200 lactulose. Evelin CUMMINS notified. Patient also c/o abd pain and oxycodone not due yet.
--- NOTE | 2025-01-31 14:57 | P.PNGI_ITS ---
Progress Note: A&P Assessment and Plan (1) Cirrhosis of liver with ascites: Qualifiers: Hepatic cirrhosis type: unspecified hepatic cirrhosis Qualified Code(s): K74.60 - Unspecified cirrhosis of liver; R18.8 - Other ascites Code(s): K74.60 - Unspecified cirrhosis of liver; R18.8 - Other ascites Status: Acute Assessment and Plan: The patient is status post large from paracentesis 6200cc , albumin replacement already provided according to the volume removed, i.e., 1200 cc above 5 L needed post paracentesis secretory dysfunction prevention. Potassium today 3.1. However the patient is getting 4 mg per day of bumetanide, which is equivalent to 160 mg of furosemide, which can explain hypokalemia. Will reduce her Bumetamide dose to 2 mg once a day and will increase Spironolactone to 200 mg once a day, all diuretics given at the same time in the morning. Potassium replacement should be discontinued to avoid hyperkalemia since spironolactone is a potassium-sparing diuretic. She can be discharged tomorrow with this diuretic regimen, and will have an appointment next week at [facility] for continuity of care. Subjective Date/time seen: 01/31/25 14:57 Interval history: Patient underwent large volume paracentesis today, obtaining 6200 cc of clear fluid. Exam Narrative: Abdomen much softer, nontender. Rest of the exam within normal limits. Objective Data Vital Signs Vital Signs: Vital Signs - 24 hr 01/30/25 20:00 01/30/25 22:00 01/31/25 06:00 Temperature 98.2 F 97.9 F Pulse Rate 79 80 Respiratory Rate 20 18 Blood Pressure 107/60 101/61 Pulse Oximetry 97 97 97 Oxygen Delivery Nasal Cannula Oxygen Flow Rate 3 01/31/25 08:00 01/31/25 11:12 01/31/25 13:58 Temperature 98.1 F Pulse Rate 75 Respiratory Rate 16 Blood Pressure 100/60 93/51 L Pulse Oximetry 97 98 Oxygen Delivery Nasal Cannula Oxygen Flow Rate 3 Intake/Output Intake/Output: Intake & Output 01/28/25 01/29/25 01/30/25 01/31/25 23:59 23:59 22:59 23:59 Intake Total 1006 2132 2009 640 Output Total 883 259 8186 Balance 257 6492 2009 -7609 Meds/Results Medications: Active Medications Generic Name Dose Route Start Last Admin Trade Name Scottq PRN Reason Stop Dose Admin Bumetanide 2 mg 01/28/25 09:00 01/31/25 11:24 Bumetanide 1 Mg Tablet PO Not Given BID [facility] Docusate Sodium 100 mg 01/27/25 23:48 Docusate Sodium 100 Mg Capsule PO BID PRN Constipation Folic Acid 1 mg 01/28/25 09:00 01/31/25 11:17 Folic Acid 1 Mg Tablet PO 1 mg DAILY LENNY Administration Lactulose 30 gm 01/28/25 00:00 01/31/25 14:26 Lactulose 20 Gm/30 Ml Udc PO Not Given Q6HR LENNY Levothyroxine Sodium 150 mcg 01/28/25 06:30 01/31/25 06:32 Levothyroxine Sodium 150 Mcg Tablet PO 150 mcg DAILY@0630 LENNY Administration Lidocaine 1 patch 02/01/25 09:00 Lidocaine 5% Patch TRANSDERM DAILY [facility] Oxycodone HCl 5 mg 01/27/25 23:48 01/31/25 11:18 Oxycodone Hcl (*Crx) 5 Mg Tab Ir PO 5 mg Q6H PRN Administration Pain Potassium Chloride 20 meq 01/28/25 08:00 01/31/25 11:17 Potassium Chloride 20 Meq Er Tablet PO 20 meq DAILY@0800 LENNY Administration Rifaximin 550 mg 01/28/25 09:00 01/31/25 11:17 Rifaximin 550 Mg Tablet PO 550 mg Q12HR LENNY Administration Spironolactone 100 mg 01/28/25 09:00 01/30/25 08:44 Spironolactone 50 Mg Tablet PO 100 mg DAILY LENNY Administration Vitamin D 25 mcg 01/28/25 09:00 01/31/25 11:17 Cholecalciferol (Vitamin D3) 25 Mcg (1,000 Units) Tablet PO 25 mcg DAILY LENNY Administration Radiology Results: ITS Impressions Chest X-Ray 01/27/25 13:00 IMPRESSION: 1. Suspect mild interstitial pulmonary edema and/or pneumonitis. Venous Doppler Study 01/28/25 09:54 Impression: Negative for DVT. Paracentesis Ultrasound 01/31/25 11:27 IMPRESSION: 1. Successful ultrasound-guided paracentesis yielding 6200 mL of fidencio-colored fluid. Labs Labs: Laboratory Results - last 24 hr 01/31/25 05:51 WBC 4.5 RBC 2.83 L Hgb 9.0 L Hct 28.0 L MCV 98.9 MCH 31.8 MCHC 32.1 RDW 17.2 H Plt Count 100 L MPV 9.3 Sodium 128 L Potassium 3.1 L Chloride 98 Carbon Dioxide 25 Anion Gap 5 BUN 15 Creatinine 0.92 Estim Creat Clear Calc 77 Estimated GFR > 60 Glucose 126 H Calcium 7.7 L Total Bilirubin 3.0 H AST 31 ALT 14 Alkaline Phosphatase 84 Total Protein 5.6 L Albumin 2.6 L
[2025-01-31] MEDS: SPIRONOLACTONE 50 MG TABLET 100 MG PO (15:23)
[2025-01-31] MEDS: BUMETANIDE 1 MG TABLET 2 MG PO (15:23)
[2025-02-01] MEDS: oxyCODONE HCL (*CRX) 5 MG TAB IR PO ×2 (01:50→08:33)
[2025-02-01 04:42] VITALS: BP 102/55; PULSE 73; RESP 18; TEMP 36.3; O2SAT 98
[2025-02-01] MEDS: LEVOTHYROXINE SODIUM 150 MCG TABLET PO (05:37)
[2025-02-01 05:56] LABS: Hematocrit 28.4 % (37.0-47.0); Hemoglobin 8.9 g/dL (12.0-15.0); Mean Corpuscular HGB Conc 31.3 g/dl (32-36); Mean Corpuscular Hemoglobin 31.1 pg (26-34); Mean Corpuscular Volume 99.3 fl (80-100); Platelet Count Result 91 k/mm3 (150-375); Red Blood Count 2.86 M/mm3 (4.2-5.4); White Blood Count 4.7 K/mm3 (4.5-10.0)
[2025-02-01 06:21] LABS: Alanine Aminotransferase 13 U/L (6-35); Albumin Level 2.7 g/dL (3.5-5.1); Alkaline Phosphatase 85 U/L (38-126); Anion Gap 5 mmol/L (4-12); Aspartate Amino Transferase 37 U/L (14-36); Bilirubin,Total 2.9 mg/dL (0.2-1.3); Blood Urea Nitrogen 16 mg/dL (7-17); Calcium 7.7 mg/dL (8.4-10.2); Carbon Dioxide 26 mmol/L (22-30); Chloride 97 mmol/L (98-107); Estimated CRCL calculation 96 ml/min; Estimated Glomerular Filt Rate > 60; Glucose 80 mg/dL (65-110); Potassium 3.5 mmol/L (3.4-5.0); Sodium 128 mmol/L (137-145); Total Protein 5.3 g/dL (6.3-8.2)
[2025-02-01 08:00] VITALS: O2SAT 98
[2025-02-01 08:05] VITALS: O2SAT 97
[2025-02-01] MEDS: FOLIC ACID 1 MG TABLET PO (08:28)
[2025-02-01] MEDS: BUMETANIDE 1 MG TABLET 2 MG PO (08:28)
[2025-02-01] MEDS: CHOLECALCIFEROL (VITAMIN D3) 25 MCG (1,000 UNITS) TABLET PO (08:28)
[2025-02-01] MEDS: SPIRONOLACTONE 50 MG TABLET 200 MG PO (08:28)
--- NOTE | 2025-02-01 10:03 | ECG_ITS ---
Test Date: 2025-02-01 10:20:17 Measurements Intervals Wheeler Rate: 74 P: 25 VA: 188 QRS: -46 QRSD: 130 T: 48 QT: 433 QTc: 481 Interpretive Statements SINUS RHYTHM LEFT ANTERIOR FASCICULAR BLOCK [QRS AXIS <= -45, QR IN I, RS IN II] Poor R wave progression Electronically Signed On 02-01-2025 21:21:35 [employer] by Davis Benson M.D.
[2025-02-01 10:44] LABS: Troponin I < 0.012 ng/mL (0.000-0.034)
[2025-02-01] MEDS: LACTULOSE 20 GM/30 ML UDC 30 GM PO (11:34)
[2025-02-01 13:58] LABS: Troponin I < 0.012 ng/mL (0.000-0.034)
[2025-02-01 14:00] VITALS: BP 107/58; PULSE 84; RESP 18; TEMP 36.4; O2SAT 93
--- NOTE | 2025-02-01 15:06 | P.DS_ITS ---
DS: Admitting Diagnosis Discharge Date 02/01/2025 Admitting Diagnosis cirrhosis of liver with ascites anemia chronic respiratory failure with hypoxia hypothyroidism DS: Discharge Diagnosis Discharge Diagnosis (1) Cirrhosis of liver with ascites: Qualifiers: Hepatic cirrhosis type: unspecified hepatic cirrhosis Qualified Code(s): K74.60 - Unspecified cirrhosis of liver; R18.8 - Other ascites Code(s): K74.60 - Unspecified cirrhosis of liver; R18.8 - Other ascites Status: Acute (2) Anemia: Code(s): D64.9 - Anemia, unspecified Status: Acute (3) Chronic respiratory failure with hypoxia, on home O2 therapy: Code(s): J96.11 - Chronic respiratory failure with hypoxia; Z99.81 - Dependence on supple mental oxygen Status: Acute (4) Hypothyroidism: Code(s): E03.9 - Hypothyroidism, unspecified Status: Acute DS: Summary Hospital Course Reason for hospitalization: cirrhosis of liver with ascites anemia chronic respiratory failure with hypoxia hypothyroidism Hospital Course: 54-year-old female with a past medical history of liver cirrhosis with ascites, portal hypertension, hypothyroidism, chronic respiratory failure on 3 L nasal cannula presented to the hospital requesting paracentesis due to her abdominal pain secondary to chronic cirrhosis. Patient has frequent admissions for complications of her cirrhosis, most recent from 01/05-01/14. Patient is not compliant with follow-ups at [facility] or with medications. She used to get weekly paracentesis but recently has not been able to get to her appointments due to lack of transportation. Recourses have been given per care coordination. Per chart review ED spoke with [facility] hepatology who recommended continue diuretics, drain abdomen and patient has follow up. GI was consulted. Patient underwent a paracentesis with 6L drained on 01/27. She remained on diuretics and rifaximin and lactulose throughout admission. Given the hypokalemia, GI lowered patients Bumex frequency to daily and increased the spironolactone dose to 200 mg. Discussed these changes with patient and she stated understanding. Patient not on BB for known portal hypertension for previous hypotension during prior hospitalization. Patient again underwent a paracentesis on 01/31 with 6200 ml removed. Albumin ordered per GI. Patient to keep scheduled appointment with [facility] hepatology. Patient noted to have edema to the right lower extremity. Venous dopplers obtained and negative for DVT. The extremity did not appear infected and continued to improve with diuretic use and elevation. Patient to continue diuretics as previously stated and elevation. Patient had continued anemia which remains at baseline. Likely of chronic disease related to cirrhosis. Denied any active bleeding. Hgb remained stable throughout admission. On day of discharge patient endorsed one episode of chest pain that she described as a sharp pain to the mid sternum that did not radiate. She denied any associated shortness of breath or diaphoresis. The pain was reproducible on exam. Troponin negative x2. Obtained a repeat EKG showed sinus rhythm with HR 74. The EKG machine read a possible lateral IA of indeterminant age. On self review there was no st changes and the EKG appeared unchanged form prior image on 01/27. Had the oncall vulcanized fiber unit operator review the EKG and he confirmed there was no significant change or IA concern. Returned to reevaluate patient and chest pain had resolved. Per RN patient reported that her father was unable to bring her oxygen tank to the facility on discharge. Care coordination spoke with respiratory therapy who will provide patient with a tank upon leaving. Patient was also provided a cab voucher per care coordination for transportation home as she was concerned about fathers ability to get her. At time of discharge patient endorsed slight abdominal discomfort at the p aracentesis site. She had no other complaints denying chest pain, palpitations, shortness of breath, nausea/vomiting, and dizziness/lightheadedness with ambulation. Patient discharged home with family in a stable condition. She is to follow up with her PCP in 1 week and keep her scheduled appointment with [facility]. Status at Discharge Functional status at discharge: independent ambulation Time Spent with Patient Time attestation: Total time spent providing and/or coordinating discharge services: Time spent: Greater than 30 minutes Exam Narrative: AF HR 84 RR 18 Spo2 93 3L NC baseline BP 107/58 General: Female in no acute respiratory distress who is nontoxic appearing, lying semi recumbent in bed. HEENT: Normocephalic. Atraumatic. Extraocular movement intact. Sclera clear and anicteric. No facial asymmetry. Chest: Lungs are clear to auscultation bilaterally. No wheezes or crackles. Speaking full sentences. CV: Heart was regular rate and rhythm. Abd: Abdomen nontender. Soft and less distended follow paracentesis. Umbilical hernia that is reducible, appears related to ascites. Positive bowel sounds. No redness/warmth/drainage to the paracentesis site. Ext: No clubbing, cyanosis. 1+ pitting edema to right lower ankle with trivial edema extending to mid calf, significantly improved. No redness, pain, warmth. No edema to the left. DP pulses bilaterally. Neuro: Patient is alert. Speech is clear. DS: Data Data Completed and Pending Completed studies during hospitalization: paracentesis us venous doppler paracentesis us chest xr Labs on day of discharge: Labs from last 24 hours 02/01/25 02/01/25 02/01/25 13:20 10:14 05:02 WBC 4.7 RBC 2.86 L Hgb 8.9 L Hct 28.4 L MCV 99.3 MCH 31.1 MCHC 31.3 L RDW 17.5 H Plt Count 91 L MPV 9.9 Sodium 128 L Potassium 3.5 Chloride 97 L Carbon Dioxide 26 Anion Gap 5 BUN 16 Creatinine 0.73 Estim Creat Clear Calc 96 Estimated GFR > 60 Glucose 80 Calcium 7.7 L Total Bilirubin 2.9 H AST 37 H ALT 13 Alkaline Phosphatase 85 Troponin I < 0.012 < 0.012 Total Protein 5.3 L Albumin 2.7 L Discharge Plan Discharge Attending physician on discharge: Brian Smith Oca Consulting providers: Gaby Garza Discharging Clinician: Gaby Garza Anticipated Discharge Date/Time: 02/01/25 14:32 Patient Disposition: Home Activity: as tolerated Diet: as tolerated and heart healthy Discharge Instructions: Discharge disposition: You have cirrhosis, a condition where your liver is scarred and does not work as well as it should. What to expect after paracentesis: * You may feel relief from belly swelling and discomfort. Some mild soreness or bruising at the needle site is normal and should improve in a few days. * Continue the oxycodone 5 mg every 6 hours as needed for breakthrough pain Do not drive or operate heavy machinery on this medication Attached is information on this medication Medications:? Bumetanide 2 mg daily and spironolactone 200 mg daily Continue rifaximin 550 mg twice a day and lactulose 30 gm every 6 hours Take your medicines exactly as prescribed Do not stop or change your medicines without talking to your doctor. Activity and follow-up: * Keep all follow-up appointments. Call for appointment next week at [facility] for continuity of care for paracentesis Caring for yourself at home: Watch for signs of infection:?Call your doctor if you have fever, chills, new or worsening belly pain, redness or swelling at the procedure site, or cloudy fluid leaking from your belly. Monitor for complications:?Seek help if you feel very weak, dizzy, confused, have trouble breathing, or notice swelling in your legs or sudden weight gain. Weigh yourself every day: Weigh yourself at the same time each morning, after using the bathroom and before eating. Write down your weight. If you gain more than 2 pounds in a day or 5 pounds in a week, call your doctor. This could mean you are holding onto more fluid. Elevate your legs: When sitting or lying down, try to keep your legs raised to help reduce swelling. Avoid standing for long periods if possible. Avoid alcohol and NSAIDs:?Do not drink alcohol, and avoid pain medicines like ibuprofen or naproxen, as these can harm your liver and kidneys. When to call your doctor or go to the ER: * Fever, chills, or new belly pain * Confusion or trouble waking up * Severe weakness or dizziness * Trouble breathing * Bleeding from the procedure site or anywhere else Monitor blood pressures Take caution while standing, rising, or moving Change positions slowly taking a break between each position change If you standing feel dizzy sit back down and take a break Encouraged to continue with yearly vaccinations Return to the emergency department if he developed sudden shortness of breath, chest pain, nausea, vomiting, upset stomach or intractable diarrhea Return to the emergency department if you develop fever greater than 100.5 Follow-up with the primary care physician within 1-2 weeks Thank you for [facility] for your healthcare needs Patient Instructions: Oxycodone, Rapid Release (By mouth), Cirrhosis of the Liver (DC), Using Oxygen at Home (DC), Ascites (DC) Patient Language: Icelandic Stand Alone Forms: General Discharge Information Follow-up/Referrals: Sue,MD Caio [Primary Care Provider, Unknown] - 1 Week Discharge Medications: New oxycodone 5 mg tablet 5 mg PO Q6H PRN (Reason: pain) 3 Days Qty: 12 0RF Continued docusate sodium 100 mg Capsule 100 mg PO BID PRN (Reason: Constipation) 90 Days Qty: 90 0RF folic acid 1 mg Tablet 1 mg PO DAILY 90 Days Qty: 90 0RF pantoprazole 40 mg Tablet,Delayed Release (Dr/Ec) 40 mg PO Q12HR 90 Days Qty: 180 0RF cholecalciferol (vitamin D3) 25 mcg (1,000 unit) Tablet 25 mcg PO DAILY 90 Days Qty: 90 0RF oxycodone 5 mg tablet 5 mg PO Q6H PRN (Reason: pain) Qty: 12 0RF levothyroxine [Synthroid] 150 mcg tablet 150 mcg PO DAILY Qty: 30 0RF lactulose 10 gram/15 mL Solution 30 g PO Q6H 30 Days Qty: 3600 0RF Patient Comments: did not receive a script but was on her dc list Xifaxan 550 mg Tablet 550 mg PO BID 90 Days Qty: 180 0RF Changed spironolactone [Aldactone] 100 mg tablet 200 mg PO DAILY 30 Days Qty: 30 0RF bumetanide 1 mg Tablet 2 mg PO DAILY 90 Days Qty: 180 0RF Discontinued potassium chloride 10 mEq capsule, extended release 20 meq PO DAILY 90 Days Qty: 180 0RF Date of admission: 01/27/25 15:25 Primary Care Provider: SueCaio Admitting Provider: Shanice Monge Attending physician on admission: Shanice Monge Condition: Stable Hospitalist MIPS Heart Failure (Exclusion) Patient has history of Heart Transplant or Left Ventricular Assistive Device?: No IF YES, STOP HERE Heart Failure (Qualifier) Patient has current or prior documentation of LVEF less than or equal to 40%, or mod/servere depressed LVSF?: No IF NO, STOP HERE
== END 2025-02-01 16:32 | disposition home or self-care (01) | DRG 433 ==
LOC: ANHED 13:30 → ANH3MEDSUR 15:33
PROVIDERS: Family Medicine; Nurse Practitioner Adult Health; Nurse Practitioner Family; Student in an Organized Health Care Education/Training Program; Admitting Provider Internal Medicine; Emergency Provider Emergency Medicine; PCP Internal Medicine Gastroenterology; Visit Provider Student in an Organized Health Care Education/Training Program
DX: K74.60 Unspecified cirrhosis of liver (principal); J96.11 Chronic respiratory failure with hypoxia; R18.8 Other ascites; K76.6 Portal hypertension; D64.9 Anemia, unspecified; E87.6 Hypokalemia; D63.8 Anemia in other chronic diseases classified elsewhere; E03.9 Hypothyroidism, unspecified; R07.9 Chest pain, unspecified; Z99.81 Dependence on supplemental oxygen; Z87.891 Personal history of nicotine dependence
CPT/HCPCS: 36415; 49083; 71045; 80053; 80069; 81001; 82248; 83690; 83735; 83880; 84133; 84300; 84439; 84443; 84480; 84484; 85025; 85027; 85610; 85730; 87086; 93005; 93971; 96374; 99285; A9270; G0378; J0696; J2405; P9047

== ENCOUNTER 2025-02-04 19:37 | Inpatient (IN) | payer BC, MEDICAID, SELFPAY ==
[2025-02-04] VITALS (28 sets, daily range): BP systolic 102–120; BP diastolic 59–80; PULSE 83–105; RESP 13–18; TEMP 36.6; O2SAT 86–100
--- NOTE | ~2025-02-04 | XR_ITS ---
EXAMINATION: XR foot RT min 3V DATE: 02/05/2025 10:50 INDICATION: Right foot pain and swelling TECHNIQUE: Dorsoplantar, two oblique and lateral views of the right foot were obtained. COMPARISON: None. FINDINGS: Alignment is normal. No fracture. Moderate osteoarthritis at the first metatarsophalangeal joint. Mild osteoarthritis. The tarsometatarsal and interphalangeal joints. Moderate-sized Achilles and plantar calcaneal spurs. Prominent soft tissue swelling over the dorsum of the foot and along the medial and anterior aspect of the ankle and visualized lower leg. IMPRESSION: 1. No acute osseous abnormality. 2. Polyarticular osteoarthritis in the mid and forefoot, moderate at the first metatarsophalangeal joint and otherwise mild. Reviewed, dictated and finalized at location A. ER PRICER
--- NOTE | ~2025-02-04 | US_ITS ---
EXAMINATION: US paracentesis abd w/image DATE: 02/08/2025 12:37 INDICATION: Ascites. TECHNIQUE: The procedure and its risks and benefits were discussed with the patient. Potential risks discussed included bleeding and infection. The skin was prepped and draped in sterile fashion. 1% lidocaine was used for local anesthesia. Under ultrasound guidance, a 5 Fr catheter with trochar was advanced into the ascites in the right lower quadrant. Fluid was aspirated into vacuum bottles. The catheter was removed, and a dressing was applied. There were no immediate complications. FINDINGS: Ultrasound images demonstrate ascites and the catheter within the fluid. IMPRESSION: 1. Successful ultrasound-guided paracentesis yielding 4000 mL of straw-colored fluid. Reviewed, dictated and finalized at location A. ARCHITECT
--- NOTE | ~2025-02-04 | US_ITS ---
EXAMINATION: US paracentesis abd w/image DATE: 02/05/2025 14:29 INDICATION: Ascites. TECHNIQUE: The procedure and its risks and benefits were discussed with the patient. Potential risks discussed included bleeding and infection. The skin was prepped and draped in sterile fashion. 1% lidocaine was used for local anesthesia. Under ultrasound guidance, a 5 Fr catheter with trochar was advanced into the ascites in the left lower quadrant. Fluid was aspirated into vacuum bottles. The catheter was removed, and a dressing was applied. There were no immediate complications. FINDINGS: Ultrasound images demonstrate ascites and the catheter within the fluid. IMPRESSION: 1. Successful ultrasound-guided paracentesis yielding 4750 mL of fidencio-colored fluid. Reviewed, dictated and finalized at location A. DINATE MEASURING EQUIPMENT OPERATOR
--- NOTE | ~2025-02-04 | XR_ITS ---
EXAMINATION: XR chest 1V portable 02/04/2025 21:02 INDICATION: Shortness of breath PROCEDURE: AP portable chest COMPARISON: Comparison to multiple prior studies sequentially, with oldest reviewed study dated 12/24/2024. FINDINGS: The lungs are clear. The cardiomediastinal silhouette is within normal limits. There are no pleural effusions. There is no pneumothorax suspected. There is dextroscoliosis of the thoracic spine. No acute osseous abnormality. IMPRESSION: 1: NO ACUTE CARDIOPULMONARY DISEASE. Reviewed, dictated and finalized at location O. DECORATOR
--- NOTE | 2025-02-04 21:22 | ED_ITS ---
HPI - General Adult General Chief complaint: Abdominal Pain Stated complaint: Abd pain/SOB-Needs abd drained Time Seen by Provider: 02/04/25 19:51 History of Present Illness HPI narrative: This is a 54-year-old female history of liver cirrhosis presenting for distended abdomen. Patient was recently admitted to our hospital and discharged after high volume paracentesis. She says that her fluid is quickly reaccumulated interim time abdomen is distended and she feels short of breath. She says her abdomen is painful. She denies fevers chills chest pain difficulty breathing or urinary symptoms. Related Data Allergies Allergy/AdvReac Type Severity Reaction Status Date / Time amoxicillin Allergy Hives Verified 01/27/25 15:25 latex Allergy Rash Verified 01/27/25 15:25 Penicillins Allergy Hives Verified 01/27/25 15:25 hydromorphone (From Dilaudid) AdvReac Itching Verified 01/27/25 15:25 PMFSH Past Medical History Medical History Otitis media when 10 yrs old Esophageal varices with bleeding Pulmonary edema Hypothyroidism SBP (spontaneous bacterial peritonitis) TAB positive Colon cancer screening Portal hypertension Thrombocytopenia Elevated liver enzymes Alcohol use Decompensation of cirrhosis of liver Nicotine dependence, cigarettes, with other nicotine-induced disorders 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 She has 1 child at the daughter and she states that the daughter had recently moved. She also states she did have her primary however primary recently left. She does wish to be a full code. All code status is were reviewed with the patient including DNR, DNI current pressors, BiPAP and CPAP. Patient wishes to be a full code at that time. She also likes her friend Franko to be her surrogate. Smoking packs per day: 0.5 Smoking cigarettes per day: 10.0 Years smoked: 5 Smoking pack-years: 2.50 Tobacco type: cigarettes Smoking end date: 10/30/23 Alcohol intake: former Drinks per week: 4 Substance use: never Substance use type: does not use Do You Feel Safe in your Home?: Yes Lack of Transportation: No Lack of Food: Never True Current Housing: I Have Housing Concerned About Future Housing: No Difficulty Paying Gas/Electric Bills: No Difficulty Paying for Meds: No Currently Unemployed: No Education: Associate Degree Difficulty w/ Childcare or Family Care: No Living arrangements: with family Occupation/Education: other Additional occupation/education comments: disability Gender identity (if verbalized by the patient): Female Sexual Orientation (if Verbalized by the Patient): Straight or Heterosexual Spiritual care concerns: No Agree to blood products: Yes Exam 2 Narrative: APPEARANCE: Chronically unwell appearing Head: atraumatic. EYES: EOMI, NOSE: Atraumatic NECK: Trachea midline RESPIRATORY: No increased rate of breathing on home oxygen CARDIOVASCULAR: RRR, ABDOMINAL: Distended, diffusely tender, fluid wave MUSCULOSKELETAl: No obvious deformities NEURO: Alert. Moving 4/4 extremities SKIN:: Warm, dry. Normal color PSYCHIATRIC: Normal affect Course Vital Signs Vital signs: Vital Signs Pulse Rate 92 02/04/25 19:47 Respiratory Rate 17 02/04/25 19:47 Blood Pressure 108/61 02/04/25 19:47 Pulse Oximetry 86 L 02/04/25 19:47 Temperature 97.8 F 02/04/25 21:27 Pulse Rate 85 02/04/25 22:31 Respiratory Rate 15 02/04/25 22:31 Blood Pressure 117/59 L 02/04/25 22:31 Pulse Oximetry 98 02/04/25 22:31 Oxygen Delivery Nasal Cannula 02/04/25 21:27 Oxygen Flow Rate 3 02/04/25 21:27 Procedures Paracentesis Paracentesis #1: Paracentesis Date: 02/05/25 Time Out Performed: Yes Local Anesthetic: lidocaine 1% Amount of anesthesia used (mL): 5 Fluid: clear and sent to lab for analysis Post Procedure Exam: awake, alert, normal BP, normal HR and normal SpO2 Patient Tolerated Procedure: well Complications: none Medical Decision Making MDM Narrative Medical decision making narrative: -Course: 54-year-old female with history of liver cirrhosis presenting for distended abdomen and abdominal pain. Patient was consented for paracentesis. Paracentesis performed in the usual manner with return of yellow fluid. However when placed to suction canister the flow stopped. We attempted placing drain to gravity which was very very slow. Unfortunately we do not have pigtails or Tiqw-R-[id number] kits in the ED which have been more effective in my experience. 200 cc of fluid were drained and sent to the lab to rule out SBP. SBP ruled out. Patient will need to be admitted for a large volume paracentesis. Consult placed to GI. -DDX includes but is not limited to: Ascites 2 liver cirrhosis, SBP, pneumonia, viral syndrome Vital Signs Vital Signs: Vital Signs Pulse Rate 92 02/04/25 19:47 Respiratory Rate 17 02/04/25 19:47 Blood Pressure 108/61 02/04/25 19:47 Pulse Oximetry 86 L 02/04/25 19:47 Temperature 97.8 F 02/04/25 21:27 Pulse Rate 85 02/04/25 22:31 Respiratory Rate 15 02/04/25 22:31 Blood Pressure 117/59 L 02/04/25 22:31 Pulse Oximetry 98 02/04/25 22:31 Oxygen Delivery Nasal Cannula 02/04/25 21:27 Oxygen Flow Rate 3 02/04/25 21:27 Lab Data 02/04/25 21:29 02/04/25 21:29 Labs: Lab Results 02/04/25 02/04/25 02/04/25 Range/Units 21:29 21:29 23:17 WBC 7.5 (4.5-10.0) K/mm3 RBC 3.17 L (4.2-5.4) M/mm3 Hgb 10.0 L (12.0-15.0) g/dL Hct 31.1 L (37.0-47.0) % MCV 98.1 (80-100) fl MCH 31.5 (26-34) pg MCHC 32.2 (32-36) g/dl RDW 17.7 H (11.5-14.5) % Plt Count 102 L (150-375) k/mm3 MPV 10.0 (7.4-10.4) fl Immature Gran % (Auto) Not Reportable Neut % (Auto) Not Reportable Lymph % (Auto) Not Reportable [place] % (Auto) Not Reportable Eos % (Auto) Not Reportable Baso % (Auto) Not Reportable Lymph # (Auto) Not Reportable [place] # (Auto) Not Reportable Eos # (Auto) Not Reportable Baso # (Auto) Not Reportable Abs Immat Gran (auto) Not Reportable Absolute Neuts (auto) Not Reportable Absolute Nucleated RBC Not Reportable Total Counted 100 Neutrophils % (Manual) 55 (46-73) % Band Neutrophils % 0 (0-6) % Lymphocytes % (Manual) 21 (18-44) % Monocytes % (Manual) 20 H (3-9) % Eosinophils % (Manual) 4 (0-4) % Nucleated RBC % Not Reportable Abs Neuts (Manual) 4.12 (1.3-6.7) K/mm3 Abs Lymphs (Manual) 1.57 (1.1-4.5) K/mm3 Abs Monocytes (Manual) 1.50 H (0.1-0.90) K/mm3 Absolute Eos (Manual) 0.30 (0.02-0.50) K/mm3 Platelet Estimate Decreased (Adequate) Anisocytosis 1+ Ovalocytes Occasional Schistocytes None seen PT 17.1 H (11.1-14.7) Seconds INR 1.4 APTT 36.5 (22.3-36.8) Seconds Sodium 130 L (137-145) mmol/L Potassium 3.7 (3.4-5.0) mmol/L Chloride 99 (98-107) mmol/L Carbon Dioxide 27 (22-30) mmol/L Anion Gap 4 (4-12) mmol/L BUN 17 (7-17) mg/dL Creatinine 0.90 (0.7-1.0) mg/dL Estim Creat Clear Calc Not Reportable Estimated GFR > 60 (59 - ) Glucose 89 (65-110) mg/dL Calcium 8.3 L (8.4-10.2) mg/dL Total Bilirubin 2.3 H (0.2-1.3) mg/dL AST 34 (14-36) U/L ALT 16 (6-35) U/L Alkaline Phosphatase 137 H (38-126) U/L Total Protein 5.9 L (6.3-8.2) g/dL Albumin 2.8 L 2.9 L (3.5-5.1) g/dL Fluid Glucose Pending Fluid Albumin Pending Fluid LDH Pending Fluid Amylase Pending Peritoneal Source Peritoneal fluid Peritoneal Color Yellow (Colorless) Peritoneal Appearance Clear (Clear) Peritoneal RBC 2000 (0-44668) /uL Periton Nuc Cells 75 (0-500) /uL Periton Neutrophils 1 (0-25) % Periton Lymphocytes 57 % Peritoneal Monocytes 7 % Periton Macrophages 35 % Peritoneal Tot Protein Pending Influenza A (RT-PCR) Negative (Negative) Influenza B (RT-PCR) Negative (Negative) RSV (RT-PCR) Negative (Negative) SARS-CoV-2 RNA (RT-PCR) Negative (Negative) Discharge Plan Discharge Clinical Impression: Ascites Cirrhosis of liver Qualifiers: Hepatic cirrhosis type: unspecified hepatic cirrhosis Ascites presence: with ascites Qualified Code(s): K74.60 - Unspecified cirrhosis of liver Patient Disposition: Still a Patient Condition: Stable Instructions: Antibiotic Form Patient Language: Burundian Prescriptions: No Action spironolactone [Aldactone] 100 mg tablet 200 mg PO DAILY 30 Days Qty: 30 0RF bumetanide 1 mg Tablet 2 mg PO DAILY 90 Days Qty: 180 0RF oxycodone 5 mg tablet 5 mg PO Q6H PRN (Reason: pain) 3 Days Qty: 12 0RF docusate sodium 100 mg Capsule 100 mg PO BID PRN (Reason: Constipation) 90 Days Qty: 90 0RF folic acid 1 mg Tablet 1 mg PO DAILY 90 Days Qty: 90 0RF pantoprazole 40 mg Tablet,Delayed Release (Dr/Ec) 40 mg PO Q12HR 90 Days Qty: 180 0RF cholecalciferol (vitamin D3) 25 mcg (1,000 unit) Tablet 25 mcg PO DAILY 90 Days Qty: 90 0RF oxycodone 5 mg tablet 5 mg PO Q6H PRN (Reason: pain) Qty: 12 0RF levothyroxine [Synthroid] 150 mcg tablet 150 mcg PO DAILY Qty: 30 0RF lactulose 10 gram/15 mL Solution 30 g PO Q6H 30 Days Qty: 3600 0RF Patient Comments: did not receive a script but was on her dc list Xifaxan 550 mg Tablet 550 mg PO BID 90 Days Qty: 180 0RF Follow-up/Referrals: Agbienmanuel,MD Caio [Primary Care Provider, Unknown]
[2025-02-04 21:35] LABS: Hematocrit 31.1 % (37.0-47.0); Hemoglobin 10.0 g/dL (12.0-15.0); Mean Corpuscular HGB Conc 32.2 g/dl (32-36); Mean Corpuscular Hemoglobin 31.5 pg (26-34); Mean Corpuscular Volume 98.1 fl (80-100); Platelet Count Result 102 k/mm3 (150-375); Red Blood Count 3.17 M/mm3 (4.2-5.4); White Blood Count 7.5 K/mm3 (4.5-10.0)
[2025-02-04 21:46] LABS: Albumin Level 2.9 g/dL (3.5-5.1)
[2025-02-04 21:47] LABS: INR 1.4; Prothrombin Time 17.1 Seconds (11.1-14.7)
[2025-02-04 21:48] LABS: Partial Thromboplastin Time 36.5 Seconds (22.3-36.8)
[2025-02-04 21:49] LABS: Alanine Aminotransferase 16 U/L (6-35); Albumin Level 2.8 g/dL (3.5-5.1); Alkaline Phosphatase 137 U/L (38-126); Anion Gap 4 mmol/L (4-12); Aspartate Amino Transferase 34 U/L (14-36); Bilirubin,Total 2.3 mg/dL (0.2-1.3); Blood Urea Nitrogen 17 mg/dL (7-17); Calcium 8.3 mg/dL (8.4-10.2); Carbon Dioxide 27 mmol/L (22-30); Chloride 99 mmol/L (98-107); Estimated Glomerular Filt Rate > 60; Glucose 89 mg/dL (65-110); Potassium 3.7 mmol/L (3.4-5.0); Sodium 130 mmol/L (137-145); Total Protein 5.9 g/dL (6.3-8.2)
[2025-02-04 21:52] LABS: Neutrophils Percent Manual 55 % (46-73); Total Cells Counted 100
[2025-02-04 21:53] LABS: Anisocytosis 1+; Eosinophils Absolute Manual 0.30 K/mm3 (0.02-0.50); Eosinophils Percent Manual 4 % (0-4); Lymphocytes Absolute Manual 1.57 K/mm3 (1.1-4.5); Lymphocytes Percent Manual 21 % (18-44); Monocytes Absolute Manual 1.50 K/mm3 (0.1-0.90); Monocytes Percent Manual 20 % (3-9); Ovalocytes Occasional; Schistocytes None Seen
[2025-02-04 21:54] LABS: Band Neutrophils Percent 0 % (0-6); Neutrophils Absolute Manual 4.12 K/mm3 (1.3-6.7)
[2025-02-04 22:12] LABS: Influenza A QL RT-PCR Negative (Negative); Influenza B QL RT-PCR Negative (Negative); RSV RNA, RT-PCR Negative (Negative); SARS-CoV-2 RNA PCR Negative (Negative)
[2025-02-05] VITALS (30 sets, daily range): BP systolic 90–120; BP diastolic 52–88; PULSE 72–85; RESP 12–17; TEMP 36.1–36.3; O2SAT 94–99; BMI 33.5
[2025-02-05 01:24] LABS: Appearance Peritoneal Fluid Clear (Clear); Color Peritoneal Fluid Yellow (Colorless); Nucleated Cells Peritoneal Flu 75 /uL (0-500); Source Peritoneal Fluid Peritoneal Fluid
[2025-02-05 01:30] LABS: Lymphocytes Peritoneal Fluid 57 %; Macrophages Peritoneal Fluid 35 %; Monocytes Peritoneal Fluid 7 %; Neutrophils Peritoneal Fluid 1 % (0-25)
[2025-02-05] MEDS: HYDROmorphone HCL INJ (*CRX) 1 MG/ML SYR 0.5 MG IV PUSH (02:04)
--- NOTE | 2025-02-05 04:08 | ADMGEN ---
This patient, Nasreen Orozco, was admitted to [facility] Surg Room 306-02. Patient/family oriented to hospital policies and general routines including ID bracelet, bed and alarms, visiting hours, pain management, procedures, bathroom and other care routines, personal items, smoking policy, room service/diet, and visiting hours. Information on how to activate the Rapid Response Team has been discussed. Patient/Family are encouraged to report perceived risks to care and to ask questions if they do not understand what they are told or what they should do.
[2025-02-05] MEDS: MORPHINE SULFATE (*CRX) 4 MG/ML INJ 2 MG IV PUSH (11:10)
[2025-02-05] MEDS: LACTULOSE 20 GM/30 ML UDC 30 GM PO ×3 (12:31→23:19)
[2025-02-05] MEDS: BUMETANIDE 1 MG TABLET 2 MG PO (12:34)
[2025-02-05] MEDS: SPIRONOLACTONE 50 MG TABLET 200 MG PO (12:34)
--- NOTE | 2025-02-05 15:04 | P.CONGI_ITS ---
Assessment and Plan Assessment and plan (1) Decompensation of cirrhosis of liver: Code(s): K72.90 - Hepatic failure, unspecified without coma; K74.60 - Unspecified cirrhosis of liver Status: Acute Assessment and Plan: with recurrent ascites, removed 4.7 liters continue same dose of diuretics (normal k and renal function), also continue 2 g na diet she will need to set up for outpatient paracentesis- she has been getting every week, fluid negative for SBP she can go home and follow-up with substation operator transforming at [facility] and eventually start liver transplant evaluation MELD score this time 13 h/o liver encephalopathy, TIPS will be challenging (2) 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: Code(s): K75.81 - Nonalcoholic steatohepatitis (BACON); K74.60 - Unspecified cirrhosis of liver Status: Chronic (3) Ascites: Qualifiers: Ascites type: other type Qualified Code(s): R18.8 - Other ascites Code(s): R18.8 - Other ascites Status: Acute Assessment and Plan: s/p paracentesis, negative for sbp (4) Thrombocytopenia: Code(s): D69.6 - Thrombocytopenia, unspecified Status: Chronic Assessment and Plan: stable (5) Elevated liver enzymes: Code(s): R74.8 - Abnormal levels of other serum enzymes Status: Acute Assessment and Plan: stable GI Consult Note Consult date/time: 02/05/25 15:04 Reason for consult: decompensated cirrhosis with ascites HPI: Nasreen Orozco is a 54 year old female who is known to our service with decompensated cirrhosis with ascites (secondary to MASH but has elevated TAB), portal hypertension, chronic respiratory failure on 3 L nasal cannula. she has multiple hospitalization after recurrent ascites that requires paracentesis. She is supposed to follow-up with [facility] substation operator transforming and get paracentesis every week as outpatient. She is currently on bumex and aldactone. She is back again with increase abdominal girth and more abdominal discomfort (she was just released). Denies fever, nausea. Also previous history of liver encephalopathy on xifaxan. Last night admitted to await paracentesis, today had 4.7 liters removed, fluid without SBP. Review of Systems 2 Constitutional: Constitutional: Denies chills Eyes: Eyes: Denies blurry vision ENT: Reports Normal hearing present Cardiovascular: Cardiovascular: Denies chest pain Respiratory: Respiratory: Denies cough Gastrointestinal: Gastrointestinal: Reports bloating Genitourinary: Genitourinary: Denies urinary urgency Musculoskeletal: Musculoskeletal: Denies neck pain Integumentary/Breasts: Skin/Breast: Reports dry skin Neurologic: Denies confusion Psychiatric: Psychiatric: Denies behavioral changes [facility] Past Medical History Medical History Otitis media when 10 yrs old Esophageal varices with bleeding Pulmonary edema Hypothyroidism SBP (spontaneous bacterial peritonitis) TAB positive Colon cancer screening Portal hypertension Thrombocytopenia Elevated liver enzymes Alcohol use Decompensation of cirrhosis of liver Nicotine dependence, cigarettes, with other nicotine-induced disorders 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 She has 1 child at the daughter and she states that the daughter had recently moved. She also states she did have her primary however primary recently left. She does wish to be a full code. All code status is were reviewed with the patient including DNR, DNI current pressors, BiPAP and CPAP. Patient wishes to be a full code at that time. She also likes her friend Franko to be her surrogate. Smoking packs per day: 0.5 Smoking cigarettes per day: 10.0 Years smoked: 5 Smoking pack-years: 2.50 Smoking status: Former smoker Tobacco type: cigarettes Smoking end date: 10/30/23 Alcohol intake: former Drinks per week: 4 Substance use: never Substance use type: does not use Do You Feel Safe in your Home?: Yes Lack of Transportation: No Lack of Food: Never True Current Housing: I Have Housing Concerned About Future Housing: No Difficulty Paying Gas/Electric Bills: No Difficulty Paying for Meds: No Currently Unemployed: No Education: Associate Degree Difficulty w/ Childcare or Family Care: No Living arrangements: with family Occupation/Education: other Additional occupation/education comments: disability Gender identity (if verbalized by the patient): Female Sexual Orientation (if Verbalized by the Patient): Straight or Heterosexual Spiritual care concerns: No Agree to blood products: Yes Meds Home Medications and Allergies Home Medications ?Medication ?Instructions ?Recorded ?Confirmed ?Type docusate sodium 100 mg capsule 100 mg PO BID PRN Const ipation 90 12/27/24 02/05/25 Rx days #90 caps folic acid 1 mg tablet 1 mg PO DAILY 90 days #90 ta bs 12/27/24 02/05/25 Rx pantoprazole 40 mg tablet,delayed 40 mg PO Q12HR 90 da ys #180 tabs 12/27/24 02/05/25 Rx release cholecalciferol (vitamin D3) 25 25 mcg PO DAILY 90 day s #90 tabs 12/30/24 02/05/25 Rx mcg (1,000 unit) tablet lactulose 10 gram/15 mL oral 30 g (45 mL) PO Q6H 30 da ys #3,600 01/14/25 02/05/25 Rx solution mL levothyroxine 150 mcg tablet 150 mcg PO DAILY #30 tabs 01/14/25 02/05/25 Rx (Synthroid) oxycodone 5 mg tablet 5 mg PO Q6H PRN pain #12 tab s 01/14/25 02/05/25 Rx rifaximin 550 mg tablet (Xifaxan) 550 mg PO BID 90 day s #180 tabs 01/14/25 02/05/25 Rx bumetanide 1 mg tablet 2 mg (2 x 1 mg) PO DAILY 90 days 02/01/25 02/05/25 Rx #180 tabs oxycodone 5 mg tablet 5 mg PO Q6H PRN pain 3 days #12 02/01/25 02/05/25 Rx tabs spironolactone 100 mg tablet 200 mg (2 x 100 mg) PO DA JERAD 30 02/01/25 02/05/25 Rx (Aldactone) days #30 tabs Allergies Allergy/AdvReac Type Severity Reaction Status Date / Time amoxicillin Allergy Hives Verified 02/05/25 04:31 latex Allergy Rash Verified 02/05/25 04:31 Penicillins Allergy Hives Verified 02/05/25 04:31 hydromorphone (From Dilaudid) AdvReac Itching Verified 02/05/25 04:31 Vital Signs Vital Signs - 24 hr 02/04/25 19:47 02/04/25 19:48 02/04/25 20:00 Temperature Pulse Rate 92 90 90 Respiratory Rate 17 15 16 Blood Pressure 108/61 Pulse Oximetry 86 L 96 96 Oxygen Delivery Oxygen Flow Rate 02/04/25 20:01 02/04/25 20:15 02/04/25 20:52 Temperature Pulse Rate 91 93 92 Respiratory Rate 16 16 14 Blood Pressure 117/66 Pulse Oximetry 96 97 97 Oxygen Delivery Oxygen Flow Rate 02/04/25 21:00 02/04/25 21:01 02/04/25 21:15 Temperature Pulse Rate 91 92 89 Respiratory Rate 18 16 16 Blood Pressure 120/80 Pulse Oximetry 92 94 97 Oxygen Delivery Oxygen Flow Rate 02/04/25 21:16 02/04/25 21:27 02/04/25 21:30 Temperature 97.8 F Pulse Rate 89 89 87 Respiratory Rate 17 16 16 Blood Pressure 111/63 111/63 111/63 Pulse Oximetry 97 97 97 Oxygen Delivery Nasal Cannula Oxygen Flow Rate 3 02/04/25 21:36 02/04/25 21:45 02/04/25 21:46 Temperature Pulse Rate 105 H 102 H 96 Respiratory Rate 15 16 15 Blood Pressure 109/68 Pulse Oximetry 98 97 97 Oxygen Delivery Oxygen Flow Rate 02/04/25 22:00 02/04/25 22:01 02/04/25 22:27 Temperature Pulse Rate 85 95 84 Respiratory Rate 15 16 13 Blood Pressure 108/61 Pulse Oximetry 97 98 98 Oxygen Delivery Oxygen Flow Rate 02/04/25 22:30 02/04/25 22:31 02/04/25 22:32 Temperature Pulse Rate 91 85 85 Respiratory Rate 15 15 15 Blood Pressure 117/59 L Pulse Oximetry 98 98 98 Oxygen Delivery Oxygen Flow Rate 02/04/25 22:45 02/04/25 22:46 02/04/25 23:17 Temperature Pulse Rate 84 101 H 87 Respiratory Rate 15 15 16 Blood Pressure 103/63 Pulse Oximetry 98 99 98 Oxygen Delivery Oxygen Flow Rate 02/04/25 23:30 02/04/25 23:31 02/04/25 23:45 Temperature Pulse Rate 84 87 83 Respiratory Rate 15 14 14 Blood Pressure 113/72 Pulse Oximetry 98 98 100 Oxygen Delivery Oxygen Flow Rate 02/04/25 23:46 02/05/25 00:00 02/05/25 00:01 Temperature Pulse Rate 85 85 82 Respiratory Rate 15 13 14 Blood Pressure 102/69 114/69 Pulse Oximetry 100 99 99 Oxygen Delivery Oxygen Flow Rate 02/05/25 00:15 02/05/25 00:16 02/05/25 00:30 Temperature Pulse Rate 84 85 85 Respiratory Rate 14 14 14 Blood Pressure 117/70 Pulse Oximetry 97 98 97 Oxygen Delivery Oxygen Flow Rate 02/05/25 00:31 02/05/25 00:45 02/05/25 00:46 Temperature Pulse Rate 82 81 84 Respiratory Rate 14 15 17 Blood Pressure 109/66 90/63 L Pulse Oximetry 97 97 97 Oxygen Delivery Oxygen Flow Rate 02/05/25 01:00 02/05/25 01:01 02/05/25 01:15 Temperature Pulse Rate 83 85 80 Respiratory Rate 15 13 14 Blood Pressure 113/67 Pulse Oximetry 98 98 98 Oxygen Delivery Oxygen Flow Rate 02/05/25 01:16 02/05/25 01:30 02/05/25 01:31 Temperature Pulse Rate 82 80 81 Respiratory Rate 15 16 14 Blood Pressure 106/72 110/88 Pulse Oximetry 98 98 98 Oxygen Delivery Oxygen Flow Rate 02/05/25 01:45 02/05/25 02:00 02/05/25 02:01 Temperature Pulse Rate 82 82 81 Respiratory Rate 15 15 13 Blood Pressure 112/71 Pulse Oximetry Oxygen Delivery Oxygen Flow Rate 02/05/25 02:02 02/05/25 02:20 02/05/25 02:30 Temperature Pulse Rate 80 81 81 Respiratory Rate 16 14 12 Blood Pressure Pulse Oximetry 96 97 Oxygen Delivery Oxygen Flow Rate 02/05/25 02:31 02/05/25 02:32 02/05/25 05:54 Temperature 97.1 F L Pulse Rate 83 82 72 Respiratory Rate 14 13 16 Blood Pressure 117/71 120/70 Pulse Oximetry 97 97 99 Oxygen Delivery Oxygen Flow Rate 02/05/25 09:45 02/05/25 12:17 02/05/25 14:00 Temperature 96.9 F L Pulse Rate 75 82 Respiratory Rate 14 Blood Pressure 114/67 107/61 Pulse Oximetry 99 98 Oxygen Delivery Nasal Cannula Oxygen Flow Rate 3 Exam 2 Const: General: comfortable and no acute distress Other: A&O x3 HENMT: Mouth: Yes moist mucous membranes Eyes: Pupils: Equal, round and reactive pupils present Neck: Neck: supple Resp: Effort & Inspection: normal respiratory effort Auscultation: clear to auscultation bilaterally Cardio: Rate: regular rate Rhythm: regular rhythm Heart sounds: no murmurs GI: Inspection: distended GI Palp: No Guarding due to palpation present (GI) and Yes Hernia present umbilical Other: + fluid wave c/w ascites mild pain, no rebound Skin: General skin exam: normal color Neuro: Speech: normal speech Motor exam (neuro): 5/5 motor strength present throughout Extrem: General: edema (Rt>Lt) Psych: Mental Status: mental status grossly normal Results Labs 02/04/25 21:29 02/04/25 21:29 Labs: Short CBC 02/04/25 Range/Units 21:29 WBC 7.5 (4.5-10.0) K/mm3 Hgb 10.0 L (12.0-15.0) g/dL Hct 31.1 L (37.0-47.0) % Plt Count 102 L (150-375) k/mm3 BMP 02/04/25 21:29 Sodium 130 L Potassium 3.7 Chloride 99 Carbon Dioxide 27 BUN 17 Creatinine 0.90 Glucose 89 Calcium 8.3 L Liver Function 02/04/25 02/04/25 Range/Units 21:29 21:29 Total Bilirubin 2.3 H (0.2-1.3) mg/dL AST 34 (14-36) U/L ALT 16 (6-35) U/L Alkaline Phosphatase 137 H (38-126) U/L Albumin 2.8 L 2.9 L (3.5-5.1) g/dL
--- NOTE | 2025-02-05 17:33 | P.HP_ITS ---
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 She had just been discharged 02/01/2025, advised to follow-up with [facility] hepatology. She has not been able to get paracentesis set up. Reports increasingly worse distended abdomen with pain. She takes oxycodone chronically. She reports being compliant with the medications she was discharged on spironolactone bumetanide and others. In the ER she had a paracentesis performed however only 200 cc removed. Review of Systems Review of Systems: All systems reviewed & are unremarkable except as noted in HPI and below (Subjective) PMFSH Past Medical History Medical History Otitis media when 10 yrs old Esophageal varices with bleeding Pulmonary edema Hypothyroidism SBP (spontaneous bacterial peritonitis) TAB positive Colon cancer screening Portal hypertension Thrombocytopenia Elevated liver enzymes Alcohol use Decompensation of cirrhosis of liver Nicotine dependence, cigarettes, with other nicotine-induced disorders 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 She has 1 child at the daughter and she states that the daughter had recently moved. She also states she did have her primary however primary recently left. She does wish to be a full code. All code status is were reviewed with the patient including DNR, DNI current pressors, BiPAP and CPAP. Patient wishes to be a full code at that time. She also likes her friend Franko to be her surrogate. Smoking packs per day: 0.5 Smoking cigarettes per day: 10.0 Years smoked: 5 Smoking pack-years: 2.50 Smoking status: Former smoker Tobacco type: cigarettes Smoking end date: 10/30/23 Alcohol intake: former Drinks per week: 4 Substance use: never Substance use type: does not use Do You Feel Safe in your Home?: Yes Lack of Transportation: No Lack of Food: Never True Current Housing: I Have Housing Concerned About Future Housing: No Difficulty Paying Gas/Electric Bills: No Difficulty Paying for Meds: No Currently Unemployed: No Education: Associate Degree Difficulty w/ Childcare or Family Care: No Living arrangements: with family Occupation/Education: other Additional occupation/education comments: disability Gender identity (if verbalized by the patient): Female Sexual Orientation (if Verbalized by the Patient): Straight or Heterosexual Spiritual care concerns: No Agree to blood products: Yes Meds Home Medications and Allergies Home Medications ?Medication ?Instructions ?Recorded ?Confirmed ?Type docusate sodium 100 mg capsule 100 mg PO BID PRN Const ipation 90 12/27/24 02/05/25 Rx days #90 caps folic acid 1 mg tablet 1 mg PO DAILY 90 days #90 ta bs 12/27/24 02/05/25 Rx pantoprazole 40 mg tablet,delayed 40 mg PO Q12HR 90 da ys #180 tabs 12/27/24 02/05/25 Rx release cholecalciferol (vitamin D3) 25 25 mcg PO DAILY 90 day s #90 tabs 12/30/24 02/05/25 Rx mcg (1,000 unit) tablet lactulose 10 gram/15 mL oral 30 g (45 mL) PO Q6H 30 da ys #3,600 01/14/25 02/05/25 Rx solution mL levothyroxine 150 mcg tablet 150 mcg PO DAILY #30 tabs 01/14/25 02/05/25 Rx (Synthroid) oxycodone 5 mg tablet 5 mg PO Q6H PRN pain #12 tab s 01/14/25 02/05/25 Rx rifaximin 550 mg tablet (Xifaxan) 550 mg PO BID 90 day s #180 tabs 01/14/25 02/05/25 Rx bumetanide 1 mg tablet 2 mg (2 x 1 mg) PO DAILY 90 days 02/01/25 02/05/25 Rx #180 tabs oxycodone 5 mg tablet 5 mg PO Q6H PRN pain 3 days #12 02/01/25 02/05/25 Rx tabs spironolactone 100 mg tablet 200 mg (2 x 100 mg) PO DA JERAD 30 02/01/25 02/05/25 Rx (Aldactone) days #30 tabs Allergies Allergy/AdvReac Type Severity Reaction Status Date / Time amoxicillin Allergy Hives Verified 02/05/25 04:31 latex Allergy Rash Verified 02/05/25 04:31 Penicillins Allergy Hives Verified 02/05/25 04:31 hydromorphone (From Dilaudid) AdvReac Itching Verified 02/05/25 04:31 Vital Signs Vital Signs - 24 hr 02/04/25 19:47 02/04/25 19:48 02/04/25 20:00 Temperature Pulse Rate 92 90 90 Respiratory Rate 17 15 16 Blood Pressure 108/61 Pulse Oximetry 86 L 96 96 Oxygen Delivery Oxygen Flow Rate 02/04/25 20:01 02/04/25 20:15 02/04/25 20:52 Temperature Pulse Rate 91 93 92 Respiratory Rate 16 16 14 Blood Pressure 117/66 Pulse Oximetry 96 97 97 Oxygen Delivery Oxygen Flow Rate 02/04/25 21:00 02/04/25 21:01 02/04/25 21:15 Temperature Pulse Rate 91 92 89 Respiratory Rate 18 16 16 Blood Pressure 120/80 Pulse Oximetry 92 94 97 Oxygen Delivery Oxygen Flow Rate 02/04/25 21:16 02/04/25 21:27 02/04/25 21:30 Temperature 97.8 F Pulse Rate 89 89 87 Respiratory Rate 17 16 16 Blood Pressure 111/63 111/63 111/63 Pulse Oximetry 97 97 97 Oxygen Delivery Nasal Cannula Oxygen Flow Rate 3 02/04/25 21:36 02/04/25 21:45 02/04/25 21:46 Temperature Pulse Rate 105 H 102 H 96 Respiratory Rate 15 16 15 Blood Pressure 109/68 Pulse Oximetry 98 97 97 Oxygen Delivery Oxygen Flow Rate 02/04/25 22:00 02/04/25 22:01 02/04/25 22:27 Temperature Pulse Rate 85 95 84 Respiratory Rate 15 16 13 Blood Pressure 108/61 Pulse Oximetry 97 98 98 Oxygen Delivery Oxygen Flow Rate 02/04/25 22:30 02/04/25 22:31 02/04/25 22:32 Temperature Pulse Rate 91 85 85 Respiratory Rate 15 15 15 Blood Pressure 117/59 L Pulse Oximetry 98 98 98 Oxygen Delivery Oxygen Flow Rate 02/04/25 22:45 02/04/25 22:46 02/04/25 23:17 Temperature Pulse Rate 84 101 H 87 Respiratory Rate 15 15 16 Blood Pressure 103/63 Pulse Oximetry 98 99 98 Oxygen Delivery Oxygen Flow Rate 02/04/25 23:30 02/04/25 23:31 02/04/25 23:45 Temperature Pulse Rate 84 87 83 Respiratory Rate 15 14 14 Blood Pressure 113/72 Pulse Oximetry 98 98 100 Oxygen Delivery Oxygen Flow Rate 02/04/25 23:46 02/05/25 00:00 02/05/25 00:01 Temperature Pulse Rate 85 85 82 Respiratory Rate 15 13 14 Blood Pressure 102/69 114/69 Pulse Oximetry 100 99 99 Oxygen Delivery Oxygen Flow Rate 02/05/25 00:15 02/05/25 00:16 02/05/25 00:30 Temperature Pulse Rate 84 85 85 Respiratory Rate 14 14 14 Blood Pressure 117/70 Pulse Oximetry 97 98 97 Oxygen Delivery Oxygen Flow Rate 02/05/25 00:31 02/05/25 00:45 02/05/25 00:46 Temperature Pulse Rate 82 81 84 Respiratory Rate 14 15 17 Blood Pressure 109/66 90/63 L Pulse Oximetry 97 97 97 Oxygen Delivery Oxygen Flow Rate 02/05/25 01:00 02/05/25 01:01 02/05/25 01:15 Temperature Pulse Rate 83 85 80 Respiratory Rate 15 13 14 Blood Pressure 113/67 Pulse Oximetry 98 98 98 Oxygen Delivery Oxygen Flow Rate 02/05/25 01:16 02/05/25 01:30 02/05/25 01:31 Temperature Pulse Rate 82 80 81 Respiratory Rate 15 16 14 Blood Pressure 106/72 110/88 Pulse Oximetry 98 98 98 Oxygen Delivery Oxygen Flow Rate 02/05/25 01:45 02/05/25 02:00 02/05/25 02:01 Temperature Pulse Rate 82 82 81 Respiratory Rate 15 15 13 Blood Pressure 112/71 Pulse Oximetry Oxygen Delivery Oxygen Flow Rate 02/05/25 02:02 02/05/25 02:20 02/05/25 02:30 Temperature Pulse Rate 80 81 81 Respiratory Rate 16 14 12 Blood Pressure Pulse Oximetry 96 97 Oxygen Delivery Oxygen Flow Rate 02/05/25 02:31 02/05/25 02:32 02/05/25 05:54 Temperature 97.1 F L Pulse Rate 83 82 72 Respiratory Rate 14 13 16 Blood Pressure 117/71 120/70 Pulse Oximetry 97 97 99 Oxygen Delivery Oxygen Flow Rate 02/05/25 09:45 02/05/25 12:17 02/05/25 14:00 Temperature 96.9 F L Pulse Rate 75 82 Respiratory Rate 14 Blood Pressure 114/67 107/61 Pulse Oximetry 99 98 Oxygen Delivery Nasal Cannula Oxygen Flow Rate 3 Exam Const: General: comfortable and no acute distress Other: A&O x4 HENMT: Mouth: Yes moist mucous membranes Eyes: Pupils: Equal, round and reactive pupils present Neck: Neck: supple Resp: Effort & Inspection: normal respiratory effort Auscultation: clear to auscultation bilaterally Cardio: Rate: regular rate Rhythm: regular rhythm GI: Inspection: distended GI Palp: Yes Soft to palpation and Yes Tenderness to palpation present (GI) Neuro: Motor exam (neuro): 5/5 motor strength present throughout Extrem: General: edema H&P: Results Labs Labs: Short CBC 02/04/25 Range/Units 21:29 WBC 7.5 (4.5-10.0) K/mm3 Hgb 10.0 L (12.0-15.0) g/dL Hct 31.1 L (37.0-47.0) % Plt Count 102 L (150-375) k/mm3 BMP 02/04/25 21:29 Sodium 130 L Potassium 3.7 Chloride 99 Carbon Dioxide 27 BUN 17 Creatinine 0.90 Glucose 89 Calcium 8.3 L Liver Function 02/04/25 02/04/25 Range/Units 21:29 21:29 Total Bilirubin 2.3 H (0.2-1.3) mg/dL AST 34 (14-36) U/L ALT 16 (6-35) U/L Alkaline Phosphatase 137 H (38-126) U/L Albumin 2.8 L 2.9 L (3.5-5.1) g/dL Assessment and Plan Assessment and plan (1) Cirrhosis of liver with ascites: Qualifiers: Hepatic cirrhosis type: unspecified hepatic cirrhosis Qualified Code(s): K74.60 - Unspecified cirrhosis of liver; R18.8 - Other ascites Code(s): K74.60 - Unspecified cirrhosis of liver; R18.8 - Other ascites Status: Acute Plan Nasreen Orozco is a 54 year old female liver cirrhosis with ascites (secondary to MASH but has elevated TAB), portal hypertension, hypothyroidism, chronic respiratory failure on 3 L nasal cannula presented to the ED on 01/27/2025 with complaints of abdominal pain requesting a paracentesis. She had just been discharged 02/01/2025, advised to follow-up with [facility] hepatology. She has not been able to get paracentesis set up. Reports increasingly worse distended abdomen with pain. She takes oxycodone chronically. She reports being compliant with the medications she was discharged on spironolactone bumetanide and others. In the ER she had a paracentesis performed however only 200 cc removed. ----- Ascitic fluid sent to lab ruled out SBP. GI consulted. Advised paracentesis with radiology. Restarted Bumex and spironolactone. Patient wishes to be full code. Hospitalist MIPS Advance Care Plan I have confirmed that the patient's Advanced Care Plan is present, code status is documented, or surrogate decision maker is listed in patient medical record.: Yes Medication Reconciliation I have utilized all available resources to obtain, update and review the patients current medications (includes all prescriptions, OTC, herbals, cannabis, and nutritional supplements).: Yes
[2025-02-05] MEDS: oxyCODONE HCL (*CRX) 5 MG TAB IR PO (18:53)
[2025-02-06] VITALS (7 sets, daily range): BP systolic 100–110; BP diastolic 57–67; PULSE 72–90; RESP 18–20; TEMP 36.4–37.2; O2SAT 93–97
[2025-02-06] MEDS: LEVOTHYROXINE SODIUM 150 MCG TABLET PO (05:39)
[2025-02-06] MEDS: LACTULOSE 20 GM/30 ML UDC 30 GM PO ×2 (05:40→13:29)
[2025-02-06] MEDS: oxyCODONE HCL (*CRX) 5 MG TAB IR PO ×3 (05:56→21:23)
[2025-02-06 06:56] LABS: Hematocrit 29.9 % (37.0-47.0); Hemoglobin 9.6 g/dL (12.0-15.0); Immature Granulocyte Percent A 0.7 % (0-0.5); Immature Platelet Fraction Pct 2.4 % (0.9-11.2); Lymphocytes Absolute Auto 0.78 K/mm3 (0.9-3.2); Mean Corpuscular HGB Conc 32.1 g/dl (32-36); Mean Corpuscular Hemoglobin 31.8 pg (26-34); Mean Corpuscular Volume 99.0 fl (80-100); Nucleated Red Blood Cells Absolute Auto 0.000 K/mm3 (0.0-0.012); Nucleated Red Blood Cells Perc 0.0 % (0.0-0.2); Platelet Count Result 99 k/mm3 (150-375); Red Blood Count 3.02 M/mm3 (4.2-5.4); White Blood Count 5.5 K/mm3 (4.5-10.0)
[2025-02-06 07:26] LABS: Alanine Aminotransferase 15 U/L (6-35); Albumin Level 2.5 g/dL (3.5-5.1); Alkaline Phosphatase 89 U/L (38-126); Anion Gap 3 mmol/L (4-12); Aspartate Amino Transferase 37 U/L (14-36); Bilirubin,Total 3.4 mg/dL (0.2-1.3); Blood Urea Nitrogen 16 mg/dL (7-17); Calcium 7.9 mg/dL (8.4-10.2); Carbon Dioxide 26 mmol/L (22-30); Chloride 98 mmol/L (98-107); Estimated CRCL calculation 78 ml/min; Estimated Glomerular Filt Rate > 60; Glucose 83 mg/dL (65-110); Magnesium 1.9 mg/dL (1.6-2.3); Potassium 3.8 mmol/L (3.4-5.0); Sodium 127 mmol/L (137-145); Total Protein 5.5 g/dL (6.3-8.2)
[2025-02-06] MEDS: FOLIC ACID 1 MG TABLET PO (08:35)
[2025-02-06] MEDS: BUMETANIDE 1 MG TABLET 2 MG PO (08:35)
[2025-02-06] MEDS: CHOLECALCIFEROL (VITAMIN D3) 25 MCG (1,000 UNITS) TABLET PO (08:35)
[2025-02-06] MEDS: SPIRONOLACTONE 50 MG TABLET 200 MG PO (08:35)
--- NOTE | 2025-02-06 15:16 | P.PNGI_ITS ---
Progress Note: A&P Assessment and Plan (1) Decompensation of cirrhosis of liver: Code(s): K72.90 - Hepatic failure, unspecified without coma; K74.60 - Unspecified cirrhosis of liver Status: Acute Assessment and Plan: ? 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 h/o PSE on xifaxan and lactulose- she is not confused now 2g na salt diet no objections to discharge, call if questions (2) Ascites: Qualifiers: Ascites type: other type Qualified Code(s): R18.8 - Other ascites Code(s): R18.8 - Other ascites Status: Acute Assessment and Plan: s/p paracentesis no sbp most likely will need to continue to get paracentesis as outpatient as needed and continue with diuretics and 2g na diet ideally tips but challenging because she has history of encephalopathy follow-up with hepatology team at [facility] (3) Abdominal pain: Code(s): R10.9 - Unspecified abdominal pain Status: Acute (4) Thrombocytopenia: Code(s): D69.6 - Thrombocytopenia, unspecified Status: Chronic Assessment and Plan: from cirrhosis Subjective Date/time seen: 02/06/25 15:16 Interval history: paracentesis yesterday, similar abdominal pain Review of Systems Review of Systems: All systems reviewed & are unremarkable except as noted in HPI and below Exam Const: General: comfortable and no acute distress Other: A&O x3 HENMT: Mouth: Yes moist mucous membranes Eyes: Pupils: Equal, round and reactive pupils present Neck: Neck: supple Resp: Effort & Inspection: normal respiratory effort Auscultation: clear to auscultation bilaterally Cardio: Rate: regular rate Rhythm: regular rhythm Heart sounds: no murmurs GI: Inspection: distended GI Palp: No Guarding due to palpation present (GI) and Yes Hernia present umbilical Other: + fluid wave c/w ascites mild pain, no rebound Skin: General skin exam: normal color Neuro: Speech: normal speech Motor exam (neuro): 5/5 motor strength present throughout Extrem: General: edema (Rt>Lt) Psych: Mental Status: mental status grossly normal Objective Data Vital Signs Vital Signs: Vital Signs - 24 hr 02/05/25 18:21 02/05/25 20:21 02/05/25 20:46 Temperature Pulse Rate Respiratory Rate Blood Pressure 100/62 Pulse Oximetry 94 94 Oxygen Delivery Nasal Cannula Nasal Cannula Oxygen Flow Rate 2.5 3 02/05/25 22:00 02/06/25 06:00 02/06/25 08:28 Temperature 97.4 F L 97.5 F L Pulse Rate 83 76 72 Respiratory Rate 16 18 Blood Pressure 98/52 L 105/57 L 106/67 Pulse Oximetry 96 93 Oxygen Delivery Oxygen Flow Rate 02/06/25 13:38 02/06/25 14:00 Temperature 98.9 F Pulse Rate 90 Respiratory Rate Blood Pressure 100/58 L 110/60 Pulse Oximetry 97 Oxygen Delivery Oxygen Flow Rate Intake/Output Intake/Output: Intake & Output 02/03/25 02/04/25 02/05/25 02/06/25 23:59 23:59 23:59 23:59 Intake Total 1100 1090 Balance 1100 1090 Meds/Results Medications: Active Medications Generic Name Dose Route Start Last Admin Trade Name Freq PRN Reason Stop Dose Admin Bumetanide 2 mg 02/05/25 11:50 02/06/25 08:35 Bumetanide 1 Mg Tablet PO 2 mg DAILY LNENY Administration Docusate Sodium 100 mg 02/05/25 11:47 Docusate Sodium 100 Mg Capsule PO BID PRN Constipation Folic Acid 1 mg 02/06/25 09:00 02/06/25 08:35 Folic Acid 1 Mg Tablet PO 1 mg DAILY LENNY Administration Lactulose 30 gm 02/05/25 12:00 02/06/25 13:29 Lactulose 20 Gm/30 Ml Udc PO 30 gm Q6HR LENNY Administration Levothyroxine Sodium 150 mcg 02/06/25 06:30 02/06/25 05:39 Levothyroxine Sodium 150 Mcg Tablet PO 150 mcg DAILY@0630 LENNY Administration Morphine Sulfate 2 mg 02/05/25 09:38 02/05/25 11:10 Morphine Sulfate (*Crx) 4 Mg/Ml Inj IV PUSH 2 mg Q4H PRN Administration Pain Rated 7-10 Oxycodone HCl 5 mg 02/05/25 11:47 02/06/25 13:47 Oxycodone Hcl (*Crx) 5 Mg Tab Ir PO 5 mg Q6H PRN Administration Pain7-10 Rifaximin 550 mg 02/05/25 17:00 02/06/25 08:35 Rifaximin 550 Mg Tablet PO 550 mg BID LENNY Administration Spironolactone 200 mg 02/05/25 11:50 02/06/25 08:35 Spironolactone 50 Mg Tablet PO 200 mg DAILY LENNY Administration Vitamin D 25 mcg 02/06/25 09:00 02/06/25 08:35 Cholecalciferol (Vitamin D3) 25 Mcg (1,000 Units) Tablet PO 25 mcg DAILY LENNY Administration Radiology Results: ITS Impressions Chest X-Ray 02/04/25 21:15 IMPRESSION: 1: NO ACUTE CARDIOPULMONARY DISEASE. Foot X-Ray 02/05/25 13:56 IMPRESSION: 1. No acute osseous abnormality. 2. Polyarticular osteoarthritis in the mid and forefoot, moderate at the first metatarsophalangeal joint and otherwise mild. Paracentesis Ultrasound 02/05/25 14:32 IMPRESSION: 1. Successful ultrasound-guided paracentesis yielding 4750 mL of fidencio-colored fluid. Labs Labs: Laboratory Results - last 24 hr 02/06/25 06:29 WBC 5.5 RBC 3.02 L Hgb 9.6 L Hct 29.9 L MCV 99.0 MCH 31.8 MCHC 32.1 RDW 17.7 H Plt Count 99 L MPV 9.8 Immature Gran % (Auto) 0.7 H Neut % (Auto) 60.4 Lymph % (Auto) 14.1 L [place] % (Auto) 19.9 H Eos % (Auto) 4.0 Baso % (Auto) 0.9 Lymph # (Auto) 0.78 L [place] # (Auto) 1.1 H Eos # (Auto) 0.2 Baso # (Auto) 0.1 Abs Immat Gran (auto) 0.04 H Absolute Neuts (auto) 3.3 Absolute Nucleated RBC 0.000 Nucleated RBC % 0.0 % Immature Plt Fraction 2.4 Sodium 127 L Potassium 3.8 Chloride 98 Carbon Dioxide 26 Anion Gap 3 L BUN 16 Creatinine 0.84 Estim Creat Clear Calc 78 Estimated GFR > 60 Glucose 83 Calcium 7.9 L Magnesium 1.9 Total Bilirubin 3.4 H AST 37 H ALT 15 Alkaline Phosphatase 89 Total Protein 5.5 L Albumin 2.5 L
--- NOTE | 2025-02-06 17:20 | PM.IMPN ---
Progress Note: A&P Assessment and Plan (1) Cirrhosis of liver: Code(s): K74.60 - Unspecified cirrhosis of liver Status: Acute (2) Ascites: Qualifiers: Ascites type: other type Qualified Code(s): R18.8 - Other ascites Code(s): R18.8 - Other ascites Status: Acute Plan NPO midnight. May need paracentesis again tomorrow. Agree with the patient it would be best served if she had dialysis set up before she leaves. She told me she had called [facility] hepatology and they said they would get back to her but never did. She has returned multiple times needing paracentesis., continue Bumex and spironolactone, I talk with the patient's nurse to do strict intake/output recording. Continue daily weights as well. Time Spent With Patient Time with patient: Greater than 35 minutes Subjective Date/time seen: 02/06/25 17:20 Interval history: Patient has persistent pain in the abdomen. She had 1 bout of diarrhea today as well. Brown, some cramping. However, no fever, no chest pain, no shortness of breath. She does not feel she can return home because she returns shortly after with the need for paracentesis again. Review of Systems Review of Systems: All systems reviewed & are unremarkable except as noted in HPI and below (Subjective) Exam Const: General: comfortable and no acute distress Eyes: Pupils: Equal, round and reactive pupils present Neck: Neck: supple Resp: Effort & Inspection: normal respiratory effort Auscultation: clear to auscultation bilaterally Cardio: Rate: regular rate Rhythm: regular rhythm GI: Inspection: distended GI Palp: No Tenderness to palpation present (GI) and No Guarding due to palpation present (GI) Extrem: Other: Right lower extremity +pitting edema below the knee Objective Data Vital Signs Vital Signs: Vital Signs - 24 hr 02/05/25 18:21 02/05/25 20:21 02/05/25 20:46 Temperature Pulse Rate Respiratory Rate Blood Pressure 100/62 Pulse Oximetry 94 94 Oxygen Delivery Nasal Cannula Nasal Cannula Oxygen Flow Rate 2.5 3 02/05/25 22:00 02/06/25 06:00 02/06/25 08:28 Temperature 97.4 F L 97.5 F L Pulse Rate 83 76 72 Respiratory Rate 16 18 Blood Pressure 98/52 L 105/57 L 106/67 Pulse Oximetry 96 93 Oxygen Delivery Oxygen Flow Rate 02/06/25 08:30 02/06/25 13:38 02/06/25 14:00 Temperature 98.9 F Pulse Rate 90 Respiratory Rate Blood Pressure 100/58 L 110/60 Pulse Oximetry 93 97 Oxygen Delivery Nasal Cannula Oxygen Flow Rate 3 Intake/Output Intake/Output: Intake & Output 02/03/25 02/04/25 02/05/25 02/06/25 23:59 23:59 23:59 23:59 Intake Total 1100 1330 Balance 1100 1330 Meds/Results Medications: Active Medications Generic Name Dose Route Start Last Admin Trade Name Freq PRN Reason Stop Dose Admin Bumetanide 2 mg 02/05/25 11:50 02/06/25 08:35 Bumetanide 1 Mg Tablet PO 2 mg DAILY [facility] Administration Docusate Sodium 100 mg 02/05/25 11:47 Docusate Sodium 100 Mg Capsule PO BID PRN Constipation Folic Acid 1 mg 02/06/25 09:00 02/06/25 08:35 Folic Acid 1 Mg Tablet PO 1 mg DAILY [facility] Administration Lactulose 30 gm 02/05/25 12:00 02/06/25 17:19 Lactulose 20 Gm/30 Ml Udc PO Not Given Q6HR [facility] Levothyroxine Sodium 150 mcg 02/06/25 06:30 02/06/25 05:39 Levothyroxine Sodium 150 Mcg Tablet PO 150 mcg DAILY@0630 [facility] Administration Morphine Sulfate 2 mg 02/05/25 09:38 02/05/25 11:10 Morphine Sulfate (*Crx) 4 Mg/Ml Inj IV PUSH 2 mg Q4H PRN Administration Pain Rated 7-10 Oxycodone HCl 5 mg 02/05/25 11:47 02/06/25 13:47 Oxycodone Hcl (*Crx) 5 Mg Tab Ir PO 5 mg Q6H PRN Administration Pain7-10 Rifaximin 550 mg 02/05/25 17:00 02/06/25 17:15 Rifaximin 550 Mg Tablet PO 550 mg BID [facility] Administration Spironolactone 200 mg 02/05/25 11:50 02/06/25 08:35 Spironolactone 50 Mg Tablet PO 200 mg DAILY [facility] Administration Vitamin D 25 mcg 02/06/25 09:00 02/06/25 08:35 Cholecalciferol (Vitamin D3) 25 Mcg (1,000 Units) Tablet PO 25 mcg DAILY LENNY Administration Radiology Results: ITS Impressions Chest X-Ray 02/04/25 21:15 IMPRESSION: 1: NO ACUTE CARDIOPULMONARY DISEASE. Foot X-Ray 02/05/25 13:56 IMPRESSION: 1. No acute osseous abnormality. 2. Polyarticular osteoarthritis in the mid and forefoot, moderate at the first metatarsophalangeal joint and otherwise mild. Paracentesis Ultrasound 02/05/25 14:32 IMPRESSION: 1. Successful ultrasound-guided paracentesis yielding 4750 mL of fidencio-colored fluid. Labs Labs: Laboratory Results - last 24 hr 02/06/25 06:29 WBC 5.5 RBC 3.02 L Hgb 9.6 L Hct 29.9 L MCV 99.0 MCH 31.8 MCHC 32.1 RDW 17.7 H Plt Count 99 L MPV 9.8 Immature Gran % (Auto) 0.7 H Neut % (Auto) 60.4 Lymph % (Auto) 14.1 L [place] % (Auto) 19.9 H Eos % (Auto) 4.0 Baso % (Auto) 0.9 Lymph # (Auto) 0.78 L [place] # (Auto) 1.1 H Eos # (Auto) 0.2 Baso # (Auto) 0.1 Abs Immat Gran (auto) 0.04 H Absolute Neuts (auto) 3.3 Absolute Nucleated RBC 0.000 Nucleated RBC % 0.0 % Immature Plt Fraction 2.4 Sodium 127 L Potassium 3.8 Chloride 98 Carbon Dioxide 26 Anion Gap 3 L BUN 16 Creatinine 0.84 Estim Creat Clear Calc 78 Estimated GFR > 60 Glucose 83 Calcium 7.9 L Magnesium 1.9 Total Bilirubin 3.4 H AST 37 H ALT 15 Alkaline Phosphatase 89 Total Protein 5.5 L Albumin 2.5 L
--- NOTE | 2025-02-06 17:41 | PC.NURSE ---
I called provider Dr. Lamb at 1721 about another pt and he informed me this patient would be NPO at midnight for a paracentesis.
[2025-02-07 05:34] VITALS: BP 109/58; PULSE 70; RESP 16; TEMP 36.4; O2SAT 97
[2025-02-07] MEDS: oxyCODONE HCL (*CRX) 5 MG TAB IR PO ×3 (05:49→22:03)
[2025-02-07] MEDS: LEVOTHYROXINE SODIUM 150 MCG TABLET PO (05:49)
[2025-02-07 06:21] LABS: Hematocrit 28.0 % (37.0-47.0); Hemoglobin 9.2 g/dL (12.0-15.0); Immature Granulocyte Percent A 0.6 % (0-0.5); Immature Platelet Fraction Pct 2.4 % (0.9-11.2); Lymphocytes Absolute Auto 1.33 K/mm3 (0.9-3.2); Mean Corpuscular HGB Conc 32.9 g/dl (32-36); Mean Corpuscular Hemoglobin 32.1 pg (26-34); Mean Corpuscular Volume 97.6 fl (80-100); Nucleated Red Blood Cells Absolute Auto 0.000 K/mm3 (0.0-0.012); Nucleated Red Blood Cells Perc 0.0 % (0.0-0.2); Platelet Count Result 103 k/mm3 (150-375); Red Blood Count 2.87 M/mm3 (4.2-5.4); White Blood Count 6.4 K/mm3 (4.5-10.0)
[2025-02-07 06:35] LABS: Alanine Aminotransferase 14 U/L (6-35); Albumin Level 2.4 g/dL (3.5-5.1); Alkaline Phosphatase 135 U/L (38-126); Anion Gap 1 mmol/L (4-12); Aspartate Amino Transferase 35 U/L (14-36); Bilirubin,Total 2.8 mg/dL (0.2-1.3); Blood Urea Nitrogen 19 mg/dL (7-17); Calcium 7.8 mg/dL (8.4-10.2); Carbon Dioxide 27 mmol/L (22-30); Chloride 97 mmol/L (98-107); Estimated CRCL calculation 71 ml/min; Estimated Glomerular Filt Rate > 60; Glucose 81 mg/dL (65-110); Magnesium 1.9 mg/dL (1.6-2.3); Potassium 3.8 mmol/L (3.4-5.0); Sodium 125 mmol/L (137-145); Total Protein 5.4 g/dL (6.3-8.2)
[2025-02-07 08:00] VITALS: O2SAT 97
[2025-02-07] MEDS: CHOLECALCIFEROL (VITAMIN D3) 25 MCG (1,000 UNITS) TABLET PO (09:32)
[2025-02-07] MEDS: FOLIC ACID 1 MG TABLET PO (09:32)
[2025-02-07 14:00] VITALS: BP 96/52; PULSE 85; RESP 16; TEMP 36.1; O2SAT 97
[2025-02-07 14:08] LABS: Albumin, Body Fluid 0.7 g/dL (Not Estab.); Glucose, Body Fluid 118 mg/dL (.); LD, Body Fluid 50 IU/L (.)
--- NOTE | 2025-02-07 15:20 | P.PNGI_ITS ---
Progress Note: A&P Assessment and Plan (1) Decompensation of cirrhosis of liver: Code(s): K72.90 - Hepatic failure, unspecified without coma; K74.60 - Unspecified cirrhosis of liver Status: Acute Assessment and Plan: ? 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- she is not confused now 2g na salt diet continue with diuretics but noted hyponatremia which is not uncommon in cirrhotics, renal function is ok (2) Ascites: Qualifiers: Ascites type: other type Qualified Code(s): R18.8 - Other ascites Code(s): R18.8 - Other ascites Status: Acute Assessment and Plan: s/p paracentesis no sbp will try to set up out paracentesis as outpatient as needed and continue with diuretics and 2g na diet ideally tips but challenging because she has history of encephalopathy follow-up with hepatology team at [facility] (3) Abdominal pain: Code(s): R10.9 - Unspecified abdominal pain Status: Acute Assessment and Plan: chronic and unchanged (4) Thrombocytopenia: Code(s): D69.6 - Thrombocytopenia, unspecified Status: Chronic Assessment and Plan: from cirrhosis (5) Hyponatremia: Code(s): E87.1 - Hypo-osmolality and hyponatremia Status: Acute Subjective Date/time seen: 02/07/25 15:20 Interval history: still with abdominal discomfort, no major changes Review of Systems Review of Systems: All systems reviewed & are unremarkable except as noted in HPI and below Exam Const: General: comfortable and no acute distress Other: A&O x3 HENMT: Mouth: Yes moist mucous membranes Eyes: Pupils: Equal, round and reactive pupils present Neck: Neck: supple Resp: Effort & Inspection: normal respiratory effort Auscultation: clear to auscultation bilaterally Cardio: Rate: regular rate Rhythm: regular rhythm Heart sounds: no murmurs GI: Inspection: distended GI Palp: No Guarding due to palpation present (GI) and Yes Hernia present umbilical Other: + fluid wave c/w ascites mild pain, no rebound Skin: General skin exam: normal color Neuro: Speech: normal speech Motor exam (neuro): 5/5 motor strength present throughout Extrem: General: edema (Rt>Lt) Psych: Mental Status: mental status grossly normal Objective Data Vital Signs Vital Signs: Vital Signs - 24 hr 02/06/25 21:02 02/06/25 21:20 02/07/25 05:34 Temperature 98 F 97.6 F Pulse Rate 87 70 Respiratory Rate 20 16 Blood Pressure 110/57 L 109/58 L Pulse Oximetry 97 97 97 Oxygen Delivery Nasal Cannula Oxygen Flow Rate 3 02/07/25 08:00 02/07/25 14:00 Temperature 96.9 F L Pulse Rate 85 Respiratory Rate 16 Blood Pressure 96/52 L Pulse Oximetry 97 97 Oxygen Delivery Nasal Cannula Oxygen Flow Rate 3 Intake/Output Intake/Output: Intake & Output 02/04/25 02/05/25 02/06/25 02/07/25 23:59 23:59 23:59 23:59 Intake Total 1100 1999 Balance 1100 1999 58 Meds/Results Medications: Active Medications Generic Name Dose Route Start Last Admin Trade Name Freq PRN Reason Stop Dose Admin Bumetanide 2 mg 02/05/25 11:50 02/07/25 08:20 Bumetanide 1 Mg Tablet PO Not Given DAILY [facility] Docusate Sodium 100 mg 02/05/25 11:47 Docusate Sodium 100 Mg Capsule PO BID PRN Constipation Folic Acid 1 mg 02/06/25 09:00 02/07/25 09:32 Folic Acid 1 Mg Tablet PO 1 mg DAILY [facility]NY Administration Lactulose 30 gm 02/05/25 12:00 02/07/25 11:58 Lactulose 20 Gm/30 Ml Udc PO Not Given Q6HR LENNY Levothyroxine Sodium 150 mcg 02/06/25 06:30 02/07/25 05:49 Levothyroxine Sodium 150 Mcg Tablet PO 150 mcg DAILY@0630 [facility] Administration Morphine Sulfate 2 mg 02/05/25 09:38 02/05/25 11:10 Morphine Sulfate (*Crx) 4 Mg/Ml Inj IV PUSH 2 mg Q4H PRN Administration Pain Rated 7-10 Oxycodone HCl 5 mg 02/05/25 11:47 02/07/25 05:49 Oxycodone Hcl (*Crx) 5 Mg Tab Ir PO 5 mg Q6H PRN Administration Pain7-10 Rifaximin 550 mg 02/05/25 17:00 02/07/25 09:32 Rifaximin 550 Mg Tablet PO 550 mg BID LENNY Administration Spironolactone 200 mg 02/05/25 11:50 02/07/25 08:21 Spironolactone 50 Mg Tablet PO Not Given DAILY [facility] Vitamin D 25 mcg 02/06/25 09:00 02/07/25 09:32 Cholecalciferol (Vitamin D3) 25 Mcg (1,000 Units) Tablet PO 25 mcg DAILY [facility]ENNY Administration Radiology Results: ITS Impressions Chest X-Ray 02/04/25 21:15 IMPRESSION: 1: NO ACUTE CARDIOPULMONARY DISEASE. Foot X-Ray 02/05/25 13:56 IMPRESSION: 1. No acute osseous abnormality. 2. Polyarticular osteoarthritis in the mid and forefoot, moderate at the first metatarsophalangeal joint and otherwise mild. Paracentesis Ultrasound 02/05/25 14:32 IMPRESSION: 1. Successful ultrasound-guided paracentesis yielding 4750 mL of fidencio-colored fluid. Labs Labs: Laboratory Results - last 24 hr 02/04/25 02/07/25 23:17 05:53 WBC 6.4 RBC 2.87 L Hgb 9.2 L Hct 28.0 L MCV 97.6 MCH 32.1 MCHC 32.9 RDW 17.6 H Plt Count 103 L MPV 9.5 Immature Gran % (Auto) 0.6 H Neut % (Auto) 51.4 Lymph % (Auto) 20.7 [place] % (Auto) 20.7 H Eos % (Auto) 5.5 H Baso % (Auto) 1.1 Lymph # (Auto) 1.33 [place] # (Auto) 1.3 H Eos # (Auto) 0.4 H Baso # (Auto) 0.1 Abs Immat Gran (auto) 0.04 H Absolute Neuts (auto) 3.3 Absolute Nucleated RBC 0.000 Nucleated RBC % 0.0 % Immature Plt Fraction 2.4 Sodium 125 L Potassium 3.8 Chloride 97 L Carbon Dioxide 27 Anion Gap 1 L BUN 19 H Creatinine 0.94 Estim Creat Clear Calc 71 Estimated GFR > 60 Glucose 81 Calcium 7.8 L Magnesium 1.9 Total Bilirubin 2.8 H AST 35 ALT 14 Alkaline Phosphatase 135 H Total Protein 5.4 L Albumin 2.4 L Fluid Glucose 118 Fluid Total Protein 3.0 Fluid Albumin 0.7 Fluid LDH 50 Fluid Amylase 19
[2025-02-07] MEDS: LACTULOSE 20 GM/30 ML UDC 30 GM PO (16:56)
--- NOTE | 2025-02-07 17:58 | PM.IMPN ---
Progress Note: A&P Time Spent With Patient Time: Paracentesis tomorrow. NPO midnight. Admission communication provided to arrange for paracentesis prior to the patient leaving, she has multiple readmissions for this matter. Tinea infection, for miconazole 2% cream b.i.d.. Time with patient: Greater than 35 minutes Subjective Date/time seen: 02/07/25 17:58 Interval history: Feels as if her ascites is worse. Complains of a rash behind her ear on the story process. It is itchy. Started prior to coming to the hospital but has worsened. Review of Systems Review of Systems: All systems reviewed & are unremarkable except as noted in HPI and below (Subjective) Exam Const: General: comfortable and no acute distress Eyes: Pupils: Equal, round and reactive pupils present GI: Other: Abdomen slightly distended Objective Data Vital Signs Vital Signs: Vital Signs - 24 hr 02/06/25 21:02 02/06/25 21:20 02/07/25 05:34 Temperature 98 F 97.6 F Pulse Rate 87 70 Respiratory Rate 20 16 Blood Pressure 110/57 L 109/58 L Pulse Oximetry 97 97 97 Oxygen Delivery Nasal Cannula Oxygen Flow Rate 3 02/07/25 08:00 02/07/25 14:00 Temperature 96.9 F L Pulse Rate 85 Respiratory Rate 16 Blood Pressure 96/52 L Pulse Oximetry 97 97 Oxygen Delivery Nasal Cannula Oxygen Flow Rate 3 Intake/Output Intake/Output: Intake & Output 02/04/25 02/05/25 02/06/25 02/07/25 23:59 23:59 23:59 23:59 Intake Total 1100 1999 584 Output Total 200 Balance 1100 1999 384 Meds/Results Medications: Active Medications Generic Name Dose Route Start Last Admin Trade Name Freq PRN Reason Stop Dose Admin Bumetanide 2 mg 02/05/25 11:50 02/07/25 08:20 Bumetanide 1 Mg Tablet PO Not Given DAILY [facility] Docusate Sodium 100 mg 02/05/25 11:47 Docusate Sodium 100 Mg Capsule PO BID PRN Constipation Folic Acid 1 mg 02/06/25 09:00 02/07/25 09:32 Folic Acid 1 Mg Tablet PO 1 mg DAILY [facility] Administration Lactulose 30 gm 02/05/25 12:00 02/07/25 16:56 Lactulose 20 Gm/30 Ml Udc PO 30 gm Q6HR [facility]EN[facility] Administration Levothyroxine Sodium 150 mcg 02/06/25 06:30 02/07/25 05:49 Levothyroxine Sodium 150 Mcg Tablet PO 150 mcg DAILY@0630 [facility] Administration Miconazole Nitrate 1 applic 02/07/25 18:00 Miconazole Nitrate 2% Cream 30 Gm Tube TOPICAL Q12HR [facility] Morphine Sulfate 2 mg 02/05/25 09:38 02/05/25 11:10 Morphine Sulfate (*Crx) 4 Mg/Ml Inj IV PUSH 2 mg Q4H PRN Administration Pain Rated 7-10 Oxycodone HCl 5 mg 02/05/25 11:47 02/07/25 15:58 Oxycodone Hcl (*Crx) 5 Mg Tab Ir PO 5 mg Q6H PRN Administration Pain7-10 Rifaximin 550 mg 02/05/25 17:00 02/07/25 16:56 Rifaximin 550 Mg Tablet PO 550 mg BID [facility]ENNY Administration Spironolactone 200 mg 02/05/25 11:50 02/07/25 08:21 Spironolactone 50 Mg Tablet PO Not Given DAILY [facility] Vitamin D 25 mcg 02/06/25 09:00 02/07/25 09:32 Cholecalciferol (Vitamin D3) 25 Mcg (1,000 Units) Tablet PO 25 mcg DAILY [facility] Administration Radiology Results: ITS Impressions Chest X-Ray 02/04/25 21:15 IMPRESSION: 1: NO ACUTE CARDIOPULMONARY DISEASE. Foot X-Ray 02/05/25 13:56 IMPRESSION: 1. No acute osseous abnormality. 2. Polyarticular osteoarthritis in the mid and forefoot, moderate at the first metatarsophalangeal joint and otherwise mild. Paracentesis Ultrasound 02/05/25 14:32 IMPRESSION: 1. Successful ultrasound-guided paracentesis yielding 4750 mL of fidencio-colored fluid. Labs Labs: Laboratory Results - last 24 hr 02/04/25 02/07/25 23:17 05:53 WBC 6.4 RBC 2.87 L Hgb 9.2 L Hct 28.0 L MCV 97.6 MCH 32.1 MCHC 32.9 RDW 17.6 H Plt Count 103 L MPV 9.5 Immature Gran % (Auto) 0.6 H Neut % (Auto) 51.4 Lymph % (Auto) 20.7 [place] % (Auto) 20.7 H Eos % (Auto) 5.5 H Baso % (Auto) 1.1 Lymph # (Auto) 1.33 [place] # (Auto) 1.3 H Eos # (Auto) 0.4 H Baso # (Auto) 0.1 Abs Immat Gran (auto) 0.04 H Absolute Neuts (auto) 3.3 Absolute Nucleated RBC 0.000 Nucleated RBC % 0.0 % Immature Plt Fraction 2.4 Sodium 125 L Potassium 3.8 Chloride 97 L Carbon Dioxide 27 Anion Gap 1 L BUN 19 H Creatinine 0.94 Estim Creat Clear Calc 71 Estimated GFR > 60 Glucose 81 Calcium 7.8 L Magnesium 1.9 Total Bilirubin 2.8 H AST 35 ALT 14 Alkaline Phosphatase 135 H Total Protein 5.4 L Albumin 2.4 L Fluid Glucose 118 Fluid Total Protein 3.0 Fluid Albumin 0.7 Fluid LDH 50 Fluid Amylase 19
[2025-02-07] MEDS: CALCIUM CARBONATE (TUMS) 500 MG (200 MG ELEMENTAL) PO (18:09)
[2025-02-07] MEDS: MICONAZOLE NITRATE 2% CREAM 30 GM TUBE 1 APPLIC TOPICAL (18:20)
[2025-02-07 20:53] VITALS: PULSE 91; RESP 20; O2SAT 91
[2025-02-07 21:49] VITALS: BP 103/67; PULSE 82; RESP 18; TEMP 36.2; O2SAT 93
[2025-02-07 22:08] VITALS: O2SAT 93
[2025-02-08] MEDS: LEVOTHYROXINE SODIUM 150 MCG TABLET PO (05:29)
[2025-02-08 06:00] VITALS: BP 97/51; PULSE 76; RESP 16; TEMP 36.6; O2SAT 98
[2025-02-08 08:00] VITALS: O2SAT 98
[2025-02-08 08:15] VITALS: O2SAT 96
[2025-02-08] MEDS: oxyCODONE HCL (*CRX) 5 MG TAB IR PO ×3 (09:13→20:47)
[2025-02-08] MEDS: CHOLECALCIFEROL (VITAMIN D3) 25 MCG (1,000 UNITS) TABLET PO (09:14)
[2025-02-08] MEDS: FOLIC ACID 1 MG TABLET PO (09:14)
[2025-02-08] MEDS: MICONAZOLE NITRATE 2% CREAM 30 GM TUBE 1 APPLIC TOPICAL ×2 (09:14→20:47)
[2025-02-08 09:27] LABS: Hematocrit 30.1 % (37.0-47.0); Hemoglobin 9.8 g/dL (12.0-15.0); Immature Granulocyte Percent A 1.0 % (0-0.5); Lymphocytes Absolute Auto 1.28 K/mm3 (0.9-3.2); Mean Corpuscular HGB Conc 32.6 g/dl (32-36); Mean Corpuscular Hemoglobin 31.4 pg (26-34); Mean Corpuscular Volume 96.5 fl (80-100); Nucleated Red Blood Cells Absolute Auto 0.000 K/mm3 (0.0-0.012); Nucleated Red Blood Cells Perc 0.0 % (0.0-0.2); Platelet Count Result 105 k/mm3 (150-375); Red Blood Count 3.12 M/mm3 (4.2-5.4); White Blood Count 6.8 K/mm3 (4.5-10.0)
[2025-02-08 09:40] LABS: Alanine Aminotransferase 16 U/L (6-35); Albumin Level 2.7 g/dL (3.5-5.1); Alkaline Phosphatase 124 U/L (38-126); Anion Gap 3 mmol/L (4-12); Aspartate Amino Transferase 41 U/L (14-36); Bilirubin,Total 3.1 mg/dL (0.2-1.3); Blood Urea Nitrogen 20 mg/dL (7-17); Calcium 8.0 mg/dL (8.4-10.2); Carbon Dioxide 24 mmol/L (22-30); Chloride 95 mmol/L (98-107); Estimated CRCL calculation 76 ml/min; Estimated Glomerular Filt Rate > 60; Glucose 85 mg/dL (65-110); Magnesium 2.1 mg/dL (1.6-2.3); Potassium 4.1 mmol/L (3.4-5.0); Sodium 122 mmol/L (137-145); Total Protein 5.8 g/dL (6.3-8.2)
--- NOTE | 2025-02-08 11:34 | PC.NURSE ---
Held am bumex and spironolactone due to NA 122, Dr Lamb aware
[2025-02-08 14:00] VITALS: BP 91/53; PULSE 80; RESP 16; TEMP 36.6; O2SAT 97
[2025-02-08] MEDS: LACTULOSE 20 GM/30 ML UDC 30 GM PO (16:19)
--- NOTE | 2025-02-08 16:36 | P.PNGI_ITS ---
Progress Note: A&P Assessment and Plan (1) Decompensation of cirrhosis of liver: Code(s): K72.90 - Hepatic failure, unspecified without coma; K74.60 - Unspecified cirrhosis of liver Status: Acute Assessment and Plan: ? 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- she is not confused now 2g na salt diet continue with diuretics but noted hyponatremia which is not uncommon in cirrhotics, renal function is ok repeat labs (2) Ascites: Qualifiers: Ascites type: other type Qualified Code(s): R18.8 - Other ascites Code(s): R18.8 - Other ascites Status: Acute Assessment and Plan: s/p paracentesis no sbp will try to set up out paracentesis as outpatient as needed and continue with diuretics and 2g na diet ideally tips but challenging because she has history of encephalopathy follow-up with hepatology team at [facility] (3) Abdominal pain: Code(s): R10.9 - Unspecified abdominal pain Status: Acute Assessment and Plan: chronic and unchanged (4) Thrombocytopenia: Code(s): D69.6 - Thrombocytopenia, unspecified Status: Chronic Assessment and Plan: from cirrhosis (5) Hyponatremia: Code(s): E87.1 - Hypo-osmolality and hyponatremia Status: Acute Subjective Date/time seen: 02/08/25 16:36 Interval history: no major changes, had more paracentesis today 4 liters, still similar abdominal discomfort Review of Systems Review of Systems: All systems reviewed & are unremarkable except as noted in HPI and below Exam Const: General: comfortable and no acute distress Other: A&O x3 HENMT: Mouth: Yes moist mucous membranes Eyes: Pupils: Equal, round and reactive pupils present Neck: Neck: supple Resp: Effort & Inspection: normal respiratory effort Auscultation: clear to auscultation bilaterally Cardio: Rate: regular rate Rhythm: regular rhythm GI: Inspection: distended GI Palp: No Guarding due to palpation present (GI) and Yes Hernia present umbilical Other: + fluid wave c/w ascites mild pain, no rebound Skin: General skin exam: normal color Neuro: Speech: normal speech Motor exam (neuro): 5/5 motor strength present throughout Extrem: General: edema (Rt>Lt) Psych: Mental Status: mental status grossly normal Objective Data Vital Signs Vital Signs: Vital Signs - 24 hr 02/07/25 20:53 02/07/25 21:49 02/07/25 22:08 Temperature 97.2 F L Pulse Rate 91 82 Respiratory Rate 20 18 Blood Pressure 103/67 Pulse Oximetry 91 93 93 Oxygen Delivery Nasal Cannula Nasal Cannula Oxygen Flow Rate 3 3 Fraction of Inspired Oxygen 32 02/08/25 06:00 02/08/25 08:00 02/08/25 14:00 Temperature 97.8 F 97.8 F Pulse Rate 76 80 Respiratory Rate 16 16 Blood Pressure 97/51 L 91/53 L Pulse Oximetry 98 98 97 Oxygen Delivery Nasal Cannula Oxygen Flow Rate 3 Fraction of Inspired Oxygen Intake/Output Intake/Output: Intake & Output 02/05/25 02/06/25 02/07/25 02/08/25 23:59 23:59 23:59 23:59 Intake Total 1100 1999 1034 300 Output Total 350 4400 Balance 1100 1999 684 4100 Meds/Results Medications: Active Medications Generic Name Dose Route Start Last Admin Trade Name Freq PRN Reason Stop Dose Admin Bumetanide 2 mg 02/05/25 11:50 02/08/25 11:32 Bumetanide 1 Mg Tablet PO Not Given DAILY [facility] Calcium Carbonate 200 mg 02/07/25 18:01 02/07/25 18:09 Calcium Carbonate (Tums) 500 Mg (200 Mg Elemental) PO 200 mg Q6H PRN Administration Indigestion Docusate Sodium 100 mg 02/05/25 11:47 Docusate Sodium 100 Mg Capsule PO BID PRN Constipation Folic Acid 1 mg 02/06/25 09:00 02/08/25 09:14 Folic Acid 1 Mg Tablet PO 1 mg DAILY [facility] Administration Lactulose 30 gm 02/05/25 12:00 02/08/25 16:19 Lactulose 20 Gm/30 Ml Udc PO 30 gm Q6HR [facility]ENNY Administration Levothyroxine Sodium 150 mcg 02/06/25 06:30 02/08/25 05:29 Levothyroxine Sodium 150 Mcg Tablet PO 150 mcg DAILY@0630 [facility] Administration Miconazole Nitrate 1 applic 02/07/25 18:00 02/08/25 09:14 Miconazole Nitrate 2% Cream 30 Gm Tube TOPICAL 1 applic Q12HR [facility] Administration Morphine Sulfate 2 mg 02/05/25 09:38 02/05/25 11:10 Morphine Sulfate (*Crx) 4 Mg/Ml Inj IV PUSH 2 mg Q4H PRN Administration Pain Rated 7-10 Oxycodone HCl 5 mg 02/05/25 11:47 02/08/25 14:59 Oxycodone Hcl (*Crx) 5 Mg Tab Ir PO 5 mg Q6H PRN Administration Pain7-10 Rifaximin 550 mg 02/05/25 17:00 02/08/25 16:19 Rifaximin 550 Mg Tablet PO 550 mg BID LENNY Administration Spironolactone 200 mg 02/05/25 11:50 02/08/25 11:32 Spironolactone 50 Mg Tablet PO Not Given DAILY [facility] Vitamin D 25 mcg 02/06/25 09:00 02/08/25 09:14 Cholecalciferol (Vitamin D3) 25 Mcg (1,000 Units) Tablet PO 25 mcg DAILY [facility] Administration Radiology Results: ITS Impressions Chest X-Ray 02/04/25 21:15 IMPRESSION: 1: NO ACUTE CARDIOPULMONARY DISEASE. Foot X-Ray 02/05/25 13:56 IMPRESSION: 1. No acute osseous abnormality. 2. Polyarticular osteoarthritis in the mid and forefoot, moderate at the first metatarsophalangeal joint and otherwise mild. Paracentesis Ultrasound 02/08/25 13:24 IMPRESSION: 1. Successful ultrasound-guided paracentesis yielding 4000 mL of straw-colored fluid. Labs Labs: Laboratory Results - last 24 hr 02/08/25 09:19 WBC 6.8 RBC 3.12 L Hgb 9.8 L Hct 30.1 L MCV 96.5 MCH 31.4 MCHC 32.6 RDW 17.8 H Plt Count 105 L MPV 10.1 Immature Gran % (Auto) 1.0 H Neut % (Auto) 55.0 Lymph % (Auto) 18.8 [place] % (Auto) 19.6 H Eos % (Auto) 4.0 Baso % (Auto) 1.6 H Lymph # (Auto) 1.28 [place] # (Auto) 1.3 H Eos # (Auto) 0.3 Baso # (Auto) 0.1 Abs Immat Gran (auto) 0.07 H Absolute Neuts (auto) 3.8 Absolute Nucleated RBC 0.000 Nucleated RBC % 0.0 Sodium 122 L Potassium 4.1 Chloride 95 L Carbon Dioxide 24 Anion Gap 3 L BUN 20 H Creatinine 0.90 Estim Creat Clear Calc 76 Estimated GFR > 60 Glucose 85 Calcium 8.0 L Magnesium 2.1 Total Bilirubin 3.1 H AST 41 H ALT 16 Alkaline Phosphatase 124 Total Protein 5.8 L Albumin 2.7 L
--- NOTE | 2025-02-08 16:42 | PM.IMPN ---
Progress Note: A&P Assessment and Plan (1) Hyponatremia: Code(s): E87.1 - Hypo-osmolality and hyponatremia Status: Acute (2) Cirrhosis of liver with ascites: Qualifiers: Hepatic cirrhosis type: unspecified hepatic cirrhosis Qualified Code(s): K74.60 - Unspecified cirrhosis of liver; R18.8 - Other ascites Code(s): K74.60 - Unspecified cirrhosis of liver; R18.8 - Other ascites Status: Acute (3) Portal hypertension: Code(s): K76.6 - Portal hypertension Status: Acute (4) Ascites: Qualifiers: Ascites type: other type Qualified Code(s): R18.8 - Other ascites Code(s): R18.8 - Other ascites Status: Acute (5) Abdominal pain: Code(s): R10.9 - Unspecified abdominal pain Status: Acute Plan Nasreen Orozco is a 54 year old female liver cirrhosis with ascites (secondary to MASH but has elevated TAB), portal hypertension, hypothyroidism, chronic respiratory failure on 3 L nasal cannula presented to the ED on 01/27/2025 with complaints of abdominal pain requesting a paracentesis. She had just been discharged 02/01/2025, advised to follow-up with [facility] hepatology. She has not been able to get paracentesis set up. Reports increasingly worse distended abdomen with pain. She takes oxycodone chronically. She reports being compliant with the medications she was discharged on spironolactone bumetanide and others. In the ER she had a paracentesis performed however only 200 cc removed. Ascitic fluid studies did not reveal infection. ----- Decompensation of cirrhosis, refractory ascites -status post paracentesis on admission and again on 02/08/2025. Patient feeling better. Continue her [employer] oxycodone. -patient has had readmissions due to inability to have paracentesis in the outpatient setting. Care coordination has now arrange this for her. Still follow-up with [facility] for chronic management and assessment for transplantation. -hyponatremia, worsened on 02/08/2025, Bumex and spironolactone held. Reassess after paracentesis. Continue max 2 g salt diet, start fluid restriction 1500 cc per 24 hours. -history of hepatic encephalopathy, continue lactulose and rifaximin Hypothyroidism: Continue [employer] levothyroxine Tinea corporis: Patient had a rash on the skin overlying the left mastoid process prior to admission, notified us on 02/07/2025. Coalescing discoid maculopapular rashes. 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 Started miconazole cream b.i.d. and has since been improving. Anemia: Chronic, stable. Continue to monitor. ----- Patient wishes to be full code Low-salt diet, fluid restriction. SCDs Daily weights, intake/output monitoring Time Spent With Patient Time: Greater than 55 minute spent on [id number] time, coordination with nursing team, discussion with specialist, coordination with care coordination. Subjective Date/time seen: 02/08/25 16:42 Interval history: No major acute overnight events. Patient seen before paracentesis, complaining of abdominal pain and abdominal distension. Reports skin rash behind the left ears improved after starting cream. Otherwise no complaints. Review of Systems Review of Systems: All systems reviewed & are unremarkable except as noted in HPI and below (Subjective) Exam Const: General: comfortable and no acute distress Other: A&O x4 HENMT: Mouth: Yes moist mucous membranes Eyes: Pupils: Equal, round and reactive pupils present Neck: Neck: supple Other: Circular maculopapular rash on the left mastoid process improving. Resp: Effort & Inspection: normal respiratory effort Auscultation: clear to auscultation bilaterally Cardio: Rate: regular rate Rhythm: regular rhythm GI: Inspection: distended GI Palp: Yes Soft to palpation, Yes Tenderness to palpation present (GI) and No Guarding due to palpation present (GI) Auscultation: normal bowel sounds Neuro: Motor exam (neuro): 5/5 motor strength present throughout Extrem: Other: 2+ pitting edema right lower extremity, 1+ pitting in the left lower extremity Psych: Mental Status: mental status grossly normal Objective Data Vital Signs Vital Signs: Vital Signs - 24 hr 02/07/25 20:53 02/07/25 21:49 02/07/25 22:08 Temperature 97.2 F L Pulse Rate 91 82 Respiratory Rate 20 18 Blood Pressure 103/67 Pulse Oximetry 91 93 93 Oxygen Delivery Nasal Cannula Nasal Cannula Oxygen Flow Rate 3 3 Fraction of Inspired Oxygen 32 02/08/25 06:00 02/08/25 08:00 02/08/25 14:00 Temperature 97.8 F 97.8 F Pulse Rate 76 80 Respiratory Rate 16 16 Blood Pressure 97/51 L 91/53 L Pulse Oximetry 98 98 97 Oxygen Delivery Nasal Cannula Oxygen Flow Rate 3 Fraction of Inspired Oxygen Intake/Output Intake/Output: Intake & Output 02/05/25 02/06/25 02/07/25 02/08/25 23:59 23:59 23:59 23:59 Intake Total 1100 1999 1034 1800 Output Total 350 4400 Balance 1100 1999 407 -5820 Meds/Results Medications: Active Medications Generic Name Dose Route Start Last Admin Trade Name Freq PRN Reason Stop Dose Admin Bumetanide 2 mg 02/05/25 11:50 02/08/25 11:32 Bumetanide 1 Mg Tablet PO Not Given On Hold: 02/08/25 16:37 DAILY [facility] Calcium Carbonate 200 mg 02/07/25 18:01 02/07/25 18:09 Calcium Carbonate (Tums) 500 Mg (200 Mg Elemental) PO 200 mg Q6H PRN Administration Indigestion Docusate Sodium 100 mg 02/05/25 11:47 Docusate Sodium 100 Mg Capsule PO BID PRN Constipation Folic Acid 1 mg 02/06/25 09:00 02/08/25 09:14 Folic Acid 1 Mg Tablet PO 1 mg DAILY [facility] Administration Lactulose 30 gm 02/05/25 12:00 02/08/25 16:19 Lactulose 20 Gm/30 Ml Udc PO 30 gm Q6HR [facility] Administration Levothyroxine Sodium 150 mcg 02/06/25 06:30 02/08/25 05:29 Levothyroxine Sodium 150 Mcg Tablet PO 150 mcg DAILY@0630 [facility] Administration Miconazole Nitrate 1 applic 02/07/25 18:00 02/08/25 09:14 Miconazole Nitrate 2% Cream 30 Gm Tube TOPICAL 1 applic Q12HR [facility] Administration Morphine Sulfate 2 mg 02/05/25 09:38 02/05/25 11:10 Morphine Sulfate (*Crx) 4 Mg/Ml Inj IV PUSH 2 mg Q4H PRN Administration Pain Rated 7-10 Oxycodone HCl 5 mg 02/05/25 11:47 02/08/25 14:59 Oxycodone Hcl (*Crx) 5 Mg Tab Ir PO 5 mg Q6H PRN Administration Pain7-10 Rifaximin 550 mg 02/05/25 17:00 02/08/25 16:19 Rifaximin 550 Mg Tablet PO 550 mg BID [facility] Administration Spironolactone 200 mg 02/05/25 11:50 02/08/25 11:32 Spironolactone 50 Mg Tablet PO Not Given On Hold: 02/08/25 16:37 DAILY [facility] Vitamin D 25 mcg 02/06/25 09:00 02/08/25 09:14 Cholecalciferol (Vitamin D3) 25 Mcg (1,000 Units) Tablet PO 25 mcg DAILY [facility] Administration Radiology Results: ITS Impressions Chest X-Ray 02/04/25 21:15 IMPRESSION: 1: NO ACUTE CARDIOPULMONARY DISEASE. Foot X-Ray 02/05/25 13:56 IMPRESSION: 1. No acute osseous abnormality. 2. Polyarticular osteoarthritis in the mid and forefoot, moderate at the first metatarsophalangeal joint and otherwise mild. Paracentesis Ultrasound 02/08/25 13:24 IMPRESSION: 1. Successful ultrasound-guided paracentesis yielding 4000 mL of straw-colored fluid. Labs Labs: Laboratory Results - last 24 hr 02/08/25 09:19 WBC 6.8 RBC 3.12 L Hgb 9.8 L Hct 30.1 L MCV 96.5 MCH 31.4 MCHC 32.6 RDW 17.8 H Plt Count 105 L MPV 10.1 Immature Gran % (Auto) 1.0 H Neut % (Auto) 55.0 Lymph % (Auto) 18.8 [place] % (Auto) 19.6 H Eos % (Auto) 4.0 Baso % (Auto) 1.6 H Lymph # (Auto) 1.28 [place] # (Auto) 1.3 H Eos # (Auto) 0.3 Baso # (Auto) 0.1 Abs Immat Gran (auto) 0.07 H Absolute Neuts (auto) 3.8 Absolute Nucleated RBC 0.000 Nucleated RBC % 0.0 Sodium 122 L Potassium 4.1 Chloride 95 L Carbon Dioxide 24 Anion Gap 3 L BUN 20 H Creatinine 0.90 Estim Creat Clear Calc 76 Estimated GFR > 60 Glucose 85 Calcium 8.0 L Magnesium 2.1 Total Bilirubin 3.1 H AST 41 H ALT 16 Alkaline Phosphatase 124 Total Protein 5.8 L Albumin 2.7 L
[2025-02-08 20:41] VITALS: BP 110/60; PULSE 75; RESP 16; TEMP 36.3; O2SAT 96
[2025-02-08 20:51] VITALS: O2SAT 96
[2025-02-09] MEDS: LACTULOSE 20 GM/30 ML UDC 30 GM PO ×5 (00:39→23:26)
[2025-02-09 05:30] VITALS: BP 106/66; PULSE 84; RESP 16; TEMP 36.4; O2SAT 96
[2025-02-09] MEDS: LEVOTHYROXINE SODIUM 150 MCG TABLET PO (05:30)
[2025-02-09] MEDS: oxyCODONE HCL (*CRX) 5 MG TAB IR PO ×2 (05:41→14:57)
[2025-02-09 05:48] LABS: Hematocrit 28.2 % (37.0-47.0); Hemoglobin 9.3 g/dL (12.0-15.0); Mean Corpuscular HGB Conc 33.0 g/dl (32-36); Mean Corpuscular Hemoglobin 31.7 pg (26-34); Mean Corpuscular Volume 96.2 fl (80-100); Platelet Count Result 100 k/mm3 (150-375); Red Blood Count 2.93 M/mm3 (4.2-5.4); White Blood Count 6.7 K/mm3 (4.5-10.0)
[2025-02-09 06:01] LABS: Alanine Aminotransferase 15 U/L (6-35); Albumin Level 2.4 g/dL (3.5-5.1); Alkaline Phosphatase 117 U/L (38-126); Anion Gap 3 mmol/L (4-12); Aspartate Amino Transferase 41 U/L (14-36); Bilirubin,Total 2.5 mg/dL (0.2-1.3); Blood Urea Nitrogen 19 mg/dL (7-17); Calcium 7.9 mg/dL (8.4-10.2); Carbon Dioxide 26 mmol/L (22-30); Chloride 96 mmol/L (98-107); Estimated CRCL calculation 68 ml/min; Estimated Glomerular Filt Rate 59; Glucose 92 mg/dL (65-110); Magnesium 2.2 mg/dL (1.6-2.3); Potassium 4.1 mmol/L (3.4-5.0); Sodium 125 mmol/L (137-145); Total Protein 5.5 g/dL (6.3-8.2)
--- NOTE | 2025-02-09 07:44 | P.PNIM_ITS ---
Progress Note: A&P Assessment and Plan (1) Hyponatremia: Code(s): E87.1 - Hypo-osmolality and hyponatremia Status: Acute Assessment and Plan: - acute on chronic - Na shaq 122. Baseline around 128-130 - diuretics held - 1500 cc fluid restriction - Improved to 125 today. - daily BMP (2) Decompensation of cirrhosis of liver: Code(s): K72.90 - Hepatic failure, unspecified without coma; K74.60 - Unspecified cirrhosis of liver Status: Acute Assessment and Plan: - with recurrent ascites - s/p paracentesis 02/05 with only 200cc removed and 02/08 with 4000cc removed. Fluid analysis not consistent with SBP - multiple admissions for recurrent ascites. Care coordination has confirmed set-up of outpatient paracentesis at [facility] next week with transportation. - follow-up with [place] [facility]ology for chronic management and assessment for transplantation. - continue lactulose and rifaximin in setting of history of hepatic encephalopathy (3) Abdominal pain: Code(s): R10.9 - Unspecified abdominal pain Status: Acute Assessment and Plan: - in setting of recurrent ascites - continue oxycodone (4) Pancytopenia: Code(s): D61.818 - Other pancytopenia Status: Acute Assessment and Plan: - in setting of cirrhosis - Hgb 9.3, Plts 100 - stable (5) Hypothyroidism: Code(s): E03.9 - Hypothyroidism, unspecified Status: Acute Assessment and Plan: - continue Synthroid (6) Tinea corporis: Code(s): B35.4 - Tinea corporis Status: Acute Assessment and Plan: - Patient had a rash on the skin overlying the left mastoid process prior to admission, notified us on 02/07/2025. Coalescing discoid maculopapular rashes. 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 Started miconazole cream b.i.d. and has since been improving. (7) Blepharitis: Code(s): H01.009 - Unspecified blepharitis unspecified eye, unspecified eyelid Status: Acute Assessment and Plan: - R eye crusting with mild hyperemia noted this AM - start erythromycin ointment, warm compress Plan DVT prophylaxis: SCDs Code status: full code Dispo: likely home tomorrow if Na continues to improve Subjective Date/time seen: 02/09/25 07:44 Interval history: Patient seen and examined at bedside. Complaining of eye drainage. Otherwise minimal complaints. Review of Systems Review of Systems: All systems reviewed & are unremarkable except as noted in HPI and below Exam Narrative: General: NAD Eyes: EOMI, R eye with crusting consistent with blepharitis ENT: neck supple Cardiovascular: Regular rate and rhythm Respiratory: Clear to auscultation, respirations even and unlabored on RA Gastrointestinal: mild distention, non tender Genitourinary: no suprapubic tenderness Musculoskeletal:BLE pitting edema, R>L Skin: warm, dry Neuro: Alert. Psych: Mood appropriate Objective Data Vital Signs Vital Signs: Vital Signs - 24 hr 02/08/25 08:00 02/08/25 08:15 02/08/25 14:00 Temperature 97.8 F Pulse Rate 80 Respiratory Rate 16 Blood Pressure 91/53 L Pulse Oximetry 98 96 97 Oxygen Delivery Nasal Cannula Nasal Cannula Oxygen Flow Rate 3 3 02/08/25 20:41 02/08/25 20:51 02/09/25 05:30 Temperature 97.3 F L 97.6 F Pulse Rate 75 84 Respiratory Rate 16 16 Blood Pressure 110/60 106/66 Pulse Oximetry 96 96 96 Oxygen Delivery Nasal Cannula Oxygen Flow Rate 3 Intake/Output Intake/Output: Intake & Output 02/06/25 02/07/25 02/08/25 02/09/25 23:59 23:59 23:59 23:59 Intake Total 1999 1034 1072 240 Output Total 350 4600 250 Balance 1999 684 -3528 -10 Meds/Results Medications: Active Medications Generic Name Dose Route Start Last Admin Trade Name Freq PRN Reason Stop Dose Admin Bumetanide 2 mg 02/05/25 11:50 02/08/25 11:32 Bumetanide 1 Mg Tablet PO Not Given On Hold: 02/08/25 16:37 DAILY [facility] Calcium Carbonate 200 mg 02/07/25 18:01 02/07/25 18:09 Calcium Carbonate (Tums) 500 Mg (200 Mg Elemental) PO 200 mg Q6H PRN Administration Indigestion Docusate Sodium 100 mg 02/05/25 11:47 Docusate Sodium 100 Mg Capsule PO BID PRN Constipation Folic Acid 1 mg 02/06/25 09:00 02/08/25 09:14 Folic Acid 1 Mg Tablet PO 1 mg DAILY [facility] Administration Lactulose 30 gm 02/05/25 12:00 02/09/25 05:30 Lactulose 20 Gm/30 Ml Udc PO 30 gm Q6HR [facility] Administration Levothyroxine Sodium 150 mcg 02/06/25 06:30 02/09/25 05:30 Levothyroxine Sodium 150 Mcg Tablet PO 150 mcg DAILY@0630 [facility] Administration Miconazole Nitrate 1 applic 02/07/25 18:00 02/08/25 20:47 Miconazole Nitrate 2% Cream 30 Gm Tube TOPICAL 1 applic Q12HR [facility] Administration Morphine Sulfate 2 mg 02/05/25 09:38 02/05/25 11:10 Morphine Sulfate (*Crx) 4 Mg/Ml Inj IV PUSH 2 mg Q4H PRN Administration Pain Rated 7-10 Oxycodone HCl 5 mg 02/05/25 11:47 02/09/25 05:41 Oxycodone Hcl (*Crx) 5 Mg Tab Ir PO 5 mg Q6H PRN Administration Pain7-10 Rifaximin 550 mg 02/05/25 17:00 02/08/25 16:19 Rifaximin 550 Mg Tablet PO 550 mg BID [facility] Administration Spironolactone 200 mg 02/05/25 11:50 02/08/25 11:32 Spironolactone 50 Mg Tablet PO Not Given On Hold: 02/08/25 16:37 DAILY [facility] Vitamin D 25 mcg 02/06/25 09:00 02/08/25 09:14 Cholecalciferol (Vitamin D3) 25 Mcg (1,000 Units) Tablet PO 25 mcg DAILY [facility] Administration Radiology Results: ITS Impressions Chest X-Ray 02/04/25 21:15 IMPRESSION: 1: NO ACUTE CARDIOPULMONARY DISEASE. Foot X-Ray 02/05/25 13:56 IMPRESSION: 1. No acute osseous abnormality. 2. Polyarticular osteoarthritis in the mid and forefoot, moderate at the first metatarsophalangeal joint and otherwise mild. Paracentesis Ultrasound 02/08/25 13:24 IMPRESSION: 1. Successful ultrasound-guided paracentesis yielding 4000 mL of straw-colored fluid. Labs Labs: Laboratory Results - last 24 hr 02/08/25 02/09/25 09:19 05:30 WBC 6.8 6.7 RBC 3.12 L 2.93 L Hgb 9.8 L 9.3 L Hct 30.1 L 28.2 L MCV 96.5 96.2 MCH 31.4 31.7 MCHC 32.6 33.0 RDW 17.8 H 17.8 H Plt Count 105 L 100 L MPV 10.1 9.6 Immature Gran % (Auto) 1.0 H Neut % (Auto) 55.0 Lymph % (Auto) 18.8 [place] % (Auto) 19.6 H Eos % (Auto) 4.0 Baso % (Auto) 1.6 H Lymph # (Auto) 1.28 [place] # (Auto) 1.3 H Eos # (Auto) 0.3 Baso # (Auto) 0.1 Abs Immat Gran (auto) 0.07 H Absolute Neuts (auto) 3.8 Absolute Nucleated RBC 0.000 Nucleated RBC % 0.0 Sodium 122 L 125 L Potassium 4.1 4.1 Chloride 95 L 96 L Carbon Dioxide 24 26 Anion Gap 3 L 3 L BUN 20 H 19 H Creatinine 0.90 0.98 Estim Creat Clear Calc 76 68 Estimated GFR > 60 59 Glucose 85 92 Calcium 8.0 L 7.9 L Magnesium 2.1 2.2 Total Bilirubin 3.1 H 2.5 H AST 41 H 41 H ALT 16 15 Alkaline Phosphatase 124 117 Total Protein 5.8 L 5.5 L Albumin 2.7 L 2.4 L Quality VTE Prophylaxis VTE prophylaxis: mechanical ordered
[2025-02-09 08:00] VITALS: O2SAT 96
[2025-02-09] MEDS: FOLIC ACID 1 MG TABLET PO (09:27)
[2025-02-09] MEDS: CHOLECALCIFEROL (VITAMIN D3) 25 MCG (1,000 UNITS) TABLET PO (09:27)
[2025-02-09] MEDS: MICONAZOLE NITRATE 2% CREAM 30 GM TUBE 1 APPLIC TOPICAL ×2 (09:28→20:13)
[2025-02-09 14:00] VITALS: BP 96/52; PULSE 93; RESP 18; TEMP 36.3; O2SAT 97
[2025-02-09] MEDS: ERYTHROMYCIN OPHTH OINTMENT 1 GM TUBE 1 APPLIC RIGHT EYE ×3 (14:52→20:13)
--- NOTE | 2025-02-09 17:10 | WPDGIPROGNO ---
Progress Note: A&P Assessment and Plan (1) Decompensation of cirrhosis of liver: Code(s): K72.90 - Hepatic failure, unspecified without coma; K74.60 - Unspecified cirrhosis of liver Status: Acute Assessment and Plan: ? 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 and lactulose- she is not confused now 2g na salt diet hopefully home tomorrow if na stable (2) Ascites: Qualifiers: Ascites type: other type Qualified Code(s): R18.8 - Other ascites Code(s): R18.8 - Other ascites Status: Acute Assessment and Plan: s/p paracentesis no sbp ideally tips but challenging because she has history of encephalopathy follow-up with hepatology team at [facility] (3) Abdominal pain: Code(s): R10.9 - Unspecified abdominal pain Status: Acute Assessment and Plan: chronic and unchanged (4) Thrombocytopenia: Code(s): D69.6 - Thrombocytopenia, unspecified Status: Chronic Assessment and Plan: from cirrhosis (5) Hyponatremia: Code(s): E87.1 - Hypo-osmolality and hyponatremia Status: Acute Subjective Date/time seen: 02/09/25 17:10 Interval history: no major changes Review of Systems Review of Systems: All systems reviewed & are unremarkable except as noted in HPI and below Exam Const: General: comfortable and no acute distress Other: A&O x3 HENMT: Mouth: Yes moist mucous membranes Eyes: Pupils: Equal, round and reactive pupils present Neck: Neck: supple Resp: Effort & Inspection: normal respiratory effort Auscultation: clear to auscultation bilaterally Cardio: Rate: regular rate Rhythm: regular rhythm GI: Inspection: distended GI Palp: No Guarding due to palpation present (GI) and Yes Hernia present umbilical Other: + fluid wave c/w ascites mild pain, no rebound Skin: General skin exam: normal color Neuro: Speech: normal speech Motor exam (neuro): 5/5 motor strength present throughout Extrem: General: edema (Rt>Lt) Psych: Mental Status: mental status grossly normal Objective Data Vital Signs Vital Signs: Vital Signs - 24 hr 02/08/25 20:41 02/08/25 20:51 02/09/25 05:30 Temperature 97.3 F L 97.6 F Pulse Rate 75 84 Respiratory Rate 16 16 Blood Pressure 110/60 106/66 Pulse Oximetry 96 96 96 Oxygen Delivery Nasal Cannula Oxygen Flow Rate 3 02/09/25 08:00 02/09/25 14:00 Temperature 97.3 F L Pulse Rate 93 Respiratory Rate 18 Blood Pressure 96/52 L Pulse Oximetry 96 97 Oxygen Delivery Nasal Cannula Oxygen Flow Rate 3 Intake/Output Intake/Output: Intake & Output 02/06/25 02/07/25 02/08/25 02/09/25 23:59 23:59 23:59 23:59 Intake Total 1999 1034 1072 660 Output Total 350 4600 250 Balance 1999 300 -9789 410 Meds/Results Medications: Active Medications Generic Name Dose Route Start Last Admin Trade Name Freq PRN Reason Stop Dose Admin Bumetanide 2 mg 02/05/25 11:50 02/08/25 11:32 Bumetanide 1 Mg Tablet PO Not Given On Hold: 02/08/25 16:37 DAILY [facility] Calcium Carbonate 200 mg 02/07/25 18:01 02/07/25 18:09 Calcium Carbonate (Tums) 500 Mg (200 Mg Elemental) PO 200 mg Q6H PRN Administration Indigestion Docusate Sodium 100 mg 02/05/25 11:47 Docusate Sodium 100 Mg Capsule PO BID PRN Constipation Erythromycin 1 applic 02/09/25 13:00 02/09/25 14:52 Erythromycin Ophth Ointment 1 Gm Tube RIGHT EYE 1 applic Q4HWA [facility] Administration Folic Acid 1 mg 02/06/25 09:00 02/09/25 09:27 Folic Acid 1 Mg Tablet PO 1 mg DAILY [facility] Administration Lactulose 30 gm 02/05/25 12:00 02/09/25 14:52 Lactulose 20 Gm/30 Ml Udc PO 30 gm Q6HR [facility] Administration Levothyroxine Sodium 150 mcg 02/06/25 06:30 02/09/25 05:30 Levothyroxine Sodium 150 Mcg Tablet PO 150 mcg DAILY@0630 [facility] Administration Miconazole Nitrate 1 applic 02/07/25 18:00 02/09/25 09:28 Miconazole Nitrate 2% Cream 30 Gm Tube TOPICAL 1 applic Q12HR [facility] Administration Oxycodone HCl 5 mg 02/05/25 11:47 02/09/25 14:57 Oxycodone Hcl (*Crx) 5 Mg Tab Ir PO 5 mg Q6H PRN Administration Pain7-10 Rifaximin 550 mg 02/05/25 17:00 02/09/25 09:27 Rifaximin 550 Mg Tablet PO 550 mg BID [facility] Administration Spironolactone 200 mg 02/05/25 11:50 02/08/25 11:32 Spironolactone 50 Mg Tablet PO Not Given On Hold: 02/08/25 16:37 DAILY [facility] Vitamin D 25 mcg 02/06/25 09:00 02/09/25 09:27 Cholecalciferol (Vitamin D3) 25 Mcg (1,000 Units) Tablet PO 25 mcg DAILY [facility] Administration Radiology Results: ITS Impressions Chest X-Ray 02/04/25 21:15 IMPRESSION: 1: NO ACUTE CARDIOPULMONARY DISEASE. Foot X-Ray 02/05/25 13:56 IMPRESSION: 1. No acute osseous abnormality. 2. Polyarticular osteoarthritis in the mid and forefoot, moderate at the first metatarsophalangeal joint and otherwise mild. Paracentesis Ultrasound 02/08/25 13:24 IMPRESSION: 1. Successful ultrasound-guided paracentesis yielding 4000 mL of straw-colored fluid. Labs Labs: Laboratory Results - last 24 hr 02/09/25 05:30 WBC 6.7 RBC 2.93 L Hgb 9.3 L Hct 28.2 L MCV 96.2 MCH 31.7 MCHC 33.0 RDW 17.8 H Plt Count 100 L MPV 9.6 Sodium 125 L Potassium 4.1 Chloride 96 L Carbon Dioxide 26 Anion Gap 3 L BUN 19 H Creatinine 0.98 Estim Creat Clear Calc 68 Estimated GFR 59 Glucose 92 Calcium 7.9 L Magnesium 2.2 Total Bilirubin 2.5 H AST 41 H ALT 15 Alkaline Phosphatase 117 Total Protein 5.5 L Albumin 2.4 L
[2025-02-09 18:19] VITALS: O2SAT 95
[2025-02-09 20:57] VITALS: O2SAT 96
[2025-02-09 21:25] VITALS: BP 122/66; PULSE 94; RESP 18; TEMP 36.3; O2SAT 95
[2025-02-10 05:20] VITALS: PULSE 81; RESP 16; TEMP 36.2; O2SAT 97
[2025-02-10 05:37] VITALS: BP 118/64
[2025-02-10] MEDS: LACTULOSE 20 GM/30 ML UDC 30 GM PO ×2 (05:39→23:10)
[2025-02-10] MEDS: LEVOTHYROXINE SODIUM 150 MCG TABLET PO (05:39)
[2025-02-10] MEDS: ERYTHROMYCIN OPHTH OINTMENT 1 GM TUBE 1 APPLIC RIGHT EYE ×4 (05:39→17:05)
[2025-02-10 05:51] LABS: Hematocrit 30.4 % (37.0-47.0); Hemoglobin 9.8 g/dL (12.0-15.0); Immature Granulocyte Percent A 0.6 % (0-0.5); Lymphocytes Absolute Auto 1.43 K/mm3 (0.9-3.2); Mean Corpuscular HGB Conc 32.2 g/dl (32-36); Mean Corpuscular Hemoglobin 31.5 pg (26-34); Mean Corpuscular Volume 97.7 fl (80-100); Nucleated Red Blood Cells Absolute Auto 0.000 K/mm3 (0.0-0.012); Nucleated Red Blood Cells Perc 0.0 % (0.0-0.2); Platelet Count Result 115 k/mm3 (150-375); Red Blood Count 3.11 M/mm3 (4.2-5.4); White Blood Count 6.6 K/mm3 (4.5-10.0)
[2025-02-10 06:13] LABS: Alanine Aminotransferase 17 U/L (6-35); Albumin Level 2.6 g/dL (3.5-5.1); Alkaline Phosphatase 132 U/L (38-126); Anion Gap 4 mmol/L (4-12); Aspartate Amino Transferase 40 U/L (14-36); Bilirubin,Total 2.3 mg/dL (0.2-1.3); Blood Urea Nitrogen 17 mg/dL (7-17); Calcium 8.1 mg/dL (8.4-10.2); Carbon Dioxide 25 mmol/L (22-30); Chloride 97 mmol/L (98-107); Estimated CRCL calculation 78 ml/min; Estimated Glomerular Filt Rate > 60; Glucose 94 mg/dL (65-110); Potassium 3.9 mmol/L (3.4-5.0); Sodium 126 mmol/L (137-145); Total Protein 5.7 g/dL (6.3-8.2)
--- NOTE | 2025-02-10 07:48 | P.PNIM_ITS ---
Progress Note: A&P Assessment and Plan (1) Hyponatremia: Code(s): E87.1 - Hypo-osmolality and hyponatremia Status: Acute Assessment and Plan: - acute on chronic - Na shaq 122. Baseline around 128-130 - diuretics held - 1500 cc fluid restriction - Improved to 126 today. Restart diuretics and monitor response. - daily BMP (2) Decompensation of cirrhosis of liver: Code(s): K72.90 - Hepatic failure, unspecified without coma; K74.60 - Unspecified cirrhosis of liver Status: Acute Assessment and Plan: - with recurrent ascites - s/p paracentesis 02/05 with only 200cc removed and 02/08 with 4000cc removed. Fluid analysis not consistent with SBP - multiple admissions for recurrent ascites. Care coordination has confirmed set-up of outpatient paracentesis at [facility] next week with transportation. - follow-up with [place] [facility]ology for chronic management and assessment for transplantation. - continue lactulose and rifaximin in setting of history of hepatic encephalopathy (3) Abdominal pain: Code(s): R10.9 - Unspecified abdominal pain Status: Acute Assessment and Plan: - in setting of recurrent ascites - continue oxycodone (4) Pancytopenia: Code(s): D61.818 - Other pancytopenia Status: Acute Assessment and Plan: - in setting of cirrhosis - Hgb 9.3, Plts 100 - stable (5) Hypothyroidism: Code(s): E03.9 - Hypothyroidism, unspecified Status: Acute Assessment and Plan: - continue Synthroid (6) Tinea corporis: Code(s): B35.4 - Tinea corporis Status: Acute Assessment and Plan: - Patient had a rash on the skin overlying the left mastoid process prior to admission, notified us on 02/07/2025. Coalescing discoid maculopapular rashes. 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 Started miconazole cream b.i.d. and has since been improving. (7) Blepharitis: Code(s): H01.009 - Unspecified blepharitis unspecified eye, unspecified eyelid Status: Acute Assessment and Plan: - R eye crusting with mild hyperemia noted 02/09 - start erythromycin ointment, warm compress - improved today Plan DVT prophylaxis: SCDs Code status: full code Dispo: likely home tomorrow if Na continues to improve Subjective Date/time seen: 02/10/25 07:48 Interval history: Patient seen and examined at bedside. Feeling okay today. Has some mild abdominal distention. Eye crusting is improved. Review of Systems Review of Systems: All systems reviewed & are unremarkable except as noted in HPI and below Exam Narrative: General: NAD Eyes: EOMI, R eye with crusting consistent with blepharitis ENT: neck supple Cardiovascular: Regular rate and rhythm Respiratory: Clear to auscultation, respirations even and unlabored on RA Gastrointestinal: mild distention, non tender Genitourinary: no suprapubic tenderness Musculoskeletal:BLE pitting edema, R>L Skin: warm, dry Neuro: Alert. Psych: Mood appropriate Objective Data Vital Signs Vital Signs: Vital Signs - 24 hr 02/09/25 08:00 02/09/25 14:00 02/09/25 18:19 Temperature 97.3 F L Pulse Rate 93 Respiratory Rate 18 Blood Pressure 96/52 L Pulse Oximetry 96 97 95 Oxygen Delivery Nasal Cannula Nasal Cannula Oxygen Flow Rate 3 3 02/09/25 20:57 02/09/25 21:25 02/10/25 05:20 Temperature 97.4 F L 97.2 F L Pulse Rate 94 81 Respiratory Rate 18 16 Blood Pressure 122/66 Pulse Oximetry 96 95 97 Oxygen Delivery Nasal Cannula Oxygen Flow Rate 3 02/10/25 05:37 Temperature Pulse Rate Respiratory Rate Blood Pressure 118/64 Pulse Oximetry Oxygen Delivery Oxygen Flow Rate Intake/Output Intake/Output: Intake & Output 02/07/25 02/08/25 02/09/25 02/10/25 23:59 23:59 23:59 23:59 Intake Total 1034 1072 1170 390 Output Total 350 4600 250 Balance 664 -3955 920 390 Meds/Results Medications: Active Medications Generic Name Dose Route Start Last Admin Trade Name Freq PRN Reason Stop Dose Admin Bumetanide 2 mg 02/05/25 11:50 02/08/25 11:32 Bumetanide 1 Mg Tablet PO Not Given DAILY [facility] Calcium Carbonate 200 mg 02/07/25 18:01 02/07/25 18:09 Calcium Carbonate (Tums) 500 Mg (200 Mg Elemental) PO 200 mg Q6H PRN Administration Indigestion Docusate Sodium 100 mg 02/05/25 11:47 Docusate Sodium 100 Mg Capsule PO BID PRN Constipation Erythromycin 1 applic 02/09/25 13:00 02/10/25 05:39 Erythromycin Ophth Ointment 1 Gm Tube RIGHT EYE 1 applic Q4HWA [facility] Administration Folic Acid 1 mg 02/06/25 09:00 02/09/25 09:27 Folic Acid 1 Mg Tablet PO 1 mg DAILY [facility] Administration Lactulose 30 gm 02/05/25 12:00 02/10/25 05:39 Lactulose 20 Gm/30 Ml Udc PO 30 gm Q6HR LENNY Administration Levothyroxine Sodium 150 mcg 02/06/25 06:30 02/10/25 05:39 Levothyroxine Sodium 150 Mcg Tablet PO 150 mcg DAILY@0630 [facility] Administration Miconazole Nitrate 1 applic 02/07/25 18:00 02/09/25 20:13 Miconazole Nitrate 2% Cream 30 Gm Tube TOPICAL 1 applic Q12HR [facility] Administration Oxycodone HCl 5 mg 02/05/25 11:47 02/09/25 14:57 Oxycodone Hcl (*Crx) 5 Mg Tab Ir PO 5 mg Q6H PRN Administration Pain7-10 Rifaximin 550 mg 02/05/25 17:00 02/09/25 17:11 Rifaximin 550 Mg Tablet PO 550 mg BID [facility] Administration Spironolactone 200 mg 02/05/25 11:50 02/08/25 11:32 Spironolactone 50 Mg Tablet PO Not Given DAILY [facility] Vitamin D 25 mcg 02/06/25 09:00 02/09/25 09:27 Cholecalciferol (Vitamin D3) 25 Mcg (1,000 Units) Tablet PO 25 mcg DAILY [facility] Administration Radiology Results: ITS Impressions Chest X-Ray 02/04/25 21:15 IMPRESSION: 1: NO ACUTE CARDIOPULMONARY DISEASE. Foot X-Ray 02/05/25 13:56 IMPRESSION: 1. No acute osseous abnormality. 2. Polyarticular osteoarthritis in the mid and forefoot, moderate at the first metatarsophalangeal joint and otherwise mild. Paracentesis Ultrasound 02/08/25 13:24 IMPRESSION: 1. Successful ultrasound-guided paracentesis yielding 4000 mL of straw-colored fluid. Labs Labs: Laboratory Results - last 24 hr 02/10/25 05:18 WBC 6.6 RBC 3.11 L Hgb 9.8 L Hct 30.4 L MCV 97.7 MCH 31.5 MCHC 32.2 RDW 18.1 H Plt Count 115 L MPV 9.7 Immature Gran % (Auto) 0.6 H Neut % (Auto) 53.3 Lymph % (Auto) 21.7 [place] % (Auto) 19.5 H Eos % (Auto) 3.5 Baso % (Auto) 1.4 H Lymph # (Auto) 1.43 [place] # (Auto) 1.3 H Eos # (Auto) 0.2 Baso # (Auto) 0.1 Abs Immat Gran (auto) 0.04 H Absolute Neuts (auto) 3.5 Absolute Nucleated RBC 0.000 Nucleated RBC % 0.0 Sodium 126 L Potassium 3.9 Chloride 97 L Carbon Dioxide 25 Anion Gap 4 BUN 17 Creatinine 0.86 Estim Creat Clear Calc 78 Estimated GFR > 60 Glucose 94 Calcium 8.1 L Total Bilirubin 2.3 H AST 40 H ALT 17 Alkaline Phosphatase 132 H Total Protein 5.7 L Albumin 2.6 L Quality VTE Prophylaxis VTE prophylaxis: mechanical ordered
[2025-02-10 08:00] VITALS: O2SAT 94
[2025-02-10] MEDS: SPIRONOLACTONE 50 MG TABLET 200 MG PO (09:25)
[2025-02-10] MEDS: FOLIC ACID 1 MG TABLET PO (09:25)
[2025-02-10] MEDS: CHOLECALCIFEROL (VITAMIN D3) 25 MCG (1,000 UNITS) TABLET PO (09:25)
[2025-02-10] MEDS: MICONAZOLE NITRATE 2% CREAM 30 GM TUBE 1 APPLIC TOPICAL ×2 (09:25→20:29)
[2025-02-10] MEDS: BUMETANIDE 1 MG TABLET 2 MG PO (09:25)
[2025-02-10 14:00] VITALS: BP 100/55; PULSE 90; RESP 18; TEMP 36.2; O2SAT 94
--- NOTE | 2025-02-10 14:41 | P.PNGI_ITS ---
Progress Note: A&P Assessment and Plan (1) Decompensation of cirrhosis of liver: Code(s): K72.90 - Hepatic failure, unspecified without coma; K74.60 - Unspecified cirrhosis of liver Status: Acute Assessment and Plan: ? 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- she is not confused now 2g na salt diet will follow as needed, hopefully home tomorrow (2) Ascites: Qualifiers: Ascites type: other type Qualified Code(s): R18.8 - Other ascites Code(s): R18.8 - Other ascites Status: Acute Assessment and Plan: s/p paracentesis no sbp ideally tips but challenging because she has history of encephalopathy follow-up with hepatology team at [facility] (3) Abdominal pain: Code(s): R10.9 - Unspecified abdominal pain Status: Acute Assessment and Plan: chronic and unchanged (4) Thrombocytopenia: Code(s): D69.6 - Thrombocytopenia, unspecified Status: Chronic Assessment and Plan: from cirrhosis (5) Hyponatremia: Code(s): E87.1 - Hypo-osmolality and hyponatremia Status: Acute Subjective Date/time seen: 02/10/25 14:41 Interval history: less abdominal pain today and more comfortable diuretics resumed Review of Systems Review of Systems: All systems reviewed & are unremarkable except as noted in HPI and below Exam Const: General: comfortable and no acute distress Other: A&O x3 HENMT: Mouth: Yes moist mucous membranes Eyes: Pupils: Equal, round and reactive pupils present Neck: Neck: supple Resp: Effort & Inspection: normal respiratory effort Auscultation: clear to auscultation bilaterally Cardio: Rate: regular rate Rhythm: regular rhythm GI: Inspection: distended GI Palp: No Guarding due to palpation present (GI) and Yes Hernia present umbilical Other: + fluid wave c/w ascites mild pain, no rebound Skin: General skin exam: normal color Neuro: Speech: normal speech Motor exam (neuro): 5/5 motor strength present throughout Extrem: General: edema (Rt>Lt) Psych: Mental Status: mental status grossly normal Objective Data Vital Signs Vital Signs: Vital Signs - 24 hr 02/09/25 18:19 02/09/25 20:57 02/09/25 21:25 Temperature 97.4 F L Pulse Rate 94 Respiratory Rate 18 Blood Pressure 122/66 Pulse Oximetry 95 96 95 Oxygen Delivery Nasal Cannula Nasal Cannula Oxygen Flow Rate 3 3 02/10/25 05:20 02/10/25 05:37 Temperature 97.2 F L Pulse Rate 81 Respiratory Rate 16 Blood Pressure 118/64 Pulse Oximetry 97 Oxygen Delivery Oxygen Flow Rate Intake/Output Intake/Output: Intake & Output 02/07/25 02/08/25 02/09/25 02/10/25 23:59 23:59 23:59 23:59 Intake Total 1034 1072 1170 628 Output Total 350 4600 250 Balance 344 -3743 928 628 Meds/Results Medications: Active Medications Generic Name Dose Route Start Last Admin Trade Name Freq PRN Reason Stop Dose Admin Bumetanide 2 mg 02/05/25 11:50 02/10/25 09:25 Bumetanide 1 Mg Tablet PO 2 mg DAILY [facility] Administration Calcium Carbonate 200 mg 02/07/25 18:01 02/07/25 18:09 Calcium Carbonate (Tums) 500 Mg (200 Mg Elemental) PO 200 mg Q6H PRN Administration Indigestion Docusate Sodium 100 mg 02/05/25 11:47 Docusate Sodium 100 Mg Capsule PO BID PRN Constipation Erythromycin 1 applic 02/09/25 13:00 02/10/25 13:35 Erythromycin Ophth Ointment 1 Gm Tube RIGHT EYE 1 applic Q4HWA [facility] Administration Folic Acid 1 mg 02/06/25 09:00 02/10/25 09:25 Folic Acid 1 Mg Tablet PO 1 mg DAILY [facility] Administration Lactulose 30 gm 02/05/25 12:00 02/10/25 13:35 Lactulose 20 Gm/30 Ml Udc PO Not Given Q6HR [facility] Levothyroxine Sodium 150 mcg 02/06/25 06:30 02/10/25 05:39 Levothyroxine Sodium 150 Mcg Tablet PO 150 mcg DAILY@0630 [facility] Administration Miconazole Nitrate 1 applic 02/07/25 18:00 02/10/25 09:25 Miconazole Nitrate 2% Cream 30 Gm Tube TOPICAL 1 applic Q12HR [facility] Administration Oxycodone HCl 5 mg 02/05/25 11:47 02/09/25 14:57 Oxycodone Hcl (*Crx) 5 Mg Tab Ir PO 5 mg Q6H PRN Administration Pain7-10 Rifaximin 550 mg 02/05/25 17:00 02/10/25 09:25 Rifaximin 550 Mg Tablet PO 550 mg BID [facility] Administration Spironolactone 200 mg 02/05/25 11:50 02/10/25 09:25 Spironolactone 50 Mg Tablet PO 200 mg DAILY [facility] Administration Vitamin D 25 mcg 02/06/25 09:00 02/10/25 09:25 Cholecalciferol (Vitamin D3) 25 Mcg (1,000 Units) Tablet PO 25 mcg DAILY [facility] Administration Radiology Results: ITS Impressions Chest X-Ray 02/04/25 21:15 IMPRESSION: 1: NO ACUTE CARDIOPULMONARY DISEASE. Foot X-Ray 02/05/25 13:56 IMPRESSION: 1. No acute osseous abnormality. 2. Polyarticular osteoarthritis in the mid and forefoot, moderate at the first metatarsophalangeal joint and otherwise mild. Paracentesis Ultrasound 02/08/25 13:24 IMPRESSION: 1. Successful ultrasound-guided paracentesis yielding 4000 mL of straw-colored fluid. Labs Labs: Laboratory Results - last 24 hr 02/10/25 05:18 WBC 6.6 RBC 3.11 L Hgb 9.8 L Hct 30.4 L MCV 97.7 MCH 31.5 MCHC 32.2 RDW 18.1 H Plt Count 115 L MPV 9.7 Immature Gran % (Auto) 0.6 H Neut % (Auto) 53.3 Lymph % (Auto) 21.7 [place] % (Auto) 19.5 H Eos % (Auto) 3.5 Baso % (Auto) 1.4 H Lymph # (Auto) 1.43 [place] # (Auto) 1.3 H Eos # (Auto) 0.2 Baso # (Auto) 0.1 Abs Immat Gran (auto) 0.04 H Absolute Neuts (auto) 3.5 Absolute Nucleated RBC 0.000 Nucleated RBC % 0.0 Sodium 126 L Potassium 3.9 Chloride 97 L Carbon Dioxide 25 Anion Gap 4 BUN 17 Creatinine 0.86 Estim Creat Clear Calc 78 Estimated GFR > 60 Glucose 94 Calcium 8.1 L Total Bilirubin 2.3 H AST 40 H ALT 17 Alkaline Phosphatase 132 H Total Protein 5.7 L Albumin 2.6 L
[2025-02-10 20:00] VITALS: O2SAT 96
[2025-02-10 20:27] VITALS: BP 104/50; PULSE 85; RESP 20; TEMP 37.1; O2SAT 96
[2025-02-10] MEDS: oxyCODONE HCL (*CRX) 5 MG TAB IR PO (20:29)
[2025-02-11 05:28] VITALS: BP 101/58; PULSE 78; RESP 18; TEMP 36.8; O2SAT 94
[2025-02-11] MEDS: LACTULOSE 20 GM/30 ML UDC 30 GM PO ×2 (05:32→12:50)
[2025-02-11] MEDS: LEVOTHYROXINE SODIUM 150 MCG TABLET PO (05:32)
[2025-02-11] MEDS: ERYTHROMYCIN OPHTH OINTMENT 1 GM TUBE 1 APPLIC RIGHT EYE (05:32)
[2025-02-11 06:08] LABS: Hematocrit 29.7 % (37.0-47.0); Hemoglobin 9.6 g/dL (12.0-15.0); Immature Granulocyte Percent A 0.6 % (0-0.5); Lymphocytes Absolute Auto 1.18 K/mm3 (0.9-3.2); Mean Corpuscular HGB Conc 32.3 g/dl (32-36); Mean Corpuscular Hemoglobin 31.6 pg (26-34); Mean Corpuscular Volume 97.7 fl (80-100); Nucleated Red Blood Cells Absolute Auto 0.000 K/mm3 (0.0-0.012); Nucleated Red Blood Cells Perc 0.0 % (0.0-0.2); Platelet Count Result 107 k/mm3 (150-375); Red Blood Count 3.04 M/mm3 (4.2-5.4); White Blood Count 6.2 K/mm3 (4.5-10.0)
[2025-02-11 06:36] LABS: Alanine Aminotransferase 16 U/L (6-35); Albumin Level 2.4 g/dL (3.5-5.1); Alkaline Phosphatase 122 U/L (38-126); Anion Gap 4 mmol/L (4-12); Aspartate Amino Transferase 40 U/L (14-36); Bilirubin,Total 2.7 mg/dL (0.2-1.3); Blood Urea Nitrogen 19 mg/dL (7-17); Calcium 7.9 mg/dL (8.4-10.2); Carbon Dioxide 24 mmol/L (22-30); Chloride 98 mmol/L (98-107); Estimated CRCL calculation 79 ml/min; Estimated Glomerular Filt Rate > 60; Glucose 80 mg/dL (65-110); Potassium 3.8 mmol/L (3.4-5.0); Sodium 126 mmol/L (137-145); Total Protein 5.4 g/dL (6.3-8.2)
[2025-02-11 08:00] VITALS: O2SAT 96
[2025-02-11] MEDS: BUMETANIDE 1 MG TABLET 2 MG PO (08:09)
[2025-02-11] MEDS: FOLIC ACID 1 MG TABLET PO (08:10)
[2025-02-11] MEDS: SPIRONOLACTONE 50 MG TABLET 200 MG PO (08:10)
[2025-02-11] MEDS: CHOLECALCIFEROL (VITAMIN D3) 25 MCG (1,000 UNITS) TABLET PO (08:10)
--- NOTE | 2025-02-11 09:24 | PCNWS ---
Weekly nutritional screen. Patient is tolerating current 2gm NA diet, 1500ml fluid restriction with adequate intake 75-100% all meals. No nutritional recommendations at this time.
--- NOTE | 2025-02-11 11:36 | P.DS_ITS ---
DS: Admitting Diagnosis Discharge Date 02/11/25 Admitting Diagnosis - recurrent ascites - decompensated cirrhosis - blepharitis - hyponatremia - hypothyroidism DS: Discharge Diagnosis Discharge Diagnosis (1) Hyponatremia: Code(s): E87.1 - Hypo-osmolality and hyponatremia Status: Acute (2) Decompensation of cirrhosis of liver: Code(s): K72.90 - Hepatic failure, unspecified without coma; K74.60 - Unspecified cirrhosis of liver Status: Acute (3) Abdominal pain: Code(s): R10.9 - Unspecified abdominal pain Status: Acute (4) Pancytopenia: Code(s): D61.818 - Other pancytopenia Status: Acute (5) Hypothyroidism: Code(s): E03.9 - Hypothyroidism, unspecified Status: Acute (6) Tinea corporis: Code(s): B35.4 - Tinea corporis Status: Acute (7) Blepharitis: Code(s): H01.009 - Unspecified blepharitis unspecified eye, unspecified eyelid Status: Acute DS: Summary Hospital Course Reason for hospitalization: - recurrent ascites - decompensated cirrhosis - blepharitis - hyponatremia - hypothyroidism Hospital Course: The patient is a 54-year-old female with a history of cirrhosis secondary to BACON, portal hypertension, chronic respiratory failure on home oxygen, hypothyroidism, and prior hepatic encephalopathy, who was admitted for recurrent, symptomatic ascites. She initially presented to the emergency department with abdominal pain, distension, and shortness of breath. A limited paracentesis was performed in the ED with removal of only 200 cc of fluid due to technical difficulties. She was subsequently admitted and underwent a successful ultrasound-guided large volume paracentesis with removal of 4000 mL of straw- colored fluid. Ascitic fluid analysis was negative for spontaneous bacterial peritonitis. During her hospitalization, she developed worsening hyponatremia with a shaq sodium of 122 mmol/L, prompting temporary discontinuation of diuretics and initiation of a 1500 cc fluid restriction. Her sodium improved to 126 mmol/L, at which point diuretics were resumed. On the day of discharge, her sodium remained at 126 mmol/L. The case was discussed with on-call nephrology, who recommended continuation of an 1800 cc fluid restriction and a 2-gram sodium diet. She was continued on bumetanide 2 mg daily and spironolactone 200 mg daily, with close monitoring of electrolytes. Outpatient paracentesis and hepatology follow-up at [facility] were arranged, including repeat laboratory monitoring. She was also continued on erythromycin ophthalmic ointment for a right eye blepharitis/conjunctivitis, with instructions to follow up with ophthalmology as an outpatient to screen for thyroid eye disease. Her abdominal pain and distension improved with therapy, and she remained hemodynamically stable throughout her stay. She was discharged home in stable condition with appropriate follow-up and medication instructions. Patient remains high risk for readmission due to questionable compliance with medical therapy and loss to follow-up with tertiary care. Patient was strongly encouraged to keep all follow-up appointments as scheduled. Status at Discharge Functional status at discharge: independent ambulation Overall status at discharge: patient is back to baseline Time Spent with Patient Time attestation: Total time spent providing and/or coordinating discharge services: Time spent: Greater than 30 minutes Exam Narrative: General: NAD Eyes: EOMI, R eye with crusting consistent with blepharitis ENT: neck supple Cardiovascular: Regular rate and rhythm Respiratory: Clear to auscultation, respirations even and unlabored on RA Gastrointestinal: mild distention, non tender Genitourinary: no suprapubic tenderness Musculoskeletal:BLE pitting edema Skin: warm, dry Neuro: Alert. Psych: Mood appropriate DS: Data Data Completed and Pending Completed studies during hospitalization: ITS Impressions Chest X-Ray 02/04/25 21:15 IMPRESSION: 1: NO ACUTE CARDIOPULMONARY DISEASE. Foot X-Ray 02/05/25 13:56 IMPRESSION: 1. No acute osseous abnormality. 2. Polyarticular osteoarthritis in the mid and forefoot, moderate at the first metatarsophalangeal joint and otherwise mild. Paracentesis Ultrasound 02/05/25 14:32 IMPRESSION: 1. Successful ultrasound-guided paracentesis yielding 4750 mL of fidencio-colored fluid. Paracentesis Ultrasound 02/08/25 13:24 IMPRESSION: 1. Successful ultrasound-guided paracentesis yielding 4000 mL of straw-colored fluid. Labs on day of discharge: Labs from last 24 hours 02/11/25 05:10 WBC 6.2 RBC 3.04 L Hgb 9.6 L Hct 29.7 L MCV 97.7 MCH 31.6 MCHC 32.3 RDW 18.1 H Plt Count 107 L MPV 9.9 Immature Gran % (Auto) 0.6 H Neut % (Auto) 55.2 Lymph % (Auto) 19.0 [place] % (Auto) 21.4 H Eos % (Auto) 2.7 Baso % (Auto) 1.1 Lymph # (Auto) 1.18 [place] # (Auto) 1.3 H Eos # (Auto) 0.2 Baso # (Auto) 0.1 Abs Immat Gran (auto) 0.04 H Absolute Neuts (auto) 3.4 Absolute Nucleated RBC 0.000 Nucleated RBC % 0.0 Sodium 126 L Potassium 3.8 Chloride 98 Carbon Dioxide 24 Anion Gap 4 BUN 19 H Creatinine 0.85 Estim Creat Clear Calc 79 Estimated GFR > 60 Glucose 80 Calcium 7.9 L Total Bilirubin 2.7 H AST 40 H ALT 16 Alkaline Phosphatase 122 Total Protein 5.4 L Albumin 2.4 L Preliminary micro results at discharge 02/04/25 23:17 Anaerobic Culture Extend Incubation - Preliminary Ascites Fluid Discharge Plan Discharge Attending physician on discharge: Malcolm Lucia Consulting providers: Uziel Lloyd; Veronica Castaneda Discharging Clinician: Veronica Castaneda Anticipated Discharge Date/Time: 02/11/25 11:22 Patient Disposition: Home Activity: july shower Diet: regular Discharge Instructions: Per Care Coordination. Patient setup for outpatient paracentesis at [facility] 02/16/25 at 11am. Per Tiffanie Quintanilla with [facility] endoscopy [phone], they will arrange transport to pick you up from your father's home. Discharge Instructions: Cirrhosis with Recurrent Ascites and Hyponatremia Diagnosis: * Cirrhosis with recurrent ascites * Low sodium (hyponatremia) Diet and Fluid Restrictions: * Fluid restriction:?Limit total fluid intake to?1800 cc (1.8 liters) per day. This includes all beverages, soups, ice, and any liquid foods. * Sodium restriction:?Limit sodium intake to?2 grams (2000 mg) per day. Avoid adding salt to food and avoid high-sodium foods such as canned soups, processed foods, deli meats, salty snacks, and restaurant/fast food. Medications: * Take all medications as prescribed. * If you are on diuretics (such as furosemide or spironolactone), take them as directed and monitor for side effects (dizziness, muscle cramps, confusion). Follow-Up Appointments: * Outpatient paracentesis?is scheduled for?02/16. * Arrange for?repeat blood work?(including sodium and kidney function tests) with your liver doctor at [facility] as instructed. When to Seek Medical Attention: * Increasing abdominal swelling or pain * Shortness of breath * Confusion, difficulty waking up, or severe drowsiness * Severe muscle cramps or weakness * Vomiting blood or black, tarry stools * Decreased urination Additional Instructions: * Weigh yourself daily and keep a log. Notify your provider if you gain more than 5 pounds in a week. * Avoid alcohol completely. * Avoid NSAIDs (such as ibuprofen, naproxen) unless specifically approved. * Keep all follow-up appointments. Contact Information: * If you have questions or concerns, contact your liver doctor or primary care provider. Summary: You are being discharged with instructions to restrict your fluid and sodium intake to help manage your ascites and low sodium. You have a paracentesis scheduled and need follow-up blood work with your liver doctor at [facility]. Please follow the above instructions and monitor for any concerning symptoms. Continue antibiotics for eye infection. You should see an enterer to screen for thyroid eye disease. Patient Instructions: Antibiotic Form Patient Language: Setswana Stand Alone Forms: General Discharge Information Follow-up/Referrals: Agbim,MD Caio [Primary Care Provider, Unknown] - Call for Appointment Referral Note: call for an appointment in 1 week Hill,Valentino Haines MD [Non-Staff, Opthalmology] - Call for Appointment Referral Note: screen for thyroid eye disease Discharge Medications: New erythromycin 5 mg/gram (0.5 %) ointment 1 applic RIGHT EYE QID 5 Days Qty: 3.5 0RF miconazole nitrate 2 % Cream 1 applic topical Q12HR 5 Days Qty: 14 0RF Rx Instructions: apply behind left ear Continued spironolactone [Aldactone] 100 mg tablet 200 mg PO DAILY 30 Days Qty: 30 0RF bumetanide 1 mg Tablet 2 mg PO DAILY 90 Days Qty: 180 0RF oxycodone 5 mg tablet 5 mg PO Q6H PRN (Reason: pain) 3 Days Qty: 12 0RF docusate sodium 100 mg Capsule 100 mg PO BID PRN (Reason: Constipation) 90 Days Qty: 90 0RF folic acid 1 mg Tablet 1 mg PO DAILY 90 Days Qty: 90 0RF pantoprazole 40 mg Tablet,Delayed Release (Dr/Ec) 40 mg PO Q12HR 90 Days Qty: 180 0RF cholecalciferol (vitamin D3) 25 mcg (1,000 unit) Tablet 25 mcg PO DAILY 90 Days Qty: 90 0RF oxycodone 5 mg tablet 5 mg PO Q6H PRN (Reason: pain) Qty: 12 0RF levothyroxine [Synthroid] 150 mcg tablet 150 mcg PO DAILY Qty: 30 0RF Xifaxan 550 mg Tablet 550 mg PO BID 90 Days Qty: 180 0RF lactulose 10 gram/15 mL Solution 30 g PO Q6H 30 Days Qty: 3600 0RF Date of admission: 02/07/25 16:12 Primary Care Provider: Sue,Caio Admitting Provider: Elizabeth Glasgow Attending physician on admission: Elizabeth Glasgow Condition: Stable
--- NOTE | 2025-02-11 16:06 | WPDGIPROGNO ---
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 and lactulose- she is not confused now 2g na salt diet (2) Ascites: Qualifiers: Ascites type: other type Qualified Code(s): R18.8 - Other ascites Code(s): R18.8 - Other ascites Status: Acute Assessment and Plan: s/p paracentesis no sbp ideally tips but challenging because she has history of encephalopathy follow-up with hepatology team at [facility] (3) Abdominal pain: Code(s): R10.9 - Unspecified abdominal pain Status: Acute Assessment and Plan: chronic and unchanged (4) Thrombocytopenia: Code(s): D69.6 - Thrombocytopenia, unspecified Status: Chronic Assessment and Plan: from cirrhosis (5) Hyponatremia: Code(s): E87.1 - Hypo-osmolality and hyponatremia Status: Acute Subjective Date/time seen: 02/11/25 10:06 Interval history: more comfortable she is going home and will get paracentesis as outpatient as needed Review of Systems Review of Systems: All systems reviewed & are unremarkable except as noted in HPI and below Exam Const: General: comfortable and no acute distress Other: A&O x3 HENMT: Mouth: Yes moist mucous membranes Eyes: Pupils: Equal, round and reactive pupils present Neck: Neck: supple Resp: Effort & Inspection: normal respiratory effort Auscultation: clear to auscultation bilaterally Cardio: Rate: regular rate Rhythm: regular rhythm GI: Inspection: distended GI Palp: No Guarding due to palpation present (GI) and Yes Hernia present umbilical Other: + fluid wave c/w ascites mild pain, no rebound Skin: General skin exam: normal color Neuro: Speech: normal speech Motor exam (neuro): 5/5 motor strength present throughout Extrem: General: edema (Rt>Lt) Psych: Mental Status: mental status grossly normal Objective Data Vital Signs Vital Signs: Vital Signs - 24 hr 02/10/25 20:00 02/10/25 20:27 02/11/25 05:28 Temperature 98.8 F 98.2 F Pulse Rate 85 78 Respiratory Rate 20 18 Blood Pressure 104/50 L 101/58 L Pulse Oximetry 96 96 94 Oxygen Delivery Nasal Cannula Oxygen Flow Rate 3 02/11/25 08:00 Temperature Pulse Rate Respiratory Rate Blood Pressure Pulse Oximetry 96 Oxygen Delivery Nasal Cannula Oxygen Flow Rate 3 Intake/Output Intake/Output: Intake & Output 02/08/25 02/09/25 02/10/25 02/11/25 23:59 23:59 23:59 23:59 Intake Total 1072 1170 1072 990 Output Total 4600 250 Balance -3528 920 1072 990 Meds/Results Radiology Results: ITS Impressions Chest X-Ray 02/04/25 21:15 IMPRESSION: 1: NO ACUTE CARDIOPULMONARY DISEASE. Foot X-Ray 02/05/25 13:56 IMPRESSION: 1. No acute osseous abnormality. 2. Polyarticular osteoarthritis in the mid and forefoot, moderate at the first metatarsophalangeal joint and otherwise mild. Paracentesis Ultrasound 02/08/25 13:24 IMPRESSION: 1. Successful ultrasound-guided paracentesis yielding 4000 mL of straw-colored fluid. Labs Labs: Laboratory Results - last 24 hr 02/11/25 05:10 WBC 6.2 RBC 3.04 L Hgb 9.6 L Hct 29.7 L MCV 97.7 MCH 31.6 MCHC 32.3 RDW 18.1 H Plt Count 107 L MPV 9.9 Immature Gran % (Auto) 0.6 H Neut % (Auto) 55.2 Lymph % (Auto) 19.0 [place] % (Auto) 21.4 H Eos % (Auto) 2.7 Baso % (Auto) 1.1 Lymph # (Auto) 1.18 [place] # (Auto) 1.3 H Eos # (Auto) 0.2 Baso # (Auto) 0.1 Abs Immat Gran (auto) 0.04 H Absolute Neuts (auto) 3.4 Absolute Nucleated RBC 0.000 Nucleated RBC % 0.0 Sodium 126 L Potassium 3.8 Chloride 98 Carbon Dioxide 24 Anion Gap 4 BUN 19 H Creatinine 0.85 Estim Creat Clear Calc 79 Estimated GFR > 60 Glucose 80 Calcium 7.9 L Total Bilirubin 2.7 H AST 40 H ALT 16 Alkaline Phosphatase 122 Total Protein 5.4 L Albumin 2.4 L
== END 2025-02-11 14:25 | disposition home or self-care (01) | DRG 433 ==
LOC: ANHED 02-05 01:55 → ANH3MEDSUR 02-05 03:25
PROVIDERS: General Practice; Admitting Provider Internal Medicine; Emergency Provider Emergency Medicine; PCP Internal Medicine Gastroenterology; Visit Provider Physician Assistant
DX: K74.60 Unspecified cirrhosis of liver (principal); D61.818 Other pancytopenia; R18.8 Other ascites; E87.1 Hypo-osmolality and hyponatremia; J96.11 Chronic respiratory failure with hypoxia; K76.6 Portal hypertension; K75.81 Nonalcoholic steatohepatitis (NASH); E03.9 Hypothyroidism, unspecified; B35.4 Tinea corporis; H01.003 Unspecified blepharitis right eye, unspecified eyelid; D69.6 Thrombocytopenia, unspecified; Z99.81 Dependence on supplemental oxygen
CPT/HCPCS: 36415; 49083; 71045; 73630; 80053; 82040; 82042; 82150; 82945; 83615; 83735; 84157; 85025; 85027; 85055; 85610; 85730; 87205; 87637; 89051; 96374; 96375; 99285; A9270; G0378; J1171; J2270